=== PATIENT | female | born 1970 | race Caucasian/White ===

== ENCOUNTER 2018-04-11 07:35 | Outpatient (CLI) | payer OTHER, SELFPAY ==
[2018-04-11 08:09] LABS: Hemoglobin A1C 8.4 % (4.5-6.2)
[2018-04-11 08:32] LABS: ALT 43 U/L (12-78); AST 28 U/L (15-37); Albumin 3.4 g/dL (3.4-5.0); Alkaline Phosphatase 109 U/L (46-116); BUN 14 mg/dL (7-18); Bilirubin, Total 0.3 mg/dL (0.2-1.0); CREATININE 0.88 mg/dL (0.55-1.02); Calcium 8.9 mg/dL (8.5-10.1); Chloride 98 mmol/L (98-107); Glucose 243 mg/dL (70-100); Total Protein 7.5 g/dL (6.4-8.2)
[2018-04-11 08:52] LABS: Potassium 4.1 mmol/L (3.5-5.1); Sodium 135 mmol/L (136-145)
[2018-04-14 10:18] LABS: C-Peptide 6.6 ng/mL (1.1 - 4.4)
== END 2018-04-11 07:55 ==
PROVIDERS: PCP Family Medicine; Visit Provider Internal Medicine Endocrinology, Diabetes & Metabolism
DX: R73.9 Hyperglycemia, unspecified (principal)
CPT/HCPCS: 36415; 80053; 83036; 84681

== ENCOUNTER 2018-08-15 10:57 | Outpatient (CLI) | payer OTHER, SELFPAY ==
[2018-08-15 11:52] LABS: ALT 79 U/L (12-78); AST 50 U/L (15-37); Albumin 3.7 g/dL (3.4-5.0); Alkaline Phosphatase 113 U/L (46-116); Bilirubin, Direct 0.06 mg/dL (0.00-0.20); Bilirubin, Total 0.2 mg/dL (0.2-1.0); FREE T4 1.02 ng/dL (0.76-1.46); Glucose 228 mg/dL (70-100); TSH 3.98 uIU/mL (0.358-3.74); Total Protein 8.4 g/dL (6.4-8.2)
[2018-08-15 20:46] LABS: T3,Free 2.6 pg/ml (2.8-5.3)
== END 2018-08-15 11:17 ==
PROVIDERS: PCP Family Medicine; Visit Provider Internal Medicine Endocrinology, Diabetes & Metabolism
DX: E11.65 Type 2 diabetes mellitus with hyperglycemia (principal); E06.3 Autoimmune thyroiditis
CPT/HCPCS: 36415; 80076; 82947; 84439; 84443; 84481

== ENCOUNTER 2019-03-03 00:51 | Outpatient (CLI) | payer OTHER, SELFPAY ==
--- NOTE | 2019-03-03 16:00 | DI.MAMMO_ITS ---
EXAM: MAMMO SCREENING CLINICAL HISTORY: Screening, Z12.31. TECHNIQUE: Mammograms were interpreted according to the usual protocol including computer analysis w [employer] CAD system, tomosynthesis and C-view imaging. FINDINGS: The breasts are of moderate radiodensity. There are no suspicious calcifications. When compared with the previous examination, there is a question of interval development of a small area of nodularity in the lateral left breast. IMPRESSION: There is a question regarding interval development of a small left breast nodule. Further assessment with left breast craniocaudad compression spot film and ultrasound is recommended. This is a catego ry 0 examination and this case gets a BI-RADS category B.
== END 2019-03-03 01:11 ==
PROVIDERS: PCP Family Medicine; Visit Provider Nurse Practitioner Family
DX: Z12.31 Encounter for screening mammogram for malignant neoplasm of breast (principal); R92.8 Other abnormal and inconclusive findings on diagnostic imaging of breast
CPT/HCPCS: 77063; 77067

== ENCOUNTER 2019-03-10 01:15 | Outpatient (CLI) | payer OTHER, SELFPAY ==
--- NOTE | 2019-03-10 10:17 | DI.US_ITS ---
EXAM: US BREAST LT LIMITED CLINICAL HISTORY: ? INTERVAL DEVELOPMENT SMALL AREA OF NODULARITY IN LT BREAST. TECHNIQUE: Ultrasound was performed using standard protocol. COMPARISON: FINDINGS: Left breast mass or cyst is demonstrated.
--- NOTE | 2019-03-10 12:48 | DI.MAMMO_ITS ---
EXAM: MG MAMMO SCREEN CALL BACK UNI CLINICAL HISTORY: ? INTERVAL DEVELOPMENT SMALL AREA OF NODULARITY IN LT BREAST. TECHNIQUE: Additional images are interpreted according to the usual protocol including tomosynthesis and 2D imaging. COMPARISON: No exams were available for comparison FINDINGS: Compression spot films of the left breast demonstrate no definite mass. The patient was further eval uated with an ultrasound examination. Please see the separate report. IMPRESSION: BI-RADS Cat 1 - Negative Breast Density - Category B - Scattered areas of fibroglandular density
== END 2019-03-10 01:35 ==
PROVIDERS: PCP Family Medicine; Visit Provider Nurse Practitioner Family
DX: Z12.31 Encounter for screening mammogram for malignant neoplasm of breast (principal); R92.8 Other abnormal and inconclusive findings on diagnostic imaging of breast; N64.59 Other signs and symptoms in breast
CPT/HCPCS: 76642; 77063; 77067

== ENCOUNTER 2019-12-15 12:20 | Emergency (ER) | payer OTHER, SELFPAY ==
[2019-12-15] VITALS (25 sets, daily range): BP systolic 115–149; BP diastolic 74–93; PULSE 81–106; RESP 16; TEMP 36.4–36.7; O2SAT 94–98
--- NOTE | 2019-12-15 12:45 | DI.US_ITS ---
EXAM: US ABDOMEN CLINICAL HISTORY: ruq abd pain with guarding TECHNIQUE: Ultrasound abdomen performed using standard protocol. COMPARISON: No exams were available for comparison FINDINGS: ABDOMINAL AORTA AND IVC: Visualized portions normal caliber. PANCREAS: Normal where visualized. LIVER: Diffuse increased echogenicity consistent with fatty infiltration. The liver is enlarged juan diego uring 23 cm. Hepatopedal flow in the Portal Vein. GALLBLADDER: No evidence of cholelithiasis. No evidence of wall thickening. No pericholecystic fluid identified. BILIARY SYSTEM: Common bile duct measures 5 mm. No intrahepatic biliary ductal dilation. FLORES'S SIGN: Negative. KIDNEYS: Kidneys are symmetric in size. No evidence of renal calculi. No evidence of hydronephrosis. No renal mass or cyst identified. SPLEEN: Not enlarged. ASCITES: None seen. IMPRESSION: Hepatomegaly and hepatic steatosis. Findings were discussed with the emergency department on the date of the examination. DATA REPOSITORY:
--- NOTE | 2019-12-15 12:58 | ED.GENADUL_ITS ---
Discharge Plan Disposition Patient Disposition: HOME Condition: Stable Discharge Details Chief Complaint: Abd Prob Clinical Impression: Abdominal pain, Ovarian cyst, Fatty liver, Hyperglycemia Primary Care Provider: Leonor Hendricks ED Provider: Tomás Plata Home Meds and New Rx's Prescriptions: Continued metformin 1,000 mg tablet 1,000 mg PO BID RF: 0 Jardiance 25 mg tablet 25 mg PO DAILY RF: 0 Victoza 3-Bull 0.6 mg/0.1 mL (18 mg/3 mL) pen injector 0.6 mg SC DAILY RF: 0 Tremfya 100 mg/mL auto-injector 100 mg SC Q8W RF: 0 norethindrone acetate 5 mg tablet 5 mg PO DAILY Qty: 90 RF: 3 escitalopram oxalate [Lexapro] 10 MG tablet 10 mg PO DAILY RF: 0 Discharge Instructions Instructions: Ovarian Cyst (ED), Abdominal Pain (ED), Diabetic Hyperglycemia (ED) Additional Instructions: Your blood sugar was elevated today. Be sure to discuss this with your doctor. Please take ibuprofen over the counter. Take 600mg by mouth every 6 hours as needed for pain. Please take acetaminophen (tylenol) - 650mg every 6 hours by mouth as needed for pain. Please contact your primary care physician to arrange follow-up. Return to the ER for any worsening or new concerning symptoms. Referrals: Leonor Hendricks [Primary Care Provider] - Discharge Data Discharge Date/Time-TO BE ENTERED AT DEPARTURE: 12/15/19 18:18 Medical Decision Making 1300?? 48-year-old female here with worsening abdominal pain since last night. Tender right upper quadrant with guarding. No urinary symptoms. Concern for acute cholecystitis. Consider pancreatitis. Bedside lrrdi-gh-azid ultrasound performed by me and shows dilated gallbladder with no signs of stone. Plan to obtain official diagnostic abdominal ultrasound. We will check labs including LFTs and lipase. We will administer IV fluid bolus and Dilaudid 1 mg IV. --Labs reviewed and nondiagnostic. Ultrasound of the abdomen interpreted by radiology: Fatty liver, no acute cholecystitis. CT the abdomen pelvis interpreted by radiology:IMPRESSION: 1. Hepatomegaly and hepatic steatosis. 2. Bilateral ovarian cysts. 3. The findings were discussed with the emergency department on the date of the examination. Patient reassessed and pain improved. All results were discussed with the patient. Patient was encouraged to follow-up with her primary care physician. Disposition decision was made weighing the risks and benefits of hospitalization versus outpatient treatment, the risk for further decompensation, and the patient's wishes. The patient was stable and requested discharge. Prior to discharge, my usual and customary return precautions were reviewed with the patient - this included follow-up instructions and reason to return to the emergency department if condition worsens, does not improve as expected, or other new concerns arise. HPI General Mode of arrival: ambulatory . Date/Time Provider Initiated Documentation: 12/15/19 12:29 . Limitations to Documentation: no limitations . Information obtained by: patient . HPI Narrative: 48-year-old female with prior history of Misha's thyroiditis, psoriasis, presents with chief complaint of abdominal pain. Pain is localized to right upper quadrant and radiates to flank. Pain is severe. Worse with deep breath. Pain started last night and has worsened. Initially was described as an ache and now sharp. Patient denies similar pain in the past. No trauma. Related Data Home Medications Medication Instructions Recorded Confirmed escitalopram oxalate [Lexapro] 10 mg PO DAILY tab-cap 12/25/16 12/15/19 empagliflozin 25 mg tablet 25 mg PO DAILY 01/19/19 12/15/19 guselkumab 100 mg/mL subcutaneous 100 mg SC Q8W 01/19/19 12/15/19 auto-injector liraglutide 0.6 mg/0.1 mL (18 mg/3 0.6 mg SC DAILY 01/19/19 12/15/19 mL) subcutaneous pen injector metformin 1,000 mg tablet 1,000 mg PO BID 01/19/19 12/15/19 norethindrone acetate 5 mg tablet 5 mg PO DAILY #90 tab 01/19/19 12/15/19 Previous Rx's Medication Instructions Recorded norethindrone acetate 5 mg tablet 5 mg PO DAILY #90 tab 01/19/19 Allergies Allergy/AdvReac Type Severity Reaction Status Date / Time ustekinumab [From Stelara] AdvReac Intermediate tremor Verified 12/15/19 12:31 tachycardia General Stated Complaint: Abd Prob JEAN-PAUL: 3 Review of Systems All systems reviewed & are unremarkable except as noted in HPI and below Constitutional Constitutional: Denies fever(s) Gastrointestinal Gastrointestinal: Reports as per HPI, Reports diarrhea, Denies nausea and Denies vomiting [facility] Medical History Misha's thyroiditis Psoriasis Vaginal pain (Acute) 5 o'clock position left distal vaginal side wall. Rx with Premarin cream Family History Mother Hyperlipidemia Father Myocardial infarction Grandmother Myocardial infarction Social History Smoking/Tobacco Use Status: Former Tobacco Use Alcohol Intake: never Drug use: Never Substance use type: does not use Do you feel safe at home: Yes Do you feel safe in your relationship?: Yes History History 1 Para 1 Hx # Term Pregnancies Multiple births Hx # Pregnancies Ectopic pregnancies AB induced Hx Number of Living Children AB spontaneous Exam Const General: cooperative and uncomfortable Orientation: alert HENMT Mouth: moist mucous membranes Eyes Conjunctivae: normal conjunctivae Sclera: normal sclerae Neck Neck: trachea midline Resp Auscultation: clear to auscultation bilaterally, no rales, no rhonchi and no wheezes Cardio Jugular venous pressure: no JVD Rate: regular rate and not tachycardic Rhythm: regular rhythm GI Inspection: non-distended Palpation: soft, not firm, guarding in the RUQ, no masses, not rigid and tender in the RUQ Skin General skin exam: no rashes or lesions noted Neuro General: patient alert, patient awake and tone normal Extrem General: no edema Psych Appearance: grossly normal Mental Status: mental status grossly normal Course Vital Signs Vital signs: Vital Signs Temperature 36.6 C 12/15/19 12:27 Pulse 106 H 12/15/19 12:27 Respiratory Rate 16 12/15/19 12:27 Pulse Oximetry 98 12/15/19 12:27 Temperature 36.6 C 12/15/19 12:27 Temperature Source Tympanic 12/15/19 12:27 Pulse 106 H 12/15/19 12:27 Respiratory Rate 16 12/15/19 12:27 Blood Pressure Position Sitting 12/15/19 12:27 Pulse Oximetry 98 12/15/19 12:27 Oxygen Delivery Method Room Air 12/15/19 12:27 Oxygen Flow Rate 0 12/15/19 12:27 Pain Level 9 12/15/19 12:27
[2019-12-15 13:00] LABS: Abs Immature Grans 0.06 k/cumm (0.0-0.09); Absolute Basophil Count 0.04 k/cumm (0.0-0.2); Absolute Eosinophil Count 0.09 k/cumm (0.0-0.7); Absolute Lymphocyte Count 3.22 k/cumm (1.2-3.4); Absolute Monocyte Count 0.66 k/cumm (0.11-0.7); Absolute Neutrophil Count 6.71 k/cumm (1.2-6.7); Basophils % 0.4; Eosinophils % 0.8; HCT 45.5 % (36.0-46.0); HGB 15.3 g/dL (12.0-15.5); Immature Grans % 0.6 %; Lymphocytes % 29.9; Mean Corp. HGB Concentration 33.6 g/dL (32.0-36.0); Mean Corpuscular Hemoglobin 30.2 pg (27.0-33.0); Mean Corpuscular Volume 89.7 fL (80-95); Mean Platelet Volume 11.7 fL (8.0-11.0); Monocytes % 6.1; Neutrophils % 62.2; Platelet Count 258 x1000/uL (130-400); RBC 5.07 m/cumm (4.00-5.20); RBC Distribution Width 14.1 % (11.7-14.6); White Blood Cell Count 10.78 k/cumm (4.4-10.8)
[2019-12-15] MEDS: HYDROmorphone 2 MG/ML VIAL 1 MG IVP (13:01)
[2019-12-15 13:03] LABS: Bilirubin Negative (Negative); Blood Trace-intact (Negative); Clarity Clear (Clear); Glucose 500 mg/dL (Negative); Ketones Negative (Negative); Leukocyte Esterase Trace (Negative); Nitrite Negative (Negative); Urobilinogen 0.2 EU/dL (Up TO 0.2); pH 5.5 (5-8)
[2019-12-15] MEDS: Lactated Ringers 1,000 ML 1000 ML IV (13:04)
[2019-12-15 13:11] LABS: Alkaline Phosphatase 103 U/L (46-116); Anion Gap 11.5 mmol/L (3-11); BUN 11 mg/dL (7-18); Bilirubin, Total 0.3 mg/dL (0.2-1.0); CO2 24.5 mmol/L (21.0-32.0); CREATININE 0.79 mg/dL (0.55-1.02); Calcium 9.4 mg/dL (8.5-10.1); Chloride 96 mmol/L (98-107); Glucose 181 mg/dL (74-106); Lipase 273 U/L (73-393); Potassium 3.7 mmol/L (3.5-5.1); Sodium 132 mmol/L (136-145); Total Protein 8.8 g/dL (6.4-8.2)
[2019-12-15 13:17] LABS: C & S Indicated? No/Sq. Contamination
[2019-12-15 13:30] LABS: AST 16 U/L (15-37)
[2019-12-15 13:58] LABS: ALT 43 U/L (14-59)
[2019-12-15] MEDS: Normal Saline - Diluent 50 ML VIAL IV (15:35)
[2019-12-15] MEDS: Omnipaque 350 MG/ML 100 ML BTL IJ (15:36)
--- NOTE | 2019-12-15 15:37 | DI.CT_ITS ---
EXAM: CT ABDOMEN PELVIS W CLINICAL HISTORY: rt sided abd pain TECHNIQUE: Imaging Protocol: Axial computed tomography images with coronal and sagittal reformatted images were created and reviewed CONTRAST MATERIAL: Intravenous: Omnipaque 350 Contrast volume:100 mL Oral: No COMPARISON: CT ABD PELVIS WITH CONTRAST from 08/06/2016 FINDINGS: ABDOMEN: Lung Bases: Normal where visualized. Liver: Fatty infiltration. Enlarged liver measuring 25 cm in length. No measurable mass. Portal, Superior Mesenteric, and Splenic Veins: Unremarkable. Gallbladder and Biliary Tract: No radiodense calculus or dilation. Pancreas: Normal density, no abnormal calcifications or inflammatory process. Spleen: Normal. Adrenals: No masses seen. Kidneys: Normal size, contour and axis. No radiodense stones or obstructive uropathy. No masses seen. Abdominal Aorta: Abdominal portion non-dilated. Mild atherosclerosis. Bowel: No obstruction or bowel wall thickening. No evidence of acute appendicitis. Peritoneal Cavity: No ascites, collection or mesenteric inflammatory response. Lymph Nodes: Within normal limits. Bones: Mild degenerative changes. Soft Tissues: Unremarkable. PELVIS: Bladder: Symmetric distention, no gross wall thickening. Reproductive Organs: There is a 3 x 4.1 cm left ovarian cyst. There are right ovarian cysts. The la rgest measures 2.1 cm. Lymph Nodes: Within normal limits. Bones: Mild degenerative changes are present. IMPRESSION: 1. Hepatomegaly and hepatic steatosis. 2. Bilateral ovarian cysts. 3. The findings were discussed with the emergency department on the date of the examination. RADIATION DOSE DELIVERED: Total DLP DATA REPOSITORY: All CT scans at this facility are submitted to the National Radiology Data Registry (NRDR) Dose Index Registry (DIR) with the [employer] (ACR). RADIATION OPTIMIZATION: All CT scans at this facility use at least one of these dose optimization te chniques: automated exposure control; mA and/or kV adjustment per patient size (includes targeted exa ms where dose is matched to clinical indication); or iterative reconstruction.
[2019-12-15] MEDS: Ketorolac 30 MG/ML VIAL IVP (17:34)
[2019-12-15] MEDS: Normal Saline 500 ML 1000 ML IV (17:35)
== END 2019-12-15 18:18 | disposition home or self-care (01) ==
PROVIDERS: Emergency Provider Student in an Organized Health Care Education/Training Program; PCP Family Medicine
DX: R10.11 Right upper quadrant pain (principal); E11.65 Type 2 diabetes mellitus with hyperglycemia; N83.202 Unspecified ovarian cyst, left side; K76.0 Fatty (change of) liver, not elsewhere classified; Z79.84 Long term (current) use of oral hypoglycemic drugs
CPT/HCPCS: 36415; 80053; 83690; 96361; 96374; 96375; 99285; 74177; 76700; 81003; 81015; 85025; J1885; J3490

== ENCOUNTER 2020-03-28 00:46 | Outpatient (CLI) | payer OTHER, SELFPAY ==
--- NOTE | 2020-03-28 07:58 | DI.US_ITS ---
EXAM: US PELVIS TRANSVAGINAL CLINICAL HISTORY: increased vaginal bleeding,MENSTRUAL CHANGES,N92.6. TECHNIQUE: Transabdominal and transvaginal pelvic ultrasound was performed using standard protocol. COMPARISON: US PELVIS TRANSVAG from 10/23/[address] ABDOMEN PELVIS W from 12/15/2019 FINDINGS: KIDNEYS: Kidneys are symmetric in size. 6 mm echogenic focus in the right kidney which may represent a nonobstructing stone or vascular calcification. No evidence of hydronephrosis. No renal mass or cy st identified. Note is made of fatty infiltration of the liver. UTERUS: Position: Anteverted. Size: 8.0 long by 3.9 AP by 5.1 transverse cm Endometrium: 0.3 cm. Normal for patient's menstrual status. There is a 5 mm echogenic nodule within t he cervical endometrial canal. This may represent a mass or polyp. Myometrium: Unremarkable. Cervix: Multiple cervical nabothian cysts. The largest measures 1.6 cm in diameter. OVARIES: Right: 3 x 2.8 x 1.8 cm Cyst or mass: Small follicular cyst. Left: 2.6 x 1.6 x 1.7 cm Cyst or mass: None. DOPPLER: Color: Symmetric and uniform flow to both ovaries. No hyperemia. Duplex: Normal ovarian arterial waveforms visualized. CUL-DE-SAC: Free fluid: None. Other: None. IMPRESSION: 1. Echogenic focus in the superior aspect of the right kidney. This may represent a nonobstructing s tone or vascular calcification. 2. 5 mm echogenic nodule within the endometrial canal. This may represent a mass or polyp. 3. Unremarkable bilateral ovaries. 4. Hepatic steatosis. DATA REPOSITORY:
== END 2020-03-28 01:06 ==
PROVIDERS: PCP Family Medicine; Visit Provider Nurse Practitioner Family
DX: N93.8 Other specified abnormal uterine and vaginal bleeding (principal); K76.0 Fatty (change of) liver, not elsewhere classified
CPT/HCPCS: 76830; 76856

== ENCOUNTER 2020-04-04 01:14 | Outpatient (CLI) | payer OTHER, SELFPAY ==
--- NOTE | 2020-04-04 16:05 | DI.MAMMO_ITS ---
EXAM: MAMMO SCREENING CLINICAL HISTORY: screening,Z12.39 TECHNIQUE: Mammograms were interpreted according to the usual protocol including computer analysis w [employer] CAD system, tomosynthesis and C-view imaging. COMPARISON: 2014 through 2018 FINDINGS: The breasts are composed of scattered fibroglandular densities, Breast Density category B. No suspicious masses or suspicious microcalcifications are seen. No skin thickening or abnormal axillary lymph nodes are seen. There has been no significant change from prior exams. IMPRESSION: BI-RADS Category 1, Negative mammogram Yearly screening mammography is recommended. Breast Density - Category B, scattered fibroglandular densities. A negative radiographic report should not delay biopsy if a dominant or clinically suspicious mass is present. Up to ten percent of cancers are not identified on mammography. A negative report may reinforce clinical impression. Adenosis and dense breasts may obscure an underlying neoplasm. False positive reports average 6 to 10%. Patient will receive a letter notifying them of these results.
== END 2020-04-04 01:34 ==
PROVIDERS: PCP Family Medicine; Visit Provider Nurse Practitioner Family
DX: Z12.31 Encounter for screening mammogram for malignant neoplasm of breast (principal)
CPT/HCPCS: 77063; 77067

== ENCOUNTER 2020-04-15 02:00 | Outpatient (CLI) | payer OTHER, SELFPAY ==
[2020-04-15 09:07] LABS: Abs Immature Grans 0.12 10^3/uL (0.0-0.06); Absolute Basophil Count 0.09 10^3/uL (0.0-0.2); Absolute Eosinophil Count 0.22 10^3/uL (0.0-0.7); Absolute Lymphocyte Count 2.68 10^3/uL (1.2-3.4); Absolute Monocyte Count 0.59 10^3/uL (0.1-0.8); Absolute Neutrophil Count 6.89 10^3/uL (1.2-6.7); Basophils % 0.8; Eosinophils % 2.1; HCT 41.7 % (36.0-46.0); HGB 14.6 g/dL (11.2-15.7); Immature Grans % 1.1; Lymphocytes % 25.3; MCH 31.5 pg (27.0-33.0); MCV 89.9 fL (80-95); Monocytes % 5.6; Neutrophils % 65.1; Nucleated RBC 0 %; Platelet Count 164 10^3/uL (130-400); RBC 4.64 10^6/uL (3.93-5.22); RDW 13.2 % (11.7-14.6); RDW-SD 43.8 fL; WBC 10.59 10^3/uL (4.4-10.8)
[2020-04-15 09:57] LABS: Glucose 362 mg/dL (74-106)
== END 2020-04-15 02:20 ==
PROVIDERS: PCP Family Medicine; Visit Provider Obstetrics & Gynecology
DX: N93.8 Other specified abnormal uterine and vaginal bleeding (principal); Z01.818 Encounter for other preprocedural examination
CPT/HCPCS: 36415; 82947; 86850; 86900; 86901; 85025

== ENCOUNTER 2020-04-15 02:24 | Outpatient (CLI) | payer OTHER, SELFPAY ==
[2020-04-18 10:00] LABS: SARS-CoV-2 RNA Not Detected (NotDetected); SARS-CoV-2 RNA Source Nasal/Nares
== END 2020-04-15 02:44 ==
PROVIDERS: PCP Family Medicine; Visit Provider Obstetrics & Gynecology
DX: Z11.59 Encounter for screening for other viral diseases (principal); Z01.818 Encounter for other preprocedural examination
CPT/HCPCS: U0003

== ENCOUNTER 2020-04-20 06:13 | Day surgery (SDC) | payer OTHER, SELFPAY ==
[2020-04-20 06:38] VITALS: BP 121/75; PULSE 101; RESP 20; TEMP 36.3; O2SAT 98
[2020-04-20] MEDS: Lactated Ringers 1,000 ML 125 ML IV (07:00)
--- NOTE | 2020-04-20 10:05 | NUR.NOTE ---
Pt. procedure cancelled today by anesthesia and Dr. Miramontes. Pt. reported she had a cardiac work up at [facility] last week. Pt. reported to nursing that work up was normal. Pt. later told Anastacia Mac CRNA, that work up was normal but she had a stress test scheduled for later this month. instructed pt. to complete her stress test and then contact her to reschedule procedure. Pt. agreeable.Nursing Note:
== END 2020-04-20 06:33 ==
PROVIDERS: PCP Family Medicine; Visit Provider Obstetrics & Gynecology
DX: N93.8 Other specified abnormal uterine and vaginal bleeding (principal); Z53.09 Procedure and treatment not carried out because of other contraindication
CPT/HCPCS: 81025

== ENCOUNTER 2020-04-22 11:51 | Outpatient (REF) | payer OTHER, SELFPAY ==
[2020-04-28 13:51] LABS: Hemoglobin A1C 9.5 % (<5.7)
== END 2020-04-22 12:11 ==
LOC: NCHCN 11:51
PROVIDERS: PCP Family Medicine; Visit Provider Family Medicine
DX: E11.9 Type 2 diabetes mellitus without complications (principal)
CPT/HCPCS: 83036

== ENCOUNTER 2020-06-27 07:12 | Outpatient (CLI) | payer OTHER, SELFPAY ==
[2020-06-27 15:03] LABS: Abs Immature Grans 0.06 10^3/uL (0.0-0.06); Absolute Basophil Count 0.08 10^3/uL (0.0-0.2); Absolute Eosinophil Count 0.21 10^3/uL (0.0-0.7); Absolute Lymphocyte Count 2.63 10^3/uL (1.2-3.4); Absolute Monocyte Count 0.57 10^3/uL (0.1-0.8); Absolute Neutrophil Count 6.38 10^3/uL (1.2-6.7); Basophils % 0.8; Eosinophils % 2.1; HCT 43.6 % (36.0-46.0); Immature Grans % 0.6; Lymphocytes % 26.5; MCH 30.7 pg (27.0-33.0); MCHC 34.4 % (32.0-36.0); MCV 89.2 fL (80-95); MPV 11.3 fL (8.0-11.0); Monocytes % 5.7; Neutrophils % 64.3; Nucleated RBC 0 %; Platelet Count 221 10^3/uL (130-400); RBC 4.89 10^6/uL (3.93-5.22); RDW 12.9 % (11.7-14.6); RDW-SD 42.5 fL; WBC 9.93 10^3/uL (4.4-10.8)
[2020-06-27 15:54] LABS: Glucose 386 mg/dL (74-106)
== END 2020-06-27 07:32 ==
PROVIDERS: PCP Family Medicine; Visit Provider Obstetrics & Gynecology
DX: R93.5 Abnormal findings on diagnostic imaging of other abdominal regions, including retroperitoneum (principal); N93.8 Other specified abnormal uterine and vaginal bleeding; Z01.818 Encounter for other preprocedural examination; Z01.812 Encounter for preprocedural laboratory examination
CPT/HCPCS: 36415; 82947; 86850; 86900; 86901; 85025

== ENCOUNTER 2020-06-27 15:22 | Outpatient (CLI) | payer OTHER, SELFPAY ==
[2020-06-28 21:46] LABS: COVID-19 RT-PCR Result NEGATIVE (Negative)
== END 2020-06-27 15:42 ==
PROVIDERS: PCP Family Medicine; Visit Provider Obstetrics & Gynecology
DX: Z11.52 Encounter for screening for COVID-19 (principal); Z01.818 Encounter for other preprocedural examination
CPT/HCPCS: U0003

== ENCOUNTER 2020-06-30 11:18 | Day surgery (SDC) | payer OTHER, SELFPAY ==
[2020-06-30 11:37] VITALS: BP 123/83; PULSE 94; RESP 16; TEMP 36.7; O2SAT 95
[2020-06-30] MEDS: Lactated Ringers 1,000 ML 125 ML IV (11:55)
--- NOTE | 2020-06-30 13:30 | ENDO_PTH ---
PATIENT: Jesika Ryan LOC: [facility] U#:[id number] AGE/SX: 49/F ROOM: RE06/30/[address]: Fely Miramontes DO : 1970 BED: DIS: 06/30/2020 SPEC #: [id number] RECD: 06/30/20 15:21 STATUS: JERED REQ #: [id number] RUBEN: 06/30/20 13:[address]: Fely Miramontes DEPT: Surgical Specimen RECD BY: Josee Olguin ENTERED: 06/30/20 15:22 SP TYPE: Endo OTHR DR: Leonor Hendricks Tissues: 1 - ENDOCERVICAL BX/CURRETTE 2 - ENDOMETRIUM BX/CURRETTE Procedures: GROSS AND MICRO LEVEL 4 Comments: [id number]
--- NOTE | 2020-06-30 13:41 | W.PM.OP ---
Date of service: 06/30/20 Time of Service: 13:41 Operative Note Operative Note DATE OF PROCEDURE: 06/30/20 PRE-OP DIAGNOSIS: Abnormal thickening of the endocervix on ultrasound PROCEDURE: Hysteroscopy with dilation and curettage SURGEON: Fely Miramontes ANESTHESIA: CHEMO ESTIMATED BLOOD LOSS: 10 PATHOLOGY: other (1. Endocervical curetting 2. Endometrial curetting) COMPLICATIONS: None Patient was transported to: PACU Patient's condition: stable Indications: Abnormal finding on ultrasound consistent with endocervical polyp, 5 mm Findings: As above with atrophic endometrium Procedure Description: Patient 49-year-old female with abnormal ultrasound finding. She also has some irregular bleeding. Risk benefits and alternatives of surgical exploration with hysteroscopy dilation and curettage were explained patient informed consent was obtained. She is taken the operating suite with an IV running where she was placed in the dorsal supine position and anesthesia administered via monitored anesthesia care. She was prepped and draped in usual sterile fashion exam under anesthesia revealed the uterus is midline and mobile without evidence of mass. Speculum was placed into the posterior vaginal vault and single-tooth tenaculum used to grasp the anterior lip of cervix. Cervical os dilated the point that a 5 mm hysteroscope could be passed with ease. With normal saline installation the entire endometrium was inspected endometrial cavity was found to be smooth and regular there is a small polypoid lesion in the endocervical canal which appeared benign. At this point both endometrial and endocervical curettage was performed for scant tissue. At this point procedure was terminated and all instrumentation was removed. She was returned to dorsal supine position, awoken anesthesia, and was taken to recovery room in stable condition. Findings: Thin endometrium, minimal polypoid structure in the endocervical canal EBL: 10 mL Complications: None apparent
[2020-06-30 14:22] VITALS: BP 117/75; PULSE 87; RESP 16; TEMP 36.6; O2SAT 97
== END 2020-06-30 14:26 | disposition home or self-care (01) ==
PROVIDERS: PCP Family Medicine; Visit Provider Obstetrics & Gynecology
PROC: 0UDB8ZZ Extraction of Endometrium, Via Natural or Artificial Opening Endoscopic (ICD-10-PCS; CPT 58558; principal; 2020-06-30 13:00)
DX: R93.89 Abnormal findings on diagnostic imaging of other specified body structures (principal); N85.8 Other specified noninflammatory disorders of uterus; N93.8 Other specified abnormal uterine and vaginal bleeding; N84.0 Polyp of corpus uteri
CPT/HCPCS: 58558; 81025; 88305; J1885; J2001; J2704; J3010

== ENCOUNTER 2020-10-05 20:58 | Outpatient (REF) | payer OTHER, SELFPAY ==
[2020-10-05 21:46] LABS: HCT 40.9 % (36.0-46.0); HGB 14.5 g/dL (11.2-15.7); MCH 31.7 pg (27.0-33.0); MCHC 35.5 % (32.0-36.0); MCV 89.3 fL (80-95); MPV 14.4 fL (8.0-11.0); Nucleated RBC 0 %; RBC 4.58 10^6/uL (3.93-5.22); RDW 12.6 % (11.7-14.6); RDW-SD 41.1 fL; WBC 7.47 10^3/uL (4.4-10.8)
[2020-10-05 22:02] LABS: Hemoglobin A1C 8.9 % (<5.7)
[2020-10-05 22:03] LABS: Albumin 3.5 g/dL (3.4-5.0); Alkaline Phosphatase 111 U/L (46-116); Anion Gap 13.6 mmol/L (3-11); BUN 15 mg/dL (7-18); Bilirubin, Total 0.4 mg/dL (0.2-1.0); C-Reactive Protein 3.04 mg/dL (0.0-0.3); CO2 24.4 mmol/L (21.0-32.0); CREATININE 0.8 mg/dL (0.55-1.02); Calcium 8.5 mg/dL (8.5-10.1); Chloride 98 mmol/L (98-107); FREE T4 0.74 ng/dL (0.76-1.46); Glucose 242 mg/dL (74-106); Potassium 3.7 mmol/L (3.5-5.1); Sodium 136 mmol/L (136-145); TSH (W/Ref FT4) 3.95 uIU/mL (0.36-3.74)
[2020-10-05 22:33] LABS: Cholesterol 291 mg/dL (<200); HDL Cholesterol 18 mg/dL (40-60); Total Protein 7.7 g/dL (6.4-8.2)
[2020-10-05 22:38] LABS: Absolute Basophil Count 0.07 10^3/uL (0.0-0.2); Absolute Eosinophil Count 0.22 10^3/uL (0.0-0.7); Absolute Lymphocyte Count 2.39 10^3/uL (1.2-3.4); Absolute Monocyte Count 0.45 10^3/uL (0.1-0.8); Absolute Neutrophil Count 4.33 10^3/uL (1.2-6.7); Atypical Lymphocytes % 2
[2020-10-05 22:39] LABS: Diff Comment Manual Differential; Platelet Count 13 10^3/uL (130-400); RBC Morphology Normal
[2020-10-05 22:45] LABS: LDL CHOLESTEROL 45 mg/dL (<100)
[2020-10-05 22:53] LABS: Triglyceride 2606 mg/dL (<150)
[2020-10-05 23:01] LABS: ALT 41 U/L (14-59); AST 34 U/L (15-37)
[2020-10-06 17:05] LABS: T3,Free 3.2 pg/mL (2.8-5.3)
== END 2020-10-05 20:59 | disposition home or self-care (01) ==
LOC: NCHCN 20:58
PROVIDERS: PCP Family Medicine; Visit Provider Family Medicine
DX: E78.5 Hyperlipidemia, unspecified (principal); E11.9 Type 2 diabetes mellitus without complications; E06.3 Autoimmune thyroiditis
CPT/HCPCS: 80053; 80061; 83721; 83036; 84439; 84443; 84481; 85025; 86140

== ENCOUNTER 2020-10-06 08:20 | Emergency (ER) | payer OTHER, SELFPAY ==
[2020-10-06] VITALS (12 sets, daily range): BP systolic 121–147; BP diastolic 74–89; PULSE 91–105; RESP 12–21; TEMP 36.4–36.6; O2SAT 96–98
--- NOTE | 2020-10-06 08:15 | RT.EKG_ITS ---
APPROVED REPORT Exam: Resting ECG Patient Location: E HR:99 bpm ECG Measurements Heart Rate 99 AXIS NM 180 P 63 QRSd 87 QRS 70 QT 358 T 46 QTc 459 Conclusion Sinus rhythm...normal P axis, V-rate 60- 99 Low voltage with right axis deviation...low voltage, RAD I have reviewed and interpreted ECG and agree with software generated interpretation.
--- NOTE | 2020-10-06 09:03 | ED.GENADUL_ITS ---
Discharge Plan Disposition Patient Disposition: HOME Condition: Stable Discharge Details Clinical Impression: Thrombocytopenia Primary Care Provider: Leonor Hendricks ED Provider: Carlos Silva Home Meds and New Rx's Prescriptions: Continued metformin 1,000 mg tablet 1,000 mg PO BID RF: 0 Jardiance 25 mg tablet 25 mg PO HS RF: 0 Victoza 3-Bull 0.6 mg/0.1 mL (18 mg/3 mL) pen injector 1.8 mg SC DAILY RF: 0 Tremfya 100 mg/mL auto-injector 100 mg SC Q8W RF: 0 escitalopram oxalate [Lexapro] 10 MG tablet 10 mg PO HS RF: 0 norethindrone acetate 5 mg tablet RF: 0 Discharge Instructions Instructions: Thrombocytopenia (ED) Additional Instructions: Laboratory values today reveal that your platelet count has gone from 15, now up to 29. I personally spoke with hematology at [facility], Dr. Mcduffie, regarding the presentation and case. Recommendations now are to not initiate any platelet infusion or steroid therapy. Recommend close follow-up. I then personally sp viktor with your primary care provider, Dr. Hendricks. She is aware of your presentation today, laboratory values, negative head CT, and my consultation with hematology. She will set you up for repeat blood draw here at our facility on Saturday to recheck your platelet count and outpatient reevaluation. As we discussed please watch for new or worsening symptoms and return to the ER for any concerns. Medical Decision Making 49-year-old female with past medical history of diabetes, thyroid disease, obesity, psoriasis. She is presenting for a platelet count of 15 that was found yesterday during routine laboratory blood draw. Clinically she appears well, nontoxic, hemodynamically stable. Will obtain IV access, obtain CBC, CMP, type and screen, coags, and obtain hematology consultation from [facility]. We will also obtain CT imaging of her head given her thrombocytopenia and headache although she appears well, neurologically intact. Laboratory values reveal her platelet count has come up to 29, laboratory values otherwise fairly unremarkable. Head CT negative. I was able to discuss the case with Dr. Mcduffie, hematology at [facility]. He recommended adding on an LDH and haptoglobin. He feels as though this is likely secondary to her recent antibiotic therapy. Given her presentation he does not believe that initiating platelet infusion or oral steroids is indicated. Typically infusion is not initiated until the patient is below 10 on the platelet count or actively symptomatic. Believes that discharge is reasonable with close outpatient follow-up. Recommend having platelet count checked in the next 48 hours. If improving then likely no need for hematology consultation additionally. If platelet count is staying the same then can certainly add on oral dexamethasone 40 mg for the next 4 days. If patient is becoming symptomatic or platelet count is decreasing then likely hematology involvement will be necessary. I then discussed the patient's presentation and my consultation with hematology with Dr. Hendricks. She is comfortable with this plan, her office will reach out to the patient with her today except an outpatient blood draw on Saturday and outpatient reevaluation. Patient was made aware of this plan, she is comfortable and has no additional questions or concerns. She was encouraged to return to the ER for new or worsening symptoms. We also discussed that with such a low platelet count mild trauma could and in hemorrhaging and recommended evaluation for further falls, low speed MVA's, etc. Medical Records Medical records reviewed: Yes I reviewed the patient's medical records. Imaging Data Radiologic Study: Attestation: I personally reviewed and interpreted this imaging study as follows: Imaging: CT Scan Radiologist's impression: CT imaging of the head read by radiology as no acute intracranial findings. Lab Data Lab results reviewed: Yes I reviewed the patient's lab results. Labs: Laboratory Tests Range/Units 10/06/20 10/06/20 10/06/20 09:07 09:07 09:07 WBC (4.4-10.8) 10^3/uL 6.93 RBC (3.93-5.22) 10^6/uL 4.91 Hgb (11.2-15.7) g/dL 15.3 Hct (36.0-46.0) % 44.1 MCV (80-95) fL 89.8 MCH (27.0-33.0) pg 31.2 MCHC (32.0-36.0) % 34.7 RDW (11.7-14.6) % 12.8 Plt Count (130-400) 10^3/uL 29 L* D MPV (8.0-11.0) fL 13.1 H Immature Gran % 1.9 Neutrophils % 50.6 Lymphocytes % 37.4 Monocytes % 5.6 Eosinophils % 3.3 Basophils % 1.2 Nucleated RBC % % 0 Absolute Neutrophils (1.2-6.7) 10^3/uL 3.51 Absolute Lymphocytes (1.2-3.4) 10^3/uL 2.59 Absolute Monocytes (0.1-0.8) 10^3/uL 0.39 Absolute Eosinophils (0.0-0.7) 10^3/uL 0.23 Absolute Basophils (0.0-0.2) 10^3/uL 0.08 PT (9.3-11.0) sec 9.3 INR (0.9-1.1) 0.9 APTT (21.0-27.5) sec 21.4 Sodium (136-145) mmol/L 134 L Potassium (3.5-5.1) mmol/L 3.6 Chloride (98-107) mmol/L 97 L Carbon Dioxide (21.0-32.0) mmol/L 21.0 Anion Gap (3-11) mmol/L 16.0 H BUN (7-18) mg/dL 14 Creatinine (0.55-1.02) mg/dL 0.8 Estimated GFR/1.73 m2 (mL/min/1.73m2) >= 60.00 Glucose (74-106) mg/dL 345 H D Calcium (8.5-10.1) mg/dL 9.1 Total Bilirubin (0.2-1.0) mg/dL 0.3 AST (15-37) U/L 25 ALT (14-59) U/L 52 Alkaline Phosphatase (46-116) U/L 117 H Lactate Dehydrogenase (81-234) U/L Total Protein (6.4-8.2) g/dL 8.2 Albumin (3.4-5.0) g/dL 3.6 Patient ABO/Rh Antibody Screen Range/Units 10/06/20 10/06/20 09:07 09:07 WBC (4.4-10.8) 10^3/uL RBC (3.93-5.22) 10^6/uL Hgb (11.2-15.7) g/dL Hct (36.0-46.0) % MCV (80-95) fL MCH (27.0-33.0) pg MCHC (32.0-36.0) % RDW (11.7-14.6) % Plt Count (130-400) 10^3/uL MPV (8.0-11.0) fL Immature Gran % Neutrophils % Lymphocytes % Monocytes % Eosinophils % Basophils % Nucleated RBC % % Absolute Neutrophils (1.2-6.7) 10^3/uL Absolute Lymphocytes (1.2-3.4) 10^3/uL Absolute Monocytes (0.1-0.8) 10^3/uL Absolute Eosinophils (0.0-0.7) 10^3/uL Absolute Basophils (0.0-0.2) 10^3/uL PT (9.3-11.0) sec INR (0.9-1.1) APTT (21.0-27.5) sec Sodium (136-145) mmol/L Potassium (3.5-5.1) mmol/L Chloride (98-107) mmol/L Carbon Dioxide (21.0-32.0) mmol/L Anion Gap (3-11) mmol/L BUN (7-18) mg/dL Creatinine (0.55-1.02) mg/dL Estimated GFR/1.73 m2 (mL/min/1.73m2) Glucose (74-106) mg/dL Calcium (8.5-10.1) mg/dL Total Bilirubin (0.2-1.0) mg/dL AST (15-37) U/L ALT (14-59) U/L Alkaline Phosphatase (46-116) U/L Lactate Dehydrogenase (81-234) U/L 160 Total Protein (6.4-8.2) g/dL Albumin (3.4-5.0) g/dL Patient ABO/Rh B Positive Antibody Screen Negative ECG Data Attestation: I personally reviewed and interpreted this ECG (s) as follows: Interpretation: Please see official report by Dr. Grace. Sinus rhythm, ventricular rate of 99. No STEMI. HPI General Mode of arrival: ambulatory . Date/Time Provider Initiated Documentation: 10/06/20 08:30 . Limitations to Documentation: no limitations . Information obtained by: patient . HPI Narrative: This is a 49-year-old female with a past medical history of psoriasis, diabetes, obesity, thyroid disease, presenting to the ER today at the request of her primary care provider as routine laboratory values yesterday revealed a platelet count of 15. Patient has been treated with Cipro on 09-13, clindamycin on 09-12, and Bactrim on 09-23 for a foot infection after stepping on a screw as well as a right lower quadrant abdominal cellulitis. She reports that she just finished up her antibiotics and her infections have resolved completely. She states that she developed a rash on her bilateral breasts, abdomen, lower legs over the past several days, this rash is without itching or pain. She subsequently had a dull, global, 5 out of 10 headache yesterday. Today she reports her headache is nearly resolved, now a 2 out of 10. Denies recent trauma. She denies visual changes, neck pain, chest pain, shortness of breath, back pain, abdominal pain, nausea, vomiting, black tarry stools, bright red blood in her stools, diarrhea, numbness, tingling, weakness. She does report that she developed sores or blisters in her mouth but those are also improving. She has no acute medical concerns or complaints. Reports that overall she feels pretty well. Has been taking her medications as directed. She states that she has not received any Covid vaccination. Related Data Home Medications Medication Instructions Recorded Confirmed escitalopram oxalate [Lexapro] 10 mg PO HS tab-cap 12/25/16 10/06/20 empagliflozin 25 mg tablet 25 mg PO HS 01/19/19 10/06/20 guselkumab 100 mg/mL subcutaneous 100 mg SC Q8W 01/19/19 10/06/20 auto-injector liraglutide 0.6 mg/0.1 mL (18 mg/3 1.8 mg SC DAILY 01/19/19 06/30/20 mL) subcutaneous pen injector metformin 1,000 mg tablet 1,000 mg PO BID 01/19/19 10/06/20 norethindrone acetate mg 10/06/20 10/06/20 Allergies Allergy/AdvReac Type Severity Reaction Status Date / Time ustekinumab [From Stelara] AdvReac Intermediate tremor Verified 10/06/20 09:14 tachycardia General Stated Complaint: GenMedical JEAN-PAUL: 3 Review of Systems Constitutional Constitutional: Denies fatigue, Denies fever(s), Reports headache(s) and Denies weakness Eyes Eyes: Denies change in vision ENT Ears, Nose, Mouth, and Throat: Reports headache(s) and Denies neck pain Cardiovascular Cardiovascular: Denies chest pain and Denies dyspnea Respiratory Respiratory: Denies cough and Denies dyspnea Gastrointestinal Gastrointestinal: Denies abdominal pain, Denies nausea and Denies vomiting Genitourinary Genitourinary: Denies hematuria Musculoskeletal Musculoskeletal: Denies back pain, Denies neck pain, Denies numbness and Denies tingling Integumentary/Breasts Skin/Breast: Reports rash Neurologic Neurologic: Reports headache(s), Denies numbness, Denies tingling and Denies weakness Endocrine Endocrine: Denies fatigue Hematologic/Lymphatic Hematologic/Lymphatic: Denies easy bleeding and Denies easy bruising PFSH Medical History Abnormal ultrasound of endometrium Diabetes mellitus Dysfunctional uterine bleeding Endocervical polyp Misha's thyroiditis Hx of sleep apnea Obesity Psoriasis Vaginal pain 5 o'clock position left distal vaginal side wall. Rx with Premarin cream Surgical History History of cardiac radiofrequency ablation pt. reports ablation 20 years ago for irregular heart beat. Hx of excision of dermoid cyst pt unsure what type but on L side of neck Family History Mother Hyperlipidemia Father Myocardial infarction Grandmother Myocardial infarction Social History Smoking/Tobacco Use Status: Former Tobacco Use Quit Date: 06/17/16 Smoking risk assessment performed?: Yes Alcohol Intake: never Drug use: Never Substance use type: does not use Do you feel safe at home: Yes Do you feel safe in your relationship?: Yes History History 1 Para 1 Hx # Term Pregnancies Multiple births Hx # Pregnancies Ectopic pregnancies AB induced Hx Number of Living Children AB spontaneous Exam Const General: cooperative, healthy appearing, comfortable and no acute distress Orientation: alert, awake and oriented x3 HENMT Head: normal to inspection, normocephalic and atraumatic Face and sinus: normal facial exam Mouth: moist mucous membranes Throat: posterior oropharynx normal Eyes General: appearance normal, both eyes and all related structures Conjunctivae: conjunctivae normal Neck Neck: normal visual inspection, full ROM, trachea midline and supple Resp Effort & Inspection: normal respiratory effort and able to speak in complete sentences Auscultation: clear to auscultation bilaterally Cardio Rate: regular rate (Heart rate in the 90s) Rhythm: regular rhythm GI Palpation: soft and nontender Back/Spine/Pelvis Back: no CVA tenderness and No back tenderness Skin Other: Patchy, scant petechiae rash that is nonblanchable. Highest distribution is that of her bilateral breast, abdomen, bilateral lower extremities. Without tenderness, warmth, signs of infection. Skin is intact Neuro General: patient alert, patient awake, patient oriented x3, moves all extremities and no focal motor deficits Cognition: normal cognition Speech: speech normal Gait: normal gait Motor: muscle tone normal throughout Sensory Exam: no sensory deficits noted Extrem General: full ROM, capillary refill normal, no pedal edema and no calf tenderness Psych Appearance: grossly normal Mental Status: mental status grossly normal Course Vital Signs Vital signs: Vital Signs Temperature 36.6 C 10/06/20 08:34 Pulse 102 H 10/06/20 08:34 Respiratory Rate 17 10/06/20 08:34 Blood Pressure 144/75 H 10/06/20 08:34 Pulse Oximetry 97 10/06/20 08:34 Temperature 36.6 C 10/06/20 08:34 Temperature Source Skin 10/06/20 08:34 Pulse 102 H 10/06/20 08:34 Respiratory Rate 17 10/06/20 08:34 Blood Pressure 144/75 H 10/06/20 08:34 Blood Pressure Position Sitting 10/06/20 08:34 Pulse Oximetry 97 10/06/20 08:34 Oxygen Delivery Method Room Air 10/06/20 08:34 Oxygen Flow Rate 0 10/06/20 08:34 Pain Level 5 10/06/20 08:34
[2020-10-06 09:17] LABS: Abs Immature Grans 0.13 10^3/uL (0.0-0.06); Absolute Basophil Count 0.08 10^3/uL (0.0-0.2); Absolute Eosinophil Count 0.23 10^3/uL (0.0-0.7); Absolute Lymphocyte Count 2.59 10^3/uL (1.2-3.4); Absolute Monocyte Count 0.39 10^3/uL (0.1-0.8); Absolute Neutrophil Count 3.51 10^3/uL (1.2-6.7); Basophils % 1.2; Eosinophils % 3.3; HCT 44.1 % (36.0-46.0); HGB 15.3 g/dL (11.2-15.7); Immature Grans % 1.9; Lymphocytes % 37.4; MCH 31.2 pg (27.0-33.0); MCHC 34.7 % (32.0-36.0); MCV 89.8 fL (80-95); MPV 13.1 fL (8.0-11.0); Monocytes % 5.6; Neutrophils % 50.6; Nucleated RBC 0 %; RBC 4.91 10^6/uL (3.93-5.22); RDW 12.8 % (11.7-14.6); RDW-SD 42.4 fL; WBC 6.93 10^3/uL (4.4-10.8)
--- NOTE | 2020-10-06 09:30 | DI.CT_ITS ---
EXAM: CT HEAD WO CLINICAL HISTORY: Thrombocytopenia, headache. TECHNIQUE: Imaging Protocol: Axial computed tomography images with coronal and sagittal reformatted images were created and reviewed COMPARISON: No exams were available for comparison FINDINGS: There are no skull fractures nor fluid in the visualized paranasal sinuses. The frontal sinuses are not developed. There is no evidence of intracranial hemorrhage, mass effect, or shift of midline structures. There are no extra-axial fluid collections. The ventricles are not enlarged or shifted and there is no blo od within the ventricular system nor within the basal cisterns. IMPRESSION: No acute intracranial findings on this noninfused CT scan of the brain. RADIATION DOSE DELIVERED: 829.65mGy.cm Total DLP DATA REPOSITORY: All CT scans at this facility are submitted to the National Radiology Data Registry (NRDR) Dose Index Registry (DIR) with the [employer] ([employer]). RADIATION OPTIMIZATION: All CT scans at this facility use at least one of these dose optimization te chniques: automated exposure control; mA and/or kV adjustment per patient size (includes targeted exa ms where dose is matched to clinical indication); or iterative reconstruction.
--- NOTE | 2020-10-06 09:39 | NUR.NOTE ---
[address]39 to [place] via [facility].
[2020-10-06 09:43] LABS: Platelet Count 29 10^3/uL (130-400)
[2020-10-06 10:02] LABS: INR 0.9 (0.9-1.1); PTT Activated 21.4 sec (21.0-27.5); Prothrombin Time 9.3 sec (9.3-11.0)
[2020-10-06 10:20] LABS: Albumin 3.6 g/dL (3.4-5.0); Alkaline Phosphatase 117 U/L (46-116); BUN 14 mg/dL (7-18); Bilirubin, Total 0.3 mg/dL (0.2-1.0); CREATININE 0.8 mg/dL (0.55-1.02); Calcium 9.1 mg/dL (8.5-10.1); Chloride 97 mmol/L (98-107); Glucose 345 mg/dL (74-106); Potassium 3.6 mmol/L (3.5-5.1); Total Protein 8.2 g/dL (6.4-8.2)
[2020-10-06 10:38] LABS: Sodium 134 mmol/L (136-145)
[2020-10-06 10:45] LABS: LDH 160 U/L (81-234)
[2020-10-06 11:08] LABS: ALT 52 U/L (14-59)
[2020-10-06 11:10] LABS: AST 25 U/L (15-37)
--- NOTE | 2020-10-07 14:08 | NUR.NOTE ---
Nursing Note: Per lab this morning, [facility] canceled the haptoglobin because it was lipemic and the specimen cannot be that. CORNEL Cage is aware. Temitope Whelan
== END 2020-10-06 11:23 | disposition home or self-care (01) ==
PROVIDERS: Emergency Provider Physician Assistant; PCP Family Medicine
DX: D69.6 Thrombocytopenia, unspecified (principal); R51.9 Headache, unspecified
CPT/HCPCS: 80053; 86850; 86900; 86901; 93005; 99284; 70450; 83010; 83615; 85025; 85610; 85730; 93010

== ENCOUNTER 2020-10-10 11:26 | Outpatient (REF) | payer OTHER, SELFPAY ==
[2020-10-10 13:32] LABS: Abs Immature Grans 0.14 10^3/uL (0.0-0.06); Absolute Eosinophil Count 0.32 10^3/uL (0.0-0.7); Absolute Lymphocyte Count 3.05 10^3/uL (1.2-3.4); Absolute Monocyte Count 0.63 10^3/uL (0.1-0.8); Absolute Neutrophil Count 6.31 10^3/uL (1.2-6.7); Basophils % 0.9; HCT 42.7 % (36.0-46.0); HGB 14.6 g/dL (11.2-15.7); Immature Grans % 1.3; Lymphocytes % 28.9; MCH 30.7 pg (27.0-33.0); MCHC 34.2 % (32.0-36.0); MCV 89.7 fL (80-95); MPV 12.6 fL (8.0-11.0); Neutrophils % 59.9; Nucleated RBC 0 %; Platelet Count 312 10^3/uL (130-400); RBC 4.76 10^6/uL (3.93-5.22); RDW 13.1 % (11.7-14.6); RDW-SD 43.1 fL; WBC 10.55 10^3/uL (4.4-10.8)
== END 2020-10-10 11:27 | disposition home or self-care (01) ==
LOC: NCHCN 11:26
PROVIDERS: PCP Family Medicine; Visit Provider Family Medicine
DX: D69.6 Thrombocytopenia, unspecified (principal)
CPT/HCPCS: 85025

== ENCOUNTER 2020-10-14 02:15 | Outpatient (CLI) | payer OTHER, SELFPAY ==
[2020-10-14 11:37] LABS: Hemoglobin A1C 8.9 % (<5.7)
[2020-10-14 11:47] LABS: ALT 45 U/L (14-59); Albumin 3.7 g/dL (3.4-5.0); Alkaline Phosphatase 86 U/L (46-116); BUN 13 mg/dL (7-18); Bilirubin, Total 0.3 mg/dL (0.2-1.0); CREATININE 0.7 mg/dL (0.55-1.02); Calcium 9.4 mg/dL (8.5-10.1); Chloride 100 mmol/L (98-107); Cholesterol 292 mg/dL (<200); Glucose 185 mg/dL (74-106); HDL Cholesterol 30 mg/dL (40-60); Potassium 4.2 mmol/L (3.5-5.1); Sodium 138 mmol/L (136-145); TSH 3.48 uIU/mL (0.36-3.74); Total Protein 7.6 g/dL (6.4-8.2)
[2020-10-14 11:58] LABS: Triglyceride 1535 mg/dL (<150)
[2020-10-14 12:52] LABS: AST 18 U/L (15-37)
[2020-10-14 13:56] LABS: LDL CHOLESTEROL 85 mg/dL (<100)
== END 2020-10-14 02:16 | disposition home or self-care (01) ==
LOC: LBO 02:16
PROVIDERS: PCP Family Medicine; Visit Provider Internal Medicine Endocrinology, Diabetes & Metabolism
DX: E11.9 Type 2 diabetes mellitus without complications (principal); E78.1 Pure hyperglyceridemia; E06.3 Autoimmune thyroiditis
CPT/HCPCS: 36415; 80053; 80061; 83721; 83036; 84443

== ENCOUNTER 2020-10-25 03:39 | Outpatient (CLI) | payer OTHER, SELFPAY ==
[2020-10-25 12:17] LABS: BUN 14 mg/dL (7-18); CREATININE 0.8 mg/dL (0.55-1.02); Calcium 9.1 mg/dL (8.5-10.1); Chloride 100 mmol/L (98-107); Cholesterol 325 mg/dL (<200); Glucose 184 mg/dL (74-106); HDL Cholesterol 26 mg/dL (40-60); Potassium 4.7 mmol/L (3.5-5.1); Sodium 138 mmol/L (136-145); Triglyceride 1037 mg/dL (<150)
[2020-10-25 12:33] LABS: LDL CHOLESTEROL 127 mg/dL (<100)
== END 2020-10-25 03:40 | disposition home or self-care (01) ==
LOC: LBO 03:39
PROVIDERS: Internal Medicine Endocrinology, Diabetes & Metabolism; PCP Family Medicine; Visit Provider Family Medicine
DX: E78.1 Pure hyperglyceridemia (principal); E11.9 Type 2 diabetes mellitus without complications
CPT/HCPCS: 36415; 80048; 80061; 83721

== ENCOUNTER 2020-11-22 03:51 | Outpatient (CLI) | payer OTHER, SELFPAY ==
[2020-11-22 09:03] LABS: Anion Gap 10.8 mmol/L (3-11); BUN 14 mg/dL (7-18); CO2 28.2 mmol/L (21.0-32.0); CREATININE 0.8 mg/dL (0.55-1.02); Calcium 9.3 mg/dL (8.5-10.1); Calculated LDL 76 mg/dL (<100); Chloride 101 mmol/L (98-107); Cholesterol 177 mg/dL (<200); Glucose 210 mg/dL (74-106); HDL Cholesterol 27 mg/dL (40-60); Potassium 4.1 mmol/L (3.5-5.1); Sodium 140 mmol/L (136-145); Triglyceride 374 mg/dL (<150)
== END 2020-11-22 03:52 | disposition home or self-care (01) ==
LOC: LBO 03:51
PROVIDERS: PCP Family Medicine; Visit Provider Internal Medicine Endocrinology, Diabetes & Metabolism
DX: E78.1 Pure hyperglyceridemia (principal); E11.9 Type 2 diabetes mellitus without complications
CPT/HCPCS: 36415; 80048; 80061

== ENCOUNTER 2021-01-03 08:53 | Outpatient (CLI) | payer OTHER, SELFPAY ==
[2021-01-03 13:10] LABS: Calculated LDL 76 mg/dL (<100); Cholesterol 180 mg/dL (<200); HDL Cholesterol 28 mg/dL (40-60); Triglyceride 380 mg/dL (<150)
== END 2021-01-03 08:54 | disposition home or self-care (01) ==
LOC: LOS 08:54
PROVIDERS: PCP Family Medicine; Visit Provider Family Medicine
DX: E87.1 Hypo-osmolality and hyponatremia (principal); E11.65 Type 2 diabetes mellitus with hyperglycemia
CPT/HCPCS: 36415; 80061; 83036

== ENCOUNTER 2021-02-16 16:20 | Outpatient (REF) | payer OTHER, SELFPAY ==
[2021-02-17 22:38] LABS: COVID-19 RT-PCR UVMMC Result Positive (Negative)
== END 2021-02-16 16:21 | disposition home or self-care (01) ==
LOC: NCHCN 16:20
PROVIDERS: PCP Family Medicine; Visit Provider Family Medicine
DX: Z20.822 Contact with and (suspected) exposure to COVID-19 (principal)
CPT/HCPCS: U0003

== ENCOUNTER 2021-02-22 10:04 | Inpatient (IN) | payer OTHER, SELFPAY ==
[2021-02-22] VITALS (26 sets, daily range): BP systolic 137–159; BP diastolic 61–91; PULSE 106–128; RESP 16–27; TEMP 36.5–36.8; O2SAT 91–95
--- NOTE | 2021-02-22 10:15 | RT.EKG_ITS ---
APPROVED REPORT Exam: Resting ECG Reason for Exam: SOB Patient Location: E HR:109 bpm ECG Measurements Heart Rate 109 AXIS DC 181 P 59 QRSd 85 QRS 82 QT 341 T 33 QTc 459 Conclusion Sinus tachycardia...rate> 99 Low voltage, extremity leads...all extremity leads <0.5mV sinus tachycardia at 109, normal axis, no acute ischemic changes, no major change from prior 1, nondiagnostic EKG
[2021-02-22 10:53] LABS: Lactate 1.4 mmol/L (0.6-1.4)
[2021-02-22 10:59] LABS: Abs Immature Grans 0.12 10^3/uL (0.0-0.06); Absolute Basophil Count 0.03 10^3/uL (0.0-0.2); Absolute Eosinophil Count 0.01 10^3/uL (0.0-0.7); Absolute Lymphocyte Count 1.06 10^3/uL (1.2-3.4); Absolute Monocyte Count 0.22 10^3/uL (0.1-0.8); Absolute Neutrophil Count 4.51 10^3/uL (1.2-6.7); Basophils % 0.5; Eosinophils % 0.2; HCT 43.3 % (36.0-46.0); Lymphocytes % 17.8; MCH 29.2 pg (27.0-33.0); MCHC 32.3 % (32.0-36.0); MCV 90.4 fL (80-95); MPV 12.1 fL (8.0-11.0); Monocytes % 3.7; Neutrophils % 75.8; Nucleated RBC 0 %; RBC 4.79 10^6/uL (3.93-5.22); RDW 13.2 % (11.7-14.6); RDW-SD 44.5 fL; WBC 5.95 10^3/uL (4.4-10.8)
[2021-02-22] MEDS: Acetaminophen 500 MG TAB 1000 MG PO (10:59)
[2021-02-22] MEDS: Normal Saline 1,000 ML 1000 ML IV (10:59)
--- NOTE | 2021-02-22 11:10 | ED.GENADUL_ITS ---
Discharge Plan Discharge Details Chief Complaint: SOB Admit Date/Time: 02/22/21 12:41 Admit Provider: Carlos Davis Attending Provider: Carlos Davis Primary Care Provider: Leonor Hendricks ED Provider: Jasmina Plata Discharge Data Discharge Date/Time-TO BE ENTERED AT DEPARTURE: 02/22/21 14:16 Medical Decision Making Jesika Ryan is a 50 y/o woman with history of insulin-dependent diabetes, Misha's thyroiditis, thrombocytopenia 10/05 presenting to emergency department with cough, shortness of breath, generalized body aches. Diagnosed with Covid 02/17/2021. On exam patient appears ill but not in extremis. She is alert and oriented. Coarse breath sounds bilaterally on auscultation, tachycardic. Sats 89% on room air, 94% on 2L. Benign abdominal exam. Concern for worsening Covid pneumonia, possible superimposed bacterial pneumonia, pulmonary embolism, metabolic/lyte derangement, other. Doubt acute coronary syndrome. Exam/history at this time is not consistent with acute aortic pathology, acute emergent intra-abdominal pathology. Plan for IV placement, telemetry, screening labs, EKG, IV fluid hydration, CT chest. Will monitor and reassess. Labs reviewed, troponin negative, platelets 38. Patient reports that she had thrombocytopenia in September 2020 after being on antibiotics for foot infection. CT shows numerous bilateral infiltrates. Plan for admission for Covid pneumonia, thrombocytopenia. Will give 10 mg IV Decadron. Medical Records Medical records reviewed: Yes I reviewed the patient's medical records. Imaging Data Radiologic Study: Attestation: I personally reviewed and interpreted this imaging study as follows: Radiologist's impression: CT CHEST PE CTA EXAM: CT CHEST PE CTA CLINICAL HISTORY: SOB, covid +. TECHNIQUE: Imaging Protocol: CT angiography of the chest was performed using pulmonary embolus protocol. Multi planar reconstructions were performed. CONTRAST MATERIAL: Intravenous: Omnipaque 350 Contrast volume: 100 cc COMPARISON: CT CT ABDOMEN PELVIS W from 12/15/2019 FINDINGS: CHEST: PULMONARY ARTERIES: Less than optimal bolus timing but no obvious intraluminal filling defects to suggest acute pulmonary emboli. LUNGS: There are multiple confluent and nodular infiltrates throughout both lung carreon, not associated with pleural effusions.. Largest of these are pleural based, not associated with overlying rib destruction. There are no pleural effusions. No findings in the trachea and mainstem bronchi. MEDIASTINUM: Small lymph nodes in both hilar regions noted. There is also subcarinal adenopathy. There is no adenopathy in the anterior mediastinal fat. Thyroid gland size is normal. There is a tiny 4 millimeter nodule in the posterior aspect of the right thyroid lobe. CARDIAC: Heart size is upper normal. There is no pericardial effusion.Caliber of the thoracic aorta is within normal limits. There is no significant shift of the interventricular septum. PARTIALLY VISUALIZED UPPERMOST ABDOMEN: Hepatic steatosis noted. No adrenal mass is seen. OSSEOUS: No significant osseous lesions.. IMPRESSION: 1. No evidence of acute pulmonary emboli. No pleural effusions. 2. However, there are numerous bilateral non cavitated nodular and confluent infiltrates, this involving all lobes of both lungs and associated with subcarinal adenopathy and slightly enlarged hilar lymph nodes. 3. Hepatic steatosis incidentally noted. Lab Data Lab results reviewed: Yes I reviewed the patient's lab results. ECG Data Attestation: I personally reviewed and interpreted this ECG (s) as follows: Interpretation: EKG shows sinus tachycardia at 109, normal axis, no acute ischemic changes, no major change from prior 10/06/2020, nondiagnostic EKG HPI General Mode of arrival: ambulatory . Date/Time Provider Initiated Documentation: 02/22/21 10:04 . Limitations to Documentation: no limitations . Information obtained by: RN notes reviewed and old records reviewed . HPI Narrative: Jesika Ryan is a 50-year-old woman with a history of insulin- dependent diabetes, Misha's thyroiditis, thrombocytopenia in the past presenting to emergency department with shortness of breath, cough. Patient reports that she has had 8 days of symptoms including cough, generalized body aches. Patient reports that she was diagnosed with Covid this past 02/17/2021. Patient states that she has had gradually worsening shortness of breath since diagnosis. She reports generalized joint pain, headache. Denies any other pain. She denies vomiting, diarrhea, numbness, weakness, rash. Has had somewhat decreased appetite but has continued to eat and drink. Patient reports that she is unvaccinated for Covid. Related Data Home Medications Medication Instructions Recorded Confirmed escitalopram oxalate [Lexapro] 20 mg PO HS tab-cap 12/25/16 02/23/21 empagliflozin 25 mg tablet 25 mg PO HS 01/19/19 02/22/21 guselkumab 100 mg/mL subcutaneous 100 mg SC Q8W 01/19/19 02/22/21 auto-injector metformin 1,000 mg tablet 1,000 mg PO BID 01/19/19 02/22/21 norethindrone acetate 5 mg PO DAILY 10/06/20 02/23/21 fenofibrate nanocrystallized 145 mg PO DAILY 02/23/21 02/23/21 insulin glargine [Basaglar KwikPen 25 unit SUBCUT DAILY 02/23/21 02/23/21 U-100 Insulin] insulin lispro [Humalog KwikPen See Rx Instructions .ROUTE .COMPLEX 02/23/21 02/23/21 Insulin] rosuvastatin 20 mg PO QPM 02/23/21 02/23/21 semaglutide [Ozempic] 1 mg SUBCUT QWEEK 02/23/21 02/23/21 Allergies Allergy/AdvReac Type Severity Reaction Status Date / Time ustekinumab [From Stelara] AdvReac Intermediate tremor Verified 02/22/21 10:15 tachycardia General Stated Complaint: SOB JEAN-PAUL: 2 Review of Systems Narrative: Constitutional: denies fevers Eyes: denies eye pain ENT: denies ear pain, dental pain, sore throat Cardiovascular: denies chest pain, edema Respiratory: reports SOB, cough GI: denies abdominal pain, vomiting, diarrhea : denies flank pain MSK: denies back pain, neck pain, reports generalized arthralgias, myalgias Skin: denies rash Neuro: denies numbness, weakness, reports headache PFSH Medical History Abnormal ultrasound of endometrium Diabetes mellitus Dysfunctional uterine bleeding Endocervical polyp Misha's thyroiditis Hx of sleep apnea Obesity Psoriasis Vaginal pain 5 o'clock position left distal vaginal side wall. Rx with Premarin cream Surgical History History of cardiac radiofrequency ablation pt. reports ablation 20 years ago for irregular heart beat. Hx of excision of dermoid cyst pt unsure what type but on L side of neck Family History Mother Hyperlipidemia Father Myocardial infarction Grandmother Myocardial infarction Social History Smoking/Tobacco Use Status: Former Tobacco Use Quit Date: 06/17/16 Smoking risk assessment performed?: Yes Alcohol Intake: never Drug use: Never Substance use type: does not use Do you feel safe at home: Yes Do you feel safe in your relationship?: Yes History History 1 Para 1 Hx # Term Pregnancies Multiple births Hx # Pregnancies Ectopic pregnancies AB induced Hx Number of Living Children AB spontaneous Exam Narrative Exam Narrative: Constitutional: appears ill, no extremis, pleasant, conversing normally HENT: head atraumatic/normocephalic/normal inspection, mucous membranes moist Eyes: conjunctiva normal, sclera normal, pupils 3mm b/l Neck: no stridor, normal ROM, trachea midline Chest: normal inspection Resp: normal work of breathing, coarse breath sounds b/l, no wheeze Cardio: tachycardic rate, normal rhythm, no murmur GI: abdomen soft, non-tender, non-distended Back: normal inspection, no rash Skin: warm, dry, normal color, no rash Neuro: alert, not altered, grossly non-focal, normal tone Ext: no edema, no posterior calf TTP Psych: normal mood, normal affect, normal behavior Course Vital Signs Vital signs: Vital Signs Temperature 36.7 C 02/22/21 10:11 Pulse 111 H 02/22/21 10:11 Respiratory Rate 21 02/22/21 10:11 Blood Pressure 146/72 H 02/22/21 10:11 Pulse Oximetry 93 02/22/21 10:11 Temperature 36.7 C 02/22/21 10:11 Temperature Source Temporal Artery Scan 02/22/21 10:11 Pulse 111 H 02/22/21 10:11 Respiratory Rate 24 02/22/21 11:02 Respiratory Effort 02/22/21 11:02 Respiratory Depth Normal 02/22/21 11:02 Respiratory Pattern Normal 02/22/21 11:02 Blood Pressure 146/72 H 02/22/21 10:11 Blood Pressure Position Supine 02/22/21 10:11 Pulse Oximetry 93 02/22/21 10:11 Oxygen Delivery Method Room Air 02/22/21 10:11 Oxygen Flow Rate 0 02/22/21 10:11 Pain Level 6 02/22/21 10:59 Comment 02/22/21 10:11 Lab/Test Results Lab/Test Results: Laboratory Tests Range/Units 02/22/21 10:25 VBG Lactate (0.6-1.4) mmol/L 1.4
[2021-02-22 11:20] LABS: Troponin I < 0.05 ng/mL (<0.06)
[2021-02-22 11:24] LABS: ALT 42 U/L (14-59); AST 38 U/L (15-37); Albumin 3.3 g/dL (3.4-5.0); Alkaline Phosphatase 109 U/L (46-116); BUN 10 mg/dL (7-18); Bilirubin, Total 0.5 mg/dL (0.2-1.0); CREATININE 0.7 mg/dL (0.55-1.02); Calcium 8.5 mg/dL (8.5-10.1); Chloride 99 mmol/L (98-107); Glucose 130 mg/dL (74-106); Sodium 137 mmol/L (136-145); TSH (W/Ref FT4) 2.51 uIU/mL (0.36-3.74)
[2021-02-22 11:33] LABS: Platelet Count 38 10^3/uL (130-400)
[2021-02-22] MEDS: Omnipaque 350 MG/ML 100 ML BTL IJ (11:49)
[2021-02-22] MEDS: Normal Saline Flush 10 ML SYR IVP (11:50)
--- NOTE | 2021-02-22 11:51 | DI.CT_ITS ---
Exam(s) CT CHEST PE CTA EXAM: CT CHEST PE CTA CLINICAL HISTORY: SOB, covid +. TECHNIQUE: Imaging Protocol: CT angiography of the chest was performed using pulmonary embolus stephane col. Multi planar reconstructions were performed. CONTRAST MATERIAL: Intravenous: Omnipaque 350 Contrast volume: 100 cc COMPARISON: CT CT ABDOMEN PELVIS W from 12/15/2019 FINDINGS: CHEST: PULMONARY ARTERIES: Less than optimal bolus timing but no obvious intraluminal filling defects to sug gest acute pulmonary emboli. LUNGS: There are multiple confluent and nodular infiltrates throughout both lung carreon, not associat ed with pleural effusions.. Largest of these are pleural based, not associated with overlying rib de struction. There are no pleural effusions. No findings in the trachea and mainstem bronchi. MEDIASTINUM: Small lymph nodes in both hilar regions noted. There is also subcarinal adenopathy. Th ere is no adenopathy in the anterior mediastinal fat. Thyroid gland size is normal. There is a tiny 4 millimeter nodule in the posterior aspect of the right thyroid lobe. CARDIAC: Heart size is upper normal. There is no pericardial effusion.Caliber of the thoracic aorta is within normal limits. There is no significant shift of the interventricular septum. PARTIALLY VISUALIZED UPPERMOST ABDOMEN: Hepatic steatosis noted. No adrenal mass is seen. OSSEOUS: No significant osseous lesions.. IMPRESSION: 1. No evidence of acute pulmonary emboli. No pleural effusions. 2. However, there are numerous bilateral non cavitated nodular and confluent infiltrates, this involv ing all lobes of both lungs and associated with subcarinal adenopathy and slightly enlarged hilar lym ph nodes. 3. Hepatic steatosis incidentally noted. Report called by myself to the ER physician. RADIATION DOSE DELIVERED: 656mGy.cm Total DLP DATA REPOSITORY: All CT scans at this facility are submitted to the National Radiology Data Registry (NRDR) Dose Index Registry (DIR) with the [employer] (ACR). RADIATION OPTIMIZATION: All CT scans at this facility use at least one of these dose optimization te chniques: automated exposure control; mA and/or kV adjustment per patient size (includes targeted exa ms where dose is matched to clinical indication); or iterative reconstruction.
[2021-02-22] MEDS: REMDESIVIR 200 MG in Normal Saline 250 ML 250 MG IVPB (13:19)
[2021-02-22] MEDS: Dexamethasone 10 MG/ML VIAL IVP (13:19)
[2021-02-22 13:43] LABS: Bilirubin Small (Negative); Blood Trace-lysed (Negative); Clarity Clear (Clear); Glucose 500 mg/dL (Negative); Ketones >=160 mg/dL (Negative); Leukocyte Esterase Negative (Negative); Nitrite Negative (Negative); Urobilinogen 0.2 EU/dL (Up TO 0.2)
[2021-02-22 13:47] LABS: PTT Activated 29.7 sec (21.0-27.5); Prothrombin Time 10.1 sec (9.3-11.0)
[2021-02-22 13:52] LABS: C-Reactive Protein 15.17 mg/dL (0.0-0.3)
[2021-02-22 14:02] LABS: D-Dimer 717 ng/mlFEU (<500); NT-proBNP 30 pg/mL (<300)
[2021-02-22 14:03] LABS: Troponin I < 0.05 ng/mL (<0.06)
[2021-02-22 14:08] LABS: RBC 0-2 HPF (0-2)
[2021-02-22 14:09] LABS: Epithelial Cells Many HPF (Negative)
[2021-02-22 14:10] LABS: Bacteria Moderate HPF (Negative); C & S Indicated? No; Casts Negative LPF (Negative); Crystals Negative HPF (Negative); Mucus Negative (Negative); Other Cells Few Yeast (Negative)
[2021-02-22 14:22] LABS: Procalcitonin < 0.1 ng/mL
[2021-02-22] MEDS: Acetaminophen 325 MG TAB PO (16:41)
--- NOTE | 2021-02-22 16:42 | NUR.NOTE ---
Nursing Note: Patient was instructed on proning, she attempted but could not tolerate it
--- NOTE | 2021-02-22 17:39 | HPE_ITS ---
Date of service: 02/22/21 Time of Service: 17:40 Assessment and Plan Assessment and plan (1) Pneumonia due to COVID-19 virus: Status: Acute Assessment and plan: cont. Remdesivir, decadron, begin anticoagulants for PE/dvt prevention (use full anticoagulation initially and trend her d-dimer, at discharge would put her on dvt prophylaxis levels of DOAC but will use full dose treatment for now apixaban 5 mg bid. will use atorvastatin. Hold on tociluzumab or barictinib unless her hypoxemia worsens. She is too far out to be considered for monoclonal antibodies. (i.e. over 5 days since symptom onset and even over 5 days since her positive test and she is now requiring oxygen supplementation. (2) Diabetes: Status: Chronic Assessment and plan: hold metformin since she just had CTA chest. Will cover w/ basal insulin and add NPH w/ her steroids. i.e. 0.5 units per prednisone equivalent of her dexamethasone (i.e. 6mg dexamethasone= 40 mg prednisone = 20 units NPH daily) also will cover meals w/ 1:10 ratio novolog to CHO and use insulin sensitive sliding scale (3) Hyperlipidemia: Status: Acute Assessment and plan: not currently on treatment but in light of Covid-19 should be on moderate to high dose statin (4) DVT prophylaxis: Status: Acute Assessment and plan: Apixaban 5 mg bid History of Present Illness History of Present Illness Chief Complaint: dyspnea, fever, cough Narrative: 50 yr female former smoker w/ PMH DM type 2 (on metformin and jardiance; wears a dexcom meter), Misha's thyroiditis, whose 's boss officiated at a wedding in [place] then exposed her who subsequently exposed the patient to COVID-19. Patient has had symptoms for past 8 days (beginning 02/15). She got tested last and got her results last Saturday 02/17. Symptoms have included headaches, myalgias, decreased appetite and nausea along w/ cough. No loss of sense of taste or smell. Cough is nonproductive and has been getting worse along w/ progressive dyspnea over past couple days. Cough has been keeping her awake. She was not vaccinated for COVID-19 although she has had her pneumovax and usually gets her flu vaccines. She no longer smokes having quit 5 yrs ago. She denies any asthma or COPD. She has hx of PSVT which was diagnosed before her Misha's and led to ablation therapy. In the ER she had workup that included EKG, CTA chest, routine labs including CBC, CMP, and UA. Subsequently she had d-dimer, protime, aPtt, bnp, and serial troponin levels. CBC is remarkable for thrombocytopenia (platelet count 38,000) She has hx of ITP associated w/ prolonged antibiotic course for treatment of foot puncuture wound last spring (platelet count at that time dropped to 13,000 w/ subsequent recovery to normal by September this year. Rest of labs were remarkable for d-dimer of 717, normal troponins, normal TSH, normal procalcitonin, elevated CRP 15, anion gap 15, UA >160 ketones, 30 mg/dL protein, moderate bacteria but many epi thelial cells and yeast. CTA chest demonstrated: IMPRESSION: 1. No evidence of acute pulmonary emboli. No pleural effusions. 2. However, there are numerous bilateral non cavitated nodular and confluent infiltrates, this involving all lobes of both lungs and associated with subcarinal adenopathy and slightly enlarged hilar lymph nodes. 3. Hepatic steatosis incidentally noted. Patient was given a bolus of iv fluids and started on decadron 10 mg and Remdesevir 200 mg iv. She is admitted for mild COVID -19 pneumonia. Review of Systems All systems reviewed & are unremarkable except as noted in HPI and below PFSH Medical History Abnormal ultrasound of endometrium Diabetes mellitus Dysfunctional uterine bleeding Endocervical polyp Misha's thyroiditis Hx of sleep apnea Obesity Psoriasis Vaginal pain 5 o'clock position left distal vaginal side wall. Rx with Premarin cream Surgical History History of cardiac radiofrequency ablation pt. reports ablation 20 years ago for irregular heart beat. Hx of excision of dermoid cyst pt unsure what type but on L side of neck Family History Mother Hyperlipidemia Father Myocardial infarction Grandmother Myocardial infarction Social History Smoking/Tobacco Use Status: Former Tobacco Use Quit Date: 06/17/16 Smoking risk assessment performed?: Yes Alcohol Intake: never Drug use: Never Substance use type: does not use Do you feel safe at home: Yes Do you feel safe in your relationship?: Yes History History 1 Para 1 Hx # Term Pregnancies Multiple births Hx # Pregnancies Ectopic pregnancies AB induced Hx Number of Living Children AB spontaneous Meds Allergies and Home Medications Allergies Allergy/AdvReac Type Severity Reaction Status Date / Time ustekinumab [From Stelara] AdvReac Intermediate tremor Verified 02/22/21 10:15 tachycardia Home Medications Medication Instructions Recorded Confirmed Type escitalopram oxalate [Lexapro] 10 mg PO HS tab-cap 12/25/16 02/22/21 History empagliflozin 25 mg tablet 25 mg PO HS 01/19/19 02/22/21 History guselkumab 100 mg/mL subcutaneous 100 mg SC Q8W 01/19/19 02/22/21 History auto-injector liraglutide 0.6 mg/0.1 mL (18 mg/3 1.8 mg SC DAILY 01/19/19 06/30/20 History mL) subcutaneous pen injector metformin 1,000 mg tablet 1,000 mg PO BID 01/19/19 02/22/21 History norethindrone acetate mg 10/06/20 10/06/20 History Exam Const General: cooperative, no acute distress and ill appearing acutely Nutritional Appearance: obese Orientation: alert, awake and oriented x3 HENMT Head: normal to inspection Ears: hearing grossly normal bilaterally General nose exam: external nose normal Face and sinus: normal facial exam Mouth: oral mucosae normal Eyes General: appearance normal, both eyes and all related structures Alignment and Position: alignment normal Periorbital: periorbital findings normal Eyelids: eyelids normal Conjunctivae: conjunctivae normal Sclera: sclerae normal Cornea: corneas normal EOM: EOM intact bilaterally Neck Neck: normal visual inspection, full ROM, no lymphadenopathy, no meningeal signs, trachea midline, supple and no JVD Thyroid: diffusely enlarged Lymphatic: no lymphadenopathy noted Chest Chest: normal inspection of the chest Resp Effort & Inspection: able to speak in complete sentences, cough Quality of cough: actively coughing and tachypneic Auscultation: bronchovesicular breath sounds bilaterally and crackles bilaterally throughout Cardio Jugular venous pressure: no JVD Palpation: normal PMI Rate: tachycardic Rhythm: regular rhythm Heart Sounds: S1 normal, S2 normal, no gallops, no murmurs and no rubs GI Inspection: obesity Palpation: soft and no hepatosplenomegaly Auscultation: normal bowel sounds Back/Spine/Pelvis Back: no CVA tenderness Cervical Spine: normal cervical lordosis Thoracic/Lumbar Spine: thoracic and lumbar spine normal to inspection Skin General skin exam: no rashes or lesions noted Rashes: other (tatoo over left lower leg) Hair: normal Extrem General: normal to inspection, full ROM, capillary refill normal, no pedal edema and no calf tenderness Psych Appearance: grossly normal Mental Status: mental status grossly normal Speech and Movement: speech and movement normal Mood: congruent mood Affect: normal affect Attitude: cooperative Thought Process: normal Thought Content: normal Insight: insight good Judgment: judgment good Results Labs Result diagrams: 02/22/21 10:25 02/22/21 10:25 Labs: Laboratory Results - last 24 hr 02/22/21 02/22/21 02/22/21 10:25 10:25 10:25 WBC 5.95 RBC 4.79 Hgb 14.0 Hct 43.3 MCV 90.4 MCH 29.2 MCHC 32.3 RDW 13.2 Plt Count 38 L MPV 12.1 H Immature Gran % 2.0 Neutrophils % 75.8 Lymphocytes % 17.8 Monocytes % 3.7 Eosinophils % 0.2 Basophils % 0.5 Nucleated RBC % 0 Absolute Neutrophils 4.51 Absolute Lymphocytes 1.06 L Absolute Monocytes 0.22 Absolute Eosinophils 0.01 Absolute Basophils 0.03 PT INR APTT D-Dimer VBG Lactate 1.4 Sodium 137 Potassium 4.0 Chloride 99 Carbon Dioxide 23.0 Anion Gap 15.0 H BUN 10 Creatinine 0.7 Estimated GFR/1.73 m2 >= 60.00 Glucose 130 H Calcium 8.5 Total Bilirubin 0.5 AST 38 H ALT 42 Alkaline Phosphatase 109 Troponin I C-Reactive Protein NT-Pro-B Natriuret Pep Total Protein 8.0 Albumin 3.3 L Procalcitonin TSH 2.51 Urine Color Urine Clarity Urine pH Ur Specific [place] Urine Protein Urine Ketones Urine Blood Urine Nitrite Urine Bilirubin Urine Urobilinogen Ur Leukocyte Esterase Urine RBC Urine WBC Ur Epithelial Cells Urine Crystals Urine Bacteria Urine Casts Urine Mucus Urine Other Ur Culture Indicated? Urine Glucose Patient ABO/Rh Antibody Screen 02/22/21 02/22/21 02/22/21 10:25 13:10 13:10 WBC RBC Hgb Hct MCV MCH MCHC RDW Plt Count MPV Immature Gran % Neutrophils % Lymphocytes % Monocytes % Eosinophils % Basophils % Nucleated RBC % Absolute Neutrophils Absolute Lymphocytes Absolute Monocytes Absolute Eosinophils Absolute Basophils PT 10.1 INR 1.0 APTT 29.7 H D-Dimer 717 H VBG Lactate Sodium Potassium Chloride Carbon Dioxide Anion Gap BUN Creatinine Estimated GFR/1.73 m2 Glucose Calcium Total Bilirubin AST ALT Alkaline Phosphatase Troponin I < 0.05 C-Reactive Protein NT-Pro-B Natriuret Pep Total Protein Albumin Procalcitonin TSH Urine Color Urine Clarity Urine pH Ur Specific [place] Urine Protein Urine Ketones Urine Blood Urine Nitrite Urine Bilirubin Urine Urobilinogen Ur Leukocyte Esterase Urine RBC Urine WBC Ur Epithelial Cells Urine Crystals Urine Bacteria Urine Casts Urine Mucus Urine Other Ur Culture Indicated? Urine Glucose Patient ABO/Rh B Positive Antibody Screen NEGATIVE 02/22/21 02/22/21 02/22/21 13:10 13:10 13:10 WBC RBC Hgb Hct MCV MCH MCHC RDW Plt Count MPV Immature Gran % Neutrophils % Lymphocytes % Monocytes % Eosinophils % Basophils % Nucleated RBC % Absolute Neutrophils Absolute Lymphocytes Absolute Monocytes Absolute Eosinophils Absolute Basophils PT INR APTT D-Dimer VBG Lactate Sodium Potassium Chloride Carbon Dioxide Anion Gap BUN Creatinine Estimated GFR/1.73 m2 Glucose Calcium Total Bilirubin AST ALT Alkaline Phosphatase Troponin I < 0.05 C-Reactive Protein 15.17 H NT-Pro-B Natriuret Pep 30 Total Protein Albumin Procalcitonin < 0.1 TSH Urine Color Urine Clarity Urine pH Ur Specific [place] Urine Protein Urine Ketones Urine Blood Urine Nitrite Urine Bilirubin Urine Urobilinogen Ur Leukocyte Esterase Urine RBC Urine WBC Ur Epithelial Cells Urine Crystals Urine Bacteria Urine Casts Urine Mucus Urine Other Ur Culture Indicated? Urine Glucose Patient ABO/Rh Antibody Screen 02/22/21 13:15 WBC RBC Hgb Hct MCV MCH MCHC RDW Plt Count MPV Immature Gran % Neutrophils % Lymphocytes % Monocytes % Eosinophils % Basophils % Nucleated RBC % Absolute Neutrophils Absolute Lymphocytes Absolute Monocytes Absolute Eosinophils Absolute Basophils PT INR APTT D-Dimer VBG Lactate Sodium Potassium Chloride Carbon Dioxide Anion Gap BUN Creatinine Estimated GFR/1.73 m2 Glucose Calcium Total Bilirubin AST ALT Alkaline Phosphatase Troponin I C-Reactive Protein NT-Pro-B Natriuret Pep Total Protein Albumin Procalcitonin TSH Urine Color Yellow Urine Clarity Clear Urine pH 6.0 Ur Specific [place] 1.020 Urine Protein 30 H Urine Ketones >=160 H Urine Blood Trace-lysed H Urine Nitrite Negative Urine Bilirubin Small H Urine Urobilinogen 0.2 Ur Leukocyte Esterase Negative Urine RBC 0-2 Urine WBC 3-5 Ur Epithelial Cells Many Urine Crystals Negative Urine Bacteria Moderate Urine Casts Negative Urine Mucus Negative Urine Other Few Yeast Ur Culture Indicated? No Urine Glucose 500 H Patient ABO/Rh Antibody Screen Last Vital Signs Temp 36.8 C 02/22/21 14:34 Pulse 121 H 02/22/21 15:05 Resp 18 02/22/21 14:34 BP 145/61 H 02/22/21 14:34 Pulse Ox 93 02/22/21 14:34
[2021-02-22] MEDS: cefTRIAXone 1 GM/50 ML BAG IVPB (19:15)
[2021-02-22] MEDS: Insulin Aspart 300 UNITS/3 ML PEN SC (21:21)
[2021-02-22] MEDS: Benzonatate 100 MG CAP 200 MG PO (21:22)
[2021-02-22] MEDS: Doxycycline Hyclate 100 MG CAP PO (21:22)
[2021-02-22] MEDS: Atorvastatin 40 MG TAB PO (21:23)
[2021-02-22] MEDS: Escitalopram 10 MG TAB PO (21:23)
[2021-02-23] VITALS (60 sets, daily range): BP systolic 107–149; BP diastolic 61–84; PULSE 86–121; RESP 17–25; TEMP 36–37.2; O2SAT 88–94
[2021-02-23 07:53] LABS: Abs Immature Grans 0.28 10^3/uL (0.0-0.06); Absolute Basophil Count 0.05 10^3/uL (0.0-0.2); Absolute Lymphocyte Count 1.33 10^3/uL (1.2-3.4); Absolute Monocyte Count 0.36 10^3/uL (0.1-0.8); Absolute Neutrophil Count 5.24 10^3/uL (1.2-6.7); Basophils % 0.7; HCT 44.8 % (36.0-46.0); HGB 14.6 g/dL (11.2-15.7); Immature Grans % 3.9; Lymphocytes % 18.3; MCH 29.4 pg (27.0-33.0); MCHC 32.6 % (32.0-36.0); MCV 90.1 fL (80-95); MPV 11.5 fL (8.0-11.0); Neutrophils % 72.1; Nucleated RBC 0 %; RBC 4.97 10^6/uL (3.93-5.22); RDW 13.4 % (11.7-14.6); RDW-SD 44.9 fL; WBC 7.26 10^3/uL (4.4-10.8)
[2021-02-23 08:14] LABS: ALT 40 U/L (14-59); AST 31 U/L (15-37); Albumin 3.3 g/dL (3.4-5.0); Alkaline Phosphatase 110 U/L (46-116); Anion Gap 22.6 mmol/L (3-11); BUN 16 mg/dL (7-18); Bilirubin, Total 0.4 mg/dL (0.2-1.0); C-Reactive Protein 15.87 mg/dL (0.0-0.3); CO2 13.4 mmol/L (21.0-32.0); CREATININE 0.9 mg/dL (0.55-1.02); Calcium 8.6 mg/dL (8.5-10.1); Chloride 99 mmol/L (98-107); Glucose 142 mg/dL (74-106); Potassium 4.1 mmol/L (3.5-5.1); Sodium 135 mmol/L (136-145); Total Protein 8.3 g/dL (6.4-8.2)
[2021-02-23 08:16] LABS: Magnesium 2.1 mg/dL (1.8-2.4)
[2021-02-23] MEDS: Benzonatate 200 MG CAP PO ×3 (08:30→20:10)
[2021-02-23] MEDS: Doxycycline Hyclate 100 MG CAP PO ×2 (08:30→20:10)
[2021-02-23] MEDS: Insulin Aspart 300 UNITS/3 ML PEN SC ×6 (08:30→14:51)
[2021-02-23] MEDS: Dexamethasone 4 MG/ML VIAL 6 MG IVP (08:30)
[2021-02-23] MEDS: Apixaban 5 MG TAB PO ×2 (08:30→20:10)
[2021-02-23 08:41] LABS: D-Dimer 774 ng/mlFEU (<500)
--- NOTE | 2021-02-23 08:45 | W.PM.PROGNOT ---
Date of Service Date of service: 02/23/21 Time of Service: 08:45 Assessment and Plan Assessment and plan (1) Pneumonia due to COVID-19 virus: Status: Acute Assessment and plan: cont. Remdesivir, decadron, anticoagulation, Rocephin; if her repeat procalcitonin is normal then I would discontinue antibiotics particularly if no fever and no sputum production. (2) Diabetes: Status: Chronic Assessment and plan: patient is showing signs of DKA w/ rising AG and low CO2 levels. Her glucose was not particularly high this morning at 169. However w/ the decadron I expect this to rise through the day. Becasuse of lack of ICU beds, she was intially managed on the floor w/ hourly glucose monitoring and hourly dosing of Novolog. (3) Hyperlipidemia: Status: Acute Assessment and plan: not currently on treatment but in light of Covid-19 should be on moderate to high dose statin (4) DVT prophylaxis: Status: Acute Assessment and plan: Apixaban 5 mg bid Subjective Subjective Interval history since last seen: Patient is clinically unchanged. Still has dry cough. Dyspnea no worse. No CP. No nausea or vomiting and no change in sense of taste or smell. Patient states that she practiced proning last night. She has been wearing her nasal cannula and her SPO2 is 91 to 93% on 2 LPM NC. Cough is nonproductive. CBC is pending however her CMP shows metabolic acidosis (CO2 13.4, AG 22). I will check lactate level and ABG. She does not seem particularly tachypneic. her CRP and dimer are about the same as on admission. CRP 15.8 and d-dimer 774. I will have nursing check her urine for ketones to be sure that she is not developing DKA. Glucose is only 142 on her labs. Exam Narrative Exam Narrative: Middle age white female lying on her side in bed. She does not appear to be in any respiratory distress and she is able to speak in full sentences Lungs w/ coarse dry rales diffusely; no rhonchi or wheezes Heart: RRR, no murmur Abdomen: soft, nontender, nondistended Extremities: no edema or calf tenderness Objective Last Vital Signs Temp 37.2 C 02/23/21 04:00 Pulse 100 H 02/23/21 08:02 Resp 20 02/23/21 04:00 BP 132/77 09/09/21 04:00 Pulse Ox 91 L 02/23/21 04:00 Laboratory Results - last 24 hr 02/22/21 02/22/21 02/22/21 10:25 10:25 10:25 WBC 5.95 RBC 4.79 Hgb 14.0 Hct 43.3 MCV 90.4 MCH 29.2 MCHC 32.3 RDW 13.2 Plt Count 38 L MPV 12.1 H Immature Gran % 2.0 Neutrophils % 75.8 Lymphocytes % 17.8 Monocytes % 3.7 Eosinophils % 0.2 Basophils % 0.5 Nucleated RBC % 0 Absolute Neutrophils 4.51 Absolute Lymphocytes 1.06 L Absolute Monocytes 0.22 Absolute Eosinophils 0.01 Absolute Basophils 0.03 PT INR APTT D-Dimer VBG Lactate 1.4 Sodium 137 Potassium 4.0 Chloride 99 Carbon Dioxide 23.0 Anion Gap 15.0 H BUN 10 Creatinine 0.7 Estimated GFR/1.73 m2 >= 60.00 Glucose 130 H Calcium 8.5 Magnesium Total Bilirubin 0.5 AST 38 H ALT 42 Alkaline Phosphatase 109 Troponin I C-Reactive Protein NT-Pro-B Natriuret Pep Total Protein 8.0 Albumin 3.3 L Procalcitonin TSH 2.51 Urine Color Urine Clarity Urine pH Ur Specific [place] Urine Protein Urine Ketones Urine Blood Urine Nitrite Urine Bilirubin Urine Urobilinogen Ur Leukocyte Esterase Urine RBC Urine WBC Ur Epithelial Cells Urine Crystals Urine Bacteria Urine Casts Urine Mucus Urine Other Ur Culture Indicated? Urine Glucose Patient ABO/Rh Antibody Screen 02/22/21 02/22/21 02/22/21 10:25 13:10 13:10 WBC RBC Hgb Hct MCV MCH MCHC RDW Plt Count MPV Immature Gran % Neutrophils % Lymphocytes % Monocytes % Eosinophils % Basophils % Nucleated RBC % Absolute Neutrophils Absolute Lymphocytes Absolute Monocytes Absolute Eosinophils Absolute Basophils PT 10.1 INR 1.0 APTT 29.7 H D-Dimer 717 H VBG Lactate Sodium Potassium Chloride Carbon Dioxide Anion Gap BUN Creatinine Estimated GFR/1.73 m2 Glucose Calcium Magnesium Total Bilirubin AST ALT Alkaline Phosphatase Troponin I < 0.05 C-Reactive Protein NT-Pro-B Natriuret Pep Total Protein Albumin Procalcitonin TSH Urine Color Urine Clarity Urine pH Ur Specific [place] Urine Protein Urine Ketones Urine Blood Urine Nitrite Urine Bilirubin Urine Urobilinogen Ur Leukocyte Esterase Urine RBC Urine WBC Ur Epithelial Cells Urine Crystals Urine Bacteria Urine Casts Urine Mucus Urine Other Ur Culture Indicated? Urine Glucose Patient ABO/Rh B Positive Antibody Screen NEGATIVE 02/22/21 02/22/21 02/22/21 13:10 13:10 13:10 WBC RBC Hgb Hct MCV MCH MCHC RDW Plt Count MPV Immature Gran % Neutrophils % Lymphocytes % Monocytes % Eosinophils % Basophils % Nucleated RBC % Absolute Neutrophils Absolute Lymphocytes Absolute Monocytes Absolute Eosinophils Absolute Basophils PT INR APTT D-Dimer VBG Lactate Sodium Potassium Chloride Carbon Dioxide Anion Gap BUN Creatinine Estimated GFR/1.73 m2 Glucose Calcium Magnesium Total Bilirubin AST ALT Alkaline Phosphatase Troponin I < 0.05 C-Reactive Protein 15.17 H NT-Pro-B Natriuret Pep 30 Total Protein Albumin Procalcitonin < 0.1 TSH Urine Color Urine Clarity Urine pH Ur Specific [place] Urine Protein Urine Ketones Urine Blood Urine Nitrite Urine Bilirubin Urine Urobilinogen Ur Leukocyte Esterase Urine RBC Urine WBC Ur Epithelial Cells Urine Crystals Urine Bacteria Urine Casts Urine Mucus Urine Other Ur Culture Indicated? Urine Glucose Patient ABO/Rh Antibody Screen 02/22/21 02/23/21 02/23/21 13:15 07:40 07:40 WBC RBC Hgb Hct MCV MCH MCHC RDW Plt Count MPV Immature Gran % Neutrophils % Lymphocytes % Monocytes % Eosinophils % Basophils % Nucleated RBC % Absolute Neutrophils Absolute Lymphocytes Absolute Monocytes Absolute Eosinophils Absolute Basophils PT INR APTT D-Dimer VBG Lactate Sodium 135 L Potassium 4.1 Chloride 99 Carbon Dioxide 13.4 L Anion Gap 22.6 H BUN 16 D Creatinine 0.9 Estimated GFR/1.73 m2 >= 60.00 Glucose 142 H Calcium 8.6 Magnesium 2.1 Total Bilirubin 0.4 AST 31 ALT 40 Alkaline Phosphatase 110 Troponin I C-Reactive Protein 15.87 H NT-Pro-B Natriuret Pep Total Protein 8.3 H Albumin 3.3 L Procalcitonin TSH Urine Color Yellow Urine Clarity Clear Urine pH 6.0 Ur Specific [place] 1.020 Urine Protein 30 H Urine Ketones >=160 H Urine Blood Trace-lysed H Urine Nitrite Negative Urine Bilirubin Small H Urine Urobilinogen 0.2 Ur Leukocyte Esterase Negative Urine RBC 0-2 Urine WBC 3-5 Ur Epithelial Cells Many Urine Crystals Negative Urine Bacteria Moderate Urine Casts Negative Urine Mucus Negative Urine Other Few Yeast Ur Culture Indicated? No Urine Glucose 500 H Patient ABO/Rh Antibody Screen 02/23/21 07:40 WBC RBC Hgb Hct MCV MCH MCHC RDW Plt Count MPV Immature Gran % Neutrophils % Lymphocytes % Monocytes % Eosinophils % Basophils % Nucleated RBC % Absolute Neutrophils Absolute Lymphocytes Absolute Monocytes Absolute Eosinophils Absolute Basophils PT INR APTT D-Dimer 774 H VBG Lactate Sodium Potassium Chloride Carbon Dioxide Anion Gap BUN Creatinine Estimated GFR/1.73 m2 Glucose Calcium Magnesium Total Bilirubin AST ALT Alkaline Phosphatase Troponin I C-Reactive Protein NT-Pro-B Natriuret Pep Total Protein Albumin Procalcitonin TSH Urine Color Urine Clarity Urine pH Ur Specific [place] Urine Protein Urine Ketones Urine Blood Urine Nitrite Urine Bilirubin Urine Urobilinogen Ur Leukocyte Esterase Urine RBC Urine WBC Ur Epithelial Cells Urine Crystals Urine Bacteria Urine Casts Urine Mucus Urine Other Ur Culture Indicated? Urine Glucose Patient ABO/Rh Antibody Screen
[2021-02-23] MEDS: Ipratropium/Albuterol 4 GM 120 PUFF INH IH ×4 (09:17→22:58)
[2021-02-23 09:31] LABS: BE -16 mmol/L (-2-3); HCO3 11 mmol/L (22-26); pCO2 21 mmHg (35-45); pH 7.31 (7.35-7.45); pO2 84 mmHg (80-105)
[2021-02-23 09:32] LABS: FIO2L 2 L; Site Left Radial; TCO2 11 mmol/L (23-27); sO2 96 % (95-98)
[2021-02-23 09:37] LABS: Platelet Count 96 10^3/uL (130-400)
--- NOTE | 2021-02-23 09:59 | PDOC.CMIN ---
- If Service Date Differs Date of service: 02/23/21 Time of Service: 09:59 Care Management Initial Assess REASON FOR HOSPITALIZATION:: Covid Pneumonia PAST MEDICAL HISTORY/PAST SURGICAL HISTORY:: Abnormal ultrasound of endometrium. Diabetes mellitus. Dysfunctional uterine bleeding. Endocervical polyp. Misha's thyroiditis. Hx of sleep apnea. Obesity. Psoriasis. Vaginal pain. 5 o'clock position left distal vaginal side wall. Rx with Premarin cream. Surgical History . History of cardiac radiofrequency ablation. pt. reports ablation 20 years ago for irregular heart beat. Hx of excision of dermoid cyst. pt unsure what type but on L side of neck PREVIOUS FUNCTIONAL STATUS/SOCIAL/FAMILY SUPPORTS:: Resides in [place] with , Clayton. Independent at baseline in the community. CURRENT FUNCTIONAL STATUS:: Jesika remains in COVID isolation. She is on oxygen via nasal cannula running at 2L at this time. She was transferred to the ICU today due to concerns around managing her diabetes in the setting of medication changes including diabetic medications and steroids, per MD-refer to his note for further information. ADVANCE DIRECTIVES:: None on file at [facility]. Has patient been provided with info about the portal/API?: Yes Did the patient sign up for the portal?: Yes (Previously) CODE STATUS:: Full Code INSURANCE COVERAGE / FINANCIAL ISSUES:: [employer] CURRENT HOME/COMMUNITY SERVICES/EQUIPMENT:: None, currently. PRIMARY CARE PHYSICIAN:: Leonor Hendricks POTENTIAL DISCHARGE NEEDS:: Follow up appointment with PCP. PATIENT/FAMILY EDUCATION NEEDS:: Review of discharge instructions, COVID guidelines. ANTICIPATED BARRIERS TO DISCHARGE:: None identified. TRANSPORTATION:: Via private vehicle with family. PLAN:: Jesika transferred to the ICU today for close monitoring due to difficulities managing her DM in the setting of steroid therapy, per MD. CM continues to follow. Her , Clayton called to inquire as to her status during transfer, CM directed call to M/S RN, and continues to follow.
[2021-02-23] MEDS: Insulin NPH-Human 300 UNITS/3 ML PEN 20 UNIT SC ×2 (10:17→18:34)
[2021-02-23 11:13] LABS: Anion Gap 18.3 mmol/L (3-11); BUN 17 mg/dL (7-18); CO2 17.7 mmol/L (21.0-32.0); CREATININE 0.9 mg/dL (0.55-1.02); Calcium 8.9 mg/dL (8.5-10.1); Chloride 97 mmol/L (98-107); Glucose 225 mg/dL (74-106); Potassium 4.8 mmol/L (3.5-5.1); Sodium 133 mmol/L (136-145)
[2021-02-23] MEDS: Normal Saline 500 ML IV (12:14)
[2021-02-23 14:01] LABS: Anion Gap 18.8 mmol/L (3-11); BUN 17 mg/dL (7-18); CO2 17.2 mmol/L (21.0-32.0); CREATININE 1.3 mg/dL (0.55-1.02); Calcium 9.1 mg/dL (8.5-10.1); Chloride 97 mmol/L (98-107); Estimated GFR 43.72 (mL/min/1.73m2); Glucose 300 mg/dL (74-106); Sodium 133 mmol/L (136-145)
[2021-02-23 14:19] LABS: Bilirubin Small (Negative); Blood Trace-intact (Negative); Clarity Clear (Clear); Glucose 500 mg/dL (Negative); Ketones 80 mg/dL (Negative); Leukocyte Esterase Negative (Negative); Nitrite Negative (Negative); Urobilinogen 0.2 EU/dL (Up TO 0.2); pH 5.5 (5-8)
[2021-02-23 14:45] LABS: Bacteria Few HPF (Negative); Casts Negative LPF (Negative); Crystals Negative HPF (Negative); Epithelial Cells Few HPF (Negative); Mucus Negative (Negative); Other Cells Negative (Negative); RBC 0-2 HPF (0-2); WBC 0-2 HPF (0-5)
[2021-02-23 14:46] LABS: C & S Indicated? No
[2021-02-23] MEDS: INSULIN REGULAR IN 0.9 % NACL 100 UNIT/100 ML BAG IV (16:13)
[2021-02-23] MEDS: Acetaminophen 325 MG TAB PO (16:14)
[2021-02-23] MEDS: cefTRIAXone 1 GM/50 ML BAG IVPB (18:32)
[2021-02-23 18:37] LABS: Anion Gap 12.8 mmol/L (3-11); BUN 22 mg/dL (7-18); CO2 19.2 mmol/L (21.0-32.0); Calcium 9.2 mg/dL (8.5-10.1); Chloride 101 mmol/L (98-107); Estimated GFR 59.18 (mL/min/1.73m2); Glucose 277 mg/dL (74-106); Sodium 133 mmol/L (136-145)
[2021-02-23 18:40] LABS: Potassium 3.9 mmol/L (3.5-5.1)
[2021-02-23] MEDS: Atorvastatin 40 MG TAB PO (20:10)
[2021-02-23] MEDS: Escitalopram 10 MG TAB PO (22:09)
[2021-02-23 22:27] LABS: Anion Gap 11.4 mmol/L (3-11); BUN 22 mg/dL (7-18); CO2 22.6 mmol/L (21.0-32.0); CREATININE 0.8 mg/dL (0.55-1.02); Calcium 9.2 mg/dL (8.5-10.1); Chloride 101 mmol/L (98-107); Glucose 169 mg/dL (74-106); Sodium 135 mmol/L (136-145)
[2021-02-24] VITALS (62 sets, daily range): BP systolic 108–156; BP diastolic 53–108; PULSE 35–136; RESP 12–30; TEMP 31–36.9; O2SAT 83–929
--- NOTE | 2021-02-24 | DI.CT_ITS ---
Exam(s) CT HEAD WO EXAM: CT HEAD WO CLINICAL HISTORY: fall, headache, slight anisocoria, anticoagulated. TECHNIQUE: Imaging Protocol: Axial computed tomography images with coronal and sagittal reformatted images were created and reviewed COMPARISON: CT CT HEAD WO from 10/06/2020 FINDINGS: Ventricles and Extra axial spaces: Normal in size and morphology for the patient's age. Hemorrhage: None. Cerebral parenchyma: Normal. Midline shift: None. Brainstem/Cerebellum: Normal. Calvarium: Normal. Visualized Paranasal sinuses/Mastoids: Mucosal thickening ethmoid and maxillary sinuses. Mucous rete ntion sphenoid. Mastoids clear. Soft Tissues: Unremarkable. IMPRESSION: No acute intracranial process.Sinus disease. RADIATION DOSE DELIVERED: 899.5mGy.cm Total DLP DATA REPOSITORY: All CT scans at this facility are submitted to the National Radiology Data Registry (NRDR) Dose Index Registry (DIR) with the [employer] (A[employer]). RADIATION OPTIMIZATION: All CT scans at this facility use at least one of these dose optimization te chniques: automated exposure control; mA and/or kV adjustment per patient size (includes targeted exa ms where dose is matched to clinical indication); or iterative reconstruction.
[2021-02-24 02:35] LABS: Anion Gap 10.1 mmol/L (3-11); BUN 21 mg/dL (7-18); CO2 20.9 mmol/L (21.0-32.0); CREATININE 0.8 mg/dL (0.55-1.02); Chloride 101 mmol/L (98-107); Glucose 130 mg/dL (74-106); Potassium 3.7 mmol/L (3.5-5.1); Sodium 132 mmol/L (136-145)
[2021-02-24] MEDS: Acetaminophen 325 MG TAB PO ×2 (02:49→15:36)
[2021-02-24 06:52] LABS: Abs Immature Grans 0.12 10^3/uL (0.0-0.06); Absolute Basophil Count 0.02 10^3/uL (0.0-0.2); Absolute Lymphocyte Count 1.43 10^3/uL (1.2-3.4); Absolute Monocyte Count 0.47 10^3/uL (0.1-0.8); Absolute Neutrophil Count 5.72 10^3/uL (1.2-6.7); Basophils % 0.3; HCT 41.6 % (36.0-46.0); Immature Grans % 1.5; Lymphocytes % 18.4; MCH 29.4 pg (27.0-33.0); MCHC 33.7 % (32.0-36.0); MCV 87.2 fL (80-95); MPV 10.3 fL (8.0-11.0); Monocytes % 6.1; Neutrophils % 73.7; Nucleated RBC 0 %; Platelet Count 131 10^3/uL (130-400); RBC 4.77 10^6/uL (3.93-5.22); RDW 13.2 % (11.7-14.6); RDW-SD 42.2 fL; WBC 7.76 10^3/uL (4.4-10.8)
--- NOTE | 2021-02-24 07:00 | NUR.NOTE ---
Nursing Note: rapid response at 0552. pt fell, hit head. see rapid response intervention in the worklist. Transported to head CT, returned at 0700.
[2021-02-24 07:10] LABS: ALT 44 U/L (14-59); AST 50 U/L (15-37); Albumin 3.1 g/dL (3.4-5.0); Alkaline Phosphatase 104 U/L (46-116); BUN 21 mg/dL (7-18); Bilirubin, Total 0.3 mg/dL (0.2-1.0); C-Reactive Protein 6.27 mg/dL (0.0-0.3); CREATININE 0.7 mg/dL (0.55-1.02); Calcium 8.9 mg/dL (8.5-10.1); Chloride 102 mmol/L (98-107); Glucose 141 mg/dL (74-106); Potassium 3.3 mmol/L (3.5-5.1); Sodium 137 mmol/L (136-145); Total Protein 7.6 g/dL (6.4-8.2)
--- NOTE | 2021-02-24 07:50 | DI.VRAD_ITS ---
PROCEDURE INFORMATION: Exam: CT Head Without Contrast Exam date and time: 02/24/2021 6:27 AM Age: 50 years old Clinical indication: Injury or trauma; Blunt trauma (contusions or hematomas); Patient HX: Fall, headache, slight anisocoria, anticoagulated TECHNIQUE: Imaging protocol: Computed tomography of the head without contrast. COMPARISON: CT HEAD WO 10/06/2020 9:39 AM FINDINGS: Brain: No acute cerebrovascular accident. No acute intracranial hemorrhage. No mass, positive mass effect or midline shift. Cerebral ventricles: No ventriculomegaly. No hemorrhage. Paranasal sinuses: Pansinusitis, likely acute on chronic with air-fluid level within the sphenoid sinus and mucosal thickening throughout the ethmoid and maxillary sinuses. Aplastic frontal sinuses. Mastoid air cells: Mastoid air cells are unremarkable as demonstrated. Bones/joints: No linear or depressed skull fracture. No lytic or blastic lesion. Soft tissues: No significant soft tissue abnormalities demonstrated. IMPRESSION: 1. No acute intracranial abnormalities. 2. Pansinusitis, likely acute on chronic with air-fluid level within the sphenoid sinus and mucosal thickening throughout the ethmoid and maxillary sinuses. Dictated and Authenticated by: Facundo Sky MD. Ordering:CAMI Ross MD
--- NOTE | 2021-02-24 08:00 | RT.EKG_ITS ---
APPROVED REPORT Exam: Resting ECG Reason for Exam: pause Patient Location: I HR:109 bpm ECG Measurements Heart Rate 109 AXIS WI 184 P 64 QRSd 89 QRS 80 QT 336 T 28 QTc 452 Conclusion Sinus tachycardia...rate> 99 Low voltage, extremity leads...all extremity leads <0.5mV
[2021-02-24 08:11] LABS: D-Dimer 563 ng/mlFEU (<500)
[2021-02-24 08:20] LABS: Procalcitonin < 0.1 ng/mL
[2021-02-24] MEDS: Ipratropium/Albuterol 4 GM 120 PUFF INH IH ×4 (08:36→20:30)
[2021-02-24] MEDS: Benzonatate 200 MG CAP PO ×3 (08:42→19:43)
--- NOTE | 2021-02-24 08:49 | NUR.NOTE ---
RN calls pharmacy to check on Remdevisir. Same is not ready yet but will be delivered shortly.Nursing Note:
--- NOTE | 2021-02-24 09:02 | PGE_ITS ---
Date of Service Date of service: 02/24/21 Time of Service: 09:02 Assessment and Plan Assessment and plan (1) Pneumonia due to COVID-19 virus: Status: Acute Assessment and plan: Continue Remdesivir and Decadron with the addition of baricitinib. Continue oxygen mask as she did not tolerate her CPAP mask. Continue ICU monitoring (2) Diabetes: Status: Chronic Assessment and plan: Continue NPH 20 units twice a day, will overlap her insulin drip with mealtime coverage and additional long-acting insulin. (3) Hyperlipidemia: Status: Acute Assessment and plan: not currently on treatment but in light of Covid-19 should be on moderate to high dose statin (4) Heart block atrioventricular: Status: Acute Assessment and plan: Checking an echocardiogram to rule out structural heart disease from Covid. Dr. Kessler is concerned that the CT findings may in fact reflect septic pulmonary emboli. Blood cultures have been ordered. Echocardiogram has been ordered and being performed presently (5) DVT prophylaxis: Status: Acute Assessment and plan: In light of her heart block and syncopal spell I have discontinued full-strength anticoagulation and We will resume subcutaneous Lovenox 40 mg daily Subjective Subjective Interval history since last seen: Jesika had an eventful night last night. She was up to the bedside commode and just getting herself back to bed when she had a syncopal spell. This was associated with an episode of complete heart block last over 30 seconds. This occurred around 5:52 this morning. She was seen by Dr. Henry. She did hit her face on the bed. CT head was performed and no intracranial bleed or abnormalities other than pansinusitis. Apixaban has been stopped. Patient states that she feels more dyspneic this morning. her oxygen needs have increased to using CPAP or oxymask at 7 LPM. I have added Baricitinib 4 mg daily in addition to her Remdesivir and decadron. She has been practicing her proninig. She says that she now is coughing up bloody secretions. Sputum culture has been ordered. I had stopped her Rocephin because she had no evidence of bacterial pneumonia, her repeat procalcitonin was normal. However, her CT showed pansinusitis so I put her on Augmentin and added Flonase and sudafed. She did not sleep well so she is asking for something for sleep. She is still on the insulin drip but her glucose levels have been coming down to 166 to 215, her dexcom is running a little higher than this and I told nursing they could go by her dexcom rather than having to go in every hour to perform MBS. I am hopeful that we can get her off the insulin drip this afternoon and get her back on basal/bolus insulin. I have her on NPH because of the timing when NPH peaks, it correlated w/ the peaking effects of her decadron. Exam Narrative Exam Narrative: Patient is alert and oriented able to speak in complete sentences without breathlessness. HEENT reveals no ecchymosis and no abrasions Lungs with diffuse fine rales Heart is regular but tachycardic with no appreciable murmur Abdomen soft and nontender and nondistended Extremities without peripheral edema or calf tenderness Objective Last Vital Signs Temp 36 C L 02/24/21 04:07 Pulse 109 H 02/24/21 07:01 Resp 22 02/24/21 07:01 BP 121/66 02/24/21 07:01 Pulse Ox 92 02/24/21 07:01 Laboratory Results - last 24 hr 02/23/21 02/23/21 02/23/21 07:40 09:20 10:50 WBC 7.26 RBC 4.97 Hgb 14.6 Hct 44.8 MCV 90.1 MCH 29.4 MCHC 32.6 RDW 13.4 Plt Count 96 L D MPV 11.5 H Immature Gran % 3.9 Neutrophils % 72.1 Lymphocytes % 18.3 Monocytes % 5.0 Eosinophils % 0.0 Basophils % 0.7 Nucleated RBC % 0 Absolute Neutrophils 5.24 Absolute Lymphocytes 1.33 Absolute Monocytes 0.36 Absolute Eosinophils 0.00 Absolute Basophils 0.05 D-Dimer Sample Site Left Radial ABG pH 7.31 L ABG pCO2 21 L ABG pO2 84 ABG HCO3 11 L ABG Total CO2 11 L ABG O2 Saturation 96 ABG Base Excess -16 L FiO2 (liters per min) 2 Sodium 133 L Potassium 4.8 Chloride 97 L Carbon Dioxide 17.7 L Anion Gap 18.3 H BUN 17 Creatinine 0.9 Estimated GFR/1.73 m2 >= 60.00 Glucose 225 H D Calcium 8.9 Total Bilirubin AST ALT Alkaline Phosphatase C-Reactive Protein Total Protein Albumin Procalcitonin Urine Color Urine Clarity Urine pH Ur Specific [place] Urine Protein Urine Ketones Urine Blood Urine Nitrite Urine Bilirubin Urine Urobilinogen Ur Leukocyte Esterase Urine RBC Urine WBC Ur Epithelial Cells Urine Crystals Urine Bacteria Urine Casts Urine Mucus Urine Other Ur Culture Indicated? Urine Glucose 02/23/21 02/23/21 02/23/21 12:45 14:00 18:20 WBC RBC Hgb Hct MCV MCH MCHC RDW Plt Count MPV Immature Gran % Neutrophils % Lymphocytes % Monocytes % Eosinophils % Basophils % Nucleated RBC % Absolute Neutrophils Absolute Lymphocytes Absolute Monocytes Absolute Eosinophils Absolute Basophils D-Dimer Sample Site ABG pH ABG pCO2 ABG pO2 ABG HCO3 ABG Total CO2 ABG O2 Saturation ABG Base Excess FiO2 (liters per min) Sodium 133 L 133 L Potassium 5.0 3.9 D Chloride 97 L 101 Carbon Dioxide 17.2 L 19.2 L Anion Gap 18.8 H 12.8 H BUN 17 22 H Creatinine 1.3 H 1.0 Estimated GFR/1.73 m2 43.72 59.18 Glucose 300 H 277 H Calcium 9.1 9.2 Total Bilirubin AST ALT Alkaline Phosphatase C-Reactive Protein Total Protein Albumin Procalcitonin Urine Color Yellow Urine Clarity Clear Urine pH 5.5 Ur Specific [place] 1.020 Urine Protein 100 H Urine Ketones 80 H Urine Blood Trace-intact H Urine Nitrite Negative Urine Bilirubin Small H Urine Urobilinogen 0.2 Ur Leukocyte Esterase Negative Urine RBC 0-2 Urine WBC 0-2 Ur Epithelial Cells Few Urine Crystals Negative Urine Bacteria Few Urine Casts Negative Urine Mucus Negative Urine Other Negative Ur Culture Indicated? No Urine Glucose 500 H 02/23/21 02/24/21 02/24/21 22:10 02:20 06:07 WBC RBC Hgb Hct MCV MCH MCHC RDW Plt Count MPV Immature Gran % Neutrophils % Lymphocytes % Monocytes % Eosinophils % Basophils % Nucleated RBC % Absolute Neutrophils Absolute Lymphocytes Absolute Monocytes Absolute Eosinophils Absolute Basophils D-Dimer Sample Site ABG pH ABG pCO2 ABG pO2 ABG HCO3 ABG Total CO2 ABG O2 Saturation ABG Base Excess FiO2 (liters per min) Sodium 135 L 132 L 137 Potassium 4.0 3.7 3.3 L Chloride 101 101 102 Carbon Dioxide 22.6 20.9 L 23.0 Anion Gap 11.4 H 10.1 12.0 H BUN 22 H 21 H 21 H Creatinine 0.8 0.8 0.7 Estimated GFR/1.73 m2 >= 60.00 >= 60.00 >= 60.00 Glucose 169 H D 130 H 141 H Calcium 9.2 9.0 8.9 Total Bilirubin 0.3 AST 50 H ALT 44 Alkaline Phosphatase 104 C-Reactive Protein 6.27 H Total Protein 7.6 Albumin 3.1 L Procalcitonin Urine Color Urine Clarity Urine pH Ur Specific [place] Urine Protein Urine Ketones Urine Blood Urine Nitrite Urine Bilirubin Urine Urobilinogen Ur Leukocyte Esterase Urine RBC Urine WBC Ur Epithelial Cells Urine Crystals Urine Bacteria Urine Casts Urine Mucus Urine Other Ur Culture Indicated? Urine Glucose 02/24/21 02/24/21 02/24/21 06:07 06:07 06:07 WBC 7.76 RBC 4.77 Hgb 14.0 Hct 41.6 MCV 87.2 MCH 29.4 MCHC 33.7 RDW 13.2 Plt Count 131 MPV 10.3 Immature Gran % 1.5 Neutrophils % 73.7 Lymphocytes % 18.4 Monocytes % 6.1 Eosinophils % 0.0 Basophils % 0.3 Nucleated RBC % 0 Absolute Neutrophils 5.72 Absolute Lymphocytes 1.43 Absolute Monocytes 0.47 Absolute Eosinophils 0.00 Absolute Basophils 0.02 D-Dimer 563 H Sample Site ABG pH ABG pCO2 ABG pO2 ABG HCO3 ABG Total CO2 ABG O2 Saturation ABG Base Excess FiO2 (liters per min) Sodium Potassium Chloride Carbon Dioxide Anion Gap BUN Creatinine Estimated GFR/1.73 m2 Glucose Calcium Total Bilirubin AST ALT Alkaline Phosphatase C-Reactive Protein Total Protein Albumin Procalcitonin < 0.1 Urine Color Urine Clarity Urine pH Ur Specific [place] Urine Protein Urine Ketones Urine Blood Urine Nitrite Urine Bilirubin Urine Urobilinogen Ur Leukocyte Esterase Urine RBC Urine WBC Ur Epithelial Cells Urine Crystals Urine Bacteria Urine Casts Urine Mucus Urine Other Ur Culture Indicated? Urine Glucose
[2021-02-24] MEDS: Amoxicillin 875/Clav. 125 TAB PO ×2 (09:18→19:43)
[2021-02-24] MEDS: Loratidine 10 MG TAB PO (09:18)
[2021-02-24] MEDS: Potassium Chloride 20 MEQ TABCR PO ×3 (09:30→19:43)
[2021-02-24] MEDS: Normal Saline Flush 10 ML SYR IVP ×2 (09:41→19:44)
--- NOTE | 2021-02-24 09:57 | PUCC_ITS ---
General Date of Service Date of service: 02/24/21 Time of Service: 07:15 Reason for Admission to ICU: COVID-19 PNA and DKA Assessment and Plan Assessment and plan (1) Pneumonia due to COVID-19 virus: Status: Acute (2) Thrombocytopenia: Status: Chronic (3) Pansinusitis: Status: Acute Qualifiers: Chronicity: acute Recurrence: not specified as recurrent Qualified Code(s): J01.40 - Acute pansinusitis, unspecified (4) DKA (diabetic ketoacidosis): Status: Acute Qualifiers: Diabetes mellitus complication detail: without coma Diabetes mellitus type: type 2 Qualified Code(s): E11.10 - Type 2 diabetes mellitus with ketoacidosis without coma (5) Respiratory failure with hypoxia: Status: Acute Assessment and plan: This is a 50-year-old female with diabetes on Jardiance who is admitted to the ICU for COVID-19 pneumonia as well as glycemic DKA. A her labs show that her gap is closed and her bicarb is appropriate so she is likely to safe come off the drip, I would not take her off the drip if her bicarb is below 18 or her gap is open. Her chest CT is quite interesting as her imaging is consistent with an embolic process however her pro Thiago is negative and she is not toxic appearing. It could be that this is all a result of Covid pneumonia however I will obtain blood cultures to ensure she is not bacteremic. Qualifiers: Chronicity: acute Qualified Code(s): J96.01 - Acute respiratory failure with hypoxia Recommendations Pulmonary: Hypoxic Respiratory Failure - supplemental O2 to a sat >90% - recommend CPAP at night - proning when able - recommend incentive spirometry and VibraPEP - recommend Duonebs q4hr as needed Cardiac: Sinus Pause Clinically seems as though this was a vasovagal episode, however the pause was quite impressive - stat EKG - recommend TTE Renal: Positive volume status She is 1400cc positive during the admission, if anything she should be made on the negative side dry lungs are happy lungs - recommend 5mg indapamide daily to help achieve this - strict I/O's I&O: Intake & Output 02/21/21 02/22/21 02/23/21 02/24/21 23:59 23:59 23:59 23:59 Intake Total 1050 / 1050 1509.30 / 1509.30 34.341 / 34.341 Output Total 1100 / 1100 350 / 350 Balance 1050 / 1050 409.30 / 409.30 -315.659 / -315.659 Weight 100.344 kg Daily Fluid Goal:: negative 500cc GI Nutrition: Ok for diabetic diet Date of Last Bowel Movement: 02/21/21 Infectious Disease: COVID-19 PNA - recommend trending CRP, ESR, ferritin and d-dimer every other day or daily - recommend continue Decadron and remdesivir - recommend starting barcitinib given respiratory worsening Pansinusitis - agree with a course of Augmentin - agree with Flonase Hematologic: Thrombocytopenia, improving She was placed on empiric therapeutic anticoagulation for Covid, however there is no good data to support empiric full anticoagulation just in the setting of Covid. I would recommend typical DVT prophylaxis with Lovenox and less there is a clear suspicion for clot. Her POCUS on bedside today showed a normal RV size and function so it is unlikely she has a hemodynamically significant PE. If there is concern for DVT she cannot always undergo duplex exam. Additionally in the setting of her thrombocytopenia, full anticoagulation likely carries more risk than it would provide benefit, particularly now in the setting of a sinus pause and a fall. - recommend stopping therapeutic anti-coagulation of any kind - recommend Lovenox for DVT ppx - if concern for DVT recommend 4 extremity Duplex Neurologic: No acute concerns - head CT clear from today Endocrine: Euglycemic DKA - continue insulin gtt until GAP closed and bicarb >18 - recommend discontinuing NPH bid insulin - recommend starting her home Lantus 25 units daily - this can be increased (or made bid dosing) as needed in the setting of Decadron while admitted. Lines: PIV Prophylaxis: Lovenox for DVT ppx Can consider adding GI ppx in the setting of steroid use Code Status: Resuscitation Status Full Code Subjective Critical and life-threatening events over the past 24 hours: This is an unvaccinated 50-year-old female who was admitted with COVID-19 pneumonia and unfortunately went into DKA while on the floor in the setting of being on an SGLT2 inhibitor as well as being on Decadron for her Covid. Her oxygen requirements increased overnight and is now on 6 L nasal cannula. She also had an episode of a cardiac pause that resulted in a fall. Her head CT was negative for this but did show pansinusitis. Exam Narrative Exam Narrative: POCUS 02/24/21: All views visualized, subxyphoid view limited due to gas. Normal LV function, normal EF. No pericardial effusion. RV appears normal in size and function. RA wall had a hyperechoic appearance, but not within the atrial cavity. I only saw this on a 4 chamber view and so am unsure what to make of this. The IVC was plethoric. Const General: in distress mild Nutritional Appearance: well nourished [facility] Head: normocephalic Ears: external ears normal and no periauricular adenopathy General nose exam: nasal mucous membranes and turbinates normal Face and sinus: sinus tenderness Mouth: oropharynx normal and moist mucous membranes Teeth and gingiva: dentition normal Eyes General: appearance normal, both eyes and all related structures Pupils: PERRL Neck Neck: normal visual inspection and no lymphadenopathy Chest Chest: normal inspection of the chest Resp Effort & Inspection: normal respiratory effort Auscultation: diminished lung sounds, no rales, no rhonchi and no wheezes Cardio Rate: regular rate Rhythm: regular rhythm Heart Sounds: S1 normal, S2 normal and no murmurs Pulses: radial pulses present bilaterally GI Inspection: normal to inspection Palpation: soft Skin General skin exam: no rashes or lesions noted Neuro General: patient alert, patient awake and patient oriented x3 Extrem General: no clubbing, cyanosis or edema Psych Mental Status: mental status grossly normal Affect: normal affect Attitude: cooperative Most Recent VS/Results Last Vital Signs Temp 36 C L 02/24/21 04:07 Pulse 109 H 02/24/21 07:01 Resp 22 02/24/21 07:01 BP 121/66 02/24/21 07:01 Pulse Ox 92 02/24/21 07:01 Laboratory Results - last 24 hr 02/23/21 02/23/21 02/23/21 10:50 12:45 14:00 WBC RBC Hgb Hct MCV MCH MCHC RDW Plt Count MPV Immature Gran % Neutrophils % Lymphocytes % Monocytes % Eosinophils % Basophils % Nucleated RBC % Absolute Neutrophils Absolute Lymphocytes Absolute Monocytes Absolute Eosinophils Absolute Basophils D-Dimer Sodium 133 L 133 L Potassium 4.8 5.0 Chloride 97 L 97 L Carbon Dioxide 17.7 L 17.2 L Anion Gap 18.3 H 18.8 H BUN 17 17 Creatinine 0.9 1.3 H Estimated GFR/1.73 m2 >= 60.00 43.72 Glucose 225 H D 300 H Calcium 8.9 9.1 Total Bilirubin AST ALT Alkaline Phosphatase C-Reactive Protein Total Protein Albumin Procalcitonin Urine Color Yellow Urine Clarity Clear Urine pH 5.5 Ur Specific [place] 1.020 Urine Protein 100 H Urine Ketones 80 H Urine Blood Trace-intact H Urine Nitrite Negative Urine Bilirubin Small H Urine Urobilinogen 0.2 Ur Leukocyte Esterase Negative Urine RBC 0-2 Urine WBC 0-2 Ur Epithelial Cells Few Urine Crystals Negative Urine Bacteria Few Urine Casts Negative Urine Mucus Negative Urine Other Negative Ur Culture Indicated? No Urine Glucose 500 H 02/23/21 02/23/21 02/24/21 18:20 22:10 02:20 WBC RBC Hgb Hct MCV MCH MCHC RDW Plt Count MPV Immature Gran % Neutrophils % Lymphocytes % Monocytes % Eosinophils % Basophils % Nucleated RBC % Absolute Neutrophils Absolute Lymphocytes Absolute Monocytes Absolute Eosinophils Absolute Basophils D-Dimer Sodium 133 L 135 L 132 L Potassium 3.9 D 4.0 3.7 Chloride 101 101 101 Carbon Dioxide 19.2 L 22.6 20.9 L Anion Gap 12.8 H 11.4 H 10.1 BUN 22 H 22 H 21 H Creatinine 1.0 0.8 0.8 Estimated GFR/1.73 m2 59.18 >= 60.00 >= 60.00 Glucose 277 H 169 H D 130 H Calcium 9.2 9.2 9.0 Total Bilirubin AST ALT Alkaline Phosphatase C-Reactive Protein Total Protein Albumin Procalcitonin Urine Color Urine Clarity Urine pH Ur Specific [place] Urine Protein Urine Ketones Urine Blood Urine Nitrite Urine Bilirubin Urine Urobilinogen Ur Leukocyte Esterase Urine RBC Urine WBC Ur Epithelial Cells Urine Crystals Urine Bacteria Urine Casts Urine Mucus Urine Other Ur Culture Indicated? Urine Glucose 02/24/21 02/24/21 02/24/21 06:07 06:07 06:07 WBC 7.76 RBC 4.77 Hgb 14.0 Hct 41.6 MCV 87.2 MCH 29.4 MCHC 33.7 RDW 13.2 Plt Count 131 MPV 10.3 Immature Gran % 1.5 Neutrophils % 73.7 Lymphocytes % 18.4 Monocytes % 6.1 Eosinophils % 0.0 Basophils % 0.3 Nucleated RBC % 0 Absolute Neutrophils 5.72 Absolute Lymphocytes 1.43 Absolute Monocytes 0.47 Absolute Eosinophils 0.00 Absolute Basophils 0.02 D-Dimer 563 H Sodium 137 Potassium 3.3 L Chloride 102 Carbon Dioxide 23.0 Anion Gap 12.0 H BUN 21 H Creatinine 0.7 Estimated GFR/1.73 m2 >= 60.00 Glucose 141 H Calcium 8.9 Total Bilirubin 0.3 AST 50 H ALT 44 Alkaline Phosphatase 104 C-Reactive Protein 6.27 H Total Protein 7.6 Albumin 3.1 L Procalcitonin Urine Color Urine Clarity Urine pH Ur Specific [place] Urine Protein Urine Ketones Urine Blood Urine Nitrite Urine Bilirubin Urine Urobilinogen Ur Leukocyte Esterase Urine RBC Urine WBC Ur Epithelial Cells Urine Crystals Urine Bacteria Urine Casts Urine Mucus Urine Other Ur Culture Indicated? Urine Glucose 02/24/21 06:07 WBC RBC Hgb Hct MCV MCH MCHC RDW Plt Count MPV Immature Gran % Neutrophils % Lymphocytes % Monocytes % Eosinophils % Basophils % Nucleated RBC % Absolute Neutrophils Absolute Lymphocytes Absolute Monocytes Absolute Eosinophils Absolute Basophils D-Dimer Sodium Potassium Chloride Carbon Dioxide Anion Gap BUN Creatinine Estimated GFR/1.73 m2 Glucose Calcium Total Bilirubin AST ALT Alkaline Phosphatase C-Reactive Protein Total Protein Albumin Procalcitonin < 0.1 Urine Color Urine Clarity Urine pH Ur Specific [place] Urine Protein Urine Ketones Urine Blood Urine Nitrite Urine Bilirubin Urine Urobilinogen Ur Leukocyte Esterase Urine RBC Urine WBC Ur Epithelial Cells Urine Crystals Urine Bacteria Urine Casts Urine Mucus Urine Other Ur Culture Indicated? Urine Glucose Review of Systems All systems reviewed & are unremarkable except as noted in HPI and below Constitutional Constitutional: Reports fatigue and Reports headache(s) ENT Ears, Nose, Mouth, and Throat: Reports dizziness, Reports facial pain and Reports headache(s) Cardiovascular Cardiovascular: Reports syncope, Reports dyspnea, Reports dyspnea on exertion and Reports orthopnea Respiratory Respiratory: Reports cough, Reports dyspnea and Reports dyspnea on exertion Neurologic Neurologic: Reports dizziness, Reports syncope and Reports headache(s) Endocrine Endocrine: Reports fatigue Time spent with patient Time spent in Critical Care: 45 Time spent in Critical care included: Coordination of care, Chart review, Doc umenting critically ill care, Time at immediate bedside and Discussing critically ill care with other medical staff
[2021-02-24] MEDS: Insulin NPH-Human 300 UNITS/3 ML PEN 20 UNIT SC ×2 (10:28→17:27)
[2021-02-24] MEDS: Dexamethasone 4 MG/ML VIAL 6 MG IVP (10:29)
[2021-02-24] MEDS: Fluticasone NASAL SPRAY 16 GM BTL NS (10:56)
[2021-02-24] MEDS: INSULIN REGULAR IN 0.9 % NACL 100 UNIT/100 ML BAG IV (11:02)
--- NOTE | 2021-02-24 11:45 | W.INDIABCONS ---
Date of service: 02/24/21 Time of Service: 11:45 Diabetes Inpatient Consult DESCRIPTION/ASSESSMENT: 50 yo female admitted with covid+ Respiratory failure with DKA with Hx of obesity, HLD. Home DM meds: jardiance, metformin. Most recent A1c: 9% indicating poorly controlled DM. In covid isolation at this time. Following diabetic low salt with with adequate intake to meeting needs. Unable to meet pt due to covid status. Med chart indicates uses a Dexcom continuous glucose monitor. PLAN: will monitor po intake, labs and be available prn for education when appropriate. At time of discharge, recommend adding basal insulin for improved glycemic control Time Spent in Nutritional Counseling and Treatment: 0
[2021-02-24 11:52] LABS: Anion Gap 15.1 mmol/L (3-11); BUN 19 mg/dL (7-18); CO2 19.9 mmol/L (21.0-32.0); CREATININE 0.6 mg/dL (0.55-1.02); Calcium 8.3 mg/dL (8.5-10.1); Chloride 101 mmol/L (98-107); Glucose 182 mg/dL (74-106); Potassium 3.7 mmol/L (3.5-5.1); Sodium 136 mmol/L (136-145)
--- NOTE | 2021-02-24 12:36 | DI.US_ITS ---
APPROVED REPORT EXAM: Comprehensive 2D, Doppler, and color-flow Echocardiogram Patient Location: In-Patient Room/Bed: XOF884 Pit Clerk: Abida Cortez RDCS (AE) Indications: Syncope Other Information Study Quality: Fair. Technically limited study due to body habitus, inability to position patient. Conclusion Normal left ventricular wall thickness. The LV is small and hypercontractile. Estimated ejection fr action is 65 to 70%. Wall motion is normal Normal right ventricular size and systolic function Both atria are normal in size There is no structural or hemodynamically significant valvular disease Wall motion Left Ventricle The left ventricle is normal size. The left ventricle is small and hyperdynamic There is normal left ventricular wall thickness. There is normal LV segmental wall motion. There is no ventricular septal defect visualized. LVEF is 65-70%. Right Ventricle Right ventricle is grossly normal in size. Right ventricular systolic function is grossly normal. Atria The left atrium size is normal. The right atrium size is normal. The interatrial septum is intact wit h no evidence for an atrial septal defect. Aortic Valve The aortic valve is normal in structure. There is no aortic valvular stenosis. No aortic regurgitatio n is present. Mitral Valve The mitral valve is normal in structure. No evidence of mitral valve stenosis. Trace mitral regurgita tion. Tricuspid Valve The tricuspid valve is normal in structure. There is no tricuspid valve stenosis. Trace tricuspid reg urgitation. Unable to assess PA pressure. Pulmonic Valve The pulmonary valve is normal in structure. There is no pulmonic valvular stenosis. There is no pulmo maureen valvular regurgitation. Great Vessels The aortic root is normal in size. The ascending aorta is normal in size. Aortic arch is not well vis ualized. IVC is normal in size and collapses >50% with normal respiration. Pericardium There is no pericardial effusion. 2D Dimensions IVSD d PLAX 1.05 cm F: 0.6-1.0 LV Vol A2C d MOD 52.2 mL LVPW d PLAX 1.05 cm F: 0.6 - 1.0 LV Vol A4C d MOD 105.7 mL LVID d PLAX 4.12 cm F: 3.8 - 5.2 LA vol/ BSA A2C s A-L 13.6 mL/m2 LVDs 2.80 cm F: 2.2 - 3.5 LA vol/ BSA A4C s A-L 11.3 mL/m2 Ao Root d 2.70 cm F: 2.7 - 3.3 LA Vol/ BSA Biplane s A-L 12.6 mL/m2 Ao Asc Diam d 3.15 cm F: 2.3 - 3.1 LA Area A4C s MOD 11.61 cm2 LV EF Teichholz 60.7 % LA Area A2C s MOD 12.50 cm2 LVEF (Jones's) 60.12 % F: 54 - 74 LV EF A4C MOD 60.6 % LV Volume 56.81 mL F: 46 - 106 LV EF A2C MOD 58.4 % LV Volume Index 26.17 mL/m2 F: 29 - 61 LV EF Biplane MOD 60.1 % LV Vol Biplane MOD 77.9 mL SV 46.81 mL FS 32.05 % SV Index 21.49 mL/m2 M-Mode TAPSE 2.76 cm (M/F) >1.7 LV Diastology MV E' medial 0.073 (>0.07 m/s) MV E Vmax 0.76 (0.4-1.3 m/s) LV E/e MED 10.40 (<14) MV E' lateral 0.154 (>0.1 m/s) LV E/e LAT 4.95 (<14) MV E/E' medial 10.40 MV E/E' lateral 4.95 Aortic Valve LVOT Area 2.60 cm2 AoV Area Vmax 1.91 cm2 LVOT Vmax 1.25 m/s AoV Area/ BSA (Vmax) 0.88 cm2/m2 LVOT Mean Marquise. 0.81 m/s AMANDA Mean Marquise. 1.70 cm2 LVOT Peak Grad 6.3 mmHg AMANDA Mean Marquise. Index 0.78 cm2/m2 LVOT Mean Grad 3.1 mmHg LVOT VTI 0.190 m LVOT Diam s 1.80 cm AoV Vmax 1.71 m/s Velocity Ratio 0.73 AoV Mean Marquise. 1.25 m/s AoV Peak Grad 11.6 mmHg LVOT SV 49.41 mL AoV Mean Grad 7.0 mmHg AoV VTI 0.249 m AoV Area VTI 1.98 cm2 AoV Area/ BSA (VTI) 0.91 cm/m2 Mitral Valve MV DT 273 (160-240 msec) MV PHT 79 msec MV Area PHT 2.78 cm2 MV VTI 0.163 m MV Area VTI 3.03 (4.0-6.0 cm2) Pulmonary Valve PV Vmax 1.43 (0.5-1.5 m/s) RVOT Peak Gr. 3.88 mmHg PV Peak Grad 8.1 mmHg RVOT Mean Gr. 2.15 mmHg PV Mean Grad 4.5 mmHg RVOT VTI 0.131 m PV VTI 0.195 m RVOT Vmax 0.99 m/s
--- NOTE | 2021-02-24 14:11 | NUR.NOTE ---
Echocardiogram completed at 11:30 a.m. today.Nursing Note:
--- NOTE | 2021-02-24 14:11 | NUR.NOTE ---
BMP is drawn by lab. Will check anion gap shortly. Earlier RN reported latest anion gap of 15.1 to MD. Patient presently receiving 8units/hr of insulin.Nursing Note:
[2021-02-24 14:15] LABS: Anion Gap 13.9 mmol/L (3-11); BUN 16 mg/dL (7-18); CO2 22.1 mmol/L (21.0-32.0); CREATININE 0.9 mg/dL (0.55-1.02); Calcium 8.7 mg/dL (8.5-10.1); Chloride 100 mmol/L (98-107); Glucose 223 mg/dL (74-106); Potassium 3.8 mmol/L (3.5-5.1); Sodium 136 mmol/L (136-145)
--- NOTE | 2021-02-24 14:16 | PHA.REVIEW ---
Pharmacy Admission Review - Admission Clinical Review (Last Reviewed 02/22/21 @ 19:52 by Carlos Davis) Heart block atrioventricular (Acute) Respiratory failure with hypoxia (Acute) DKA (diabetic ketoacidosis) (Acute) Pansinusitis (Acute) DVT prophylaxis (Acute) Pneumonia due to COVID-19 virus (Acute) Hyperlipidemia (Acute) ustekinumab [From Stelara] Adverse Reaction (Intermediate, Verified 02/22/21 10:15) tremor tachycardia Resuscitation Status Full Code Height 5 ft 10 in Weight 100.344 kg - Renal Dosing Renal Dosing: BUN 16 mg/dL (7-18) 02/24/21 14:00 Creatinine 0.9 mg/dL (0.55-1.02) 02/24/21 14:00 Medications needing adjustments: Reviewed - Anticoagulation Anticoagulation: Hgb 14.0 g/dL (11.2-15.7) 02/24/21 06:07 Hct 41.6 % (36.0-46.0) 02/24/21 06:07 Plt Count 131 10^3/uL (130-400) 02/24/21 06:07 INR 1.0 (0.9-1.1) 02/22/21 13:10 Creatinine 0.9 mg/dL (0.55-1.02) 02/24/21 14:00 DVT Prophylaxis: Reviewed Medications: Enoxaparin - Opiate Usage Evaluate Pain Scale/Pains Meds: N/A - Relevant Labs Sodium 136 mmol/L (136-145) 02/24/21 14:00 Potassium 3.8 mmol/L (3.5-5.1) 02/24/21 14:00 Chloride 100 mmol/L (98-107) 02/24/21 14:00 Magnesium 2.1 mg/dL (1.8-2.4) 02/23/21 07:40 C-Reactive Protein 6.27 mg/dL (0.0-0.3) H 02/24/21 06:07 Electrolytes, C-Reactive P, ESR: Reviewed - DM Control DM Control: Glucose 223 mg/dL (74-106) H 02/24/21 14:00 Finger Stick Blood Glucose 215 Finger Stick Blood Glucose 166 Finger Stick Blood Glucose 166 Finger Stick Blood Glucose 166 Insulin Dosing: Reviewed (insulin gtt currently; uses 25 u of glargine at home plus SS with lispro) - Heart Failure/NY Heart Failure/NY: Troponin I < 0.05 ng/mL (<0.06) 02/22/21 13:10 NT-Pro-B Natriuret Pep 30 pg/mL (<300) 02/22/21 13:10 EF%, KATLIN's, B-Blockers, Diuretics: Reviewed - BP Control BP Control: Blood Pressure [Left Arm] 149/84 Blood Pressure 126/67 Blood Pressure 130/53 Blood Pressure 121/66 Blood Pressure 125/74 Blood Pressure 125/74 Blood Pressure 125/74 Blood Pressure 140/72 Blood Pressure 113/58 Blood Pressure 123/91 Blood Pressure 137/108 If elevated: Reviewed - Qtc Review List meds needing interventions: QTc 452 - IV to PO Switch IV Medications: Reviewed - Home Meds Home Med List reviewed: Intervened Relevent Home Meds Not ordered & why?: several medications were not included when med rec was done on admission -- insulin glargine (basaglar), insulin lispro (humalog), rosuvastatin, Ozempic, norethindrone and fenofibrate; has a biologic DMARD on med list (guselkumab) but rx hx reveals it hasn't been filled since 04/2020 so not concerned about addition of baricitinib - Current meds Current Medication Order Review: Reviewed (atorvastatin ordered despite patient being on rosuvastatin at home due to med rec being incomplete on admission -- both doses are considered high intensity so will leave as is; baricitinib was started today for worsening covid sx, remdesivir continues, dexamethasone continues) - Comments Comments/Follow Ups: anticipate insulin gtt to be stopped and home basal insulin started (25 u at hs) today; baricitinib started today at 4mg daily -- continue for 14 days or until discharge whichever is sooner; PO augmentin started today and anticoagulation was changed to regular dvt px dosing; blood cultures are pending to r/o bacteremia
[2021-02-24] MEDS: Pantoprazole 40 MG TABCR PO (14:17)
[2021-02-24] MEDS: Enoxaparin 40 MG/0.4 ML SYR SC (14:17)
--- NOTE | 2021-02-24 17:31 | NUR.NOTE ---
Insulin drip is restarted after 30 minute reprieve per protocol. Drip is restarted at 9 units/hr.
--- NOTE | 2021-02-24 18:10 | NUR.NOTE ---
BMP is drawn by laboratory courier.Nursing Note:
[2021-02-24 18:16] LABS: Anion Gap 12.1 mmol/L (3-11); BUN 18 mg/dL (7-18); CO2 22.9 mmol/L (21.0-32.0); CREATININE 0.7 mg/dL (0.55-1.02); Calcium 8.9 mg/dL (8.5-10.1); Chloride 102 mmol/L (98-107); Glucose 236 mg/dL (74-106); Sodium 137 mmol/L (136-145)
--- NOTE | 2021-02-24 18:48 | PDOC.CMPRO ---
- If Service Date Differs Date of service: 02/24/21 Time of Service: 18:48 Care Management Progress Note S/O: Per report, Jesika had a syncopal episode early this morning and hit her face on her bed. She had a CT scan, which was negative for intracranial bleed. An echo was ordered today to rule out structural heart disease from Covid. CM was unable to visit due to Covid precautions, but will continue to follow and support pt with discharge planning considerations. A: Jesika is a 50 year old female admitted to [facility] on 02/22/21 with Covid pneumonia. P: Anticipate Jesika will return home when medically cleared. She will be transported via private vehicle by family. She will follow up with her PCP and discharge plan of care. CM will continue to follow.
[2021-02-24] MEDS: Insulin NPH-Human 300 UNITS/3 ML PEN 10 UNIT SC (18:53)
[2021-02-24] MEDS: Insulin Aspart 300 UNITS/3 ML PEN 20 UNITS SC (18:53)
[2021-02-24] MEDS: Atorvastatin 40 MG TAB PO (19:43)
--- NOTE | 2021-02-24 19:45 | NUR.NOTE ---
Per Dr. Davis's telephonic verbal order, dc insulin drip at 19:30 today, 02-24-2021.Nursing Note:
[2021-02-24] MEDS: Insulin Glargine 300 UNITS/3 ML PEN 25 UNITS SC (21:55)
[2021-02-24] MEDS: Zolpidem 6.25 MG TABCR PO (22:21)
[2021-02-24] MEDS: Escitalopram 10 MG TAB PO (22:21)
[2021-02-25] VITALS (45 sets, daily range): BP systolic 103–149; BP diastolic 54–89; PULSE 85–133; RESP 14–29; TEMP 31–36.7; O2SAT 84–97
[2021-02-25 07:11] LABS: HCT 43.1 % (36.0-46.0); HGB 14.4 g/dL (11.2-15.7); MCH 29.3 pg (27.0-33.0); MCHC 33.4 % (32.0-36.0); MCV 87.8 fL (80-95); MPV 11.1 fL (8.0-11.0); Nucleated RBC 0 %; RBC 4.91 10^6/uL (3.93-5.22); RDW 13.4 % (11.7-14.6); RDW-SD 43.1 fL; WBC 7.99 10^3/uL (4.4-10.8)
[2021-02-25 07:29] LABS: ESR 60 mm/hr (0-20)
[2021-02-25 07:32] LABS: ALT 38 U/L (14-59); AST 37 U/L (15-37); Alkaline Phosphatase 105 U/L (46-116); Anion Gap 14.2 mmol/L (3-11); BUN 17 mg/dL (7-18); Bilirubin, Total 0.4 mg/dL (0.2-1.0); C-Reactive Protein 10.78 mg/dL (0.0-0.3); CO2 21.8 mmol/L (21.0-32.0); CREATININE 0.5 mg/dL (0.55-1.02); Calcium 8.5 mg/dL (8.5-10.1); Chloride 100 mmol/L (98-107); Glucose 182 mg/dL (74-106); Potassium 3.5 mmol/L (3.5-5.1); Sodium 136 mmol/L (136-145); Total Protein 7.7 g/dL (6.4-8.2)
[2021-02-25 07:39] LABS: Absolute Neutrophil Count 6.15 10^3/uL (1.2-6.7); Bands % 3
[2021-02-25 07:40] LABS: Absolute Lymphocyte Count 1.76 10^3/uL (1.2-3.4); Absolute Monocyte Count 0.08 10^3/uL (0.1-0.8); Atypical Lymphocytes % 5; Diff Comment Manual Differential; RBC Morphology Normal
[2021-02-25 07:41] LABS: Platelet Count 185 10^3/uL (130-400)
[2021-02-25] MEDS: Amoxicillin 875/Clav. 125 TAB PO ×2 (07:45→19:42)
[2021-02-25] MEDS: Benzonatate 200 MG CAP PO ×3 (07:46→19:42)
[2021-02-25] MEDS: Loratidine 10 MG TAB PO (07:46)
[2021-02-25] MEDS: Pantoprazole 40 MG TABCR PO (07:46)
[2021-02-25] MEDS: Potassium Chloride 20 MEQ TABCR PO ×3 (07:47→19:42)
[2021-02-25] MEDS: Enoxaparin 40 MG/0.4 ML SYR SC (07:47)
[2021-02-25] MEDS: Dexamethasone 4 MG/ML VIAL 6 MG IVP (07:47)
[2021-02-25 07:51] LABS: D-Dimer 669 ng/mlFEU (<500)
[2021-02-25 07:56] LABS: Ferritin 660 ng/mL (8-252)
[2021-02-25] MEDS: Insulin NPH-Human 300 UNITS/3 ML PEN 30 UNIT SC ×3 (09:24→20:39)
[2021-02-25] MEDS: Fluticasone NASAL SPRAY 16 GM BTL NS (11:37)
--- NOTE | 2021-02-25 14:14 | NUR.NOTE ---
Combivent is given to patient.Nursing Note:
--- NOTE | 2021-02-25 16:19 | PGE_ITS ---
Date of Service Date of service: 02/25/21 Time of Service: 16:20 Assessment and Plan Assessment and plan (1) Pneumonia due to COVID-19 virus: Status: Acute Assessment and plan: Continue Remdesivir and Decadron with the addition of baricitinib. Now tolerating CPAP mask. Continue ICU monitoring (2) Diabetes: Status: Chronic Assessment and plan: Continue NPH 20 units twice a day, will overlap her insulin drip with mealtime coverage and additional long-acting insulin. INflammatory markers essentially unchanged. Cont to follow. (3) Hyperlipidemia: Status: Acute Assessment and plan: not currently on treatment but in light of Covid-19 should be on moderate to high dose statin; atorvastatin 40mg po HS was initiated. (4) Heart block atrioventricular: Status: Acute Assessment and plan: Checking an echocardiogram to rule out structural heart disease from Covid. Dr. Kessler is concerned that the CT findings may in fact reflect septic pulmonary emboli. Blood cultures have been ordered. Echocardiogram showed EF of 65-70%. Normal wall motion. No structural abnormalities. No pericardial effusion. (5) DVT prophylaxis: Status: Acute Assessment and plan: Cont subcutaneous Lovenox 40 mg daily Subjective Subjective Patient reports: feels better and afebrile; denies nausea and vomiting Interval history since last seen: She states that she is tolerating CPAP better and was able to sleep most of the day with CPAP in place. + adrianna colored sputum being expectorated. Exam Narrative Exam Narrative: Sitting on edge of bed. Oxymask in place. Const General: cooperative, no acute distress and ill appearing acutely Nutritional Appearance: obese Orientation: alert, awake and oriented x3 HENMT Head: normal to inspection Ears: hearing grossly normal bilaterally Face and sinus: normal facial exam Eyes General: appearance normal, both eyes and all related structures Alignment and Position: alignment normal Periorbital: periorbital findings normal Eyelids: eyelids normal Conjunctivae: conjunctivae normal Sclera: sclerae normal Cornea: corneas normal EOM: EOM intact bilaterally Neck Neck: normal visual inspection, full ROM, no meningeal signs, trachea midline and no JVD Chest Chest: normal inspection of the chest Resp Effort & Inspection: able to speak in complete sentences and cough Quality of co ugh: actively coughing Auscultation: crackles bilaterally throughout Cardio Jugular venous pressure: no JVD Palpation: normal PMI Rate: tachycardic Rhythm: regular rhythm Heart Sounds: S1 normal, S2 normal, no gallops, no murmurs and no rubs GI Inspection: obesity Palpation: soft and no hepatosplenomegaly Auscultation: normal bowel sounds Skin General skin exam: no rashes or lesions noted Rashes: other (tatoo over left lower leg) Hair: normal Extrem General: normal to inspection, no pedal edema and no calf tenderness Psych Appearance: grossly normal Mental Status: mental status grossly normal Speech and Movement: speech and movement normal Mood: congruent mood Affect: normal affect Attitude: cooperative Thought Process: normal Thought Content: normal Insight: insight good Judgment: judgment good Objective Last Vital Signs Temp 35.6 C L 02/25/21 15:49 Pulse 107 H 02/25/21 15:49 Resp 23 02/25/21 15:49 BP 103/63 02/25/21 15:49 Pulse Ox 93 02/25/21 15:49 Laboratory Results - last 24 hr 02/24/21 02/25/21 02/25/21 18:00 06:30 06:30 WBC 7.99 RBC 4.91 Hgb 14.4 Hct 43.1 MCV 87.8 MCH 29.3 MCHC 33.4 RDW 13.4 Plt Count 185 MPV 11.1 H Immature Gran % 0.0 Neutrophils % 74.0 Band Neutrophils % 3 Lymphocytes % 17.0 Atypical Lymphs % 5 Monocytes % 1.0 Eosinophils % 0.0 Basophils % 0.0 Nucleated RBC % 0 Absolute Neutrophils 6.15 Absolute Lymphocytes 1.76 Absolute Monocytes 0.08 L Absolute Eosinophils 0.00 Absolute Basophils 0.00 RBC Morphology Normal ESR D-Dimer Sodium 137 136 Potassium 4.0 3.5 Chloride 102 100 Carbon Dioxide 22.9 21.8 Anion Gap 12.1 H 14.2 H BUN 18 17 Creatinine 0.7 0.5 L Estimated GFR/1.73 m2 >= 60.00 >= 60.00 Glucose 236 H 182 H Calcium 8.9 8.5 Ferritin 660 H Total Bilirubin 0.4 AST 37 ALT 38 Alkaline Phosphatase 105 C-Reactive Protein 10.78 H Total Protein 7.7 Albumin 3.0 L 02/25/21 02/25/21 06:30 06:30 WBC RBC Hgb Hct MCV MCH MCHC RDW Plt Count MPV Immature Gran % Neutrophils % Band Neutrophils % Lymphocytes % Atypical Lymphs % Monocytes % Eosinophils % Basophils % Nucleated RBC % Absolute Neutrophils Absolute Lymphocytes Absolute Monocytes Absolute Eosinophils Absolute Basophils RBC Morphology ESR 60 H D-Dimer 669 H Sodium Potassium Chloride Carbon Dioxide Anion Gap BUN Creatinine Estimated GFR/1.73 m2 Glucose Calcium Ferritin Total Bilirubin AST ALT Alkaline Phosphatase C-Reactive Protein Total Protein Albumin
--- NOTE | 2021-02-25 16:47 | NUR.NOTE ---
RN calls dietary to order a turkey sandwich and fruit as per patient's request.Nursing Note:
[2021-02-25] MEDS: Ipratropium/Albuterol 4 GM 120 PUFF INH IH ×2 (17:50→19:45)
[2021-02-25] MEDS: Insulin Glargine 300 UNITS/3 ML PEN 35 UNITS SC (19:41)
[2021-02-25] MEDS: Atorvastatin 40 MG TAB PO (19:42)
[2021-02-25] MEDS: Escitalopram 10 MG TAB PO (22:22)
[2021-02-25] MEDS: Zolpidem 6.25 MG TABCR PO (22:22)
[2021-02-26] VITALS (39 sets, daily range): BP systolic 106–128; BP diastolic 58–81; PULSE 75–124; RESP 16–34; TEMP 35–36.8; O2SAT 84–100
[2021-02-26 06:33] LABS: HCT 43.6 % (36.0-46.0); HGB 14.7 g/dL (11.2-15.7); MCH 29.2 pg (27.0-33.0); MCHC 33.7 % (32.0-36.0); MCV 86.7 fL (80-95); MPV 11.3 fL (8.0-11.0); Nucleated RBC 0 %; Platelet Count 228 10^3/uL (130-400); RBC 5.03 10^6/uL (3.93-5.22); RDW 13.4 % (11.7-14.6); WBC 6.09 10^3/uL (4.4-10.8)
[2021-02-26 06:51] LABS: ALT 37 U/L (14-59); AST 35 U/L (15-37); Alkaline Phosphatase 111 U/L (46-116); Anion Gap 9.8 mmol/L (3-11); BUN 18 mg/dL (7-18); Bilirubin, Total 0.4 mg/dL (0.2-1.0); C-Reactive Protein 11.81 mg/dL (0.0-0.3); CO2 28.2 mmol/L (21.0-32.0); CREATININE 0.6 mg/dL (0.55-1.02); Calcium 9.2 mg/dL (8.5-10.1); Chloride 100 mmol/L (98-107); Glucose 188 mg/dL (74-106); Potassium 3.7 mmol/L (3.5-5.1); Sodium 138 mmol/L (136-145); Total Protein 7.8 g/dL (6.4-8.2)
[2021-02-26 06:56] LABS: Absolute Lymphocyte Count 1.95 10^3/uL (1.2-3.4); Absolute Monocyte Count 0.37 10^3/uL (0.1-0.8); Absolute Neutrophil Count 3.78 10^3/uL (1.2-6.7); Bands % 1; Diff Comment Manual Differential; RBC Morphology Normal
[2021-02-26 07:08] LABS: D-Dimer 670 ng/mlFEU (<500)
[2021-02-26] MEDS: Dexamethasone 4 MG/ML VIAL 6 MG IVP (07:56)
[2021-02-26] MEDS: Amoxicillin 875/Clav. 125 TAB PO ×2 (07:56→19:20)
[2021-02-26] MEDS: Benzonatate 200 MG CAP PO ×3 (07:56→19:20)
[2021-02-26] MEDS: Docusate Sodium 100 MG CAP PO (07:57)
[2021-02-26] MEDS: Fluticasone NASAL SPRAY 16 GM BTL NS (07:57)
[2021-02-26] MEDS: Enoxaparin 40 MG/0.4 ML SYR SC (07:57)
[2021-02-26] MEDS: Ipratropium/Albuterol 4 GM 120 PUFF INH IH ×4 (07:59→19:21)
[2021-02-26] MEDS: Potassium Chloride 20 MEQ TABCR PO ×3 (08:00→19:20)
[2021-02-26] MEDS: Pantoprazole 40 MG TABCR PO (08:00)
[2021-02-26] MEDS: Loratidine 10 MG TAB PO (08:00)
[2021-02-26] MEDS: Insulin Aspart 300 UNITS/3 ML PEN SC ×4 (09:10→22:28)
[2021-02-26] MEDS: Insulin NPH-Human 300 UNITS/3 ML PEN 35 UNIT SC (09:11)
--- NOTE | 2021-02-26 11:04 | NUR.NOTE ---
Vital signs stable. Patient stronger today and work of breathing is improved. Patient continues on CPAP. Patient in good spirits and optimistic. Will continue to monitor respiratory status.Nursing Note:
--- NOTE | 2021-02-26 12:52 | NUR.NOTE ---
Vital signs stable. Patient oxygenating well, eating well and getting plenty of restful sleep while on CPAP.Nursing Note:
--- NOTE | 2021-02-26 14:15 | NUR.NOTE ---
RN sends Dr. Curran a [employer] message indicating patient's dexacom is reading high. RN requests stat NPH order or Novolog order or both.Nursing Note:
[2021-02-26] MEDS: Insulin Aspart 300 UNITS/3 ML PEN 10 UNITS SC (14:43)
--- NOTE | 2021-02-26 15:10 | W.PM.PROGNOT ---
Date of Service Date of service: 02/26/21 Time of Service: 15:11 Assessment and Plan Assessment and plan (1) Pneumonia due to COVID-19 virus: Status: Acute Assessment and plan: Continue Remdesivir and Decadron with the addition of baricitinib. Now tolerating CPAP mask. Continue ICU monitoring D-dimer essentially unchaged. CRP slightly more elevated compared to yesterday. Cont to monitor inflammatory markers. (2) Diabetes: Status: Chronic Assessment and plan: Glucose not controlled. Stop NPH insulin. Schedule AC insulin at 15 units Novolog. Sliding scale insulin correction doseing; resistant scale. Lantus QHS; increased dosage. (3) Hyperlipidemia: Status: Acute Assessment and plan: Atorvastatin 40mg po HS was initiated this admission. (4) Heart block atrioventricular: Status: Acute Assessment and plan: Dr. Kessler is concerned that the CT findings may in fact reflect septic pulmonary emboli. Blood cultures neg x 48 hours. Echocardiogram showed EF of 65-70%. Normal wall motion. No structural abnormalities. No pericardial effusion. (5) DVT prophylaxis: Status: Acute Assessment and plan: Cont subcutaneous Lovenox 40 mg daily Subjective Subjective Patient reports: no new complaints, feels better and afebrile; denies nausea and vomiting Exam Narrative Exam Narrative: Lying in bed with CPAP in place Const General: cooperative, no acute distress and ill appearing acutely Nutritional Appearance: obese Orientation: alert, awake and oriented x3 HENMT Head: normal to inspection Ears: hearing grossly normal bilaterally Face and sinus: normal facial exam Eyes General: appearance normal, both eyes and all related structures Alignment and Position: alignment normal Periorbital: periorbital findings normal Eyelids: eyelids normal Conjunctivae: conjunctivae normal Sclera: sclerae normal Cornea: corneas normal EOM: EOM intact bilaterally Neck Neck: normal visual inspection, full ROM, no meningeal signs, trachea midline and no JVD Chest Chest: normal inspection of the chest Resp Effort & Inspection: able to speak in complete sentences and cough Quality of cough: actively coughing Auscultation: crackles bilaterally throughout Cardio Jugular venous pressure: no JVD Palpation: normal PMI Rate: tachycardic Rhythm: regular rhythm Heart Sounds: S1 normal, S2 normal, no gallops, no murmurs and no rubs GI Inspection: obesity Palpation: soft and no hepatosplenomegaly Auscultation: normal bowel sounds Skin General skin exam: no rashes or lesions noted Rashes: other (tatoo over left lower leg) Hair: normal Extrem General: normal to inspection, no pedal edema and no calf tenderness Psych Appearance: grossly normal Mental Status: mental status grossly normal Speech and Movement: speech and movement normal Mood: congruent mood Affect: normal affect Attitude: cooperative Thought Process: normal Thought Content: normal Insight: insight good Judgment: judgment good Objective Last Vital Signs Temp 35.0 C L 02/26/21 14:50 Pulse 105 H 02/26/21 14:50 Resp 18 02/26/21 14:50 BP 111/67 02/26/21 14:50 Pulse Ox 95 02/26/21 14:50 Laboratory Results - last 24 hr 02/26/21 02/26/21 02/26/21 06:30 06:30 06:30 WBC 6.09 RBC 5.03 Hgb 14.7 Hct 43.6 MCV 86.7 MCH 29.2 MCHC 33.7 RDW 13.4 Plt Count 228 MPV 11.3 H Immature Gran % 0.0 Neutrophils % 61.0 Band Neutrophils % 1 Lymphocytes % 32.0 Monocytes % 6.0 Eosinophils % 0.0 Basophils % 0.0 Nucleated RBC % 0 Absolute Neutrophils 3.78 Absolute Lymphocytes 1.95 Absolute Monocytes 0.37 Absolute Eosinophils 0.00 Absolute Basophils 0.00 RBC Morphology Normal D-Dimer 670 H Sodium 138 Potassium 3.7 Chloride 100 Carbon Dioxide 28.2 Anion Gap 9.8 BUN 18 Creatinine 0.6 Estimated GFR/1.73 m2 >= 60.00 Glucose 188 H Calcium 9.2 Total Bilirubin 0.4 AST 35 ALT 37 Alkaline Phosphatase 111 C-Reactive Protein 11.81 H Total Protein 7.8 Albumin 3.0 L
[2021-02-26] MEDS: Insulin Aspart 300 UNITS/3 ML PEN 15 UNITS SC (17:34)
[2021-02-26] MEDS: Atorvastatin 40 MG TAB PO (19:20)
[2021-02-26] MEDS: Escitalopram 10 MG TAB PO (22:03)
[2021-02-26] MEDS: Zolpidem 6.25 MG TABCR PO (22:03)
[2021-02-26] MEDS: Normal Saline Flush 10 ML SYR IVP ×2 (22:03→22:04)
[2021-02-26] MEDS: Insulin Glargine 300 UNITS/3 ML PEN 40 UNITS SC (22:29)
[2021-02-27] VITALS (34 sets, daily range): BP systolic 83–140; BP diastolic 48–88; PULSE 78–110; RESP 9–28; TEMP 35.9–36.2; O2SAT 36–98
[2021-02-27 07:03] LABS: HCT 45.7 % (36.0-46.0); HGB 14.9 g/dL (11.2-15.7); MCH 28.7 pg (27.0-33.0); MCHC 32.6 % (32.0-36.0); MCV 87.9 fL (80-95); MPV 11.1 fL (8.0-11.0); Nucleated RBC 0 %; RDW-SD 41.9 fL; WBC 7.99 10^3/uL (4.4-10.8)
[2021-02-27 07:27] LABS: ALT 47 U/L (14-59); AST 35 U/L (15-37); Albumin 2.9 g/dL (3.4-5.0); Alkaline Phosphatase 111 U/L (46-116); Anion Gap 9.9 mmol/L (3-11); BUN 19 mg/dL (7-18); Bilirubin, Total 0.4 mg/dL (0.2-1.0); C-Reactive Protein 5.09 mg/dL (0.0-0.3); CO2 29.1 mmol/L (21.0-32.0); CREATININE 0.6 mg/dL (0.55-1.02); Calcium 9.5 mg/dL (8.5-10.1); Chloride 98 mmol/L (98-107); Glucose 180 mg/dL (74-106); Potassium 3.6 mmol/L (3.5-5.1); Sodium 137 mmol/L (136-145); Total Protein 7.9 g/dL (6.4-8.2)
[2021-02-27 07:35] LABS: Metamyelocytes % 2
[2021-02-27 07:36] LABS: Absolute Basophil Count 0.08 10^3/uL (0.0-0.2); Absolute Lymphocyte Count 2.16 10^3/uL (1.2-3.4); Absolute Monocyte Count 0.64 10^3/uL (0.1-0.8); Absolute Neutrophil Count 4.95 10^3/uL (1.2-6.7); Bands % 3; Platelet Count 331 10^3/uL (130-400)
[2021-02-27 07:37] LABS: D-Dimer 658 ng/mlFEU (<500); Diff Comment Manual Differential; RBC Morphology Normal
[2021-02-27] MEDS: Potassium Chloride 20 MEQ TABCR PO ×3 (08:06→19:55)
[2021-02-27] MEDS: Benzonatate 200 MG CAP PO ×3 (08:07→19:56)
[2021-02-27] MEDS: Amoxicillin 875/Clav. 125 TAB PO ×2 (08:07→19:56)
[2021-02-27] MEDS: Pantoprazole 40 MG TABCR PO (08:07)
[2021-02-27] MEDS: Loratidine 10 MG TAB PO (08:08)
[2021-02-27] MEDS: Enoxaparin 40 MG/0.4 ML SYR SC (08:08)
[2021-02-27] MEDS: Dexamethasone 4 MG/ML VIAL 6 MG IVP (08:08)
[2021-02-27] MEDS: Insulin Aspart 300 UNITS/3 ML PEN SC ×4 (08:09→22:40)
[2021-02-27] MEDS: Insulin Aspart 300 UNITS/3 ML PEN 15 UNITS SC ×3 (08:10→16:32)
[2021-02-27] MEDS: Fluticasone NASAL SPRAY 16 GM BTL NS (08:10)
--- NOTE | 2021-02-27 09:10 | W.PULMCC ---
General Date of Service Date of service: 02/27/21 Time of Service: 07:45 Reason for Admission to ICU: COVID-19 Pneumonia Assessment and Plan Assessment and plan (1) Pneumonia due to COVID-19 virus: Status: Acute (2) Thrombocytopenia: Status: Chronic (3) Pansinusitis: Status: Acute Qualifiers: Chronicity: acute Recurrence: not specified as recurrent Qualified Code(s): J01.40 - Acute pansinusitis, unspecified (4) DKA (diabetic ketoacidosis): Status: Acute Qualifiers: Diabetes mellitus type: type 2 Diabetes mellitus complication detail: without coma Qualified Code(s): E11.10 - Type 2 diabetes mellitus with ketoacidosis without coma (5) Respiratory failure with hypoxia: Status: Acute Assessment and plan: This is a 50-year-old female with diabetes on Jardiance who is admitted to the ICU for COVID-19 pneumonia as well as glycemic DKA. Her DKA is resolved and her glucose is much better managed on her current regimen of Lantus as compared to when she was on an NPH regimen. She is also improving significantly from an oxygenation standpoint. Her inflammatory markers are still slightly elevated however clinically she is making good strides. I counseled the patient about receiving the COVID vaccine 3 months after she is discharged and she is very enthusiastic about doing so as she does not want to end up here again. Qualifiers: Chronicity: acute Qualified Code(s): J96.01 - Acute respiratory failure with hypoxia Recommendations Pulmonary: Hypoxic Respiratory Failure - supplemental O2 to a sat >90% - recommend CPAP at night, until she no longer is needing O2 - proning when able - recommend incentive spirometry and VibraPEP - recommend Duonebs q4hr as needed Cardiac: Sinus Pause Clinically seems as though this was a vasovagal episode, however the pause was quite impressive. Her EKG and echocardiogram were both normal which is extremely reassuring. Renal: Positive volume status She is 2000cc positive during the admission, if anything she should be made on the negative side dry lungs are happy lungs - recommend diuresis to a negative fluid balance - can do this with daily Indapamide 5mg or Lasix as needed - strict I/O's I&O: Intake & Output 02/24/21 02/25/21 02/26/21 02/27/21 23:59 23:59 23:59 23:59 Intake Total 2154.991 / 2154.991 2240 / 2240 1280 / 1280 500 / 500 Output Total 1700 / 1700 2375 / 2375 1225 / 1225 400 / 400 Balance 454.991 / 454.991 -135 / -135 55 / 55 100 / 100 Weight 100.5 kg Daily Fluid Goal:: Negative 500cc to 1L GI Nutrition: Diabetic Diet Date of Last Bowel Movement: 02/25/21 Infectious Disease: COVID-19 PNA - can get inflammatory markers every other day given clinical improvement - recommend continue Decadron, Barcitinib and remdesivir Pansinusitis - agree with a course of Augmentin (10 days total) - agree with Flonase Hematologic: Thrombocytopenia, resolved She was placed on empiric therapeutic anticoagulation for Covid, however there is no good data to support empiric full anticoagulation just in the setting of Covid. - recommend Lovenox for DVT ppx - if concern for DVT recommend 4 extremity Duplex Neurologic: Vasovagal Syncope - no acute concerns Endocrine: Euglycemic DKA, resolved - agree with current insulin regimen - closely monitor in the setting of Decadron use Lines: PIV Prophylaxis: Lovenox for DVT ppx Protonix - Steroid use Code Status: Resuscitation Status Full Code Subjective Critical and life-threatening events over the past 24 hours: Jesika is doing quite well this morning and looks far better than when I saw her on Saturday. She has been extremely compliant with CPAP particularly at night. She is feeling as though her shortness of breath is improving. She still has a cough. She has been using her incentive spirometer and VibraPEP. She has a good appetite and has been going to the bathroom appropriately. Her echocardiogram returned normal with no signs of vegetation and her blood cultures have also been negative. Exam Narrative Exam Narrative: POCUS 02/24/21: All views visualized, subxyphoid view limited due to gas. Normal LV function, normal EF. No pericardial effusion. RV appears normal in size and function. RA wall had a hyperechoic appearance, but not within the atrial cavity. I only saw this on a 4 chamber view and so am unsure what to make of this. The IVC was plethoric. Const General: in distress mild Nutritional Appearance: well nourished [facility] Head: normocephalic Ears: external ears normal and no periauricular adenopathy General nose exam: nasal mucous membranes and turbinates normal Face and sinus: sinus tenderness Mouth: oropharynx normal and moist mucous membranes Teeth and gingiva: dentition normal Eyes General: appearance normal, both eyes and all related structures Pupils: PERRL Neck Neck: normal visual inspection and no lymphadenopathy Chest Chest: normal inspection of the chest Resp Effort & Inspection: normal respiratory effort Auscultation: diminished lung sounds, rales (bilateral bases), no rhonchi and no wheezes Cardio Rate: regular rate Rhythm: regular rhythm Heart Sounds: S1 normal, S2 normal and no murmurs Pulses: radial pulses present bilaterally GI Inspection: normal to inspection Palpation: soft Skin General skin exam: no rashes or lesions noted Neuro General: patient alert, patient awake and patient oriented x3 Extrem General: no clubbing, cyanosis or edema Psych Mental Status: mental status grossly normal Affect: normal affect Attitude: cooperative Most Recent VS/Results Last Vital Signs Temp 36.2 C L 02/27/21 04:01 Pulse 80 02/27/21 06:00 Resp 16 02/27/21 06:00 BP 83/48 L 02/27/21 06:00 Pulse Ox 96 02/27/21 06:00 Laboratory Results - last 24 hr 02/27/21 02/27/21 02/27/21 06:15 06:15 06:15 WBC 7.99 D RBC 5.20 Hgb 14.9 Hct 45.7 MCV 87.9 MCH 28.7 MCHC 32.6 RDW 13.0 Plt Count 331 D MPV 11.1 H Immature Gran % 0.0 Neutrophils % 59.0 Band Neutrophils % 3 Lymphocytes % 27.0 Monocytes % 8.0 Eosinophils % 0.0 Basophils % 1.0 Metamyelocytes % 2 Nucleated RBC % 0 Absolute Neutrophils 4.95 Absolute Lymphocytes 2.16 Absolute Monocytes 0.64 Absolute Eosinophils 0.00 Absolute Basophils 0.08 RBC Morphology Normal D-Dimer 658 H Sodium 137 Potassium 3.6 Chloride 98 Carbon Dioxide 29.1 Anion Gap 9.9 BUN 19 H Creatinine 0.6 Estimated GFR/1.73 m2 >= 60.00 Glucose 180 H Calcium 9.5 Total Bilirubin 0.4 AST 35 ALT 47 Alkaline Phosphatase 111 C-Reactive Protein 5.09 H Total Protein 7.9 Albumin 2.9 L Review of Systems All systems reviewed & are unremarkable except as noted in HPI and below Constitutional Constitutional: Reports fatigue and Reports headache(s) ENT Ears, Nose, Mouth, and Throat: Reports dizziness, Reports facial pain and Reports headache(s) Cardiovascular Cardiovascular: Reports syncope, Reports dyspnea, Reports dyspnea on exertion and Reports orthopnea Respiratory Respiratory: Reports cough, Reports dyspnea and Reports dyspnea on exertion Neurologic Neurologic: Reports dizziness, Reports syncope and Reports headache(s) Endocrine Endocrine: Reports fatigue Time spent with patient Time spent in Critical Care: 35 Time spent in Critical care included: Coordination of care, Chart review, Documenting critically ill care, Time at immediate bedside and Discussing critically ill care with other medical staff
[2021-02-27] MEDS: Ipratropium/Albuterol 4 GM 120 PUFF INH IH ×4 (09:30→19:57)
[2021-02-27] MEDS: Furosemide 20 MG/2 ML VIAL IVP (11:01)
--- NOTE | 2021-02-27 11:19 | RESPIRATORY ---
1030 Pt sitting on edge of bed on arrival. Currently on 15L Oxymask with SpO2 of 94%. Pt states she is taking a break from CPAP. RT reviewed importance of PPV, IS, and VPEP with pt. Pt expressed understanding and stated she would try to increase time on CPAP. Pt stated she has difficulty with IS due to coughing, but will try to utilize more often.
--- NOTE | 2021-02-27 16:50 | W.PM.PROGNOT ---
Date of Service Date of service: 02/27/21 Time of Service: 16:50 Assessment and Plan Assessment and plan (1) Pneumonia due to COVID-19 virus: Status: Acute Assessment and plan: Continue Decadron with the addition of baricitinib. Completed remdesivir course. Now tolerating CPAP mask. Now on 5L NC when off CPAP. D-dimer essentially unchaged. CRP significantly improved.. (2) Diabetes: Status: Chronic Assessment and plan: Glucose not controlled. Cont AC insulin at 15 units Novolog. Sliding scale insulin correction doseing; resistant scale. Lantus QHS; increased dosage. (3) Hyperlipidemia: Status: Acute Assessment and plan: Atorvastatin 40mg po HS was initiated this admission. (4) Heart block atrioventricular: Status: Acute Assessment and plan: Dr. Kessler is concerned that the CT findings may in fact reflect septic pulmonary emboli. Blood cultures neg x 48 hours. Echocardiogram showed EF of 65-70%. Normal wall motion. No structural abnormalities. No pericardial effusion. (5) DVT prophylaxis: Status: Acute Assessment and plan: Cont subcutaneous Lovenox 40 mg daily Subjective Subjective Patient reports: no new complaints, bowel movement and afebrile; denies nausea and vomiting Interval history since last seen: cough with adrianna colored sputum. Exam Const General: cooperative, no acute distress and ill appearing acutely Nutritional Appearance: obese Orientation: alert, awake and oriented x3 HENMT Head: normal to inspection Ears: hearing grossly normal bilaterally Face and sinus: normal facial exam Eyes General: appearance normal, both eyes and all related structures Alignment and Position: alignment normal Periorbital: periorbital findings normal Eyelids: eyelids normal Conjunctivae: conjunctivae normal Sclera: sclerae normal Cornea: corneas normal EOM: EOM intact bilaterally Neck Neck: normal visual inspection, full ROM, no meningeal signs, trachea midline and no JVD Chest Chest: normal inspection of the chest Resp Effort & Inspection: able to speak in complete sentences and cough Quality of cough: actively coughing Auscultation: crackles bilaterally throughout Cardio Jugular venous pressure: no JVD Rate: tachycardic Rhythm: regular rhythm Heart Sounds: S1 normal, S2 normal and no murmurs GI Inspection: obesity Palpation: soft and no hepatosplenomegaly Auscultation: normal bowel sounds Skin General skin exam: no rashes or lesions noted Rashes: other (tatoo over left lower leg) Hair: normal Extrem General: normal to inspection, no pedal edema and no calf tenderness Psych Appearance: grossly normal Mental Status: mental status grossly normal Speech and Movement: speech and movement normal Mood: congruent mood Affect: normal affect Attitude: cooperative Thought Process: normal Thought Content: normal Insight: insight good Judgment: judgment good Objective Last Vital Signs Temp 35.9 C L 02/27/21 16:00 Pulse 110 H 02/27/21 16:00 Resp 28 H 02/27/21 16:00 BP 100/66 02/27/21 16:00 Pulse Ox 93 02/27/21 16:00 Laboratory Results - last 24 hr 02/27/21 02/27/21 02/27/21 06:15 06:15 06:15 WBC 7.99 D RBC 5.20 Hgb 14.9 Hct 45.7 MCV 87.9 MCH 28.7 MCHC 32.6 RDW 13.0 Plt Count 331 D MPV 11.1 H Immature Gran % 0.0 Neutrophils % 59.0 Band Neutrophils % 3 Lymphocytes % 27.0 Monocytes % 8.0 Eosinophils % 0.0 Basophils % 1.0 Metamyelocytes % 2 Nucleated RBC % 0 Absolute Neutrophils 4.95 Absolute Lymphocytes 2.16 Absolute Monocytes 0.64 Absolute Eosinophils 0.00 Absolute Basophils 0.08 RBC Morphology Normal D-Dimer 658 H Sodium 137 Potassium 3.6 Chloride 98 Carbon Dioxide 29.1 Anion Gap 9.9 BUN 19 H Creatinine 0.6 Estimated GFR/1.73 m2 >= 60.00 Glucose 180 H Calcium 9.5 Total Bilirubin 0.4 AST 35 ALT 47 Alkaline Phosphatase 111 C-Reactive Protein 5.09 H Total Protein 7.9 Albumin 2.9 L
--- NOTE | 2021-02-27 19:15 | PDOC.CMPRO ---
- If Service Date Differs Date of service: 02/27/21 Time of Service: 19:15 Care Management Progress Note S/O: Jesika continues to be monitored in the ICU under Covid precautions, therefore CM met with her today by phone. She reported that she is feeling good overall. She stated that she is still tired and weak, but feels that she is improving. She is currently on 5L nasal cannula. She declined activity items to keep her busy while she is in a precaution room. CM will continue to follow. A: Jesika is a 50 year old female admitted to [facility] on 02/22/21 with Covid pneumonia. P: Anticipate Jesika will return home when medically cleared. She will be transported via private vehicle by family. She will follow up with her PCP and discharge plan of care. CM will continue to follow.
[2021-02-27] MEDS: Atorvastatin 40 MG TAB PO (19:55)
[2021-02-27] MEDS: Normal Saline Flush 10 ML SYR IVP (19:56)
[2021-02-27] MEDS: Zolpidem 6.25 MG TABCR PO (22:22)
[2021-02-27] MEDS: Escitalopram 10 MG TAB PO (22:22)
[2021-02-27] MEDS: Insulin Glargine 300 UNITS/3 ML PEN 45 UNITS SC (22:45)
[2021-02-28] VITALS (33 sets, daily range): BP systolic 103–120; BP diastolic 54–73; PULSE 78–106; RESP 14–20; TEMP 36–36.1; O2SAT 92–99
[2021-02-28 07:00] LABS: HCT 47.7 % (36.0-46.0); HGB 15.8 g/dL (11.2-15.7); MCH 29.1 pg (27.0-33.0); MCHC 33.1 % (32.0-36.0); MCV 87.8 fL (80-95); MPV 11.2 fL (8.0-11.0); Nucleated RBC 0 %; RBC 5.43 10^6/uL (3.93-5.22); RDW 12.8 % (11.7-14.6); RDW-SD 41.1 fL; WBC 10.81 10^3/uL (4.4-10.8)
[2021-02-28 07:22] LABS: ALT 64 U/L (14-59); AST 48 U/L (15-37); Albumin 3.3 g/dL (3.4-5.0); Alkaline Phosphatase 122 U/L (46-116); Anion Gap 9.1 mmol/L (3-11); BUN 21 mg/dL (7-18); Bilirubin, Total 0.4 mg/dL (0.2-1.0); C-Reactive Protein 2.27 mg/dL (0.0-0.3); CO2 32.9 mmol/L (21.0-32.0); CREATININE 0.6 mg/dL (0.55-1.02); Calcium 9.9 mg/dL (8.5-10.1); Chloride 97 mmol/L (98-107); Glucose 174 mg/dL (74-106); Potassium 4.1 mmol/L (3.5-5.1); Sodium 139 mmol/L (136-145); Total Protein 7.7 g/dL (6.4-8.2)
[2021-02-28 07:40] LABS: Absolute Eosinophil Count 0.11 10^3/uL (0.0-0.7); Absolute Lymphocyte Count 3.03 10^3/uL (1.2-3.4); Absolute Monocyte Count 0.65 10^3/uL (0.1-0.8); Absolute Neutrophil Count 6.92 10^3/uL (1.2-6.7); Bands % 2; Diff Comment Manual Differential; Metamyelocytes % 1; RBC Morphology Normal
[2021-02-28 07:41] LABS: Platelet Count 371 10^3/uL (130-400)
[2021-02-28] MEDS: Dexamethasone 4 MG/ML VIAL 6 MG IVP (07:42)
[2021-02-28] MEDS: Pantoprazole 40 MG TABCR PO (07:42)
[2021-02-28] MEDS: Potassium Chloride 20 MEQ TABCR PO ×2 (07:42→12:37)
[2021-02-28] MEDS: Enoxaparin 40 MG/0.4 ML SYR SC (07:42)
[2021-02-28] MEDS: Benzonatate 200 MG CAP PO ×3 (07:43→21:11)
[2021-02-28 07:44] LABS: D-Dimer 574 ng/mlFEU (<500)
[2021-02-28] MEDS: Insulin Aspart 300 UNITS/3 ML PEN 15 UNITS SC ×3 (07:44→17:11)
[2021-02-28] MEDS: Insulin Aspart 300 UNITS/3 ML PEN SC ×4 (07:44→21:13)
[2021-02-28] MEDS: Fluticasone NASAL SPRAY 16 GM BTL NS (07:46)
[2021-02-28] MEDS: Amoxicillin 875/Clav. 125 TAB PO ×2 (07:46→21:00)
[2021-02-28] MEDS: Loratidine 10 MG TAB PO (07:47)
[2021-02-28] MEDS: Ipratropium/Albuterol 4 GM 120 PUFF INH IH ×3 (07:47→16:30)
--- NOTE | 2021-02-28 09:00 | W.PULMCC ---
General Date of Service Date of service: 02/28/21 Time of Service: 07:40 Reason for Admission to ICU: Covid pneumonia, DKA Assessment and Plan Assessment and plan (1) Pneumonia due to COVID-19 virus: Status: Acute (2) Thrombocytopenia: Status: Chronic (3) Pansinusitis: Status: Acute Qualifiers: Chronicity: acute Recurrence: not specified as recurrent Qualified Code(s): J01.40 - Acute pansinusitis, unspecified (4) DKA (diabetic ketoacidosis): Status: Acute Qualifiers: Diabetes mellitus type: type 2 Diabetes mellitus complication detail: without coma Qualified Code(s): E11.10 - Type 2 diabetes mellitus with ketoacidosis without coma (5) Respiratory failure with hypoxia: Status: Acute Assessment and plan: This is a 50-year-old female with diabetes on Jardiance who is admitted to the ICU for COVID-19 pneumonia as well as glycemic DKA. Her DKA is resolved and her glucose is much better managed on her current regimen of Lantus as compared to when she was on an NPH regimen. She is also improving significantly from an oxygenation standpoint. Her inflammatory markers are still slightly elevated however clinically she is making good strides. I counseled the patient about receiving the COVID vaccine 3 months after she is discharged and she is very enthusiastic about doing so as she does not want to end up here again. She is maintaining appropriate saturations while on nasal cannula and can be transitioned out of ICU status today. Qualifiers: Chronicity: acute Qualified Code(s): J96.01 - Acute respiratory failure with hypoxia Recommendations Pulmonary: Hypoxic Respiratory Failure - supplemental O2 to a sat >90% - recommend CPAP at night, until she no longer is needing O2 - proning when able - recommend incentive spirometry and VibraPEP - recommend Duonebs q4hr as needed Cardiac: Sinus Pause Clinically seems as though this was a vasovagal episode, however the pause was quite impressive. Her EKG and echocardiogram were both normal which is extremely reassuring. Renal: Positive volume status, improving She is -700 cc in the last 24 hours which is a great goal and seems to have further improved her breathing. - recommend diuresis to a negative fluid balance - negative 500cc to negative 1 L - strict I/O's I&O: Intake & Output 02/25/21 02/26/21 02/27/2121 23:59 23:59 23:59 23:59 Intake Total 2240 / 2240 1280 / 1280 510 / 510 Output Total 2375 / 2375 1225 / 1225 1200 / 1200 Balance -135 / -135 55 / 55 -690 / -690 Weight 100.5 kg Daily Fluid Goal:: -500cc to -1L GI Nutrition: Diabetic diet Date of Last Bowel Movement: 02/25/21 Infectious Disease: COVID-19 PNA - can get inflammatory markers every other day given clinical improvement - agree with Decadron, Barcitinib, and remdesivir course (remdesivir completed) - remain on precautions while symptomatic Pansinusitis - agree with a course of Augmentin (10 days total) - agree with Flonase Hematologic: Thrombocytopenia, resolved - recommend Lovenox for DVT ppx - if concern for DVT recommend 4 extremity Duplex Neurologic: Vasovagal Syncope - no acute concerns Endocrine: Euglycemic DKA, resolved - agree with current insulin regimen - closely monitor in the setting of Decadron use Lines: PIV Prophylaxis: Lovenox Protonix - steroid use Code Status: Resuscitation Status Full Code Subjective Critical and life-threatening events over the past 24 hours: Jesika is doing quite well today. She wear the CPAP all night. She is currently on 5 L nasal cannula. She is looking better every day. She is having a good appetite. She still does have a cough and some shortness of breath but is improving. Exam Narrative Exam Narrative: POCUS 02/24/21: All views visualized, subxyphoid view limited due to gas. Normal LV function, normal EF. No pericardial effusion. RV appears normal in size and function. RA wall had a hyperechoic appearance, but not within the atrial cavity. I only saw this on a 4 chamber view and so am unsure what to make of this. The IVC was plethoric. Const General: in distress mild Nutritional Appearance: well nourished [facility] Head: normocephalic Ears: external ears normal and no periauricular adenopathy General nose exam: nasal mucous membranes and turbinates normal Face and sinus: sinus tenderness Mouth: oropharynx normal and moist mucous membranes Teeth and gingiva: dentition normal Eyes General: appearance normal, both eyes and all related structures Pupils: PERRL Neck Neck: normal visual inspection and no lymphadenopathy Chest Chest: normal inspection of the chest Resp Effort & Inspection: normal respiratory effort Auscultation: diminished lung sounds, rales (bilateral bases), no rhonchi and no wheezes Cardio Rate: regular rate Rhythm: regular rhythm Heart Sounds: S1 normal, S2 normal and no murmurs Pulses: radial pulses present bilaterally GI Inspection: normal to inspection Palpation: soft Skin General skin exam: no rashes or lesions noted Neuro General: patient alert, patient awake and patient oriented x3 Extrem General: no clubbing, cyanosis or edema Psych Mental Status: mental status grossly normal Affect: normal affect Attitude: cooperative Most Recent VS/Results Last Vital Signs Temp 36.1 C L 02/28/21 04:00 Pulse 78 02/28/21 06:00 Resp 15 02/28/21 06:00 BP 108/72 02/28/21 06:00 Pulse Ox 97 02/28/21 06:00 Laboratory Results - last 24 hr 02/28/21 02/28/21 02/28/21 06:15 06:15 06:15 WBC 10.81 H D RBC 5.43 H Hgb 15.8 H Hct 47.7 H MCV 87.8 MCH 29.1 MCHC 33.1 RDW 12.8 Plt Count 371 MPV 11.2 H Immature Gran % 0.0 Neutrophils % 62.0 Band Neutrophils % 2 Lymphocytes % 28.0 Monocytes % 6.0 Eosinophils % 1.0 Basophils % 0.0 Metamyelocytes % 1 Nucleated RBC % 0 Absolute Neutrophils 6.92 H Absolute Lymphocytes 3.03 Absolute Monocytes 0.65 Absolute Eosinophils 0.11 Absolute Basophils 0.00 RBC Morphology Normal D-Dimer 574 H Sodium 139 Potassium 4.1 Chloride 97 L Carbon Dioxide 32.9 H Anion Gap 9.1 BUN 21 H Creatinine 0.6 Estimated GFR/1.73 m2 >= 60.00 Glucose 174 H Calcium 9.9 Total Bilirubin 0.4 AST 48 H ALT 64 H Alkaline Phosphatase 122 H C-Reactive Protein 2.27 H Total Protein 7.7 Albumin 3.3 L Review of Systems All systems reviewed & are unremarkable except as noted in HPI and below Constitutional Constitutional: Reports fatigue Cardiovascular Cardiovascular: Reports dyspnea, Reports dyspnea on exertion and Reports orthopnea Respiratory Respiratory: Reports cough, Reports dyspnea and Reports dyspnea on exertion Endocrine Endocrine: Reports fatigue Time spent with patient Time spent in Critical Care: 35 Time spent in Critical care included: Coordination of care, Chart review, Documenting critically ill care, Time at immediate bedside and Discussing critically ill care with other medical staff
--- NOTE | 2021-02-28 11:23 | PDOC.CMPRO ---
- If Service Date Differs Date of service: 02/28/21 Time of Service: 11:23 Care Management Progress Note S/O: CM called and talked to Jesika on the phone, as she continues to be monitored at ICU level of care under Covid precautions. She reported that she is feeling a bit better today, but is still on 5L O2, nasal cannula. She reported that per MD, she may be transferred to M/S level of care today, as she is improving. She is hoping that she will be moved into a bigger room. CM will continue to follow. A: Jesika is a 50 year old female admitted to [facility] on 02/22/21 with Covid pneumonia. P: Anticipate Jesika will return home when medically cleared. She will be transported via private vehicle by family. She will follow up with her PCP and discharge plan of care. CM will continue to follow.
--- NOTE | 2021-02-28 12:13 | W.DIABETESNO ---
Date of service: 02/28/21 Time of Service: 12:15 Diabetes Note NOTE: Weight is stable. Blood glucose mostly within goal range. PO intake is good to excellent. Will continue to monitor nutritional status and adjust nutrition care plan accordingly. Time Spent in Nutritional Counseling and Treatment: 0
--- NOTE | 2021-02-28 14:26 | W.PM.PROGNOT ---
Date of Service Date of service: 02/28/21 Time of Service: 14:27 Assessment and Plan Assessment and plan (1) Pneumonia due to COVID-19 virus: Status: Acute Assessment and plan: Continue Decadron (change to po) with the addition of baricitinib. Completed remdesivir course. Now tolerating CPAP mask. Now on 5L NC when off CPAP. D-dimer now declining. CRP continues to improve. (2) Diabetes: Status: Chronic Assessment and plan: Glucose not controlled. Cont AC insulin at 15 units Novolog. Sliding scale insulin correction doseing; resistant scale. Lantus QHS; increased dosage. (3) Hyperlipidemia: Status: Acute Assessment and plan: Atorvastatin 40mg po HS was initiated this admission. (4) Heart block atrioventricular: Status: Acute Assessment and plan: Dr. Kessler is concerned that the CT findings may in fact reflect septic pulmonary emboli. Blood cultures neg x 48 hours. Echocardiogram showed EF of 65-70%. Normal wall motion. No structural abnormalities. No pericardial effusion. (5) DVT prophylaxis: Status: Acute Assessment and plan: Cont subcutaneous Lovenox 40 mg daily Subjective Subjective Patient reports: no new complaints, bowel movement and afebrile; denies nausea and vomiting Interval history since last seen: cough with adrianna colored sputum intermittently. Exam Const General: cooperative, no acute distress and ill appearing acutely Nutritional Appearance: obese Orientation: alert, awake and oriented x3 HENMT Head: normal to inspection Ears: hearing grossly normal bilaterally Face and sinus: normal facial exam Eyes General: appearance normal, both eyes and all related structures Alignment and Position: alignment normal Periorbital: periorbital findings normal Eyelids: eyelids normal Conjunctivae: conjunctivae normal Sclera: sclerae normal Cornea: corneas normal EOM: EOM intact bilaterally Neck Neck: normal visual inspection, full ROM, no meningeal signs, trachea midline and no JVD Chest Chest: normal inspection of the chest Resp Effort & Inspection: able to speak in complete sentences, cough Quality of cough: actively coughing and other (Wet sounding cough.) Auscultation: crackles bilaterally throughout Cardio Jugular venous pressure: no JVD Palpation: normal PMI Rate: tachycardic Rhythm: regular rhythm Heart Sounds: S1 normal, S2 normal and no murmurs GI Inspection: obesity Palpation: soft and no hepatosplenomegaly Auscultation: normal bowel sounds Skin General skin exam: no rashes or lesions noted Rashes: other (tatoo over left lower leg) Hair: normal Extrem General: normal to inspection, no pedal edema and no calf tenderness Psych Appearance: grossly normal Mental Status: mental status grossly normal Speech and Movement: speech and movement normal Mood: congruent mood Affect: normal affect Attitude: cooperative Thought Process: normal Thought Content: normal Insight: insight good Judgment: judgment good Objective Last Vital Signs Temp 36.0 C L 02/28/21 07:45 Pulse 88 02/28/21 10:00 Resp 18 02/28/21 09:00 BP 105/57 L 02/28/21 10:00 Pulse Ox 95 02/28/21 10:01 Laboratory Results - last 24 hr 02/28/21 02/28/21 02/28/21 06:15 06:15 06:15 WBC 10.81 H D RBC 5.43 H Hgb 15.8 H Hct 47.7 H MCV 87.8 MCH 29.1 MCHC 33.1 RDW 12.8 Plt Count 371 MPV 11.2 H Immature Gran % 0.0 Neutrophils % 62.0 Band Neutrophils % 2 Lymphocytes % 28.0 Monocytes % 6.0 Eosinophils % 1.0 Basophils % 0.0 Metamyelocytes % 1 Nucleated RBC % 0 Absolute Neutrophils 6.92 H Absolute Lymphocytes 3.03 Absolute Monocytes 0.65 Absolute Eosinophils 0.11 Absolute Basophils 0.00 RBC Morphology Normal D-Dimer 574 H Sodium 139 Potassium 4.1 Chloride 97 L Carbon Dioxide 32.9 H Anion Gap 9.1 BUN 21 H Creatinine 0.6 Estimated GFR/1.73 m2 >= 60.00 Glucose 174 H Calcium 9.9 Total Bilirubin 0.4 AST 48 H ALT 64 H Alkaline Phosphatase 122 H C-Reactive Protein 2.27 H Total Protein 7.7 Albumin 3.3 L
[2021-02-28] MEDS: Zolpidem 6.25 MG TABCR PO (20:59)
[2021-02-28] MEDS: Escitalopram 10 MG TAB PO (20:59)
[2021-02-28] MEDS: Atorvastatin 40 MG TAB PO (21:00)
[2021-02-28] MEDS: Insulin Glargine 300 UNITS/3 ML PEN 45 UNITS SC (22:17)
[2021-03-01] VITALS (34 sets, daily range): BP systolic 101–117; BP diastolic 64–79; PULSE 78–103; RESP 18–20; TEMP 36–36.5; O2SAT 90–99
[2021-03-01 07:08] LABS: HCT 44.2 % (36.0-46.0); MCH 29.5 pg (27.0-33.0); MCHC 33.9 % (32.0-36.0); Nucleated RBC 0 %; RBC 5.08 10^6/uL (3.93-5.22); RDW 12.4 % (11.7-14.6); RDW-SD 39.8 fL; WBC 11.59 10^3/uL (4.4-10.8)
[2021-03-01 07:26] LABS: ALT 65 U/L (14-59); AST 31 U/L (15-37); Alkaline Phosphatase 105 U/L (46-116); Anion Gap 6.9 mmol/L (3-11); BUN 19 mg/dL (7-18); Bilirubin, Total 0.4 mg/dL (0.2-1.0); C-Reactive Protein 1.06 mg/dL (0.0-0.3); CO2 31.1 mmol/L (21.0-32.0); CREATININE 0.6 mg/dL (0.55-1.02); Calcium 9.1 mg/dL (8.5-10.1); Chloride 99 mmol/L (98-107); Glucose 206 mg/dL (74-106); Potassium 3.8 mmol/L (3.5-5.1); Sodium 137 mmol/L (136-145); Total Protein 6.9 g/dL (6.4-8.2)
[2021-03-01 07:41] LABS: Absolute Basophil Count 0.12 10^3/uL (0.0-0.2); Absolute Lymphocyte Count 2.67 10^3/uL (1.2-3.4); Absolute Monocyte Count 0.58 10^3/uL (0.1-0.8); Absolute Neutrophil Count 8.11 10^3/uL (1.2-6.7); Bands % 3; D-Dimer 403 ng/mlFEU (<500); Platelet Count 409 10^3/uL (130-400)
[2021-03-01 07:42] LABS: Diff Comment Manual Differential; RBC Morphology Normal
[2021-03-01 07:48] LABS: Metamyelocytes % 1
--- NOTE | 2021-03-01 08:13 | W.PULMPROG ---
General Date Of Service Date of service: 03/01/21 Time of Service: 07:00 Reason for Consult: Covid pneumonia Subjective Note Note: Jesika is doing well today. On my assessment she is wearing the CPAP and saturating 99%. She states that she is really beginning to feel better at all of her symptoms are improving with time. Exam Narrative Exam Narrative: POCUS 02/24/21: All views visualized, subxyphoid view limited due to gas. Normal LV function, normal EF. No pericardial effusion. RV appears normal in size and function. RA wall had a hyperechoic appearance, but not within the atrial cavity. I only saw this on a 4 chamber view and so am unsure what to make of this. The IVC was plethoric. Const General: in distress mild Nutritional Appearance: well nourished HENMT Head: normocephalic Ears: external ears normal and no periauricular adenopathy General nose exam: nasal mucous membranes and turbinates normal Face and sinus: sinus tenderness Mouth: oropharynx normal and moist mucous membranes Teeth and gingiva: dentition normal Eyes General: appearance normal, both eyes and all related structures Pupils: PERRL Neck Neck: normal visual inspection and no lymphadenopathy Chest Chest: normal inspection of the chest Resp Effort & Inspection: normal respiratory effort Auscultation: diminished lung sounds, rales (bilateral bases), no rhonchi and no wheezes Cardio Rate: regular rate Rhythm: regular rhythm Heart Sounds: S1 normal, S2 normal and no murmurs Pulses: radial pulses present bilaterally GI Inspection: normal to inspection Palpation: soft Skin General skin exam: no rashes or lesions noted Neuro General: patient alert, patient awake and patient oriented x3 Extrem General: no clubbing, cyanosis or edema Psych Mental Status: mental status grossly normal Affect: normal affect Attitude: cooperative Objective Last Vital Signs Temp 36.0 C L 02/28/21 17:30 Pulse 84 03/01/21 05:13 Resp 20 02/28/21 17:30 BP 110/79 03/01/21 05:13 Pulse Ox 98 03/01/21 05:13 Laboratory Results - last 24 hr 03/01/21 03/01/21 03/01/21 06:25 06:25 06:25 WBC 11.59 H RBC 5.08 Hgb 15.0 Hct 44.2 MCV 87.0 MCH 29.5 MCHC 33.9 RDW 12.4 Plt Count 409 H MPV 11.0 Immature Gran % 0.0 Neutrophils % 67.0 Band Neutrophils % 3 Lymphocytes % 23.0 Monocytes % 5.0 Eosinophils % 0.0 Basophils % 1.0 Metamyelocytes % 1 Nucleated RBC % 0 Absolute Neutrophils 8.11 H Absolute Lymphocytes 2.67 Absolute Monocytes 0.58 Absolute Eosinophils 0.00 Absolute Basophils 0.12 RBC Morphology Normal D-Dimer 403 Sodium 137 Potassium 3.8 Chloride 99 Carbon Dioxide 31.1 Anion Gap 6.9 BUN 19 H Creatinine 0.6 Estimated GFR/1.73 m2 >= 60.00 Glucose 206 H Calcium 9.1 Total Bilirubin 0.4 AST 31 ALT 65 H Alkaline Phosphatase 105 C-Reactive Protein 1.06 H Total Protein 6.9 Albumin 3.0 L Results Medications Medications: Active Medications Generic Name Dose Route Start Last Admin Trade Name Freq PRN Reason Stop Dose Admin Acetaminophen 0 mg 02/22/21 12:51 02/24/21 15:36 Acetaminophen 325 Mg Tab PO 650 mg Q4H PRN PRN Administration Al Hydrox/Mg Hydrox/Simethicone 30 ml 02/22/21 12:51 Mylanta Suspension 30 Ml Cup PO Q2H PRN PRN Albuterol Sulfate 2 puff 02/22/21 20:43 Albuterol Hfa 8 Gm 60 Puff Inh IH Q4H PRN PRN Albuterol/Ipratropium 1 puff 02/22/21 20:45 02/28/21 22:23 Ipratropium/Albuterol 4 Gm 120 Puff Inh IH Not Given QID ANT Amoxicillin/Clavulanate Potassium 1 tab 02/24/21 09:00 02/28/21 21:00 Amoxicillin 875/Clav. 125 Tab PO 1 tab BID ANT Administration Atorvastatin Calcium 40 mg 02/22/21 20:45 02/28/21 21:00 Atorvastatin 40 Mg Tab PO 40 mg QPM ANT Administration Baricitinib 4 mg 02/24/21 08:55 02/28/21 07:43 Baricitinib 1 Mg Tab PO 4 mg DAILY ANT Administration Benzonatate 200 mg 02/23/21 08:30 02/28/21 21:11 Benzonatate 200 Mg Cap PO 200 mg TID ANT Administration Chlorphenir/Hydrocodone Polistirex 5 ml 02/22/21 20:21 02/23/21 19:03 Tussionex Susp PO 5 ml BID PRN PRN Administration Device 1 each 02/22/21 21:00 Inhaler, Assist Device MC DIRECTED [facility] Dexamethasone 6 mg 03/01/21 08:30 Dexamethasone 4 Mg Tab PO DAILY ANT Dextrose 0 gm 02/23/21 14:15 Glucose 40% Oral Solution 15 Gm/37.5 Gm Tube PO DIRECTED PRN Dextrose 0 gm 02/26/21 15:05 Glucose 40% Oral Solution 15 Gm/37.5 Gm Tube PO DIRECTED PRN Dextrose/Water 0 gm 02/23/21 14:15 Dextrose 50%-Water 25 Gm/50 Ml Syr IVP DIRECTED PRN Dextrose/Water 0 gm 02/26/21 15:05 Dextrose 50%-Water 25 Gm/50 Ml Syr IVP DIRECTED PRN Dimethicone/Zinc Oxide 0 gm 02/22/21 12:46 Ángel Protect Cream 142 Gm Tube TP PRN PRN Docusate Sodium 100 mg 02/22/21 12:51 02/26/21 07:57 Docusate Sodium 100 Mg Cap PO 100 mg TID PRN PRN Administration Enoxaparin Sodium 40 mg 02/25/21 08:30 02/28/21 07:42 Enoxaparin 40 Mg/0.4 Ml Syr SC 40 mg DAILY ANT Administration Escitalopram Oxalate 10 mg 02/22/21 22:00 02/28/21 20:59 Escitalopram 10 Mg Tab PO 10 mg HS ANT Administration Fluticasone Propionate 0 gm 02/24/21 09:00 02/28/21 07:46 Fluticasone Nasal [place] 16 Gm Btl NS 1 sprays DAILY ANT Administration Sodium Chloride 500 mls @ 0 mls/hr 02/22/21 14:50 Saline 500ml Bag IVPB PRN PRN As Directed Sodium Chloride 50 mls @ 0 mls/hr 02/22/21 14:50 Saline 50ml Bag IVPB PRN PRN As Directed IV Miscellaneous Supplies 1 each 02/22/21 10:45 Iv Access IV DIRECTED [facility] Insulin Aspart 15 units 02/26/21 17:00 02/28/21 17:11 Insulin Aspart 300 Units/3 Ml Pen SC 15 units 0800,1200,1700 ANT Administration Insulin Aspart 0 units 02/26/21 22:00 02/28/21 21:13 Insulin Aspart 300 Units/3 Ml Pen SC 12 units AC & HS ANT Administration Protocol Insulin Glargine 45 units 02/27/21 22:00 02/28/21 22:17 Insulin Glargine 300 Units/3 Ml Pen SC 45 units HS ANT Administration Loratadine 10 mg 02/24/21 09:05 02/28/21 07:47 Loratidine 10 Mg Tab PO 10 mg DAILY ANT Administration Magnesium Hydroxide 30 ml 02/22/21 12:51 Milk Of Magnesia 30 Ml Cup PO DAILY PRN PRN Nicotine 21 mg 02/22/21 12:51 Nicotine 21 Mg/24 Hr Patch TD DAILY PRN PRN Pantoprazole Sodium 40 mg 02/25/21 07:30 02/28/21 07:42 Pantoprazole 40 Mg Tabcr PO 40 mg DAILY@0730 ANT Administration Polyethylene Glycol 17 gm 02/22/21 12:51 Polyethylene Glycol 3350 17 Gm Packet PO DAILY PRN PRN Constipation Potassium Chloride 20 meq 03/01/21 08:30 Potassium Chloride 20 Meq Tabcr PO DAILY ANT Pseudoephedrine HCl 30 mg 02/24/21 09:05 02/28/21 20:59 Pseudoephedrine 30 Mg Tab PO 30 mg BID ANT Administration Sodium Chloride 0 ml 02/22/21 10:43 02/27/21 19:56 Normal Saline Flush 10 Ml Syr IVP 10 ml PRN PRN Administration Zolpidem Tartrate 6.25 mg 02/24/21 22:00 02/28/21 20:59 Zolpidem 6.25 Mg Tabcr PO 6.25 mg HS ANT Administration Allergies ustekinumab [From [facility]] Adverse Reaction (Intermediate, Verified 02/22/21 10:15) tremor tachycardia Labs Result Diagrams: 03/01/21 06:25 03/01/21 06:25 Labs: 02/24/21 11:05 Blood Blood Culture - Preliminary NO GROWTH 96 HOURS 02/24/21 10:50 Blood Blood Culture - Preliminary NO GROWTH 96 HOURS 02/23/21 22:15 Sputum Sputum Culture - Final Normal Lynne 02/23/21 22:15 Sputum Gram Stain - Final Laboratory Tests Range/Units 02/22/21 02/22/21 02/22/21 10:25 10:25 10:25 WBC (4.4-10.8) 10^3/uL 5.95 RBC (3.93-5.22) 10^6/uL 4.79 Hgb (11.2-15.7) g/dL 14.0 Hct (36.0-46.0) % 43.3 MCV (80-95) fL 90.4 MCH (27.0-33.0) pg 29.2 MCHC (32.0-36.0) % 32.3 RDW (11.7-14.6) % 13.2 Plt Count (130-400) 10^3/uL 38 L MPV (8.0-11.0) fL 12.1 H Immature Gran % 2.0 Neutrophils % 75.8 Band Neutrophils % Lymphocytes % 17.8 Atypical Lymphs % Monocytes % 3.7 Eosinophils % 0.2 Basophils % 0.5 Metamyelocytes % Nucleated RBC % % 0 Absolute Neutrophils (1.2-6.7) 10^3/uL 4.51 Absolute Lymphocytes (1.2-3.4) 10^3/uL 1.06 L Absolute Monocytes (0.1-0.8) 10^3/uL 0.22 Absolute Eosinophils (0.0-0.7) 10^3/uL 0.01 Absolute Basophils (0.0-0.2) 10^3/uL 0.03 RBC Morphology ESR (0-20) mm/hr PT (9.3-11.0) sec INR (0.9-1.1) APTT (21.0-27.5) sec D-Dimer (<500) ng/mlFEU Sample Site ABG pH (7.35-7.45) ABG pCO2 (35-45) mmHg ABG pO2 (80-105) mmHg ABG HCO3 (22-26) mmol/L ABG Total CO2 (23-27) mmol/L ABG O2 Saturation (95-98) % ABG Base Excess (-2-3) mmol/L VBG Lactate (0.6-1.4) mmol/L 1.4 FiO2 (liters per min) L Sodium (136-145) mmol/L 137 Potassium (3.5-5.1) mmol/L 4.0 Chloride (98-107) mmol/L 99 Carbon Dioxide (21.0-32.0) mmol/L 23.0 Anion Gap (3-11) mmol/L 15.0 H BUN (7-18) mg/dL 10 Creatinine (0.55-1.02) mg/dL 0.7 Estimated GFR/1.73 m2 (mL/min/1.73m2) >= 60.00 Glucose (74-106) mg/dL 130 H Calcium (8.5-10.1) mg/dL 8.5 Magnesium (1.8-2.4) mg/dL Ferritin (8-252) ng/mL Total Bilirubin (0.2-1.0) mg/dL 0.5 AST (15-37) U/L 38 H ALT (14-59) U/L 42 Alkaline Phosphatase (46-116) U/L 109 Troponin I (<0.06) ng/mL C-Reactive Protein (0.0-0.3) mg/dL NT-Pro-B Natriuret Pep (<300) pg/mL Total Protein (6.4-8.2) g/dL 8.0 Albumin (3.4-5.0) g/dL 3.3 L Procalcitonin ng/mL TSH (0.36-3.74) uIU/mL 2.51 Urine Color (Yellow) Urine Clarity (Clear) Urine pH (5-8) Ur Specific [place] (1.005-1.025) Urine Protein (Negative) mg/dL Urine Ketones (Negative) mg/dL Urine Blood (Negative) Urine Nitrite (Negative) Urine Bilirubin (Negative) Urine Urobilinogen (Up TO 0.2) EU/dL Ur Leukocyte Esterase (Negative) Urine RBC (0-2) HPF Urine WBC (0-5) HPF Ur Epithelial Cells (Negative) HPF Urine Crystals (Negative) HPF Urine Bacteria (Negative) HPF Urine Casts (Negative) LPF Urine Mucus (Negative) Urine Other (Negative) Ur Culture Indicated? Urine Glucose (Negative) mg/dL Patient ABO/Rh Antibody Screen Range/Units 02/22/21 02/22/21 02/22/21 10:25 13:10 13:10 WBC (4.4-10.8) 10^3/uL RBC (3.93-5.22) 10^6/uL Hgb (11.2-15.7) g/dL Hct (36.0-46.0) % MCV (80-95) fL MCH (27.0-33.0) pg MCHC (32.0-36.0) % RDW (11.7-14.6) % Plt Count (130-400) 10^3/uL MPV (8.0-11.0) fL Immature Gran % Neutrophils % Band Neutrophils % Lymphocytes % Atypical Lymphs % Monocytes % Eosinophils % Basophils % Metamyelocytes % Nucleated RBC % % Absolute Neutrophils (1.2-6.7) 10^3/uL Absolute Lymphocytes (1.2-3.4) 10^3/uL Absolute Monocytes (0.1-0.8) 10^3/uL Absolute Eosinophils (0.0-0.7) 10^3/uL Absolute Basophils (0.0-0.2) 10^3/uL RBC Morphology ESR (0-20) mm/hr PT (9.3-11.0) sec 10.1 INR (0.9-1.1) 1.0 APTT (21.0-27.5) sec 29.7 H D-Dimer (<500) ng/mlFEU 717 H Sample Site ABG pH (7.35-7.45) ABG pCO2 (35-45) mmHg ABG pO2 (80-105) mmHg ABG HCO3 (22-26) mmol/L ABG Total CO2 (23-27) mmol/L ABG O2 Saturation (95-98) % ABG Base Excess (-2-3) mmol/L VBG Lactate (0.6-1.4) mmol/L FiO2 (liters per min) L Sodium (136-145) mmol/L Potassium (3.5-5.1) mmol/L Chloride (98-107) mmol/L Carbon Dioxide (21.0-32.0) mmol/L Anion Gap (3-11) mmol/L BUN (7-18) mg/dL Creatinine (0.55-1.02) mg/dL Estimated GFR/1.73 m2 (mL/min/1.73m2) Glucose (74-106) mg/dL Calcium (8.5-10.1) mg/dL Magnesium (1.8-2.4) mg/dL Ferritin (8-252) ng/mL Total Bilirubin (0.2-1.0) mg/dL AST (15-37) U/L ALT (14-59) U/L Alkaline Phosphatase (46-116) U/L Troponin I (<0.06) ng/mL < 0.05 C-Reactive Protein (0.0-0.3) mg/dL NT-Pro-B Natriuret Pep (<300) pg/mL Total Protein (6.4-8.2) g/dL Albumin (3.4-5.0) g/dL Procalcitonin ng/mL TSH (0.36-3.74) uIU/mL Urine Color (Yellow) Urine Clarity (Clear) Urine pH (5-8) Ur Specific [place] (1.005-1.025) Urine Protein (Negative) mg/dL Urine Ketones (Negative) mg/dL Urine Blood (Negative) Urine Nitrite (Negative) Urine Bilirubin (Negative) Urine Urobilinogen (Up TO 0.2) EU/dL Ur Leukocyte Esterase (Negative) Urine RBC (0-2) HPF Urine WBC (0-5) HPF Ur Epithelial Cells (Negative) HPF Urine Crystals (Negative) HPF Urine Bacteria (Negative) HPF Urine Casts (Negative) LPF Urine Mucus (Negative) Urine Other (Negative) Ur Culture Indicated? Urine Glucose (Negative) mg/dL Patient ABO/Rh B Positive Antibody Screen NEGATIVE Range/Units 02/22/21 02/22/21 02/22/21 13:10 13:10 13:10 WBC (4.4-10.8) 10^3/uL RBC (3.93-5.22) 10^6/uL Hgb (11.2-15.7) g/dL Hct (36.0-46.0) % MCV (80-95) fL MCH (27.0-33.0) pg MCHC (32.0-36.0) % RDW (11.7-14.6) % Plt Count (130-400) 10^3/uL MPV (8.0-11.0) fL Immature Gran % Neutrophils % Band Neutrophils % Lymphocytes % Atypical Lymphs % Monocytes % Eosinophils % Basophils % Metamyelocytes % Nucleated RBC % % Absolute Neutrophils (1.2-6.7) 10^3/uL Absolute Lymphocytes (1.2-3.4) 10^3/uL Absolute Monocytes (0.1-0.8) 10^3/uL Absolute Eosinophils (0.0-0.7) 10^3/uL Absolute Basophils (0.0-0.2) 10^3/uL RBC Morphology ESR (0-20) mm/hr PT (9.3-11.0) sec INR (0.9-1.1) APTT (21.0-27.5) sec D-Dimer (<500) ng/mlFEU Sample Site ABG pH (7.35-7.45) ABG pCO2 (35-45) mmHg ABG pO2 (80-105) mmHg ABG HCO3 (22-26) mmol/L ABG Total CO2 (23-27) mmol/L ABG O2 Saturation (95-98) % ABG Base Excess (-2-3) mmol/L VBG Lactate (0.6-1.4) mmol/L FiO2 (liters per min) L Sodium (136-145) mmol/L Potassium (3.5-5.1) mmol/L Chloride (98-107) mmol/L Carbon Dioxide (21.0-32.0) mmol/L Anion Gap (3-11) mmol/L BUN (7-18) mg/dL Creatinine (0.55-1.02) mg/dL Estimated GFR/1.73 m2 (mL/min/1.73m2) Glucose (74-106) mg/dL Calcium (8.5-10.1) mg/dL Magnesium (1.8-2.4) mg/dL Ferritin (8-252) ng/mL Total Bilirubin (0.2-1.0) mg/dL AST (15-37) U/L ALT (14-59) U/L Alkaline Phosphatase (46-116) U/L Troponin I (<0.06) ng/mL < 0.05 C-Reactive Protein (0.0-0.3) mg/dL 15.17 H NT-Pro-B Natriuret Pep (<300) pg/mL 30 Total Protein (6.4-8.2) g/dL Albumin (3.4-5.0) g/dL Procalcitonin ng/mL < 0.1 TSH (0.36-3.74) uIU/mL Urine Color (Yellow) Urine Clarity (Clear) Urine pH (5-8) Ur Specific [place] (1.005-1.025) Urine Protein (Negative) mg/dL Urine Ketones (Negative) mg/dL Urine Blood (Negative) Urine Nitrite (Negative) Urine Bilirubin (Negative) Urine Urobilinogen (Up TO 0.2) EU/dL Ur Leukocyte Esterase (Negative) Urine RBC (0-2) HPF Urine WBC (0-5) HPF Ur Epithelial Cells (Negative) HPF Urine Crystals (Negative) HPF Urine Bacteria (Negative) HPF Urine Casts (Negative) LPF Urine Mucus (Negative) Urine Other (Negative) Ur Culture Indicated? Urine Glucose (Negative) mg/dL Patient ABO/Rh Antibody Screen Range/Units 02/22/21 02/23/21 02/23/21 13:15 07:40 07:40 WBC (4.4-10.8) 10^3/uL RBC (3.93-5.22) 10^6/uL Hgb (11.2-15.7) g/dL Hct (36.0-46.0) % MCV (80-95) fL MCH (27.0-33.0) pg MCHC (32.0-36.0) % RDW (11.7-14.6) % Plt Count (130-400) 10^3/uL MPV (8.0-11.0) fL Immature Gran % Neutrophils % Band Neutrophils % Lymphocytes % Atypical Lymphs % Monocytes % Eosinophils % Basophils % Metamyelocytes % Nucleated RBC % % Absolute Neutrophils (1.2-6.7) 10^3/uL Absolute Lymphocytes (1.2-3.4) 10^3/uL Absolute Monocytes (0.1-0.8) 10^3/uL Absolute Eosinophils (0.0-0.7) 10^3/uL Absolute Basophils (0.0-0.2) 10^3/uL RBC Morphology ESR (0-20) mm/hr PT (9.3-11.0) sec INR (0.9-1.1) APTT (21.0-27.5) sec D-Dimer (<500) ng/mlFEU Sample Site ABG pH (7.35-7.45) ABG pCO2 (35-45) mmHg ABG pO2 (80-105) mmHg ABG HCO3 (22-26) mmol/L ABG Total CO2 (23-27) mmol/L ABG O2 Saturation (95-98) % ABG Base Excess (-2-3) mmol/L VBG Lactate (0.6-1.4) mmol/L FiO2 (liters per min) L Sodium (136-145) mmol/L 135 L Potassium (3.5-5.1) mmol/L 4.1 Chloride (98-107) mmol/L 99 Carbon Dioxide (21.0-32.0) mmol/L 13.4 L Anion Gap (3-11) mmol/L 22.6 H BUN (7-18) mg/dL 16 D Creatinine (0.55-1.02) mg/dL 0.9 Estimated GFR/1.73 m2 (mL/min/1.73m2) >= 60.00 Glucose (74-106) mg/dL 142 H Calcium (8.5-10.1) mg/dL 8.6 Magnesium (1.8-2.4) mg/dL 2.1 Ferritin (8-252) ng/mL Total Bilirubin (0.2-1.0) mg/dL 0.4 AST (15-37) U/L 31 ALT (14-59) U/L 40 Alkaline Phosphatase (46-116) U/L 110 Troponin I (<0.06) ng/mL C-Reactive Protein (0.0-0.3) mg/dL 15.87 H NT-Pro-B Natriuret Pep (<300) pg/mL Total Protein (6.4-8.2) g/dL 8.3 H Albumin (3.4-5.0) g/dL 3.3 L Procalcitonin ng/mL TSH (0.36-3.74) uIU/mL Urine Color (Yellow) Yellow Urine Clarity (Clear) Clear Urine pH (5-8) 6.0 Ur Specific [place] (1.005-1.025) 1.020 Urine Protein (Negative) mg/dL 30 H Urine Ketones (Negative) mg/dL >=160 H Urine Blood (Negative) Trace-lysed H Urine Nitrite (Negative) Negative Urine Bilirubin (Negative) Small H Urine Urobilinogen (Up TO 0.2) EU/dL 0.2 Ur Leukocyte Esterase (Negative) Negative Urine RBC (0-2) HPF 0-2 Urine WBC (0-5) HPF 3-5 Ur Epithelial Cells (Negative) HPF Many Urine Crystals (Negative) HPF Negative Urine Bacteria (Negative) HPF Moderate Urine Casts (Negative) LPF Negative Urine Mucus (Negative) Negative Urine Other (Negative) Few Yeast Ur Culture Indicated? No Urine Glucose (Negative) mg/dL 500 H Patient ABO/Rh Antibody Screen Range/Units 02/23/21 02/23/21 02/23/21 07:40 07:40 09:20 WBC (4.4-10.8) 10^3/uL 7.26 RBC (3.93-5.22) 10^6/uL 4.97 Hgb (11.2-15.7) g/dL 14.6 Hct (36.0-46.0) % 44.8 MCV (80-95) fL 90.1 MCH (27.0-33.0) pg 29.4 MCHC (32.0-36.0) % 32.6 RDW (11.7-14.6) % 13.4 Plt Count (130-400) 10^3/uL 96 L D MPV (8.0-11.0) fL 11.5 H Immature Gran % 3.9 Neutrophils % 72.1 Band Neutrophils % Lymphocytes % 18.3 Atypical Lymphs % Monocytes % 5.0 Eosinophils % 0.0 Basophils % 0.7 Metamyelocytes % Nucleated RBC % % 0 Absolute Neutrophils (1.2-6.7) 10^3/uL 5.24 Absolute Lymphocytes (1.2-3.4) 10^3/uL 1.33 Absolute Monocytes (0.1-0.8) 10^3/uL 0.36 Absolute Eosinophils (0.0-0.7) 10^3/uL 0.00 Absolute Basophils (0.0-0.2) 10^3/uL 0.05 RBC Morphology ESR (0-20) mm/hr PT (9.3-11.0) sec INR (0.9-1.1) APTT (21.0-27.5) sec D-Dimer (<500) ng/mlFEU 774 H Sample Site Left Radial ABG pH (7.35-7.45) 7.31 L ABG pCO2 (35-45) mmHg 21 L ABG pO2 (80-105) mmHg 84 ABG HCO3 (22-26) mmol/L 11 L ABG Total CO2 (23-27) mmol/L 11 L ABG O2 Saturation (95-98) % 96 ABG Base Excess (-2-3) mmol/L -16 L VBG Lactate (0.6-1.4) mmol/L FiO2 (liters per min) L 2 Sodium (136-145) mmol/L Potassium (3.5-5.1) mmol/L Chloride (98-107) mmol/L Carbon Dioxide (21.0-32.0) mmol/L Anion Gap (3-11) mmol/L BUN (7-18) mg/dL Creatinine (0.55-1.02) mg/dL Estimated GFR/1.73 m2 (mL/min/1.73m2) Glucose (74-106) mg/dL Calcium (8.5-10.1) mg/dL Magnesium (1.8-2.4) mg/dL Ferritin (8-252) ng/mL Total Bilirubin (0.2-1.0) mg/dL AST (15-37) U/L ALT (14-59) U/L Alkaline Phosphatase (46-116) U/L Troponin I (<0.06) ng/mL C-Reactive Protein (0.0-0.3) mg/dL NT-Pro-B Natriuret Pep (<300) pg/mL Total Protein (6.4-8.2) g/dL Albumin (3.4-5.0) g/dL Procalcitonin ng/mL TSH (0.36-3.74) uIU/mL Urine Color (Yellow) Urine Clarity (Clear) Urine pH (5-8) Ur Specific [place] (1.005-1.025) Urine Protein (Negative) mg/dL Urine Ketones (Negative) mg/dL Urine Blood (Negative) Urine Nitrite (Negative) Urine Bilirubin (Negative) Urine Urobilinogen (Up TO 0.2) EU/dL Ur Leukocyte Esterase (Negative) Urine RBC (0-2) HPF Urine WBC (0-5) HPF Ur Epithelial Cells (Negative) HPF Urine Crystals (Negative) HPF Urine Bacteria (Negative) HPF Urine Casts (Negative) LPF Urine Mucus (Negative) Urine Other (Negative) Ur Culture Indicated? Urine Glucose (Negative) mg/dL Patient ABO/Rh Antibody Screen Range/Units 02/23/21 02/23/21 02/23/21 10:50 12:45 14:00 WBC (4.4-10.8) 10^3/uL RBC (3.93-5.22) 10^6/uL Hgb (11.2-15.7) g/dL Hct (36.0-46.0) % MCV (80-95) fL MCH (27.0-33.0) pg MCHC (32.0-36.0) % RDW (11.7-14.6) % Plt Count (130-400) 10^3/uL MPV (8.0-11.0) fL Immature Gran % Neutrophils % Band Neutrophils % Lymphocytes % Atypical Lymphs % Monocytes % Eosinophils % Basophils % Metamyelocytes % Nucleated RBC % % Absolute Neutrophils (1.2-6.7) 10^3/uL Absolute Lymphocytes (1.2-3.4) 10^3/uL Absolute Monocytes (0.1-0.8) 10^3/uL Absolute Eosinophils (0.0-0.7) 10^3/uL Absolute Basophils (0.0-0.2) 10^3/uL RBC Morphology ESR (0-20) mm/hr PT (9.3-11.0) sec INR (0.9-1.1) APTT (21.0-27.5) sec D-Dimer (<500) ng/mlFEU Sample Site ABG pH (7.35-7.45) ABG pCO2 (35-45) mmHg ABG pO2 (80-105) mmHg ABG HCO3 (22-26) mmol/L ABG Total CO2 (23-27) mmol/L ABG O2 Saturation (95-98) % ABG Base Excess (-2-3) mmol/L VBG Lactate (0.6-1.4) mmol/L FiO2 (liters per min) L Sodium (136-145) mmol/L 133 L 133 L Potassium (3.5-5.1) mmol/L 4.8 5.0 Chloride (98-107) mmol/L 97 L 97 L Carbon Dioxide (21.0-32.0) mmol/L 17.7 L 17.2 L Anion Gap (3-11) mmol/L 18.3 H 18.8 H BUN (7-18) mg/dL 17 17 Creatinine (0.55-1.02) mg/dL 0.9 1.3 H Estimated GFR/1.73 m2 (mL/min/1.73m2) >= 60.00 43.72 Glucose (74-106) mg/dL 225 H D 300 H Calcium (8.5-10.1) mg/dL 8.9 9.1 Magnesium (1.8-2.4) mg/dL Ferritin (8-252) ng/mL Total Bilirubin (0.2-1.0) mg/dL AST (15-37) U/L ALT (14-59) U/L Alkaline Phosphatase (46-116) U/L Troponin I (<0.06) ng/mL C-Reactive Protein (0.0-0.3) mg/dL NT-Pro-B Natriuret Pep (<300) pg/mL Total Protein (6.4-8.2) g/dL Albumin (3.4-5.0) g/dL Procalcitonin ng/mL TSH (0.36-3.74) uIU/mL Urine Color (Yellow) Yellow Urine Clarity (Clear) Clear Urine pH (5-8) 5.5 Ur Specific [place] (1.005-1.025) 1.020 Urine Protein (Negative) mg/dL 100 H Urine Ketones (Negative) mg/dL 80 H Urine Blood (Negative) Trace-intact H Urine Nitrite (Negative) Negative Urine Bilirubin (Negative) Small H Urine Urobilinogen (Up TO 0.2) EU/dL 0.2 Ur Leukocyte Esterase (Negative) Negative Urine RBC (0-2) HPF 0-2 Urine WBC (0-5) HPF 0-2 Ur Epithelial Cells (Negative) HPF Few Urine Crystals (Negative) HPF Negative Urine Bacteria (Negative) HPF Few Urine Casts (Negative) LPF Negative Urine Mucus (Negative) Negative Urine Other (Negative) Negative Ur Culture Indicated? No Urine Glucose (Negative) mg/dL 500 H Patient ABO/Rh Antibody Screen Range/Units 02/23/21 02/23/21 02/23/21 18:20 22:10 Unknown WBC (4.4-10.8) 10^3/uL RBC (3.93-5.22) 10^6/uL Hgb (11.2-15.7) g/dL Hct (36.0-46.0) % MCV (80-95) fL MCH (27.0-33.0) pg MCHC (32.0-36.0) % RDW (11.7-14.6) % Plt Count (130-400) 10^3/uL MPV (8.0-11.0) fL Immature Gran % Neutrophils % Band Neutrophils % Lymphocytes % Atypical Lymphs % Monocytes % Eosinophils % Basophils % Metamyelocytes % Nucleated RBC % % Absolute Neutrophils (1.2-6.7) 10^3/uL Absolute Lymphocytes (1.2-3.4) 10^3/uL Absolute Monocytes (0.1-0.8) 10^3/uL Absolute Eosinophils (0.0-0.7) 10^3/uL Absolute Basophils (0.0-0.2) 10^3/uL RBC Morphology ESR (0-20) mm/hr PT (9.3-11.0) sec INR (0.9-1.1) APTT (21.0-27.5) sec D-Dimer (<500) ng/mlFEU Sample Site ABG pH (7.35-7.45) ABG pCO2 (35-45) mmHg ABG pO2 (80-105) mmHg ABG HCO3 (22-26) mmol/L ABG Total CO2 (23-27) mmol/L ABG O2 Saturation (95-98) % ABG Base Excess (-2-3) mmol/L VBG Lactate (0.6-1.4) mmol/L Cancelled FiO2 (liters per min) L Sodium (136-145) mmol/L 133 L 135 L Potassium (3.5-5.1) mmol/L 3.9 D 4.0 Chloride (98-107) mmol/L 101 101 Carbon Dioxide (21.0-32.0) mmol/L 19.2 L 22.6 Anion Gap (3-11) mmol/L 12.8 H 11.4 H BUN (7-18) mg/dL 22 H 22 H Creatinine (0.55-1.02) mg/dL 1.0 0.8 Estimated GFR/1.73 m2 (mL/min/1.73m2) 59.18 >= 60.00 Glucose (74-106) mg/dL 277 H 169 H D Calcium (8.5-10.1) mg/dL 9.2 9.2 Magnesium (1.8-2.4) mg/dL Ferritin (8-252) ng/mL Total Bilirubin (0.2-1.0) mg/dL AST (15-37) U/L ALT (14-59) U/L Alkaline Phosphatase (46-116) U/L Troponin I (<0.06) ng/mL C-Reactive Protein (0.0-0.3) mg/dL NT-Pro-B Natriuret Pep (<300) pg/mL Total Protein (6.4-8.2) g/dL Albumin (3.4-5.0) g/dL Procalcitonin ng/mL TSH (0.36-3.74) uIU/mL Urine Color (Yellow) Urine Clarity (Clear) Urine pH (5-8) Ur Specific [place] (1.005-1.025) Urine Protein (Negative) mg/dL Urine Ketones (Negative) mg/dL Urine Blood (Negative) Urine Nitrite (Negative) Urine Bilirubin (Negative) Urine Urobilinogen (Up TO 0.2) EU/dL Ur Leukocyte Esterase (Negative) Urine RBC (0-2) HPF Urine WBC (0-5) HPF Ur Epithelial Cells (Negative) HPF Urine Crystals (Negative) HPF Urine Bacteria (Negative) HPF Urine Casts (Negative) LPF Urine Mucus (Negative) Urine Other (Negative) Ur Culture Indicated? Urine Glucose (Negative) mg/dL Patient ABO/Rh Antibody Screen Range/Units 02/24/21 02/24/21 02/24/21 02:20 06:07 06:07 WBC (4.4-10.8) 10^3/uL 7.76 RBC (3.93-5.22) 10^6/uL 4.77 Hgb (11.2-15.7) g/dL 14.0 Hct (36.0-46.0) % 41.6 MCV (80-95) fL 87.2 MCH (27.0-33.0) pg 29.4 MCHC (32.0-36.0) % 33.7 RDW (11.7-14.6) % 13.2 Plt Count (130-400) 10^3/uL 131 MPV (8.0-11.0) fL 10.3 Immature Gran % 1.5 Neutrophils % 73.7 Band Neutrophils % Lymphocytes % 18.4 Atypical Lymphs % Monocytes % 6.1 Eosinophils % 0.0 Basophils % 0.3 Metamyelocytes % Nucleated RBC % % 0 Absolute Neutrophils (1.2-6.7) 10^3/uL 5.72 Absolute Lymphocytes (1.2-3.4) 10^3/uL 1.43 Absolute Monocytes (0.1-0.8) 10^3/uL 0.47 Absolute Eosinophils (0.0-0.7) 10^3/uL 0.00 Absolute Basophils (0.0-0.2) 10^3/uL 0.02 RBC Morphology ESR (0-20) mm/hr PT (9.3-11.0) sec INR (0.9-1.1) APTT (21.0-27.5) sec D-Dimer (<500) ng/mlFEU Sample Site ABG pH (7.35-7.45) ABG pCO2 (35-45) mmHg ABG pO2 (80-105) mmHg ABG HCO3 (22-26) mmol/L ABG Total CO2 (23-27) mmol/L ABG O2 Saturation (95-98) % ABG Base Excess (-2-3) mmol/L VBG Lactate (0.6-1.4) mmol/L FiO2 (liters per min) L Sodium (136-145) mmol/L 132 L 137 Potassium (3.5-5.1) mmol/L 3.7 3.3 L Chloride (98-107) mmol/L 101 102 Carbon Dioxide (21.0-32.0) mmol/L 20.9 L 23.0 Anion Gap (3-11) mmol/L 10.1 12.0 H BUN (7-18) mg/dL 21 H 21 H Creatinine (0.55-1.02) mg/dL 0.8 0.7 Estimated GFR/1.73 m2 (mL/min/1.73m2) >= 60.00 >= 60.00 Glucose (74-106) mg/dL 130 H 141 H Calcium (8.5-10.1) mg/dL 9.0 8.9 Magnesium (1.8-2.4) mg/dL Ferritin (8-252) ng/mL Total Bilirubin (0.2-1.0) mg/dL 0.3 AST (15-37) U/L 50 H ALT (14-59) U/L 44 Alkaline Phosphatase (46-116) U/L 104 Troponin I (<0.06) ng/mL C-Reactive Protein (0.0-0.3) mg/dL 6.27 H NT-Pro-B Natriuret Pep (<300) pg/mL Total Protein (6.4-8.2) g/dL 7.6 Albumin (3.4-5.0) g/dL 3.1 L Procalcitonin ng/mL TSH (0.36-3.74) uIU/mL Urine Color (Yellow) Urine Clarity (Clear) Urine pH (5-8) Ur Specific [place] (1.005-1.025) Urine Protein (Negative) mg/dL Urine Ketones (Negative) mg/dL Urine Blood (Negative) Urine Nitrite (Negative) Urine Bilirubin (Negative) Urine Urobilinogen (Up TO 0.2) EU/dL Ur Leukocyte Esterase (Negative) Urine RBC (0-2) HPF Urine WBC (0-5) HPF Ur Epithelial Cells (Negative) HPF Urine Crystals (Negative) HPF Urine Bacteria (Negative) HPF Urine Casts (Negative) LPF Urine Mucus (Negative) Urine Other (Negative) Ur Culture Indicated? Urine Glucose (Negative) mg/dL Patient ABO/Rh Antibody Screen Range/Units 02/24/21 02/24/21 02/24/21 06:07 06:07 10:50 WBC (4.4-10.8) 10^3/uL RBC (3.93-5.22) 10^6/uL Hgb (11.2-15.7) g/dL Hct (36.0-46.0) % MCV (80-95) fL MCH (27.0-33.0) pg MCHC (32.0-36.0) % RDW (11.7-14.6) % Plt Count (130-400) 10^3/uL MPV (8.0-11.0) fL Immature Gran % Neutrophils % Band Neutrophils % Lymphocytes % Atypical Lymphs % Monocytes % Eosinophils % Basophils % Metamyelocytes % Nucleated RBC % % Absolute Neutrophils (1.2-6.7) 10^3/uL Absolute Lymphocytes (1.2-3.4) 10^3/uL Absolute Monocytes (0.1-0.8) 10^3/uL Absolute Eosinophils (0.0-0.7) 10^3/uL Absolute Basophils (0.0-0.2) 10^3/uL RBC Morphology ESR (0-20) mm/hr PT (9.3-11.0) sec INR (0.9-1.1) APTT (21.0-27.5) sec D-Dimer (<500) ng/mlFEU 563 H Sample Site ABG pH (7.35-7.45) ABG pCO2 (35-45) mmHg ABG pO2 (80-105) mmHg ABG HCO3 (22-26) mmol/L ABG Total CO2 (23-27) mmol/L ABG O2 Saturation (95-98) % ABG Base Excess (-2-3) mmol/L VBG Lactate (0.6-1.4) mmol/L FiO2 (liters per min) L Sodium (136-145) mmol/L 136 Potassium (3.5-5.1) mmol/L 3.7 Chloride (98-107) mmol/L 101 Carbon Dioxide (21.0-32.0) mmol/L 19.9 L Anion Gap (3-11) mmol/L 15.1 H BUN (7-18) mg/dL 19 H Creatinine (0.55-1.02) mg/dL 0.6 Estimated GFR/1.73 m2 (mL/min/1.73m2) >= 60.00 Glucose (74-106) mg/dL 182 H Calcium (8.5-10.1) mg/dL 8.3 L Magnesium (1.8-2.4) mg/dL Ferritin (8-252) ng/mL Total Bilirubin (0.2-1.0) mg/dL AST (15-37) U/L ALT (14-59) U/L Alkaline Phosphatase (46-116) U/L Troponin I (<0.06) ng/mL C-Reactive Protein (0.0-0.3) mg/dL NT-Pro-B Natriuret Pep (<300) pg/mL Total Protein (6.4-8.2) g/dL Albumin (3.4-5.0) g/dL Procalcitonin ng/mL < 0.1 TSH (0.36-3.74) uIU/mL Urine Color (Yellow) Urine Clarity (Clear) Urine pH (5-8) Ur Specific [place] (1.005-1.025) Urine Protein (Negative) mg/dL Urine Ketones (Negative) mg/dL Urine Blood (Negative) Urine Nitrite (Negative) Urine Bilirubin (Negative) Urine Urobilinogen (Up TO 0.2) EU/dL Ur Leukocyte Esterase (Negative) Urine RBC (0-2) HPF Urine WBC (0-5) HPF Ur Epithelial Cells (Negative) HPF Urine Crystals (Negative) HPF Urine Bacteria (Negative) HPF Urine Casts (Negative) LPF Urine Mucus (Negative) Urine Other (Negative) Ur Culture Indicated? Urine Glucose (Negative) mg/dL Patient ABO/Rh Antibody Screen Range/Units 02/24/21 02/24/21 02/25/21 14:00 18:00 06:30 WBC (4.4-10.8) 10^3/uL RBC (3.93-5.22) 10^6/uL Hgb (11.2-15.7) g/dL Hct (36.0-46.0) % MCV (80-95) fL MCH (27.0-33.0) pg MCHC (32.0-36.0) % RDW (11.7-14.6) % Plt Count (130-400) 10^3/uL MPV (8.0-11.0) fL Immature Gran % Neutrophils % Band Neutrophils % Lymphocytes % Atypical Lymphs % Monocytes % Eosinophils % Basophils % Metamyelocytes % Nucleated RBC % % Absolute Neutrophils (1.2-6.7) 10^3/uL Absolute Lymphocytes (1.2-3.4) 10^3/uL Absolute Monocytes (0.1-0.8) 10^3/uL Absolute Eosinophils (0.0-0.7) 10^3/uL Absolute Basophils (0.0-0.2) 10^3/uL RBC Morphology ESR (0-20) mm/hr PT (9.3-11.0) sec INR (0.9-1.1) APTT (21.0-27.5) sec D-Dimer (<500) ng/mlFEU Sample Site ABG pH (7.35-7.45) ABG pCO2 (35-45) mmHg ABG pO2 (80-105) mmHg ABG HCO3 (22-26) mmol/L ABG Total CO2 (23-27) mmol/L ABG O2 Saturation (95-98) % ABG Base Excess (-2-3) mmol/L VBG Lactate (0.6-1.4) mmol/L FiO2 (liters per min) L Sodium (136-145) mmol/L 136 137 136 Potassium (3.5-5.1) mmol/L 3.8 4.0 3.5 Chloride (98-107) mmol/L 100 102 100 Carbon Dioxide (21.0-32.0) mmol/L 22.1 22.9 21.8 Anion Gap (3-11) mmol/L 13.9 H 12.1 H 14.2 H BUN (7-18) mg/dL 16 18 17 Creatinine (0.55-1.02) mg/dL 0.9 0.7 0.5 L Estimated GFR/1.73 m2 (mL/min/1.73m2) >= 60.00 >= 60.00 >= 60.00 Glucose (74-106) mg/dL 223 H 236 H 182 H Calcium (8.5-10.1) mg/dL 8.7 8.9 8.5 Magnesium (1.8-2.4) mg/dL Ferritin (8-252) ng/mL 660 H Total Bilirubin (0.2-1.0) mg/dL 0.4 AST (15-37) U/L 37 ALT (14-59) U/L 38 Alkaline Phosphatase (46-116) U/L 105 Troponin I (<0.06) ng/mL C-Reactive Protein (0.0-0.3) mg/dL 10.78 H NT-Pro-B Natriuret Pep (<300) pg/mL Total Protein (6.4-8.2) g/dL 7.7 Albumin (3.4-5.0) g/dL 3.0 L Procalcitonin ng/mL TSH (0.36-3.74) uIU/mL Urine Color (Yellow) Urine Clarity (Clear) Urine pH (5-8) Ur Specific [place] (1.005-1.025) Urine Protein (Negative) mg/dL Urine Ketones (Negative) mg/dL Urine Blood (Negative) Urine Nitrite (Negative) Urine Bilirubin (Negative) Urine Urobilinogen (Up TO 0.2) EU/dL Ur Leukocyte Esterase (Negative) Urine RBC (0-2) HPF Urine WBC (0-5) HPF Ur Epithelial Cells (Negative) HPF Urine Crystals (Negative) HPF Urine Bacteria (Negative) HPF Urine Casts (Negative) LPF Urine Mucus (Negative) Urine Other (Negative) Ur Culture Indicated? Urine Glucose (Negative) mg/dL Patient ABO/Rh Antibody Screen Range/Units 02/25/21 02/25/21 02/25/21 06:30 06:30 06:30 WBC (4.4-10.8) 10^3/uL 7.99 RBC (3.93-5.22) 10^6/uL 4.91 Hgb (11.2-15.7) g/dL 14.4 Hct (36.0-46.0) % 43.1 MCV (80-95) fL 87.8 MCH (27.0-33.0) pg 29.3 MCHC (32.0-36.0) % 33.4 RDW (11.7-14.6) % 13.4 Plt Count (130-400) 10^3/uL 185 MPV (8.0-11.0) fL 11.1 H Immature Gran % 0.0 Neutrophils % 74.0 Band Neutrophils % 3 Lymphocytes % 17.0 Atypical Lymphs % 5 Monocytes % 1.0 Eosinophils % 0.0 Basophils % 0.0 Metamyelocytes % Nucleated RBC % % 0 Absolute Neutrophils (1.2-6.7) 10^3/uL 6.15 Absolute Lymphocytes (1.2-3.4) 10^3/uL 1.76 Absolute Monocytes (0.1-0.8) 10^3/uL 0.08 L Absolute Eosinophils (0.0-0.7) 10^3/uL 0.00 Absolute Basophils (0.0-0.2) 10^3/uL 0.00 RBC Morphology Normal ESR (0-20) mm/hr 60 H PT (9.3-11.0) sec INR (0.9-1.1) APTT (21.0-27.5) sec D-Dimer (<500) ng/mlFEU 669 H Sample Site ABG pH (7.35-7.45) ABG pCO2 (35-45) mmHg ABG pO2 (80-105) mmHg ABG HCO3 (22-26) mmol/L ABG Total CO2 (23-27) mmol/L ABG O2 Saturation (95-98) % ABG Base Excess (-2-3) mmol/L VBG Lactate (0.6-1.4) mmol/L FiO2 (liters per min) L Sodium (136-145) mmol/L Potassium (3.5-5.1) mmol/L Chloride (98-107) mmol/L Carbon Dioxide (21.0-32.0) mmol/L Anion Gap (3-11) mmol/L BUN (7-18) mg/dL Creatinine (0.55-1.02) mg/dL Estimated GFR/1.73 m2 (mL/min/1.73m2) Glucose (74-106) mg/dL Calcium (8.5-10.1) mg/dL Magnesium (1.8-2.4) mg/dL Ferritin (8-252) ng/mL Total Bilirubin (0.2-1.0) mg/dL AST (15-37) U/L ALT (14-59) U/L Alkaline Phosphatase (46-116) U/L Troponin I (<0.06) ng/mL C-Reactive Protein (0.0-0.3) mg/dL NT-Pro-B Natriuret Pep (<300) pg/mL Total Protein (6.4-8.2) g/dL Albumin (3.4-5.0) g/dL Procalcitonin ng/mL TSH (0.36-3.74) uIU/mL Urine Color (Yellow) Urine Clarity (Clear) Urine pH (5-8) Ur Specific [place] (1.005-1.025) Urine Protein (Negative) mg/dL Urine Ketones (Negative) mg/dL Urine Blood (Negative) Urine Nitrite (Negative) Urine Bilirubin (Negative) Urine Urobilinogen (Up TO 0.2) EU/dL Ur Leukocyte Esterase (Negative) Urine RBC (0-2) HPF Urine WBC (0-5) HPF Ur Epithelial Cells (Negative) HPF Urine Crystals (Negative) HPF Urine Bacteria (Negative) HPF Urine Casts (Negative) LPF Urine Mucus (Negative) Urine Other (Negative) Ur Culture Indicated? Urine Glucose (Negative) mg/dL Patient ABO/Rh Antibody Screen Range/Units 02/26/21 02/26/21 02/26/21 06:30 06:30 06:30 WBC (4.4-10.8) 10^3/uL 6.09 RBC (3.93-5.22) 10^6/uL 5.03 Hgb (11.2-15.7) g/dL 14.7 Hct (36.0-46.0) % 43.6 MCV (80-95) fL 86.7 MCH (27.0-33.0) pg 29.2 MCHC (32.0-36.0) % 33.7 RDW (11.7-14.6) % 13.4 Plt Count (130-400) 10^3/uL 228 MPV (8.0-11.0) fL 11.3 H Immature Gran % 0.0 Neutrophils % 61.0 Band Neutrophils % 1 Lymphocytes % 32.0 Atypical Lymphs % Monocytes % 6.0 Eosinophils % 0.0 Basophils % 0.0 Metamyelocytes % Nucleated RBC % % 0 Absolute Neutrophils (1.2-6.7) 10^3/uL 3.78 Absolute Lymphocytes (1.2-3.4) 10^3/uL 1.95 Absolute Monocytes (0.1-0.8) 10^3/uL 0.37 Absolute Eosinophils (0.0-0.7) 10^3/uL 0.00 Absolute Basophils (0.0-0.2) 10^3/uL 0.00 RBC Morphology Normal ESR (0-20) mm/hr PT (9.3-11.0) sec INR (0.9-1.1) APTT (21.0-27.5) sec D-Dimer (<500) ng/mlFEU 670 H Sample Site ABG pH (7.35-7.45) ABG pCO2 (35-45) mmHg ABG pO2 (80-105) mmHg ABG HCO3 (22-26) mmol/L ABG Total CO2 (23-27) mmol/L ABG O2 Saturation (95-98) % ABG Base Excess (-2-3) mmol/L VBG Lactate (0.6-1.4) mmol/L FiO2 (liters per min) L Sodium (136-145) mmol/L 138 Potassium (3.5-5.1) mmol/L 3.7 Chloride (98-107) mmol/L 100 Carbon Dioxide (21.0-32.0) mmol/L 28.2 Anion Gap (3-11) mmol/L 9.8 BUN (7-18) mg/dL 18 Creatinine (0.55-1.02) mg/dL 0.6 Estimated GFR/1.73 m2 (mL/min/1.73m2) >= 60.00 Glucose (74-106) mg/dL 188 H Calcium (8.5-10.1) mg/dL 9.2 Magnesium (1.8-2.4) mg/dL Ferritin (8-252) ng/mL Total Bilirubin (0.2-1.0) mg/dL 0.4 AST (15-37) U/L 35 ALT (14-59) U/L 37 Alkaline Phosphatase (46-116) U/L 111 Troponin I (<0.06) ng/mL C-Reactive Protein (0.0-0.3) mg/dL 11.81 H NT-Pro-B Natriuret Pep (<300) pg/mL Total Protein (6.4-8.2) g/dL 7.8 Albumin (3.4-5.0) g/dL 3.0 L Procalcitonin ng/mL TSH (0.36-3.74) uIU/mL Urine Color (Yellow) Urine Clarity (Clear) Urine pH (5-8) Ur Specific [place] (1.005-1.025) Urine Protein (Negative) mg/dL Urine Ketones (Negative) mg/dL Urine Blood (Negative) Urine Nitrite (Negative) Urine Bilirubin (Negative) Urine Urobilinogen (Up TO 0.2) EU/dL Ur Leukocyte Esterase (Negative) Urine RBC (0-2) HPF Urine WBC (0-5) HPF Ur Epithelial Cells (Negative) HPF Urine Crystals (Negative) HPF Urine Bacteria (Negative) HPF Urine Casts (Negative) LPF Urine Mucus (Negative) Urine Other (Negative) Ur Culture Indicated? Urine Glucose (Negative) mg/dL Patient ABO/Rh Antibody Screen Range/Units 02/27/21 02/27/21 02/27/21 06:15 06:15 06:15 WBC (4.4-10.8) 10^3/uL 7.99 D RBC (3.93-5.22) 10^6/uL 5.20 Hgb (11.2-15.7) g/dL 14.9 Hct (36.0-46.0) % 45.7 MCV (80-95) fL 87.9 MCH (27.0-33.0) pg 28.7 MCHC (32.0-36.0) % 32.6 RDW (11.7-14.6) % 13.0 Plt Count (130-400) 10^3/uL 331 D MPV (8.0-11.0) fL 11.1 H Immature Gran % 0.0 Neutrophils % 59.0 Band Neutrophils % 3 Lymphocytes % 27.0 Atypical Lymphs % Monocytes % 8.0 Eosinophils % 0.0 Basophils % 1.0 Metamyelocytes % 2 Nucleated RBC % % 0 Absolute Neutrophils (1.2-6.7) 10^3/uL 4.95 Absolute Lymphocytes (1.2-3.4) 10^3/uL 2.16 Absolute Monocytes (0.1-0.8) 10^3/uL 0.64 Absolute Eosinophils (0.0-0.7) 10^3/uL 0.00 Absolute Basophils (0.0-0.2) 10^3/uL 0.08 RBC Morphology Normal ESR (0-20) mm/hr PT (9.3-11.0) sec INR (0.9-1.1) APTT (21.0-27.5) sec D-Dimer (<500) ng/mlFEU 658 H Sample Site ABG pH (7.35-7.45) ABG pCO2 (35-45) mmHg ABG pO2 (80-105) mmHg ABG HCO3 (22-26) mmol/L ABG Total CO2 (23-27) mmol/L ABG O2 Saturation (95-98) % ABG Base Excess (-2-3) mmol/L VBG Lactate (0.6-1.4) mmol/L FiO2 (liters per min) L Sodium (136-145) mmol/L 137 Potassium (3.5-5.1) mmol/L 3.6 Chloride (98-107) mmol/L 98 Carbon Dioxide (21.0-32.0) mmol/L 29.1 Anion Gap (3-11) mmol/L 9.9 BUN (7-18) mg/dL 19 H Creatinine (0.55-1.02) mg/dL 0.6 Estimated GFR/1.73 m2 (mL/min/1.73m2) >= 60.00 Glucose (74-106) mg/dL 180 H Calcium (8.5-10.1) mg/dL 9.5 Magnesium (1.8-2.4) mg/dL Ferritin (8-252) ng/mL Total Bilirubin (0.2-1.0) mg/dL 0.4 AST (15-37) U/L 35 ALT (14-59) U/L 47 Alkaline Phosphatase (46-116) U/L 111 Troponin I (<0.06) ng/mL C-Reactive Protein (0.0-0.3) mg/dL 5.09 H NT-Pro-B Natriuret Pep (<300) pg/mL Total Protein (6.4-8.2) g/dL 7.9 Albumin (3.4-5.0) g/dL 2.9 L Procalcitonin ng/mL TSH (0.36-3.74) uIU/mL Urine Color (Yellow) Urine Clarity (Clear) Urine pH (5-8) Ur Specific [place] (1.005-1.025) Urine Protein (Negative) mg/dL Urine Ketones (Negative) mg/dL Urine Blood (Negative) Urine Nitrite (Negative) Urine Bilirubin (Negative) Urine Urobilinogen (Up TO 0.2) EU/dL Ur Leukocyte Esterase (Negative) Urine RBC (0-2) HPF Urine WBC (0-5) HPF Ur Epithelial Cells (Negative) HPF Urine Crystals (Negative) HPF Urine Bacteria (Negative) HPF Urine Casts (Negative) LPF Urine Mucus (Negative) Urine Other (Negative) Ur Culture Indicated? Urine Glucose (Negative) mg/dL Patient ABO/Rh Antibody Screen Range/Units 02/28/21 02/28/21 02/28/21 06:15 06:15 06:15 WBC (4.4-10.8) 10^3/uL 10.81 H D RBC (3.93-5.22) 10^6/uL 5.43 H Hgb (11.2-15.7) g/dL 15.8 H Hct (36.0-46.0) % 47.7 H MCV (80-95) fL 87.8 MCH (27.0-33.0) pg 29.1 MCHC (32.0-36.0) % 33.1 RDW (11.7-14.6) % 12.8 Plt Count (130-400) 10^3/uL 371 MPV (8.0-11.0) fL 11.2 H Immature Gran % 0.0 Neutrophils % 62.0 Band Neutrophils % 2 Lymphocytes % 28.0 Atypical Lymphs % Monocytes % 6.0 Eosinophils % 1.0 Basophils % 0.0 Metamyelocytes % 1 Nucleated RBC % % 0 Absolute Neutrophils (1.2-6.7) 10^3/uL 6.92 H Absolute Lymphocytes (1.2-3.4) 10^3/uL 3.03 Absolute Monocytes (0.1-0.8) 10^3/uL 0.65 Absolute Eosinophils (0.0-0.7) 10^3/uL 0.11 Absolute Basophils (0.0-0.2) 10^3/uL 0.00 RBC Morphology Normal ESR (0-20) mm/hr PT (9.3-11.0) sec INR (0.9-1.1) APTT (21.0-27.5) sec D-Dimer (<500) ng/mlFEU 574 H Sample Site ABG pH (7.35-7.45) ABG pCO2 (35-45) mmHg ABG pO2 (80-105) mmHg ABG HCO3 (22-26) mmol/L ABG Total CO2 (23-27) mmol/L ABG O2 Saturation (95-98) % ABG Base Excess (-2-3) mmol/L VBG Lactate (0.6-1.4) mmol/L FiO2 (liters per min) L Sodium (136-145) mmol/L 139 Potassium (3.5-5.1) mmol/L 4.1 Chloride (98-107) mmol/L 97 L Carbon Dioxide (21.0-32.0) mmol/L 32.9 H Anion Gap (3-11) mmol/L 9.1 BUN (7-18) mg/dL 21 H Creatinine (0.55-1.02) mg/dL 0.6 Estimated GFR/1.73 m2 (mL/min/1.73m2) >= 60.00 Glucose (74-106) mg/dL 174 H Calcium (8.5-10.1) mg/dL 9.9 Magnesium (1.8-2.4) mg/dL Ferritin (8-252) ng/mL Total Bilirubin (0.2-1.0) mg/dL 0.4 AST (15-37) U/L 48 H ALT (14-59) U/L 64 H Alkaline Phosphatase (46-116) U/L 122 H Troponin I (<0.06) ng/mL C-Reactive Protein (0.0-0.3) mg/dL 2.27 H NT-Pro-B Natriuret Pep (<300) pg/mL Total Protein (6.4-8.2) g/dL 7.7 Albumin (3.4-5.0) g/dL 3.3 L Procalcitonin ng/mL TSH (0.36-3.74) uIU/mL Urine Color (Yellow) Urine Clarity (Clear) Urine pH (5-8) Ur Specific [place] (1.005-1.025) Urine Protein (Negative) mg/dL Urine Ketones (Negative) mg/dL Urine Blood (Negative) Urine Nitrite (Negative) Urine Bilirubin (Negative) Urine Urobilinogen (Up TO 0.2) EU/dL Ur Leukocyte Esterase (Negative) Urine RBC (0-2) HPF Urine WBC (0-5) HPF Ur Epithelial Cells (Negative) HPF Urine Crystals (Negative) HPF Urine Bacteria (Negative) HPF Urine Casts (Negative) LPF Urine Mucus (Negative) Urine Other (Negative) Ur Culture Indicated? Urine Glucose (Negative) mg/dL Patient ABO/Rh Antibody Screen Range/Units 03/01/21 03/01/21 03/01/21 06:25 06:25 06:25 WBC (4.4-10.8) 10^3/uL 11.59 H RBC (3.93-5.22) 10^6/uL 5.08 Hgb (11.2-15.7) g/dL 15.0 Hct (36.0-46.0) % 44.2 MCV (80-95) fL 87.0 MCH (27.0-33.0) pg 29.5 MCHC (32.0-36.0) % 33.9 RDW (11.7-14.6) % 12.4 Plt Count (130-400) 10^3/uL 409 H MPV (8.0-11.0) fL 11.0 Immature Gran % 0.0 Neutrophils % 67.0 Band Neutrophils % 3 Lymphocytes % 23.0 Atypical Lymphs % Monocytes % 5.0 Eosinophils % 0.0 Basophils % 1.0 Metamyelocytes % 1 Nucleated RBC % % 0 Absolute Neutrophils (1.2-6.7) 10^3/uL 8.11 H Absolute Lymphocytes (1.2-3.4) 10^3/uL 2.67 Absolute Monocytes (0.1-0.8) 10^3/uL 0.58 Absolute Eosinophils (0.0-0.7) 10^3/uL 0.00 Absolute Basophils (0.0-0.2) 10^3/uL 0.12 RBC Morphology Normal ESR (0-20) mm/hr PT (9.3-11.0) sec INR (0.9-1.1) APTT (21.0-27.5) sec D-Dimer (<500) ng/mlFEU 403 Sample Site ABG pH (7.35-7.45) ABG pCO2 (35-45) mmHg ABG pO2 (80-105) mmHg ABG HCO3 (22-26) mmol/L ABG Total CO2 (23-27) mmol/L ABG O2 Saturation (95-98) % ABG Base Excess (-2-3) mmol/L VBG Lactate (0.6-1.4) mmol/L FiO2 (liters per min) L Sodium (136-145) mmol/L 137 Potassium (3.5-5.1) mmol/L 3.8 Chloride (98-107) mmol/L 99 Carbon Dioxide (21.0-32.0) mmol/L 31.1 Anion Gap (3-11) mmol/L 6.9 BUN (7-18) mg/dL 19 H Creatinine (0.55-1.02) mg/dL 0.6 Estimated GFR/1.73 m2 (mL/min/1.73m2) >= 60.00 Glucose (74-106) mg/dL 206 H Calcium (8.5-10.1) mg/dL 9.1 Magnesium (1.8-2.4) mg/dL Ferritin (8-252) ng/mL Total Bilirubin (0.2-1.0) mg/dL 0.4 AST (15-37) U/L 31 ALT (14-59) U/L 65 H Alkaline Phosphatase (46-116) U/L 105 Troponin I (<0.06) ng/mL C-Reactive Protein (0.0-0.3) mg/dL 1.06 H NT-Pro-B Natriuret Pep (<300) pg/mL Total Protein (6.4-8.2) g/dL 6.9 Albumin (3.4-5.0) g/dL 3.0 L Procalcitonin ng/mL TSH (0.36-3.74) uIU/mL Urine Color (Yellow) Urine Clarity (Clear) Urine pH (5-8) Ur Specific [place] (1.005-1.025) Urine Protein (Negative) mg/dL Urine Ketones (Negative) mg/dL Urine Blood (Negative) Urine Nitrite (Negative) Urine Bilirubin (Negative) Urine Urobilinogen (Up TO 0.2) EU/dL Ur Leukocyte Esterase (Negative) Urine RBC (0-2) HPF Urine WBC (0-5) HPF Ur Epithelial Cells (Negative) HPF Urine Crystals (Negative) HPF Urine Bacteria (Negative) HPF Urine Casts (Negative) LPF Urine Mucus (Negative) Urine Other (Negative) Ur Culture Indicated? Urine Glucose (Negative) mg/dL Patient ABO/Rh Antibody Screen Assessment and Plan Assessment and plan (1) Pneumonia due to COVID-19 virus: Status: Acute (2) Thrombocytopenia: Status: Chronic (3) Pansinusitis: Status: Acute Qualifiers: Chronicity: acute Recurrence: not specified as recurrent Qualified Code(s): J01.40 - Acute pansinusitis, unspecified (4) DKA (diabetic ketoacidosis): Status: Acute Qualifiers: Diabetes mellitus type: type 2 Diabetes mellitus complication detail: without coma Qualified Code(s): E11.10 - Type 2 diabetes mellitus with ketoacidosis without coma (5) Respiratory failure with hypoxia: Status: Acute Assessment and plan: This is a 50-year-old female with diabetes on Jardiance who is admitted to the ICU for COVID-19 pneumonia as well as glycemic DKA. Her DKA is resolved and her glucose is much better managed on her current regimen of Lantus as compared to when she was on an NPH regimen. She is also improving significantly from an oxygenation standpoint. Her inflammatory markers are significantly improved. We will work on continuing to wean her oxygen. She will likely be able to go home this week. COVID Pneumonia - supplemental O2 to a sat >90% - continue nighttime CPAP at night - proning when able - Duonebs q4h prn - can discontinue Combivent - continue VibraPEP and incentive spirometry - no need to continue trending inflammatory markers as they have improved - continue Decadron and barcitinib until discharge - recommend PFT's 1-2 months after discharge to assess pulmonary function Pansinusitis -continue Augmentin for a total of 10 days Qualifiers: Chronicity: acute Qualified Code(s): J96.01 - Acute respiratory failure with hypoxia
[2021-03-01] MEDS: Enoxaparin 40 MG/0.4 ML SYR SC (09:54)
[2021-03-01] MEDS: Insulin Aspart 300 UNITS/3 ML PEN 15 UNITS SC (09:54)
[2021-03-01] MEDS: Insulin Aspart 300 UNITS/3 ML PEN SC ×4 (09:55→20:57)
[2021-03-01] MEDS: Amoxicillin 875/Clav. 125 TAB PO ×2 (09:56→20:31)
[2021-03-01] MEDS: Benzonatate 200 MG CAP PO ×3 (09:56→20:31)
[2021-03-01] MEDS: Loratidine 10 MG TAB PO (09:56)
[2021-03-01] MEDS: Potassium Chloride 20 MEQ TABCR PO (09:57)
[2021-03-01] MEDS: Dexamethasone 4 MG TAB 6 MG PO (09:57)
[2021-03-01] MEDS: Pantoprazole 40 MG TABCR PO (09:59)
[2021-03-01] MEDS: Ipratropium/Albuterol 4 GM 120 PUFF INH IH ×4 (10:02→20:57)
[2021-03-01] MEDS: Fluticasone NASAL SPRAY 16 GM BTL NS (10:02)
[2021-03-01] MEDS: Insulin Aspart 300 UNITS/3 ML PEN 18 UNITS SC ×2 (12:21→17:00)
--- NOTE | 2021-03-01 12:45 | RESPIRATORY ---
Pt trialled on RA. Pt was taken off oxygen for 15 minutes and walked for 6 minutes. Unable to obtain SpO2 while pt was in motion, but after 6 minutes pt stopped and SpO2 was rechecked to be 98% on RA.
--- NOTE | 2021-03-01 13:30 | W.PM.PROGNOT ---
Date of Service Date of service: 03/01/21 Time of Service: 13:31 Assessment and Plan Assessment and plan (1) Pneumonia due to COVID-19 virus: Status: Acute Assessment and plan: Continue Decadron (change to po) with the addition of baricitinib. Completed remdesivir course. Now with O2 sats in the 95-97% range on RA CPAP tonight w/o bleed in supplemental O2. D-dimer now declining. CRP continues to improve. Planning d/c tomorrow (2) Diabetes: Status: Chronic Assessment and plan: Glucose not controlled. Cont AC insulin at 15 units Novolog. Sliding scale insulin correction doseing; resistant scale. Lantus QHS Monitor and adjust as necessary (3) Hyperlipidemia: Status: Acute Assessment and plan: Atorvastatin 40mg po HS was initiated this admission. (4) Heart block atrioventricular: Status: Acute Assessment and plan: Dr. Kessler is concerned that the CT findings may in fact reflect septic pulmonary emboli. Blood cultures neg x 48 hours. Echocardiogram showed EF of 65-70%. Normal wall motion. No structural abnormalities. No pericardial effusion. (5) DVT prophylaxis: Status: Acute Assessment and plan: Cont subcutaneous Lovenox 40 mg daily Subjective Subjective Patient reports: no new complaints, feels better, tolerating a regular diet and afebrile; denies nausea and vomiting Exam Const General: cooperative, no acute distress and ill appearing acutely Nutritional Appearance: obese Orientation: alert, awake and oriented x3 HENMT Head: normal to inspection Ears: hearing grossly normal bilaterally Face and sinus: normal facial exam Eyes General: appearance normal, both eyes and all related structures Alignment and Position: alignment normal Periorbital: periorbital findings normal Eyelids: eyelids normal Conjunctivae: conjunctivae normal Sclera: sclerae normal Cornea: corneas normal EOM: EOM intact bilaterally Neck Neck: normal visual inspection, full ROM, no meningeal signs, trachea midline and no JVD Chest Chest: normal inspection of the chest Resp Effort & Inspection: able to speak in complete sentences and other (Currently w/o supplemental O2) Auscultation: crackles bilaterally throughout Cardio Jugular venous pressure: no JVD Palpation: normal PMI Rate: tachycardic Rhythm: regular rhythm Heart Sounds: S1 normal, S2 normal and no murmurs GI Inspection: obesity Palpation: soft and no hepatosplenomegaly Auscultation: normal bowel sounds Skin General skin exam: no rashes or lesions noted Rashes: other (tatoo over left lower leg) Hair: normal Extrem General: normal to inspection, no pedal edema and no calf tenderness Psych Appearance: grossly normal Mental Status: mental status grossly normal Speech and Movement: speech and movement normal Mood: congruent mood Affect: normal affect Attitude: cooperative Thought Process: normal Thought Content: normal Insight: insight good Judgment: judgment good Objective Last Vital Signs Temp 36 C L 03/01/21 09:50 Pulse 88 03/01/21 09:50 Resp 20 03/01/21 09:50 BP 101/69 03/01/21 09:50 Pulse Ox 94 03/01/21 10:51 Laboratory Results - last 24 hr 03/01/21 03/01/21 03/01/21 06:25 06:25 06:25 WBC 11.59 H RBC 5.08 Hgb 15.0 Hct 44.2 MCV 87.0 MCH 29.5 MCHC 33.9 RDW 12.4 Plt Count 409 H MPV 11.0 Immature Gran % 0.0 Neutrophils % 67.0 Band Neutrophils % 3 Lymphocytes % 23.0 Monocytes % 5.0 Eosinophils % 0.0 Basophils % 1.0 Metamyelocytes % 1 Nucleated RBC % 0 Absolute Neutrophils 8.11 H Absolute Lymphocytes 2.67 Absolute Monocytes 0.58 Absolute Eosinophils 0.00 Absolute Basophils 0.12 RBC Morphology Normal D-Dimer 403 Sodium 137 Potassium 3.8 Chloride 99 Carbon Dioxide 31.1 Anion Gap 6.9 BUN 19 H Creatinine 0.6 Estimated GFR/1.73 m2 >= 60.00 Glucose 206 H Calcium 9.1 Total Bilirubin 0.4 AST 31 ALT 65 H Alkaline Phosphatase 105 C-Reactive Protein 1.06 H Total Protein 6.9 Albumin 3.0 L
--- NOTE | 2021-03-01 18:15 | CMPROGNOTE_ITS ---
Care Management Progress Note S/O: Jesikadrake MD is now on room air and making great gains towards discharge. CM will continue to follow. A: Jesika is a 50 year old female admitted to [facility] on 02/22/21 with Covid pneumonia. P: Anticipate Jesika will return home when medically cleared. She will be transported via private vehicle by family. She will follow up with her PCP and discharge plan of care. CM will continue to follow.
[2021-03-01] MEDS: Zolpidem 6.25 MG TABCR PO (20:31)
[2021-03-01] MEDS: Escitalopram 10 MG TAB PO (20:31)
[2021-03-01] MEDS: Atorvastatin 40 MG TAB PO (20:31)
[2021-03-01] MEDS: Insulin Glargine 300 UNITS/3 ML PEN 45 UNITS SC (20:58)
[2021-03-02] VITALS (11 sets, daily range): BP systolic 106–127; BP diastolic 66–81; PULSE 69–93; O2SAT 94–96
[2021-03-02] MEDS: Enoxaparin 40 MG/0.4 ML SYR SC (08:02)
[2021-03-02] MEDS: Amoxicillin 875/Clav. 125 TAB PO (08:03)
[2021-03-02] MEDS: Benzonatate 200 MG CAP PO (08:03)
[2021-03-02] MEDS: Dexamethasone 4 MG TAB 6 MG PO (08:04)
[2021-03-02] MEDS: Pantoprazole 40 MG TABCR PO (08:04)
[2021-03-02] MEDS: Loratidine 10 MG TAB PO (08:04)
[2021-03-02] MEDS: Potassium Chloride 20 MEQ TABCR PO (08:04)
[2021-03-02] MEDS: Insulin Aspart 300 UNITS/3 ML PEN SC (08:22)
[2021-03-02] MEDS: Insulin Aspart 300 UNITS/3 ML PEN 18 UNITS SC (08:24)
[2021-03-02] MEDS: Fluticasone NASAL SPRAY 16 GM BTL NS (08:41)
[2021-03-02] MEDS: Ipratropium/Albuterol 4 GM 120 PUFF INH IH (08:41)
--- NOTE | 2021-03-02 10:29 | W.PM.DS.N ---
Date of service: 03/02/21 Time of Service: 10:29 DS: Diagnosis Discharge Diagnosis (1) Pneumonia due to COVID-19 virus: Status: Acute (2) Diabetes: Status: Chronic (3) Hyperlipidemia: Status: Acute (4) Heart block atrioventricular: Status: Acute (5) DVT prophylaxis: Status: Acute Discharge Plan Disposition Patient Disposition: HOME Condition: Good Discharge Details Reason For Visit: Covid Pneumonia Admit Date/Time: 02/22/21 12:41 Admit Provider: Carlos Davis Attending Provider: Carlos Davis Primary Care Provider: Leonor Hendricks [facility] Hospital Course: 50 yr female former smoker w/ PMH DM type 2 (on metformin and jardiance; wears a dexcom meter), Misha's thyroiditis, whose 's boss officiated at a wedding in [place] then exposed her who subsequently exposed the patient to COVID-19. Patient has had symptoms for past 8 days (beginning 02/15). She got tested last and got her results last Saturday 02/17. Symptoms have included headaches, myalgias, decreased appetite and nausea along w/ cough. No loss of sense of taste or smell. Cough is nonproductive and has been getting worse along w/ progressive dyspnea over past couple days. Cough has been keeping her awake. She was not vaccinated for COVID-19 although she has had her pneumovax and usually gets her flu vaccines. She no longer smokes having quit 5 yrs ago. She denies any asthma or COPD. She has hx of PSVT which was diagnosed before her Misha's and led to ablation therapy. In the ER she had workup that included EKG, CTA chest, routine labs including CBC, CMP, and UA. Subsequently she had d-dimer, protime, aPtt, bnp, and serial troponin levels. CBC is remarkable for thrombocytopenia (platelet count 38,000) She has hx of ITP associated w/ prolonged antibiotic course for treatment of foot puncuture wound last spring (platelet count at that time dropped to 13,000 w/ subsequent recovery to normal by September this year. Rest of labs were remarkable for d-dimer of 717, normal troponins, normal TSH, normal procalcitonin, elevated CRP 15, anion gap 15, UA >160 ketones, 30 mg/dL protein, moderate bacteria but many epithelial cells and yeast. CTA chest demonstrated:1. No evidence of acute pulmonary emboli. No pleural effusions. 2. However, there are numerous bilateral non cavitated nodular and confluent infiltrates, this involving all lobes of both lungs and associated with subcarinal adenopathy and slightly enlarged hilar lymph nodes. 3. Hepatic steatosis incidentally noted. Pulmonary medicine consulted. Remdesivir and decadron initiated. CPAP with supplemental oxygen intiated with breaks using high-flow NC. Patient unable to prone. Her inflammatory markers were monitored daily. Given pulmonary medicines concerns about the appearance of possible septic emboli on CT chest, an echocardiogram was obtained. Her estimated EF was 65-70%. Normal heart structure noted. Regarding her DM, NPH insulin initiated but then later transitioned to basal/bolus insulin with much improved control. Her supplemental oxygen demands gradually improved until she mainted her O2 saturations on RA in the mid 90's while sitting/ambulating and asleep with her CPAP in place. She will d/c on a rapid steroid taper. She did have evidence of sinusitis on a head CT and was placed on Augmentin and fluticasone nasal spray; to finish a course after d/c. She plans on obtaining a COVID vaccine; in 3 months. Patient plans on obtaining a flu-vaccine. PCP follow up in 1-2 weeks. Home Meds and New Rx's Prescriptions: New amoxicillin-pot clavulanate 875-125 mg Tablet 1 tab PO BID Qty: 7 RF: 0 nicotine 21 mg/24 hr Patch 24 Hour 21 mg transdermal DAILY PRN PRNQty: 0 RF: 0 fluticasone propionate 50 mcg/actuation [place],Suspension 2 spray NS DAILY Qty: 16 RF: 0 Combivent Respimat 20-100 mcg/actuation Mist 1 puff inhalation QID Qty: 4 RF: 0 dexamethasone 1 mg tablet See Rx Instructions .ROUTE .COMPLEX Qty: 12 RF: 0 Continued metformin 1,000 mg tablet 1,000 mg PO BID RF: 0 Jardiance 25 mg tablet 25 mg PO HS RF: 0 Tremfya 100 mg/mL auto-injector 100 mg SC Q8W RF: 0 escitalopram oxalate [Lexapro] 10 MG tablet 20 mg PO HS RF: 0 norethindrone acetate 5 mg tablet 5 mg PO DAILY RF: 0 insulin lispro [Humalog KwikPen Insulin] 100 unit/mL insulin pen See Rx Instructions .ROUTE .COMPLEX RF: 0 rosuvastatin 20 mg tablet 20 mg PO QPM RF: 0 fenofibrate nanocrystallized 145 mg tablet 145 mg PO DAILY RF: 0 Basaglar KwikPen U-100 Insulin 100 unit/mL (3 mL) insulin pen 25 unit SUBCUT DAILY RF: 0 Ozempic 0.25 mg or 0.5 mg(2 mg/1.5 mL) pen injector 1 mg SUBCUT QWEEK RF: 0 Discharge Instructions Instructions: COVID-19 (Coronavirus Disease 2019)(GEN) Referrals: Leonor Hendricks [Primary Care Provider] - 03/20/21 9:00 am (please arrive at 0845 prior to appointment) Activity:: Activity as Tolerated Equipment/Supplies:: No Equipment Needed Diet:: diabetic diet Discharge Orders Discharge Orders: Discharge Order (Routine); Ordered 03/02/21 Ordered By: Kali Curran Discharge Data Discharge Date/Time-TO BE ENTERED AT DEPARTURE: 03/02/21 11:20 DS: Summary Time Spent with Patient providing and/or coordinating discharge services: Greater than 30 minutes Status at Discharge Functional status at discharge: independent ambulation Overall status at discharge: patient is progressing back to baseline Mental Status: mental status grossly normal Speech and Movement: speech and movement normal Mood: congruent mood Affect: normal affect Exam Const General: cooperative and no acute distress Nutritional Appearance: obese Orientation: alert, awake and oriented x3 HENMT Head: normal to inspection Ears: hearing grossly normal bilaterally Face and sinus: normal facial exam Eyes General: appearance normal, both eyes and all related structures Alignment and Position: alignment normal Periorbital: periorbital findings normal Eyelids: eyelids normal Conjunctivae: conjunctivae normal Sclera: sclerae normal Cornea: corneas normal EOM: EOM intact bilaterally Neck Neck: normal visual inspection, full ROM, no meningeal signs, trachea midline and no JVD Chest Chest: normal inspection of the chest Resp Effort & Inspection: able to speak in complete sentences Auscultation: clear to auscultation bilaterally Cardio Jugular venous pressure: no JVD Palpation: normal PMI Rate: tachycardic Rhythm: regular rhythm Heart Sounds: S1 normal, S2 normal and no murmurs GI Inspection: obesity Palpation: soft and no hepatosplenomegaly Auscultation: normal bowel sounds Skin General skin exam: no rashes or lesions noted Rashes: other (tatoo over left lower leg) Hair: normal Extrem General: normal to inspection, no pedal edema and no calf tenderness Psych Appearance: grossly normal Mental Status: mental status grossly normal Speech and Movement: speech and movement normal Mood: congruent mood Affect: normal affect Attitude: cooperative Thought Process: normal Thought Content: normal Insight: insight good Judgment: judgment good DS: Data Vitals/I&O Vitals and I&O: Vital Signs Temperature 36.3 C L 03/01/21 23:21 Temperature Source Temporal Artery Scan 03/01/21 23:21 Pulse 75 03/02/21 08:01 Pulse Rhythm Regular 03/02/21 08:10 Pulse 101 H 02/28/21 16:00 Respiratory Rate 18 03/01/21 23:30 Respiratory Effort 03/02/21 08:10 Respiratory Depth Normal 03/02/21 08:10 Respiratory Pattern Normal 03/02/21 08:10 Blood Pressure 121/81 03/02/21 08:01 Blood Pressure Mean 91 03/02/21 08:01 Blood Pressure Position Sitting 02/28/21 07:45 Pulse Oximetry 96 03/02/21 09:31 Oxygen Delivery Method Room Air 03/02/21 09:31 Oxygen Flow Rate 0 03/02/21 09:31 Fraction of Inspired Oxygen (FIO2) 21 03/01/21 23:30 Pain Level 0 03/01/21 23:21 Comment 03/01/21 23:21 Intake & Output 03/01/21 03/01/21 03/02/21 11:59 23:59 11:59 Intake Total 1260 / 1260 Output Total 1200 / 1200 Balance 60 / 60 Intake: IV Oral 1260 / 1260 Output: Urine 1200 / 1200 Other: Urine Color Yellow Urine Appearance Clear Urine Odor None Comment approximately 1000 mL emptied from commode, mixed with toilet paper Emptied commode for approximately 800 ml Voiding Methods Bedside Commode [facility] Medical History Abnormal ultrasound of endometrium Diabetes mellitus Dysfunctional uterine bleeding Endocervical polyp Misha's thyroiditis Hx of sleep apnea Obesity Psoriasis Vaginal pain 5 o'clock position left distal vaginal side wall. Rx with Premarin cream Surgical History History of cardiac radiofrequency ablation pt. reports ablation 20 years ago for irregular heart beat. Hx of excision of dermoid cyst pt unsure what type but on L side of neck Family History Mother Hyperlipidemia Father Myocardial infarction Grandmother Myocardial infarction Social History Smoking/Tobacco Use Status: Former Tobacco Use Quit Date: 06/17/16 Smoking risk assessment performed?: Yes Alcohol Intake: never Drug use: Never Substance use type: does not use Do you feel safe at home: Yes Do you feel safe in your relationship?: Yes History History 1 Para 1 Hx # Term Pregnancies Multiple births Hx # Pregnancies Ectopic pregnancies AB induced Hx Number of Living Children AB spontaneous
--- NOTE | 2021-03-02 17:43 | PDOC.CMDIS ---
- If Service Date Differs Date of service: 03/02/21 Time of Service: 17:43 LACE Index Scoring Tool - Questions: Length of Stay (in days): 7 - 13 Acuity (Admit via E.D.?): Yes Comorbidities: Diabetes w/o Complication E.D. Visits: 2 - Answers: Total Score: 11 Risk of Readmission: High Risk Care Management Discharge Reason for Hospitalization: Covid Pneumonia Discharge Plan: Jesika returned home today with no services. Her drove her home via private vehicle. She will follow up with her PCP and discharge plan of care. Patient/Family Education Needs: Review discharge instructions regarding activity levels and medications, discussion of self care needs including ask me three.
== END 2021-03-02 11:20 | disposition home or self-care (01) | DRG 177 ==
LOC: ER 10:45 → MS 14:22 → ICU 02-23 15:53
PROVIDERS: Student in an Organized Health Care Education/Training Program; Admitting Provider Internal Medicine; Emergency Provider Student in an Organized Health Care Education/Training Program; PCP Family Medicine; Visit Provider Internal Medicine
DX: U07.1 COVID-19 (principal); J12.82 Pneumonia due to coronavirus disease 2019; J96.01 Acute respiratory failure with hypoxia; E78.5 Hyperlipidemia, unspecified; E11.65 Type 2 diabetes mellitus with hyperglycemia; D69.6 Thrombocytopenia, unspecified; Z79.4 Long term (current) use of insulin; E06.3 Autoimmune thyroiditis; E66.9 Obesity, unspecified; L40.9 Psoriasis, unspecified; Z87.891 Personal history of nicotine dependence; Z79.84 Long term (current) use of oral hypoglycemic drugs; G47.30 Sleep apnea, unspecified; I44.1 Atrioventricular block, second degree; I49.5 Sick sinus syndrome; R55 Syncope and collapse; J01.40 Acute pansinusitis, unspecified; W22.03XA Walked into furniture, initial encounter; Y92.231 Patient bathroom in hospital as the place of occurrence of the external cause
CPT/HCPCS: 36415; 71275; 80048; 80053; 81025; 82803; 82805; 84145; 85652; 86850; 86900; 86901; 87040; 93005; 94640; 96361; 96365; 96374; 99285; J1650; 36600; 70450; 81003; 81015; 82728; 83605; 83735; 83880; 84443; 84484; 85025; 85379; 85610; 85730; 86140; 87070; 87205; 93010; 93306; 94660; 94667; 99223; 99232; 99233; 99239; J0696; J1100; J1941; J3490; J8540

== ENCOUNTER 2021-05-22 12:53 | Outpatient (REF) | payer OTHER, SELFPAY ==
--- NOTE | 2021-05-22 10:15 | PAPFT_PTH ---
PATIENT: Jesika Ryan LOC: [facility] U#:[id number] AGE/SX: 50/F ROOM: RE05/22/[address]: DEEP Gibbs : 1970 BED: DIS: 05/22/2021 SPEC #: [id number] RECD: 05/22/21 13:00 STATUS: JERED REQ #: [id number] RUBEN: 05/22/21 10:[address]: Elva Suárez DEPT: [facility] Cytology RECD BY: Josee Olguin ENTERED: 05/22/21 13:00 SP TYPE: PAPFT OTHR DR: Leonor Hendricks Tissues: 1 - CX/ENDOCX FOR PAP SMEARS Procedures: PAP THIN PREP/UVM Screening HPV DNA PROBE Comments: [id number]
== END 2021-05-22 12:54 | disposition home or self-care (01) ==
LOC: LBN 12:53
PROVIDERS: PCP Family Medicine; Visit Provider Nurse Practitioner Family
DX: Z12.4 Encounter for screening for malignant neoplasm of cervix (principal); Z11.51 Encounter for screening for human papillomavirus (HPV)
CPT/HCPCS: 88142; 87624

== ENCOUNTER 2021-05-25 02:36 | Outpatient (CLI) | payer OTHER, SELFPAY ==
[2021-05-25 17:27] LABS: Hemoglobin A1C 8.1 % (<5.7)
[2021-05-25 17:53] LABS: Vitamin D 25 Total 13.2 ng/mL (30-100)
[2021-05-25 17:58] LABS: ALT 38 U/L (14-59); AST 16 U/L (15-37); Albumin 3.9 g/dL (3.4-5.0); Alkaline Phosphatase 92 U/L (46-116); Anion Gap 11.7 mmol/L (3-11); BUN 16 mg/dL (7-18); Bilirubin, Total 0.2 mg/dL (0.2-1.0); CO2 27.3 mmol/L (21.0-32.0); CREATININE 0.7 mg/dL (0.55-1.02); Calcium 9.4 mg/dL (8.5-10.1); Chloride 100 mmol/L (98-107); Cholesterol 162 mg/dL (<200); Glucose 184 mg/dL (74-106); HDL Cholesterol 27 mg/dL (40-60); Sodium 139 mmol/L (136-145); TSH 2.79 uIU/mL (0.36-3.74); Total Protein 7.4 g/dL (6.4-8.2); Triglyceride 518 mg/dL (<150); Vitamin B12 321 pg/mL (193-986)
[2021-05-25 18:11] LABS: LDL CHOLESTEROL 65 mg/dL (<100)
== END 2021-05-25 02:37 | disposition home or self-care (01) ==
LOC: LBO 02:36
PROVIDERS: PCP Family Medicine; Visit Provider Internal Medicine Endocrinology, Diabetes & Metabolism
DX: E06.3 Autoimmune thyroiditis (principal); E78.5 Hyperlipidemia, unspecified; E11.65 Type 2 diabetes mellitus with hyperglycemia; Z79.4 Long term (current) use of insulin; E55.9 Vitamin D deficiency, unspecified
CPT/HCPCS: 36415; 80053; 80061; 82306; 83721; 82607; 83036; 84443

== ENCOUNTER 2021-06-02 07:28 | Emergency (ER) | payer OTHER, SELFPAY ==
[2021-06-02 07:33] VITALS: BP 128/84; PULSE 90; RESP 16; TEMP 36.5; O2SAT 98
--- NOTE | 2021-06-02 07:45 | DI.RAD_ITS ---
Exam(s) XR PORTABLE CHEST AP EXAM: XR PORTABLE CHEST AP CLINICAL HISTORY: cough TECHNIQUE: 2D digital imaging was performed of the chest. One image was obtained. An AP view was ob tained. COMPARISON: CR CHEST 2 VIEWS PA,LAT from 07/13/2016 FINDINGS: MEDIASTINUM: Normal. HEART: Normal. PULMONARY VASCULATURE: Normal. LUNGS: Clear. PLEURAL SPACE: No pleural effusion or pneumothorax. BONE:Within normal limits for the patient's age. OTHER FINDINGS:Normal. IMPRESSION: No acute pulmonary findings. DATA REPOSITORY: RADIATION DOSE DELIVERED:
--- NOTE | 2021-06-02 08:02 | ED.GENADUL_ITS ---
Discharge Plan Disposition Patient Disposition: HOME Condition: Stable Discharge Details Clinical Impression: Pneumonia Primary Care Provider: Leonor Hendricks ED Provider: Tomás Plata Home Meds and New Rx's Prescriptions: New amoxicillin-pot clavulanate [Augmentin] 875-125 mg tablet 1 tab PO BID Qty: 9 RF: 0 Continued metformin 1,000 mg tablet 1,000 mg PO BID RF: 0 Jardiance 25 mg tablet 25 mg PO HS RF: 0 norethindrone acetate 5 mg tablet 5 mg PO DAILY Qty: 30 RF: 12 escitalopram oxalate [Lexapro] 10 MG tablet 20 mg PO HS RF: 0 insulin lispro [Humalog KwikPen Insulin] 100 unit/mL insulin pen See Rx Instructions .ROUTE .COMPLEX RF: 0 rosuvastatin 20 mg tablet 20 mg PO QPM RF: 0 fenofibrate nanocrystallized 145 mg tablet 145 mg PO DAILY RF: 0 Basaglar KwikPen U-100 Insulin 100 unit/mL (3 mL) insulin pen 25 unit SUBCUT DAILY RF: 0 Ozempic 0.25 mg or 0.5 mg(2 mg/1.5 mL) pen injector 1 mg SUBCUT QWEEK RF: 0 Combivent Respimat 20-100 mcg/actuation Mist 1 puff inhalation QID Qty: 4 RF: 0 Discharge Instructions Instructions: Community Acquired Pneumonia (ED) Additional Instructions: Please drink plenty of fluids to stay hydrated. Allow for plenty of rest. Maintain home isolation until Covid test is negative -as result should be available within a few days. Please contact your primary care physician to arrange follow-up. Call today. Return to the ER immediately for any worsening or new concerning symptoms. Referrals: Leonor Hendricks [Primary Care Provider] - Medical Decision Making 50-year-old female here 3 months status post Covid pneumonia with progressive cough over the past 6 days. Patient saturating well no respiratory distress. She does have mild rhonchi on exam. Given risk factors and progression of cough I am concerned for potential early community-acquired pneumonia. I will initiate treatment with Augmentin given regional antibiotic sensitivity. Usual customary discharge instructions were reviewed with the patient. Medical Records Medical records reviewed: Yes I reviewed the patient's medical records. Medical records narrative: CT scan 02/25/2020 one of the chest: 1. No evidence of acute pulmonary emboli. No pleural effusions. 2. However, there are numerous bilateral non cavitated nodular and confluent infiltrates, this involving all lobes of both lungs and associated with subcarinal adenopathy and slightly enlarged hilar lymph nodes. 3. Hepatic steatosis incidentally noted. Imaging Data Radiologic Study: Imaging: X-Ray Radiologist's impression: no acute pulmonary findings HPI General Mode of arrival: ambulatory . Date/Time Provider Initiated Documentation: 06/02/21 07:34 . Limitations to Documentation: no limitations . Information obtained by: patient . HPI Narrative: 50-year-old female presents with chief complaint of cough. Patient notes that she has had a cough for the past 6 days. Initially started as dry and then progressed and is now productive of chunky yellow sputum. Cough is moderate with no modifiers. She has no associated shortness of breath. No chest pain. No fever. Patient did have COVID-19 pneumonia in February and was admitted to the ICU. She was discharged on that visit and healing well until call started 6 days ago. Related Data Home Medications Medication Instructions Recorded Confirmed escitalopram oxalate [Lexapro] 20 mg PO HS tab-cap 12/25/16 06/02/21 empagliflozin 25 mg tablet 25 mg PO HS 01/19/19 06/02/21 metformin 1,000 mg tablet 1,000 mg PO BID 01/19/19 06/02/21 Basaglar KwikPen U-100 Insulin 25 unit SUBCUT DAILY 02/23/21 06/02/21 Ozempic 1 mg SUBCUT QWEEK 02/23/21 06/02/21 fenofibrate nanocrystallized 145 mg PO DAILY 02/23/21 06/02/21 insulin lispro [Humalog KwikPen See Rx Instructions .ROUTE .COMPLEX 02/23/21 06/02/21 Insulin] rosuvastatin 20 mg PO QPM 02/23/21 06/02/21 Combivent Respimat 1 puff INHALATION QID #4 g 03/02/21 06/02/21 norethindrone acetate 5 mg tablet 5 mg PO DAILY #30 tab 05/22/21 06/02/21 amoxicillin-pot clavulanate 1 tab PO BID #9 tab 06/02/21 [Augmentin] Previous Rx's Medication Instructions Recorded Combivent Respimat 1 puff INHALATION QID #4 g 03/02/21 norethindrone acetate 5 mg tablet 5 mg PO DAILY #30 tab 05/22/21 amoxicillin-pot clavulanate 1 tab PO BID #9 tab 06/02/21 [Augmentin] Allergies Allergy/AdvReac Type Severity Reaction Status Date / Time ustekinumab [From Stelara] AdvReac Intermediate tremor Verified 06/02/21 07:37 tachycardia General Stated Complaint: RespSymp JEAN-PAUL: 3 Review of Systems All systems reviewed & are unremarkable except as noted in HPI and below Constitutional Constitutional: Denies fever(s) Respiratory Respiratory: Reports as per HPI PFSH All Active Problems (Updated 06/02/21 @ 08:41 by Tomás Plata MD) Pneumonia (Acute) Heart block atrioventricular (Acute) Respiratory failure with hypoxia (Acute) DKA (diabetic ketoacidosis) (Acute) Pansinusitis (Acute) DVT prophylaxis (Acute) Pneumonia due to COVID-19 virus (Acute) Psoriasis (Acute) Hyperlipidemia (Acute) Diabetes (Chronic) Thrombocytopenia (Chronic) Abnormal ultrasound of endometrium (Acute) Endocervical polyp (Acute) Obesity (Chronic) Dysfunctional uterine bleeding (Acute) Vaginal pain (Acute) 5 o'clock position left distal vaginal side wall. Rx with Premarin cream Medical History Diabetes mellitus Misha's thyroiditis Hx of sleep apnea Psoriasis Surgical History History of cardiac radiofrequency ablation pt. reports ablation 20 years ago for irregular heart beat. Hx of excision of dermoid cyst pt unsure what type but on L side of neck Family History Mother Hyperlipidemia Father Myocardial infarction Grandmother Myocardial infarction Social History Smoking/Tobacco Use Status: Former Tobacco Use Quit Date: 06/17/16 Smoking risk assessment performed?: Yes Alcohol Intake: never Drug use: Never Substance use type: does not use Do you feel safe at home: Yes Do you feel safe in your relationship?: Yes History History 1 Para 1 Hx # Term Pregnancies Multiple births Hx # Pregnancies Ectopic pregnancies AB induced Hx Number of Living Children AB spontaneous Exam Const General: cooperative and no acute distress HENMT Head: normocephalic Mouth: moist mucous membranes Eyes Conjunctivae: normal conjunctivae Sclera: normal sclerae Neck Neck: trachea midline Resp Effort & Inspection: normal respiratory effort, able to speak in complete sentences, cough, no respiratory distress and not tachypneic Auscultation: no rales and rhonchi Cardio Rate: regular rate and not tachycardic Rhythm: regular rhythm Neuro General: patient alert, patient awake and tone normal Extrem General: no edema Psych Appearance: grossly normal Mental Status: mental status grossly normal Speech and Movement: speech and movement normal Course Vital Signs Vital signs: Vital Signs Temperature 36.5 C 06/02/21 07:33 Pulse 90 06/02/21 07:33 Respiratory Rate 16 06/02/21 07:33 Blood Pressure 128/84 06/02/21 07:33 Pulse Oximetry 98 06/02/21 07:33 Temperature 36.5 C 06/02/21 07:33 Temperature Source Skin 06/02/21 07:33 Pulse 90 06/02/21 07:33 Respiratory Rate 16 06/02/21 07:33 Respiratory Effort 06/02/21 07:40 Respiratory Depth Normal 06/02/21 07:40 Blood Pressure 128/84 06/02/21 07:33 Blood Pressure Position Supine 06/02/21 07:33 Pulse Oximetry 98 06/02/21 07:33 Oxygen Delivery Method Room Air 06/02/21 07:33 Oxygen Flow Rate 0 06/02/21 07:33 Pain Level 0 06/02/21 07:33
[2021-06-02] MEDS: Amoxicillin 875/Clav. 125 TAB PO (08:08)
[2021-06-03 11:38] LABS: COVID-19 RT-PCR UVMMC Result Negative (Negative)
--- NOTE | 2021-06-03 17:12 | NUR.NOTE ---
notified patient of negative covid results
== END 2021-06-02 09:00 | disposition home or self-care (01) ==
PROVIDERS: Emergency Provider Student in an Organized Health Care Education/Training Program; PCP Family Medicine
DX: J18.9 Pneumonia, unspecified organism (principal); Z86.16 Personal history of COVID-19; Z20.822 Contact with and (suspected) exposure to COVID-19
CPT/HCPCS: 99284; U0003; 71045

== ENCOUNTER 2021-06-26 01:42 | Outpatient (CLI) | payer OTHER, SELFPAY ==
--- NOTE | 2021-06-26 06:30 | DI.US_ITS ---
Exam(s) US PELVIS TRANSVAGINAL EXAM: US PELVIS TRANSVAGINAL CLINICAL HISTORY: Hx abnormal bleeding and uterine polyp,Z87.42 TECHNIQUE: Transabdominal and transvaginal imaging was performed using standard protocol. COMPARISON: US US PELVIS TRANSVAGINAL from 03/28/2020 FINDINGS: KIDNEYS: Kidneys are symmetric in size. No evidence of renal calculi. No evidence of hydronephrosis. No renal mass or cyst identified. Fatty infiltration of the liver is incidentally noted. UTERUS: Anteverted. 9.9 x 4.3 x 5 2 cm. Endometrium: Not ideally imaged. 11 millimeters. No focal abnormality. Myometrium: Mildly heterogeneous. No measurable focal fibroid.. Cervix: Multiple nabothian cysts..No polyp visible. OVARIES: Right: Cyst or mass: 1.5 centimeter follicle. Left: Cyst or mass: Suboptimally visualized. 3.5 centimeter cyst. DOPPLER: Color: Symmetric and uniform flow to both ovaries. No hyperemia. Duplex: Normal ovarian arterial waveforms visualized. CUL-DE-SAC: Free fluid: None. IMPRESSION: 1. Endometrium not ideally visualized. No gross focal abnormality is seen.. 2. 3.5 centimeter left ovarian cyst. DATA REPOSITORY:
--- NOTE | 2021-06-26 06:30 | DI.MAMMO_ITS ---
Exam(s) MAMMO SCREENING EXAM: MAMMO SCREENING CLINICAL HISTORY: screening,Z12.39 TECHNIQUE: Mammograms were interpreted according to the usual protocol including computer analysis w [employer] CAD system, tomosynthesis and C-view imaging. COMPARISON: 2014 through 2019 FINDINGS: The breasts are composed of scattered fibroglandular densities, Breast Density category B. No suspicious masses or suspicious microcalcifications are seen. No skin thickening or abnormal axillary lymph nodes are seen. There has been no significant change from prior exams. IMPRESSION: BI-RADS Category 1, Negative mammogram Yearly screening mammography is recommended. Breast Density - Category B, scattered fibroglandular densities. A negative radiographic report should not delay biopsy if a dominant or clinically suspicious mass is present. Up to ten percent of cancers are not identified on mammography. A negative report may reinforce clinical impression. Adenosis and dense breasts may obscure an underlying neoplasm. False positive reports average 6 to 10%. Patient will receive a letter notifying them of these results.
== END 2021-06-26 02:02 ==
PROVIDERS: PCP Family Medicine; Visit Provider Nurse Practitioner Family
DX: Z12.31 Encounter for screening mammogram for malignant neoplasm of breast (principal); Z87.42 Personal history of other diseases of the female genital tract; N83.202 Unspecified ovarian cyst, left side
CPT/HCPCS: 77063; 77067; 76830; 76856

== ENCOUNTER 2021-09-18 04:15 | Outpatient (CLI) | payer OTHER, SELFPAY ==
[2021-09-18 11:26] LABS: Hemoglobin A1C 8.5 % (<5.7)
[2021-09-18 11:50] LABS: Cholesterol 178 mg/dL (<200); HDL Cholesterol 25 mg/dL (40-60); TSH 1.88 uIU/mL (0.36-3.74); Triglyceride 746 mg/dL (<150)
[2021-09-18 12:01] LABS: LDL CHOLESTEROL 54 mg/dL (<100)
[2021-09-18 12:03] LABS: Vitamin D 25 Total 19.7 ng/mL (30-100)
== END 2021-09-18 04:16 | disposition home or self-care (01) ==
LOC: LBO 04:15
PROVIDERS: PCP Family Medicine; Visit Provider Internal Medicine Endocrinology, Diabetes & Metabolism
DX: E06.3 Autoimmune thyroiditis (principal); E11.65 Type 2 diabetes mellitus with hyperglycemia; E78.5 Hyperlipidemia, unspecified; E78.1 Pure hyperglyceridemia; E55.9 Vitamin D deficiency, unspecified
CPT/HCPCS: 36415; 80061; 82306; 83721; 83036; 84443

== ENCOUNTER 2021-11-29 02:24 | Outpatient (CLI) | payer OTHER, SELFPAY ==
[2021-11-29 12:27] LABS: Hemoglobin A1C 8.2 % (<5.7)
[2021-11-29 12:58] LABS: Cholesterol 186 mg/dL (<200); HDL Cholesterol 27 mg/dL (40-60); TSH 3.16 uIU/mL (0.36-3.74); Triglyceride 723 mg/dL (<150)
[2021-11-29 13:20] LABS: LDL CHOLESTEROL 71 mg/dL (<100)
== END 2021-11-29 02:25 | disposition home or self-care (01) ==
LOC: LBO 02:24
PROVIDERS: PCP Family Medicine; Visit Provider Internal Medicine Endocrinology, Diabetes & Metabolism
DX: E11.65 Type 2 diabetes mellitus with hyperglycemia (principal); Z79.4 Long term (current) use of insulin; E06.3 Autoimmune thyroiditis; E78.5 Hyperlipidemia, unspecified; E55.9 Vitamin D deficiency, unspecified; E78.1 Pure hyperglyceridemia
CPT/HCPCS: 36415; 80061; 82306; 83721; 83036; 84443

== ENCOUNTER 2022-07-13 01:32 | Outpatient (CLI) | payer OTHER, SELFPAY ==
[2022-07-13 09:39] LABS: Hemoglobin A1C 8.4 % (<5.7)
[2022-07-13 10:04] LABS: Cholesterol 153 mg/dL (<200); HDL Cholesterol 31 mg/dL (40-60); TSH 2.65 uIU/mL (0.36-3.74); Triglyceride 426 mg/dL (<150)
[2022-07-13 10:19] LABS: LDL CHOLESTEROL 60 mg/dL (<100)
[2022-07-13 10:34] LABS: Vitamin D 25 Total 27.7 ng/mL (30-100)
== END 2022-07-13 01:33 | disposition home or self-care (01) ==
PROVIDERS: PCP Family Medicine; Visit Provider Internal Medicine Endocrinology, Diabetes & Metabolism
DX: E11.65 Type 2 diabetes mellitus with hyperglycemia (principal); E06.3 Autoimmune thyroiditis; E78.5 Hyperlipidemia, unspecified; E55.9 Vitamin D deficiency, unspecified; E78.1 Pure hyperglyceridemia
CPT/HCPCS: 36415; 80061; 82306; 83721; 83036; 84443

== ENCOUNTER 2022-08-15 01:28 | Outpatient (CLI) | payer OTHER, SELFPAY ==
--- NOTE | 2022-08-15 15:45 | DI.MAMMO_ITS ---
Exam(s) MAMMO SCREENING EXAM: MAMMO SCREENING CLINICAL HISTORY: screening TECHNIQUE: Bilateral full field digital CC and MLO mammographic images were obtained with 3D tomosyn thesis and utilizing computer aided detection (CAD). COMPARISON: Available for comparison. FINDINGS: Masses/Architectural Distortion: None seen. Microcalcifications: No suspicious pleomorphic-type are seen. Skin Thickening/Nipple Retraction: None. IMPRESSION: 1. No significant interval change with no specific features of malignancy noted. 2. Unless there is more urgent need, screening mammography is recommended, as per [place] guidelines. BI-RADS Category 1 - Negative Breast Density - Category B - Scattered areas of fibroglandular density Breast density category C or D implies that the patient has dense breast tissue. Dense breast tissue is very common and is not abnormal but dense breast tissue can make it harder to find cancer on a ma mmogram. Also, dense breast tissue may increase their breast cancer risk. This information about the result of the mammogram report was provided to the patient to raise their awareness. Use this report when you speak with the patient about their risks for breast cancer, which includes their family hist ory. At that time, you may recommend for more screening tests (Ultrasound or MRI) as they might be us eful based on their risk. A negative radiographic report should not delay biopsy if a dominant or clinically suspicious mass is present. Up to ten percent of cancers are not identified on mammography. A negative report may reinforce clinical impression. Adenosis and dense breasts may obscure an underlying neoplasm. False positive reports average 6 to 10%. Patient will receive a letter notifying them of these results.
== END 2022-08-15 01:48 ==
PROVIDERS: PCP Family Medicine; Visit Provider Obstetrics & Gynecology
DX: Z12.31 Encounter for screening mammogram for malignant neoplasm of breast (principal)
CPT/HCPCS: 77063; 77067

== ENCOUNTER 2023-01-18 01:55 | Outpatient (CLI) | payer OTHER, SELFPAY ==
[2023-01-18 12:51] LABS: Cholesterol 152 mg/dL (<200); HDL Cholesterol 29 mg/dL (40-60); Triglyceride 446 mg/dL (<150)
[2023-01-18 12:53] LABS: Hemoglobin A1C 7.5 % (<5.7)
[2023-01-18 13:09] LABS: Vitamin D 25 Total 31.5 ng/mL (30-100)
[2023-01-18 13:11] LABS: LDL CHOLESTEROL 62 mg/dL (<100)
== END 2023-01-18 01:56 | disposition home or self-care (01) ==
LOC: LOS 01:55
PROVIDERS: PCP Family Medicine; Visit Provider Internal Medicine Endocrinology, Diabetes & Metabolism
DX: E06.3 Autoimmune thyroiditis (principal); E55.9 Vitamin D deficiency, unspecified; E11.65 Type 2 diabetes mellitus with hyperglycemia
CPT/HCPCS: 80061; 82306; 83721; 83036

== ENCOUNTER 2023-05-24 01:42 | Outpatient (CLI) | payer OTHER, SELFPAY ==
[2023-05-24 12:28] LABS: Hemoglobin A1C 7.4 % (<5.7)
[2023-05-24 12:38] LABS: Cholesterol 207 mg/dL (<200); HDL Cholesterol 32 mg/dL (40-60); TSH 2.92 uIU/mL (0.36-3.74); Triglyceride 614 mg/dL (<150)
[2023-05-24 12:54] LABS: Vitamin D 25 Total 24.1 ng/mL (30-100)
[2023-05-24 13:02] LABS: LDL CHOLESTEROL 77 mg/dL (<100)
== END 2023-05-24 01:43 | disposition home or self-care (01) ==
LOC: LOS 01:42
PROVIDERS: PCP Family Medicine; Visit Provider Internal Medicine Endocrinology, Diabetes & Metabolism
DX: E06.3 Autoimmune thyroiditis (principal); E55.9 Vitamin D deficiency, unspecified
CPT/HCPCS: 36415; 80061; 82306; 83721; 83036; 84443

== ENCOUNTER 2023-07-05 07:53 | Day surgery (SDC) | payer OTHER, SELFPAY ==
--- NOTE | 2023-07-01 15:53 | W.PM.DSUDISC ---
Discharge Plan Disposition Patient Disposition: Home Discharge Details Attending Provider: Ana Bergeron Primary Care Provider: Leonor Hendricks Home Meds and New Rx's Prescriptions: No Action metformin 1,000 mg tablet 1,000 mg PO BID Jardiance 25 mg tablet 25 mg PO HS norethindrone acetate 5 mg tablet 5 mg PO DAILY Qty: 30 12RF bisacodyl [Dulcolax (bisacodyl)] 5 mg tablet,delayed release (DR/EC) 5 mg PO ONCE Qty: 4 0RF Rx Instructions: Take per colonoscopy instructions provided by ordering providers office polyethylene glycol 3350 17 gram/dose powder 17 g PO ONCE Qty: 238 0RF Rx Instructions: Take per colonoscopy instructions provided by ordering providers office insulin degludec [Tresiba FlexTouch U-100] 100 unit/mL (3 mL) insulin pen 0.2 - 25 unit subcut DAILY escitalopram oxalate [Lexapro] 10 MG tablet 20 mg PO HS Tremfya 100 mg/mL syringe 100 mg subcut Q8W insulin lispro [Humalog KwikPen Insulin] 100 unit/mL insulin pen See Rx Instructions .ROUTE .COMPLEX Patient Comments: INJECT 7 15 UNITS SUBCUTANEOUSLY BEFORE MEALS 5 UNITS PRANDIAL PLUS 2 10 UNITS CORRECTION PER SLIDING SCALE Rx Instructions: INJECT 7 15 UNITS SUBCUTANEOUSLY BEFORE MEALS 5 UNITS PRANDIAL PLUS 2 10 UNITS CORRECTION PER SLIDING SCALE rosuvastatin 20 mg tablet 20 mg PO QPM Patient Comments: TAKE ONE TABLET BY MOUTH EVERY DAY IN THE EVENING fenofibrate nanocrystallized 145 mg tablet 145 mg PO DAILY Patient Comments: TAKE ONE TABLET BY MOUTH EVERY DAY insulin glargine [Basaglar KwikPen U-100 Insulin] 100 unit/mL (3 mL) insulin pen 25 unit SUBCUT DAILY Patient Comments: INJECT 25 UNITS SUBCUTANEOUSLY DAILY Discharge Orders Discharge Orders: Discharge Order (Routine); Ordered 07/05/23 Ordered By: Ana Bergeron DS: Diagnosis Discharge Diagnosis (1) Premenstrual dysphoric syndrome: Status: Acute (2) Obstructive sleep apnea: Status: Chronic (3) Heart block atrioventricular: Status: Acute (4) Psoriasis: Status: Acute
--- NOTE | 2023-07-04 10:24 | W.COLOREPORT ---
Date of service: 07/05/23 Time of Service: 09:31 Colonoscopy Report Date of procedure: 07/05/23 Pre-op diagnosis general: crc screening Post-op diagnosis procedure note: other (normal) Surgeon: Ana Bergeron Anesthesia Type: General:No Airway Estimated blood loss (mL): 0 Pathology: none sent Complications: None Disposition: same day Prep: Miralax/Dulcolax Retraction Time: 10 Procedure Description: After informed consent was obtained the patient was taken to the procedure room and placed in a left decubitous position. Monitors were applied and a time out was done. The patients name, date of , procedure, allergies to medications and metal in their body was reviewed. The patient was then sedated. Once sedated and comfortable a rectal exam was done. External exam was normal. Internal exam revealed a normal sphincter tone and no palpable masses. The scope was then introduced and retrofelexed. No internal hemorrhoids were identified. The scope was then advanced to the cecum without difficulty. The TI and appendiceal orifice were identified. The prep was BBPS 3 in all segments for a total of 9. The scope was then slowly retracted over 10 minutes back into the rectum. There are no polyps/AVM/diverticula visualized today. The mucosa is pink and healthy with a normal vascular pattern. The scope was removed and the patient was woken up and taken back to Same day surgery in stable condition. The patient tolerated the procedure well and there were no immediate complications. Follow up: The patient should follow up in 10 years unless they develop changes in bowel habits or other new gastrointestinal complaints.
--- NOTE | 2023-07-04 10:25 | PDOC.DSDIS_ITS ---
Date of service: 07/05/23 Time of Service: 09:32 Discharge Plan Disposition Patient Disposition: Home Condition: Good Discharge Details Reason For Visit: Colon cancer screening Attending Provider: Ana Bergeron Primary Care Provider: Leonor Hendricks Home Meds and New Rx's Prescriptions: Continued metformin 1,000 mg tablet 1,000 mg PO BID Jardiance 25 mg tablet 25 mg PO HS norethindrone acetate 5 mg tablet 5 mg PO DAILY Qty: 30 12RF insulin degludec [Tresiba FlexTouch U-100] 100 unit/mL (3 mL) insulin pen 0.2 - 25 unit subcut DAILY escitalopram oxalate [Lexapro] 10 MG tablet 20 mg PO HS Tremfya 100 mg/mL syringe 100 mg subcut Q8W Patient Comments: 10 weeks ago insulin lispro [Humalog KwikPen Insulin] 100 unit/mL insulin pen See Rx Instructions .ROUTE .COMPLEX Patient Comments: INJECT 7 15 UNITS SUBCUTANEOUSLY BEFORE MEALS 5 UNITS PRANDIAL PLUS 2 10 UNITS CORRECTION PER SLIDING SCALE Rx Instructions: INJECT 7 15 UNITS SUBCUTANEOUSLY BEFORE MEALS 5 UNITS PRANDIAL PLUS 2 10 UNITS CORRECTION PER SLIDING SCALE rosuvastatin 20 mg tablet 20 mg PO QPM Patient Comments: TAKE ONE TABLET BY MOUTH EVERY DAY IN THE EVENING fenofibrate nanocrystallized 145 mg tablet 145 mg PO DAILY Patient Comments: TAKE ONE TABLET BY MOUTH EVERY DAY insulin glargine [Basaglar KwikPen U-100 Insulin] 100 unit/mL (3 mL) insulin pen 25 unit SUBCUT DAILY Patient Comments: INJECT 25 UNITS SUBCUTANEOUSLY DAILY Discontinued bisacodyl [Dulcolax (bisacodyl)] 5 mg tablet,delayed release (DR/EC) 5 mg PO ONCE Qty: 4 0RF Rx Instructions: Take per colonoscopy instructions provided by ordering providers office polyethylene glycol 3350 17 gram/dose powder 17 g PO ONCE Qty: 238 0RF Rx Instructions: Take per colonoscopy instructions provided by ordering providers office Discharge Instructions Additional Instructions: DSU Colonoscopy Post- Op Instructions Instructions for Everyone who is given Anesthesia: For your safety, please do the following for the next twenty-four (24) hours: *Do Not operate a motor vehicle (car, truck, motorcycle, etc.) *Do Not drink alcoholic beverages or use any recreational drugs for the first 24 hours or while taking pain medications. The medications in your body may have a reaction that can be dangerous. *Do Not make any important decisions or sign any important papers. Findings: Normal Follow up: Repeat in 10 years time. Of course, you should continue to have a yearly physical exam including a rectal exam. If you should ever notice any pain or difficulty having a bowel movement, blood in the stool, unexplained weight loss, or change in your bowel habits, please contact your health provider. 1. No lifting over 20 pounds or strenuous activity for the first 24 hours after your procedure. After 24 hours there are no restrictions on your activity but you may feel fatigued for a few days. 2. After you arrive home you may have a light meal and return to your normal diet as you can tolerate it without feeling sick to your stomach. 3. You may have a bloated, gaseous feeling in your belly (abdomen) after a colonoscopy. Passing gas and belching will help. Walking or lying down on your left side with your knees flexed may relieve the discomfort. Call the office at [phone] (Office) or [phone] (Hospital) right away if you notice any of the following: a.Vomiting of blood or ?coffee ground stools?. b.Rectal bleeding 1Tbsp, blood clots or continuous bleeding. c.Severe belly (abdominal) pain. d.A hard distended belly (abdomen) and an inability to pass gas. 4. Please don?t expect to have a normal BM (bowel movement) for 2-3 days after your procedure. 5. If there are questions regarding the findings of your procedure, please contact your doctor 6. If you are unable to contact your doctor with a problem, contact the hospital at [phone]. 7. Continue all your regular medications unless directed otherwise. I understand the above instructions and have no questions. Signature of Patient or Adult Escort Name of Responsible Adult Escort Signature of Nurse Date/Time Activity:: See above Diet:: Carb Counting Discharge Orders Discharge Orders: Discharge Order (Routine); Ordered 07/05/23 Ordered By: Ana Bergeron DS: Diagnosis Discharge Diagnosis (1) Premenstrual dysphoric syndrome: Status: Acute (2) Obstructive sleep apnea: Status: Chronic (3) Heart block atrioventricular: Status: Acute (4) Psoriasis: Status: Acute (5) Screening for malignant neoplasm of colon performed: Status: Acute Asessment and Plan: The patient is seen and examined after their colonoscopy.? The patient has been able to pass gas.? They are not having abdominal pain.? They have been able to tolerate liquids and a snack.? They do not have any nausea or vomiting.? They are not having any chest pain or shortness of breath.??? They are not having any rectal bleeding. Their vital signs have been stable-see nursing notes. We discussed findings during their colonoscopy, and any biopsies that were do ne/polyps that were removed. The patient will be sent a letter with any biopsy results, and when to repeat the colonoscopy.-see discharge instructions. Patient was given explicit instructions to follow-up regarding colonoscopy-refer to discharge instructions.? We reviewed resumption of medications. Patient verbalized understanding and discharged in stable and satisfactory condition- See nursing notes. (6) Diabetes: Status: Chronic (7) Thrombocytopenia: Status: Chronic (8) Obesity: Status: Chronic
[2023-07-05 08:13] VITALS: BP 120/80; PULSE 93; RESP 16; TEMP 36.5; O2SAT 97
[2023-07-05] MEDS: Lactated Ringers 1,000 ML 80 ML IV (08:18)
--- NOTE | 2023-07-05 08:31 | ANES.PREOP_ITS ---
General Info Date of Service Date Performed: 07/05/23 Height: 5 ft 3 in Weight: 100.698 kg Body Mass Index (BMI): 39.3 Surgical Procedure: Operation Date: 07/05/23 09:05 Proposed Procedure Side Surgeon bry Bergeron, Meds Allergies and Home Medications Allergies Allergy/AdvReac Type Severity Reaction Status Date / Time [facility] AdvReac Intermediate tremor Verified 07/05/23 08:11 tachycardia Taltz AdvReac Unknown Uncoded 07/05/23 08:11 Home Medication Medication Instructions Recorded escitalopram oxalate 10 mg tablet 20 mg PO HS 12/25/16 (Lexapro) empagliflozin 25 mg tablet 25 mg PO HS 01/19/19 (Jardiance) metformin 1,000 mg tablet 1,000 mg PO BID 01/19/19 fenofibrate nanocrystallized 145 145 mg PO DAILY 02/23/21 mg tablet insulin glargine 100 unit/mL (3 25 unit subcut DAILY 02/23/21 mL) subcutaneous pen (Basaglar KwikPen U-100 Insulin) insulin lispro 100 unit/mL See Rx Instructions .Route .COMPLEX 02/23/21 subcutaneous pen (Humalog KwikPen (U-100) Insulin) rosuvastatin 20 mg tablet 20 mg PO QPM 02/23/21 norethindrone acetate 5 mg tablet 5 mg PO DAILY #30 tabs 07/30/22 guselkumab 100 mg/mL subcutaneous 100 mg subcut Q8W 12/27/22 syringe (Tremfya) insulin degludec 100 unit/mL (3 0.2 - 25 unit subcut DAILY 06/20/23 mL) subcutaneous pen (Tresiba FlexTouch U-100 insulin) Current Visit Medications: Current Medications Generic Name Dose Route Start Last Admin Trade Name Freq PRN Reason Stop Dose Admin Hyoscyamine Sulfate 0.125 mg 07/05/23 03:39 Hyoscyamine 0.125 Mg Sl/Oral/Chew SL 08/04/23 03:38 DIRECTED PRN Ringer's Solution 1,000 mls @ 80 mls/hr 07/05/23 06:00 07/05/23 08:18 IV 07/05/23 23:59 80 mls/hr INFUSION ANT Administration IV Miscellaneous Supplies 1 each 07/05/23 06:00 Iv Access IV 07/05/23 23:59 DIRECTED ANT Ondansetron HCl 4 mg 07/05/23 03:39 Ondansetron 4 Mg/2 Ml Vial IVP 08/04/23 03:38 Q4H PRN PRN Nausea / Vomiting Sodium Chloride 0 ml 07/05/23 06:00 Normal Saline Flush 10 Ml Syr IV 07/05/23 23:59 PRN PRN Sodium Chloride 0 ml 07/05/23 06:00 Normal Saline 10 Ml Vial IJ 07/05/23 23:59 DIRECTED PRN Sterile Water 0 ml 07/05/23 06:00 Water,Injection,Sterile 10 Ml Vial IJ 07/05/23 23:59 DIRECTED PRN PFSH Active Problems Active Problems: Problem Status Onset Code Screening for malignant neoplasm of colon performed Z12.11 Anxiety F41.9 Premenstrual dysphoric syndrome F32.81 Obstructive sleep apnea G47.33 Ganglion cyst M67.40 Dyslipidemia E78.5 Right ovarian cyst N83.201 Heart block atrioventricular I44.30 Pansinusitis J32.4 Pneumonia due to COVID-19 virus U07.1, J12.82 Psoriasis L40.9 Hyperlipidemia E78.5 Diabetes E11.9 Thrombocytopenia D69.6 Obesity E66.9 Dysfunctional uterine bleeding N93.8 Medical History Medical History Diabetes mellitus DKA (diabetic ketoacidosis) Misha's thyroiditis Hx of sleep apnea Pneumonia Psoriasis Respiratory failure with hypoxia Surgical History Surgical History History of cardiac radiofrequency ablation pt. reports ablation 20 years ago for irregular heart beat. Hx of excision of dermoid cyst pt unsure what type but on L side of neck Tobacco Smoking/Tobacco Use Status: Former Tobacco Use Alcohol Alcohol Intake: never Substance Use Substance use: Never Substance use type: does not use Prental History History 1 Para 1 Hx # Term Pregnancies Multiple births Hx # Pregnancies Ectopic pregnancies AB induced Hx Number of Living Children AB spontaneous Vital Signs and Lab Results Vital Signs Most Recent Vital Signs in EMR: Most Recent Vital Signs Temp Pulse Resp BP Pulse Ox 36.5 C 93 H 16 120/80 97 07/05/23 08:13 07/05/23 08:13 07/05/23 08:13 07/05/23 08:13 07/05/23 08:13 Point of Care Results Point of Care Results: POC- Test(urine) Negative 07/05/23 08:20 Lab Results Blood Type / Crossmatch: No Data to Display Complete Blood Count: No Data to Display Complete Metabolic Panel: No Data to Display Liver Function Panel: No Data to Display Coagulation Panel: No Data to Display Cardiac Panel: No Data to Display Arterial Blood Gas: No Data to Display Venous Blood Gas: No Data to Display Pancreas Panel: No Data to Display Thyroid Panel: No Data to Display Infectious Disease: No Data to Display Blood Cultures: No Data to Display Toxicology Panel: No Data to Display Panel: No Data to Display Imaging and Studies Imaging and Studies Study information below may be from another EMR and interpreted by another provider. Please see original notes in EMR for more complete details. EKG Summary: DATE/TIME OF SERVICE: 02/24/21820 : 1970 PERFORMING LOCATION: ICU APPROVED REPORT Exam: Resting ECG Reason for Exam: pause Patient Location: I HR:109 bpm ECG Measurements Heart Rate 109 AXIS ME 184 P 64 QRSd 89 QRS 80 QT 336 T28 QTc 452 Conclusion Sinus tachycardia...rate> 99 Low voltage, extremity leads...all extremity leads <0.5mV Echocardiogram Summary: Date of Exam: 02/24/21 Sex: F Admission Date: 02/22/21 : 1970 Age: 50 APPROVED REPORT EXAM: Comprehensive 2D, Doppler, and color-flow Echocardiogram Patient Location: In-Patient Room/Bed: [id number] X Ray Equipment Tester: Abida Cortez RDCS (AE) Indications: Syncope Other Information Study Quality: Fair. Technically limited study due to body habitus, inability to position patient. Conclusion Normal left ventricular wall thickness. The LV is small and hypercontractile. Estimated ejection fraction is 65 to 70%. Wall motion is normal Normal right ventricular size and systolic function Both atria are normal in size There is no structural or hemodynamically significant valvular disease Anesthesia Assessment and Plan Anesthesia History Personal History: No History of Anesthesia Complications Family History: No Family History of Anesthesia Complications Exercise Tolerance Exercise Tolerance: Metabolic Equivalents>4 Pertinent Negatives Pertinent Negatives: No Symptoms of GERD Cardiac & Pulmonary Exam Cardiac Exam: Normal S1/S2 Heart Sounds Pulmonary Exam: Clear Bilateral Breath Sounds Implantable Cardiac Device Does patient have a Pacemaker or an ICD?: No Airway Exam Known Difficult Airway: No Mallampati Class: 1 Mouth Opening: Normal (> 3cm) Thyromental Distance: Greater than 3 cm Neck Range of Motion: Full ROM Neck Circumference: Normal Teeth Condition: Normal Dentition ASA Classification ASA Score: ASA 2 Emergency Case?: No NPO Status NPO Status: NPO Clears >2 hours, Solids >8 hours Status Status: Negative HCG Anesthesia Plan Resuscitation Status: Full Code Anesthesia Technique: General Anesthesia Airway Planned: Natural Airway Monitors Used: Standard Monitors
[2023-07-05 08:33] VITALS: BMI 39.3
[2023-07-05 09:30] VITALS: BP 104/72; PULSE 86; RESP 16; TEMP 36.4; O2SAT 93
--- NOTE | 2023-07-05 09:42 | W.ANESPOSTOP ---
Postoperative Evaluation Date, Time and Location Date Performed: 07/05/23 Time Performed: 09:42 Patient Location: Day Surgery Unit Vital Signs Most Recent Imported Vital Signs: Most Recent Vital Signs Temp Pulse Resp BP Pulse Ox 36.4 C L 86 16 104/72 93 07/05/23 09:30 07/05/23 09:30 07/05/23 09:30 07/05/23 09:30 07/05/23 09:30 Pain Score Most Recent Pain Score: Most Recent Pain Score Pain Level 0 07/05/23 09:30 Assessment Mental Status: Awake (Alert & Oriented to Patient Baseline) Airway and Respiratory Function: Patent airway with normal (patient baseline) respiratory exam Cardiovascular Function: Hemodynamically Stable Hydration Status: Adequately Hydrated Nausea & Vomiting: No Nausea or Vomiting Pain: Pt. Denies Any Pain Peripheral Nerve Block: Patient did not receive a nerve block
[2023-07-05 10:00] VITALS: BP 110/72; PULSE 85; RESP 18; TEMP 36.9; O2SAT 96
--- NOTE | 2023-07-05 10:30 | W.ANESPOSTOP ---
Postoperative Evaluation Date, Time and Location Date Performed: 07/05/23 Time Performed: 10:30 Patient Location: Day Surgery Unit Vital Signs Most Recent Imported Vital Signs: Most Recent Vital Signs Temp Pulse Resp BP Pulse Ox 36.9 C 85 18 110/72 96 07/05/23 10:00 07/05/23 10:00 07/05/23 10:00 07/05/23 10:00 07/05/23 10:00 Most Recent Vital Signs Temp Pulse Resp BP Pulse Ox 36.4 C L 86 16 104/72 93 07/05/23 09:30 07/05/23 09:30 07/05/23 09:30 07/05/23 09:30 07/05/23 09:30 Pain Score Most Recent Pain Score: Most Recent Pain Score Pain Level 0 07/05/23 10:00 Assessment Mental Status: Awake (Alert & Oriented to Patient Baseline) Airway and Respiratory Function: Patent airway with normal (patient baseline) respiratory exam Cardiovascular Function: Hemodynamically Stable Hydration Status: Adequately Hydrated Nausea & Vomiting: No Nausea or Vomiting Pain: Pt. Denies Any Pain Peripheral Nerve Block: Patient did not receive a nerve block
== END 2023-07-05 10:20 | disposition home or self-care (01) ==
LOC: SUR 07:53
PROVIDERS: PCP Family Medicine; Visit Provider Surgery
PROC: 0DJD8ZZ Inspection of Lower Intestinal Tract, Via Natural or Artificial Opening Endoscopic (ICD-10-PCS; CPT 45378; principal; 2023-07-05 09:00)
DX: Z12.11 Encounter for screening for malignant neoplasm of colon; G47.33 Obstructive sleep apnea (adult) (pediatric); E11.9 Type 2 diabetes mellitus without complications; E66.9 Obesity, unspecified; I44.30 Unspecified atrioventricular block
CPT/HCPCS: 45378; 81025; J2704

== ENCOUNTER 2023-09-09 05:07 | Outpatient (CLI) | payer OTHER, SELFPAY ==
[2023-09-09 11:23] LABS: Calculated LDL 54 mg/dL (<100); Cholesterol 162 mg/dL (<200); HDL Cholesterol 34 mg/dL (40-60); Triglyceride 370 mg/dL (<150)
[2023-09-09 11:26] LABS: Hemoglobin A1C 7.8 % (<5.7)
[2023-09-09 11:36] LABS: Vitamin D 25 Total 39.5 ng/mL (30-100)
== END 2023-09-09 05:08 | disposition home or self-care (01) ==
LOC: LOS 05:07
PROVIDERS: PCP Family Medicine; Visit Provider Internal Medicine Endocrinology, Diabetes & Metabolism
DX: E11.65 Type 2 diabetes mellitus with hyperglycemia (principal); E55.9 Vitamin D deficiency, unspecified; E78.1 Pure hyperglyceridemia
CPT/HCPCS: 36415; 80061; 82306; 83036; 84443

== ENCOUNTER 2023-12-10 03:22 | Outpatient (CLI) | payer OTHER, SELFPAY ==
[2023-12-10 13:28] LABS: Cholesterol 149 mg/dL (<200); HDL Cholesterol 31 mg/dL (40-60); Triglyceride 440 mg/dL (<150); Vitamin D 25 Total 33.3 ng/mL (30-100)
[2023-12-10 13:44] LABS: LDL CHOLESTEROL 52 mg/dL (<100)
== END 2023-12-10 03:23 | disposition home or self-care (01) ==
LOC: LOS 03:22
PROVIDERS: PCP Family Medicine; Visit Provider Internal Medicine Endocrinology, Diabetes & Metabolism
DX: E11.65 Type 2 diabetes mellitus with hyperglycemia (principal); E06.3 Autoimmune thyroiditis; E55.9 Vitamin D deficiency, unspecified; E78.1 Pure hyperglyceridemia
CPT/HCPCS: 36415; 80061; 82306; 83721; 83036; 84443

== ENCOUNTER 2024-02-04 01:21 | Outpatient (CLI) | payer OTHER, SELFPAY ==
--- OUTSIDE RECORDS SUMMARY | 2024-02-04 01:23 | XMS_ITS | Encounter Summary ---
[place] [address] Care Team Providers Care Lighting Engineering Technician Name Role Phone Leonor Hendricks MD Primary Care Provider [phone] Encounter Details Date Type Department Care Team (Late st Contact Info) Description 2022 Refill Dermatology at [address] [place] [address] Roxana Hays, RN Social History Tobacco Use Types Packs/Day Years Used Date Smoking Tobacco: Former Cigarettes Q uit: 03/21/2015 Smokeless Tobacco: Never Alcohol Use Standard Drinks/Week Comments No 0 (1 standard drink = 0.6 oz pur e alcohol) Sex and Gender Information Value Date Recorded Sex Assigned at Not on file Gender Identity Not on file Sexual Orientation Not on file documented as of this encounter Plan of Treatment Not on file documented as of this encounter Visit Diagnoses Not on filedocumented in this encounter Care Teams Lighting Engineering Technician Relationship Specialty Start Date End Date Leonor Hendricks MD [address] [place] [address] PCP - General Family Medicine 11/27/16 documented as of this encounter
--- OUTSIDE RECORDS SUMMARY | 2024-02-04 01:23 | XMS_ITS | Encounter Summary ---
Author Organization [facility] [place] [address] Care Team Providers Care Prevention Specialist Name Role Phone Leonor Hendricks MD Primary Care Provider [phone] Reason for Visit * Reason Comments Medication Refill Encounter Details Date Type Department Care Team (Late st Contact Info) Description 11/25/2023 [place] [address] Darnell Mosquera MD [facility] [place] [address] Social History Tobacco Use Types Packs/Day Years [...] on filedocumented in this encounter Care Teams Prevention Specialist Relationship Specialty Start Date End Date Leonor Hendricks MD [address] [place], [place] [address] PCP - General Family Medicine 11/27/16 documented as of this encounter
--- OUTSIDE RECORDS SUMMARY | 2024-02-04 01:23 | XMS_ITS | Encounter Summary ---
Author Organization [facility] Address [address] [place] [address] Care Team Providers Care Recordist Chief Name Role Phone Leonor Hendricks MD Primary Care Provider [phone] Toni Aguero MD Unavailable Encounter Details Date Type Department Care Team (Late st Contact Info) Description 05/24/2021 Lab Requisition [facility] Pathology & Laboratory Medicine - [address] [address] [address] [place] [address] Encounter for other general examination Social History Tobacco Use Types Packs/Day Years Used Date Smoking Tobacco: Never Assessed Sex and Gender Information Value Date Recorded Sex Assigned at Not on file Gender Identity Not on file Sexual Orientation Not on file documented as of this encounter Plan of Treatment Not on file documented as of this encounter Procedures Procedure Name Priority Date/Time Associated Diagnosis Comments PAP TEST Today 05/22/2021 10:15 EST Encounter for other general examination HPV DNA DETECTION WITH GENOTYPING, PCR Today 05/22/2021 10:15 EST Encounter for other general examination documented in this encounter Results * HUMAN PAPILLOMAVIRUS (HPV) DETECTION-HIGH RISK TYPES (05/22/2021 10:15 EST) HPV other High Risk types, PCR Negative Negative 05/31/2021 8:42 [facility] Comment:No E6 or E7 mRNA is detected from HPV types 16,18,31,33,35,39,45,51,52,56,58,59,66, and 68 by ui programmer mediated amplification. Papanicolaou smear specimen (specimen) CERVIX UTERI STRUCTURE / Unknown 05/22/2021 10:15 EST 05/29/2021 15:17 EST Elva Suárez [employer] MERCHANDISING MICROBIOLOGY - GENER AL ORDERABLES [facility] [address] [place] [address] * PAP TEST (05/22/2021 10:15 EST) Specimens A. Cervix and/or Endocervix , ThinPrep Imaging System with Manual Evaluation 05/31/2021 8:42 [facility] Specimen Adequacy Satisfactory for Evaluation - transformation zone component present 05/31/2021 8:42 [facility] General Categorization Negative for intraepithelial lesion or malignancy 05/31/2021 8:42 [facility] Attestation . 05/31/2021 8:42 [facility] at 0842 Clinical History See below 05/31/20 8:42 [facility] HPV The result for the Human Papillomavirus (HPV) Detection-High Risk Types is Negative. No E6 or E7 mRNA is detected from HPV types 16,18,31,33,35,39 ,45,51,52,56,58,5 9,66, and 68 by ui programmer mediated amplification.Chastity ting was performed on specimen [id number] and was resulted on 05/31/2021 0838 EST by CECILLE, LAB INSTRUMENT RESULTS IN 05/31/2021 8:42 [facility] Performing Lab [facility] 05/31/2021 8:42 [facility] Scanned Images 05/31/2021 8:42 [facility] Papanicolaou smear specimen (specimen) CERVIX UTERI STRUCTURE / Unknown 05/22/2021 10:15 EST 05/24/2021 9:28 EST Elva Suárez [employer] MERCHANDISING PATHOLOGY ORDERABLES [facility] [address] [place] [address] documented in this encounter Visit Diagnoses Diagnosis Encounter for other general examination documented in this encounter Care Teams Recordist Chief Relationship Specialty Start Date End Date Leonor Hendricks MD [address] [place] [id number] PCP - General 06/30/20 Toni Aguero MD [address] [place] [address] 09/27/17 documented as of this encounter
--- OUTSIDE RECORDS SUMMARY | 2024-02-04 01:23 | XMS_ITS | Encounter Summary ---
Author Organization [facility] Address [address] [place] [address] Care Team Providers Care Farm Assistant Name Role Phone Leonor Hendricks MD Primary Care Provider [phone] Toni Aguero MD Unavailable Encounter Details Date Type Department Care Team (Late st Contact Info) Description 02/16/2021 Lab Requisition [facility] Pathology & Laboratory Medicine - [facility] [address] [place] [address] Outr Resulting Lab, Provider Social History Tobacco Use Types Packs/Day Years Used Date Smoking Tobacco: Never Assessed Sex and Gender Information Value Date Recorded Sex Assigned at Not on file Gender Identity Not on file Sexual Orientation Not on file documented as of this encounter Plan of Treatment Not on file documented as of this encounter Procedures Procedure Name Priority Date/Time Associated Diagnosis Comments ZZCOVID-19 TEST [facility] PCR Today 02/16/2021 11:30 EDT COVID-19 TESTING Routine 02/16/2021 11:3 0 EDT documented in this encounter Results * COVID-19 TEST [facility] PCR (02/16/2021 11:30 EDT) Swab ENTIRE NASOPHARYNX / Unknown 02/16/2021 11:30 EDT 02/16/2021 21:36 EDT Provider Outr Resulting Lab MICROBIOLOGY - GENERAL ORDERABLES [facility] [address] [place] [address] * (ABNORMAL) COVID-19 TESTING (02/16/2021 11:30 EDT) COVID-19 rt-PCR Result Positive( AA) Negative 02/17/2021 17:10 EDT [facility] Comment: This test has not been FDA cleared or approved. This test has been authorized by FDA under an EUA for use by authorized laboratories. This test has been authorized only for detection of nucleic acid from 2019-nCoV, not for any other viruses or pathogens. This test is only authorized for the duration of the declaration that circumstances exist justifying the authorization of emergency use of in vitro diagnostic tests for detection and/or diagnosis of 2019-nCoV under section 564(b)(1) of Act, 21 U.S.C ?? 360bbb-3(b) (1), unless the authorization is terminated or revoked sooner. Testing was performed using the khari SARS-CoV-2 assay ([employer] on the Khari 6800 System Performing Lab Khari [address] [facility] 02/17/2021 17:10 EDT [facility] Swab 02/16/2021 11:3 0 EDT 02/16/2021 21:36 EDT Provider Outr Resulting Lab MICROBIOLOGY - GENERAL ORDERABLES [facility] [address] [place] [address] documented in this encounter Visit Diagnoses Not on filedocumented in this encounter Additional Health Concerns Infection Onset Date Last Indicated Resolved Time COVID-19 02/16/2021 02/16/2021 03/18/2021 22:1 5 EDT documented as of this encounter Care Teams Farm Assistant Relationship Specialty Start Date End Date Leonor Hendricks MD [address] [place] [address] PCP - General 06/30/20 Toni Aguero MD [address] [place] [address] 09/27/17 documented as of this encounter
--- OUTSIDE RECORDS SUMMARY | 2024-02-04 01:23 | XMS_ITS | Encounter Summary ---
Author Organization [facility] Address [address] [place] [address] Care Team Providers Care Floor Runner Name Role Phone Unavailable Primary Care Provider Unavailabl e Encounter Details Date Type Department Care Team (Late st Contact Info) Description 10/21/2002 Results Only [facility] - Maple conversion [address] [place] [address] Antonieta Cedeno, NATALIE Social History Tobacco Use Types Packs/Day Years Used Date Smoking Tobacco: Never Assessed Sex and Gender Information Value Date Recorded Sex Assigned at Not on file Gender Identity Not on file Sexual Orientation Not on file documented as of this encounter Plan of Treatment Not on file documented as of this encounter Procedures Procedure Name Priority Date/Time Associated Diagnosis Comments CYTOPATHOLOGY Routine 10/21/2002 0:00 EDT documented in this encounter Results * CYTOPATHOLOGY (10/21/2002 0:00 EDT) Pathology Report: CYTOPATHOLOGY REPORT Reports generated via electronic interface contain original data; however they are lacking the format of the original report. Caution should be taken when reading/interpreti ng unformatted reports. Name: ? RUSLAN CHAIREZ ? Accession #: ? [id number] : ? 1970 (Age: 31) ??F ?Collect Date: ? 10/21/2002 Location: ? [facility] ? Receive Date: ? 10/22/2002 Provider: ?ANTONIETA CEDENO NP Copy to: ? Specimen/Source: ?ThinPrep Pap Test, Cervix/Endocervix Last Menstrual Period: ? 10/07/02 ? SPECIMEN ADEQUACY ? Satisfactory for Evaluation - transformation zone component present GENERAL CATEGORIZATION ? Negative for Intraepithelial Lesion or Malignancy ? Document reviewed and electronically signed by: ? Chriss Lion, CT(ASCP) ? Report Date: ??10/28/2002 10:24 End of Report [facility] 10/21/2002 10/22/2002 Antonieta Cedeno NP PATHOLOGY ORDERABLES [facility] [address] [place] [address] documented in this encounter Visit Diagnoses Not on filedocumented in this encounter
--- OUTSIDE RECORDS SUMMARY | 2024-02-04 01:23 | XMS_ITS | Encounter Summary ---
Author [place] [address] Care Team Providers Care Charter Boat Operator Name Role Phone Leonor Hendricks MD Primary Care Provider [phone] Reason for Visit * Reason Onset Date Comments Medication Refill 05/27/2023 Encounter Details Date Type Department Care Team (Late st Contact Info) Description 05/27/2023 [place] [address] Keyla Katz, RN Social History Tobacco Use Types Packs/Day [...] on filedocumented in this encounter Care Teams Charter Boat Operator Relationship Specialty Start Date End Date Leonor Hendricks MD [address] [place] [address] PCP - General Family Medicine 11/27/16 documented as of this encounter
--- OUTSIDE RECORDS SUMMARY | 2024-02-04 01:23 | XMS_ITS | Encounter Summary ---
[place] [address] Care Team Providers Care Buffer Chrome Name Role Phone Leonor Hendricks MD Primary Care Provider [phone] Reason for Visit * Reason Comments Prior Authorization Tremfya 100mg/mL SOP N Encounter Details Date Type Department Care Team (Late st Contact Info) Description 12/25/2022 Specialty [place] [address] Jean Paul Francis, MACHINE TECH Social History Tobacco Use Types Packs/Day Years Used Date Smoking Tobacco: Former Cigarettes Q uit: 03/21/2015 Smokeless Tobacco: Never Alcohol Use Standard Drinks/Week Comments No 0 (1 standard drink = 0.6 oz pur e alcohol) Sex and Gender Information Value Date Recorded Sex Assigned at Not on file Gender Identity Not on file Sexual Orientation Not on file documented as of this encounter Progress Notes * Jean Paul Francis - 12/25/2022 10:26 AM EDT [facility], Medication Prior Authorization Submission Patient: Jesika Ryan Patient : 1970 Patient Address: [address] [facility] [address] (home) Medication Name: GUSELKUMAB 100 MG/ML SUBCUTANEOUS AUTO-INJECTOR Medication ID: Subscriber Insurance: [employer] ([facility]) Subscriber Insurance Comment: Fax: Physician: ADDY WANG Physician Comment: Sent Via: [facility] Graham: [id number] Ref/Case/PA#: [id number] Medication Strength Frequency Requested: Tremfya 100mg/mL SOPN. Inject the contents of one pen (100mg) SQ once every 8 weeks Qty/Day Supply: New Start: Renewal Diagnosis & ICD-10 Code: Psoriasis L40.9 Patient Notified: No Submission Notes: None Jean Paul Francis 12/25/22 10:29 AM * Jean Paul Francis - 12/25/2022 10:26 AM EDT [facility], Prior Authorization Approval Medication Name: GUSELKUMAB 100 MG/ML SUBCUTANEOUS AUTO-INJECTOR Medication ID: Approval Dates: 12/25/2022 to 12/25/2023 Insurance requirements/notes: - For reauth only, patient is currently filling with [facility]. Provider sent new RX on 2022 Other Notes: None Case/Reference #: [id number] Approval notification Received via: Fax Copay: Copay assistance: Copay Card Copay Notes: Insurance mandated Pharmacy: [facility] Fillable at [facility]: No Patient Notified: No Pharmacy staff will be reaching out to the patient to inform them of their medication[facility]. If applicable, a pharmacist will speak with the patient to offer our specialty pharmacy services and to arrange delivery of their medication. Jean Paul Francis 12/25/22 11:49 AM documented in this encounter Plan of Treatment Not on file documented as of this encounter Visit Diagnoses Not on filedocumented in this encounter Care Teams Buffer Chrome Relationship Specialty Start Date End Date Leonor Hendricks MD [address] [place] [address] PCP - General Family Medicine 11/27/16 documented as of this encounter
--- OUTSIDE RECORDS SUMMARY | 2024-02-04 01:23 | XMS_ITS | Encounter Summary ---
Author Organization [facility] [place] [address] Care Team Providers Care Visual Merchandiser Name Role Phone Leonor Hendricks MD Primary Care Provider [phone] Reason for Visit * Reason Comments Medication Refill Encounter Details Date Type Department Care Team (Late st Contact Info) Description 12/03/2022 Ref[place] [address] Blade Martinez MD [facility] [place] [place] [address] Social History Tobacco Use Types Packs/Day Years [...] on filedocumented in this encounter Care Teams Visual Merchandiser Relationship Specialty Start Date End Date Leonor Hendricks MD [address] [place], [place] [address] PCP - General Family Medicine 11/27/16 documented as of this encounter
--- OUTSIDE RECORDS SUMMARY | 2024-02-04 01:23 | XMS_ITS | Encounter Summary ---
[place] [address] Care Team Providers Care Hob Mill Operator Name Role Phone Leonor Hendricks MD Primary Care Provider [phone] Encounter Details Date Type Department Care Team (Late st Contact Info) Description 04/08/2023 Refill Dermatology at [address] [place] [address] Baylee Mart, WILDLAND FIREFIGHTER Social History Tobacco Use Types Packs/Day Years [...] on filedocumented in this encounter Care Teams Hob Mill Operator Relationship Specialty Start Date End Date Leonor Hendricks MD [address] [place] [address] PCP - General Family Medicine 11/27/16 documented as of this encounter
--- OUTSIDE RECORDS SUMMARY | 2024-02-04 01:23 | XMS_ITS | Encounter Summary ---
Author Organization [facility] Address [address] [place] [address] Care Team Providers Care Network Admin Name Role Phone Leonor Hendricks MD Primary Care Provider [phone] Toni Aguero MD Unavailable Encounter Details Date Type Department Care Team (Late st Contact Info) Description 10/06/2020 Lab Requisition [facility] Pathology & Laboratory Medicine - [address] [address] Outr Resulting Lab, Provider Social History Tobacco [...] documented as of this encounter Care Teams Network Admin Relationship Specialty Start Date End Date Leonor Hendricks MD [address] [place] [address] PCP - General 06/30/20 Toni Aguero MD [address] [place] [address] 09/27/17 documented as of this encounter
--- OUTSIDE RECORDS SUMMARY | 2024-02-04 01:23 | XMS_ITS | Encounter Summary ---
Author Organization [facility] Address [address] [place] [address] Care Team Providers Care Field Recruiter Name Role Phone Unavailable Primary Care Provider Unavailabl e Encounter Details Date Type Department Care Team (Late st Contact Info) Description 09/15/2001 Results Only [facility] - Maple conversion [address] [place] [address] Antonieta Cedeno, NATALIE Social History Tobacco Use [...] Priority Date/Time Associated Diagnosis Comments CYTOPATHOLOGY Routine 09/15/2001 0:00 EST documented in this encounter Results * CYTOPATHOLOGY (09/15/2001 0:00 EST) Pathology Report: CYTOPATHOLOGY REPORT Reports generated via electronic interface contain original data; however they are lacking the format of the original report. Caution should be taken when reading/interpreti ng unformatted reports. Name: ? RUSLAN CHAIREZ ? Accession #: ? [id number] : ? 1970 (Age: 30) ??F ?Collect Date: ? 09/15/2001 Location: ? [facility] ? Receive Date: ? 09/16/2001 Provider: ?ANTONIETA CEDENO NP Copy to: ? Specimen/Source: ?ThinPrep Pap Test, Cervix/Endocervix Last Menstrual Period: ? 09/10/01 ? SPECIMEN ADEQUACY ? Satisfactory for Evaluation - transformation zone component present GENERAL CATEGORIZATION ? Negative for Intraepithelial Lesion or Malignancy ? Document reviewed and electronically signed by: ? Bernadette Mir, CT(ASCP) ? Report Date: ??09/19/2001 12:39 End of Report [facility] 09/15/2001 09/16/2001 Antonieta Cedeno NP PATHOLOGY ORDERABLES [facility] [address] [place] [address] documented in this encounter Visit Diagnoses Not on filedocumented in this encounter
--- OUTSIDE RECORDS SUMMARY | 2024-02-04 01:23 | XMS_ITS | Encounter Summary ---
Author Organization [facility] [place] [address] Care Team Providers Care Gate Watchman Name Role Phone Leonor Hendricks MD Primary Care Provider [phone] Reason for Visit * Reason Onset Date Comments Medication Refill 02/27/2023 Encounter Details Date Type Department Care Team (Late st Contact Info) Description 02/27/2023 [place] [address] Blade Martinez MD [facility] [place] [address] Social History Tobacco Use Types Packs/Day Years Used Date Smoking Tobacco: Former Cigarettes Q uit: 03/21/2015 Smokeless Tobacco: Never Alcohol Use Standard Drinks/Week Comments No 0 (1 standard drink = 0.6 oz pur e alcohol) Sex and Gender Information Value Date Recorded Sex Assigned at Not on file Gender Identity Not on file Sexual Orientation Not on file documented as of this encounter Miscellaneous Notes * Telephone Encounter - Olga Almonte LPN - 02/28/2023 8:14 AM EDT Requested Prescriptions Pending Prescriptions Disp Refills Insulin Tresiba FlexTouch U-100 100 unit/mL (3 mL) Insulin Pen 30 mL 3 Sig: Inject 20-25 Units subcutaneously daily. Indications: type 2 diabetes mellitus Last office visit: 01/22/2023 no future appt's scheduled Type 2 DM --To continue Tresiba pen 34 units (not lantus per insurance). She is allowed to titrate the dose down by 2-4 units based on fasting BG target of 90-140 mg/dl as instructed. Last refill: 01/10/2022 Last refill: 01/10/2022 documented in this encounter Plan of Treatment Not on file documented as of this encounter Visit Diagnoses Not on filedocumented in this encounter Care Teams Gate Watchman Relationship Specialty Start Date End Date Leonor Hendricks MD [address] [place] [address] PCP - General Family Medicine 11/27/16 documented as of this encounter
--- OUTSIDE RECORDS SUMMARY | 2024-02-04 01:23 | XMS_ITS | Encounter Summary ---
Author Organization [facility] Address [address] [place] [address] Care Team Providers Care Panel Beater Name Role Phone Unavailable Primary Care Provider Unavailabl e Encounter Details Date Type Department Care Team (Late st Contact Info) Description 09/25/2000 Results Only [facility] - Maple conversion [address] [place] [address] Antonieta Cedeno, NATALIE Social History Tobacco Use [...] Priority Date/Time Associated Diagnosis Comments CYTOPATHOLOGY Routine 09/25/2000 0:00 EDT documented in this encounter Results * CYTOPATHOLOGY (09/25/2000 0:00 EDT) Pathology Report: CYTOPATHOLOGY REPORT Reports generated via electronic interface contain original data; however they are lacking the format of the original report. Caution should be taken when reading/interpreti ng unformatted reports. Name: ? RUSLAN CHAIREZ ? Accession #: ? [id number] : ? 1970 (Age: 29) ??F ?Collect Date: ? 09/25/2000 Location: ? [facility] ? Receive Date: ? 09/26/2000 Provider: ?ANTONIETA CEDENO NP Copy to: ? Specimen/Source: ?ThinPrep Pap Test, Cervix/Endocervix Last Menstrual Period: ? 08/18/00 ? SPECIMEN ADEQUACY ? Satisfactory for evaluation. GENERAL CATEGORIZATION ? Within Normal Limits ? Document reviewed and electronically signed by: ? Yareli Reynolds, SCT(ASCP) ? Report Date: ??09/27/2000 13:30 End of Report [facility] 09/25/2000 09/26/2000 Antonieta Cedeno NP PATHOLOGY ORDERABLES [facility] [address] [place] [address] documented in this encounter Visit Diagnoses Not on filedocumented in this encounter
--- OUTSIDE RECORDS SUMMARY | 2024-02-04 01:23 | XMS_ITS | Encounter Summary ---
Author [place] [address] Care Team Providers Care Handicrafts Teacher Name Role Phone Leonor Hendricks MD Primary Care Provider [phone] Encounter Details Date Type Department Care Team (Late st Contact Info) Description 12/09/2023 Telephone [place] [address] Crystal Woodard RN Social History Tobacco Use Types Packs/Day [...] encounter Miscellaneous Notes * Telephone Encounter - Crystal Woodard RN - 12/09/2023 1:25 PM EDT Labs efaxed * Telephone Encounter - Crystal Woodard RN - 12/09/2023 1:23 PM EDT Copied from [facility] #[id number]. Topic: Specialty Dept CRMs - Generic Call >> Dec 09, 2023 11:57 AM Josee Mac wrote: Specialist: Endocrinology Relationship (if other than patient-full name): César - ELENI Reason for Call: Patient has appointment to have labs drawn but they do not have lab orders. Pleasefax lab orders to [phone] documented in this encounter Plan of Treatment Not on file documented as of this encounter Visit Diagnoses Not on filedocumented in this encounter Care Teams Handicrafts Teacher Relationship Specialty Start Date End Date Leonor Hendricks MD [address] [place] [address] PCP - General Family Medicine 11/27/16 documented as of this encounter
--- OUTSIDE RECORDS SUMMARY | 2024-02-04 01:23 | XMS_ITS | Encounter Summary ---
Author Organization [facility] [place] [address] Care Team Providers Care Axle And Frame Mechanic Name Role Phone Leonor Hendricks MD Primary Care Provider [phone] Encounter Details Date Type Department Care Team (Latest Contact Info) Description 12/13/2023 9:00 AM EDT TH Visit (TeleHealth) [place] [address] Blade Martinez MD [facility] [place] [address] Uncontrolled type 2 diabetes mellitus with hyperglycemia, without long-term current use of insulin; Misha's thyroiditis; Vitamin D deficiency; Hypertriglyceridemia Social History Tobacco Use Types Packs/Day Years Used Date Smoking Tobacco: Former Cigarettes Q uit: 03/21/2015 Smokeless Tobacco: Never Alcohol Use Standard Drinks/Week Comments No 0 (1 standard drink = 0.6 oz pur e alcohol) Sex and Gender Information Value Date Recorded Sex Assigned at Not on file Gender Identity Not on file Sexual Orientation Not on file documented as of this encounter Last Filed Vital Signs Vital Sign Reading Time Taken Comments Blood Pressure 120/80 12/13/2023 9:06 AM EDT Pulse 70 12/13/2023 9:06 AM EDT Temperature - - Respiratory Rate 12 12/13/2023 9:06 AM EDT Oxygen Saturation - - Inhaled Oxygen Concentration - - Weight 96.6 kg (213 lb) 12/13/2023 9:06 AM EDT Height 160 cm (5' 3) 12/13/2023 9:06 AM EDT Body Mass Index 37.73 12/13/2023 9:06 AM EDT documented in this encounter Patient Instructions * Patient Instructions* Blade Martinez MD - 12/13/2023 9:00 AM EDT PLAN: 1. Type 2 DM --To continue Tresiba pen 30-34 units (not lantus per insurance). She is allowed to titrate the dose down by 2-4 units based on fasting BG target of 90-140 mg/dl as instructed. -- To Mounjaro 10 mg weekly stable dose further --To cont Humalog pen tid as needed (not daily) for correction of high BG qid as needed and ok (to use only half dose correction at bedtime). --continue Metformin 1000mg BID --continue Jardiance 25mg daily - will upgrade Dexcom G7 CGM I am recommending this patient continue using a Dexcom G6 CGM for personal use. Pt has a private insurance: Patient is on Multiple Daily Injections: Diagnosis: Diabetes Mellitus Patient performs SMBG at least 4x per day Patient administers 3 or more insulin injections per day Patient frequently adjusts meal time insulin doses Patient needs a therapeutic CGM I plan to see this pt every 3-6 months following this initial prescription of the CGM to assess adherence to their CGM regimen and diabetes treatment plan. 2. Hypertriglyceridemia - --continue fenofibrate (Tricor) 145 mg daily --continue rosuvastatin 20mg daily --continue fish oil or lovaza 2g twice daily. --repeat fasting lipid panel with A1c in 3 months, she will do at [facility] 3. History of Misha's thyroiditis with obesity (BMI ~37.7) - TSH 3.99 in Jul 2018 at the borderline low thyroid => good TSH 1.88 on repeat (09/18/21) and 2.65 (07/13/22) - will monitor TSH in 6 mo since hypothyroid can aggravate hyperlipidemia and cause weight gain 4. Vitamin D deficiency - lab on 05/25/21 showed very low 25vitamin D at 13.2 => still low at 19 after loading dose for 7days and then weekly => finally up to 62 but then dropped to 27.7 (normal 30-100), - To continue vitamin D 50,000 iu 2 capsules weekly for severe vitD deficiency - recheck lab in 3-6 mo 5. Follow-up 6 months after next lab test (standing lab orders q 3 mo for A1c, lipids, and 25vitamin D) and TSH in 3 mo at next lab draw at [facility] lab as well. 6. We discussed with pt about the Revitalize-1 study using endoscopic duodenal mucosal resurfacing thermal procedure for T2DM on insulin plus pills & GLP1 to see if we can reduce insulin need, A1c, and weight down for her. She is interested so our research coordinator, Kyara CORDOBA, will contact her soon. Blade Martinez MD, PhD, FACE, FACP documented in this encounter Progress Notes * Blade Martinez MD - 12/13/2023 9:00 AM EDT Endocrinology Clinic Follow-up Visit Name: Jesika Ryan : 1970 PCP: Leonor Hendricks MD Date: 12/13/23 Reason for Visit: Follow-up visit for Type 2 diabetes on insulin plus pills/GLP1 and also hypertriglyceridemia. She used to see Dr. Morales until 10/26/20 and was transferred under my care from since 11/25/20. BMI has trended down from 40 to 37 with GLP1 weekly with wt down from 235 to 213 lbs now. Patient verbally consents to this telehealth visit and understands that this visit may be billed, similar to a clinic office visit. I provided care to the patient today via VDO call. The total time associated with this visit, chartreview, documentation, and coordination of care was 30 minutes. HISTORY OF PRESENT ILLNESS: Ms. Jesika Ryan is a 52 y.o. lady with history significant for DM type 2, diagnosed in December 2017 after being prediabetic for some time (signs of prediabetes seen on mixed meal test in Jun 2017). She was started her on metformin 1000mg BID in December 2017. In Winter 2018, her A1c had suddenly worsened from 8.4% to 11.2% even despite addition of trulicity 0.75mg once weekly, so it was switched to Victoza. Her A1c had improved to 7.5% now (01/18/23) -- She started the insulin regimen since 10/12/20 - Lantus 20 units daily=> Tresiba pen 30-34 u qAM and humalog TID p.r.n. for correction per sliding scale as needed. -- The Vazquez CGM was too expensive for her in the past so we switched to Dexcom CGM since 11/25/20 ($55/mo) to help closely monitor BG. -- She has been using since Sep 2020 and no need for meal-coverage insulin any more after using GLP1 and only sliding scale p.r.n (not daily) --Since 01/13/21 visit, we switched victoza to ozempic 0.25-0.5-1 mg sc weekly and she lost 13 lbs from 235 to 222 lbs over 8 months=> then switched to Mounjaro 10 mg weekly since Jul 2022 --She tried to taper off basaglar but noted higher fasting BG >150 with A1c back up to 8.5% (09/18/21) plus higher TG 746, so she has been taking Tresiba pen 30u qAM lately DM regimen: Date of Diagnosis: December 2017, using Dexcom CGM Tresiba pen 30-34u qAM to keep fasting BG 90-150 (changed from basaglar to Tresiba pen per insurance since 01/10/22) Humalog kwik pen extra from sliding scale if high before meals and at bedtime as needed for correction of high BG>150 as follows: Blood sugar 150 - 175, take 2 extra units TID => based on 1u:25BG (since 11/25/20) Blood sugar 176 - 200, take 4 extra units Blood sugar 201 - 225, take 6 extra units Blood sugar 226 - 250, take 8 extra units Blood sugar above 250, take 10 extra units Metformin 1000 mg bid Jardiance 25 mg qd Monujaro 10 mg sc weekly She has been asymptomatic without abdominal pain. N/V and tried to eat low fat low carb plus medications as above. She is upset that her A1c has rising from 7.4 () to 8.0% now (12/10/23) She used to lose wt down with ozempic but then plateau before we switched to Mounjaro weekly pen since last year. BMI has trended down from 40 to 37 with wt down from 235 to 219-222 lbs last visit and 213 lbs now. She has no FH of hyperTG that she is aware of. No etoh and already quit smoking 4 yrs ago. Lipid Rx regimen: Fenofibrate 145 mg qd -since 10/11/20 Crestor 20 mg qd Fish oil 2,000 mg 2x daily Very low fat and controlled carb diet Labs at [facility] Date 10/25/20 11/22/20 01/03/21 Glucose 184 210 GFR 60 Cr 0.8 Triglyceride 1,037 374 380 Outside lab at [facility] Date 05/25/21 09/18/21 11/29/21 07/13/22 01/18/23 A1c 8.1, better (was 9.0% in December) 8.5% 8.2% 8.4% 7.5% TSH 2.79, ok for thyroid 1.88 3.16 2.65 Comprehensive chemistry - ok TC/LDL 162/- 178/54 186/70 153/60 152/62 TG/HDL 518H/28L 746H/25L 723H/27L 426/21 446/29 B12 321, low normal (normal 250-1200) Vitamin D 13.2, very low 19.7 62 27.7L 31.5 (normal 30-100) on vitamin D 50,000 iu q 2 weeks in summer and back to weekly in fall & winter Ref. Range 08/06/2016 17:00 07/24/2018 11:27 10/09/2018 10:56 01/08/2019 11:25 Hemoglobin A1C Range: 4.3 - 5.6 % 5.4 11.2 (H) 8.8 (H) 7.5 (H) => 8.9% (H) on 10/14/20=> 9.0% (01/03/21) > 8.1 (05/25/21)>-8.5% (09/18/21) -> 7.5% (01/18/23) FSBG: Fasting BG 100s, avg BG 145 mg/dl; check FSBG 3-4x/day before meal & bedtime Last HgbA1c: 7.5% (01/18/23), 8.1-8.5% (09/18/21) 9.0% (01/03/21), 8.9% (10/14/20), 7.5% (01/08/19), 8.8% (September 2018), 11.2% (Jul 2018), 8.4% (04/11/18), 9.2% (December 2017 - with PCP), 5.4% (2016) Hypoglycemia: none Diet: a lot of vegetables, chicken or pork or fish, EVOO Physical Activity: walking Smoking: quit December 2015. History of complications 1) Nephropathy - Um:cr 6.9 (01/08/19) , GFR >60 (10/06/20) 2) Neuropathy - no n/t. 3) Retinopathy - Last ophtho evaluation - sees Dr. Martin at [facility], no DR (August 2018). 4) CV disease - LDL 115 (Jul 2018)=> 127 (11/22/20) -> 54 (09/18/21), used to be on Lipitor then pravastatin up to a few years ago when her anxiety flared - then she eliminated any nonessential medications. Now her anxiety is better; she has resumed a statin since September 2020 (crestor 20 mg qd). PAST MEDICAL HISTORY: Patient Active Problem List Diagnosis Date Noted Psoriatic arthritis 08/25/2018 High risk medication use 08/25/2018 Misha's thyroiditis 2016 Anxiety 2016 Psoriasis 03/12/2011 SOCIAL HISTORY: Social History Tobacco Use Smoking Status Former Smoker Types: Cigarettes Last attempt to quit: 03/21/2015 Years since quittin.5 Smokeless Tobacco Never Used FAMILY HISTORY: Family History Relation Problem Age of Onset Maternal Aunt Eczema Maternal Grandfather Eczema REVIEW OF SYSTEMS: All 12 systems reviewed and negative except as noted per HPI. PHYSICAL EXAM: BP 120/80 Pulse 70 Resp 12 Ht 160 cm (5' 3) Wt 96.6 kg (213 lb) BMI 37.73 kg/m?? Appearance: obese, very pleasant, NAD HEENT: PERRLA, EOMI, no lid lag or exophthalmos Neck: supple, no goiter visible Ext: normal skin appearance no edema Neuro: no weakness, non-focal, no facial asymmetry. Outside lab at [facility] Date 05/25/21 09/18/21 11/29/21 07/13/22 01/18/23 05/24/23 12/10/23 A1c 8.1, better (was 9.0% in December) 8.5% 8.2% 8.4% 7.5% 7.4% 8.0% TSH 2.79, ok for thyroid 1.88 3.16 2.65 - 2.92 2.7 Comprehensive chemistry - ok (Cr 0.7, Ca 9.4, K 4.0), except for glucose 184H TC/LDL 162/- 178/54 186/71 153/60 152/62 207/77 149/52 TG/HDL 518H/28L 746H/25L 723H/27L 426/21 426/29L 614H/32 440/31=> to eat very low fat/low carb diet & keep A1c down to lower TG B12 321, low normal (normal 250-1200) Vitamin D 13.2, very low 19.7 62 27.2 31.5 24.1L 33.3(normal 30-100), better on vitamin D 50,000 iu2 capsules weekly. ASSESSMENT: 52 y.o. lady who has had type 2 diabetic since December 2017 (a1c 7.4- 11.2% range), better control with the addition of GLP1 (initially using victoza) and switched to basal-bolus insulin which helped control her BG and TG down quickly with recent triglyceride leveld continued to improve andstable in 300s- 400s since December 2020. She is on fenofibrate 145 mg daily, crestor 20 mg qd. and fishoil (lovaza) in addition to very low fat/low carb diet and high-intensity statin. We switched victoza to ozempic in December 2020 and then Mounjaro 10 mg weekly since spring 2022. She cont only basal insulin using Tresiba 30-34u daily with goal to keep A1c <7% andl triglycerides under 500 consistently. She has reduced insulin need after using Ozempic and then Mounjaro pen and knows to use Humalog sliding scale as needed (no need for meal coverage for carb). Target BG 80-150 range pre-meal and <180-200 after eating to keep A1c & TG down further. BMI has trended down from 40 to 37 with wtdown from 235 to 213 lbs now. Since her triglyceride has been better trending down to <500 consistently and stable, it's ok to continue using GLP-1 pen weekly further. Will closely monitor lab again every 3 months until stable. PLAN: 1. Type 2 DM --To continue Tresiba pen 30-34 units (not lantus per insurance). She is allowed to titrate the dose down by 2-4 units based on fasting BG target of 90-140 mg/dl as instructed. -- To Mounjaro 10 mg weekly stable dose further --To cont Humalog pen tid as needed (not daily) for correction of high BG qid as needed and ok (to use only half dose correction at bedtime). --continue Metformin 1000mg BID --continue Jardiance 25mg daily - will upgrade Dexcom G7 CGM I am recommending this patient continue using a Dexcom G6 CGM for personal use. Pt has a private insurance: Patient is on Multiple Daily Injections: Diagnosis: Diabetes Mellitus Patient performs SMBG at least 4x per day Patient administers 3 or more insulin injections per day Patient frequently adjusts meal time insulin doses Patient needs a therapeutic CGM I plan to see this pt every 3-6 months following this initial prescription of the CGM to assess adherence to their CGM regimen and diabetes treatment plan. 2. Hypertriglyceridemia - --continue fenofibrate (Tricor) 145 mg daily --continue rosuvastatin 20mg daily --continue fish oil or lovaza 2g twice daily. --repeat fasting lipid panel with A1c in 3 months, she will do at [facility] 3. History of Misha's thyroiditis with obesity (BMI ~37.7) - TSH 3.99 in Jul 2018 at the borderline low thyroid => good TSH 1.88 on repeat (09/18/21) and 2.65 (07/13/22) - will monitor TSH in 6 mo since hypothyroid can aggravate hyperlipidemia and cause weight gain 4. Vitamin D deficiency - lab on 05/25/21 showed very low 25vitamin D at 13.2 => still low at 19 after loading dose for 7days and then weekly => finally up to 62 but then dropped to 27.7 (normal 30-100), - To continue vitamin D 50,000 iu 2 capsules weekly for severe vitD deficiency - recheck lab in 3-6 mo 5. Follow-up 6 months after next lab test (standing lab orders q 3 mo for A1c, lipids, and 25vitamin D) and TSH in 3 mo at next lab draw at [facility] lab as well. 6. Discussed with pt about the Revitalize-1 study using endoscopic duodenal resurfacing procedure for T2DM on insulin plus pills & GLP1 to see if we can reduce insulin need, A1c, and weight down for her.. Our research coordinator, Kyara CORDOBA, will contact her soon. Blade Martinez MD, PhD, FACE, FACP documented in this encounter Plan of Treatment Not on file documented as of this encounter Visit Diagnoses Diagnosis Uncontrolled type 2 diabetes mellitus with hyperglycemia, without long-term current use of insulin Misha's thyroiditis Chronic lymphocytic thyroiditis Vitamin D deficiency Unspecified vitamin D deficiency Hypertriglyceridemia Pure hyperglyceridemia documented in this encounter Care Teams Axle And Frame Mechanic Relationship Specialty Start Date End Date Leonor Hendricks MD [address] [place] [address] PCP - General Family Medicine 11/27/16 documented as of this encounter
--- OUTSIDE RECORDS SUMMARY | 2024-02-04 01:23 | XMS_ITS | Encounter Summary ---
Author Organization [facility] Address [address] [place] [address] Care Team Providers Care Maritime Officer Name Role Phone Toni Aguero MD Primary Care Provider [phone] Unknown, Provider Primary Care Provider [phone] Toni Aguero MD Unavailable Encounter Details Date Type Department Care Team (Late st Contact Info) Description 09/26/2017 Results Only [facility] [phone] Elva Suárez, [address] [phone] Social History Tobacco Use Types Packs/Day Years Used Date Smoking Tobacco: Never Assessed Sex and Gender Information Value Date Recorded Sex Assigned at Not on file Gender Identity Not on file Sexual Orientation Not on file documented as of this encounter Plan of Treatment Not on file documented as of this encounter Procedures Procedure Name Priority Date/Time Associated Diagnosis Comments PAP TEST- RESULT ONLY Routine 09/26/2017 0:00 EDT documented in this encounter Results * PAP TEST- RESULT ONLY (09/26/2017 0:00 EDT) Pathology Report: CYTOPATHOLOGY REPORT Reports generated via electronic interface contain original data; however they are lacking the format of the original report. Caution should be taken when reading/interpreti ng unformatted reports. Name: ? RUSLAN RYAN ? Accession #: ? [id number] ? : ? 1970 (Age: 46) ??F ?Collect Date: ? 09/26/2017 ? Location: ? [facility] ? Receive Date: ? 09/27/2017 ? Provider: ELVA SUÁREZ LINE WELDER Copy to: ROOSEVELT ALEX MD ? Final Report SPECIMEN ADEQUACY ? Satisfactory for Evaluation - transformation zone component present GENERAL CATEGORIZATION ? Negative for Intraepithelial Lesion or Malignancy ?? Hormonal/Contracep tive status: Oral contraceptives: Continuous Specimen/Source: ??Pap Test, Cervix, ThinPrep Imaging System with manual evaluation Document reviewed and electronically signed by: ? SEPIDEH Simmons(ASCP) ? Report ??Date: 10/03/2017 11:29 HPV with Pap Test ? Date Ordered: ? 10/03/2017 ? Status: ?? Signed Out ?Date Complete: ? 10/04/2017 ? By: ??System Interface ? Date Reported: ? 10/04/2017 ? Interpretation RESULT: Negative for HPV. No E6 or E7 mRNA is detected from HPV types 16,18,31,33,35, 39,45,51,52,56,58, 59,66, and 68 by sr risk management consultant mediated amplification. Comments Document reviewed and electronically signed by: ? System Interface ? Report date: 10/04/2017 By the signature above, the attending physician certifies that he/she has personally conducted a gross and/or microscopic examination of the described specimens and rendered or confirmed the above diagnosis. End of Report [facility] 09/26/2017 09/27/2017 Elva Santana Suárez LINE WELDER PATHOLOGY ORDERABLES Performing Organization Address City/State/[facility] Co de Phone Number [facility] [address] [place] [address] documented in this encounter Visit Diagnoses Not on filedocumented in this encounter Care Teams Maritime Officer Relationship Specialty Start Date End Date Toni Aguero MD PCP - General 10/01/16 09/26/17 Unknown, ProviderMD PCP - General 09/27/17 06/29/20 Toni Aguero MD 09/27/17 documented as of this encounter
--- OUTSIDE RECORDS SUMMARY | 2024-02-04 01:23 | XMS_ITS | Encounter Summary ---
[place] [address] Care Team Providers Care Software Applications Developer Name Role Phone Leonor Hendricks MD Primary Care Provider [phone] Reason for Visit * Reason Comments Medication Refill Encounter Details Date Type Department Care Team (Late st Contact Info) Description 12/15/2022 Refill Dermatology at [place] [address] [place] [phone] Andreas Richardson MD [address] [facility], [place] [address] Social History Tobacco Use Types Packs/Day Years [...] on filedocumented in this encounter Care Teams Software Applications Developer Relationship Specialty Start Date End Date Leonor Hendricks MD [address] [place], [place] [id number] PCP - General Family Medicine 11/27/16 documented as of this encounter
--- OUTSIDE RECORDS SUMMARY | 2024-02-04 01:23 | XMS_ITS | Encounter Summary ---
[place] [address] Care Team Providers Care Can Solderer Name Role Phone Leonor Hendricks MD Primary Care Provider [phone] Encounter Details Date Type Department Care Team (Late st Contact Info) Description 12/31/2022 Telephone [place] [phone] Keyla Katz RN Social History Tobacco Use Types Packs/Day [...] encounter Miscellaneous Notes * Telephone Encounter - Keyla Katz RN - 12/31/2022 1:16 PM EDT Called pharmacy to confirm monjourno dosage. documented in this encounter Plan of Treatment Not on file documented as of this encounter Visit Diagnoses Not on filedocumented in this encounter Care Teams Can Solderer Relationship Specialty Start Date End Date Leonor Hendricks MD [address] [place] [address] PCP - General Family Medicine 11/27/16 documented as of this encounter
--- OUTSIDE RECORDS SUMMARY | 2024-02-04 01:23 | XMS_ITS | Encounter Summary ---
[place] [address] Care Team Providers Care Neon Tube Bender Name Role Phone Leonor Hendricks MD Primary Care Provider [phone] Reason for Visit * Reason Onset Date Comments Medication Refill 02/05/2023 Encounter Details Date Type Department Care Team (Late st Contact Info) Description 02/05/2023 [place] [phone] Keyla Katz, RN Social History Tobacco Use [...] on filedocumented in this encounter Care Teams Neon Tube Bender Relationship Specialty Start Date End Date Leonor Hendricks MD [address] [place] [address] PCP - General Family Medicine 11/27/16 documented as of this encounter
--- OUTSIDE RECORDS SUMMARY | 2024-02-04 01:23 | XMS_ITS | Encounter Summary ---
Author Organization [facility] Address [address] [place] [address] Care Team Providers Care Animal Trapper Name Role Phone Leonor Hendricks MD Primary Care Provider [phone] Toni Aguero MD Unavailable Encounter Details Date Type Department Care Team (Late st Contact Info) Description 06/02/2021 Lab Requisition [facility] Pathology & Laboratory Medicine - [facility] [address] [place], [place] [address] Outr Resulting Lab, Provider Social History Tobacco [...] Comments ZZCOVID-19 TEST [facility] PCR Today 06/02/2021 8:05 EST COVID-19 TESTING Routine 06/02/2021 8:05 EST documented in this encounter Results * COVID-19 TEST [facility] PCR (06/02/2021 8:05 EST) Swab 06/02/2021 8:05 EST 06/02/2021 17:18 EST Provider Outr Resulting Lab MICROBIOLOGY - GENERAL ORDERABLES [facility] [address] [place] [address] * COVID-19 TESTING (06/02/2021 8:05 EST) COVID-19 rt-PCR Result Negative Negative 06/03/2021 11:[address] [facility] Comment: This test has [...] the authorization is terminated or revoked sooner. Negative results do not preclude 2019-nCoV infection and should not be used as the sole basis for treatment or other patient management decisions. Negative results must be combined with clinical observations, patient history, and epidemiological information. Testing was performed using the khari SARS-CoV-2 assay ([employer] on the Khari 6800 System Performing Lab Khari 68[address] [facility] 06/03/2021 11:[address] [facility] Swab 06/02/2021 8:05 EST 06/02/2021 17:18 EST Provider Outr Resulting Lab MICROBIOLOGY - GENERAL ORDERABLES Performing Organization Address City/State/[facility] Co de Phone Number [facility] [address] [place] [address] documented in this encounter Visit Diagnoses Not on filedocumented in this encounter Care Teams Animal Trapper Relationship Specialty Start Date End Date Leonor Hendricks MD [address] [place] [phone] PCP - General 06/30/20 Toni Aguero MD [address] [place] [phone] 09/27/17 documented as of this encounter
--- OUTSIDE RECORDS SUMMARY | 2024-02-04 01:23 | XMS_ITS | Encounter Summary ---
[place] [address] Care Team Providers Care Tool Carrier Name Role Phone Leonor Hendricks MD Primary Care Provider [phone] Reason for Visit * Reason Onset Date Comments Prior Authorization 01/25/2023 Encounter Details Date Type Department Care Team (Late st Contact Info) Description 01/25/2023 Telephone [place] [phone] Reva Sun Prior Authorization Social History Tobacco Use Types Packs/Day Years [...] encounter Miscellaneous Notes * Telephone Encounter - Reva Sun - 01/25/2023 12:59 PM EDT Images from the original note were not included. Medication Prior Authorization Chaidarun Medication name/dose/directions: Mounjaro 12.5mg/0.5mL - inject 0.5mL once weekly Rationale for request: Type II DM (E11.65) Health plan: JEAN-PAUL ([facility]) Graham: [id number] Authorizing promotions representative name: Naima Sent to health plan on: 01/25/23 PA Outcome: documented in this encounter Plan of Treatment Not on file documented as of this encounter Visit Diagnoses Not on filedocumented in this encounter Care Teams Tool Carrier Relationship Specialty Start Date End Date Leonor Hendricks MD [address] [place] [address] PCP - General Family Medicine 11/27/16 documented as of this encounter
--- OUTSIDE RECORDS SUMMARY | 2024-02-04 01:23 | XMS_ITS | Encounter Summary ---
Author Organization [facility] Address [address] [place] [address] Care Team Providers Care Embossing Press Operator Apprentice Name Role Phone Leonor Hendricks MD Primary Care Provider [phone] Toni Aguero MD Unavailable Encounter Details Date Type Department Care Team (Late st Contact Info) Description 10/06/2020 Lab Requisition [facility] Pathology & Laboratory Medicine - [facility] [address] [place] [address] Outr Resulting Lab, Provider Social History Tobacco [...] Procedure Name Priority Date/Time Associated Diagnosis Comments T3 FREE Routine 10/05/2020 14:20 EDT documented in this encounter Results * T3 FREE (10/05/2020 14:20 EDT) T3, Free 3.2 2.8 - 5.3 pg/mL 10/06/2020 16:59 EDT [facility] Comment:Turbid sample identi fied, interpret with caution as turbidity may affect result. Blood VENOUS BLOOD / Unknown 10/05/2020 14:20 EDT 10/06/2020 16:26 EDT Provider Outr Resulting Lab CHEMISTRY & BLOOD GAS ORDERABLES [facility] [address] [place] [address] documented in this encounter Visit Diagnoses Not on filedocumented in this encounter Additional Health Concerns Infection Onset Date Last Indicated Resolved Time COVID-19 02/16/2021 02/16/2021 03/18/2021 22:1 5 EDT documented as of this encounter Care Teams Embossing Press Operator Apprentice Relationship Specialty Start Date End Date Leonor Hendricks MD [address] [place] [phone] PCP - General 06/30/20 Toni Aguero MD [address] [place] [phone] 09/27/17 documented as of this encounter
--- OUTSIDE RECORDS SUMMARY | 2024-02-04 01:23 | XMS_ITS | Encounter Summary ---
Author Organization [facility] Address [address] [place] [address] Care Team Providers Care Agricultural Equipment Sales Manager Name Role Phone Unavailable Primary Care Provider Unavailabl e Encounter Details Date Type Department Care Team (Late st Contact Info) Description 04/01/[address] [facility] - [facility] conversion [address] [place] [address] Antonieta Cedeno, NATALIE Social History Tobacco Use [...] Priority Date/Time Associated Diagnosis Comments CYTOPATHOLOGY Routine 04/01/2006 0:00 EDT documented in this encounter Results * CYTOPATHOLOGY (04/01/2006 0:00 EDT) Pathology Report: CYTOPATHOLOGY REPORT Reports generated via electronic interface contain original data; however they are lacking the format of the original report. Caution should be taken when reading/interpreti ng unformatted reports. Name: ? RUSLAN CHAIREZ ? Accession #: ? [id number] : ? 1970 (Age: 35) ??F ?Collect Date: ? 04/01/2006 Location: ? [facility] ? Receive Date: ? 04/02/2006 Provider: ?ANTONIETA CEDENO GROUND CREW SUPERVISOR Copy to: ? Specimen/Source: ?ThinPrep Pap Test, Cervix/Endocervix, processed on SmartDocs (Teknowmics) ThinPrep Imaging System, with manual evaluation Last Menstrual Period: ? 03/24/06 Other: ? HPVA - HPV testing requested if ASC-US on the current ThinPrep Pap test. ? SPECIMEN ADEQUACY ? Satisfactory for Evaluation - transformation zone component present GENERAL CATEGORIZATION ? Negative for Intraepithelial Lesion or Malignancy ? Document reviewed and electronically signed by: ? SEPIDEH Whitney(ASCP) ? Report Date: ??04/04/2006 14:52 End of Report [facility] 04/01/2006 04/02/2006 Antonieta Cedeno NP PATHOLOGY ORDERABLES Performing Organization Address City/State/[facility] Co de Phone Number [facility] [address] [place] [address] documented in this encounter Visit Diagnoses Not on filedocumented in this encounter
--- OUTSIDE RECORDS SUMMARY | 2024-02-04 01:23 | XMS_ITS | Encounter Summary ---
Author Organization [facility] [place] [address] Care Team Providers Care Civil Preparedness Coordinator Name Role Phone Leonor Hendricks MD Primary Care Provider [phone] Reason for Visit * Reason Comments Medication Refill Encounter Details Date Type Department Care Team (Late st Contact Info) Description 12/12/2023 [place] [address] Blade Martinez MD [facility] [place] [address] Uncontrolled type 2 diabetes mellitus with hyperglycemia, without long-term current use of insulin Social History Tobacco Use Types Packs/Day Years [...] hyperglycemia, without long-term current use of insulin documented in this encounter Care Teams Civil Preparedness Coordinator Relationship Specialty Start Date End Date Leonor Hendricks MD [address] [place] [address] PCP - General Family Medicine 11/27/16 documented as of this encounter
--- OUTSIDE RECORDS SUMMARY | 2024-02-04 01:23 | XMS_ITS | Clinical Summary ---
Author Organization [facility] Address [address] [place] [address] Care Team Providers Care Attending Psychiatrist Name Role Phone Leonor Hendricks MD Primary Care Provider [phone] Toni Aguero MD Unavailable Social History Tobacco Use Types Packs/Day Years Used Date Smoking Tobacco: Never Assessed Sex and Gender Information Value Date Recorded Sex Assigned at Not on file Gender Identity Not on file Sexual Orientation Not on file Plan of Treatment Health Maintenance Due Date Last Done Comments Hepatitis C Screen 1970 Hepatitis B Vaccine (1 of 3 - 19+ 3-dose series) 12/24 COVID-19 Vaccine (2022- season) 2023 Care Teams Attending Psychiatrist Relationship Specialty Start Date End Date Leonor Hendricks MD [address] [place] [phone] PCP - General 06/30/20 Toni Aguero MD [address] [place] [phone] 09/27/17
--- OUTSIDE RECORDS SUMMARY | 2024-02-04 01:23 | XMS_ITS | Encounter Summary ---
Author Organization [facility] [place] [address] Care Team Providers Care Architectural Administrative Assistant Name Role Phone Leonor Hendricks MD Primary Care Provider [phone] Reason for Visit * Reason Comments Medication Refill Encounter Details Date Type Department Care Team (Late st Contact Info) Description 2022 [place] [address] Blade Martinez MD [facility] [place] [address] Uncontrolled type 2 diabetes mellitus with hyperglycemia, [...] insulin documented in this encounter Care Teams Architectural Administrative Assistant Relationship Specialty Start Date End Date Leonor Hendricks MD [address] [place] [address] PCP - General Family Medicine 11/27/16 documented as of this encounter
--- OUTSIDE RECORDS SUMMARY | 2024-02-04 01:23 | XMS_ITS | Clinical Summary ---
Author Organization [facility] Address [facility] [place] [address] Care Team Providers Care Nuclear Reactor Technician Name Role Phone Leonor Hendricks MD Primary Care Provider [phone] Allergies Active Allergy Reactions Criticality Noted Date Comments Ustekinumab Other (See Comments) 05/21/2016 Awaobwzwd-wkxdkxr-kglwxoct s Medications Medication Sig Dispensed Refills Start Date End Date Status escitalopram (LEXAPRO) 20 mg Tablet Take 20 mg by mouth daily. 3 01/16/2017 Active norethindrone (AYGESTIN) 5 mg Tablet Take 5 mg by mouth daily. 6 09/26/2017 Active guselkumab (TREMFYA) 100 mg/mL Syringe Inject 100 mg subcutaneously Every 8 Weeks. Inject SC one prefilled syringe every eight weeks 1 Syringe 3 08/08/2018 Active rosuvastatin (Crestor) 20 mg Tablet Take 20 mg by mouth every evening. 03/22/2022 Active fenofibrate (TRICOR) 145 mg Tablet Take 145 mg by mouth daily. 02/22/2022 Active Ozempic 1 mg/dose (4 mg/3 mL) Pen Injector INJECT 1 MG SUBCUTANEOUSLY EVERY 7 DAYS 9 mL 3 10/08/2022 Active Additional Information Patient not taking.Reported on 01/22/2023 One Touch Delica 33 gauge Misc 1 each by Misc.(Non-Drug; Combo Route) route 4 times daily. 400 each 3 10/25/2022 Active OneTouch Verio test strips Strip 1 strip by Other route 4 times daily. Use as instructed 400 strip 3 10/25/2022 Active OneTouch Verio Flex meter Misc Use to test blood sugar 4 times daily. DX: E11.65 1 each 12/04/2022 Active humaLOG KwikPen 100 unit/mL Insulin Pen INJECT 5 TO 15 UNITS SUBCUTANEOUSLY FOUR TIMES A DAY NEEDED (5 UNITS PLUS 2-10 UNITS FOR CORRECTION ON SLIDING SCALE) 60 mL 3 12/04/2022 Active insulin needles, disposable, (Winnie Pen Needle) 32 gauge x 5/32 Needle Inject 1 each subcutaneously 5 times daily. 500 each 3 12/04/2022 Active tirzepatide (Mounjaro) 12.5 mg/0.5 mL Pen Injector Inject 12.5 mg subcutaneously once a week. For 4 weeks and then 15 mg sc weekly 2 mL 11 01/22/2023 Active tirzepatide (Mounjaro) 15 mg/0.5 mL Pen Injector Inject 15 mg subcutaneously once a week. 6 mL 4 02/27/2023 Active metFORMIN (Glucophage) 1,000 mg tablet TAKE ONE TABLET BY MOUTH TWICE A DAY WITH MEALS 180 tablet 3 01/23/2023 Active tirzepatide 10 mg/0.5 mL Pen Injector Inject 10 mg subcutaneously once a week. 6 mL 3 02/05/2023 Active ergocalciferoL, vitamin D2, (vitamin D2) 50,000 unit capsule Take 2 capsules by mouth once a week. 25 capsule 3 05/27/2023 Active omega-3 acid ethyl esters (Lovaza) 1 gram capsule Take 2 capsules by mouth 2 times daily. 120 capsule 11 05/27/2023 Active Jardiance 25 mg tablet TAKE 1 TABLET DAILY 90 tablet 11/28/2023 Active Dexcom G6 Transmitter DeviceIndications :Uncontrolled type 2 diabetes mellitus with hyperglycemia, without long-term current use of insulin CHANGE EVERY 90 DAYS 1 each 3 12/13/2023 Active Blood-Glucose Sensor (Dexcom G7 Sensor) Device Q 10 days as instructed 9 each 12/13/2023 Active Insulin Tresiba FlexTouch U-100 100 unit/mL (3 mL) Insulin PenIndications:ty pe 2 diabetes mellitus Inject 30-40 Units subcutaneously daily. Indications: type 2 diabetes mellitus 45 mL 3 12/13/2023 Active Active Problems Problem Noted Date Diagnosed Date Vitamin D deficiency 05/26/2021 MAGDALENE on CPAP 02/13/2021 Type 2 diabetes mellitus wit h complication, without long-term current use of insulin 11/14/2018 Psoriatic arthritis 08/25/2018 High risk medication use 08/25/2018 Misha's thyroiditis 2016 Anxiety 2016 Psoriasis 03/12/2011 Encounters Date Type Department Care Team Description 12/13/2023 9:00 AM EDT TH Visit (TeleHealth) [place] [address] lBade Martinez MD Uncontrolled type 2 diabetes mellitus with hyperglycemia, without long-term current use of insulin; Misha's thyroiditis; Vitamin D deficiency; Hypertriglyceridemia 12/13/2023 [place] [phone] Reva Sun Prior Authorization 12/12/2023 [place] [address] Blade Martinez MD Uncontrolled type 2 diabetes mellitus with hyperglycemia, without long-term current use of insulin 12/09/2023 [place] [address] Crystal Woodard RN 11/27/2023 [place] [address] Marianela Xiao MD 11/25/2023 [place] [address] Darnell Mosquera MD from Last 3 Months Immunizations Name Administration Dates Next Due Influenza PF, Split 03/18/2017,04/22/2011 Influenza Vaccine, Whole 05/16/2005 Pneumococcal Conjugate (Prevnar 13) 03/18/2017 Pneumococcal Polysaccharide (Pneumovax 23) 08/26 Family History Medical History Relation Comments Eczema Maternal Aunt Eczema Maternal Grandfather Relation Status Comments Maternal Aunt Maternal Grandfather Social History Tobacco Use Types Packs/Day Years Used Date Smoking Tobacco: Former Cigarettes Q uit: 03/21/2015 Smokeless Tobacco: Never Alcohol Use Standard Drinks/Week Comments No 0 (1 standard drink = 0.6 oz pur e alcohol) Sex and Gender Information Value Date Recorded Sex Assigned at Not on file Gender Identity Not on file Sexual Orientation Not on file Last Filed Vital Signs Vital Sign Reading Time Taken Comments Blood Pressure 120/80 12/13/2023 9:06 AM EDT Pulse 70 12/13/2023 9:06 AM EDT Temperature 36.7 ??C (98.1 ??F) 01/13/2021 1:14 PM ED T Respiratory Rate 12 12/13/2023 9:06 AM EDT Oxygen Saturation 98% 01/13/2021 1:14 PM EDT Inhaled Oxygen Concentration - - Weight 96.6 kg (213 lb) 12/13/2023 9:06 AM EDT Height 160 cm (5' 3) 12/13/2023 9:06 AM EDT Body Mass Index 37.73 12/13/2023 9:06 AM EDT Plan of Treatment Health Maintenance Due Date Last Done Comments CT Colonography 1972 Colonoscopy 1972 Colorectal Cancer Screening 1970 FIT DNA 1972 FIT 1972 Sigmoidoscopy (10 year) with FIT yearly 1972 Sigmoidoscopy 1972 DM Opthalmology Exam 1982 HIV screen 1990 Hepatitis C Screening 1990 Hepatitis B vaccine (0-59 yr s) (1) 12/25/1991 Tdap adult 12/25/1991 Tetanus vaccine 12/25/1991 HPV test 2002 PAP Smear 2002 Breast Cancer Share Decision Needed 2012 Breast Cancer screening 2012 DM Hemoglobin A1c 04/10/2019 01/08/2019, , 07/24/2018, Additional history exists DM Creatinine yearly 01/09/2020 01/08/2019, 07/24/2018, 03/18/2017, Additional history exists DM Urine Microalbumin yearly 01/09/2020 01/08/2019 Zoster vaccine (1 of 2) 2022 Covid-19 Vaccine (1 - 2022-2 4 season) 2023 Influenza (Flu) vaccine (1 o f 1 - Influenza standard series) 02/16/2024 03/18/2017, 04/22/2011, 05/16/2005 Pneumococcal Vaccine: At-Ris k 5-64yrs (3 of 3 - PPSV23 or PCV20) 2037 08/26/2018, 03/18/2017 Lipid Screening Discontinued 08/13/2016 Procedures Procedure Name Priority Date/Time Associated Diagnosis Comments LAB SCAN 12/10/2023 12:00 AM EDT U ALBUMIN/CRE RATIO Routine 01/08/2019 1 1:29 AM EDT Type 2 diabetes mellitus without complication, without long-term current use of insulin HEMOGLOBIN A1C STAT 01/08/2019 11:25 AM EDT Type 2 diabetes mellitus without complication, without long-term current use of insulin CREATININE STAT 01/08/2019 11:25 AM EDT Type 2 diabetes mellitus without complication, without long-term current use of insulin LIPID PANEL (REFLEX DIRECT LDL) Routine 08/13/2016 Transaminitis from Last 3 Months or Most Recently Relevant to Health Maintenance Results * Scan Doc: Lab (12/10/2023 12:00 AM EDT) Narrative 12/10/2023 12:00 AM EDT Ordered by an unspecified provider. Scanning Provider MEDIA MGR SCAN EXT O RDR/RSLT * U Albumin/Cre Ratio (01/08/2019 11:29 AM EDT) Albumin / Creatinin Ratio, Urine 7 0 - 29 mcg/mg Cr [facility] Comment: Reference Ranges: <30 mcg/mg: Normal 30-300 mcg/mg: Moderately increased albuminuria.* >300 mcg/mg: Severely increased albuminuria. * ACEI or ARB recommended if diabetic; suggested if BP>130/80 without diabetes ACEI or ARB strongly recommended if diabetic; recommended if BP>130/80 without diabetes Two of three specimens collected within a 3 to 6 month period should be abnormal before considering a patient to have albuminuria. Transient causes: exercise, fever, infection, CHF, marked hyperglycemia or hypertension. Persistent albuminuria indicates CKD and is an independent risk factor for ASCVD. ADA Standards of Medical Care in Diabetes-2016; KDIGO: Kidney International Supplements (2012) 2, 357? 362 Albumin, Urine 6.9 mg/L [facility] Creatinine, Urine 95 mg/dL [facility] Urine specimen (specimen) 01/08/2019 11:29 AM EDT 01/08/2019 11:37 AM EDT Narrative Resulting Agency Comment Spec In Lab Yareli Morales MD URINE ORDERABLES [facility] [place] [place] [address] * (ABNORMAL) Creatinine (01/08/2019 11:25 AM EDT) Creatinine 0.68(L) 0.70 - 1.20 mg/dL [facility] Est Glomerular Filtration Rate 105 >=60 mL/min/1.7 3 m?? [facility] Comment: The eGFR was calculated using the CKD-EPI equation. As with all creatinine based estimates of kidney function, eGFR values calculated with the CKD-EPI equation are not accurate in patients with acute kidney failure, extremes of body mass or the acutely ill. [email or web address] eGFR 122 >=60 mL/min/1.7 3 m?? [facility] Comment: The eGFR was calculated using the CKD-EPI equation. As with all creatinine based estimates of kidney function, eGFR values calculated with the CKD-EPI equation are not accurate in patients with acute kidney failure, extremes of body mass or the acutely ill. [email or web address] Blood specimen (specimen) 01/08/2019 11:25 AM EDT 01/08/2019 11:29 AM EDT Narrative Resulting Agency Comment Spec In Lab Yareli Morales MD CHEMISTRY ORDERABLES [facility] [place] [address] * (ABNORMAL) Hemoglobin A1c (01/08/2019 11:25 AM EDT) Hemoglobin A1c 7.5(H) 4.3 - 5.6 % [facility] Comment: Reference Range: 4.3 - 5.6% 5.7 - 6.4% - Increased Risk of Developing Diabetes Mellitus >= 6.5% - Consistent with diagnosis of Diabetes Mellitus In the absence of hyperglycemia (i.e. plasma glucose > 200 mg/dL) or classic symptoms of hyperglycemia a repeat measurement of HbA1c should be performed on a separate sample to confirm the diagnosis. Diagnosis and Classification of Diabetes Mellitus, Diabetes Care 2013; 36: Suppl. 1, S67-93 Estimated Average Glucose 169 mg/dL [facility] Comment: eAG equivalents for HbA1c percentages: HbA1c(%) ?eAG(mg/dL) 6.0 ?126 6.5 ?140 7.0 ?154 7.5 ?169 8.0 ?183 8.5 ?197 9.0 ?212 9.5 ?226 10.0 ? 240 Limitations: The eAG calculation has not been validated on women, individuals below 18 years old and above 70 years old, and individuals with hemoglobinopathies. Additional resources are available on the ADA website. Grayson TAYLOR, Suresh J, Brianna R, et al. ??Translating the A1C assay into estimated average glucose values. ??Diabetes Care 2008:31(8):6821-3879. Blood specimen (specimen) 01/08/2019 11:25 AM EDT 01/08/2019 11:29 AM EDT Narrative Resulting Agency Comment Spec In Lab Yareli Morales MD CHEMISTRY ORDERABLES [facility] [place] [address] * (ABNORMAL) Lipid Panel (08/13/2016) Cholesterol, Total 193(Exter nal Lab) mg/dL Triglyceride 180(EXTER NAL/ABN) mg/dL HDL Cholesterol 34(IDENTITY MANAGEMENT DEVELOPER AL/ABN) mg/dL Glucose 108(EXTER NAL/ABN) Blood specimen (specimen) 08/13/2016 Yareli Morales MD CHEMISTRY ORDERABLES from Last 3 Months or Most Recently Relevant to Health Maintenance Advance Directives * Full Code (Latest Code Status on File) Date Activated Date Inactivated Comments 05/21/2016 5:24 PM 05/27/2016 3:43 PM Question Answer Comments Does patient have capacity to make decision: Yes Care Teams Nuclear Reactor Technician Relationship Specialty Start Date End Date Leonor Hendricks MD [address] [place] [address] PCP - General Family Medicine 11/27/16
--- OUTSIDE RECORDS SUMMARY | 2024-02-04 01:23 | XMS_ITS | Encounter Summary ---
[place] [address] Care Team Providers Care Vac Press Operator Name Role Phone Leonor Hendricks MD Primary Care Provider [phone] Encounter Details Date Type Department Care Team (Latest Contact Info) Description 2022 Travel Social History Tobacco Use Types Packs/Day Years [...] on filedocumented in this encounter Care Teams Vac Press Operator Relationship Specialty Start Date End Date Leonor Hendricks MD [address] [place] [address] PCP - General Family Medicine 11/27/16 documented as of this encounter
--- OUTSIDE RECORDS SUMMARY | 2024-02-04 01:23 | XMS_ITS | Encounter Summary ---
Author Organization [facility] Address [address] [place] [address] Care Team Providers Care Dental Financial Coordinator Name Role Phone Unknown, Provider Primary Care Provider [phone] Encounter Details Date Type Department Care Team ([facility] st Contact Info) Description 09/27/2016 Results Only [facility] [phone] Toni Aguero MD [address] [facility] [address] [place] [phone] Social History Tobacco Use Types Packs/Day Years Used Date Smoking Tobacco: Never Assessed Sex and Gender Information Value Date Recorded Sex Assigned at Not on file Gender Identity Not on file Sexual Orientation Not on file documented as of this encounter Plan of Treatment Not on file documented as of this encounter Procedures Procedure Name Priority Date/Time Associated Diagnosis Comments SURGICAL PATHOLOGY Routine 09/27/2016 8:59 EDT documented in this encounter Results * SURGICAL PATHOLOGY (09/27/2016 8:59 EDT) Pathology Report: SURGICAL PATHOLOGY REPORT Reports generated via electronic interface contain original data; however they are lacking the format of the original report. Caution should be taken when reading/interpret ing unformatted reports. Name: ? RUSLAN CHAIREZ ? Accession #: ? [id number] ? : ? 1970 (Age: 45) ??F ? Collect Date: ? 09/27/2016 ? Location: ? [facility] ? Receive Date: ? 09/28/2016 ? Provider: MARLENY AGUERO MD Copy to: NICK MACKDERICK DO ? Final Pathologic Diagnosis: A. DUODENUM, SECOND PORTION, BIOPSY: - Duodenal mucosa with no specific pathologic features. B. STOMACH, ANTRUM AND BODY, BIOPSY: - Gastric antral mucosa with mild reactive (chemical) gastropathy. - Gastric body mucosa with no specific pathologic features. C. ESOPHAGUS, DISTAL, BIOPSY: - Squamocolumnar junction mucosa with reflux esophagitis. - Negative for intestinal metaplasia; negative for dysplasia. ?? Document reviewed and electronically signed by: JHONATAN ANSARI MD Report ??Date: 09/28/2016 17:33 By the signature above, the attending physician certifies that he/she has personally conducted a gross and/or microscopic examination of the described specimens and rendered or confirmed the above diagnosis. Specimen(s) Received: A. ??2nd portion of duodenum B. ??Antrum and body C. ??Distal esophagus Clinical History: Gastritis; esophagitis; clinical diagnosis code: ??R78.79, R10.13 Gross Description: A. ?Received in formalin labelled with proper patient identification (initials B, W) and A. 2nd portion of duodenum are three sylvester-yellow tissues (0.1 x 0.1 x 0.1 cm, 0.2 x 0.1 x 0.1 cm and 0.3 x 0.1 x 0.1 cm). Entirely submitted in A1. B. ?Received in formalin labelled with proper patient identification (initials B, W) and B. antrum + body are four light sylvester-yellow tissues (0.1 x 0.1 x 0.1 cm to 0.5 x 0.1 x 0.1 cm). Entirely submitted in B1 and B2 C. ?Received in formalin labelled with proper patient identification (initials B, W) and C. distal esophagus are two light sylvester-yellow tissues (0.2 x 0.1 x 0.1 cm and 0.7 x 0.1 x 0.1 cm). Entirely submitted in C1. Patricia Rivas 09/28/2016 10:06 AM End of Report [facility] 09/27/2016 8:59 EDT 09/28/2016 8:59 EDT Toni Aguero MD PATHOLOGY ORDERABLES [facility] [address] [place] [address] documented in this encounter Visit Diagnoses Not on filedocumented in this encounter Care Teams Dental Financial Coordinator Relationship Specialty Start Date End Date Unknown, Provider, PCP - General 04/21/15 09/30/16 documented as of this encounter
--- OUTSIDE RECORDS SUMMARY | 2024-02-04 01:23 | XMS_ITS | Encounter Summary ---
Author Organization [facility] [place] [address] Care Team Providers Care Weather Strip Mechanic Name Role Phone Leonor Hendricks MD Primary Care Provider [phone] Encounter Details Date Type Department Care Team (Latest Contact Info) Description 01/22/2023 11:00 AM EDT TH Visit (TeleHealth) [place] [address] Blade Martinez MD [facility] [place] [address] Uncontrolled type 2 diabetes mellitus with hyperglycemia, without long-term current use of insulin; Misha's thyroiditis; Vitamin D deficiency; Type 2 diabetes mellitus with hyperglycemia, with long-term current use of insulin; Hypertriglyceridemia Social History Tobacco Use Types Packs/Day [...] Sign Reading Time Taken Comments Blood Pressure - - Pulse 100 01/22/2023 11:00 AM EDT Temperature - - Respiratory Rate 14 01/22/2023 11:00 AM EDT Oxygen Saturation - - Inhaled Oxygen Concentration - - Weight 99.3 kg (219 lb) 01/22/2023 11:00 AM EDT Height 162.6 cm (5' 4) 01/22/2023 11:00 AM EDT Body Mass Index 37.59 01/22/2023 11:00 AM EDT documented in this encounter Patient Instructions * Patient Instructions* Blade Martinez MD - 01/22/2023 11:00 AM EDT PLAN: 1. Type 2 DM --To continue Tresiba pen 34 units (not lantus per insurance). She is allowed to titrate the dose down by 2-4 units based on fasting BG target of 90-140 mg/dl as instructed. -- To increase Mounjaro from 10 mg weekly to 12.5 mg sc weekly for 4 weeks and then 15 mg sc weeklyas tolerated --To cont Humalog pen for correction of high BG qid as needed and ok (to use only half dose correction at bedtime). --continue Metformin 1000mg BID --continue Jardiance 25mg daily - Continue using Dexcom G6 CGM I am recommending this patient continue [...] in 3 months, she will do at [facility] 3. History of Misha's thyroiditis with obesity (BMI ~40) - TSH 3.99 in Jul 2018 at [...] - To continue vitamin D 50,000 iu daily weekly for severe vitD deficiency - recheck lab in 3-6 mo 5. Follow-up 6 months after next lab test (standing lab orders q 3 mo for A1c, lipids, and 25vitamin D) and TSH in 3 mo at next lab draw at [facility] lab as well. Blade Martinez MD, PhD, FACE, FACP documented in this encounter Progress Notes * Blade Martinez MD - 01/22/2023 11:00 AM EDT Endocrinology Clinic Follow-up Visit Name: Jesika Ryan : 1970 PCP: Leonor Hendricks MD Date: 01/22/23 Reason for Visit: Follow-up visit for Type 2 diabetes on insulin plus pills/GLP1 and also hypertriglyceridemia (TG > 2000s => better 374 on 11/22/20) and then 400s. She used to see Dr. Ornelas 10/26/20 and was transferred under my care from since 11/25/20. BMI has trended down from 40 to37 with GLP1 weekly with wt down from 235 to 219 lbs now. Patient verbally consents to this [...] - Lantus 20 units daily=> Tresiba pen 34 u qAM and humalog TID for meals plus correction per sliding scale as needed. -- The Vazquez CGM was too expensive for her in the past so we switched to Dexcom CGM since 11/25/20 ($55/mo) to help closely monitor BG. -- She has been using basal-bolus insulin 4x/day since Sep 2020 --Since 01/13/21 visit, we switched victoza to ozempic 0.25-0.5 mg sc weekly and then increased to 1mg sc weekly without problem. She last lost 4+9lbs from 235 to 222 lbs over 8 months --She had Covid19 admitted in ICU for 8 days in Feb 2021 at [facility], on BIPCP but no need for intubation with full recovery except for the loss of smell per pt. --She tried to taper off basaglar but noted higher fasting BG >150 with A1c back up to 8.5% now (09/18/21) plus higher TG 746, so shehas been taking Tresiba en 34u qAM lately DM regimen: Date of Diagnosis: December 2017, using Dexcom CGM Tresiba pen 34u qAM to keep fasting BG 90-150 (changed [...] 1000 mg bid Jardiance 25 mg qd Ozempic pen 1 mg sc weekly => switched to Monujaro 10 mg sc weekly recently to keep her A1c & weight down further. She has been asymptomatic without abdominal pain. N/V and tried to eat low fat low carb plus medication to help lower TG from >2,000 to 300s after a few months which is excellent. As her TG <500, we resumed victoza pen => switched to ozempic pen weekly=> then Mounjaro weekly as above. She used to lose wt down with ozempic but then plateau even after lots of walking daily and tried to limit portion size and calory. So we tried to switch to Mounjaro weekly pen since last visit but she just got the pen to use recently. BMI has trended down from 40 to 37 with wt down from 235 to 222 lbs last visit and 219 lbs now. She has no FH of hyperTG that she is aware of. No etoh and already quit smoking 4 yrs ago. Lipid Rx regimen: Fenofibrate 145 mg qd -since 10/11/20 Crestor 20 mg qd Fish oil 2,000 mg 2x daily Very low fat and controlled carb diet Labs at [facility] Date 10/25/20 11/22/20 01/03/21 Glucose 184 210 GFR 60 Cr 0.8 Triglyceride 1,037 374 380 Outside lab at [facility] Date 05/25/21 09/18/21 11/29/21 07/13/22 01/18/23 A1c [...] ophtho evaluation - sees Dr. Martin at [facility] [place] [facility], no DR (August 2018). 4) CV disease [...] except as noted per HPI. PHYSICAL EXAM: Pulse 100 Resp 14 Ht 162.6 cm (5' 4) Wt 99.3 kg (219 lb) BMI 37.59 kg/m?? Appearance: obese, very pleasant, NAD HEENT: PERRLA, EOMI, no lid lag or exophthalmos Neck: supple, no goiter visible Ext: normal skin appearance no edema Neuro: no weakness, non-focal, no facial asymmetry. Outside lab at [facility] Date 05/25/21 09/18/21 11/29/21 07/13/22 01/18/23 05/24/23 A1c 8.1, better (was 9.0% in December) 8.5% 8.2% 8.4% 7.5% 7.4% TSH 2.79, ok for thyroid 1.88 3.16 2.65 - 2.92 Comprehensive chemistry - ok (Cr 0.7, Ca 9.4, K 4.0), except for glucose 184H TC/LDL 162/- 178/54 186/71 153/60 152/62 207/77 TG/HDL 518H/28L 746H/25L 723H/27L 426/21 426/29L 614H/32 => to eat very low fat/low carb diet & keep A1c down to lower TG B12 321, low normal (normal 250-1200) Vitamin D 13.2, very low 19.7 62 27.2 31.5 (normal 30-100) on tapering vitamin D 50,000 iu q 2 weeks in summer => weekly dose in fall & winter Outside lab on 11/29/21 showed slightly better A1c 8.2% (was 8.5% in early September), normal TSH at 3.16 for thyroid, stable lipids with cholesterol 186, excellent LDL 71 but low of the good HDL ar 27 and still high triglyceride at 723 (was 746 in September). Your vitamin D is normalized at 62 after the loading dose, up from 13.2-19.7 prior (normal 30-100).So, you should taper vitamin-D to 1 capsule every 2 weeks in summer and then back to 1 capsule weekly in fall and winter months. Outside lab on 05/24/23 showed slightly better A1c 7.4% (was 7.5-8.5 over the past year), normal TSHat 2.92 for thyroid, and slightly high cholesterol 207 (normal <200) not too far off with excellent LDL 77 but still high triglyceride 614 and low of the good HDL 32 (was 29). 25vitamin D was low at 24.1 (normal 30- 100) => to increase vitamin-D 50,000 iu 2 capsules weekly in winter months and taper to weekly in summer. Blade Brantley ASSESSMENT: 52 y.o. lady who has had type 2 diabetic since December 2017 (a1c 7.5- 11.2% range), better control with the addition of GLP1 (initially using victoza) but had to hold the medication temporarily due to risk of pancreatitis with severe hypertriglyceridemia in 2,000s in Sep 2020. She switched GLP1 to basal- bolus insulin which helped control her BG and TG down quickly with recent triglycerideleveld continued to improve, from >2000 to 374 after 2 months and then stable in 300s-400s sinceJu2020. She is on fenofibrate 145 mg daily, crestor 20 mg qd. and fish oil (lovaza) in addition to very low fat/low carb diet and high-intensity statin. We switched her victoza to ozempic in December 2020 and then Mounjaro 10 mg weekly since spring 2022. She cont basal-bolus insulin regimen with goal to keep A1c <7% andl triglycerides under 500 consistently. She has reduced insulin need after using Ozempic pen and knows to adjust Humalog based on carb intake and extra for high BG before mealsand at bedtime as needed. Target BG 80-150 range pre-meal and <180-200 after eating to keep A1c & TG down further. BMI has trended down from 40 to 37 with wt down from 235 to 219 lbs now. Since her triglyceride has been better trending down to <500 consistently, it's ok to continue using GLP-1 pen weekly further. Will closely monitor lab again every 3 months until stable. PLAN: 1. Type 2 DM --To continue Tresiba pen 34 units (not lantus per insurance). She is allowed to titrate the dose down by 2-4 units based on fasting BG target of 90-140 mg/dl as instructed. -- To increase Mounjaro from 10 mg weekly to 12.5 mg sc weekly for 4 weeks and then 15 mg sc weeklyas tolerated --To cont Humalog pen for correction of high BG qid as needed and ok (to use only half dose correction at bedtime). --continue Metformin 1000mg BID --continue Jardiance 25mg daily - Continue using Dexcom G6 CGM I am recommending this patient continue [...] in 3 months, she will do at [facility] 3. History of Misha's thyroiditis with obesity (BMI ~40) - TSH 3.99 in Jul 2018 at [...] dropped to 27.7 (normal 30-100), - To increase vitamin D 50,000 iu 2 capsules weekly in winter and taper to 1 capsule weekly in summer months for severe vitD deficiency - recheck lab in 3-6 mo 5. Follow-up 6 months after next lab test (standing lab orders q 3 mo for A1c, lipids, and 25vitamin D) and TSH in 3 mo at next lab draw at [facility] lab as well. Blade Martinez MD, PhD, FACE, FACP documented in this encounter Miscellaneous Notes * Addendum Note - Blade Martinez MD - 01/22/2023 11:00 AM EDTAddended by: BLADE MARTINEZ on: 05/27/2023 02:05 PM Modules accepted: Orders documented in this encounter Plan of Treatment Scheduled Orders Name Type Priority Associated Diagnoses Orde r Schedule TSH Lab STAT Uncontrolled type 2 diabetes mellitus with hyperglycemia, without long-term current use of insulin Misha's thyroiditis Vitamin D deficiency Type 2 diabetes mellitus with hyperglycemia, with long-term current use of insulin Hypertriglyceridemia Expected: 03/23/2023 (Approximate), Expires: 01/23/2024 documented as of this encounter Visit Diagnoses Diagnosis Uncontrolled type 2 diabetes mellitus with hyperglycemia, without long-term current use of insulin Misha's thyroiditis Chronic lymphocytic thyroiditis Vitamin D deficiency Unspecified vitamin D deficiency Type 2 diabetes mellitus with hyperglycemia, with long-term current use of insulin Hypertriglyceridemia Pure hyperglyceridemia documented in this encounter Care Teams Weather Strip Mechanic Relationship Specialty Start Date End Date Leonor Hendricks MD [address] [place] [id number] PCP - General Family Medicine 11/27/16 documented as of this encounter
--- OUTSIDE RECORDS SUMMARY | 2024-02-04 01:23 | XMS_ITS | Encounter Summary ---
Author Organization [facility] [place] [address] Care Team Providers Care Digital Content Marketing Manager Name Role Phone Leonor Hendricks MD Primary Care Provider [phone] Reason for Visit * Reason Comments Medication Refill Encounter Details Date Type Department Care Team (Late st Contact Info) Description 01/23/2023 [place] [address] Blade Martinez MD [facility] [place] [address] Uncontrolled type 2 diabetes mellitus with hyperglycemia, [...] insulin documented in this encounter Care Teams Digital Content Marketing Manager Relationship Specialty Start Date End Date Leonor Hendricks MD [address] [place] [address] PCP - General Family Medicine 11/27/16 documented as of this encounter
--- OUTSIDE RECORDS SUMMARY | 2024-02-04 01:23 | XMS_ITS | Encounter Summary ---
Author Organization [facility] Address [address] [place] [address] Care Team Providers Care Sample Book Maker Name Role Phone Unavailable Primary Care Provider Unavailabl e Encounter Details Date Type Department Care Team (Late st Contact Info) Description 04/14/2007 Results Only [facility] - Maple conversion [address] [place] [address] Antonieta Cedeno, NATALIE Social History Tobacco Use [...] Priority Date/Time Associated Diagnosis Comments CYTOPATHOLOGY Routine 04/14/2007 0:00 EDT documented in this encounter Results * CYTOPATHOLOGY (04/14/2007 0:00 EDT) Pathology Report: CYTOPATHOLOGY REPORT Reports generated via electronic interface contain original data; however they are lacking the format of the original report. Caution should be taken when reading/interpreti ng unformatted reports. Name: ? RUSLAN CHAIREZ ? Accession #: ? [id number] : ? 1970 (Age: 36) ??F ?Collect Date: ? 04/14/2007 Location: ? [facility] ? Receive Date: ? 04/15/2007 Provider: ?ANTONIETA CEDENO REHANGER Copy to: ? Specimen/Source: ?ThinPrep Pap Test, Cervix/Endocervix, processed on [employer] ThinPrep Imaging System, with manual evaluation Last Menstrual Period: ? 04/07/07 Hormonal/Contracep tive Status: ? Tubal ligation Other: ? HPVA - HPV testing requested if ASC-US on the current ThinPrep Pap test. ? SPECIMEN ADEQUACY ? Satisfactory for Evaluation - transformation zone component present GENERAL CATEGORIZATION ? Negative for Intraepithelial Lesion or Malignancy INTERPRETATION ? Reactive cellular changes associated with inflammation present (includes repair). ? Document reviewed and electronically signed by: ? Cammy Santiago MD ? Report Date: ??04/23/2007 09:54 End of Report OUMAR FRANKS 04/14/2007 04/15/2007 Antonieta Cedeno NP PATHOLOGY ORDERABLES Performing Organization Address City/State/[facility] Co de Phone Number OUMAR FRANKS [address] [place] [address] documented in this encounter Visit Diagnoses Not on filedocumented in this encounter
--- OUTSIDE RECORDS SUMMARY | 2024-02-04 01:23 | XMS_ITS | Referral Summary ---
Author Organization [facility] Address [address] [place] [address] Care Team Providers Care Institutional Aide Name Role Phone Leonor Hendricks MD Primary Care Provider [phone] Toni Aguero MD Unavailable Social History Tobacco Use Types Packs/Day Years Used Date Smoking Tobacco: Never Assessed Sex and Gender Information Value Date Recorded Sex Assigned at Not on file Gender Identity Not on file Sexual Orientation Not on file Plan of Treatment Not on file Care Teams Institutional Aide Relationship Specialty Start Date End Date Leonor Hendricks MD [address] [place] [phone] PCP - General 06/30/20 Toni Aguero MD [address] [place] [address] [phone] 09/27/17
--- OUTSIDE RECORDS SUMMARY | 2024-02-04 01:23 | XMS_ITS | Encounter Summary ---
[place] [address] Care Team Providers Care Hair Salon Manager Name Role Phone Leonor Hendricks MD Primary Care Provider [phone] Reason for Visit * Reason Onset Date Comments Prior Authorization 12/13/2023 Encounter Details Date Type Department Care Team (Late st Contact Info) Description 12/13/2023 Telephone [place] [phone] Reva Sun Prior Authorization Social History Tobacco [...] * Telephone Encounter - Reva Sun - 12/18/2023 11:35 AM EDT PA Outcome: PA Approval Medication Prior Authorization Approval Approved: Dexcom G7 Sensors Start Date: 12/13/23 End Date: 12/17/24 Case/Reference #: [id number] Approval Letter will be scanned into media once received. * Telephone Encounter - Reva Sun - 12/13/2023 2:15 PM EDT Previous Medications Tried Medication: Humalog 4x daily Medication: Tresiba 1x daily Medication: Testing 4x daily Medication: Dexcom G6 * Telephone Encounter - Reva Sun - 12/13/2023 2:12 PM EDT Medication Prior Authorization Chaidarun Medication name/dose/directions: Dexcom G7 Sensor Rationale for request: Type II DM (E11.65) Health plan: [employer] ([employer]) [place]: [id number] Authorizing accounting representative name: Naima Sent to health plan on: 12/13/23 documented in this encounter Plan of Treatment Not on file documented as of this encounter Visit Diagnoses Not on filedocumented in this encounter Care Teams Hair Salon Manager Relationship Specialty Start Date End Date Leonor Hendricks MD [address] [place] [address] PCP - General Family Medicine 11/27/16 documented as of this encounter
--- OUTSIDE RECORDS SUMMARY | 2024-02-04 01:23 | XMS_ITS | Encounter Summary ---
Author Organization [facility] Address [address] [place] [address] Care Team Providers Care Pattern Changer And Repairer Name Role Phone Leonor Hendricks MD Primary Care Provider [phone] Toni Aguero MD Unavailable Encounter Details Date Type Department Care Team (Late st Contact Info) Description 06/30/2020 Lab Requisition [facility] Pathology & Laboratory Medicine - [address] [address] Fely Miramontes [address] [place] [address] [place] [address] Encounter for other general examination [...] Priority Date/Time Associated Diagnosis Comments SURGICAL PATHOLOGY Today 06/30/2020 13 :30 EST Encounter for other general examination documented in this encounter Results * SURGICAL PATHOLOGY (06/30/2020 13:30 EST) Final Diagnosis A. ENDOCERVIX, CURETTAGE: - Scant benign endocervical and squamous mucosa. B. ENDOMETRIUM, CURETTAGE: - Scant inactive endometrium with tubal metaplasia and breakdown. See comment. - Scant benign endocervical tissue. 07/05/2020 15:26 [facility] Diagnosis Comment The paucity of intact endometrial fragments precludes accurate vwhxl-wy-[id number] ratio assessment. No cytologic atypia is seen. 07/05/2020 15:26 [facility] Attestation There was significant resident/fellow involvement in the diagnostic evaluation of this case. By the signature below, the attending physician certifies that they have personally conducted a gross and/or microscopic examination of the described specimens and rendered or confirmed the above diagnosis. 07/05/2020 15:26 [facility] at 1525 Clinical History Uterine bleeding 07/05/2020 15:26 [facility] Gross Description A. Received in formalin labelled with proper patient identification (initials G, W) and endocervical curettings is an aggregate of blood-tinged mucus, 2.5 x 2.0 x 1.9 cm. Entirely submitted in A1-A5. B. Received in formalin labelled with proper patient identification (initials G, W) and endometrial curettings is an aggregate of blood-tinged mucus with scant admixed sylvester-brown soft tissue aggregating 2.0 x 1.9 x 1.8 cm. Entirely submitted in B1-B4. CORNEL MARTINEZ(ASCP) 07/01/2020 11:46 07/05/2020 15:26 [facility] Resident/[place] w: Harry Rivero DO 07/05/2020 15:26 [facility] Performing Lab [facility] 07/05/2020 15:26 [facility] Scanned Images 07/05/2020 15:26 [facility] Tissue ENTIRE ENDOMETRIUM / Unknown 06/30/2020 13:30 EST 06/30/2020 22:33 EST Tissue specimen (specimen) ENDOMETRIAL STRUCTURE / Unknown 06/30/2020 13:30 EST 06/30/2020 22:33 EST Fely Miramontes PATHOLOGY ORDERABLES [facility] [address] [place] [address] documented in this encounter Visit Diagnoses Diagnosis Encounter for other general examination documented in this encounter Additional Health Concerns Infection Onset Date Last Indicated Resolved Time COVID-19 02/16/2021 02/16/2021 03/18/2021 22:1 5 EDT documented as of this encounter Care Teams Pattern Changer And Repairer Relationship Specialty Start Date End Date Leonor Hendricks MD [address] [place] [phone] PCP - General 06/30/20 Toni Aguero MD [address] [place] [phone] 09/27/17 documented as of this encounter
--- OUTSIDE RECORDS SUMMARY | 2024-02-04 01:23 | XMS_ITS | Encounter Summary ---
[place] [address] Care Team Providers Care Hand Deicer Element Winder Name Role Phone Leonor Hendricks MD Primary Care Provider [phone] Reason for Visit * Reason Onset Date Comments Medication Refill 12/04/2022 Encounter Details Date Type Department Care Team (Late st Contact Info) Description 12/04/2022 [place] [address] Keyla Katz, RN Social History Tobacco Use [...] on filedocumented in this encounter Care Teams Hand Deicer Element Winder Relationship Specialty Start Date End Date Loenor Hendricks MD [address] [place] [address] PCP - General Family Medicine 11/27/16 documented as of this encounter
--- OUTSIDE RECORDS SUMMARY | 2024-02-04 01:23 | XMS_ITS | Encounter Summary ---
Author Organization [facility] [place] [facility] Address [address] [place] [address] Care Team Providers Care Peanut Salter Name Role Phone Unavailable Primary Care Provider Unavailabl e Encounter Details Date Type Department Care Team (Late st Contact Info) Description 12/15/2003 Results Only [facility] - Maple conversion [address] [place] [address] Antonieta Cedeno, NATALIE Social History Tobacco Use [...] Priority Date/Time Associated Diagnosis Comments CYTOPATHOLOGY Routine 12/15/2003 0:00 EDT documented in this encounter Results * CYTOPATHOLOGY (12/15/2003 0:00 EDT) Pathology Report: CYTOPATHOLOGY REPORT Reports generated via electronic interface contain original data; however they are lacking the format of the original report. Caution should be taken when reading/interpreti ng unformatted reports. Name: ? RUSLAN CHAIREZ ? Accession #: ? [id number] : ? 1970 (Age: 32) ??F ?Collect Date: ? 12/15/2003 Location: ? [facility] ? Receive Date: ? 12/16/2003 Provider: ?ANTONIETA CEDENO EQUITY STRUCTURER Copy to: ? Specimen/Source: ?ThinPrep Pap Test, Cervix/Endocervix Last Menstrual Period: ? 11/29/03 ? SPECIMEN ADEQUACY ? Satisfactory for Evaluation - transformation zone component present GENERAL CATEGORIZATION ? Negative for Intraepithelial Lesion or Malignancy ? Document reviewed and electronically signed by: ? YAJAIRA Sierra(ASCP) ? Report Date: ??12/23/2003 09:10 End of Report OUMAR FRANKS 12/15/2003 12/16/2003 Antonieta Cedeno NP PATHOLOGY ORDERABLES OUMAR FRANKS [address] [place] [address] documented in this encounter Visit Diagnoses Not on filedocumented in this encounter
--- OUTSIDE RECORDS SUMMARY | 2024-02-04 01:23 | XMS_ITS | Encounter Summary ---
Author Organization [facility] Address [address] [place] [address] Care Team Providers Care Station Cook Name Role Phone Unavailable Primary Care Provider Unavailabl e Encounter Details Date Type Department Care Team (Late st Contact Info) Description 04/12/2015 Results Only [facility]- [facility] [phone] Debra Joe MD [address] [place] [address] [place] [address] Social History Tobacco Use Types Packs/Day Years [...] Diagnosis Comments PAP TEST- RESULT ONLY Routine 04/12/2015 0:00 EDT documented in this encounter Results * PAP TEST- RESULT ONLY (04/12/2015 0:00 EDT) Pathology Report: CYTOPATHOLOGY REPORT Reports generated via electronic interface contain original data; however they are lacking the format of the original report. Caution should be taken when reading/interpreti ng unformatted reports. Name: ? RUSLAN CHAIREZ ? Accession #: ? [id number] ? : ? 1970 (Age: 44) ??F ?Collect Date: ? 04/12/2015 ? Location: ? [facility] ? Receive Date: ? 04/13/2015 ? Provider: DEBRA JOE MD Copy to: NICK CANNON DO ? Final Report SPECIMEN ADEQUACY ? Satisfactory for Evaluation - transformation zone component present GENERAL CATEGORIZATION ? Negative for Intraepithelial Lesion or Malignancy ?? Last Menstrual Period: 04/06/15 Specimen/Source: ??Pap Test, Cervix/Endocervix, ThinPrep Imaging System with manual evaluation Document reviewed and electronically signed by: ? YAJAIRA Sierra(ASCP) ? Report ??Date: 04/15/2015 09:29 HPV with Pap Test ? Date Ordered: ? 04/15/2015 ? Status: ?? Signed Out ?Date Complete: ? 04/19/2015 ? By: ??System Interface ? Date Reported: ? 04/19/2015 ? Interpretation RESULT: Negative for HPV. No E6 or E7 mRNA is detected from HPV types 16,18,31,33,35, 39,45,51,52,56,58, 59,66, and 68 by marble ceiling installer mediated amplification. Comments Document reviewed and electronically signed by: ? System Interface ? Report date: 04/19/2015 By the signature above, the attending physician certifies that he/she has personally conducted a gross and/or microscopic examination of the described specimens and rendered or confirmed the above diagnosis. End of Report [facility] 04/12/2015 04/13/2015 Debra Joe MD PATHOLOGY ORDERABLES [facility] [address] [place] [address] documented in this encounter Visit Diagnoses Not on filedocumented in this encounter
--- OUTSIDE RECORDS SUMMARY | 2024-02-04 01:23 | XMS_ITS | Encounter Summary ---
Author Organization [facility] [place] [address] Care Team Providers Care Silk Blocker Name Role Phone Leonor Hendricks MD Primary Care Provider [phone] Reason for Visit * Reason Onset Date Comments Medication Refill 11/27/2023 Encounter Details Date Type Department Care Team (Late st Contact Info) Description 11/27/2023 Refill [place] [address] Marianela Xiao MD [facility] [place] [address] Social History Tobacco Use Types Packs/Day Years [...] on filedocumented in this encounter Care Teams Silk Blocker Relationship Specialty Start Date End Date Leonor Hendricks MD [address] [place] [address] PCP - General Family Medicine 11/27/16 documented as of this encounter
--- OUTSIDE RECORDS SUMMARY | 2024-02-04 01:23 | XMS_ITS | Encounter Summary ---
[place] [address] Care Team Providers Care Vessel Traffic Officer Name Role Phone Leonor Hendricks MD Primary Care Provider [phone] Reason for Visit * Reason Onset Date Comments Prior Authorization 01/24/2023 Encounter Details Date Type Department Care Team (Late st Contact Info) Description 01/24/2023 Telephone [place] [id number] Reva Sun Prior Authorization Social History Tobacco [...] * Telephone Encounter - Reva Sun - 01/24/2023 8:03 AM EDT Previous Medications Tried Medication: Mounjaro 2.5mg & 10mg Medication: Metformin Medication: Ozempic Medication: Victoza * Telephone Encounter - Reva Sun - 01/24/2023 8:02 AM EDT Medication Prior Authorization Chaidarun Medication name/dose/directions: Mounjaro 15mg/0.5mL - inject 0.5mL once weekly Rationale for request: Type II DM (E11.65) Health plan: [facility]) [place]: [id number] Authorizing customer sales representative name: Naima Sent to health plan on: 01/24/23 PA Outcome: PA Approval Quantity approved: Authorization number: [id number] Start date: 01/24/23 End date: 01/24/24 documented in this encounter Plan of Treatment Not on file documented as of this encounter Visit Diagnoses Not on filedocumented in this encounter Care Teams Vessel Traffic Officer Relationship Specialty Start Date End Date Leonor Hendricks MD [address] [place] [address] PCP - General Family Medicine 11/27/16 documented as of this encounter
--- OUTSIDE RECORDS SUMMARY | 2024-02-04 01:23 | XMS_ITS | Encounter Summary ---
Author Organization [facility] [place] [address] Care Team Providers Care Nurses' Association Executive Director Name Role Phone Leonor Hendricks MD Primary Care Provider [phone] Encounter Details Date Type Department Care Team (Late st Contact Info) Description 06/05/2023 Telephone [place] [address] Blade Martinez MD [facility] [place] [address] Social History Tobacco Use Types Packs/Day Years [...] encounter Miscellaneous Notes * Telephone Encounter - Leonel Escobedo RN - 06/05/2023 11:10 AM EST Returned call to the pharmacy. As this was a transfer, they needed to verify all of the information. This was done. They didn't need any additional information and this should be all set. * Telephone Encounter - Leonel Escobedo RN - 06/05/2023 11:08 AM EST Copied from CRM #[id number]. Topic: Specialty Dept CRMs - Medication Issues >> Jun 05, 2023 10:59 AM Chuy Lara wrote: Medication Issues Specialist Blade Martinez MD Relationship (if other than patient-full name): [employer] Reason for call: Medication Issue (if symptom based used Triage Subtopic) Message/information for the nurse: Pharmacy calling states they need clarification since medicationwas transferred to them from local pharmacy. Please advise Ref# [id number] Name of Medication: omega-3 acid ethyl esters (Lovaza) 1 gram capsule Issue with the medication: Clarification documented in this encounter Plan of Treatment Not on file documented as of this encounter Visit Diagnoses Not on filedocumented in this encounter Care Teams Nurses' Association Executive Director Relationship Specialty Start Date End Date Leonor Hendricks MD [address] [place] [address] PCP - General Family Medicine 11/27/16 documented as of this encounter
--- OUTSIDE RECORDS SUMMARY | 2024-02-04 01:23 | XMS_ITS | Encounter Summary ---
Author Organization [facility] Address [address] [place] [address] Care Team Providers Care Core Finisher Name Role Phone Unavailable Primary Care Provider Unavailabl e Encounter Details Date Type Department Care Team (Late st Contact Info) Description 03/19/2012 Results Only [facility] [address] [place], [place] [id number] Tristan Soliman F, DO [address] [place] [address] Social History Tobacco Use Types Packs/Day Years [...] Diagnosis Comments PAP TEST- RESULT ONLY Routine 03/19/2012 0:00 EDT documented in this encounter Results * PAP TEST- RESULT ONLY (03/19/2012 0:00 EDT) Pathology Report: CYTOPATHOLOGY REPORT Reports generated via electronic interface contain original data; however they are lacking the format of the original report. Caution should be taken when reading/interpreti ng unformatted reports. Name: ? RUSLAN CHAIREZ ? Accession #: ? [id number] ? : ? 1970 (Age: 41) ??F ?Collect Date: ? 03/19/2012 ? Location: ? [facility] ? Receive Date: ? 03/20/2012 ? Provider: TRISTAN SOLIMAN DO Copy to: ? Final Report SPECIMEN ADEQUACY ? Satisfactory for Evaluation - transformation zone component present GENERAL CATEGORIZATION ? Negative for Intraepithelial Lesion or Malignancy ?? Last Menstural Period: 03/10/12 Specimen/Source: ??Pap Test, Cervix/Endocervix, ThinPrep Imaging System with manual evaluation Document reviewed and electronically signed by: ? YAJAIRA Harrison(ASCP) ? Report ??Date: 03/26/2012 16:04 HPV with Pap Test ? Date Ordered: ? 03/26/2012 ? Status: ?? Signed Out ?Date Complete: ? 03/28/2012 ? By: ??System Interface ? Date Reported: ? 03/28/2012 ? Interpretation RESULT: Negative for HPV. No E6 or E7 mRNA is detected from HPV types 16,18,31,33,35, 39,45,51,52,56,58, 59,66, and 68 by fitness services manager mediated amplification. Comments Document reviewed and electronically signed by: ? System Interface ? Report date: 03/28/2012 By the signature above, the attending physician certifies that he/she has personally conducted a gross and/or microscopic examination of the described specimens and rendered or confirmed the above diagnosis. End of Report [facility] 03/19/2012 03/20/2012 Tristan Soliman DO PATHOLOGY ORDERABL ES Performing Organization Address City/State/[facility] Co de Phone Number [facility] [address] [place] [address] documented in this encounter Visit Diagnoses Not on filedocumented in this encounter
--- OUTSIDE RECORDS SUMMARY | 2024-02-04 01:23 | XMS_ITS | Encounter Summary ---
Author Organization [facility] Address [address] [place] [address] Care Team Providers Care Pool Attendant Name Role Phone Unknown, Provider Primary Care Provider [phone] Leonor Hendricks MD Primary Care Provider [phone] Toni Aguero MD Unavailable Encounter Details Date Type Department Care Team (Late st Contact Info) Description 06/27/2020 Lab Requisition [facility] [address] [place] [address] Outr Resulting Lab, Provider Social History Tobacco [...] Procedure Name Priority Date/Time Associated Diagnosis Comments DO NOT ORDER STANDALONE - BROAD COVID TEST Today 06/27/2020 15:12 EST COVID-19 TESTING Routine 06/27/2020 15:1 2 EST documented in this encounter Results * DO NOT ORDER STANDALONE - BROAD COVID TEST (06/27/2020 15:12 EST) COVID-19 rt-PCR Result NEGATIVE Negative 06/28/2020 20:45 EST [facility] Comment: 2019-novel Coronavirus (2019-nCoV) not detected by the qRT-PCR assay. Consider testing for other respiratory viruses or re-collecting for 2019-nCoV testing. Note: Optimum timing for peak viral levels during infections caused by 2019-nCoV have not been determined. Collection of multiple specimens from the same patient may be necessary to detect the virus. Limitations Positive results are indicative of active infection with SARS-CoV-2 but do not rule out bacterial infection or co-infection with other viruses. The agent detected may not be the definite cause of disease. In addition, detection of viral RNA may not indicate the presence of infectious virus or that SARS-CoV-2 is the causative agent for clinical symptoms. Negative results do not preclude SARS-CoV-2 infection and should not be used as the sole basis for patient management decisions. Negative results must be combined with clinical observations, patient history, and epidemiological information. False negative results may also occur if amplification inhibitors are present in the specimen or if inadequate numbers of organisms are present in the specimen. Optimum specimen types and timing for peak viral levels during infections caused by SARS-CoV-2 have not been fully determined. Collection of multiple specimens (types and time points) from the same patient may be necessary to detect the virus. The test was validated for use with upper respiratory specimens obtained via nasopharyngeal or oropharyngeal swabs in VTM, UTM, M4, M5, M6, saline, and MTM media. The performance of this test has not been established for other specimens. Specimens collected using other FDA recommended Specimen Collection Materials listed in the FDA COVID-19 Diagnostic Technologies communication (September 10, 2019) are processed with the caveat that they were not all validated for use with this test and the result must be interpreted in this context. Furthermore, a false negative results may occur if a specimen is improperly collected, transported or handled. If the virus mutates in the RT-PCR target region, SARS-CoV-2 may not be detected or may be detected less predictably. Inhibitors or other types of interference may produce a false negative result. An interference study evaluating the effect of common cold medications was not performed. This test is not FDA-cleared but its performance characteristics were established by our CLIA-certified, CAP-accredited, high complexity laboratory in accordance with CLIA regulations, [employer] (CAP) guidelines (Sep 03, 2019), and FDA guidance (Aug 15, 2019). This test is only for use under the Food and Drug Administration's Emergency Use Authorization. Swab ENTIRE NASOPHARYNX / Unknown 06/27/2020 15:12 EST 06/27/2020 21:06 EST Provider Outr Resulting Lab MICROBIOLOGY - GENERAL ORDERABLES [facility] [place], [place] * COVID-19 TESTING (06/27/2020 15:12 EST) COVID-19 rt-PCR Result NEGATIVE Negative 06/28/2020 21:40 EST [facility] Comment: 2019-novel Coronavirus (2019-nCoV) not detected by the qRT-PCR assay. Consider testing for other respiratory viruses or re-collecting for 2019-nCoV testing. Note: Optimum timing for peak viral levels during infections caused by 2019-nCoV have not been determined. Collection of multiple specimens from the same patient may be necessary to detect the virus. Limitations Positive results are indicative of active infection with SARS-CoV-2 but do not rule out bacterial infection or co-infection with other viruses. The agent detected may not be the definite cause of disease. In addition, detection of viral RNA may not indicate the presence of infectious virus or that SARS-CoV-2 is the causative agent for clinical symptoms. Negative results do not preclude SARS-CoV-2 infection and should not be used as the sole basis for patient management decisions. Negative results must be combined with clinical observations, patient history, and epidemiological information. False negative results may also occur if amplification inhibitors are present in the specimen or if inadequate numbers of organisms are present in the specimen. Optimum specimen types and timing for peak viral levels during infections caused by SARS-CoV-2 have not been fully determined. Collection of multiple specimens (types and time points) from the same patient may be necessary to detect the virus. The test was validated for use with upper respiratory specimens obtained via nasopharyngeal or oropharyngeal swabs in VTM, UTM, M4, M5, M6, saline, and MTM media. The performance of this test has not been established for other specimens. Specimens collected using other FDA recommended Specimen Collection Materials listed in the FDA COVID-19 [employer] communication (September 10, 2019) are processed with the caveat that they were not all validated for use with this test and the result must be interpreted in this context. Furthermore, a false negative results may occur if a specimen is improperly collected, transported or handled. If the virus mutates in the RT-PCR target region, SARS-CoV-2 may not be detected or may be detected less predictably. Inhibitors or other types of interference may produce a false negative result. An interference study evaluating the effect of common cold medications was not performed. This test is not FDA-cleared but its performance characteristics were established by our CLIA-certified, CAP-accredited, high complexity laboratory in accordance with CLIA regulations, [employer] (CAP) guidelines (Sep 03, 2019), and FDA guidance (Aug 15, 2019). This test is only for use under the Food and Drug Administration's Emergency Use Authorization. Performing Lab [facility] [place] 06/28/2020 21:40 EST [facility] Swab 06/27/2020 15:1 2 EST 06/27/2020 21:06 EST Provider Outr Resulting Lab MICROBIOLOGY - GENERAL ORDERABLES [facility] [address] [place], [place] [id number] [place] [address] LABORATORY [place], [place] documented in this encounter Visit Diagnoses Not on filedocumented in this encounter Additional Health Concerns Infection Onset Date Last Indicated Resolved Time COVID-19 02/16/2021 02/16/2021 03/18/2021 22:1 5 EDT documented as of this encounter Care Teams Pool Attendant Relationship Specialty Start Date End Date Unknown, MD Jef PCP - General 09/27/17 06/29/20 Leonor Hendricks MD [address] [place] [phone] PCP - General 06/30/20 Toni Aguero MD [address] [place] [phone] 09/27/17 documented as of this encounter
--- OUTSIDE RECORDS SUMMARY | 2024-02-04 01:23 | XMS_ITS | Encounter Summary ---
[place] [address] Care Team Providers Care Urologist Physician Name Role Phone Leonor Hendricks MD Primary Care Provider [phone] Reason for Visit * Reason Comments Follow-up Encounter Details Date Type Department Care Team (Late st Contact Info) Description 2022 4:15 PM EDT Office Visit Dermatology at [address] [address] Andreas Richardson MD [address] [facility], [place] [address] Psoriasis Social History Tobacco Use Types Packs/Day Years [...] as of this encounter Progress Notes * Andreas Richardson MD - 2022 4:15 PM EDT Problem: 1. Follow-up psoriasis on Tremfya, initiated November 2017 through February 2021, back on since December 2021 2. On Cosentyx September 2016 through September 2017 with initial improvement but then allergic reaction 3. Previously on Stelara, Humira, Enbrel, cyclosporine, methotrexate, hydroxyurea, sulfasalazine, and Otezla 4. Psoriasis usually worse for this patient in the summer months, then better in the winter months Jesika follows up and is doing wonderfully. Today is her 52th birthday! Her psoriasis is clear! Usually in the summer months she has some involvement on her hands but not so with Tremfya which she is also tolerating well without injection site reactions fevers chills or any untoward effects. She hasa new tattoo on her right arm and did not have any flaring of her she has not had any psoriasis within her tattoo when she had that done. She has a tattoo of longer standing on right anterior thigh also without any marked of psoriasis. Physical examination reveals a pleasant 52-year-old woman who has a benign examination without any active psoriasis on the hands arms legs knees and scalp is clear as well. Assessment and plan: Psoriasis, clear on Tremfya 1. Continue Tremfya prefilled syringe injections, 100 mg subcutaneously once every 8 weeks. Dispense 1 prefilled syringe for a 2-month supply with 5 refills. 2. We will renew this prescription utilizing the prefilled syringes 3. Return to clinic in another year for repeat check. cc: Leonor Hendricks MD documented in this encounter Plan of Treatment Not on file documented as of this encounter Visit Diagnoses Diagnosis Psoriasis Other psoriasis documented in this encounter Care Teams Urologist Physician Relationship Specialty Start Date End Date Leonor Hendricks MD [address] [place] [address] PCP - General Family Medicine 11/27/16 documented as of this encounter
--- OUTSIDE RECORDS SUMMARY | 2024-02-04 01:23 | XMS_ITS | Encounter Summary ---
Author Organization [facility] Address [address] [place] [address] Care Team Providers Care Financial Foundations Representative Name Role Phone Leonor Hendricks MD Primary Care Provider [phone] Toni Aguero MD Unavailable Encounter Details Date Type Department Care Team (Late st Contact Info) Description 05/23/2021 Lab Requisition [facility] Pathology & Laboratory Medicine - [address] [address] [address] [place] [address] Encounter for other general examination Social History Tobacco Use Types Packs/Day Years Used Date Smoking Tobacco: Never Assessed Sex and Gender Information Value Date Recorded Sex Assigned at Not on file Gender Identity Not on file Sexual Orientation Not on file documented as of this encounter Plan of Treatment Scheduled Orders Name Type Priority Associated Diagnoses Orde r Schedule PAP TEST Pathology Today Encounter for other general examination Ordered: 05/23/2021 documented as of this encounter Visit Diagnoses Diagnosis Encounter for other general examination documented in this encounter Care Teams Financial Foundations Representative Relationship Specialty Start Date [place] [address] PCP - General 06/30/20 Toni Aguero MD [address] [place] [address] 09/27/17 documented as of this encounter
--- OUTSIDE RECORDS SUMMARY | 2024-02-04 01:23 | XMS_ITS | Encounter Summary ---
Author Organization [facility] Address [address] [place] [address] Care Team Providers Care Magnetic Observer Name Role Phone Unknown, Provider Primary Care Provider Encounter Details Date Type Department Care Team (Latest Contact Info) Description 09/27/2016 14:58 EDT - 09/27/2016 23:59 EDT Hospital Encounter [address] [address] Unknown, Provider, Discharge Disposition: Home or Self Care Social History Tobacco Use Types Packs/Day Years Used Date Smoking Tobacco: Never Assessed Sex and Gender Information Value Date Recorded Sex Assigned at Not on file Gender Identity Not on file Sexual Orientation Not on file documented as of this encounter Discharge Disposition Disposition Code Departure Means Destination Home or Self Residential documented in this encounter Plan of Treatment Not on file documented as of this encounter Visit Diagnoses Not on filedocumented in this encounter Care Teams Magnetic Observer Relationship Specialty Start Date End Date Unknown, Provider, PCP - General 04/21/15 09/30/16 documented as of this encounter
--- OUTSIDE RECORDS SUMMARY | 2024-02-04 01:23 | XMS_ITS | Encounter Summary ---
Author Organization [facility] Address [address] [place] [address] Care Team Providers Care Director Global Name Role Phone Unavailable Primary Care Provider Unavailabl e Encounter Details Date Type Department Care Team (Late st Contact Info) Description 02/28/2005 Results Only [facility] - [facility] conversion [address] [place] [address] Elva Suárez, [address] [place] [id number] Social History Tobacco Use Types Packs/Day Years Used Date Smoking Tobacco: Never Assessed Sex and Gender Information Value Date Recorded Sex Assigned at Not on file Gender Identity Not on file Sexual Orientation Not on file documented as of this encounter Plan of Treatment Not on file documented as of this encounter Procedures Procedure Name Priority Date/Time Associated Diagnosis Comments CYTOPATHOLOGY Routine 02/28/2005 0:00 EDT documented in this encounter Results * CYTOPATHOLOGY (02/28/2005 0:00 EDT) Pathology Report: CYTOPATHOLOGY REPORT Reports generated via electronic interface contain original data; however they are lacking the format of the original report. Caution should be taken when reading/interpreti ng unformatted reports. Name: ? RUSLAN CHAIREZ ? Accession #: ? [id number] : ? 1970 (Age: 34) ??F ?Collect Date: ? 02/28/2005 Location: ? [facility] ? Receive Date: ? 03/01/2005 Provider: ?ELVA SUÁREZ LINTER SAW SHARPENER Copy to: ? Specimen/Source: ?ThinPrep Pap Test, Cervix/Endocervix, processed on Taplister ThinPrep Imaging System, with manual evaluation Last Menstrual Period: ? 02/21/05 Other: ? HPVA - HPV testing requested if ASC-US on the current ThinPrep Pap test. ? SPECIMEN ADEQUACY ? Satisfactory for Evaluation - transformation zone component present GENERAL CATEGORIZATION ? Negative for Intraepithelial Lesion or Malignancy ? Document reviewed and electronically signed by: ? Dru Flanagan, YAJAIRA(ASCP) ? Report Date: ??03/08/2005 12:06 End of Report [facility] 02/28/2005 03/01/2005 Elva Suárez LINTER SAW SHARPENER PATHOLOGY ORDERABLES Performing Organization Address City/State/[facility] Co de Phone Number [facility] [address] [place] [address] documented in this encounter Visit Diagnoses Not on filedocumented in this encounter
--- OUTSIDE RECORDS SUMMARY | 2024-02-04 01:23 | XMS_ITS | Encounter Summary ---
Author Organization [facility] Address [address] [place] [address] Care Team Providers Care Turbine Mechanic Name Role Phone Unavailable Primary Care Provider Unavailabl e Encounter Details Date Type Department Care Team (Late st Contact Info) Description 05/17/2009 Orders Only [facility] ([address] [address] Antonieta Francisco, NATALIE Social History Tobacco Use Types Packs/Day Years Used Date Smoking Tobacco: Never Assessed Sex and Gender Information Value Date Recorded Sex Assigned at Not on file Gender Identity Not on file Sexual Orientation Not on file documented as of this encounter Plan of Treatment Not on file documented as of this encounter Procedures Procedure Name Priority Date/Time Associated Diagnosis Comments HPV DETECTION, HIGH RISK TYPES Routine 05/17/2009 10:03 EST CYTOPATHOLOGY Routine 05/17/2009 0:00 EST documented in this encounter Results * HUMAN PAPILLOMA VIRUS DNA TEST (05/17/2009 10:03 EST) Specimen Description Cervix, ThinPrep vial [facility] Result Negative for HPV types 16, 18, 31, 33, 35, 39, 45, 51, 52, 56, 58, 59, and 68. [facility] Report Status Final 05/24/2009 [facility] 05/17/2009 10:0 3 EST 05/20/2009 10:03 EST Antonieta M Nolan INSIDE TESTER MICROBIOLOGY - GENER AL ORDERABLES [facility] [address] [address] * CYTOPATHOLOGY (05/17/2009 0:00 EST) Pathology Report: CYTOPATHOLOGY REPORT ? Reports generated via electronic interface contain original data; ? however they are lacking the format of the original report. ? Caution should be taken when reading/interpreti ng unformatted reports. ? Name: ? RUSLAN CHAIREZ ? Accession #: ? [id number] ? : ? 1970 (Age: 38) ??F ?Collect Date: ? 05/17/2009 ? Location: ? [facility] ? Receive Date: ? 05/18/2009 ? Provider: ?ANTONIETA M NOLAN INSIDE TESTER ? Copy to: ? Specimen/Source: ?Pap Test, Cervix/Endocervix, ThinPrep Imaging System ? with manual evaluation ? Last Menstrual Period: ? 11/13/09 ? Other: ? HPVDX - HPV testing requested regardless of diagnosis on current ThinPrep Pap ?? test. ? SPECIMEN ADEQUACY ? Satisfactory for Evaluation ? - transformation zone component present ? GENERAL CATEGORIZATION ? Negative for Intraepithelial Lesion or Malignancy ? Document reviewed and electronically signed by: ? Juliette Blake, CT(ASCP) ? Report Date: ??05/19/2009 12:48 ? End of Report ? [facility] 05/17/2009 05/18/2009 Antonieta Francisco INSIDE TESTER PATHOLOGY ORDERABLES [facility] [address] [place] [address] documented in this encounter Visit Diagnoses Not on filedocumented in this encounter
--- OUTSIDE RECORDS SUMMARY | 2024-02-04 01:24 | XMS_ITS | Encounter Summary ---
[place] [address] Care Team Providers Care Job Interviewer Name Role Phone Leonor Hendricks MD Primary Care Provider [phone] Encounter Details Date Type Department Care Team (Latest Contact Info) Description 05/02/2022 Travel Social History Tobacco Use Types Packs/Day [...] on filedocumented in this encounter Care Teams Job Interviewer Relationship Specialty Start Date End Date Leonor Hendricks MD [address] [place] [address] PCP - General Family Medicine 11/27/16 documented as of this encounter
--- OUTSIDE RECORDS SUMMARY | 2024-02-04 01:24 | XMS_ITS | Encounter Summary ---
Author Organization [facility] [place] [address] Care Team Providers Care Investment Sales Assistant Name Role Phone Leonor Hendricks MD Primary Care Provider [phone] Reason for Visit * Reason Comments Medication Refill Encounter Details Date Type Department Care Team (Late st Contact Info) Description 07/26/2020 [place] [address] Yareli Morales MD [facility] [place] [address] Social History Tobacco Use Types Packs/Day Years [...] on filedocumented in this encounter Care Teams Investment Sales Assistant Relationship Specialty Start Date End Date Leonor Hendricks MD [address] [place], [place] [address] PCP - General Family Medicine 11/27/16 documented as of this encounter
--- OUTSIDE RECORDS SUMMARY | 2024-02-04 01:24 | XMS_ITS | Encounter Summary ---
Author [facility] [place] [address] Care Team Providers Care Motor Vehicles Inspector Name Role Phone Leonor Hendricks MD Primary Care Provider [phone] Reason for Visit * Reason Comments Medication Refill Encounter Details Date Type Department Care Team (Late st Contact Info) Description 10/29/2020 [place] [address] Yareli Morales MD [facility] [place] [address] Social History Tobacco Use Types Packs/Day Years [...] on filedocumented in this encounter Care Teams Motor Vehicles Inspector Relationship Specialty Start Date End Date Leonor Hendricks MD [address] [place], [place] [address] PCP - General Family Medicine 11/27/16 documented as of this encounter
--- OUTSIDE RECORDS SUMMARY | 2024-02-04 01:24 | XMS_ITS | Encounter Summary ---
[place] [address] Care Team Providers Care Trust Officer Name Role Phone Leonor Hendricks MD Primary Care Provider [phone] Reason for Visit * Reason Onset Date Comments Prior Authorization 11/03/2021 Encounter Details Date Type Department Care Team (Late st Contact Info) Description 11/03/2021 [place] [address] Reva Sun Prior Authorization Social History Tobacco [...] * Telephone Encounter - Reva Sun - 11/17/2021 12:52 PM EDT Office notes routed to [facility] [phone] * Telephone Encounter - Antoinette Mayfield CMA - 11/17/2021 9:25 AM EDT Images from the original note were not included. * Telephone Encounter - Reva Sun - 11/15/2021 2:54 PM EDT Additional information routed [phone] * Telephone Encounter - Reva Sun - 11/03/2021 10:06 AM EDT Images from the original note were not included. Medication Prior Authorization Chaidarun Medication name/dose/directions: Dexcom Sensor Rationale for request: Tpye II DM Health plan: [facility] Authorizing merchandiser retail representative name: Naima Sent to health plan on: 11/03/21 Health plan decision: Denied Quantity approved: Authorization number: [id number] Start date: End date: * Telephone Encounter - Reva Sun - 11/03/2021 7:20 AM EDT Images from the original note were not included. Received PA for dexcom sensor Will complete as soon as possible documented in this encounter Plan of Treatment Not on file documented as of this encounter Visit Diagnoses Not on filedocumented in this encounter Care Teams Trust Officer Relationship Specialty Start Date End Date Leonor Hendricks MD [address] [place] [address] PCP - General Family Medicine 11/27/16 documented as of this encounter
--- OUTSIDE RECORDS SUMMARY | 2024-02-04 01:24 | XMS_ITS | Encounter Summary ---
Author Organization [facility] [place] [address] Care Team Providers Care Hose Turner Name Role Phone Leonor Hendricks MD Primary Care Provider [phone] Encounter Details Date Type Department Care Team (Late st Contact Info) Description 07/20/2020 Tele[place] [id number] Yareli Morales MD [facility] [place] [address] Social History Tobacco Use Types Packs/Day Years [...] encounter Miscellaneous Notes * Telephone Encounter - Radha Campos - 07/20/2020 4:11 PM EST Spoke with Jesika and was able to schedule her follow up documented in this encounter Plan of Treatment Not on file documented as of this encounter Visit Diagnoses Not on filedocumented in this encounter Care Teams Hose Turner Relationship Specialty Start Date End Date Leonor Hendricks MD [address] [place] [address] PCP - General Family Medicine 11/27/16 documented as of this encounter
--- OUTSIDE RECORDS SUMMARY | 2024-02-04 01:24 | XMS_ITS | Encounter Summary ---
Author Organization [facility] [place] [address] Care Team Providers Care Pv Installer Tech Name Role Phone Leonor Hendricks MD Primary Care Provider [phone] Reason for Visit * Reason Comments Medication Refill Encounter Details Date Type Department Care Team (Late st Contact Info) Description 10/31/2022 Refill [place] [address] Marianela Xiao MD [facility] [place] [address] Social History Tobacco Use Types Packs/Day Years [...] on filedocumented in this encounter Care Teams Pv Installer Tech Relationship Specialty Start Date End Date Leonor Hendricks MD [address] [place], [place] [address] PCP - General Family Medicine 11/27/16 documented as of this encounter
--- OUTSIDE RECORDS SUMMARY | 2024-02-04 01:24 | XMS_ITS | Encounter Summary ---
Author Organization [facility] [place] [address] Care Team Providers Care Cleaning Supervisor Name Role Phone Leonor Hendricks MD Primary Care Provider [phone] Encounter Details Date Type Department Care Team (Late st Contact Info) Description 12/16/2019 3:00 PM EDT TH Visit (TeleHealth) Sleep Center at [facility] [address] [place] [address] Lucrecia Vang APRN [facility] DR SLEEP [facility] [address] MAGDALENE on CPAP Social History Tobacco Use Types Packs/Day Years [...] Taken Comments Blood Pressure - - Pulse - - Temperature - - Respiratory Rate - - Oxygen Saturation - - Inhaled Oxygen Concentration - - Weight 100.7 kg (222 lb) 12/15/2019 11:45 AM EDT Height 160 cm (5' 3) 12/15/2019 11:45 AM EDT Body Mass Index 39.33 12/15/2019 11:45 AM EDT documented in this encounter Patient Instructions * Patient Instructions* Lucrecia Vang APRN - 12/16/2019 3:00 PM EDT Recommendations: --Continue on 8-14cw --Adjust mask straps nightly while laying down with machine on, just to snug, for best fit; do not overtighten as it can cause discomfort and greater mask leak --Replace mask cushion regularly, reduce condensation in tubing, adjust humidity if dry air, or report any snoring as these may be the cause of elevated VSI (vibratory snore index) on your recent data download; call and leave a message at the sleep clinic if she finds she is snoring on CPAP --Consider a tubing cover to reduce condensation in tube --Call [employer] company for questions on machine, supply replacements, billing --If dry mouth: 1) adjust humidity and/or heated tube temperature, 2) consider over the counter Biotene mouth rinse, 3) consider room humidifier --If nasal congestion: 1) Try adjusting PAP humidity level, 2) Consider OTC saline nasal spray: 2 sprays per nostril twice daily, before affixing mask in evening and after removing mask in morning, and/or 3) consider nasal saline wash at night before affixing mask, and/or 4) consider over the counter nasal steroid spray --Driving safety reviewed --Follow-up in 2 years with [place]; knows to call sooner if needed documented in this encounter Progress Notes * Lucrecia Vang APRN - 12/16/2019 3:00 PM EDT Sleep Medicine Telehealth Follow-Up Note HPI: Ms. Jesika Ryan is a 48 y.o. female seen for annual follow-up of obstructive sleep apnea. Using CPAP therapy, doing well HPI continues below. Medical/surgical changes since last seen: None Patient is reached today at home in [place], [place] Visit is by phone Patient provided verbal consent prior to initiation of this telehealth encounter and expressed understanding that the telehealth visit may be billed similar to a clinic visit Sleep Study History: 12/28/16 HST, from Dr. Cintron's note: PRITESH: 5 4% PRITESH:2 Apnea index: 1 Central apnea index: 1 Hypopnea with desaturation > or equal to 3% index: 5 Hypopnea with desaturation > or equal to 4% index: 1 Average SpO2: 94% Minimum SpO2: 83% Weight: 195lbs Home sleep testing was non-diagnostic for obstructive sleep apnea. 07/25/17 split PSG, from Dr. Lea's note: Obstructive sleep apnea of a severe degree (AHI of 93.9) noted. [facility] AHI of 40.2 which includes onlyapneas and hypopneas with 4% desaturations noted. Minimum saturation asleep of 85%. Mean saturationasleep pretreatment was 95%. Wt: 240lbs Recommendations: 1. Auto-CPAP with a pressure range of 8-14cm, using a Bravida (XS/S) mask, potentially with a need for mask re-fitment if leak is significant at home. Treatment: APAP Device: DreamStation Auto CPAP, setup 08/12/17 Pressure: 8-14cw, ramp linear at 4cw for 20 mins Pressure Intolerance: fine Interface/Mask: Started with n/ps, Brevida, didn't work for her, didn't like nasal pillows; she is now using AirFit N20 Difficulty tolerating mask interface: she likes it Chin Strap: no HCC: [facility] Insurance: [employer] Snoring: Not anymore Nocturnal gasping: Not anymore Upon Waking: refreshed now Daytime Sleepiness Patient-reported last 4 scores: [facility] 2016 09/26/2017 11/13/2018 12/16/2019 [facility] 7 6 5 3 Insomnia Severity Index 10 (Subthreshold insomnia) 4 (No clinically significant insomnia) 2 (No clinically significant insomnia) Incomplete VR12 - Physical Component Summary 57.68 - - - VR12 - Mental Component Summary 31.93 - - - Daytime symptoms improved (Daytime sleepiness/fatigue): thinks energy has improved Naps: less now; before: was twice during the week; with trazodone, can sleep during day AND still go to bed at night Involuntary Dozing: rare Driving: drives, no drowsiness; before: drowsy as she would if she sits at home; she would pan puller or not even drive if very tired Close calls related to sleepiness: no Accidents related to sleepiness: no Sleep Pattern: Bed/Recliner/Wedge: bed # Pillows: 1 under head Bedtime: in bed 8-8:30p, Lights out: a half hour-hour later, might read paper for half hour Position: stomach or back, not on sides Latency: 30-40mins, is asleep around 10-10:30p Awakenings: twice per night to void Duration: depends what time it is, if midnight or 1am, can fall asleep quicker than if up to void later in night--might be about 30 mins latency Wake time: 6:30a, wakes without alarm, wide awake and not waking anxious anymore Rise time: now gets up and goes; before: will lay there to fall back asleep but can't, though sheis exhausted Sleep duration: guesses at 6 hours, doesn't feel like enough ROS: Constitutional: Weight change: Loss of 18lbs since last sleep study ENT: Nasal Obstruction: No CV: chest pain: none Palpitations: had heart catheterization about 20 years ago : Nocturia: no Endo: right now, blood sugars are a little elevated with eating and COVID Social History: Living situation: lives with Employment: by 7:30a to [employer], done by 1-2p, working same amount in Winter/Summer Past Medical History: Diagnosis Date ??? Misha's thyroiditis ??? Psoriasis Patient Active Problem List Diagnosis Code ??? Psoriasis L40.9 ??? 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 Anxiety F41.9 ??? Psoriatic arthritis L40.50 ??? High risk medication use Z79.899 ??? Type 2 diabetes mellitus with complication, without long-term current use of insulin E11.8 Outpatient Medications Marked as Taking for the 12/16/19 encounter (TH Visit (TeleHealth)) with Lucrecia Vang APRN Medication Sig Dispense Refill ??? metFORMIN (GLUCOPHAGE) 1,000 mg Tablet Take 1 tablet by mouth 2 times daily (with meals). 180 tablet 3 ??? empagliflozin 25 mg Tablet Take 25 mg by mouth daily. (Patient taking differently: Take 25 mg by mouth daily. Jardiance) 90 tablet 3 ??? liraglutide (VICTOZA) 0.6 mg/0.1 mL (18 mg/3 mL) Pen Injector Inject 1.8 mg subcutaneously daily. ICD 10 Code: E11.9 9 Syringe 5 ??? insulin needles, disposable, 32 gauge x 5/32 Needle 1 each by [facility]Non- Drug; Combo Route) route daily. For Victoza injection. ICD 10 Code: E11.9 100 each 3 ??? diclofenac (VOLTAREN) 1 % Gel Apply 2 g topically 4 times daily as needed. 1 Tube 1 ??? guselkumab (TREMFYA) 100 mg/mL Syringe Inject 100 mg subcutaneously Every 8 Weeks. Inject SC one prefilled syringe every eight weeks 1 Syringe 3 ??? blood sugar diagnostic strips Strip Check blood sugar prior to each meal and at bedtime - 4 times daily. 400 each 3 ??? norethindrone (AYGESTIN) 5 mg Tablet TAKE ONE TABLET IN THE MORNING AND ONE IN THE EVENING UNTIL THE BLEEDING STOPS. THEN TAKE ONE TABLET DAILY. 6 ??? escitalopram (LEXAPRO) 20 mg Tablet Take 20 mg by mouth daily. 3 Notable Medications: Aygestin--due to severe menstrual sxs but stopped for now Lexapro: 20mg QD (Prozac, Zoloft didn't help) DMII meds Physical Exam: Ht 160 cm (5' 3) Wt 100.7 kg (222 lb) BMI 39.33 kg/m?? General: 48 y.o. female, no distress; Respirations: Even and not labored at rest, as heard Data Download: Date Range: 08/30/19-12/08/19 Pressure: 8-14cw 90% 12.6 Avg 10.5 Topping out at 14cw Residual AHI: 1.4 Avg Vibratory Snore Index: 31.5 And declining (having difficulty with humidity adjustment) Avg % Night in Large Leak: 0.2% Average Usage (Days Used/Hours): 10 hrs 57 mins # Days of usage: 99/101 98% % Days used > 4 hours: 98% Previous Data Download: Date Range: 08/15/18-11/12/18 Pressure: 8-14cw 90% 12.6 Avg 11.1 Residual AHI: 1.4 Avg Vibratory Snore Index: 41.3 Avg % Night in Large Leak: 0.2% Average Usage (Days Used/Hours): 9 hrs 25 mins # Days of usage: 88/90 98% % Days used > 4 hours: 97% Date Range: 08/12/17-09/23/17 Pressure: 8-14cw Residual AHI: 1.2 Avg Vibratory Snore Index: 17.2 Avg % Night in Large Leak: 0.3% Average Usage (Days Used/Hours): 5 hrs 14 mins # Days of usage: / 93% % Days used > 4 hours: 77% Assessment Ms. Jesika Ryan is a 48 y.o. female seen for annual f/u of obstructive sleep apneaon APAP therapy. The data download reveals the AHI and leak are well controlled, VSI is elevated but appears to be on the decline---reviewed possibilities and remedies. She continues doing very well w ith APAP 8-14cw and reports ongoing benefit with symptoms. Usage is excellent. Some night of topping out at 14cw but no residual symptoms reported and download shows residual AHI well within range ofnormal. No change to pressures. Plan/all recommendations below. Time spent via telehealth with patient in discussion of recommendations below and with time spent during call: 15 minutes Recommendations: --Continue on 8-14cw --Adjust mask straps nightly while laying down with machine on, just to snug, for best fit; do not overtighten as it can cause discomfort and greater mask leak --Replace mask cushion regularly, reduce condensation in tubing, adjust humidity if dry air, or report any snoring as these may be the cause of elevated VSI (vibratory snore index) on your recent data download; call and leave a message at the sleep clinic if she finds she is snoring on CPAP --Consider a tubing cover to reduce condensation in tube --Call [employer] for questions on machine, supply replacements, billing --If dry mouth: 1) adjust humidity and/or heated tube temperature, 2) consider over the counter Biotene mouth rinse, 3) consider room humidifier --If nasal congestion: 1) Try adjusting PAP humidity level, 2) Consider OTC saline nasal spray: 2 sprays per nostril twice daily, before affixing mask in evening and after removing mask in morning, and/or 3) consider nasal saline wash at night before affixing mask, and/or 4) consider over the counter nasal steroid spray --Driving safety reviewed --Follow-up in 2 years with [place]; knows to call sooner if needed The patient indicates understanding of these issues and agrees with the plan. Lucrecai Vnag APRN documented in this encounter Plan of Treatment Not on file documented as of this encounter Visit Diagnoses Diagnosis MAGDALENE on CPAP Obstructive sleep apnea (adult) (pediatric) documented in this encounter Care Teams Cleaning Supervisor Relationship Specialty Start Date End Date Leonor Hendricks MD [address] [place] [address] PCP - General Family Medicine 11/27/16 documented as of this encounter
--- OUTSIDE RECORDS SUMMARY | 2024-02-04 01:24 | XMS_ITS | Encounter Summary ---
[place] [address] Care Team Providers Care Interface Control Officer Name Role Phone Leonor Hendricks MD Primary Care Provider [phone] Reason for Visit * Reason Onset Date Comments Medication Refill 10/30/2021 Encounter Details Date Type Department Care Team (Late st Contact Info) Description 10/30/2021 Ref[place] [address] Keyla Katz, RN Social History Tobacco Use [...] on filedocumented in this encounter Care Teams Interface Control Officer Relationship Specialty Start Date End Date Leonor Hendricks MD [address] [place] [address] PCP - General Family Medicine 11/27/16 documented as of this encounter
--- OUTSIDE RECORDS SUMMARY | 2024-02-04 01:24 | XMS_ITS | Encounter Summary ---
[place] [address] Care Team Providers Care Senior Rd Engineer Name Role Phone Leonor Hendricks MD Primary Care Provider [phone] Reason for Visit * Reason Onset Date Comments Prior Authorization 07/13/2021 Encounter Details Date Type Department Care Team (Late st Contact Info) Description 07/13/2021 Telephone [place] [id number] Reva Sun Prior Authorization Social History Tobacco [...] Miscellaneous Notes * Telephone Encounter - Reva Snu - 07/18/2021 2:04 PM EST Medication Prior Authorization Chaidarun Medication name/dose/directions: Ozempic 4mg/3mL - inj 1mg once weekly Rationale for request: Type II DM Health plan: JEAN-PAUL ([facility]) Authorizing client service representative name: Naima Sent to health plan on: 07/18/21 Health plan decision: Approved Quantity approved: Authorization number: [id number] Start date: 07/18/21 End date: 07/18/22 * Telephone Encounter - Reva Sun - 07/13/2021 7:26 AM EST Received PA for Ozempic Will complete as soon as possible documented in this encounter Plan of Treatment Not on file documented as of this encounter Visit Diagnoses Not on filedocumented in this encounter Care Teams Senior Rd Engineer Relationship Specialty Start Date End Date Leonor Hendricks MD [address] [place] [id number] PCP - General Family Medicine 11/27/16 documented as of this encounter
--- OUTSIDE RECORDS SUMMARY | 2024-02-04 01:24 | XMS_ITS | Encounter Summary ---
Author Organization [facility] [place] [address] Care Team Providers Care Zinc Miner Blasting Name Role Phone Leonor Hendricks MD Primary Care Provider [phone] Reason for Visit * Reason Comments Medication Refill Encounter Details Date Type Department Care Team (Late st Contact Info) Description 01/20/2022 [place] [address] Blade Martinez MD [facility] [place] [address] Social History Tobacco Use Types Packs/Day Years [...] on filedocumented in this encounter Care Teams Zinc Miner Blasting Relationship Specialty Start Date End Date Leonor Hendricks MD [address] [place], [place] [address] PCP - General Family Medicine 11/27/16 documented as of this encounter
--- OUTSIDE RECORDS SUMMARY | 2024-02-04 01:24 | XMS_ITS | Encounter Summary ---
Author Organization [facility] [place] [address] Care Team Providers Care Call Center Professional Name Role Phone Leonor Hendricks MD Primary Care Provider [phone] Encounter Details Date Type Department Care Team (Latest Contact Info) Description 05/22/2022 9:30 AM EST TH Visit (TeleHealth) [place] [address] Blade Martinez MD [facility] [place] [address] PATIENT NOT SEEN Social History Tobacco Use Types Packs/Day Years [...] as of this encounter Progress Notes * Blade Martinez MD - 05/22/2022 9:30 AM EST This patient was not seen in this encounter. documented in this encounter Plan of Treatment Not on file documented as of this encounter Visit Diagnoses Diagnosis DH PATIENT NOT SEEN documented in this encounter Care Teams Call Center Professional Relationship Specialty Start Date End Date Leonor Hendricks MD [address] [place] [address] PCP - General Family Medicine 11/27/16 documented as of this encounter
--- OUTSIDE RECORDS SUMMARY | 2024-02-04 01:24 | XMS_ITS | Encounter Summary ---
Author Organization [facility] [place] [address] Care Team Providers Care Professor Of Philosophy Name Role Phone Leonor Hendricks MD Primary Care Provider [phone] Encounter Details Date Type Department Care Team (Late st Contact Info) Description 01/13/2021 1:30 PM EDT Office [place] [phone] Blade Martinez MD [facility] [place] [address] Misha's thyroiditis; Dyslipidemia; Type 2 diabetes mellitus with hyperglycemia, with long-term current use of insulin Social History [...] Sign Reading Time Taken Comments Blood Pressure 128/65 01/13/2021 1:14 PM EDT Pulse 101 01/13/2021 1:14 PM EDT Temperature 36.7 ??C (98.1 ??F) 01/13/2021 1:14 PM ED T Respiratory Rate - - Oxygen Saturation 98% 01/13/2021 1:14 PM EDT Inhaled Oxygen Concentration - - Weight 106.6 kg (235 lb) 01/13/2021 1:14 PM EDT Height 160 cm (5' 3) 01/13/2021 1:14 PM EDT Body Mass Index 41.63 01/13/2021 1:14 PM EDT documented in this encounter Patient Instructions * Patient Instructions* Blade Martinez MD - 01/13/2021 1:30 PM EDT PLAN: 1. Type 2 DM --To decrease Lantus from 29 to 25 units daily when she starts ozempic pen weekly. She is allowed to titrate the dose further by 2-5 units based on fasting BG (see details on insulin instruction below) --To decrease humalog based on 1u:12-15g cab at each meal (about 3-4u for 50g carb meal instead of 5u), she knows how to read food label for carb amount and can download Calorie Morris ashvin to her phone to help estimate carb in various food. --Ok to continue same correction and use half dose at bedtime. It might be easier to use same sliding scale before meal and at bedtime based on 1u:30 Bg ratio --Ok to resume GLP-1 by taking ozempic pen 0.25 mg sc weekly for 2 weeks then 0.5 mg sc weekly for 2 weeks and then 1 mg sc weekly as her triglyceride level has improved <400 x2 in a row and A1c is stable. --continue Metformin 1000mg BID --continue Jardiance 25mg daily - Continue using Dexcom CGM I am recommending this patient continue [...] treatment plan. 2. Hypertriglyceridemia - --continue fenofibrate 145 mg daily --continue rosuvastatin 20mg daily --continue fish oil or lovaza 2g twice daily. --repeat fasting lipid panel with TSH and next A1c in 2 months, she will do at [facility] 3. History of Misha's thyroiditis with obesity (BMI ~40) - last TSH 3.99 in Jul 2018 at the borderline low thyroid - will monitor TSH at next lab draw (not done as ordered last time) since hypothyroid can aggravatehyperlipidemia and cause weight gain Orders Placed This Encounter Procedures ??? Hemoglobin A1c ??? TSH ??? Lipid Panel (Reflex Direct LDL) 4. Follow-up -2 months after next lab test for further management.. Blade Martinez MD, PhD, FACE, [facility] Insulin Instructions To start using Dexcom G6 CGM as ordered. You have an appointment with Dr. Martinez at [facility] ([facility]). Please take your blood glucose (BG) and insulin record with you. Instructions for Lantus Insulin This is the long-acting insulin. Inject Lantus at the same time each day. Your current dose is 25 units daily afte rusing ozempic. If the BG before breakfast is higher than 150 for two days in a row, add TWO units to the Lantus dose. This becomes your new dose. If the BG before breakfast is lower than 90, subtract TWO units from the LANTUS dose and that will be your new dose. Continue to adjust the dose by 2 units until your morning BG is in the target range of 90-150. If you should forget to take your Lantus, take your usual dose as soon as you realize it was missed. Gradually work back to taking it at your usual time, moving it by 2 - 3 hours each day. Instructions for Mealtime Novolog (or Humalog) Insulin This is the rapid-acting insulin, used at mealtime to prevent a high BG after you eat. Check your BG before each meal. ??? If your BG is 100 or higher, inject Novolog right before eating. ??? If your BG is 80 - 100, inject Novolog right after eating. ??? If your BG is lower than 80, or you have symptoms of a low BG, treat the low BG first, then eatyour meal and take the Novolog after eating. The dose of Novolog is based on the amount of carbohydrate in your meal. Take 1 unit for every 10-15 grams of carbohydrate If you should forget to take your Novolog with a meal, take the usual dose if less than an hour haspassed since you ate your meal. If more than an hour has passed since you ate, check your BG and use the correction scale below. Instructions for Correction Novolog Insulin This is the rapid-acting insulin, used to correct a high BG, and bring it back down to the target. Inject correction Novolog if your BG is higher than 150 before meals or at bedtime. This dose can beadded to the mealtime dose and given all as one injection. At bedtime, take this dose by itself. Your correction dose is 1 unit for every 30 points that your BG is above 150. ADD the following extra insulin if your before-meal BG is higher than 150: BG 150-180 take 1 extra unit BG 181-210 take 2 extra units BG 211-240 take 3 extra units BG 241-270 take 4 extra units BG 271-300 take 5 extra units BG 301-330 take 6 extra units BG 331-360 take 7 extra units BG 361-390 take 8 extra units BG 391-420 take 9 extra units and call your doctor If you check your BG three - four hours after a meal - it should be in the target of 80 - 150. If the BG is higher than 150, take another dose of Novolog according to the scale above. You may repeat this every 3 - 4 hours until your BG is less than 150. Do not take Novolog doses closer than 3 - 4 hours apart. Call your doctor if your BG does not come down after three extra doses. Treatment of Low Blood Sugar (Hypoglycemia) If your BG is lower than 80, you are likely to feel shaky, sweaty and lightheaded. This is a signalthat your body needs more sugar. Quickly eat or drink a small serving of something sweet, such as: 4 ounces fruit juice or regular (not diet) soda 6 Xtraices small box of raisins 4 glucose tablets (~15 gm of glucose) NB: If your BG is very low <50, you can double the amount above or take 30 gm of glucose gel/tablets. Sit and rest and you should feel better within a few minutes. Once you are feeling better, try to determine why your BG was so low. Common causes of hypoglycemia include skipping a meal, lots of exercise, too much insulin or any combination of these things. Understanding the cause my help you to avoid another low BG in the future. Call your doctor for blood sugars less than 60 or greater than 400 to have your insulin doses adjusted. [facility] Endocrine clinic office documented in this encounter Progress Notes * Blade Martinez MD - 01/13/2021 1:30 PM EDT Endocrinology Clinic Follow-up Visit Name: Jesika Ryan : 1970 PCP: Leonor Hendricks MD Date: 01/13/21 Reason for Visit: Follow-up visit for Type 2 diabetes recently started on insulin and hypertriglyceridemia. She used to see Dr. Morales with last visit 10/26/20 and was transferred under my care from since 11/25/20. She recently had very high TG over 2,000 and then down to 1,037 on 10/25/20 and 374 on 11/22/20 - heldvictoza pen since 10/12/[address] Morales due to risk of pancreatitis and switched to insulin since then HISTORY OF PRESENT ILLNESS: Ms. Jesika Ryan is a 50 y.o. lady with history significant for DM [...] to Victoza. Her A1c had improved to 7.5%. -- She started the insulin regimen since 10/12/20 - Lantus 20 units daily and humalog TID for meals plus correction per sliding scale as needed. -- The Vazquez CGM was too expensive for her in the past so we switched to DexHealthMedia CGM since 11/25/20 ($55/mo) to help closely monitor BG. -- Since she has been using basal-bolus insulin 4x/day since Sep DM regimen: Basaglar pen 29u qAM and allow her to titrate by 2-5 units as needed to keep fasting BG 90-150. Humalog kwik pen 1u:10g carb plus extra from sliding scale if high before meals and at bedtime as needed for correction of high BG>150 as follows: Blood sugar 150 - 175, take 2 extra units TID => based on 1u:25BG (from 11/25/20) & will givehalf-dose sliding scale at bedtime for high BG as well Blood sugar 176 - 200, take 4 extra units Blood sugar 201 - 225, take 6 extra units Blood sugar 226 - 250, take 8 extra units Blood sugar above 250, take 10 extra units Metformin 1000 mg bid Jardiance 25 mg qd She has been asymptomatic without abdominal pain. N/V and tried to eat low fat low carb plus medication to help lower TG from >2,000 to 300s after a few months which is excellent, We will wait until TG <400 consistently at least 2x before we consider resuming victoza pen She has no FH of hyperTG that she is aware of. No etoh and already quit smoking 4 yrs ago. Lipid Rx regiem: Fenofibrate 145 mg qd -since 10/11/20 Fish oil 2,000 mg daily Very low fat and controlled carb diet Fasting labs at [facility] Date 10/25/20 11/22/20 Glucose 184 210 GFR 60 Cr 0.8 Triglyceride 1,037 374 Ref. Range 08/06/2016 17:00 07/24/2018 11:27 10/09/2018 10:56 01/08/2019 11:25 Hemoglobin A1C Range: 4.3 - 5.6 % 5.4 11.2 (H) 8.8 (H) 7.5 (H) => 8.9% (H) on 10/14/20 FSBG: Fasting BG 180s this AM & better during daytime avg 145 mg/dl; check FSBG 3-4x/day beforemeal & bedtime => will give Humalog half-dose sliding scale at bedtime for high BG Last HgbA1c: 9.0% (01/03/21), 8.9% (10/14/20), 7.5% (01/08/19), 8.8% (September 2018), 11.2% (Jul 2018), 8.4% (04/11/18), 9.2% (December 2017 - with PCP), 5.4% (2016) Date of Diagnosis: December 2017 Hypoglycemia: none Diet: a lot of vegetables, chicken or pork or fish, EVOO Physical Activity: walking Smoking: quit December 2015. History of complications 1) Nephropathy - Um:cr 6.9 (01/08/19) , GFR >60 (10/06/20) 2) Neuropathy - no n/t. 3) Retinopathy - Last ophtho evaluation - sees Dr. Martin at [facility], no DR (August 2018). 4) CV disease - LDL 115 (Jul 2018)=> 127 (11/22/20), used to be on Lipitor then pravastatin up to a few years ago when her anxiety flared - then she eliminated any nonessential medications. Now her anxiety is better; she has resumed a statin since September 2020 (crestor 20 mg qd). PAST MEDICAL HISTORY: Patient Active Problem List Diagnosis Date Noted ??? Psoriatic arthritis 08/25/2018 ??? High risk medication use 08/25/2018 ??? Misha's thyroiditis 2016 ??? Anxiety 2016 ??? Psoriasis 03/12/2011 SOCIAL HISTORY: Social History Tobacco Use Smoking Status Former Smoker ??? Types: Cigarettes ??? Last attempt to quit: 03/21/2015 ??? Years since quittin.5 Smokeless Tobacco Never Used FAMILY HISTORY: Family History Relation Problem Age of Onset ??? Maternal Aunt Eczema ??? Maternal Grandfather Eczema REVIEW OF SYSTEMS: All 12 systems reviewed and negative except as noted per HPI. PHYSICAL EXAM: BP 128/65 Pulse (!) 101 Temp 36.7 ??C (98.1 ??F) (Temporal) Ht 160 cm (5' 3) Wt 106.6 kg (235 lb) SpO2 98% BMI 41.63 kg/m?? Appearance: obese, very pleasant, NAD HEENT: PERRLA, EOMI, no lid lag or exophthalmos Neck: supple, no goiter visible Ext: normal skin appearance no edema Neuro: no weakness, non-focal, no facial asymmetry. ASSESSMENT: 50 y.o. lady who has had type 2 diabetic since December 2017 (a1c 7.5- 11.2% range) better control with the addition of victoza but had to hold the medication due to risk of pancreatitis with severe hypertriglyceridemia in 2,000s in Sep 2020. She switched GLP1 to basal-bolus insulin which helped control her BG and TG down quickly with recent triglyceride leveld continued to improve, from >2000 to 1037 after two weeks and 374 after 2 months. She is also on fenofibrate 145 mg daily and fish oil (lovaza) in addition to very low fat/low carb diet and high-intensity statin. We switched her temporarily from victoza to a basal bolus insulin regimen until her triglycerides are under 500 consistently with A1c down in 7% range, then she can go back on the victoza and reduce insulin need in the future. On her insulin regimen, her fasting glucose levels are still a little bit elevated so will increase Lantus from 25 to 30 units daily. Her 1-2-hour post dinner glucose levels have been fluctuatiing and it's hard to eat fixed amount of carb for every meal to be able to use fixed amount of insulin for food so we will adjust Humalog based on carb intake 1u:10g carb and extra for correction of high BG >150 before meal and also at bedtime to keep BG more stable over night with better BG in the morning. Target BG 80-150 range pre-meal and <180-200 after eating to keep A1c & TGdown further. Since her triglyceride has been better trending down to <400 twice in a row, it's ok to resume using GLP-1 and will switch victoza daily to Ozempic pen weekly as it's more effective and convenience for her. Will closely monitor lab again in 2 months. PLAN: 1. Type 2 DM --To decrease Lantus from 29 to 25 units daily when she starts ozempic pen weekly. She is allowed to titrate the dose further by 2-5 units based on fasting BG (see details on insulin instruction below) --To decrease humalog based on 1u:12-15g cab at each meal (about 3-4u for 50g carb meal instead of 5u), she knows how to read food label for carb amount and can download Calorie Morris ashvin to her phone to help estimate carb in various food. --Ok to continue same correction and use half dose at bedtime. It might be easier to use same sliding scale before meal and at bedtime based on 1u:30 Bg ratio --Ok to resume GLP-1 by taking ozempic pen 0.25 mg sc weekly for 2 weeks then 0.5 mg sc weekly for 2 weeks and then 1 mg sc weekly as her triglyceride level has improved <400 x2 in a row and A1c is stable. --continue Metformin 1000mg BID --continue Jardiance 25mg daily - Continue using Dexcom CGM I am recommending this patient continue [...] treatment plan. 2. Hypertriglyceridemia - --continue fenofibrate 145 mg daily --continue rosuvastatin 20mg daily --continue fish oil or lovaza 2g twice daily. --repeat fasting lipid panel with TSH and next A1c in 2 months, she will do at [facility] 3. History of Misha's thyroiditis with obesity (BMI ~40) - last TSH 3.99 in Jul 2018 at the borderline low thyroid - will monitor TSH at next lab draw (not done as ordered last time) since hypothyroid can aggravatehyperlipidemia and cause weight gain Orders Placed This Encounter Procedures ??? Hemoglobin A1c ??? TSH ??? Lipid Panel (Reflex Direct LDL) 4. Follow-up -2 months after next lab test for further management.. Blade Martinez MD, PhD, FACE, FACP Insulin Instructions To start using Dexcom G6 CGM as ordered. You have an appointment with Dr. Martinez at [facility] ([facility]). Please take your blood glucose (BG) and insulin record with you. Instructions for Lantus Insulin This is the long-acting insulin. Inject Lantus at the same time each day. Your current dose is 25 units daily afte rusing ozempic. If the BG before breakfast is higher than 150 for two days in a row, add TWO units to the Lantus dose. This becomes your new dose. If the BG before breakfast is lower than 90, subtract TWO units from the LANTUS dose and that will be your new dose. Continue to adjust the dose by 2 units until your morning BG is in the target range of 90-150. If you should forget to take your Lantus, take your usual dose as soon as you realize it was missed. Gradually work back to taking it at your usual time, moving it by 2 - 3 hours each day. Instructions for Mealtime Novolog (or Humalog) Insulin This is the rapid-acting insulin, used at mealtime to prevent a high BG after you eat. Check your BG before each meal. ??? If your BG is 100 or higher, inject Novolog right before eating. ??? If your BG is 80 - 100, inject Novolog right after eating. ??? If your BG is lower than 80, or you have symptoms of a low BG, treat the low BG first, then eatyour meal and take the Novolog after eating. The dose of Novolog is based on the amount of carbohydrate in your meal. Take 1 unit for every 10-15 grams of carbohydrate If you should forget to take your Novolog with a meal, take the usual dose if less than an hour haspassed since you ate your meal. If more than an hour has passed since you ate, check your BG and use the correction scale below. Instructions for Correction Novolog Insulin This is the rapid-acting insulin, used to correct a high BG, and bring it back down to the target. Inject correction Novolog if your BG is higher than 150 before meals or at bedtime. This dose can beadded to the mealtime dose and given all as one injection. At bedtime, take this dose by itself. Your correction dose is 1 unit for every 30 points that your BG is above 150. ADD the following extra insulin if your before-meal BG is higher than 150: BG 150-180 take 1 extra unit BG 181-210 take 2 extra units BG 211-240 take 3 extra units BG 241-270 take 4 extra units BG 271-300 take 5 extra units BG 301-330 take 6 extra units BG 331-360 take 7 extra units BG 361-390 take 8 extra units BG 391-420 take 9 extra units and call your doctor If you check your BG three - four hours after a meal - it should be in the target of 80 - 150. If the BG is higher than 150, take another dose of Novolog according to the scale above. You may repeat this every 3 - 4 hours until your BG is less than 150. Do not take Novolog doses closer than 3 - 4 hours apart. Call your doctor if your BG does not come down after three extra doses. Treatment of Low Blood Sugar (Hypoglycemia) If your BG is lower than 80, you are likely to feel shaky, sweaty and lightheaded. This is a signalthat your body needs more sugar. Quickly eat or drink a small serving of something sweet, such as: 4 ounces fruit juice or regular (not diet) soda 6 lifesavers small box of raisins 4 glucose tablets (~15 gm of glucose) NB: If your BG is very low <50, you can double the amount above or take 30 gm of glucose gel/tablets. Sit and rest and you should feel better within a few minutes. Once you are feeling better, try to determine why your BG was so low. Common causes of hypoglycemia include skipping a meal, lots of exercise, too much insulin or any combination of these things. Understanding the cause my help you to avoid another low BG in the future. Call your doctor for blood sugars less than 60 or greater than 400 to have your insulin doses adjusted. [facility] Endocrine clinic office documented in this encounter Plan of Treatment Not on file documented as of this encounter Visit Diagnoses Diagnosis Misha's thyroiditis Chronic lymphocytic thyroiditis Dyslipidemia Other and unspecified hyperlipidemia Type 2 diabetes mellitus with hyperglycemia, with long-term current use of insulin documented in this encounter Care Teams Professor Of Philosophy Relationship Specialty Start Date End Date Leonor Hendricks MD [address] [place] [address] PCP - General Family Medicine 11/27/16 documented as of this encounter
--- OUTSIDE RECORDS SUMMARY | 2024-02-04 01:24 | XMS_ITS | Encounter Summary ---
[place] [address] Care Team Providers Care Top Collar Baster Name Role Phone Leonor Hendricks MD Primary Care Provider [phone] Reason for Visit * Reason Onset Date Comments Medication Refill 11/30/2021 Encounter Details Date Type Department Care Team (Late st Contact Info) Description 11/30/2021 Refill [place] [address] Keyla Katz, RN Social History Tobacco Use [...] on filedocumented in this encounter Care Teams Top Collar Baster Relationship Specialty Start Date End Date Leonor Hendricks MD [address] [place] [address] PCP - General Family Medicine 11/27/16 documented as of this encounter
--- OUTSIDE RECORDS SUMMARY | 2024-02-04 01:24 | XMS_ITS | Encounter Summary ---
[facility] [place] [address] Care Team Providers Care Pressure Supervisor Name Role Phone Leonor Hendricks MD Primary Care Provider [phone] Encounter Details Date Type Department Care Team (Late st Contact Info) Description 01/13/2021 Telephone [place] [phone] Kierra Mckeon Social History Tobacco Use Types Packs/Day Years [...] encounter Miscellaneous Notes * Telephone Encounter - Kierra Mckeon - 01/13/2021 3:22 PM EDT Covering Exit Desk - vm left with pt to call back and book follow up with Dr. Martinez Please note provider has given permission to break a new patient THF slot to get pt booked - when booked please let agile scrum master know Return in about 2 months (around 03/16/2021) for Telehealth next visit. documented in this encounter Plan of Treatment Not on file documented as of this encounter Visit Diagnoses Not on filedocumented in this encounter Care Teams Pressure Supervisor Relationship Specialty Start Date End Date Leonor Hendricks MD [address] [place] [address] PCP - General Family Medicine 11/27/16 documented as of this encounter
--- OUTSIDE RECORDS SUMMARY | 2024-02-04 01:24 | XMS_ITS | Encounter Summary ---
Author Organization [facility] [address] Care Team Providers Care Ward Nurse Name Role Phone Leonor Hendricks MD Primary Care Provider [phone] Encounter Details Date Type Department Care Team (Latest Contact Info) Description 01/06/2021 1:30 PM EDT TH Visit (TeleHealth) [place] [address] Blade Martinez MD [facility] [place] [address] PATIENT NOT SEEN Social History Tobacco Use [...] Progress Notes * Blade Martinez MD - 01/06/2021 1:30 PM EDT This patient was not seen in this encounter. documented in this encounter Plan of Treatment Not on file documented as of this encounter Visit Diagnoses Diagnosis DH PATIENT NOT SEEN documented in this encounter Care Teams Ward Nurse Relationship Specialty Start Date End Date Leonor Hendricks MD [address] [place] [address] PCP - General Family Medicine 11/27/16 documented as of this encounter
--- OUTSIDE RECORDS SUMMARY | 2024-02-04 01:24 | XMS_ITS | Encounter Summary ---
[place] [address] Care Team Providers Care Patient Manager Name Role Phone Leonor Hendricks MD Primary Care Provider [phone] Encounter Details Date Type Department Care Team (Late st Contact Info) Description 12/19/2021 Telephone [place] [phone] Keyla Katz RN Social History Tobacco Use [...] Telephone Encounter - Keyla Katz RN - 12/19/2021 12:50 PM EDT Pt called saying that her PA hasnt been done for her Dexcom. She though it was done in October. documented in this encounter Plan of Treatment Not on file documented as of this encounter Visit Diagnoses Not on filedocumented in this encounter Care Teams Patient Manager Relationship Specialty Start Date End Date Leonor Hendricks MD [address] [place] [address] PCP - General Family Medicine 11/27/16 documented as of this encounter
--- OUTSIDE RECORDS SUMMARY | 2024-02-04 01:24 | XMS_ITS | Encounter Summary ---
Author [facility] [place] [address] Care Team Providers Care Trimming Machine Operator Name Role Phone Leonor Hendricks MD Primary Care Provider [phone] Reason for Visit * Reason Comments Psoriasis Encounter Details Date Type Department Care Team (Late st Contact Info) Description 03/04/2020 3:45 PM EDT Office Visit Dermatology at [address] [phone] Andreas Richardson MD [address] [facility] [place] [address] Psoriasis Social History Tobacco Use Types Packs/Day [...] Progress Notes * Andreas Richardson MD - 03/04/2020 3:45 PM EDT Problem: 1. ??Follow-up psoriasis on Tremfya, initiated November 2017. ?? 2. ??On Cosentyx September 2016 through September 2017 with initial improvement but then allergic reaction 3. ??Previously on Stelara, Humira, Enbrel, cyclosporine, methotrexate, hydroxyurea, sulfasalazine,and Otezla 4. ??Psoriasis usually worse for this patient in the summer months, then better in the winter months. ?? Jesika follows but is doing beautifully. The Tremfya continues to work well for her. She is not having any injection site reactions, no fevers no chills. She gives herself one injection every 2 months. There only shipping one syringe at a time to her. She gets her medication in a timely fashion. Herco-pay is only $5. Physical examination reveals a pleasant 49-year-old woman whose psoriasis is very well controlled. She has minimal to no involvement in her scalp, she has no involvement on her elbows. She does not have any involvement on her knees. She has one small patch on the left lateral ankle and some minimalpatches over the MCPs of her hands. ?? Assessment and plan: Psoriasis responding well to Tremfya 1. Continue Tremfya 100 mg injections inject contents of 1 prefilled syringe subcutaneously every 2months. 2. Refills were given to her dispense 3 syringes for a 6-month supply with 0 refills March 05, 2019. 3. Return to clinic in in 1 year for a repeat check 4. Patient not bothered by the minimal psoriasis present on the knees and dorsum of the feet today.She does not desire Kenalog injection or creams 5. Patient congratulated on her wonderful response ?? CC: Leonor Hendricks MD documented in this encounter Plan of Treatment Not on file documented as of this encounter Visit Diagnoses Diagnosis Psoriasis Other psoriasis documented in this encounter Care Teams Trimming Machine Operator Relationship Specialty Start Date End Date Leonor Hendricks MD [address] [place] [address] PCP - General Family Medicine 11/27/16 documented as of this encounter
--- OUTSIDE RECORDS SUMMARY | 2024-02-04 01:24 | XMS_ITS | Encounter Summary ---
Author [facility] [place] [address] Care Team Providers Care Dairy Processing Equipment Operator Name Role Phone Leonor Hendricks MD Primary Care Provider [phone] Reason for Visit * Reason Onset Date Comments Appointment 12/14/2020 Encounter Details Date Type Department Care Team (Late st Contact Info) Description 12/14/2020 Telephone [place] [phone] Juanita Ferguson I Appointment Social History Tobacco Use Types Packs/Day Years [...] encounter Miscellaneous Notes * Telephone Encounter - Juanita Bain I - 12/14/2020 11:37 AM EDT Tried to reach patient to reschedule appointment with Marta in November. No answer. Called 2x. Referralclosed and letter sent documented in this encounter Plan of Treatment Not on file documented as of this encounter Visit Diagnoses Not on filedocumented in this encounter Care Teams Dairy Processing Equipment Operator Relationship Specialty Start Date End Date Leonor Hendricks MD [address] [place], [place] [address] PCP - General Family Medicine 11/27/16 documented as of this encounter
--- OUTSIDE RECORDS SUMMARY | 2024-02-04 01:24 | XMS_ITS | Encounter Summary ---
Author Organization [facility] [place] [address] Care Team Providers Care Director Of Music Therapy Name Role Phone Leonor Hendricks MD Primary Care Provider [phone] Reason for Visit * Reason Onset Date Comments Medication Refill 11/04/2021 Encounter Details Date Type Department Care Team (Late st Contact Info) Description 11/04/2021 Refill [place] [address] Blade Martinez MD [facility] [place] [place] [address] Uncontrolled type 2 diabetes mellitus with hyperglycemia, [...] insulin documented in this encounter Care Teams Director Of Music Therapy Relationship Specialty Start Date End Date Leonor Hendricks MD [address] [place] [address] PCP - General Family Medicine 11/27/16 documented as of this encounter
--- OUTSIDE RECORDS SUMMARY | 2024-02-04 01:24 | XMS_ITS | Encounter Summary ---
Author Organization [facility] [place] [address] Care Team Providers Care Digital Technician Name Role Phone Leonor Hendricks MD Primary Care Provider [phone] Encounter Details Date Type Department Care Team (Latest Contact Info) Description 10/18/2020 12:30 PM EDT TH Visit (TeleHealth) [place] [address] Yareli Morales MD [facility] [place] [address] Hypertriglyceridemia ; Type 2 diabetes mellitus without complication, without long-term current use of insulin Social [...] as of this encounter Progress Notes * Yareli Morales MD - 10/18/2020 12:30 PM EDT Endocrinology Clinic Follow-up Visit - Telehealth Reason for Visit: urgent visit for Hyperglycemia and hypertriglyceridemia HISTORY OF PRESENT ILLNESS: Ms. Jesika Ryan is a 49 y.o. lady with history significant for DM type 2, diagnosed in December 2017 after being prediabetic for some time (signs of prediabetes seen on mixed meal test in Jun 2017). I started her on metformin 1000mg BID in December 2017. In Winter 2018, her A1c had suddenly worsened from 8.4% to 11.2% even despite addition of trulicity 0.75mg once weekly, so I switched her GLP-1 agonist to Victoza. By the time of her last visit with me in December 2018, her A1c had improved to 7.5%. The Vazquez was too expensive for her, so she got a glucometer. Two months ago, she was doing quite well on her regimen of metformin, victoza, and jardiance. We did not make any changes at that time. Since that time she's had several health emergencies - two different infections which were treated with antibiotics, and soon followed by a sudden bout of thrombocytopenia. By the time she presented to the ER on the urging of her PCP for the low platelets, her platelet count had started improving, so she was not treated with steroids or plasmapheresis. Plateletcount in bloodwork done last week had improved to normal. Last week she contacted me at the urging of her PCP because her triglycerides were in the 2000s. I started her on fenofibrate - she started taking it on Wednesday 10/11. I had a wfollow-up telehealthvisit with me on 10/12 -- at that time she hadn't yet start taking the insulin but had stopped the victoza as of that morning. She started the insulin regimen on Saturday evening, and says she's been taking: Lantus 20 units daily Humalog - was only taking correction, not the 10 units of prandial Blood sugar 150 - 175, take 2 extra units Blood sugar 176 - 200, take 4 extra units Blood sugar 201 - 225, take 6 extra units Blood sugar 226 - 250, take 8 extra units Blood sugar above 250, take 10 extra units Metformin 1000mg twice daily Jardiance 25 mg daily FSBG on this regimen: Yesterday (10/17/20) Fasting 206 Pre-lunch 158 Pre-dinner 165 Bedtime 221 Today (10/18/20) Fasting 204 Pre-lunch 236 She continues to feel well and denies any epigastric discomfort. Date of Diagnosis: December 2017 Last HgbA1c: 8.9% (10/14/20), 7.5% (01/08/19), 8.8% (September 2018), 11.2% (Jul 2018), 8.4% (04/11/18), 9.2% (December 2017 - with PCP), 5.4% (2016) Current Diabetes Medication regimen: As above FSBG regimen: as above Hypoglycemia: none Diet: Physical Activity: Smoking: quit December 2015. History of complications 1) Nephropathy - Um:cr 6.9 (01/08/19) , GFR >60 (10/06/20) 2) Neuropathy - no n/t. 3) Retinopathy - Last ophtho evaluation - sees Dr. Martin at [facility], no DR (August 2018). Currently office is closed 4) CV disease - LDL 115 (Jul 2018), used to be on Lipitor then pravastatin up to a few years ago when her anxiety flared - then she eliminated any nonessential medications. Now her anxiety is better;she has not resumed a statin since then. PAST MEDICAL HISTORY: Patient Active Problem List [...] except as noted per HPI. PHYSICAL EXAM: Gen: NAD, AAOx3, speaking full sentences, calm very pleasant demeanor Eyes: EOMI, anicteric sclerae ENT: no hoarseness Neck: no visible thyromegaly Pulm: good air movement, easy respirations Neuro: , no focal findings ASSESSMENT: 49 yo F who is type 2 diabetic as of December 2017, currently experiencing severe hypertriglyceridemia, started fenofibrate about 1 week ago and insulin regimen about 5 days ago, to replace victoza and tighten up glucose control. Current FSBG ranging from 150s-240s on the new insulin regimen (plus metformin and jardiance), however she was doing a slightly different dosage from what I had recommended last week. She has been taking: Lantus 20 units daily (instead of 30 units daily) Humalog - was not taking the 10 units prandial dose, only the correctional scale. I suggested increasing the Lantus slightly today from 20 units to 25 units daily, and also instituting a prandial humalog dose of 5 units (instead of the originally recommended 10 units) based on herglucose measurements from the past couple days. Her triglyceride level improved slightly from >2000 to the 1500 range after just 3-4 days on fenofibrate 145 mg daily. I will give it some more time to exert full effect. PLAN: Increase Lantus to 25 units daily. Humalog 5 units prandial (meal-associated) plus correction as follows: Blood sugar 150 - 175, take 2 extra units Blood sugar 176 - 200, take 4 extra units Blood sugar 201 - 225, take 6 extra units Blood sugar 226 - 250, take 8 extra units Blood sugar above 250, take 10 extra units --continue to stay off of Victoza until triglyceride level improves. --continue Metformin 1000mg BID --continue Jardiance 25mg daily --repeat fasting lipid profile and BMP at [facility] in 1 week (next Tuesday 10/24). --telehealth follow-up appointment next week on SaturdayOctober 26 at 8:30am. Total time spent on visit including face to face time with patient, placing orders and documentation was 45 minutes. YARELI MORALES MD Home Health Speech Therapistworkers compensation claims examiner Section of Endocrinology [facility] [place] documented in this encounter Plan of Treatment Not on file documented as of this encounter Visit Diagnoses Diagnosis Hypertriglyceridemia Pure hyperglyceridemia Type 2 diabetes mellitus without complication, without long-term current use of insulin documented in this encounter Care Teams Digital Technician Relationship Specialty Start Date End Date Leonor Hendricks MD [address] [place] [address] PCP - General Family Medicine 11/27/16 documented as of this encounter
--- OUTSIDE RECORDS SUMMARY | 2024-02-04 01:24 | XMS_ITS | Encounter Summary ---
[place] [address] Care Team Providers Care Distiller Name Role Phone Leonor Hendricks MD Primary Care Provider [phone] Reason for Visit * Reason Onset Date Comments Prior Authorization 12/20/2021 Encounter Details Date Type Department Care Team (Late st Contact Info) Description 12/20/2021 Telephone [place] [phone] Reva Sun Prior Authorization Social History Tobacco [...] * Telephone Encounter - Reva Sun - 12/20/2021 8:49 AM EDT Medication Prior Authorization Chaidarun ? Medication name/dose/directions: Dexcom Sensor ?? Rationale for request: Tpye II DM ?? Health plan: [employer] (Fax) ?? Authorizing outside industrial sales representative name: Naima ?? Sent to health plan on: 12/20/21 ?? Health plan decision: Approved ?? Quantity approved: ?? Authorization number: ?? Start date: End date: documented in this encounter Plan of Treatment Not on file documented as of this encounter Visit Diagnoses Not on filedocumented in this encounter Care Teams Distiller Relationship Specialty Start Date End Date Leonor Hendricks MD [address] [place] [address] PCP - General Family Medicine 11/27/16 documented as of this encounter
--- OUTSIDE RECORDS SUMMARY | 2024-02-04 01:24 | XMS_ITS | Encounter Summary ---
Author Organization [facility] [address] Care Team Providers Care Fire Production Operator Name Role Phone Leonor Hendricks MD Primary Care Provider [phone] Encounter Details Date Type Department Care Team (Late st Contact Info) Description 05/08/2022 Telephone [facility] at [facility] [address] [place] [phone] Kylee Piña Social History Tobacco Use Types Packs/Day Years [...] encounter Miscellaneous Notes * Telephone Encounter - Kylee Piña - 05/08/2022 9:42 AM EST Unable to reach pt to schedule yearly f/u created recall. Please schedule from recall documented in this encounter Plan of Treatment Not on file documented as of this encounter Visit Diagnoses Not on filedocumented in this encounter Care Teams Fire Production Operator Relationship Specialty Start Date End Date Leonor Hendricks MD [address] [place] [address] PCP - General Family Medicine 11/27/16 documented as of this encounter
--- OUTSIDE RECORDS SUMMARY | 2024-02-04 01:24 | XMS_ITS | Encounter Summary ---
Author Organization [facility] [place] [address] Care Team Providers Care Eap Specialist Name Role Phone Leonor Hendricks MD Primary Care Provider [phone] Encounter Details Date Type Department Care Team (Late st Contact Info) Description 02/13/2021 2:00 PM EDT TH Visit (TeleHealth) Sleep Center at [facility] [address] [place] [address] Lucrecia Vang APRN [facility] [place] [address] MAGDALENE treated with BiPAP Social History Tobacco Use Types Packs/Day Years Used Date Smoking Tobacco: Former Cigarettes Q uit: 03/21/2015 Smokeless Tobacco: Never Alcohol Use Standard Drinks/Week Comments No 0 (1 standard drink = 0.6 oz pur e alcohol) Sex and Gender Information Value Date Recorded Sex Assigned at Not on file Gender Identity Not on file Sexual Orientation Not on file documented as of this encounter Patient Instructions * Patient Instructions* Lucrecia Vang APRN - 02/13/2021 2:00 PM EDT Recommendations: --Please register your device on the [employer] web site, or by phoning them. --Do not buy or use a ozone generating PAP cleaning device with the [employer] 1 machine --Contact us if patient develops airway irritation symptoms, headaches or other symptoms that they feel may be related to CPAP/BPAP use. --Continue on 8-14cw Ongoing CPAP tips: --Adjust mask straps nightly while laying down [...] cover to reduce condensation in tube --Call DME company for questions on machine, supply replacements, [...] steroid spray --Driving safety reviewed --Follow-up in 1 year; call sooner as needed documented in this encounter Progress Notes * Lucrecia Vang APRN - 02/13/2021 2:00 PM EDT Sleep Medicine Telehealth Follow-Up Note CC/HPI: Ms. Jesika Ryan is a 50 y.o. female seen for follow-up of obstructive sleep apnea on CPAP therapy. Follow up was to be in two years. Using CPAP therapy, doing well. Today is for a check in on the CPAP machine recall. She denies symptoms r/t recall. HPI continues below. Patient in [place], [place] Visit is by video Sleep Study History: 12/28/16 HST, from Dr. [...] a severe degree (AHI of 93.9) noted. [facility] AHI of 40.2 which includes onlyapneas and [...] she likes it Chin Strap: no HCC: [facility] Insurance: [employer] Snoring on CPAP: Not anymore Nocturnal gasping on CPAP: Not anymore Sleep Pattern: Bed/Recliner/Wedge: bed # Pillows: 1 under head Bedtime: 8-8:30p, Lights out: a half hour-hour later, reads for awhile with mask on before falling asleep Position: stomach or back, not on sides Latency: < 30 mins Awakenings: twice per night to void Duration: [...] to fall back asleep but can't, though she is exhausted TST: 7+ hours Daytime Sleepiness Patient-reported last 4 scores: [facility] 2016 09/26/2017 11/13/2018 12/16/2019 [facility] 7 (Low Risk) 6 (Low Risk) 5 (Low Risk) 3 (Low Risk) Insomnia Severity Index 10 (Subthreshold insomnia) 4 (No clinically significant insomnia) 2 (No clinically significant insomnia) Incomplete VR12 - Physical Component Summary 57.68 - - - VR12 - Mental Component Summary 31.93 - - - Driving: drives, no drowsiness; before: drowsy as she would if she sits at home; she would loin puller or not even drive if very tired Close calls related to sleepiness: no Accidents related to sleepiness: no ROS: ENT: Nasal Obstruction: No CV: chest pain: none Palpitations: had heart catheterization about 20 years ago : Nocturia: no Social History: Living situation: lives with 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 ABLATION OF DYSRHYTHMIC FOCUS ??? CYST REMOVAL Past Medical History: Diagnosis Date ??? Misha's thyroiditis ??? Psoriasis Patient Active Problem List Diagnosis Code ??? Psoriasis L40.9 ??? 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 Anxiety F41.9 ??? Psoriatic arthritis L40.50 ??? High risk medication use Z79.899 ??? Type 2 diabetes mellitus with complication, without long-term current use of insulin E11.8 Current Outpatient Medications on File Prior to Visit Medication Sig Dispense Refill ??? semaglutide (Ozempic) 0.25 mg or 0.5 mg(2 mg/1.5 mL) Pen Injector Inject 0.25 mg subcutaneouslyevery 7 days for 28 days, THEN 0.5 mg every 7 days for 28 days. And then increase to 1mg sc weekly (will send new script) 2 Syringe 0 ??? Ozempic 1 mg/dose (2 mg/1.5 mL) Pen Injector Inject 1 mg subcutaneously every 7 days. 3 Syringe3 ??? Dexcom G6 Transmitter Device 1 each by Misc.(Non-Drug; Combo Route) route continuous. Change every 90 days. 1 Device 3 ??? Dexcom G6 Sensor Device 1 each by Misc.(Non-Drug; Combo Route) route continuous. To be changed every 10 days. 9 Device 3 ??? Dexcom G6 Custodian Misc 1 each by Misc.(Non-Drug; Combo Route) route continuous. Use to continuously monitor blood glucose 1 each 0 ??? metFORMIN (GLUCOPHAGE) 1,000 mg Tablet TAKE ONE TABLET BY MOUTH TWICE A DAY WITH MEALS 180 tablet 3 ??? rosuvastatin (Crestor) 20 mg Tablet Take 1 tablet by mouth nightly. 30 tablet 11 ??? omega-3 acid ethyl esters (Lovaza) 1 gram Capsule Take 2 capsules by mouth 2 times daily. 60 capsule 11 ??? humaLOG KwikPen 100 unit/mL Insulin Pen Inject 7-15 Units subcutaneously 3 times daily (before meals). 5 units prandial plus 2-10 units correction per sliding scale. 54 mL 3 ??? Insulin Basaglar KwikPen U-100 100 unit/mL (3 mL) pen Inject 25 Units subcutaneously daily. 30 mL 3 ??? fenofibrate (TRICOR) 145 mg Tablet Take 1 tablet by mouth daily. 90 tablet 3 ??? insulin needles, disposable, (Winnie Pen Needle) 32 gauge x 5/32 Needle Inject 1 each subcutaneously 5 times daily. 500 each 3 ??? empagliflozin 25 mg Tablet Take 25 mg by mouth daily. 90 tablet 3 ??? OneTouch Verio test strips Strip 1 each by Other route 4 times daily. Use as instructed 400 each 3 ??? One Touch Delica 33 gauge Misc 1 each by Misc.(Non-Drug; Combo Route) route 4 times daily. 400 each 3 ??? guselkumab (TREMFYA) 100 mg/mL Syringe Inject 100 mg subcutaneously Every 8 Weeks. Inject SC one prefilled syringe every eight weeks (Patient not taking: Reported on 01/13/2021) 1 Syringe 3 ??? norethindrone (AYGESTIN) 5 mg Tablet Take 5 mg by mouth daily. 6 ??? escitalopram (LEXAPRO) 20 mg Tablet Take 20 mg by mouth daily. 3 No current facility-administered medications on file prior to visit. Physical Exam: General: 50 y.o. female, no distress; Respirations: Even and not labored at rest, as heard Data Download: Date Range: 11/12-02/09/21 Pressure: 8-14cw 90% 14 Avg 11 not topping out at 14 since leak fixed Residual AHI: 1.1 Avg Vibratory Snore Index: Elevated until 12/20 when something changed out Avg % Night in Large Leak: 0% Average Usage (Days Used/Hours): 11 hrs 18 mins # Days of usage: 90/90 100% % Days used > 4 hours: 100% Previous Data Download: Date Range: 08/30/19-12/08/19 Pressure: 8-14cw 90% 12.6 Avg 10.5 Topping out at 14cw Residual AHI: 1.4 Avg Vibratory Snore Index: 31.5 And declining (having difficulty with humidity adjustment) Avg % Night in Large Leak: 0.2% Average Usage (Days Used/Hours): 10 hrs 57 mins # Days of usage: 99/101 98% % Days used > 4 hours: 98% Date Range: 08/15/18-11/12/18 Pressure: 8-14cw 90% 12.6 [...] hrs 14 mins # Days of usage: 40/43 93% % Days used > 4 hours: 77% Assessment Ms. Jesika Ryan is a 50 y.o. female seen for f/u of obstructive sleep apnea on APAP therapy with check in today on CPAP machine recall. The data download reveals the AHI and leak are well controlled, VSI is elevated until 7/6 then low again. Pressures were topping out at 14cw with VSI but with supply change out, VSI is low again and pressures not topping out. Usage is excellent and she continues with benefit on CPAP. Usage appears long because she reads at night with CPAP on. No changes today. Discussed that the PAP machine was recently recalled due to risk of potential breakdown of the soundproofing foam in the machine. We reviewed the potential risks that have been associated with this, including inhalation of foam particles and possible off-gassing of toxic fumes. Denies symptoms. Patient confirms that they are not using unapproved cleaning methods (such as ozone generating auto specialty services manager). Advised to immediately register their machine on community [employer] website for repair or replacement. She has. Discussed that at this time, we believe that the benefit of CPAP likely outweighs the risk and thatthe community leader will replace or repair the machine. Patient indicates understanding of the situation. Advised to contact us if patient develops airway irritation symptoms, headaches or other symptoms that they feel may be related to CPAP use. Plan/recommendations below. Total time spent via telehealth with patient including charting, notes review, data download analysis, counseling and recommendations: 20 minutes Recommendations: --Please register your device on the [employer] web site, or by phoning them. --Do not buy or use a ozone generating PAP cleaning device with the [employer] 1 machine --Contact us if patient develops airway irritation symptoms, headaches or other symptoms that they feel may be related to CPAP/BPAP use. --Continue on 8-14cw Ongoing CPAP tips: --Adjust mask straps nightly while laying down [...] cover to reduce condensation in tube --Call [employer] company for questions on machine, supply replacements, [...] steroid spray --Driving safety reviewed --Follow-up in 1 year; call sooner as needed The patient indicates understanding of these issues and agrees with the plan. Lucrecia Vang APRN documented in this encounter Plan of Treatment Not on file documented as of this encounter Visit Diagnoses Diagnosis MAGDALENE treated with BiPAP documented in this encounter Care Teams Eap Specialist Relationship Specialty Start Date End Date Leonor Hendricks MD [address] [place] [address] PCP - General Family Medicine 11/27/16 documented as of this encounter
--- OUTSIDE RECORDS SUMMARY | 2024-02-04 01:24 | XMS_ITS | Encounter Summary ---
[place] [address] Care Team Providers Care Chocolate Finisher Operator Name Role Phone Leonor Hendricks MD Primary Care Provider [phone] Reason for Visit * Reason Onset Date Comments Medication Refill 10/25/2022 Encounter Details Date Type Department Care Team (Late st Contact Info) Description 10/25/2022 [place] [address] Keyla Katz, RN Social History Tobacco Use [...] on filedocumented in this encounter Care Teams Chocolate Finisher Operator Relationship Specialty Start Date End Date Leonor Hendricks MD [address] [place] [address] PCP - General Family Medicine 11/27/16 documented as of this encounter
--- OUTSIDE RECORDS SUMMARY | 2024-02-04 01:24 | XMS_ITS | Encounter Summary ---
Author Organization [facility] [place] [address] Care Team Providers Care Metal Cut Off Saw Operator Name Role Phone Leonor Hendricks MD Primary Care Provider [phone] Encounter Details Date Type Department Care Team (Latest Contact Info) Description 05/24/2021 11:30 AM EST TH Visit (TeleHealth) [place] [id number] Blade Martinez MD [facility] [place] [address] Misha's thyroiditis; Type 2 diabetes mellitus with hyperglycemia, with long-term current use of insulin; Dyslipidemia; Hypertriglyceridemia ; Vitamin D deficiency Social History Tobacco Use Types Packs/Day Years [...] Sign Reading Time Taken Comments Blood Pressure 127/70 05/24/2021 11:34 AM EST Pulse - - Temperature - - Respiratory Rate 10 05/24/2021 11:34 AM EST Oxygen Saturation - - Inhaled Oxygen Concentration - - Weight 104.8 kg (231 lb) 05/24/2021 11:34 AM EST Height 162.6 cm (5' 4) 05/24/2021 11:34 AM EST Body Mass Index 39.65 05/24/2021 11:34 AM EST documented in this encounter Patient Instructions * Patient Instructions* Blade Martinez MD - 05/24/2021 11:30 AM EST PLAN: 1. Type 2 DM --To contijue Lantus 25 units daily. She is allowed to titrate the dose further by 2-5 units based on fasting BG as instructed. -- To cont ozempic pen 1 mg sc weekly. --To cont humalog 5-15u TID/QID p.r.n for carb and for correction (to use only half dose correctionat bedtime). --continue Metformin 1000mg BID --continue Jardiance [...] --repeat fasting lipid panel with TSH and A1c tomorrow and again in 3 months, she will do at [facility] 3. History of Misha's thyroiditis with obesity (BMI ~40) - last TSH 3.99 in Jul 2018 at the borderline low thyroid - will monitor TSH at next lab draw (not done as ordered last time) since hypothyroid can aggravatehyperlipidemia and cause weight gain 4. Vitamin D deficiency - lab on 05/25/21 showed very low 25vitamin D at 13.2 (normal 30-100), - To start vitamin D 50,000 iu daily loading dose for 7 days and then 1 capsule weekly for severe vitD deficiency 5. Follow-up 3-4 months after next lab test (A1c, lipids, TSH and 25vitamin D) for further management. Blade Martinez MD, PhD, FACE, FACP documented in this encounter Progress Notes * Blade Martinez MD - 05/24/2021 11:30 AM EST Endocrinology Clinic Follow-up Visit Name: Jesika Ryan : 1970 PCP: Leonor Hendricks MD Date: 05/24/21 Reason for Visit: Follow-up visit for Type 2 diabetes on insulin plus pills/GLP1 and also hypertriglyceridemia (TG > 2000s => better 374 on 11/22/20). She used to see Dr. Morales with last visit 10/26/20 and was transferred under my care from since 11/25/20. She recently had Covid19 PNA admitted in ICU for 8 days in Feb 2021 ([facility]), on BIPCP but no need for intubation with nearly full recovery. Patient verbally consents to this telehealth visit [...] sc weekly without problem. She last lost 4 lbs and will recheck lab as planned tomorrow --She recently had Covid19 admitted in ICU for 8 days in Feb 2021 at [facility], on BIPCP but no need forintubation with full recovery except for the loss of smell per pt. DM regimen: Date of Diagnosis: December 2017 Basaglar pen 25u qAM with fasting BG 90-150. Humalog kwik pen 1u:10g [...] qd Ozempic pen 1 mg sc weekly She has been asymptomatic without abdominal pain. N/V and tried to eat low fat low carb plus medication to help lower TG from >2,000 to 300s after a few months which is excellent. As her TG <400, we resumed victoza pen => switched to ozempic pen weekly as above She has no FH of hyperTG that she is aware of. No etoh and already quit smoking 4 yrs ago. Lipid Rx regiem: Fenofibrate 145 mg qd -since 10/11/20 Crestor 20 mg qd Fish oil 2,000 mg 2x daily Very low fat and controlled carb diet Fasting labs at [facility] Date 10/25/20 11/22/20 01/03/21 Glucose 184 210 GFR 60 Cr 0.8 Triglyceride 1,037 374 380 Ref. Range 08/06/2016 17:00 07/24/2018 11:27 10/09/2018 10:56 01/08/2019 11:25 Hemoglobin A1C Range: 4.3 - 5.6 % 5.4 11.2 (H) 8.8 (H) 7.5 (H) => 8.9% (H) on 10/14/20=> 9.0% (01/03/21) > pending (05/25/21) FSBG: Fasting BG 100s, avg BG 145 mg/dl; check FSBG 3-4x/day before meal & bedtime Last HgbA1c: 9.0% (01/03/21), 8.9% (10/14/20), 7.5% [...] ophtho evaluation - sees Dr. Martin at [facility], no DR (August 2018). 4) [...] as noted per HPI. PHYSICAL EXAM: BP 127/70 Resp 10 Ht 162.6 cm (5' 4) Wt 104.8 kg (231 lb) BMI 39.65 kg/m?? Appearance: obese, very pleasant, NAD HEENT: PERRLA, EOMI, no lid lag or exophthalmos Neck: supple, no goiter visible Ext: normal skin appearance no edema Neuro: no weakness, non-focal, no facial asymmetry. Addendum 05/26/21: Outside lab at [facility] after the visit Date 05/25/21 A1c 8.1, better (was 9.0% in December) TSH 2.79, ok for thyroid Comprehensive chemistry - ok (Cr 0.7, Ca 9.4, K 4.0), except for glucose 184H TC/LDL 162/- TG 518H, => to eat very low fat/low carb diet HDL 27L, exercise can increase this good HDL-cholesterol B12 321, low normal but still ok (normal 250-1200) Vitamin D 13.2, very low (normal 30-100) -=> To start vitamin D 50,000 iu daily loading dose for7 days and then 1 capsule weekly as prescribed for severe vitD deficiency ASSESSMENT: 50 y.o. lady who has had [...] triglycerideleveld continued to improve, from >2000 to 1037 after two weeks and 374 after 2 months and then stable in 300s in December 2020. She is also on fenofibrate 145 mg daily, crestor 20 mg qd. and fish oil(lovaza) in addition to very low fat/low carb diet and high-intensity statin. We switched her victoza to ozempic since late December 2020 and cont basal-bolus insulin regimen with goal to keep A1c <7%andl triglycerides under 500 consistently. She has reduced insulin need after using Ozempic pen andknows to adjust Humalog based on carb intake and extra for high BG before meals and at bedtime as needed. Target BG 80-150 range pre-meal and <180-200 after eating to keep A1c & TG down further. Since her triglyceride has been better trending down to <400 twice in a row, it's ok to continueusing GLP-1 (Ozempic pen weekly) further. Will closely monitor lab again tomorrow and q 3 months. PLAN: 1. Type 2 DM --To contijue Lantus 25 units daily. She is allowed to titrate the dose further by 2-5 units based on fasting BG as instructed. -- To cont ozempic pen 1 mg sc weekly. --To cont humalog 5-15u TID/QID p.r.n for carb and for correction (to use only half dose correctionat bedtime). --continue Metformin 1000mg BID --continue Jardiance 25mg daily - Continue using Dexcom CGM I am recommending this patient continue using a [employer] G6 CGM for personal use. Pt has [...] --repeat fasting lipid panel with TSH and A1c tomorrow and again in 3 months, she will do at [facility] 3. History of Misha's thyroiditis with obesity (BMI ~40) - last TSH 3.99 in Jul 2018 at the borderline low thyroid - will monitor TSH at next lab draw (not done as ordered last time) since hypothyroid can aggravatehyperlipidemia and cause weight gain 4. Vitamin D deficiency - lab on 05/25/21 showed very low 25vitamin D at 13.2 (normal 30-100), - To start vitamin D 50,000 iu daily loading dose for 7 days and then 1 capsule weekly for severe vitD deficiency 5. Follow-up 3-4 months after next lab test (A1c, lipids, TSH and 25vitamin D) for further management. Blade Martinez MD, PhD, FACE, FACP documented in this encounter Miscellaneous Notes * Addendum Note - Blade Martinez MD - 05/24/2021 11:30 AM ESTAddended by: BLADE MARTINEZ on: 05/26/2021 12:15 PM Modules accepted: Orders documented in this encounter Plan of Treatment Not on file documented as of this encounter Visit Diagnoses Diagnosis Misha's thyroiditis Chronic lymphocytic thyroiditis Type 2 diabetes mellitus with hyperglycemia, with long-term current use of insulin Dyslipidemia Other and unspecified hyperlipidemia Hypertriglyceridemia Pure hyperglyceridemia Vitamin D deficiency Unspecified vitamin D deficiency documented in this encounter Care Teams Metal Cut Off Saw Operator Relationship Specialty Start Date End Date Leonor Hendricks MD [address] [place] [address] PCP - General Family Medicine 11/27/16 documented as of this encounter
--- OUTSIDE RECORDS SUMMARY | 2024-02-04 01:24 | XMS_ITS | Encounter Summary ---
Author Organization [facility] [place] [address] Care Team Providers Care Shoe Cleaner Name Role Phone Leonor Hendricks MD Primary Care Provider [phone] Encounter Details Date Type Department Care Team (Latest Contact Info) Description 09/19/2021 3:00 PM EDT TH Visit (TeleHealth) [place] [address] Blade Martinez MD [facility] [place] [address] Type 2 diabetes mellitus with hyperglycemia, with long-term current use of insulin; Misha's thyroiditis; Dyslipidemia; Vitamin D deficiency; Hypertriglyceridemia Social History Tobacco [...] - Temperature - - Respiratory Rate 10 09/19/2021 3:04 PM EDT Oxygen Saturation - - Inhaled Oxygen Concentration - - Weight 100.7 kg (222 lb) 09/19/2021 3:04 PM EDT Height 160 cm (5' 3) 09/19/2021 3:04 PM EDT Body Mass Index 39.33 09/19/2021 3:04 PM EDT documented in this encounter Patient Instructions * Patient Instructions* Blade Martinez MD - 09/19/2021 3:24 PM EDT PLAN: 1. Type 2 DM --To resume Lantus 25 units daily. She is allowed to titrate the dose further by 2-5 units based onfasting BG down to target of 90-130 mg/dl as instructed. -- To cont ozempic pen 1 mg sc weekly. --To cont humalog 5-15u TID/QID 1u:5g carb and extra for correction (to use only half dose correction at [...] twice daily. --repeat fasting lipid panel with A1 in 3 months, she will do at [facility] 3. History of Misha's thyroiditis with obesity (BMI ~40) - TSH 3.99 in Jul 2018 at the borderline low thyroid => good TSH 1.88 on repeat (09/18/21) - will monitor TSH at 6 mo since hypothyroid can aggravate hyperlipidemia and cause weight gain 4. Vitamin D deficiency - lab on 05/25/21 showed very low 25vitamin D at 13.2 => still low at 19 after loading dose for 7days and then weekly (normal 30-100), - To increase itamin D 50,000 iu daily loading dose for 14 days and then 1 capsule weekly for severe vitD deficiency 5. Follow-up 3-4 months after next lab test (A1c, lipids, and 25vitamin D) for further management. Blade Martinez MD, PhD, FACE, FACP documented in this encounter Progress Notes * Blade Martinez MD - 09/19/2021 3:00 PM EDT Endocrinology Clinic Follow-up Visit Name: Jesika Ryan : 1970 PCP: Leonor Hendricks MD Date: 09/19/21 Reason for Visit: Follow-up visit for Type 2 diabetes on insulin plus pills/GLP1 and also hypertriglyceridemia (TG > 2000s => better 374 on 11/22/20). She used to see Dr. Morales until 10/26/20and was transferred under my care from since 11/25/20. She recently had Covid19 PNA admitted in ICU for 8 days in Feb 2021 ([facility]), on BIPCP but no need for intubation with nearly full recovery. Patient verbally consents to this telehealth visit and understands that this visit may be billed, similar to a clinic office visit. I provided care to the patient today via VDO call. The total time associated with this visit, chartreview, documentation, and coordination of care was 42 minutes. HISTORY OF PRESENT ILLNESS: Ms. Jesika [...] 4+9lbs from 235 to 222 lbs over the past 8 months --She had Covid19 admitted in ICU for 8 days in Feb 2021 at [facility], on BIPCP but no need for intubation with full recovery except for the loss of smell per pt. --She tried to taper off basaglar but noted higher fasting BG >150 with A1c back up to 8.5% now (09/18/21) plus higher TG 746, so she will need to resume basaglar 25u daily now. DM regimen: Date of Diagnosis: December 2017, using Dexcom CGM Basaglar pen 25u qAM to keep fasting BG 90-150 => change to Tresiba pen same dose per insurance (01/10/22) Humalog kwik pen 1u:5g carb plus extra from sliding scale if [...] fat and controlled carb diet Labs at [facility] Date 10/25/20 11/22/20 01/03/21 Glucose 184 210 GFR 60 Cr 0.8 Triglyceride 1,037 374 380 Outside lab at [facility] Date 05/25/21 09/18/21 11/29/21 07/13/22 A1c 8.1, better (was 9.0% in December) 8.5% 8.2% 8.4% TSH 2.79, ok for thyroid 1.88 3.16 2.65 Comprehensive chemistry - ok TC/LDL 162/- 178/54 186/70 153/60 TG/HDL 518H/28L 746H/25L 723H/27L 426/21 B12 321, low normal (normal 250-1200) Vitamin D 13.2, very low 19.7 62 27.7L (normal 30-100) after tapering vitamin D 50,000 iu q 2 weeksin summer and back to weekly in fall & winter Ref. Range 08/06/2016 17:00 07/24/2018 11:27 10/09/2018 10:56 01/08/2019 11:25 Hemoglobin A1C Range: 4.3 - 5.6 % 5.4 11.2 (H) 8.8 (H) 7.5 (H) => 8.9% (H) on 10/14/20=> 9.0% (01/03/21) > 8.1 (05/25/21)>-8.5% (09/18/21) FSBG: Fasting BG 100s, avg BG 145 mg/dl; check FSBG 3-4x/day before meal & bedtime Last HgbA1c: 8.1-8.5% (09/18/21) 9.0% (01/03/21), 8.9% (10/14/20), 7.5% [...] ophtho evaluation - sees Dr. Martin at [facility], no DR (August 2018). [...] except as noted per HPI. PHYSICAL EXAM: Resp 10 Ht 160 cm (5' 3) Wt 100.7 kg (222 lb) BMI 39.33 kg/m?? Appearance: obese, very pleasant, NAD HEENT: PERRLA, EOMI, no lid lag or exophthalmos Neck: supple, no goiter visible Ext: normal skin appearance no edema Neuro: no weakness, non-focal, no facial asymmetry. Outside lab at [facility] Date 05/25/21 09/18/21 11/29/21 07/13/22 A1c 8.1, better (was 9.0% in December) 8.5% 8.2% 8.4% TSH 2.79, ok for thyroid 1.88 3.16 2.65 Comprehensive chemistry - ok (Cr 0.7, Ca 9.4, K 4.0), except for glucose 184H TC/LDL 162/- 178/54 186/70 153/60 TG/HDL 518H/28L 746H/25L 723H/27L 426/21=> to eat very low fat/low carb diet & keep A1c downto lower TG B12 321, low normal (normal 250-1200) Vitamin D 13.2, very low 19.7 62 27.2L (normal 30-100) on tapering vitamin D 50,000 iu q 2 weeks insummer => back to weekly dose in fall & winter Outside [...] capsule weekly in fall and winter months. Please call to schedule next VDO visit soon and my next available maybe about 3- 4 months from now if you have not made an appointment yet. Take care. BLADE MARTINEZ MD ASSESSMENT: 50 y.o. lady who has had [...] months. PLAN: 1. Type 2 DM --To resume Lantus 25 units daily => change to Tresiba pen same dose per insurance (01/10/22). She is allowed to titrate the dose further by 2-5 units based on fasting BG down to target of 90-130 mg/dl as instructed. -- To cont ozempic pen 1 mg sc weekly. --To cont humalog 5-15u TID/QID 1u:5g carb and extra for correction (to use only half dose correction at bedtime). --continue Metformin 1000mg BID --continue Jardiance 25mg daily - Continue using Dexcom CGM I am recommending this patient continue using a [place] G6 CGM for personal use. Pt has [...] twice daily. --repeat fasting lipid panel with A1 in 3 months, she will do at [facility] 3. History of Misha's thyroiditis with obesity (BMI ~40) - TSH 3.99 in Jul 2018 at the borderline low thyroid => good TSH 1.88 on repeat (09/18/21) - will monitor TSH at 6 mo since hypothyroid can aggravate hyperlipidemia and cause weight gain 4. Vitamin D deficiency - lab on 05/25/21 showed very low 25vitamin D at 13.2 => still low at 19 after loading dose for 7days and then weekly (normal 30-100), - To increase itamin D 50,000 iu daily loading dose for 14 days and then 1 capsule weekly for severe vitD deficiency 5. Follow-up 3-4 months after next lab test (A1c, lipids, and 25vitamin D) for further management. Blade Martinez MD, PhD, FACE, FACP documented in this encounter Miscellaneous Notes * Addendum Note - Blade Martinez MD - 09/19/2021 3:00 PM EDTAddended by: BLADE MARTINEZ on: 01/10/2022 06:54 PM Modules accepted: Orders documented in this encounter Plan of Treatment Not on file documented as of this encounter Visit Diagnoses Diagnosis Type 2 diabetes mellitus with hyperglycemia, with long-term current use of insulin Misha's thyroiditis Chronic lymphocytic thyroiditis Dyslipidemia Other and unspecified hyperlipidemia Vitamin D deficiency Unspecified vitamin D deficiency Hypertriglyceridemia Pure hyperglyceridemia documented in this encounter Care Teams Shoe Cleaner Relationship Specialty Start Date End Date Leonor Hendricks MD [address] [place] [address] PCP - General Family Medicine 11/27/16 documented as of this encounter
--- OUTSIDE RECORDS SUMMARY | 2024-02-04 01:24 | XMS_ITS | Encounter Summary ---
Author Organization [facility] [place] [address] Care Team Providers Care Police Inspector Name Role Phone Leonor Hendricks MD Primary Care Provider [phone] Reason for Visit * Reason Comments Medication Refill Encounter Details Date Type Department Care Team (Late st Contact Info) Description 08/01/2020 [place] [address] Yareli Morales MD [facility] [place] [address] Social History Tobacco Use Types Packs/Day Years [...] Telephone Encounter - Olga Almonte LPN - 08/04/2020 10:19 AM EST Requested Prescriptions Pending Prescriptions Disp Refills ??? Winnie Pen Needle 32 gauge x 5/32 Needle [Pharmacy Med Name: BD UF WINNIE PEN NEEDLE [id number]] 100 each 3 Sig: USE 1 PEN NEEDLE DIRECTED ONCE DAILY TO INJECT VICTOZA Last office visit: 07/19/2020 Follow up: 01/17/2021 Last refill: 07/08/2019 Olga almonte LPN documented in this encounter Plan of Treatment Not on file documented as of this encounter Visit Diagnoses Not on filedocumented in this encounter Care Teams Police Inspector Relationship Specialty Start Date End Date Leonor Hendricks MD [address] [place] [address] PCP - General Family Medicine 11/27/16 documented as of this encounter
--- OUTSIDE RECORDS SUMMARY | 2024-02-04 01:24 | XMS_ITS | Encounter Summary ---
[place] [address] Care Team Providers Care Damage Prevention Coordinator Name Role Phone Leonor Hendricks MD Primary Care Provider [phone] Reason for Visit * Reason Onset Date Comments Medication Refill 12/21/2021 Encounter Details Date Type Department Care Team (Late st Contact Info) Description 12/21/2021 Ref[place] [address] Keyla Katz, RN Uncontrolled type 2 diabetes mellitus with hyperglycemia, [...] insulin documented in this encounter Care Teams Damage Prevention Coordinator Relationship Specialty Start Date End Date Leonor Hendricks MD [address] [place] [address] PCP - General Family Medicine 11/27/16 documented as of this encounter
--- OUTSIDE RECORDS SUMMARY | 2024-02-04 01:24 | XMS_ITS | Encounter Summary ---
[place] [address] Care Team Providers Care X Ray Technologist Name Role Phone Leonor Hendricks MD Primary Care Provider [phone] Reason for Visit * Reason Onset Date Comments Medication Refill 01/01/2022 Encounter Details Date Type Department Care Team (Late st Contact Info) Description 01/01/2022 Refill [place] [address] Keyla Katz, RN Social History Tobacco Use [...] on filedocumented in this encounter Care Teams X Ray Technologist Relationship Specialty Start Date End Date Leonor Hendricks MD [address] [place] [address] PCP - General Family Medicine 11/27/16 documented as of this encounter
--- OUTSIDE RECORDS SUMMARY | 2024-02-04 01:24 | XMS_ITS | Encounter Summary ---
Author Organization [facility] [place] [address] Care Team Providers Care Data Support Analyst Name Role Phone Leonor Hendricks MD Primary Care Provider [phone] Encounter Details Date Type Department Care Team (Latest Contact Info) Description 07/19/2020 3:30 PM EST TH Visit (TeleHealth) [place] [address] Yarlei Morales MD [facility] [place] [address] Misha's thyroiditis; Type 2 diabetes mellitus without complication, without [...] as of this encounter Progress Notes * Yaerli Morales MD - 07/19/2020 3:30 PM EST Endocrinology Clinic Follow-up Visit - Telehealth Video Visit. Reason for Visit: Follow-up of DM type 2 HISTORY OF PRESENT ILLNESS: Ms. Jesika Ryan is a 47 y.o. year old lady with history significant for DM type 2, newly diagnosed in December 2017 after being prediabetic [...] for her, so she got a glucometer. At last visit about 9 months ago, she was doing quite well on her regimen of metformin, victoza, and jardiance. She had lost 11 lbs with [employer]. We did not make any changes at that time. Three weeks ago, she had a hysteroscopy and D&C for uterine polyps; glucose level just prior tothe procedure (fasting) was 155 mg/dL. Checking FSBG about 1.5 hours after breakfast 130s-150s. PCP is going to be checking A1c next week. She's Her weight has remained stable since last visit. Avoiding pepsi past 2 months. Date of Diagnosis: December 2017 Last HgbA1c: 7.5% (01/08/19), 8.8% (September 2018), 11.2% (Jul 2018), 8.4% (04/11/18), 9.2% (December 2017 - with PCP), 5.4% (2016) Current Diabetes Medication regimen: Metformin 1000mg BID victoza 1.8mg Jardiance 25mg daily FSBG regimen: as above Hypoglycemia: none Diet: cut out pasta, hard to cut out bread, but eats whole wheat. Produce, chicken, hard boiled eggs, fish, Avoiding sweets. Mostly drinks water or unsweetened tea, when she craves sweetened beverage she goes for diet snapple iced tea. Physical Activity: walking every day with a group of friends. Smoking: quit December 2015. History of complications 1) Nephropathy - Um:cr 6.9 (01/08/19) , sCr 0.88 GFR 60 (04/11/18) 2) Neuropathy - no n/t. 3) Retinopathy - Last ophtho evaluation - sees Dr. Martin at [facility], no DR (August 2018). Currently [...] respirations Neuro: , no focal findings ASSESSMENT: 48 yo F who is type 2 diabetic as of December 2017, doing well on current diabetes regimen of metformin, jardiance, and Victoza. She's had some success with losing weight, which has helped aswell. Her FSBG readings fasting and pre-dinner are at goal. PLAN: --continue current diabetes regimen: Metformin 1000mg BID victoza 1.8mg Jardiance 25mg daily --labs at [facility] in near future: Orders Placed This Encounter Procedures ??? TSH ??? LDL Cholesterol, Direct ??? Comprehensive metabolic panel (non-fasting) ??? U Albumin/Cre Ratio Call duration 10 min YARELI MORALES MD Cage Supervisorvinegar maker Section of Endocrinology [facility] in this encounter Plan of Treatment Not on file documented as of this encounter Visit Diagnoses Diagnosis Misha's thyroiditis Chronic lymphocytic thyroiditis Type 2 diabetes mellitus without complication, without long-term current use of insulin documented in this encounter Care Teams Data Support Analyst Relationship Specialty Start Date End Date Leonor Hendricks MD [address] [place] [address] PCP - General Family Medicine 11/27/16 documented as of this encounter
--- OUTSIDE RECORDS SUMMARY | 2024-02-04 01:24 | XMS_ITS | Encounter Summary ---
[place] [address] Care Team Providers Care Furniture Mechanic Name Role Phone Leonor Hendricks MD Primary Care Provider [phone] Encounter Details Date Type Department Care Team (Late st Contact Info) Description 10/20/2021 Refill Dermatology at [place] [address] [facility] [place] [id number] Andreas Richardson MD [address], [place] [address] Social History Tobacco Use Types Packs/Day Years [...] on filedocumented in this encounter Care Teams Furniture Mechanic Relationship Specialty Start Date End Date Leonor Hendricks MD [address] [place] [address] PCP - General Family Medicine 11/27/16 documented as of this encounter
--- OUTSIDE RECORDS SUMMARY | 2024-02-04 01:24 | XMS_ITS | Encounter Summary ---
Author Organization [facility] [place] [address] Care Team Providers Care Dry Molder Name Role Phone Leonor Hendricks MD Primary Care Provider [phone] Reason for Visit * Reason Comments Medication Refill Encounter Details Date Type Department Care Team (Late st Contact Info) Description 11/15/2022 [place] [address] Blade Martinez MD [facility] [place] [address] Social History Tobacco Use Types Packs/Day Years [...] on filedocumented in this encounter Care Teams Dry Molder Relationship Specialty Start Date End Date Leonor Hendricks MD [address] [place], [place] [address] PCP - General Family Medicine 11/27/16 documented as of this encounter
--- OUTSIDE RECORDS SUMMARY | 2024-02-04 01:24 | XMS_ITS | Encounter Summary ---
Author Organization Formerly [facility] [place] [address] Care Team Providers Care Tire Finisher Name Role Phone Leonor Hendricks MD Primary Care Provider [phone] Reason for Referral * Consultation (Urgent) - Closed Specialty Diagnoses / Procedures Referred By Contac t Referred To Contact Endocrinology Diagnoses Uncontrolled type 2 diabetes mellitus with hyperglycemia, without long-term current use of insulin Blade Martinez MD [facility] [place] [address] [facility] [place] [address] Referral ID Status Reason Start Date Expiration Date V isits Requested Visits Authorized [id number] Closed Continuity of Care 11/25/2020 11/25/2021 1 1 Encounter Details Date Type Department Care Team (Latest Contact Info) Description 11/25/2020 1:00 PM EDT TH Visit (TeleHealth) Endocrinology at [facility], [place] [address] Blade Martinez MD [facility] [place] [address] Uncontrolled type 2 diabetes mellitus with hyperglycemia, without long-term current use of insulin; Hypertriglyceridemia; Misha's thyroiditis Social History Tobacco Use Types Packs/Day Years [...] Taken Comments Blood Pressure - - Pulse 80 11/25/2020 1:11 PM EDT Temperature - - Respiratory Rate 12 11/25/2020 1:11 PM EDT Oxygen Saturation - - Inhaled Oxygen Concentration - - Weight 101.6 kg (224 lb) 11/25/2020 1:11 PM EDT Height 160 cm (5' 3) 11/25/2020 1:11 PM EDT Body Mass Index 39.68 11/25/2020 1:11 PM EDT documented in this encounter Patient Instructions * Patient Instructions* Blade Martinez MD - 11/25/2020 1:00 PM EDT Metformin 1000 mg bid Jardiance 25 mg qd Adjust insulin per protocol below Start Dexcom CGM soon To see Marta Iglesias RD our fermenter champagne for carb counting & CGM training/ download & link CGM data to our practice. Insulin Instructions To start using Dexcom G6 CGM as ordered. You have an appointment with Dr. Martinez at [facility] ([facility]). Please take your blood glucose (BG) and insulin record with you. Instructions for Lantus Insulin This is the long-acting insulin. Inject Lantus at the same time each day. Your current dose is 25-30 units daily. If the BG before breakfast is higher [...] your meal. Take 1 unit for every 10 grams of carbohydrate: Total carb in meal 10 grams = Novolog 1 unit 20 grams = Novolog 2 units 30 grams = Novolog 3 units 40 grams = Novolog 4 units 50 grams = Novolog 5 units 60 grams = Novolog 6 units 70 grams = Novolog 7 units 80 grams = Novolog 8 units If you should forget to take your [...] to have your insulin doses adjusted. [facility] Endocrine clinic office PLAN: 1. Type 2 DM --Increase Lantus from 25 to 30 units daily. She is allowed to titrate the dose further by 2 units based on fasting BG (see details on insulin instruction below) --Adjust humalog based on 1u:10g cab at each meal - she knows how to read food label for carb amount and can download Calorie Morris ashvin to her phone to help estimate carb in various food. --Ok to continue same correction and use half dose at bedtime. It might be easier to use same sliding scale before meal and at bedtime based on 1u:25-30 Bg ratio --continue to stay off of Victoza until triglyceride level improves <400 x2 in a row and A1c is down to reasonable control . --continue Metformin 1000mg BID --continue Jardiance 25mg daily - Start Dexcom CGM soon - To see Marta Iglesias RD our fermenter champagne for carb counting & CGM training/ download & link CGM data to our practice. I am recommending this patient get a Dexcom G6 CGM for personal use. [...] panel with TSH and next A1c in 6 weeks, she will do at [facility] 3. History of Misha's thyroiditis with obesity (BMI ~40) - last TSH 3.99 in Jul 2018 at the borderline low thyroid - will monitor TSH at next lab draw since hypothyroid can aggravate hyperlipidemia and cause weightgain Orders Placed This Encounter Procedures ??? Hemoglobin A1c ??? Lipid Panel (Reflex Direct LDL) ??? TSH ??? Referral to Nutrition Services 4. Follow-up -6 weeks after next lab test for further management.. Total time spent on visit including face to face time with patient, placing orders and documentation was 45 minutes. Blade Martinez MD, PhD, FACE, FACP documented in this encounter Progress Notes * Blade Martinez MD - 11/25/2020 1:00 PM EDT Endocrinology Clinic Follow-up Visit - Telehealth Name: Jesika Ryan : 1970 PCP: Leonor Hendricks MD Date: 11/25/20 Reason for Visit: Follow-up visit for Type 2 diabetes recently started on insulin and hypertriglyceridemia. She used to see Dr. Morales with last visit 10/26/20 and is now transferred under my carefrom today (11/25/20). She recently had very high TG over 2,000 and then 1,037 on 10/25/20 and now 374 on 11/22/20 and already held victoza pen since 10/12/20 due to risk of pancreatitis and switched to insulin since then Patient verbally consents to this telehealth visit and understands that this visit may be billed, similar to a clinic office visit. I provided care to the patient today via VDO call. The total time associated with this visit was 65minutes. HISTORY OF PRESENT ILLNESS: Ms. Jesika Ryan [...] 7.5%. -- She started the insulin regimen on Sat10/12/20 evening - Lantus dose of 20 units daily and humalog TID for meals plus correction per sliding scale as needed. The Vazquez CGM was too expensive for her in the past (when she was not on insulin), so she used a glucometer and checked FSBG more frequently while using insulin -- Since she has been using basal-bolus insulin 4x/day since Sep, we will try to get her a Dexcom CGM to help closely monitor BG. DM regimen: Basaglar pen 25u qAM Humalog kwik pen 5u for meals TID (if eating 45-50 g carb) => to adjust to 1u:10g carb plus extra from sliding scale [...] 1000 mg bid Jardiance 25 mg qd (*victoza was on hold since 10/12/20 when TG >2,000, likely related to worsening DM control with staph cellulitis requiring antibiotics). She has been asymptomatic without abdominal pain. [...] 2,000 mg daily Very low fat and low carb diet Fasting labs at [facility] Date 10/25/20 11/22/20 Glucose 184 210 [...] at bedtime for high BG Last HgbA1c: 8.9% (10/14/20), 7.5% (01/08/19), 8.8% [...] as noted per HPI. PHYSICAL EXAM: Pulse 80 Resp 12 Ht 160 cm (5' 3) Wt 101.6 kg (224 lb) BMI 39.68 kg/m?? Appearance: obese, very pleasant, NAD HEENT: PERRLA, EOMI, no lid lag or exophthalmos Neck: supple, no goiter visible Ext: normal skin appearance no edema Neuro: no weakness, non-focal, no facial asymmetry. ASSESSMENT: 49 y.o. lady who has had type 2 [...] eating to keep A1c & TGdown further. PLAN: 1. Type 2 DM --Increase Lantus from 25 to 30 units daily. She is allowed to titrate the dose further by 2 units based on fasting BG (see details on insulin instruction below) --Adjust humalog based on 1u:10g cab at each meal - she knows how to read food label for carb amount and can download Calorie Morris ashvin to her phone to help estimate carb in various food. --Ok to continue same correction and use half dose at bedtime. It might be easier to use same sliding scale before meal and at bedtime based on 1u:25-30 Bg ratio --continue to stay off of Victoza until triglyceride level improves <400 x2 in a row and A1c is down to reasonable control . --continue Metformin 1000mg BID --continue Jardiance 25mg daily - Start Dexcom CGM soon - To see Marta Iglesias RD our fermenter champagne for carb counting & CGM training/ download & link CGM data to our practice. I am recommending this patient get a Dexcom G6 CGM for personal use. [...] panel with TSH and next A1c in 6 weeks, she will do at [facility] 3. History of Misha's thyroiditis with obesity (BMI ~40) - last TSH 3.99 in Jul 2018 at the borderline low thyroid - will monitor TSH at next lab draw since hypothyroid can aggravate hyperlipidemia and cause weightgain Orders Placed This Encounter Procedures ??? Hemoglobin A1c ??? Lipid Panel (Reflex Direct LDL) ??? TSH ??? Referral to Nutrition Services 4. Follow-up -6 weeks after next lab test for further management.. Total time spent on visit including face to face time with patient, placing orders and documentation was 65 minutes. Blade Martinez MD, PhD, [facility], [facility] Insulin Instructions To start using Dexcom G6 CGM as ordered. You have an appointment with Dr. Martinez at Endocrine Clinic (5-C). Please take your blood glucose (BG) and insulin record with you. Instructions for Lantus Insulin This is the long-acting insulin. Inject Lantus at the same time each day. Your current dose is 25-30 units daily. If the BG before breakfast is higher [...] your meal. Take 1 unit for every 10 grams of carbohydrate: Total carb in meal 10 grams = Novolog 1 unit 20 grams = Novolog 2 units 30 grams = Novolog 3 units 40 grams = Novolog 4 units 50 grams = Novolog 5 units 60 grams = Novolog 6 units 70 grams = Novolog 7 units 80 grams = Novolog 8 units If you should forget to take your [...] to have your insulin doses adjusted. [facility] Endocrine clinic office documented in this encounter Plan of Treatment Scheduled Referrals Name Type Priority Associated Diagnoses Orde r Schedule Referral to Nutrition Services Outpatient Referral Routine Uncontrolled type 2 diabetes mellitus with hyperglycemia, without long-term current use of insulin Ordered: 11/25/2020 documented as of this encounter Visit Diagnoses Diagnosis Uncontrolled type 2 diabetes mellitus with hyperglycemia, without long-term current use of insulin Hypertriglyceridemia Pure hyperglyceridemia Misha's thyroiditis Chronic lymphocytic thyroiditis documented in this encounter Care Teams Tire Finisher Relationship Specialty Start Date End Date Leonor Hendricks MD [address] [place] [id number] PCP - General Family Medicine 11/27/16 documented as of this encounter
--- OUTSIDE RECORDS SUMMARY | 2024-02-04 01:24 | XMS_ITS | Encounter Summary ---
[place] [address] Care Team Providers Care Training And Development Coordinator Name Role Phone Leonor Hendricks MD Primary Care Provider [phone] Encounter Details Date Type Department Care Team (Late st Contact Info) Description 04/14/2021 Telephone [facility] [address] [place] [address] Subha Kulkarni, RN Social History Tobacco Use Types Packs/Day [...] (pediatric) documented in this encounter Care Teams Training And Development Coordinator Relationship Specialty Start Date End Date Leonor Hendricks MD [address] [place] [address] PCP - General Family Medicine 11/27/16 documented as of this encounter
--- OUTSIDE RECORDS SUMMARY | 2024-02-04 01:24 | XMS_ITS | Encounter Summary ---
Author Organization Formerly [facility] [place] [address] Care Team Providers Care In Processing Instructor Name Role Phone Leonor Hendricks MD Primary Care Provider [phone] Reason for Visit * Reason Onset Date Comments Medication Refill 09/13/2021 Encounter Details Date Type Department Care Team (Late st Contact Info) Description 09/13/2021 [place] [address] Blade Martinez MD [facility] [address] Social History Tobacco Use Types Packs/Day Years [...] encounter Miscellaneous Notes * Telephone Encounter - Mónica Pena - 09/13/2021 3:37 PM EDT Pt is out and asked to have sent to the pharmacy [facility] please documented in this encounter Plan of Treatment Not on file documented as of this encounter Visit Diagnoses Not on filedocumented in this encounter Care Teams In Processing Instructor Relationship Specialty Start Date End Date Leonor Hendricks MD [address] [place] [address] PCP - General Family Medicine 11/27/16 documented as of this encounter
--- OUTSIDE RECORDS SUMMARY | 2024-02-04 01:24 | XMS_ITS | Encounter Summary ---
Author Organization [facility] [place] [address] Care Team Providers Care Laboratory Immunologist Name Role Phone Leonor Hendricks MD Primary Care Provider [phone] Encounter Details Date Type Department Care Team (Late st Contact Info) Description 06/13/2021 4:00 PM EST Office Visit Dermatology at [address] [address] Andreas Richardson MD [address] [facility] [place] [address] Psoriasis Social History Tobacco Use Types Packs/Day [...] Progress Notes * Andreas Richardson MD - 06/13/2021 4:00 PM EST Problem: 1. ??Follow-up psoriasis on Tremfya, initiated November 2017. ?? 2. ??On Cosentyx September 2016 through September 2017 with initial improvement but then allergic reaction 3. ??Previously on Stelara, Humira, Enbrel, cyclosporine, methotrexate, hydroxyurea, sulfasalazine,and Otezla 4. ??Psoriasis usually worse for this patient in the summer months, then better in the winter months Jesika follows up and states that she is now off of the Tremfya. Her psoriasis has not recurred. Shestates that in September she developed an abscess on her right abdomen and also an open sore in her right foot after stepping on a sheet rock screw that penetrated her foot at least an inch in depth.. She was on a number of courses of antibiotics and was advised to stop the Tremfya until the 2 areas healed. The patient is diabetic currently on on insulin. Because it took 2 months to heal her wounds, and her psoriasis had not recurred, she opted not to restart the Tremfya. Physical examination reveals a pleasant 50-year-old woman whose psoriasis is essentially quiescent.She has a couple of small papules on her elbows but no plaques and no involvement of the dorsal hands where she previously over the MCPs had fairly significant involvement. Assessment plan: Psoriasis, currently in remission after having been on Tremfya November 2017 through September 2020 1. Continue to hold Tremfya 2. We will monitor her closely however, and I like to see the patient back in 6 months for repeat check. 3. Patient congratulated on her current remission from her psoriasis CC: Leonor Hendricks MD documented in this encounter Plan of Treatment Not on file documented as of this encounter Visit Diagnoses Diagnosis Psoriasis Other psoriasis documented in this encounter Care Teams Laboratory Immunologist Relationship Specialty Start Date End Date Leonor Hendricks MD [address] [place] [address] PCP - General Family Medicine 11/27/16 documented as of this encounter
--- OUTSIDE RECORDS SUMMARY | 2024-02-04 01:24 | XMS_ITS | Encounter Summary ---
Author Organization Formerly [facility] [place] [address] Care Team Providers Care Horticultural Worker Name Role Phone Leonor Hendricks MD Primary Care Provider [phone] Reason for Visit * Reason Comments Chest Pain Encounter Details Date Type Department Care Team (Latest Contact Info) Description 05/09/2020 3:00 PM EST Ext Surgery or Single Event [address] [place] [address] Keith Gómez MD [facility] [place] [address] Chest pain, unspecified type Social History Tobacco Use Types Packs/Day Years [...] Procedure Name Priority Date/Time Associated Diagnosis Comments ECG SCAN 05/09/2020 12:00 AM EST STRESS TEST, EXERCISE (TREADMILL) Routine 05/09/2020 documented in this encounter Results * Stress Test, Exercise (Treadmill) (05/09/2020) Anatomical Region Laterality Modality Other Narrative 05/09/2020 Exercise Stress Test- Final Report ?? Jesika Ryan : 1970 [facility] Referring: Cem Indication: chest pain Date: 05/09/2020 Details: Medication: none pertinent Risk Factors: ??Fhx, obesity Resting EKG: nsr ? Resting HR ??96; Resting BP ??138/87 Summary: Max Exercise: Time: ??7 mins ??Stage: ??III ??Rudy ??METs: ??8.56 Max HR: ??167 (representing 96% of MPHR) Max BP: ??185/75 RPP: ??27.3k HR Deceleration: ??tardy Ischemia?: ??none Arrhythmias?: ??none Reason for Termination: dyspnea; non-limiting cp reported retrospectively Impression: Low probability, intermediate risk (DTS + 3) for coronary ischemia. ??~ 100% expected age/gender matched exertional capacity. Electronically Signed: Keith Gómez MD, 05/09/2020 3:18 PM Historical Provider CARDIAC SERVICES ORDERABLES * SCAN DOC: ECG (05/09/2020 12:00 AM EST) Narrative 05/09/2020 12:00 AM EST Ordered by an unspecified provider. Scanning Provider MEDIA MGR SCAN EXT O RDR/RSLT documented in this encounter Visit Diagnoses Diagnosis Chest pain, unspecified type documented in this encounter Care Teams Horticultural Worker Relationship Specialty Start Date End Date Leonor Hendricks MD [address] [place] [address] PCP - General Family Medicine 11/27/16 documented as of this encounter
--- OUTSIDE RECORDS SUMMARY | 2024-02-04 01:24 | XMS_ITS | Encounter Summary ---
Author Organization [facility] [place] [address] Care Team Providers Care Assistant Curator Name Role Phone Leonor Hendricks MD Primary Care Provider [phone] Encounter Details Date Type Department Care Team (Late st Contact Info) Description 10/06/2020 Telephone [place]ology [place] [id number] Alma Mcduffie MD [facility] DR HEMATOLOGY/[place] [address] Social History Tobacco Use Types Packs/Day Years [...] encounter Miscellaneous Notes * Telephone Encounter - Alma Mcduffie - 10/06/2020 9:52 AM EDT Reason for call: Call from Carlos UNGER from [facility] regarding thrombocytopenia Jesika Ryan is a 49 y.o. female with history of DM, psoriatic arthritis on tremfya, hypothyroidism, who recently finished the course of antibiotics for left foot infection and LLQ abdominal wall cellulitis. She was on Clindamycin - >Bactrim --> Cipro. She finished her abx 2 days ago. Following that she developed petechiae. CBC was done that showed plt of 15 K yesterday. Her rest of thelabs were normal normal LFT and RFT. She was sent to the ED for evaluation and treatment. In the ED labs were repeated: Hb 15, WBC 6.93, Plt 29, MPV 13.4 Smear showed large mag akaryocytes Her TSH 3.94 CMP is pending No vaccine No concern for VTE Recommendations: Most likely etiology is drug induced thrombocytopenia. Bactrim and Cipro both can cause thrombocytopenia. She had elevated MPV and large megakaryocytes showing that bone marrow is working. Since her counts are already improving, there is no need for transfusion or steroids at this time. I recommended to repeat labs in 48 - 72 hours to see the trend. If they are improving, no intervention is needed. However if they are dropping again, she may be given 40 mg dex daily for 4 days. I also encouraged to call us back for any questions and the issues. Alma Mcduffie MD, MS Hematology/Medical Oncology Fellow [facility] Page # [phone] 10/06/20, 12:00 PM documented in this encounter Plan of Treatment Not on file documented as of this encounter Visit Diagnoses Not on filedocumented in this encounter Care Teams Assistant Curator Relationship Specialty Start Date End Date Leonor Hendricks MD [address] [place] [address] PCP - General Family Medicine 11/27/16 documented as of this encounter
--- OUTSIDE RECORDS SUMMARY | 2024-02-04 01:24 | XMS_ITS | Encounter Summary ---
Author Organization [facility] [place] [address] Care Team Providers Care Bevel Polisher Name Role Phone Leonor Hendricks MD Primary Care Provider [phone] Encounter Details Date Type Department Care Team (Late st Contact Info) Description 05/03/2022 8:00 AM EST TH Visit (TeleHealth) Sleep Center at [facility] [address] [place] [address] Lucrecia Vang APRN [facility] [place] [address] MAGDALENE on CPAP Social History Tobacco Use [...] encounter Patient Instructions * Patient Instructions* Lucrecia Vang, ANTOINETTE - 05/03/2022 8:00 AM EST Plan/Recommendations: --Continue on 8-14cw --She needs a data card in her machine. Suggest she reach out to [facility] to ask them for a data card, have it sent to her, insert the data card into her machine, use CPAP overnight for a few nights, thenreturn data card to [facility] and have them fax us a copy of her data to: Sleep Medicine [phone] I will review the CPAP download when I have the data. Ongoing CPAP tips: --Adjust mask straps nightly while laying down with machine on, just to snug, for best fit; do not overtighten as it can cause discomfort and greater mask leak --Consider the PadACheek or other cloth mask liner for comfort or mask leak: for information, call [phone] or go to [email or web address] --To help reduce condensation in tubing, adjust humidity down or heated tubing temperature up. May try adjusting one at a time. --Call [facility] for questions on machine, supply replacements, billing --If dry mouth: 1) adjust humidity and/or heated tube temperature, 2) consider over the counter Biotene mouth rinse, 3) consider room humidifier and if chamber runs dry by morning --If nasal congestion: 1) Try adjusting PAP humidity level, 2) Consider OTC saline nasal spray: 2 sprays per nostril twice daily, before affixing mask in evening and after removing mask in morning, and/or 3) consider nasal saline wash at night before affixing mask, and/or 4) consider over the counter nasal steroid spray --Driving safety for everyone: do not drive if drowsy; if drowsy while driving, pick pulling machine tender to nap orrest --Follow-up in 1 year; contact me or make an appointment sooner as needed documented in this encounter Progress Notes * Lucrecia Vang APRN - 05/03/2022 8:00 AM EST Sleep Medicine Telehealth Follow-Up Note ?? CC/HPI: Ms. Jesika Ryan is a 51 y.o. female seen for annual follow-up of at least mild obstructive sleep apnea on CPAP therapy. Last seen Jan 2021. Download available today is from 2020. Her machine was recalled. She now has a replacement D2 machine. No updates to data online ?? Using CPAP therapy, doing well. She can't sleep without it. ?? Still has rainout situation. Bought cover for tubing, doesn't appear to help. Keeps room cold during sleep. ?? HPI continues below. ?? Patient in [place], [place] Visit by video ?? Sleep Study History: 12/24/16 consult with [place]: history of nightly and loud snoring, nocturnal gasping, unrefreshed sleep,mild-severe daytime sleepiness that varies, daytime cognitive difficulty.?She recently started on levothyroxine,??about a week now, for recently diagnosed Misha's thyroid.??Has been on SSRIs, Prozac and Zoloft, that didn't help but??just started Lexapro a few weeks ago. ??She has had anxietyall her life but is having worse anxiety for unknown reasons the past 6-7 months where she will wake at 5:30a daily, is wide awake, anxious, and exhausted. ??She sees a therapist and patient reports her therapist??thinks??it is something medical, otherwise has normal anxieties.?Patient takes lorazepam PRN--one tablet in morning and a half tablet in afternoon, has tapered her trazodone to 25mg QHS, and d/c'd propanolol. ??Patient has lost 43lbs since May 2016 due to anxiety, worry. She reports palpitations but had EKG and Holter monitor??tests??in 2015 which show normal sinus rhythm.?? Her??physical exam is signficant for BMI of 35, shallow pharynx, high hard palate, submental fat, aneck girth of 16 inches, bilateral hand tremor. ?? Significant comorbidities include Misha's thyroid, anxiety, psoriasis.? 12/28/16 HST, from Dr. Cintron's note: PRITESH: 5 4% PRITESH:2 Apnea index: 1 Central apnea index: 1 Hypopnea with desaturation >??or equal to 3% index: 5 Hypopnea with desaturation >??or equal to 4% index: 1 Average SpO2: 94% Minimum SpO2: 83% Weight: 195lbs Home sleep testing was non-diagnostic for obstructive sleep apnea. ?? 07/25/17 split PSG, from Dr. Lea's note: Obstructive sleep apnea of a severe degree??(AHI of 93.9) noted. ??CMS AHI of 40.2??which includes only apneas and hypopneas with 4% desaturations noted. ??Minimum saturation asleep of 85%. ??Mean saturation asleep pretreatment was 95%. Wt: 240lbs Recommendations:? 1. Auto-CPAP??with??a pressure??range??of 8-14cm, using a Bravida (XS/S)??mask, potentially with a need for mask re-fitment if leak is significant at home. ?? Treatment: APAP Device: replacement DS2, received 2020 Recalled DreamStation Auto CPAP, setup 08/12/17 Pressure: 8-14cw, ramp linear at 4cw for 20 mins Pressure Intolerance: fine Interface/Mask: Started with n/ps, Brevida, didn't work for her, didn't like nasal pillows; she is now using AirFit N20 Difficulty tolerating mask interface: she likes it Chin Strap: no HCC: [facility] Insurance: [facility] Snoring on CPAP: Not anymore Nocturnal gasping on CPAP: Not anymore ?? Sleep Pattern: Bed/Recliner/Wedge: bed # Pillows: 1 under head Bedtime: 8-8:30p, Lights out: a half hour-hour later, reads for awhile with mask on before falling asleep Position: stomach or back, not on sides Latency: < 30 mins Awakenings: twice per night to void ?Duration: depends what time it is, if midnight or 1am, can fall asleep quicker than if up to void later in night--might be about 30 mins latency Wake time: 6:30a, wakes without alarm, wide awake and not waking anxious anymore Rise time: now gets up and goes; before: will lay there to fall back asleep but can't, though she is exhausted TST: 7+ hours ?? Daytime Sleepiness Patient-reported last 4 scores: [facility] 11/13/2018 12/16/2019 02/13/2021 05/02/2022 [facility] 5 (Low Risk) 3 (Low Risk) 5 (Low Risk) 3 (Low Risk) Insomnia Severity Index 2 (No clinically significant insomnia) Incomplete 3 (No clinically significant insomnia) 0 (No clinically significant insomnia) VR12 - Physical Component Summary - - - - VR12 - Mental Component Summary - - - - ?? Driving: drives, no drowsiness; before: drowsy as she would if she sits at home; she would pick pulling machine tender or not even drive if very tired ?Close calls related to sleepiness:??no ?Accidents related to sleepiness: no ?? ROS: ENT: Nasal Obstruction: No CV: chest pain: none Palpitations: had heart catheterization about 20 years ago : Nocturia: no ?? 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 Past Medical History: Diagnosis Date ??? Misha's thyroiditis ??? Psoriasis Patient Active Problem List Diagnosis Code ??? Psoriasis L40.9 ??? 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 Anxiety F41.9 ??? Psoriatic arthritis L40.50 ??? High risk medication use Z79.899 ??? Type 2 diabetes mellitus with complication, without long-term current use of insulin E11.8 ??? MAGDALENE on CPAP G47.33, Z99.89 ??? Vitamin D deficiency E55.9 Physical Exam: Ht 160 cm (5' 3) Wt 101.2 kg (223 lb) BMI 39.50 kg/m?? General: 51 y.o. female, no distress; ?? Data Download: no download available for DS2 ?? Previous Data Download: Date Range: 11/12-02/09/21 Pressure: 8-14cw 90% 14 Avg 11 not topping out at 14 since leak fixed Residual AHI: 1.1 Avg Vibratory Snore Index: Elevated until 12/20 when something changed out Avg % Night in Large Leak: 0% Average Usage (Days Used/Hours): 11 hrs 18 mins # Days of usage: 90/90 100% % Days used > 4 hours: 100% ?? Date Range: 08/30/19-12/08/19 Pressure: 8-14cw 90% 12.6 [...] % Days used > 4 hours: 97% ?? Date Range: 08/12/17-09/23/17 Pressure: 8-14cw Residual AHI: 1.2 Avg Vibratory Snore Index: 17.2 Avg % Night in Large Leak: 0.3% Average Usage (Days Used/Hours): 5 hrs 14 mins # Days of usage: 40/43 93% % Days used > 4 hours: 77% ?? Assessment Ms. Jesika Ryan is a 51 y.o. female seen for f/u of at least mild obstructive sleep apnea on APAP therapy. Last seen Jan 2021. The latest data download is not available. Online 2021 scanned data is old, from 2020. She is using CPAP nightly, can't sleep without it. She now has a replacement D2 machine. No updates to data online. ASked her to reach out to [facility] for a data card, which she does not have in her machine, to obtain it, keepit in machine a few nights, then send back to [facility] and have them fax us the updated data download. Using CPAP therapy, doing well. She can't sleep without it. APAP 8-14cw remains well tolerated. Mask remains well tolerated. She is receiving and replacing supplies regularly. Still has rainout situation. Bought cover for tubing, doesn't appear to help. Keeps room cold during sleep. Reviewed adjusting both the humidity and heated tubing settings to help reduce and to keep tubing cover on tube. ??Plan/recommendations below. ?? Total time spent via telehealth with patient including charting, notes review, data download search, counseling and recommendations: 20 minutes For Medicare patients, telehealth visit required due to ongoing COVID-19 public health emergency ?? Plan/Recommendations:?? --Continue on 8-14cw --She needs a data card in her machine. Suggest she reach out to [facility] to ask them for a data card, have it sent to her, insert the data card into her machine, use CPAP overnight for a few nights, thenreturn data card to [facility] and have them fax us a copy of her data to: Sleep Medicine [phone] I will review the CPAP download when I have the data. Ongoing CPAP tips: --Adjust mask straps nightly while laying down with machine on, just to snug, for best fit; do not overtighten as it can cause discomfort and greater mask leak --Consider the PadACheek or other cloth mask liner for comfort or mask leak: for information, call [phone] or go to [email or web address] --To help reduce condensation in tubing, adjust humidity down or heated tubing temperature up. May try adjusting one at a time. --Call [facility] for questions on machine, supply replacements, billing --If dry mouth: 1) adjust humidity and/or heated tube temperature, 2) consider over the counter Biotene mouth rinse, 3) consider room humidifier and if chamber runs dry by morning --If nasal congestion: 1) Try adjusting PAP humidity level, 2) Consider OTC saline nasal spray: 2 sprays per nostril twice daily, before affixing mask in evening and after removing mask in morning, and/or 3) consider nasal saline wash at night before affixing mask, and/or 4) consider over the counter nasal steroid spray --Driving safety for everyone: do not drive if drowsy; if drowsy while driving, pick pulling machine tender to nap orrest --Follow-up in 1 year; contact me or make an appointment sooner as needed ?? The patient indicates understanding of these issues and agrees with the plan. ?? Lucrecia Vang APRN documented in this encounter Plan of Treatment Not on file documented as of this encounter Visit Diagnoses Diagnosis MAGDALENE on CPAP Obstructive sleep apnea (adult) (pediatric) documented in this encounter Care Teams Bevel Polisher Relationship Specialty Start Date End Date Leonor Hendricks MD [address] [place] [address] PCP - General Family Medicine 11/27/16 documented as of this encounter
--- OUTSIDE RECORDS SUMMARY | 2024-02-04 01:24 | XMS_ITS | Encounter Summary ---
Author Organization [facility] [place] [address] Care Team Providers Care Youth Program Director Name Role Phone Leonor Hendricks MD Primary Care Provider [phone] Encounter Details Date Type Department Care Team (Latest Contact Info) Description 04/15/2020 5:56 PM EDT - 04/15/2020 11:59 PM EDT Hospital [place] [address] Discharge Disposition: Home Social History Tobacco Use Types Packs/Day Years Used Date Smoking Tobacco: Former Cigarettes Q uit: 03/21/2015 Smokeless Tobacco: Never Alcohol Use Standard Drinks/Week Comments No 0 (1 standard drink = 0.6 oz pur e alcohol) Sex and Gender Information Value Date Recorded Sex Assigned at Not on file Gender Identity Not on file Sexual Orientation Not on file documented as of this encounter Medications at Time of Discharge Medication Sig Dispensed Refills Start Date End Date guselkumab (TREMFYA) 100 mg/mL Syringe Inject 100 mg subcutaneously Every 8 Weeks. Inject SC one prefilled syringe every eight weeks 1 Syringe 3 08/08/2018 norethindrone (AYGESTIN) 5 mg Tablet Take 5 mg by mouth daily. 6 09/26/2017 escitalopram (LEXAPRO) 20 mg Tablet Take 20 mg by mouth daily. 3 01/16/2017 metFORMIN (GLUCOPHAGE) 1,000 mg Tablet Take 1 tablet by mouth 2 times daily (with meals). 180 tablet 3 10/15/2019 11/01/2020 empagliflozin 25 mg Tablet Take 25 mg by mouth daily. 90 tablet 3 08/26/2019 08/31/2020 liraglutide (VICTOZA) 0.6 mg/0.1 mL (18 mg/3 mL) Pen Injector Inject 1.8 mg subcutaneously daily. ICD 10 Code: E11.9 9 Syringe 5 07/09/2019 07/27/2020 insulin needles, disposable, 32 gauge x 5/32 Needle 1 each by [facility].(Non-Drug; Combo Route) route daily. For Victoza injection. ICD 10 Code: E11.9 100 each 3 07/08/2019 08/04/2020 diclofenac (VOLTAREN) 1 % GelIndications:Psoria sis,Psoriatic arthritis,High risk medication use,Osteoarthritis, unspecified osteoarthritis type, unspecified site Apply 2 g topically 4 times daily as needed. 1 Tube 1 08/26/2018 11/25/2020 halobetasol (ULTRAVATE) 0.05 % Cream Apply to psoriasis twice daily 45 g 3 08/08/2018 11/25/2020 blood sugar diagnostic strips Strip Check blood sugar prior to each meal and at bedtime - 4 times daily. 400 each 3 07/31/2018 05/03/2020 documented as of this encounter Plan of Treatment Not on file documented as of this encounter Procedures Procedure Name Priority Date/Time Associated Diagnosis Comments COVID-19 PCR Routine 04/15/2020 9:13 AM EDT documented in this encounter Results * COVID-19 PCR (04/15/2020 9:13 AM EDT) SARS-CoV-2 RNA Not Detected Not Detected [facility] Comment: This result should be interpreted in combination with the clinical observations, patient history and epidemiological information in making a final diagnosis. For testing of asymptomatic individuals, assay performance characteristics and clinical utility have not been evaluated. Testing for SARS-CoV-2 (Severe acute respiratory syndrome coronavirus 2, formerly known as 2019 novel coronavirus or 2019-nCoV) to aid in the diagnosis of COVID-19 is performed using the [employer] RealTime SARS-CoV-2 Assay as authorized by the FDA Emergency Use Authorization (EUA). This EUA assay is intended for In-vitro Diagnostic (IVD) use with respiratory specimens such as nasopharyngeal swabs collected from individuals during the acute phase of infection. This assay is performed based on the instructions for use provided by [employer] and additional guidance provided by CDC and FDA. Testing is performed in the [facility] within the Department of Pathology and Laboratory Medicine at [facility], certified under the Clinical Laboratory Improvement Amendments of 1988 (CLIA), 42 U.S.C. 263a, to perform high complexity tests. Assay performance has been verified according to clinical laboratory regulatory requirements for use with specimens collected from individuals suspected of COVID-19. Test results are provided above. A result of ? Not Detected? indicates that the viral RNA target is not present above the limit of detection, but does not preclude SARS-CoV-2 infection. False negative results may occur if a specimen is improperly collected, transported or handled; if amplification inhibitors are present; or if inadequate numbers of viral particles are present in the specimen. When a diagnostic test is negative, the possibility of a false negative result should be considered in the context of a patient? s recent exposures and the presence of clinical signs and symptoms consistent with COVID-19. A result of ? Detected? indicates that RNA from SARS-CoV-2 was detected and the patient is infected. As required or requested by public health authorities, positive specimens may be sent for additional testing. Positive and negative predictive values for this test are highly dependent on disease prevalence. A result of ? Invalid? indicates that neither the viral RNA targets nor the internal control target was detected. An invalid result suggests the presence of inhibitors. Recollection and re-testing is recommended in the case of an invalid result. CDC COVID-19 criteria for testing on human specimens and clinical management guidance information are available at the CDC Coronavirus Disease 2019 (COVID-19) webpage under ? Information for Healthcare Professionals? (https://www.cdc.gov/coronavirus/2019-ncov/hcp/index.html) Additional information about this and other EUA tests can be found in provider and patient fact sheets at the following FDA website: https://www.fda.gov/medical-devices/kvxlszooxix-toznmgk-0074-iuusa-18-onlqclemn- use-a bhsuxbwmtrqyf-jkshbsv-lzoctpm/rbcjn-zmxkqaxemei-mmce SARS-CoV-2 RNA Source Nasal [facility] Specimen from nose (specimen) Other / Unknown 04/15/2020 9:13 AM EDT 04/15/2020 11:21 PM EDT Narrative Resulting Agency Comment Spec In Lab Fely Miramontes DO MOLECULAR ORDERABLES [facility] [place] [address] documented in this encounter Visit Diagnoses Not on filedocumented in this encounter Care Teams Youth Program Director Relationship Specialty Start Date End Date Leonor Hendricks MD [address] [place] [address] PCP - General Family Medicine 11/27/16 documented as of this encounter
--- OUTSIDE RECORDS SUMMARY | 2024-02-04 01:24 | XMS_ITS | Encounter Summary ---
Author Organization [facility] [place] [address] Care Team Providers Care Railroad Track Repair Supervisor Name Role Phone Leonor Hendricks MD Primary Care Provider [phone] Reason for Visit * Reason Onset Date Comments Medication Refill 11/04/2021 Encounter Details Date Type Department Care Team (Late st Contact Info) Description 11/04/2021 Refill [place] [address] Marianela Xiao MD [facility] [place] [address] Social History Tobacco Use Types Packs/Day Years [...] on filedocumented in this encounter Care Teams Railroad Track Repair Supervisor Relationship Specialty Start Date End Date Leonor Hendricks MD [address] [place] [address] PCP - General Family Medicine 11/27/16 documented as of this encounter
--- OUTSIDE RECORDS SUMMARY | 2024-02-04 01:24 | XMS_ITS | Encounter Summary ---
[place] [address] Care Team Providers Care Wire Machine Operator Name Role Phone Leonor Hendricks MD Primary Care Provider [phone] Encounter Details Date Type Department Care Team (Late st Contact Info) Description 05/26/2021 Telephone [place] [id number] Sheryl Bardales Social History Tobacco Use Types Packs/Day Years [...] on filedocumented in this encounter Care Teams Wire Machine Operator Relationship Specialty Start Date End Date Leonor Hendricks MD [address] [place] [address] PCP - General Family Medicine 11/27/16 documented as of this encounter
--- OUTSIDE RECORDS SUMMARY | 2024-02-04 01:24 | XMS_ITS | Encounter Summary ---
[place] [address] Care Team Providers Care Lacquer Coater Name Role Phone Leonor Hendricks MD Primary Care Provider [phone] Reason for Visit * Reason Comments Prior Authorization Tremfya 100mg/mL SOS Y Encounter Details Date Type Department Care Team (Late st Contact Info) Description 10/20/2021 Specialty Pharmacy [place] [address] Jean Paul Francis, FACILITY SUPERVISOR Social History Tobacco Use Types Packs/Day Years [...] Progress Notes * Jean Paul Francis - 10/20/2021 4:03 PM EDT [facility], Prior Authorization Approval Medication Name: TREMFYA 100 MG/ML SUBCUTANEOUS SYRINGE Medication ID: Approval Dates: 10/20/2021 to 10/20/2022 Insurance requirements/notes: RX#[id number] For reauth Other Notes: None Case/Reference #: [id number] Approval notification Received via: PENDING SALE TO [facility] Copay: Copay assistance: Copay Card Copay Notes: Insurance mandated Pharmacy: [facility] Fillable at [facility]: No Pharmacy staff will be reaching out to the patient to inform them of their medication's [facility]. If applicable, a pharmacist will speak with the patient to offer our specialty pharmacy services and to arrange delivery of their medication. Jean Paul Francis 10/20/21 4:09 PM [facility], Medication Prior Authorization Submission Patient: Jesika Ryan Patient : 1970 Patient Address: [address] [address] (home) Medication Name: TREMFYA 100 MG/ML SUBCUTANEOUS SYRINGE Medication ID: Subscriber Insurance: Endra ([facility]) Subscriber Insurance Comment: Fax: Physician: ADDY WANG Physician Comment: Sent Via: PENDING SALE TO [facility] Graham: [id number] Ref/Case/PA#: Medication Strength Frequency Requested: Tremfya 100mg/mL SOSY. Inject the contents of one syringe (100mg) SQ at weeks 0 and 4, then every 8 weeks thereafter. Qty/Day Supply: 07/14 New Start: Renewal Diagnosis & ICD-10 Code: Psoriasis L40.9 Patient Notified: No Submission Notes: None Jean Paul Francis 10/20/21 4:09 PM documented in this encounter Plan of Treatment Not on file documented as of this encounter Visit Diagnoses Not on filedocumented in this encounter Care Teams Lacquer Coater Relationship Specialty Start Date End Date Leonor Hendricks MD [address] [place] [address] PCP - General Family Medicine 11/27/16 documented as of this encounter
--- OUTSIDE RECORDS SUMMARY | 2024-02-04 01:24 | XMS_ITS | Encounter Summary ---
[place] [address] Care Team Providers Care Ballroom Dancer Name Role Phone Leonor Hendricks MD Primary Care Provider [phone] Reason for Visit * Reason Onset Date Comments Medication Refill 08/31/2020 Encounter Details Date Type Department Care Team (Late st Contact Info) Description 08/31/2020 Refill [place] [address] Leonel Escobedo, RN Social History Tobacco Use Types Packs/Day [...] on filedocumented in this encounter Care Teams Ballroom Dancer Relationship Specialty Start Date End Date Leonor Hendricks MD [address] [place] [address] PCP - General Family Medicine 11/27/16 documented as of this encounter
--- OUTSIDE RECORDS SUMMARY | 2024-02-04 01:24 | XMS_ITS | Encounter Summary ---
Author Organization [facility] [place] [address] Care Team Providers Care Plastic Mould Maker Name Role Phone Leonor Hendricks MD Primary Care Provider [phone] Encounter Details Date Type Department Care Team (Latest Contact Info) Description 10/12/2020 9:00 AM EDT TH Visit (TeleHealth) [place] [address] Yareli Morales MD [facility] [place] [address] Type 2 diabetes mellitus without complication, without long-term current use of insulin; Hypertriglyceridemia ; Misha's thyroiditis Social History Tobacco Use Types [...] Progress Notes * Yareli Morales MD - 10/12/2020 9:00 AM EDT Endocrinology Clinic Follow-up Visit - Telehealth [...] she got a glucometer. At last visit 2 months ago, she was doing quite well on her regimen of metformin, victoza, and jardiance. We did not make any changes at that time. Since that time she's had several health emergencies - two different infections which were treated with antibiotics, and soon followed by a sudden boutof thrombocytopenia. By the time she presented to the ER on the urging of her PCP for the low platelets, her platelet count had started improving, so she was not treated with steroids or plasmapheresis. Platelet count in bloodwork done last week had improved to normal. A few days ago, she contacted me to let me know that in that bloodwork last week (10/06/20), her PCPbecame alarmed at her triglyceride level of 2000, and advised her to notify me. Bloodwork also shows a concurrent plasma glucose level of 343 mg/dL. At that time, I advised her to stop victoza, startan insulin regimen instead, and start fenofibrate for triglyceride lowering. Insulin regimen I recommended starting to replace the victoza: glargine 30 units daily Humalog 10 units just prior to each meal, plus correction: Blood sugar 150 - 175, take 2 extra units Blood sugar 176 - 200, take 4 extra units Blood sugar 201 - 225, take 6 extra units Blood sugar 226 - 250, take 8 extra units Blood sugar above 250, take 10 extra units She updates today that she has not yet started the insulin, because when she went to the pharmacy yesterday, she was told they don't have Lantus in stock and that the Humalog needs a prior authorization. She took a dose of victoza yesterday, but did not take it yet as of this morning. She is headedto the pharmacy right after this appointment to cotton picker the insulin and she will start taking it right away. She did cotton picker the fenofibrate and took first dose last night. She admits that she has not been checking her glucose levels that often. Yesterday 2 hr post-breakfast 180 Bedtime 280 Today Fasting 190 So far she has felt fine and denies any epigastric discomfort. She says she had an A1c checked recently - was 8.7%. Date of Diagnosis: December 2017 Last HgbA1c: 7.5% (01/08/19), 8.8% (September 2018), 11.2% (Jul 2018), 8.4% (04/11/18), 9.2% (December 2017 - with PCP), 5.4% (2016) Current Diabetes Medication regimen: Metformin 1000mg BID Jardiance 25mg daily Lantus 30 units daily Humalog 10 units TIDAC plus correction Blood sugar 150 - 175, take 2 extra units Blood sugar 176 - 200, take 4 extra units Blood sugar 201 - 225, take 6 extra units Blood sugar 226 - 250, take 8 extra units Blood sugar above 250, take 10 extra units FSBG regimen: as above Hypoglycemia: none Diet: [...] ophtho evaluation - sees Dr. Martin at [facility], no DR (August 2018). Currently office is [...] as of December 2017, currently experiencing severe hypertriglyceridemia. Her glucose control has been suboptimal lately but at least in the past couple days seems to have improved some since the plasma glucose of 343 last week. Current FSBG ranging from 180s-240s. I reinforced today that the switch from victoza to insulin is intended to just be temporary until her triglycerides come down to a safer range (under 500) for acute pancreatitis risk. PLAN: --start insulin regimen today: glargline 30 units daily + humalog 10 units TIDAC plus correction Blood sugar 150 - 175, take 2 extra units Blood sugar 176 - 200, take 4 extra units Blood sugar 201 - 225, take 6 extra units Blood sugar 226 - 250, take 8 extra units Blood sugar above 250, take 10 extra units --stay off of Victoza until triglyceride level improves. --continue Metformin 1000mg BID --continue Jardiance 25mg daily --fasting labs to be done at [facility] later this week. She plans to have this done 2 days from now (on Saturday). Orders Placed This Encounter Procedures ??? Lipid Panel (Reflex Direct LDL) ??? CMP w/fasting Glucose ??? Hemoglobin A1c ??? TSH --urgent telehealth follow-up appointment next week on Saturday10/18/20 at 12:30pm Total time spent on visit including discussion with patient, placing orders and documentation was 45 minutes. YARELI MORALES MD Silk Finisherdirector of corporate sales Section of Endocrinology [facility] documented in this encounter Plan of Treatment Not on file documented as of this encounter Visit Diagnoses Diagnosis Type 2 diabetes mellitus without complication, without long-term current use of insulin Hypertriglyceridemia Pure hyperglyceridemia Misha's thyroiditis Chronic lymphocytic thyroiditis documented in this encounter Care Teams Plastic Mould Maker Relationship Specialty Start Date End Date Leonor Hendricks MD [address] [place] [address] PCP - General Family Medicine 11/27/16 documented as of this encounter
--- OUTSIDE RECORDS SUMMARY | 2024-02-04 01:24 | XMS_ITS | Encounter Summary ---
Author Organization [facility] [place] [address] Care Team Providers Care Mold Mover Name Role Phone Leonor Hendricks MD Primary Care Provider [phone] Reason for Visit * Reason Comments Medication Refill Encounter Details Date Type Department Care Team (Late st Contact Info) Description 10/08/2022 Refill [place] [address] Blade Martinez MD [facility] [place] [address] Social History Tobacco Use Types Packs/Day Years [...] on filedocumented in this encounter Care Teams Mold Mover Relationship Specialty Start Date End Date Leonor Hendricks MD [address] [place], [place] [address] PCP - General Family Medicine 11/27/16 documented as of this encounter
--- OUTSIDE RECORDS SUMMARY | 2024-02-04 01:24 | XMS_ITS | Encounter Summary ---
Author Organization [facility] [place] [address] Care Team Providers Care Clinical Sales Consultant Name Role Phone Leonor Hendricks MD Primary Care Provider [phone] Encounter Details Date Type Department Care Team (Latest Contact Info) Description 07/24/2022 2:30 PM EST TH Visit (TeleHealth) [place] [phone] Blade Martinez MD [facility] [place] [address] Uncontrolled type 2 diabetes mellitus with hyperglycemia, without long-term current use of insulin; Misha's thyroiditis; Vitamin D deficiency Social History Tobacco Use [...] - - Temperature - - Respiratory Rate 12 07/24/2022 2:38 PM EST Oxygen Saturation - - Inhaled Oxygen Concentration - - Weight 100.7 kg (222 lb) 07/24/2022 2:38 PM EST Height 160 cm (5' 3) 07/24/2022 2:38 PM EST Body Mass Index 39.33 07/24/2022 2:38 PM EST documented in this encounter Patient Instructions * Patient Instructions* Blade Martinez MD - 07/24/2022 2:30 PM EST PLAN: 1. Type 2 DM --To continue Tresiba pen 26-30 units per insurance. She is allowed to titrate the dose further by 2-5 units based on fasting BG down to target of 90-140 mg/dl as instructed. -- To switch ozempic pen 1 mg to Mounjaro 10 mg sc weekly. --To cont Humalog 5-15u TID/QID 1u:5g carb and extra for [...] 3 months, she will do at [facility] 3. History of Misha's thyroiditis [...] and then weekly (normal 30-100), - To continue vitamin D 50,000 iu daily weekly for severe vitD deficiency - recheck lab in 3 mo 5. Follow-up 3-6 months after next lab test (standing order q 3mo for A1c, lipids, and 25vitamin D)for further management. Orders Placed This Encounter Procedures Hemoglobin A1c Lipid Panel (Reflex Direct LDL) Vitamin D, 25-Hydroxy Blade Martinez MD, PhD, FACE, FACP documented in this encounter Progress Notes * Blade Martinez MD - 07/24/2022 2:30 PM EST Endocrinology Clinic Follow-up Visit Name: Jesika Ryan : 1970 PCP: Leonor Hendricks MD Date: 07/24/22 Reason for Visit: Follow-up visit for Type 2 diabetes on insulin plus pills/GLP1 and also hypertriglyceridemia (TG > 2000s => better 374 on 11/22/20). She used to see Dr. Morales until 10/26/20and was transferred under my care from since 11/25/20. She had Covid19 PNA admitted in ICU for 8 days in Feb 2021 ([facility]), on BIPCP but no need for intubation with full recovery. Patient verbally consents to this telehealth visit and understands that this visit may be billed, similar to a clinic office visit. I provided care to the patient today via VDO call. The total time associated with this visit, chartreview, documentation, and coordination of care was 30 minutes. HISTORY OF PRESENT ILLNESS: Ms. Jesika Ryan is a 51 y.o. lady with history significant for DM [...] 8 days in Feb 2021 at [facility], on BIPCP but no need [...] December 2017, using Dexcom CGM Tresiba pen 26u qAM to keep fasting BG 90-150 (changed from basaglar to Tresiba pen same dose per insurance since 01/10/22) Humalog kwik pen 1u:5g carb pBID/TID scott extra from sliding scale if high before [...] Ozempic pen 1 mg sc weekly => will try to switch to Monujaro 10 mg sc weekly to keep her A1c & weight down further. She has been asymptomatic without abdominal pain. N/V and tried to eat low fat low carb plus medication to help lower TG from >2,000 to 300s after a few months which is excellent. As her TG <400, we resumed victoza pen => switched to ozempic pen weekly as above. She used to lose wt down with ozempic but now plateau even after lots of walking daily and tried tolimit portion size and calory. At least she kept her weight stable at 222 lbs with BMO down to 39 now. We can try to switch to Mounjaro weekly pen today (07/24/22)/ She has no FH of hyperTG that she is aware of. No etoh and already quit smoking 4 yrs ago. Lipid Rx regiem: Fenofibrate 145 mg qd -since 10/11/20 Crestor 20 mg qd Fish oil 2,000 mg 2x daily Very low fat and controlled carb diet Labs at [facility] Date 10/25/20 11/22/20 01/03/21 Glucose 184 210 GFR 60 Cr 0.8 Triglyceride 1,037 374 380 Outside lab at [facility] Date 05/25/21 09/18/21 11/29/21 07/13/22 [...] ophtho evaluation - sees Dr. Martin at [facility], no DR (August 2018). 4) CV [...] as noted per HPI. PHYSICAL EXAM: Resp 12 Ht 160 cm (5' 3) Wt 100.7 kg (222 lb) BMI 39.33 kg/m?? Appearance: obese, very pleasant, NAD HEENT: PERRLA, EOMI, no lid lag or exophthalmos Neck: supple, no goiter visible Ext: normal skin appearance no edema Neuro: no weakness, non-focal, no facial asymmetry. Outside lab at [facility] Date 05/25/21 09/18/21 11/29/21 07/13/22 [...] yet. Take care. BLADE MARTINEZ MD ASSESSMENT: 51 y.o. lady who has had type 2 [...] and then stable in 300s in December 2020, always <1,000 since then. She is also on fenofibrate 145 mg daily, crestor 20 mg qd. and fishoil (lovaza) in addition to very low fat/low carb diet and high-intensity statin. We switched her victoza to ozempic since late December 2020 and cont basal-bolus insulin regimen with goal to keep A1c <7% andl triglycerides under 500 consistently. She has reduced insulin need after using Ozempic penand knows to adjust Humalog based on carb [...] months. PLAN: 1. Type 2 DM --To use Tresiba pen 26-30 units (not lantus per insurance). She is allowed to titrate the dose further by 2-5 units based on fasting BG down to target of 90- 140 mg/dl as instructed. -- To switch ozempic pen 1 mg to Mounjaro 10 mg sc weekly. --To cont Humalog 5-15u BID/TID 1u:5g carb and extra for correction (to [...] 3 months, she will do at [facility] 3. History of Misha's thyroiditis with obesity (BMI ~40) - TSH 3.99 in Jul 2018 at the borderline low thyroid => good TSH 1.88 on repeat (4/4/22) - will monitor TSH in 6 mo [...] severe vitD deficiency - recheck lab in 3 mo 5. Follow-up 3-6 months after next lab test (standing lab orders q 3 mo for A1c, lipids, and 25vitamin D) and TSH in 6 mo at [facility] lab) for further management. Blade Martinez MD, PhD, FACE, FACP documented in this encounter Plan of Treatment Not on file documented as of this encounter Visit Diagnoses Diagnosis Uncontrolled type 2 diabetes mellitus with hyperglycemia, without long-term current use of insulin Misha's thyroiditis Chronic lymphocytic thyroiditis Vitamin D deficiency Unspecified vitamin D deficiency documented in this encounter Care Teams Clinical Sales Consultant Relationship Specialty Start Date End Date Leonor Hendricks MD [address] [place] [address] PCP - General Family Medicine 11/27/16 documented as of this encounter
--- OUTSIDE RECORDS SUMMARY | 2024-02-04 01:24 | XMS_ITS | Encounter Summary ---
Author [facility] [place] [address] Care Team Providers Care Insurance Appraiser Name Role Phone Leonor Hendricks MD Primary Care Provider [phone] Encounter Details Date Type Department Care Team (Late st Contact Info) Description 10/06/2020 Telephone [place] [phone] Leonel Escobedo RN Social History Tobacco Use Types Packs/Day [...] encounter Miscellaneous Notes * Telephone Encounter - Clay Kenny RN - 10/06/2020 9:49 AM EDT Jacinta Browne, DO sent to Clay Kenny RN Caller: Unspecified (Today, ??8:10 AM) Ria would need a new pt appointment, has not been seen in a long time and we are not prescribing anything to her RTC to Jesika and she reports that she is in the ED at [facility] right now, but does not feel that we nelli anything for her at this time, she has our phone#, if she needs to reach out to Rheumatology after her ED visit. * Telephone Encounter - Leonel Escobedo RN - 10/06/2020 8:10 AM EDT Patient called the back line today to report on her health per her PCP's request. She says she wentto her doctor because she has a blood blistery rash. They did some lab testing. Today they advised her to go to the emergency room as her platelets came back dangerously low. At this point, that is all she knows and her PCP wanted her to update her rectification printer and hand hide stretcher. She is at the emergency room at [facility] which is also where the labs were done yesterday. I have sent a fax requesting the results. documented in this encounter Plan of Treatment Not on file documented as of this encounter Visit Diagnoses Not on filedocumented in this encounter Care Teams Insurance Appraiser Relationship Specialty Start Date End Date Leonor Hendricks MD [address] [place] [address] PCP - General Family Medicine 11/27/16 documented as of this encounter
--- OUTSIDE RECORDS SUMMARY | 2024-02-04 01:24 | XMS_ITS | Encounter Summary ---
Author Organization [facility] [place] [address] Care Team Providers Care Painter Supervisor Name Role Phone Leonor Hendricks MD Primary Care Provider [phone] Reason for Visit * Reason Comments Follow-up Encounter Details Date Type Department Care Team (Late st Contact Info) Description 12/21/2021 4:30 PM EDT Office Visit Dermatology at [address] [phone] Anderas Richardson MD [address] [facility] [place] [address] Psoriasis Social History Tobacco Use Types Packs/Day [...] Progress Notes * Andreas Richardson MD - 12/21/2021 4:30 PM EDT Problem: 1. ??Follow-up psoriasis on Tremfya, initiated November 2017 through February 2021 2. ??On Cosentyx September 2016 through September 2017 with initial improvement but then allergic reaction 3. ??Previously on Stelara, Humira, Enbrel, cyclosporine, methotrexate, hydroxyurea, sulfasalazine,and Otezla 4. ??Psoriasis usually worse for this patient in the summer months, then better in the winter months Jesika follows up and has restarted her Tremfya. She had 1 dose so far. Physical examination reveals psoriasis present in small papules and patches over the dorsal MCPs and PIPs of her hands as well as little bit on her elbows and knees patient also has some patches within the parietal scalp anteriorly mid and posteriorly. Assessment plan: Psoriasis back on Tremfya 1. Continue Tremfya injections will be given 100 mg subcutaneously at week 0- week 4 and then q. 8 weeks thereafter 2. Patient will continue this dosing we will plan another follow-up in a year 3. Today prescription given for 1 year supply of Tremfya. CC: Leonor Hendricks MD documented in this encounter Plan of Treatment Not on file documented as of this encounter Visit Diagnoses Diagnosis Psoriasis Other psoriasis documented in this encounter Care Teams Painter Supervisor Relationship Specialty Start Date End Date Leonor Hendricks MD [address] [place] [address] PCP - General Family Medicine 11/27/16 documented as of this encounter
--- OUTSIDE RECORDS SUMMARY | 2024-02-04 01:24 | XMS_ITS | Encounter Summary ---
Author Organization [facility] [place] [address] Care Team Providers Care Junior Business Analyst Name Role Phone Leonor Hendricks MD Primary Care Provider [phone] Encounter Details Date Type Department Care Team (Latest Contact Info) Description 10/26/2020 8:30 AM EDT TH Visit (TeleHealth) [place] [address] Yareli Morales MD [facility] [place] [address] Hypertriglyceridemia ; Type 2 diabetes mellitus without [...] Progress Notes * Yareli Morales MD - 10/26/2020 8:30 AM EDT Endocrinology Clinic Follow-up Visit - [...] her A1c had improved to 7.5%. The Vazquze was too expensive for her, so she [...] done last week had improved to normal. Two weeks ago, she contacted me at the urging of her PCP because her triglycerides were in the 2000s. I started her on fenofibrate - she started taking it on Wednesday 10/11. She had a follow-up telehealth visit with me on 10/12 -- at that time she hadn't yet start taking the insulin but had stopped the victoza as of that morning, per my instructions. She started the insulin regimen on Thursday 10/12 evening - Lantus dose of 20 units daily, but she was only taking humalog correction not the prandial dosage. She then had another telehealth visit with me 1 week ago on 10/18/20. Plan at that telehealth visit was as follows: Increase Lantus to 25 units daily. Humalog [...] --repeat fasting lipid profile and BMP at [facility] in 1 week (next Tuesday 10/24). --telehealth follow-up appointment next week on SaturdayOctober 26 at 8:30am. Fasting labs 10/25/20 at [facility] Glucose 184 GFR 60 Triglycerides 1037 FSBG Fasting - low 200s, this AM 193 Pre-lunch 120s-160s Pre-Dinner - 2-hrs after dinner - 260s, 270s Date of Diagnosis: December 2017 Last HgbA1c: 8.9% (10/14/20), 7.5% (01/08/19), 8.8% (September 2018), 11.2% (Jul 2018), 8.4% (04/11/18), 9.2% (December 2017 - with PCP), 5.4% (2016) Current Diabetes Medication regimen: Lantus 25 units daily Humalog - 5 units of prandial, plus correction: Blood sugar 150 - 175, take 2 extra units Blood sugar 176 - 200, take 4 extra units Blood sugar 201 - 225, take 6 extra units Blood sugar 226 - 250, take 8 extra units Blood sugar above 250, take 10 extra units Metformin 1000mg twice daily Jardiance 25 mg daily FSBG regimen: as above Hypoglycemia: none Diet: a lot of vegetables, chicken or pork or fish, EVOO Physical Activity: Smoking: quit December 2015. History of complications 1) Nephropathy - Um:cr 6.9 (01/08/19) , GFR >60 (10/06/20) 2) Neuropathy - no n/t. 3) Retinopathy - Last ophtho evaluation - sees Dr. Martin at [facility], no DR (August 2018). Currently office [...] December 2017, currently experiencing severe hypertriglyceridemia. Her triglyceride level continues to improve, from >2000 to 1037 range after two weeks on fenofibrate 145 mg daily. Will add high-intensity statin and lovaza/omega 3 today. I switched her temporarily from victoza to a basal bolus insulin regimen until her triglycerides are under 500, then she can go back on the victoza. On her insulin regimen, her fasting glucose levels are still a little bit elevated so will increase Lantus from 25 to 30 units daily. Her pre-dinner and 2-hour post dinner glucose levels have been high in the mid-200s, so will increase her prandial humalog doses at lunch and at dinner. PLAN: --Increase Lantus to 30 units daily. --Continue humalog 5 units with breakfast --Increase humalog to 8 units with lunch and dinner --Continue same correction --continue to stay off of Victoza until triglyceride level improves. --continue Metformin 1000mg BID --continue Jardiance 25mg daily 2. Hypertriglyceridemia - --continue fenofibrate 145 mg daily --start rosuvastatin 20mg daily --start lovaza 2g twice daily. --repeat fasting lipid panel in 2 weeks, she will do at [facility] 3. Follow-up - since I am leaving [facility] in a few weeks, we discussed transition of care to my colleague Dr. Martinez with telehealth appt in 1 month. I'll touch base with Jesika about her bloodwork in2 weeks -- I asked her to send me a Kiip message with her results, to expedite the process. Total time spent on visit including face to face time with patient, placing orders and documentation was 45 minutes. YARELI MORALES MD Email Production Consultantcriminal justice instructor Section of Endocrinology [facility] documented in this encounter Plan of Treatment Not on file documented as of this encounter Visit Diagnoses Diagnosis Hypertriglyceridemia Pure hyperglyceridemia Type 2 diabetes mellitus without complication, without long-term current use of insulin documented in this encounter Care Teams Junior Business Analyst Relationship Specialty Start Date End Date Leonor Hendricks MD [address] [place] [address] PCP - General Family Medicine 11/27/16 documented as of this encounter
--- OUTSIDE RECORDS SUMMARY | 2024-02-04 01:24 | XMS_ITS | Encounter Summary ---
[place] [address] Care Team Providers Care Chief Cook Name Role Phone Leonor Hendricks MD Primary Care Provider [phone] Encounter Details Date Type Department Care Team (Late st Contact Info) Description 10/12/2020 Ref[place] [phone] Leonel Escobedo RN Social History Tobacco Use [...] Telephone Encounter - Leonel Escobedo RN - 10/12/2020 12:52 PM EDT Patient left voicemail that Lantus needs a PA. Placed call to pharmacy asking if they know what is covered. Insurance prefers Basaglar. documented in this encounter Plan of Treatment Not on file documented as of this encounter Visit Diagnoses Not on filedocumented in this encounter Care Teams Chief Cook Relationship Specialty Start Date End Date Leonor Hendricks MD [address] [place] [address] PCP - General Family Medicine 11/27/16 documented as of this encounter
--- OUTSIDE RECORDS SUMMARY | 2024-02-04 01:25 | XMS_ITS | Encounter Summary ---
Author Organization [place] [address] Care Team Providers Care Demurrage Man Name Role Phone Leonor Hendricks MD Primary Care Provider [phone] Reason for Visit * Reason Comments Follow-up Psoriasis Encounter Details Date Type Department Care Team (Late st Contact Info) Description 07/22/2017 3:00 PM EST Office Visit Dermatology at [place] [address] [place] [address] Andreas Richardson MD [address] [facility], [place] [address] Psoriasis Social History Tobacco Use Types Packs/Day [...] Progress Notes * Andreas Richardson MD - 07/22/2017 3:00 PM EST Problem: 1 follow-up psoriasis, on Cosentyx since September 2016 2. Previous therapies include Stelara, Humira, Enbrel, cyclosporine, methotrexate, hydroxyurea, sulfasalazine, and Otezla. 3. Psoriasis usually worse for this patient in the summer months than in the winter months. When he follows up and been doing reasonably well. However she is getting a little bit more psoriasis on her dorsal hands. She has few areas over the knuckles. She reminds me that she works doing [email or web address]. Her hands are in out of water a lot but she does try to wear gloves. Physical examination reveals a thin patch psoriasis, not changed on the elbows and knees from her last visit in December. She does have a few small patches and macules present over the dorsal MCPs and phalangeal joints. Assessment plan: Psoriasis controlled with Cosentyx. 1. Continue crescentic 150 mg abductor pends. Inject 2 of these once monthly. She is injecting to her abdomen. She denies any fevers chills injection site reactions. 2. Prior authorization is in place for her. Prescription will be renewed for 6 month supply. 4. Recommend she begin clobetasol cream apply twice daily to affected areas of the dorsal hands twice daily. 45 g dispensed with 3 refills . Return to clinic here in another 6 months for repeat check Cc: Leonor Hendricks MD documented in this encounter Plan of Treatment Not on file documented as of this encounter Visit Diagnoses Diagnosis Psoriasis Other psoriasis documented in this encounter Care Teams Demurrage Man Relationship Specialty Start Date End Date Leonor Hendricks MD [address] [place] [address] PCP - General Family Medicine 11/27/16 documented as of this encounter
--- OUTSIDE RECORDS SUMMARY | 2024-02-04 01:25 | XMS_ITS | Encounter Summary ---
Author Organization [facility]ly [facility] [place] [address] Care Team Providers Care Machine Chain Maker Name Role Phone Leonor Hendricks MD Primary Care Provider [phone] Reason for Visit * Reason Comments Medication Refill Encounter Details Date Type Department Care Team (Late st Contact Info) Description 08/08/2019 Refill [place] [address] Yareli Morales MD [facility] [place] [address] Social History Tobacco Use Types Packs/Day Years [...] on filedocumented in this encounter Care Teams Machine Chain Maker Relationship Specialty Start Date End Date Leonor Hendricks MD [address] [place], [place] [address] PCP - General Family Medicine 11/27/16 documented as of this encounter
--- OUTSIDE RECORDS SUMMARY | 2024-02-04 01:25 | XMS_ITS | Encounter Summary ---
Author Organization [facility] [place] [address] Care Team Providers Care Material Lister Name Role Phone Leonor Hendricks MD Primary Care Provider [phone] Reason for Visit * Reason Comments Follow-up Psoriasis Encounter Details Date Type Department Care Team (Late st Contact Info) Description 08/08/2018 4:00 PM EST Office Visit Dermatology at [place] [address] [place] [address] Andreas Richardson MD 580 [facility], [place] [address] Psoriasis Social History Tobacco Use Types Packs/Day [...] Progress Notes * Andreas Richardson MD - 08/08/2018 4:00 PM EST Problem: 1. Follow-up psoriasis on Tremfya, status post 2 months of therapy, initiated November 2017. 2. On Cosentyx September 2016 through September 2017 with initial improvement but then allergic reaction 3. Previously on Stelara, Humira, Enbrel, cyclosporine, methotrexate, hydroxyurea, sulfasalazine, and Otezla 4. Psoriasis usually worse for this patient in the summer months, then better in the winter months. Jesika follows up and is doing well. That the Tremfya is working well for her. Her psoriasis is controlled except for some small patches on the dorsal MCPs and an area on her right knee. However she states that the abdomen is clear. The scalp is clear. Her elbows and left knee are clear. She is not itching. She is very satisfied. She has tolerated Tremfya without any side effects injection site reactions or problems. Physical examination confirms the above findings. Assessment plan: Psoriasis responding well to current Tremfya 1. Continue Tremfya 100 mg injecting one prefilled syringe subcutaneously every 2 months per patient in her home.. 2. We will new the prescription in a 6-month supply to her [facility] plan. 3 syringes will be a 6-month supply. 3. For psoriasis currently active the minimal remaining on the dorsal hands and right knee began halobetasol cream applying on a twice daily basis to affected sites. 45 g will be dispensed with 3 refills. 4. Return to clinic in 6 months for repeat check C: Leonor Hendricks MD documented in this encounter Plan of Treatment Not on file documented as of this encounter Visit Diagnoses Diagnosis Psoriasis Other psoriasis documented in this encounter Care Teams Material Lister Relationship Specialty Start Date End Date Leonor Hendricks MD [address] [place] [address] PCP - General Family Medicine 11/27/16 documented as of this encounter
--- OUTSIDE RECORDS SUMMARY | 2024-02-04 01:25 | XMS_ITS | Encounter Summary ---
[place] [address] Care Team Providers Care Town Manager Name Role Phone Leonor Hendricks MD Primary Care Provider [phone] Encounter Details Date Type Department Care Team (Latest Contact Info) Description 07/24/2018 12:30 PM EST Laboratory Appointment Lab [address] [id number] Hyperglycemia; Misha's thyroiditis; Type 2 diabetes mellitus without [...] Procedure Name Priority Date/Time Associated Diagnosis Comments CMP W/FASTING GLUCOSE Routine 07/24/2018 11:27 AM EST Hyperglycemia C-PEPTIDE Routine 07/24/2018 11:27 AM EST Hyperglycemia T3, FREE STAT 07/24/2018 11:27 AM EST Misha's thyroiditis TSH Routine 07/24/2018 11:27 AM EST Misha's thyroiditis T4, FREE Routine 07/24/2018 11:27 AM EST Misha's thyroiditis LDL CHOLESTEROL, DIRECT STAT 07/24/2018 11:27 AM EST Type 2 diabetes mellitus without complication, without long-term current use of insulin HEMOGLOBIN A1C STAT 07/24/2018 11:27 AM EST Type 2 diabetes mellitus without complication, without long-term current use of insulin documented in this encounter Results * (ABNORMAL) TSH (07/24/2018 11:27 AM EST) Thyroid Stimulating Hormone 4.30(H) 0.27 - 4.20 mlU/ML [facility] Blood specimen (specimen) 07/24/2018 11:27 AM EST 07/24/2018 11:40 AM EST Narrative Resulting Agency Comment Spec In Lab Yareli Morales MD CHEMISTRY ORDERABLES Performing Organization Address City/[facility]/ZIP Co de Phone Number [facility] [place] [address] * T4, free (07/24/2018 11:27 AM EST) Free T4 0.98 0.93 - 1.70 ng/dL [facility] Blood specimen (specimen) 07/24/2018 11:27 AM EST 07/24/2018 11:40 AM EST Narrative Resulting Agency Comment Spec In Lab Yareli Morales MD CHEMISTRY ORDERABLES [facility] [place] [address] * (ABNORMAL) Hemoglobin A1c (07/24/2018 11:27 AM EST) Hemoglobin A1c 11.2(H) 4.3 - 5.6 % [facility] Comment: Reference Range: 4.3 - 5.6% [...] Mellitus, Diabetes Care 2013; 36: Suppl. 1, W87-02 Estimated Average Glucose 275 mg/dL [facility] Comment: eAG equivalents for HbA1c percentages: [...] into estimated average glucose values. ??Diabetes Care 2008:31(8):8923-0341. Blood specimen (specimen) 07/24/2018 11:27 AM EST 07/24/2018 11:40 AM EST Narrative Resulting Agency Comment Spec In Lab Yareli Morales MD CHEMISTRY ORDERABLES [facility] [place] [address] * LDL Cholesterol, Direct (07/24/2018 11:27 AM EST) LDL Cholesterol, Direct 115 mg/dL [facility] Comment: Lowest Risk: <100 mg/dL Lower Risk: 100-129 mg/dL Borderline High Risk: 130-159 mg/dL High Risk: 160-189 mg/dL Very High Risk: >oi=647 mg/dL Blood specimen (specimen) 07/24/2018 11:27 AM EST 07/24/2018 11:40 AM EST Narrative Resulting Agency Comment Spec In Lab Yareli Morales MD CHEMISTRY ORDERABLES Performing Organization Address [facility] de Phone Number [facility] [place] [address] * (ABNORMAL) T3, free (07/24/2018 11:27 AM EST) Free T3 1.9(L) 2.0 - 4.4 pg/mL [facility] Blood specimen (specimen) 07/24/2018 11:27 AM EST 07/24/2018 11:40 AM EST Narrative Resulting Agency Comment Spec In Lab Yareli Morales MD CHEMISTRY ORDERABLES Performing Organization Address [facility] de Phone Number [facility] [place] [address] * (ABNORMAL) CMP w/fasting Glucose (07/24/2018 11:27 AM EST) Glucose Fasting 315(H) 65 - 99 mg/dL [facility] Comment: ?Fasting* Glucose Interpretive Criteria Normal ?65-99 mg/dL Impaired Fasting glucose ?100-125 mg/dL Consistent with Diabetes Mellitus ? >or= 126 mg/dL *Fasting is defined as no caloric intake for at least 8 hours In the absence of unequivocal hyperglycemia a plasma glucose value of >or= 126 mg/dL should be repeated on a subsequent day. Diagnosis and Classification of Diabetes Mellitus, Position Statement from the [place] [employer]. ??Diabetes Care, Volume 33, Supplement 1, Jun 2009 Blood Urea Nitrogen 15 8 - 18 mg/dL [facility] Creatinine 0.76 0.70 - 1.20 mg/dL [facility] Sodium 132(L) 135 - 145 mmol/L [facility] Potassium 4.5 3.5 - 5.0 mmol/L [facility] Comment: Please note: ??Patients with WBC >100,000 may have falsely elevated Potassium levels. ??For accurate Potassium quantification in these patients send serum separator tube (gold top) for subsequent determinations. ??Contact the Clinical Chemistry Laboratory if there are any questions. Chloride 92(L) 98 - 107 mmol/L [facility] Carbon Dioxide 24 22 - 31 mmol/L [facility] Anion Gap 16(H) 5 - 15 mmol/L [facility] Calcium 9.4 8.5 - 10.5 mg/dL [facility] Protein, Total 7.8 6.1 - 8.0 gm/dL [facility] Albumin 4.3 3.2 - 5.2 gm/dL [facility] Aspartate Aminotransferase 42(H) 0 - 30 unit/L [facility] Alanine Aminotransferase 44(H) 0 - 30 unit/L [facility] Alkaline Phosphatase 115(H) 40 - 104 unit/L [facility] Bilirubin, Total <0.2(L) 0.2 - 1.3 mg/dL [facility] Est Glomerular Filtration Rate 95 >=60 mL/min/1. 73 m?? [facility] Comment: The eGFR was calculated using the CKD-EPI equation. As with all creatinine based estimates of kidney function, eGFR values calculated with the CKD-EPI equation are not accurate in patients with acute kidney failure, extremes of body mass or the acutely ill. http://[employer]/DHMCnkf eGFR 110 >=60 mL/min/1. 73 m?? [facility] Comment: The eGFR was calculated using the CKD-EPI equation. As with all creatinine based estimates of kidney function, eGFR values calculated with the CKD-EPI equation are not accurate in patients with acute kidney failure, extremes of body mass or the acutely ill. http://[employer]/DHMCnkf Blood specimen (specimen) 07/24/2018 11:27 AM EST 07/24/2018 11:40 AM EST Narrative Resulting Agency Comment Spec In Lab Yareli Morales MD CHEMISTRY ORDERABLES Performing Organization Address [facility] Co de Phone Number [facility] [place] [address] * (ABNORMAL) C-peptide (07/24/2018 11:27 AM EST) C-Peptide 5.6(H) 0.8 - 5.2 ng/mL [facility] Blood specimen (specimen) 07/24/2018 11:27 AM EST 07/24/2018 11:40 AM EST Narrative Resulting Agency Comment Spec In Lab Yareli Morales MD CHEMISTRY ORDERABLES Performing Organization Address [facility] Co de Phone Number [facility] [place] [address] documented in this encounter Visit Diagnoses Diagnosis Hyperglycemia Other abnormal glucose Misha's thyroiditis Chronic lymphocytic thyroiditis Type 2 diabetes mellitus without complication, without long-term current use of insulin documented in this encounter Care Teams Town Manager Relationship Specialty Start Date End Date Leonor Hendricks MD [address] [place] [address] PCP - General Family Medicine 11/27/16 documented as of this encounter
--- OUTSIDE RECORDS SUMMARY | 2024-02-04 01:25 | XMS_ITS | Encounter Summary ---
Author Organization [facility] [place] [address] Care Team Providers Care Marketing Lead Name Role Phone Leonor Hendricks MD Primary Care Provider Encounter Details Date Type Department Care Team (Late st Contact Info) Description 01/08/2019 1:00 PM EDT Office [place] [phone] Yareli Morales MD [facility] [place] [address] Type 2 diabetes mellitus without complication, without long-term current use of insulin; Misha's thyroiditis Social History Tobacco Use Types [...] Sign Reading Time Taken Comments Blood Pressure 123/67 01/08/2019 12:44 PM EDT Pulse 102 01/08/2019 12:44 PM EDT Temperature - - Respiratory Rate - - Oxygen Saturation - - Inhaled Oxygen Concentration - - Weight 104.8 kg (231 lb) 01/08/2019 12:44 PM EDT Height 162.6 cm (5' 4) 01/08/2019 12:44 PM EDT Body Mass Index 39.65 01/08/2019 12:44 PM EDT documented in this encounter Progress Notes * Yareli Morales MD - 01/08/2019 1:00 PM EDT Images from the original note were not included. Endocrinology Clinic Follow-up Visit Reason for Visit: Follow-up of recently dx DM type 2 and hypothyroidism HISTORY OF PRESENT ILLNESS: Ms. Jesika Ryan is a 47 y.o. year old lady with history significant for DM type 2, newly diagnosed in December 2017 after being prediabetic for some time (signs of prediabetes seen on mixed meal test in Jun 2017). I started her on metformin 1000mg BID in December 2017. Two visits ago (6 months ago), her A1c had suddenly worsened from 8.4% to 11.2% even despite addition of trulicity 0.75mg once weekly, so I switched her GLP-1 agonist to Victoza. This improved her A1c to 8.8%, so at last visit 3 months ago, we planned the followin. DM type 2 - --make sure to take both doses of metformin (2 tabs in AM and 2 tabs in PM) --continue Victoza at 1.8mg daily. --continue Jardiance 25mg daily --intensify your workouts - walk more and as you get stronger try to add some jogs into your workout. Consider adding in some weight training. --keep up the good work with diet. 2. Misha's thyroiditis - TSH now euthyroid. Straddling ULN. Discussed starting LT4 25 mcg daily, but we will hold off on that for now. Will continue to monitor TFTs every visit. 3. Follow-up - January 08 at 1pm - urgent follow-up. Labs 1 hour prior At last visit, she noted that the Vazquez was too expensive for her, so she got a glucometer. She wasable to ramp up the victoza to full dose 1.8mg daily and she was doing more walking. She reports that she has not had any side effects from the victoza. She has occasional stool urgency soon after taking her metformin dose, but this has not been bothersome. Pre-appt labs today: Component Latest Ref Rng & Units 01/08/2019 U Albumin Conc, Random mg/L 6.9 U Creatinine mg/dL 95 Creatinine 0.70 - 1.20 mg/dL 0.68 (L) eGFR >=60 mL/min/1.73 m?? 105 Hemoglobin A1C 4.3 - 5.6 % 7.5 (H) Est Avg Gluc mg/dL 169 T3, Free 2.0 - 4.4 pg/mL 2.2 Free T4 0.93 - 1.70 ng/dL 0.80 (L) TSH 0.27 - 4.20 mcIU/mL 3.93 Date of Diagnosis: December 2017 Last HgbA1c: 7.5% (01/08/19), 8.8% (September 2018), 11.2% (Jul 2018), 8.4% (04/11/18), 9.2% (December 2017 - with PCP), 5.4% (2016) Current Diabetes Medication regimen: Metformin 1000mg BID victoza 1.8mg Jardiance 25mg daily FSBG regimen: Hypoglycemia: none Diet: cut out pasta, hard [...] ophtho evaluation - sees Dr. Martin at [facility], no DR (August 2018) 4) CV disease - LDL 115 (Jul [...] 2016 ??? Anxiety 2016 ??? Psoriasis 03/12/2011 MEDICATIONS: Medications 01/08/19 1310 Medication Sig Taking? metFORMIN (GLUCOPHAGE) 1,000 mg Tablet Take 1 tablet by mouth 2 times daily (with meals). Yes liraglutide (VICTOZA) 0.6 mg/0.1 mL (18 mg/3 mL) Pen Injector Inject 1.8 mg subcutaneously daily. Yes diclofenac (VOLTAREN) 1 % Gel Apply 2 g topically 4 times daily as needed. Yes guselkumab (TREMFYA) 100 mg/mL Syringe Inject 100 mg subcutaneously Every 8 Weeks. Inject SC one prefilled syringe every eight weeks Yes halobetasol (ULTRAVATE) 0.05 % Cream Apply to psoriasis twice daily Yes empagliflozin 25 mg Tablet Take 25 mg by mouth daily. Yes blood sugar diagnostic strips Strip Check blood sugar prior to each meal and at bedtime - 4 times daily. Yes insulin needles, disposable, 32 gauge x 5/32 Needle 1 each by [facility].(Non-Drug; Combo Route) route daily. Yes norethindrone (AYGESTIN) 5 mg Tablet TAKE ONE TABLET IN THE MORNING AND ONE IN THE EVENING UNTIL THE BLEEDING STOPS. THEN TAKE ONE TABLET DAILY. Yes escitalopram (LEXAPRO) 20 mg Tablet Take 20 mg by mouth daily. Yes ALLERGIES: Allergies Allergen Reactions ??? Stelara [Ustekinumab] Other (See Comments) Iywhkeaat-rrdmsow-xvhhohmav SOCIAL HISTORY: Social History Tobacco Use Smoking Status Former Smoker ??? Types: Cigarettes ??? Last attempt to quit: 03/21/2015 ??? Years since quittin.5 Smokeless Tobacco Never Used FAMILY HISTORY: Family History Relation Problem Age of Onset ??? Maternal Aunt Eczema ??? Maternal Grandfather Eczema REVIEW OF SYSTEMS: All 12 systems reviewed and negative except as noted per HPI. PHYSICAL EXAM: Vitals Office Visit from 01/08/2019 in Endocrinology at [place] Weight 104.8 kg (231 lb) Height 162.6 cm (5' 4) BSA (Calculated - sq m) 2.18 sq meters BMI (Calculated) 39.65 Heart Rate 102 (Abnormal) BP 123/67 Foot exam: no wounds or sores, normal sensation to monofilament bilaterally. 2+ DP. ASSESSMENT: 48 yo F who is type 2 diabetic as of December 2017, A1c is now at goal in the 7% range on her current diabetes regimen of victoza, metformin, and jardiance, with minimal side effects. She is also continuing to intensify her physical activity and optimizing her diet. Her LDL in Jul was only slighly above goal, at 115 (goal is </= 100), and since she has been engaging in these beneficiallifestyle changes, I will plan to monitor her LDL level for now and recheck next visit to assess whether she needs to resume a statin medication. PLAN: --continue current diabetes regimen - victoza 1.8mg daily, metformin 1000mg bid, jardiance 25mg daily --will check LDL level next visit to see if she may need to resume a statin. --follow-up in 6 months with Kyara Youssef APRN and in 1 year with myself. Labs 1 hour prior to each appt. 15 min of this 25 min face to face visit was spent in counseling the patient on DM mgmt. YARELI MORALES MD [employer] Makerophthalmic technologist Section of Endocrinology [facility] documented in this encounter Plan of Treatment Not on file documented as of this encounter Visit Diagnoses Diagnosis Type 2 diabetes mellitus without complication, without long-term current use of insulin Misha's thyroiditis Chronic lymphocytic thyroiditis documented in this encounter Care Teams Marketing Lead Relationship Specialty Start Date End Date Leonor Hendricks MD [address] [place] [address] PCP - General Family Medicine 11/27/16 documented as of this encounter
--- OUTSIDE RECORDS SUMMARY | 2024-02-04 01:25 | XMS_ITS | Encounter Summary ---
[place] [address] Care Team Providers Care Hedge Fund Manager Name Role Phone Leonor Hendricks MD Primary Care Provider [phone] Encounter Details Date Type Department Care Team (Late st Contact Info) Description 07/22/2017 Refill Dermatology at [address] [place] [address] Baylee Mart, ADJUNCT ENGLISH INSTRUCTOR Social History Tobacco Use Types Packs/Day Years [...] on filedocumented in this encounter Care Teams Hedge Fund Manager Relationship Specialty Start Date End Date Leonor Hendricks MD [address] [place] [address] PCP - General Family Medicine 11/27/16 documented as of this encounter
--- OUTSIDE RECORDS SUMMARY | 2024-02-04 01:25 | XMS_ITS | Encounter Summary ---
[place] [address] Care Team Providers Care Bank Worker Name Role Phone Leonor Hendricks MD Primary Care Provider [phone] Encounter Details Date Type Department Care Team (Late st Contact Info) Description 08/08/2018 Refill Dermatology at [address] [place] [phone] Baylee Mart, PROCESSING ANALYST Social History Tobacco Use Types Packs/Day Years [...] on filedocumented in this encounter Care Teams Bank Worker Relationship Specialty Start Date End Date Leonor Hendricks MD [address] [place] [address] PCP - General Family Medicine 11/27/16 documented as of this encounter
--- OUTSIDE RECORDS SUMMARY | 2024-02-04 01:25 | XMS_ITS | Encounter Summary ---
Author Organization [facility] [place] [address] Care Team Providers Care Leasing Coordinator Name Role Phone Leonor Hendricks MD Primary Care Provider [phone] Reason for Visit * Reason Onset Date Comments Medication Refill 07/09/2019 Encounter Details Date Type Department Care Team (Late st Contact Info) Description 07/09/2019 [place] [address] Autumn Kilpatrick MD [facility] [place] [address] Social History Tobacco Use Types Packs/Day Years [...] on filedocumented in this encounter Care Teams Leasing Coordinator Relationship Specialty Start Date End Date Leonor Hendricks MD [address] [place] [address] PCP - General Family Medicine 11/27/16 documented as of this encounter
--- OUTSIDE RECORDS SUMMARY | 2024-02-04 01:25 | XMS_ITS | Encounter Summary ---
Author Organization [facility] [place] [address] Care Team Providers Care Adult Live In Caregiver Name Role Phone Leonor Hendricks MD Primary Care Provider [phone] Encounter Details Date Type Department Care Team (Late st Contact Info) Description 08/01/2017 Telephone Sleep Center at [facility] [address] [place] [address] Darnell Lea MD [facility] [place] [address] Social History Tobacco Use Types Packs/Day Years [...] encounter Miscellaneous Notes * Telephone Encounter - Darnell Lea MD - 08/01/2017 11:05 AM EST Returned her call ([phone]) to discuss the questions she had. Her sleep study was reviewed with her again, as was the concept of using AutoCPAP. She has made an appointment with [facility] and will see them soon. She asked about whether or not improving her weight would have any impact on MAGDALENE and it was noted that safe weight loss over time to a healthier BMI would likely be beneficial toher MAGDALENE; she then noted that she is motivated to make a whole lifestyle change for this, not just a diet and will discuss this further with her PCP. All of her other questions were answered and shehas no other concerns at this time. documented in this encounter Plan of Treatment Not on file documented as of this encounter Visit Diagnoses Not on filedocumented in this encounter Care Teams Adult Live In Caregiver Relationship Specialty Start Date End Date Leonor Hendricks MD [address] [place] [address] PCP - General Family Medicine 11/27/16 documented as of this encounter
--- OUTSIDE RECORDS SUMMARY | 2024-02-04 01:25 | XMS_ITS | Encounter Summary ---
Author Organization [facility] [place] [address] Care Team Providers Care Briquetter Operator Name Role Phone Leonor Hendricks MD Primary Care Provider [phone] Encounter Details Date Type Department Care Team (Late st Contact Info) Description 07/24/2018 1:30 PM EST Office [place] [phone] Yareli Morales MD [facility] [place] [address] Misha's thyroiditis; Type 2 diabetes mellitus with hyperglycemia, without long-term [...] Sign Reading Time Taken Comments Blood Pressure 124/74 07/24/2018 1:42 PM EST Pulse 101 07/24/2018 1:42 PM EST Temperature - - Respiratory Rate - - Oxygen Saturation - - Inhaled Oxygen Concentration - - Weight 108.2 kg (238 lb 9.6 oz) 07/24/2018 1:42 PM EST Height 160 cm (5' 3) 07/24/2018 1:42 PM EST Body Mass Index 42.27 07/24/2018 1:42 PM EST documented in this encounter Patient Instructions * Patient Instructions* Yareli Morales MD - 07/24/2018 1:30 PM EST --stop Trulicity --start Victoza at 1.2mg subcutaneously daily for 1 week. If no nausea, increase to 1.8mg daily thereafter. --get the ieCrowdstyle Vazquez glucometer. If unaffordable, please call the office or send SleepOut message to let Dr. Morales know. In that case I will prescribe a different glucometer that is covered by your insurance. --check blood sugars every morning fasting before breakfast, and 2 hours after a meal later in the day. --next appointment SaturdayAugust 18 at 11am, come an hour before for blood draw. documented in this encounter Progress Notes * Yareli Morales MD - 07/24/2018 1:30 PM EST Images from the original note were not [...] on metformin 1000mg BID in December 2017. At last visit in Apr 2018 (abotu 3 months ago), her A1c had improved from 9.2% to 8.4%, even though she was forgetting the morning metformin dose most days so she was only taking it once a day. I added trulicity 0.75mg once weekly to further optimze her glucose control to try to achieve an A1c in the 7% range. Component Latest Ref Rng & Units 07/24/2018 Hemoglobin A1C 4.3 - 5.6 % 11.2 (H) Est Avg Gluc mg/dL 275 C-Peptide 0.8 - 5.2 ng/mL 5.6 (H) T3, Free 2.0 - 4.4 pg/mL 1.9 (L) LDL Chol Direct mg/dL 115 Free T4 0.93 - 1.70 ng/dL 0.98 TSH 0.27 - 4.20 mlU/ML 4.30 (H) She has only had mild symptoms of indigestion for a day or two after her trulicity dose, no nausea,no diarrhea. Still forgetting morning dose of metformin, but taking it every night. She has noticed herself urinating more, she wondered if it was from the Trulicity, because it seemed to start soon after. Weight has been stable since last visit Date of Diagnosis: December 2017 Last HgbA1c: 8.4% (04/11/18), 9.2% (December 2017 - with PCP), 5.4% (2016) Current Diabetes Medication regimen: Metformin 1000mg BID, but most days she forgets the morning dose. Trulicity 0.75 mg once weekly FSBG regimen: doesn't have a glucometer currently Hypoglycemia: none Diet: B - bhutanese muffin + butter, sometimes PB, banana L - sandwich - tuna or bologna on bread +/- a half of an cucumber D - vegetable + protein - shakenbake chicken, meghan broiled + olive oil Snacks - sugar free jello, sugar free pudding. Physical Activity: Smoking: History of complications 1) Nephropathy - Um:cr , sCr 0.88 GFR 60 (04/11/18) 2) Neuropathy - no n/t. 3) Retinopathy - Last ophtho evaluation - sees Dr. Martin at [facility]. 4) CV disease - LDL PAST MEDICAL HISTORY: Patient Active Problem List Diagnosis Date Noted ??? Misha's thyroiditis 2016 ??? Anxiety 2016 ??? Psoriasis 03/12/2011 MEDICATIONS: Medications 07/24/18 1406 Medication Sig Taking? dulaglutide (TRULICITY) 0.75 mg/0.5 mL Pen Injector Inject 0.75 mg subcutaneously once a week. Yes guselkumab (TREMFYA) 100 mg/mL Syringe Inject 100 mg subcutaneously Every 8 Weeks. Inject SC one prefilled syringe every eight weeks Yes metFORMIN (GLUCOPHAGE) 500 mg Tablet Take 2 tablets by mouth 2 times daily (with meals). 1 tab in AM x 1wk, then 1 tab 2x/day x 1wk, then 2tab AM + 1tab PM x 1wk, then full dose Patient taking differently: Take 1,000 mg by mouth 2 times daily (with meals). Yes norethindrone (AYGESTIN) 5 mg Tablet TAKE ONE TABLET IN THE MORNING AND ONE IN THE EVENING UNTIL THE BLEEDING STOPS. THEN TAKE ONE TABLET DAILY. Yes clobetasol-emollient (TEMOVATE E) 0.05 % Cream Apply twice daily to psoriasis on hands Yes escitalopram (LEXAPRO) 20 mg Tablet Take 20 mg by mouth daily. Yes ALLERGIES: Allergies Allergen Reactions ??? Stelara [Ustekinumab] Other (See Comments) Kmrjazyxn-tahrtwh-wuhrqcckz SOCIAL HISTORY: Social History Tobacco Use Smoking Status Former Smoker ??? Types: Cigarettes ??? Last attempt to quit: 03/21/2015 ??? Years since quittin.3 Smokeless Tobacco Never Used FAMILY HISTORY: Family History Relation Problem Age of Onset ??? Maternal Aunt Eczema ??? Maternal Grandfather Eczema REVIEW OF SYSTEMS: All 12 systems reviewed and negative except as noted per HPI. PHYSICAL EXAM: Vitals Office Visit from 07/24/2018 in Endocrinology at [place] Weight 108.2 kg (238 lb 9.6 oz) Height 160 cm (5' 3) BSA (Calculated - sq m) 2.19 sq meters BMI (Calculated) 42.26 Heart Rate 101 (Abnormal) BP 124/74 Foot exam: no wounds or sores, normal sensation to monofilament bilaterally. 2+ DP. ASSESSMENT: 47 yo F who is type 2 diabetic as of December 2017, A1c had improved as of last visit, but now has worsened significantly despite addition of Trulicity 0.75mg once weekly and dietary optimization, working with robot operator. She has not had a way to check her FSBG at home, but has been experiencing polyuria, which is most likely related to her hyperglycemia. TSH mildly elevated. Had a bad cold about a month ago, will recheck TFTs in 1 month to see if she may currently be in the recovery phase of a temporary bout of silent thyroiditis. Her preference is to not start thyroid hormone supplementation just yet as well. PLAN: 1. DM type 2 - --stop Trulicity --start Victoza at 1.2mg subcutaneously daily for 1 week. If no nausea, increase to 1.8mg daily thereafter. --get the Freestyle Vazquez glucometer. If unaffordable, please call the office or send SleepOut message to let me know. In that case I will prescribe a different glucometer that is covered by your insurance. --check blood sugars every morning fasting before breakfast, and 2 hours after a meal later in the day. --next appointment SaturdayAugust 18 at 11am, come an hour before for blood draw. 2. Misha's thyroiditis, possible bout of silent thyroiditis currently - Will recheck TFTs next visit in 1 month. 4. Follow-up - 1 month, labs 1 hour prior. 25 min of this 40 min face to face visit was spent in counseling the patient on DM mgmt. YARELI MORALES MD Heel Seat Lasterclient resolution specialist Section of Endocrinology [facility] documented in this encounter Plan of Treatment Not on file documented as of this encounter Results * (ABNORMAL) Hepatic Function Panel (10/09/2018 10:56 AM EDT) Protein, Total 8.3(H) 6.1 - 8.0 gm/dL [facility] Albumin 4.5 3.2 - 5.2 gm/dL [facility] Aspartate Aminotransferase 24 0 - 30 unit/L [facility] Alanine Aminotransferase 41(H) 0 - 30 unit/L [facility] Alkaline Phosphatase 102 40 - 104 unit/L [facility] Bilirubin, Total 0.2 0.2 - 1.3 mg/dL [facility] Bilirubin, Direct 0.1 0.0 - 0.3 mg/dL [facility] Blood specimen (specimen) 10/09/2018 10:56 AM EDT 10/09/2018 10:59 AM EDT Narrative Resulting Agency Comment Spec In Lab Yareli Morales MD CHEMISTRY ORDERABLES [facility] [place] [address] * Glucose, random (10/09/2018 10:56 AM EDT) Glucose 116 65 - 199 mg/dL [facility] Comment:Diabetes: >=200 mg/d L plus symptoms Blood specimen (specimen) 10/09/2018 10:56 AM EDT 10/09/2018 10:59 AM EDT Narrative Resulting Agency Comment Spec In Lab Yareli Morales MD CHEMISTRY ORDERABLES [facility] [place] [address] * T3, free (10/09/2018 10:56 AM EDT) Free T3 2.1 2.0 - 4.4 pg/mL [facility] Blood specimen (specimen) 10/09/2018 10:56 AM EDT 10/09/2018 10:59 AM EDT Narrative Resulting Agency Comment Spec In Lab Yareli Morales MD CHEMISTRY ORDERABLES Performing Organization Address City/[facility]/ZIP Co de Phone Number [facility] [place] [address] * (ABNORMAL) T4, free (10/09/2018 10:56 AM EDT) Free T4 0.90(L) 0.93 - 1.70 ng/dL [facility] Blood specimen (specimen) 10/09/2018 10:56 AM EDT 10/09/2018 10:59 AM EDT Narrative Resulting Agency Comment Spec In Lab Yareli Morales MD CHEMISTRY ORDERABLES Performing Organization Address City/[facility]/ZIP Co de Phone Number [facility] [place] [address] * TSH (10/09/2018 10:56 AM EDT) Thyroid Stimulating Hormone 3.87 0.27 - 4.20 mcIU/mL [facility] Blood specimen (specimen) 10/09/2018 10:56 AM EDT 10/09/2018 10:59 AM EDT Narrative Resulting Agency Comment Spec In Lab Yareli Morales MD CHEMISTRY ORDERABLES [facility] [place] [address] documented in this encounter Visit Diagnoses Diagnosis Misha's thyroiditis Chronic lymphocytic thyroiditis Type 2 diabetes mellitus with hyperglycemia, without long-term current use of insulin documented in this encounter Care Teams Briquetter Operator Relationship Specialty Start Date End Date Leonor Hendricks MD [address] [place] [id number] PCP - General Family Medicine 11/27/16 documented as of this encounter
--- OUTSIDE RECORDS SUMMARY | 2024-02-04 01:25 | XMS_ITS | Encounter Summary ---
Author Organization [facility] [place] [address] Care Team Providers Care Java Architect Name Role Phone Leonor Hendricks MD Primary Care Provider [phone] Reason for Visit * Reason Comments Hypoglycemia * Consultation (Routine) - Closed Specialty Diagnoses / Procedures Referred By Contac t Referred To Contact Endocrinology Diagnoses Hypoglycemia HYPOGLYCEMIA new dx of elevated WBC Procedures CONSULT AND TREAT Leonor Hendricks MD [address] [place] [address] [facility] Endocrinology [address] [place] [address] Referral ID Status Reason Start Date Expiration Date Visits Re quested Visits Authorized [id number] Closed 02/01/2017 02/01/2018 1 1 Encounter Details Date Type Department Care Team (Late st Contact Info) Description 03/25/2017 2:00 PM EDT Office [place] [phone] Yareli Morales MD [facility] [place] [address] Hypoglycemia Social History Tobacco Use Types Packs/Day Years [...] Sign Reading Time Taken Comments Blood Pressure 147/96 03/25/2017 1:51 PM EDT Pulse 91 03/25/2017 1:51 PM EDT Temperature - - Respiratory Rate - - Oxygen Saturation - - Inhaled Oxygen Concentration - - Weight 99.3 kg (219 lb) 03/25/2017 1:51 PM EDT Height 160 cm (5' 2.99) 03/25/2017 1:51 PM EDT Body Mass Index 38.8 03/25/2017 1:51 PM EDT documented in this encounter Patient Instructions * Patient Instructions* Yareli Morales MD - 03/25/2017 2:00 PM EDT Schedule yourself for a prolonged fast test. Prior to the test, do not eat or drink anything but plain water starting after dinner the night before. Come to the 5C clinic - the test will occur in the procedure room in the Endocrinology Clinic. Dr. Buckner supervises the procedure room tests. documented in this encounter Progress Notes * Yareli Morales MD - 03/25/2017 2:00 PM EDT Endocrinology New Patient Consultation RFC: Referred to Endocrinology by Leonor Hendricks for further evaluation of hypoglycemia. HISTORY OF PRESENT ILLNESS: Ms. Jesika Sprague is a 46 y.o. year old lady with history significant for autoimmunity (Misha's thyroiditis on low dose LT4, psoriasis), whom I have previously evaluated for fatigue and eventuallystarted low dose LT4 at the patient's insistence to see if her symptoms improve, who presents todayfor evaluation of a new endocrine issue - hypoglycemia. She stopped the LT4 after 1 week because she was being started on Lexapro and OCPs, has felt betteron these meds, but still not 100%. I'm not bawling my eyes out anymore sleeping is better. is a type 2 diabetic - has been having episodes usually at work, feeling completely fine, then suddenly feels shaky and legs feel rubbery. Used 's glucometer to check BG in those situations - BG was in the 60s-70s. Eating something, resolves the symptoms. Usually happens about 4 hours after eating a high carb meal or snack, but has happened when she skipped breakfast too. PAST MEDICAL HISTORY: Patient Active Problem List Diagnosis Date Noted ??? Misha's thyroiditis 2016 ??? Anxiety 2016 ??? Psoriasis 03/12/2011 MEDICATIONS: Medications 03/25/17 1423 Medication Sig Taking? escitalopram (LEXAPRO) 20 mg Tablet Take 20 mg by mouth daily. Yes traZODone (DESYREL) 50 mg Tablet Take 25 mg by mouth nightly. Yes SECUKINUMAB (COSENTYX, 2 SYRINGES, SUBQ) Inject subcutaneously every 30 days. Yes cholecalciferol, Vitamin D3, (VITAMIN D-3) 2,000 unit Tablet Take by mouth daily. Yes clobetasol (TEMOVATE) 0.05 % Cream Apply topically 2 times daily. Patient not taking: Reported on 03/25/2017 LORazepam (ATIVAN) 0.5 mg Tablet TAKE ONE TABLET BY MOUTH TWICE A DAY NEEDED levothyroxine (SYNTHROID) 25 mcg Tablet Take 1 tablet by mouth daily. Patient not taking: Reported on 03/25/2017 levonorgestrel-ethinyl estradiol (AVIANE;ALESSE;LESSINA) 0.1-20 mg-mcg Tablet Take 1 tablet by mouth daily. Reported on 2016 ALLERGIES: Allergies Allergen Reactions ??? Stelara [Ustekinumab] Other (See Comments) Fdeckkaux-oxeqwmm-rqqifrdwr SOCIAL HISTORY: History Smoking Status ??? Former Smoker ??? Types: Cigarettes ??? Quit date: 03/21/2015 Smokeless Tobacco ??? Never Used FAMILY HISTORY: Family History Relation Problem Age of Onset ??? Maternal Grandfather Eczema ??? Maternal Aunt Eczema REVIEW OF SYSTEMS: All 12 systems reviewed and negative except as noted per HPI. PHYSICAL EXAM: Vitals Office Visit from 03/25/2017 in Endocrinology at [place] Weight - Scale 99.3 kg (219 lb) Height 160 cm (5' 2.99) BSA (Calculated - sq m) 2.1 sq meters BMI (Calculated) 38.8 Heart Rate 91 BP (!) 147/96 Gen: NAD, AAOx3, speaking full sentences, calm very pleasant demeanor, truncal adiposity. ASSESSMENT: I suspect most likely she is having reactive hypoglycemia, but she did experience hypoglycemia whenshe was fasting so I would like to rule out insulinoma. Weight gain may be related to initiation of Lexapro, which is notorious for causing weight gain, but insulinomas can also lead to weight gain. Reactive hypoglycemia can be an early sign of prediabetes. 75g OGTT showed normal glucose toleranceat 2hours (plasma glucose 122) but an impaired fasting glucose of 106. PLAN: --to return on a Saturday morning for a prolonged fast test sometime in the near future to excludethe possibility of insulinoma. --printed guide to reactive hypoglycemia management given to the patient, also discussed using glycemic index to help guide meal and snack choices. --for her Misha's thyroiditis, I recommended having her PCP follow annual TFTs, since she is currently euthyroid. 35 min of this 60 min face to face visit was spent in counseling the patient on reactive hypoglycemia diet, and also on insulinoma and testing for it. YARELI MORALES MD Crossword Puzzle Makerinfantry operations specialist Section of Endocrinology [facility] documented in this encounter Plan of Treatment Not on file documented as of this encounter Visit Diagnoses Diagnosis Hypoglycemia Hypoglycemia, unspecified documented in this encounter Care Teams Java Architect Relationship Specialty Start Date End Date Leonor Hendricks MD [address] [place] [address] PCP - General Family Medicine 11/27/16 documented as of this encounter
--- OUTSIDE RECORDS SUMMARY | 2024-02-04 01:25 | XMS_ITS | Encounter Summary ---
Author Organization [facility] Malia espinoza [place] [id number] Care Team Providers Care Whirley Operator Name Role Phone Leonor Hendricks MD Primary Care Provider [phone] Encounter Details Date Type Department Care Team (Late st Contact Info) Description 04/17/2018 2:00 PM EDT Office Visit Endocrinology at [facility] [place] [phone] Kinsey Marina LD [facility] [address] Type 2 diabetes mellitus with hyperglycemia, without long-term current use of insulin; Obesity, unspecified classification, unspecified obesity type, unspecified whether serious comorbidity present Social History Tobacco Use Types Packs/Day Years [...] this encounter Patient Instructions * Patient Instructions* Kinsey Marina LD - 04/17/2018 2:00 PM EDT Be mindful of portion sizes and how much I cook, how much is on the plate, and slowly put smaller amounts on the plate or eat smaller portions over time to get to the recommended serving size on the package or on the hand out. Be mindful of when I eat. Focus on timing of eating I'd like to drink more water. My goal is eliminate 1 tea. Try new sparkling sanchez or seltzer sanchez. Read ingredients Or try water with a squeeze of citrus. documented in this encounter Progress Notes * Kinsey Marina LD - 04/17/2018 2:00 PM EDT Diabetes and Nutrition Note Goals Be mindful of portion sizes and how much I cook, how much is on the plate, and slowly put smaller amounts on the plate or eat smaller portions over time to get to the recommended serving size on the package or on the hand out. Be mindful of when I eat. Focus on timing of eating I'd like to drink more water. My goal is eliminate 1 tea. Try new sparkling sanchez or seltzer sanchez. Read ingredients Or try water with a squeeze of citrus. Assessment Jesika Ryan is a 47 y.o. female with Type 2 diabetes, obesity (BMI 41.81). Pt is here today to discuss diet. Pt was given carb counting hand out. Diagnosed with T2DM 2.5 months ago. Discussed how to manage diabetes, discussed lab results for lipids. Pt was given hand out on improving lipid profile and how to count carbs. Pt is willing to make changes. 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 Discussed how to have a balanced meal and heart smart meals. Breakfast: Lunch: Dinner: rice, corn, chicken, shake and bake. Pasta, garlic bread, meat. Snack: Exercise: pt considering joining friend at the gym 1 hour spent on MNT documented in this encounter Plan of Treatment Not on file documented as of this encounter Visit Diagnoses Diagnosis Type 2 diabetes mellitus with hyperglycemia, without long-term current use of insulin Obesity, unspecified classification, unspecified obesity type, unspecified whether serious comorbidity present documented in this encounter Care Teams Whirley Operator Relationship Specialty Start Date End Date Leonor Hendricks MD [address] [place] [address] PCP - General Family Medicine 11/27/16 documented as of this encounter
--- OUTSIDE RECORDS SUMMARY | 2024-02-04 01:25 | XMS_ITS | Encounter Summary ---
Author Organization [facility] [place] [address] Care Team Providers Care Audio Visual Manager Name Role Phone Leonor Hendricks MD Primary Care Provider [phone] Reason for Visit * Reason Comments Hypoglycemia Prolonged Fast - End o Test Encounter Details Date Type Department Care Team (Latest Contact Info) Description 07/10/2017 7:55 AM EST Procedure visit [place] [address] Roberto Buckner MD [facility] [address] Misha's thyroiditis; Generalized weakness Social History Tobacco Use Types Packs/Day Years [...] Sign Reading Time Taken Comments Blood Pressure 127/83 07/10/2017 7:48 AM EST Pulse 90 07/10/2017 7:48 AM EST Temperature - - Respiratory Rate - - Oxygen Saturation - - Inhaled Oxygen Concentration - - Weight 106.2 kg (234 lb 3.2 oz) 07/10/2017 7:48 AM EST Height 160 cm (5' 3) 07/10/2017 7:48 AM EST Body Mass Index 41.49 07/10/2017 7:48 AM EST documented in this encounter Progress Notes * Bella Price RN - 07/10/2017 7:55 AM EST ENDOCRINOLOGY TESTING PROLONGED OBSERVED FAST with Observed Mixed Meal Test. Requested by Dr Morales DIAGNOSIS: Generalized Weakness - ICD-10: R53.1 Hypoglycemia - ICD-10: E16.2 8:00 AM Pt arrived for testing with an observed fast. Pt fasting since 6:[address] Buckner in to see patient. Testing discussed. BP 127/83, Pulse 90. Typical symptoms during episodes: She feels lightheaded and jittery. She becomes very shaky & her legs feel rubbery . Fatigue is always a main symptom, & usually she feels as if her heart is racing. Headache usually occurs AFTER her episode. 8:30 AM Baseline fasting blood glucose level obtained via glucometer. FBS 107. Patient stated that she has had nothing to eat or drink since 6:30 PM yesterday evening. 8:45 AM Saline lock inserted into Right hand by Bella Price RN, using a #22 gauge InSyte catheter. 9:00 AM (0 minutes - Baseline) Saline lock flushed with normal saline. One (5 cc) syringe filled with 2-3 cc of blood discarded. Using a Vacutainer, blood obtained from saline lock for Glucose (mint green top 4 ml tube), Total Insulin (gold SST top 5 ml tube, for each). Also, a Pro Insulin (chilledlavender top 4 ml tube on ice) and Beta Hydroxybutyrate (mint green top 4 ml tube). TSH, T4 & T 3 also obtained (mint green top 4 ml tube). Saline lock was flushed with normal saline. Tubes were labeled 0 minutes, and were sent to the lab for testing. Lab Results: Fasting Glucose 106, Total Insulin Level 41.6, Beta Hydroxybutyrate 0.41 Pro Insulin Pending (Mail Out) 9:30 AM Fasting Blood Glucose level tested via glucometer BS 99 No complaints at this time. Patientsitting in recliner using her Smart phone. 10:30 AM Fasting Blood glucose level tested by clinic glucometer. BS 95. Ambulated to the bathroom.Resting in recliner with no complaints. 11:30 AM Fasting Blood glucose level tested by clinic glucometer. BS 88. Offered no symptoms & no complaints. Dr Buckner in to see patient. Order given for a Mixed Meal Endocrine Test to start at 12:00 PM. Lab draw prior to start of Mixed Meal Test. 12:00 PM Saline lock flushed with normal saline. One (5 cc) syringe filled with 2-3 cc of blood discarded. Using a Vacutainer, blood obtained from saline lock for Glucose (mint green top 4 ml tube), Total Insulin (gold SST top 5 ml tube, for each) and Beta Hydroxybutyrate (mint green top 4 ml tube). Saline lock was flushed with normal saline. Tubes were labeled 180 minutes, and were sent to the lab for testing. Lab Results: Fasting Glucose 88, Total Insulin Level - 23.6, Beta Hydroxybutyrate 0.51 Start of Mixed Meal Endocrine Test - (720 dilip Total) 12:05 PM - Patient drank 16 oz of Boost Plus (2 packs - 8 oz each) Creamy Garfield Flavor. (Each 8 oz contains 360 dilip - 15 % from Protein. 45 grams Carbs, 14 grams Protein) 12:30 PM - Resting in recliner. Reading on Smart Phone 1:00 PM BS 187 via clinic glucometer - 60 minutes after meal. No symptoms of hypoglycemia noted. 1:15 PM - Ambulated to the bathroom. No complaints. No symptoms noted. 2:00 PM Blood glucose level obtained via glucometer. BS 181. 2:15 PM Saline lock discontinued and a dry dressing was placed over the insertion site. No redness,bruising or other problem noted at IV access site. Pt will be contacted by Dr Morales after all of the lab results are available and have been reviewed. Patient is aware of and agrees with the plan of care. She left the clinic alert and oriented with no signs or symptoms of hypoglycemia. Observed Prolonged Fast / Meal Challenge with blood glucose testing completed by Bella Price RN * Roberto Buckner MD - 07/10/2017 7:55 AM EST Ms Sprague presented for an observed fast and testing for postprandial hypoglycemia Upon arrival she had fasted for 13 hours. The fast was continued till 12 N for a total of 17 h Results for RUSLAN SPRAGUE ( ) as of 07/11/2017 08:02 Ref. Range 07/10/2017 09:15 07/10/2017 09:30 07/10/2017 10:30 07/10/2017 11:30 07/10/2017 12:00 Glucose Lvl Latest Ref Range: 65 - 199 mg/dL 106 88 POC Glucose Latest Ref Range: 60 - 199 mg/dl 99 95 88 BOHB Latest Ref Range: 0.00 - 0.30 mmol/L 0.41 (H) 0.51 (H) Free T4 Latest Ref Range: 0.93 - 1.70 ng/dL 0.83 (L) TSH Latest Ref Range: 0.27 - 4.20 mlU/ML 3.80 T3, Free Latest Ref Range: 2.0 - 4.4 pg/mL 2.7 Insulin Lvl Latest Ref Range: 2.6 - 24.9 mcunit/mL 41.6 (H) 23.6 These results show normal results of fasting (low BOHB and decreasing insulin with stable glucose) although thye are consistent with insulin resistance (elevated fasting insulin and failure to fully suppress BOHB). She then consumed 2 cans of boost + as a mixed meal test. Her glucose became elevated in the ensuring two hours but did not fall below normal nor were there symptoms: Ref. Range 07/10/2017 12:00 07/10/2017 13:00 07/10/2017 14:00 Glucose Lvl Latest Ref Range: 65 - 199 mg/dL 88 POC Glucose Latest Ref Range: 60 - 199 mg/dl 187 181 These tests are negative for hypoglycemia. I was present for the entire test period. documented in this encounter Plan of Treatment Not on file documented as of this encounter Procedures Procedure Name Priority Date/Time Associated Diagnosis Comments POCT FINGERSTICK GLUCOSE Routine 07/10/2017 2:00 PM EST Generalized weakness POCT FINGERSTICK GLUCOSE Routine 07/10/2017 1:00 PM EST Generalized weakness BETA HYDROXYBUTYRATE Routine 07/10/2017 12:00 PM EST Generalized weakness INSULIN, TOTAL Routine 07/10/2017 12:00 PM EST Generalized weakness GLUCOSE Routine 07/10/2017 12:00 PM EST Generalized weakness POCT FINGERSTICK GLUCOSE Routine 07/10/2017 11:30 AM EST Generalized weakness POCT FINGERSTICK GLUCOSE Routine 07/10/2017 10:30 AM EST Generalized weakness POCT FINGERSTICK GLUCOSE Routine 07/10/2017 9:30 AM EST Generalized weakness GREEN TUBE HOLD Routine 07/10/2017 9:15 AM EST GREEN TUBE HOLD Routine 07/10/2017 9:15 AM EST BETA HYDROXYBUTYRATE Routine 07/10/2017 9:15 AM EST Generalized weakness PROINSULIN Routine 07/10/2017 9:15 AM EST Generalized weakness INSULIN, TOTAL Routine 07/10/2017 9:15 AM EST Generalized weakness T3, FREE Routine 07/10/2017 9:15 AM EST TSH Routine 07/10/2017 9:15 AM EST T4, FREE Routine 07/10/2017 9:15 AM EST GLUCOSE Routine 07/10/2017 9:15 AM EST Generalized weakness POCT FINGERSTICK GLUCOSE Routine 07/10/2017 8:30 AM EST Generalized weakness documented in this encounter Results * POCT Fingerstick Glucose (07/10/2017 2:00 PM EST) Glucose, POC 181 60 - 199 mg/dl Comment:2 hours after meal Blood specimen (specimen) 07/10/2017 2:00 PM EST Roberto Buckner MD POINT OF CARE TEST O RDERABLES * POCT Fingerstick Glucose (07/10/2017 1:00 PM EST) Glucose, POC 187 60 - 199 mg/dl Comment:1 hour after mixed m eal - Endo Test Blood specimen (specimen) 07/10/2017 1:00 PM EST Roberto Buckner MD POINT OF CARE TEST O RDERABLES * (ABNORMAL) Beta Hydroxybutyrate (07/10/2017 12:00 PM EST) Beta-hydroxybu turate 0.51(H) 0.00 - 0.30 mmol/L [facility] Comment: Reference range: ??0.00-0.30 mmo1/L, based on an overnight fast. ??Children may be higher. Blood specimen (specimen) 07/10/2017 12:00 PM EST 07/10/2017 12:18 PM EST Narrative Resulting Agency Comment Spec In Lab Roberto Buckner MD CHEMISTRY ORDERABLES [facility] [place] [address] * Insulin, total (07/10/2017 12:00 PM EST) Insulin 23.6 2.6 - 24.9 mcunit/mL [facility] Blood specimen (specimen) 07/10/2017 12:00 PM EST 07/10/2017 12:18 PM EST Narrative Resulting Agency Comment Spec In Lab Roberto Buckner MD CHEMISTRY ORDERABLES [facility] [place] [address] * Glucose, random (07/10/2017 12:00 PM EST) Glucose 88 65 - 199 mg/dL [facility] Comment:Diabetes: >=200 mg/d L plus symptoms Blood specimen (specimen) 07/10/2017 12:00 PM EST 07/10/2017 12:18 PM EST Narrative Resulting Agency Comment Spec In Lab Roberto Buckner MD CHEMISTRY ORDERABLES [facility] [place] [address] * POCT Fingerstick Glucose (07/10/2017 11:30 AM EST) Glucose, POC 88 60 - 199 mg/dl Comment:Prolonged Fast Endo Test Blood specimen (specimen) 07/10/2017 11:30 AM EST Roberto Buckner MD POINT OF CARE TEST O RDERABLES * POCT Fingerstick Glucose (07/10/2017 10:30 AM EST) Glucose, POC 95 60 - 199 mg/dl Comment:Prolonged Fast Endo Test Blood specimen (specimen) 07/10/2017 10:30 AM EST Roberto Buckner MD POINT OF CARE TEST O RDERABLES * POCT Fingerstick Glucose (07/10/2017 9:30 AM EST) Glucose, POC 99 60 - 199 mg/dl Comment:Prolonged Fast Endo Test Blood specimen (specimen) 07/10/2017 9:30 AM EST Roberto Buckner MD POINT OF CARE TEST O RDERABLES * Green Tube HOLD (07/10/2017 9:15 AM EST) Green Hold Sample in lab. [facility] Blood specimen (specimen) Venous Draw / Unknown 07/10/2017 9:15 AM EST 07/10/2017 9:55 AM EST Roberto Buckner MD CHEMISTRY ORDERABLES Performing Organization Address [facility] Co de Phone Number [facility] [place] [address] * Green Tube HOLD (07/10/2017 9:15 AM EST) Green Hold Sample in lab. [facility] Blood specimen (specimen) Venous Draw / Unknown 07/10/2017 9:15 AM EST 07/10/2017 9:55 AM EST Roberto Buckner MD CHEMISTRY ORDERABLES Performing Organization Address [facility] Phone Number [facility] [place] [address] * T3, free (07/10/2017 9:15 AM EST) Free T3 2.7 2.0 - 4.4 pg/mL [facility] Blood specimen (specimen) Venous Draw / Unknown 07/10/2017 9:15 AM EST 07/10/2017 9:53 AM EST Narrative Resulting Agency Comment Spec In Lab Roberto Buckner MD CHEMISTRY ORDERABLES Performing Organization Address [facility] Co de Phone Number [facility] [place] [address] * (ABNORMAL) T4, free (07/10/2017 9:15 AM EST) Free T4 0.83(L) 0.93 - 1.70 ng/dL [facility] Blood specimen (specimen) Venous Draw / Unknown 07/10/2017 9:15 AM EST 07/10/2017 9:53 AM EST Narrative Resulting Agency Comment Spec In Lab Roberto Buckner MD CHEMISTRY ORDERABLES Performing Organization Address City/[facility] Co de Phone Number [facility] [place] [address] * TSH (07/10/2017 9:15 AM EST) Thyroid Stimulating Hormone 3.80 0.27 - 4.20 mlU/ML [facility] Blood specimen (specimen) Venous Draw / Unknown 07/10/2017 9:15 AM EST 07/10/2017 9:53 AM EST Narrative Resulting Agency Comment Spec In Lab Roberto Buckner MD CHEMISTRY ORDERABLES Performing Organization Address [facility] Co de Phone Number [facility] [place] [address] * (ABNORMAL) Beta Hydroxybutyrate (07/10/2017 9:15 AM EST) Pathologist [facility] Beta-hydroxybu turate 0.41(H) 0.00 - 0.30 mmol/L [facility] Comment: Reference range: ??0.00-0.30 mmo1/L, based on an overnight fast. ??Children may be higher. Blood specimen (specimen) 07/10/2017 9:15 AM EST 07/10/2017 9:53 AM EST Narrative Resulting Agency Comment Spec In Lab Roberto Buckner MD CHEMISTRY ORDERABLES Performing Organization Address [facility] Co de Phone Number [facility] [place] [address] * (ABNORMAL) Proinsulin (07/10/2017 9:15 AM EST) Proinsulin (OCTOBER) 171(H) 3.6 - 22 pmol/L [facility] Comment: ADDITIONAL INFORMATION This test was developed and its performance characteristics determined by [facility] in a manner consistent with CLIA requirements. This test has not been cleared or approved by the U.S. Food and Drug Administration. Test Performed by: [facility] [address] [place] [address] Blood specimen (specimen) 07/10/2017 9:15 AM EST 07/10/2017 1:33 PM EST Narrative Resulting Agency Comment Spec In Lab Roberto Buckner MD LAB SEND OUT ORDERAB LES Performing Organization Address [facility]/ZIP Co de Phone Number [facility] [place] [address] * Glucose, random (07/10/2017 9:15 AM EST) Glucose 106 65 - 199 mg/dL [facility] Comment:Diabetes: >=200 mg/d L plus symptoms Blood specimen (specimen) 07/10/2017 9:15 AM EST 07/10/2017 9:53 AM EST Narrative Resulting Agency Comment Spec In Lab Roberto Bukcner MD CHEMISTRY ORDERABLES Performing Organization Address [facility] Co de Phone Number [facility] [place] [address] * (ABNORMAL) Insulin, total (07/10/2017 9:15 AM EST) Insulin 41.6(H) 2.6 - 24.9 mcunit/mL [facility] Blood specimen (specimen) 07/10/2017 9:15 AM EST 07/10/2017 9:53 AM EST Narrative Resulting Agency Comment Spec In Lab Roberto Buckner MD CHEMISTRY ORDERABLES Performing Organization Address [facility] Co de Phone Number [facility] [place] [address] * POCT Fingerstick Glucose (07/10/2017 8:30 AM EST) Glucose, POC 107 60 - 199 mg/dl Comment:Prolonged Fast Endo Test Blood specimen (specimen) 07/10/2017 8:30 AM EST Roberto Buckner MD POINT OF CARE TEST O RDERABLES documented in this encounter Visit Diagnoses Diagnosis Misha's thyroiditis Chronic lymphocytic thyroiditis Generalized weakness Other malaise and fatigue documented in this encounter Care Teams Audio Visual Manager Relationship Specialty Start Date End Date Leonor Hendricks MD [address] [place] [address] PCP - General Family Medicine 11/27/16 documented as of this encounter
--- OUTSIDE RECORDS SUMMARY | 2024-02-04 01:25 | XMS_ITS | Encounter Summary ---
Author Organization [place] [address] Care Team Providers Care Information Consultant Name Role Phone Leonor Hendricks MD Primary Care Provider [phone] Reason for Visit * Reason Comments Medication Refill Encounter Details Date Type Department Care Team (Late st Contact Info) Description 07/09/2019 Refill [place] [address] Yareli Morales MD [facility] [place] [address] Social History Tobacco Use Types Packs/Day Years [...] on filedocumented in this encounter Care Teams Information Consultant Relationship Specialty Start Date End Date Leonor Hendricks MD [address] [place], [place] [id number] PCP - General Family Medicine 11/27/16 documented as of this encounter
--- OUTSIDE RECORDS SUMMARY | 2024-02-04 01:25 | XMS_ITS | Encounter Summary ---
[place] [address] Care Team Providers Care Industrial Design Engineer Name Role Phone Leonor Hendricks MD Primary Care Provider [phone] Encounter Details Date Type Department Care Team (Late st Contact Info) Description 07/22/2018 Telephone [place] [id number] Elba Emery Social History Tobacco Use Types Packs/Day Years [...] on filedocumented in this encounter Care Teams Industrial Design Engineer Relationship Specialty Start Date End Date Leonor Hendricks MD [address] [place] [address] PCP - General Family Medicine 11/27/16 documented as of this encounter
--- OUTSIDE RECORDS SUMMARY | 2024-02-04 01:25 | XMS_ITS | Encounter Summary ---
[facility] [place] [address] Care Team Providers Care Wine Steward Name Role Phone Leonor Hendricks MD Primary Care Provider Reason for Visit * Reason Comments Follow-up Skin Check Encounter Details Date Type Department Care Team (Late st Contact Info) Description 11/15/2017 10:45 AM EDT Office Visit Dermatology at [address] [place] [address] Andreas Richardson MD [address] [facility] [place] [address] Psoriasis Social History Tobacco Use Types Packs/Day [...] Progress Notes * Andreas Richardson MD - 11/15/2017 10:45 AM EDT Problem: 1. Follow-up psoriasis on TALTZ ??3 injections, with apparent allergic reaction 2. On Cosentyx 10/04/2016 to 10/04/2017 with initial improvement and lack of response 3. Previously on Stelara, Humira, Enbrel, cyclosporine, methotrexate, hydroxyurea, sulfasalazine, and Otesla. 4. Psoriasis usually worse for this patient in the summer months, then in the winter months Jesika follows up and unfortunately she is having allergic reaction to the TALTZ injections. Physical examination reveals a warm 10 x 13 cm plaque on her left abdomen which she most recently gave herself an injection. The 2 prior sites she has smaller tennis ball sized erythematous patches that remain. She is otherwise well. She is not having any fevers chills. Assessment and plan: Apparent allergic reaction to TALTZ 1. Discontinue medication 2. We will look into prior authorization of Fortino. Dosing will be 100 mg prefilled syringe subcu nasally and week 1, symptoms 1 week 4, and then every 8 weeks thereafter. Return to clinic in 3 months after starting new medication Cc: Leonor Hendricks MD documented in this encounter Plan of Treatment Not on file documented as of this encounter Visit Diagnoses Diagnosis Psoriasis Other psoriasis documented in this encounter Care Teams Wine Steward Relationship Specialty Start Date End Date Leonor Hendricks MD [address] [place] [address] PCP - General Family Medicine 11/27/16 documented as of this encounter
--- OUTSIDE RECORDS SUMMARY | 2024-02-04 01:25 | XMS_ITS | Encounter Summary ---
Author Organization [facility] [place] [address] Care Team Providers Care Inter Com Installer Name Role Phone Leonor Hendricks MD Primary Care Provider [phone] Encounter Details Date Type Department Care Team (Late st Contact Info) Description 08/26/2018 3:00 PM EDT Office Visit [place] [id number] [facility] [place] [address] Psoriasis; Psoriatic arthritis; High risk medication use; Osteoarthritis, unspecified osteoarthritis type, unspecified site Social History Tobacco Use Types Packs/Day Years [...] Sign Reading Time Taken Comments Blood Pressure 141/76 08/26/2018 2:44 PM EDT Pulse 101 08/26/2018 2:44 PM EDT Temperature 37.1 ??C (98.7 ??F) 08/26/2018 2:44 PM ED T Respiratory Rate - - Oxygen Saturation 99% 08/26/2018 2:44 PM EDT Inhaled Oxygen Concentration - - Weight 105.7 kg (233 lb) 08/26/2018 2:44 PM EDT Height 160 cm (5' 3) 08/26/2018 2:44 PM EDT Body Mass Index 41.27 08/26/2018 2:44 PM EDT documented in this encounter Progress Notes * Jacinta Browne Malia, - 08/26/2018 3:00 PM EDT PSA and psoriasis Previously on Stelara, Humira, Enbrel, cyclosporine, methotrexate, hydroxyurea, sulfasalazine, and Otezla, Cosentyx-stopped working taltz- 2 injections -allergic reaction, History of Present Illness: Jesika Ryan is a 47 y.o. presents for follow op of psa. She was last seen in February 2018 on guselkinumab/trefyma. She was kirk hillman by derm and have her clobetasol topical which she just started. Notes her right 2nd finger pip is sore and worse in the am, and stiff. No pain with touching it. Noother joint pain. She takes ibuprofen prn, not taking often. 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 She is on two new meds and notes herbg is coming down to 134. She also had blurry vision and polyuria Denies any cp/dyspnea/f/c/night sweats/n/v/d/constipation or diarrhea. No recent infections. Background history: Jesika Ryan is a 47 y.o. female who presents today for evaluation of psoriasis and possible psoriatic arthritis but her main complaint is not joint pain. Her symptoms are summarized below: Pt reports initial symptoms began 21 October (which was attributed to stelara) with shaking and not feellike herself. This lasted 7 weeks and resolved. Then in May she had a UTI and saw her pcm for tx, she also asked for tx for her social anxiety. She was initially tx w prozac and queitiapine, which she did not tolerate. She was started on zoloft 50 mg daily. She started trembling thereafter. She would wake up with shaking. She notes her heart was racing, she had a decr in her appetite and lost 43 lbs. She also notes that she was started onativan and propanol. And was dx with anxiety. She thinks the zolft is starting to help and the s/e are leveling off. -not crying anymore -appeite is back She was recently seen by endocrine and found to have ming's and celiac ab pos. She was seen byGI last week and there are plans for a colonoscopy next . She is also seeing a postal service mail processor who reports that her cortisol testing is off. The postal service mail processor felt aln on her neck during the exam and an US confirmed the ln and a CT neck was completed today. Since she has been off of therapy for her psoriasis it has been quite active on her hands, dorsum of her feet, knees and elbows. Her manager community relations wants to start cosentyx but she wanted to hold off until her other symptoms improved. She notes some pip joint pain lasting about 45 mintes, in the am, and the knees, ankles. No real swelling. 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 Comments are only made for responses that are changed from previous, not discussed in HPI, or otherwise require clarification. Systemic Comments 1. Generalized pain 2. Fatigue/tiredness 3. Fevers 4. Chills 5. Night sweats 6. Recent weight loss X intentional 7. Recent Weight gain Head and neck 8. Headaches 9. Neck pain/stiffness 10. Lymphadenopathy 11. Ocular erythema 12. Xerophthalmia 13. Gritty eyes 14. Eye pain 15. Photophobia 16. Oral sores 17. Xerostomia 18. Jaw claudication Cardiopulmonary 19. Chest discomfort 20. Dyspnea 21. Cough 22. Hemoptysis Gastrointestinal 23. Dysphagia 24. Heartburn 25. Nausea 26. Emesis 27. Abdominal pain 28. Hematochezia 29. Diarrhea 30. Constipation Genitourinary 31. Hematuria 32. Dysuria Musculoskeletal 33. Muscle weakness 34. Myalgia 35. Shoulder pain 36. Raynaud's Neuropsychiatric 37. Paresthesia 38. Dysesthesia 39. Dizziness/vertigo 40. Anxiety 41. Depression 42. Cognitive problems 43. Initial insomnia 44. Night awakenings 45. Nonrestorative sleep Dermatologic 46. Xerosis cutis 47. Photosensitivity x 48. Rash x PMHX Psoriasis and PsA hashimotos Celiac? DM SurgHX Ablation, heart tissue aroudn the valve Cyst removed from her neck Family Hx: M: healthy F: mi at 56 Pgf: psoriatic arthritis Siblings: thyroid disease, etoh abuse Child healthy (-)RA, (-)lupus, (-)scleroderma, (-)sjogren's, (-)gout Social Hx: Social History Socioeconomic History ??? Marital status: Spouse name: Not on file ??? Number of children: Not on file ??? Years of education: Not on file ??? Highest education level: Not on file Social Needs ??? Financial resource strain: Not on file ??? Food insecurity - worry: Not on file ??? Food insecurity - inability: Not on file ??? Transportation needs - medical: Not on file ??? Transportation needs - non-medical: Not on file Occupational History ??? Not on file Tobacco Use ??? Smoking status: Former Smoker Types: Cigarettes Last attempt to quit: 03/21/2015 Years since quittin.4 ??? Smokeless tobacco: Never Used Substance and Sexual Activity ??? Alcohol use: No ??? Drug use: No ??? Sexual activity: Yes Partners: Male control/protection: Surgical Other Topics Concern ??? Not on file Social History Narrative ??? Not on file quit the e cig in may No drugs Physical Examination: BP 141/76 Pulse (!) 101 Temp 37.1 ??C (98.7 ??F) (Oral) Ht 160 cm (5' 3) Wt 105.7 kg (233 lb) SpO2 99% BMI 41.27 kg/m?? General: Alert and oriented. Well developed and nourished. The patient did not appear distressed oruncomfortable. Eyes: PERRL. Extraocular muscles were intact. External Eye: No hyperemia of the conjunctiva noted Sclera: Not red. Lungs: Respiration rhythm and depth was normal. Work of breathing was not increased. cta bl no wrr Cardiovascular system: rrr no mrg Lower Extremity Edema: Not present. Musculoskeletal system: (???NML?? means normal; No swelling, warmth, tenderness, loss of range of motion, or deformity as applicable) Hands: MCP???s: NML PIP???s: Right 3rd ttp w very trace synovitis DIP???s: NML, full fist and claw Wrists: NML Elbows: NML Ankles: NML Feet: NML, neg mtp compression Nails: No nail pitting, onycholysis or periungual erythema noted. Neurologic: gait nl from all ext Skin: Psoriasis on the bl hands over the dorsal surface several small spots, Laboratory Data: Labs done outside by Dr Rea reviewed Studies: Impression/Recommendations : Jesika Ryan is a 47 y.o. female with a history of psoriasis and likely very mild psoriatic arthritis who has been on a number of therapies with good control of her joint disease, but ongoing skin disease. She is currently on guselkinumab which she is tolerating well, and is following with dermatology for this. She his also on clobetasol. r hand 3r pip joint pain, trial of diclofenac gel up ot 4x daily to help with pain control and swelling. May also trial advil tid x 1-2 weeks. No injection at this time given she has not tried nsaids, she is nearly due for her injection and her poorly controled DM She is due for the pneumovax 23 today. Labs utd as just completed with endocrinology. Fu in 6 months sooner if she is not controlled Follow-up in 6 months sooner with any changes CC: Leonor Hendricks MD documented in this encounter Plan of Treatment Not on file documented as of this encounter Visit Diagnoses Diagnosis Psoriasis Other psoriasis Psoriatic arthritis Psoriatic arthropathy High risk medication use Encounter for long-term (current) use of other medications Osteoarthritis, unspecified osteoarthritis type, unspecified site documented in this encounter Care Teams Inter Com Installer Relationship Specialty Start Date End Date Leonor Hendricks MD [address] [place] [address] PCP - General Family Medicine 11/27/16 documented as of this encounter
--- OUTSIDE RECORDS SUMMARY | 2024-02-04 01:25 | XMS_ITS | Encounter Summary ---
Author Organization [facility] [place] [address] Care Team Providers Care Power System Operator Name Role Phone Leonor Hendricks MD Primary Care Provider [phone] Encounter Details Date Type Department Care Team (Late st Contact Info) Description 11/14/2018 2:30 PM EDT Office Visit Sleep Center at [facility] [address] [place] [address] Lucrecia Vang APRN [facility] [place] [address] MAGDALENE on CPAP Social History Tobacco Use [...] Sign Reading Time Taken Comments Blood Pressure 117/74 11/14/2018 2:27 PM EDT Pulse 95 11/14/2018 2:27 PM EDT Temperature - - Respiratory Rate - - Oxygen Saturation 97% 11/14/2018 2:27 PM EDT Inhaled Oxygen Concentration - - Weight 104.7 kg (230 lb 12.8 oz) 11/14/2018 2:27 PM EDT Height 160 cm (5' 3) 11/14/2018 2:27 PM EDT Body Mass Index 40.88 11/14/2018 2:27 PM EDT documented in this encounter Patient Instructions * Patient Instructions* Lucrecia Vang APRN - 11/14/2018 2:30 PM EDT Recommendations: --Continue on 8-14cw --Replace mask cushion regularly, reduce condensation in tubing, adjust humidity if dry air, or report any snoring as these may be the cause of elevated VSI or leak; call me and leave a message with us if she finds she is snoring and how often --Call [employer] company for questions on machine, supply replacements, billing, and for confirming compliance met --For dry mouth: 1) adjust humidity and/or heated tube temperature, 2) consider over the counter Biotene mouth rinse, 3) consider room humidifier --Printed handouts given to patient on Helpful PAP tips, supply replacement intervals --Driving safety discussed, recommend patient not drive if drowsy, if drowsy while driving, stick puller and nap. --Follow-up: RTC 1 year with [place] documented in this encounter Progress Notes * Lucrecia Vang APRN - 11/14/2018 2:30 PM EDT Sleep Medicine Follow-Up Note HPI: Ms. Jesika Ryan is a 47 y.o. female seen for annual follow-up of obstructive sleep apnea. HPI continues below. Medical/surgical changes since last seen: None Sleep Study History: 12/28/16 HST, from Dr. [...] a severe degree (AHI of 93.9) noted. CMS AHI of 40.2 which includes onlyapneas and hypopneas with 4% desaturations noted. Minimum saturation asleep of 85%. Mean saturationasleep pretreatment was 95%. Wt: 240lbs Recommendations: 1. Auto-CPAP with a pressure range of 8-14cm, using a Bravida (XS/S) mask, potentially with a need for mask re-fitment if leak is significant at home. Treatment: APAP Device: DreamStation Auto CPAP, setup 08/12/17 Pressure: 8-14cw Pressure Intolerance: fine Interface/Mask: Started with n/ps, Brevida, didn't work for her, didn't like nasal pillows; she is now using AirFit N20 Difficulty tolerating mask interface: she likes it Chin Strap: no HCC: [facility] [place]; getting supplies from Insurance: [employer] Dry Mouth/Throat: no Difficulty Breathing Through Nose/Mouth Breathing: no Symptoms Improved?: Patient-reported last 4 scores: [facility] 2016 09/26/2017 11/13/2018 [facility] 7 6 5 Insomnia Severity Index 10 (Subthreshold insomnia) 4 (No clinically significant insomnia) 2 (No clinically significant insomnia) VR12 - Physical Component Summary 57.68 - - VR12 - Mental Component Summary 31.93 - - Snoring: Not anymore Nocturnal gasping: Not anymore Upon Waking: refreshed now Daytime symptoms improved (Daytime sleepiness/fatigue): thinks energy has improved Naps: less now; before: was twice during the week; with trazodone, can sleep during day AND still go to bed at night Involuntary Dozing: rare Driving: drives, no drowsiness; before: drowsy as she would if she sits at home; she would stick puller or not even drive if very [...] enough ROS: Constitutional: Weight change: Loss of 10lbs since last sleep study ENT: Nasal Obstruction: No CV: chest pain: none Palpitations: had heart catheterization about 20 years ago : Nocturia: no Social History: Living situation: lives with Employment: by 7:30a to [employer], done by 1-2p, working same amount in [...] Outpatient Medications Marked as Taking for the 11/14/18 encounter (Office Visit) with Lucrecia Vang APRN Medication Sig Dispense Refill ??? diclofenac (VOLTAREN) 1 % Gel Apply 2 g topically 4 times daily as needed. 1 Tube 1 ??? guselkumab (TREMFYA) 100 mg/mL Syringe Inject 100 mg subcutaneously Every 8 Weeks. Inject SC one prefilled syringe every eight weeks 1 Syringe 3 ??? halobetasol (ULTRAVATE) 0.05 % Cream Apply to psoriasis twice daily 45 g 3 ??? empagliflozin 25 mg Tablet Take 25 mg by mouth daily. 90 tablet 3 ??? blood sugar diagnostic strips Strip Check blood sugar prior to each meal and at bedtime - 4 times daily. 400 each 3 ??? liraglutide (VICTOZA) 0.6 mg/0.1 mL (18 mg/3 mL) Pen Injector Inject 1.8 mg subcutaneously daily. 3 Syringe 11 ??? insulin needles, disposable, 32 gauge x Needle 1 each by [facility]Non- Drug; Combo Route) route daily. 100 each 3 ??? metFORMIN (GLUCOPHAGE) 500 mg Tablet Take 2 tablets by mouth 2 times daily (with meals). 1 tab in AM x 1wk, then 1 tab 2x/day x 1wk, then 2tab AM + 1tab PM x 1wk, then full dose (Patient taking differently: Take 1,000 mg by mouth 2 times daily (with meals).) 120 tablet 11 ??? norethindrone (AYGESTIN) 5 mg Tablet TAKE ONE TABLET IN THE MORNING AND ONE IN THE EVENING UNTIL THE BLEEDING STOPS. THEN TAKE ONE TABLET DAILY. 6 ??? escitalopram (LEXAPRO) 20 mg Tablet Take 20 mg by mouth daily. 3 Notable Medications: Not on trazodone anymore Aygestin--due to severe menstrual sxs but stopped for now Lexapro: 20mg QD (Prozac, Zoloft didn't help) Jardiance, Metformin, Victoza for new DMII Card Data Download: Date Range: 08/15/18-11/12/18 Pressure: 8-14cw 90% 12.6 Avg 11.1 Residual AHI: 1.4 Avg Vibratory Snore Index: 41.3 Avg % Night in Large Leak: 0.2% Average Usage (Days Used/Hours): 9 hrs 25 mins # Days of usage: 88/90 98% % Days used > 4 hours: 97% Previous Card Data Download: Date Range: 08/12/17-09/23/17 Pressure: 8-14cw Residual AHI: 1.2 Avg Vibratory Snore Index: 17.2 Avg % Night in Large Leak: 0.3% Average Usage (Days Used/Hours): 5 hrs 14 mins # Days of usage: 40/43 93% % Days used > 4 hours: 77% Physical Exam: BP 117/74 (BP Location (NBP): Right arm) Pulse 95 Ht 160 cm (5' 3) Wt 104.7 kg (230 lb 12.8 oz) SpO2 97% BMI 40.88 kg/m?? General: 47 y.o. female, no distress; Respirations: Even and not labored at rest DERM: Skin Irritation: no Assessment Ms. Jesika Ryan is a 47 y.o. female seen for annual f/u of obstructive sleep apneaon APAP therapy. The data download reveals the AHI and leak are well controlled, VSI is elevated, and we discussed possibilities and remedies. Patient continues doing very well with APAP 8-14cw and reports ongoing benefit with symptoms. Usage is excellent. She is no longer on trazodone per recommendation from last visit and sleep onset and maintenance are adequate. Plan/all recommendations below. Recommendations: --Continue on 8-14cw --Replace mask cushion regularly, reduce condensation in tubing, adjust humidity if dry air, or report any snoring as these may be the cause of elevated VSI or leak; call me and leave a message with us if she finds she is snoring and how often --Call DME company for questions on machine, supply replacements, billing, and for confirming compliance met --For dry mouth: 1) adjust humidity and/or heated tube temperature, 2) consider over the counter Biotene mouth rinse, 3) consider room humidifier --Printed handouts given to patient on Helpful PAP tips, supply replacement intervals --Driving safety discussed, recommend patient not drive if drowsy, if drowsy while driving, stick puller and nap. --Follow-up: RTC 1 year with [place] The patient indicates understanding of these issues and agrees with the plan. Lucrecia Vang APRN Cc: Leonor Hendricks MD documented in this encounter Plan of Treatment Not on file documented as of this encounter Visit Diagnoses Diagnosis MAGDALENE on CPAP Obstructive sleep apnea (adult) (pediatric) documented in this encounter Care Teams Power System Operator Relationship Specialty Start Date End Date Leonor Hendricks MD [address] [place] [address] PCP - General Family Medicine 11/27/16 documented as of this encounter
--- OUTSIDE RECORDS SUMMARY | 2024-02-04 01:25 | XMS_ITS | Encounter Summary ---
Author Organization [facility] [place] [address] Care Team Providers Care Human Resources Advisor Name Role Phone Leonor Hendricks MD Primary Care Provider [phone] Reason for Visit * Reason Comments Medication Refill Encounter Details Date Type Department Care Team (Late st Contact Info) Description 07/01/2019 [place] [address] Yareli Morales MD [facility] [place] [address] Social History Tobacco Use Types Packs/Day Years [...] on filedocumented in this encounter Care Teams Human Resources Advisor Relationship Specialty Start Date End Date Leonor Hendricks MD [address] [place], [place] [id number] PCP - General Family Medicine 11/27/16 documented as of this encounter
--- OUTSIDE RECORDS SUMMARY | 2024-02-04 01:25 | XMS_ITS | Encounter Summary ---
Author Organization [facility] [place] [address] Care Team Providers Care Hay Chopper Name Role Phone Leonor Hendricks MD Primary Care Provider Encounter Details Date Type Department Care Team (Late st Contact Info) Description 10/09/2018 1:00 PM EDT Office [place] [id number] Yareli Morales MD [facility] [place] [address] Type 2 diabetes mellitus without complication, without [...] Sign Reading Time Taken Comments Blood Pressure 124/71 10/09/2018 12:52 PM EDT Pulse 113 10/09/2018 12:52 PM EDT Temperature - - Respiratory Rate - - Oxygen Saturation - - Inhaled Oxygen Concentration - - Weight 105.2 kg (232 lb) 10/09/2018 12:52 PM EDT Height 160 cm (5' 3) 10/09/2018 12:52 PM EDT Body Mass Index 41.1 10/09/2018 12:52 PM EDT documented in this encounter Patient Instructions * Patient Instructions* Yareli Morales MD - 10/09/2018 1:00 PM EDT --make sure to take both doses of metformin (2 tabs in AM and 2 tabs in PM) --continue Victoza at 1.8mg daily. --continue Jardiance 25mg daily --intensify your workouts - walk more and as you get stronger try to add some jogs into your workout. Consider adding in some weight training. --keep up the good work with diet. documented in this encounter Progress Notes * Yareli Morales MD - 10/09/2018 1:00 PM EDT Images from the original [...] BID in December 2017. At last visit almost 3 months ago her A1c had suddenly worsened from 8.4% to 11.2% even despite addition of trulicity 0.75mg once weekly, so at last visit we planned the followin. DM type 2 - --stop Trulicity --start Victoza at 1.2mg subcutaneously daily for 1 week. If no nausea, increase to 1.8mg daily thereafter. --get the Freestyle Vazquez glucometer. If unaffordable, please call the office or send [employer] message to let me know. In that case I will prescribe a different glucometer that is covered by your insurance. --check blood sugars every morning fasting before breakfast, and 2 hours after a meal later in the day. --next appointment SaturdayAugust 18 at 11am, come an hour before for blood draw. 2. Imsha's thyroiditis, possible bout of silent thyroiditis currently - Will recheck TFTs next visit in 1 month. 3. Follow-up - 1 month, labs 1 hour prior. She notice improvement in her BG with victoza ramp-up so she didn't end up needing the 1 month planned follow-up. She returns today for her 3-month visit. The Vazquez was very expensive so she got a glucometer. She was able to ramp up the victoza to full dose 1.8mg daily. She has been doing more walking lately. Fasting - 160s-170s (7:30am) If she waits 1.5 hours and only drinks water - BG will come down to the 130s. 2 hours post-lunch - 220s. Component Latest Ref Rng & Units 10/09/2018 07/24/2018 Hemoglobin A1C 4.3 - 5.6 % 8.8 (H) 11.2 (H) Est Avg Gluc mg/dL 205 275 Glucose Lvl 65 - 199 mg/dL 116 Component Latest Ref Rng & Units 10/09/2018 07/24/2018 AST 0 - 30 unit/L 24 42 (H) ALT 0 - 30 unit/L 41 (H) 44 (H) Alk Phos 40 - 104 unit/L 102 115 (H) Total Bilirubin 0.2 - 1.3 mg/dL 0.2 <0.2 (L) Component Latest Ref Rng & Units 10/09/2018 07/24/2018 T3, Free 2.0 - 4.4 pg/mL 2.1 1.9 (L) Free T4 0.93 - 1.70 ng/dL 0.90 (L) 0.98 TSH 0.27 - 4.20 mcIU/mL 3.87 4.30 (H) Date of Diagnosis: December 2017 Last HgbA1c: 8.4% (04/11/18), 9.2% (December 2017 - with PCP), 5.4% (2016) Current Diabetes Medication regimen: Metformin 1000mg BID, but most days she forgets the morning dose. victoza 1.8mg Jardiance 25mg daily FSBG regimen: doesn't have a glucometer currently Hypoglycemia: none Diet: cut out pasta, hard to cut out bread, but eats whole wheat. Produce, chicken, hard boiled eggs, fish, Avoiding sweets. Mostly drinks water or unsweetened tea, when she craves sweetened beverage she goes for diet snapple iced tea. Physical Activity: Smoking: quit December 2015. History of complications 1) Nephropathy - Um:cr , sCr 0.88 GFR 60 (04/11/18) 2) Neuropathy - no n/t. 3) Retinopathy - Last ophtho evaluation - sees Dr. Martin at [facility]. 4) CV disease - LDL PAST MEDICAL HISTORY: Patient Active Problem List Diagnosis Date Noted ??? Psoriatic arthritis 08/25/2018 ??? High risk medication use 08/25/2018 ??? Misha's thyroiditis 2016 ??? Anxiety 2016 ??? Psoriasis 03/12/2011 MEDICATIONS: Medications 10/09/18 1301 Medication Sig Taking? diclofenac (VOLTAREN) 1 % Gel Apply 2 [...] at bedtime - 4 times daily. Yes liraglutide (VICTOZA) 0.6 mg/0.1 mL (18 mg/3 mL) Pen Injector Inject 1.8 mg subcutaneously daily. Yes insulin needles, disposable, 32 gauge x 5/32 Needle 1 each [place] [facility]Non-Drug; Combo Route) route daily. Yes metFORMIN (GLUCOPHAGE) 500 mg Tablet Take [...] Reactions ??? Stelara [Ustekinumab] Other (See Comments) Uygozbzxz-lekgrpw-ghjtwijej SOCIAL HISTORY: Social History Tobacco Use Smoking [...] HPI. PHYSICAL EXAM: Vitals Office Visit from 10/09/2018 in Endocrinology at [place] Weight 105.2 kg (232 lb) Height 160 cm (5' 3) BSA (Calculated - sq m) 2.16 sq meters BMI (Calculated) 41.09 Heart Rate 113 (Abnormal) (has chronic tachycardia, followed by PCP) BP 124/71 Foot exam: no wounds or sores, normal sensation to monofilament bilaterally. 2+ DP. ASSESSMENT: 47 yo F who is type 2 diabetic as of December 2017, A1c much improved from 3 months ago, down from 11.2% to 8.8%. However goal is 7.0%. Her reported FSBG are running a bit higher than goal with fastings in the 160s-170s and post- meal BG in the low 200s, which are concordant with what her A1c suggests. She has not been reliably taking her morning dose of metformin so she plans to get more strict about this, and she is planning to exercise more now that the weather is better. We'll give these changes a chance and see how much more her A1c can improve after she implements them. If A1c isstill not at goal next visit, we discussed possibly adding a sulfonylurea or a once daily long-acting insulin to tighten up her glucose control more. PLAN: 1. DM type 2 - --make sure to [...] 2. Misha's thyroiditis - TSH now euthyroid. Haley GEORGES. Discussed starting LT4 25 mcg daily, but we will hold off on that for now. Will continue to monitor TFTs every visit. 3. Follow-up - January 08 at 1pm - urgent follow-up. Labs 1 hour prior 25 min of this 40 min face to face visit was spent in counseling the patient on DM mgmt. YARELI MORALES MD Marketing Assistant Retail Divisionfairmont gold attendant Section of Endocrinology [facility] documented in this encounter Plan of Treatment Not on file documented as of this encounter Results * U Albumin/Cre Ratio (01/08/2019 11:29 AM EDT) Albumin / Creatinin Ratio, Urine 7 0 - 29 mcg/mg Cr [facility] Comment: Reference Ranges: <30 mcg/mg: [...] 2, 357? 362 Albumin, Urine 6.9 mg/L [facility] Creatinine, Urine 95 mg/dL [facility] Urine specimen (specimen) 01/08/2019 11:29 AM EDT 01/08/2019 11:37 AM EDT Narrative Resulting Agency Comment Spec In Lab Yareli Morales MD URINE ORDERABLES [facility] [place] [address] * T3, free (01/08/2019 11:25 AM EDT) Free T3 2.2 2.0 - 4.4 pg/mL [facility] Blood specimen (specimen) 01/08/2019 11:25 AM EDT 01/08/2019 11:29 AM EDT Narrative Resulting Agency Comment Spec In Lab Yareli Morales MD CHEMISTRY ORDERABLES Performing Organization Address [facility]/ZIP Co de Phone Number [facility] [place] [address] * (ABNORMAL) T4, free (01/08/2019 11:25 AM EDT) [facility] Free T4 0.80(L) 0.93 - 1.70 ng/dL [facility] Blood specimen (specimen) 01/08/2019 11:25 AM EDT 01/08/2019 11:29 AM EDT Narrative Resulting Agency Comment Spec In Lab Yareli Morales MD CHEMISTRY ORDERABLES Performing Organization Address [facility] Co de Phone Number [facility] [place] [address] * TSH (01/08/2019 11:25 AM EDT) [facility] Thyroid Stimulating Hormone 3.93 0.27 - 4.20 mcIU/mL [facility] Blood specimen (specimen) 01/08/2019 11:25 AM EDT 01/08/2019 11:29 AM EDT Narrative Resulting Agency Comment Spec In Lab Yareli Morales MD CHEMISTRY ORDERABLES Performing Organization Address [facility] Co de Phone Number [facility] [place] [address] * (ABNORMAL) Hepatic Function Panel (01/08/2019 11:25 AM EDT) [facility] Protein, Total 8.0 6.1 - 8.0 gm/dL [facility] Albumin 4.3 3.2 - 5.2 gm/dL [facility] Aspartate Aminotransferase 29 0 - 30 unit/L [facility] Alanine Aminotransferase 31(H) 0 - 30 unit/L [facility] Alkaline Phosphatase 93 40 - 104 unit/L [facility] Bilirubin, Total <0.2(L) 0.2 - 1.3 mg/dL [facility] Bilirubin, Direct 0.1 0.0 - 0.3 mg/dL [facility] Blood specimen (specimen) 01/08/2019 11:25 AM EDT 01/08/2019 11:29 AM EDT Narrative Resulting Agency Comment Spec In Lab aYreli Morales MD CHEMISTRY ORDERABLES Performing Organization Address [facility] Co de Phone Number [facility] [place] [address] * (ABNORMAL) Creatinine (01/08/2019 11:25 AM EDT) Creatinine 0.68(L) 0.70 - 1.20 mg/dL [facility] Est Glomerular Filtration Rate 105 >=60 mL/min/1.7 3 m?? [facility] Comment: The eGFR was calculated using the CKD-EPI equation. As with all creatinine based estimates of kidney function, eGFR values calculated with the CKD-EPI equation are not accurate in patients with acute kidney failure, extremes of body mass or the acutely ill. [email or web address] eGFR 122 >=60 mL/min/1.7 3 m?? [facility] Comment: The eGFR was calculated using the CKD-EPI equation. As with all creatinine based estimates of kidney function, eGFR values calculated with the CKD-EPI equation are not accurate in patients with acute kidney failure, extremes of body mass or the acutely ill. [email or web address] Blood specimen (specimen) 01/08/2019 11:25 AM EDT 01/08/2019 11:29 AM EDT Narrative Resulting Agency Comment Spec In Lab Yareli Morales MD CHEMISTRY ORDERABLES Performing Organization Address City/[facility]/ZIP Co de Phone Number [facility] [place] [address] * (ABNORMAL) Hemoglobin A1c (01/08/2019 11:25 AM EDT) Hemoglobin A1c 7.5(H) 4.3 - 5.6 % [facility] Comment: Reference Range: 4.3 - [...] Mellitus, Diabetes Care 2013; 36: Suppl. 1, S67-83 Estimated Average Glucose 169 mg/dL [facility] Comment: eAG equivalents for HbA1c [...] into estimated average glucose values. ??Diabetes Care 2008:31(8):7441-5439. Blood specimen (specimen) 01/08/2019 11:25 AM EDT 01/08/2019 11:29 AM EDT Narrative Resulting Agency Comment Spec In Lab Yareli Morales MD CHEMISTRY ORDERABLES [facility] [place] [address] documented in this encounter Visit Diagnoses Diagnosis Type 2 diabetes mellitus without complication, without long-term current use of insulin Misha's thyroiditis Chronic lymphocytic thyroiditis documented in this encounter Care Teams Hay Chopper Relationship Specialty Start Date End Date Leonor Hendricks MD [address] [place] [address] PCP - General Family Medicine 11/27/16 documented as of this encounter
--- OUTSIDE RECORDS SUMMARY | 2024-02-04 01:25 | XMS_ITS | Encounter Summary ---
Author Organization [facility] [place] [address] Care Team Providers Care Shrub Planter Name Role Phone Leonor Hendricks MD Primary Care Provider [phone] Encounter Details Date Type Department Care Team (Latest Contact Info) Description 10/15/2019 9:30 AM EDT TH Visit (TeleHealth) [place] [address] Yareli Morales MD [facility] [place] [address] Type 2 diabetes mellitus without complication, without [...] Progress Notes * Yareli Morales MD - 10/15/2019 9:30 AM EDT Endocrinology Clinic Follow-up Visit Reason for Visit: Follow-up of DM type 2 The patient consented to todays follow-up visit being conducted by telephone due to the covid-19 pandemic. She was made aware that her insurance will be billed for today's encounter. HISTORY OF PRESENT ILLNESS: Ms. Jesika Ryan [...] 2018, her A1c had improved to 7.5%. At last visit, she noted that the [...] dose, but this has not been bothersome. fsbg 120s fasting and pre-dinner. Lost 11lbs with WW. She thinks she Pre-appt labs today: Component Latest Ref Rng [...] ophtho evaluation - sees Dr. Martin at [facility], no DR (August 2018). Currently [...] Anxiety 2016 ??? Psoriasis 03/12/2011 MEDICATIONS: Medications 03/16/19 1642 Medication Sig Taking? empagliflozin 25 mg Tablet Take 25 mg by mouth daily. liraglutide (VICTOZA) 0.6 mg/0.1 mL (18 mg/3 mL) Pen Injector Inject 1.8 mg subcutaneously daily. ICD 10 Code: E11.9 insulin needles, disposable, 32 gauge x 5/32 Needle 1 each by [facility]Non-Drug; Combo Route) route daily. For Victoza injection. ICD 10 Code: E11.9 metFORMIN (GLUCOPHAGE) 1,000 mg Tablet Take 1 tablet by mouth 2 times daily (with meals). diclofenac (VOLTAREN) 1 % Gel Apply 2 g topically 4 times daily as needed. guselkumab (TREMFYA) 100 mg/mL Syringe Inject 100 mg subcutaneously Every 8 Weeks. Inject SC one prefilled syringe every eight weeks halobetasol (ULTRAVATE) 0.05 % Cream Apply to psoriasis twice daily Patient not taking: Reported on 10/14/2019 blood sugar diagnostic strips Strip Check blood sugar prior to each meal and at bedtime - 4 times daily. norethindrone (AYGESTIN) 5 mg Tablet TAKE ONE TABLET IN THE MORNING AND ONE IN THE EVENING UNTIL THE BLEEDING STOPS. THEN TAKE ONE TABLET DAILY. escitalopram (LEXAPRO) 20 mg Tablet Take 20 mg by mouth daily. ALLERGIES: Allergies Allergen Reactions ??? Stelara [Ustekinumab] Other (See Comments) Jxdjnfznw-wykytov-apsnazyxn SOCIAL HISTORY: Social History Tobacco Use Smoking Status Former Smoker ??? Types: Cigarettes ??? Last attempt to quit: 03/21/2015 ??? Years since quittin.5 Smokeless Tobacco Never Used FAMILY HISTORY: Family History Relation Problem Age of Onset ??? Maternal Aunt Eczema ??? Maternal Grandfather Eczema REVIEW OF SYSTEMS: All 12 systems reviewed and negative except as noted per HPI. PHYSICAL EXAM: Weight: 232lbs Height 53 Gen: NAD, AAOX3, speaking full sentences, calm very pleasant demeanor. ASSESSMENT: 48 yo F who is type 2 diabetic as of December 2017, doing well on current diabetes regimen of metformin, jardiance, and Victoza. She's had some success with losing weight, which has helped aswell. Her FSBG readings fasting and pre-dinner are at goal. PLAN: --continue current diabetes regimen: Metformin 1000mg BID victoza 1.8mg Jardiance 25mg daily --follow-up in 6 months, labs 1 hour prior. Call duration 10 min YARELI MORALES MD Grain Shipperanthropology and archeology instructor Section of Endocrinology [facility] documented in this encounter Plan of Treatment Not on file documented as of this encounter Visit Diagnoses Diagnosis Type 2 diabetes mellitus without complication, without long-term current use of insulin Misha's thyroiditis Chronic lymphocytic thyroiditis documented in this encounter Care Teams Shrub Planter Relationship Specialty Start Date End Date Leonor Hendricks MD [address] [place] [address] PCP - General Family Medicine 11/27/16 documented as of this encounter
--- OUTSIDE RECORDS SUMMARY | 2024-02-04 01:25 | XMS_ITS | Encounter Summary ---
Author Organization [facility] [place] [address] Care Team Providers Care Station Jailer Name Role Phone Leonor Hendricks MD Primary Care Provider [phone] Encounter Details Date Type Department Care Team (Late st Contact Info) Description 09/26/2017 4:00 PM EDT Office Visit Sleep Center at [facility] [address] [place] [address] Lucrecia Vang APRN [facility] DR [place] [address] MAGDALENE on CPAP Social History Tobacco Use [...] Sign Reading Time Taken Comments Blood Pressure 132/70 09/26/2017 3:48 PM EDT Pulse 92 09/26/2017 3:48 PM EDT Temperature - - Respiratory Rate - - Oxygen Saturation 99% 09/26/2017 3:48 PM EDT Inhaled Oxygen Concentration - - Weight 111 kg (244 lb 12.8 oz) 09/26/2017 3:48 P M EDT Height 160 cm (5' 3) 09/26/2017 3:48 PM EDT Body Mass Index 43.36 09/26/2017 3:48 PM EDT documented in this encounter Patient Instructions * Patient Instructions* Lucrecia Vang APRN - 09/26/2017 4:00 PM EDT Recommendations: --Continue on 8-14cw --For dry mouth: 1) adjust humidity and/or heated tube temperature, 2) consider over the counter Biotene mouth rinse, 3) consider room humidifier --Printed handouts given to patient on Sleep Apnea Facts & Figures, parts cleaning/maintenance,supply replacement intervals --Driving safety discussed, recommend patient not drive if drowsy, if drowsy while driving, black puller and nap. --Follow-up: RTC 1 year with [facility] or [facility] or call sooner if needed for mask refit orders, pressure intolerance with weight loss documented in this encounter Progress Notes * Lucrecia Vang APRN - 09/26/2017 4:00 PM EDT Sleep Medicine Follow-Up Note HPI: Ms. Jesika Ryan is a 46 y.o. female seen for follow-up of obstructive sleep apnea. Patient presents today for follow-up in PAP clinic for compliance check: Sleep Study: 12/28/16 HST Total recording time: 598 min ??PRITESH: 5 4% PRITESH:2 Apnea index: 1 Central apnea index: 1 Hypopnea with desaturation > or equal to 3% index: 5 Hypopnea with desaturation > or equal to 4% index: 1 Average SpO2: 94% Minimum SpO2: 83% Weight: 195lbs Home sleep testing was non-diagnostic for obstructive sleep apnea. 07/25/17 split PSG - Respiratory: Obstructive sleep apnea of a severe degree (AHI of 93.9) noted. [facility] AHI of 40.2 which includes only apneas and hypopneas with 4% desaturations noted. Minimum saturation asleep of 85%. Mean saturation asleep pretreatment was 95%. Wt: 240lbs Recommendations: 1. Auto-CPAP with a pressure range of 8-14cm, using a Bravida (XS/S) mask, potentially with a need for mask re-fitment if leak is significant at home. Treatment: APAP Device: DreamStation Auto CPAP, setup 08/12/17 Pressure: 8-14cw Pressure Intolerance: fine Interface/Mask: Started with n/ps, Toni, didn't work for her, didn't like nasal pillows; she is now using AirFit N20 Difficulty tolerating mask interface: she likes it Chin Strap: no HCC: [facility] [place] Insurance: [facility]?: hasn't adjusted Dry Mouth/Throat: Not anymore Difficulty Breathing Through Nose/Mouth Breathing: no Symptoms Improved?: Patient-reported scores: [facility] 09/26/2017 [facility] 6 Insomnia Severity Index 4 (No clinically significant insomnia) VR12 - Physical Component Summary - VR12 - Mental Component Summary - Snoring: Not anymore Nocturnal gasping: Not anymore Nocturnal sleep quality improved: no change Upon Waking: refreshed now Daytime symptoms improved (Daytime sleepiness/fatigue): thinks energy has improved Naps: maybe less now; before: was twice during the week; with trazodone, can sleep during day AND still go to bed at night Involuntary Dozing: rare Cognitive Symptoms: no Driving: drives, no drowsiness; before: drowsy as she would if she sits at home; she would black puller or not even drive if very [...] be about 30 mins latency Wake time: 5:30a, wakes without alarm, wide awake and not as anxious due to less anxiety Rise time: now gets up and goes; before: will lay there to fall back asleep but can't, though sheis exhausted Sleep duration: guesses at 6 hours, doesn't feel like enough ROS: Constitutional: Weight change: Up 4lbs since split PSG ENT: Nasal Obstruction: no : Nocturia: down to once nightly now Social History: Living situation: lives with fiance of 30years 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 Psoriasis L40.9 ??? 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 Anxiety F41.9 Outpatient Prescriptions Marked as Taking for the 09/26/17 encounter (Office Visit) with Lucrecia Vang APRN Medication Sig Dispense Refill ??? secukinumab (COSENTYX PEN, 2 PENS,) 150 mg/mL Pen Injector Inject 300 mg subcutaneously every 28 days. 2 mL 5 ??? escitalopram (LEXAPRO) 20 mg Tablet Take 20 mg by mouth daily. 3 ??? traZODone (DESYREL) 50 mg Tablet Take 25 mg by mouth nightly. ??? clobetasol (TEMOVATE) 0.05 % Cream Apply topically 2 times daily. 30 g 1 ??? levonorgestrel-ethinyl estradiol (AVIANE;ALESSE;LESSINA) 0.1-20 mg-mcg Tablet Take 1 tablet by mouth daily. Reported on 2016 ??? cholecalciferol, Vitamin D3, (VITAMIN D-3) 2,000 unit Tablet Take by mouth daily. Notable Medications: Lorazepam 1mg TID PRN for anxiety; takes one when she wakes in the morning, may take a half in the afternoon Trazodone 50mg tab, now takes 25mg nightly Lexapro: 20mg QD (Prozac, Zoloft didn't help) Card Data Download: Date Range: 08/12/17-09/23/17 Pressure: 8-14cw Residual AHI: 1.2 Avg Vibratory Snore Index: 17.2 Avg % Night in Large Leak: 0.3% Average Usage (Days Used/Hours): 5 hrs 14 mins # Days of usage: 40/43 93% % Days used > 4 hours: 77% Physical Exam: BP 132/70 (BP Location (NBP): Right arm, Patient Position: Sitting, BP Cuff Sizes: Adult (25-34 cm)) Pulse 92 Ht 160 cm (5' 3) Wt 111 kg (244 lb 12.8 oz) SpO2 99% BMI 43.36 kg/m2 General: 46 y.o. female, no distress; Respirations: Even and not labored at rest DERM: Skin Irritation: no Assessment Ms. Jesika Ryan is a 46 y.o. female seen for obstructive sleep apnea. The data download reveals the AHI and leak are well controlled, VSI is creeping upward (was from previous Brevida mask, just received AirFit N20 a few days ago and likes it better). Patient is doing very well with the current pressures of 8-14cw and reports improvement with her sleep quality, daytime energy andalertness--she is no longer snoring or nocturnal gasping, as well. Humidifier/Heater function/rational and settings were reviewed with the patient along with supply replacement. Printed handouts given to patient on Sleep Apnea Facts & Figures, parts cleaning/maintenance, supply replacement intervals. Recommendations: --Continue on 8-14cw --Consider taper off trazodone as ongoing PAP therapy can help mood and sleep onset --For dry mouth: 1) adjust humidity and/or heated tube temperature, 2) consider over the counter Biotene mouth rinse, 3) consider room humidifier --Printed handouts given to patient on Sleep Apnea Facts & Figures, parts cleaning/maintenance,supply replacement intervals --Driving safety discussed, recommend patient not drive if drowsy, if drowsy while driving, black puller and nap. --Follow-up: RTC 1 year with [place] or [facility] or call sooner if needed for mask refit orders, pressure intolerance with weight loss The patient indicates understanding of these issues and agrees with the plan. Lucrecia Vang APRN Cc: Leonor Hendricks MD documented in this encounter Plan of Treatment Not on file documented as of this encounter Visit Diagnoses Diagnosis MAGDALENE on CPAP Obstructive sleep apnea (adult) (pediatric) documented in this encounter Care Teams Station Jailer Relationship Specialty Start Date End Date Leonor Hendricks MD [address] [place] [id number] PCP - General Family Medicine 11/27/16 documented as of this encounter
--- OUTSIDE RECORDS SUMMARY | 2024-02-04 01:25 | XMS_ITS | Encounter Summary ---
Author Organization [facility] [place] [address] Care Team Providers Care Foundry Operator Name Role Phone Leonor Hendricks MD Primary Care Provider [phone] Reason for Visit * Reason Comments Follow-up Psoriasis Encounter Details Date Type Department Care Team (Late st Contact Info) Description 02/07/2018 3:30 PM EDT Office Visit Dermatology at [address] [place] [address] Andreas Richardson MD [address] [facility] A DERMATOLOGY [place], [place] [phone] Psoriasis Social History Tobacco Use Types Packs/Day [...] Progress Notes * Andreas Richardson MD - 02/07/2018 3:30 PM EDT Problem: 1. Follow-up psoriasis on Tremfya, status [...] months. Jesika follows up and is doing wonderfully. Her psoriasis is clearing on her elbows and dorsal handson her knees. She is not having any reaction to the new medication. She is tolerating it well. She does not have any fever or chills. With the Cosentyx she was getting warm plaques 10 x 13 cm at the injection sites with very slow healing. Physical examination reveals a pleasant 47-year-old woman whose psoriasis is significantly improvedwith minimal erythema minimal scaling remaining on the elbows and knees and dorsal hands. Assessment plan: Psoriasis, responding well to Tremfya 1. Continue current medication dispense 100 mg prefilled syringe inject 1 every 8 weeks. Dispense one with 3 refills 2. Return to clinic in 6 months repeat check. 3. Patient congratulated on her wonderful response Cc: Leonor Hendricks MD documented in this encounter Plan of Treatment Not on file documented as of this encounter Visit Diagnoses Diagnosis Psoriasis Other psoriasis documented in this encounter Care Teams Foundry Operator Relationship Specialty Start Date End Date Leonor Hendricks MD [address] [place] [address] PCP - General Family Medicine 11/27/16 documented as of this encounter
--- OUTSIDE RECORDS SUMMARY | 2024-02-04 01:25 | XMS_ITS | Encounter Summary ---
Author Organization [facility] [place] [address] Care Team Providers Care Tack Puller Name Role Phone Leonor Hendricks MD Primary Care Provider [phone] Encounter Details Date Type Department Care Team (Late st Contact Info) Description 10/23/2017 3:45 PM EDT [place] [phone] [facility] [facility] [place] [address] Photosensitivity dermatitis Social History Tobacco Use Types Packs/Day Years [...] Sign Reading Time Taken Comments Blood Pressure 122/69 10/23/2017 3:20 PM EDT Pulse 104 10/23/2017 3:20 PM EDT Temperature 37.1 ??C (98.7 ??F) 10/23/2017 3:20 PM ED T Respiratory Rate - - Oxygen Saturation 99% 10/23/2017 3:20 PM EDT Inhaled Oxygen Concentration - - Weight 110.7 kg (244 lb) 10/23/2017 3:20 PM EDT Height 160 cm (5' 3) 10/23/2017 3:20 PM EDT Body Mass Index 43.22 10/23/2017 3:20 PM EDT documented in this encounter Progress Notes * Jacinta Browne, DO - 10/23/2017 3:45 PM EDT Previously on Stelara, Humira, Enbrel, cyclosporine, methotrexate, hydroxyurea, sulfasalazine, and Otezla, Cosentyx History of Present Illness: Jesika presents for follow up. She is currently off of the cosentyx. Her skin is flaring. Reports increasing rash on her hands, feet, knees, elbows and scalp. She reports flaring from August through the fall and then improves. She reports the skin sig worsens w UV exposure and she gets associated blistering. She currently has some mild pain in her mcps but feels this is related to her skin, she does have stiffness in her pips but it is not significant. She notes in august she flares. She has been off of cosentyx. She notes worsening in the summer. The Taltz has been approved but she has not yet received it. Background history: Jesika Ryan is a 46 y.o. female who presents today for evaluation of psoriasis and possible psoriatic arthritis but her main complaint is not joint pain. Her symptoms are summarized below: Pt reports initial symptoms began 7 October (which was attributed to stelara) with [...] next . She is also seeing a rn admit who reports that her cortisol testing is off. The rn admit felt aln on her neck during the exam and an US confirmed the ln and a CT neck was completed today. Since she has been off of therapy for her psoriasis it has been quite active on her hands, dorsum of her feet, knees and elbows. Her seam steamer wants to start cosentyx but she wanted [...] Care Maintenance Date Next Due Influenza vaccine Pneumonia vaccine TB Screen (PPD/QGA) DXA HCQ Eye Exam Viral Hepatitis Screen Review of Systems: X = positive response. Comments are only made for responses that are changed from previous, not discussed in HPI, or otherwise require clarification. Systemic Comments 1. Generalized pain 2. Fatigue/tiredness x 3. Fevers 4. Chills 5. Night sweats 6. Recent weight loss 7. Recent Weight gain x Head and neck 8. Headaches 9. Neck [...] Photosensitivity x 48. Rash x PMHX Psoriasis hashimotos Celiac? SurgHX Ablation, heart tissue aroudn the valve Cyst removed from her neck Family Hx: M: healthy F: mi at 56 Pgf: psoriatic arthritis Siblings: thyroid disease, etoh abuse Child healthy (-)RA, (-)lupus, (-)scleroderma, (-)sjogren's, (-)gout Social Hx: Social History Social History ??? Marital status: Spouse name: N/A ??? Number of children: N/A ??? Years of education: N/A Social History Main Topics ??? Smoking status: Former Smoker Types: Cigarettes Quit date: 03/21/2015 ??? Smokeless tobacco: Never Used ??? Alcohol use No ??? Drug use: No ??? Sexual activity: Yes Partners: Male control/ protection: Surgical Other Topics Concern ??? None Social History Narrative quit the e cig in may No drugs Physical Examination: BP 122/69 Pulse (!) 104 Temp 37.1 ??C (98.7 ??F) (Oral) Ht 160 cm (5' 3) Wt 110.7 kg (244 lb) SpO2 99% BMI 43.22 kg/m2 See vitals from appointment in hematology oncology General: Alert and oriented. Well developed and nourished. The patient did not appear distressed oruncomfortable. The patient ambulated without difficulty or assistance. Head: Scalp: psoriasis Eyes: PERRL. Extraocular muscles were intact. External Eye: No hyperemia of the conjunctiva noted Sclera: Not red. . Pharynx: Pharynx did not have an ulcer. Lungs: Respiration rhythm and depth was normal. Work of breathing was not increased. Cardiovascular system: Lower Extremity Edema: Not present. Musculoskeletal system: (???NML?? means normal; No swelling, warmth, tenderness, loss of range of motion, or deformity as applicable) Hands: MCP???s: NML but ttp over the skin lesions PIP???s: NML DIP???s: NML, full fist and claw Wrists: NML Elbows: NML Ankles: NML Feet: NML, neg mtp compression Nails: No nail pitting, onycholysis or periungual erythema noted. Neurologic: gait nl from all ext Skin: Psoriasis on the right hand over the dorsal surface several small spots, and over the feet, over bl elbow bilateral knee worsend Laboratory Data: reviewed Studies: Impression/Recommendations : Jesika M Connor is a 46 y.o. female with a history of psoriasis and likely very mild psoriatic arthritis who has been on a number of therapies with good control of her joint disease, but ongoign skin disease. She will be starting taltz soon, and dicussed with her adding a dmard to the regimen to help with her skin disease, she would like to hold off for now but is opening to retrying injectablemtx. Arthralgias: Joint disease may be due to psoriatic arthritis however no swelling on exam today and seems to controlled any therapy she has taken. x-rays were within normal limits. Fu in 6 months sooner if she is not controlled Follow-up in 6 months sooner with any changes CC: Leonor Hendricks MD documented in this encounter Plan of Treatment Not on file documented as of this encounter Procedures Procedure Name Priority Date/Time Associated Diagnosis Comments EXTRACTABLE NUCLEAR ANTIGEN (ALEK) AB Routine 10/23/2017 4:26 PM EDT Photosensitivity dermatitis LOVE ANTIBODY SCREEN Routine 10/23/2017 4 :26 PM EDT Photosensitivity dermatitis documented in this encounter Results * Extractable Nuclear Antigen (ALEK) Ab (10/23/2017 4:26 PM EDT) ALEK Ab Test ?Result ?Flag ??Unit ??RefValue Ab to Extractable Nuclear Ag Eval,S ??SS-A/Ro Ab, IgG, S ?<0.2 ?U ? <1.0 (Negative) ??SS-B/La Ab, IgG, S ?<0.2 ?U ? <1.0 (Negative) ??Sm Ab, IgG, S ? <0.2 ?U ? <1.0 (Negative) ??ROUGHER OPERATOR Ab, IgG, S ?0.4 ? U ? <1.0 (Negative) ??Scl 70 Ab, IgG, S ? <0.2 ?U ? <1.0 (Negative) ??Akila 1 Ab, IgG, S ? <0.2 ?U ? <1.0 (Negative) ?Test Performed by: ?[facility] ?[address] [place], [place] [id number] [place] [address] LABORATORY Blood specimen (specimen) 10/23/2017 4:26 PM EDT 10/24/2017 8:46 AM EDT Narrative Resulting Agency Comment Spec In Lab Jacinta Browne DO LAB SEND OUT ORDER AKBAR [facility] [place] [address] * LOVE (10/23/2017 4:26 PM EDT) LOVE Neg Neg [facility] Blood specimen (specimen) 10/23/2017 4:26 PM EDT 10/24/2017 8:26 AM EDT Narrative Resulting Agency Comment Spec In Lab Jacinta Browne DO LAB SEND OUT ORDER AKBAR Performing Organization Address City/State/[facility] Co de Phone Number [facility] [place] [address] documented in this encounter Visit Diagnoses Diagnosis Photosensitivity dermatitis Acute dermatitis due to solar radiation documented in this encounter Care Teams Tack Puller Relationship Specialty Start Date End Date Leonor Hendricks MD [address] [place] [address] PCP - General Family Medicine 11/27/16 documented as of this encounter
--- OUTSIDE RECORDS SUMMARY | 2024-02-04 01:25 | XMS_ITS | Encounter Summary ---
[place] [address] Care Team Providers Care Dean Name Role Phone Leonor Hendricks MD Primary Care Provider [phone] Encounter Details Date Type Department Care Team (Latest Contact Info) Description 01/08/2019 12:00 PM EDT Laboratory Appointment Lab [address] [place] [phone] Type 2 diabetes mellitus without complication, without [...] Procedure Name Priority Date/Time Associated Diagnosis Comments U ALBUMIN/CRE RATIO Routine 01/08/2019 1 1:29 AM EDT Type 2 diabetes mellitus without complication, without long-term current use of insulin CREATININE STAT 01/08/2019 11:25 AM EDT Type 2 diabetes mellitus without complication, without long-term current use of insulin T3, FREE STAT 01/08/2019 11:25 AM EDT Misha's thyroiditis TSH Routine 01/08/2019 11:25 AM EDT Misha's thyroiditis T4, FREE STAT 01/08/2019 11:25 AM EDT Misha's thyroiditis HEMOGLOBIN A1C STAT 01/08/2019 11:25 AM EDT Type 2 diabetes mellitus without complication, without long-term current use of insulin HEPATIC FUNCTION PANEL STAT 01/08/2019 11:25 AM EDT Type 2 diabetes mellitus without complication, without long-term current use of insulin documented in this encounter Results * U Albumin/Cre Ratio (01/08/2019 11:29 AM EDT) Albumin / Creatinin Ratio, Urine 7 0 - 29 mcg/mg Cr [facility] Comment: Reference Ranges: <30 mcg/mg: Normal [...] 2, 357? 362 Albumin, Urine 6.9 mg/L [facility] Creatinine, Urine 95 mg/dL [facility] Urine specimen (specimen) 01/08/2019 11:29 AM EDT 01/08/2019 11:37 AM EDT Narrative Resulting Agency Comment Spec In Lab Yareli Morales MD URINE ORDERABLES [facility] [place] [address] * (ABNORMAL) Hemoglobin A1c (01/08/2019 11:25 AM EDT) Hemoglobin A1c 7.5(H) 4.3 - 5.6 % [facility] Comment: Reference Range: 4.3 [...] Mellitus, Diabetes Care 2013; 36: Suppl. 1, S67-13 Estimated Average Glucose 169 mg/dL [facility] Comment: eAG equivalents for [...] into estimated average glucose values. ??Diabetes Care 2008:31(8):4536-5671. Blood specimen (specimen) 01/08/2019 11:25 AM EDT 01/08/2019 11:29 AM EDT Narrative Resulting Agency Comment Spec In Lab Yareli Morales MD CHEMISTRY ORDERABLES Performing Organization Address [facility] Co de Phone Number [facility] [place] [address] * (ABNORMAL) Creatinine (01/08/2019 11:25 AM EDT) Creatinine 0.68(L) 0.70 - 1.20 mg/dL [facility] Est Glomerular Filtration Rate 105 >=60 mL/min/1.7 3 m?? [facility] Comment: The eGFR was calculated using the CKD-EPI equation. As with all creatinine based estimates of kidney function, eGFR values calculated with the CKD-EPI equation are not accurate in patients with acute kidney failure, extremes of body mass or the acutely ill. [email or web address] eGFR 122 >=60 mL/min/1.7 3 m?? [facility] Comment: The eGFR was calculated using the CKD-EPI equation. As with all creatinine based estimates of kidney function, eGFR values calculated with the CKD-EPI equation are not accurate in patients with acute kidney failure, extremes of body mass or the acutely ill. [email or web address] Blood specimen (specimen) 01/08/2019 11:25 AM EDT 01/08/2019 11:29 AM EDT Narrative Resulting Agency Comment Spec In Lab Yareli Morales MD CHEMISTRY ORDERABLES Performing Organization Address [facility] Co de Phone Number [facility] [place] [address] * (ABNORMAL) Hepatic Function Panel (01/08/2019 11:25 AM EDT) Protein, Total 8.0 6.1 - 8.0 gm/dL [facility] Albumin 4.3 3.2 - 5.2 gm/dL [facility] Aspartate Aminotransferase 29 0 - 30 unit/L [facility] Alanine Aminotransferase 31(H) 0 - 30 unit/L [facility] Alkaline Phosphatase 93 40 - 104 unit/L [facility] Bilirubin, Total <0.2(L) 0.2 - 1.3 mg/dL [facility] Bilirubin, Direct 0.1 0.0 - 0.3 mg/dL [facility] Blood specimen (specimen) 01/08/2019 11:25 AM EDT 01/08/2019 11:29 AM EDT Narrative Resulting Agency Comment Spec In Lab Yareli Morales MD CHEMISTRY ORDERABLES [facility] [place] [address] * TSH (01/08/2019 11:25 AM EDT) Thyroid Stimulating Hormone 3.93 0.27 - 4.20 mcIU/mL [facility] Blood specimen (specimen) 01/08/2019 11:25 AM EDT 01/08/2019 11:29 AM EDT Narrative Resulting Agency Comment Spec In Lab Yareli Morales MD CHEMISTRY ORDERABLES Performing Organization Address City/[facility] Co de Phone Number [facility] [place] [address] * (ABNORMAL) T4, free (01/08/2019 11:25 AM EDT) Free T4 0.80(L) 0.93 - 1.70 ng/dL [facility] Blood specimen (specimen) 01/08/2019 11:25 AM EDT 01/08/2019 11:29 AM EDT Narrative Resulting Agency Comment Spec In Lab Yareli Morales MD CHEMISTRY ORDERABLES Performing Organization Address City/[facility] Co de Phone Number [facility] [place] [address] * T3, free (01/08/2019 11:25 AM EDT) Free T3 2.2 2.0 - 4.4 pg/mL [facility] Blood specimen (specimen) 01/08/2019 11:25 AM EDT 01/08/2019 11:29 AM EDT Narrative Resulting Agency Comment Spec In Lab Yareli Morales MD CHEMISTRY ORDERABLES Performing Organization Address City/State/[facility] Co de Phone Number [facility] [place] [address] documented in this encounter Visit Diagnoses Diagnosis Type 2 diabetes mellitus without complication, without long-term current use of insulin Misha's thyroiditis Chronic lymphocytic thyroiditis documented in this encounter Care Teams Dean Relationship Specialty Start Date End Date Leonor Hendricks MD [address] [place] [address] PCP - General Family Medicine 11/27/16 documented as of this encounter
--- OUTSIDE RECORDS SUMMARY | 2024-02-04 01:25 | XMS_ITS | Encounter Summary ---
Author Organization [facility] [place] [address] Care Team Providers Care Pug Mill Operator Name Role Phone Leonor Hendricks MD Primary Care Provider [phone] Encounter Details Date Type Department Care Team (Late st Contact Info) Description 10/19/2019 Telephone [facility] [address] [place] [phone] Moni Ramírez Social History Tobacco Use Types Packs/Day Years [...] encounter Miscellaneous Notes * Telephone Encounter - Lucrecia Vang APRN - 10/20/2019 10:39 AM EDT Called patient: recommended adjusting heat and humidity settings due to condensation, using lotion or antibacterial ointment (if not allergic on face), getting cloth mask liner (gave [employer] info).She wants to stay with AirFit N20 mask but hard to use right now. We will review what she tried when I see her at end of the month. Knows to call DME for additional questions re settings. LUCRECIA VANG APRN documented in this encounter Plan of Treatment Not on file documented as of this encounter Visit Diagnoses Not on filedocumented in this encounter Care Teams Pug Mill Operator Relationship Specialty Start Date End Date Leonor Hendricks MD [address] [place] [address] PCP - General Family Medicine 11/27/16 documented as of this encounter
--- OUTSIDE RECORDS SUMMARY | 2024-02-04 01:25 | XMS_ITS | Encounter Summary ---
Author [facility] [place] [address] Care Team Providers Care Nut Roaster Name Role Phone Leonor Hendricks MD Primary Care Provider Reason for Visit * Reason Comments Follow-up Psoriasis Encounter Details Date Type Department Care Team (Late st Contact Info) Description 03/16/2019 4:15 PM EDT Office Visit Dermatology at [address] [address] Andreas Richardson MD [address] [facility] [place] [address] Psoriasis Social History Tobacco Use Types Packs/Day [...] Progress Notes * Andreas Richardson MD - 03/16/2019 4:15 PM EDT Problem: 1. ??Follow-up psoriasis on Tremfya, initiated November 2017. ?? 2. ??On Cosentyx September 2016 through September 2017 with initial improvement but then allergic reaction 3. ??Previously on Stelara, Humira, Enbrel, cyclosporine, methotrexate, hydroxyurea, sulfasalazine,and Otezla 4. ??Psoriasis usually worse for this patient in the summer months, then better in the winter months. Jesika follows but is doing beautifully. The Tremfya continues to work well for her. She is not having any injection site reactions, no fevers no chills. She gave herself one injection every 2 months.There only shipping one syringe at a time to her. She gets medication however in a timely fashion. Her prior authorization is good through October 2019. Physical examination reveals a pleasant 48-year-old woman who is psoriasis is very well controlled.She has minimal to no involvement in her scalp, she has no involvement on her elbows. She does not have any involvement on her knees. She has one small patch on the left lateral ankle and some minimal patches over the MCPs of her hands. Assessment and plan: Psoriasis responding well to Tremfya 1. Continue Tremfya 100 mg injections inject contents of 1 prefilled syringe subcutaneously every 2months. 2. Refills were given to her dispense 3 syringes for a 6-month supply with 0 refills March 05, 2019. 3. Return to clinic in 6 months for repeat check. 4. Could consider Kenalog injection to involvement on the dorsal hands of her MCPs. 5. Patient congratulated on her wonderful response CC: Leonor Hendricks MD documented in this encounter Plan of Treatment Not on file documented as of this encounter Visit Diagnoses Diagnosis Psoriasis Other psoriasis documented in this encounter Care Teams Nut Roaster Relationship Specialty Start Date End Date Leonor Hendricks MD [address] [place] [address] PCP - General Family Medicine 11/27/16 documented as of this encounter
--- OUTSIDE RECORDS SUMMARY | 2024-02-04 01:25 | XMS_ITS | Encounter Summary ---
Author Organization [facility] [place] [address] Care Team Providers Care Gas Line Installer Name Role Phone Leonor Hendricks MD Primary Care Provider [phone] Reason for Visit * Reason Onset Date Comments Medication Refill 08/26/2019 Encounter Details Date Type Department Care Team (Late st Contact Info) Description 08/26/2019 [place] [address] Yareli Morales MD [facility] [place] [address] Social History Tobacco Use Types Packs/Day Years [...] on filedocumented in this encounter Care Teams Gas Line Installer Relationship Specialty Start Date End Date Leonor Hendricks MD [address] [place] [address] PCP - General Family Medicine 11/27/16 documented as of this encounter
--- OUTSIDE RECORDS SUMMARY | 2024-02-04 01:25 | XMS_ITS | Encounter Summary ---
Author Organization [facility] [place] [address] Care Team Providers Care Percussion Instructor Name Role Phone Leonor Hendricks MD Primary Care Provider [phone] Reason for Visit * Reason Onset Date Comments Medication Refill 07/08/2019 Encounter Details Date Type Department Care Team (Late st Contact Info) Description 07/08/2019 Refill [place] [address] Autumn Kilpatrick MD [facility] [address] [place] [address] Social History Tobacco Use Types Packs/Day Years [...] on filedocumented in this encounter Care Teams Percussion Instructor Relationship Specialty Start Date End Date Leonor Hendricks MD [address] [place] [address] PCP - General Family Medicine 11/27/16 documented as of this encounter
--- OUTSIDE RECORDS SUMMARY | 2024-02-04 01:25 | XMS_ITS | Encounter Summary ---
[place] [address] Care Team Providers Care Chief Engineer Drilling And Recovery Name Role Phone Leonor Hendricks MD Primary Care Provider [phone] Encounter Details Date Type Department Care Team (Late st Contact Info) Description 10/15/2017 [place] [address] Jason Brady Social History Tobacco Use Types Packs/Day Years [...] as of this encounter Progress Notes * Jason Brady - 10/15/2017 2:30 PM EDT [facility] Prior Authorization Medication: Taltz RX Insurance: [employer] Insurance Phone #: [phone] Insurance Fax #: Submitted verbally ID #: [id number] Spoke With: sandy UNGER Reference #: [id number] Date PA Sent: 10/15/2017 Approval Date: 10/15/2017 - 10/15/2018 Pharmacy: [facility] Notes: The Arben UNGER has been submitted and approved through the [employer] insurance, but patient must fill through [facility]. We will notify the patient of the approval and insurance requirements. documented in this encounter Plan of Treatment Not on file documented as of this encounter Visit Diagnoses Not on filedocumented in this encounter Care Teams Chief Engineer Drilling And Recovery Relationship Specialty Start Date End Date Leonor Hendricks MD [address] [place] [address] PCP - General Family Medicine 11/27/16 documented as of this encounter
--- OUTSIDE RECORDS SUMMARY | 2024-02-04 01:25 | XMS_ITS | Encounter Summary ---
[facility] [place] [address] Care Team Providers Care Engineering Aide Name Role Phone Leonor Hendricks MD Primary Care Provider [phone] Reason for Visit * Reason Comments Follow-up Psoriasis Encounter Details Date Type Department Care Team (Late st Contact Info) Description 10/14/2017 4:30 PM EDT Office Visit Dermatology at [address] [address] Andreas Richardson MD [address] [facility] [place] [facility] [place], [place] [id number] Psoriasis Social History Tobacco Use Types Packs/Day [...] Progress Notes * Andreas Richardson MD - 10/14/2017 4:30 PM EDT Problem: 1. Follow-up psoriasis on Cosentyx since September 2016, now worsening 2. Previously on Stelara, Humira, Enbrel, cyclosporine, methotrexate, hydroxyurea, sulfasalazine, and Otezla 3. Patient usually works for this patient in the summer months than in the winter months particularly starting in August Jesika follows up and her psoriasis is beginning to flare. Since I last saw her in July, she hasnoted that the papules on the knuckles are enlarging and becoming confluent. She has worsening involvement on her elbows. She has worsening involvement on her legs and knees. She is getting more in her scalp. 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 She is not traveled out of the area. She did try to get a couple of tanning cook sessions but this was not helpful in fact if anything it made things worse. Physical examination confirms the above findings. Assessment plan: Psoriasis worsening despite Cosentyx injections two monthly 1. She is paying a $100 co-pay currently for a one-month supply of Cosentyx. Hold this for now 2. Will attempt to get prior authorization for talus utilizing 80 mg autoinjector pen. Inject contents of 2 pens week 0, and one pen 80 mg at weeks 246 810 and 12 and then every 4 weeks thereafter dispense a 3 month supply with 1 refill return to clinic in 3 months for repeat check 3. Recommend that the patient utilize for now emollient cream and clobetasol Cc: Leonor Hendricks MD documented in this encounter Plan of Treatment Not on file documented as of this encounter Visit Diagnoses Diagnosis Psoriasis Other psoriasis documented in this encounter Care Teams Engineering Aide Relationship Specialty Start Date End Date Leonor Hendricks MD [address] [place] [address] PCP - General Family Medicine 11/27/16 documented as of this encounter
--- OUTSIDE RECORDS SUMMARY | 2024-02-04 01:25 | XMS_ITS | Encounter Summary ---
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 Pre-Telemedicine Phone Note [] Patient not reached [x] Patient reached and the following information was reviewed/obtained per protocol: [x] Confirmed patient name and date of [] Confirmed telemedicine ashvin (Vidyo and Virtual Visit) is downloaded and functioning [x] Confirmed location of patient - TeleVisit is taking place in [x] [place] [] [place] [] If not on [facility], working on signing up for [facility] [] Confirmed has completed any pre-visit questionnaires [] If has not received required pre-visit questionnaires, send via [facility] [x] Reviewed patient medications [x] Documented self-reported vitals: [] Weight: 232lbs [] Height 53 [] pulse recorded: [] Other information or concerns documented in this encounter Plan of Treatment Not on file documented as of this encounter Visit Diagnoses Not on filedocumented in this encounter Care Teams Casing Running Machine Tender Relationship Specialty Start Date End Date Leonor Hendricks MD [address] [place] [address] PCP - General Family Medicine 11/27/16 documented as of this encounter
--- OUTSIDE RECORDS SUMMARY | 2024-02-04 01:25 | XMS_ITS | Encounter Summary ---
Author Organization [facility] [place] [address] Care Team Providers Care Duplicating Machine Servicer Name Role Phone Leonor Hendricks MD Primary Care Provider [phone] Encounter Details Date Type Department Care Team (Late st Contact Info) Description 04/17/2018 1:00 PM EDT Office Visit [place] [phone] Yareli Morales MD [facility] [place] [address] Type 2 diabetes mellitus without complication, without [...] Sign Reading Time Taken Comments Blood Pressure 127/75 04/17/2018 1:02 PM EDT Pulse 102 04/17/2018 1:02 PM EDT Temperature - - Respiratory Rate - - Oxygen Saturation - - Inhaled Oxygen Concentration - - Weight 107 kg (236 lb) 04/17/2018 1:02 PM EDT Height 160 cm (5' 3) 04/17/2018 1:02 PM EDT Body Mass Index 41.81 04/17/2018 1:02 PM EDT documented in this encounter Progress Notes * Yareli Morales MD - 04/17/2018 1:00 PM EDT Images from the original note were not included. Endocrinology Clinic Follow-up Visit Reason for Visit: Follow-up of recently dx DM type 2 and hypothyroidism HISTORY OF PRESENT ILLNESS: Ms. Jesika Rayn is a 47 y.o. year old lady with history significant for DM type 2, newly diagnosed in December 2017 after being prediabetic for some time (signs of prediabetes seen on mixed meal test in Jun 2017). I started her on metformin 1000mg BID in December 2017. She admits she forgets the morning metformin dose most days so she is really only taking it once a day. Got flu shot with PCP 1 month ago. She did some bloodwork on 04/11/18, ordered by PCP, which she brought with her today, which included the following results: Fasting glucose 243 Creatinine 0.88 GFR >60 Fasting c-peptide 6.6 (ULN 4.4) A1c 8.4% Date of Diagnosis: December 2017 Last HgbA1c: 8.4% (04/11/18), 9.2% (December 2017 - with PCP), 5.4% (2016) Current Diabetes Medication regimen: Metformin 1000mg BID, but most days she forgets the morning dose. FSBG regimen: doesn't have a glucometer currently Hypoglycemia: none Diet: B - austrian muffin + butter, sometimes PB, banana L [...] ophtho evaluation - sees Dr. Martin at [facility]. 4) CV disease - LDL PAST MEDICAL HISTORY: Patient Active Problem List Diagnosis Date Noted ??? Misha's thyroiditis 2016 ??? Anxiety 2016 ??? Psoriasis 03/12/2011 MEDICATIONS: Medications 04/17/18 1305 Medication Sig Taking? guselkumab (TREMFYA) 100 mg/mL Syringe Inject 100 [...] Reactions ??? Stelara [Ustekinumab] Other (See Comments) Sdzckgcjo-ocpytgl-aiblefhjv SOCIAL HISTORY: Social History Tobacco Use Smoking Status Former Smoker ??? Types: Cigarettes ??? Last attempt to quit: 03/21/2015 ??? Years since quittin.0 Smokeless Tobacco Never Used FAMILY HISTORY: Family History Relation Problem Age of Onset ??? Maternal Aunt Eczema ??? Maternal Grandfather Eczema REVIEW OF SYSTEMS: All 12 systems reviewed and negative except as noted per HPI. PHYSICAL EXAM: Vitals Office Visit from 04/17/2018 in Endocrinology at [place] Weight 107 kg (236 lb) Height 160 cm (5' 3) BSA (Calculated - sq m) 2.18 sq meters BMI (Calculated) 41.8 Heart Rate 102 (Abnormal) BP 127/75 Foot exam: no wounds or sores, normal sensation to monofilament bilaterally. 2+ DP. ASSESSMENT: 47 yo F who is type 2 diabetic as of December 2017, A1c improved from 9.2% to 8.5% on metformin 1000mg once daily since then, but it is still not at her goal of 7.0%. Considering her challenges with compliance, I suggested adding a once weekly GLP-1 agonist. She is quite interested in trying this. She has no history of acute pancreatitis and no history or family history of medullary thyroid cancer, nor any s/s of gastroparesis, so she has no contraindications to GLP-1 use. PLAN: --add trulicity 0.75 mg once weekly --continue metformin - try to remember morning dose. --follow-up in 3 months 25 min of this 40 min face to face visit was spent in counseling the patient on DM mgmt. YARELI MORALES MD Entry Level Buyeruser interface engineer Section of Endocrinology [facility] documented in this encounter Plan of Treatment Not on file documented as of this encounter Results * LDL Cholesterol, Direct (07/24/2018 11:27 AM EST) LDL Cholesterol, Direct 115 mg/dL [facility] Comment: Lowest Risk: <100 mg/dL Lower Risk: 100-129 mg/dL Borderline High Risk: 130-159 mg/dL High Risk: 160-189 mg/dL Very High Risk: >on=248 mg/dL Blood specimen (specimen) 07/24/2018 11:27 AM EST 07/24/2018 11:40 AM EST Narrative Resulting Agency Comment Spec In Lab Yareli Morales MD CHEMISTRY ORDERABLES [facility] [place] [address] * (ABNORMAL) Hemoglobin A1c (07/24/2018 11:27 AM EST) Hemoglobin A1c 11.2(H) 4.3 - 5.6 % [facility] [...] Mellitus, Diabetes Care 2013; 36: Suppl. 1, U65-64 Estimated Average Glucose 275 mg/dL [facility] Comment: eAG equivalents [...] into estimated average glucose values. ??Diabetes Care 2008:31(8):6136-3842. Blood specimen (specimen) 07/24/2018 11:27 AM EST 07/24/2018 11:40 AM EST Narrative Resulting Agency Comment Spec In Lab Yareli Morales MD CHEMISTRY ORDERABLES Performing Organization Address [facility] Co de Phone Number [facility] [place] [address] * (ABNORMAL) T3, free (07/24/2018 11:27 AM EST) Free T3 1.9(L) 2.0 - 4.4 pg/mL [facility] Blood specimen (specimen) 07/24/2018 11:27 AM EST 07/24/2018 11:40 AM EST Narrative Resulting Agency Comment Spec In Lab Yareli Morales MD CHEMISTRY ORDERABLES Performing Organization Address [facility]/ZIP Co de Phone Number [facility] [place] [address] * T4, free (07/24/2018 11:27 AM EST) Free T4 0.98 0.93 - 1.70 ng/dL [facility] Blood specimen (specimen) 07/24/2018 11:27 AM EST 07/24/2018 11:40 AM EST Narrative Resulting Agency Comment Spec In Lab Yareli Morales MD CHEMISTRY ORDERABLES Performing Organization Address City/[facility]/ZIP Co de Phone Number [facility] [place] [address] * (ABNORMAL) TSH (07/24/2018 11:27 AM EST) Thyroid Stimulating Hormone 4.30(H) 0.27 - 4.20 mlU/ML [facility] Blood specimen (specimen) 07/24/2018 11:27 AM EST 07/24/2018 11:40 AM EST Narrative Resulting Agency Comment Spec In Lab Yareli Morales MD CHEMISTRY ORDERABLES Performing Organization Address City/[facility]/ZIP Co de Phone Number [facility] [place] [address] documented in this encounter Visit Diagnoses Diagnosis Type 2 diabetes mellitus without complication, without long-term current use of insulin Misha's thyroiditis Chronic lymphocytic thyroiditis documented in this encounter Care Teams Duplicating Machine Servicer Relationship Specialty Start Date End Date Leonor Hendricks MD [address] [place] [address] PCP - General Family Medicine 11/27/16 documented as of this encounter
--- OUTSIDE RECORDS SUMMARY | 2024-02-04 01:25 | XMS_ITS | Encounter Summary ---
[place] [address] Care Team Providers Care Operater Name Role Phone Leonor Hendricks MD Primary Care Provider [phone] Encounter Details Date Type Department Care Team (Latest Contact Info) Description 10/09/2018 12:00 PM EDT Laboratory Appointment Lab [address] [place] [phone] Type 2 diabetes mellitus with hyperglycemia, without [...] Procedure Name Priority Date/Time Associated Diagnosis Comments T3, FREE STAT 10/09/2018 10:56 AM EDT Misha's thyroiditis TSH STAT 10/09/2018 10:56 AM EDT Misha's thyroiditis T4, FREE STAT 10/09/2018 10:56 AM EDT Misha's thyroiditis HEMOGLOBIN A1C STAT 10/09/2018 10:56 AM EDT Type 2 diabetes mellitus with hyperglycemia, without long-term current use of insulin GLUCOSE STAT 10/09/2018 10:56 AM EDT Type 2 diabetes mellitus with hyperglycemia, without long-term current use of insulin HEPATIC FUNCTION PANEL STAT 10/09/2018 10:56 AM EDT Type 2 diabetes mellitus with hyperglycemia, without long-term current use of insulin documented in this encounter Results * TSH (10/09/2018 10:56 AM EDT) Thyroid Stimulating Hormone 3.87 0.27 - 4.20 mcIU/mL [facility] Blood specimen (specimen) 10/09/2018 10:56 AM EDT 10/09/2018 10:59 AM EDT Narrative Resulting Agency Comment Spec In Lab Yareli Morales MD CHEMISTRY ORDERABLES [facility] [place] [address] * (ABNORMAL) Hemoglobin A1c (10/09/2018 10:56 AM EDT) Hemoglobin A1c 8.8(H) 4.3 - 5.6 % [facility] Comment: Reference Range: 4.3 - [...] Mellitus, Diabetes Care 2013; 36: Suppl. 1, W47-53 Estimated Average Glucose 205 mg/dL [facility] Comment: eAG equivalents for HbA1c [...] into estimated average glucose values. ??Diabetes Care 2008:31(8):3881-8157. Blood specimen (specimen) 10/09/2018 10:56 AM EDT 10/09/2018 10:59 AM EDT Narrative Resulting Agency Comment Spec In Lab Yareli Morales MD CHEMISTRY ORDERABLES Performing Organization Address [facility] [[email or web address]] de Phone Number [facility] [place] [address] * (ABNORMAL) T4, free (10/09/2018 10:56 AM EDT) Free T4 0.90(L) 0.93 - 1.70 ng/dL [facility] Blood specimen (specimen) 10/09/2018 10:56 AM EDT 10/09/2018 10:59 AM EDT Narrative Resulting Agency Comment Spec In Lab Yareli Morales MD CHEMISTRY ORDERABLES Performing Organization Address [facility] Co de Phone Number [facility] [place] [address] * T3, free (10/09/2018 10:56 AM EDT) Free T3 2.1 2.0 - 4.4 pg/mL [facility] Blood specimen (specimen) 10/09/2018 10:56 AM EDT 10/09/2018 10:59 AM EDT Narrative Resulting Agency Comment Spec In Lab Yareli Morales MD CHEMISTRY ORDERABLES Performing Organization Address [facility] Co de Phone Number [facility] [place] [address] * Glucose, random (10/09/2018 10:56 AM EDT) Glucose 116 65 - 199 mg/dL [facility] Comment:Diabetes: >=200 mg/d L plus symptoms Blood specimen (specimen) 10/09/2018 10:56 AM EDT 10/09/2018 10:59 AM EDT Narrative Resulting Agency Comment Spec In Lab Yareli Morales MD CHEMISTRY ORDERABLES Performing Organization Address [facility] Co de Phone Number [facility] [place] [address] * (ABNORMAL) Hepatic Function Panel (10/09/2018 10:56 AM EDT) Protein, Total 8.3(H) 6.1 - 8.0 gm/dL [facility] Albumin 4.5 3.2 - 5.2 gm/dL [facility] Aspartate Aminotransferase 24 0 - 30 unit/L [facility] Alanine Aminotransferase 41(H) 0 - 30 unit/L [facility] Alkaline Phosphatase 102 40 - 104 unit/L [facility] Bilirubin, Total 0.2 0.2 - 1.3 mg/dL [facility] Bilirubin, Direct 0.1 0.0 - 0.3 mg/dL [facility] Blood specimen (specimen) 10/09/2018 10:56 AM EDT 10/09/2018 10:59 AM EDT Narrative Resulting Agency Comment Spec In Lab Yareli Morales MD CHEMISTRY ORDERABLES [facility] [place] [place] [address] documented in this encounter Visit Diagnoses Diagnosis Type 2 diabetes mellitus with hyperglycemia, without long-term current use of insulin Misha's thyroiditis Chronic lymphocytic thyroiditis documented in this encounter Care Teams Operater Relationship Specialty Start Date End Date Leonor Hendricks MD [address] [place] [address] PCP - General Family Medicine 11/27/16 documented as of this encounter
--- OUTSIDE RECORDS SUMMARY | 2024-02-04 01:25 | XMS_ITS | Encounter Summary ---
[place] [address] Care Team Providers Care Disk Grinder Name Role Phone Leonor Hendricks MD Primary Care Provider [phone] Encounter Details Date Type Department Care Team (Late st Contact Info) Description 07/15/2018 Telephone [place] [phone] Katarzyna Webb Social History Tobacco Use Types Packs/Day Years [...] on filedocumented in this encounter Care Teams Disk Grinder Relationship Specialty Start Date End Date Leonor Hendricks MD [address] [place] [address] PCP - General Family Medicine 11/27/16 documented as of this encounter
--- OUTSIDE RECORDS SUMMARY | 2024-02-04 01:25 | XMS_ITS | Encounter Summary ---
Author Organization [facility] Address [facility] [place] [address] Care Team Providers Care Tax Processor Name Role Phone Leonor Hendricks MD Primary Care Provider [phone] Reason for Visit * Consultation (Routine) - Closed Specialty Diagnoses / Procedures Referred By Contac t Referred To Contact Sleep Center Diagnoses Snoring Procedures PRG POLYSOM 6+ YRS SLEEP W 4+ ADDL CAMMY Marci Tripp MD [facility] [place] [address] [facility] Sleep Medicine [address] [place] [address] Referral ID Status Reason Start Date Expiration Date V isits Requested Visits Authorized [id number] Closed Test Only 04/23/2017 07/26/2017 1 1 Encounter Details Date Type Department Care Team (Latest Contact Info) Description 07/25/2017 8:30 PM EST Procedure visit Sleep Center at [facility] [address] [place] [id number] Darnell Lea MD [facility] [place] [address] MAGDALENE (obstructive sleep apnea) Social History Tobacco Use Types Packs/Day Years [...] as of this encounter Progress Notes * Bessy Fowler MD - 07/25/2017 8:30 PM EST Severe MAGDALENE pretreatment. 5 cm adequate side NREM with CPAP. Occasional hypopneas supine REM at 6 and 7 cm. 8 cm adequate REM supine but some recurrent hypopneas later at 8 cm in NREM. Plan on auto 8-14 cm. Consider mask refit. KE in 6 weeks. I reviewed the polysomnography in its entirety. I have reviewed Venu's note and agree with thefindings and recommendations. BESSY FOWLER MD documented in this encounter Procedure Notes * Darnell Lea MD - 07/25/2017 8:30 PM EST Images from the original note were not included. REPORT OF SPLIT-NIGHT POLYSOMNOGRAM IDENTIFYING INFORMATION Jesika Sprague : 1970 REFERRING PHYSICIAN: Yareli Morales MD PRIMARY CARE PHYSICIAN: Leonor Hendricks MD History Of Present Illness: Jesika Sprague is a 46 y.o. female who presents for a polysomnogram. Prior HST at 195lbs was non-diagnostic; her current weight is 240lbs. Polysomnography: The patient's sleep was evaluated for one night at the [facility]. Sleep was monitored in accordance with recommended AASM guidelines. The recording also included oral/nasal airflow, chest and abdominal respiratory effort, nasal pressure, single channel EKG, intercostalEMG, bilateral tibialis EMG, and oxygen saturation (by pulse oximeter). Type of Positive Pressure Utilized: CPAP Comment: Per tech report, CPAP was tolerated well. Pretreatment: - Sleep/EEG: The patient had a 10.5 Hz posterior dominant rhythm when awake with eyes closed. Sleeponset latency was 42 minutes, with a total sleep time of 89.5 minutes. Sleep efficiency was 52.6%. Only NREM sleep was noted pretreatment. - Respiratory: Obstructive sleep apnea of a severe degree (AHI of 93.9) noted. [facility] AHI of 40.2 which includes only apneas and hypopneas with 4% desaturations noted. Minimum saturation asleep of 85%. Mean saturation asleep pretreatment was 95%. - EKG: Normal sinus rhythm with no ectopy. - EMG: PLM index of 0. However, prior to obtaining less fragmented sleep she frequently moved her legs and changed her body position four times. While sleeping, she frequently moved her legs following obstructive hypopnea events, but had no periodic leg movements otherwise. Treatment: - Sleep/EEG: NREM and REM sleep were noted. Sleep onset latency was 21.5 minutes, with a total sleep time of 265 minutes. Sleep efficiency was 84.9% with treatment. REM latency was 82 minutes, with atotal sleep time of 117 minutes in REM sleep; 68.5 minutes of REM was spent while supine, and 48.5 minutes of REM was spent while non-supine. - Respiratory: CPAP was titrated from a pressure of 5cm to 8cm. A pressure of 8 cm was demonstratedefficacious in REM sleep supine. Interfaces: Bravida XS/S (She trialed the Air Fit F20 S prior to her study, but this was not used during the sleep study.) - EKG: Normal sinus rhythm with no ectopy. - EMG: PLM index of 0. However, prior to obtaining less fragmented sleep she frequently moved her legs. While sleeping she had rare brief twitches of independent leg and hand flexion lasting less than 1 second not associated with any respiratory or cardiac events or any abnormal EEG correlates; since these movements were isolated and not part of clusters of events they were not scored as PLMs. While sleeping, she also frequently moved her legs following obstructive hypopnea events. - Study Conditions: Head of the bed: 0, with two pillows Supplemental oxygen: None Notable daily medications: Lexapro 20mg Qday and Lorazepam 1mg TID PRN for anxiety (unknown if she took the day of the study) Medications taken prior to study initiation: Trazodone 25mg - Subjective: The post sleep study questionnaire indicated the following: ...how did you sleep last night: Slightly worse ..how well rested and alert do you feel right now: Average Assessment: Ms. Jesika Sprague is a 46 y.o. female whose polysomnogram reveals obstructive sleep apnea. Nasal CPAP was introduced during the second portion of the night. She tolerated CPAP well and wasable to achieve supine REM sleep for 68.5 minutes while supine wearing the mask. While in NREM sleep a pressure of 5cm seemed to be effective, but once she achieved REM she required higher pressures to minimize respiratory events. Overall 8cm of water appears to be an effective CPAP pressure, but after a period of sustained REM she entered fragmented sleep and an increase in respiratory events, which suggests a higher pressure may be more beneficial overall. Notably, during her period of fragmen isatu sleep following her sustained REM, she had a significant increase in her mask leak for approximately 1 hour, which then returned to an appropriate leak level for the rest of the duration of the study. Based on the above, she will likely most benefit from Auto-CPAP with a pressure range of 8-14cm. The significance of her brief period of mask leak is not entirely clear, and in the future she may require a mask re-fittment, though overall she tolerated this mask quite well and for the majorityof the study she had an appropriate level of air leak. Recommendations: 1. Auto-CPAP with a pressure range of 8-14cm, using a Bravida (XS/S) mask, potentially with a need for mask re-fitment if leak is significant at home. 2. Return to the Sleep Clinic for a follow up appointment with NORAH in 6 weeks. Disposition: She was contacted by phone ([phone]) to discuss the study results, but was unavailable to talk; a message was left on her voicemailbox. The voice message described her study resultsand diagnosis of MAGDALENE, the concept of using AutoCPAP ranging from 8-14cm, the concept of minimum usefor insurance purposes (and to gain maximum benefits), her multiple options for selection of a homecare company (including [facility] in [facility] which is nearby her home, and [facility]), as well as a request for her to return to the clinic for a follow-up visit in 6 weeks with Fely. A CPAP has been prescribed, and follow up has been ordered. Darnell Lea MD PGY4, Neurology Resident Personal Pager #[phone] General Neurology #[phone] [facility] [place] [facility] REPORT of Split-Night Polysomnography Patient Name: Jesika Sprague Study Date: 07/25/2017 Age & Sex: 46 y.o. Female Height: 5'3 Date of : 1970 Weight: 240 lbs BMI: 42.5 Referring Provider: Recording Technologist: HERB LARRY Scoring Technologist: HERB CURRY Sleep Fellow: Sleep Specialist: BESSY FOWLER M.D. Scoring Technologist Comments: ECG: NSR Ectopy: NONE NOTED Description of Study: Diagnostic polysomnography was performed utilizing frontal, central & occipital EEG, EOG, submentalis EMG, oronasal thermocouple, nasal pressure, ECG, thoracic and abdominalinductance plethysmography, right and left anterior tibialis EMG, snore sensor, and pulse oximetry according to AASM established guidelines. Study Details & Sleep Architecture Diagnostic Start Time (Lights Off): 22:10:42 Total Recording Time: 170.0 min Diagnostic End Time (Lights On): 01:00:43 Total Sleep Time (minutes): 89.5 Total Num. of Stage Shifts: 55 Total Sleep Time (hrs:min): 1:29.5 Total Num. of Awakenings: 11 Sleep Onset Latency: 42.0 min Total Num. of Trans. to N1: 22 Sleep Efficiency: 52.6% Total Num. of REM Periods: 0 Stage Results: Time (minutes) %TST Latency (minutes) WASO: 38.5 - - N1: 29.0 32.4 0.0 N2: 45.0 50.3 30.5 N3: 15.5 17.3 112.5 REM: 0.0 0.0 - - (minus wake) Arousal Counts: NREM REM Total Spontaneous: 37 (24.8/hr) 0 (-/hr) 37 (24.8/hr) Sum of All Arousals: 146 (97.9/hr) 0 (-/hr) 146 (97.9/hr) Spontaneous arousals include only EEG arousals not associated with a respiratory event or PLM. Body Position: Supine Non-Supine Non-REM: 78.5 min 11.0 min REM: 0.0 min 0.0 min Total Sleep: 78.5 min (87.7%) 11.0 min (12.3%) Respiratory Events Apneas Obstructive Mixed Central Total Apneas Total Count: 0 0 0 0 Mean Duration (sec): 0 0 0 0 Longest Duration (sec): 0 0 0 - Index (REM/NREM): 0.0 / 0.0 0.0 / 0.0 0.0 / 0.0 0.0/ 0.0 Index (Sup./Non-Sup.): 0.0 / 0.0 0.0 / 0.0 0.0 / 0.0 0.0/ 0.0 Index (Total): 0.0 0.0 0.0 0.0 Hypopneas & RERAs Hypopnea Definitions: Hypopnea* CMS Hypopnea 3% desat hannah. Hypopneas All RERA Total Count: 60 80 198 0 Mean Duration (sec): 17.6 16.4 16 0 Longest Duration (sec): 30.2 49.3 49 0 Index (REM/NREM): - / 40.2 - / 92.5 0 / 132.7 - / 0.0 Index (Sup./Non-Sup.): 42.8 / 21.8 94.8 / 76.4 137.6 / 98.2 0.0 / 0.0 Index (Total): 40.2 53.6 132.7 0.0 *[facility]-defined hypopneas include only hypopneas with a >=4% oxygen desaturation. Includes hypopneas with an arousal or with a 3%-4% desaturation. [facility] Hypopneas not included. Periodic Breathing Total Sleep Time Time (minutes) 0.0 Time (%Sleep Time) 0.0 AHI: Includes all apneas & all hypopneas associated with an arousal or a ? 3% desaturation. Supine Non-Sup. REM NREM Total Count: 125 15 0 140 140 Index (events/hr): 95.5 81.8 0.0 93.9 AHI = 93.9 CMS AHI: Includes all apneas & only hypopneas associated with a ? 4% desaturation. Supine Non-Sup. REM NREM Total Count: 56 4 0 60 60 Index (events/hr): 42.8 21.8 0 40.2 CMS = 40.2 Obstructive AHI: Includes obstructive & mixed apneas as well as all hypopneas. Excludes centralapneas and RERAs. Supine Non-Sup. REM NREM Total Count: 125 15 0 140 140 Index (events/hr): 95.5 81.8 0.0 93.9 OAHI = 93.9 RDI: Includes all apneas, all hypopneas, all RERAs, and all ???Unsure??? events. Supine Non-Sup. REM NREM Total Count: 125 15 0.0 140.1 140 Index (events/hr): 95.5 81.8 0.0 93.9 RDI = 93.9 Oxygen Saturation Details SpO2 Awake NREM REM All Sleep SABAS Report Sleep Mean: 95% 95% -% 95% 3% SABAS 30.9 58.3 Minimum: - 85% -% 85% 4% SABAS 18.2 34.9 SpO2 Awake (minutes) NREM (minutes) REM (minutes) All Sleep (minutes) ?90% 0.1 1.0 0.0 1.0 ?89% 0.0 0.7 0.0 0.7 ?88% 0.0 0.3 0.0 0.3 90-99% 80.5 88.5 0.0 88.5 80-89.9% 0.0 0.7 0.0 0.7 79-79.9% 0.0 0.0 0.0 0.0 60-69.9% 0.0 0.0 0.0 0.0 50-59.9% 0.0 0.0 0.0 0.0 ?50% 0.0 0.0 0.0 0.0 Cardiac Details Heart Rate (bpm) Total Study NREM REM All Sleep Minimum - 72 - 72 Maximum 92 92 - 92 Mean - 81 0 81 Limb Movement Details Periodic Limb Movements Total PLMs (and Index) PLMs w/ Arousals (and Index) Wake (after ???Lights Off???): 0 (0.0/hr) 0 (0.0/hr) NREM: 0 (0.0/hr) 0 (0.0/hr) REM: 0 (0.0/hr) 0 (-/hr) Total Sleep: 0 (0.0/hr) 0 (0.0/hr) Therapeutic Analysis Study Details & Sleep Architecture (Therapeutic Portion) Diagnostic Start Time (Lights Off): 01:05:42 Total Recording Time: 312.0 min Diagnostic End Time (Lights On): 06:17:43 Total Sleep Time (minutes): 265.0 Total Num. of Stage Shifts: 54 Total Sleep Time (hrs:min): 4:25.0 Total Num. of Awakenings: 12 Sleep Onset Latency: 21.5 min Total Num. of Trans. to N1: 17 Sleep Efficiency: 84.9% Total Num. of REM Periods: 3 Stage Results: Time (minutes) %TST Latency (minutes) WASO: 25.5 - - N1: 22.5 8.5 0.0 N2: 91.5 34.5 19.0 N3: 34.0 12.8 48.5 REM: 117.0 44.2 82.0 67.0 (minus wake) Arousal Counts: NREM REM Total Spontaneous: 110 (44.6/hr) 34 (17.4/hr) 144 (32.6/hr) Sum of All Arousals: 135 (54.7/hr) 53 (27.2/hr) 188 (42.6/hr) Spontaneous arousals include only EEG arousals not associated with a respiratory event or PLM. Body Position: Supine Non-Supine Non-REM: 97.0 min 51.0 min REM: 68.5 min 48.5 min Total Sleep: 165.5 min (62.5%) 99.5 min (37.5%) Respiratory Events (Therapeutic Portion) Apneas Obstructive Mixed Central Total Apneas Total Count: 1 0 5 6 Mean Duration (sec): 10 0 12 11 Longest Duration (sec): 10.0 0 14.8 15 Index (REM/NREM): 0.5 / 0.0 0.0 / 0.0 0.0 / 2.0 0.5/ 2.0 Index (Sup./Non-Sup.): 0.0 / 0.6 0.0 / 0.0 0.4 / 2.4 0.4/ 3.0 Index (Total): 0.2 0.0 1.1 1.4 Hypopneas & RERAs Hypopnea Definitions: Hypopnea* CMS Hypopnea 3% desat hannah. Hypopneas All RERA Total Count: 7 51 63 0 Mean Duration (sec): 19.7 16.7 16 0 Longest Duration (sec): 26.4 34.8 35 0 Index (REM/NREM): 2.1 / 1.2 14.4 / 11.4 16.5 / 12.6 0.0 / 0.0 Index (Sup./Non-Sup.): 2.5 / 0.0 17.4 / 4.8 19.9 / 4.8 0.0 / 0.0 Index (Total): 1.6 11.5 14.2 0.0 *[facility]-defined hypopneas include only hypopneas with a >=4% oxygen desaturation. Includes hypopneas with an arousal or with a 3%-4% desaturation. [facility] Hypopneas not included. Periodic Breathing Total Sleep Time Time (minutes) 0.0 Time (%Sleep Time) 0.0 AHI: Includes all apneas & all hypopneas associated with an arousal or a ? 3% desaturation. Supine Non-Sup. REM NREM Total Count: 49 15 31 33 64 Index (events/hr): 17.8 9.0 15.9 13.4 AHI = 14.5 CMS AHI: Includes all apneas & only hypopneas associated with a ? 4% desaturation. Supine Non-Sup. REM NREM Total Count: 8 5 5 8 13 Index (events/hr): 2.9 3.0 2.6 3.2 CMS = 2.9 Obstructive AHI: Includes obstructive & mixed apneas as well as all hypopneas. Excludes centralapneas and RERAs. Supine Non-Sup. REM NREM Total Count: 48 11 31 28 59 Index (events/hr): 17.4 6.6 15.9 11.4 OAHI = 13.4 RDI: Includes all apneas, all hypopneas, all RERAs, and all ???Unsure??? events. Supine Non-Sup. REM NREM Total Count: 49 15 31.0 33.1 64 Index (events/hr): 17.8 9.0 15.9 13.4 RDI = 14.5 Oxygen Saturation Details (Therapeutic Portion) SpO2 Awake NREM REM All Sleep SABAS Report Sleep Mean: 96% 96% 96% 96% 3% SABAS 5.2 5.9 Minimum: - 89% 91% 89% 4% SABAS 2.3 2.5 SpO2 Awake (minutes) NREM (minutes) REM (minutes) All Sleep (minutes) ?90% 0.3 0.1 0.0 0.1 ?89% 0.1 0.0 0.0 0.0 ?88% 0.1 0.0 0.0 0.0 90-99% 46.7 147.9 117.0 264.9 80-89.9% 0.1 0.0 0.0 0.0 79-79.9% 0.0 0.0 0.0 0.0 60-69.9% 0.0 0.0 0.0 0.0 50-59.9% 0.0 0.0 0.0 0.0 ?50% 0.0 0.0 0.0 0.0 Cardiac Details (Therapeutic Portion) Heart Rate (bpm) Total Study NREM REM All Sleep Minimum - 72 72 72 Maximum 92 92 92 92 Mean - 79 84 81 Limb Movement Details (Therapeutic Portion) Periodic Limb Movements Total PLMs (and Index) PLMs w/ Arousals (and Index) Wake (after ???Lights Off???): 0 (0.0/hr) 0 (0.0/hr) NREM: 0 (0.0/hr) 0 (0.0/hr) REM: 0 (0.0/hr) 0 (0.0/hr) Total Sleep: 0 (0.0/hr) 0 (0.0/hr) Pressure Analysis Time (hh:mm:ss) IP/EP/O2 TST Supine Non-Sup. REM Non-REM REM Sup. 5/5/0 6/6/0 7/7/0 8/8/0 1:03:37.0 0:20:20.0 0:29:57.0 2:31:6.0 1:03:37.0 0:20:20.0 0:29:57.0 0:51:36.0 0:00:0.0 0:00:0.0 0:00:0.0 1:39:30.0 0:00:0.0 0:16:57.0 0:29:57.0 1:10:6.0 1:03:37.0 0:03:23.0 0:00:0.0 1:21:0.0 0:00:0.0 0:16:57.0 0:29:57.0 0:21:36.0 Respiratory Event Counts IP/EP/O2 Obstr. Ap. Mixed Ap. Central Ap. Hypopneas* RERAs 5/5/0 6/6/0 7/7/0 8/8/0 0 0 0 1 0 0 0 0 0 0 0 5 4 9 13 32 0 0 0 0 *Includes all types of hypopneas: those associated with arousals or ?3% desaturations. Respiratory Indices (events per hour) IP/EP/O2 OAI MICHAEL CONSTANCE HI* RDI 5/5/0 6/6/0 7/7/0 8/8/0 0.0 0.0 0.0 0.4 0.0 0.0 0.0 0.0 0.0 0.0 0.0 2.0 3.8 26.6 26.0 12.7 3.8 26.6 26.0 15.1 *Includes all types of hypopneas: those associated with arousals or ?3% desaturations. Respiratory Indices (events per hour) IP/EP/O2 AHI Supine Non-Sup. REM Non-REM 5/5/0 6/6/0 7/7/0 8/8/0 3.8 26.6 26.0 15.1 3.8 26.6 26.0 26.7 0 0 0 9.0 0.0 28.3 26.0 8.6 3.8 17.7 0.0 20.7 *Includes all types of hypopneas: those associated with arousals or ?3% desaturations. Oxygen Saturations IP/EP/O2 Minimum Mean 5/5/0 6/6/0 7/7/0 8/8/0 93 92 91 89 96 95 96 96 Graphs CPAP/Bi-Level PLMs Body Position documented in this encounter Plan of Treatment Not on file documented as of this encounter Visit Diagnoses Diagnosis MAGDALENE (obstructive sleep apnea) Obstructive sleep apnea (adult) (pediatric) documented in this encounter Care Teams Tax Processor Relationship Specialty Start Date End Date Leonor Hendricks MD [address] [place] [address] PCP - General Family Medicine 11/27/16 documented as of this encounter
--- OUTSIDE RECORDS SUMMARY | 2024-02-04 01:25 | XMS_ITS | Encounter Summary ---
Author Organization [facility] [place] [address] Care Team Providers Care Renal Nurse Name Role Phone Leonor Hendricks MD Primary Care Provider [phone] Encounter Details Date Type Department Care Team (Late st Contact Info) Description 02/25/2018 3:30 PM EDT Office [place] [id number] [facility] [address] Psoriasis; Psoriatic arthritis; High risk medication use Social History Tobacco Use Types Packs/Day Years [...] Sign Reading Time Taken Comments Blood Pressure 120/76 02/25/2018 3:10 PM EDT Pulse 103 02/25/2018 3:10 PM EDT Temperature 36.9 ??C (98.4 ??F) 02/25/2018 3:10 PM ED T Respiratory Rate - - Oxygen Saturation 99% 02/25/2018 3:10 PM EDT Inhaled Oxygen Concentration - - Weight 108.4 kg (239 lb) 02/25/2018 3:10 PM EDT Height 160 cm (5' 3) 02/25/2018 3:10 PM EDT Body Mass Index 42.34 02/25/2018 3:10 PM EDT documented in this encounter Progress Notes * Jacinta Browne, - 02/25/2018 3:30 PM EDT Previously on Stelara, Humira, Enbrel, cyclosporine, methotrexate, hydroxyurea, sulfasalazine, and Otezla, Cosentyx-stopped working taltz- 2 injections -allergic reaction, History of Present Illness: She notes cosetnyx worked really well for her for the skin and the joints, for a period of time, btut then she started having flares of her skin. She then transitioned to taltz and did 2 injections which caused a large local reaction But her skin cleared quickly. Then in December she transitioned ot trefyma, so far this is working well for her skin, has some mild diseasea on her ankles, r knee, and left hand. Joints feel well w/o swelling or am stiffness. Denies any cp/dyspnea/f/c/night sweats/n/v/d/constipation or diarrhea. No [...] next . She is also seeing a station usher who reports that her cortisol testing is off. The station usher felt aln on her neck during the exam and an US confirmed the ln and a CT neck was completed today. Since she has been off of therapy for her psoriasis it has been quite active on her hands, dorsum of her feet, knees and elbows. Her stripper soft plastic wants to start cosentyx but she wanted [...] in may No drugs Physical Examination: BP 120/76 Pulse (!) 103 Temp 36.9 ??C (98.4 ??F) (Oral) Ht 160 cm (5' 3) Wt 108.4 kg (239 lb) SpO2 99% BMI 42.34 kg/m2 See vitals from appointment in hematology oncology General: Alert and oriented. Well developed and nourished. The patient did not appear distressed oruncomfortable. The patient ambulated without difficulty or assistance. Eyes: PERRL. Extraocular muscles were intact. External [...] deformity as applicable) Hands: MCP???s: NML PIP???s: NML DIP???s: NML, full fist and claw Wrists: NML Elbows: NML Ankles: NML Feet: NML, neg mtp compression Nails: No nail pitting, onycholysis or periungual erythema noted. Neurologic: gait nl from all ext Skin: Psoriasis on the right hand over the dorsal surface several small spots, and over the achilles bl, mild, left elbow trace skin disease, trace r knee plaque Laboratory Data: Labs done outside by Dr Rea reviewed Studies: Impression/Recommendations : Jesika Ryan is a 47 y.o. female with a history of psoriasis and likely very mild psoriatic arthritis who has been on a number of therapies with good control of her joint disease, but ongoing skin disease. She is currently on guselkinumab which she is tolerating well, her skin is under improved control and her joints are dong great. Reviewed with her completing the pneumonia series and she will check with her pcp, also reviewed influenza vaccination and shingrix vaccination. We did discuss potentially adding inj mtx to her regimen if needed in the future and would discuss w Dr Richardson. Labs just completed with endo. Fu in 6 months sooner if she is not controlled Follow-up in 6 months sooner with any changes CC: Leonor Hendricks MD documented in this encounter Plan of Treatment Not on file documented as of this encounter Visit Diagnoses Diagnosis Psoriasis Other psoriasis Psoriatic arthritis Psoriatic arthropathy High risk medication use Encounter for long-term (current) use of other medications documented in this encounter Care Teams Renal Nurse Relationship Specialty Start Date End Date Leonor Hendricks MD [address] [place] [id number] PCP - General Family Medicine 11/27/16 documented as of this encounter
--- OUTSIDE RECORDS SUMMARY | 2024-02-04 01:25 | XMS_ITS | Encounter Summary ---
[place] [address] Care Team Providers Care Grapple Yarder Operator Name Role Phone Leonor Hendricks MD Primary Care Provider [phone] Encounter Details Date Type Department Care Team (Late st Contact Info) Description 07/31/2017 Telephone [facility] at [address] [place] [address] Subha Kulkarni, RN Social History Tobacco Use [...] on filedocumented in this encounter Care Teams Grapple Yarder Operator Relationship Specialty Start Date End Date Leonor Hendricks MD [address] [place] [address] PCP - General Family Medicine 11/27/16 documented as of this encounter
--- OUTSIDE RECORDS SUMMARY | 2024-02-04 01:26 | XMS_ITS | Encounter Summary ---
Author Organization [facility] [place] [address] Care Team Providers Care Chief Counsel Name Role Phone Leonor Hendricks MD Primary Care Provider [phone] Encounter Details Date Type Department Care Team (Late st Contact Info) Description 01/11/2017 Orders Only Sleep Center at [address] [place] [address] Marci Cintron MD [facility] [place] [address] Social History Tobacco Use Types Packs/Day Years [...] as of this encounter Progress Notes * Marci Cintron MD - 01/11/2017 12:37 PM EDT Polysomnogram Order Form Room # Technologist Assignment: To be read by on PSG Patient Information Date of study: : 1970 Name: Jesika Sprague Height: 63in Weight: 184# 46 y.o. female Normal sleep hours: 10-5:30 Arrival Time: Physical/Mobility Limitations: No Cognitive Limitations: No Requires Male Tech: No Requires Female Tech: No Requires 1:1 Care: No Requires Parent/Caregiver: Kamaili of Parent/Caregiver staying: Using Home Oxygen: No At home sleeps in: Bed PSG Indications: snoring, insomnia -- r/o MAGDALENE (recent non-diagnostic HSAT) Other Medical Conditions: anxiety PSG Orders Type of study: diagnostic PSG -- split for AHI>30 ( at least CMS AHI 10) Additional data required: no Special instructions: no *Initiate CPAP/BPAP/oxygen per previously determined protocols unless otherwise specified. documented in this encounter Plan of Treatment Not on file documented as of this encounter Visit Diagnoses Not on filedocumented in this encounter Care Teams Chief Counsel Relationship Specialty Start Date End Date Leonor Hendricks MD [address] [place] [address] PCP - General Family Medicine 11/27/16 documented as of this encounter
--- OUTSIDE RECORDS SUMMARY | 2024-02-04 01:26 | XMS_ITS | Encounter Summary ---
Author Organization [facility] [place] [address] Care Team Providers Care Tile Grinder Name Role Phone JourdanTristan DO Primary Care Provider Reason for Referral * Consultation (Routine) - Closed Specialty Diagnoses / Procedures Referred By Contac t Referred To Contact Rheumatology Diagnoses Polyarthralgia Yareli Morales MD [facility] [place] [address] [facility] Rheumatology [address] [place] [id number] Referral ID Status Reason Start Date Expiration Date V isits Requested Visits Authorized [id number] Closed Consult, Test & Treat 08/06/2016 08/06/2017 1 1 * Consultation (Routine) - Closed Specialty Diagnoses / Procedures Referred By Contac t Referred To Contact Gastroenterology Diagnoses Loose stools Yareli Morales MD [facility] [place] [address] [facility] Gastro [address] [place] [address] Referral ID Status Reason Start Date Expiration Date V isits Requested Visits Authorized [id number] Closed Consult, Test & Treat 08/06/2016 08/06/2017 1 1 Reason for Visit * Reason Comments Fatigue * Consultation (Routine) - Closed Specialty Diagnoses / Procedures Referred By Conthai t Referred To Contact Endocrinology Diagnoses Fatigue, unspecified type Tristan Soliman, [address] [place] [address] [facility] Endocrinology [address] [place] [address] Referral ID Status Reason Start Date Expiration Date V isits Requested Visits Authorized [id number] Closed Consult, Test & Treat [facility] 07/12/2016 07/12/2017 1 1 Encounter Details Date Type Department Care Team (Late st Contact Info) Description 08/06/2016 3:00 PM EST Office Visit [place] [address] Yareli Morales MD [facility] [place] [address] Hirsutism; Chronic fatigue; Galactorrhea; Tremulousness; Vitamin D deficiency; Transaminitis; Elevated ferritin level; Loose stools; Polyarthralgia Social History Tobacco Use Types Packs/Day Years [...] Sign Reading Time Taken Comments Blood Pressure 119/82 08/06/2016 2:49 PM EST Pulse 65 08/06/2016 2:49 PM EST Temperature - - Respiratory Rate - - Oxygen Saturation - - Inhaled Oxygen Concentration - - Weight 88.9 kg (196 lb) 08/06/2016 2:49 PM EST Height 160 cm (5' 3) 08/06/2016 2:49 PM EST Body Mass Index 34.72 08/06/2016 2:49 PM EST documented in this encounter Progress Notes * Yareli Morales MD - 08/06/2016 3:00 PM EST Endocrinology New Patient Consultation [facility]: Referred to Endocrinology by Tristan Soliman for further evaluation of possible endocrine contributors to fatigue and anxiety. HISTORY OF PRESENT ILLNESS: Ms. Jesika Sprague is a 45 y.o. year old lady with history significant for psoriasis, anxiety, and depression, who was referred to us for further evaluation of fatigue and anxiety which the patient is concerned might be organic in nature. She recently had fairly extensive biochemical evaluations in May 2016 which included some relevant endocrine & other fatigue workup, shown below. Her PCP also had her discontinue her SSRI Prozac about 1 month ago, on 07/11/16, in favor of quetiapine, in case her anxious symptoms might be serotonin-induced. She was lined up to see a psychiatrist just a couple days ago as well. Quetiapine kn ocked her out, so she only took 2 doses and went on sertraline instead, about 2 weeks ago. I'm a mess, i just dont feel like myself. She describes 2 episodes, waking up all out of sorts, shaky nausous. Episode in October lasted 7 weeks. Then recurred May 17, the night before had severe insomnia, then the next morning, has been tremulous, cant eat, lost 32 lbs since May 2016. Feels like some switch goes on. Feels wired but tired. Continues to feel this way, if i dont take the medicine they gave me - referring to lorazepam and propranolol. Even with having taken those, she has some shaking and no appetite, brain fog, feels disconnected. Blurry vision. She feels these symptoms are different from her chronic anxiety symptoms, and the anxiety meds aren't completely helping. Of note she mentions onset of significant bouts of loose stools since October 2015. Would get bouts of nausea, followed by abdominal cramps, and followed by profuse diarrhea. Menses irregular - have been 1 week late or 1 week early, a lot heavier, lot of clots, lasting shorter. Hirsutism worsenng over the past 2 years. on face, underside of chin, down neck, to clavicles, upper lip, breasts around areola, back, forearms (shaves), upper back. LMP currently having it. Stopped her estrace about 28 days ago for purposes of endocrine testing today. +galactorrhea from R breast - noticed it once, was malodorous, slightly bloody. Hasn't recurred to her knowledge. No peripheral vision issues. No hair loss. Had been getting treated with Stelara for psoriasis, last dose was in October 2015 - is held due to hersymptoms until we figure out what's going on. Psoriasis on hands has been getting worse off of treatment. Even on treatment, the psoriasis breaks through and starts flaring after 2 months of the [id number] dosing. Having frequent UTI's especially wyatt-menstrually. She had an ACTH stim test as well, per PCP's note 1 month ago - baseline cortisol 14, 60 min cortisol 41. +joint pain - elbows, knees, ankles. Was having waves of heat a few months ago, but now tends to feel cold all the time. Would turn flushed but only if she got too hot. Feels tremulous as soon as she gets up, an Internal shakiness, like shivering. Dissipates after taking her propranolol & lorazepam - the only 2 meds she takes in AM. Quit smoking and caffeine in early May 2016 - was smoking e-cigarrettes x 1.5 yrs, and regularcigs x 20 years before that. Also would drink Pepsi all day before she quit. Component Latest Ref Rng & Units 05/23/2016 05/21/2016 Estimated GFR >=60 >60 Total Protein 6.1 - 8.0 gm/dL 8.1 (H) Albumin 3.2 - 5.2 gm/dL 4.8 AST 0 - 30 unit/L 43 (H) ALT 0 - 30 unit/L 52 (H) Alk Phos 40 - 104 unit/L 103 Total Bilirubin 0.2 - 1.3 mg/dL 0.4 Bili, Direct 0.0 - 0.3 mg/dL 0.1 Iron 30 - 150 mcg/dL 75 TIBC 250 - 450 mcg/dL 290 Iron Saturation 20 - 50 % 26 Hours Collected hour(s) 24 Urine TV (ml) mL 1500 TSH 0.27 - 4.20 mcIU/mL 2.23 2.79 25-OH Vit D Total 30 - 100 ng/mL 22 (L) DHEAS 60.9 - 337.0 mcg/dL 165.9 Free T4 0.93 - 1.70 ng/dL 1.29 T3, Free 2.0 - 4.4 pg/mL 2.6 Sed Rate 0 - 20 mm/hr 10 Folate Lvl 4.8 - 24.2 ng/mL 12.0 Vitamin B-12 207 - 974 pg/mL 550 Ferritin 15 - 150 ng/mL 430 (H) FSH mlU/ML 5.1 LH mlU/ML 8.0 Magnesium 0.69 - 1.07 mmol/L 0.85 Phosphorus 2.5 - 4.5 mg/dL 3.8 PAST MEDICAL HISTORY: Patient Active Problem List Diagnosis Date Noted ??? Psoriasis 03/12/2011 MEDICATIONS: Medications 08/06/16 1506 Medication Sig Taking? clonazePAM (KLONOPIN) 0.5 mg Tablet Take 0.5 mg by mouth 3 times daily. Yes estradiol (ESTRACE) 1 mg Tablet TAKE 1 TABLET BY MOUTH DAILY FOR 10 DAYS STARTING 2 TO 3 DAYS BEFORE PERIOD Yes LORazepam (ATIVAN) 1 mg Tablet Take 1 mg by mouth 3 times daily as needed. Yes propranolol (INDERAL) 80 mg Tablet Take 80 mg by mouth daily. Yes sertraline (ZOLOFT) 50 mg Tablet Take 50 mg by mouth daily. Yes cholecalciferol, Vitamin D3, 1,000 unit Tablet Take 2 tablets by mouth daily. Yes traZODone (DESYREL) 50 mg Tablet Take 2 tablets by mouth nightly as needed for Sleep. Patient not taking: Reported on 08/06/2016 pravastatin (PRAVACHOL) 40 mg Tablet Reported on 08/06/2016 fluocinolone (DERMA-SMOOTHE) 0.01 % external oil 1 Appl(s), Top, as directed Patient not taking: No sig reported ALLERGIES: Allergies Allergen Reactions ??? Stelara [Ustekinumab] Anxiety SOCIAL HISTORY: History Smoking Status ??? Former Smoker ??? Types: Cigarettes ??? Quit date: 03/21/2015 Smokeless Tobacco ??? Never Used FAMILY HISTORY: brother and sister both take thyroid medicine. REVIEW OF SYSTEMS: All 12 systems reviewed and negative except as noted per HPI. PHYSICAL EXAM: Vitals Office Visit from 08/06/2016 in Endocrinology Weight - Scale 88.9 kg (196 lb) Height 160 cm (5' 3) BSA (Calculated - sq m) 1.99 sq meters BMI (Calculated) 34.8 Heart Rate 65 BP 119/82 Gen: NAD, AAOx3, speaking full sentences, very pleasant demeanor, mildly obese habitus Skin: no acanthosis nigricans, no rashes, no bruising, no purple striae, no hyperpigmentation, scaling erythematous areas over both hands Eyes: PERRL, EOMI, anicteric sclerae without injection, no proptosis or lid lag ENT: moist oral mucosa Neck: no thyromegaly, no palpable thyroid nodules, no lymphadenopathy Pulm: CTAB, no stridor Cardiac: reg s1s2, no m/r/g MSK: 5/5 strength in all muscle groups of the upper and lower extremities Neuro: 1+ biceps and patellar DTRs, no clonus, no delay of the relaxation phase, no tremor. ASSESSMENT: 45 yo F with hx anxiety active moderate-severe psoriasis, and FH of probable autoimmunethyroid disease in her siblings, who has been having multiple nonspecific symptoms since about 8-9 months ago. While some of her symptoms may be attributable to her chronic anxiety to some degree, I feel additional evaluation of possible underlying coexisting autoimmune phenomena is warranted (manyof which can present insidiously and be difficult to diagnose), particularly considering her already known autoimmune disease (psoriasis). In particular, considering her bouts of abdominal cramps followed by profuse diarrhea, I would like to screen for celiac disease with an antibody screen and also refer to GI for more definitive evaluation. I would also like her to undergo a comprehensive rheumatologic evaluation, so I will make that referral as well. Other gastrointestinal autoimmune conditions also exist which may need to be considered, among other connective tissue diseases. Also, her hirsutism and episode of possible galactorrhea would suggest need for further endocrine workup - I will check androgen levels and her HPG axis regarding the former, and prolactin level regarding the latter. Because a pheochromocytoma can manifest with anxiety, I will also check plasma meta nephrines. Will screen for diabetes with an A1c. She reports she has been fasting for about 8 hourstoday (she had coffee + cream around 7-8AM, and it is now ~2pm), so I will include a fasting glucose & lipid panel, but it may not be a purely fasting level. Will check a direct LDL just in case as well. Regarding her episodic flushing & loose stools, carcinoid could be a consideration. Pily valentin, since she is currently on sertraline, we cannot screen a 24hr urine 5-HIAA level at the present time. She seems to be deriving some benefit from the sertraline symptomatically and it has not worsened her symptoms, so I do not feel strongly about having her discontinue it at this time, but if today's outline evaluation is unrevealing we may need to pursue this avenue. In recent labs checked by PCP, I incidentally noted a high ferritin level - while ferritin can be an acute phase reactant and simply representing chronic inflammation, the level is significantly elevated, so I will recommend in her GI referral additionally to further evaluate regarding the possibility of hemochromatosis, which can affect multiple organ systems. PLAN: --testosterone, androstenedione levels --FSH, LH, estradiol. --Prolactin re: galactorrhea. --plasma metanephrines & catecholamines --recheck 25-OH-D level - had increased vit D to 2000 unit sdaily about 1 month ago. --celiac antibodies --A1c --fasting lipids and plasma glucose --referral to GI re: ?hemochromatosis --TSH, free T4, total T3, TPO and Tg ab - due to family history and underlying autoimmunity --will decide on whether to test for 5HIAA once above testing results - if unrevealing, would need to come off of sertraline. Orders Placed This Encounter Procedures ??? Testosterone, total and free ??? Androstenedione ??? TSH ??? T4, free ??? T3 Total ??? Thyroid peroxidase antibody ??? Thyroglobulin Antibody ??? Follicle Stimulating Hormone ??? Luteinizing Hormone ??? Estradiol ??? Prolactin ??? Metanephrines, Fractionated Free, plasma ??? Vitamin D, 25-Hydroxy ??? LDL Cholesterol, Direct ??? Lipid Panel ??? Hemoglobin A1c ??? Glucose, fasting ??? Tissue transglutaminase, IgA ??? Gliadin (Deamidated) Antibodies ??? Referral to Gastroenterology ??? Referral to Rheumatology YARELI MORALES MD Security Associateshopping investigator Section of Endocrinology [facility] documented in this encounter Plan of Treatment Scheduled Referrals Name Type Priority Associated Diagnoses Order Schedule Referral to Gastroenterology Outpatient Referral Routine Loose stools Ordered: 08/06/2016 Referral to Rheumatology Outpatient Referral Routine Polyarthralgia Ordered: 08/06/2016 documented as of this encounter Procedures Procedure Name Priority Date/Time Associated Diagnosis Comments LIPID PANEL (REFLEX DIRECT LDL) Routine 08/13/2016 Transaminitis THYROGLOBULIN ANTIBODY Routine 7 5:00 PM EST Chronic fatigue METANEPHRINES, FRACTIONATED FREE, PLASMA Routine 08/06/2016 5:00 PM EST Tremulousness TESTOSTERONE, TOTAL AND FREE Routine 08/06/2016 5:00 PM EST Hirsutism THYROID PEROXIDASE ANTIBODY Routine 08/06/2016 5:00 PM EST Chronic fatigue GLIADIN ANTIBODIES Routine 08/06/2016 5: 00 PM EST Loose stools TISSUE TRANSGLUTAMINASE, IGA Routine 08/06/2016 5:00 PM EST Loose stools VITAMIN D, 25-HYDROXY Routine 08/06/2016 5:00 PM EST Vitamin D deficiency PROLACTIN Routine 08/06/2016 5:00 PM EST Galactorrhea ESTRADIOL Routine 08/06/2016 5:00 PM EST Hirsutism ANDROSTENEDIONE Routine 08/06/2016 5:00 PM EST Hirsutism T3 TOTAL Routine 08/06/2016 5:00 PM EST Chronic fatigue TSH Routine 08/06/2016 5:00 PM EST Chronic fatigue T4, FREE Routine 08/06/2016 5:00 PM EST Chronic fatigue LDL CHOLESTEROL, DIRECT Routine 08/06/19 17 5:00 PM EST Transaminitis HEMOGLOBIN A1C Routine 08/06/2016 5:00 PM EST Transaminitis Elevated ferritin level LUTEINIZING HORMONE Routine 08/06/2016 5 :00 PM EST Hirsutism FOLLICLE STIMULATING HORMONE Routine 08/06/2016 5:00 PM EST Hirsutism documented in this encounter Results * (ABNORMAL) Lipid Panel (08/13/2016) Cholesterol, Total 193(Exter nal Lab) mg/dL Triglyceride 180(EXTER NAL/ABN) mg/dL HDL Cholesterol 34(TEXTILES PRINTER AL/ABN) mg/dL Glucose 108(EXTER NAL/ABN) Blood specimen (specimen) 08/13/2016 Yareli Morales MD CHEMISTRY ORDERABLES * (ABNORMAL) Gliadin (Deamidated) Antibodies (08/06/2016 5:00 PM EST) Pathologist [facility] Gliadin IgG Deamidated (MAY) <10.0 <20.0 (Negative ) [facility] Comment: Test Performed by: [facility] [place] [address] Terrazzo Polisher: Jamir Chino II, M.D., Ph.D. Gliadin IgA Deamidated (OCTOBER) 33.9(H) <20.0 (Negative ) [facility] Comment: Interpretation: Positive (>30.0) Test Performed by: [place] [address] [employer]razzo Polisher: Jamir Chino II, M.D., Ph.D. Blood specimen (specimen) 08/06/2016 5:00 PM EST 08/06/2016 5:53 PM EST Narrative Resulting Agency Comment Spec In Lab Yareli Morales MD LAB SEND OUT ORDERAB LES [facility] [place] [address] * Tissue transglutaminase, IgA (08/06/2016 5:00 PM EST) Pathologist [facility] TTG IgA Ab 1.2 0.1 - 10.0 u/ml [facility] Comment: Negative = <7 U/mL Equivocal = 7-10 U/mL Positive = >10 U/mL Blood specimen (specimen) 08/06/2016 5:00 PM EST 08/07/2016 8:09 AM EST Narrative Resulting Agency Comment Spec In Lab Yareli Morales MD IMMUNOLOGY ORDERABLE S [facility] [place] [address] * Hemoglobin A1c (08/06/2016 5:00 PM EST) [facility] Hemoglobin A1c 5.4 4.3 - 5.6 % [facility] Comment: Reference Range: 4.3 - 5.6% 5.7 - 6.4% - Increased Risk of Developing Diabetes Mellitus >=6.5% - Consistent with diagnosis of Diabetes Mellitus In the absence of hyperglycemia (i.e. plasma glucose > 200 mg/dL) or classic symptoms of hyperglycemia a repeat measurement of HbA1c should be performed on a separate sample to confirm the diagnosis. Diagnosis and Classification of Diabetes Mellitus, Diabetes Care 2013; 36: Suppl. 1, S67-18 Estimated Average Glucose 108 mg/dL [facility] Comment: eAG equivalents for HbA1c percentages: HbA1c(%) ?eAG(mg/dL) 6.0 ?126 6.5 ?140 7.0 ?154 7.5 ?169 8.0 ?183 8.5 ?197 9.0 ?212 9.5 ?226 10.0 ? 240 Limitations: The eAG calculation has not been validated on women, individuals below 18 years old and above 70 years old, and individuals with hemoglobinopathies. Additional resources are available on the ADA website: http://[employer]/DHMCadacalc Grayson TAYLOR, Suresh J, Brianna R, et al. ??Translating the A1C assay into estimated average glucose values. ??Diabetes Care 2008:31(8):1641-5794. Blood specimen (specimen) 08/06/2016 5:00 PM EST 08/06/2016 5:03 PM EST Narrative Resulting Agency Comment Spec In Lab Yareli Morales MD CHEMISTRY ORDERABLES Performing Organization Address [facility] Co de Phone Number [facility] [place] [address] * LDL Cholesterol, Direct (08/06/2016 5:00 PM EST) LDL Cholesterol, Direct 132 <=190 mg/dL [facility] Blood specimen (specimen) 08/06/2016 5:00 PM EST 08/06/2016 5:03 PM EST Narrative Resulting Agency Comment Spec In Lab Yareli Morales MD CHEMISTRY ORDERABLES Performing Organization Address [facility] de Phone Number [facility] [place] [place] [address] * Vitamin D, 25-Hydroxy (08/06/2016 5:00 PM EST) Vitamin D Total 25 OH 34 30 - 100 ng/mL [facility] Comment: Deficient <10 ng/mL Insufficient 10 to 29 ng/mL Sufficient 30 to 100 ng/mL Potential Intoxication >100 ng/mL According to the US National Osteoporosis Foundation, Vitamin D concentrations >30 ng/mL are sufficient to protect bone health. ??The National Kidney Foundation has similarly stated that patients with Vitamin D concentrations <30ng/mL should be considered to be insufficient or deficient. http://[employer]/DHMCnatlkidneyfoundation http://[employer]/DHVitD The [employer] i[employer] Vitamin D Immunoassay detects both 25-OH Vitamin D2 and 25-OH Vitamin D3, but only a total Vitamin D concentration is reported. Blood specimen (specimen) 08/06/2016 5:00 PM EST 08/07/2016 8:24 AM EST Narrative Resulting Agency Comment Spec In Lab Yareli Morales MD CHEMISTRY ORDERABLES [facility] [place] [place] [address] * Metanephrines, Fractionated Free, plasma (08/06/2016 5:00 PM EST) Normetanephrine, Free (OCTOBER) 0.24 <0.90 nmol/L [facility] Comment: Test Performed by: [facility] [place] [address] Terrazzo Polisher: Jamir Chino II, M.D., Ph.D. Metanephrine, Free (OCTOBER) <0.20 <0.50 nmol/L [facility] Comment: ADDITIONAL INFORMATION This test was developed and its performance characteristics determined by [facility] in a manner consistent with CLIA requirements. This test has not been cleared or approved by the U.S. Food and Drug Administration. Test Performed by: [facility] [place] [address] Terrazzo Polisher: Jamir Chino II, M.D., Ph.D. Blood specimen (specimen) 08/06/2016 5:00 PM EST 08/07/2016 8:57 AM EST Narrative Resulting Agency Comment Spec In Lab Yareli Morales MD LAB SEND OUT ORDERAB LES Performing Organization Address City/[facility]/ZIP Co de Phone Number [facility] [place] [address] * Prolactin (08/06/2016 5:00 PM EST) Prolactin 17.0 4.8 - 23.3 ng/mL [facility] Blood specimen (specimen) 08/06/2016 5:00 PM EST 08/06/2016 5:03 PM EST Narrative Resulting Agency Comment Spec In Lab Yareli Morales MD CHEMISTRY ORDERABLES Performing Organization Address [facility] Co de Phone Number [facility] [place] [address] * Estradiol (08/06/2016 5:00 PM EST) Estradiol 61 pg/mL [facility] Comment: Reference ranges: Males: ??Adult: ? 26 to 61 pg/mL Females: Non- females: ?Follicular: ??12-233 pg/mL ?Ovulation: ?? 41-398 pg/mL ?Luteal: ?22-341 pg/mL ?Postmenopausal: ?? <5 -138 pg/mL females: ?1st trimester: ??154-3243 pg/mL ?2nd trimester: ??1561-41475 pg/mL ?3rd trimester: ??8525- >13716 pg/mL Blood specimen (specimen) 08/06/2016 5:00 PM EST 08/06/2016 5:03 PM EST Narrative Resulting Agency Comment Spec In Lab Yareli Morales MD CHEMISTRY ORDERABLES Performing Organization Address City/[facility]/ZIP Co de Phone Number [facility] [place] [address] * Luteinizing Hormone (08/06/2016 5:00 PM EST) Luteinizing Hormone 5.9 mlU/ML [facility] Comment: Reference ranges: ?? Females ?? Follicular: ? 2.4-12.6 mIU/mL ?? Ovulation: ?14.0-95.6 mIU/mL ?? Luteal: ? 1.0-11.4 mIU/mL ?? Postmenopausal: ? 7.7-58.5 mIU/mL Blood specimen (specimen) 08/06/2016 5:00 PM EST 08/06/2016 5:03 PM EST Narrative Resulting Agency Comment Spec In Lab Yareli Morales MD CHEMISTRY ORDERABLES Performing Organization Address [facility]/ZIP Co de Phone Number [facility] [place] [address] * Follicle Stimulating Hormone (08/06/2016 5:00 PM EST) Follicle Stimulating Hormone 5.8 mlU/ML [facility] Comment: Reference Ranges: Females: Follicular: ? 3.5-12.5 mIU/mL Ovulation: ?4.7-21.5 mIU/mL Luteal: ? 1.7-7.7 mIU/mL Postmenopausal: 25.8-134.8 mIU/mL Blood specimen (specimen) 08/06/2016 5:00 PM EST 08/06/2016 5:03 PM EST Narrative Resulting Agency Comment Spec In Lab Yareli Morales MD CHEMISTRY ORDERABLES Performing Organization Address [facility] Co de Phone Number [facility] [place] [address] * (ABNORMAL) Thyroglobulin Antibody (08/06/2016 5:00 PM EST) Thyroglob Ab 43.7(H) 0.0 - 40.0 IU/mL [facility] Comment: Assay performed is the DPC Immulite Tg-Ab immunometric assay. (Cutoff for TgAb negativity is <20 IU/ml) Blood specimen (specimen) 08/06/2016 5:00 PM EST 08/07/2016 8:09 AM EST Narrative Resulting Agency Comment Spec In Lab Yareli Morales MD LAB SEND OUT ORDERAB LES Performing Organization Address [facility] Co de Phone Number [facility] [place] [address] * Thyroid peroxidase antibody (08/06/2016 5:00 PM EST) Thyroperoxidase Ab <10 <=34 IU/mL [facility] Blood specimen (specimen) 08/06/2016 5:00 PM EST 08/07/2016 8:09 AM EST Narrative Resulting Agency Comment Spec In Lab Yareli Morales MD IMMUNOLOGY ORDERABLE S Performing Organization Address [facility] de Phone Number [facility] [place] [address] * (ABNORMAL) T3 Total (08/06/2016 5:00 PM EST) T3 Total 67(L) 75 - 170 ng/dL [facility] Blood specimen (specimen) 08/06/2016 5:00 PM EST 08/06/2016 5:03 PM EST Narrative Resulting Agency Comment Spec In Lab Yareli Morales MD CHEMISTRY ORDERABLES Performing Organization Address [facility] Phone Number [facility] [place] [address] * T4, free (08/06/2016 5:00 PM EST) Free T4 1.11 0.93 - 1.70 ng/dL [facility] Blood specimen (specimen) 08/06/2016 5:00 PM EST 08/06/2016 5:03 PM EST Narrative Resulting Agency Comment Spec In Lab Yareli Morales MD CHEMISTRY ORDERABLES Performing Organization Address [facility] Center/[facility] Co de Phone Number [facility] [place] [address] * TSH (08/06/2016 5:00 PM EST) Thyroid Stimulating Hormone 2.44 0.27 - 4.20 mcIU/mL [facility] Blood specimen (specimen) 08/06/2016 5:00 PM EST 08/06/2016 5:03 PM EST Narrative Resulting Agency Comment Spec In Lab Yareli Morales MD CHEMISTRY ORDERABLES Performing Organization Address [facility] de Phone Number [facility] [place] [address] * Androstenedione (08/06/2016 5:00 PM EST) Androstenedione (OCTOBER) 114 30 - 200 ng/dL [facility] Comment: ADDITIONAL INFORMATION This test was developed and its performance characteristics determined by [facility] in a manner consistent with CLIA requirements. This test has not been cleared or approved by the U.S. Food and Drug Administration. Test Performed by: [facility] - [address] [address] Terrazzo Polisher: Jamir Chino II, M.D., Ph.D. Blood specimen (specimen) 08/06/2016 5:00 PM EST 08/06/2016 5:53 PM EST Narrative Resulting Agency Comment Spec In Lab Yareli Morales MD LAB SEND OUT ORDERAB LES Performing Organization Address [facility] Co de Phone Number [facility] [place] [address] * Testosterone, total and free (08/06/2016 5:00 PM EST) Testo Total 32 2 - 45 ng/dL [facility] Comment: For more information on this test, go to http://education.[employer]/faq/ TotalTestosteroneLCMSMS Testo Free (OCTOBER) 2.9 0.1 - 6.4 pg/mL [facility] Comment: Test Performed by [facility] [employer], [facility], [address] [place] [address] Kevan Selby M.D., Ph.D., Director of Laboratories , [facility] [id number] Blood specimen (specimen) 08/06/2016 5:00 PM EST 08/07/2016 8:55 AM EST Narrative Resulting Agency Comment Spec In Lab Yareli Morales MD LAB SEND OUT ORDERAB LES [facility] [place] [id number] documented in this encounter Visit Diagnoses Diagnosis Hirsutism Chronic fatigue Other malaise and fatigue Galactorrhea Galactorrhea not associated with childbirth Tremulousness Abnormal involuntary movements Vitamin D deficiency Unspecified vitamin D deficiency Transaminitis Nonspecific elevation of levels of transaminase or lactic acid dehydrogenase (LDH) Elevated ferritin level Other abnormal blood chemistry Loose stools Abnormal feces Polyarthralgia Pain in joint, multiple sites documented in this encounter Care Teams Tile Grinder Relationship Specialty Start Date End Date Tristan Soliman DO [address] [place] [address] PCP - General 05/09/10 11/26/16 documented as of this encounter
--- OUTSIDE RECORDS SUMMARY | 2024-02-04 01:26 | XMS_ITS | Encounter Summary ---
Author Organization [facility] [place] [address] Care Team Providers Care Tubular Products Fabricator Name Role Phone Tristan Soliman DO Primary Care Provider Encounter Details Date Type Department Care Team (Late st Contact Info) Description 11/05/2016 Notes Only Sleep Center at [facility] [address] [place] [address] Ashleigh Jamil Social History Tobacco Use Types Packs/Day Years [...] as of this encounter Progress Notes * Teena Jamil LNA - 11/05/2016 2:10 PM EDT Pt called to schedule consult. Referral was closed so I scheduled it intending to go back and open it again. After looking at it, I realized it was intended for Sleep Center [facility]. I called the referring provider and left a message for her nurse to ask if this was intentional or if the referral should have been sent here and if so, if it could be changed. I am leaving the appt I scheduledfor this pt until I hear otherwise. documented in this encounter Plan of Treatment Not on file documented as of this encounter Visit Diagnoses Not on filedocumented in this encounter Care Teams Tubular Products Fabricator Relationship Specialty Start Date End Date Tristan Soliman DO [address] [place] [address] PCP - General 05/09/10 11/26/16 documented as of this encounter
--- OUTSIDE RECORDS SUMMARY | 2024-02-04 01:26 | XMS_ITS | Encounter Summary ---
Author Organization [facility] [place] [address] Care Team Providers Care Personal Care Aid Name Role Phone Tristan Soliman DO Primary Care Provider Reason for Referral * Consultation (Routine) - Specialty Diagnoses / Procedures Referred By Conthai t Referred To Contact Sleep Center Diagnoses Sleep concern Yareli Morales MD [facility] [place] [address] [facility] Sleep Medicine [address] [place] [address] Referral ID Status Reason Start Date Expiration Date V isits Requested Visits Authorized [id number] Consult, Test & Treat 10/19/2016 10/19/2017 1 1 Encounter Details Date Type Department Care Team (Late st Contact Info) Description 10/19/2016 2:30 PM EDT Office [place] [address] Yareli Morales MD [facility] [place] [address] Sleep concern Social History Tobacco Use Types Packs/Day Years [...] Reading Time Taken Comments Blood Pressure 120/80 10/19/2016 2:47 PM EDT Pulse 78 10/19/2016 2:47 PM EDT Temperature - - Respiratory Rate - - Oxygen Saturation - - Inhaled Oxygen Concentration - - Weight 84.8 kg (187 lb) 10/19/2016 2:47 PM EDT Height 160 cm (5' 3) 10/19/2016 2:47 PM EDT Body Mass Index 33.13 10/19/2016 2:47 PM EDT documented in this encounter Progress Notes * Yareli Morales MD - 10/19/2016 2:30 PM EDT Endocrinology Clinic Follow-up Visit Reason for Visit: fatigue, weight gain HISTORY OF PRESENT ILLNESS: Ms. Jesika Sprague is a 45 y.o. year old lady with history significant for psoriasis whom i evaluatedfor initial visit in Jul 2016 for multiple nonspecific symptoms including fatigue, weight gain, palpitations, hair shedding, hot flashes, whom I saw for consultation of possible endocrine contributors to her symptoms on 08/06/16. An extensive endocrinologic evaluation from that visit was unrevealing. She presents today to discuss some recent testing performed by her fighter pilot, because the reports seem to suggest an endocrine issue. 24 hour urine collection (09/14/16) - patient describes this as felt-based, and done over a ~12 hourperiod, not a typical 24h urine collection Within this urine collection the following was measured - urine free cortisol - 175 mcg (ref ULN 185). The report also noted an elevated cortisone level, which she is concerned about. Urine estrogens + various estrogen metabolites - a few of these were elevated. She wonders about this as well. She is frustrated because she wakes up at 4am every morning wired and is unable to go back to sleep. That wired feeling persists for a good part of the morning. She then feels wiped out in the afternoon and evening. PAST MEDICAL HISTORY: Patient Active Problem List Diagnosis Date Noted ??? Psoriasis 03/12/2011 MEDICATIONS: Medications 10/19/16 1502 Medication Sig Taking? levonorgestrel-ethinyl estradiol (AVIANE;ALESSE;LESSINA) 0.1-20 mg-mcg Tablet Take 1 tablet by mouth daily. Yes sertraline (ZOLOFT) 100 mg Tablet Take 100 mg by mouth daily. Yes propranolol (INDERAL) 20 mg Tablet 2 times daily. Yes cholecalciferol, Vitamin D3, (VITAMIN D-3) 2,000 unit Tablet Take by mouth daily. Yes LACTOBACILLUS ACIDOPHILUS (PROBIOTIC ORAL) Take by mouth daily. Yes LORazepam (ATIVAN) 1 mg Tablet Take 1 mg by mouth 3 times daily as needed. Yes sertraline (ZOLOFT) 50 mg Tablet Take 50 mg by mouth daily. Yes traZODone (DESYREL) 50 mg Tablet Take 2 tablets by mouth nightly as needed for Sleep. Yes ALLERGIES: Allergies Allergen Reactions ??? Stelara [Ustekinumab] Other (See Comments) Tlksvgnxh-ljkxepy-ggdmnskvz SOCIAL HISTORY: History Smoking Status ??? Former Smoker ??? Types: Cigarettes ??? Quit date: 03/21/2015 Smokeless Tobacco ??? Never Used FAMILY HISTORY: No family history on file. REVIEW OF SYSTEMS: All 12 systems reviewed and negative except as noted per HPI. PHYSICAL EXAM: Vitals Office Visit from 10/19/2016 in Endocrinology Weight - Scale 84.8 kg (187 lb) Height 160 cm (5' 3) BSA (Calculated - sq m) 1.94 sq meters BMI (Calculated) 33.2 Heart Rate 78 BP 120/80 Gen: NAD, AAOx3, speaking full sentences, calm pleasant demeanor, mildly overweight habitus ASSESSMENT: 45 yo F with several nonspecific symptoms including fatigue, weight gain, early awakening feeling wired for several hours followed by daytime sleepiness. We had a long discussion today about the testing she had done through her fighter pilot's clinic. The validated method for screening forCushing's syndrome according to the Endocrine Society Guidelines are either midnight salivary cortisol, 24 hr urine free cortisol, or a 1mg overnight dexamethasone suppression test. She had a 24h urine free cortisol test apparently done by the fighter pilot, however the method of collection is not a standard one and involved sampling her urine with a piece of felt over a 12 hour period as opposed to collection of all urine into a container over a 24 hour period, which is the validated method for 24hr UFC measurement. Nonetheless, the 24h UFC measurement in this nonstandard way did result in a cortisol level within the normal range. Aside from the questionable validity of these unusual tests, an elevated cortisone level would be of no clinical consequence considering that cortisone is fairly inert in regards to glucocorticoid & mineralocorticoid activity. The enzyme 05-dqvc-bihmpjdujprxfc dehydrogenase is charged with inactivating cortisol to cortisone. If anything, an elevated cortisone might suggest overactivity of her HPA axis due to physical or emotional stressors, with the excess cortisol being shuttled away to cortisone. The treatment of this would of course be to address the stress in her life with better coping strategies and/or trying to minimize exposure to the stressors (if possible). In regards to her estrogen testing, again, I question the validity of this unusual nonstandard way of measuring estrogen levels. Estrogen is not usually measured via the urine. In her biochemical testing that I obtained in July, I checked her estradiol level in her blood (she was off of her HRTfor 28 days prior) and it was quite normal at 60, as was the rest of her HPG axis. Additionally, the implication of elevated estrogen metabolites is unclear and is of no clinical utility. Ms. Sprague appreciated the clarification of this testing and expressed that these results had made her very concerned, such that she ended up purchasing some supplements from her fighter pilot to address these abnormalities, but seems to be more reassured about these. Clinically she does not have any clinical stigmata of Rafiq's syndrome, other than perhaps some weight gain, which is very nonspecific, and has difficulty with early awakening rather than falling asleep. Since she continues to harborsome concern about hypercortisolemia, though, I offered for her to undergo midnight salivary cortisol x 2 for screening. Since she is on HRT, serum-based Rafiq's screening would not be recommended due to unreliable results anticipated due to the associated elevation of cortisol binding globulin. 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 For instance, sleep apnea would result in waking following a period of apnea dueto hypoxia, which also results in a stress response by the body, including cortisol and adrenaline.I would like her to be evaluated for a sleep disorder and I will refer her to the Sleep Disorders Clinic. She would like to wait on a psychiatry referral as had been suggested by her PCP, as she does not feel anxiety is the root cause of her symptoms, and she does not feel anxious. PLAN: --MN salivary cortisol x 2. --referral to sleep disorders clinic. --if salivary cortisol is negative, she can return to the care of her PCP for further evaluation. 25 min of this 40 min face to face visit was spent in discussing her recent testing and explaining the meaning behind the different levels, the usual method of testing, etc. YARELI MORALES MD Sheet Metal Worker Helperrn licensed practical Section of Endocrinology [facility] documented in this encounter Plan of Treatment Scheduled Referrals Name Type Priority Associated Diagnoses Orde r Schedule Referral to Sleep Disorders Center Outpatient Referral Routine Sleep concern Ordered: 10/19/2016 documented as of this encounter Results * Cortisol, saliva (10/20/2016 11:00 AM EDT) Jamari Saliva Midnight (OCTOBER) 75 <100 ng/dL [facility] Comment: ADDITIONAL INFORMATION This test was developed and its performance characteristics determined by [facility] in a manner consistent with CLIA requirements. This test has not been cleared or approved by the U.S. Food and Drug Administration. Test Performed by: [facility] - [address] [address] Specimen of unknown material (specimen) 10/20/2016 11:00 AM EDT 10/23/2016 12:05 PM EDT Yareli Morales MD LAB SEND OUT ORDERAB LES [facility] [place] [address] * Cortisol, saliva (10/19/2016 11:00 AM EDT) Jamari Saliva Midnight (OCTOBER) <50 <100 ng/dL [facility] Comment: ADDITIONAL INFORMATION This test was developed and its performance characteristics determined by [facility] in a manner consistent with CLIA requirements. This test has not been cleared or approved by the U.S. Food and Drug Administration. Test Performed by: [facility] - [address] [address] Specimen of unknown material (specimen) 10/19/2016 11:00 AM EDT 10/23/2016 12:05 PM EDT Yareli Morales MD LAB SEND OUT ORDERAB LES [facility] [place] [address] documented in this encounter Visit Diagnoses Diagnosis Sleep concern Problems related to lack of adequate sleep documented in this encounter Care Teams Personal Care Aid Relationship Specialty Start Date End Date Tristan Soliman DO [address] [place] [address] PCP - General 05/09/10 11/26/16 documented as of this encounter
--- OUTSIDE RECORDS SUMMARY | 2024-02-04 01:26 | XMS_ITS | Encounter Summary ---
Author Organization [facility] [place] [address] Care Team Providers Care Pie Bakery Laborer Name Role Phone Leonor Hendricks MD Primary Care Provider [phone] Encounter Details Date Type Department Care Team (Late st Contact Info) Description 01/18/2017 [place] [address] Jason Brady Social History Tobacco Use Types [...] encounter Progress Notes * Jason Brady - 01/18/2017 12:07 PM EDT [facility] Prior Authorization Medication: Cosentyx RX Insurance: [place] Medicaid Insurance Phone #: [phone] Insurance Fax #: Sent via Cover My Meds ID #: [id number] Spoke With: CORNEL Reference #: Date CORNEL Sent: 01/18/17 Approval Date: Pharmacy: [facility] Notes: Sent [place] for reauthorization, await response. *PA now approved with $3 copay. The [facility] will notify the patient and arrange to have the medication mailed to them. documented in this encounter Plan of Treatment Not on file documented as of this encounter Visit Diagnoses Not on filedocumented in this encounter Care Teams Pie Bakery Laborer Relationship Specialty Start Date End Date Leonor Hendricks MD [address] [place] [address] PCP - General Family Medicine 11/27/16 documented as of this encounter
--- OUTSIDE RECORDS SUMMARY | 2024-02-04 01:26 | XMS_ITS | Encounter Summary ---
[place] [address] Care Team Providers Care Director Recreation Name Role Phone Tristan Soliman DO Primary Care Provider [phone] Encounter Details Date Type Department Care Team (Late st Contact Info) Description 09/13/[address] [place] [address] Keith Nunez Social History Tobacco Use Types Packs/Day Years [...] on filedocumented in this encounter Care Teams Director Recreation Relationship Specialty Start Date End Date Tristan Soliman DO [address] [place] [address] PCP - General 05/09/10 11/26/16 documented as of this encounter
--- OUTSIDE RECORDS SUMMARY | 2024-02-04 01:26 | XMS_ITS | Encounter Summary ---
Author Organization [facility] [place] [address] Care Team Providers Care Registered Occupational Therapist Name Role Phone Leonor Hendricks MD Primary Care Provider [phone] Encounter Details Date Type Department Care Team (Late st Contact Info) Description 02/05/2017 External [place] [address] Yareli Morales MD [facility] [place] [address] Misha's thyroiditis Social History Tobacco Use Types [...] Priority Date/Time Associated Diagnosis Comments T3, FREE Routine 01/25/2017 Misha's thyroiditis TSH Routine 01/25/2017 Misha's thyroiditis T4, FREE Routine 01/25/2017 Misha's thyroiditis documented in this encounter Results * (ABNORMAL) T3, free (01/25/2017) Free T3 3.3(Externa l Lab) Blood specimen (specimen) 01/25/2017 Yareli Morales MD CHEMISTRY ORDERABLES * (ABNORMAL) T4, free (01/25/2017) Free T4 0.80(Nursing Consultant al Lab) Blood specimen (specimen) 01/25/2017 Yareli Morales MD CHEMISTRY ORDERABLES * (ABNORMAL) TSH (01/25/2017) Thyroid Stimulating Hormone 1.86(Exter nal Lab) Blood specimen (specimen) 01/25/2017 Yareli Morales MD CHEMISTRY ORDERABLES documented in this encounter Visit Diagnoses Diagnosis Misha's thyroiditis Chronic lymphocytic thyroiditis documented in this encounter Care Teams Registered Occupational Therapist Relationship Specialty Start Date End Date Leonor Hendricks MD [address] [place] [address] PCP - General Family Medicine 11/27/16 documented as of this encounter
--- OUTSIDE RECORDS SUMMARY | 2024-02-04 01:26 | XMS_ITS | Encounter Summary ---
[place] [address] Care Team Providers Care Threading Machine Tender Name Role Phone Tristan Soliman DO Primary Care Provider Encounter Details Date Type Department Care Team (Latest Contact Info) Description 09/12/2016 2:04 PM EDT - 09/12/2016 11:59 PM EDT Hospital En[place] [address] Errol Crowley, [place] [address] [place], [place] [address] Localized enlarged lymph nodes Discharge Disposition: Home Social History Tobacco Use [...] Sig Dispensed Refills Start Date End Date propranolol (INDERAL) 20 mg TabletIndications:Arthr algia of both hands 2 times daily. Reported on 01/08/2017 3 09/11/2016 01/16/2017 clonazePAM (KLONOPIN) 0.5 mg Tablet Take 0.5 mg by mouth 3 times daily. 1 06/01/2016 09/19/2016 estradiol (ESTRACE) 1 mg Tablet TAKE 1 TABLET BY MOUTH DAILY FOR 10 DAYS STARTING 2 TO 3 DAYS BEFORE PERIOD 3 06/21/2016 09/19/2016 LORazepam (ATIVAN) 1 mg Tablet Take 1 mg by mouth 3 times daily as needed. Reported on 01/08/2017 2 07/31/2016 01/08/2017 propranolol (INDERAL) 80 mg Tablet Take 80 mg by mouth daily. 1 07/31/2016 09/19/2016 sertraline (ZOLOFT) 50 mg Tablet Take 50 mg by mouth daily. Reported on 01/08/2017 3 07/20/2016 01/16/2017 cholecalciferol, Vitamin D3, 1,000 unit Tablet Take 2 tablets by mouth daily. 60 tablet 05/27/2016 09/19/2016 traZODone (DESYREL) 50 mg Tablet Take 2 tablets by mouth nightly as needed for Sleep. 10 tablet 2 05/27/2016 03/25/2017 pravastatin (PRAVACHOL) 40 mg Tablet Reported on 09/19/2016 1 12/16/2015 017 fluocinolone (DERMA-SMOOTHE) 0.01 % external oil 1 Appl(s), Top, as directed 11/17/2007 09/19/2016 documented as of this encounter Plan of Treatment Not on file documented as of this encounter Procedures Procedure Name Priority Date/Time Associated Diagnosis Comments US SOFT TISSUE HEAD OR NECK Routine 09/12/2016 2:41 PM EDT Localized enlarged lymph nodes documented in this encounter Results * (ABNORMAL) US Soft Tissue Head Or Neck (09/12/2016 2:41 PM EDT) Anatomical Region Laterality Modality Ultrasound 09/12/2016 2:35 PM EDT Impressions 09/12/2016 6:31 PM EDT ??Ultrasound Dictation: 1. ??Targeted ultrasound evaluation of the left neck was performed. At least two lymph nodes are seen in the left neck, without specific suspicious sonographic features. 2. ??Indeterminate 0.8 cm hypoechoic lesion seen within the left parotid gland, which cannot be further characterized by ultrasound. CT should be considered for further evaluation. Unexpected finding. I have personally reviewed the image(s) and the residents interpretation and agree with the findings, Jacinta Harmon at 09/12/2016 6:22 PM ?Jacinta Harmon MD Electronically Signed Final Report ?? 09/12/2016 06:30 pm Narrative 09/12/2016 6:31 PM EDT Thyroid ?(Signed Final 09/12/2016 06:30 pm) PATIENT INFO: ID #: ? [id number] ?: ??[birth year] (45 yrs) Name: ? RUSLAN CHAIREZ ? Visit Date: 09/12/2016 02:35 pm PERFORMED BY: Performed By: ? Esme DONG, ??Lauren Attending: ?Eden JHAVERI, Jacinta Mac. Associate: ?Dana JHAVERI, Kyler Garrett Referred By: ?ERROL CROWLEY [place] Location: ? [place] SERVICE(S) PROVIDED: ??[facility] - Soft Tissue Neck or Head - [id number] ? [id number] INDICATIONS: ??enlarged ymph nodes, neck COMPARISON: Noncontrast head CT 05/21/16. LYMPH NODES: 1) Benign appearing lymph node measuring 1.5 x 1.1 x 0.4 cm ??mid left anterior neck. ?? 2) Probable lymph node measuring 2.0 x 0.6 x 2.1 cm inferior left anterior neck. ??3) Left parotid hypoechoic lesion measuring 0.6 x 0.8 x 0.6 cm. Resulting Agency Comment Unexpected Finding Errol Crowley ND IMG US GEN ORDERAB LES documented in this encounter Visit Diagnoses Diagnosis Localized enlarged lymph nodes Enlargement of lymph nodes documented in this encounter Care Teams Threading Machine Tender Relationship Specialty Start Date End Date Tristan Soliman DO [address] [place] [address] PCP - General 05/09/10 11/26/16 documented as of this encounter
--- OUTSIDE RECORDS SUMMARY | 2024-02-04 01:26 | XMS_ITS | Encounter Summary ---
Author [facility] [place] [address] Care Team Providers Care Economic Historian Name Role Phone Jourdan, Tristan OLIVAREZ Primary Care Provider [phone] Encounter Details Date Type Department Care Team (Latest Contact Info) Description 10/20/2016 11:19 AM EDT - 10/20/2016 11:59 PM EDT Hospital [place] [address] Discharge Disposition: Home Social History Tobacco Use [...] Sig Dispensed Refills Start Date End Date levonorgestrel-ethinyl estradiol (AVIANE;ALESSE;LESSINA) 0.1-20 mg-mcg Tablet Take 1 tablet by mouth daily. Reported on 2016 10/14/2017 sertraline (ZOLOFT) 100 mg TabletIndications:Arthr algia of both hands Take 100 mg by mouth daily. Reported on 01/08/2017 01/16/2017 propranolol (INDERAL) 20 mg TabletIndications:Arthr algia of both hands 2 times daily. Reported on 01/08/2017 3 09/11/2016 01/16/2017 cholecalciferol, Vitamin D3, (VITAMIN D-3) 2,000 unit TabletIndications:Arthr algia of both hands Take by mouth daily. 02/25/2018 LACTOBACILLUS ACIDOPHILUS (PROBIOTIC ORAL)Indications:Arthra lgia of both hands Take by mouth daily. Reported on 01/08/2017 01/16/2017 LORazepam (ATIVAN) 1 mg Tablet Take 1 mg by mouth 3 times daily as needed. Reported on 01/08/2017 2 07/31/2016 01/08/2017 sertraline (ZOLOFT) 50 mg Tablet Take 50 mg by mouth daily. Reported on 01/08/2017 3 07/20/2016 01/16/2017 traZODone (DESYREL) 50 mg Tablet Take 2 tablets by mouth nightly as needed for Sleep. 10 tablet 2 05/27/2016 03/25/2017 documented as of this encounter Plan of Treatment Not on file documented as of this encounter Visit Diagnoses Not on filedocumented in this encounter Care Teams Economic Historian Relationship Specialty Start Date End Date Tristan Soliman DO [address] [place] [address] PCP - General 05/09/10 11/26/16 documented as of this encounter
--- OUTSIDE RECORDS SUMMARY | 2024-02-04 01:26 | XMS_ITS | Encounter Summary ---
[place] [address] Care Team Providers Care Semi Driver Name Role Phone Tristan Soliman DO Primary Care Provider Encounter Details Date Type Department Care Team (Late st Contact Info) Description 10/29/2016 Telephone [place] [phone] Beverly Morrow RN Social History Tobacco Use Types Packs/Day [...] encounter Miscellaneous Notes * Telephone Encounter - Beverly Morrow RN - 11/01/2016 10:20 AM EDT Images from the original note were not included. Jesika Sprague?? Female, 45 y.o., 1970 Weight: 84.8 kg (187 lb) Home: PCP: Tristan Soliman DO myD-H: Active Next Appt: 12/05/2016 ?? Message Received: Today ? Sierra Tillman Shannon L, RN ? Caller: Unspecified (3 days ago, 11:00 AM) ? Just sent it. They should be contacting her! * Telephone Encounter - Beverly Morrow RN - 10/29/2016 11:34 AM EDT Jesika calls in and left message that she is wondering if she can have her sleep study done locally. Message forwarded to secretaries to get sleep study sent to [facility]. documented in this encounter Plan of Treatment Not on file documented as of this encounter Visit Diagnoses Not on filedocumented in this encounter Care Teams Semi Driver Relationship Specialty Start Date End Date Tristan Soliman DO [address] [place] [address] PCP - General 05/09/10 11/26/16 documented as of this encounter
--- OUTSIDE RECORDS SUMMARY | 2024-02-04 01:26 | XMS_ITS | Encounter Summary ---
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 3 01/16/2017 clobetasol (TEMOVATE) 0.05 % CreamIndications:Pso riasis,Immunosuppres sed status,High risk medication use,Psoriatic arthritis Apply topically 2 times daily. 30 g 1 03/18/2017 10/23/2017 SECUKINUMAB (COSENTYX, 2 SYRINGES, SUBQ) Inject subcutaneously every 30 days. 07/22/2017 LORazepam (ATIVAN) 0.5 mg Tablet TAKE ONE TABLET BY MOUTH TWICE A DAY NEEDED 1 12/26/2016 07/10/2017 escitalopram (LEXAPRO) 10 mg Tablet Take 10 mg by mouth daily. 03/25/2017 levothyroxine (SYNTHROID) 25 mcg Tablet Take 1 tablet by mouth daily. 90 tablet 3 10/31/2016 07/10/2017 levonorgestrel-ethin yl estradiol (AVIANE;ALESSE;LESSI NA) 0.1-20 mg-mcg Tablet Take 1 tablet by mouth daily. Reported on 2016 10/14/2017 cholecalciferol, Vitamin D3, (VITAMIN D-3) 2,000 unit TabletIndications:Ar thralgia of both hands Take by mouth daily. 018 traZODone (DESYREL) 50 mg Tablet Take 2 tablets by mouth nightly as needed for Sleep. 10 tablet 2 05/27/2016 03/25/2017 documented as of this encounter Plan of Treatment Not on file documented as of this encounter Procedures Procedure Name Priority Date/Time Associated Diagnosis Comments JAK2 Routine 03/18/2017 10:36 AM EDT Neutrophilic leukocytosis BCR-ABL1 (P210) BY RT-PCR, QUANTITATIVE Routine 03/18/2017 10:36 AM EDT Neutrophilic leukocytosis HEMOGRAM Routine 03/18/2017 10:36 AM EDT Neutrophilic leukocytosis DIFFERENTIAL, AUTOMATED Routine 03/18/2017 10:36 AM EDT Neutrophilic leukocytosis CBC (WITH DIFF) Routine 03/18/2017 10:36 AM EDT Neutrophilic leukocytosis documented in this encounter Results * (ABNORMAL) Differential, Automated (03/18/2017 10:36 AM EDT) Neutrophil % 64.1 % [facility] Neutrophil Absolute 6.19(H) 1.70 - 6.10 x10(3)/mc L [facility] Lymph % 27.8 % [facility] Lymphocytes Abs 2.7 0.9 - 3.2 x10(3)/mc L [facility] Monocyte % 5.2 % [facility] Monocyte Abs 0.5 0.3 - 0.9 x10(3)/[facility] Eos % 1.0 % [facility] Eosinophils Abs 0.1 0.0 - 0.4 x10(3)/[facility] Basophil % 0.7 % [facility] Baso Absolute 0.1 0.0 - 0.1 x10(3)/[facility] Immature Gran % 1.20 % [facility] Comment: Immature granulocytes(IG's)percentage and absolute count will include metamyelocytes, myelocytes, and promyelocytes. Blood smears from CBCs yielding IG's will be scanned manually for concordance. If this scan disagrees with the automated IG or if promyelocytes are noted, a manual differential will be performed. Immature Gran Absolute 0.12(H) 0.00 - 0.04 x10(3)/[facility] Blood specimen (specimen) 03/18/2017 10:36 AM EDT 03/18/2017 10:45 AM EDT Narrative Resulting Agency Comment Spec In Lab Abeba Barakat MD HEMATOLOGY ORDERABLE S [facility] [place] [address] * (ABNORMAL) Hemogram (03/18/2017 10:36 AM EDT) White Blood Cell 9.7(H) 4.0 - 9.5 x10(3)/[facility] Red Blood Cell 4.53 4.00 - 5.21 x10(6)/[facility] Hemoglobin 13.7 11.7 - 15.5 gm/dL [facility] Hematocrit 40.1 35.7 - 45.8 % [facility] Mean Cell Volume 88.5 82.6 - 94.4 fL [facility] Mean Cell Hemoglobin 30.2 27.1 - 32.0 pg [facility] Mean Cell Hemoglobin Concentration 34.2 31.7 - 35.0 gm/dL [facility] Platelet 234 145 - 357 x10(3)/mc L [facility] RDW Standard Deviation 42.8 37.0 - 46.0 fL [facility] RDW coefficient of variation 13.1 11.5 - 14.1 % [facility] Mean Platelet Volume 11.2 7.6 - 12.9 fL [facility] NRBC% auto 0.0 % [facility] NRBC Absolute 0.000 0.000 - 0.000 x10(3)/mc L [facility] Blood specimen (specimen) 03/18/2017 10:36 AM EDT 03/18/2017 10:45 AM EDT Narrative Resulting Agency Comment Spec In Lab Abeba Barakat MD HEMATOLOGY ORDERABLE S [facility] [place] [address] * BCR-ABL1 (p210) by RT-PCR, Quantitative (03/18/2017 10:36 AM EDT) Pathologist [facility] BCR/ABL Report BCR-ABL1 Analysis by Quantitative RT-PCR INDICATION FOR STUDY: ??Elevated WBC, Evaluate BCR-ABL1 status ANALYSIS: ??Quantitative assessment for the BCR-ABL1, p210 transcript SPECIMEN TYPE: ??Blood RESULTS: ??BCR-ABL1 p210 fusion transcript is NOT DETECTED. INTERPRETATION: The BCR-ABL1 fusion transcript is not present in this specimen or is below the limit of detection (0.002% BCR-ABL1 (IS)) for this assay. This result should be interpreted relative to any previous result(s) and in accordance with clinical findings. Continued serial monitoring with this method is appropriate if p210 BCR-ABL1 transcript was previously detected. This result does not exclude the p190 or other less common fusion transcripts; clinical correlation is recommended. METHODS: ??RNA from leukocytes is used in quantitative reverse transcriptase PCR (QuantiQriously qPCR BCR-ABL IS Kit, Spinelab) for the detection of the e13/a2 or e14/a2 major breakpoint BCR-ABL transcripts corresponding to the p210 fusion protein. This assay is validated to detect these fusion transcripts at concentrations as low as 0.002% BCR-ABL1 (IS) or a log reduction of 4.7 (MR4.7). LIMITATIONS AND DISCLAIMERS: ??This assay is designed to detect the d961-uwgiggldwt BCR-ABL1 transcripts (e13/a2 and e14/a2) only. This assay is not designed to detect p190 (e19/a2) or other less common BCR-ABL1 fusion transcripts. This test was developed and its performance characteristics determined by the [facility] at [facility]. It has not been cleared or approved by the FDA. The laboratory is regulated under CLIA as qualified to perform high-complexity testing. This test is used for clinical purposes. It should not be regarded as investigational or for research. [facility] Comment: [VERIFIED DATE]03.22.17 Verified By:Earlene PhD, Koffi De La Rosa Director, Molecular Pathology (Electronic Signature) Blood specimen (specimen) 03/18/2017 10:36 AM EDT 03/18/2017 11:46 AM EDT Narrative Resulting Agency Comment Spec In Lab Abeba Barakat MD MOLECULAR ORDERABLES [facility] [place] [address] * JAK2 (03/18/2017 10:36 AM EDT) JAK2 (Interp) JAK2 V617F Somatic Variant Genotyping RESULTS: The JAK2 V617F somatic variant is NOT DETECTED. Specimen type: blood Indication: elevated WBC INTERPRETATION: ??The absence of the JAK2 V617F variant does not exclude the diagnosis of a myeloproliferative neoplasm (MPN). While approximately 95% of polycythemia vera (PV) cases are associated with the V617F variant, 2-5% of PV cases have variants in exon 12 of JAK2. Additionally, V617F is present in 50-60% of essential thrombocythemia (ET) and primary myelofibrosis (PMF) cases. Further interpretation of this finding must be made in the context of any additional testing and the complete hematopathologic and clinical presentation. METHOD: A region of the Janus kinase 2 (JAK2) gene including the V617 codon is amplified by PCR in the presence of 5? hydrolysis probes capable of detecting and distinguishing between the normal reference sequence ([id number]) and the V617F variant sequence encoding the V617F variant ([id number]:c.184 9G>T; [id number]:p.Val6 17Phe). The analytic sensitivity of this test permits detection of low-level V617F variants present in little as 5% of the total JAK2 DNA. Genomic DNA used in this testing was isolated from either peripheral blood or bone marrow as indicated above. LIMITATIONS AND DISCLAIMERS: Although unlikely, additional rare variants (germline or somatic; benign or pathogenic; known or unknown), have the potential to interfere with the performance of this test, producing false negative or false positive results. When genotyping results are not consistent with other clinical observations or test results, additional testing should be considered. This test was developed and its performance characteristics determined by the [facility] at [facility]. It has not been cleared or approved by the FDA. The laboratory is regulated under CLIA as qualified to perform high-complexity testing. This test is used for clinical purposes. It should not be regarded as investigational or for research. [facility] Comment: [VERIFIED DATE]03.22.17 Verified By:Earlene PhD, Koffi De La Rosa Director, Molecular Pathology (Electronic Signature) Blood specimen (specimen) 03/18/2017 10:36 AM EDT 03/18/2017 11:46 AM EDT Narrative Resulting Agency Comment Spec In Lab Abeba Barakat MD HEMATOLOGY ORDERABLE S [facility] [place] [address] documented in this encounter Visit Diagnoses Diagnosis Neutrophilic leukocytosis Other specified disease of white blood cells documented in this encounter Care Teams Bonbon Cream Warmer Relationship Specialty Start Date End Date Leonor Hendricks MD [address] [place] [address] PCP - General Family Medicine 11/27/16 documented as of this encounter
--- OUTSIDE RECORDS SUMMARY | 2024-02-04 01:26 | XMS_ITS | Encounter Summary ---
Author Organization [facility] [place] [address] Care Team Providers Care Planner Intern Name Role Phone JourdanTristan batres Primary Care Provider Reason for Referral * Psychiatric (Routine) - Closed Specialty Diagnoses / Procedures Referred By Rufus carrillo Referred To Contact Psychiatry Diagnoses Anxiety Maria Luz Crisostomo MD [facility] [address] [address] [facility] [address] Referral ID Status Reason Start Date Expiration Date V isits Requested Visits Authorized [id number] Closed Consult, Test & Treat 05/27/2016 05/27/2017 1 1 Reason for Visit * Auth/Cert Specialty Diagnoses / Procedures Referred By Rufus carrillo Referred To Contact Diagnoses Unspecified mood (affective) disorder UNSPECIFIED MOOD DISORDER Procedures EMERGENCY PSYCH IPI Referral ID Status Reason Start Date Expiration Date Visits Re quested Visits Authorized [id number] 1 1 Encounter Details Date Type Department Care Team (Latest Contact Info) Description 05/21/2016 4:34 PM EST - 05/27/2016 1:41 PM EST Hospital Encounter [address] [place] [id number] Maria Luz Crisostomo MD [facility] [address] Anxiety Discharge Disposition: Home Social History Tobacco Use [...] Sign Reading Time Taken Comments Blood Pressure 121/58 05/27/2016 8:56 AM EST Pulse 80 05/27/2016 8:56 AM EST Temperature 36.3 ??C (97.3 ??F) 05/27/2016 8:56 AM ES T Respiratory Rate 15 05/27/2016 8:56 AM EST Oxygen Saturation 99% 05/27/2016 8:56 AM EST Inhaled Oxygen Concentration - - Weight 98.8 kg (217 lb 13 oz) 05/27/2016 9:12 AM EST Height 160 cm (5' 3) 05/21/2016 5:09 PM EST Body Mass Index 38.58 05/21/2016 5:09 PM EST documented in this encounter Discharge Summaries * Hilaria Dixon MD - 05/27/2016 1:41 PM EST Discharge Summary Patient Name: Ruslan Sprague Patient Age: 45 y.o. Language: [place] Race: White Ethnicity: Not nor Admit date: 05/21/2016 Discharge date and time: 05/27/2016 8:07 AM Attending Physician: Maria Luz Crisostomo MD Discharge Physician: Hilaria Dixon MD Discharge Diagnosis: unspecified anxiety disorder Follow-up Recommendations for Providers: The following medications were started and/or titrated during this hospitalization: 1. Please monitor the patient's condition, and adjust medications accordingly. Follow-up Providers/Appointments: General [place] [address] SaturdayMay 28 at 11:00am Future Appointments and Orders Future Orders Complete By Expires Referral to Psychiatry [[email or web address] Custom] As directed Process Instructions: If no progress note charted, please enter Clinical details in comments. Scheduling Instructions: Questions: My question or request is: follow up post hospital discharge for severe anxiety Reason for Hospitalization: safety, stabilization and medication management Discharge Diagnoses (Hospital Problems) and Secondary Diagnoses (Chronic Problems): There are no hospital problems to display for this patient. Active Non-Hospital Problems Diagnosis ??? Psoriasis Discharge DSM Diagnosis: unspecified anxiety disorder Operations/Major Procedures: None History of Presentation: As per the 05/21/2016 admission H&P: Per Olena Narvaez's ED note on 05/21/2016 Chief Complaint: ?? 45 y.o. Female presents to [facility] Emergency Department with increased anxiety since 05/16/16 and suicidal ideation with plan to overdose on medications. ?? History of Presenting Illness (location, quality, severity, duration, timing, context, modifying factors, and associated signs & symptoms): ?? Patient reports on 05/16/16 she went to see her PCP because she thought she might have a UTI. At that appointment she talked with her PCP about a couple of recent incidents of increased anxiety. She was started on Sertraline 50mg which she took the first does that day. She reports that night she was nauseous and did not feel well. She slept 4-5 hours and woke up feeling like I was zinging on caffeine and feeling extremely anxious. She took another dose of Sertraline on 05/17/16 but felt worse and vomited. Additional symptoms included decreased appetite, palpitations, dizziness, headache, generalized weakness, difficulty concentrating, racing thoughts, pacing and being afraid to drive or leave her home. She called her PCP on 05/17/16 and she was told to stop taking the Sertraline. She was prescribed Propranolol 40mg PRN. She reports she has not felt any relief from the anxiety and has begun feeling if she has to live with how she is feeling right now, she would rather be . She began thinking about overdosing rather than live this way. Due to her symptoms she has not worked in the last 3 days. ?? She reports 6 months ago she had a very similar episode that lasted 7 weeks. It started when she went to her PCP feeling she had a UTI which she did have and was treated for. At that time she had been taking Sertraline 50mg for the last 20 years and she had begun taking a medication by injection for her psoriasis. Her PCP felt her symptoms could be related to the injections so her injections and the Sertraline were both stopped and she was put on propranolol and lorazepam. Since then she has felt fine until 05/16/16. ?? She has no prior suicidal ideation, suicide attempt, psychiatric hospitalization or mental health therapy. Hospital Course: Ruslan Sprague was voluntarily admitted to inpatient psychiatry for safety, stabilization, and medication optimization. Standard admission labs were ordered and pertinent results are located below. Sertraline was discontinued. Fluoxetine was started and titrated to 10mg. Clonazepam was started at0.25mg daily as needed for anxiety due to severity of anxiety. She tolerated these medications well. Ruslan endorsed expectations that her anxiety would resolve as soon as she was started on these medications and recognized that her anxiety over this was feeding into already existent anxiety. She was an active participant in her own treatment plan, attended groups to build coping skills, and interacted in the milieu. She was continued on bactrim for UTI (started as outpatient). Repeat UA came back positive again for UTI and nitrofurantoin was started. Team discussed patient's alcohol use with her: (x) patient denied any problems with alcohol. Team discussed patient's tobacco use with her: (x) patient denied any problems with tobacco. On the day of discharge, the patient denied thoughts of suicide, homicide, or violence. Follow up was scheduled as described below, and this information was provided to the patient in her After VisitSummary. Patient was also provided with emergency contact information. Vital Signs at Discharge: BP: 121/58, Heart Rate: 80, Temp: 36.3 ??C (97.3 ??F), Resp: 15, BMI (Calculated): 38.2 Height: 160 cm (5' 3) (05/21/16 1709) Weight - Scale: 98.8 kg (217 lb 13 oz) (05/27/16 0912) Functional and Cognitive Status: Grossly intact Important Lab Data: Psychiatry Labs: Preg: No results found for: HCGQUAL, HCGQUANT Heme: No results found for: WBC, HGB, HCT, PLATELET, MCV, NEUTROABS No results found for: HA1C, SEDRATE Chem: No results found for: NA, K, CL, CO2, BUN, GLUCOSE, GLUCFASTING No results found for: CALCIUM, MAGNESIUM, PHOS LFTs: Lab Results Component Value Date ALT 52 (H) 05/21/2016 AST 43 (H) 05/21/2016 ALKPHOS 103 05/21/2016 BILITOT 0.4 05/21/2016 Coags: No results found for: PTT, PT, INR Thyroid: Lab Results Component Value Date TSH 2.23 05/23/2016 Lipids and HgbA1C: No results found for: CHLPL, HDL, CHOLHDL, LDLCHOL, LDLDIRECT, TRIG No results found for: HA1C Vit Lvls: Lab Results Component Value Date [id number] 550 05/23/2016 SFOLATE 12.0 05/23/2016 UA: No results found for: GLUCOSEU, KETONESUA, PROTEINUADIP, BLOODUADIP, LEUKOESTERUA, NITRATEUA, WBCUA (May not represent most recent UA results. See eD-H labs for more details.) Tox: No results found for: ETHANOL, ACTMNPHEN, SALICYLATE, LEAD No results found for: UDAUSCREEN Rx Lvls: No results found for: LITHIUM, CARBAMAZEPIN, VALPROATE, LAMOTRIGINE, CLOZAPINE Important Studies: None Pending Labs and Studies: None ECT, Operations, or Other Major Procedures: None Discharge Medications: (Reviewed at time of discharge, indication for use included): Your Medications New Medications Dose Details cholecalciferol (Vitamin D3) 1,000 unit Tab Take 2 tablets by mouth daily for Vit D deficiency 2000 Units Quantity: 60 tablet Refills: 0 clonazePAM 0.5 mg Tab Commonly known as: KlonoPIN Take 0.5 tablets by mouth 3 times daily as needed for Anxiety. 0.25 mg Quantity: 21 tablet Refills: 1 FLUoxetine 10 mg Cap Commonly known as: PROzac Take 1 capsule by mouth daily for anxiety 10 mg Quantity: 15 capsule Refills: 1 nicotine 14 mg/24 hr Pt24 Commonly known as: NICODERM CQ Place 1 patch onto the skin daily for smoking cessation 1 patch Quantity: 28 patch Refills: 0 nitrofurantoin (macrocrystal-monohydrate) 100 mg Cap Commonly known as: MACROBID Take 1 capsule by mouth 2 times daily for UTI 100 mg Quantity: 12 tablet Refills: 0 traZODone 50 mg Tab Commonly known as: DESYREL Take 2 tablets by mouth nightly as needed for Sleep. 100 mg Quantity: 10 tablet Refills: 2 Continued medications, unchanged Dose Details clobetasol 0.05 % Oint Commonly known as: TEMOVATE Apply to affected areas twice daily Saturday and Saturday for psoriasis Quantity: 30 g Refills: 3 DOVONEX 0.005 % Crea Apply to affected areas twice daily Saturday-Saturday for psoriasis Generic drug: calcipotriene Quantity: 60 g Refills: 3 ENBREL SURECLICK Pnij Inject 50 mg subcutaneously twice a week for psoriasis Generic drug: etanercept 50 mg Refills: 0 fluocinolone 0.01 % Oil Commonly known as: DERMA-SMOOTHE 1 Appl(s), Top, as directed for psoriasis Refills: 0 LIPITOR 80 mg Tab 80MG = 1 Tablet(s), PO, Once daily for high cholesterol Generic drug: atorvastatin Refills: 0 methoxsalen 10 mg Cap Commonly known as: OXSORALEN Take 10 mg by mouth three times a week. 1/2 hour prior to light treatment for psoriasis 10 mg Refills: 0 pravastatin 40 mg Tab Commonly known as: PRAVACHOL TAKE 1 TABLET ONCE A DAY for high cholesterol Refills: 1 triamcinolone 0.1 % Crea Commonly known as: KENALOG 1 Appl(s), Top, Twice daily for psoriasis Refills: 0 STOPPED Medications sulfamethoxazole-trimethoprim 800-160 mg Tab Commonly known as: BACTRIM DS for UTI Antipsychotic Quality Measure (select one of three reasons): No Updated Allergies/ADRs: Allergies Allergen Reactions ??? Stelara [Ustekinumab] Anxiety Immunizations Given this Hospitalization: Immunization History Administered Date(s) Administered ??? Influenza PF, Split 04/22/2011 ??? Influenza Vaccine, Whole 05/16/2005 Smoking Status at Discharge: History Smoking Status ??? Former Smoker ??? Quit date: 03/21/2015 Smokeless Tobacco ??? Never Used Instructions Given to Patient at Discharge: There are no outpatient Patient Instructions on file for this admission. Discharge References/Attachments None Discharge to: Home Discharge Condition/Prognosis: Satisfactory condition. Prognosis is dependent on patient's participation in ongoing treatment and adherence with prescribed medications. Signed: Hilaria Dixon MD 05/28/2016 Inpatient Provider Contact Information: Emergency Services (Crisis Line): [phone] [facility]: [phone] Hospital Main Line: [phone] Associated attestation - Maria Luz Crisostomo MD - 06/04/2016 2:08 PM EST On the day of discharge, patient appeared future oriented. She denied passive/active suicidal and homicidal ideation. She requested discharge and expressed motivation for outpatient psychiatric follow up. She appeared to have good family support. She was not seen responding to internal stimuli. She exhibited good reality testing. She identified positive coping skills. She exhibited marked improvement in her anxiety, mood symptoms and insight which was confirmed by her . She appeared to be tolerating her medication regimen well. I agree with the discharge summary as written. documented in this encounter Discharge Instructions * Discharge Instructions* Domenica Mary RN - 05/25/2016 12:46 PM EST Sara Simmons [address] [place] [id number] SaturdayMay 28 at 11:00am documented in this encounter Medications at Time of Discharge Medication Sig Dispensed Refills Start Date End Date cholecalciferol, Vitamin D3, 1,000 unit Tablet Take 2 tablets by mouth daily. 60 tablet 05/27/2016 09/19/2016 clonazePAM (KLONOPIN) 0.5 mg Tablet Take 0.5 tablets by mouth 3 times daily as needed for Anxiety. 21 tablet 1 05/27/2016 08/06/2016 traZODone (DESYREL) 50 mg Tablet Take 2 tablets by mouth nightly as needed for Sleep. 10 tablet 2 05/27/2016 03/25/2017 nitrofurantoin, macrocrystal-monohy drate, (MACROBID) 100 mg Capsule Take 1 capsule by mouth 2 times daily. 12 tablet 05/27/2016 08/06/2016 nicotine (NICODERM CQ) 14 mg/[address] 1 patch onto the skin daily. 28 patch 05/27/2016 08/06/2016 FLUoxetine (PROZAC) 10 mg Capsule Take 1 capsule by mouth daily. 15 capsule 1 05/27/2016 08/06/2016 pravastatin (PRAVACHOL) 40 mg Tablet Reported on 09/19/2016 1 12/16/2015 017 DOVONEX 0.005 % CreaIndications:Pso riasis Apply to affected areas twice daily Saturday-Saturday 60 g 3 03/04/2013 08/06/2016 clobetasol (TEMOVATE) 0.05 % ointmentIndications :Psoriasis Apply to affected areas twice daily Saturday and Saturday 30 g 3 02/26/2013 08/06/2016 Etanercept (ENBREL SURECLICK) 50 mg/mL (0.98 mL) PnIj Inject 50 mg subcutaneously twice a week. Reported on 08/06/2016 08/06/2016 methoxsalen (OXSORALEN) 10 mg Cap Take 10 mg by mouth three times a week. Reported on 08/06/2016 08/06/2016 fluocinolone (DERMA-SMOOTHE) 0.01 % external oil 1 Appl(s), Top, as directed 11/17/2007 09/19/2016 triamcinolone (KENALOG) 0.1 % cream 1 Appl(s), Top, Twice daily 03/03/2007 08/06/2016 atorvastatin (LIPITOR) 80 mg tablet 80MG = 1 Tablet(s), PO, Once daily 05/07/2006 08/06/2016 documented as of this encounter Progress Notes * Harry Singh RN - 05/27/2016 1:41 PM EST Psychiatric Nursing Discharge Note Patient Completed Relapse Prevention Plan: Yes Patient aware of follow-up appointments: yes Patient evidences understanding of medication use and regime: yes Patient belongings returned: yes Patient left unit with: At what time? 1335 * Maria Luz Crisostomo MD - 05/27/2016 1:41 PM EST Psychiatry Inpatient - Progress Note 05/27/2016 ID: Ruslan Sprague is a 45 y.o. female admitted on 05/21/2016 for worsening anxiety and SI. Hospital day 6. Pertinent medical issues being addressed: UTI Interval History: Patient seen this am. She requested discharge today, stating she feels much better and ready for discharge. she denied low mod/anhedonia/depressive symptoms. she denied passive or active suicidal thoughts/intent/plan emphatically. Patient denied hopelessness or significant anxiety. Patient denied panic symptoms/panic symptoms/worthlessness. Denied access to firearms. She denied any concerns except as noted above. She noted she will call 911/go to ED if experiencing suicidal thoughts/crisis/symptom worsening. She plans to reach out to friends, family more. She noted her mother plans to stay with her and her in the next few weeks for extra support for her , which patient feels good about. Team consulted with patient???s who denied any acute safety concerns regarding patient at this time and feel comfortable with plan for discharge today. he noted marked improvement in patient???s mood, anxiety, affect and functioning. He noted she 'looks well, acts well' and appears 'much better'. We reviewed with the need to remove any potentially dangerous objects from this patient's access, including guns, knives, prescription and over the counter medications, or ropes, to reduce the availability of potential lethal means as a cautionary measure. Review of Systems Denies nausea, vomiting, diarrhea, constipation, CP, SOB, headache Psych: See above Physical Exam Vitals (24hr Range): Temp: [36.3 ??C (97.3 ??F)] Resp: [15] Heart Rate: [80] BP: (121)/(58) SpO2: [99 %] Patient Vitals for the past 168 hrs: Weight 05/27/16 0912 98.8 kg (217 lb 13 oz) 05/21/16 1709 97.5 kg (214 lb 15.2 oz) Musculoskeletal System: normal gait and balance, ambulates independently, no atrophy and no abnormal movements Mental Status Exam: Appearance: Age appropriate female; dressed in casual clothing, fairly groomed Behavior: no psychomotor retardation or agitation; pleasant, calm and cooperative; fair eye contact Speech: non-pressured; spontaneous; conversational rate and volume Language: fluent [place]; non-profane Mood: much better, good Affect: Improved, bright, smiles readily and appropriately Thought Process: linear, goal-directed, no FOI Associations: intact; no MARIA DOLORES Thought Content: denied passive/active suicidal ideation, denies HI Perception: Not seen responding to internal stimuli, denies AVH Orientation: AAOx4 (person, place, time, and situation) Attention/Concentration: attends well to conversation Cognition: fair Memory: grossly intact Fund of Knowledge: age appropriate Insight: fair Judgment: fair Current medications: Scheduled: PRN: Labs: Last 24 Hours: No results found for this or any previous visit (from the past 24 hour(s)). Psychiatry Labs: Preg: No results found for: HCGQUAL, HCGQUANT Heme: No results found for: WBC, HGB, HCT, PLATELET, MCV, NEUTROABS No results found for: HA1C, SEDRATE Chem: No results found for: NA, K, CL, CO2, BUN, GLUCOSE, GLUCFASTING No results found for: CALCIUM, MAGNESIUM, PHOS LFTs: Lab Results Component Value Date ALT 52 (H) 05/21/2016 AST 43 (H) 05/21/2016 ALKPHOS 103 05/21/2016 BILITOT 0.4 05/21/2016 Coags: No results found for: PTT, PT, INR Thyroid: Lab Results Component Value Date TSH 2.23 05/23/2016 Lipids and HgbA1C: No results found for: CHLPL, HDL, CHOLHDL, LDLCHOL, LDLDIRECT, TRIG No results found for: HA1C Vit Lvls: Lab Results Component Value Date [id number] 550 05/23/2016 SFOLATE 12.0 05/23/2016 UA: Lab Results Component Value Date GLUCOSEU Negative 05/24/2016 KETONESUA Negative 05/24/2016 PROTEINUADIP Negative 05/24/2016 BLOODUADIP Small (A) 05/24/2016 LEUKOESTERUA Large (A) 05/24/2016 NITRATEUA Negative 05/24/2016 WBCUA 8 (H) 05/24/2016 (May not represent most recent UA results. See eD-H labs for more details.) Tox: No results found for: ETHANOL, ACTMNPHEN, SALICYLATE, LEAD No results found for: UDAUSCREEN Rx Lvls: No results found for: LITHIUM, CARBAMAZEPIN, VALPROATE, LAMOTRIGINE, CLOZAPINE Assessment: Ruslan Sprague is a 45 y.o. female admitted on 05/21/2016 for anxiety and SI. Patient was future oriented. She expressed motivation for outpatient psychiatric follow up. She identified positive coping skills. She exhibited marked improvement in her anxiety, mood symptoms and insight. Patient appears safe and appropriate for discharge to home today. Appears motivated for t/t. Tolerating medications well. Current Working Primary Diagnosis: unspecified anxiety disorder, r/o EMILY R/o premenstrual dysmorphic disorder R/o pheochromocytoma R/o vitamin deficiency Plan: # Anxiety ?? Continue fluoxetine 10mg daily ?? Continue clonazepam 0.25mg daily PRN anxiety ?? Continue prn trazodone 50-100 mg qhs for insomnia ?? Continue nicotine patch 14mg daily macrobid 100mg BID for 7 days total for UTI. Psychoeducation provided to patient, regarding her clinical condition, treatment options, treatment and follow up recommendations. Recommended 1-2 times a week CBT psychotherapy in addition to outpatient psychiatric follow up. Patient has an individual psychotherapy appointment tomorrow am at 11 am. Referral to [facility] outpatient psychiatry made. Recommended patient follow up with PCP for UTI. Patient will contact PCP tomorrow to f/u with him this week. Discharge instructions were reviewed with patient , who expressed understanding and agreement. Discussed CBT Based cognitive restructuring techniques. # Disposition: - discharge to home with today. Patient Instruction/Education Provided: Patient provided verbal instructions during rounds regarding the treatment plan. I have reviewed and agree with the multidisciplinary treatment plan. Signed By: MARIA LUZ CRISOSTOMO MD 05/27/2016 * Grover Tobin MS - 05/27/2016 10:34 AM EST Inpatient Daily Group Note Group: Goals; Reviewed BA, GEM, daily schedule, patients' progress and goals and read daily text. Notes: At AA. GROVER TOBIN MS 05/27/2016 * Brenna Correia RN - 05/27/2016 6:59 AM EST Ruslan was awake at 0100 complaining of insomnia. She denied anxiety. The doctor was paged for an additional trazodone order that had been effective the night before. Trazodone order received and administered at 0120. Patient interested in having additional trazodone available for future awakenings on future nights. She slept 7.5 total hours. * Maria Luz Crisostomo MD - 05/26/2016 8:01 PM EST Psychiatry Inpatient - Progress Note 05/26/2016 ID: Ruslan Sprague is a 45 y.o. female admitted on 05/21/2016 for worsening anxiety and SI. Hospital day 5. Pertinent medical issues being addressed: UTI Interval History: Per nursing report: she has been attending group sessions. She took scheduled trazodone , then, hadto repeat dose as the 1st dose didn't work. She slept 7.5 hrs last night. Patient seen this am. She noted 'today, (she) feels better'. She noted 'yesterday was super tough' due to jitteriness. She noted she took clonazepam this am. She noted her told her to 'stop trying to be a superhero and take clonazepam when really anxious'. She noted fears for the future. She denied hopelessness/suicidal thoughts today. Review of Systems Denies nausea, vomiting, diarrhea, constipation, CP, SOB, headache Psych: See above Physical Exam Vitals (24hr Range): Temp: [36.5 ??C (97.7 ??F)] Resp: [12] Heart Rate: [90] BP: (111)/(62) SpO2: [97 %] Patient Vitals for the past 168 hrs: Weight 05/21/16 1709 97.5 kg (214 lb 15.2 oz) Musculoskeletal System: normal gait and balance, ambulates independently, no atrophy and no abnormal movements Mental Status Exam: Appearance: Age appropriate female; dressed in casual clothing, fairly groomed Behavior: no psychomotor retardation or agitation; pleasant and cooperative; fair eye contact Speech: non-pressured; spontaneous; conversational rate and volume Language: fluent [place]; non-profane Mood: better Affect: Improving, brighter Thought Process: linear, goal-directed, no FOI Associations: intact; no MARIA DOLORES Thought Content: denied passive/active suicidal ideation, denies HI Perception: Not seen responding to internal stimuli, denies AVH Orientation: AAOx4 (person, place, time, and situation) Attention/Concentration: attends well to conversation Cognition: fair Memory: grossly intact Fund of Knowledge: age appropriate Insight: limited, improving Judgment: limited Current medications: Scheduled: ??? nitrofurantoin (macrocrystal-monohydrate) 100 mg Oral BID ??? cholecalciferol (Vitamin D3) 2,000 Units Oral Daily ??? nicotine 14 mg Transdermal Daily And ??? Patch Verification 1 patch Transdermal BID And ??? nicotine 1 patch Transdermal Daily ??? FLUoxetine 10 mg Oral Daily ??? atorvastatin 10 mg Oral QPM PRN: clonazePAM, traZODone, ibuprofen, ondansetron Labs: Last 24 Hours: No results found for this or any previous visit (from the past 24 hour(s)). Psychiatry Labs: Preg: No results found for: HCGQUAL, HCGQUANT Heme: No results found for: WBC, HGB, HCT, PLATELET, MCV, NEUTROABS Lab Results Component Value Date SEDRATE 10 05/23/2016 Chem: No results found for: NA, K, CL, CO2, BUN, GLUCOSE, GLUCFASTING Lab Results Component Value Date CALCIUM 9.4 05/23/2016 MAGNESIUM 0.85 05/23/2016 PHOS 3.8 05/23/2016 LFTs: Lab Results Component Value Date ALT 52 (H) 05/21/2016 AST 43 (H) 05/21/2016 ALKPHOS 103 05/21/2016 BILITOT 0.4 05/21/2016 Coags: No results found for: PTT, PT, INR Thyroid: Lab Results Component Value Date TSH 2.23 05/23/2016 Lipids and HgbA1C: No results found for: CHLPL, HDL, CHOLHDL, LDLCHOL, LDLDIRECT, TRIG No results found for: HA1C Vit Lvls: Lab Results Component Value Date [id number] 550 05/23/2016 SFOLATE 12.0 05/23/2016 UA: Lab Results Component Value Date GLUCOSEU Negative 05/24/2016 KETONESUA Negative 05/24/2016 PROTEINUADIP Negative 05/24/2016 BLOODUADIP Small (A) 05/24/2016 LEUKOESTERUA Large (A) 05/24/2016 NITRATEUA Negative 05/24/2016 WBCUA 8 (H) 05/24/2016 (May not represent most recent UA results. See eD-H labs for more details.) Tox: No results found for: ETHANOL, ACTMNPHEN, SALICYLATE, LEAD No results found for: UDAUSCREEN Rx Lvls: No results found for: LITHIUM, CARBAMAZEPIN, VALPROATE, LAMOTRIGINE, CLOZAPINE Assessment: Ruslan Sprague is a 45 y.o. female admitted on 05/21/2016 for anxiety and SI. Improving, but, ongoing anxiety symptoms. Appears motivated for t/t. Tolerating medications well. Current Working Primary Diagnosis: unspecified anxiety disorder, r/o EMILY R/o premenstrual dysmorphic disorder R/o pheochromocytoma R/o vitamin deficiency Plan: # Anxiety ?? Continue fluoxetine 10mg daily ?? Continue clonazepam 0.25mg daily PRN anxiety ?? Continue nicotine patch 14mg daily macrobid 100mg BID for 7 days. Repeat UA is positive for leukocytes. # Disposition: - after stabilization, expected to return home. Reasons for continued hospitalization: Warrants ongoing inpatient admission for safety, stabilization, and any other therapeutic intervention that could conceivably improve the patient's condition (including medication management, group psychotherapy, establishing adequate outpatient care). Patient Instruction/Education Provided: Patient provided verbal instructions during rounds regarding the treatment plan. I have reviewed and agree with the multidisciplinary treatment plan. I certify that the patient requires [x] inpatient care for psychiatric treatment that could reasonably be expected to improve the patient's condition and/or diagnostic study. Signed By: MARIA LUZ CRISOSTOMO MD 05/26/2016 * Kyara Vo - 05/26/2016 10:34 AM EST Inpatient Daily Group Note Group: Goals Attendance: Present Behavior: Conversational Therapeutic Work Observed: Moderate Mood: Calm Notes: Pt. 's goal for today is: Work on relapse prevention/safety plan. KYARA VO 05/26/2016 Inpatient Daily Group Note Group: Problem Solving Focus of group was review of boundaries, taking self assessment of how one is doing setting boundaries and discussion on importance of saying No as setting a good boundary. Attendance: Present Behavior: Conversational Therapeutic Work Observed: Moderate Mood: Calm Notes: Pt. attentive and spoke of self imposed guilt when saying no. Shares then feeling overwhelmed with having taken on more than capable of at that time. KYARA VO 05/26/2016 Inpatient Daily Group Note Group: Relapse prevention/safety planning Focus of group was review of the plan and discussion about generating useful one for self, sharing with supports and benefits of doing this. Attendance: Present Behavior: conversational Therapeutic Work Observed: Moderate Mood: Calm Notes: Pt. attentive and responded to questions asked by mortgage underwriter or peers. KYARA VO 05/26/2016 * Yareli Yee RN - 05/26/2016 6:45 AM EST Pt still awake at midnight, requesting medication for sleep. She had received Trazodone 50 mg at HS, had fallen asleep, very briefly. On awakening, she was unable to return to sleep. DOC contacted and a one-time order was placed for Trazodone 100 mg. Pt received this at 0015. She had returned to sleep by 0030 and remained sleeping for the remainder of the night. * Hilaria Dixon MD - 05/25/2016 1:06 PM EST Psychiatry Inpatient - Progress Note 05/25/2016 ID: Ruslan Sprague is a 45 y.o. female admitted on 05/21/2016 for worsening anxiety and SI. Hospital day 4. Pertinent medical issues being addressed: UTI Interval History Patient seen this am. She endorsed poor sleep last night and attributes it to not taking trazodone last night. She states because of poor sleep, she woke up this morning with worse anxiety. She states she slept with her nicotine patch on last night and took it off in the middle of the night. She feels foggy this morning, and attributes this to taking a clonazepam at 3am because it was too late to take a dose of trazodone. She endorses sad mood, becomes tearful that she fears this anxiety willnever resolve and it's a foreign and uncomfortable feeling for her. She endorses decreased appetite, decreasing interest, poor sleep, low energy due to anxiety. Denies active SI (she would never do that to her family), denies HI, AVH. Review of Systems Denies nausea, vomiting, diarrhea, constipation, CP, SOB, headache Psych: See above Physical Exam Vitals (24hr Range): Temp: [36.5 ??C (97.7 ??F)] Resp: [16] Heart Rate: [80] BP: (110)/(75) SpO2: -- Patient Vitals for the past 168 hrs: Weight 05/21/16 1709 97.5 kg (214 lb 15.2 oz) Musculoskeletal System: normal gait and balance, ambulates independently, no atrophy and no abnormal movements Mental Status Exam: Appearance: Age appropriate female; casually dressed; appropriately groomed Behavior: no psychomotor retardation or agitation; calm and cooperative; appropriate eye contact Speech: non-pressured; spontaneous; conversational rate and volume Language: fluent [place]; non-profane Mood: anxious Affect: restricted, improving Thought Process: organized, coherent, linear, goal-directed Associations: clear; intact; no MARIA DOLORES Thought Content: passive SI without plan or intent, denies HI Perception: Not seen responding to internal stimuli, denies AVH Orientation: AAOx4 (person, place, time, and situation) Attention/Concentration: attends well to conversation Cognition: appropriate Memory: grossly intact Fund of Knowledge: age appropriate Insight: limited, improving Judgment: limited Current medications: Scheduled: ??? nitrofurantoin (macrocrystal-monohydrate) 100 mg Oral BID ??? cholecalciferol (Vitamin D3) 2,000 Units Oral Daily ??? nicotine 14 mg Transdermal Daily And ??? Patch Verification 1 patch Transdermal BID And ??? nicotine 1 patch Transdermal Daily ??? FLUoxetine 10 mg Oral Daily ??? atorvastatin 10 mg Oral QPM PRN: clonazePAM, traZODone, ibuprofen, ondansetron Labs: Last 24 Hours: Recent Results (from the past 24 hour(s)) U24 Hrs and Volume Result Value Ref Range Hours Collected 24 hour(s) Urine TV (ml) 1500 mL Urinalysis with reflex Culture Result Value Ref Range Glucose UA Negative Negative mg/dL Protein UA Negative Negative mg/dL Bilirubin UA Negative Negative mg/dL Urobilinogen UA Normal Normal mg/dL pH UA 6.0 5.0 - 8.0 Blood UA Small (A) Negative mg/dL Ketones UA Negative Negative mg/dL Nitrite UA Negative Negative Leukocytes UA Large (A) Negative mcL Appearance UA Clear Clear Spec [place] UA 1.006 1.002 - 1.030 Color UA Straw Yellow RBC UA 6 (H) 0 - 4 /HPF WBC UA 8 (H) 0 - 5 /HPF Bacteria UA Rare (A) None /HPF Squam Epith UA 1 <=4 /HPF Culture Reflexed Yes Urine Hold Result Value Ref Range Urine Hold Sample in lab. Psychiatry Labs: Preg: No results found for: HCGQUAL, HCGQUANT Heme: No results found for: WBC, HGB, HCT, PLATELET, MCV, NEUTROABS Lab Results Component Value Date SEDRATE 10 05/23/2016 Chem: No results found for: NA, K, CL, CO2, BUN, GLUCOSE, GLUCFASTING Lab Results Component Value Date CALCIUM 9.4 05/23/2016 MAGNESIUM 0.85 05/23/2016 PHOS 3.8 05/23/2016 LFTs: Lab Results Component Value Date ALT 52 (H) 05/21/2016 AST 43 (H) 05/21/2016 ALKPHOS 103 05/21/2016 BILITOT 0.4 05/21/2016 Coags: No results found for: PTT, PT, INR Thyroid: Lab Results Component Value Date TSH 2.23 05/23/2016 Lipids and HgbA1C: No results found for: CHLPL, HDL, CHOLHDL, LDLCHOL, LDLDIRECT, TRIG No results found for: HA1C Vit Lvls: Lab Results Component Value Date [id number] 550 05/23/2016 SFOLATE 12.0 05/23/2016 UA: Lab Results Component Value Date GLUCOSEU Negative 05/24/2016 KETONESUA Negative 05/24/2016 PROTEINUADIP Negative 05/24/2016 BLOODUADIP Small (A) 05/24/2016 LEUKOESTERUA Large (A) 05/24/2016 NITRATEUA Negative 05/24/2016 WBCUA 8 (H) 05/24/2016 (May not represent most recent UA results. See eD-H labs for more details.) Tox: No results found for: ETHANOL, ACTMNPHEN, SALICYLATE, LEAD No results found for: UDAUSCREEN Rx Lvls: No results found for: LITHIUM, CARBAMAZEPIN, VALPROATE, LAMOTRIGINE, CLOZAPINE Assessment: Ruslan Sprague is a 45 y.o. female admitted on 05/21/2016 for anxiety and SI. Ongoing anxiety sx that are playing into sleep, appetite, and mood. Poor sleep may have been due tonicotine patch that she left on. Tolerating medications well. No acute safety concerns on the unit. Current Working Primary Diagnosis: unspecified anxiety disorder R/o premenstrual dysmorphic disorder R/o pheochromocytoma R/o vitamin deficiency Plan: # Anxiety ?? Continue prozac 10mg daily ?? Continue clonazepam 0.25mg daily PRN anxiety ?? Continue nicotine patch 14mg daily ?? Start macrobid 100mg BID for 7 days. Repeat UA is positive for leukocytes. Completed course of bactrim last week. # Disposition: - Home Reasons for continued hospitalization: Warrants ongoing inpatient admission for safety, stabilization, and any other therapeutic intervention that could conceivably improve the patient's condition (including medication management, group psychotherapy, establishing adequate outpatient care). Patient Instruction/Education Provided: Patient provided verbal instructions during rounds regarding the treatment plan. I have reviewed and agree with the multidisciplinary treatment plan. I certify that the patient requires [x] inpatient care for psychiatric treatment that could reasonably be expected to improve the patient's condition and/or diagnostic study. Signed By: Hilaria Dixon MD 05/25/2016 Associated attestation - Maria Luz Crisostomo MD - 05/25/2016 10:26 PM EST I saw and evaluated the patient this morning (05/25) with the resident. See the resident's note fordetails. I have independently performed the hernandez portions of the history and mental status exam. ? I reviewed the patient's history during the visit and I agree with the details as written with any exceptions mentioned in note below. ? My exam confirms the resident's findings with any exceptions mentioned in note below. ? The assessment and plan were formulated in discussion with me, and I agree with them as documented with any exceptions mentioned in note below. ? Major issues addressed/discussed: ??depressive, anxiety symptoms, medication options, psychotherapy, follow up recommendations for post discharge care. ? Per group therapist, she has been attending groups actively. ?? Patient seen this am. She noted yesterday was 'a good day', but, she is feeling 'fearful, in despair; today and has low mood, at times- hopelessness related to that. She was receptive and amenable toCBT psychotherapy techniques utilized. She was well engaged. Team attempted to contact her twice yesterday but he was unreachable at the numbers provided. Left a discrete message with contact information to call back. ? therapeutic milieu. Optimize medication regimen as appropriate. Consider increase in fluoxetine tomorrow to 15mg qday. Utilized supportive, CBT psychotherapy techniques. Psychoeducation provided to patient regarding clinical condition, treatment options, treatment recommendations and plan. Recommend CBT based individual psychotherapy 1-2 times a week post discharge. ? I certify that the patient requires: ? [x] inpatient care for psychiatric treatment that could reasonably be expected to improve the patient's condition and or diagnostic study. ?? * Kyara Oscar MHT - 05/25/2016 10:34 AM EST Inpatient Daily Group Note Group: Goals Group Reviewed principles of behavioral activation, discussed the importance of recognizing avoidance andhow to work towards having behavior be goal focused not mood focused. Attendance: Present Behavior: Quiet and Attentive Mood: Calm Notes: Pt states she will be attending groups today and preparing for discharge home on Saturday. TOSHA MCRAE 05/25/2016 Inpatient Daily Group Note Group: CBT Facilitated discussion about the connection between thinking/feeling/behaving and how these create the lens or mind set that all experiences are filtered through. Discussed how addictive behaviors are fueled when the ???lens?? is closed. Provided examples of how this works and discussed the importance of awareness of where one's lens is and how this impacts a persons interpretations. Attendance: Present Behavior: Quiet and Attentive Therapeutic Work Observed: Moderate Mood: Calm Notes: See above. TOSHA MCRAE 05/25/2016 Inpatient Daily Group Note Group: Stress Management Facilitated discussion about how and when pts recognize they are stressed. Discussion focused on awareness of levels stress and how high stress interferes with clear/rational thinking. Provided ideasof how pts could increase their awareness of early signs of stress. Attendance: Present Behavior: Quiet and Attentive Therapeutic Work Observed: Moderate Mood: Calm Notes: Pt was quiet though attentive. TOSHA MCRAE 05/25/2016 Patient attended the following activities: ____Walk __X__Workshop ____Pet visit Additional pertinent information: * Brenna Correia RN - 05/25/2016 6:14 AM EST Patient stated at 0330 I should have taken that trazodone because I have have been up and down tonight. She requested clonazepam and received it at 0338. She returned to sleep and slept a total of 5.5 hours. * Hilaria Dixon MD - 05/24/2016 12:25 PM EST Psychiatry Inpatient - Progress Note 05/24/2016 ID: Ruslan Sprague is a 45 y.o. female admitted on 05/21/2016 for worsening anxiety and SI. Hospital day 3. Pertinent medical issues being addressed: None active Interval History Patient seen this am. She reports anxiety is still present but she is starting to see the improvement in herself. Her appetite is increasing, she was able to sleep with trazodone, and she states my anxiety isn't through the roof today. She's noticed her anxiety is about her anxiety and she's learning to refocus that energy. Denies side effects with medications. Plans to motivate herself to interact with others, such as walk around the mall, when she's not working. She states she's starting torecognize that her fear leads to isolation which leads to more anxiety. Denies SI, is more future oriented today, denies HI and AVH. Review of Systems +tremors in hands from anxiety Denies nausea, vomiting, diarrhea, constipation, CP, SOB, headache Psych: See above Physical Exam Vitals (24hr Range): Temp: [36.5 ??C (97.7 ??F)] Resp: [17] Heart Rate: [104] BP: (126)/(72) SpO2: [98 %] Patient Vitals for the past 168 hrs: Weight 05/21/16 1709 97.5 kg (214 lb 15.2 oz) Musculoskeletal System: normal gait and balance, ambulates independently, no atrophy and no abnormal movements Mental Status Exam: Appearance: Age appropriate female; casually dressed; appropriately groomed Behavior: no psychomotor retardation or agitation; calm and cooperative; appropriate eye contact Speech: non-pressured; spontaneous; conversational rate and volume Language: fluent [place]; non-profane Mood: I'm making progress Affect: almost full, improving Thought Process: organized, coherent, linear, goal-directed Associations: clear; intact; no MARIA DOLORES Thought Content: passive SI without plan or intent, denies HI Perception: Not seen responding to internal stimuli, denies AVH Orientation: AAOx4 (person, place, time, and situation) Attention/Concentration: attends well to conversation Cognition: appropriate Memory: grossly intact Fund of Knowledge: age appropriate Insight: limited, improving Judgment: limited Current medications: Scheduled: ??? cholecalciferol (Vitamin D3) 2,000 Units Oral Daily ??? nicotine 14 mg Transdermal Daily And ??? Patch Verification 1 patch Transdermal BID And ??? nicotine 1 patch Transdermal Daily ??? FLUoxetine 10 mg Oral Daily ??? atorvastatin 10 mg Oral QPM PRN: clonazePAM, traZODone, ibuprofen, ondansetron Labs: Last 24 Hours: Recent Results (from the past 24 hour(s)) Vitamin D, 25-Hydroxy Result Value Ref Range 25-OH Vit D Total 22 (L) 30 - 100 ng/mL DHEA-sulfate Result Value Ref Range DHEAS 165.9 60.9 - 337.0 mcg/dL TSH Result Value Ref Range TSH 2.23 0.27 - 4.20 mcIU/mL T4, free Result Value Ref Range Free T4 1.29 0.93 - 1.70 ng/dL T3, free Result Value Ref Range T3, Free 2.6 2.0 - 4.4 pg/mL Sedimentation rate Result Value Ref Range Sed Rate 10 0 - 20 mm/hr CRP, acute inflammation Result Value Ref Range CRP 2.1 <=4.9 mg/L Folate, serum Result Value Ref Range Folate Lvl 12.0 4.8 - 24.2 ng/mL Vitamin B12 Result Value Ref Range Vitamin B-12 550 207 - 974 pg/mL Iron and TIBC Result Value Ref Range Iron 75 30 - 150 mcg/dL TIBC 290 250 - 450 mcg/dL Iron Saturation 26 20 - 50 % Ferritin Result Value Ref Range Ferritin 430 (H) 15 - 150 ng/mL Follicle Stimulating Hormone Result Value Ref Range FSH 5.1 mlU/ML Luteinizing Hormone Result Value Ref Range LH 8.0 mlU/ML Magnesium Result Value Ref Range Magnesium 0.85 0.69 - 1.07 mmol/L Calcium Result Value Ref Range Calcium 9.4 8.5 - 10.5 mg/dL Phosphorus Result Value Ref Range Phosphorus 3.8 2.5 - 4.5 mg/dL Psychiatry Labs: Preg: No results found for: HCGQUAL, HCGQUANT Heme: Lab Results Component Value Date WBC 12.4 (H) 05/21/2016 HGB 15.3 05/21/2016 HCT 44.6 05/21/2016 PLATELET 390 (H) 05/21/2016 MCV 86.3 05/21/2016 NEUTROABS 9.43 (H) 05/21/2016 Lab Results Component Value Date SEDRATE 10 05/23/2016 Chem: Lab Results Component Value Date NA 139 05/21/2016 K 4.3 05/21/2016 CL 100 05/21/2016 CO2 22 05/21/2016 BUN 9 05/21/2016 GLUCOSE 116 05/21/2016 Lab Results Component Value Date CALCIUM 9.4 05/23/2016 MAGNESIUM 0.85 05/23/2016 PHOS 3.8 05/23/2016 LFTs: Lab Results Component Value Date ALT 52 (H) 05/21/2016 AST 43 (H) 05/21/2016 ALKPHOS 103 05/21/2016 BILITOT 0.4 05/21/2016 Coags: No results found for: PTT, PT, INR Thyroid: Lab Results Component Value Date TSH 2.23 05/23/2016 Lipids and HgbA1C: No results found for: CHLPL, HDL, CHOLHDL, LDLCHOL, LDLDIRECT, TRIG No results found for: HA1C Vit Lvls: Lab Results Component Value Date [id number] 550 05/23/2016 SFOLATE 12.0 05/23/2016 UA: Lab Results Component Value Date GLUCOSEU Negative 05/21/2016 KETONESUA Negative 05/21/2016 PROTEINUADIP Negative 05/21/2016 BLOODUADIP Large (A) 05/21/2016 LEUKOESTERUA Large (A) 05/21/2016 NITRATEUA Negative 05/21/2016 WBCUA 20 (H) 05/21/2016 (May not represent most recent UA results. See eD-H labs for more details.) Tox: No results found for: ETHANOL, ACTMNPHEN, SALICYLATE, LEAD No results found for: UDAUSCREEN Rx Lvls: No results found for: LITHIUM, CARBAMAZEPIN, VALPROATE, LAMOTRIGINE, CLOZAPINE Assessment: Ruslan Sprague is a 45 y.o. female admitted on 05/21/2016 for anxiety and SI. Improvement in mood and affect, appears less anxious today. Improvement in anxiety may be the result of a combination of recognizing anxiety source, thought challenging, medications, and groups. Tolerating current medication regimen. Attending groups and actively participating, seems motivated for t reatment. No acute safety concerns. Current Working Primary Diagnosis: unspecified anxiety disorder R/o premenstrual dysmorphic disorder R/o pheochromocytoma R/o vitamin deficiency Plan: # Anxiety ?? Continue prozac 10mg daily ?? Continue clonazepam 0.25mg daily PRN anxiety ?? Continue nicotine patch 14mg daily # Disposition: - Home Reasons for continued hospitalization: Warrants ongoing inpatient admission for safety, stabilization, and any other therapeutic intervention that could conceivably improve the patient's condition (including medication management, group psychotherapy, establishing adequate outpatient care). Patient Instruction/Education Provided: Patient provided verbal instructions during rounds regarding the treatment plan. I have reviewed and agree with the multidisciplinary treatment plan. I certify that the patient requires [x] inpatient care for psychiatric treatment that could reasonably be expected to improve the patient's condition and/or diagnostic study. Signed By: Hilaria Dixon MD 05/24/2016 Associated attestation - Maria Luz Crisostomo MD - 05/25/2016 6:24 AM EST I saw and evaluated the patient this morning (05/24) with the resident. See the resident's note fordetails. I have independently performed the hernandez portions of the history and mental status exam. ? I reviewed the patient's history during the visit and I agree with the details as written with any exceptions mentioned in note below. ? My exam confirms the resident's findings with any exceptions mentioned in note below. ? The assessment and plan were formulated in discussion with me, and I agree with them as documented with any exceptions mentioned in note below. ? Major issues addressed/discussed: ??depressive, anxiety symptoms, medication options, psychotherapy, follow up recommendations for post discharge care. ? Per group therapist, she has been attending groups actively. Patient seen this am. She was receptive and amenable to psychotherapy techniques utilized. She exhibited overall improved affect, although was tearful at one point during interview.?? Various lab tests such as LH, FSH, DHEAS, TIBC, Vitamin d, b12, folate, t3, t4, ESR wnl. Serum ferritin high. Lab results were discussed with patient. ? therapeutic milieu. Optimize medication regimen as appropriate. Consider increase in fluoxetine tomorrow to 15mg qday. Utilized supportive, CBT psychotherapy techniques. Psychoeducation provided to patient regarding clinical condition, treatment options, treatment recommendations and plan. Recommend CBT based individual psychotherapy weekly post discharge. ? I certify that the patient requires: ? [x] inpatient care for psychiatric treatment that could reasonably be expected to improve the patient's condition and or diagnostic study. ?? * Crista Grover Dillon, MS - 05/24/2016 10:32 AM EST Inpatient Daily Group Note Group: Goals; Reviewed BA, Avoidance, daily schedule, patients' progress and goals and read daily text. Attendance: Left Early to meet with team Behavior: Expressive Therapeutic Work Observed: Moderate Mood: Anxious Notes: Patient left before sharing goal for the day. GROVER TOBIN MS 05/24/2016 Inpatient Daily Group Note Group: Communication: Reviewed factors that interfere with effective communication, styles of communication and had participants identify what styles they use and evaluate changes to make going forward. Attendance: Present Behavior: Expressive Therapeutic Work Observed: Substantial Mood: Anxious Notes: Patient engaged actively discussing how her goal is to please everybody else which increasesher anxiety and panic because of it being impossible. GROVER TOBIN MS 05/24/2016 Inpatient Daily Group Note Group: TAC Focus of group was generating list of five personal strengths and one goal for hospitalization, passsng list to peer in order to receive feedback on how strengths could be used to achieve goal. Attendance: Present Behavior: Gave Feedback, Helpful to Others and Conversational Therapeutic Work Observed: Substantial Mood: Calm Notes: Active in above challenge giving and receiving feedback to peers. KYARA VO 05/24/2016 Patient attended the following activities: _x___Walk ____Workshop ____Pet visit Additional pertinent information: * Brenna Correia RN - 05/24/2016 6:03 AM EST Ruslan complained of insomnia after receiving the klonopin and trying to listen to a relaxation cd. She requested the trazodone and received trazodone 50 mg at 2341. She appeared to be asleep by 0030 and appeared to sleep 6 hours as of 0600. * Hilaria Dixon MD - 05/23/2016 2:23 PM EST Psychiatry Inpatient - Progress Note 05/23/2016 ID: Ruslan Sprague is a 45 y.o. female admitted on 05/21/2016 for worsening anxiety and SI. Hospital day 2. Pertinent medical issues being addressed: None active Interval History Patient seen this am. She reports continued anxiety, feeling like an adrenaline biggs that won't goaway with expectation that it should have resolved overnight. She seems like she's worrying about worrying and agrees with this assessment. Patient is concerned that there may be a medical componentto her shaking hands. She wakes up with this anxiety as soon as she opens her eyes in the morning. She states she used the relaxation CDs for only a few minutes yesterday. Reports hopelessness thatthis will never get better and has passive SI as a result. Denies HI, AVH. She reports not smoking tobacco but does use electronic vapor cigarettes. Review of Systems +tremors in hands Denies nausea, vomiting, diarrhea, constipation, CP, SOB, headache Psych: See above Physical Exam Vitals (24hr Range): Temp: [36.4 ??C (97.5 ??F)] Resp: [16] Heart Rate: [89] BP: (119)/(78) SpO2: -- Patient Vitals for the past 168 hrs: Weight 05/21/16 1709 97.5 kg (214 lb 15.2 oz) Musculoskeletal System: normal gait and balance, ambulates independently, no atrophy and no abnormal movements Mental Status Exam: Appearance: Age appropriate female; casually dressed; appropriately groomed Behavior: no psychomotor retardation or agitation; calm and cooperative; appropriate eye contact Speech: non-pressured; spontaneous; conversational rate and volume Language: fluent [place]; non-profane Mood: wired Affect: restricted, anxious Thought Process: organized, coherent, linear, goal-directed Associations: clear; intact; no MARIA DOLORES Thought Content: passive SI without plan or intent, denies HI Perception: Not seen responding to internal stimuli, denies AVH Orientation: AAOx4 (person, place, time, and situation) Attention/Concentration: attends well to conversation Cognition: appropriate Memory: grossly intact Fund of Knowledge: age appropriate Insight: limited Judgment: limited Current medications: Scheduled: ??? nicotine 14 mg Transdermal Daily And ??? Patch Verification 1 patch Transdermal BID And ??? [START ON 05/24/2016] nicotine 1 patch Transdermal Daily ??? FLUoxetine 10 mg Oral Daily ??? atorvastatin 10 mg Oral QPM PRN: clonazePAM, traZODone, ibuprofen, ondansetron Labs: Last 24 Hours: Recent Results (from the past 24 hour(s)) DHEA-sulfate Result Value Ref Range DHEAS 165.9 60.9 - 337.0 mcg/dL Sedimentation rate Result Value Ref Range Sed Rate 10 0 - 20 mm/hr Folate, serum Result Value Ref Range Folate Lvl 12.0 4.8 - 24.2 ng/mL Vitamin B12 Result Value Ref Range Vitamin B-12 550 207 - 974 pg/mL Iron and TIBC Result Value Ref Range Iron 75 30 - 150 mcg/dL TIBC 290 250 - 450 mcg/dL Iron Saturation 26 20 - 50 % Ferritin Result Value Ref Range Ferritin 430 (H) 15 - 150 ng/mL Psychiatry Labs: Preg: No results found for: HCGQUAL, HCGQUANT Heme: Lab Results Component Value Date WBC 12.4 (H) 05/21/2016 HGB 15.3 05/21/2016 HCT 44.6 05/21/2016 PLATELET 390 (H) 05/21/2016 MCV 86.3 05/21/2016 NEUTROABS 9.43 (H) 05/21/2016 Lab Results Component Value Date SEDRATE 10 05/23/2016 Chem: Lab Results Component Value Date NA 139 05/21/2016 K 4.3 05/21/2016 CL 100 05/21/2016 CO2 22 05/21/2016 BUN 9 05/21/2016 GLUCOSE 116 05/21/2016 Lab Results Component Value Date CALCIUM 9.5 05/21/2016 LFTs: Lab Results Component Value Date ALT 52 (H) 05/21/2016 AST 43 (H) 05/21/2016 ALKPHOS 103 05/21/2016 BILITOT 0.4 05/21/2016 Coags: No results found for: PTT, PT, INR Thyroid: Lab Results Component Value Date TSH 2.79 05/21/2016 Lipids and HgbA1C: No results found for: CHLPL, HDL, CHOLHDL, LDLCHOL, LDLDIRECT, TRIG No results found for: HA1C Vit Lvls: Lab Results Component Value Date [id number] 550 05/23/2016 SFOLATE 12.0 05/23/2016 UA: Lab Results Component Value Date GLUCOSEU Negative 05/21/2016 KETONESUA Negative 05/21/2016 PROTEINUADIP Negative 05/21/2016 BLOODUADIP Large (A) 05/21/2016 LEUKOESTERUA Large (A) 05/21/2016 NITRATEUA Negative 05/21/2016 WBCUA 20 (H) 05/21/2016 (May not represent most recent UA results. See eD-H labs for more details.) Tox: No results found for: ETHANOL, ACTMNPHEN, SALICYLATE, LEAD No results found for: UDAUSCREEN Rx Lvls: No results found for: LITHIUM, CARBAMAZEPIN, VALPROATE, LAMOTRIGINE, CLOZAPINE Assessment: Ruslan Sprague is a 45 y.o. female admitted on 05/21/2016 for anxiety and SI. Minimal change in intensity of anxiety. Medication risks, benefits, and side effects for gabapentinwere reviewed with the patient, but patient is concerned about feeling woozy and lightheaded likewhen she took hydroxyzine 25mg. Short term clonazepam use was discussed and patient agreed to startthis medication. Considering this is the second episode of anxiety like this in the patient's history, it would be reasonable to do a medical workup. Her anxiety may also be a result of nicotine withdrawal. Current Working Primary Diagnosis: unspecified anxiety disorder R/o premenstrual dysmorphic disorder R/o pheochromocytoma R/o vitamin deficiency Plan: # Anxiety ?? Continue prozac 10mg daily ?? Start clonazepam 0.25mg BID PRN anxiety ?? Start nicotine patch 14mg daily # Disposition: - Home Reasons for continued hospitalization: Warrants ongoing inpatient admission for safety, stabilization, and any other therapeutic intervention that could conceivably improve the patient's condition (including medication management, group psychotherapy, establishing adequate outpatient care). Patient Instruction/Education Provided: Patient provided verbal instructions during rounds regarding the treatment plan. I have reviewed and agree with the multidisciplinary treatment plan. I certify that the patient requires [x] inpatient care for psychiatric treatment that could reasonably be expected to improve the patient's condition and/or diagnostic study. Signed By: Hilaria Dixon MD 05/23/2016 Associated attestation - Maria Luz Crisostomo MD - 05/25/2016 6:26 AM EST I saw and evaluated the patient this morning (05/23) with the resident. See the resident's note fordetails. I have independently performed the hernandez portions of the history and mental status exam. ? I reviewed the patient's history during the visit and I agree with the details as written with any exceptions mentioned in note below. ?? My exam confirms the resident's findings with any exceptions mentioned in note below. ?? The assessment and plan were formulated in discussion with me, and I agree with them as documented with any exceptions mentioned in note below. ?? Major issues addressed/discussed: ??depressive, anxiety symptoms, medication options, psychotherapy, follow up recommendations for post discharge care. ?? Patient seen this am. She was receptive and amenable to psychotherapy techniques utilized. She exhibited an anxious affect.? therapeutic milieu. Optimize medication regimen as appropriate. Utilized supportive, CBT psychotherapy techniques. Psychoeducation provided to patient regarding clinical condition, treatment options, treatment recommendations and plan. Recommend CBT based individual psychotherapy weekly post discharge. ? I certify that the patient requires: ?? [x] inpatient care for psychiatric treatment that could reasonably be expected to improve the patient's condition and or diagnostic study. ?? * Grover Tobin, MS - 05/23/2016 10:28 AM EST Inpatient Daily Group Note Group: Goals; Reviewed BA, Mood Math, daily schedule, patient's progress and goals and read daily text. Attendance: Present Behavior: Expressive Therapeutic Work Observed: Substantial Mood: Anxious Notes: Patient has goal to do the meetings and listen to meditation stuff. Patient described having anxiety in her life and always being able to push through it and forcing herself to do the thingsshe felt anxious about. She said that now she does not know what to do because her old strategy does not work anymore and she described looking for a quick fix by focusing on it being caused by medical issue and at the same time realizing it might not be so simple. GROVER TOBIN, MS 05/23/2016 Patient attended the following activities: _x___Walk _x___Workshop ____Pet visit Additional pertinent information:Group facilitated by artist in residence. Patient engaged actively. Inpatient Daily Group Note Group: Change Group Focus of discussion was on the process of change. Reviewed: how change is a process not an event, that you can???t measure progress by how you feel and that you first have to change your behaviors before your emotions catch up. Discussed how patterns of behavior develop and how challenging they areto overcome. Encouraged pts to be active in practicing coping strategies to challenge their currentpatterns of behavior. Discussed the concept of relapse being part of the recovery process and ways to use information from relapse to change behaviors moving forward. Attendance: Present Behavior: Quiet and Attentive Therapeutic Work Observed: Moderate Mood: Calm Notes: See above. KYARA OSCAR, [facility] [place] 05/23/2016 Patient attended the following activities: ____Walk __x__Workshop ____Pet visit Additional pertinent information: * Yareli Yee RN - 05/23/2016 2:25 AM EST PRN medication given: Pt came to nursing station at 0130, stating that she had been laying there awake for 4 hours. She requested medication for sleep. Trazodone 50 mg was given, per AUG. Pt was advised to alert staff during room checks when she is awake on rounds. * Anna Ahumada MSW - 05/22/2016 1:16 PM EST OFFICE OF CARE MANAGEMENT PSYCHOSOCIAL ASSESSMENT Present at Interview: Patient Date: May 22, 2016 1. 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 Please refer to admit note for details. 2. Family Constellation, Pertinent History: Patient is one of 3 children born and raised in family of origin. Father is at age 56. Mother age 64 lives in [place]. Siblings are Miladys age 44 and Marshall age 40 also in [place]. Patient has daily contact with her Mother and frequent contact with her siblings. Patient was born and raised in [place] and described childhood as fun. Extended family available and involved. Patient left home at age 20 to move in with life partner Clayton age 47. Patient and partner have been together for 29 years, one son age 24 in [place] ( with one daughter). Patient is very close to her son and has frequent contact with him and his family. Patient reports very good relationship with partner. 3. Patient's understanding/adjustment to illness, coping skills & weaknesses: Patient identified coping skills as woodworking and wood crafts, watch TV in evening, used to read a lot, garden in the summer. Strengths identified as make people happy, hard worker, reliable and dependable, dedicated. Weaknesses identified as low self esteem (around health issues), take on too much, stretch myself too thin at times, trying to worry about me before I worry about other people. 4. Assessment Pt's medical needs: () Understands Pt's medical needs () Understands Pt's emotional needs (x) Can provide support of pt. (x) Family coping: Comments: Partner is identified as very supportive. 5. Current social supports including spiritual support: Mother, Otf, friends, not active in sikhism or community. 6. Current living situation concerns: () Yes (x) No Comments: 7.Chemical abuse or other abuse in patient & family: () Yes (x) No Comments: 8. Pt/Family mental health concerns: (x) Yes () No Comments: Patient is very concerned about events leading up to hospitalization. 9. Financial concerns: (x) Yes () No Comments: Patient and partner struggle with limited income (bills get paid but it is pay check to pay check). 10. Legal concerns: () Yes (x) No Comments: 11. Specialized agency involvement: (x) Mental Health Services () Protective Services () Home Health Other: Needs referral in her community. 12. Advance Directives: () Yes (x) No 13. 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 Stressors: () Limited Support () Obtaining Medication () Financial Concerns () Marital Conflict () Family Conflict () Illness of Family Member () Insurance () Substance Abuse () School Issues () Extensive Home Care Need () Employment Issues () Transportation (x) Inadequate Coping Skills () Loss/ () Frequent Hospitalizations () Sexuality () Change in Home Environment () Socialization Issues (x) Concerns about Diagnosis (x) Mental health Issues 16. Assessment: Pleasant, engageable female, easily brought to tears as she relates events leading up to hospitalization. Patient identifies increasing anxiety as primary trigger and is hopeful that treatment team will make medication adjustments that will address her symptoms. Patient denies any cu rrent self harm urges and states that she can keep herself safe both in hospital and community. Patient is motivated to effect change and states that she would like a referral to outpatient counselorin her community. 17. Plan/Goals: Specify: Psychosocial Assessment (x) Crisis Intervention/Counseling: Assist with discharge planning () Conflict Resolution: (x) Education/Support of Treatment Plan: () Legal Ethical Issues: (x) Community/Financial Resource Referral: () Advance Directive: () Other: Plan discussed with patient/family (x) Yes () No Plan agreed upon by patient/family (x) Yes () No * Kyara Oscar MHT - 05/22/2016 10:21 AM EST Inpatient Daily Group Note Group: Goals Group Reviewed principles of behavioral activation, discussed the importance of recognizing avoidance andhow to work towards having behavior be goal focused not mood focused. Attendance: Present Behavior: Quiet and Attentive Mood: Calm Notes: Pt states she will plan to attend groups today. TOSHA MCRAE 05/22/2016 Inpatient Daily Group Note Group: Relaxation Group Provided pts with rationale for practicing mindful breathing and led them through two different exercises. Attendance: Present Behavior: Quiet Therapeutic Work Observed: Moderate Mood: Calm Notes: Pt participated in mindful breathing exercise. TOSHA MCRAE 05/22/2016 Inpatient Daily Group Note Group: Interpersonal Issues Reviewed the difference between internal and external communication, provided examples of each. Discussed how the interaction between these two impacts a persons ability to effectively navigate interpersonal relationships. Reviewed ways that substance use/abuse impacts this as well. Discussed non verbal communication and it???s impact on how we ???package?? information. Provided examples. Attendance: Present Behavior: Quiet and Attentive Therapeutic Work Observed: Moderate Mood: Calm Notes: See above. TOSHA MCRAE 05/22/2016 documented in this encounter H&P Notes * Hilaria Dixon MD - 05/21/2016 4:24 PM EST Psychiatry - Admission History & Physical Note Name: Ruslan Sprague Age: 45 y.o. 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 Female presents to [facility] Emergency Department with increased anxiety since 05/16/16 and suicidal ideation with plan to overdose on medications. History of Presenting Illness (location, quality, severity, duration, timing, context, modifying factors, and associated signs & symptoms): Patient reports on 05/16/16 she went to see her PCP because she thought she might have a UTI. At that appointment she talked with her PCP about a couple of recent incidents of increased anxiety. She was started on Sertraline 50mg which she took the first does that day. She reports that night she was nauseous and did not feel well. She slept 4-5 hours and woke up feeling like I was zinging on caffeine and feeling extremely anxious. She took another dose of Sertraline on 05/17/16 but felt worse and vomited. Additional symptoms included decreased appetite, palpitations, dizziness, headache, generalized weakness, difficulty concentrating, racing thoughts, pacing and being afraid to drive or leave her home. She called her PCP on 05/17/16 and she was told to stop taking the Sertraline. She was prescribed Propranolol 40mg PRN. She reports she has not felt any relief from the anxiety and has begun feeling if she has to live with how she is feeling right now, she would rather be . She began thinking about overdosing rather than live this way. Due to her symptoms she has not worked in the last 3 days. She reports 6 months ago she had a very similar episode that lasted 7 weeks. It started when she went to her PCP feeling she had a UTI which she did have and was treated for. At that time she had been taking Sertraline 50mg for the last 20 years and she had begun taking a medication by injection for her psoriasis. Her PCP felt her symptoms could be related to the injections so her injections and the Sertraline were both stopped and she was put on propranolol and lorazepam. Since then she has felt fine until 05/16/16. She has no prior suicidal ideation, suicide attempt, psychiatric hospitalization or mental health therapy. Psychiatric Review of Systems: Sustained Depressed Mood: Endorses Sustained Elevated Mood: Denies Sustained Irritable Mood: Denies Flashbacks: Denies Nightmares: Denies Panic Attacks: Denies Chronic Worry: Denies Psychotic Symptoms: Denies Obsessions/compulsions: Denies Violence: Denies Self Harm: Denies Past Psychiatric History: Prior diagnoses: Depression, anxiety Past hospitalization and location: none Suicide attempts: none Past psychiatric medications (include dose, length of use, response, reason for stopping): Sertraline 50mg stopped 6 months ago, restarted on 05/16/16 but discontinued again on 05/18/16. Substance Use History/Treatment: Currently occasionally uses an electronic cigarette. History of marijuana use in high school but none in 20 years. Denies all other substances. Social History: Patient is and lives in [place], [place] with her . Her mother and adult son live in the [place], [place] area. History of Abuse/Neglect: Denies Legal History: Denies Substance Use History/Treatment: Tobacco: Tobacco Use Status (Tob-1) Have you used tobacco products in the past 30 days? Denies Tobacco Use Treatment (Tob-2: Medication) Would you like a medication to help with tobacco cessation? No/Not applicable Tobacco Use Treatment (Tob-2: Counseling) Would you like counseling for help with quitting tobacco?No/Not applicable AUDIT-C Screening: How often do you have a drink containing alcohol? Never - (0 pt) How many standard drinks containing alcohol do you have a typical day? 1 or 2 - (0pt) How often do you have six or more drinks on one occasion? Never - (0pt) Total Score: 0 Prior to Admission Medications: No current facility-administered medications on file prior to encounter. Current Outpatient Prescriptions on File Prior to Encounter Medication Sig Dispense Refill ??? sulfamethoxazole-trimethoprim (BACTRIM DS) 800-160 mg Tablet TAKE ONE TABLET BY MOUTH TWICE A DAY 0 ??? pravastatin (PRAVACHOL) 40 mg Tablet TAKE 1 TABLET ONCE A DAY 1 ??? DOVONEX 0.005 % Crea Apply to affected areas twice daily Saturday-Saturday 60 g 3 ??? clobetasol (TEMOVATE) 0.05 % ointment Apply to affected areas twice daily Saturday and Saturday 30 g 3 ??? Etanercept (ENBREL SURECLICK) 50 mg/mL (0.98 mL) PnIj Inject 50 mg subcutaneously twice a week. ??? methoxsalen (OXSORALEN) 10 mg Cap Take 10 mg by mouth three times a week. 1/2 hour prior to light treatment ??? fluocinolone (DERMA-SMOOTHE) 0.01 % external oil 1 Appl(s), Top, as directed ??? triamcinolone (KENALOG) 0.1 % cream 1 Appl(s), Top, Twice daily ??? atorvastatin (LIPITOR) 80 mg tablet 80MG = 1 Tablet(s), PO, Once daily Allergies: No Known Allergies Problem List: Patient Active Problem List Diagnosis Code ??? Psoriasis L40.9 Past Medical/Surgical History: No past medical history on file. Past Surgical History Procedure Laterality Date ??? 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 Vital signs No data found. Musculoskeletal System: Gait and station: normal gait and balance, ambulates independently, no atrophy and no abnormal movements (See also: MSE: Motor/behavior) GEN No acute distress HEAD Normocephalic and atraumatic EYES PERRL, EOMI ENT Moist mucous membranes NECK No LAD CV RRR and no M/G/R PULM Clear to auscultation bilaterally ABD Soft, NT, ND and +BS EXTR Good peripheral pulses NEURO Grossly nonfocal and CN II-XII grossly intact SKIN Psoriatic rashes on b/l knees, elbows, hands, feet Mental Status Evaluation: Appearance: Age appropriate female; appropriately groomed; dressed in hospital gown Behavior: No psychomotor retardation or agitation; calm and cooperative; appropriate eye contact Speech: Normal volume, rate, tone, prosody Language: [place], fluent, non-profane Mood: anxious Affect: restricted Thought Process: Organized, coherent, logical, goal-oriented Associations: Intact, no MARIA DOLOERS Thought Content: SI with plan to OD, denies homicidal ideation Perception: Denies AVH, does not appear to be responding to internal stimuli Orientation: Oriented to person, place, time, and situation Attention/Concentration: Attends well to conversation Cognition: Grossly intact Memory: Grossly intact Fund of Knowledge: Appropriate for age Insight: Limited Judgement: Limited Pertinent Labs/Studies: Recent Results (from the past 24 hour(s)) POCT urine Result Value Ref Range POC Urine HCG Negative Negative - Negative POC Control Internal Controls Acceptable Hepatic Function Panel Result Value Ref Range Total Protein 8.1 (H) 6.1 - 8.0 gm/dL Albumin 4.8 3.2 - 5.2 gm/dL AST 43 (H) 0 - 30 unit/L ALT 52 (H) 0 - 30 unit/L Alk Phos 103 40 - 104 unit/L Total Bilirubin 0.4 0.2 - 1.3 mg/dL Bili, Direct 0.1 0.0 - 0.3 mg/dL Basic Metabolic Panel (non-fasting) Result Value Ref Range Glucose Lvl 116 65 - 199 mg/dL BUN 9 8 - 18 mg/dL Creatinine 0.86 0.70 - 1.20 mg/dL Sodium 139 135 - 145 mmol/L Potassium 4.3 3.5 - 5.0 mmol/L Chloride 100 98 - 107 mmol/L CO2 22 22 - 31 mmol/L Anion Gap 17 (H) 5 - 15 mmol/L Calcium 9.5 8.5 - 10.5 mg/dL Estimated GFR >60 >=60 TSH Result Value Ref Range TSH 2.79 0.27 - 4.20 mcIU/mL Hemogram Result Value Ref Range WBC 12.4 (H) 4.0 - 9.5 x10(3)/mcL RBC 5.17 4.00 - 5.21 x10(6)/mcL Hemoglobin 15.3 11.7 - 15.5 gm/dL Hematocrit 44.6 35.7 - 45.8 % MCV 86.3 82.6 - 94.4 fL MCH 29.6 27.1 - 32.0 pg MCHC 34.3 31.7 - 35.0 gm/dL Platelets 390 (H) 145 - 357 x10(3)/mcL RDWSD 39.6 37.0 - 46.0 fL RDWCV 12.4 11.5 - 14.1 % MPV 11.0 7.6 - 12.9 fL nRBC % Auto 0.0 % nRBC Abs Auto 0.000 0.000 - 0.000 x10(3)/mcL Differential, Automated Result Value Ref Range Neutrophils % 75.8 % Neutr Abs (ANC) 9.43 (H) 1.70 - 6.10 x10(3)/mcL Lymphocytes % 17.8 % Lymphocytes Abs 2.2 0.9 - 3.2 x10(3)/mcL Monocytes % 4.9 % Monocyte Abs 0.6 0.3 - 0.9 x10(3)/mcL Eosinophils % 0.5 % Eosinophils Abs 0.1 0.0 - 0.4 x10(3)/mcL Basophils % 0.5 % Basophils Abs 0.1 0.0 - 0.1 x10(3)/mcL Immature Gran % 0.50 % Belinda Gran Abs 0.06 (H) 0.00 - 0.04 x10(3)/mcL Urinalysis with reflex Culture Result Value Ref Range Glucose UA Negative Negative mg/dL Protein UA Negative Negative mg/dL Bilirubin UA Negative Negative mg/dL Urobilinogen UA Normal Normal mg/dL pH UA 6.0 5.0 - 8.0 Blood UA Large (A) Negative mg/dL Ketones UA Negative Negative mg/dL Nitrite UA Negative Negative Leukocytes UA Large (A) Negative mcL Appearance UA Clear Clear Spec [place] UA 1.008 1.002 - 1.030 Color UA Yellow Yellow RBC UA 5 (H) 0 - 4 /HPF WBC UA 20 (H) 0 - 5 /HPF Bacteria UA Rare (A) None /HPF Squam Epith UA 3 <=4 /HPF Amorph Anai UA Rare (A) None /HPF Culture Reflexed Yes Rapid Drug Screen, Urine Result Value Ref Range JOJO Marijuana Metabolites Scr None Detected None Detected JOJO Phencyclidine Scr None Detected None Detected JOJO Cocaine Metabolites Scr None Detected None Detected JOJO Methamphetamines Scr None Detected None Detected JOJO Opiates Scr None Detected None Detected JOJO Amphetamines Scr None Detected None Detected JOJO Benzodiazepines Scr None Detected None Detected JOJO Tricyclics Scr None Detected None Detected JOJO Methadone Scr None Detected None Detected JOJO Barbiturates Scr None Detected None Detected JOJO Oxycodone Scr None Detected None Detected JOJO Propoxyphene Scr None Detected None Detected JOJO Buprenorphine Scr None Detected None Detected JOJO Adulterants Screen None Detected None Detected Most Recent Metabolic Labs: Lab Results Component Value Date TSH 2.79 05/21/2016 No results found for: HA1C No results found for: CHLPL, HDL, CHOLHDL, LDLCHOL, LDLDIRECT, TRIG Assessment: Ruslan Sprague is a 45 y.o. female with PPHx of depression and anxiety who presents to [facility] for worsening anxiety. Patient was well maintained for 20 years on 50mg sertraline but was discontinued earlier this year and then restarted for 3 days and then re-discontinued. She was then started on propanolol and lorazepam for anxiety. This is not a practical medication approach to her anxiety and ativanand propanolol should be discontinued. Patient reports not taking ativan recently. Since she has associated sertraline with negative emotions and is exhibiting increasing anxiety on it, it would be more beneficial to utilize another SSRI since patient is SSRI naive beside sertraline and has had good results with it in the past. Safety Risk Assessment: Patient warrants inpatient admission for safety, stabilization, and any other therapeutic intervention that could conceivably improve the patient's condition (including medication management, group psychotherapy, establishing adequate outpatient care). DSM V Diagnosis: unspecified depressive disorder, unspecified anxiety disorder Clinical Global Impression: Severity of illness: Considering your total clinical experience with this particular population, how mentally ill is the patient at this time? 5 = Markedly ill Immediate Treatment Plan: ?? Admit patient to psychiatry unit for safety, stabilization, and medication management. ?? Restrict to Unit (RTU) activity level on admission. ?? Discussed Advanced Directives and Code Status. The patient wishes to be Full Code. ?? Diet: Regular ?? Check standard admission labs: CBC, BMP, TSH, UA, Urine Drug Screen, Test ?? Primary team will contact outpatient prescriber and therapist for collateral information and continuity of care. ?? Medications: Prozac 20mg Medication risks, benefits, and side effects were reviewed with the patient. Patient stated verbal understanding and agreed to start medication. ?? Continue bactrim per home regimen (3 doses remaining) ?? Start zofran PRN nausea Preventative/Prophylaxis: ?? Pneumovax and Influenza immunizations to be given as needed. ?? DVT prophylaxis not indicated: patient is at low risk for VTE and is fully ambulatory. ?? If currently a smoker: advised about smoking cessation, will provide cessation material and support. Disposition: ?? I certify that the patient requires inpatient care for psychiatric treatment that could reasonably be expected to improve the patient's condition and/or diagnostic study. ?? Estimated length of time needed for hospital staff is 5-8 days. ?? Proposed post-discharge care will likely include establishing follow up community care prior to discharge. Hilaria Dixon MD 05/21/2016 Associated attestation - Maria Luz Crisostomo MD - 05/22/2016 6:52 PM EST H&P-PSYCHIATRY TEACHING PHYSICIAN INVOLVEMENT Location: Inpatient Unit Attending Physician: Maria Luz Crisostomo MD I saw and evaluated the patient this morning without the resident within 24 hrs of admission. See the resident's note for details. I have independently performed the hernandez portions of the history and mental status exam. I reviewed the patient's history during the visit and I agree with the details as written with any exceptions mentioned in note below. My exam confirms the resident's findings with any exceptions mentioned in note below. The assessment and plan were not formulated in discussion with me, and I agree with them as documented with any exceptions mentioned in note below. Major issues addressed/discussed: depressive, anxiety symptoms, medication options, psychotherapy, follow up recommendations for post discharge care. Per nursing report: she slept 9 hrs last night. Received hydroxyzine last night and another dose this am. Patient seen this am. She noted she was doing well until a week ago when one dose of sertraline caused unusual anxiety. She reports feeling 'very anxious'. She noted she 'keep(s) having fear- am I going to get better here'. She noted she is coming to terms with being on a psychiatric unit. She reported energy level as 'none', 'a little bit of sad' mood. She noted passive suicidal thoughts. She noted she has 'never felt suicidal before'. She noted she know(S) wshe) woudlnt hurt self ' because 'have an amazing support system with and family'. She noted being shocked by her passive suicidal thoughts. She noted she is 'a pretty anxious' person at baseline but feels that current episode of anxiety isdifferent than her baseline. She reports she typically feels 'extremely anxious before periods'. She noted another stressor as father's 8 year anniversary recently. She exhibits anxious affect; stated anxiety is partly because of being in the hospital. Check vitamin d, b12 levels per patient request. Therapeutic milieu. Optimize medication regimen as appropriate. Decreasing fluoxetine to 10 mg qday as patient reporting 'head feeling whoozy' with the 20 mg dose. Consider adding buspirone for anxiety symptoms. Utilized supportive psychotherapy techniques. Psychoeducation provided to patient regarding clinical condition, treatment options, treatment recommendations and plan. I certify that the patient requires: [x] inpatient care for psychiatric treatment that could reasonably be expected to improve the patient's condition and or diagnostic study. documented in this encounter Miscellaneous Notes * Plan of Care - Bisi Mann RN - 05/26/2016 7:48 PM EST Problem: Patient Care Overview Goal: Interdisciplinary Rounds/Family Conf Outcome: Ongoing (Interventions Implemented as Appropriate) 05/25/16 1136 Interdisciplinary Rounds/Family Conf Participants manager case;patient;nursing;physician OUTCOME EVALUATION NOTE: OUTCOME SUMMARY: Patients family was here most of the afternoon and into the evening. She went off the unit with them and appeared bright when they were here. She denies depression and rates her anxiety as 3-4/10. She denies thoughts of wanting to harm herself or others. Her appetite has improved. She played cards with a group of her peers this evening. Patient is working on her relapse prevention plan and hopingfor d/c tomorrow. PLAN MOVING FORWARD: Groups to increase coping skills. Monitor mood and behavior on the unit. Assist patient with relapse plan as needed. INDIVIDUALIZED FALL PREVENTION INTERVENTIONS: low fall risk, steady gait Patient-specific fall risk factors per assessment: [current deficits]: Medical issue Assistance [level of assistance required for transfers and ambulation]: independent Supervision [direct monitoring required during toileting and ADLs]: independent Surveillance [continuous indirect monitoring]: 30 minute safety checks, escort Patient-specific fall prevention interventions for sensory deficits provided, if applicable: [X] N/A CPG GOAL OUTCOME EVALUATION: * Plan of Care - Harry Singh RN - 05/26/2016 1:48 PM EST Problem: Patient Care Overview Goal: Plan of Care Review Outcome: Ongoing (Interventions Implemented as Appropriate) 05/25/162057 Coping/Psychosocial Plan Of Care Reviewed With patient Plan of Care Review Progress improving OUTCOME EVALUATION NOTE: OUTCOME SUMMARY: Patient was pleasant and cooperative today. She denied suicidal ideation. She reported her anxiety was a little better. Her affect was full range. She was social with her peers. She attended groups. PLAN MOVING FORWARD: Continue present medications. Encourage groups. INDIVIDUALIZED FALL PREVENTION INTERVENTIONS: Patient-specific fall risk factors per assessment: [current deficits]: Secondary diagnosis Assistance [level of assistance required for transfers and ambulation]: independent Supervision [direct monitoring required during toileting and ADLs]: Independent Surveillance [continuous indirect monitoring]: 30 minute checks Patient-specific fall prevention interventions for sensory deficits provided, if applicable: [X] N/A CPG GOAL OUTCOME EVALUATION: * Plan of Care - Bisi Mann RN - 05/25/2016 8:58 PM EST Problem: Patient Care Overview Goal: Interdisciplinary Rounds/Family Conf Outcome: Ongoing (Interventions Implemented as Appropriate) 05/25/16 1136 Interdisciplinary Rounds/Family Conf Participants manager case;patient;nursing;physician OUTCOME EVALUATION NOTE: OUTCOME SUMMARY: Patient has been out of her room and social with other patients. She had a visit from family and went off the unit with them. She denies depression but again has many of the symptoms, tearful, appetite and sleep issues. She rates her anxiety as 7.5/10 and requested PRN clonazepam before her son andhis family arrived. She denies thoughts of wanting to harm herself or others. PLAN MOVING FORWARD: Groups to increase coping skills. Monitor mood and behavior on the unit. INDIVIDUALIZED FALL PREVENTION INTERVENTIONS: Low fall risk, steady gait Patient-specific fall risk factors per assessment: [current deficits]: Medical issue Assistance [level of assistance required for transfers and ambulation]: independent Supervision [direct monitoring required during toileting and ADLs]: independent Surveillance [continuous indirect monitoring]: 30 minute safety checks, escort Patient-specific fall prevention interventions for sensory deficits provided, if applicable: [X] N/A CPG GOAL OUTCOME EVALUATION: * Plan of Care - César Grant RN - 05/25/2016 12:12 PM EST Problem: Patient Care Overview Goal: Plan of Care Review Outcome: Ongoing (Interventions Implemented as Appropriate) 05/25/16 1139 Coping/Psychosocial Plan Of Care Reviewed With patient Plan of Care Review Progress improving OUTCOME EVALUATION NOTE: OUTCOME SUMMARY: Pt reported she did not sleep very well. Denies depression but has a flat affect and on the verge of tears when discussing her anxiety. Reported her anxiety 12/24. Denies SI and has been. Pt does report that as the day has progressed she feels her anxiety is improving. Appetite is fair. Good fluid intake. Urinating small amount frequently and reports she feels she always needs to go urinate. Started on Macrobid. Attending groups. Social with peers in the common area. PLAN MOVING FORWARD: Groups. Goal setting. Medication management/education. BHUMI program. Discharge planning. INDIVIDUALIZED FALL PREVENTION INTERVENTIONS: Patient-specific fall risk factors per assessment: [current deficits]: Low fall risk Assistance [level of assistance required for transfers and ambulation]: independent Supervision [direct monitoring required during toileting and ADLs]: independnet Surveillance [continuous indirect monitoring]: 30 minute checks. Purposeful rounding Patient-specific fall prevention interventions for sensory deficits provided, if applicable: [X] N/A CPG GOAL OUTCOME EVALUATION: * Plan of Care - Janae Cintron RN - 05/24/2016 9:34 PM EST Problem: Patient Care Overview Goal: Plan of Care Review Outcome: Ongoing (Interventions Implemented as Appropriate) 05/24/16 2129 Coping/Psychosocial Plan Of Care Reviewed With patient Plan of Care Review Progress improving OUTCOME EVALUATION NOTE: OUTCOME SUMMARY: Pt up and visible on the milieu, off unit with family, attended wrap-up. Urine sent for Testing. Appetite intact, depression 0 ,anxiety 6, denies pain, s/i or h/i Social with peers in the eveningplaying board games and offering support to peers . PLAN MOVING FORWARD: Discharge planning, medication management/ education, goal setting, groups , INDIVIDUALIZED FALL PREVENTION INTERVENTIONS: Patient-specific fall risk factors per assessment: [current deficits]: Low fall risk Assistance [level of assistance required for transfers and ambulation]: independent Supervision [direct monitoring required during toileting and ADLs]: independent Surveillance [continuous indirect monitoring]: 30 minute safety checks, purposeful rounding Patient-specific fall prevention interventions for sensory deficits provided, if applicable: [X] N/A CPG GOAL OUTCOME EVALUATION: * Plan of Care - César Grant RN - 05/24/2016 12:06 PM EST Problem: Patient Care Overview Goal: Plan of Care Review Outcome: Ongoing (Interventions Implemented as Appropriate) 05/24/16 1158 Coping/Psychosocial Plan Of Care Reviewed With patient Plan of Care Review Progress improving OUTCOME EVALUATION NOTE: OUTCOME SUMMARY: Pt has been pleasant and cooperative. Denies depression. Anxiety was a 8/10 initially but went to a6/10 after am meds and taking a prn of Clonazepam. Attending groups. 24 hr unit in progress. Appetite is improving. Pt has attended to her ADLs. Feeling more positive and hopeful. Denies any SI/HI or safety concerns. Pt agrees to seek out staff for support with any change in level of concern for their safety. PLAN MOVING FORWARD: Groups. Goal setting. Medication management/education. BHUMI program. Discharge planning. INDIVIDUALIZED FALL PREVENTION INTERVENTIONS: Patient-specific fall risk factors per assessment: [current deficits]: Low fall risk Assistance [level of assistance required for transfers and ambulation]: independent Supervision [direct monitoring required during toileting and ADLs]: independent Surveillance [continuous indirect monitoring]: 30 minute checks. Purposeful rounding Patient-specific fall prevention interventions for sensory deficits provided, if applicable: [X] N/A CPG GOAL OUTCOME EVALUATION: * Plan of Care - Bisi Mann, RN - 05/23/2016 7:18 PM EST Problem: Patient Care Overview Goal: Interdisciplinary Rounds/Family Conf Outcome: Ongoing (Interventions Implemented as Appropriate) 05/23/161919 Interdisciplinary Rounds/Family Conf Participants nursing;patient;physician OUTCOME EVALUATION NOTE: OUTCOME SUMMARY: Patient is pleasant on contact. She has a 24 hour urine in progress and she is cooperative with collection. She denies depression and rates her anxiety as 8/10. She does endorse several symptoms of depression such as sleep/ appetite change, hopelessness. She denies thoughts of wanting to harm herself or others. Appetite has improved. She states she was able to follow what was going on in groups today. Family into visit and she went of the unit with them. PLAN MOVING FORWARD: Maintain 24 hour urine until 1400 tomorrow. Groups to increase coping skills. Monitor mood and behavior on the unit. INDIVIDUALIZED FALL PREVENTION INTERVENTIONS: Low fall risk, steady gait Patient-specific fall risk factors per assessment: [current deficits]: Medical issue Assistance [level of assistance required for transfers and ambulation]: independent Supervision [direct monitoring required during toileting and ADLs]: independent Surveillance [continuous indirect monitoring]: 30 minute safety checks, escort Patient-specific fall prevention interventions for sensory deficits provided, if applicable: [X] N/A CPG GOAL OUTCOME EVALUATION: * Plan of Care - Harry Singh RN - 05/23/2016 2:32 PM EST Problem: Patient Care Overview Goal: Plan of Care Review Outcome: Ongoing (Interventions Implemented as Appropriate) 05/22/162041 Coping/Psychosocial Plan Of Care Reviewed With patient Plan of Care Review Progress improving OUTCOME EVALUATION NOTE: OUTCOME SUMMARY: Patient has been pleasant and cooperative today. She denied suicidal ideation. Her affect was flat.Patient continued to complain of severe anxiety. She declined hydroxyzine stating it made her too sleepy. 24 hour urine collection started at 1400. PLAN MOVING FORWARD: Medical work up for anxiety. Continue present medications. Encourage groups. INDIVIDUALIZED FALL PREVENTION INTERVENTIONS: Patient-specific fall risk factors per assessment: [current deficits]: Secondary diagnosis Assistance [level of assistance required for transfers and ambulation]: independent Supervision [direct monitoring required during toileting and ADLs]: independent Surveillance [continuous indirect monitoring]: 30 minute checks Patient-specific fall prevention interventions for sensory deficits provided, if applicable: [X] N/A CPG GOAL OUTCOME EVALUATION: * Plan of Care - Bisi Mann RN - 05/22/2016 8:42 PM EST Problem: Patient Care Overview Goal: Interdisciplinary Rounds/Family Conf Outcome: Ongoing (Interventions Implemented as Appropriate) OUTCOME EVALUATION NOTE: OUTCOME SUMMARY: Patient states that she woke up with a great deal of anxiety this am. She says that she attended groups but does not feel she was able to follow what was being said. She rates depression and anxiety as 9.5/10 this afternoon. She declined offer for Atarax because it made her feel tired today. She denied thoughts of wanting to harm herself or others. She was visited by her family this evening and was able to go for a walk with them. She has been sitting in the common area visiting and laughing with the other patients. Appetite is poor, fluid intake is good. She did say she was having some urinary hesitancy this afternoon. Patient states she has not had any problems voiding this evening. PLAN MOVING FORWARD: Groups to increase coping skills. Monitor mood and behavior on the unit. INDIVIDUALIZED FALL PREVENTION INTERVENTIONS: low fall risk, steady gait Patient-specific fall risk factors per assessment: [current deficits]: medical issue Assistance [level of assistance required for transfers and ambulation]: independent Supervision [direct monitoring required during toileting and ADLs]: independent Surveillance [continuous indirect monitoring]: 30 minute safety checks, escort Patient-specific fall prevention interventions for sensory deficits provided, if applicable: [X] N/A CPG GOAL OUTCOME EVALUATION: * Plan of Care - Harry Singh RN - 05/22/2016 2:05 PM EST Problem: Patient Care Overview Goal: Plan of Care Review Outcome: Ongoing (Interventions Implemented as Appropriate) 05/21/16 8223 Coping/Psychosocial Plan Of Care Reviewed With patient Plan of Care Review Progress no change OUTCOME EVALUATION NOTE: OUTCOME SUMMARY: Patient was pleasant and cooperative today. She denied suicidal ideation. Her affect was flat. She complained of significant anxiety in the morning. She received hydroxyzine with only partial relief.She was quietly social with her peers. She attended groups. PLAN MOVING FORWARD: Lower prozac to 10mg. Encourage groups. INDIVIDUALIZED FALL PREVENTION INTERVENTIONS: Patient-specific fall risk factors per assessment: [current deficits]: Secondary diagnosis Assistance [level of assistance required for transfers and ambulation]: independent Supervision [direct monitoring required during toileting and ADLs]: independent Surveillance [continuous indirect monitoring]: 30 minute checks Patient-specific fall prevention interventions for sensory deficits provided, if applicable: [X] N/A CPG GOAL OUTCOME EVALUATION: * Initial Assessments - Domenica aMry RN - 05/22/2016 8:37 AM EST Initial Patient Assessment Domenica Mary RN reviewed record and discussed patient with Care Team on 05/22/2016. Introduced/reviewed role; services accepted. Ruslan Sprague is a 45 y.o. year old female (1970) presenting to [address] [place] [address] for treatmentof Unspecified mood (affective) disorder [F39] Anticipated Length Of Stay (If known): unknown Patient/Caregiver Goals of Treatment: decrease anxiety Source of Information: Pt supplied/corraborated REASON for HOSPITALIZATION: Overwhelming anxiety interfering with functioning Medical/Behavioral Health History: has Psoriasis on her problem list. Current treaters: None Hospitalizations Within the Past 30 Days: No PERTINENT INFO FROM H & P: Patient reports on 05/16/16 she went to see her PCP because she thought she might have a UTI. At that appointment she talked with her PCP about a couple of recent incidents of increased anxiety. She was started on Sertraline 50mg which she took the first does that day. She reports that night she was nauseous and did not feel well. She slept 4-5 hours and woke up feeling like I was zinging on caffeine and feeling extremely anxious. She took another dose of Sertraline on 05/17/16 but felt worse and vomited. Additional symptoms included decreased appetite, palpitations, dizziness, headache, generalized weakness, difficulty concentrating, racing thoughts, pacing and being afraid to drive or leave her home. She called her PCP on 05/17/16 and she was told to stop taking the Sertraline. She was prescribed Propranolol 40mg PRN. She reports she has not felt any relief from the anxiety and has begun feeling if she has to live with how she is feeling right now, shewould rather be . She began thinking about overdosing rather than live this way. Due to her sy mptoms she has not worked in the last 3 days. ADVANCE DIRECTIVES: None on file Information provided as needed HEALTH /PRESCRIPTION COVERAGE: Current Effective Coverage: Payor/Plan Subscr Sex Relation Sub. Ins. ID Effective Group Num 1. MEDICAID [place] -* RUSLAN SPRAGUE 1970 Female Self [id number] 05/15/16 [address] Prescription Coverage: Confirmed Preferred Pharmacy: [id number] - [place], [place] - [address] [address] [facility] - [place], [place] - [address] [place] [id number] Other: None HOME ENVIRONMENT / SOCIAL & FAMILY SUPPORTS/COMMUNITY RESOURCES:(living situation, family constellation, Caregivers, current use & knowledge of community resources, etc.) Extended Emergency Contact Information Primary Emergency Contact: Clayton Ryan [facility] Relation: Giuliano Patient is and lives in [place], [place] with her . Her mother and adult son live in the [place], [place] area. 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 PRIMARY CARE PHYSICIAN: Tristan Soliman DO [address] / [facility] [phone] MENTAL HEALTH PRESCRIBER: None currently Current Decision-Making Capacity: (Level of Alertness/Orientation, dementia/ cognitive deficit, if patient is a minor - assess parent/guardian, etc.) Able to consent to or refuse care. CURRENT PATIENT & FAMILY EDUCATION, COPING NEEDS: (Address patient/family satisfaction with care to date, understanding of current status and plan of care, need for family meeting, need for sign language interpreter, etc.) Groups for skills training to enhance coping. Will assess need for family meeting. Functional Status Prior to Admission: Able to perform ADLs/IADLs independently Current Functional Ability: (use of assistive devices, working with PT/OT, etc.) Able to perform ADLs/IADLs independently Anticipated Barriers to Discharge/Special Considerations: (Financial/underinsured, behavioral, lackof needed support/access to community resources, current substance abuse, homelessness, etc.) None aniticipated. Referral will be made for psychotherapy Potential Needs for Transition of Care: Home Health: n/a Any special transportation needed at D/C to [address] [id number]? None Rehab/SNF: n/a New community resources referrals needed? Referral for ongoing outpatient psychotherapy Other: none (DME, OPAT, TPN/Tube Feeding, Wound Vac, Social Needs) PLAN: PCM will continue to monitor progress, follow for continuity of care and assist with transition of care planning while hospitalized. Domenica Mary RN- PAGER: [phone] * Plan of Care - Domenica Mary RN - 05/22/2016 8:22 AM EST MULTIDISCIPLINARY TREATMENT PLAN Patient: Ruslan Sprague Guardian: Ph: DPOA: Ph: Todays Date: 05/22/2016 Next Kin: Ph: Admit Date: 05/21/2016 4:34 PM CODE STATUS: Full Initial date of care plan. 05/22/2016 PATIENT'S REASON FOR HOSPITALIZATION 1. suicidal ideation in the context of overwhelming anxiety STRESSORS/PROBLEMS TARGET SYMPTOMS: 1. worsening anxiety interfering with functioning 1. worsening anxiety 2. 2. suicidal ideation 3. 3. GOALS 1. Stabilize target symptoms and improve understanding of illness 2. Work with Patient Pipe Chipper to create and implement aftercare plan 3. Assessment of need following hospitalization, referrals as indicated 4. Groups for education, skill building and support, as tolerated 5. Complete Relapse Plan prior to discharge PHYSICIAN INTERVENTIONS ACTIVITY INTERVENTIONS 1. Continued psychiatric evaluation 1. Behavioral Activation Communication Program 2. Med management/Brief therapy 2. Therapeutic groups & activities 3. Diagnostic/Medical testing/Labs 3. Pt and family education NURSING INTERVENTIONS PCM & SW INTERVENTIONS 1. Purposeful rounding 1. Facilitate communication with family/supports as indicated 2. See Nursing care plan 2. Collaboration of care with outpatient providers 3. Medication administration and teaching 3. Assist with discharge planning The multidisciplinary team reviewed falls prevention plan with me. I have worked with my treatment team and agree with the plan above. PATIENT SIGNATURE DATE: 05/22/2016 Ruslan Sprague PRINT NAME: SIGNATURE: DATE: RESIDENT PHYSICIAN Hilaria Dixon MD 05/22/2016 ATTENDING PHYSICIAN Maria Luz Crisostomo MD 05/22/2016 NURSING Harry Singh RN 05/22/2016 PT MANAGER OF BROADCAST CONTENT Rozina Mary RN- 05/22/2016 THERAPIST Kyara Oscar [facility] 05/22/2016 BATTERY REPAIRER Anna Ahumada, [facility] 05/22/2016 * Plan of Care - Bisi Mann RN - 05/21/2016 5:35 PM EST Problem: Patient Care Overview Goal: Interdisciplinary Rounds/Family Conf Outcome: Ongoing (Interventions Implemented as Appropriate) 05/21/16 [id number] Interdisciplinary Rounds/Family Conf Participants nursing;physician;patient OUTCOME EVALUATION NOTE: OUTCOME SUMMARY: Patient admitted from the ED. She is alert and oriented. She is pleasant and cooperative with the admission. She has a full range of affect, appropriate eye contact. She reports severe anxiety since last . Yesterday she felt so bad she considered overdosing on medications because she felt so bad. She denies thoughts of wanting to harm herself or others. She has skin rash all over her bodyfrom psoriasis. She had the flu vaccine earlier this flu season from her PCP. PLAN MOVING FORWARD: Monitor mood and behavior on the unit. Groups to increase coping skills. INDIVIDUALIZED FALL PREVENTION INTERVENTIONS: Patient is a low fall risk, she has a steady gait. Teaching done related to fall risk. Patient-specific fall risk factors per assessment: [current deficits]: medical issue Assistance [level of assistance required for transfers and ambulation]: independent Supervision [direct monitoring required during toileting and ADLs]: independent Surveillance [continuous indirect monitoring]: 30 minute safety checks, escort to groups Patient-specific fall prevention interventions for sensory deficits provided, if applicable: [X] N/A CPG GOAL OUTCOME EVALUATION: documented in this encounter Plan of Treatment Scheduled Referrals Name Type Priority Associated Diagnoses Order Schedule Referral to Psychiatry Outpatient Referral Routine Anxiety Ordered: 05/27/2016 documented as of this encounter Procedures Procedure Name Priority Date/Time Associated Diagnosis Comments URINE HOLD Routine 05/24/2016 5:20 PM EST URINALYSIS WITH REFLEX CULTURE Routine 05/24/2016 5:20 PM EST URINE CULTURE Routine 05/24/2016 5:20 PM EST U24 HRS AND VOLUME Routine 05/24/2016 1: 18 PM EST METANEPHRINES, FRACTIONATED, URINE, 24 HOUR Routine 05/24/2016 1:18 PM EST CATECHOLAMINES FRAC FREE URINE, 24 HR Routine 05/24/2016 1:18 PM EST PHOSPHORUS Routine 05/23/2016 4:57 PM EST MAGNESIUM Routine 05/23/2016 4:57 PM EST LUTEINIZING HORMONE Routine 05/23/2016 4 :57 PM EST FOLLICLE STIMULATING HORMONE Routine 05/23/2016 4:57 PM EST CALCIUM Routine 05/23/2016 4:57 PM EST CRP, ACUTE INFLAMMATION Routine 05/23/20 16 12:49 PM EST IRON AND TIBC Routine 05/23/2016 12:49 PM EST VITAMIN D, 25-HYDROXY Routine 05/23/2016 12:49 PM EST DHEA-SULFATE Routine 05/23/2016 12:49 PM EST DHEA Routine 05/23/2016 12:49 PM EST SEDIMENTATION RATE Routine 05/23/2016 12 :49 PM EST T3, FREE Routine 05/23/2016 12:49 PM EST TSH Routine 05/23/2016 12:49 PM EST T4, FREE Routine 05/23/2016 12:49 PM EST FOLATE, SERUM Routine 05/23/2016 12:49 PM EST FERRITIN Routine 05/23/2016 12:49 PM EST VITAMIN B12 Routine 05/23/2016 12:49 PM EST documented in this encounter Results * (ABNORMAL) Urine culture (05/24/2016 5:20 PM EST) Urine Culture 1,000-9,000 cfu/ml Gram Positive organisms , probable contaminant(A ) [facility] First stream urine specimen (specimen) 05/24/2016 5:20 PM EST 05/24/2016 7:04 PM EST Narrative Resulting Agency Comment Spec In Lab Maria Luz Crisostomo MD MICROBIOLOGY - GENER AL ORDERABLES [facility] [place] [address] * Urine Hold (05/24/2016 5:20 PM EST) Hold, Urine Sample in lab. [facility] Urine specimen (specimen) Urine / Unknown 05/24/2016 5:20 PM EST 05/24/2016 6:07 PM EST Maria Luz Crisostomo MD URINE ORDERABLES [facility] [place] [address] * (ABNORMAL) Urinalysis with reflex Culture (05/24/2016 5:20 PM EST) Glucose, Urine Dipstick Negative Negative mg/dL [facility] Protein, Urine Dipstick Negative Negative mg/dL [facility] Bilirubin, Urine Dipstick Negative Negative mg/dL [facility] Comment: Clinical correlation required for positive Urine Bilirubin results as false positive may occur with some drugs and drug related products. If a false positive is suspected a serum total bilirubin should be considered if clinically indicated. Urobilinogen, Urine Dipstick Normal Normal mg/dL [facility] pH, Urn (dipstick) 6.0 5.0 - 8.0 [facility] Blood, Urine Dipstick Small(A) Negative mg/dL [facility] Ketone, Urine Dipstick Negative Negative mg/dL [facility] Nitrite, Urine Dipstick Negative Negative [facility] Leukocytes, Urine Dipstick Large(A) Negative [facility] Appearance, Urine Dipstick Clear Clear [facility] Specific [place] Urine Automated 1.006 1.002 - 1.030 [facility] Color, Urine Dipstick Straw Yellow [facility] RBC, Urine 6(H) 0 - 4 /HPF [facility] WBC, Urine 8(H) 0 - 5 /HPF [facility] Bacteria, Urine Rare(A) None /HPF [facility] Squamous Epithelial Cells, Urine 1 <=4 /HPF [facility] Reflex to Culture Yes [facility] First stream urine specimen (specimen) 05/24/2016 5:20 PM EST 05/24/2016 6:06 PM EST Narrative Resulting Agency Comment Spec In Lab Maria Luz Crisostomo MD URINE ORDERABLES Performing Organization Address [facility] de Phone Number [facility] [place] [address] * U24 Hrs and Volume (05/24/2016 1:18 PM EST) Hours Collected 24 hour(s) [facility] Total Volume 1,500 mL [facility] Urine specimen (specimen) 05/24/2016 1:18 PM EST 05/24/2016 2:05 PM EST Narrative Resulting Agency Comment Spec In Lab Maria Luz Crisostomo MD CHEMISTRY ORDERABLES Performing Organization Address [facility] de Phone Number [facility] [place] [address] * Catecholamines Frac Free urine, 24 hr (05/24/2016 1:18 PM EST) U24 Catechol, Frac Test ? Result ?Flag ??Unit ?RefValue ------- Catecholamine Fract, Free, U ??Collection Duration ?24 ?h ??Urine Volume ? 1500 ?mL ??Norepinephrine ? 53 ?mcg/24 h ??15-80 ??Epinephrine ?6.2 ? mcg/24 h ??<21 ??Dopamine ? 182 ? mcg/24 h ??65-400 ? ---ADDITIONAL INFORMATION------- ?This test was developed and its performance characteristics ?determined by [facility] in a manner consistent with CLIA ?requirements. This test has not been cleared or approved by ?the U.S. Food and Drug Administration. ?Test Performed by: ?[facility] [place] [facility] [place] [address] ?Aviation Consultant: Jamir Chino II, M.D., Ph.D. [facility] Urine specimen (specimen) 05/24/2016 1:18 PM EST 05/24/2016 3:10 PM EST Narrative Resulting Agency Comment Spec In Lab Maria Luz Crisostomo MD LAB SEND OUT ORDERAB LES [facility] [place] [address] * Metanephrines, Fractionated, urine, 24 hour (05/24/2016 1:18 PM EST) U24 Metanephrine s,Frac (MAY) Test ? Result ?Flag ??Unit ?RefValue ------- Metanephrines, Fractionated, 24h, U ??Metanephrine, U ?128 ? mcg/24 h ? ---REFERENCE VALUE ?30-180 (Normotensive) ?<400 (Hypertensive) ??Normetanephrine, U ? 383 ? mcg/24 h ? ---REFERENCE VALUE ?119-451 (Normotensive) ?<900 (Hypertensive) ??Total Metanephrines, U ? 511 ? mcg/24 h ? ---REFERENCE VALUE ?156-561 (Normotensive) ?<1300 (Hypertensive) ??Collection Duration ?24 ?h ??Urine Volume ? 1500 ?mL ? ---ADDITIONAL INFORMATION------- ?This test was developed and its performance characteristics ?determined by [facility] in a manner consistent with CLIA ?requirements. This test has not been cleared or approved by ?the U.S. Food and Drug Administration. ?Test Performed by: ?[facility] ?[address] [place] [address] ?Aviation Consultant: Jamir Chino II, M.D., Ph.D. [facility] Urine specimen (specimen) 05/24/2016 1:18 PM EST 05/24/2016 3:10 PM EST Narrative Resulting Agency Comment Spec In Lab Maria Luz Crisostomo MD LAB SEND OUT ORDERAB LES Performing Organization Address [facility] de Phone Number [facility] [place] [address] * Phosphorus (05/23/2016 4:57 PM EST) Phosphorus 3.8 2.5 - 4.5 mg/dL [facility] Blood specimen (specimen) 05/23/2016 4:57 PM EST 05/23/2016 5:17 PM EST Narrative Resulting Agency Comment Spec In Lab Maria Luz Crisostomo MD CHEMISTRY ORDERABLES Performing Organization Address [facility] de Phone Number [facility] [place] [address] * Calcium (05/23/2016 4:57 PM EST) Calcium 9.4 8.5 - 10.5 mg/dL [facility] Blood specimen (specimen) 05/23/2016 4:57 PM EST 05/23/2016 5:17 PM EST Narrative Resulting Agency Comment Spec In Lab Maria Luz Crisostomo MD CHEMISTRY ORDERABLES Performing Organization Address [facility] de Phone Number [facility] [place] [address] * Magnesium (05/23/2016 4:57 PM EST) Magnesium 0.85 0.69 - 1.07 mmol/L [facility] Blood specimen (specimen) 05/23/2016 4:57 PM EST 05/23/2016 5:17 PM EST Narrative Resulting Agency Comment Spec In Lab Maria Luz Crisostomo MD CHEMISTRY ORDERABLES Performing Organization Address [facility] de Phone Number [facility] [place] [address] * Luteinizing Hormone (05/23/2016 4:57 PM EST) Luteinizing Hormone 8.0 mlU/ML [facility] Comment: Reference ranges: ?? Females ?? Follicular: ? 2.4-12.6 mIU/mL ?? Ovulation: ?14.0-95.6 mIU/mL ?? Luteal: ? 1.0-11.4 mIU/mL ?? Postmenopausal: ? 7.7-58.5 mIU/mL Blood specimen (specimen) 05/23/2016 4:57 PM EST 05/23/2016 5:17 PM EST Narrative Resulting Agency Comment Spec In Lab Maria Luz Crisostomo MD CHEMISTRY ORDERABLES Performing Organization Address [facility] Co de Phone Number [facility] [place] [address] * Follicle Stimulating Hormone (05/23/2016 4:57 PM EST) Follicle Stimulating Hormone 5.1 mlU/ML [facility] Comment: Reference Ranges: Females: Follicular: ? 3.5-12.5 mIU/mL Ovulation: ?4.7-21.5 mIU/mL Luteal: ? 1.7-7.7 mIU/mL Postmenopausal: 25.8-134.8 mIU/mL Blood specimen (specimen) 05/23/2016 4:57 PM EST 05/23/2016 5:17 PM EST Narrative Resulting Agency Comment Spec In Lab Maria Luz Crisostomo MD CHEMISTRY ORDERABLES Performing Organization Address [facility] Co de Phone Number [facility] [place] [address] * (ABNORMAL) Ferritin (05/23/2016 12:49 PM EST) Ferritin 430(H) 15 - 150 ng/mL [facility] Comment: Pediatric reference ranges not verified at [facility], interpret with caution. Reference ranges for females greater than 50 years of age approach values for men, i.e., 30-400 ng/mL. Blood specimen (specimen) 05/23/2016 12:49 PM EST 05/23/2016 1:04 PM EST Narrative Resulting Agency Comment Spec In Lab Maria Luz Crisostomo MD CHEMISTRY ORDERABLES Performing Organization Address [facility] Co de Phone Number [facility] [place] [address] * Iron and TIBC (05/23/2016 12:49 PM EST) Iron 75 30 - 150 mcg/dL [facility] TIBC 290 250 - 450 mcg/dL [facility] Iron Saturation 26 20 - 50 % [facility] Blood specimen (specimen) 05/23/2016 12:49 PM EST 05/23/2016 1:04 PM EST Narrative Resulting Agency Comment Spec In Lab Maria Luz Crisostomo MD CHEMISTRY ORDERABLES Performing Organization Address City/[facility] Co de Phone Number [facility] [place] [address] * Vitamin B12 (05/23/2016 12:49 PM EST) Vitamin B12 550 207 - 974 pg/mL [facility] Blood specimen (specimen) 05/23/2016 12:49 PM EST 05/23/2016 1:04 PM EST Narrative Resulting Agency Comment Spec In Lab Maria Luz Crisostomo MD CHEMISTRY ORDERABLES Performing Organization Address [facility] [place] [address] * Folate, serum (05/23/2016 12:49 PM EST) Folate 12.0 4.8 - 24.2 ng/mL [facility] Blood specimen (specimen) 05/23/2016 12:49 PM EST 05/23/2016 1:04 PM EST Narrative Resulting Agency Comment Spec In Lab Maria Luz Crisostomo MD CHEMISTRY ORDERABLES Performing Organization Address [facility] Co de Phone Number [facility] [place] [address] * CRP, acute inflammation (05/23/2016 12:49 PM EST) C-Reactive Protein 2.1 <=4.9 mg/L [facility] Blood specimen (specimen) 05/23/2016 12:49 PM EST 05/23/2016 1:04 PM EST Narrative Resulting Agency Comment Spec In Lab Maria Luz Crisostomo MD CHEMISTRY ORDERABLES Performing Organization Address City/[facility] Co de Phone Number [facility] [place] [address] * Sedimentation rate (05/23/2016 12:49 PM EST) Sedimentation Rate Automated 10 0 - 20 mm/hr [facility] Blood specimen (specimen) 05/23/2016 12:49 PM EST 05/23/2016 1:04 PM EST Narrative Resulting Agency Comment Spec In Lab Maria Luz Crisostomo MD HEMATOLOGY ORDERABLE S [facility] [place] [address] * T3, free (05/23/2016 12:49 PM EST) Free T3 2.6 2.0 - 4.4 pg/mL [facility] Blood specimen (specimen) 05/23/2016 12:49 PM EST 05/23/2016 1:04 PM EST Narrative Resulting Agency Comment Spec In Lab Maria Luz Crisostomo MD CHEMISTRY ORDERABLES [facility] [place] [address] * T4, free (05/23/2016 12:49 PM EST) Free T4 1.29 0.93 - 1.70 ng/dL [facility] Blood specimen (specimen) 05/23/2016 12:49 PM EST 05/23/2016 1:04 PM EST Narrative Resulting Agency Comment Spec In Lab Maria Luz Crisostomo MD CHEMISTRY ORDERABLES [facility] [place] [address] * TSH (05/23/2016 12:49 PM EST) Thyroid Stimulating Hormone 2.23 0.27 - 4.20 mcIU/mL [facility] Blood specimen (specimen) 05/23/2016 12:49 PM EST 05/23/2016 1:04 PM EST Narrative Resulting Agency Comment Spec In Lab Maria Luz Crisostomo MD CHEMISTRY ORDERABLES Performing Organization Address City/[facility]/ZIP Co de Phone Number [facility] [place] [address] * DHEA (05/23/2016 12:49 PM EST) DHEA (OCTOBER) 5.6 <8.0 ng/mL [facility] Comment: ADDITIONAL INFORMATION This test was developed and its performance characteristics determined by [facility] in a manner consistent with CLIA requirements. This test has not been cleared or approved by the U.S. Food and Drug Administration. Test Performed by: [place] [address] Aviation Consultant: Jamir Chino II, M.D., Ph.D. Blood specimen (specimen) 05/23/2016 12:49 PM EST 05/23/2016 1:45 PM EST Narrative Resulting Agency Comment Spec In Lab Maria Luz Crisostomo MD LAB SEND OUT ORDERAB LES Performing Organization Address City/[facility] Co de Phone Number [facility] [place] [address] * DHEA-sulfate (05/23/2016 12:49 PM EST) Dehydroepiandrosterone Sulfate 165.9 60.9 - 337.0 mcg/dL [facility] Blood specimen (specimen) 05/23/2016 12:49 PM EST 05/23/2016 1:04 PM EST Narrative Resulting Agency Comment Spec In Lab Maria Luz Crisostomo MD CHEMISTRY ORDERABLES Performing Organization Address City/[facility]/ZIP Co de Phone Number [facility] [place] [address] * (ABNORMAL) Vitamin D, 25-Hydroxy (05/23/2016 12:49 PM EST) Vitamin D Total 25 OH 22(L) 30 - 100 ng/mL [facility] Comment: Deficient <10 ng/mL Insufficient 10 to 29 ng/mL Sufficient 30 to 100 ng/mL Potential Intoxication >100 ng/mL According to the [place] National Osteoporosis Foundation, Vitamin D concentrations >30 ng/mL are sufficient to protect bone health. ??The National Kidney Foundation has similarly stated that patients with Vitamin D concentrations <30ng/mL should be considered to be insufficient or deficient. http://[employer]/DHSplurgynatlkidneyfoundation http://[employer]/codesyVitD The [employer] Vitamin D Immunoassay detects both 25-OH Vitamin D2 and 25-OH Vitamin D3, but only a total Vitamin D concentration is reported. Blood specimen (specimen) 05/23/2016 12:49 PM EST 05/23/2016 1:04 PM EST Narrative Resulting Agency Comment Spec In Lab Maria Luz Crisostomo MD CHEMISTRY ORDERABLES [facility] [address] [place] [phone] documented in this encounter Visit Diagnoses Diagnosis Anxiety Anxiety state, unspecified documented in this encounter Administered Medications Inactive Administered Medications - up to 3 most recent administrations Medication Order MAR Action Action Date Dose Rate Site atorvastatin (LIPITOR) tablet 10 mg 10 mg, Oral, EVERY EVENING, First dose on 05/21/16 at 2100, Until Discontinued, Interchanged for pravastatin (Pravachol) tablet 40 mg per Pharmacy and [employer] ([employer]) Committee therapeutic interchange policy., Routine Given 05/26/2016 6:34 PM EST 10 mg Given 05/25/2016 4:41 PM EST 10 mg Given 05/24/2016 5:03 PM EST 10 mg cholecalciferol (Vitamin D3) tablet 2,000 Units 2,000 Units, Oral, DAILY, First dose on Heather 05/24/16 at 1100, Until Discontinued, Routine Given 05/27/2016 8:24 AM EST 2,000 Units Given 05/26/2016 8:22 AM EST 2,000 Units Given 05/25/2016 8:08 AM EST 2,000 Units clonazePAM (KlonoPIN) tablet 0.25 mg 0.25 mg, Oral, 2 TIMES DAILY PRN, Starting on Sat05/23/16 at 1124, Until Sat05/27/16 at 1542, Anxiety, Routine Given 05/27/2016 1:40 PM EST 0.25 mg Given 05/27/2016 7:33 AM EST 0.25 mg Given 05/26/2016 9:25 AM EST 0.25 mg FLUoxetine (PROzac) capsule 10 mg 10 mg, Oral, DAILY, First dose (after last modification) on Sat05/23/16 at 0900, Until Discontinued, Routine Given 05/27/2016 8:25 AM EST 10 mg Given 05/26/2016 8:22 AM EST 10 mg Given 05/25/2016 8:09 AM EST 10 mg FLUoxetine (PROzac) capsule 20 mg 20 mg, Oral, DAILY, First dose on Sat05/22/16 at 0900, Until Discontinued, Routine Given 05/22/2016 8:06 AM EST 20 mg hydrOXYzine (ATARAX) tablet 25 mg 25 mg, Oral, 3 TIMES DAILY PRN, Starting on Sat05/21/16 at 1747, Until Sat05/22/16 at 1554, Anxiety, Routine Given 05/22/2016 8:06 AM EST 25 mg Given 05/21/2016 8:36 PM EST 25 mg nicotine (NICODERM CQ) 14 mg/24 hr patch 14 mg 14 mg, Transdermal, Administer over 24 Hours, DAILY, First dose on Sat05/23/16 at 1230, Until Discontinued, Routine Given 05/27/2016 8:25 AM EST 14 mg 10- Arm Upper (Right ) Given 05/26/2016 8:24 AM EST 14 mg 09 - Arm Upper (Left) Given 05/25/2016 8:08 AM EST 14 mg 03 - Shoulder (Left) nicotine (NICODERM CQ) 14 mg/24 hr patch Patch Removal Transdermal, DAILY, First dose on Sat05/24/16 at 0900, Until Discontinued, Remove nicotine 14 mg/24 hr patch nicotine (NICODERM CQ) 14 mg/24 hr patch Patch Verification Transdermal, 2 TIMES DAILY, First dose on Sat05/23/16 at 2330, Until Discontinued, Verify nicotine 14 mg/24 hr patch. nitrofurantoin (macrocrystal-monohydrate) (MACROBID) capsule 100 mg 100 mg, Oral, 2 TIMES DAILY, 14 doses, First dose on Sat05/25/16 at 1100, Last dose on Heather 05/31/16 at 2100, Routine, Indication for (Active or Suspected): Urinary Tract/Pyelonephritis Given 05/27/2016 8:25 AM EST 100 mg Given 05/26/2016 9:35 PM EST 100 mg Given 05/26/2016 8:22 AM EST 100 mg sulfamethoxazole-trimethoprim (BACTRIM DS) 800-160 mg per tablet 1 tablet 1 tablet, Oral, EVERY 12 HOURS SCHEDULED (2 times per day), 3 doses, First dose on Sat05/21/16 at 2100, Last dose on Sat05/22/16 at 2100, Routine, Indication for (Active or Suspected): Urinary Tract/Pyelonephritis Given 05/22/2016 9:45 PM EST 1 t ablet Given 05/22/2016 8:06 AM EST 1 tablet Given 05/21/2016 8:35 PM EST 1 tablet traZODone (DESYREL) tablet 100 mg 100 mg, Oral, ONCE, 1 dose, On 05/26/16 at 0015, STAT Given 05/26/2016 12:08 AM EST 100 mg traZODone (DESYREL) tablet 100 mg 100 mg, Oral, ONCE, 1 dose, On 05/27/16 at 0130, STAT Given 05/27/2016 1:19 AM EST 100 mg traZODone (DESYREL) tablet 50 mg 50 mg, Oral, NIGHTLY PRN, Starting on 05/21/16 at 1747, Until 05/27/16 at 1542, Sleep, Routine Given 05/26/2016 9:34 PM EST 50 mg Given 05/25/2016 9:45 PM EST 50 mg Given 05/23/2016 11:41 PM EST 50 mg documented in this encounter Active and Recently Administered Medications Times are shown in EST. Scheduled Medication Order 05/25/2016 05/26/2016 05/27/2016 atorvastatin (LIPITOR) tablet 10 mg 10 mg, Oral, EVERY EVENING, First dose on 05/21/16 at 2100, Until Discontinued, Interchanged for pravastatin (Pravachol) tablet 40 mg per Pharmacy and Therapeutics (P&T) Committee therapeutic interchange policy., Routine 1641 (Given - Provider: Bisi Mann, RN) 1834 (Given - Provider: Bisi Mann RN) cholecalciferol (Vitamin D3) tablet 2,000 Units 2,000 Units, Oral, DAILY, First dose on Sat05/24/16 at 1100, Until Discontinued, Routine 0808 (Given - Provider: César Grant RN) 0822 (Given - Provider: Harry Singh RN) 0824 (Given - Provider: Harry Singh RN) FLUoxetine (PROzac) capsule 10 mg 10 mg, Oral, DAILY, First dose (after last modification) on Sat05/23/16 at 0900, Until Discontinued, Routine 0809 (Given - Provider: César Grant RN) 0822 (Given - Provider: Harry Singh RN) 0825 (Given - Provider: Harry Singh RN) nicotine (NICODERM CQ) 14 mg/24 hr patch 14 mg(Linked Group 1) 14 mg, Transdermal, Administer over 24 Hours, DAILY, First dose on Sat05/23/16 at 1230, Until Discontinued, Routine 0808 (Given - Provider: César Grant RN) 0824 (Given - Provider: Harry Singh RN) 0825 (Given - Provider: Harry Singh RN) nicotine (NICODERM CQ) 14 mg/24 hr patch Patch Removal(Linked Group 1) Transdermal, DAILY, First dose on Sat05/24/16 at 0900, Until Discontinued, Remove nicotine 14 mg/24 hr patch 0900 (Patch Removed - Provider: César Grant RN) 09 (Patch Removed - Provider: Harry Singh RN) 09 (Patch Removed - Provider: Harry Singh RN) nicotine (NICODERM CQ) 14 mg/24 hr patch Patch Verification(Linked Group 1) Transdermal, 2 TIMES DAILY, First dose on Sat05/23/16 at 2330, Until Discontinued, Verify nicotine 14 mg/24 hr patch. 0900 (Patch (dose and location) verified - Provider: César Grant RN)2100 (Patch (dose and location) verified - Provider: Bisi Mann RN) 0900 (Patch (dose and location) verified - Provider: Harry Singh RN)2100 (Patch (dose and location) verified - Provider: Bisi Mann, JAE) 0900 (Patch (dose and location) verified - Provider: Harry Singh RN) nitrofurantoin (macrocrystal-monohydra te) (MACROBID) capsule 100 mg 100 mg, Oral, 2 TIMES DAILY, 14 doses, First dose on Sat05/25/16 at 1100, Last dose on Sat05/31/16 at 2100, Routine, Indication for (Active or Suspected): Urinary Tract/Pyelonephritis 1202 (Given - Provider: César Grant RN)2145 (Given - Provider: Bisi Mann RN) 0822 (Given - Provider: Harry Singh RN)2135 (Given - Provider: Bisi Mann, JAE) 0825 (Given - Provider: Harry Singh, JAE) traZODone (DESYREL) tablet 100 mg (COMPLETED) 100 mg, Oral, ONCE, 1 dose, On 05/26/16 at 0015, STAT 0008 (Given - Provider: Yareli Yee RN) traZODone (DESYREL) tablet 100 mg (COMPLETED) 100 mg, Oral, ONCE, 1 dose, On 05/27/16 at 0130, STAT 0119 (Given - Provider: Brenna Correia, JAE) PRN Medication Order 05/25/2016 05/26/2016 05/27/2016 clonazePAM (KlonoPIN) tablet 0.25 mg 0.25 mg, Oral, 2 TIMES DAILY PRN, Starting on Sat05/23/16 at 1124, Until 05/27/16 at 1542, Anxiety, Routine 0338 (Given - Provider: Brenna Correia, RN)1640 (Given - Provider: Bisi Mann, JAE) 0925 (Given - Provider: Harry Singh, JAE) 0733 (Given - Provider: Harry Singh, JAE)1340 (Given - Provider: Harry Singh, RN) ibuprofen (ADVIL;MOTRIN) tablet 600 mg 600 mg, Oral, EVERY 6 HOURS PRN, Starting on Sat05/21/16 at 1747, Until 05/27/16 at 1542, Pain, Administer for pain, Routine ondansetron (ZOFRAN) tablet 4 mg 4 mg, Oral, EVERY 8 HOURS PRN, Starting on Sat05/21/16 at 1900, Until 05/27/16 at 1542, Nausea, Routine traZODone (DESYREL) tablet 50 mg 50 mg, Oral, NIGHTLY PRN, Starting on Sat05/21/16 at 1747, Until 05/27/16 at 1542, Sleep, Routine 2144 (Given - Provider: Bisi Mann, RN) 2133 (Given - Provider: Bisi Mann, JAE) Linked Groups Order Group 1: nicotine (NICODERM CQ) 14 mg/24 hr patch 14 mgJump to med 14 mg, Transdermal, Administer over 24 Hours, DAILY, First dose on Sat05/23/16 at 1230, Until Discontinued, Routine And nicotine (NICODERM CQ) 14 mg/24 hr patch Patch VerificationJump to med Transdermal, 2 TIMES DAILY, First dose on Sat05/23/16 at 2330, Until Discontinued, Verify nicotine 14 mg/24 hr patch. And nicotine (NICODERM CQ) 14 mg/24 hr patch Patch RemovalJump to med Transdermal, DAILY, First dose on Sat05/24/16 at 0900, Until Discontinued, Remove nicotine 14 mg/24 hr patch documented in this encounter Care Teams Planner Intern Relationship Specialty Start Date End Date Tristan Soliman DO [address] [place] [address] PCP - General 05/09/10 11/26/16 documented as of this encounter
--- OUTSIDE RECORDS SUMMARY | 2024-02-04 01:26 | XMS_ITS | Encounter Summary ---
Author Organization [facility] [place] [address] Care Team Providers Care Fertilizing Machine Operator Name Role Phone Tristan Soliman DO Primary Care Provider Reason for Visit * Reason Comments Referral * Consultation (Routine) - Closed Specialty Diagnoses / Procedures Referred By Conthai t Referred To Contact Rheumatology Diagnoses Polyarthralgia Yareli Morales MD [facility] [place] [address] [facility] Rheumatology [address] [place] [id number] Referral ID Status Reason Start Date Expiration Date V isits Requested Visits Authorized [id number] Closed Consult, Test & Treat 08/06/2016 08/06/2017 1 1 Encounter Details Date Type Department Care Team (Late st Contact Info) Description 09/19/2016 10:00 AM EDT Office [place] [address] Jacinta Browne [facility] [place] [address] Arthralgia of both hands; Psoriasis; Somatic complaints, multiple Social History Tobacco Use Types Packs/Day Years [...] Sign Reading Time Taken Comments Blood Pressure 110/77 09/19/2016 9:42 AM EDT Pulse 62 09/19/2016 9:42 AM EDT Temperature 36.9 ??C (98.4 ??F) 09/19/2016 9:42 AM ED T Respiratory Rate - - Oxygen Saturation 100% 09/19/2016 9:42 AM EDT Inhaled Oxygen Concentration - - Weight 85.7 kg (189 lb) 09/19/2016 9:42 AM EDT Height 160 cm (5' 3) 09/19/2016 9:42 AM EDT Body Mass Index 33.48 09/19/2016 9:42 AM EDT documented in this encounter Progress Notes * Jacinta Browne DO - 09/19/2016 10:00 AM EDT Rheumatology Outpatient Consultation Note Reason for Consult: The patient is seen at the request of Dr. Tristan Soliman DO for evaluation and treatment of psoriasis History of Present Illness: Jesika Sprague is a 45 y.o. female who presents today for evaluation [...] next . She is also seeing a social sciences department chair who reports that her cortisol testing is off. The social sciences department chair felt aln on her neck during the exam and an US confirmed the ln and a CT neck was completed today. Since she has been off of therapy for her psoriasis it has been quite active on her hands, dorsum of her feet, knees and elbows. Her gyro mechanic wants to start cosentyx but she wanted to hold off until her other symptoms improved. Psoriasis treatment Stelara it worked well for her psoriasis. She was on it 1 year. mtx made her ill humira did not work She notes some pip joint pain lasting [...] 5. Night sweats 6. Recent weight loss x 7. Recent Weight gain Head and neck 8. Headaches 9. Neck pain/stiffness 10. Lymphadenopathy X ct done today 11. Ocular erythema 12. Xerophthalmia 13. Gritty eyes 14. Eye pain 15. Photophobia 16. Oral sores 17. Xerostomia 18. Jaw claudication Cardiopulmonary 19. Chest discomfort 20. Dyspnea 21. Cough 22. Hemoptysis Gastrointestinal 23. Dysphagia 24. Heartburn 25. Nausea X w food recently 26. Emesis 27. Abdominal pain 28. Hematochezia 29. Diarrhea X resolve dnow 30. Constipation Genitourinary 31. Hematuria 32. Dysuria [...] in may No drugs Physical Examination: BP 110/77 Pulse 62 Temp 36.9 ??C (98.4 ??F) (Oral) Ht 160 cm (5' 3) Wt 85.7 kg (189 lb) SpO2 100% BMI 33.48 kg/m2 General: Alert and oriented. Well developed and nourished. The patient did not appear distressed oruncomfortable. The patient ambulated without difficulty or assistance. Head: Scalp: Appeared normal. Eyes: PERRL. Extraocular muscles were intact. External [...] fist and claw Wrists: NML Elbows: NML Shoulders: NML Cervical Spine: NML Hips: Mild ttp over bl greater troch Knees: NML Ankles: NML Feet: NML, neg mtp compression Nails: No nail pitting, onycholysis or periungual erythema noted. But has nail belizean on Neurologic: gait nl from all ext Skin: Psoriasis on bl hands, and over the feet, over bl elbows, knees Laboratory Data: reviewed Studies: Impression/Recommendations : Jesika Sprague is a 45 y.o. female who presents today with hx of psoriasis, celiac disease and arthralgias, along with a constellation of symptoms which is being treated as anxiety. Don't believe her symptoms of tremor etc are related to a rheumatologic disease, she should continue follow up with her pcm for this. Arthralgias: she has min joint pain overall and no sig sweling on exam today, her arthralgias couldbe d/t psa or celiac disease. Her recent CRP was normal at [facility]. Will assess plain radiographs of the hands, if there are changes c/w psa would manage as such, otherwise she is having a colonoscopy to assess further for the presence of celiac disease next week and if pos, she will pursue a gluten free diet and fu in 3 mos, if her symptoms are not improved would reconsider Psa. Psoriasis: agree with her gyro mechanic that additional medication is needed to manage her psoriasis, the plan for cosentyx is certainly reasonable, she will fu with him to further discuss. Also reviewed arablair with her or elida. CC: Tristan Soliman DO documented in this encounter Plan of Treatment Not on file documented as of this encounter Results * XR Hands Min 3 views Bilat (09/19/2016 12:16 PM EDT) Anatomical Region Laterality Modality Hand Bilateral Digital Radiogra phy Impressions 09/19/2016 2:08 PM EDT No evidence of erosive disease. Bilateral positive ulnar variance with findings suggestive of ulnocarpal abutment. Narrative 09/19/2016 2:08 PM EDT EXAMINATION: XR HANDS MIN 3 VIEWS BILAT CLINICAL HISTORY: Bilateral hand pain in this patient history of psoriasis and celiac disease; assess for evidence of psoriatic arthritis. TECHNIQUE: Frontal, lateral, oblique, and ball-catcher's view radiographs of the bilateral hands were obtained. COMPARISON: None FINDINGS: No bony erosion is identified. The visualized joint spaces are maintained. There is no dislocation or subluxation. Bony mineralization is within normal limits, and there is no fracture. There is no radiographically appreciable soft tissue swelling or soft tissue calcification. There is positive ulnar variance bilaterally, with medial cysts in the proximal medial aspect of the lunates bilaterally, which could reflect ulnocarpal abutment.. Procedure Note Elli Izquierdo MD - 09/19/2016 EXAMINATION: XR HANDS MIN 3 VIEWS BILAT CLINICAL HISTORY: Bilateral hand pain in this patient history of psoriasisand celiac disease; assess for evidence of psoriatic arthritis. TECHNIQUE: Frontal, lateral, oblique, and ball-catcher's view radiographsof the bilateral hands were obtained. COMPARISON: None FINDINGS: No bony erosion is identified. The visualized joint spaces are maintained.There is no dislocation or subluxation. Bony mineralization is within normallimits, and there is no fracture. There is no radiographically appreciable softtissue swelling or soft tissue calcification. There is positive ulnar variance bilaterally, with medial cysts in theproximal medial aspect of the lunates bilaterally, which could reflect ulnocarpal abutment.. IMPRESSION No evidence of erosive disease. Bilateral positive ulnar variance withfindings suggestive of ulnocarpal abutment. Jacinta Browne DO IMG DX ORDERABLES documented in this encounter Visit Diagnoses Diagnosis Arthralgia of both hands Psoriasis Other psoriasis Somatic complaints, multiple Other general symptoms Arthralgia of both hands documented in this encounter Care Teams Fertilizing Machine Operator Relationship Specialty Start Date End Date Tristan Soliman DO [address] [address] PCP - General 05/09/10 11/26/16 documented as of this encounter
--- OUTSIDE RECORDS SUMMARY | 2024-02-04 01:26 | XMS_ITS | Encounter Summary ---
Author Organization [facility] [place] [address] Care Team Providers Care Metrologist Name Role Phone Tristan Soliman DO Primary Care Provider [phone] Encounter Details Date Type Department Care Team (Late st Contact Info) Description 08/17/2016 External Results [place] [address] Yareli Morales MD [facility] [place] [address] Social History Tobacco Use Types Packs/Day Years [...] on filedocumented in this encounter Care Teams Metrologist Relationship Specialty Start Date End Date Tristan Soliman DO [address] [place] [address] PCP - General 05/09/10 11/26/16 documented as of this encounter
--- OUTSIDE RECORDS SUMMARY | 2024-02-04 01:26 | XMS_ITS | Encounter Summary ---
Author Organization [facility] [place] [address] Care Team Providers Care Communications Marketing Intern Name Role Phone Tristan Soliman Primary Care Provider Reason for Visit * Reason Onset Date Comments Prior Authorization 05/24/2016 [facility] admit [facility] Encounter Details Date Type Department Care Team (Late st Contact Info) Description 05/24/2016 [place] [phone] [place] [address] Prior Authorization ([facility] admit auth) Social History Tobacco Use Types Packs/Day Years [...] encounter Miscellaneous Notes * Telephone Encounter - Nano Murdock - 05/24/2016 1:27 PM EST Per fax from [employer] A# [id number] 05/21/16 - 05/21/16 emergency IPI with Maria Luz Hernandez MD??for F39 (ICD-10-CM) - Unspecified mood (affective) disorder. documented in this encounter Plan of Treatment Not on file documented as of this encounter Visit Diagnoses Not on filedocumented in this encounter Care Teams Communications Marketing Intern Relationship Specialty Start Date End Date Tristan Soliman DO [address] [facility] [address] [place] [address] PCP - General 05/09/10 11/26/16 documented as of this encounter
--- OUTSIDE RECORDS SUMMARY | 2024-02-04 01:26 | XMS_ITS | Encounter Summary ---
Author [facility] [place] [address] Care Team Providers Care Hand Assembler Name Role Phone Tristan Soliman Primary Care Provider Reason for Visit * Reason Onset Date Comments Prior Authorization 05/22/2016 [place] 05/21 IP PSY Encounter Details Date Type Department Care Team (Late st Contact Info) Description 05/22/2016 [place] [address] [place] [address] Prior Authorization ([place] 05/21/16 IP PSY) Social History Tobacco Use Types Packs/Day Years [...] * Telephone Encounter - Nano Murdock - 05/22/2016 9:37 AM EST Per response history [place] prime. Faxed [place] auth form, res form and H&P note to [phone] for 05/21/16 emergency IPI with Maria Luz Hernandez MD??for F39 (ICD-10-CM) - Unspecified mood (affective) disorder. documented in this encounter Plan of Treatment Not on file documented as of this encounter Visit Diagnoses Not on filedocumented in this encounter Care Teams Hand Assembler Relationship Specialty Start Date End Date Tristan Soliman DO [address] [place] [address] PCP - General 05/09/10 11/26/16 documented as of this encounter
--- OUTSIDE RECORDS SUMMARY | 2024-02-04 01:26 | XMS_ITS | Encounter Summary ---
Author Organization [facility] [place] [address] Care Team Providers Care Neonatal Doctor Name Role Phone Leonor Hendricks MD Primary Care Provider [phone] Reason for Visit * Consultation (Routine) - Closed Specialty Diagnoses / Procedures Referred By Contac t Referred To Contact Hematology and Oncology Diagnoses elevated WBCS Leonor Hendricks MD [address] [place] [address] [facility] [address] [place] [address] Referral ID Status Reason Start Date Expiration Date V isits Requested Visits Authorized [id number] Closed Consult, Test & Treat Connection Center 01/29/2017 01/29/2018 1 1 Encounter Details Date Type Department Care Team (Late st Contact Info) Description 03/18/2017 10:00 AM EDT Office Visit Hematology [place] [id number] Jose Ramon Barakat MD [facility] [address] [place] [address] Neutrophilic leukocytosis Social History Tobacco Use Types Packs/Day Years [...] Sign Reading Time Taken Comments Blood Pressure 138/80 03/18/2017 9:52 AM EDT Pulse 86 03/18/2017 9:52 AM EDT Temperature 36.3 ??C (97.3 ??F) 03/18/2017 9:52 AM ED T Respiratory Rate 18 03/18/2017 9:52 AM EDT Oxygen Saturation 100% 03/18/2017 9:52 AM EDT Inhaled Oxygen Concentration - - Weight 98 kg (216 lb) 03/18/2017 9:52 AM EDT Height 160 cm (5' 2.99) 03/18/2017 9:52 AM EDT Body Mass Index 38.27 03/18/2017 9:52 AM EDT documented in this encounter Progress Notes * Jose Ramon Barakat MD - 03/18/2017 10:00 AM EDT Heme/Onc Outpatient Consultation Date of Consultation: 03/18/17 Reason for Consult: We are seeing this patient at the request of Leonor Saldana MD [address] [place] [address] for the evaluation of leukocytosis/neutrophilia. I have reviewed the available records, interviewed and examined the patient. HIRO Sprague is a 46 y.o. female who was referred for evaluation of leukocytosis/neutrophilia. She has a hx of Misha's and psoriasis which have been under control. She reports feeling fatigued but her energy level has been stable over time. No fevers, chills, or weight loss. No recurrent infections. In general feeling pretty well. Her WBC count has been elevated for some time dating back to at least 2012. Patient Active Problem List Diagnosis Date Noted ??? Misha's thyroiditis 2016 ??? Anxiety 2016 ??? Psoriasis 03/12/2011 Past Medical History: Diagnosis Date ??? Mihsa's thyroiditis ??? Psoriasis Past Surgical History: Procedure Laterality Date ??? ABLATION OF DYSRHYTHMIC FOCUS ??? 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 Marital status: Spouse name: N/A ??? Number of children: N/A ??? Years of education: N/A Occupational History ??? Not on file. Social History Main Topics ??? Smoking status: Former Smoker Types: Cigarettes Quit date: 03/21/2015 ??? Smokeless tobacco: Never Used ??? Alcohol use No ??? Drug use: No ??? Sexual activity: Yes Partners: Male control/ protection: Surgical Other Topics Concern ??? Not on file Social History Narrative Allergies: Allergies Allergen Reactions ??? Stelara [Ustekinumab] Other (See Comments) Bxjnxikwz-pyfrzdg-cvtscyprj Medications: Current Outpatient Prescriptions Medication Sig Dispense Refill ??? SECUKINUMAB (COSENTYX, 2 SYRINGES, SUBQ) Inject subcutaneously. ??? LORazepam (ATIVAN) 0.5 mg Tablet TAKE ONE TABLET BY MOUTH TWICE A DAY NEEDED 1 ??? escitalopram (LEXAPRO) 10 mg Tablet Take 10 mg by mouth daily. ??? levothyroxine (SYNTHROID) 25 mcg Tablet Take 1 tablet by mouth daily. 90 tablet 3 ??? levonorgestrel-ethinyl estradiol (AVIANE;ALESSE;LESSINA) 0.1-20 mg-mcg Tablet Take 1 tablet by mouth daily. Reported on 2016 ??? cholecalciferol, Vitamin D3, (VITAMIN D-3) 2,000 unit Tablet Take by mouth daily. ??? traZODone (DESYREL) 50 mg Tablet Take 2 tablets by mouth nightly as needed for Sleep. (Patient taking differently: Take 25 mg by mouth nightly as needed for Sleep (Taking at most 50mg per night but in past week, has cut down to 25mg per night).) 10 tablet 2 No current facility-administered medications for this visit. Review of Systems Review of Systems - History obtained from the patient General ROS: positive for - fatigue Psychological ROS: anxiety Ophthalmic ROS: negative ENT ROS: negative Allergy and Immunology ROS: negative Hematological and Lymphatic ROS: negative for - night sweats or weight loss Endocrine ROS: negative Respiratory ROS: no cough, shortness of breath, or wheezing Cardiovascular ROS: no chest pain or dyspnea on exertion Gastrointestinal ROS: no abdominal pain, change in bowel habits, or black or bloody stools Genito-Urinary ROS: no dysuria, trouble voiding, or hematuria Musculoskeletal ROS: negative Neurological ROS: no TIA or stroke symptoms Dermatological ROS: positive for - psoriasis Physical Exam BP 138/80 (Patient Position: Sitting) Pulse 86 Temp 36.3 ??C (97.3 ??F) (Temporal) Resp 18 Ht 160 cm (5' 2.99) Wt 98 kg (216 lb) SpO2 100% BMI 38.27 kg/m2 General Appearance: Alert, cooperative, no distress, appears stated age Head: Normocephalic, without obvious abnormality, atraumatic Eyes: PERRL, conjunctiva/corneas clear, EOM's intact Nose: Nares normal, septum midline,mucosa normal, no drainage or sinus tenderness Throat: Lips, mucosa, and tongue normal; teeth and gums normal Neck: Supple, symmetrical, trachea midline, no adenopathy Back: Symmetric, no curvature, ROM normal, no CVA tenderness Lungs: Clear to auscultation bilaterally, respirations unlabored Heart: Regular rate and rhythm, S1 and S2 normal, no murmur, rub, or gallop Abdomen: Soft, non-tender, bowel sounds active all four quadrants, no masses, no organomegaly Extremities: Extremities normal, atraumatic, no cyanosis or edema Skin: Skin color, texture, turgor normal, no rashes or lesions Lymph nodes: Cervical, supraclavicular, and axillary nodes normal Neurologic: Normal No results found for this or any previous visit (from the past 24 hour(s)). Results for RUSLAN SPRAGUE ( ) as of 03/18/2017 10:52 Ref. Range 02/21/2012 10:14 06/30/2012 14:58 09/30/2012 10:56 02/26/2013 08:54 05/21/2016 12:04 05/23/201612:49 01/08/2017 14:53 WBC Latest Ref Range: 4.0 - 9.5 x10(3)/mcL 11.4 (H) 14.4 (H) 11.3 (H) 14.6 (H) 12.4 (H) 10.5 (H) Assessment and Plan Ruslan Sprague is a 46 y.o. female with a chronically elevated mild neutrophilia dating back to 2011. Given the chronicity and the fat that she is asymptomatic I have a low suspicion of a worrisome hematologic process. It is likely a marker for inflammation I will check CBC today JAK2 and BCR ABL to look for MPD or clonal process. If negative no further hematology f/u is needed. JOSE RAMON BARAKAT MD 03/18/2017 documented in this encounter Plan of Treatment Not on file documented as of this encounter Results * BCR-ABL1 (p210) by RT-PCR, Quantitative (03/18/2017 10:36 AM EDT) Pathologist [facility] BCR/ABL Report BCR-ABL1 Analysis by Quantitative RT-PCR [...] is used in quantitative reverse transcriptase PCR (QuantiJotky qPCR BCR-ABL IS Kit, RotoHog) for the detection of the e13/a2 or e14/a2 major breakpoint BCR-ABL transcripts corresponding to the p210 fusion protein. This assay is validated to detect these fusion transcripts at concentrations as low as 0.002% BCR-ABL1 (IS) or a log reduction of 4.7 (MR4.7). LIMITATIONS AND DISCLAIMERS: ??This assay is designed to detect the z096-ldxarehhed BCR-ABL1 transcripts (e13/a2 and e14/a2) only. This assay is not designed to detect p190 (e19/a2) or other less common BCR-ABL1 fusion transcripts. This test was developed and its performance characteristics determined by the [facility] at [facility] [place]. It has not been cleared or approved by the FDA. The laboratory is regulated under CLIA as qualified to perform high-complexity testing. This test is used for clinical purposes. It should not be regarded as investigational or for research. [facility] Comment: [VERIFIED DATE]03.22.17 Verified By:Earlene Zarate, Koffi De La Rosa Director, Molecular Pathology (Electronic Signature) Blood specimen (specimen) 03/18/2017 10:36 AM EDT 03/18/2017 11:46 AM EDT Narrative Resulting Agency Comment Spec In Lab Jose Ramon Barakat MD MOLECULAR ORDERABLES [facility] [place] [id number] * JAK2 (03/18/2017 10:36 AM EDT) JAK2 [...] [facility] at [facility] [place]. It has not been cleared or approved by the FDA. The laboratory is regulated under CLIA as qualified to perform high-complexity testing. This test is used for clinical purposes. It should not be regarded as investigational or for research. [facility] Comment: [VERIFIED DATE]03.22.17 Verified By:Earlene Zarate, Koffi De La Rosa Director, Molecular Pathology (Electronic Signature) Blood specimen (specimen) 03/18/2017 10:36 AM EDT 03/18/2017 11:46 AM EDT Narrative Resulting Agency Comment Spec In Lab Jose Ramon Barakat MD HEMATOLOGY ORDERABLE S [facility] [place] [address] documented in this encounter Visit Diagnoses Diagnosis Neutrophilic leukocytosis Other specified disease of white blood cells documented in this encounter Care Teams Neonatal Doctor Relationship Specialty Start Date End Date Leonor Hendricks MD [address] [place] [address] PCP - General Family Medicine 11/27/16 documented as of this encounter
--- OUTSIDE RECORDS SUMMARY | 2024-02-04 01:26 | XMS_ITS | Encounter Summary ---
Author Organization [facility] [place] [address] Care Team Providers Care Manager Electronic Name Role Phone Leonor Hendricks MD Primary Care Provider [phone] Encounter Details Date Type Department Care Team (Late st Contact Info) Description 11/29/2016 External Results [place] [address] [facility] [place] [address] Misha's thyroiditis Social History Tobacco Use Types [...] Date/Time Associated Diagnosis Comments T3, FREE Routine 11/19/2016 Misha's thyroiditis documented in this encounter Results * (ABNORMAL) T3, free (11/19/2016) Free T3 2.2(EXTERNA L/ABN) Blood specimen (specimen) 11/19/2016 Yareli Morales MD CHEMISTRY ORDERABLES documented in this encounter Visit Diagnoses Diagnosis Misha's thyroiditis Chronic lymphocytic thyroiditis documented in this encounter Care Teams Manager Electronic Relationship Specialty Start Date End Date Leonor Hendricks MD [address] [place] [address] PCP - General Family Medicine 11/27/16 documented as of this encounter
--- OUTSIDE RECORDS SUMMARY | 2024-02-04 01:26 | XMS_ITS | Encounter Summary ---
[facility] [place] [address] Care Team Providers Care Manager Of Supply Chain Name Role Phone Leonor Hendricks MD Primary Care Provider [phone] Reason for Visit * Reason Comments Follow-up Psoriasis Encounter Details Date Type Department Care Team (Late st Contact Info) Description 01/11/2017 10:00 AM EDT Office Visit Dermatology at [address] [place] [address] Andreas Richardson MD [address] [facility] [place] [address] Psoriasis Social History Tobacco Use Types Packs/Day [...] Progress Notes * Andreas Richardson MD - 01/11/2017 10:00 AM EDT PROBLEM: 1. Followup, psoriasis, on Cosentyx since 09/2016. 2. Previous therapies included Stelara, Humira, Enbrel, cyclosporin, methotrexate, hydroxyurea, sulfasalazine, and Otezla. Jesika follows up and is doing beautifully. Cosentyx is working great for her. Her psoriasis has essentially cleared. She has minimal involvement on her knees, a little bit on her elbows, but she is entirely happy with the results and has had no side effects. She has, however, had some issues with the diagnosis of Misha's thyroiditis and is having stress symptoms, shakiness, unease far above her normal lifelong history of mild situational stress. She has been placed on control medication to try to suppress her menstrual cycle to see if there may be a hormonal etiology for this. Her Misha's thyroiditis appears to be adequately controlled at the moment, by her report. PHYSICAL EXAMINATION: Today reveals a pleasant, 46-year-old woman who has minimal psoriasis present, thin patches on the elbows and knees, but her arms, her legs, her hands, where she previously had large, thick plaques, all these areas have healed. The abdomen was well. A/P: Psoriasis control with Cosentyx. a. Continue Cosentyx 150 mg autoinjector pens. Inject 2 of these once monthly. b. Prior authorization is in place for her. c. A 6-month prescription was faxed in to get her through April. d. Recommend I see her again in another 6 months for repeat check to check on her progress. cc: Leonor Hendricks MD documented in this encounter Plan of Treatment Not on file documented as of this encounter Visit Diagnoses Diagnosis Psoriasis Other psoriasis documented in this encounter Care Teams Manager Of Supply Chain Relationship Specialty Start Date End Date Leonor Hendricks MD [address] [place] [address] PCP - General Family Medicine 11/27/16 documented as of this encounter
--- OUTSIDE RECORDS SUMMARY | 2024-02-04 01:26 | XMS_ITS | Encounter Summary ---
Author Organization [facility] [place] [address] Care Team Providers Care Case Loader Operator Name Role Phone Leonor Hendricks MD Primary Care Provider [phone] Reason for Referral * Consultation (Routine) - Closed Specialty Diagnoses / Procedures Referred By Contac t Referred To Contact Sleep Center Diagnoses Snoring Daytime sleepiness Anxiety Lucrecia Vang APRN [facility] [place] [address] [facility] Sleep Medicine [address] [place] [address] Referral ID Status Reason Start Date Expiration Date V isits Requested Visits Authorized [id number] Closed Test Only 2016 2017 1 1 Reason for Visit * Consultation (Routine) - Specialty Diagnoses / Procedures Referred By Contac t Referred To Contact Sleep Center Diagnoses Sleep concern Yareli Morales MD [facility] DR [place] [address] [facility] Sleep Medicine [address] [place] [address] Referral ID Status Reason Start Date Expiration Date V isits Requested Visits Authorized [id number] Consult, Test & Treat 10/19/2016 10/19/2017 1 1 Encounter Details Date Type Department Care Team (Late st Contact Info) Description 2016 1:00 PM EDT Office Visit Sleep Center at [address] [place] [address] Lucrecia Vang, ANTOINETTE [facility] [place] [address] Snoring; Daytime sleepiness; Anxiety Social History Tobacco Use Types Packs/Day Years [...] Sign Reading Time Taken Comments Blood Pressure 117/68 2016 12:35 PM EDT Pulse 87 2016 12:35 PM EDT Temperature - - Respiratory Rate 16 2016 12:3 5 PM EDT Oxygen Saturation 99% 2016 12: 35 PM EDT Inhaled Oxygen Concentration - - Weight 88.9 kg (195 lb 14.1 oz) 017 12:35 PM EDT Height 160 cm (5' 2.99) 2016 12: 35 PM EDT Body Mass Index 34.71 2016 12:35 PM EDT documented in this encounter Progress Notes * Lucrecia Vang, ANTOINETTE - 2016 1:00 PM EDT Sleep Medicine Consultation Note HPI: Jesika Sprague is a 46 y.o. female seen at the request of Dr. Yareli Morales MD, for advice regarding a sleep concern. She has been dealing with a lot of anxiety for 6-7 months and snores like a freight train. She recently started on levothyroxine, about a week now. Has been on SSRIs that didn't help but just started Lexapro a few weeks ago. She has had anxiety all her life but is having worse anxiety for unknown reasons the past 6-7 months. She sees a therapist and patient reports her therapist thinks it is something medical going on and that she has rather normal anxieties. HPI continues below. Sleep Pattern: Bed/Recliner/Wedge: bed # Pillows: 1 under head Bedtime: in bed 8-8:30p, Lights out: a half hour later, might read paper for half hour Position: stomach or back, not on sides Latency: 30-40mins, is asleep around 10-10:30p Awakenings: twice per night to void Duration: depends what time it is, if midnight or 1am, can fall asleep quicker than if up to void later in night--might be about 30 mins latency Wake time: 5:30a, wakes without alarm, wide awake and anxious Rise time: will lay there to fall back asleep but can't, though she is exhausted Sleep duration: guesses at 6 hours, doesn't feel like enough Respiratory: Snoring: yes, nightly and loud for several years Observed Apneas: hasn't noticed Mouth Breathing: at night, more of nasal breather during day Dry Mouth: sometimes, with sore throat Nocturnal Gasping: yes Nasal Obstruction: no Daytime Symptoms: [place]: 7, reports anything from mild-severe daytime sleepiness Upon Awakening: always unrefreshed and exhausted Naps: twice during the week; with trazodone, can sleep during day AND still go to bed at night Involuntary Dozing: rare Cognitive Symptoms: yes Driving: drives, drowsy as she would if she sits at home; she would gizzard puller or not even drive if very tired Close calls related to sleepiness: no Accidents related to sleepiness: no Other Associated Sleep Symptoms: Parasomnias: Sleep Walking: no Dream Enactment: no Bruxism: no Motor: RLS: no PLMS: she's everywhere at night, has blankets on floor Narcolepsy: Hallucinations: no Paralysis: no Cataplexy: no Family History: Family history of sleep disorders: father had deviated septum, mother snores, ROS: CON: weight change: from May 2016-November 2016 lost 43lbs, wasn't eating a lot--dealing with anxiety, thyroid issue, etc. ENT: Environmental allergies: no PUL: FREIRE: no CV: chest pain: not Palpitations: yes, gets all the time; had cardiac ablation--tissue blocking a valve; EKG and Holter monitor show NSR LE edema: no GI: GERD: no : Nocturia: once or twice at most MSK: Pain: no NEURO: sleep related headaches: no PSY: Depressed Mood: yes, just started Lexapro about two weeks ago (Prozac, Zoloft didn't help) Anxiety: yes, lorazepam helps Past Surgical History: Past Surgical History: Procedure Laterality Date ??? ABLATION OF DYSRHYTHMIC FOCUS Past Medical History: No past medical history on file. Problem List: Patient Active Problem List Diagnosis Code ??? Psoriasis L40.9 Medications: Outpatient Prescriptions Marked as Taking for the 12/24/16 encounter (Office Visit) with Lucrecia Vang APRN Medication Sig Dispense Refill ??? levothyroxine (SYNTHROID) 25 mcg Tablet Take 1 tablet by mouth daily. 90 tablet 3 ??? levonorgestrel-ethinyl estradiol (AVIANE;ALESSE;LESSINA) 0.1-20 mg-mcg Tablet Take 1 tablet by mouth daily. Reported on 2016 ??? LORazepam (ATIVAN) 1 mg Tablet Take 1 mg by mouth 3 times daily as needed. 2 ??? traZODone (DESYREL) 50 mg Tablet Take 2 tablets by mouth nightly as needed for Sleep. 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 Other drugs: none PE: BP 117/68 Pulse 87 Resp 16 Ht 160 cm (5' 2.99) Wt 88.9 kg (195 lb 14.1 oz) SpO2 99% BMI 34.71 kg/m2 General: 46yo F, NAD Eyes: PERRL, conjunctiva clear ENT: oropharynx MP: 1 Crowded: narrow airway, with MP1, high hard palate Dentition: adequate Mandibular structure and position: normal occlusion NECK: Submental fat present: yes, supple, no LAD, no thyroid enlargement Circumference: 16 inches LUNGS: respirations even and unlabored; CTA, no adventitious lung sounds CV: RRR, no m/g/r no LE edema ABD: BS+, soft, non-tender NEURO: gait and station normal, slight bilateral hand tremor SKIN: warm and dry PSYCH: Alert and appropriate: yes Oriented to person, place and time: AOx3 Affect: normal Judgement and insight: intact Assessment: Jesika Sprague is a 46 y.o. female with a history of nightly and loud snoring, nocturnal gasping, unrefreshed sleep, mild-severe daytime sleepiness that varies, daytime cognitive difficulty. She recently started on levothyroxine, about a week now, for recently diagnosed Misha's thyroid. Has been on SSRIs, Prozac and Zoloft, that didn't help but just started Lexapro a few weeks ago. She has had anxiety all her life but is having worse anxiety for unknown reasons the past 6-7 months where she will wake at 5:30a daily, is wide awake, anxious, and exhausted. She sees a therapist and patient reports her therapist thinks it is something medical, otherwise has normal anxieties. Patient takes lorazepam PRN--one tablet in morning and a half tablet in afternoon, has tapered her trazodone to 25mg QHS, and d/c'd propanolol. Patient has lost 43lbs since May 2016 due to anxiety, worry. She reports palpitations but had EKG and Holter monitor tests in 2015 which show normal sinus rhythm. Her physical exam is signficant for BMI of 35, shallow pharynx, high hard palate, submental fat, a neck girth of 16 inches, bilateral hand tremor. Significant comorbidities include Misha's thyroid, anxiety, psoriasis. The history and symptoms are suggestive of obstructive sleep apnea. The diagnosis of obstructive sleep apnea was reviewed in detail with the patient at this time. Potential consequences of untreated obstructive sleep apnea reviewed. Treatment options reviewed in detail. Questions regarding diagnosis and management answered at this time. The patient confirms that study results can be called to [phone] (M) and a detailed message left if they are not available for call. Recommendations: --Home sleep apnea test --Printed handout given to patient on Sleep Apnea Facts & Figures --Role of weight loss reviewed --Safe driving precautions reviewed with the patient. The patient indicates understanding of these issues and agrees with the plan. Lucrecia Vang APRN Cc: Leonor Hendricks MD, Yareli Morales MD documented in this encounter Plan of Treatment Scheduled Referrals Name Type Priority Associated Diagnoses Orde r Schedule Referral to Sleep Disorders Center Outpatient Referral Routine Snoring Daytime sleepiness Anxiety Ordered: 2016 documented as of this encounter Visit Diagnoses Diagnosis Snoring Other dyspnea and respiratory abnormality Daytime sleepiness Anxiety Anxiety state, unspecified documented in this encounter Care Teams Case Loader Operator Relationship Specialty Start Date End Date Leonor Hendricks MD [address] [place] [address] PCP - General Family Medicine 11/27/16 documented as of this encounter
--- OUTSIDE RECORDS SUMMARY | 2024-02-04 01:26 | XMS_ITS | Encounter Summary ---
Author Organization [facility] [place] [place] [address] Care Team Providers Care Emergency Care Tech Name Role Phone Tristan Soliman DO Primary Care Provider Encounter Details Date Type Department Care Team (Late st Contact Info) Description 05/24/2016 4:45 PM EST Interpretation Only Cardiology at [address] [phone] Teo Crystal Jr., MD [address] [place] [address] Palpitations Social History Tobacco Use Types Packs/Day Years [...] Procedure Name Priority Date/Time Associated Diagnosis Comments ROPE SILICA MACHINE OPERATOR SCAN 05/24/2016 12:00 AM EST HOLTER MONITOR 24 HOUR Routine 05/24/2016 documented in this encounter Results * SCAN DOC: ROPE SILICA MACHINE OPERATOR (05/24/2016 12:00 AM EST) Anatomical Region Laterality Modality Other Scanning Provider MEDIA MGR SCAN EXT O RDR/RSLT * Holter Monitor 24hr (05/24/2016) Anatomical Region Laterality Modality Other Narrative 05/24/2016 Jesikavasile Sprague ?: 1970 PCP: Tristan Soliman DO Ordering: Roberto Fonseca MD Holter Report- [facility], [address] [facility] [address] Date of application: 05/20/2016 ?Date of Scan: 05/24/2016 ? Date of Interpretation: 05/24/2016 Indication: palpitations Baseline Rhythm: NSR Symptoms: log kept- no log Report: Minimum HR: 46 (at night) Average HR: 72 Maximum HR: 112 Ventricular- VPC: 2 Couplets: 0 VT: 0 Atrial- APC: 6 Couplets: 1 SVT: 0 Summary: ?NSR throughout, rare APC and VPC, no higher grade ectopy Electronically signed: Teo Crystal Jr, MD FACC ??Date: 05/24/2016 Historical Provider CARDIAC SERVICES ORDERABLES documented in this encounter Visit Diagnoses Diagnosis Palpitations documented in this encounter Care Teams Emergency Care Tech Relationship Specialty Start Date End Date Tristan Soliman DO [address] [place] [address] PCP - General 05/09/10 11/26/16 documented as of this encounter
--- OUTSIDE RECORDS SUMMARY | 2024-02-04 01:26 | XMS_ITS | Encounter Summary ---
Author Organization [facility] [place] [address] Care Team Providers Care Implementation Project Manager Name Role Phone Leonor Hendricks MD Primary Care Provider [phone] Encounter Details Date Type Department Care Team (Late st Contact Info) Description 03/18/2017 2:00 PM EDT Office [place] [phone] Jacinta Browne, [facility] [place] [address] Psoriasis; Immunosuppressed status; High risk medication use; Psoriatic arthritis Social History Tobacco Use Types Packs/Day Years [...] as of this encounter Progress Notes * Jacinta Browne, - 03/18/2017 2:00 PM EDT History of Present Illness: 3. Ms. Poole presents for follow-up of her psoriatic arthritis. She has been on Actos Entex for sometime and notes it is working well for her. She has improved skin disease though she still has some active psoriatic lesions on her left elbow and bilateral knees and left lateral ankle as well as a few spots on her hands. She denies any joint swelling, a.m. stiffness. She reports she is able do most and she wants to do. She has noted some increased fatigue and not feeling well around the time of her menses. She is following with REHABILITATION SERVICES AIDE for this and was initiated on OCPs with skipping the placebo week in order to suppress her symptoms. She is not felt that this is been particularly successful andshe is continued spotting and having the symptoms despite these interventions. She is tolerating the Cosentyx without any issues. Denies any fevers chills sweats, GI symptoms. She notes some occasional tremulousness and has upcoming appointments with endocrinology for her thyroid as well as her reports of hypoglycemia to blood sugars less than 70 which are symptomatic. Background history: Jesika Sprague is a 46 y.o. female [...] next . She is also seeing a outpatient program coordinator who reports that her cortisol testing is off. The outpatient program coordinator felt aln on her neck during the exam and an US confirmed the ln and a CT neck was completed today. Since she has been off of therapy for her psoriasis it has been quite active on her hands, dorsum of her feet, knees and elbows. Her high voltage electrician wants to start cosentyx but she wanted to hold off until her other symptoms improved. Psoriasis treatment Stelara it worked well for her psoriasis. She was on it 1 year. mtx made her ill shannan did not work She notes some pip [...] ??? Not on file Social History Narrative quit the e cig in may No drugs Physical Examination: There were no vitals taken for this visit. See vitals from appointment in hematology oncology [...] or periungual erythema noted. But has nail english on Neurologic: gait nl from all ext Skin: Psoriasis on the right hand over the dorsal surface several small spots, and over the feet, over left elbow bilateral knees. Laboratory Data: reviewed Studies: Impression/Recommendations : Jesika Sprague is a 46 y.o. female with a history of psoriatic arthritis currently on Cosentyx. Arthralgias: Joint disease may be due to psoriatic arthritis however no swelling on exam today and seems to be well controlled on the medication. Labs and x-rays were within normal limits. High risk medication labs up to date were completed today. Patient is due for her pneumonia and fluvaccinations. These were provided Psoriasis skin disease is well controlled. She has some active disease on the elbow, ankles, will add clobetasol for her rash which she can use 2 weeks out of the month. Follow-up in 6 months sooner with any changes CC: Leonor eHndricks MD documented in this encounter Plan of Treatment Not on file documented as of this encounter Visit Diagnoses Diagnosis Psoriasis Other psoriasis Immunosuppressed status Unspecified disorder of immune mechanism High risk medication use Encounter for long-term (current) use of other medications Psoriatic arthritis Psoriatic arthropathy documented in this encounter Care Teams Implementation Project Manager Relationship Specialty Start Date End Date Leonor Hendricks MD [address] [place] [address] PCP - General Family Medicine 11/27/16 documented as of this encounter
--- OUTSIDE RECORDS SUMMARY | 2024-02-04 01:26 | XMS_ITS | Encounter Summary ---
Author [place] [address] Care Team Providers Care Professor Of German Name Role Phone Tristan Soliman DO Primary Care Provider Encounter Details Date Type Department Care Team (Latest Contact Info) Description 09/12/2016 1:27 PM EDT - 09/12/2016 2:03 PM EDT Hospital [place] [address] Errol Crowley, [place] [address] [place] [address] Other intra-abdominal and pelvic swelling, mass and lump Discharge Disposition: Home Social History Tobacco Use [...] Name Priority Date/Time Associated Diagnosis Comments US TRANSVAGINAL NON OB Routine 09/12/2016 2:40 PM EDT Other intra-abdominal and pelvic swelling, mass and lump documented in this encounter Results * US Transvaginal Non OB (09/12/2016 2:40 PM EDT) Anatomical Region Laterality Modality Ultrasound 09/12/2016 2:31 PM EDT Impressions 09/12/2016 3:25 PM EDT ??Ultrasound Dictation: Addendum: The workflow coordinator spoke with Errol Crowley [place] to confirm receipt of radiology report at 9:03am on 10/17/2016. 1. ??Complex indeterminate right ovarian lesion measuring approximately 2.5 cm in diameter with both cystic and a more solid component seen, with associated peripheral vascularity and also suspected small amount of vascularity seen within the more solid component. The demonstrated vascularity would argue against this representing a hemorrhagic corpus luteal cyst. A dermoid is a consideration. Suggest ultrasound follow-up in 8 weeks for further characterization to confirm stability or resolution. Gynecologic consultation is advised. 2. ??Normal left ovary. 3. ??No free fluid in the cul-de-sac. I have personally reviewed the image(s) and the residents interpretation and agree with the findings, Jacinta Harmon at 09/12/2016 3:18 PM ?Jacinta Harmon MD Electronically Signed Corrected Final Report ??10/17/2016 10:04 am Narrative 09/12/2016 3:25 PM EDT Gynecological Report ? (Corrected Final 10/17/2016 10:04 ? am) PATIENT INFO: ID #: ? [id number] ?: ??[birth year] (45 yrs) Name: ? RUSLAN CHAIREZ ? Visit Date: 09/12/2016 02:31 pm PERFORMED BY: Performed By: ? Esme DONG, ??Lauren Attending: ?Eden JHAVERI, Jacinta Fine Associate: ?Kyler Cortez MD Referred By: ?ERROL CROWLEY ND Location: ? [facility] SERVICE(S) PROVIDED: ??UTV - Transvaginal - [id number] ?[id number] INDICATIONS: ??ovarian lesion noted on u/s done at [facility] 2 ??weeks ago, please f/u and evaluate COMPARISON: None available. -------- HISTORY: -------- Age: ?? 45 LMP: ?? 08/17/16 ?Day Of Cycle: ?? 27 ------- UTERUS: ------- Uterus: ? Visualized Position: ?? Anteverted Size (cm) ?L: ??9.4 ? W: ?? 5.6 ?H: ??3.8 ENDOMETRIUM: Endometrium: ?Normal appearance Thickness(mm): ?11.0 ------- CERVIX: ------- Multiple Nabothian cysts seen CUL-DE-SAC: No fluid seen. RIGHT OVARY: Status: ?? Visualized Size (cm) ?L: ??4.5 ? W: ?? 3.3 ?H: ??3.09 Vol (ml): ?24.0 Type: ?? Complex lesion Size (cm) ?L: ??2.6 ? W: ?? 2.5 ?H: ??2.5 Vol (ml): ?8.5 LEFT OVARY: Status: ?? Visualized Size (cm) ?L: ??2.9 ? W: ?? 2.0 ?H: ??2.1 Vol (ml): ?6.4 Morphology: ?Normal appearance Procedure Note Jacinta Harmon MD - 10/17/2016 Gynecological Report (Corrected Final 10/17/2016 10:04 am) PATIENT INFO: ID #: [id number] : [birth year] (45 yrs) Name: RUSLAN CHAIREZ Visit Date: 09/12/2016 02:31 pm PERFORMED BY: Performed By: Lauren Victoria RDMS Attending: Jacinta Harmon MD Associate: Kyler Cortez MD Referred By: ERROL CROWLEY ND Location: [facility] SERVICE(S) PROVIDED: UTV - Transvaginal - [id number] INDICATIONS: ovarian lesion noted on u/s done at [facility] 2 weeks ago, please f/u and evaluate COMPARISON: None available. -------- HISTORY: -------- Age: 45 LMP: 08/17/16 Day Of Cycle: 27 ------- UTERUS: ------- Uterus: Visualized Position: Anteverted Size (cm) L: 9.4 W: 5.6 H: 3.8 ENDOMETRIUM: Endometrium: Normal appearance Thickness(mm): 11.0 ------- CERVIX: ------- Multiple Nabothian cysts seen CUL-DE-SAC: No fluid seen. RIGHT OVARY: Status: Visualized Size (cm) L: 4.5 W: 3.3 H: 3.09 Vol (ml): 24.0 Type: Complex lesion Size (cm) L: 2.6 W: 2.5 H: 2.5 Vol (ml): 8.5 LEFT OVARY: Status: Visualized Size (cm) L: 2.9 W: 2.0 H: 2.1 Vol (ml): 6.4 Morphology: Normal appearance IMPRESSION Ultrasound Dictation: Addendum: The workflow coordinator spoke with Errol Crowley [place] to confirm receipt of radiology report at 9:03am on 10/17/2016. 1. Complex indeterminate right ovarian lesion measuring approximately 2.5 cm in diameter with both cystic and a more solid component seen, with associated peripheral vascularity and also suspected small amount of vascularity seen within the more solid component. The demonstrated vascularity would argue against this representing a hemorrhagic corpus luteal cyst. A dermoid is a consideration. Suggest ultrasound follow-up in 8 weeks for further characterization to confirm stability or resolution. Gynecologic consultation is advised. 2. Normal left ovary. 3. No free fluid in the cul-de-sac. I have personally reviewed the image(s) and the residents interpretation and agree with the findings, Jacinta Harmon at 09/12/2016 3:18 PM Jacinta Harmon MD Electronically Signed Corrected Final Report 10/17/2016 10:04 am Errol Crowley ND IMG US PELVIC ORDE JULIO documented in this encounter Visit Diagnoses Diagnosis Other intra-abdominal and pelvic swelling, mass and lump documented in this encounter Care Teams Professor Of German Relationship Specialty Start Date End Date Tristan Soliman DO [address] [place] [address] PCP - General 05/09/10 11/26/16 documented as of this encounter
--- OUTSIDE RECORDS SUMMARY | 2024-02-04 01:26 | XMS_ITS | Encounter Summary ---
[place] [address] Care Team Providers Care Sheet Rock Hanger Name Role Phone Tristan Soliman DO Primary Care Provider Reason for Referral * Diagnostic Test (Routine) - Closed Specialty Diagnoses / Procedures Referred By Contac t Referred To Contact Radiology Diagnoses Cervical lymphadenopathy Procedures CT Neck Soft Tissue w Contrast (Generic) Kylee Austin [place] [address] [place] [address] [facility] [place] [address] Referral ID Status Reason Start Date Expiration Date V isits Requested Visits Authorized [id number] Closed Specialty Service Requested 09/13/2016 09/13/2017 1 1 Reason for Visit * Diagnostic Test (Routine) - Closed Specialty Diagnoses / Procedures Referred By Contac t Referred To Contact Radiology Diagnoses Cervical lymphadenopathy Procedures CT Neck Soft Tissue w Contrast (Generic) Kylee Austin ND [address] [place] [address] [facility] [place] [address] Referral ID Status Reason Start Date Expiration Date V isits Requested Visits Authorized [id number] Closed Specialty Service Requested 09/13/2016 09/13/2017 1 1 Encounter Details Date Type Department Care Team (Latest Contact Info) Description 09/19/2016 7:44 AM EDT - 09/19/2016 10:59 AM EDT Hospital [place] [address] Kylee Austin, [place] [address] [place] [address] Cervical lymphadenopathy Discharge Disposition: Home Social History Tobacco Use [...] Sig Dispensed Refills Start Date End Date sertraline (ZOLOFT) 100 mg TabletIndications:Arthr algia of [...] Tablet Reported on 09/19/2016 1 12/16/2015 017 documented as of this encounter Plan of Treatment Not on file documented as of this encounter Procedures Procedure Name Priority Date/Time Associated Diagnosis Comments CT NECK SOFT TISSUE W CONTRAST Routine 09/19/2016 8:16 AM EDT Cervical lymphadenopathy documented in this encounter Results * CT Neck Soft Tissue w Contrast (Generic) (09/19/2016 8:16 AM EDT) Anatomical Region Laterality Modality Neck, Head Computed Tomogra phy Impressions 09/19/2016 9:45 AM EDT 1. ??Small intraparotid lymph node within the left parotid gland without evidence for additional mass. 2. ??Prominent, though morphologically normal-appearing lymph node in the left neck corresponding to the target identified in the comparison ultrasound examination. I have personally reviewed the image(s) and the residents interpretation and agree with the findings, Anastacia Kimball at 09/19/2016 9:45 AM Narrative 09/19/2016 9:45 AM EDT EXAMINATION: CT NECK SOFT TISSUE W CONTRAST (GENERIC) CLINICAL HISTORY: localized enlarged lymph nodes TECHNIQUE: CT of the neck performed after the IV administration of 110 cc Omnipaque 350. COMPARISON: Neck ultrasound from September 12, 2016. FINDINGS: A prominent in size, and a morphologically normal-appearing lymph node is identified in the left neck, corresponding to the target identified on the comparison ultrasound examination. This node measures 2.2 cm craniocaudal by 1 cm transverse by 1.2 cm AP. The remaining lymph nodes in the left and right neck are all normal in size and morphology. The parotid glands, submandibular glands, and thyroid gland are all normal appearing. There is a small intraparotid lymph node posterior to the vein in the posterior superficial left parotid gland. No additional intraparotid mass is identified. No mass identified in the aerodigestive tract. Frothy secretions are present in the left sphenoid sinus. Visualized intracranial contents are normal. No lytic or blastic osseous lesion. The lung apices are clear. Procedure Note Anastacia Kimball MD - 09/19/2016 EXAMINATION: CT NECK SOFT TISSUE W CONTRAST (GENERIC) CLINICAL HISTORY: localized enlarged lymph nodes TECHNIQUE: CT of the neck performed after the IV administration of 110cc Omnipaque 350. COMPARISON: Neck ultrasound from September 12, 2016. FINDINGS: A prominent in size, and a morphologically normal-appearing lymph nodeis identified in the left neck, corresponding to the target identified onthe comparison ultrasound examination. This node measures 2.2 cm craniocaudalby 1 cm transverse by 1.2 cm AP. The remaining lymph nodes in the left andright neck are all normal in size and morphology. The parotid glands, submandibularglands, and thyroid gland are all normal appearing. There is a small intraparotidlymph node posterior to the vein in the posterior superficial left parotidgland. No additional intraparotid mass is identified. No mass identified in the aerodigestive tract. Frothy secretions arepresent in the left sphenoid sinus. Visualized intracranial contents are normal. No lytic or blastic osseouslesion. The lung apices are clear. IMPRESSION 1. Small intraparotid lymph node within the left parotid gland withoutevidence for additional mass. 2. Prominent, though morphologically normal-appearing lymph node in theleft neck corresponding to the target identified in the comparison ultrasound examination. I have personally reviewed the image(s) and the residents interpretationand agree with the findings, Anastacia Kimball at 09/19/2016 9:45 AM Kylee Austin [place] [facility]LES documented in this encounter Visit Diagnoses Diagnosis Cervical lymphadenopathy Enlargement of lymph nodes documented in this encounter Administered Medications Inactive Administered Medications - up to 3 most recent administrations Medication Order MAR Action Action Date Dose Rate Site iohexol (OMNIPAQUE) 350 mg/mL solution 38,500 mg 38,500 mg (110 mL), Intravenous, ONCE PRN, 1 dose, Starting on Sat09/19/16 at 0817, Until Sat09/19/16 at 0818, Per Protocol, Warning Vesicant/Irritant Medication , Routine Given 09/19/2016 8:18 AM EDT 38,500 mg documented in this encounter Care Teams Sheet Rock Hanger Relationship Specialty Start Date End Date Tristan Soliman DO [address] [place] [address] PCP - General 05/09/10 11/26/16 documented as of this encounter
--- OUTSIDE RECORDS SUMMARY | 2024-02-04 01:26 | XMS_ITS | Encounter Summary ---
Author Organization [facility] Address [facility] [place] [address] Care Team Providers Care Driller Operator Name Role Phone Leonor Hendricks MD Primary Care Provider [phone] Reason for Visit * Reason Comments Immunodeficiency * Consultation (Routine) - Closed Specialty Diagnoses / Procedures Referred By Contac t Referred To Contact Allergy Diagnoses Ming's thyroiditis. Pt is being followed by endocrinology and her thyroid studies are ok except for T3 is a little low. This is not the cause of her anxiety symptoms. Pt is concerned about her immune system and she has some allergy that is triggering these symptoms Leonor Hendricks MD [address] [place] [address] [facility] [address] [place] [address] Referral ID Status Reason Start Date Expiration Date V isits Requested Visits Authorized [id number] Closed [facility] 11/27/2016 11/27/2017 1 1 Encounter Details Date Type Department Care Team (Late st Contact Info) Description 01/08/2017 2:00 PM EDT [place] [address] Crystal Sood MD [facility] [address] [place] [address] Recurrent pneumonia; Autoimmune disease Social History Tobacco Use Types Packs/Day Years [...] Sign Reading Time Taken Comments Blood Pressure 127/72 01/08/2017 1:53 PM EDT Pulse 86 01/08/2017 1:53 PM EDT Temperature - - Respiratory Rate 20 01/08/2017 1:53 PM EDT Oxygen Saturation - - Inhaled Oxygen Concentration - - Weight 83.5 kg (184 lb) 01/08/2017 1:53 PM EDT Height 160 cm (5' 3) 01/08/2017 1:53 PM EDT Body Mass Index 32.59 01/08/2017 1:53 PM EDT documented in this encounter Patient Instructions * Patient Instructions* Crystal Sood MD - 01/08/2017 2:00 PM EDT Get lab testing. Return: depending on results documented in this encounter Progress Notes * Crystal Sood MD - 01/08/2017 2:00 PM EDT CC: immune problems HPI: Jesika Sprague is a 46 y.o. female with a PMH of ming's, psoriasis, and possible celiac presenting for evaluation of immune disorders at the request of Leonor Hendricks. The patient reports that she's been sick for the past 7 months and wants to know why her immune system is so bad and if there is anything she can do for it. Her main concern is autoimmune disease. She has a history of Ming's and psoriasis which were diagnosed about 20 years ago. She is not sure if she has underlying allergies. She states that she was told that blood testing was consistent with possible celiac but this was not seen on biopsy even though she was eating gluten at the time of the biopsy. She's been avoiding gluten for 4 weeks now and is not sure if she has this diagnosis or not. She denies a known history of seasonal allergies, food allergies, asthma or wheezing, eczema, or chronic hives. Infectious history: The patient admits to a history of UTIs. She admits to 2 episodes of pneumonia,one in 2013, and one in 2016. She was a smoker at the time. She states it was diagnosed on chest x-ray and did not require hospitalization. She denies a history of sinus infections, otitis media, bloo dstream infections, meningitis, recurrent GI infections, cellulitis, severe warts, thrush, abscesses. She has been on several immunosuppressants due to her history of psoriasis over the years includingStellara, Humira, methotrexate, cyclosporine, steroid creams, and is now on cosentyx. She also has a history of persistent leukocytosis of uncertain etiology. ROS is per HPI plus she admits to weight loss, fatigue, blurry eyes, fullness in her ears, loss of smell, bad breath, irregular heartbeat eczema, joint pains, depression, anxiety, heat intolerance, thyroid problems. Review of systems is otherwise negative. Patient Active Problem List Diagnosis Code ??? Psoriasis L40.9 ??? Ming's thyroiditis E06.3 ??? Anxiety F41.9 Past Medical History: Diagnosis Date ??? Celiac disease uncertain ??? Ming's thyroiditis ??? Psoriasis Past Surgical History: Procedure Laterality Date ??? ABLATION OF DYSRHYTHMIC FOCUS ??? CYST REMOVAL ??? escitalopram (LEXAPRO) 10 mg Tablet ??? levothyroxine (SYNTHROID) 25 mcg Tablet ??? levonorgestrel-ethinyl estradiol (AVIANE;ALESSE;LESSINA) 0.1-20 mg-mcg Tablet ??? cholecalciferol, Vitamin D3, (VITAMIN D-3) 2,000 unit Tablet ??? traZODone (DESYREL) 50 mg Tablet ??? SECUKINUMAB (COSENTYX, 2 SYRINGES, SUBQ) ??? LORazepam (ATIVAN) 0.5 mg Tablet Allergies Allergen Reactions ??? Stelara [Ustekinumab] Other (See Comments) Byjkjwksq-pogxajx-xcuicfnem Family History Problem Relation Age of Onset ??? Eczema Maternal Aunt ??? Eczema Maternal Grandfather Social History Social History ??? Marital status: [...] ??? 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 There is no central a/c. There is a pellet woodstove. The patient has seen mice around the home. There is no known mold or mildew. The patient does not live on a farm. The patient is not exposed to farm animals. Pets: none PHYSICAL EXAM: BP 127/72 (BP Location (NBP): Right arm, Patient Position: Sitting, BP Cuff Sizes: Large Adult (32-43 cm)) Pulse 86 Resp 20 Ht 160 cm (5' 3) Wt 83.5 kg (184 lb) BMI 32.59 kg/m2 Gen: AAOx3, no acute distress HEENT: Tympanic membranes clear, no lesions, erythema, or drainage. Conjunctiva not injected. Nasalpassages show pink turbinates bilaterally. OP clear without erythema or cobblestoning. NECK: supple, no lymphadenopathy CVS: RRR, no m/r/g LUNGS: CTAB, no wheezing or rales ABD: soft, non-tender, non-distended SKIN: erythematous, scaly plaques on knees, hyperpigmented scars on hands EXTREMITIES: warm and well-perfused, no edema ASSESSMENT AND PLAN: 46 y.o. female with multiple autoimmune diseases including Ming's and psoriasis who has been on immunosuppressants. She has concern for celiac but her biopsy did not show this. She has a historyof pneumonia x 2 and leukocytosis of uncertain etiology. Will screen for immune deficiency based onautoimmunity and multiple PNA, but overall my suspicion for a primary immune deficiency is low. Given her history of immunosuppressants such as humira, she could have secondary immune deficiency. If work up unrevealing, she may need heme referral for persistent leukocytosis. - orders below - return as needed (pending results) Orders Placed This Encounter Procedures ??? Immunoglobulins, Quantitative ??? CBC (with Diff) ??? Comprehensive metabolic panel (non-fasting) ??? Peripheral Smear Review ??? _Urinalysis with microscopic ??? S pneumoniae Antibody IgG, 23 serotypes ??? Tetanus Toxoid Antibody, IgG ??? Diphtheria Toxoid IgG Antibody ??? Complement, Total ??? Hemogram ??? Differential, Automated ??? Scan, Peripheral Blood ADDENDUM: smear shows mild absolute neutrophilia which is nonspecific, and likely represents a reactive response. No concerning findings. CBC/diff shows leukocytosis with PMN predominance and some immature grans (WBC 10.5, ANC 6770). No other findings. CBC in May 2016 for comparison showedsimilar pattern but levels were higher. Immunoglobulins and specific antibody titers WNL. CH50 WNL.Urinalysis was not a clean catch with multiple squams so results unreliable. No evidence of immune deficiency - will recommend PCP follow up for persistent leukocytosis and repeat urinalysis. Sent message via [employer] as patient had already contacted me through that outlet. Crystal Sood MD documented in this encounter Plan of Treatment Not on file documented as of this encounter Procedures Procedure Name Priority Date/Time Associated Diagnosis Comments _URINALYSIS WITH MICRSOCOPIC Routine 01/08/2017 2:56 PM EDT Recurrent pneumonia PATHOLOGY SLIDE REVIEW Routine 2:53 PM EDT Recurrent pneumonia IMMUNOGLOBULINS, QUANTITATIVE Routine 01/08/2017 2:53 PM EDT Recurrent pneumonia SCAN, PERIPHERAL BLOOD Routine 7 2:53 PM EDT HEMOGRAM Routine 01/08/2017 2:53 PM EDT Recurrent pneumonia DIFFERENTIAL, AUTOMATED Routine 01/08/2017 2:53 PM EDT Recurrent pneumonia DIPHTHERIA TOXOID IGG ANTIBODY Routine 01/08/2017 2:53 PM EDT Recurrent pneumonia S PNEUMONIAE ANTIBODY IGG, 23 SEROTYPES Routine 01/08/2017 2:53 PM EDT Recurrent pneumonia TETANUS TOXOID ANTIBODY, IGG Routine 01/08/2017 2:53 PM EDT Recurrent pneumonia CBC (WITH DIFF) Routine 01/08/2017 2:53 PM EDT Recurrent pneumonia COMPLEMENT, TOTAL Routine 01/08/2017 2:5 3 PM EDT Recurrent pneumonia COMPREHENSIVE METABOLIC PANEL Routine 01/08/2017 2:53 PM EDT Recurrent pneumonia PATHOLOGY SLIDE REVIEW Routine 7 2:45 PM EDT documented in this encounter Results * (ABNORMAL) _Urinalysis with microscopic (01/08/2017 2:56 PM EDT) Glucose, Urine Dipstick Negative Negative mg/dL [facility] Protein, Urine Dipstick 30(A) Negative mg/dL [facility] Bilirubin, Urine Dipstick Negative Negative mg/dL [facility] Comment: Clinical correlation required for positive Urine Bilirubin results as false positive may occur with some drugs and drug related products. If a false positive is suspected a serum total bilirubin should be considered if clinically indicated. Urobilinogen, Urine Dipstick Normal Normal mg/dL [facility] pH, Urn (dipstick) 5.0 5.0 - 8.0 [facility] Blood, Urine Dipstick Negative Negative mg/dL [facility] Ketone, Urine Dipstick Negative Negative mg/dL [facility] Nitrite, Urine Dipstick Negative Negative [facility] Leukocytes, Urine Dipstick Large(A) Negative [facility] Appearance, Urine Dipstick Cloudy(A) Clear [facility] Specific [place] Urine Automated 1.027 1.002 - 1.030 [facility] Color, Urine Dipstick Yellow Yellow [facility] RBC, Urine 9(H) 0 - 4 /HPF [facility] WBC, Urine 11(H) 0 - 5 /HPF [facility] Bacteria, Urine Rare(A) None /HPF [facility] Squamous Epithelial Cells Raw Data, Urine 15(H) <=4 /HPF [facility] Transitional Epithelial Cells, Urine <1 <=1 /HPF [facility] Renal Epithelial Cells, Urine <1(H) <=0 /HPF [facility] Urine specimen (specimen) 01/08/2017 2:56 PM EDT 01/08/2017 3:00 PM EDT Narrative Resulting Agency Comment Spec In Lab Crystal Sood MD URINE ORDERABLES Performing Organization Address [facility]/ZIP Co de Phone Number [facility] [place] [address] * Scan, Peripheral Blood (01/08/2017 2:53 PM EDT) Pathologist [facility] Plat estimate Normal [facility] RBC Morphology Abnormal [facility] Ovalocytes 1-5 /HPF [facility] Blood specimen (specimen) 01/08/2017 2:53 PM EDT 01/08/2017 2:56 PM EDT Narrative Resulting Agency Comment Spec In Lab Crystal Sood MD HEMATOLOGY ORDERABLE S Performing Organization Address City/[facility]/ZIP Co de Phone Number [facility] [place] [address] * (ABNORMAL) Differential, Automated (01/08/2017 2:53 PM EDT) Neutrophil % 64.4 % [facility] Neutrophil Absolute 6.77(H) 1.70 - 6.10 x10(3)/mc L [facility] Lymph % 26.9 % [facility] Lymphocytes Abs 2.8 0.9 - 3.2 x10(3)/mc L [facility] Monocyte % 6.5 % [facility] Monocyte Abs 0.7 0.3 - 0.9 x10(3)/[facility] Eos % 1.0 % [facility] Eosinophils Abs 0.1 0.0 - 0.4 x10(3)/[facility] Basophil % 0.6 % [facility] Baso Absolute 0.1 0.0 - 0.1 x10(3)/[facility] Immature Gran % 0.60 % [facility] Comment: Immature granulocytes(IG's)percentage and absolute count will include metamyelocytes, myelocytes, and promyelocytes. Blood smears from CBCs yielding IG's will be scanned manually for concordance. If this scan disagrees with the automated IG or if promyelocytes are noted, a manual differential will be performed. Immature Gran Absolute 0.06(H) 0.00 - 0.04 x10(3)/[facility] Blood specimen (specimen) 01/08/2017 2:53 PM EDT 01/08/2017 2:56 PM EDT Narrative Resulting Agency Comment Spec In Lab Crystal Sood MD HEMATOLOGY ORDERABLE S [facility] [place] [address] * (ABNORMAL) Hemogram (01/08/2017 2:53 PM EDT) White Blood Cell 10.5(H) 4.0 - 9.5 x10(3)/[facility] Red Blood Cell 4.47 4.00 - 5.21 x10(6)/[facility] Hemoglobin 13.4 11.7 - 15.5 gm/dL [facility] Hematocrit 39.9 35.7 - 45.8 % [facility] Mean Cell Volume 89.3 82.6 - 94.4 fL [facility] Mean Cell Hemoglobin 30.0 27.1 - 32.0 pg [facility] Mean Cell Hemoglobin Concentration 33.6 31.7 - 35.0 gm/dL [facility] Platelet 236 145 - 357 x10(3)/mc L [facility] RDW Standard Deviation 43.2 37.0 - 46.0 [facility] RDW coefficient of variation 13.2 11.5 - 14.1 % [facility] Mean Platelet Volume 11.1 7.6 - 12.9 [facility] NRBC% auto 0.0 % [facility] NRBC Absolute 0.000 0.000 - 0.000 x10(3)/mc L [facility] Blood specimen (specimen) 01/08/2017 2:53 PM EDT 01/08/2017 2:56 PM EDT Narrative Resulting Agency Comment Spec In Lab Crystal Sood MD HEMATOLOGY ORDERABLE S Performing Organization Address [facility] Co de Phone Number [facility] [place] [address] * Complement, Total (01/08/2017 2:53 PM EDT) [facility] Complement, Total 59 30 - 75 unit/mL [facility] Comment: Test Performed by: [address] [address] Blood specimen (specimen) 01/08/2017 2:53 PM EDT 01/09/2017 8:46 AM EDT Narrative Resulting Agency Comment Spec In Lab Crystal Sood MD CHEMISTRY ORDERABLES Performing Organization Address [facility] Co de Phone Number [facility] [place] [address] * Diphtheria Toxoid IgG Antibody (01/08/2017 2:53 PM EDT) [facility] Diphtheria Ab (OCTOBER) Positive [facility] Comment: REFERENCE VALUE Vaccinated: Positive (>= 0.01 IU/mL) Unvaccinated: Negative (< 0.01 IU/mL) Test Performed by: [facility] - [address] [address] Diphtheria IgG Value (OCTOBER) 0.49 IU/mL [facility] Comment: Test Performed by: [facility] - [address] [address] Blood specimen (specimen) 01/08/2017 2:53 PM EDT 01/09/2017 8:39 AM EDT Narrative Resulting Agency Comment Spec In Lab Crystal Sood MD LAB SEND OUT ORDERAB LES [facility] [place] [address] * Tetanus Toxoid Antibody, IgG (01/08/2017 2:53 PM EDT) Tetanus Ab,IgG (OCTOBER) Positive [facility] Comment: REFERENCE VALUE Vaccinated: Positive (>= 0.01 IU/mL) Unvaccinated: Negative (< 0.01 IU/mL) Test Performed by: [facility] - [address] [address] Tetanus IgG Value (OCTOBER) 1.86 IU/mL [facility] Comment: ADDITIONAL INFORMATION This test was developed and its performance characteristics determined by [facility] in a manner consistent with CLIA requirements. This test has not been cleared or approved by the U.S. Food and Drug Administration. Test Performed by: [facility] - [address] [address] Blood specimen (specimen) 01/08/2017 2:53 PM EDT 01/09/2017 8:39 AM EDT Narrative Resulting Agency Comment Spec In Lab Crystal Sood MD LAB SEND OUT ORDERAB LES [facility] [place] [address] * S pneumoniae Antibody IgG, 23 serotypes (01/08/2017 2:53 PM EDT) S Pneumo IgG 23 (MAY) Test ?Result ? Flag ??Unit ?RefValue ------- S. pneumoniae IgG Ab,23 serotypes,S ??Serotype 1 (1) ?17.6 ? mcg/mL ??>=2.3 ??Serotype 2(2) ? 12.7 ? mcg/mL ??>=1.0 ??Serotype 3 (3) ?8.1 ?mcg/mL ??>=1.8 ??Serotype 4 (4) ?3.7 ?mcg/mL ??>=0.6 ??Serotype 5 (5) ?17.0 ? mcg/mL ??>=10.7 ??Serotype 8 (8) ?16.0 ? mcg/mL ??>=2.9 ??Serotype 9N (9) ? 16.2 ? mcg/mL ??>=9.2 ??Serotype 12F (12) ? 2.9 ?mcg/mL ??>=0.6 ??Serotype 14 (14) ?12.0 ? mcg/mL ??>=7.0 ??Serotype 17F (17) ? 29.2 ? mcg/mL ??>=7.8 ??Serotype 19F (19) ? 31.1 ? mcg/mL ??>=15.0 ??Serotype 20 (20) ?9.9 ?mcg/mL ??>=1.3 ??Serotype 22F (22) ? 96.7 ? mcg/mL ??>=7.2 ??Serotype 23F (23) ? 134.3 ?mcg/mL ??>=8.0 ??Serotype 6B (26) ?17.0 ? mcg/mL ??>=4.7 ??Serotype 10A (34) ? 42.2 ? mcg/mL ??>=2.9 ??Serotype 11A (43) ? 3.4 ?mcg/mL ??>=2.4 ??Serotype 7F (51) ?39.7 ? mcg/mL ??>=3.2 ??Serotype 15B (54) ? 26.7 ? mcg/mL ??>=3.3 ??Serotype 18C (56) ? 3.7 ?mcg/mL ??>=3.3 ??Serotype 19A (57) ? 21.7 ? mcg/mL ??>=17.1 ??Serotype 9V (68) ?34.7 ? mcg/mL ??>=2.6 ??Serotype 33F (70) ? 5.7 ?mcg/mL ??>=1.7 ?Either of the two following conditions would be consistent ?with a normal response to Streptococcus pneumoniae ?vaccination: Antibody concentrations greater than or equal ?to the reference value for at least 50% of serotypes in ?either a pre- or post-vaccination sample. Antibody ?concentrations increased by 2-fold or greater for at least ?50% of serotypes when comparing the pre- to the ?post-vaccination results. Optimal cut-offs (reference ?values) were derived by measuring serotype-specific IgG ?antibody levels in an adult cohort of 100 healthy ?individuals (previously unvaccinated) before and after ?pneumococcal vaccination and identifying the antibody level ?for each serotype that included the largest number of ?individuals with a negative response (below cut-off) ?pre-vaccination and a positive response (above cut-off) ?post-vaccination . ? ---ADDITIONAL INFORMATION------- ?All 23 serotypes assessed by this assay are included in the ?Pneumovax 23 vaccine. IgG antibody concentrations following ?Pneumovax 23 administration are a reflection of an ?individual's humoral immune response to polysaccharide ?antigens. Serotypes 1, 3, 4, 5, 6A (6), 14, 19F (19), 23F ?(23), 6B (26), 7F (51), 18C (56), 19A (57) and 9V (68) are ?included in the Prevnar-13 conjugate vaccine. Antibody ?concentrations following Prevnar-13 administration are a ?reflection of an individual's response to ?protein-conjugat ed antigens. Serotypes 2, 8, 9N (9), 12F ?(12), 17F (17), 20, 22F (22), 10A (34), 11A (43), 15B (54) ?and 33F (70) are present only in the Pneumovax 23 vaccine ?and not in Prevnar-13. Responses to these 11 serotypes are ?a reflection of an individual's response to polysaccharide ?antigens. Serotype 6A is only present in Prevnar-13. ?This test was developed and its performance characteristics ?determined by [facility] in a manner consistent with CLIA ?requirements. This test has not been cleared or approved by ?the U.S. Food and Drug Administration. ?Test Performed by: ?[facility] ?[address] [facility] Blood specimen (specimen) 01/08/2017 2:53 PM EDT 01/09/2017 8:39 AM EDT Narrative Resulting Agency Comment Spec In Lab Crystal Sood MD LAB SEND OUT ORDERAB LES [facility] [place] [address] * Peripheral Smear Review (01/08/2017 2:53 PM EDT) Peripheral Smear Review See Comment [facility] Comment: When completed by the Pathologist, report [id number] will display under Hematopathology Reports. Blood specimen (specimen) 01/08/2017 2:53 PM EDT 01/08/2017 2:56 PM EDT Narrative Resulting Agency Comment Spec In Lab Crystal Sood MD HEMATOLOGY ORDERABLE S [facility] [place] [address] * (ABNORMAL) Comprehensive metabolic panel (non-fasting) (01/08/2017 2:53 PM EDT) Glucose 146 65 - 199 mg/dL [facility] Comment:Diabetes: >=200 mg/d L plus symptoms Blood Urea Nitrogen 15 8 - 18 mg/dL [facility] Creatinine 0.67(L) 0.70 - 1.20 mg/dL [facility] Comment: Please note that the pediatric reference intervals supplied above were not validated at [facility]. Results from pediatric patients should be interpreted in conjunction to the patient's age, height and muscle mass. Sodium 135 135 - 145 mmol/L [facility] Potassium 3.8 3.5 - 5.0 mmol/L [facility] Comment: Please note: ??Patients with WBC >100,000 may have falsely elevated Potassium levels. ??For accurate Potassium quantification in these patients send serum separator tube (gold top) for subsequent determinations. ??Contact the Clinical Chemistry Laboratory if there are any questions. Chloride 98 98 - 107 mmol/L [facility] Carbon Dioxide 22 22 - 31 mmol/L [facility] Anion Gap 15 5 - 15 mmol/L [facility] Calcium 8.7 8.5 - 10.5 mg/dL [facility] Protein, Total 7.5 6.1 - 8.0 gm/dL [facility] Albumin 4.2 3.2 - 5.2 gm/dL [facility] Aspartate Aminotransferase 12 0 - 30 unit/L [facility] Alanine Aminotransferase 11 0 - 30 unit/L [facility] Alkaline Phosphatase 61 40 - 104 unit/L [facility] Bilirubin, Total <0.2(L) 0.2 - 1.3 mg/dL [facility] Est Glomerular Filtration Rate >60 >=60 [facility] Comment: This estimated GFR (eGFR) value was calculated using the MDRD equation which has been validated on patients between the ages of 18 and 70. The MDRD should not be used to assess kidney function in patients < 18 years of age or in patients with extremes of body mass, or in patients with acute kidney failure. This value should be multiplied by 1.2 for patients. For further information please copy and paste the following links into your internet browser. [email or web address]/DHnkdep [email or web address] Blood specimen (specimen) 01/08/2017 2:53 PM EDT 01/08/2017 2:56 PM EDT Narrative Resulting Agency Comment Spec In Lab Crystal Sood MD CHEMISTRY ORDERABLES Performing Organization Address [facility] Co de Phone Number [facility] [place] [address] * Immunoglobulins, Quantitative (01/08/2017 2:53 PM EDT) Immunoglobulin G 1,078 700 - 1,600 mg/dL [facility] IgA 247 70 - 400 mg/dL [facility] IgM 114 40 - 230 mg/dL [facility] [facility] Blood specimen (specimen) 01/08/2017 2:53 PM EDT 01/08/2017 2:56 PM EDT Narrative Resulting Agency Comment Spec In Lab Crystal Sood MD CHEMISTRY ORDERABLES Performing Organization Address [facility] Co de Phone Number [facility] [place] [address] * Smear Review Report (01/08/2017 2:45 PM EDT) Smear Review Report [id number] ?Location: 6M The signing pathologist has (i) examined the relevant preparation(s) for the specimen(s) and (ii) rendered or confirmed the diagnosis(es). . ? Smear Review DIAGNOSIS PERIPHERAL BLOOD, SMEAR: Slight absolute neutrophilia in an otherwise unremarkable peripheral smear (see discusion) Electronically signed by: ??Parish Weaver MD Verified: ??01/09/2017 ?Hematopathologi st DISCUSSION The mild absolute neutrophilia is nonspecific, and likely represents a reactive response. Clinical correlation is recommended. ADDITIONAL STUDIES WBC 10.49x10 3/uL, RBC 4.47x10 6/uL, HGB 13.4g/dL, HCT 39.9%, MCV 89.3fL, MCHC 33.6g/dL, RDW-CV 13.2%, PLT 236x10 ?? 3/uL The peripheral smear shows normochromic, normocytic erythrocytes without anemia. Anisopoikilocytos is and polychromasia are not increased. The platelet count and morphology are normal. The white cell count is minimally elevated with a very slight absolute neutrophilia (6.77x10 ??3/uL), and all remaining relative and absolute leukocyte counts are within reference limits. Leukocyte morphology is generally unremarkable, and no significant granulocytic left-shift is appreciated. CLINICAL INFORMATION Per EMR, the patient is a 46 year old lady for whom smear review is requested for evaluation of cytosis. The patient also has a history of presumptive obstructive sleep apnea, Ming thyroiditis, and psoriasis. [facility] 01/08/2017 2:45 PM EDT Crystal Sood MD HEMATOLOGY ORDERABLE S [facility] [place] [address] documented in this encounter Visit Diagnoses Diagnosis Recurrent pneumonia Pneumonia, organism unspecified Autoimmune disease Autoimmune disease, not elsewhere classified documented in this encounter Care Teams Driller Operator Relationship Specialty Start Date End Date Leonor Hendricks MD [address] [place] [address] PCP - General Family Medicine 11/27/16 documented as of this encounter
--- OUTSIDE RECORDS SUMMARY | 2024-02-04 01:26 | XMS_ITS | Encounter Summary ---
Author Organization [facility] Malia espinoza [place] [id number] Care Team Providers Care Cook House Laborer Name Role Phone Roosevelt Hendricks MD Primary Care Provider [phone] Reason for Referral * Consultation (Routine) - Closed Specialty Diagnoses / Procedures Referred By Contac t Referred To Contact Sleep Center Diagnoses Snoring Procedures PRG POLYSOM 6+ YRS SLEEP W 4+ ADDL CAMMY Marci Tripp MD [facility] [place] [address] [facility] [address] [place] [address] Referral ID Status Reason Start Date Expiration Date V isits Requested Visits Authorized [id number] Closed Test Only 04/23/2017 07/26/2017 1 1 Reason for Visit * Consultation (Routine) - Closed Specialty Diagnoses / Procedures Referred By Contac t Referred To Contact Sleep Center Diagnoses Snoring Daytime sleepiness Anxiety Lucrecia Vang APRN [facility] [address] [facility] [address] [place] [address] Referral ID Status Reason Start Date Expiration Date V isits Requested Visits Authorized [id number] Closed Test Only 2016 2017 1 1 Encounter Details Date Type Department Care Team (Late st Contact Info) Description 12/28/2016 3:00 PM EDT Procedure visit [facility] [address] [place] [address] Marci Cintron MD [facility] SLEEP [place] [address] Snoring Social History Tobacco Use Types Packs/Day Years [...] Progress Notes * Marci Cintron MD - 12/28/2016 3:00 PM EDT Images from the original note were not included. HOME SLEEP APNEA TEST RESULTS Home sleep testing performed with a 4 channel Apnea Link Plus Monitor, recording respiratory effort, airflow, oxygen saturation and heart rate. DOS: 12/30/16 Total recording time: 598 min PRITESH: 5 4% PRITESH:2 Apnea index: 1 Central apnea index: 1 Hypopnea with desaturation > or equal to 3% index: 5 Hypopnea with desaturation > or equal to 4% index: 1 Average SpO2: 94% Minimum SpO2: 83% Minimum heart rate: 58 bpm Maximum heart rate: 78 bpm Average heart rate: 67 bpm Assessment: Home sleep testing was non-diagnostic for obstructive sleep apnea. There were scattered hypopneas although difficult to score definitive events. Study results reviewed with Ms. Sprague by phone. She reports that she slept very poorly theat night. Discussed that she has high suspicion for MAGDALENE and will request an in-lab PSG for further diagnosis. Recommendations: In lab PSG [facility] Sleep Disorders Center HOME SLEEP APNEA TEST REPORT Patient Name: Jesika Sprague Study Date: 12/30/2016 Age & Sex: 46 y.o. Female Height: 5'3 Date of : 1970 Weight: 195 BMI: 34.5 Referring Prov.: ROOSEVELT HENDRICKS M.D. Scoring Tech: RUDY SULLIVAN RPSGT Sleep Fellow: Sleep Specialist: General Test Details Type III home sleep apnea testing was performed utilizing nasal pressure, single thoracoabdominal movement, heart rate, and oxygen saturation according to established AASM guidelines. Recording Start Time: Monitoring Start Time: Recording End Time: Monitoring End Time: : Total Recording Time (TRT): 598.0 minutes Monitoring Time (MT): 598.0 minutes Respiratory Details Respiratory Event Total Count Index (events/hr) Obstructive apnea 0 0.0 Mixed apnea 0 0.0 Central apnea 6 0.6 Sum of all apnea types 6 0.6 Hypopneas without associated desaturation 0 0.0 Hypopneas with desaturation ?3% (AASM) 48 4.8 Hypopneas with desaturation ?4% (CMS) 14 1.4 Respiratory Event Index (PRITESH): 5.4 *Includes the sum of all apneas and hypopneas (assoc. with desaturation of ?3%) per hour of monitoring. 4% Respiratory Event Index (4%AHI, previously referred to as ???AHI???): 2.0 *Includes the sum of all apneas and hypopneas (assoc. with desaturation of ?4%) per hour of monitoring. 4% AHI: 2.0 *Includes the sum of all apneas and hypopneas (assoc. with desaturation of ?4%) per hour of monitoring. Walter-Suresh Breathin.0% of total monitoring time Minimum SpO2: 83% Average SpO2 (during TRT): 94% SpO2 ? X%: Total Time ?90% 12.5 min ?89% 12.2 min ?88% 11.6 min SpO2 Ranges: Total Time 90%-99% 583.6 min 80%-90% 12.2 min 70%-80% 0.0 min 60%-70% 0.0 min 0%-60% 0.0 min Cardiac Details Minimum Heart Rate 58 bpm Maximum Heart Rate 78 bpm Average Heart Rate 67 bpm Graphs Time Scale Respiratory Event Graph SpO2 Trend documented in this encounter Plan of Treatment Scheduled Referrals Name Type Priority Associated Diagnoses Orde r Schedule Referral to Sleep Disorders Center Outpatient Referral Routine Snoring Ordered: 01/11/2017 documented as of this encounter Visit Diagnoses Diagnosis Snoring Other dyspnea and respiratory abnormality documented in this encounter Care Teams Cook House Laborer Relationship Specialty Start Date End Date Roosevelt Hendricks MD [address] [place] [address] PCP - General Family Medicine 11/27/16 documented as of this encounter
--- OUTSIDE RECORDS SUMMARY | 2024-02-04 01:26 | XMS_ITS | Encounter Summary ---
[place] [address] Care Team Providers Care Cafeteria Monitor Name Role Phone Tristan Soliman DO Primary Care Provider Encounter Details Date Type Department Care Team (Late st Contact Info) Description 10/15/2016 Telephone Dermatology at [place] [address] [facility] [place] [address] Andreas Richardson MD [address], [address] [place] [address] Social History Tobacco Use Types Packs/Day Years [...] encounter Miscellaneous Notes * Telephone Encounter - Ariana Combs LPN - 10/15/2016 10:37 AM EDT Voice mail from Jesika starkey [facility] requesting prescription for maintenance dose ofCosentyx. Call pharmacy at [phone] of fax [phone] documented in this encounter Plan of Treatment Not on file documented as of this encounter Visit Diagnoses Not on filedocumented in this encounter Care Teams Cafeteria Monitor Relationship Specialty Start Date End Date Tristan Soliman DO [address] [place] [address] PCP - General 05/09/10 11/26/16 documented as of this encounter
--- OUTSIDE RECORDS SUMMARY | 2024-02-04 01:26 | XMS_ITS | Encounter Summary ---
Author Organization [facility] [place] [address] Care Team Providers Care Chief Payroll Clerk Name Role Phone Jourdan, Tristan OLIVAREZ Primary Care Provider [phone] Encounter Details Date Type Department Care Team (Latest Contact Info) Description 10/19/2016 11:18 AM EDT - 10/19/2016 11:59 PM EDT Hospital [place] [address] Sleep concern Discharge Disposition: Home Social History Tobacco Use [...] Procedure Name Priority Date/Time Associated Diagnosis Comments CORTISOL, SALIVA Routine 10/20/2016 11:0 0 AM EDT Sleep concern CORTISOL, SALIVA Routine 10/19/2016 11:0 0 AM EDT Sleep concern documented in this encounter Results * Cortisol, saliva (10/20/2016 11:00 AM EDT) Jamari Saliva Midnight (OCTOBER) 75 <100 ng/dL [facility] Comment: ADDITIONAL INFORMATION This test was developed and its performance characteristics determined by [facility] in a manner consistent with CLIA requirements. This test has not been cleared or approved by the U.S. Food and Drug Administration. Test Performed by: [facility] - [address] [address] Specimen of unknown material (specimen) 10/20/2016 11:00 AM EDT 10/23/2016 12:05 PM EDT Yareli Morales MD LAB SEND OUT ORDERAB LES [facility] [place] [address] * Cortisol, saliva (10/19/2016 11:00 AM EDT) Jamari Saliva Midnight (OCTOBER) <50 <100 ng/dL [facility] Comment: ADDITIONAL INFORMATION This test was developed and its performance characteristics determined by [facility] in a manner consistent with CLIA requirements. This test has not been cleared or approved by the U.S. Food and Drug Administration. Test Performed by: [facility] - [address] [address] Specimen of unknown material (specimen) 10/19/2016 11:00 AM EDT 10/23/2016 12:05 PM EDT Yareli Morales MD LAB SEND OUT ORDERAB LES [facility] [place] [address] documented in this encounter Visit Diagnoses Diagnosis Sleep concern Problems related to lack of adequate sleep documented in this encounter Care Teams Chief Payroll Clerk Relationship Specialty Start Date End Date Tristan Soliman DO [address] [place] [address] PCP - General 05/09/10 11/26/16 documented as of this encounter
--- OUTSIDE RECORDS SUMMARY | 2024-02-04 01:26 | XMS_ITS | Encounter Summary ---
Author Organization [facility] [place] [address] Care Team Providers Care Ambulance Mechanic Name Role Phone Jourdan, Tristan OLIVAREZ Primary Care Provider Encounter Details Date Type Department Care Team (Late st Contact Info) Description 11/21/2016 External Results [place] [address] Yareli Morales MD [facility] [place] [address] Misha's thyroiditis Social History Tobacco Use Types [...] Procedure Name Priority Date/Time Associated Diagnosis Comments TSH Routine 11/19/2016 Misha's thyroiditis T4, FREE Routine 11/19/2016 Misha's thyroiditis documented in this encounter Results * (ABNORMAL) T4, free (11/19/2016) Free T4 0.79(Utility Bill Collector al Lab) Blood specimen (specimen) 11/19/2016 Yareli Morales MD CHEMISTRY ORDERABLES * (ABNORMAL) TSH (11/19/2016) Thyroid Stimulating Hormone 3.56(Exter nal Lab) Blood specimen (specimen) 11/19/2016 Yareli Morales MD CHEMISTRY ORDERABLES documented in this encounter Visit Diagnoses Diagnosis Misha's thyroiditis Chronic lymphocytic thyroiditis documented in this encounter Care Teams Ambulance Mechanic Relationship Specialty Start Date End Date Tristan Soliman DO [address] [place] [address] PCP - General 05/09/10 11/26/16 documented as of this encounter
--- OUTSIDE RECORDS SUMMARY | 2024-02-04 01:26 | XMS_ITS | Encounter Summary ---
Author Organization [facility] [place] [address] Care Team Providers Care Stock Lifter Name Role Phone Leonor Hendricks MD Primary Care Provider [phone] Encounter Details Date Type Department Care Team (Late st Contact Info) Description 02/07/2017 Telephone [place] [address] Beverly Morrow RN Social History Tobacco Use [...] Telephone Encounter - Beverly Morrow RN - 02/07/2017 11:56 AM EDT Jesika Sprague - 02/05/17 << Less Detail ?? Yareli Morales MD ?? Sent: SatFebruary 06, 2017 ??6:59 PM ?? To: Beverly Morrow RN ?? Message ?? Keon Paul may you let Jesika know that her thyroid levels from 01/25/17 were all within the normal range. ?? Thanks so much! ?? Yareli ?? [facility] message sent. documented in this encounter Plan of Treatment Not on file documented as of this encounter Visit Diagnoses Not on filedocumented in this encounter Care Teams Stock Lifter Relationship Specialty Start Date End Date Leonor Hendricks MD [address] [place] [address] PCP - General Family Medicine 11/27/16 documented as of this encounter
--- OUTSIDE RECORDS SUMMARY | 2024-02-04 01:26 | XMS_ITS | Encounter Summary ---
Author Organization [facility] [place] [address] Care Team Providers Care Prescription Eyeglass Maker Name Role Phone Tristan Soliman DO Primary Care Provider [phone] Encounter Details Date Type Department Care Team (Late st Contact Info) Description 09/19/2016 11:47 AM EDT - 09/19/2016 11:59 PM EDT Hospital Encounter XRay at [address] [place] [address] Jacinta Browne, [facility] [place] [address] Arthralgia of both hands Discharge Disposition: Home Social History Tobacco Use [...] Procedure Name Priority Date/Time Associated Diagnosis Comments XR HANDS MIN 3 VIEWS BILAT Routine 09/19/2016 12:16 PM EDT Arthralgia of both hands documented in this encounter Results * XR Hands Min [...] suggestive of ulnocarpal abutment. Jacinta Browne DO IM DX ORDERABLES documented in this encounter Visit Diagnoses Diagnosis Arthralgia of both hands documented in this encounter Care Teams Prescription Eyeglass Maker Relationship Specialty Start Date End Date Tristan Soliman DO [address] [place] [address] PCP - General 05/09/10 11/26/16 documented as of this encounter
--- OUTSIDE RECORDS SUMMARY | 2024-02-04 01:26 | XMS_ITS | Encounter Summary ---
[place] [address] Care Team Providers Care Internal Control Manager Name Role Phone Tristan Soliman DO Primary Care Provider Encounter Details Date Type Department Care Team (Latest Contact Info) Description 09/19/2016 11:00 AM EDT - 09/19/2016 11:46 AM EDT Hospital En[place] [address] Errol Crowley, [place] [address] [place], [place] [address] Abdominal pain, lower Discharge Disposition: Home Social History Tobacco Use [...] Name Priority Date/Time Associated Diagnosis Comments US ABDOMEN COMPLETE Routine 09/19/2016 1 1:35 AM EDT Abdominal pain, lower documented in this encounter Results * US Abdomen Complete (09/19/2016 11:35 AM EDT) Anatomical Region Laterality Modality Abdomen, Vascular Ultrasound 09/19/2016 11:3 6 AM EDT Impressions 09/19/2016 12:03 PM EDT ??Ultrasound Dictation: Small 0.6 cm hyperechoic lesion in the right hepatic lobe likely representing a small hemangioma. Otherwise normal abdominal ultrasound. I have personally reviewed the image(s) and the residents interpretation and agree with the findings, Noris Lauren at 09/19/2016 11:55 AM ?Noris Lauren MD Electronically Signed Final Report ?? 09/19/2016 12:02 pm Narrative 09/19/2016 12:03 PM EDT Abdominal ?(Signed Final 09/19/2016 12:02 pm) PATIENT INFO: ID #: ? [id number] ?: ??[birth year] (45 yrs) Name: ? RUSLAN CHAIREZ ? Visit Date: 09/19/2016 11:36 am PERFORMED BY: Performed By: ? Robbin Adrian RDMS Attending: ?Leonidas JHAVERI, Noris Hickman Associate: ?Dana JHAVERI, Kyler Garrett Referred By: ?ERROL CROWLEY ND Location: ? [place] SERVICE(S) PROVIDED: ??BD - Abdominal Complete Survey - [id number] ?[id number] INDICATIONS: ??ABDOMINAL PAIN, PLEASE EXAMINE ??LIVER, BLADDER AND KIDNEYS COMPARISON: No prior studies for comparison. ------ LIVER: ------ Right Lobe Length: ?? 16.6 ?? cm Echogenicity/Echotexture: ?? Normal Portal Veins: ?Hepatopetal Comment: ?Hyperechoic focus seen in the right lobe ? measuring 0.6 x 0.7 x 0.6 cm. GALLBLADDER: Cholelithiasis: ?No stones visualized Wall Thickness: ?Normal wall thickness Focal Tenderness: ?Negative sonographic Emery's sign BILIARY TRACT: Intrahepatic Ducts: ?? Normal Extrahepatic Ducts: ?? Normal Common Duct Size: ? 4.0 ? mm --------- PANCREAS: --------- Head: ? Normal Tail: ? Not visualized, obscured by overlying ? bowel Body: ? Normal ------- SPLEEN: ------- Size (cm) ?L: ??10.6 ?AP: ??3.7 ? TV: ??3.5 Vol (ml): ?71.9 Comment: ?Normal size and appearance RIGHT KIDNEY: Size (cm) ?L: ??12.4 Cortical Thickness: ?Normal Cortical Echogenicity: ?? Normal Hydronephrosis: ?No sonographic evidence LEFT KIDNEY: Size (cm) ?L: ??12.3 Cortical Thickness: ?Normal Cortical Echogenicity: ?? Normal Hydronephrosis: ?No sonographic evidence URINARY BLADDER: Pre-void (cm) ? L: ??1.6 ? AP: ??1.6 ? TV: ??3.9 Vol (ml): ?5.2 Comment: ?Not distended, limited views. ------ AORTA: ------ Measurements (cm): Proximal ? AP: ?? 2.1 Mid ?AP: ?? 1.8 Distal ? AP: ?? 1.9 Comment: ?Normal in caliber where visualized ---- IVC: ---- Normal in caliber where visualized FLUID COLLECTIONS: No ascites seen. Procedure Note Noris Lauren MD - 09/19/2016 Abdominal (Signed Final 09/19/2016 12:02 pm) PATIENT INFO: ID #: [id number] : [birth year] (45 yrs) Name: RUSLAN CHAIREZ Visit Date: 09/19/2016 11:36 am PERFORMED BY: Performed By: Robbin Adrian RDMS Attending: Noris Lauren MD Associate: Kyler Cortez MD Referred By: ERROL CROWLEY ND Location: [place] SERVICE(S) PROVIDED: [facility] - Abdominal Complete Survey - [id number] INDICATIONS: ABDOMINAL PAIN, PLEASE EXAMINE LIVER, BLADDER AND KIDNEYS COMPARISON: No prior studies for comparison. ------ LIVER: ------ Right Lobe Length: 16.6 cm Echogenicity/Echotexture: Normal Portal Veins: Hepatopetal Comment: Hyperechoic focus seen in the right lobe measuring 0.6 x 0.7 x 0.6 cm. GALLBLADDER: Cholelithiasis: No stones visualized Wall Thickness: Normal wall thickness Focal Tenderness: Negative sonographic Emery's sign BILIARY TRACT: Intrahepatic Ducts: Normal Extrahepatic Ducts: Normal Common Duct Size: 4.0 mm --------- PANCREAS: --------- Head: Normal Tail: Not visualized, obscured by overlying bowel Body: Normal ------- SPLEEN: ------- Size (cm) L: 10.6 AP: 3.7 TV: 3.5 Vol (ml): 71.9 Comment: Normal size and appearance RIGHT KIDNEY: Size (cm) L: 12.4 Cortical Thickness: Normal Cortical Echogenicity: Normal Hydronephrosis: No sonographic evidence LEFT KIDNEY: Size (cm) L: 12.3 Cortical Thickness: Normal Cortical Echogenicity: Normal Hydronephrosis: No sonographic evidence URINARY BLADDER: Pre-void (cm) L: 1.6 AP: 1.6 TV: 3.9 Vol (ml): 5.2 Comment: Not distended, limited views. ------ AORTA: ------ Measurements (cm): Proximal AP: 2.1 Mid AP: 1.8 Distal AP: 1.9 Comment: Normal in caliber where visualized ---- IVC: ---- Normal in caliber where visualized FLUID COLLECTIONS: No ascites seen. IMPRESSION Ultrasound Dictation: Small 0.6 cm hyperechoic lesion in the right hepatic lobe likely representing a small hemangioma. Otherwise normal abdominal ultrasound. I have personally reviewed the image(s) and the residents interpretation and agree with the findings, Noris Lauren at 09/19/2016 11:55 AM Noris Lauren MD Electronically Signed Final Report 09/19/2016 12:02 pm Errol Crowley ND IMG US GEN ORDERAB LES documented in this encounter Visit Diagnoses Diagnosis Abdominal pain, lower Abdominal pain, other specified site documented in this encounter Care Teams Internal Control Manager Relationship Specialty Start Date End Date Tristan Soliman DO [address] [place] [address] PCP - General 05/09/10 11/26/16 documented as of this encounter
--- OUTSIDE RECORDS SUMMARY | 2024-02-04 01:27 | XMS_ITS | Encounter Summary ---
[place] [address] Care Team Providers Care Pricing/Signage Team Member Name Role Phone JourdanTristan DO Primary Care Provider Reason for Visit * Reason Comments Psoriasis Encounter Details Date Type Department Care Team (Late st Contact Info) Description 03/13/2011 11:00 AM EDT Office Visit Dermatology [address] [place] [address] [address] [place], [place] [address] Andreas Richardson MD [address], [place] [address] Psoriasis (Primary Dx) Social History Tobacco Use Types Packs/Day Years Used Date Smoking Tobacco: Former Sex and Gender Information Value Date Recorded Sex Assigned at Not on file Gender Identity Not on file Sexual Orientation Not on file documented as of this encounter Progress Notes * Andreas Richardson MD - 03/13/2011 11:44 AM EDT Problem: Followup psoriasis on Enbrel. Jesika follows up and has been using the Enbrel now for three months. She has been doing dermatologic dosing. Unfortunately she has seen no improvement. Physical examination reveals a pleasant 30-year-old woman who indeed has small plaques of psoriasis still present at all of the same sites widely over the elbows, knees, arms, MCPs of her hands and scattered over her calves as well. She is quite frustrated. Assessment & Plan: Psoriasis not responding to Enbrel. a. Discontinue Enbrel. b. Instead begin a trial with Humira injecting 40mg x2 on day one, 40mg injected SC on day eight, and 40mg q. o. two weeks thereafter, #9 dispensed for a three-month supply. c. Patient given information on Humira and on Humira Co-Pay Assistance Program. She will contact them. She had a $30 co-pay for the Enbrel. d. RTC with Enbrel to initiate therapy once she receives it. Cc: Tristan Soliman DO documented in this encounter Plan of Treatment Not on file documented as of this encounter Visit Diagnoses Diagnosis Psoriasis- Primary Other psoriasis documented in this encounter Care Teams Pricing/Signage Team Member Relationship Specialty Start Date End Date Tristan Soliman DO [address] [place] [address] PCP - General 05/09/10 11/26/16 documented as of this encounter
--- OUTSIDE RECORDS SUMMARY | 2024-02-04 01:27 | XMS_ITS | Encounter Summary ---
[facility] Organization [facility] [place] [address] Care Team Providers Care Source Inspector Name Role Phone Tristan Soliman DO Primary Care Provider Encounter Details Date Type Department Care Team (Late st Contact Info) Description 12/22/2012 Telephone Dermatology at [facility] [address] [place] [address] Danielle Ortega MD [address] [facility] [place] [address] Social History Tobacco Use Types Packs/Day Years Used Date Smoking Tobacco: Former Sex and Gender Information Value Date Recorded Sex Assigned at Not on file Gender Identity Not on file Sexual Orientation Not on file documented as of this encounter Miscellaneous Notes * Telephone Encounter - Logan Powers - 12/22/2012 10:21 AM EDT Spoke with Ivon at [facility], they need to speak with patient for adherence purposes. I have left a message for Jesika to call them and advise me once she has done so. Per Ivon, if they hear from patient today we can order drug for delivery tomorrow. Logan Brantley documented in this encounter Plan of Treatment Not on file documented as of this encounter Visit Diagnoses Not on filedocumented in this encounter Care Teams Source Inspector Relationship Specialty Start Date End Date Tritsan Soliman DO [address] [place] [address] [address] [place] [address] PCP - General 05/09/10 11/26/16 documented as of this encounter
--- OUTSIDE RECORDS SUMMARY | 2024-02-04 01:27 | XMS_ITS | Encounter Summary ---
Author Organization [facility] [place] [place] [address] Care Team Providers Care Back Hanger Name Role Phone Jourdan, Tristan OLIVAREZ Primary Care Provider [phone] Reason for Visit * Reason Comments Psoriasis Encounter Details Date Type Department Care Team (Late st Contact Info) Description 02/22/2015 4:45 PM EDT Office Visit Dermatology at [place] [address] [place] [id number] Andreas Ricahrdson MD [address] [place] [address] Psoriasis Discharge Disposition: Home Social History Tobacco Use Types Packs/Day Years Used Date Smoking Tobacco: Former Sex and Gender Information Value Date Recorded Sex Assigned at Not on file Gender Identity Not on file Sexual Orientation Not on file documented as of this encounter Patient Instructions * Patient Instructions* Ivett Mcghee LPN - 02/22/2015 5:07 PM EDT Images from the original note were not included. [facility] Psoriasis: After Your Visit Your Care Instructions Psoriasis (say [id number]-[id number]-[id number]) is a long-term skin problem that causes thick, white, silvery, or red patches on the skin. The patches may be small or large, and they occur most often on the knees, elbows, scalp, hands, feet, or lower back. The skin may be scaly. If the condition is severe, your skin can become itchy and tender. Psoriasisalso can be embarrassing if the patches are on visible areas. You can treat psoriasis with good care at home and with medicine from your doctor. You may put medicine on your skin and take pills or have shots to stop the redness and swelling. Your doctor also may suggest ultraviolet light treatments. Follow-up care is a hernandez part of your treatment and safety. Be sure to make and go to all appointments, and call your doctor if you are having problems. It???s also a good idea to know your test results and keep a list of the medicines you take. How can you care for yourself at home? ?? If your doctor prescribes medicine, use it exactly as prescribed. Call your doctor if you think you are having a problem with your medicine. ?? Keep your skin moist. After bathing, put an ointment, cream, or lotion on your skin while it is still damp. This seals in moisture. Use zuov-try-xrwrpjp products that your doctor suggests. These may include Cetaphil, Lubriderm, or Eucerin. Petroleum jelly (such as Vaseline) and vegetable shortening (such as Crisco) also work. ?? If you have psoriasis on your scalp, use a mild tar shampoo, such as Neutrogena T/Gel, Polytar, or Zetar. Other scalp lotions, such as Dritho-Scalp, can be applied for several hours and then washed out. Shampoos that contain zinc pyrithione (such as Danex or Head & Shoulders), or selenium sulfide (such as Exsel or Selsun) may also help. ?? Gently soften and remove skin crusts. Put cream on the crusts and then peel off loose crusts. Removing crusts may help creams and lotions get into the skin. However, peel off crusts carefully so that you do not irritate your skin. ?? Follow your doctor's advice for sunlight or ultraviolet light treatment. ?? Avoid harsh skin products, such as those that contain alcohol. ?? Cover your skin in cold weather. ?? Try to prevent sunburn. Although short periods of sun exposure reduce psoriasis in most people, too much sun can damage the skin and cause skin cancer. In addition, sunburns can trigger psoriasis.Use sunscreen on areas of your skin that do not have psoriasis. Make sure the sunscreen blocks ultraviolet rays (both UVA and UVB) and has a sun protection factor (SPF) of at least 15. Use it every day, even when it is cloudy. Some doctors may recommend a higher SPF, such as 30. ?? Take care to avoid accidents such as cutting or scraping your skin. An injury to the skin can cause psoriasis patches to form anywhere on the body, including the area of the injury. ?? Avoid tight shoes, clothing, watchbands, and hats. These may irritate your skin. ?? Try to control stress and anxiety. They may cause psoriasis to appear suddenly or can make symptoms worse. ?? Use a vaporizer or humidifier to add moisture to your bedroom. Follow the directions for cleaning the machine. ?? Seek support from family and friends. Talk to a counselor or other professional if you feel sad about your condition and need more help. When should you call for help? Call your doctor now or seek immediate medical care if: ?? You have signs of infection, such as: ?? Increased pain, swelling, warmth, or redness. ?? Red streaks leading from the area. ?? Pus draining from the area. ?? A fever. Watch closely for changes in your health, and be sure to contact your doctor if: ?? Your skin is more red and irritated than usual, especially if you also have another illness. ?? You need to talk to someone about how you are coping with the illness. Where can you learn more? Visit our health information library at [email or web address] You can also view health information on [employer], your personal patient account. Log in or sign up today. Enter U759 in the search box to learn more about Psoriasis: After Your Visit. ?? [phone] [employer]. Care instructions adapted under license by [facility]. This care instruction is for use with your licensed healthcare professional. If you have questions about a medical condition or this instruction, always ask your healthcare professional. [employer] disclaims any warranty or liability for your use of this information. Content Version: 10.4.059811; Current as of: August 26, 2013 documented in this encounter Progress Notes * Andreas Richardson MD - 02/22/2015 5:31 PM EDT Problems: 1. Followup psoriasis. 2. Status post course of Stelara, May 2012 through February 2013. Discontinued because of patient concerns regarding immunosuppression; the patient had good clinical results but several colds in a row. 3. Status post course of Humira, March 2011 through May 2012. 4. Status post trial of Enbrel, November through February 2001. 5. Previously on topicals with Kenalog injections. 6. Patient unable to tolerate cyclosporin and methotrexate; no benefit from a trial of hydroxyurea. 7. Failed trial of sulfasalazine, September through November 2014. Jesika follows up and unfortunately Otezla has not proved beneficial for her. In fact, her psoriasis has gotten much worse. She has it now in areas where she never had it before, on the dorsum of her feet. Every area except for her torso is affected. She is not so much worried about the appearance of it, but it is starting to hurt on her hands. Physical examination reveals plaque psoriasis on the elbows, knees, dorsal hands. Small papules over the arms and forearms and on the dorsum of her feet. She has involvement on her scalp. Assessment and Plan: Psoriasis, worsening despite trial of Otezla begun November 2014. a. I recommended that we go back to Stelara. We discussed the benefits of this and the relatively low risks. b. The patient wonders whether she can stop it once things improve, and we discussed the wisdom of starting and stopping biologics. I prefer that she not. c. Continue taking Otezla until Stelara is available. The patient weighs 225 pounds; thus, she would be starting on a 90-mg dose of Stelara injected at home using the prefilled syringe on day zero, day 30, and then once every three months. d. The patient wonders about the option of Cosentyx, but I do not believe this is yet on the formulary for [facility]. e. The patient has been online with a Facebook chat page with other psoriasis patients and is thankful that her psoriasis, at least, is not as pruritic and symptomatic as others are experiencing. f. Initiate Stelara, and then follow up at the clinic in three months. COPY: Trsitan Soliman D.O. documented in this encounter Plan of Treatment Not on file documented as of this encounter Visit Diagnoses Diagnosis Psoriasis Other psoriasis documented in this encounter Care Teams Back Hanger Relationship Specialty Start Date End Date Tristan Soliman DO [address] [place] [address] PCP - General 05/09/10 11/26/16 documented as of this encounter
--- OUTSIDE RECORDS SUMMARY | 2024-02-04 01:27 | XMS_ITS | Encounter Summary ---
[place] [address] Care Team Providers Care Superintendent Production Name Role Phone JourdanTristan DO Primary Care Provider Reason for Visit * Reason Comments Psoriasis Encounter Details Date Type Department Care Team (Late st Contact Info) Description 04/03/2011 4:45 PM EDT Office Visit Dermatology [address] [place] [address] [address] [place], [place] [id number] Andraes Richardson MD [address] [place] [address] Psoriasis (Primary Dx) Social History Tobacco Use Types Packs/Day Years Used Date Smoking Tobacco: Former Sex and Gender Information Value Date Recorded Sex Assigned at Not on file Gender Identity Not on file Sexual Orientation Not on file documented as of this encounter Progress Notes * Andreas Richardson MD - 04/03/2011 5:35 PM EDT Problems: 1. Followup psoriasis ready to begin Humira. 2. Status post Enbrel trial 11/2000-02/2001 without benefit. 3. Previously on topicals and Kenalog injection. 4. Patient unable to tolerate Cyclosporine and Methotrexate in the past. Jesika follows up for initiation of Humira. Physical examination continues to show small plaques of psoriasis widely over the elbows, knees, arms, hands and calves. Assessment & Plan: Psoriasis. a. Begin trial of Humira. Today two 40mg autoinjector pens were injected one to the left and one to the right anterior thigh, and the patient will inject one in one week and one q. o. two weeks thereafter. b. Discussed the appropriate technique for Humira injection. Informational handout given which is a pictorial description on how to inject the Humira. c. RTC in three months for repeat check. Cc: Tristan Soliman DO documented in this encounter Plan of Treatment Not on file documented as of this encounter Visit Diagnoses Diagnosis Psoriasis- Primary Other psoriasis documented in this encounter Care Teams Superintendent Production Relationship Specialty Start Date End Date Tristan Soliman DO [address] [place] [address] PCP - General 05/09/10 11/26/16 documented as of this encounter
--- OUTSIDE RECORDS SUMMARY | 2024-02-04 01:27 | XMS_ITS | Encounter Summary ---
Author Organization [facility] [place] [address] Care Team Providers Care Correctional Officer Name Role Phone JourdanTristan batres Primary Care Provider Reason for Visit * Reason Comments Psoriasis Encounter Details Date Type Department Care Team (Late st Contact Info) Description 02/21/2012 9:40 AM EDT Follow-Up Dermatology [place] [id number] Tammi Carey MD [facility] [address] CLAUDINE [place] [address] High risk medication use (Primary Dx); Psoriasis Discharge Disposition: Home Social History Tobacco Use Types Packs/Day Years Used Date Smoking Tobacco: Former Sex and Gender Information Value Date Recorded Sex Assigned at Not on file Gender Identity Not on file Sexual Orientation Not on file documented as of this encounter Progress Notes * Domenica Webb - 03/12/2012 9:14 AM EDT AUTHORIZATION APPROVED * Tonja Kim LPN - 03/06/2012 9:23 AM EDTQuoscar Note: Order for CBP, CMP mail to patient today . fax number for results to be sent to Dr. Carey added * Domenica Webb - 02/29/2012 1:00 PM EDT Faxed prior authorization 02/28/12 * Domenica Webb - 02/28/2012 9:58 AM EDT Faxed prior authorization * Tonja Kim LPN - 02/26/2012 9:32 AM EDT Lab slip mailed to patient in today's mail with results to be faxed to us and a copy sent to her PCP. * Amy Connor MD - 02/21/2012 10:10 PM EDT Provider AMY CONNOR MD I saw and evaluated the patient. I have reviewed the patient's history during the visit and I agreewith details as written. My physical examination confirms Dr. Carey's findings. The assessment and plan were formulated in discussion with me at the time of visit and I agree with them as documented. AMY CONNOR MD, M.D. Section of Dermatology * Tammi Carey MD - 02/21/2012 9:51 AM EDT DERMATOLOGY - ESTABLISHED PATIENT FOLLOW-UP Date of service: 02/21/2012 Jesika Sprague : 1970 Dermatology Resident Note: Tammi Carey MD Chief Problem: Psoriasis Chief Complaint Patient presents with ??? Psoriasis Ms. Jesika Sprague is a 41 y.o. female. This is an established patient to practice, new to me. Last seen by Dr. Richardson on July 2011. HPI: Ms. Sprague presents for follow-up of psoriasis. Pt states she is worse than last visit. Pt was previously on a 3 month trial period of Enbrel without benefits, then was switched to Humira. Pt states she was on Humira for approximately 8 months without any results. Patient states she spoke with Dr. Richardson's nurse and was instructed to discontinue use and to re-initiate Betamethasone topically. She has been worse this summer, mentions the sun makes her worse. She does have some arthritis in her hands. Questioned regarding possible other photosensitive dx such as lupus or dermato, no pertinent positives. Skin History: Psoriasis Previously on Enbrel and Humira, Betamethasone topically Medical History: Patient Active Problem List Diagnoses Code ??? Psoriasis 696.1U Medications: Current outpatient prescriptions ordered prior to encounter Medication Sig Dispense Refill ??? SIMVASTATIN ORAL Take by mouth. ??? Etanercept (ENBREL SURECLICK) 50 mg/mL (0.98 mL) PnIj Inject 50 mg subcutaneously twice a week. ??? methoxsalen (OXSORALEN) 10 mg Cap Take 10 mg by mouth three times a week. 1/2 hour prior to light treatment ??? Calcipotriene (DOVONEX) 0.005 % Crea 1 Appl(s), Top, PRN ??? betamethasone dipropionate (DIPROLENE) 0.05 % cream 1 Appl(s), Top, as directed ??? fluocinolone (DERMA-SMOOTHE) 0.01 % external oil 1 Appl(s), Top, as directed ??? triamcinolone (KENALOG) 0.1 % cream 1 Appl(s), Top, Twice daily ??? sertraline (ZOLOFT) 50 mg tablet .5 tab x 7 days then whole tab daily, PO, Once daily ??? atorvastatin (LIPITOR) 80 mg tablet 80MG = 1 Tablet(s), PO, Once daily ??? clobetasol (TEMOVATE) 0.05 % ointment 1 Appl(s), Top, Twice daily Allergies: No Known Allergies Review of Systems: - General: Feels well. - Skin: As per HPI; no other skin concerns. Examination: - Constitutional: Patient was alert, well-appearing and in no noticeable distress. - Skin: An abbreviated skin exam was performed; this includes: hands, arms, and legs Specific skin findings: 1. Well demarcated scaly erythematous plaques on hands, elbows, legs, ankles and feet. Diagnosis/Assessment/Treatment Plan: 1. Plaque Psoriasis -currently not responding to therapy, failed enbrel, humira, also was unable to tolerate cyA and MTX. Discussed other treatment options: Stelara therapy, benefits and side effects. -Pt agreed to proceed with Stelara therapy. -Labs today: CBC CMP AND QUANTIFERION GOLD -Dovonex topically twice daily on the weekend -will initiate Prior authorization for Stelara Therapy. She will call w/ concerns. Follow-up: RTC when stelara available for first injection. Instructed to call for questions or concerns. Tammi Carey MD Resident in Dermatology [facility] Patient seen and evaluated with staff jewel inserter: Amy Connor MD Section of Dermatology [facility] documented in this encounter Plan of Treatment Not on file documented as of this encounter Procedures Procedure Name Priority Date/Time Associated Diagnosis Comments QUANTIFERON-TB GOLD Routine 02/21/2012 1 0:15 AM EDT High risk medication use DIFFERENTIAL, AUTOMATED Routine 02/21/2012 10:14 AM EDT CBC (WITH DIFF) Routine 02/21/2012 10:14 AM EDT High risk medication use COMPREHENSIVE METABOLIC PANEL Routine 02/21/2012 10:14 AM EDT High risk medication use documented in this encounter Results * QuantiFERON-TB Gold (02/21/2012 10:15 AM EDT) [facility] Quantiferon-TB Gold Negative Negative [facility] Comment: Nil (IU/mL)= 0.14 TB Ag minus Nil (IU/mL)= 0.02 Mitogen minus Nil (IU/mL)= >10 M. tuberculosis (TB) infection NOT likely ?A negative specimen should have a TB Ag minus Nil value less than 0.35 IU/mL OR a TB Ag minus Nil greater than or equal to 0.35 IU/mL and in addition the TB Ag minus Nil value must be less than 25% of the Nil value. A negative specimen should have a Mitogen minus Nil value greater than or equal to 0.5 IU/mL. ?A negative QuantiFERON-TB Gold IT result does not preclude the possibility of M. tuberculosis infection or tuberculosis disease: false negative results can be due to stage of infection (e.g., specimen obtained prior to the development of cellular immune response), co-morbid conditions which affect immune function, or other individual immunological factors. ?The performance of the QuantiFERON-TB Gold IT test has not been extensively evaluated with specimens from the following groups of individuals: ?1. Individuals who have impaired or altered immune function such as those who have HIV infection or AIDS, those who have transplantation managed with immunosuppressive treatment or others who receive immunosuppressive drugs (e.g., corticosteroids, methotrexate, azathioprine, cancer chemotherapy), and those who have other clinical conditions: diabetes, silicosis, chronic renal failure, hematological disorders (e.g., leukemia and lymphomas), and other specific malignancies (e.g., carcinoma of the head or neck and lung). ?2. Individuals younger than age 17 years. ?3. women. Note: Diagnosing or excluding tuberculosis disease, and assessing the probability of LTBI, require a combination of epidemiological, historical, medical, and diagnostic findings that should be taken into account when interpreting QuantiFERON-TB Gold results. Reference (http://www.cdc.gov/nchstp/tb/) Blood specimen (specimen) 02/21/2012 10:15 AM EDT 02/22/2012 9:34 AM EDT Narrative Resulting Agency Comment Spec In Lab Amy Connor MD CHEMISTRY ORDER AKBAR [facility] * (ABNORMAL) DIFFERENTIAL, AUTOMATED (02/21/2012 10:14 AM EDT) Neutrophil % 64.6 34.0 - 71.0 % [facility] MILLENNI[facility] Neutrophil Absolute 7.36(H) 1.50 - 6.30 x10(3)/mc L [facility] Lymph % 28.2 19.0 - 53.0 % [facility] MILLENNI[facility] Lymphocytes Abs 3.2 1.0 - 3.6 x10(3)/mc L [facility] MILLENNIUM Monocyte % 5.4 4.0 - 13.0 % CERNER MILLENNIUM Monocyte Abs 0.6 0.2 - 1.0 x10(3)/mc L [facility]ERN[facility] MILLENNIUM Eos % 1.0 0.0 - 7.0 % CERNER MILLENNIUM Eosinophils Abs 0.1 0.0 - 0.5 x10(3)/mc L [facility]ILLENNI[facility] Basophil % 0.4 0.0 - 2.0 % CERNER MILLENNIUM Baso Absolute 0.0 0.0 - 0.2 x10(3)/mc L [facility]ILLEN[facility] Immature Gran % 0.40 0.00 - 0.66 % [facility] Comment: Immature granulocytes(IG's)percentage and absolute count will include metamyelocytes, myelocytes, and promyelocytes. Blood smears from CBCs yielding IG's will be scanned manually for concordance. If this scan disagrees with the automated IG or if promyelocytes are noted, a manual differential will be performed. Immature Gran Absolute 0.05 0.00 - 0.05 x10(3)/mc L [facility] MILLENNI[facility] Blood specimen (specimen) 02/21/2012 10:14 AM EDT 02/21/2012 10:37 AM EDT Amy Connor MD HEMATOLOGY ORDE RABBONNIE [facility] NETOEN[facility] * (ABNORMAL) Comprehensive metabolic panel (non-fasting) (02/21/2012 10:14 AM EDT) [facility] Glucose 90 60 - 199 mg/dL [facility] Comment:Diabetes: >=200 mg/d L plus symptoms Blood Urea Nitrogen 14 8 - 18 mg/dL [facility] MILLENNI[facility] Creatinine 0.73 0.70 - 1.20 mg/dL [facility]ILL[facility] Comment: Please note that the pediatric reference intervals supplied above were not validated at [facility]. Results from pediatric patients should be interpreted in conjunction to the patient's age, height and muscle mass. Sodium 138 135 - 145 mmol/L [facility]ERN[facility] MILLENNI[facility] Potassium 4.4 3.5 - 5.0 mmol/L [facility]ILLEN[facility] Comment: Please note: ??Patients with WBC >100,000 may have falsely elevated Potassium levels. ??For accurate Potassium quantification in these patients send serum separator tube (gold top) for subsequent determinations. ??Contact the Clinical Chemistry Laboratory if there are any questions. Chloride 101 98 - 107 mmol/L CERNER MILLENNIUM Carbon Dioxide 24 22 - 31 mmol/L CERNER MILLENNIUM Anion Gap 13 5 - 15 mmol/L [facility]ERN[facility] MILLENNIUM Calcium 9.5 8.5 - 10.5 mg/dL [facility] MILLENNIUM Protein, Total 8.1 6.4 - 8.3 gm/dL [facility] MILLENNIUM Albumin 4.5 3.2 - 5.2 gm/dL [facility]ERNER MILLENNIUM Aspartate Aminotransferase 21 0 - 30 unit/L CERNER MILLENNIUM Alanine Aminotransferase 29 0 - 30 unit/L CERNER MILLENNIUM Alkaline Phosphatase 118(H) 40 - 104 unit/L CERNER MILLENNIUM Bilirubin, Total 0.2 0.2 - 1.3 mg/dL CERNER MILLENNIUM Bilirubin, Direct 0.1 0.0 - 0.3 mg/dL CERNER MILLENNIUM Est Glomerular Filtration Rate >60 >=60 [facility]ERNER MILLENNI[facility] Comment: The National Kidney Disease Education Program (NKDEP) has recommended all laboratories report estimated GFR (eGFR) along with plasma creatinine measurements to assist you with recognition of early kidney disease. Caveats: ??Plasma creatinine should be at steady-state (unchanged within the past week). For patients multiply eGFR by 1.2. The MDRD equation was developed using patients between the ages of 18 and 70 years. ?? The MDRD equation has not been validated for patients < 18 years of age and should not be used to assess renal function in the pediatric population. ??The MDRD eGFR equation will also overestimate the true GFR of patients above the age of 70. ??This overestimation is variable but increases with age. At present, NKDEP does NOT recommend using the MDRD equation for drug dosing purposes and pharmacists should continue to use their current dosing methods. In addition, numerical eGFR values greater than 60 ml/min/1.73 square meters should be treated as > 60, and not an exact number due to greater inaccuracies at these higher values. Per NKDEP, they classify normal renal function as any GFR >60ml/min/1.73 square meters; chronic kidney disease when GFR <60, and renal failure when GFR <15. ??This calculation may not be valid for patients with atypical muscle mass (very lean or obese), acute renal failure, and in patients with diabetic kidney disease. References: http://nkdep.nih.gov/resources/NKDEP_Suggestn4Labs_0606_508.pdf http://www.kidney.org/professionals/kls/pdf/faq_gfr.pdf Joycelyn K, Adamaris NA, Bianca AK, Slava TS, Jonny AD, Kelly HALEY. Relative performance of the MDRD and CKD-EPI equations for estimating glomerular filtration rate among patients with varied clinical presentations. Clin J Am Soc Nephrol;6:1963-72. Blood specimen (specimen) 02/21/2012 10:14 AM EDT 02/21/2012 10:37 AM EDT Narrative Resulting Agency Comment Spec In Lab Amy Connor MD CHEMISTRY ORDER [facility] [employer] * (ABNORMAL) CBC (with Diff) (02/21/2012 10:14 AM EDT) White Blood Cell 11.4(H) 4.0 - 10.0 x10(3)/mc L CERNER MILLENNIUM Red Blood Cell 5.05 3.93 - 5.22 x10(6)/mc L CERNER MILLENNIUM Hemoglobin 15.6 11.2 - 15.7 gm/dL CERNER MILLENNIUM Hematocrit 45.4(H) 34.0 - 45.0 % CERNER MILLENNIUM Mean Cell Volume 89.9 79.0 - 94.0 fL CERNER MILLENNIUM Mean Cell Hemoglobin 30.9 26.6 - 32.2 pg CERNER MILLENNIUM Mean Cell Hemoglobin Concentration 34.4 32.0 - 36.5 gm/dL CERNER MILLENNIUM Platelet 210 145 - 370 x10(3)/mc L CERNER MILLENNIUM RDW Standard Deviation 43.9 35.0 - 46.0 fL CERNER MILLENNIUM RDW coefficient of variation 13.3 10.9 - 14.4 % CERNER MILLENNIUM Mean Platelet Volume 11.9 9.0 - 12.0 fL CERNER MILLENNIUM Blood specimen (specimen) 02/21/2012 10:14 AM EDT 02/21/2012 10:37 AM EDT Narrative Resulting Agency Comment Spec In Lab Amy Connor MD HEMATOLOGY ISAAC KIM TELLY SHERMAN documented in this encounter Visit Diagnoses Diagnosis High risk medication use- Primary Encounter for long-term (current) use of other medications Psoriasis Other psoriasis documented in this encounter Care Teams Correctional Officer Relationship Specialty Start Date End Date Tristan Soliman DO [address] [place] [address] PCP - General 05/09/10 11/26/16 documented as of this encounter
--- OUTSIDE RECORDS SUMMARY | 2024-02-04 01:27 | XMS_ITS | Encounter Summary ---
[facility] [place] [address] Care Team Providers Care Tax Commissioner Name Role Phone Tristan Soliman DO Primary Care Provider [phone] Encounter Details Date Type Department Care Team (Late st Contact Info) Description 01/08/2013 Telephone Dermatology at [facility] [address] [place] [address] Heide Mchugh Social History Tobacco Use Types Packs/Day Years Used Date Smoking Tobacco: Former Sex and Gender Information Value Date Recorded Sex Assigned at Not on file Gender Identity Not on file Sexual Orientation Not on file documented as of this encounter Miscellaneous Notes * Telephone Encounter - Heide Mchugh - 01/26/2013 1:40 PM EDT The patient called today regarding her appointment scheduled tomorrow. I informed her since the insurance company was unable to reach her to confirm information, they did not send the medication to us. She did contact the insurance company at this time and they are processing the delivery. I will call the patient to schedule an appointment once we have received the medication; the patient agreed with this plan. Heide Agree with plan as outlined by Heide Mchugh. * Telephone Encounter - Heide Mchugh - 01/22/2013 3:43 PM EDT I spoke with femi again today; they have not heard from the patient. They have until 4 pm today to get the medication to [employer] to have it delivered prior to her appointment on Jan 27. If they are unable to reach the patient today, I will cancel the patient's 01/27 appointment and let her know. Heide * Telephone Encounter - Heide Mchugh - 01/21/2013 12:18 PM EDT We received fax correspondence from [facility] advising they have been attempting to contact the patient regarding her stelara. They need to speak with her prior to sending us the RX. I left a message for the pt to call me back so she can contact [facility]. She can reach them at [phone]. Patient has an appointment for her injection on 01/[address] Mcmanus. Heide * Telephone Encounter - Heide Mchugh - 01/13/2013 10:[address] Mcmanus, I have contacted the patient; she has been scheduled for 01/27/13 at 1:00 pm (double booked) for herstelara injection. Thanks Heide * Telephone Encounter - Heide Mchugh - 01/09/2013 2:20 PM EDT Prior authorization stelara has been approved. The approval form has been faxed to medical records for scanning. Heide * Telephone Encounter - Heide Mchugh - 01/08/2013 4:03 PM EDT I have faxed the prior authorization request form to Ana at [facility] (fax nbr [phone]). Dr. Mcmanus has approved the RX. Heide * Telephone Encounter - Heide Mchugh - 01/08/2013 2:27 PM EDT This is a previous Dr. Carey pt - [facility] Heide documented in this encounter Plan of Treatment Not on file documented as of this encounter Visit Diagnoses Not on filedocumented in this encounter Care Teams Tax Commissioner Relationship Specialty Start Date End Date Tristan Soliman DO [address] [place] [address] PCP - General 05/09/10 11/26/16 documented as of this encounter
--- OUTSIDE RECORDS SUMMARY | 2024-02-04 01:27 | XMS_ITS | Encounter Summary ---
[facility] [place] [address] Care Team Providers Care Mental Health Associate Name Role Phone Jourdan, Tristan OLIVAREZ Primary Care Provider Reason for Visit * Reason Comments Psoriasis Encounter Details Date Type Department Care Team (Late st Contact Info) Description 10/01/2014 11:30 AM EDT Office Visit Dermatology at [place] [address] [place] [address] Andreas Richardson MD [address] [place] [address] Psoriasis Discharge Disposition: Home Social History Tobacco Use Types Packs/Day Years Used Date Smoking Tobacco: Former Sex and Gender Information Value Date Recorded Sex Assigned at Not on file Gender Identity Not on file Sexual Orientation Not on file documented as of this encounter Patient Instructions * Patient Instructions* Ivett Mcghee LPN - 10/01/2014 11:42 AM EDT Images from the original note were not included. [facility] Psoriasis: After Your Visit Your Care Instructions Psoriasis (say bxo-UC-uw-jefferson) is a long-term skin problem that causes [...] still damp. This seals in moisture. Use ooax-bmc-nyeqxgy products that your doctor suggests. These may [...] more? Visit our health information library at [email or web address] You can also view health information on [employer], your personal patient account. Log in or sign up today. Enter [id number] in the search box to learn more about Psoriasis: After Your Visit. ?? [id number] [employer]. Care instructions adapted under license by [facility]. This care instruction is for use with your licensed healthcare professional. If you have questions about a medical condition or this instruction, always ask your healthcare professional. [employer] disclaims any warranty or liability for your use of this information. Content Version: 10.3.898892; Current as of: August 26, 2013 documented in this encounter Progress Notes * Andreas Richardson MD - 10/01/2014 11:54 AM EDT Problems: 1. Followup psoriasis. 2. Status post a course of Stelara, May 2012 through February 2013; discontinued because of immunosuppressive concerns. 3. Status post course of Humira, March 2011 through May 2012. 4. Status post trial of Enbrel, November through February 2001. 5. Previously on topical and Kenalog injections. 6. Patient unable to tolerate cyclosporin and methotrexate, and no benefit from a trial of hydroxyurea. Jesika follows up and her psoriasis has been slowly worsening over the last two years that she has been off Stelara. She has tried numerous topicals. She is on Facebook and chats with other psoriasis patients and has tried naturopathic and homeopathic products without much benefit. She would like to try to avoid biologics. She is concerned about their possible side effects, particularly immune suppressant side effects. She states that she had a seven-week long cold in 2012 and was advised by Dr. Soliman to discontinue the Stelara. Most recently the patient was using Dovonex cream without benefit. Physical examination reveals a pleasant, 43-year-old woman who has plaques of psoriasis over the dorsal MCPs of both hands, extending onto the dorsal fingers. She has enlarging plaques on both elbows and both knees. She has small papules and patches beginning also on her shins and thighs. She has really minimal involvement on the abdomen and back, but a little bit of scaling developing in her scalp. Assessment and Plan: Psoriasis, slowly worsening despite current topical therapies. a. We discussed the option of sulfasalazine, which the patient has not yet tried. Another option would be Otezla (apremilast), versus resuming Stelara for a short time and watching for side effects; we could use this to clear her and then discontinue. Her prior dosing of Stelara was a 45-mg dose. b. Begin sulfasalazine 500 mg one p.o. b.i.d. for a week; dispensed #14 with zero refills. Second prescription given for #180 of the 500-mg sulfasalazine tablets, and then begin taking one p.o. t.i.d. for a week, and then two p.o. t.i.d. for a week, and return to clinic in four to six weeks for repeat check. We did discuss the potential for GI side effects. Discontinue if these occur, and give my office a call. c. The patient again reminds me that she tends to blister and burn easily with any sun exposure. Phototherapy would not be a good option for Jesika. COPY: Tristan Soliman D.O. documented in this encounter Plan of Treatment Not on file documented as of this encounter Visit Diagnoses Diagnosis Psoriasis Other psoriasis documented in this encounter Care Teams Mental Health Associate Relationship Specialty Start Date End Date Tristan Soliman DO [address] [place] [address] PCP - General 05/09/10 11/26/16 documented as of this encounter
--- OUTSIDE RECORDS SUMMARY | 2024-02-04 01:27 | XMS_ITS | Encounter Summary ---
Author Organization [facility] [place] [address] Care Team Providers Care Commercial Credit Portfolio Manager Name Role Phone Tristan Soliman DO Primary Care Provider [phone] Encounter Details Date Type Department Care Team (Late st Contact Info) Description 03/05/2012 Orders [place] [address] Tammi Carey MD [facility] [address] [place] [address] Social History Tobacco Use Types Packs/Day Years Used Date Smoking Tobacco: Former Sex and Gender Information Value Date Recorded Sex Assigned at Not on file Gender Identity Not on file Sexual Orientation Not on file documented as of this encounter Plan of Treatment Not on file documented as of this encounter Visit Diagnoses Not on filedocumented in this encounter Care Teams Commercial Credit Portfolio Manager Relationship Specialty Start Date End Date Tristan Soliman DO [address] [place] [address] PCP - General 05/09/10 11/26/16 documented as of this encounter
--- OUTSIDE RECORDS SUMMARY | 2024-02-04 01:27 | XMS_ITS | Encounter Summary ---
[place] [address] Care Team Providers Care Green Building Energy Engineer Name Role Phone Tristan Soliman DO Primary Care Provider Encounter Details Date Type Department Care Team (Late st Contact Info) Description 08/17/2010 5:15 PM EST Office Visit Dermatology [address] [facility] [address] [place], [place] [id number] Andreas Richardson MD [address] [place] [address] Social History Tobacco Use Types Packs/Day Years Used Date Smoking Tobacco: Never Assessed Sex and Gender Information Value Date Recorded Sex Assigned at Not on file Gender Identity Not on file Sexual Orientation Not on file documented as of this encounter Plan of Treatment Not on file documented as of this encounter Visit Diagnoses Not on filedocumented in this encounter Care Teams Green Building Energy Engineer Relationship Specialty Start Date End Date Tristan Soliman DO [address] [place] [address] PCP - General 05/09/10 11/26/16 documented as of this encounter
--- OUTSIDE RECORDS SUMMARY | 2024-02-04 01:27 | XMS_ITS | Encounter Summary ---
Author Organization [facility] [place] [address] Care Team Providers Care Interactive Media Marketing Strategist Name Role Phone JourdanTristan batres Primary Care Provider Reason for Visit * Reason Comments Psoriasis Encounter Details Date Type Department Care Team (Late st Contact Info) Description 02/26/2013 8:15 AM EDT Follow-Up Dermatology at [facility] [address] [place] [address] Kell Young MD [facility] [place] [address] High risk medication use (Primary Dx); Psoriasis Discharge Disposition: Home Social History Tobacco Use Types Packs/Day Years Used Date Smoking Tobacco: Former Sex and Gender Information Value Date Recorded Sex Assigned at Not on file Gender Identity Not on file Sexual Orientation Not on file documented as of this encounter Progress Notes * Kell Young MD - 02/26/2013 8:33 AM EDT DERMATOLOGY ESTABLISHED PATIENT CLINIC NOTE Date of service: 02/26/2013 Jesika Sprague : 1970 Provider: Kell Young MD Chief Complaint Patient presents with ??? Psoriasis SKIN HISTORY: Psoriasis Quantiferon Gold- Negative- 02/26 HPI Jesika Sprague is a 42 y.o. year old female; established patient to dermatology; new to myself. Here today for psoriasis and her 4th Stelara injection. She has not had any injections since September because of insurance issues and states that she is unsure whether the medication is working. Patient is currently experiencing flares on her knuckles, knees, elbows, and lower legs. She states that during the winter months her psoriasis completely goes away but once summer hits, she flares. She is currently using Clobetasol 1-2x/day everyday and an OTC Vaseline-type consistency ointment. Patient denies any fever, joint pains, or cough/cold/ illness. In addition to the Stelara she has also been on multiple topicals, Humira, and Enbrel without success in the past. No prior personal or FH of heart failure or demyelinating disease. MEDS: Current Outpatient Prescriptions Medication Status Sig Dispense Refill ??? clobetasol (TEMOVATE) 0.05 % ointment Active Apply to affected areas PRN 30 g 2 ??? Calcipotriene (DOVONEX) 0.005 % Crea Active Apply topically 2 times daily. Apply twice daily onthe to affected areas as directed. 60 g 2 ??? SIMVASTATIN ORAL Active Take by mouth. ??? Etanercept (ENBREL SURECLICK) 50 mg/mL (0.98 mL) PnIj Active Inject 50 mg subcutaneously twice a week. ??? methoxsalen (OXSORALEN) 10 mg Cap Active Take 10 mg by mouth three times a week. 1/2 hour priorto light treatment ??? Calcipotriene (DOVONEX) 0.005 % Crea Active 1 Appl(s), Top, PRN ??? betamethasone dipropionate (DIPROLENE) 0.05 % cream Active 1 Appl(s), Top, as directed ??? fluocinolone (DERMA-SMOOTHE) 0.01 % external oil Active 1 Appl(s), Top, as directed ??? triamcinolone (KENALOG) 0.1 % cream Active 1 Appl(s), Top, Twice daily ??? sertraline (ZOLOFT) 50 mg tablet Active .5 tab x 7 days then whole tab daily, PO, Once daily ??? atorvastatin (LIPITOR) 80 mg tablet Active 80MG = 1 Tablet(s), PO, Once daily ADR: No Known Allergies ROS General: feeling well Skin: denies other skin complaints EXAM General: NAD, pleasant, cooperative Skin: A total body skin exam except for the genitalia was performed. This includes examination of the skin of the face, ears, neck, chest, axillae, left and right upper and lower extremities, hands, feet, abdomen, back, and buttocks. The genitalia, perineum, and perianal areas were not examined. Significant skin findings: A. Scattered well-demarcated, thick erythematous plaques with silvery scale distributed on dorsal hands, knees, and elbows, and scattered smaller papules on the legs. Approximately 5 % body surface area involved. The worst area(s) of psoriasis for this patient is/are: patient's knuckles and knees ASSESSMENT/PLAN: A. Psoriasis -Will continue with Stelara injection today. Stelara 45mg/0.5mL injection given today subcutaneously: left upper arm (Patient supplied: Lot #: [id number] Exp: 10/2013) -Recommended patient alternate between Dovonex and Clobetasol. -Rx: Dovonex 0.005% cream -apply to affected areas BID Saturday-Saturday (60g, 3 refills) -Rx: Clobetasol 0.05% ointment -apply to affected areas BID Saturday-Saturday (30g, 3 refills) -Labs today: CBC and CMP Reviewed risks, including but not limited to immunosuppression and risk of infection and possible malignancy, potential neurologic d/o, need for regular follow up and lab monitoring. RTC: 3 months for 5th Stelara injection I am documenting this encounter acting as the scribe for and in the presence of Dr. Young.: YANETH TABARES LPN I performed the above scribed service and agree with the accuracy of the documentation in this encounter. Kell Young MD Student Success Counselor of Dermatology, Department of Photograph DeveloperStudent Success Counselorregional climate change analyst (Dermatopathology) [facility] documented in this encounter Plan of Treatment Not on file documented as of this encounter Procedures Procedure Name Priority Date/Time Associated Diagnosis Comments DIFFERENTIAL, AUTOMATED Routine 02/26/2013 8:54 AM EDT CBC (WITH DIFF) Routine 02/26/2013 8:54 AM EDT High risk medication use COMPREHENSIVE METABOLIC PANEL Routine 02/26/2013 8:54 AM EDT High risk medication use documented in this encounter Results * (ABNORMAL) Differential, Automated (02/26/2013 8:54 AM EDT) Neutrophil % 68.7 34.0 - 71.0 % CERNER MILLENNIUM Neutrophil Absolute 10.02(H) 1.50 - 6.30 x10(3)/mc L CERNER MILLENNIUM Lymph % 23.1 19.0 - 53.0 % CERNER MILLENNIUM Lymphocytes Abs 3.4 1.0 - 3.6 x10(3)/mc L CERNER MILLENNIUM Monocyte % 6.2 4.0 - 13.0 % CERNER MILLENNIUM Monocyte Abs 0.9 0.2 - 1.0 x10(3)/mc L CERNER MILLENNIUM Eos % 1.0 0.0 - 7.0 % CERNER MILLENNIUM Eosinophils Abs 0.1 0.0 - 0.5 x10(3)/mc L CERNER MILLENNIUM Basophil % 0.3 0.0 - 2.0 % CERNER MILLENNIUM Baso Absolute 0.0 0.0 - 0.2 x10(3)/mc L CERNER MILLENNIUM Immature Gran % 0.70(H) 0.00 - 0.66 % CERNER MILLENNIUM Comment: Immature granulocytes(IG's)percentage and absolute count will include metamyelocytes, myelocytes, and promyelocytes. Blood smears from CBCs yielding IG's will be scanned manually for concordance. If this scan disagrees with the automated IG or if promyelocytes are noted, a manual differential will be performed. Immature Gran Absolute 0.10(H) 0.00 - 0.05 x10(3)/mc L CERNER MILLENNIUM Blood specimen (specimen) 02/26/2013 8:54 AM EDT 02/26/2013 1:09 PM EDT Kell Young MD HEMATOLOGY ORDERABL ES CERNER NETOENNIUM * Comprehensive metabolic panel (non-fasting) (02/26/2013 8:54 AM EDT) [facility] Glucose 106 60 - 199 mg/dL CERNER MILLENNIUM Comment:Diabetes: >=200 mg/d L plus symptoms Blood Urea Nitrogen 11 8 - 18 mg/dL CERNER MILLENNIUM Creatinine 0.77 0.70 - 1.20 mg/dL CERNER MILLENNIUM Comment: Please note that the pediatric reference intervals supplied above were not validated at [facility]. Results from pediatric patients should be interpreted in conjunction to the patient's age, height and muscle mass. Sodium 136 135 - 145 mmol/L CERNER MILLENNIUM Potassium 3.9 3.5 - 5.0 mmol/L CERNER MILLENNIUM Comment: Please note: ??Patients with WBC >100,000 may have falsely elevated Potassium levels. ??For accurate Potassium quantification in these patients send serum separator tube (gold top) for subsequent determinations. ??Contact the Clinical Chemistry Laboratory if there are any questions. Chloride 101 98 - 107 mmol/L CERNER MILLENNIUM Carbon Dioxide 23 22 - 31 mmol/L CERNER MILLENNIUM Anion Gap 12 5 - 15 mmol/L CERNER MILLENNIUM Calcium 9.1 8.5 - 10.5 mg/dL CERNER MILLENNIUM Protein, Total 7.4 6.4 - 8.3 gm/dL CERNER MILLENNIUM Albumin 4.3 3.2 - 5.2 gm/dL CERNER MILLENNIUM Aspartate Aminotransferase 18 0 - 30 unit/L CERNER MILLENNIUM Alanine Aminotransferase 19 0 - 30 unit/L CERNER MILLENNIUM Alkaline Phosphatase 98 40 - 104 unit/L CERNER MILLENNIUM Bilirubin, Total 0.4 0.2 - 1.3 mg/dL CERNER MILLENNIUM Bilirubin, Direct 0.1 0.0 - 0.3 mg/dL CERNER MILLENNIUM Est Glomerular Filtration Rate >60 >=60 CERNER MILLENNIUM Comment: This estimated GFR (eGFR) value was [...] the following links into your internet browser. http://www.nkdep.nih.gov/lab-evaluation.shtml http://www.kidney.org/professionals/ Blood specimen (specimen) 02/26/2013 8:54 AM EDT 02/26/2013 1:08 PM EDT Narrative Resulting Agency Comment Spec In Lab Kell Young MD CHEMISTRY ORDERABLE S CERNER MILLENNIUM * (ABNORMAL) CBC (with Diff) (02/26/2013 8:54 AM EDT) White Blood Cell 14.6(H) 4.0 - 10.0 x10(3)/mc L CERNER MILLENNIUM Red Blood Cell 5.03 3.93 - 5.22 x10(6)/mc L CERNER MILLENNIUM Hemoglobin 15.1 11.2 - 15.7 gm/dL CERNER MILLENNIUM Hematocrit 44.9 34.0 - 45.0 % CERNER MILLENNIUM Mean Cell Volume 89.3 79.0 - 94.0 fL CERNER MILLENNIUM Mean Cell Hemoglobin 30.0 26.6 - 32.2 pg CERNER MILLENNIUM Mean Cell Hemoglobin Concentration 33.6 32.0 - 36.5 gm/dL CERNER MILLENNIUM Platelet 222 145 - 370 x10(3)/mc L CERNER MILLENNIUM RDW Standard Deviation 44.2 35.0 - 46.0 fL CERNER MILLENNIUM RDW coefficient of variation 13.5 10.9 - 14.4 % CERNER MILLENNIUM Mean Platelet Volume 11.6 9.0 - 12.0 fL CERNER MILLENNIUM Blood specimen (specimen) 02/26/2013 8:54 AM EDT 02/26/2013 1:09 PM EDT Narrative Resulting Agency Comment Spec In Lab Kell Young MD HEMATOLOGY ORDERABL ES CERNER MILLENNIUM documented in this encounter Visit Diagnoses Diagnosis High risk medication use- Primary Encounter for long-term (current) use of other medications Psoriasis Other psoriasis documented in this encounter Care Teams Interactive Media Marketing Strategist Relationship Specialty Start Date End Date Tristan Soliman DO [address] [place] [address] [address] [facility] [address] [place] [address] PCP - General 05/09/10 11/26/16 documented as of this encounter
--- OUTSIDE RECORDS SUMMARY | 2024-02-04 01:27 | XMS_ITS | Encounter Summary ---
Author Organization [facility] [place] [address] Care Team Providers Care Laboratory Development Technician Name Role Phone Tristan Soliman DO Primary Care Provider Reason for Visit * Reason Comments Depression Encounter Details Date Type Department Care Team (Late st Contact Info) Description 05/21/2016 11:20 AM EST - 05/21/2016 4:29 PM EST [place] [address] Kyler Mackenzie MD [facility] [address] [place] [address] Anxiety; Suicide ideation Discharge Disposition: Psych Hospital/Distinct Part of Hospital Social History Tobacco Use Types Packs/Day Years [...] Sign Reading Time Taken Comments Blood Pressure 121/70 05/21/2016 2:31 PM EST Pulse 68 05/21/2016 2:31 PM EST Temperature 37.1 ??C (98.8 ??F) 05/21/2016 11:[address] Respiratory Rate 18 05/21/2016 2:31 PM EST Oxygen Saturation 98% 05/21/2016 2:31 PM EST Inhaled Oxygen Concentration - - Weight 96.2 kg (212 lb) 05/21/2016 11:30 AM EST Height 160 cm (5' 3) 05/21/2016 11:30 AM EST Body Mass Index 37.55 05/21/2016 11:30 AM EST documented in this encounter Medications at Time [...] mouth daily. 15 capsule 1 05/27/2016 08/06/2016 sulfamethoxazole-tr imethoprim (BACTRIM DS) 800-160 mg Tablet TAKE ONE TABLET BY MOUTH TWICE A DAY 0 05/16/2016 05/27/2016 pravastatin (PRAVACHOL) 40 mg Tablet Reported on [...] 05/07/2006 08/06/2016 documented as of this encounter ED Notes * Marilin Cardona RN - 05/21/2016 3:07 PM EST Plan for inpatient admission * Kyler Mackenzie MD - 05/21/2016 1:26 PM EST Brief Attending Note I cared for the patient with the resident physician. Please see Dr. Agrawal note, associated withthe encounter, for more details. HPI: Jesika Sprague is a 45 y.o. who presents to the ED with severe anxiety which started last (5days ago) after starting sertraline. She has had thoughts racing, palpitations, dizziness, headache, generalized weakness. She has considered overdosing on pills to kill herself, just to stop the sensation of anxiety that she is having. She had a similar symptom 6 months ago when being treated for a urinary tract infection, which lasted approximately 7 weeks a month and was treated with propranolol and lorazepam. She was seen at [facility] for similar symptoms yesterday and had a reportedly negative blood work and a conveyor monitor placed, which she is wearing today. She has been unable to leave the house, and has not been able to work for 3 days, only sleeping 3-4 hours at night. When she awakens, she states she is immediately wide awake. ROS: Pertinent positives and negatives are included in the history of present illness, otherwise 10 systems are reviewed and negative Gen: well appearing, extremely anxious HENT: , atraumatic, OP clear, mmm, Destiney-Hallpike equivocal bilateral (reproduces symptoms of dizziness though no nystagmus appreciated) Pulm: CTA yon, no respiratory distress Card: RRR Abd: soft, nt Skin: warm and dry Neuro: speech fluent, no obvious deficit MS: No obvious deformity Psych: Anxious appearing Assessment: The patient presents with severe anxiety and multiple associated somatic symptoms. Her neurologic exam is reassuring. CT head and basic blood work are reassuring. We will consult psychiatry given the profound effect this is having on her ability to function. Kyler Mackenzie MD 05/21/16 1329 * Marilin Cardona RN - 05/21/2016 11:52 AM EST Pt came c/o anxiety, palpitations, dizziness, headache, general weakness of the legs, suicidal thoughts of taking pills to stop symptoms of anxiety. Pt dx with uti Saturday started bactrim, and asked doctor about taking something for anxiety pcm started her on sertaline at time. Pt symptoms worsened and she went to [facility] er had a work up and gave her a heart monitor. Pt states 6months ago she had a similar situation where she was already taking sertaline, was dx with uti started bactrim and then had a 7week peroid of increased anxiety. Pt states she hasn't been sleeping, has not ate in 4days, has trouble leaving the house. Pt is tearful, shaking, anxious. Pt has contracted for safety.Denies HI. is in the room with pt. Pt in a gown with belongings in a bag with . Pt a/ox4. +cmsx4. +2lvulcfu8. =aromx4. Warm/pink/dry. Afebrile. LS clear. abd soft n-tender. Denies chest pain/sob. Neuro intact/symmetrical. * Edith Gan LNA - 05/21/2016 11:50 AM EST Ordered EKG due to pt being in CT. * Lizy Agrawal - 05/21/2016 11:43 AM EST Jesika Sprague is an 45 y.o. female who presents to the ED with: Chief Complaint Patient presents with ??? Depression I saw this patient 05/21/2016 at 1:21 PM HPI Jesika Sprague is a 45 y.o. female who presents to the Emergency Department with complaint of anxiety. According the patient and she has worsening anxiety for the past week, she was seen by her primarycare doctor on Saturday at which time she was started on sertraline, there is noted worsening or symptoms since that time. She was seen yesterday at [facility] where she she was placed on a conveyor monitor, she states she presented there for palpitations. 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 She denies othermedical problems with the exception of psoriasis, no history of suicidal ideation. States that today her anxiety so that she did not hurt herself, states that she would take pills. She is denies hallucinations, no homicidal ideation. the home. she does endorse nausea which is worse in the morning with vomiting, headaches, diffuse weakness. no unilateral weakness or numbness, no difficulty walking. no fevers or chills, no neck stiffness or unusual back pain or abdominal pain. Review of Systems: Review of Systems Constitutional: Negative for fever. HENT: Negative for congestion. Eyes: Negative for visual disturbance. Respiratory: Negative for shortness of breath. Cardiovascular: Negative for chest pain. Gastrointestinal: Positive for nausea and vomiting. Negative for abdominal pain. Genitourinary: Negative for dysuria. Musculoskeletal: Negative for back pain and gait problem. Skin: Negative for rash. Neurological: Positive for headaches. Negative for syncope and weakness. Hematological: Does not bruise/bleed easily. Psychiatric/Behavioral: Positive for self-injury. Negative for confusion. The patient is nervous/anxious. Last value Range last 24 hrs Temperature Temp: 37.1 ??C (98.8 ??F) Temp: [37.1 ??C (98.8 ??F)] Heart Rate Heart Rate: 70 Heart Rate: [70-71] Blood Pressure BP: 117/74 BP: (117-133)/(74-93) Respiratory Rate Resp: 18 Resp: [18-20] SpO2 SpO2: 96 % SpO2: [96 %-97 %] Art BP BP (Arterial Line): -- Physical Exam: Physical Exam Constitutional: She is oriented to person, place, and time. She appears well- developed and well-nourished. No distress. HENT: Head: Normocephalic and atraumatic. Mouth/Throat: Oropharynx is clear and moist. Eyes: EOM are normal. Pupils are equal, round, and reactive to light. Neck: Normal range of motion. Neck supple. Cardiovascular: Normal rate, regular rhythm and intact distal pulses. Pulmonary/Chest: Effort normal and breath sounds normal. She has no wheezes. She has no rales. Abdominal: Soft. There is no tenderness. There is no rebound and no guarding. Musculoskeletal: She exhibits no edema or tenderness. Neurological: She is alert and oriented to person, place, and time. She exhibits normal muscle tone. Coordination normal. Skin: Skin is warm and dry. No rash noted. She is not diaphoretic. Psychiatric: Her mood appears anxious. Her affect is labile. Nursing note and vitals reviewed. ED Course: - Patient was evaluated and discussed with Dr. Dyson - Medications, allergies and past medical history reviewed - Medications and fluids administered: I reviewed the CT images: No acute intracranial hemorrhage, no mass effect I reviewed the EKG: Sinus rhythm with rate approximately 75, normal axis, there is no ST elevation or depression, NE intervals 170 ms, QRS is narrow, QTC C is 440 ms I reviewed the patient's labwork: Recent Results (from the past 24 hour(s)) Hepatic Function Panel Result Value Ref Range [...] Abs 0.06 (H) 0.00 - 0.04 x10(3)/mcL Assessment and Plan: Assessment: 45 y.o. female with anxiety, suicidal ideas. Given her multiple new headaches with nausea and vomiting and diffuse weakness, extensive medical clearance including CT of her head as well as labs and EKG were performed which did not reveal any intracranial hemorrhage or mass effect. She did not have lab abnormalities or EKG abnormalities to increased my concern. Patient was discussed with psychiatry who felt she was appropriate for admission and the patient was amenable to admission. At this point the patient has been considered medically cleared. Plan: - Admit to inpatient psychiatry Lizy Agrawal DO Resident 05/21/16 1436 Associated attestation - Kyler Mackenzie MD - 05/22/2016 10:45 PM EST ED ATTENDING ATTESTATION The patient was seen in conjunction with the resident physician. I have independently performed thekey portions of the history and physical exam. I have personally reviewed nursing notes, vital signs, and diagnostic studies including labs, imaging studies and EKGs. I have discussed the details of the case with the resident and agree with the assessment and plan as described in the resident's note, unless stated otherwise in my separate note. documented in this encounter Miscellaneous Notes * Consult Note - Jacquie Narvaez MSW - 05/21/2016 2:43 PM EST EMERGENCY DEPARTMENT PSYCHIATRIC EVALUATION CPT CODE 74086; COLLEEN CODE 5000 The patient was seen at 1:55pm (time). Time Spent: 45 minutes Referral Source: Dr. Lizy Agrawal Additional Attendee(s) (identify by relationship to pt.): [place] Erinm, Information source: Patient and her [place]. Chief Complaint: 45 y.o. Female presents to [facility] with increased anxiety since 05/16/16 [...] attempt, psychiatric hospitalization or mental health therapy. Past Psychiatric History: Prior diagnoses: Depression, anxiety [...] in 20 years. Denies all other substances. Problem List: Patient Active Problem List Diagnosis Code ??? Psoriasis L40.9 Past Medical/Surgical History: History reviewed. No pertinent past medical history. Past Surgical History Procedure Laterality Date ??? Ablation of dysrhythmic focus Current Medications: No current facility-administered medications on file prior to encounter. Current Outpatient Prescriptions on File Prior to Encounter Medication Sig Dispense Refill ??? atorvastatin (LIPITOR) 80 mg tablet 80MG = 1 Tablet(s), PO, Once daily ??? pravastatin (PRAVACHOL) 40 mg Tablet TAKE [...] % cream 1 Appl(s), Top, Twice daily Allergies: No Known Allergies Family Psychiatric/Medical History: (mental illness, substance use, suicide) Not obtained Social History: Patient is and lives in [place], [place] with her . Her mother and adult son live in the [place], [place] area. PSYCHIATRIC / MENTAL STATUS EXAMINATION (See also: MSE: Behavior) ??? Appearance: Appears stated age, wearing a hospital gown and ball cap. Behavior: Cooperative and engaging ??? Speech: soft ??? Language: normal ??? Mood: depressed and anxious Affect: flat ??? Thought Process: racing ??? Associations: intact ??? Thought Content: suicidal ideation with plan to overdose on pills, denies homicidal ideation Perception: No hallucinations or delusions ??? Orientation: fully alert and oriented ??? Attention/Concentration: difficulty concentrating Cognition: intact ??? Memory: recent and remote memory are intact ??? Fund of Knowledge: age appropriate ??? Insight: good Judgment: good Assessment: Mrs. 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 20 years ago she saw a psychiatrist one time and he prescribed Sertraline 50mg which her PCP had continued until 6 months ago when she had the first episode of increased anxiety. At that time her PCP discontinued the Sertraline and an injection for psoriasis and started her on propranolol and lorazepam. On 05/16/16 she saw her PCP because she thought she has a UTI and she mentioned increased anxiety. Her PCP restarted her on Sertraline 50mg. She took 2 doses of Sertraline but began having intense symptoms of anxiety and herPCP discontinued it and started her on Propranolol. Symptoms of anxiety have worsened and symptoms of depression increased as well. She began feeling she would rather be than live with the constant anxiety and developed a plan to overdose on her medications. She has never been in therapy, psychiatrically hospitalized or had suicidal ideation or suicide attempt. Diagnosis: [place] I: Depression, Panic Disorder [place] II: [place] III: Psoriasis [place] IV: [place] V: current GAF 25 Plan/Recommendations: Patient meets criteria for psychiatric hospitalization for safety, mood stabilization and medication optimization. Hospitalization is recommended and patient agrees to voluntary hospitalization at this facility. She will be admitted today. * ED Triage - Marilin Cardona RN - 05/21/2016 11:25 AM EST Pt here for anxiety/suicidal ideation, of taking pills. Pt dx with uti(on bactrim) Saturday asked provider to have something for anxiety, md started sertaline and since pt has had increased anxiety/suicidal thoughts/palpitations/lower ext weakness. Same thing happened 6months ago when pt was on sertaline and dx with uti(pt had stopped sertaline 6months ago at that point). Pt on heart monitor forpalpitations. A/ox4. Denies HI. Contract for safety. documented in this encounter Plan of Treatment Not on file documented as of this encounter Procedures Procedure Name Priority Date/Time Associated Diagnosis Comments RAPID DRUG SCREEN W/O CONFIRMATION, URINE STAT 05/21/2016 1:42 PM EST URINALYSIS WITH REFLEX CULTURE STAT 05/21/2016 1:42 PM EST URINE CULTURE STAT 05/21/2016 1:42 PM EST EKG 12-LEAD STAT 05/21/2016 12:29 PM EST HEMOGRAM STAT 05/21/2016 12:04 PM EST DIFFERENTIAL, AUTOMATED STAT 05/21/2016 12:04 PM EST CBC (WITH DIFF) STAT 05/21/2016 12:04 PM EST TSH STAT 05/21/2016 12:04 PM EST HEPATIC FUNCTION PANEL STAT 05/21/2016 12:04 PM EST BASIC METABOLIC PANEL STAT 05/21/2016 12:[address] HEAD WO CONTRAST (GENERIC) STAT 05/21/2016 11:52 AM EST POCT URINE STAT 05/21/2016 documented in this encounter Results * (ABNORMAL) Urine culture (05/21/2016 1:42 PM EST) Pathologist [facility] Urine Culture 1,000-9,000 cfu/ml Gram Positive organisms , probable contaminant(A ) [facility] Urine specimen obtained by clean catch procedure (specimen) 05/21/2016 1:42 PM EST 05/21/2016 2:35 PM EST Narrative Resulting Agency Comment Spec In Lab Teena Bernabe MD MICROBIOLOGY - GENER AL ORDERABLES [facility] [place] [address] * Rapid Drug Screen, Urine (05/21/2016 1:42 PM EST) [facility] Marijuana Metabolites Screen None Detected None Detected [facility] Comment: The marijuana metabolites screen detects the THC Metabolite (24-hnx-9-carboxy-delta 9-THC) at concentrations >50 ng/mL. Qualitative Drug screens are reported as ? None Detected? or ? Presumptive Positive? as the results are not routinely confirmed by highly-specific methods. As with any screen occasional false positive results from cross-reacting substances can occur. Not for Medico-Legal Purposes. Phencyclidine Screen, Urine None Detected None Detected [facility] Comment: The phencyclidine screen detects phencyclidine at concentrations >25 ng/mL. Qualitative Drug screens are reported as ? None Detected? or ? Presumptive Positive? as the results are not routinely confirmed by highly-specific methods. As with any screen occasional false positive results from cross-reacting substances can occur. Not for Medico-Legal Purposes. [facility]JO Cocaine Metabolites Screen None Detected None Detected [facility] Comment: The cocaine metabolites screen detects benzoylecgonine (Cocaine Metabolite) at concentrations >150 ng/mL. Qualitative Drug screens are reported as ? None Detected? or ? Presumptive Positive? as the results are not routinely confirmed by highly-specific methods. As with any screen occasional false positive results from cross-reacting substances can occur. Not for Medico-Legal Purposes. Methamphetamines Screen, Urine None Detected None Detected [facility] Comment: The methamphetamine screen detects d-methamphetamine at concentrations >500 ng/mL. Qualitative Drug screens are reported as ? None Detected? or ? Presumptive Positive? as the results are not routinely confirmed by highly-specific methods. As with any screen occasional false positive results from cross-reacting substances can occur. Not for Medico-Legal Purposes. [facility] Opiates Screen None Detected None Detected [facility] Comment: The opiates screen detects opiates at a concentration >100 ng/mL and oxymorphone >250 ng/mL. Qualitative Drug screens are reported as ? None Detected? or ? Presumptive Positive? as the results are not routinely confirmed by highly-specific methods. As with any screen occasional false positive results from cross-reacting substances can occur. Not for Medico-Legal Purposes. [facility] Amphetamines Screen None Detected None Detected [facility] Comment: The amphetamine screen detects d-amphetamine at concentrations >500 ng/mL. Qualitative Drug screens are reported as ? None Detected? or ? Presumptive Positive? as the results are not routinely confirmed by highly-specific methods. As with any screen occasional false positive results from cross-reacting substances can occur. Not for Medico-Legal Purposes. [facility] Benzodiazepines Screen None Detected None Detected [facility] Comment: The benzodiazepines screen detects benzodiazepines at concentrations >150 ng/mL. Not all benzodiazepines cross-react equally with antibody used in this screen. Due to the low dosage of clonazepam, false negatives may be obtained due to low concentration of clonazepam metabolites. Qualitative Drug screens are reported as ? None Detected? or ? Presumptive Positive? as the results are not routinely confirmed by highly-specific methods. As with any screen occasional false positive results from cross-reacting substances can occur. Not for Medico-Legal Purposes. [facility] Tricyclics Screen None Detected None Detected [facility] Comment: The tricyclics screen detects tricyclic antidepressants at concentrations >300 ng/mL. Not all tricyclics cross-react equally with the antibody used in this screen. Qualitative Drug screens are reported as ? None Detected? or ? Presumptive Positive? as the results are not routinely confirmed by highly-specific methods. As with any screen occasional false positive results from cross-reacting substances can occur. Not for Medico-Legal Purposes. [facility] Methadone Screen None Detected None Detected [facility] Comment: The methadone screen detects methadone at concentrations >200 ng/mL. Qualitative Drug screens are reported as ? None Detected? or ? Presumptive Positive? as the results are not routinely confirmed by highly-specific methods. As with any screen occasional false positive results from cross-reacting substances can occur. Not for Medico-Legal Purposes. [facility]JO Barbiturates Screen None Detected None Detected [facility] Comment: The barbiturates screen detects barbiturate at concentrations >200 ng/mL. Note: Not all barbiturates cross-react equally with antibody used in this screen. Qualitative Drug screens are reported as ? None Detected? or ? Presumptive Positive? as the results are not routinely confirmed by highly-specific methods. As with any screen occasional false positive results from cross-reacting substances can occur. Not for Medico-Legal Purposes. [facility]JO Oxycodone Srceen None Detected None Detected [facility] Comment: The oxycodone screen detects oxycodone at concentrations >100 ng/mL and oxymorphone >250 ng/ml. Qualitative Drug screens are reported as ? None Detected? or ? Presumptive Positive? as the results are not routinely confirmed by highly-specific methods. As with any screen occasional false positive results from cross-reacting substances can occur. Not for Medico-Legal Purposes. Propoxyphene Screen, Urine None Detected None Detected [facility] Comment: The propoxyphene screen detects propoxyphene at concentrations >300 ng/mL. Qualitative Drug screens are reported as ? None Detected? or ? Presumptive Positive? as the results are not routinely confirmed by highly-specific methods. As with any screen occasional false positive results from cross-reacting substances can occur. Not for Medico-Legal Purposes. [facility]JO Buprenorphine Screen None Detected None Detected [facility] Comment: The buprenorphine screen detects buprenorphine at concentrations >10 ng/mL. Qualitative Drug screens are reported as ? None Detected? or ? Presumptive Positive? as the results are not routinely confirmed by highly-specific methods. As with any screen occasional false positive results from cross-reacting substances can occur. Not for Medico-Legal Purposes. [facility] Adulterants Screen None Detected None Detected [facility] Comment: No adulteration or dilution of this urine sample was detected. All urine samples submitted for urine drugs of abuse analysis are tested for Creatinine and pH and for the presence of oxidants, nitrites, chromate and aldehydes (glutaraldehyde). Urine specimen (specimen) 05/21/2016 1:42 PM EST 05/21/2016 2:09 PM EST Narrative Resulting Agency Comment Spec In Lab Teena Bernabe MD URINE ORDERABLES Performing Organization Address City/State/[facility] Co de Phone Number [facility] [place] [address] * (ABNORMAL) Urinalysis with reflex Culture (05/21/2016 1:42 PM EST) Glucose, Urine Dipstick Negative Negative mg/dL [facility] Protein, Urine Dipstick Negative Negative mg/dL [facility] Bilirubin, Urine Dipstick Negative Negative mg/dL [facility] Comment: Clinical correlation required for positive Urine Bilirubin results as false positive may occur with some drugs and drug related products. If a false positive is suspected a serum total bilirubin should be considered if clinically indicated. Urobilinogen, Urine Dipstick Normal Normal mg/dL [facility] pH, Urn (dipstick) 6.0 5.0 - 8.0 [facility] Blood, Urine Dipstick Large(A) Negative mg/dL [facility] Ketone, Urine Dipstick Negative Negative mg/dL [facility] Nitrite, Urine Dipstick Negative Negative [facility] Leukocytes, Urine Dipstick Large(A) Negative [facility] Appearance, Urine Dipstick Clear Clear [facility] Specific [place] Urine Automated 1.008 1.002 - 1.030 [facility] Color, Urine Dipstick Yellow Yellow [facility] RBC, Urine 5(H) 0 - 4 /HPF [facility] WBC, Urine 20(H) 0 - 5 /HPF [facility] Bacteria, Urine Rare(A) None /HPF [facility] Squamous Epithelial Cells, Urine 3 <=4 /HPF [facility] Amorphous Crystals, Urine Rare(A) None /HPF [facility] Reflex to Culture Yes [facility] Urine specimen obtained by clean catch procedure (specimen) 05/21/2016 1:42 PM EST 05/21/2016 2:09 PM EST Narrative Resulting Agency Comment Spec In Lab Teena Bernabe MD URINE ORDERABLES [facility] [place] [id number] * EKG 12 Lead (05/21/2016 12:29 PM EST) Ventricular rate 73 BPM MUSE SYSTEM Atrial Rate 73 BPM MUSE SYSTEM P-R Interval 170 ms MUSE SYSTEM QRS Duration 84 ms MUSE SYSTEM Q-T Interval 400 ms MUSE SYSTEM QTC Calculated (Bezet) 440 ms MUSE SYSTEM Calculated P [place] 24 degrees MUSE SYSTEM Calculated R [place] 62 degrees MUSE SYSTEM Calculated T [place] 29 degrees MUSE SYSTEM INTERPRETATION Normal sinus rhythm Normal ECG When compared with ECG of 21-MAY-1995 12:27, QT has lengthened Confirmed by MD MARGARITO, SIENA ([id number]) on 05/21/2016 3:04:55 PM MUSE SYSTEM 05/21/2016 12:2 9 PM EST 05/21/2016 3:04 PM EST Kyler Mackenzie MD ECG ORDERABLES MUSE SYSTEM * (ABNORMAL) Differential, Automated (05/21/2016 12:04 PM EST) Neutrophil % 75.8 % [facility] Neutrophil Absolute 9.43(H) 1.70 - 6.10 x10(3)/ L [facility] Lymph % 17.8 % [facility] Lymphocytes Abs 2.2 0.9 - 3.2 x10(3)/[facility] Monocyte % 4.9 % [facility] Monocyte Abs 0.6 0.3 - 0.9 x10(3)/[facility] Eos % 0.5 % [facility] Eosinophils Abs 0.1 0.0 - 0.4 x10(3)/[facility] Basophil % 0.5 % [facility] Baso Absolute 0.1 0.0 - 0.1 x10(3)/[facility] Immature Gran % 0.50 % [facility] Comment: Immature granulocytes(IG's)percentage and absolute count will include metamyelocytes, myelocytes, and promyelocytes. Blood smears from CBCs yielding IG's will be scanned manually for concordance. If this scan disagrees with the automated IG or if promyelocytes are noted, a manual differential will be performed. Immature Gran Absolute 0.06(H) 0.00 - 0.04 x10(3)/ L [facility] Blood specimen (specimen) 05/21/2016 12:04 PM EST 05/21/2016 12:09 PM EST Narrative Resulting Agency Comment Spec In Lab Kyler Mackenzie MD HEMATOLOGY ORDERAB LES Performing Organization Address City/[facility]/ZIP Co de Phone Number [facility] [place] [address] * (ABNORMAL) Hemogram (05/21/2016 12:04 PM EST) White Blood Cell 12.4(H) 4.0 - 9.5 x10(3)/[facility] Red Blood Cell 5.17 4.00 - 5.21 x10(6)/[facility] Hemoglobin 15.3 11.7 - 15.5 gm/dL [facility] Hematocrit 44.6 35.7 - 45.8 % [facility] Mean Cell Volume 86.3 82.6 - 94.4 fL [facility] Mean Cell Hemoglobin 29.6 27.1 - 32.0 pg [facility] Mean Cell Hemoglobin Concentration 34.3 31.7 - 35.0 gm/dL [facility] Platelet 390(H) 145 - 357 x10(3)/[facility] RDW Standard Deviation 39.6 37.0 - 46.0 [facility] RDW coefficient of variation 12.4 11.5 - 14.1 % [facility] Mean Platelet Volume 11.0 7.6 - 12.9 fL [facility] NRBC% auto 0.0 % [facility] NRBC Absolute 0.000 0.000 - 0.000 x10(3)/[facility] Blood specimen (specimen) 05/21/2016 12:04 PM EST 05/21/2016 12:09 PM EST Narrative Resulting Agency Comment Spec In Lab Kyler Mackenzie MD HEMATOLOGY ORDERAB LES [facility] [place] [address] * TSH (05/21/2016 12:04 PM EST) Thyroid Stimulating Hormone 2.79 0.27 - 4.20 mcIU/mL [facility] Blood specimen (specimen) 05/21/2016 12:04 PM EST 05/21/2016 12:09 PM EST Narrative Resulting Agency Comment Spec In Lab Kyler Mackenzie MD CHEMISTRY ORDERABL ES [facility] [place] [address] * (ABNORMAL) Basic Metabolic Panel (non-fasting) (05/21/2016 12:04 PM EST) Glucose 116 65 - 199 mg/dL [facility] Comment:Diabetes: >=200 mg/d L plus symptoms Blood Urea Nitrogen 9 8 - 18 mg/dL [facility] Creatinine 0.86 0.70 - 1.20 mg/dL [facility] Comment: Please note that the pediatric reference intervals supplied above were not validated at [facility]. Results from pediatric patients should be interpreted in conjunction to the patient's age, height and muscle mass. Sodium 139 135 - 145 mmol/L [facility] Potassium 4.3 3.5 - 5.0 mmol/L [facility] Comment: Please note: ??Patients with WBC >100,000 may have falsely elevated Potassium levels. ??For accurate Potassium quantification in these patients send serum separator tube (gold top) for subsequent determinations. ??Contact the Clinical Chemistry Laboratory if there are any questions. Chloride 100 98 - 107 mmol/L [facility] Carbon Dioxide 22 22 - 31 mmol/L [facility] Anion Gap 17(H) 5 - 15 mmol/L [facility] Calcium 9.5 8.5 - 10.5 mg/dL [facility] Est Glomerular Filtration Rate >60 >=60 [facility] Comment: This estimated GFR (eGFR) value [...] the following links into your internet browser. [email or web address] Blood specimen (specimen) 05/21/2016 12:04 PM EST 05/21/2016 12:09 PM EST Narrative Resulting Agency Comment Spec In Lab Kyler Mackenzie MD CHEMISTRY ORDERABL ES Performing Organization Address [facility] Co de Phone Number [facility] [place] [address] * (ABNORMAL) Hepatic Function Panel (05/21/2016 12:04 PM EST) Protein, Total 8.1(H) 6.1 - 8.0 gm/dL [facility] Albumin 4.8 3.2 - 5.2 gm/dL [facility] Aspartate Aminotransferase 43(H) 0 - 30 unit/L [facility] Alanine Aminotransferase 52(H) 0 - 30 unit/L [facility] Alkaline Phosphatase 103 40 - 104 unit/L [facility] Bilirubin, Total 0.4 0.2 - 1.3 mg/dL [facility] Bilirubin, Direct 0.1 0.0 - 0.3 mg/dL [facility] Blood specimen (specimen) 05/21/2016 12:04 PM EST 05/21/2016 12:09 PM EST Narrative Resulting Agency Comment Spec In Lab Kyler Mackenzie MD CHEMISTRY ORDERABL ES Performing Organization Address [facility] Co de Phone Number [facility] [place] [address] * CT Head wo Contrast (Generic) (05/21/2016 11:52 AM EST) Anatomical Region Laterality Modality Head Computed Tomogra phy Impressions 05/21/2016 11:58 AM EST Normal head CT. Narrative 05/21/2016 11:58 AM EST EXAMINATION: CT HEAD WO CONTRAST (GENERIC) CLINICAL HISTORY: MILLER, nausea/emesis TECHNIQUE: CT of the head performed without the use of intravenous contrast. COMPARISON: None FINDINGS: The ventricles are normal in size and contour. There is no intracranial hemorrhage, or extra-axial collection. No intracranial mass, mass effect, or shift. Cerebral parenchyma is normal in attenuation. There is no osseous abnormality. Procedure Note Kali Brito MD - 05/21/2016 EXAMINATION: CT HEAD WO CONTRAST (GENERIC) CLINICAL HISTORY: MILLER, nausea/emesis TECHNIQUE: CT of the head performed without the use of intravenouscontrast. COMPARISON: None FINDINGS: The ventricles are normal in size and contour. There is no intracranial hemorrhage, or extra-axial collection. No intracranial mass,mass effect, or shift. Cerebral parenchyma is normal in attenuation. There isno osseous abnormality. IMPRESSION Normal head CT. Kyler Mackenzie MD IMG CT ORDERABLES * POCT urine (05/21/2016) POC Urine HCG Negative Negative - Negative POC Control Internal Controls Acceptable 05/21/2016 Teena Bernabe MD POINT OF CARE TEST O RDERABLES documented in this encounter Visit Diagnoses Diagnosis Anxiety Anxiety state, unspecified Suicide ideation Suicidal ideation documented in this encounter Care Teams Laboratory Development Technician Relationship Specialty Start Date End Date Tristan Soliman DO [address] [place] [address] PCP - General 05/09/10 11/26/16 documented as of this encounter
--- OUTSIDE RECORDS SUMMARY | 2024-02-04 01:27 | XMS_ITS | Encounter Summary ---
Author Organization [facility], Located Within [facility] Malia espinoza [place] [id number] Care Team Providers Care Candy Catcher Name Role Phone Tristan Soliman DO Primary Care Provider Reason for Visit * Reason Onset Date Comments Other 03/03/2012 PA approval Encounter Details Date Type Department Care Team (Late st Contact Info) Description 03/03/2012 [place] [address] Tammi Carey MD [facility] [address]UDINE [place] [address] Other (PA approval) Social History Tobacco Use Types Packs/Day Years Used Date Smoking Tobacco: Former Sex and Gender Information Value Date Recorded Sex Assigned at Not on file Gender Identity Not on file Sexual Orientation Not on file documented as of this encounter Miscellaneous Notes * Telephone Encounter - Domenica Webb - 03/03/2012 3:[address] Carey patient From [email or web address] approved; PA code 75 Effective Date; 03/03/12 Expiration date;09/02/14 Fill; unlimited catracho documented in this encounter Plan of Treatment Not on file documented as of this encounter Visit Diagnoses Not on filedocumented in this encounter Care Teams Candy Catcher Relationship Specialty Start Date End Date Tristan Soliman DO [address] [place] [address] PCP - General 05/09/10 11/26/16 documented as of this encounter
--- OUTSIDE RECORDS SUMMARY | 2024-02-04 01:27 | XMS_ITS | Encounter Summary ---
Author Organization [facility] [place] [address] Care Team Providers Care Chief Librarian Work With Blind Name Role Phone Tristan Soliman DO Primary Care Provider [phone] Encounter Details Date Type Department Care Team (Late st Contact Info) Description 2012 Telephone Dermatology at [facility] [address] [place] [phone] Danielle Ortega MD [address] [facility] [place] [place] [address] Social History Tobacco Use Types Packs/Day Years Used Date Smoking Tobacco: Former Sex and Gender Information Value Date Recorded Sex Assigned at Not on file Gender Identity Not on file Sexual Orientation Not on file documented as of this encounter Miscellaneous Notes * Telephone Encounter - Logan Powers - 2012 11:27 AM EDT Spoke with [facility] pharmacy rep who advised they have not heard from the patient. I have left a message asking the patient to follow up. They cannot ship the Stelara until they have confirmed insurance information with the patient. documented in this encounter Plan of Treatment Not on file documented as of this encounter Visit Diagnoses Not on filedocumented in this encounter Care Teams Chief Librarian Work With Blind Relationship Specialty Start Date End Date Tristan Soliman DO [address] [place] [address] PCP - General 05/09/10 11/26/16 documented as of this encounter
--- OUTSIDE RECORDS SUMMARY | 2024-02-04 01:27 | XMS_ITS | Encounter Summary ---
Author Organization [facility] [address] Care Team Providers Care Ore Dryer Name Role Phone JourdanTristan batres Primary Care Provider [phone] Encounter Details Date Type Department Care Team (Late st Contact Info) Description 12/04/2012 Telephone Dermatology at [facility] [address] [place] [address] Danielle Ortega MD [address] [facility] [place] [address] Social History Tobacco Use Types Packs/Day Years Used Date Smoking Tobacco: Former Sex and Gender Information Value Date Recorded Sex Assigned at Not on file Gender Identity Not on file Sexual Orientation Not on file documented as of this encounter Miscellaneous Notes * Telephone Encounter - Logan Powers - 12/05/2012 11:57 AM EDT [email or web address] # requesting pt call regarding her December Stelara. She is due December 23, I called to order the shipment and [facility] was not able to proceed as they are waiting to confirm with patient. * Telephone Encounter - César Lundy LPN - 12/04/2012 11:01 AM EDT Patient is in need of a Stelara refill. Message forwarded to Daneille White MD for review. documented in this encounter Plan of Treatment Not on file documented as of this encounter Visit Diagnoses Not on filedocumented in this encounter Care Teams Ore Dryer Relationship Specialty Start Date End Date Tristan Soliman DO [address] [place] [address] PCP - General 05/09/10 11/26/16 documented as of this encounter
--- OUTSIDE RECORDS SUMMARY | 2024-02-04 01:27 | XMS_ITS | Encounter Summary ---
Author Organization [facility] [place] [address] Care Team Providers Care Senior J2Ee Developer Name Role Phone Tristan Soliman DO Primary Care Provider Reason for Visit * Reason Comments Other Encounter Details Date Type Department Care Team (Late st Contact Info) Description 08/28/2012 Telephone Dermatology at [facility] [address] [place] [phone] Tammi Carey MD [facility] [address] [place] [address] Social History Tobacco Use Types Packs/Day Years Used Date Smoking Tobacco: Former Sex and Gender Information Value Date Recorded Sex Assigned at Not on file Gender Identity Not on file Sexual Orientation Not on file documented as of this encounter Miscellaneous Notes * Telephone Encounter - Tammi Carey MD - 08/28/2012 6:05 PM EDT Left msg w/ PCP's office to make sure most recent labwork was received and reviewed from June. Dr. Knapp office called and spoke with crayon sawyer, they have them and are aware of results. documented in this encounter Plan of Treatment Not on file documented as of this encounter Visit Diagnoses Not on filedocumented in this encounter Care Teams Senior J2Ee Developer Relationship Specialty Start Date End Date Tristan Soliman DO [address] [place] [address] PCP - General 05/09/10 11/26/16 documented as of this encounter
--- OUTSIDE RECORDS SUMMARY | 2024-02-04 01:27 | XMS_ITS | Encounter Summary ---
[place] [address] Care Team Providers Care Ropewalk Rope Maker Name Role Phone Jourdan, Tristan OLIVAREZ Primary Care Provider [phone] Reason for Visit * Reason Comments Psoriasis Encounter Details Date Type Department Care Team (Late st Contact Info) Description 12/12/2010 8:15 AM EDT Office Visit Dermatology [address] [place] [address] [address] [place], [place] [address] Andreas Richardson MD [address] [place] [address] Psoriasis (Primary Dx) Social History Tobacco Use Types Packs/Day Years Used Date Smoking Tobacco: Never Assessed Sex and Gender Information Value Date Recorded Sex Assigned at Not on file Gender Identity Not on file Sexual Orientation Not on file documented as of this encounter Progress Notes * Andreas Richardson MD - 12/12/2010 8:51 AM EDT Problem: Followup psoriasis here for Enbrel initiation. Jesika follows up and is ready to start Enbrel. She comes in today with a SureClick autoinjector. Physical examination again reveals a pleasant 39-year-old woman who has small plaques of psoriasis widely over the elbows, knees, arms, MCPs of her hands, scattered over her calves as well. Assessment & Plan: Psoriasis, ready to begin Enbrel. a. Discussed appropriate injection technique for Enbrel using the autoinjector. b. Recommended that she begin dermatologic dosing 50mg subcutaneously twice weekly for three months then return to clinic. Will then likely go to once weekly, and could consider tapering beyond that as needed. c. Patient will be leaving for [place] within the next week. d. RTC in three months. documented in this encounter Plan of Treatment Not on file documented as of this encounter Visit Diagnoses Diagnosis Psoriasis- Primary Other psoriasis documented in this encounter Care Teams Ropewalk Rope Maker Relationship Specialty Start Date End Date Tristan Soliman DO [address] [place] [address] PCP - General 05/09/10 11/26/16 documented as of this encounter
--- OUTSIDE RECORDS SUMMARY | 2024-02-04 01:27 | XMS_ITS | Encounter Summary ---
Author Organization Formerly [facility] [place] [address] Care Team Providers Care Centrifugal Separator Name Role Phone Tristan Soliman DO Primary Care Provider Reason for Visit * Reason Comments Psoriasis Encounter Details Date Type Department Care Team (Late st Contact Info) Description 06/30/2012 2:00 PM EST Follow-Up Dermatology at [facility] [address] [place] [address] Tammi Carey MD [facility] [address] [place] [address] Psoriasis (Primary Dx); Inflamed epidermoid cyst of skin Discharge Disposition: Home Social History Tobacco Use Types Packs/Day Years Used Date Smoking Tobacco: Former Sex and Gender Information Value Date Recorded Sex Assigned at Not on file Gender Identity Not on file Sexual Orientation Not on file documented as of this encounter Progress Notes * Bridgett Reyes MD - 06/30/2012 4:15 PM EST I directly supervised Dr. Carey during this office visit. Dr. Carey presented the history and physical exam to me. I then saw and examined this patient with Dr. Carey. We reviewed the history and pertinent details and I confirmed the physical findings. I agree with the details of the history and physical exam as documented in Dr. Tammi Carey's note. * Tammi Carey MD - 06/30/2012 2:05 PM EST DERMATOLOGY - ESTABLISHED PATIENT FOLLOW-UP Date of service: 06/30/2012 Jesika Sprague : 1970 Dermatology Resident Note: Tammi Carey MD Chief Problem: Chief Complaint Patient presents with ??? Psoriasis Ms. Jesika Sprague is a 41 y.o. female. This is an established patient, last seen by myself on 05/27/2012. HPI: Ms. Sprague presents for Stelara injection (#2). Patient states that she has seen drastic improvement with the Stelara. -Patient also has a boil on the back of her neck for the past 4 days that is very sore and would like to have looked at. Also with palpable bump above the boil. No illnesses, doing well. Skin History: Psoriasis 02/2012 Quantiferon gold negative, Started Stelare 05/2012 Medical History: Patient Active Problem List Diagnoses Code ??? Psoriasis 696.1 Medications: Current Outpatient Prescriptions on File Prior to Visit Medication Sig Dispense Refill ??? Calcipotriene (DOVONEX) 0.005 % Crea Apply topically 2 times daily. Apply twice daily on the weekends to affected areas as directed. 60 g 2 ??? SIMVASTATIN ORAL Take by mouth. ??? betamethasone dipropionate (DIPROLENE) 0.05 % cream [...] % ointment 1 Appl(s), Top, Twice daily ??? Etanercept (ENBREL SURECLICK) 50 mg/mL (0.98 mL) PnIj Inject 50 mg subcutaneously twice a week. ??? methoxsalen (OXSORALEN) 10 mg Cap Take 10 mg by mouth three times a week. 1/2 hour prior to light treatment ??? Calcipotriene (DOVONEX) 0.005 % Crea 1 Appl(s), Top, PRN Allergies: No Known Allergies Review of Systems: - General: Feels well. - Skin: As per HPI; no other skin concerns. Examination: - Constitutional: Patient was alert, well-appearing and in no noticeable distress. - Skin: An abbreviated skin exam was performed; this includes: a focused examination of the patient's knees, hands, and elbows. Specific skin findings: 1. Post inflammatory hyperpigmentation- back of hands; lower legs-resolved; minimal papules- elbows, knees 2. 2 cm inflamed nodule with punctum- nape of neck (A) 3. 1 cm- subcutaneous sub mass superior to A Diagnosis/Assessment/Treatment Plan: 1. Plaque Psoriasis-Second dose of Stelara -Much improved, minimal lesions on exam today. Patient encouraged. Continue with 1mo f/u dose of stelara today, then will go to q3mo dosing. -Stelara injection given today (45 mg/0.5 mL) (Patient supplied) (Lot #: [id number] Exp: 02/2013) -Labs ordered today: CBC, CMP -Patient encouraged to continue to moisturize daily. 2-3. Inflamed EIC with ? reactive lymph node -Kenalog 5 mg/mL injected intralesionally, total 0.4 mL. Discussed indication for this procedure and potential side effects including ulceration and skin atrophy. -patient will call if lesion suspected to be reactive node does not resolve over the next month or so or if the cyst becomes more bothersome. -may continue warm compresses RTC in 3 months for next injection. Patient will cancel this appointment if she gets ahold of Dr. Richardson's office before then. Instructed to call for questions/concerns. Note Initiated by: Laura Moses LPN Note Signed and Reviewed by: Tammi Carey MD Resident in Dermatology [facility] Patient seen and evaluated by supervising staff photolith operator: Bridgett Reyes MD Section of Dermatology [facility] documented in this encounter Plan of Treatment Not on file documented as of this encounter Procedures Procedure Name Priority Date/Time Associated Diagnosis Comments DIFFERENTIAL, AUTOMATED Routine 06/30/2012 2:58 PM EST CBC (WITH DIFF) Routine 06/30/2012 2:58 PM EST Psoriasis COMPREHENSIVE METABOLIC PANEL Routine 06/30/2012 2:58 PM EST Psoriasis documented in this encounter Results * (ABNORMAL) Differential, Automated (06/30/2012 2:58 PM EST) Neutrophil % 65.9 34.0 - 71.0 % CERNER MILLENNIUM Neutrophil Absolute 9.49(H) 1.50 - 6.30 x10(3)/mc L CERNER MILLENNIUM Lymph % 25.8 19.0 - 53.0 % CERNER MILLENNIUM Lymphocytes Abs 3.7(H) 1.0 - 3.6 x10(3)/mc L CERNER MILLENNIUM Monocyte % 6.4 4.0 - 13.0 % CERNER MILLENNIUM Monocyte Abs 0.9 0.2 - 1.0 x10(3)/mc L CERNER MILLENNIUM Eos % 1.3 0.0 - 7.0 % CERNER MILLENNIUM Eosinophils Abs 0.2 0.0 - 0.5 x10(3)/mc L CERNER MILLENNIUM Basophil % 0.3 0.0 - 2.0 % CERNER MILLENNIUM Baso Absolute 0.0 0.0 - 0.2 x10(3)/mc L CERNER MILLENNIUM Immature Gran % 0.30 0.00 - 0.66 % CERNER MILLENNIUM Comment: Immature granulocytes(IG's)percentage and absolute count will include metamyelocytes, myelocytes, and promyelocytes. Blood smears from CBCs yielding IG's will be scanned manually for concordance. If this scan disagrees with the automated IG or if promyelocytes are noted, a manual differential will be performed. Immature Gran Absolute 0.05 0.00 - 0.05 x10(3)/mc L CERNER MILLENNIUM Blood specimen (specimen) 06/30/2012 2:58 PM EST 06/30/2012 6:29 PM EST Bridgett Reyes MD HEMATOLOGY ORDERABLE S CERNER NETOENNIUM * Comprehensive metabolic panel (non-fasting) (06/30/2012 2:58 PM EST) Glucose 98 60 - 199 mg/dL CERNER MILLENNIUM Comment:Diabetes: >=200 mg/d L plus symptoms Blood Urea Nitrogen 12 8 - 18 mg/dL CERNER MILLENNIUM Creatinine 0.74 0.70 - 1.20 mg/dL CERNER MILLENNIUM Comment: Please note that the pediatric reference intervals supplied above were not validated at [facility]. Results from pediatric patients should be interpreted in conjunction to the patient's age, height and muscle mass. Sodium 141 135 - 145 mmol/L CERNER MILLENNIUM Potassium 3.8 3.5 - 5.0 mmol/L CERNER MILLENNIUM Comment: Please note: ??Patients with WBC >100,000 may have falsely elevated Potassium levels. ??For accurate Potassium quantification in these patients send serum separator tube (gold top) for subsequent determinations. ??Contact the Clinical Chemistry Laboratory if there are any questions. Chloride 106 98 - 107 mmol/L CERNER MILLENNIUM Carbon Dioxide 27 22 - 31 mmol/L CERNER MILLENNIUM Anion Gap 8 5 - 15 mmol/L CERNER MILLENNIUM Calcium 9.5 8.5 - 10.5 mg/dL CERNER MILLENNIUM Protein, Total 7.9 6.4 - 8.3 gm/dL CERNER MILLENNIUM Albumin 4.4 3.2 - 5.2 gm/dL CERNER MILLENNIUM Aspartate Aminotransferase 14 0 - 30 unit/L CERNER MILLENNIUM Alanine Aminotransferase 18 0 - 30 unit/L CERNER MILLENNIUM Alkaline Phosphatase 97 40 - 104 unit/L CERNER MILLENNIUM Bilirubin, Total 0.2 0.2 - 1.3 mg/dL CERNER MILLENNIUM Bilirubin, Direct 0.1 0.0 - 0.3 mg/dL CERNER MILLENNIUM Est Glomerular Filtration Rate >60 >=60 [facility] Comment: The National Kidney Disease Education [...] J Am Soc Nephrol;6:1963-72. Blood specimen (specimen) 06/30/2012 2:58 PM EST 06/30/2012 6:28 PM EST Narrative Resulting Agency Comment Spec In Lab Bridgett Reyes MD CHEMISTRY ORDERABLES Performing Organization Address City/[facility]/ZIP Co de Phone Number TELLY SHERMAN * (ABNORMAL) CBC (with Diff) (06/30/2012 2:58 PM EST) White Blood Cell 14.4(H) 4.0 - 10.0 x10(3)/mc L CERNER MILLENNIUM Red Blood Cell 4.84 3.93 - 5.22 x10(6)/mc L CERNER MILLENNIUM Hemoglobin 14.7 11.2 - 15.7 gm/dL CERNER MILLENNIUM Hematocrit 44.0 34.0 - 45.0 % CERNER MILLENNIUM Mean Cell Volume 90.9 79.0 - 94.0 fL CERNER MILLENNIUM Mean Cell Hemoglobin 30.4 26.6 - 32.2 pg CERNER MILLENNIUM Mean Cell Hemoglobin Concentration 33.4 32.0 - 36.5 gm/dL CERNER MILLENNIUM Platelet 224 145 - 370 x10(3)/mc L CERNER MILLENNIUM RDW Standard Deviation 45.2 35.0 - 46.0 fL CERNER MILLENNIUM RDW coefficient of variation 13.6 10.9 - 14.4 % CERNER MILLENNIUM Mean Platelet Volume 12.2(H) 9.0 - 12.0 fL CERNER MILLENNIUM Blood specimen (specimen) 06/30/2012 2:58 PM EST 06/30/2012 6:29 PM EST Narrative Resulting Agency Comment Spec In Lab Bridgett Reyes MD HEMATOLOGY ORDERABLE S Performing Organization Address City/[facility] Co de Phone Number TELLY SHERMAN documented in this encounter Visit Diagnoses Diagnosis Psoriasis- Primary Other psoriasis Inflamed epidermoid cyst of skin Sebaceous cyst documented in this encounter Care Teams Centrifugal Separator Relationship Specialty Start Date End Date Tristan Soliman DO [address] [place] [address] PCP - General 05/09/10 11/26/16 documented as of this encounter
--- OUTSIDE RECORDS SUMMARY | 2024-02-04 01:27 | XMS_ITS | Encounter Summary ---
[place] [address] Care Team Providers Care Manager Of Applications Development Name Role Phone Tristan Soliman DO Primary Care Provider [phone] Reason for Visit * Reason Comments Psoriasis Encounter Details Date Type Department Care Team (Late st Contact Info) Description 09/26/2010 5:00 PM EDT Office Visit Dermatology [address] [place] [address] [address] [place], [place] [address] Andreas Richardson MD [address] [place] [address] Psoriasis (Primary Dx) Social History Tobacco Use Types Packs/Day Years Used Date Smoking Tobacco: Never Assessed Sex and Gender Information Value Date Recorded Sex Assigned at Not on file Gender Identity Not on file Sexual Orientation Not on file documented as of this encounter Progress Notes * Andreas Richardson MD - 09/26/2010 5:25 PM EDT Problem: Followup psoriasis. Jesika follows up after last being seen on August 17, 2010. She states that after two weeks on the Cyclosporine she was unable to tolerate it. She felt a tremble all over and her feet hurt. She did not feel right and she stopped it. She did not get any labs. She did not note any improvement of her psoriasis during that two-week course. She is going to be heading down to [place] soon and would like to try to have her skin better before she leaves the area. She had asked me last visit about Stelara. Today I bring up the option of Enbrel. Physical examination reveals a pleasant 39-year-old woman who has small patches and plaques of psoriasis widely over the elbows, knees, arms, over the MCPs of her hands, scattered over her calves almost guttate size lesions there. Assessment & Plan: Psoriasis with slow worsening despite topicals and intralesional Kenalog injections. a. The patient had been previously well controlled with topicals and Kenalog injections, but I think we are going to have to move on to additional systemic options. b. Patient was unable to tolerate Cyclosporine, and was previously unable to tolerate Methotrexate. c. Discussed the option of Enbrel. She was given Enbrel information and the number to call to initiate the Prior Authorization process. d. Today she was given Kenalog injections to the visible sites on the legs from the knees down and on the dorsal hands. e. Prescription given for Clobetasol Ointment to apply twice daily to itchy sites of psoriasis on elbows and torso. f. Return to clinic for Enbrel injection instruction when she returns from [place] and once Prior Authorization has been completed. documented in this encounter Plan of Treatment Not on file documented as of this encounter Visit Diagnoses Diagnosis Psoriasis- Primary Other psoriasis documented in this encounter Care Teams Manager Of Applications Development Relationship Specialty Start Date End Date Tristan Soliman DO [address] [place] [address] PCP - General 05/09/10 11/26/16 documented as of this encounter
--- OUTSIDE RECORDS SUMMARY | 2024-02-04 01:27 | XMS_ITS | Encounter Summary ---
Author Organization [facility] [place] [address] Care Team Providers Care General Service Officer Name Role Phone Tristan Soliman DO Primary Care Provider Reason for Visit * Reason Comments Other Encounter Details Date Type Department Care Team (Late st Contact Info) Description 01/30/2013 Telephone Dermatology at [facility] [address] [place] [id number] Tristan Mcmanus MD [facility] [address] [place] [address] Social History Tobacco Use Types Packs/Day Years Used Date Smoking Tobacco: Former Sex and Gender Information Value Date Recorded Sex Assigned at Not on file Gender Identity Not on file Sexual Orientation Not on file documented as of this encounter Miscellaneous Notes * Telephone Encounter - Olivia Mchugh - 02/09/2013 4:38 PM EDT I called the patient today and left a message for her to call to schedule an appointment for her stelara. Olivia * Telephone Encounter - Olivia Mchugh - 01/30/2013 4:25 PM EDT Left a message for the pt to call to schedule an appointment-her stelara has arrived and is in the office. Olivia * Telephone Encounter - Olivia Mchugh - 01/30/2013 4:25 PM EDT Message copied by OLIVIA MCHUGH on SatJan 30, 2013 4:25 PM ------ Message from: NAIMA MERCADO Created: SatJan 29, 2013 12:36 PM Olivia -- I found this on [facility] in basket -- can you please f/u with this pt and Stelara? Looks like TK appt for injection was cancelled. Thanks so much! Naima ----- Message ----- From: Danielle White MD Sent: 09/30/2012 2:08 PM To: Logan Powers RTC 3mo for stelera injection. documented in this encounter Plan of Treatment Not on file documented as of this encounter Visit Diagnoses Not on filedocumented in this encounter Care Teams General Service Officer Relationship Specialty Start Date End Date Tristan Soliman DO [address] [place] [address] PCP - General 05/09/10 11/26/16 documented as of this encounter
--- OUTSIDE RECORDS SUMMARY | 2024-02-04 01:27 | XMS_ITS | Encounter Summary ---
[place] [address] Care Team Providers Care Assistant To The Ceo Name Role Phone JourdanTristan DO Primary Care Provider [phone] Reason for Visit * Reason Comments Follow-up Psoriasis Encounter Details Date Type Department Care Team (Late st Contact Info) Description 05/15/2016 4:30 PM EST Office Visit Dermatology at [place] [address] [place] [address] Andreas Richardson MD [address] [facility], [address] DER[address]OLOGY [place], [place] [id number] Psoriasis Social History Tobacco Use Types Packs/Day Years Used Date Smoking Tobacco: Former Sex and Gender Information Value Date Recorded Sex Assigned at Not on file Gender Identity Not on file Sexual Orientation Not on file documented as of this encounter Progress Notes * Andreas Richardson MD - 05/15/2016 4:30 PM EST PROBLEM: 1. Followup psoriasis. On Stelara February 2015 through October of 2015. DC'd due to untoward reaction. 2. Previously on Stelara May 2012 through February of 2103. Discontinued because of patient concern regarding immunosuppression/several colds in a row. 3. Status post course of Humira March 2011 through May of 2012. 4. Status post trial of Enbrel November through February of 2001. 5. Previously on topicals and with Kenalog injections. 6. Patient unable to tolerate cyclosporin and methotrexate. No benefit from a trial hydroxyurea. 7. Failed trial sulfasalazine September through November 2014. 8. Failed trial of Otezla December through February of 2015. Jesika follows up and after initially doing beautifully on the Stelara with total clearing experienced a reaction in October following a Stelara injection. She took a Stelara injection and a week or two later had shaking, weakness, feeling terrible. She was seen by Dr. Soliman and by a neurologist and clear etiology was not found, although the possibility of a viral meningitis was suggested. She decided at that point to stop the Stelara and has been on nothing ever since. Her psoriasis has recurred. Physical examination reveals plaque psoriasis over the dorsal hands, of her knees, her elbows, throughout the scalp, small patches on the abdomen and widely on her legs. They are not painful. They are not pruritic. She has also noticed some discomfort in her feet and is concerned about psoriatic arthritis. ASSESSMENT AND PLAN: 1. Continued psoriasis flaring, now with also some dorsal foot pain in the mornings. a. I am somewhat dubious that this was from the Stelara. b. Recommend that we try treatment with Cosentyx using the autoinjector pen 150 mg 2 injected weekly on weeks 0, 1, 2, and 3, then 2 once a month. c. We will obtain prior authorization. d. Recommended followup after she has been on the medication for 2 months. cc: Tristan Soliman DO documented in this encounter Plan of Treatment Not on file documented as of this encounter Visit Diagnoses Diagnosis Psoriasis Other psoriasis documented in this encounter Care Teams Assistant To The Ceo Relationship Specialty Start Date End Date Tristan Soliman DO [address] [place] [address] PCP - General 05/09/10 11/26/16 documented as of this encounter
--- OUTSIDE RECORDS SUMMARY | 2024-02-04 01:27 | XMS_ITS | Encounter Summary ---
[facility] Organization [facility] [place] [address] Care Team Providers Care Inserter Operator Name Role Phone Jourdan, Tristan OLIVAREZ Primary Care Provider [phone] Reason for Visit * Reason Comments Follow-up Encounter Details Date Type Department Care Team (Late st Contact Info) Description 09/30/2012 10:30 AM EDT Follow-[address] [place] [address] Danielle Ortega MD [address] [facility] [place] [address] Psoriasis (Primary Dx); High risk medication use Discharge Disposition: Home Social History Tobacco Use Types Packs/Day Years Used Date Smoking Tobacco: Former Sex and Gender Information Value Date Recorded Sex Assigned at Not on file Gender Identity Not on file Sexual Orientation Not on file documented as of this encounter Progress Notes * Danielle White MD - 09/30/2012 10:25 AM EDT DERMATOLOGY - ESTABLISHED PATIENT FOLLOW-UP Date of service: 09/30/2012 Jesika Sprague : 1970 Chief Problem: Chief Complaint Patient presents with ??? Follow-up Ms. Jesika Sprague is a 41 y.o. female. This is an established patient, last seen by Dr. Carey 06/30/12; new to myself. Present alone today. HPI: Ms. Sprague presents for her 3rd Stelara injection. Patient states that she was clear after her first 2 injections but she recently went to [place] 08/22-08/29 and has recently flared on her hands, elbows,and knees since then. She denies any adverse effects from the medication. Pt is doing well, no other concerns. Occupation: not employed Sun exposure history: wears sunscreen Skin History: Psoriasis Quantiferon Gold- Negative- 02/26 MedHx: Pacemaker/Defib/artificial Joints: No Anticoagulants: No Diabetes: No Smoker: No Medical History: Patient Active Problem List Diagnoses Code ??? Psoriasis 696.1 Medications: Current Outpatient Prescriptions Medication Sig Dispense Refill ??? Calcipotriene (DOVONEX) [...] Twice daily Allergies: No Known Allergies Family History: No family history of melanoma or non-melanoma skin cancer No family history of atopy, psoriasis or other skin disease Social/Occupational History: Per hpi Review of Systems: - General: Feels well. - Skin: As per HPI; no other skin concerns. Examination: - Constitutional: Patient was alert, well-appearing and in no noticeable distress. - Skin: An abbreviated skin exam was performed; this includes: bilateral hands and elbows and knees Specific skin findings: 1. Scattered well-demarcated, thick erythematous plaques with silvery scale distributed: Approximately 2% body surface area involved. Diagnosis/Assessment/Treatment Plan: 1. Chronic Plaque Psoriasis -responding very well to stelara and pt would like to continue with current tx. -It appears that she tends to have psoriasis breakouts when it gets near her injection time. So I recommended that she use topicals PRN when she noticed new plaques: clobetasol PRN -Pt would like to proceed with sterara injection today: -Stelara 45mg/0.5mL injection given today subcutaneously: left upper arm, administered by MD today (Patient supplied: Lot #: [id number] Exp: 04/2013) -Labs today: CBC, CMP -Rx refill: Clobetasol 0.05% ointment to be applied to affected areas PRN (30g, 2 refills) Patient verbally expressed understanding. As my standard of care, I asked the patient at the end ofthe visit if she had any further concerns or questions and the patient verbally stated that she hadno other concerns or questions. All questions were answered and all concerns were addressed. Follow-up: RTC in 3 months for injection #4. Instructed to call for questions or concerns. Note Initiated by: Laura Moses LPN Noted reviewed, changed, edited and signed by staff dielectric tester: Danielle White MD Section of Dermatology [facility] documented in this encounter Plan of Treatment Not on file documented as of this encounter Procedures Procedure Name Priority Date/Time Associated Diagnosis Comments DIFFERENTIAL, AUTOMATED Routine 09/30/2012 10:56 AM EDT CBC (WITH DIFF) Routine 09/30/2012 10:56 AM EDT Psoriasis COMPREHENSIVE METABOLIC PANEL Routine 09/30/2012 10:56 AM EDT Psoriasis documented in this encounter Results * (ABNORMAL) Differential, Automated (09/30/2012 10:56 AM EDT) Neutrophil % 64.9 34.0 - 71.0 % CERNER MILLENNIUM Neutrophil Absolute 7.33(H) 1.50 - 6.30 x10(3)/mc L CERNER MILLENNIUM Lymph % 28.0 19.0 - 53.0 % CERNER MILLENNIUM Lymphocytes Abs 3.2 1.0 - 3.6 x10(3)/mc L CERNER MILLENNIUM Monocyte % 5.1 4.0 - 13.0 % CERNER MILLENNIUM Monocyte Abs 0.6 0.2 - 1.0 x10(3)/mc L CERNER MILLENNIUM Eos % 1.2 0.0 - 7.0 % CERNER MILLENNIUM Eosinophils Abs 0.1 0.0 - 0.5 x10(3)/mc L CERNER MILLENNIUM Basophil % 0.5 0.0 - 2.0 % CERNER MILLENNIUM Baso Absolute 0.1 0.0 - 0.2 x10(3)/mc L CERNER MILLENNIUM Immature Gran % 0.30 0.00 - 0.66 % CERNER MILLENNIUM Comment: Immature granulocytes(IG's)percentage and absolute count will include metamyelocytes, myelocytes, and promyelocytes. Blood smears from CBCs yielding IG's will be scanned manually for concordance. If this scan disagrees with the automated IG or if promyelocytes are noted, a manual differential will be performed. Immature Gran Absolute 0.03 0.00 - 0.05 x10(3)/mc L CERNER MILLENNIUM Blood specimen (specimen) 09/30/2012 10:56 AM EDT 09/30/2012 12:44 PM EDT Danielle Ortega MD [facility]OLOG[facility] * (ABNORMAL) Comprehensive metabolic panel (non-fasting) (09/30/2012 10:56 AM EDT) Glucose 109 60 - 199 mg/dL [facility] Comment:Diabetes: >=200 mg/d L plus symptoms Blood Urea Nitrogen 10 8 - 18 mg/dL CERNER MILLENNIUM Creatinine 0.61(L) 0.70 - 1.20 mg/dL CERNER MILLENNIUM Comment: Please note that the pediatric reference intervals supplied above were not validated at [facility]. Results from pediatric patients should be interpreted in conjunction to the patient's age, height and muscle mass. Sodium 138 135 - 145 mmol/L CERNER MILLENNIUM Potassium 3.5 3.5 - 5.0 mmol/L CERNER MILLENNIUM Comment: [...] - 31 mmol/L CERNER MILLENNIUM Anion Gap 10 5 - 15 mmol/L CERNER MILLENNIUM Calcium 9.6 8.5 - 10.5 mg/dL CERNER MILLENNIUM Protein, Total 7.5 6.4 - 8.3 gm/dL CERNER MILLENNIUM Albumin 4.4 3.2 - 5.2 gm/dL CERNER MILLENNIUM Aspartate Aminotransferase 15 0 - 30 unit/L CERNER MILLENNIUM Alanine Aminotransferase 26 0 - 30 unit/L CERNER MILLENNIUM Alkaline Phosphatase 101 40 - 104 unit/L CERNER MILLENNIUM Bilirubin, Total 0.3 0.2 - 1.3 mg/dL CERNER MILLENNIUM Bilirubin, [...] J Am Soc Nephrol;6:1963-72. Blood specimen (specimen) 09/30/2012 10:56 AM EDT 09/30/2012 12:44 PM EDT Narrative Resulting Agency Comment Spec In Lab Danielle Ortega MD CHEMISTRY [facility]ABLES [facility] * (ABNORMAL) CBC (with Diff) (09/30/2012 10:56 AM EDT) White Blood Cell 11.3(H) 4.0 - 10.0 x10(3)/mc L CERNER MILLENNIUM Red Blood Cell 5.00 3.93 - 5.22 x10(6)/mc L CERNER MILLENNIUM Hemoglobin 15.4 11.2 - 15.7 gm/dL CERNER MILLENNIUM Hematocrit 45.5(H) 34.0 - 45.0 % CERNER MILLENNIUM Mean Cell Volume 91.0 79.0 - 94.0 fL CERNER MILLENNIUM Mean Cell Hemoglobin 30.8 26.6 - 32.2 pg CERNER MILLENNIUM Mean Cell Hemoglobin Concentration 33.8 32.0 - 36.5 gm/dL CERNER MILLENNIUM Platelet 253 145 - 370 x10(3)/mc L CERNER MILLENNIUM RDW Standard Deviation 44.9 35.0 - 46.0 fL CERNER MILLENNIUM RDW coefficient of variation 13.5 10.9 - 14.4 % CERNER MILLENNIUM Mean Platelet Volume 11.6 9.0 - 12.0 fL CEREMANUEL DUQUEENNIUM Blood specimen (specimen) 09/30/2012 10:56 AM EDT 09/30/2012 12:44 PM EDT Narrative Resulting Agency Comment Spec In Lab Danielle Ortega MD HEMATOLOGY ORDERABLE S [facility] documented in this encounter Visit Diagnoses Diagnosis Psoriasis- Primary Other psoriasis High risk medication use Encounter for long-term (current) use of other medications documented in this encounter Care Teams Inserter Operator Relationship Specialty Start Date End Date Tristan Soliman DO [address] [place] [address] PCP - General 05/09/10 11/26/16 documented as of this encounter
--- OUTSIDE RECORDS SUMMARY | 2024-02-04 01:27 | XMS_ITS | Encounter Summary ---
Author Organization [facility] [place] [address] Care Team Providers Care Shaper Hand Name Role Phone Tristan Soliman DO Primary Care Provider [phone] Encounter Details Date Type Department Care Team (Late st Contact Info) Description 12/22/2012 Telephone Dermatology at [facility] [address] [place] [id number] Danielle Ortega MD [address] [facility] [place] [address] Social History Tobacco Use Types Packs/Day Years Used Date Smoking Tobacco: Former Sex and Gender Information Value Date Recorded Sex Assigned at Not on file Gender Identity Not on file Sexual Orientation Not on file documented as of this encounter Miscellaneous Notes * Telephone Encounter - Logan Powers - 12/22/2012 8:31 AM EDT Pt returned my call from 12/05 regarding her Stelara, she was unaware of need to confirm with [facility]. I have a call into [facility] to determine what it is they need from pt. documented in this encounter Plan of Treatment Not on file documented as of this encounter Visit Diagnoses Not on filedocumented in this encounter Care Teams Shaper Hand Relationship Specialty Start Date End Date Tristan Soliman DO [address] [place] [address] PCP - General 05/09/10 11/26/16 documented as of this encounter
--- OUTSIDE RECORDS SUMMARY | 2024-02-04 01:27 | XMS_ITS | Encounter Summary ---
Author Organization [facility] [place] [address] Care Team Providers Care Spare Parts Clerk Name Role Phone Tristan Soliman DO Primary Care Provider Reason for Visit * Reason Comments Psoriasis Encounter Details Date Type Department Care Team (Late st Contact Info) Description 12/07/2014 4:45 PM EDT Office Visit Dermatology at [address] [id number] Andreas Richardson MD [address] [facility] [address] DERMATOLOGY [place], [place] [address] Psoriasis Discharge Disposition: Home Social History Tobacco Use Types Packs/Day Years Used Date Smoking Tobacco: Former Sex and Gender Information Value Date Recorded Sex Assigned at Not on file Gender Identity Not on file Sexual Orientation Not on file documented as of this encounter Progress Notes * Andreas Richardson MD - 12/07/2014 5:32 PM EDT Problems: 1. Followup psoriasis. 2. Status post a course of Stelara, May 2012 through February 2013, discontinued because of concerns regarding immunosuppression; the patient had good results. 3. Status post a course of Humira, March 2011 through May 2012. 4. Status post a trial of Enbrel, November through February 2001. 5. Previously on topicals and Kenalog injections. 6. The patient is unable to tolerate cyclosporin and methotrexate; no benefit from a trial of hydroxyurea. 7. Failed recent trial of Stelara, September through November 2014. Jesika follows up, and unfortunately her psoriasis continues to worsen despite a recent trial of sulfasalazine. She was able to get to two pills p.o. t.i.d. without GI side effects, but unfortunately also without improvement. Physical examination reveals plaque psoriasis on her knees, over the dorsal hands and elbows, and smaller papules over the forearms and arms. She has no real involvement, fortunately, on the torso. Assessment and Plan: Psoriasis, worsening despite trial of Stelara. a. The patient is willing to consider again taking Stelara, but given her concerns would prefer to try a slightly less aggressive approach. I would recommend a trial of Otezla (apremilast); we will attempt to get prior authorization. b. In the meantime, begin halobetasol cream, which she has not used previously. Apply b.i.d. to affected areas; 45 grams dispensed with three refills. c. I explained the apremilast dosing to the patient. We discussed starter dose plus maintenance dosing. d. Return to clinic two and a half months from now for a check on her progress. Note: The patient was diagnosed with pneumonia by Dr. Soliman on November 16, 2014. She completed a 10-day course of oral antibiotics on November 26, 2014. She was advised by him not to take any immunosuppressive medications until at least December 26, 2014; thus, we will wait before starting apremilast (Otezla) until December 26, 2014. COPY: Tristan Soliman D.O. documented in this encounter Plan of Treatment Not on file documented as of this encounter Visit Diagnoses Diagnosis Psoriasis Other psoriasis documented in this encounter Care Teams Spare Parts Clerk Relationship Specialty Start Date End Date Tristan Soliman DO [address] [place] [address] PCP - General 05/09/10 11/26/16 documented as of this encounter
--- OUTSIDE RECORDS SUMMARY | 2024-02-04 01:27 | XMS_ITS | Encounter Summary ---
Author Organization [facility] [place] [address] Care Team Providers Care Disintegrator Name Role Phone Tristan Soliman DO Primary Care Provider Encounter Details Date Type Department Care Team (Late st Contact Info) Description 03/12/2011 Abstract Dermatology [address] [place], [place] [address] Yareli Rocha RN Social History Tobacco Use Types Packs/Day Years Used Date Smoking Tobacco: Never Assessed Sex and Gender Information Value Date Recorded Sex Assigned at Not on file Gender Identity Not on file Sexual Orientation Not on file documented as of this encounter Plan of Treatment Not on file documented as of this encounter Visit Diagnoses Not on filedocumented in this encounter Care Teams Disintegrator Relationship Specialty Start Date End Date Tristan Soliman DO [address] [place] [address] PCP - General 05/09/10 11/26/16 documented as of this encounter
--- OUTSIDE RECORDS SUMMARY | 2024-02-04 01:27 | XMS_ITS | Encounter Summary ---
Author Organization [facility] [place] [address] Care Team Providers Care Training Consultant Name Role Phone JourdanTritsan batres Primary Care Provider [phone] Reason for Visit * Reason Comments Injections Encounter Details Date Type Department Care Team (Late st Contact Info) Description 05/27/2012 3:00 PM EST Follow-Up Dermatology at [facility] [address] [place] [address] Tammi Carey MD [facility] [address] [place] [address] Psoriasis (Primary Dx) Discharge Disposition: Home Social History Tobacco Use Types Packs/Day Years Used Date Smoking Tobacco: Former Sex and Gender Information Value Date Recorded Sex Assigned at Not on file Gender Identity Not on file Sexual Orientation Not on file documented as of this encounter Progress Notes * Lorena Guthrie MD - 06/03/2012 2:52 PM EST I was the supervising physician working with dermatology resident Dr. Tammi Carey in the dermatology clinic during this patient visit. The level of Resident supervision for this patient visit was indirect supervision with direct supervision immediately available. (definition: [facility] Policy Statement on Graduate Medical Education, Supervision of Graduate Medical Trainees) I was immediately available to Dr. Carey for questions and discussion regarding this visit. I have reviewed his encounternote details and level of service. * Tammi Carey MD - 05/27/2012 3:03 PM EST DERMATOLOGY - ESTABLISHED PATIENT FOLLOW-UP Date of service: 05/27/2012 Jesika Sprague : 1970 Dermatology Resident Note: Tammi Carey MD Chief Problem: Chief Complaint Patient presents with ??? Injections Ms. Jesika Sprague is a 41 y.o. female. This is an established patient, last seen by myself on 02/21/2012. HPI: Ms. Sprague presents for Stelara injection (#1). Patient reports her psoriasis is the same, no improvement. Does not need refills today. Labs done 02/21/2012, neg TB test. WBC was 11.4, pt states she had them redrawn with her PCP to ensure they were WNL. No new concerns, doing well, ready to start. Skin History: Psoriasis 02/2012 Quantiferon gold negative Medical History: Patient Active Problem List Diagnoses [...] abbreviated skin exam was performed; this includes: hands and arms. Specific skin findings: 1. Scattered well-demarcated, thick erythematous plaques with silvery scale distributed: on hands, elbows and knees. Diagnosis/Assessment/Treatment Plan: 1. Plaque Psoriasis-Starting Stelara -Patient ready to start medication, potential ADEs have been discussed. Continue Clobetasol during the week and Dovonex on weekends for 2-3 weeks THEN Dovonex during the week and Clobetasol on weekends as needed. Stelara injection given today 45 mg/0.5mL. Repeat in 4 weeks then [id number] after that. -Labs at next visit CBC, CMP. (pt w/ slight lab abnormalities previously, PCP aware and ok with them) Patient will keep her next Stelara appointment here on 06/30/12, then will transfer her care back toDr. [facility] in [facility]. RTC in 1 month for next injection. Instructed to call for questions/concerns. Tammi Carey MD Resident in Dermatology [facility] staff solar fabrication technician: Lorena Guthrie MD Section of Dermatology [facility] documented in this encounter Plan of Treatment Not on file documented as of this encounter Visit Diagnoses Diagnosis Psoriasis- Primary Other psoriasis documented in this encounter Administered Medications Inactive Administered Medications - up to 3 most recent administrations Medication Order MAR Action Action Date Dose Rate Site ustekinumab (STELARA) subcutaneous injection Syrg 45 mg 45 mg, Subcutaneous, ONCE, 1 dose, On Sat05/27/12 at 1600, Routine Given 05/27/2012 3:30 PM EST 45 mg Left Arm documented in this encounter Care Teams Training Consultant Relationship Specialty Start Date End Date Tristan Soliman DO [address] [place] [address] PCP - General 05/09/10 11/26/16 documented as of this encounter
--- OUTSIDE RECORDS SUMMARY | 2024-02-04 01:27 | XMS_ITS | Encounter Summary ---
Author Organization [facility] [place] [address] Care Team Providers Care Supervisor Core Drilling Name Role Phone Tristan Soliman DO Primary Care Provider Encounter Details Date Type Department Care Team (Late st Contact Info) Description 12/29/2012 Telephone Dermatology at [facility] [address] [place] [address] Danielle Ortega MD [address] [facility] [place] [address] Social History Tobacco Use Types Packs/Day Years Used Date Smoking Tobacco: Former Sex and Gender Information Value Date Recorded Sex Assigned at Not on file Gender Identity Not on file Sexual Orientation Not on file documented as of this encounter Miscellaneous Notes * Telephone Encounter - Logan Powers - 12/29/2012 12:40 PM EDT Hi there, Jesika called to provide her weight, approximately 205 lbs. Should you have any questions she can bereached at [phone]. Thanks, Case documented in this encounter Plan of Treatment Not on file documented as of this encounter Visit Diagnoses Not on filedocumented in this encounter Care Teams Supervisor Core Drilling Relationship Specialty Start Date End Date Tristan Soliman DO [address] [place] [address] PCP - General 05/09/10 11/26/16 documented as of this encounter
--- OUTSIDE RECORDS SUMMARY | 2024-02-04 01:27 | XMS_ITS | Encounter Summary ---
Author Organization [facility] [place] [address] Care Team Providers Care Director Of Career Services Name Role Phone JourdanTristan batres Primary Care Provider Reason for Visit * Reason Comments Psoriasis Encounter Details Date Type Department Care Team (Late st Contact Info) Description 01/26/2014 3:30 PM EDT Office Visit Dermatology at [place] [address] [facility] [place] [phone] Andreas Richardson MD [address] DERMATOLOGY [place], [place] [id number] Psoriasis (Primary Dx) Social History Tobacco Use Types Packs/Day Years Used Date Smoking Tobacco: Former Sex and Gender Information Value Date Recorded Sex Assigned at Not on file Gender Identity Not on file Sexual Orientation Not on file documented as of this encounter Patient Instructions * Patient Instructions* Bisi Salinas LPN - 01/26/2014 3:42 PM EDT Images from the original note were not included. [facility] Psoriasis: After Your Visit Your Care Instructions Psoriasis (say egd-VO-sf-jefferson) is a long-term skin problem that causes [...] still damp. This seals in moisture. Use sxlb-tvi-jswgdia products that your doctor suggests. These may [...] more? Visit our health information library at [email or web address] You can also view health information on [employer], your personal patient account. Log in or sign up today. Enter [id number] in the search box to learn more about Psoriasis: After Your Visit. ?? [id number] [employer]. Care instructions adapted under license by [facility]. This care instruction is for use with your licensed healthcare professional. If you have questions about a medical condition or this instruction, always ask your healthcare professional. [employer] disclaims any warranty or liability for your use of this information. Content Version: 9.9.853078; Last Revised: January 20, 2013 documented in this encounter Progress Notes * Andreas Richardson MD - 01/26/2014 4:04 PM EDT Problem: Follow up psoriasis. Jesika follows up after last seeing me in July of 2011. She continued on the Stelara until the winter and continued Stelara for a time, but then it was discontinued because of a series of colds that were difficult for her to fight off, and Dr. Soliman was concerned that the Stelara-induced immunosuppression was triggering this. However, her psoriasis has been flaring again since August and she wonders what can be done about this. The patient received her first Stelara injection on 05/27/2012. She continued this through the winter with her last dose having been somewhere around February 2013 she states. Physical examination reveals a pleasant 43-year-old woman who has no psoriasis on the chest or back but plaques on the elbows, knees, over the arms, forearms, and shins. Fortunately her face is also clear. The worst area is over the dorsal hands, over the MCPs, elbows, and knees. Assessment and Plan: Psoriasis. a. Patient has been through numerous topicals and has been using clobetasol and Dovonex creams without benefit since DC'ing the Stelara and since her flare in August. b. Patient has been through cyclosporine and methotrexate but could not tolerate these. c. Patient has been through Enbrel and Humira but saw no benefit with these. d. It would be an option to go back to Stelara, but the patient wonders if there are any other options. We discussed the option of sulfasalazine versus hydroxyurea. Would recommend that we begin hydroxyurea 500 mg one p.o. q.h.s., then one p.o. b.i.d. with a return visit in about a month. Also begin instead of the clobetasol cream, halobetasol cream for symptomatic and very visible areas on the dorsal hands, knees, and elbows b.i.d. Hold further use of clobetasol and Dovonex for now. Once improvement is noted, then would use halobetasol once a day in the morning, clobetasol once a day in the evenings. Return to clinic in another month for repeat check. COPY: Tristan Soliman D.O. documented in this encounter Plan of Treatment Not on file documented as of this encounter Visit Diagnoses Diagnosis Psoriasis- Primary Other psoriasis documented in this encounter Care Teams Director Of Career Services Relationship Specialty Start Date End Date Tristan Soliman DO [address] [place] [address] PCP - General 05/09/10 11/26/16 documented as of this encounter
--- OUTSIDE RECORDS SUMMARY | 2024-02-04 01:27 | XMS_ITS | Encounter Summary ---
Author Organization [facility] [place] [address] Care Team Providers Care Property Staff Accountant Name Role Phone Tristan Soliman DO Primary Care Provider [phone] Encounter Details Date Type Department Care Team (Late st Contact Info) Description 03/04/2013 Orders Only Dermatology at [address] [place] [address] Kell Young MD [facility] [address] Psoriasis (Primary Dx) Social History Tobacco Use [...] psoriasis documented in this encounter Care Teams Property Staff Accountant Relationship Specialty Start Date End Date Tristan Soliman DO [address] [place] [address] PCP - General 05/09/10 11/26/16 documented as of this encounter
--- OUTSIDE RECORDS SUMMARY | 2024-02-04 01:27 | XMS_ITS | Encounter Summary ---
Author Organization [facility] [place] [address] Care Team Providers Care Masonry Supervisor Name Role Phone Tristan Soliman DO Primary Care Provider [phone] Encounter Details Date Type Department Care Team (Late st Contact Info) Description 03/04/2013 Telephone Dermatology at [facility] [address] [place] [address] Kell Young MD [facility] [place] [address] Social History Tobacco Use Types Packs/Day Years Used Date Smoking Tobacco: Former Sex and Gender Information Value Date Recorded Sex Assigned at Not on file Gender Identity Not on file Sexual Orientation Not on file documented as of this encounter Miscellaneous Notes * Telephone Encounter - Heide Mchugh - 03/04/2013 3:17 PM EDT HARITHA PT Pt's insurance does not cover the generic form of Dovonex. Please resend the RX through as the nameof Dovonex. Thanks Heide documented in this encounter Plan of Treatment Not on file documented as of this encounter Visit Diagnoses Not on filedocumented in this encounter Care Teams Masonry Supervisor Relationship Specialty Start Date End Date Tristan Soliman DO [address] [place] [address] PCP - General 05/09/10 11/26/16 documented as of this encounter
--- OUTSIDE RECORDS SUMMARY | 2024-02-04 01:27 | XMS_ITS | Encounter Summary ---
Author Organization [facility] [place] [address] Care Team Providers Care Activities Officer Name Role Phone Tristan Soliman DO Primary Care Provider Encounter Details Date Type Department Care Team (Late st Contact Info) Description 03/06/2012 [place] [address] Tammi Carey MD [facility] [address] [place] [address] High risk medication use (Primary Dx) Social History Tobacco Use Types Packs/Day Years Used Date Smoking Tobacco: Former Sex and Gender Information Value Date Recorded Sex Assigned at Not on file Gender Identity Not on file Sexual Orientation Not on file documented as of this encounter Plan of Treatment Not on file documented as of this encounter Visit Diagnoses Diagnosis High risk medication use- Primary Encounter for long-term (current) use of other medications documented in this encounter Care Teams Activities Officer Relationship Specialty Start Date End Date Tristan Soliman DO [address] [place], [place] [address] PCP - General 05/09/10 11/26/16 documented as of this encounter
--- OUTSIDE RECORDS SUMMARY | 2024-02-04 01:27 | XMS_ITS | Encounter Summary ---
Author Organization [facility] [place] [address] Care Team Providers Care Automotive Airconditioning Mechanic Name Role Phone Tristan Soliman DO Primary Care Provider Encounter Details Date Type Department Care Team (Late st Contact Info) Description 06/22/2013 Telephone Dermatology at [facility] [address] [place] [address] Kell Young MD [facility] [place] [address] Social History Tobacco Use Types Packs/Day Years Used Date Smoking Tobacco: Former Sex and Gender Information Value Date Recorded Sex Assigned at Not on file Gender Identity Not on file Sexual Orientation Not on file documented as of this encounter Miscellaneous Notes * Telephone Encounter - Heide Mchugh - 06/22/2013 3:46 PM EST Left a message for the pt to call back - her stelara medication is here. Heide documented in this encounter Plan of Treatment Not on file documented as of this encounter Visit Diagnoses Not on filedocumented in this encounter Care Teams Automotive Airconditioning Mechanic Relationship Specialty Start Date End Date Tristan Soliman DO [address] [place], [place] [address] PCP - General 05/09/10 11/26/16 documented as of this encounter
--- OUTSIDE RECORDS SUMMARY | 2024-02-04 01:27 | XMS_ITS | Encounter Summary ---
Author Organization [facility] [place] [address] Care Team Providers Care Technology Sales Representative Name Role Phone Tristan Soliman DO Primary Care Provider Encounter Details Date Type Department Care Team (Late st Contact Info) Description 12/22/2012 Telephone Dermatology at [facility] [address] [place] [address] Danielle Ortega MD [address] [facility] [place] [address] Social History Tobacco Use Types Packs/Day Years Used Date Smoking Tobacco: Former Sex and Gender Information Value Date Recorded Sex Assigned at Not on file Gender Identity Not on file Sexual Orientation Not on file documented as of this encounter Miscellaneous Notes * Telephone Encounter - Logan Powers - 12/22/2012 11:04 AM EDT Patient called, [facility], her insurance has changed and therefore, they areworking on verifying coverage to determine if they can continue to supply drug. She will follow up once she hears from [facility]. documented in this encounter Plan of Treatment Not on file documented as of this encounter Visit Diagnoses Not on filedocumented in this encounter Care Teams Technology Sales Representative Relationship Specialty Start Date End Date Tristan Soliman DO [address] [place] [address] PCP - General 05/09/10 11/26/16 documented as of this encounter
--- OUTSIDE RECORDS SUMMARY | 2024-02-04 01:27 | XMS_ITS | Encounter Summary ---
Author [facility] [place] [address] Care Team Providers Care Automobile Salesman Name Role Phone JourdanTristan batres Primary Care Provider [phone] Reason for Visit * Reason Comments Psoriasis Follow-up Encounter Details Date Type Department Care Team (Late st Contact Info) Description 06/16/2015 3:30 PM EST Office Visit Dermatology at [place] [address] [facility] [place] [phone] Andreas Richardson MD [address] DERMATOLOGY [place], [place] [id number] Psoriasis Social History Tobacco Use Types Packs/Day Years Used Date Smoking Tobacco: Former Sex and Gender Information Value Date Recorded Sex Assigned at Not on file Gender Identity Not on file Sexual Orientation Not on file documented as of this encounter Patient Instructions * Patient Instructions* Ivett Mcghee LPN - 06/16/2015 3:45 PM EST Images from the original note were not included. [facility] Psoriasis: After Your Visit Your Care Instructions Psoriasis (say hdy-VL-yx-jefferson) is a long-term skin problem that causes [...] still damp. This seals in moisture. Use ygxq-unp-vijqajt products that your doctor suggests. These may [...] more? Visit our health information library at [email or web address] You can also view health information on [employer], your personal patient account. Log in or sign up today. Enter U759 in the search box to learn more about Psoriasis: After Your Visit. ?? [id number] [employer]. Care instructions adapted under license by [facility]. This care instruction is for use with your licensed healthcare professional. If you have questions about a medical condition or this instruction, always ask your healthcare professional. [employer] disclaims any warranty or liability for your use of this information. Content Version: 10.4.452826; Current as of: August 26, 2013 documented in this encounter Progress Notes * Andreas Richardson MD - 06/16/2015 3:51 PM EST Problem: 1. Followup psoriasis, back on Stelara since February 2015. 2. Status post course of Stelara May 2012 through February 2013, discontinued because of patient concern regarding immunosuppression/several colds in a row. 3. Status post course of Humira, March 2011 through May 2012. 4. Status post trial of Enbrel, November through February 2001. 5. Previously on topicals and with Kenalog injections. 6. Patient unable to tolerate cyclosporine and methotrexate, no benefit from a trial of hydroxyurea. 7. Failed trial of sulfasalazine, September through November 2014. 8. Failed trial of Otezla, December through February 2015. Jesika follows up and is doing beautifully. The Stelara has really cleared things for her. She has been well, and had no colds/infections. Physical examination reveals some minimal papules on her right knee, but her hands, her arms, forearms, scalp are all clear. She is very pleased and is having no side effects and has had no colds, no infections. Assessment and Plan: Psoriasis, controlled with Stelara. a. Continue Stelara 90 mg, giving one dose every three months. Today a prescription for Stelara will be faxed to her [employer] plan so that she can continue q.three month injections. b. Return to clinic in another six months for repeat check. COPY: Tristan Soliman D.O. documented in this encounter Plan of Treatment Not on file documented as of this encounter Visit Diagnoses Diagnosis Psoriasis Other psoriasis documented in this encounter Care Teams Automobile Salesman Relationship Specialty Start Date End Date Tristan Soliman DO [address] [place] [address] PCP - General 05/09/10 11/26/16 documented as of this encounter
--- OUTSIDE RECORDS SUMMARY | 2024-02-04 01:27 | XMS_ITS | Encounter Summary ---
[place] [address] Care Team Providers Care Proof Operator Name Role Phone JourdanTristan DO Primary Care Provider [phone] Reason for Visit * Reason Comments Psoriasis Encounter Details Date Type Department Care Team (Late st Contact Info) Description 08/01/2011 4:15 PM EST Office Visit Dermatology [address] [place] [address] [address] [place], [place] [id number] Andreas Richardson MD [address] [place] [address] Psoriasis (Primary Dx) Social History Tobacco Use Types Packs/Day Years Used Date Smoking Tobacco: Former Sex and Gender Information Value Date Recorded Sex Assigned at Not on file Gender Identity Not on file Sexual Orientation Not on file documented as of this encounter Progress Notes * Andreas Richardson MD - 08/01/2011 5:07 PM EST Problem: 1. Followup psoriasis, status post three months of Humira initiated 03/2011. 2. Status post Enbrel trial 11/2000-02/2001 without benefit. 3. Previously on topicals and Kenalog injections. 4. Patient unable to tolerate Cyclosporine and Methotrexate in the past. Jesika follows up and has been doing well. She has not been having any issues with Humira injection site reactions, cough, fever, chills or any new side effects. Her psoriasis has responded very nicely. Physical examination reveals that the psoriasis has cleared on her legs, mostly on the elbows and knees, but she does have some minimal involvement that is new over the last month or two over several of the MCPs of her hands. Assessment & Plan: Psoriasis responding nicely to Humira. a. Continue Humira 40mg autoinjector pen inject one subcutaneously q. o. week. b. Refills to [facility] were sent in on 06/03 for a six-month supply. c. Continue for another six months then return to clinic here for repeat check. d. Patient congratulated on her wonderful response. e. For mild involvement on hands prescription given for Betamethasone Dipropionate Cream apply on a BID basis to affected areas, 45gm dispensed with two refills. Copy: Tristan Soliman DO documented in this encounter Plan of Treatment Not on file documented as of this encounter Visit Diagnoses Diagnosis Psoriasis- Primary Other psoriasis documented in this encounter Care Teams Proof Operator Relationship Specialty Start Date End Date Tristan Soliman DO [address] [place] [address] [address] [place] [address] PCP - General 05/09/10 11/26/16 documented as of this encounter
--- OUTSIDE RECORDS SUMMARY | 2024-02-04 01:27 | XMS_ITS | Encounter Summary ---
Author Organization [facility] [place] [address] Care Team Providers Care Bus Steward Name Role Phone JourdanTristan batres Primary Care Provider Reason for Visit * Reason Onset Date Comments Other 04/09/2012 fyi Encounter Details Date Type Department Care Team (Late st Contact Info) Description 04/09/2012 Telephone [place] [address] Tammi Carey MD [facility] DR CLAUDINE H[place] [address] Other (fyi) Social History Tobacco Use Types Packs/Day Years Used Date Smoking Tobacco: Former Sex and Gender Information Value Date Recorded Sex Assigned at Not on file Gender Identity Not on file Sexual Orientation Not on file documented as of this encounter Miscellaneous Notes * Telephone Encounter - Tammi Carey MD - 04/11/2012 8:21 AM EDT That should be fine, thanks. * Telephone Encounter - Domenica Webb - 04/09/2012 1:[address] Carey patient johan is to be delivered Apr 15. i have told patient we don't schedule until it is delivered. Maria Doloresperlita has appointment with you on Apr 21. She was wondering if she could see you that day if it was delivered on apr 21. Please advise. You are booked with 8 patients and only one nurse. Please advise if that would be ok or not? catracho documented in this encounter Plan of Treatment Not on file documented as of this encounter Visit Diagnoses Not on filedocumented in this encounter Care Teams Bus Steward Relationship Specialty Start Date End Date Tristan Soliman DO [address] [place] [address] PCP - General 05/09/10 11/26/16 documented as of this encounter
--- OUTSIDE RECORDS SUMMARY | 2024-02-04 01:27 | XMS_ITS | Encounter Summary ---
Author Organization [facility] [place] [address] Care Team Providers Care Row Boss Hoeing Name Role Phone Jourdan, Tristan OLIVAREZ Primary Care Provider Reason for Visit * Reason Onset Date Comments Other 09/22/2012 injection Encounter Details Date Type Department Care Team (Late st Contact Info) Description 09/22/2012 Telephone Dermatology at [facility] [address] [place] [address] Tammi Carey MD [facility] DR CLAUD[place] [address] Other (injection) Social History Tobacco Use Types Packs/Day Years Used Date Smoking Tobacco: Former Sex and Gender Information Value Date Recorded Sex Assigned at Not on file Gender Identity Not on file Sexual Orientation Not on file documented as of this encounter Miscellaneous Notes * Telephone Encounter - Domenica Webb - 09/22/2012 11:[address] Carey patient We have her medication here for her shot. i had called her last week for a cancellation but she didn't call back. She called back today. Do you need to do the injection or can i see if consult resident or whoever has time give her the shot? Please advise. catracho documented in this encounter Plan of Treatment Not on file documented as of this encounter Visit Diagnoses Not on filedocumented in this encounter Care Teams Row Boss Hoeing Relationship Specialty Start Date End Date Tristan Soliman DO [address] [place] [address] PCP - General 05/09/10 11/26/16 documented as of this encounter
--- OUTSIDE RECORDS SUMMARY | 2024-02-04 01:27 | XMS_ITS | Encounter Summary ---
Author Organization [facility] [place] [address] Care Team Providers Care Network Communications Engineer Name Role Phone Tristan Soliman DO Primary Care Provider Encounter Details Date Type Department Care Team (Late st Contact Info) Description 08/12/2013 Telephone Dermatology at [facility] [address] [place] [address] Tristan Mcmanus MD [facility] [address] [place]UD[place] [address] Social History Tobacco Use Types Packs/Day Years Used Date Smoking Tobacco: Former Sex and Gender Information Value Date Recorded Sex Assigned at Not on file Gender Identity Not on file Sexual Orientation Not on file documented as of this encounter Miscellaneous Notes * Telephone Encounter - Heide Mchugh - 08/13/2013 1:38 PM EST Laura, Since you and I have both been unable to reach the patient, I will mail her a letter to call us. Heide * Telephone Encounter - Laura Moses LPN - 08/13/2013 11:53 AM EST Heide, I tried to call the patient but I got a message saying her voicemail had not been set up yet. Due to the positive results we had seen with the medication I would assume she would want to continue hermedication... I guess the only thing we can do is keep trying to get ahold of her. Sorry I cannot be of more help. -Laura * Telephone Encounter - Heide Mchugh - 08/12/2013 10:11 AM EST ESE PT Left a message for the pt to call back. She did not schedule an appointment to have her injection around May 2013; she does have medication here in the office that expires November 2013. [facility] has sent correspondence that they have made several attempts to contact her and have been unable to speak with her. Not sure if she wants to continue her treatment? Heide documented in this encounter Plan of Treatment Not on file documented as of this encounter Visit Diagnoses Not on filedocumented in this encounter Care Teams Network Communications Engineer Relationship Specialty Start Date End Date Tristan Soliman DO [address] [place] [address] PCP - General 05/09/10 11/26/16 documented as of this encounter
--- NOTE | 2024-02-04 16:30 | DI.MAMMO_ITS ---
Exam(s) MAMMO SCREENING EXAM: MAMMO SCREENING CLINICAL HISTORY: screening TECHNIQUE: Mammograms were interpreted according to the usual protocol including computer analysis w [employer] CAD system, tomosynthesis and C-view imaging. COMPARISON: 2014 through 2022 FINDINGS: The breasts are composed of scattered fibroglandular densities, Breast Density category B. No suspicious masses or suspicious microcalcifications are seen. No skin thickening or abnormal axillary lymph nodes are seen. There has been no significant change from prior exams. IMPRESSION: BI-RADS Category 1, Negative mammogram Yearly screening mammography is recommended. Breast Density - Category B, scattered fibroglandular densities. A negative radiographic report should not delay biopsy if a dominant or clinically suspicious mass is present. Up to ten percent of cancers are not identified on mammography. A negative report may reinforce clinical impression. Adenosis and dense breasts may obscure an underlying neoplasm. False positive reports average 6 to 10%. Patient will receive a letter notifying them of these results.
== END 2024-02-04 01:41 ==
LOC: DI 01:21
PROVIDERS: PCP Family Medicine; Visit Provider Obstetrics & Gynecology
DX: Z12.31 Encounter for screening mammogram for malignant neoplasm of breast (principal)
CPT/HCPCS: 77063; 77067

== ENCOUNTER 2024-06-19 14:43 | Outpatient (CLI) | payer OTHER, SELFPAY ==
[2024-06-19 12:34] LABS: Hemoglobin A1C 7.8 % (<5.7)
[2024-06-19 12:43] LABS: ALT 37 U/L (14-59); AST 23 U/L (15-37); Albumin 4.1 g/dL (3.4-5.0); Alkaline Phosphatase 79 U/L (46-116); Anion Gap 10.4 mmol/L (3-11); BUN 16 mg/dL (7-18); Bilirubin, Total 0.35 mg/dL (0.2-1.0); CO2 24.6 mmol/L (21.0-32.0); CREATININE 0.7 mg/dL (0.55-1.02); Calcium 9.1 mg/dL (8.5-10.1); Calculated LDL 46 mg/dL (<100); Chloride 104 mmol/L (98-107); Cholesterol 149 mg/dL (<200); Estimated GFR 104.65 (mL/min/1.73m2); Glucose 140 mg/dL (74-106); HDL Cholesterol 34 mg/dL (40-60); Potassium 3.8 mmol/L (3.5-5.1); Sodium 139 mmol/L (136-145); Total Protein 7.9 g/dL (6.4-8.2); Triglyceride 348 mg/dL (<150)
--- OUTSIDE RECORDS SUMMARY | 2024-06-19 14:47 | XMS_ITS | Encounter Summary ---
Author Organization [facility] [place] [address] Care Team Providers Care Seed Potato Arranger Name Role Phone Leonor Hendricks MD Primary Care Provider [phone] Reason for Visit * Reason Comments Medication Refill Encounter Details Date Type Department Care Team (Late st Contact Info) Description 03/10/2024 Refill [place] [address] Blade Martinez MD [facility] [place] [address] Type 2 diabetes mellitus with hyperglycemia, with [...] encounter Miscellaneous Notes * Telephone Encounter - Elva Singleton RN - 03/12/2024 8:33 AM EDT Last visit 12/13/2023 Next visit TBD Per last OV 1. Type 2 DM --To continue Tresiba [...] their CGM regimen and diabetes treatment plan. documented in this encounter Plan of Treatment Upcoming Encounters Date Type Department Care Team (Late st Contact Info) Description 06/23/2024 11:30 AM EST TH Visit (TeleHealth) [place] [address] Blade Martinez MD [facility] [place] [address] 05/10/2025 4:30 PM EST Office Visit Dermatology at [address] [place] [address] Andreas Richardson MD [address] [place] [address] RD, [place] [address] documented as of this encounter Visit Diagnoses Diagnosis Type 2 diabetes mellitus with hyperglycemia, with long-term current use of insulin Type 2 diabetes mellitus with hyperglycemia, with long-term current use of insulin Misha's thyroiditis Chronic lymphocytic thyroiditis Vitamin D deficiency Unspecified vitamin D deficiency Hypertriglyceridemia Pure hyperglyceridemia documented in this encounter Care Teams Seed Potato Arranger Relationship Specialty Start Date End Date Leonor Hendricks MD [address] [place] [address] PCP - General Family Medicine 11/27/16 documented as of this encounter
--- OUTSIDE RECORDS SUMMARY | 2024-06-19 14:47 | XMS_ITS | Encounter Summary ---
Author Organization [facility] Address [address] [place] [address] Care Team Providers Care Buckle Sorter Name Role Phone Leonor Hendricks MD Primary Care Provider [phone] Toni Aguero MD Unavailable Encounter Details Date Type Department Care Team (Late st Contact Info) Description 05/23/2021 Lab Requisition [facility] Pathology & Laboratory Medicine - [address] [address] Elva Suárez, [address] [place] [phone] Encounter for other general examination Social History Tobacco Use Types Packs/Day Years Used Date Smoking Tobacco: Never Assessed Comments Unknown Sex and Gender Information Value Date Recorded Sex Assigned at Not on file Legal Sex Female 18:21 EST Gender Identity Not on file Sexual Orientation Not on file documented as of this encounter Plan of Treatment Scheduled Orders Name Type Priority Associated Diagnoses Orde r Schedule PAP TEST Pathology Today Encounter for other general examination Ordered: 05/23/2021 documented as of this encounter Visit Diagnoses Diagnosis Encounter for other general examination documented in this encounter Care Teams Buckle Sorter Relationship Specialty Start Date End Date Leonor Hendricks MD [address] [place] [address] PCP - General 06/30/20 Toni Aguero MD [address] [place] [address] 09/27/17 documented as of this encounter
--- OUTSIDE RECORDS SUMMARY | 2024-06-19 14:47 | XMS_ITS | Clinical Summary ---
Author Organization [facility] Address [address] [place] [address] Care Team Providers Care Set Up Mechanic Automatic Line Name Role Phone Leonor Hendricks MD Primary Care Provider [phone] Toni Aguero MD Unavailable Social History Tobacco [...] - 19+ 3-dose series) 12/24 COVID-19 Vaccine ( season) 2024 Insurance [employer] Care Teams Set Up Mechanic Automatic Line Relationship Specialty Start Date End Date Leonor Hendricks MD [address] [place] [address] PCP - General 06/30/20 Toni Aguero MD [address] [place] [address] 09/27/17
--- OUTSIDE RECORDS SUMMARY | 2024-06-19 14:47 | XMS_ITS | Encounter Summary ---
Author Organization [facility] Address [address] [place] [address] Care Team Providers Care Manager Harbor Name Role Phone Leonor Hendricks MD Primary Care Provider [phone] Toni Aguero MD Unavailable Encounter Details Date Type Department Care Team (Late st Contact Info) Description 10/06/2020 Lab Requisition [facility] Pathology & Laboratory Medicine - [facility] [address] [place] [address] Outr Resulting Lab, Provider Social History Tobacco [...] documented as of this encounter Care Teams Manager Harbor Relationship Specialty Start Date End Date Leonor Hendricks MD [address] [place] [phone] PCP - General 06/30/20 Toni Aguero MD [address] [place] [address] 09/27/17 documented as of this encounter
--- OUTSIDE RECORDS SUMMARY | 2024-06-19 14:47 | XMS_ITS | Referral Summary ---
Author Organization [facility] Address [address] [place] [address] Care Team Providers Care Analysis Internship Name Role Phone Leonor Hendricks MD Primary Care Provider [phone] Toni Aguero MD Unavailable Social History Tobacco Use Types Packs/Day Years Used Date Smoking Tobacco: Never Assessed Comments Unknown Sex and Gender Information Value Date Recorded Sex Assigned at Not on file Legal Sex Female 18:21 EST Gender Identity Not on file Sexual Orientation Not on file Plan of Treatment Not on file Insurance [employer] Care Teams Analysis Internship Relationship Specialty Start Date End Date Leonor Hendricks MD [address] [place] [address] PCP - General 06/30/20 Toni Aguero MD [address] [place] [address] 09/27/17
--- OUTSIDE RECORDS SUMMARY | 2024-06-19 14:47 | XMS_ITS | Encounter Summary ---
Author Organization [facility] Address [address] [place] [address] Care Team Providers Care Configuration Management Architect Name Role Phone Unavailable Primary Care Provider Unavailabl e Encounter Details Date Type Department Care Team (Late st Contact Info) Description 02/28/2005 Results Only [facility] - Maple conversion [address] [place] [address] Elva Suárez, [address] [phone] Social History Tobacco Use Types Packs/Day Years [...] ? RUSLAN CHAIREZ ? Accession #: ? [id number] : ? 1970 (Age: 34) ??F ?Collect Date: ? 02/28/2005 Location: ? [facility] ? Receive Date: ? 03/01/2005 Provider: ?ELVA SUÁREZ GAS METER INSTALLER HELPER Copy to: ? Specimen/Source: ?ThinPrep Pap Test, Cervix/Endocervix, processed on WiFi Rail ThinPrep Imaging System, with manual evaluation Last Menstrual Period: ? 02/21/05 Other: ? HPVA - HPV testing requested if ASC-US on the current ThinPrep Pap test. ? SPECIMEN ADEQUACY ? Satisfactory for Evaluation - transformation zone component present GENERAL CATEGORIZATION ? Negative for Intraepithelial Lesion or Malignancy ? Document reviewed and electronically signed by: ? YAJAIRA Arita(ASCP) ? Report Date: ??03/08/2005 12:06 End of Report [facility] 02/28/2005 03/01/2005 us Elva Suárez GAS METER INSTALLER HELPER PATHOLOGY ORDERABLES Final R esult [facility] [address] [place] [address] documented in this encounter Visit Diagnoses Not on filedocumented in this encounter
--- OUTSIDE RECORDS SUMMARY | 2024-06-19 14:47 | XMS_ITS | Encounter Summary ---
Author Organization [facility] Address [address] [place] [address] Care Team Providers Care Elevator Tender Name Role Phone Leonor Hendricks MD Primary Care Provider [phone] Toni Aguero MD Unavailable Encounter Details Date Type Department Care Team (Late st Contact Info) Description 10/06/2020 Lab Requisition [facility] Pathology & Laboratory Medicine - [facility] [address] [place], [place] [id number] Outr Resulting Lab, Provider Social History Tobacco [...] 2.8 - 5.3 pg/mL 10/06/2020 16:59 EDT [facility] Comment:Turbid sample identi fied, interpret with caution as turbidity may affect result. Blood VENOUS BLOOD / Unknown 10/05/2020 14:20 EDT 10/06/2020 16:26 EDT us Provider Outr Resulting Lab CHEMISTRY & BLOOD GA S ORDERABLES Final Result [facility] [address] [place] [address] documented in this encounter Visit Diagnoses Not on filedocumented in this encounter Additional Health Concerns Infection Onset Date Last Indicated Resolved Time COVID-19 02/16/2021 02/16/2021 03/18/2021 22:1 5 EDT documented as of this encounter Care Teams Elevator Tender Relationship Specialty Start Date End Date Leonor Hendricks MD [address] [place] [address] PCP - General 06/30/20 Toni Aguero MD [address] [place] [address] 09/27/17 documented as of this encounter
--- OUTSIDE RECORDS SUMMARY | 2024-06-19 14:47 | XMS_ITS | Encounter Summary ---
Author Organization [facility] Address [address] [place] [address] Care Team Providers Care Client Success Director Name Role Phone Leonor Hendricks MD Primary Care Provider [phone] Toni Aguero MD Unavailable Encounter Details Date Type Department Care Team (Late st Contact Info) Description 06/30/2020 Lab Requisition [facility] Pathology & Laboratory Medicine - [address] [address] Fely Miram[address]es [address] [place] [address] [place] [address] Encounter for other general examination [...] - Scant benign endocervical tissue. 07/05/2020 15:26 [facility] Diagnosis Comment The paucity of intact endometrial fragments precludes accurate xmrhd-wg-iljsue ratio assessment. No cytologic atypia is seen. 07/05/2020 15:26 [facility] Attestation There was significant resident/fellow involvement in the diagnostic evaluation of this case. By the signature below, the attending physician certifies that they have personally conducted a gross and/or microscopic examination of the described specimens and rendered or confirmed the above diagnosis. 07/05/2020 15:26 [facility] at 1525 Clinical History Uterine bleeding 07/05/2020 15:26 [facility] Gross Description A. Received in [...] B1-B4. CORNEL MARTINEZ(ASCP) 07/01/2020 11:46 07/05/2020 15:26 [facility] Resident/[place] w: Harry Rivero DO 07/05/2020 15:26 [facility] Performing Lab [facility] 07/05/2020 15:26 [facility] Scanned Images 07/05/2020 15:26 [facility] Tissue ENTIRE ENDOMETRIUM / Unknown 06/30/2020 13:30 EST 06/30/2020 22:33 EST Tissue specimen (specimen) ENDOMETRIAL STRUCTURE / Unknown 06/30/2020 13:30 EST 06/30/2020 22:33 EST Fely Miramontes PATHOLOGY ORDERABLES Final Resul t [facility] [address] [place] [address] documented in this encounter Visit Diagnoses Diagnosis Encounter for other general examination documented in this encounter Additional Health Concerns Infection Onset Date Last Indicated Resolved Time COVID-19 02/16/2021 02/16/2021 03/18/2021 22:1 5 EDT documented as of this encounter Care Teams Client Success Director Relationship Specialty Start Date End Date Leonor Hendricks MD [address] [place] [phone] PCP - General 06/30/20 Toni Aguero MD [address] [place] [address] 09/27/17 documented as of this encounter
--- OUTSIDE RECORDS SUMMARY | 2024-06-19 14:47 | XMS_ITS | Encounter Summary ---
Author Organization [facility] [address] [address] Care Team Providers Care Machine Woodworking Sander Name Role Phone Leonor Hendricks MD Primary Care Provider [phone] Reason for Visit * Reason Comments Medication Refill Encounter Details Date Type Department Care Team (Late st Contact Info) Description 03/30/2024 Refill Dermatology at [address] [address] Andreas Richardson MD [address] [place] [address], [place] [address] Social History Tobacco Use Types Packs/Day Years [...] as of this encounter Plan of Treatment Upcoming Encounters Date Type Department Care Team (Late st Contact Info) Description 06/23/2024 11:30 AM EST TH Visit (TeleHealth) [place] [address] Blade Martinez MD [facility] [place] [address] 05/10/2025 4:30 PM EST Office Visit Dermatology at [address] [address] Andreas Richardson MD [address] [facility] [address], DAREK [place] [address] documented as of this encounter Visit Diagnoses Not on filedocumented in this encounter Care Teams Machine Woodworking Sander Relationship Specialty Start Date End Date Leonor Hendricks MD [address] [place] [address] PCP - General Family Medicine 11/27/16 documented as of this encounter
--- OUTSIDE RECORDS SUMMARY | 2024-06-19 14:47 | XMS_ITS | Encounter Summary ---
Author Organization [facility] [place] [address] Care Team Providers Care Car Driver Name Role Phone Leonor Hendricks MD Primary Care Provider [phone] Encounter Details Date Type Department Care Team (Late st Contact Info) Description 04/10/2024 Orders Only [place] [phone] Ruth Mendoza RN Social History Tobacco Use Types Packs/Day [...] as of this encounter Progress Notes * Ruth Mendoza RN - 04/10/2024 10:34 AM EDT Pended Rx for provider. documented in this encounter Plan of Treatment Upcoming Encounters Date Type Department Care Team (Late st Contact Info) Description 06/23/2024 11:30 AM EST TH Visit (TeleHealth) [place] [phone] Blade Martinez MD [facility] [place] [address] 05/10/2025 4:30 PM EST Office Visit Dermatology at Start [address] [place] [address] Andreas Richardson MD [address] [facility] [facility] [address], [place] [address] documented as of this encounter Visit Diagnoses Not on filedocumented in this encounter Care Teams Car Driver Relationship Specialty Start Date End Date Leonor Hendricks MD [address] [place] [address] PCP - General Family Medicine 11/27/16 documented as of this encounter
--- OUTSIDE RECORDS SUMMARY | 2024-06-19 14:47 | XMS_ITS | Encounter Summary ---
Author Organization [facility] [place] [address] Care Team Providers Care Onion Topper Name Role Phone Leonor Hendricks MD Primary Care Provider Reason for Visit * Reason Comments Medication Refill Encounter Details Date Type Department Care Team (Late Contact Info) Description 02/06/2024 Refill [place] [address] Blade Martinez MD [facility] [place] [place] [address] Social History Tobacco Use Types Packs/Day Years [...] AM EST TH Visit (TeleHealth) [place] [address] Blade Martinez MD [facility] [place] [place] [address] 05/10/2025 4:30 PM EST Office Visit Dermatology at [address] [address] Andreas Richardson MD [address], [place] [address] documented as of this encounter Visit Diagnoses Not on filedocumented in this encounter Care Teams Onion Topper Relationship Specialty Start Date End Date Leonor Hendricks MD [address] [place] [address] PCP - General Family Medicine 11/27/16 documented as of this encounter
--- OUTSIDE RECORDS SUMMARY | 2024-06-19 14:47 | XMS_ITS | Encounter Summary ---
Author Organization [facility] [place] [address] Care Team Providers Care Mass Spectroscopist Name Role Phone Leonor Hendricks MD Primary Care Provider [phone] Reason for Visit * Reason Onset Date Comments Medication Refill 04/10/2024 Encounter Details Date Type Department Care Team (Late st Contact Info) Description 04/10/2024 Refill [place] [address] Blade Martinez MD [facility] [place] [address] Type 2 diabetes mellitus with hyperglycemia, with [...] encounter Miscellaneous Notes * Telephone Encounter - Ruth Mendoza RN - 04/10/2024 10:37 AM EDT Pended Rx for provider to sign. * Telephone Encounter - Ruth Mendoza RN - 04/10/2024 10:37 AM EDT Copied from CRM #[id number]. Topic: Specialty Dept CRMs - Prior Auth Med >> Apr 10, 2024 9:01 AM Dulce Schrader wrote: Prior Auth Needed Diesel Lube Tech: Juan Relationship (if other than patient-full name): Sudeep with [employer] Medication, Dose, and Frequency (Copy and Paste from e-DH): tirzepatide (Mounjaro) 15 mg/0.5 mL PenInjecto Name of Prescription Carrier (if different than health coverage): [facility] Benefits or Prescription Carrier ID#: [id number] Prescription Carrier Phone #: [phone] BIN#: N/A PCN#: N/A * Telephone Encounter - Dulce Joseph - 04/10/2024 8:59 AM EDT NAME OF MEDICATION AND DOSE: tirzepatide (Mounjaro) 15 mg/0.5 mL Pen Injecto - dose and frequency as stated in medication list. PHARMACY NAME:[facility] PHONE: [phone] Would patient like script sent directly to pharmacy? (Yes or no) yes Would patient like to pharmacy picking technician paper script here at our office (Please put yes or no) no Would patient like paper script mailed to home address (Please put yes or no) no [facility] is asking if this can be rushed and for a 90 day supply Caller/Patient aware of 1-2 business day process. documented in this encounter Plan of Treatment Upcoming Encounters Date Type Department Care Team (Late st Contact Info) Description 06/23/2024 11:30 AM EST TH Visit (TeleHealth) [place] [address] Blade Martinez MD [facility] [place] [address] 05/10/2025 4:30 PM EST Office Visit Dermatology at [place] [address] [place] [address] Andreas Richardson MD [address] [facility] [facility] [address], [place] [address] documented as of this encounter Visit Diagnoses Diagnosis Type 2 diabetes mellitus with hyperglycemia, with long-term current use of insulin Type 2 diabetes mellitus with hyperglycemia, with long-term current use of insulin Misha's thyroiditis Chronic lymphocytic thyroiditis Vitamin D deficiency Unspecified vitamin D deficiency Hypertriglyceridemia Pure hyperglyceridemia documented in this encounter Care Teams Mass Spectroscopist Relationship Specialty Start Date End Date Leonor Hendricks MD [address] [place] [address] PCP - General Family Medicine 11/27/16 documented as of this encounter
--- OUTSIDE RECORDS SUMMARY | 2024-06-19 14:47 | XMS_ITS | Encounter Summary ---
Author Organization [facility] [place] [address] Care Team Providers Care Machine Setter Name Role Phone Leonor Hendricks MD Primary Care Provider [phone] Encounter Details Date Type Department Care Team (Latest Contact Info) Description 05/07/2024 Travel Social History Tobacco Use Types Packs/Day [...] AM EST TH Visit (TeleHealth) [place] [address] Blade Martinez MD [facility] [place] [address] 05/10/2025 4:30 PM EST Office Visit Dermatology at [place] [address] [facility] [place] [address] Andreas Richardson MD [address] [facility], [place] [address] documented as of this encounter Visit Diagnoses Not on filedocumented in this encounter Care Teams Machine Setter Relationship Specialty Start Date End Date Leonor Hendricks MD [address] [place] [address] PCP - General Family Medicine 11/27/16 documented as of this encounter
--- OUTSIDE RECORDS SUMMARY | 2024-06-19 14:47 | XMS_ITS | Encounter Summary ---
[facility] [place] [address] Care Team Providers Care Direct Care Worker Name Role Phone Leonor Hendricks MD Primary Care Provider [phone] Reason for Visit * Reason Comments Psoriasis Encounter Details Date Type Department Care Team (Late st Contact Info) Description 05/07/2024 4:30 PM EST Office Visit Dermatology at [address] [phone] Andreas Richardson MD [address] [facility], [place] [address] Psoriasis Social History Tobacco Use Types Packs/Day [...] Progress Notes * Andreas Richardson MD - 05/07/2024 4:30 PM EST Problem: 1. Follow-up psoriasis on Tremfya, initiated [...] up and is doing wonderfully. Her psoriasis continues to be clear! Usually in the summer months she has some involvement on her hands but not so with Tremfya which she is also toleratingwell without injection site reactions fevers chills or any untoward effects. This summer she had noflaring. Physical examination reveals a pleasant 53-year-old woman who has a benign examination without any active psoriasis on the hands arms legs knees and scalp is clear as well. Her skin is clear. Assessment and plan: Psoriasis, clear on Tremfya 1. Continue Tremfya prefilled syringe injections, 100 mg subcutaneously once every 8 weeks. Dispense 1 prefilled syringe for a 2-month supply with 6 refills. 2. We will renew this prescription utilizing the prefilled syringes 3. Return to clinic in another year for repeat check. cc: Leonor Hendricks MD documented in this encounter Plan of Treatment Upcoming Encounters Date Type Department Care Team (Late st Contact Info) Description 06/23/2024 11:30 AM EST TH Visit (TeleHealth) [place] [address] Blade Martinez MD [facility] [place] [address] 05/10/2025 4:30 PM EST Office Visit Dermatology at [place] [address] [place] [address] Andreas Richardson MD [address] [address], [place] [address] documented as of this encounter Visit Diagnoses Diagnosis Psoriasis Other psoriasis Type 2 diabetes mellitus with hyperglycemia, with long-term current use of insulin Misha's thyroiditis Chronic lymphocytic thyroiditis Vitamin D deficiency Unspecified vitamin D deficiency Hypertriglyceridemia Pure hyperglyceridemia documented in this encounter Care Teams Direct Care Worker Relationship Specialty Start Date End Date Leonor Hendricks MD [address] [place] [address] PCP - General Family Medicine 11/27/16 documented as of this encounter
--- OUTSIDE RECORDS SUMMARY | 2024-06-19 14:47 | XMS_ITS | Encounter Summary ---
Author Organization [facility] Address [address] [place] [address] Care Team Providers Care Soaking Room Operator Name Role Phone Unknown, Provider Primary Care Provider Unava ilable Encounter Details Date Type Department Care Team ([facility] st Contact Info) Description 09/27/2016 Results Only [facility] [phone] Toni Aguero MD [address] [facility] [address] [place] [address] Social History Tobacco Use Types Packs/Day Years [...] ? RUSLAN CHAIREZ ? Accession #: ? [id number] ? : ? 1970 (Age: 45) ??F ? Collect Date: ? 09/27/2016 ? Location: ? [facility] ? Receive Date: ? 09/28/2016 ? Provider: MARLENY AGEURO MD Copy to: NICK CANNON DO ? Final Pathologic Diagnosis: A. DUODENUM, [...] x 0.1 cm). Entirely submitted in C1. Mihrab Ali 09/28/2016 10:06 AM End of Report [facility] 09/27/2016 8:59 EDT 09/28/2016 8:59 EDT us Toni Aguero MD PATHOLOGY ORDERABLES Final Resul t [facility] [address] [place] [address] documented in this encounter Visit Diagnoses Not on filedocumented in this encounter Care Teams Soaking Room Operator Relationship Specialty Start Date End Date Unknown, Provider, PCP - General 04/21/15 09/30/16 documented as of this encounter
--- OUTSIDE RECORDS SUMMARY | 2024-06-19 14:47 | XMS_ITS | Encounter Summary ---
Author Organization [facility] Address [address] [place] [address] Care Team Providers Care Foreclosure Clerk Name Role Phone Unknown, Provider Primary Care Provider Unava ilable Encounter Details Date Type Department Care Team (Latest Contact Info) Description 09/27/2016 14:58 EDT - 09/27/2016 23:59 EDT Hospital Encounter [address] [address] Unknown, Provider, Discharge Disposition: Home or Self [...] Code Departure Means Destination Home or Self [place] documented in this encounter Plan of Treatment Not on file documented as of this encounter Visit Diagnoses Not on filedocumented in this encounter Care Teams Foreclosure Clerk Relationship Specialty Start Date End Date Unknown, ProviderMD PCP - General 04/21/15 09/30/16 documented as of this encounter
--- OUTSIDE RECORDS SUMMARY | 2024-06-19 14:47 | XMS_ITS | Encounter Summary ---
Author Organization [facility] Address [address] [place] [address] Care Team Providers Care Maintenance And Operations Supervisor Name Role Phone Unknown, Provider Primary Care Provider Leonor Malone MD Primary Care Provider Toni Aguero MD Unavailable Encounter Details Date Type Department Care Team (Late st Contact Info) Description 06/27/2020 Lab Requisition [facility] Pathology & Laboratory Medicine - [facility] [address] [place], [place] [address] Outr Resulting Lab, Provider Social History Tobacco [...] in accordance with CLIA regulations, College [employer] (CAP) guidelines (Sep 03, 2019), and FDA guidance (Aug 15, 2019). This test is only for use under the Food and Drug Administration's Emergency Use Authorization. Swab ENTIRE NASOPHARYNX / Unknown 06/27/2020 15:12 EST 06/27/2020 21:06 EST us Provider Outr Resulting Lab MICROBIOLOGY - GENER AL ORDERABLES Final Result [facility] [place], [place] * COVID-19 TESTING (06/27/2020 15:12 EST) Pathologist [facility] COVID-19 rt-PCR Result NEGATIVE Negative 06/28/2020 21:40 EST [facility] Comment: 2019-novel Coronavirus (2019-nCoV) not [...] in accordance with CLIA regulations, College [employer] (CAP) guidelines (Sep 03, 2019), and FDA guidance (Aug 15, 2019). This test is only for use under the Food and Drug Administration's Emergency Use Authorization. Performing Lab [facility] 06/28/2020 21:40 EST [facility] Swab 06/27/2020 15:1 2 EST 06/27/2020 21:06 EST us Provider Outr Resulting Lab MICROBIOLOGY - GENER AL ORDERABLES Final Result [facility] [address] [place], [place] [address] [place] [address] LABORATORY [place], [place] documented in this encounter Visit Diagnoses Not on filedocumented in this encounter Additional Health Concerns Infection Onset Date Last Indicated Resolved Time COVID-19 02/16/2021 02/16/2021 03/18/2021 22:1 5 EDT documented as of this encounter Care Teams Maintenance And Operations Supervisor Relationship Specialty Start Date End Date Unknown, Provider, PCP - General 09/27/17 06/29/20 Leonor Hendricks MD [address] [place] [phone] PCP - General 06/30/20 Toni Aguero MD [address] [place] [address] 09/27/17 documented as of this encounter
--- OUTSIDE RECORDS SUMMARY | 2024-06-19 14:47 | XMS_ITS | Encounter Summary ---
Author Organization Formerly [facility] [place] [address] Care Team Providers Care Produce Team Lead Name Role Phone Leonor Hendricks MD Primary Care Provider [phone] Reason for Visit * Reason Comments Medication Refill Encounter Details Date Type Department Care Team (Late st Contact Info) Description 05/19/2024 Ref[place] [address] [facility] [place] [address] Social History Tobacco Use Types Packs/Day Years [...] encounter Miscellaneous Notes * Telephone Encounter - Gloria Putnam CMA - 05/19/2024 4:17 PM EST Prescription Renewal Request Name: Jesika Ryan : 1970 Prescription(s) Requested: Requested Prescriptions Pending Prescriptions Disp Refills ergocalciferoL, vitamin D2, (vitamin D2) 50,000 unit capsule [Pharmacy Med Name: VITAMIN D2 1.25MG(50,000 UNIT)] 25 capsule 3 Sig: TAKE 2 CAPSULES BY MOUTH ONCE A WEEK Date of Encounter last in This Dept (If need an appointment send to secretaries to schedule): 12/13/2023 with Blade Martinez MD Next Encounter in This Dept: Visit date not found Date of Last Refill (for each medication): ergocalciferoL, vitamin D2, (vitamin D2) 50,000 unit capsule Take 2 capsules by mouth once a week. Dispense: 25 capsule, Refills: 3 ordered 05/27/2023 Status of request: Pended Allergies Allergen Reactions Stelara [Ustekinumab] Other (See Comments) [id number]-[id number] Gloria Putnam CMA 05/19/24 4:17 PM documented in this encounter Plan of Treatment Upcoming Encounters Date Type Department Care Team (Late st Contact Info) Description 06/23/2024 11:30 AM EST TH Visit (TeleHealth) [place] [address] [facility] [place] [address] 05/10/2025 4:30 PM EST Office Visit Dermatology at [address] [phone] Andreas Richardson MD [address] [place] [address], [place] [address] documented as of this encounter Visit Diagnoses Not on filedocumented in this encounter Care Teams Produce Team Lead Relationship Specialty Start Date End Date Leonor Hendricks MD [address] [place] [address] PCP - General Family Medicine 11/27/16 documented as of this encounter
--- OUTSIDE RECORDS SUMMARY | 2024-06-19 14:47 | XMS_ITS | Encounter Summary ---
Author Organization [facility] Address [address] [place] [address] Care Team Providers Care Ply Cutter Name Role Phone Unavailable Primary Care Provider Unavailabl e Encounter Details Date Type Department Care Team (Late st Contact Info) Description 09/25/2000 Results Only [facility] - Maple conversion [address] [place] [address] Antonieta Cedeno NP Social History Tobacco Use Types Packs/Day Years [...] ? RUSLAN CHAIREZ ? Accession #: ? [id number] : ? 1970 (Age: 29) ??F ?Collect Date: ? 09/25/2000 Location: ? [facility] ? Receive Date: ? 09/26/2000 Provider: ?ANTONIETA CEDENO DANCE CHOREOGRAPHER Copy to: ? Specimen/Source: ?ThinPrep Pap Test, Cervix/Endocervix Last Menstrual Period: ? 08/18/00 ? SPECIMEN ADEQUACY ? Satisfactory for evaluation. GENERAL CATEGORIZATION ? Within Normal Limits ? Document reviewed and electronically signed by: ? Yareli Reynolds, SCT(ASCP) ? Report Date: ??09/27/2000 13:30 End of Report [facility] 09/25/2000 09/26/2000 us Antonieta Cedeno NP PATHOLOGY ORDERABLES Final Re sult [facility] [address] [place] [address] documented in this encounter Visit Diagnoses Not on filedocumented in this encounter
--- OUTSIDE RECORDS SUMMARY | 2024-06-19 14:47 | XMS_ITS | Encounter Summary ---
Author Organization [facility] Address [address] [place] [address] Care Team Providers Care Scanner Operator Name Role Phone Unavailable Primary Care Provider Unavailabl e Encounter Details Date Type Department Care Team (Late st Contact Info) Description 03/19/2012 Results Only [facility] Laboratory Services - [facility] ([facility]) [address] [place], [place] [address] Tristan Soliman F, DO [address] [place] [address] Social History Tobacco Use Types Packs/Day Years [...] ? RUSLAN CHAIREZ ? Accession #: ? [id number] ? : ? 1970 (Age: 41) ??F [...] types 16,18,31,33,35, 39,45,51,52,56,58, 59,66, and 68 by regional director of admissions mediated amplification. Comments Document reviewed and electronically signed by: ? System Interface ? Report date: 03/28/2012 By the signature above, the attending physician certifies that he/she has personally conducted a gross and/or microscopic examination of the described specimens and rendered or confirmed the above diagnosis. End of Report [facility] 03/19/2012 03/20/2012 us Tristan Soliman DO PATHOLOGY ORDERABLES Final Result [facility] [address] [place] [address] documented in this encounter Visit Diagnoses Not on filedocumented in this encounter
--- OUTSIDE RECORDS SUMMARY | 2024-06-19 14:47 | XMS_ITS | Encounter Summary ---
Author Organization [facility] Address [address] [place] [address] Care Team Providers Care Summer School Coordinator Name Role Phone Unavailable Primary Care Provider Unavailabl e Encounter Details Date Type Department Care Team (Late st Contact Info) Description 04/01/2006 Results Only [facility] - Maple conversion [address] [place] [address] Antonieta Cedeno NP Social History Tobacco Use [...] ? RUSLAN CHAIREZ ? Accession #: ? [id number] : ? 1970 (Age: 35) ??F ?Collect Date: ? 04/01/2006 Location: ? [facility] ? Receive Date: ? 04/02/2006 Provider: ?ANTONIETA CEDENO CEMENT CONVEYOR OPERATOR Copy to: ? Specimen/Source: ?ThinPrep Pap Test, Cervix/Endocervix, processed on Medium ThinPrep Imaging System, with manual evaluation Last [...] End of Report [facility] 04/01/2006 04/02/2006 us Antonieta Cedeno NP PATHOLOGY ORDERABLES Final Re sult [facility] [address] [place] [address] documented in this encounter Visit Diagnoses Not on filedocumented in this encounter
--- OUTSIDE RECORDS SUMMARY | 2024-06-19 14:47 | XMS_ITS | Encounter Summary ---
Author Organization [facility] [place] [address] Care Team Providers Care Public Policy Coordinator Name Role Phone Leonor Hendricks MD Primary Care Provider [phone] Reason for Visit * Reason Onset Date Comments Medication Refill 03/10/2024 Encounter Details Date Type Department Care Team (Late st Contact Info) Description 03/10/2024 Ref[place] [address] Darnell Mosquera MD [facility] [place] [address] Social History Tobacco Use Types Packs/Day Years [...] AM EST TH Visit (TeleHealth) [place] [address] Blade Martinez MD [facility] [place] [address] 05/10/2025 4:30 PM EST Office Visit Dermatology at [address] [place] [address] Andreas Richardson MD [address] [facility], DAREK [place] [address] documented as of this encounter Visit Diagnoses Not on filedocumented in this encounter Care Teams Public Policy Coordinator Relationship Specialty Start Date End Date Leonor Hendricks MD [address] [place] [address] PCP - General Family Medicine 11/27/16 documented as of this encounter
--- OUTSIDE RECORDS SUMMARY | 2024-06-19 14:47 | XMS_ITS | Encounter Summary ---
Author Organization [facility] Address [address] [place] [address] Care Team Providers Care Chief Bank Examiner Name Role Phone Leonor Hendricks MD Primary Care Provider [phone] Toni Aguero MD Unavailable Encounter Details Date Type Department Care Team (Late st Contact Info) Description 05/24/2021 Lab Requisition [facility] Pathology & Laboratory Medicine - [address] [address] Elva Suárez, [address] [place] [address] Encounter for other general examination [...] Risk types, PCR Negative Negative 05/31/2021 8:42 [facility] Comment:No E6 or E7 mRNA is detected from HPV types 16,18,31,33,35,39,45,51,52,56,58,59,66, and 68 by plant machinist mediated amplification. Papanicolaou smear specimen (specimen) CERVIX UTERI STRUCTURE / Unknown 05/22/2021 10:15 EST 05/29/2021 15:17 EST Elva Suárez ON SITE WASTEWATER SYSTEMS TECHNICIAN MICROBIOLOGY - GENERAL ORDER AKBAR Final Result [facility] [address] [place] [address] * PAP TEST (05/22/2021 10:15 EST) Specimens A. Cervix and/or Endocervix , ThinPrep Imaging System with Manual Evaluation 05/31/2021 8:42 [facility] Specimen Adequacy Satisfactory for Evaluation - transformation zone component present 05/31/2021 8:42 [facility] General Categorization Negative for intraepithelial lesion or malignancy 05/31/2021 8:42 [facility] Attestation . 05/31/2021 8:42 [facility] at 0842 Clinical History See below 05/31/20 8:42 [facility] HPV The result for the Human Papillomavirus (HPV) Detection-High Risk Types is Negative. No E6 or E7 mRNA is detected from HPV types 16,18,31,33,35,39 ,45,51,52,56,58,5 9,66, and 68 by plant machinist mediated amplification.Chastity ting was performed on specimen [id number] and was resulted on 05/31/2021 0838 EST by CECILLE, LAB INSTRUMENT RESULTS IN 05/31/2021 8:42 [facility] Performing Lab [facility] 05/31/2021 8:42 [facility] Scanned Images 05/31/2021 8:42 [facility] Papanicolaou smear specimen (specimen) CERVIX UTERI STRUCTURE / Unknown 05/22/2021 10:15 EST 05/24/2021 9:28 EST us Elav Suárez ON SITE WASTEWATER SYSTEMS TECHNICIAN PATHOLOGY ORDERABLES Final R esult [facility] [address] [place] [address] documented in this encounter Visit Diagnoses Diagnosis Encounter for other general examination documented in this encounter Care Teams Chief Bank Examiner Relationship Specialty Start Date End Date Leonor Hendricks MD [address] [place] [phone] PCP - General 06/30/20 Toni Aguero MD [address] [place] [address] 09/27/17 documented as of this encounter
--- OUTSIDE RECORDS SUMMARY | 2024-06-19 14:47 | XMS_ITS | Encounter Summary ---
Author Organization Formerly [facility] [place] [address] Care Team Providers Care Manager Of Marketing Name Role Phone Leonor Hendricks MD Primary Care Provider [phone] Encounter Details Date Type Department Care Team (Late st Contact Info) Description 05/07/2024 Refill Dermatology at [address] [address] Baylee Mart, POST CLOSING SPECIALIST Social History Tobacco Use Types Packs/Day Years [...] AM EST TH Visit (TeleHealth) [place] [address] Blade Martinez MD [facility] [place] [address] 05/10/2025 4:30 PM EST Office Visit Dermatology at [address] [phone] Andreas Richardson MD [address] [place] [address], DAREK A DERMATOLOGY [place], [place] [address] documented as of this encounter Visit Diagnoses Not on filedocumented in this encounter Care Teams Manager Of Marketing Relationship Specialty Start Date End Date Leonor Hendricks MD [address] [place] [address] PCP - General Family Medicine 11/27/16 documented as of this encounter
--- OUTSIDE RECORDS SUMMARY | 2024-06-19 14:47 | XMS_ITS | Encounter Summary ---
Author Organization [facility] Address [address] [place] [address] Care Team Providers Care Utility Worker Forge Name Role Phone Unavailable Primary Care Provider Unavailabl e Encounter Details Date Type Department Care Team (Late st Contact Info) Description 04/12/2015 Results Only [facility] [phone] Debra Joe MD [address] [place] [address] [place] [address] Social History Tobacco Use Types Packs/Day Years [...] ? RUSLAN CHAIREZ ? Accession #: ? [id number] ? : ? 1970 (Age: 44) ??F [...] types 16,18,31,33,35, 39,45,51,52,56,58, 59,66, and 68 by home improvement installer mediated amplification. Comments Document reviewed and electronically signed by: ? System Interface ? Report date: 04/19/2015 By the signature above, the attending physician certifies that he/she has personally conducted a gross and/or microscopic examination of the described specimens and rendered or confirmed the above diagnosis. End of Report [facility] 04/12/2015 04/13/2015 us Debra Joe MD PATHOLOGY ORDERABLES Final Resu lt [facility] [address] [place] [address] documented in this encounter Visit Diagnoses Not on filedocumented in this encounter
--- OUTSIDE RECORDS SUMMARY | 2024-06-19 14:47 | XMS_ITS | Encounter Summary ---
Author Organization [facility] Address [address] [place] [address] Care Team Providers Care Teacher Of The Visually Impaired Name Role Phone Leonor Hendricks MD Primary Care Provider [phone] Toni Aguero MD Unavailable Encounter Details Date Type Department Care Team (Late st Contact Info) Description 06/02/2021 Lab Requisition [facility] Pathology & Laboratory Medicine - [address] [address] Outr Resulting Lab, Provider Social History Tobacco [...] Swab 06/02/2021 8:05 EST 06/02/2021 17:18 EST us Provider Outr Resulting Lab MICROBIOLOGY - GENER AL ORDERABLES Final Result [facility] [address] [place] [address] * COVID-19 TESTING (06/02/2021 8:05 EST) COVID-19 rt-PCR Result Negative Negative 06/03/2021 11:34 EST [facility] Comment: This test has [...] performed using the khari SARS-CoV-2 assay ([employer] on the Khari 6800 System Performing Lab Khari [address] [facility] 06/03/2021 11:34 EST [facility] Swab 06/02/2021 8:05 EST 06/02/2021 17:18 EST us Provider Outr Resulting Lab MICROBIOLOGY - GENER AL ORDERABLES Final Result [facility] [address] [place] [address] documented in this encounter Visit Diagnoses Not on filedocumented in this encounter Care Teams Teacher Of The Visually Impaired Relationship Specialty Start Date End Date Leonor Hendricks MD [address] [place] [phone] PCP - General 06/30/20 Toni Aguero MD [address] [place] [address] 09/27/17 documented as of this encounter
--- OUTSIDE RECORDS SUMMARY | 2024-06-19 14:47 | XMS_ITS | Encounter Summary ---
Author Organization [facility] [place] [address] Care Team Providers Care Medical Insurance Verifier Name Role Phone Leonor Hendricks MD Primary Care Provider [phone] Encounter Details Date Type Department Care Team (Late st Contact Info) Description 04/14/2024 Telephone [place] [address] Bridgett Ramirez Social History Tobacco Use Types Packs/Day Years [...] AM EST TH Visit (TeleHealth) [place] [address] Blade Martinez MD [facility] [place] [address] 05/10/2025 4:30 PM EST Office Visit Dermatology at [place] [address] [facility] [place] [phone] Andreas Richardson MD [address], [place] [address] documented as of this encounter Visit Diagnoses Not on filedocumented in this encounter Care Teams Medical Insurance Verifier Relationship Specialty Start Date End Date Leonor Hendricks MD [address] [place] [address] PCP - General Family Medicine 11/27/16 documented as of this encounter
--- OUTSIDE RECORDS SUMMARY | 2024-06-19 14:47 | XMS_ITS | Encounter Summary ---
Author Organization [facility] [place] [address] Care Team Providers Care Gelatin Plant Supervisor Name Role Phone Leonor Hendricks MD Primary Care Provider [phone] Reason for Visit * Reason Comments Medication Refill Encounter Details Date Type Department Care Team (Late st Contact Info) Description 02/23/2024 Ref[place] [address] Blade Martinez MD [facility] [place] [address] Social History Tobacco Use Types Packs/Day Years [...] encounter Miscellaneous Notes * Telephone Encounter - Toya Méndez MA - 02/24/2024 9:34 AM EDT Seeking clarity re: prescription from pt. Unsure if using Dexcom G6 or G7. documented in this encounter Plan of Treatment Upcoming Encounters Date Type Department Care Team (Late st Contact Info) Description 06/23/2024 11:30 AM EST TH Visit (TeleHealth) [place] [address] Blade Martinez MD [facility] [place] [address] 05/10/2025 4:30 PM EST Office Visit Dermatology at [place] [address] [place] [phone] Andreas Richardson MD [address] [facility] [address], MESSI [place] [address] documented as of this encounter Visit Diagnoses Not on filedocumented in this encounter Care Teams Gelatin Plant Supervisor Relationship Specialty Start Date End Date Leonor Hendricks MD [address] [place] [address] PCP - General Family Medicine 11/27/16 documented as of this encounter
--- OUTSIDE RECORDS SUMMARY | 2024-06-19 14:47 | XMS_ITS | Encounter Summary ---
Author Organization [facility] Address [address] [place] [address] Care Team Providers Care Inner Tube Tuber Machine Operator Name Role Phone Leonor Hendricks MD Primary Care Provider [phone] Toni Aguero MD Unavailable Encounter Details Date Type Department Care Team (Late st Contact Info) Description 02/16/2021 Lab Requisition [facility] Pathology & Laboratory Medicine - [address] [address] Outr Resulting Lab, Provider Social History Tobacco [...] Unknown 02/16/2021 11:30 EDT 02/16/2021 21:36 EDT us Provider Outr Resulting Lab MICROBIOLOGY - GENER AL ORDERABLES Final Result Performing Organization Address [facility] de Phone Number [facility] [address] [place] [address] * (ABNORMAL) COVID-19 TESTING (02/16/2021 11:30 EDT) COVID-19 rt-PCR Result Positive( AA) Negative 02/17/2021 17:10 EDT [facility] Comment: This test has not [...] performed using the khari SARS-CoV-2 assay ([employer] System[employer] on the Khari 6800 System Performing Lab Khari [address] [facility] 02/17/2021 17:10 EDT [facility] Swab 02/16/2021 11:3 0 EDT 02/16/2021 21:36 EDT us Provider Outr Resulting Lab MICROBIOLOGY - GENER AL ORDERABLES Final Result Performing Organization Address [facility] de Phone Number [facility] [address] [place] [address] documented in this encounter Visit Diagnoses Not on filedocumented in this encounter Additional Health Concerns Infection Onset Date Last Indicated Resolved Time COVID-19 02/16/2021 02/16/2021 03/18/2021 22:1 5 EDT documented as of this encounter Care Teams Inner Tube Tuber Machine Operator Relationship Specialty Start Date End Date Leonor Hendricks MD [address] [place] [address] PCP - General 06/30/20 Toni Aguero MD [address] [place] [address] 09/27/17 documented as of this encounter
--- OUTSIDE RECORDS SUMMARY | 2024-06-19 14:47 | XMS_ITS | Encounter Summary ---
Author Organization [facility] [place] [address] Care Team Providers Care Administrative Services Officer Name Role Phone Leonor Hendricks MD Primary Care Provider [phone] Reason for Visit * Reason Comments Medication Refill Encounter Details Date Type Department Care Team (Late st Contact Info) Description 04/13/2024 Refill [place] [address] Blade Martinez MD [facility] [place] [address] Social History Tobacco Use Types Packs/Day Years [...] encounter Miscellaneous Notes * Telephone Encounter - Jaz Syed, A - 04/14/2024 8:12 AM EDT Prescription Renewal Request Name: Jesika Ryan : 1970 Prescription(s) Requested: Requested Prescriptions Refused Prescriptions Disp Refills insulin lispro (humaLOG KwikPen) 100 unit/mL Insulin Pen 60 mL 3 Sig: INJECT 5 TO 15 UNITS SUBCUTANEOUSLY FOUR TIMES A DAY NEEDED (5 UNITS PLUS 2-10 UNITS FOR CORRECTION ON SLIDING SCALE) Refused By: JAZ SYED Reason for Refusal: Request already responded to by other means Duplicate request. humaLOG KwikPen 100 unit/mL Insulin Pen Authorized By: Blade Martinez MD INJECT 5 TO 15 UNITS SUBCUTANEOUSLY FOUR TIMES A DAY NEEDED (5 UNITS PLUS 2-10 UNITS FOR CORRECTION ON SLIDING SCALE) Dispense: 60 mL, Refills: 3 ordered 12/04/2022 Allergies Allergen Reactions Stelara [Ustekinumab] Other (See Comments) Rsmmrngyg-dbvgikn-vyohhfuxf HAILY SIMENTAL 04/14/24 8:18 AM documented in this encounter Plan of Treatment Upcoming Encounters Date Type Department Care Team (Late st Contact Info) Description 06/23/2024 11:30 AM EST TH Visit (TeleHealth) [place] [address] Blade Martinez MD [facility] [place] [address] 05/10/2025 4:30 PM EST Office Visit Dermatology at [place] [address] [place] [phone] Andreas Richardson MD [address] [facility], [place] [address] documented as of this encounter Visit Diagnoses Not on filedocumented in this encounter Care Teams Administrative Services Officer Relationship Specialty Start Date End Date Leonor Hendricks MD [address] [place] [address] PCP - General Family Medicine 11/27/16 documented as of this encounter
--- OUTSIDE RECORDS SUMMARY | 2024-06-19 14:47 | XMS_ITS | Encounter Summary ---
Author Organization [facility] Address [address] [place] [address] Care Team Providers Care Community Center Director Name Role Phone Toni Aguero MD Primary Care Provider [phone] Unknown, Provider Primary Care Provider Unava Toni Aguilar MD Unavailable Encounter Details Date Type Department Care Team (Late st Contact Info) Description 09/26/2017 Results Only [facility] [phone] Elva Suárez, [address] [place] [phone] Social History Tobacco Use Types Packs/Day Years [...] when reading/interpreti ng unformatted reports. Name: ? KYUNG, RUSLAN ? Accession #: ? [id number] ? : ? 1970 (Age: 46) ??F ?Collect Date: ? 09/26/2017 ? Location: ? [facility] ? Receive Date: ? 09/27/2017 ? Provider: ELVA SUÁREZ BOTTOMING MACHINE OPERATOR Copy to: ROOSEVELT ALEX MD ? Final [...] types 16,18,31,33,35, 39,45,51,52,56,58, 59,66, and 68 by bookstore clerk mediated amplification. Comments Document reviewed and electronically signed by: ? System Interface ? Report date: 10/04/2017 By the signature above, the attending physician certifies that he/she has personally conducted a gross and/or microscopic examination of the described specimens and rendered or confirmed the above diagnosis. End of Report [facility] 09/26/2017 09/27/2017 us Elva Suárez BOTTOMING MACHINE OPERATOR PATHOLOGY ORDERABLES Final R esult [facility] [address] [place] [address] documented in this encounter Visit Diagnoses Not on filedocumented in this encounter Care Teams Community Center Director Relationship Specialty Start Date End Date Toni Aguero MD PCP - General 10/01/16 09/26/17 Unknown, Provider, PCP - General 09/27/17 06/29/20 Toni Aguero MD 09/27/17 documented as of this encounter
--- OUTSIDE RECORDS SUMMARY | 2024-06-19 14:47 | XMS_ITS | Encounter Summary ---
[place] [address] Care Team Providers Care Sr. Operations Manager Name Role Phone Leonor Hendricks MD Primary Care Provider [phone] Reason for Visit * Reason Onset Date Comments Prior Authorization 04/13/2024 Encounter Details Date Type Department Care Team (Late st Contact Info) Description 04/13/2024 Telephone [place] [address] Reva Sun Prior Authorization Social History Tobacco [...] * Telephone Encounter - Reva Sun - 05/01/2024 9:24 AM EST Images from the original note were not included. Office note sent to [facility] [phone] * Telephone Encounter - Reva Sun - 04/28/2024 7:22 AM EST More information sent to insurance [phone] * Telephone Encounter - Reva Sun - 04/27/2024 8:13 AM EST Images from the original note were not included. PA Outcome: PA Denial [place] [address] DENIED: Mounjaro 15mg Case/Reference #: [id number] Additional Information from Insurance: * Telephone Encounter - Reva Sun - 04/16/2024 9:35 AM EDT Paper form received and filled out Faxed: [phone] * Telephone Encounter - Reva Sun - 04/13/2024 7:12 AM EDT Images from the original note were not included. * Telephone Encounter - Reva Sun - 04/13/2024 7:08 AM EDT Medication Prior Authorization Juan Medication name/dose/directions: Mounjaro 15MG/0.5ML - inject 0.5mL once weekly Rationale for request: Type II DM (E11.65) Health plan: Donita ([facility]) Graham: [id number] Authorizing motor vehicle representative name: Naima Sent to health plan on: 04/13/24 documented in this encounter Plan of Treatment Upcoming Encounters Date Type Department Care Team (Late st Contact Info) Description 06/23/2024 11:30 AM EST TH Visit (TeleHealth) [place] [address] [facility] [place] [address] 05/10/2025 4:30 PM EST Office Visit Dermatology at [place] [address] [place] [phone] Andreas Richardson MD [address], MESSI [place] [address] documented as of this encounter Visit Diagnoses Not on filedocumented in this encounter Care Teams Sr. Operations Manager Relationship Specialty Start Date End Date Leonor Hendricks MD [address] [place] [address] PCP - General Family Medicine 11/27/16 documented as of this encounter
--- OUTSIDE RECORDS SUMMARY | 2024-06-19 14:47 | XMS_ITS | Clinical Summary ---
Author Organization [facility] Address [facility] [place] [address] Care Team Providers Care Oil Tank Car Cleaner Name Role Phone Leonor Hendricks MD Primary Care Provider [phone] Allergies Active Allergy Reactions Criticality Noted Date Comments Ustekinumab Other (See Comments) 05/21/2016 Ipsldxwex-roeueik-gcjqzpod s Medications Medication Sig Dispensed Refills Start Date End Date Status escitalopram (LEXAPRO) 20 mg Tablet Take 20 mg by mouth daily. 3 01/16/2017 Active rosuvastatin (Crestor) 20 mg Tablet Take 20 mg by mouth every evening. 03/22/2022 Active fenofibrate (TRICOR) 145 mg Tablet Take 145 mg by mouth daily. 02/22/2022 Active One Touch Delica 33 gauge Misc 1 each by [facility]Non-Drug; Combo Route) route 4 times daily. 400 each 3 10/25/2022 Active OneTouch Verio test strips Strip 1 strip by Other route 4 times daily. Use as instructed 400 strip 3 10/25/2022 Active OneTouch Verio Flex meter [facility] Use to test blood sugar 4 times daily. DX: E11.65 1 each 12/04/2022 Active insulin needles, disposable, (Winnie Pen Needle) 32 gauge x 5/32 Needle Inject 1 each subcutaneously 5 times daily. 500 each 3 12/04/2022 Active tirzepatide 10 mg/0.5 mL Pen Injector Inject 10 mg subcutaneously once a week. 6 mL 3 02/05/2023 Active omega-3 acid ethyl esters (Lovaza) 1 gram capsule Take 2 capsules by mouth 2 times daily. 120 capsule 11 05/27/2023 Active Dexcom G6 Transmitter DeviceIndications :Uncontrolled type 2 diabetes mellitus with hyperglycemia, without long-term current use of insulin CHANGE EVERY 90 DAYS 1 each 3 12/13/2023 Active Blood-Glucose Sensor (Dexcom G7 Sensor) Device Q 10 days as instructed 9 each 3 12/13/2023 Active metFORMIN (Glucophage) 1,000 mg tablet TAKE ONE TABLET BY MOUTH TWICE A DAY WITH MEALS 180 tablet 3 02/06/2024 Active Jardiance 25 mg tabletIndications :Type 2 diabetes mellitus with hyperglycemia, with long-term current use of insulin TAKE 1 TABLET DAILY 90 tablet 1 03/12/2024 Active insulin lispro (humaLOG KwikPen) 100 unit/mL Insulin Pen INJECT 5 TO 15 UNITS SUBCUTANEOUSLY FOUR TIMES A DAY NEEDED (5 UNITS PLUS 2-10 UNITS FOR CORRECTION ON SLIDING SCALE) 60 mL 3 04/14/2024 Active Tremfya 100 mg/mL Auto-Injector Inject 1 mL subcutaneously every 8 weeks 1 mL 6 05/07/2024 Active ergocalciferoL, vitamin D2, (vitamin D2) 50,000 unit capsule TAKE 2 CAPSULES BY MOUTH ONCE A WEEK 25 capsule 3 05/19/2024 Active Active Problems Problem Noted Date Diagnosed Date Vitamin D deficiency 05/26/2021 MAGDALENE on CPAP 02/13/2021 Type 2 diabetes mellitus wit h complication, without long-term current use of insulin 11/14/2018 Psoriatic arthritis 08/25/2018 High risk medication use 08/25/2018 Misha's thyroiditis 2016 Anxiety 2016 Psoriasis 03/12/2011 Encounters Date Type Department Care Team Description 05/19/2024 [place] [address] Blade Martinez MD 05/07/2024 4:30 PM EST Office Visit Dermatology at [address] [phone] Andreas Richardson MD Psoriasis 05/07/2024 Refill Dermatology at [address] [address] Baylee Mart LPN 05/07/2024 Travel 04/14/2024 [place] [phone] Bridgett Ramirez 04/13/2024 [place] [address] Blade Martinez MD 04/13/2024 [place] [address] Blade Martinez MD 04/13/2024 [place] [address] Reva Sun Prior Authorization 04/10/2024 Orders [place] [address] Ruth Mendoza RN 04/10/2024 [place] [address] Blade Martinez MD Type 2 diabetes mellitus with hyperglycemia, with long-term current use of insulin 03/30/2024 Refill Dermatology at [address] [address] Andreas Richardson MD from Last 3 Months Immunizations Name Administration Dates Next Due Influenza PF, Split 03/18/2017 Influenza Trivalent, Preservative Free 1 Influenza Vaccine, Whole 05/16/2005 Pneumococcal 13-Valent Conjugate (Prevnar 13) Pneumococcal 23-Valent Polysaccharide (Pneumovax 23) 08/26/2018 Family History Medical History Relation Comments Eczema [...] 12/13/2023 9:06 AM EDT Plan of Treatment Upcoming Encounters Date Type Department Care Team (Late st Contact Info) Description 06/23/2024 11:30 AM EST TH Visit (TeleHealth) [place] [address] Blade Martinez MD [facility] [address] [place]OCRIN[place] [address] 05/10/2025 4:30 PM EST Office Visit Dermatology at [place] [address] [facility] [place] [phone] Andreas Richardson MD [address] [facility] [place] [address] Health Maintenance Due Date Last Done Comments CT Colonography 1972 Colonoscopy 1972 Colorectal Cancer Screening 1972 FIT DNA 1972 FIT 1972 Sigmoidoscopy (10 year) with FIT yearly 1972 Sigmoidoscopy 1972 DM Opthalmology Exam 1982 HIV screen 1990 Hepatitis C Screening 1990 Hepatitis B vaccine (0-59 yr s) (1) 12/25/1991 Tetanus/Diphtheria/Pertussis Vaccines (1 - Tdap) 12/25/1991 HPV test 2002 PAP Smear 2002 Breast Cancer Share Decision Needed 2012 Breast Cancer screening 2012 DM Hemoglobin A1c 04/10/2019 01/08/2019, , 07/24/2018, Additional history exists DM Creatinine yearly 01/09/2020 01/08/2019, 07/24/2018, 03/18/2017, Additional history exists DM Urine Microalbumin yearly 01/09/2020 01/08/2019 Zoster vaccine (1 of 2) 2022 Pneumococcal Vaccine: At-Ris k 5-64yrs (3 of 3 - PCV20 or PCV21) 08/27/2023 08/26/2018, 03/18/2017 Covid-19 Vaccine (1 - 2023-2 5 season) 2024 Influenza (Flu) vaccine (1 o f 1 - Influenza standard series) 02/16/2024 03/18/2017, 04/22/2011, 05/16/2005 Lipid Screening Discontinued 08/13/2016 Procedures Procedure Name [...] Recently Relevant to Health Maintenance Results * U Albumin/Cre Ratio (01/08/2019 11:29 AM EDT) Albumin / Creatinin Ratio, Urine 7 0 - 29 mcg/mg Cr [facility] Comment: Reference Ranges: <30 mcg/mg: [...] 2, 357? 362 Albumin, Urine 6.9 mg/L [facility] Creatinine, Urine 95 mg/dL MA RY [facility] Urine specimen (specimen) 01/08/2019 11:29 AM EDT 01/08/2019 11:37 AM EDT Narrative Resulting Agency Comment Spec In Lab Yareli Morales MD URINE ORDERABLES Performing Organization Address City/[facility] Co de Phone Number [facility] [place] [address] * (ABNORMAL) Creatinine (01/08/2019 11:25 AM EDT) Creatinine 0.68(L) 0.70 - 1.20 mg/dL [facility] Est Glomerular Filtration Rate 105 >=60 mL/min/1.7 3 m?? [facility] Comment: The eGFR was calculated using the CKD-EPI equation. As with all creatinine based estimates of kidney function, eGFR values calculated with the CKD-EPI equation are not accurate in patients with acute kidney failure, extremes of body mass or the acutely ill. [email or web address] eGFR 122 >=60 mL/min/1.7 3 m?? [facility] Comment: The eGFR was calculated using the CKD-EPI equation. As with all creatinine based estimates of kidney function, eGFR values calculated with the CKD-EPI equation are not accurate in patients with acute kidney failure, extremes of body mass or the acutely ill. [email or web address] Blood specimen (specimen) 01/08/2019 11:25 AM EDT 01/08/2019 11:29 AM EDT Narrative Resulting Agency Comment Spec In Lab Yareli Morales MD CHEMISTRY ORDERABLES Performing Organization Address City/[facility]/ZIP Co de Phone Number [facility] [place] [address] * (ABNORMAL) Hemoglobin A1c (01/08/2019 11:25 AM EDT) Hemoglobin A1c 7.5(H) 4.3 - 5.6 % [facility] Comment: Reference Range: 4.3 [...] Mellitus, Diabetes Care 2013; 36: Suppl. 1, S67-74 Estimated Average Glucose 169 mg/dL [facility] Comment: eAG equivalents for [...] into estimated average glucose values. ??Diabetes Care 2008:31(8):9952-4588. Blood specimen (specimen) 01/08/2019 11:25 AM EDT 01/08/2019 11:29 AM EDT Narrative Resulting Agency Comment Spec In Lab Yareli Morales MD CHEMISTRY ORDERABLES JET [facility] [address] [place] [address] * (ABNORMAL) Lipid Panel (08/13/2016) Cholesterol, Total 193(Exter nal Lab) mg/dL Triglyceride 180(EXTER NAL/ABN) mg/dL HDL Cholesterol 34(EXHIBIT CLEANER AL/ABN) mg/dL Glucose 108(EXTER NAL/ABN) Blood specimen (specimen) 08/13/2016 Yareli Morales MD CHEMISTRY ORDERABLES from Last 3 Months or Most Recently Relevant to Health Maintenance Advance Directives * Full Code (Latest Code Status on File) Date Activated Date Inactivated Comments 05/21/2016 5:24 PM 05/27/2016 3:43 PM Question Answer Comments Does patient have capacity to make decision: Yes Care Teams Oil Tank Car Cleaner Relationship Specialty Start Date End Date Leonor Hendricks MD [address] [place] [address] PCP - General Family Medicine 11/27/16
--- OUTSIDE RECORDS SUMMARY | 2024-06-19 14:47 | XMS_ITS | Encounter Summary ---
Author Organization [facility] [place] [address] Care Team Providers Care Datastage Developer Name Role Phone Leonor Hendricks MD Primary Care Provider [phone] Reason for Visit * Reason Onset Date Comments Medication Refill 04/13/2024 Encounter Details Date Type Department Care Team (Late st Contact Info) Description 04/13/2024 Refill [place] [address] Blade Martinez MD [facility] [place] [address] Social History Tobacco Use Types Packs/Day Years [...] encounter Miscellaneous Notes * Telephone Encounter - Nisa Syed, A - 04/14/2024 8:13 AM EDT Prescription Renewal Request Name: Jesika Ryan : 1970 Prescription(s) Requested: Requested Prescriptions Pending Prescriptions Disp Refills insulin lispro (humaLOG KwikPen) 100 unit/mL Insulin Pen 60 mL 3 Sig: INJECT 5 TO 15 UNITS SUBCUTANEOUSLY FOUR TIMES A DAY NEEDED (5 UNITS PLUS 2-10 UNITS FOR CORRECTION ON SLIDING SCALE) Date of Encounter last in This Dept (If need an appointment send to secretaries to schedule): 12/13/[address] Martinez (per visit note: Follow-up 6 months after next lab test (standing lab orders q 3 mo for A1c, lipids, and 25vitamin D) and TSH in 3 mo at next lab draw at [facility] as well. ) Next Encounter in This Dept: Visit date not found. Appointment requested. Date of Last Refill (for each medication): humaLOG KwikPen 100 unit/mL Insulin Pen Authorized By: Blade Martinez MD INJECT 5 TO 15 UNITS SUBCUTANEOUSLY FOUR TIMES A DAY NEEDED (5 UNITS PLUS 2-10 UNITS FOR CORRECTION ON SLIDING SCALE) Dispense: 60 mL, Refills: 3 ordered 12/04/2022 Note from 12/13/2023 visit: PLAN: 1. Type 2 DM --To continue [...] Metformin 1000mg BID --continue Jardiance 25mg daily Status of request: Pended Allergies Allergen Reactions Stelara [Ustekinumab] Other (See Comments) Yqhgpncfu-usinuui-wqmudetjz HAILY SIMENTAL 04/14/24 8:13 AM documented in this encounter Plan of Treatment Upcoming Encounters Date Type Department Care Team (Late st Contact Info) Description 06/23/2024 11:30 AM EST TH Visit (TeleHealth) [place] [address] Blade Martinez MD [facility] [place] [address] 05/10/2025 4:30 PM EST Office Visit Dermatology at [place] [address] [place] [phone] Andreas Richardson MD [address], [place] [address] documented as of this encounter Visit Diagnoses Not on filedocumented in this encounter Care Teams Datastage Developer Relationship Specialty Start Date End Date Leonor Hendricks MD [address] [place] [address] PCP - General Family Medicine 11/27/16 documented as of this encounter
--- OUTSIDE RECORDS SUMMARY | 2024-06-19 14:47 | XMS_ITS | Encounter Summary ---
Author Organization [facility] Address [address] [place] [address] Care Team Providers Care Network Control Supervisor Name Role Phone Unavailable Primary Care Provider Unavailabl e Encounter Details Date Type Department Care Team (Late st Contact Info) Description 12/15/2003 Results Only [facility] [address] [place] [address] Antonieta Cedeno NP Social History Tobacco Use [...] ? RUSLAN CHAIREZ ? Accession #: ? [id number] : ? 1970 (Age: 32) ??F ?Collect Date: ? 12/15/2003 Location: ? [facility] ? Receive Date: ? 12/16/2003 Provider: ?ANTONIETA CEDENO LEAK OPERATOR PARAFFIN PLANT Copy to: ? Specimen/Source: ?ThinPrep Pap Test, Cervix/Endocervix Last Menstrual Period: ? 11/29/03 ? SPECIMEN ADEQUACY ? Satisfactory for Evaluation - transformation zone component present GENERAL CATEGORIZATION ? Negative for Intraepithelial Lesion or Malignancy ? Document reviewed and electronically signed by: ? YAJAIRA Sierra(ASCP) ? Report Date: ??12/23/2003 09:10 End of Report [facility] 12/15/2003 12/16/2003 us Antonieta Cedeno NP PATHOLOGY ORDERABLES Final Re sult [facility] [address] [place] [address] documented in this encounter Visit Diagnoses Not on filedocumented in this encounter
--- OUTSIDE RECORDS SUMMARY | 2024-06-19 14:47 | XMS_ITS | Encounter Summary ---
Author Organization [facility] Address [address] [place] [address] Care Team Providers Care Star Route Mail Driver Name Role Phone Unavailable Primary Care Provider Unavailabl e Encounter Details Date Type Department Care Team (Late st Contact Info) Description 05/17/2009 Orders Only [facility] Services - [address] [phone] Antonieta Francisco, NATALIE Social History Tobacco Use [...] 05/17/2009 10:0 3 EST 05/20/2009 10:03 EST us Antonieta Schrader Nolan DRYWALL STRIPPER MICROBIOLOGY - GENERAL ORDERA BLES Final Result [facility] [address] [address] * CYTOPATHOLOGY (05/17/2009 0:00 EST) Pathology Report: CYTOPATHOLOGY REPORT ? Reports generated via electronic interface contain original data; ? however they are lacking the format of the original report. ? Caution should be taken when reading/interpreti ng unformatted reports. ? Name: ? RUSLAN CHAIREZ ? Accession #: ? [id number] ? : ? 1970 (Age: 38) ??F ?Collect Date: ? 05/17/2009 ? Location: ? [facility] ? Receive Date: ? 05/18/2009 ? Provider: ?ANTONIETA M NOLAN DRYWALL STRIPPER ? Copy to: ? Specimen/Source: ?Pap Test, [...] of Report ? [facility] 05/17/2009 05/18/2009 us Antonieta Francisco DRYWALL STRIPPER PATHOLOGY ORDERABLES Final Re sult [facility] [address] [place] [address] documented in this encounter Visit Diagnoses Not on filedocumented in this encounter
--- OUTSIDE RECORDS SUMMARY | 2024-06-19 14:47 | XMS_ITS | Encounter Summary ---
Author Organization [facility] Address [address] [place] [address] Care Team Providers Care Sample Clerk Name Role Phone Unavailable Primary Care Provider Unavailabl e Encounter Details Date Type Department Care Team (Late st Contact Info) Description 04/14/2007 Results Only [facility] - [place] [facility] [address] [place] [address] Antonieta Cedeno NP Social History Tobacco Use [...] ? RUSLAN CHAIREZ ? Accession #: ? [id number] : ? 1970 (Age: 36) ??F ?Collect Date: ? 04/14/2007 Location: ? [facility] ? Receive Date: ? 04/15/2007 Provider: ?ANTONIETA CEDENO NP Copy to: ? Specimen/Source: ?ThinPrep Pap Test, Cervix/Endocervix, processed on Exposed Vocals ThinPrep Imaging System, with manual evaluation Last [...] End of Report [facility] 04/14/2007 04/15/2007 us Antonieta Cedeno NP PATHOLOGY ORDERABLES Final Re sult [facility] [address] [place] [address] documented in this encounter Visit Diagnoses Not on filedocumented in this encounter
--- OUTSIDE RECORDS SUMMARY | 2024-06-19 14:47 | XMS_ITS | Encounter Summary ---
Author Organization [facility] Address [address] [place] [address] Care Team Providers Care Poultry Debeaker Name Role Phone Unavailable Primary Care Provider Unavailabl e Encounter Details Date Type Department Care Team (Late st Contact Info) Description 09/15/2001 Results Only [facility] - [place] [facility] [address] [place] [address] Antonieta Cedeno NP Social History Tobacco Use [...] ? RUSLAN CHAIREZ ? Accession #: ? [id number] : ? 1970 (Age: 30) ??F ?Collect Date: ? 09/15/2001 Location: ? [facility] ? Receive Date: ? 09/16/2001 Provider: ?ANTONIETA CEDENO METAL ENGRAVER Copy to: ? Specimen/Source: ?ThinPrep Pap Test, Cervix/Endocervix Last Menstrual Period: ? 09/10/01 ? SPECIMEN ADEQUACY ? Satisfactory for Evaluation - transformation zone component present GENERAL CATEGORIZATION ? Negative for Intraepithelial Lesion or Malignancy ? Document reviewed and electronically signed by: ? YAJAIRA Walker(ASCP) ? Report Date: ??09/19/2001 12:39 End of Report [facility] 09/15/2001 09/16/2001 us Antonieta Cedeno NP PATHOLOGY ORDERABLES Final Re sult [facility] [address] [place] [address] documented in this encounter Visit Diagnoses Not on filedocumented in this encounter
--- OUTSIDE RECORDS SUMMARY | 2024-06-19 14:47 | XMS_ITS | Encounter Summary ---
Author Organization [facility] Address [address] [place] [address] Care Team Providers Care Construction Pit Worker Name Role Phone Unavailable Primary Care Provider Unavailabl e Encounter Details Date Type Department Care Team (Late st Contact Info) Description 10/21/2002 Results Only [facility] - [place] [facility] [address] [place] [address] Antonieta Cedeno NP Social History Tobacco Use [...] ? RUSLAN CHAIREZ ? Accession #: ? [id number] : ? 1970 (Age: 31) ??F ?Collect Date: ? 10/21/2002 Location: ? [facility] ? Receive Date: ? 10/22/2002 Provider: ?ANTONIETA CEDENO VICE INVESTIGATOR Copy to: ? Specimen/Source: ?ThinPrep Pap Test, Cervix/Endocervix Last Menstrual Period: ? 10/07/02 ? SPECIMEN ADEQUACY ? Satisfactory for Evaluation - transformation zone component present GENERAL CATEGORIZATION ? Negative for Intraepithelial Lesion or Malignancy ? Document reviewed and electronically signed by: ? Chriss Lion, CT(ASCP) ? Report Date: ??10/28/2002 10:24 End of Report [facility] 10/21/2002 10/22/2002 us Antonieta Cedeno NP PATHOLOGY ORDERABLES Final Re sult [facility] [address] [place] [address] documented in this encounter Visit Diagnoses Not on filedocumented in this encounter
--- OUTSIDE RECORDS SUMMARY | 2024-06-19 14:48 | XMS_ITS | Encounter Summary ---
Author Organization [facility] [place] [address] Care Team Providers Care Children'S Tutor Nursery Name Role Phone Leonor Hendricks MD Primary Care Provider [phone] Encounter Details Date Type Department Care Team (Late st Contact Info) Description 12/31/2022 Telephone [place] [phone] Keyla Katz RN Social History Tobacco Use [...] AM EST TH Visit (TeleHealth) [place] [phone] lBade Martinez MD [facility] [place] [address] 05/10/2025 4:30 PM EST Office Visit Dermatology at [place] [address] [place] [phone] Andreas Richardson MD [address], MESSI [place] [address] documented as of this encounter Visit Diagnoses Not on filedocumented in this encounter Care Teams Children'S Tutor Nursery Relationship Specialty Start Date End Date Leonor Hendricks MD [address] [place] [address] PCP - General Family Medicine 11/27/16 documented as of this encounter
--- OUTSIDE RECORDS SUMMARY | 2024-06-19 14:48 | XMS_ITS | Encounter Summary ---
[place] [address] Care Team Providers Care Balling Head Tender Name Role Phone Leonor Hendricks MD Primary Care Provider [phone] Reason for Visit * Reason Comments Prior Authorization Tremfya 100mg/mL SOP N Encounter Details Date Type Department Care Team (Late st Contact Info) Description 12/25/2022 Specialty [place] [address] Jean Paul Francis, METAL FURNITURE ASSEMBLY SUPERVISOR Social History Tobacco Use Types Packs/Day [...] : 1970 Patient Address: [address] [place] [address] (home) Medication Name: GUSELKUMAB 100 MG/ML SUBCUTANEOUS AUTO-INJECTOR Medication ID: Subscriber Insurance: Digital H2O ([facility]) Subscriber Insurance Comment: Fax: Physician: ADDY WANG Physician Comment: Sent Via: [facility] Graham: [id number] Ref/Case/PA#: [id number] Medication Strength Frequency Requested: Tremfya 100mg/mL SOPN. Inject the contents of one pen (100mg) SQ once every 8 weeks Qty/Day Supply: New Start: Renewal Diagnosis & ICD-10 Code: Psoriasis L40.9 Patient Notified: No Submission Notes: None Jean Paul Francis 12/25/22 10:29 AM * Jean Paul Francis - 12/25/2022 10:26 AM EDT [facility], Prior Authorization Approval Medication Name: GUSELKUMAB 100 MG/ML SUBCUTANEOUS AUTO-INJECTOR Medication ID: Approval Dates: 12/25/2022 to 12/25/2023 Insurance requirements/notes: - For reauth only, patient is currently filling with [facility]. Provider sent new RX on 2022 Other Notes: None Case/Reference #: [id number] Approval notification Received via: Fax Copay: Copay assistance: Copay Card Copay Notes: Insurance mandated Pharmacy: [facility] Fillable at [facility] Specialty Pharmacy: No Patient Notified: No Pharmacy staff will be reaching out to the patient to inform them of their medication[facility]. If applicable, a pharmacist will speak with the patient to offer our specialty pharmacy services and to arrange delivery of their medication. Jean Paul Francis 12/25/22 11:49 AM documented in this encounter Plan of Treatment Upcoming Encounters Date Type Department Care Team (Late st Contact Info) Description 06/23/2024 11:30 AM EST TH Visit (TeleHealth) [place] [address] Blade Martinez MD [facility] [place] [address] 05/10/2025 4:30 PM EST Office Visit Dermatology at [place] [address] [place] [address] Addy Wang MD [address], [place] [address] documented as of this encounter Visit Diagnoses Not on filedocumented in this encounter Care Teams Balling Head Tender Relationship Specialty Start Date End Date Leonor Hendricks MD [address] [place] [address] PCP - General Family Medicine 11/27/16 documented as of this encounter
--- OUTSIDE RECORDS SUMMARY | 2024-06-19 14:48 | XMS_ITS | Encounter Summary ---
Author Organization [facility] [place] [address] Care Team Providers Care School Guidance Counselor Name Role Phone Leonor Hendricks MD Primary Care Provider [phone] Reason for Visit * Reason Comments Medication Refill Encounter Details Date Type Department Care Team (Late Contact Info) Description 11/15/2022 [place] [address] Blade Martinez MD [facility] [place] [address] Social History Tobacco Use Types Packs/Day Years [...] AM EST TH Visit (TeleHealth) [place] [address] Blade Martinez MD [facility] [place] [address] 05/10/2025 4:30 PM EST Office Visit Dermatology at [address] [address] Andreas Richardson MD [address], [place] [address] documented as of this encounter Visit Diagnoses Not on filedocumented in this encounter Care Teams School Guidance Counselor Relationship Specialty Start Date End Date Leonor Hendricks MD [address] [place] [address] PCP - General Family Medicine 11/27/16 documented as of this encounter
--- OUTSIDE RECORDS SUMMARY | 2024-06-19 14:48 | XMS_ITS | Encounter Summary ---
Author Organization [facility] [place] [address] Care Team Providers Care Truck Unloader Name Role Phone Leonor Hendricks MD Primary Care Provider [phone] Encounter Details Date Type Department Care Team (Latest Contact Info) Description 05/22/2022 9:30 AM EST TH Visit (TeleHealth) [place] [address] Blade Martinez MD [facility] [place] [place] [address] PATIENT NOT SEEN Social History Tobacco Use [...] AM EST TH Visit (TeleHealth) [place] [address] Blade Martinez MD [facility] [place] [address] 05/10/2025 4:30 PM EST Office Visit Dermatology at [place] [address] [place] [address] Andreas Richardson MD [address], [place] [address] documented as of this encounter Visit Diagnoses Diagnosis DH PATIENT NOT SEEN Type 2 diabetes mellitus with hyperglycemia, with long-term current use of insulin Misha's thyroiditis Chronic lymphocytic thyroiditis Vitamin D deficiency Unspecified vitamin D deficiency Hypertriglyceridemia Pure hyperglyceridemia documented in this encounter Care Teams Truck Unloader Relationship Specialty Start Date End Date Leonor Hendricks MD [address] [place] [address] PCP - General Family Medicine 11/27/16 documented as of this encounter
--- OUTSIDE RECORDS SUMMARY | 2024-06-19 14:48 | XMS_ITS | Encounter Summary ---
Author Organization [facility] [place] [address] Care Team Providers Care Director Diabetes Name Role Phone Leonor Hendricks MD Primary Care Provider [phone] Encounter Details Date Type Department Care Team (Latest Contact Info) Description 07/24/2022 2:30 PM EST TH Visit (TeleHealth) [place] [address] Blade Martinez MD [facility] [place] [address] Uncontrolled type 2 diabetes mellitus with hyperglycemia, [...] in 3 months, she will do at [facility] 3. History of Misha's thyroiditis with [...] ICU for 8 days in Feb 2021 ([facility]), on BIPCP but no need for intubation [...] for 8 days in Feb 2021 at [facility], on BIPCP but no need for intubation [...] fat and controlled carb diet Labs at [facility] Date 10/25/20 11/22/20 01/03/21 Glucose 184 210 GFR 60 Cr 0.8 Triglyceride 1,037 374 380 Outside lab at [facility] Date 05/25/21 09/18/21 11/29/21 07/13/22 A1c 8.1, [...] ophtho evaluation - sees Dr. Martin at [facility], no DR (August 2018). 4) [...] non-focal, no facial asymmetry. Outside lab at [facility] Date 05/25/21 09/18/21 11/29/21 07/13/22 A1c 8.1, [...] in 3 months, she will do at [facility] 3. History of Misha's thyroiditis with [...] D) and TSH in 6 mo at [facility] lab) for further management. Blade Martinez MD, PhD, FACE, FACP documented in this encounter Plan of Treatment Upcoming Encounters Date Type Department Care Team (Late st Contact Info) Description 06/23/2024 11:30 AM EST TH Visit (TeleHealth) [place] [address] Blade Martinez MD [facility] [place] [address] 05/10/2025 4:30 PM EST Office Visit Dermatology at [address] [place] [address] Andreas Richardson MD [address], [place] [address] documented as of this encounter Visit Diagnoses [...] hyperglyceridemia documented in this encounter Care Teams Director Diabetes Relationship Specialty Start Date End Date Leonor Hendricks MD [address] [place] [address] PCP - General Family Medicine 11/27/16 documented as of this encounter
--- OUTSIDE RECORDS SUMMARY | 2024-06-19 14:48 | XMS_ITS | Encounter Summary ---
Author Organization [facility] [place] [address] Care Team Providers Care Proposal Rep Name Role Phone Leonor Hendricks MD Primary Care Provider [phone] Reason for Visit * Reason Comments Medication Refill Encounter Details Date Type Department Care Team (Late st Contact Info) Description 10/31/2022 Refill [place] [address] Marianela Xiao MD Social History Tobacco Use Types Packs/Day Years [...] AM EST TH Visit (TeleHealth) [place] [address] Blade Martinez MD [facility] [place] [address] 05/10/2025 4:30 PM EST Office Visit Dermatology at [place] [address] [place] [address] Andreas Richardson MD [address], [place] [address] documented as of this encounter Visit Diagnoses Not on filedocumented in this encounter Care Teams Proposal Rep Relationship Specialty Start Date End Date Leonor Hendricks MD [address] [place] [address] PCP - General Family Medicine 11/27/16 documented as of this encounter
--- OUTSIDE RECORDS SUMMARY | 2024-06-19 14:48 | XMS_ITS | Encounter Summary ---
Author Organization [facility] [place] [address] Care Team Providers Care Home School Coordinator Name Role Phone Leonor Hendricks MD Primary Care Provider [phone] Reason for Visit * Reason Onset Date Comments Medication Refill 10/30/2021 Encounter Details Date Type Department Care Team (Late st Contact Info) Description 10/30/2021 Refill [place] [address] Keyla Katz, RN Social History Tobacco Use [...] AM EST TH Visit (TeleHealth) [place] [address] Blade Martinez MD [facility] [place] [address] 05/10/2025 4:30 PM EST Office Visit Dermatology at [place] [address] [place] [address] Andreas Richardson MD [address], [place] [address] documented as of this encounter Visit Diagnoses Not on filedocumented in this encounter Care Teams Home School Coordinator Relationship Specialty Start Date End Date Lenoor Hendricks MD [address] [place] [address] PCP - General Family Medicine 11/27/16 documented as of this encounter
--- OUTSIDE RECORDS SUMMARY | 2024-06-19 14:48 | XMS_ITS | Encounter Summary ---
[place] [address] Care Team Providers Care Pilot Boat Captain Name Role Phone Leonor Hendricks MD Primary Care Provider [phone] Reason for Visit * Reason Onset Date Comments Prior Authorization 01/24/2023 Encounter Details Date Type Department Care Team (Late st Contact Info) Description 01/24/2023 Telephone [place] [address] Reva Sun Prior Authorization Social History Tobacco [...] Type II DM (E11.65) Health plan: JEAN-PAUL ([facility]) Graham: [id number] Authorizing sales representative gas service name: Naima Sent to health plan on: 01/24/23 PA Outcome: PA Approval Quantity approved: Authorization number: [id number] Start date: 01/24/23 End date: 01/24/24 documented in this encounter Plan of Treatment Upcoming Encounters Date Type Department Care Team (Late st Contact Info) Description 06/23/2024 11:30 AM EST TH Visit (TeleHealth) [place] [address] Blade Martinez MD [facility] [place] [address] 05/10/2025 4:30 PM EST Office Visit Dermatology at [place] [address] [place] [address] Andreas Richardson MD [address] [facility] [facility], [place] [address] documented as of this encounter Visit Diagnoses Not on filedocumented in this encounter Care Teams Pilot Boat Captain Relationship Specialty Start Date End Date Leonor Hendricks MD [address] [place] [address] PCP - General Family Medicine 11/27/16 documented as of this encounter
--- OUTSIDE RECORDS SUMMARY | 2024-06-19 14:48 | XMS_ITS | Encounter Summary ---
Author Organization [facility] [place] [address] Care Team Providers Care Supervisor Inspection Name Role Phone Leonor Hendricks MD Primary Care Provider [phone] Reason for Visit * Reason Comments Medication Refill Encounter Details Date Type Department Care Team (Late st Contact Info) Description 12/12/2023 [place] [address] Blade Martinez MD [facility] [place] [address] Uncontrolled type 2 diabetes mellitus with hyperglycemia, [...] Contact Info) Description 06/23/2024 11:30 AM EST Visit (TeleHealth) [place] [address] Blade Martinez MD [facility] [place] [address] 05/10/2025 4:30 PM EST Office Visit Dermatology at [place] [address] [place] [address] Andreas Richardson MD [address], MESSI Christianne [place] [address] documented as of this encounter Visit Diagnoses Diagnosis Uncontrolled type 2 diabetes mellitus with hyperglycemia, without long-term current use of insulin Type 2 diabetes mellitus with hyperglycemia, with long-term current use of insulin Misha's thyroiditis Chronic lymphocytic thyroiditis Vitamin D deficiency Unspecified vitamin D deficiency Hypertriglyceridemia Pure hyperglyceridemia documented in this encounter Care Teams Supervisor Inspection Relationship Specialty Start Date End Date Leonor Hendricks MD [address] [place] [address] PCP - General Family Medicine 11/27/16 documented as of this encounter
--- OUTSIDE RECORDS SUMMARY | 2024-06-19 14:48 | XMS_ITS | Encounter Summary ---
Author Organization [facility] [place] [address] Care Team Providers Care Carding Utility Tender Name Role Phone Leonor Hendricks MD Primary Care Provider [phone] Encounter Details Date Type Department Care Team [...] AM EST TH Visit (TeleHealth) [place] [address] Blade Martinez MD [facility] [place] [address] 05/10/2025 4:30 PM EST Office Visit Dermatology at [place] [address] [facility] [place] [address] Andreas Richardson MD [address] [facility], [place] [address] documented as of this encounter Visit Diagnoses Not on filedocumented in this encounter Care Teams Carding Utility Tender Relationship Specialty Start Date End Date Leonor Hendricks MD [address] [place] [address] PCP - General Family Medicine 11/27/16 documented as of this encounter
--- OUTSIDE RECORDS SUMMARY | 2024-06-19 14:48 | XMS_ITS | Encounter Summary ---
Author Organization [facility] [place] [address] Care Team Providers Care Manager Supply Name Role Phone Leonor Hendricks MD Primary Care Provider [phone] Encounter Details Date Type Department Care Team (Latest Contact Info) Description 12/13/2023 9:00 AM EDT TH Visit (TeleHealth) [place] [address] Blade Martinez MD [facility] [place] [address] Uncontrolled type 2 diabetes mellitus with hyperglycemia, [...] in 3 months, she will do at [facility] 3. History of Misha's thyroiditis with [...] 3 mo at next lab draw at [facility] lab as well. 6. We discussed with [...] also hypertriglyceridemia. She used to see Dr. Morlaes until 10/26/20 and was transferred under my [...] fat and controlled carb diet Labs at [facility] Date 10/25/20 11/22/20 01/03/21 Glucose 184 210 GFR 60 Cr 0.8 Triglyceride 1,037 374 380 Outside lab at [facility] Date 05/25/21 09/18/21 11/29/21 07/13/22 01/18/23 [...] ophtho evaluation - sees Dr. Martin at [facility], no DR (August 2018). 4) [...] non-focal, no facial asymmetry. Outside lab at [facility] Date 05/25/21 09/18/21 11/29/21 07/13/22 01/18/23 [...] in 3 months, she will do at [facility] 3. History of Misha's thyroiditis with [...] 3 mo at next lab draw at [facility] lab as well. 6. Discussed with pt [...] AM EST TH Visit (TeleHealth) [place] [address] Blade Martinez MD [facility] [place] [address] 05/10/2025 4:30 PM EST Office Visit Dermatology at [address] [place] [address] Andreas Richardson MD [address], [place] [address] documented as of this encounter Visit Diagnoses Diagnosis Uncontrolled type 2 diabetes mellitus with hyperglycemia, without long-term current use of insulin Misha's thyroiditis Chronic lymphocytic thyroiditis Vitamin D deficiency Unspecified vitamin D deficiency Hypertriglyceridemia Pure hyperglyceridemia Type 2 diabetes mellitus with hyperglycemia, with long-term current use of insulin Misha's thyroiditis Chronic lymphocytic thyroiditis Vitamin D deficiency Unspecified vitamin D deficiency Hypertriglyceridemia Pure hyperglyceridemia documented in this encounter Care Teams Manager Supply Relationship Specialty Start Date End Date Leonor Hendricks MD [address] [place] [address] PCP - General Family Medicine 11/27/16 documented as of this encounter
--- OUTSIDE RECORDS SUMMARY | 2024-06-19 14:48 | XMS_ITS | Encounter Summary ---
[place] [address] Care Team Providers Care Electric Needle Specialist Name Role Phone Leonor Hendricks MD Primary Care Provider [phone] Reason for Visit * Reason Onset Date Comments Prior Authorization 07/13/2021 Encounter Details Date Type Department Care Team (Late st Contact Info) Description 07/13/2021 Telephone [place] [address] Reva Sun Prior Authorization Social History Tobacco [...] * Telephone Encounter - Reva Sun - 07/18/2021 2:04 PM EST Medication Prior Authorization Chaidarun Medication name/dose/directions: Ozempic 4mg/3mL - inj 1mg once weekly Rationale for request: Type II DM Health plan: JEAN-PAUL ([facility]) Authorizing sales representatives name: Naima Sent to health plan on: 07/18/21 Health plan decision: Approved Quantity approved: Authorization number: [id number] Start date: 07/18/21 End date: 07/18/22 * Telephone Encounter - Reva Sun - 07/13/2021 7:26 AM EST Received PA for Ozempic Will complete as soon as possible documented in this encounter Plan of Treatment Upcoming Encounters Date Type Department Care Team (Late st Contact Info) Description 06/23/2024 11:30 AM EST TH Visit (TeleHealth) [place] [address] Blade Martinez MD [facility] [place] [address] 05/10/2025 4:30 PM EST Office Visit Dermatology at [place] [address] [facility] [place] [address] Andreas Richardson MD [address], [place] [address] documented as of this encounter Visit Diagnoses Not on filedocumented in this encounter Care Teams Electric Needle Specialist Relationship Specialty Start Date End Date Leonor Hendricks MD [address] [place] [address] PCP - General Family Medicine 11/27/16 documented as of this encounter
--- OUTSIDE RECORDS SUMMARY | 2024-06-19 14:48 | XMS_ITS | Encounter Summary ---
Author Organization [facility] [place] [address] Care Team Providers Care Associate Art Director Name Role Phone Leonor Hendricks MD Primary Care Provider [phone] Encounter Details Date Type Department Care Team (Late st Contact Info) Description 05/03/2022 8:00 AM EST TH Visit (TeleHealth) Sleep Center at [facility] [address] [place] [address] Lucrecia Vang, ANTOINETTE MAGDALENE on CPAP Social History Tobacco Use [...] * Patient Instructions* Lucrecia Vang APRN - 05/03/2022 8:00 AM EST Plan/Recommendations: --Continue on 8-14cw --She needs a data card in her machine. Suggest she reach out to [facility] to ask them for a data card, have it sent to her, insert the data card into her machine, use CPAP overnight for a few nights, thenreturn data card to [place] and have them fax us a copy of her data to: Sleep Medicine [phone] I will review the CPAP download when I have the data. Ongoing CPAP tips: --Adjust mask straps nightly while laying down with machine on, just to snug, for best fit; do not overtighten as it can cause discomfort and greater mask leak --Consider the PadACheek or other cloth mask liner for comfort or mask leak: for information, call [phone] or go to www.[employer] --To help reduce condensation in tubing, adjust humidity down or heated tubing temperature up. May try adjusting one at a time. --Call [employer] for questions on machine, supply replacements, billing [...] drive if drowsy; if drowsy while driving, meat puller to nap orrest --Follow-up in 1 year; [...] ?? HPI continues below. ?? Patient in [place], [place] Visit by video ?? Sleep Study [...] it Chin Strap: no HCC: [facility] Insurance: [employer] Snoring on CPAP: Not anymore [...] ?? Daytime Sleepiness Patient-reported last 4 scores: [facility] 11/13/2018 12/16/2019 02/13/2021 05/02/2022 [facility] 5 (Low Risk) 3 (Low Risk) [...] if she sits at home; she would meat puller or not even drive if very tired ?Close calls related to sleepiness:??no ?Accidents related to sleepiness: no ?? ROS: ENT: Nasal Obstruction: No CV: chest pain: none Palpitations: had heart catheterization about 20 years ago : Nocturia: no ?? 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 ASked her to reach out to [facility] for a data card, which she does not have in her machine, to obtain it, keepit in machine a few nights, then send back to [facility] and have them fax us the updated [...] her machine. Suggest she reach out to [facility] to ask them for a data card, have it sent to her, insert the data card into her machine, use CPAP overnight for a few nights, thenreturn data card to [place] and have them fax us a copy of her data to: Sleep Medicine [phone] I will review the CPAP download when I have the data. Ongoing CPAP tips: --Adjust mask straps nightly while laying down with machine on, just to snug, for best fit; do not overtighten as it can cause discomfort and greater mask leak --Consider the PadACheek or other cloth mask liner for comfort or mask leak: for information, call [phone] or go to www.[employer] --To help reduce condensation in tubing, adjust humidity down or heated tubing temperature up. May try adjusting one at a time. --Call [employer] for questions on machine, supply replacements, billing [...] drive if drowsy; if drowsy while driving, meat puller to nap orrest --Follow-up in 1 year; contact me or make an appointment sooner as needed ?? The patient indicates understanding of these issues and agrees with the plan. ?? Lucrecia Vang APRN documented in this encounter Plan of Treatment Upcoming Encounters Date Type Department Care Team (Late st Contact Info) Description 06/23/2024 11:30 AM EST TH Visit (TeleHealth) [place] [address] Blade Martinez MD [facility] [place] [address] 05/10/2025 4:30 PM EST Office Visit Dermatology at [place] [address] [place] [address] Andreas Richardson MD [address], [place] [address] documented as of this encounter Visit Diagnoses Diagnosis MAGDALENE on CPAP Obstructive sleep apnea (adult) (pediatric) Type 2 diabetes mellitus with hyperglycemia, with long-term current use of insulin Misha's thyroiditis Chronic lymphocytic thyroiditis Vitamin D deficiency Unspecified vitamin D deficiency Hypertriglyceridemia Pure hyperglyceridemia documented in this encounter Care Teams Associate Art Director Relationship Specialty Start Date End Date Leonor Hendricks MD [address] [place] [address] PCP - General Family Medicine 11/27/16 documented as of this encounter
--- OUTSIDE RECORDS SUMMARY | 2024-06-19 14:48 | XMS_ITS | Encounter Summary ---
Author Organization [facility] [place] [address] Care Team Providers Care Grinding And Spraying Supervisor Name Role Phone Leonor Hendricks MD Primary Care Provider [phone] Reason for Visit * Reason Comments Medication Refill Encounter Details Date Type Department Care Team (Late Contact Info) Description 12/03/2022 [place] [address] Blade Martinez MD [facility] [place] [address] Social History Tobacco Use Types Packs/Day Years [...] AM EST TH Visit (TeleHealth) [place] [address] Blade Martinez MD [facility] [place] [address] 05/10/2025 4:30 PM EST Office Visit Dermatology at [address] [address] Andreas Richardson MD [address], [place] [address] documented as of this encounter Visit Diagnoses Not on filedocumented in this encounter Care Teams Grinding And Spraying Supervisor Relationship Specialty Start Date End Date Leonor Hendricks MD [address] [place] [address] PCP - General Family Medicine 11/27/16 documented as of this encounter
--- OUTSIDE RECORDS SUMMARY | 2024-06-19 14:48 | XMS_ITS | Encounter Summary ---
Author Organization [facility] [place] [address] Care Team Providers Care Coding Director Name Role Phone Leonor Hendricks MD Primary Care Provider [phone] Encounter Details Date Type Department Care Team (Late st Contact Info) Description 10/20/2021 Refill Dermatology at [address] [address] Andreas Richardson MD [address] [place] [address], DAREK A DERMATOLOGY [place], [place] [address] Social History Tobacco Use Types Packs/Day Years [...] AM EST TH Visit (TeleHealth) [place] [address] Blade Martinez MD [facility] [place] [address] 05/10/2025 4:30 PM EST Office Visit Dermatology at [address] [address] Andreas Richardson MD [address] [place] [address] RD, [place] [address] documented as of this encounter Visit Diagnoses Not on filedocumented in this encounter Care Teams Coding Director Relationship Specialty Start Date End Date Leonor Hendricks MD [address] [place] [address] PCP - General Family Medicine 11/27/16 documented as of this encounter
--- OUTSIDE RECORDS SUMMARY | 2024-06-19 14:48 | XMS_ITS | Encounter Summary ---
Author Organization [facility] [place] [address] Care Team Providers Care Dynamometer Tuner Name Role Phone Leonor Hendricks MD Primary Care Provider [phone] Encounter Details Date Type Department Care Team (Late st Contact Info) Description 2022 Refill Dermatology at [address] [address] Roxana Hays RN Social History Tobacco Use Types Packs/Day [...] AM EST TH Visit (TeleHealth) [place] [address] Blade Martinez MD [facility] [place] [address] 05/10/2025 4:30 PM EST Office Visit Dermatology at [address] [address] Andreas Richardson MD [address] [place] [address], DAREK A DERMATOLOGY [place], [place] [address] documented as of this encounter Visit Diagnoses Not on filedocumented in this encounter Care Teams Dynamometer Tuner Relationship Specialty Start Date End Date Leonor Hendricks MD [address] [place] [address] PCP - General Family Medicine 11/27/16 documented as of this encounter
--- OUTSIDE RECORDS SUMMARY | 2024-06-19 14:48 | XMS_ITS | Encounter Summary ---
[place] [address] Care Team Providers Care Medical Oncology Physician Name Role Phone Leonor Hendricks MD Primary Care Provider [phone] Reason for Visit * Reason Comments Prior Authorization Tremfya 100mg/mL SOS Y Encounter Details Date Type Department Care Team (Late st Contact Info) Description 10/20/2021 Specialty [place] [address] Jean Paul Francis, [employer] Social History Tobacco Use Types Packs/Day Years [...] Paul Francis - 10/20/2021 4:03 PM EDT [facility], Prior Authorization Approval Medication Name: TREMFYA 100 MG/ML SUBCUTANEOUS SYRINGE Medication ID: Approval Dates: 10/20/2021 to 10/20/2022 Insurance requirements/notes: RX#[id number] For reauth Other Notes: None Case/Reference #: [id number] Approval notification Received via: [facility] Copay: Copay assistance: Copay Card Copay Notes: Insurance mandated Pharmacy: [facility] Home Delivery Fillable at [facility] Specialty Pharmacy: No Pharmacy staff will be reaching out to the patient to inform them of their medication's [facility]. If applicable, a pharmacist will speak with the patient to offer our specialty pharmacy services and to arrange delivery of their medication. Jean Paul Francis 10/20/21 4:09 PM [facility], Medication Prior Authorization Submission Patient: Jesika Ryan Patient : 1970 Patient Address: [address] [address] (home) Medication Name: TREMFYA 100 MG/ML SUBCUTANEOUS SYRINGE Medication ID: Subscriber Insurance: [employer] ([facility]) Subscriber Insurance Comment: Fax: Physician: ADDY WANG Physician Comment: Sent Via: [facility] Graham: [id number] Ref/Case/PA#: Medication Strength Frequency Requested: Tremfya 100mg/mL [...] AM EST TH Visit (TeleHealth) [place] [address] Blade Martinez MD [facility] [place] [address] 05/10/2025 4:30 PM EST Office Visit Dermatology at [place] [address] [place] [address] Addy Wang MD [address], [place]I [place] [address] documented as of this encounter Visit Diagnoses Not on filedocumented in this encounter Care Teams Medical Oncology Physician Relationship Specialty Start Date End Date Leonor Hendricks MD [address] [place] [address] PCP - General Family Medicine 11/27/16 documented as of this encounter
--- OUTSIDE RECORDS SUMMARY | 2024-06-19 14:48 | XMS_ITS | Encounter Summary ---
Author Organization [facility] [place] [address] Care Team Providers Care Wet And Dry Sugar Bin Operator Name Role Phone Leonor Hendricks MD Primary Care Provider [phone] Reason for Visit * Reason Onset Date Comments Medication Refill 11/27/2023 Encounter Details Date Type Department Care Team (Late st Contact Info) Description 11/27/2023 Refill [place] [address] Marianela Xiao MD Social History Tobacco Use [...] AM EST TH Visit (TeleHealth) [place] [address] Blade Martinez MD [facility] [place] [address] 05/10/2025 4:30 PM EST Office Visit Dermatology at [place] [address] [place] [address] Andreas Richardson MD [address], [place] [address] documented as of this encounter Visit Diagnoses Not on filedocumented in this encounter Care Teams Wet And Dry Sugar Bin Operator Relationship Specialty Start Date End Date Leonor Hendricks MD [address] [place] [address] PCP - General Family Medicine 11/27/16 documented as of this encounter
--- OUTSIDE RECORDS SUMMARY | 2024-06-19 14:48 | XMS_ITS | Encounter Summary ---
Author Organization [facility] [place] [address] Care Team Providers Care Athletic Equipment Manager Name Role Phone Leonor Hendricks MD Primary Care Provider [phone] Reason for Visit * Reason Onset Date Comments Medication Refill 11/04/2021 Encounter Details Date Type Department Care Team (Late st Contact Info) Description 11/04/2021 [place] [address] Marianela Xiao MD Social History Tobacco Use [...] AM EST TH Visit (TeleHealth) [place] [address] Blade Martinez MD [facility] [place] [place] [address] 05/10/2025 4:30 PM EST Office Visit Dermatology at [place] [address] [facility] [place] [address] Andreas Richardson MD [address], [place] [address] documented as of this encounter Visit Diagnoses Not on filedocumented in this encounter Care Teams Athletic Equipment Manager Relationship Specialty Start Date End Date Leonor Hendricks MD [address] [place] [address] PCP - General Family Medicine 11/27/16 documented as of this encounter
--- OUTSIDE RECORDS SUMMARY | 2024-06-19 14:48 | XMS_ITS | Encounter Summary ---
Author Organization [facility] [place] [address] Care Team Providers Care Healthcare Specialist Name Role Phone Leonor Hendricks MD Primary Care Provider [phone] Encounter Details Date Type Department Care Team (Late st Contact Info) Description 12/19/2021 Telephone [place] [address] Keyla Katz RN Social History Tobacco Use [...] AM EST TH Visit (TeleHealth) [place] [address] Blade Martinez MD [facility] [address] ENDOCRINOLOGY [place], [place] [address] 05/10/2025 4:30 PM EST Office Visit Dermatology at [place] [address] [facility] [place] [address] Andreas Richardson MD [address], [place] [address] documented as of this encounter Visit Diagnoses Not on filedocumented in this encounter Care Teams Healthcare Specialist Relationship Specialty Start Date End Date Leonor Hendricks MD [address] [place] [address] PCP - General Family Medicine 11/27/16 documented as of this encounter
--- OUTSIDE RECORDS SUMMARY | 2024-06-19 14:48 | XMS_ITS | Encounter Summary ---
Author Organization [facility] [place] [address] Care Team Providers Care Scientific Research Associate Name Role Phone Leonor Hendricks MD Primary Care Provider [phone] Reason for Visit * Reason Onset Date Comments Medication Refill 09/13/2021 Encounter Details Date Type Department Care Team (Late st Contact Info) Description 09/13/2021 Ref[place] [address] Blade Martinez MD [facility] [place] [place] [address] Social History Tobacco Use Types Packs/Day Years [...] AM EST TH Visit (TeleHealth) [place] [address] Blade Martinez MD [facility] [place] [address] 05/10/2025 4:30 PM EST Office Visit Dermatology at [place] [address] [place] [address] Andreas Richardson MD [address], [place] [address] documented as of this encounter Visit Diagnoses Not on filedocumented in this encounter Care Teams Scientific Research Associate Relationship Specialty Start Date End Date Leonor Hendricks MD [address] [place] [address] PCP - General Family Medicine 11/27/16 documented as of this encounter
--- OUTSIDE RECORDS SUMMARY | 2024-06-19 14:48 | XMS_ITS | Encounter Summary ---
Author Organization [facility] [place] [address] Care Team Providers Care Pneumatic Riveter Name Role Phone Leonor Hendricks MD Primary Care Provider [phone] Reason for Visit * Reason Comments Medication Refill Encounter Details Date Type Department Care Team (Late Contact Info) Description 10/08/2022 Refill [place] [address] Blade Martinez MD [facility] [place] [address] Social History Tobacco Use Types Packs/Day Years [...] EST TH Visit (TeleHealth) [place] [address] Blade Martinez MD [facility] [place] [address] 05/10/2025 4:30 PM EST Office Visit Dermatology at [address] [address] Andreas Richardson MD [address], [place] [address] documented as of this encounter Visit Diagnoses Not on filedocumented in this encounter Care Teams Pneumatic Riveter Relationship Specialty Start Date End Date Leonor Hendricks MD [address] [place] [address] PCP - General Family Medicine 11/27/16 documented as of this encounter
--- OUTSIDE RECORDS SUMMARY | 2024-06-19 14:48 | XMS_ITS | Encounter Summary ---
Author Organization [facility] [place] [address] Care Team Providers Care Road Engineer Freight Name Role Phone Leonor Hendricks MD Primary Care Provider [phone] Encounter Details Date Type Department Care Team (Late st Contact Info) Description 05/08/2022 Telephone Sleep Center at [facility] [address] [place] [address] Kylee Piña Social History Tobacco Use Types [...] AM EST TH Visit (TeleHealth) [place] [address] Blade Martinez MD [facility] [place] [address] 05/10/2025 4:30 PM EST Office Visit Dermatology at [place] [address] [facility] [place] [address] Andreas Richardson MD [address], [place] [address] documented as of this encounter Visit Diagnoses Not on filedocumented in this encounter Care Teams Road Engineer Freight Relationship Specialty Start Date End Date Leonor Hendricks MD [address] [place] [address] PCP - General Family Medicine 11/27/16 documented as of this encounter
--- OUTSIDE RECORDS SUMMARY | 2024-06-19 14:48 | XMS_ITS | Encounter Summary ---
Author Organization [facility] [place] [address] Care Team Providers Care Head Of Stock Name Role Phone Leonor Hendricks MD Primary Care Provider [phone] Encounter Details Date Type Department Care Team (Late st Contact Info) Description 06/05/2023 Telephone [place] [address] Blade Martinez MD [facility] [place] [address] Social History Tobacco Use Types Packs/Day Years [...] 06/05/2023 11:08 AM EST Copied from CRM #[id number]. Topic: Specialty Dept CRMs - Medication Issues >> Jun 05, 2023 10:59 AM Chuy Lara wrote: Medication Issues Specialist Blade Martinez MD Relationship (if other than patient-full name): [facility] Reason for call: Medication Issue (if symptom based used Triage Subtopic) Message/information for the nurse: Pharmacy calling states they need clarification since medicationwas transferred to them from local pharmacy. Please advise Ref# [id number] Name of Medication: omega-3 acid ethyl esters (Lovaza) 1 gram capsule Issue with the medication: Clarification documented in this encounter Plan of Treatment Upcoming Encounters Date Type Department Care Team (Late st Contact Info) Description 06/23/2024 11:30 AM EST TH Visit (TeleHealth) [place] [address] Blade Martinez MD [facility] [place] [address] 05/10/2025 4:30 PM EST Office Visit Dermatology at [address] [address] Andreas Richardson MD [address] [facility], [place] [address] documented as of this encounter Visit Diagnoses Not on filedocumented in this encounter Care Teams Head Of Stock Relationship Specialty Start Date End Date Leonor Hendricks MD [address] [place] [address] PCP - General Family Medicine 11/27/16 documented as of this encounter
--- OUTSIDE RECORDS SUMMARY | 2024-06-19 14:48 | XMS_ITS | Encounter Summary ---
[place] [address] Care Team Providers Care Residential Sales Consultant Name Role Phone Leonor Hendricks MD Primary Care Provider [phone] Reason for Visit * Reason Onset Date Comments Prior Authorization 12/20/2021 Encounter Details Date Type Department Care Team (Late st Contact Info) Description 12/20/2021 [place] [address] Reva Sun Prior Authorization Social History Tobacco [...] ?? Health plan: JEAN[employer]UL (Fax) ?? Authorizing herbicide service sales representative name: Naima ?? Sent to health plan on: 12/20/21 ?? Health plan decision: Approved ?? Quantity approved: ?? Authorization number: ?? Start date: End date: documented in this encounter Plan of Treatment Upcoming Encounters Date Type Department Care Team (Late st Contact Info) Description 06/23/2024 11:30 AM EST TH Visit (TeleHealth) [place] [address] Blade Martinez MD [facility] [place] [address] 05/10/2025 4:30 PM EST Office Visit Dermatology at [place] [address] [facility] [place] [address] Andreas Richardson MD [address], [place] [address] documented as of this encounter Visit Diagnoses Not on filedocumented in this encounter Care Teams Residential Sales Consultant Relationship Specialty Start Date End Date Leonor Hendricks MD [address] [place] [address] PCP - General Family Medicine 11/27/16 documented as of this encounter
--- OUTSIDE RECORDS SUMMARY | 2024-06-19 14:48 | XMS_ITS | Encounter Summary ---
[place] [address] Care Team Providers Care Tissue Coordinator Name Role Phone Leonor Hendricks MD Primary Care Provider [phone] Reason for Visit * Reason Onset Date Comments Prior Authorization 01/25/2023 Encounter Details Date Type Department Care Team (Late st Contact Info) Description 01/25/2023 Telephone [place] [address] Reva Sun Prior Authorization Social History Tobacco [...] II DM (E11.65) Health plan: JEAN-PAUL ([facility]) Graham: [id number] Authorizing service support representative name: Naima Sent to health plan on: 01/25/23 PA Outcome: documented in this encounter Plan of Treatment Upcoming Encounters Date Type Department Care Team (Late st Contact Info) Description 06/23/2024 11:30 AM EST TH Visit (TeleHealth) [place] [address] Blade Martinez MD [facility] [place] [address] 05/10/2025 4:30 PM EST Office Visit Dermatology at [place] [address] [facility] [place] [address] Andreas Richardson MD [address], [place] [address] documented as of this encounter Visit Diagnoses Not on filedocumented in this encounter Care Teams Tissue Coordinator Relationship Specialty Start Date End Date Leonor Hendricks MD [address] [place] [address] PCP - General Family Medicine 11/27/16 documented as of this encounter
--- OUTSIDE RECORDS SUMMARY | 2024-06-19 14:48 | XMS_ITS | Encounter Summary ---
Author Organization Formerly [facility] [place] [address] Care Team Providers Care Nuclear Waste Process Operator Name Role Phone Leonor Hendricks MD Primary Care Provider [phone] Reason for Visit * Reason Onset Date Comments Medication Refill 11/30/2021 Encounter Details Date Type Department Care Team (Late st Contact Info) Description 11/30/2021 [place] [address] Keyla Katz, RN Social History Tobacco Use [...] AM EST TH Visit (TeleHealth) [place] [address] Blade Martinez MD [facility] [address] [place] [address] 05/10/2025 4:30 PM EST Office Visit Dermatology at [place] [address] [place] [address] Andreas Richardson MD [address], [place] [address] documented as of this encounter Visit Diagnoses Not on filedocumented in this encounter Care Teams Nuclear Waste Process Operator Relationship Specialty Start Date End Date Leonor Hendricks MD [address] [place] [address] PCP - General Family Medicine 11/27/16 documented as of this encounter
--- OUTSIDE RECORDS SUMMARY | 2024-06-19 14:48 | XMS_ITS | Encounter Summary ---
Author Organization [facility] [place] [address] Care Team Providers Care Main Galley Scullion Name Role Phone Leonor Hendricks MD Primary Care Provider [phone] Encounter Details Date Type Department Care Team (Latest Contact Info) Description 01/22/2023 11:00 AM EDT TH Visit (TeleHealth) [place] [address] Blade Martinez MD [facility] [place] [address] Uncontrolled type 2 diabetes mellitus with hyperglycemia, [...] in 3 months, she will do at [facility] 3. History of Misha's thyroiditis with [...] 3 mo at next lab draw at [facility] lab as well. Blade Martinez MD, [...] for 8 days in Feb 2021 at [facility], on BIPCP but no need for [...] fat and controlled carb diet Labs at [facility] Date 10/25/20 11/22/20 01/03/21 Glucose 184 210 GFR 60 Cr 0.8 Triglyceride 1,037 374 380 Outside lab at [facility] Date 05/25/21 09/18/21 11/29/21 07/13/22 01/18/23 [...] sees Dr. Martin at [facility], no DR (August 2018). 4) CV [...] non-focal, no facial asymmetry. Outside lab at [facility] Date 05/25/21 09/18/21 11/29/21 07/13/22 01/18/23 [...] in 3 months, she will do at [facility] 3. History of Misha's thyroiditis with [...] 3 mo at next lab draw at [facility] lab as well. Blade Martinez MD, [...] AM EST TH Visit (TeleHealth) [place] [address] Blade Martinez MD [facility] [place] [address] 05/10/2025 4:30 PM EST Office Visit Dermatology at [place] [address] [place] [address] Andreas Richardson MD [address], [place] [address] documented as of this encounter Visit Diagnoses Diagnosis Uncontrolled type 2 diabetes mellitus with hyperglycemia, without long-term current use of insulin Misha's thyroiditis Chronic lymphocytic thyroiditis Vitamin D deficiency Unspecified vitamin D deficiency Type 2 diabetes mellitus with hyperglycemia, with long-term current use of insulin Hypertriglyceridemia Pure hyperglyceridemia Type 2 diabetes mellitus with hyperglycemia, with long-term current use of insulin Misha's thyroiditis Chronic lymphocytic thyroiditis Vitamin D deficiency Unspecified vitamin D deficiency Hypertriglyceridemia Pure hyperglyceridemia documented in this encounter Care Teams Main Galley Scullion Relationship Specialty Start Date End Date Leonor Hendricks MD [address] [place] [address] PCP - General Family Medicine 11/27/16 documented as of this encounter
--- OUTSIDE RECORDS SUMMARY | 2024-06-19 14:48 | XMS_ITS | Encounter Summary ---
[place] [address] Care Team Providers Care Traffic Manager Name Role Phone Leonor Hendricks MD Primary Care Provider [phone] Reason for Visit * Reason Onset Date Comments Prior Authorization 12/13/2023 Encounter Details Date Type Department Care Team (Late st Contact Info) Description 12/13/2023 Telephone [place] [address] Reva Sun Prior Authorization Social History Tobacco [...] Date: 12/13/23 End Date: 12/17/24 Case/Reference #: [id number] Approval Letter will be scanned into media once received. * Telephone Encounter - Reva Sun - 12/13/2023 2:15 PM EDT Previous Medications Tried Medication: Humalog 4x daily Medication: Tresiba 1x daily Medication: Testing 4x daily Medication: Dexcom G6 * Telephone Encounter - Reva Sun - 12/13/2023 2:12 PM EDT Medication Prior Authorization Juan Medication name/dose/directions: Dexcom G7 Sensor Rationale for request: Type II DM (E11.65) Health plan: [employer] ([employer]) [place]: [id number] Authorizing medical office representative name: Naima Sent to health plan on: 12/13/23 documented in this encounter Plan of Treatment Upcoming Encounters Date Type Department Care Team (Late st Contact Info) Description 06/23/2024 11:30 AM EST TH Visit (TeleHealth) [place] [address] Blade Martinez MD [facility] [address] 05/10/2025 4:30 PM EST Office Visit Dermatology at [address] [phone] Andreas Richardson MD [address] [facility], [place] [address] documented as of this encounter Visit Diagnoses Not on filedocumented in this encounter Care Teams Traffic Manager Relationship Specialty Start Date End Date Leonor Hendricks MD [address] [place] [address] PCP - General Family Medicine 11/27/16 documented as of this encounter
--- OUTSIDE RECORDS SUMMARY | 2024-06-19 14:48 | XMS_ITS | Encounter Summary ---
Author Organization Formerly [facility] [place] [address] Care Team Providers Care Chimney Builder Brick Name Role Phone Leonor Hendricks MD Primary Care Provider [phone] Reason for Visit * Reason Onset Date Comments Medication Refill 02/27/2023 Encounter Details Date Type Department Care Team (Late st Contact Info) Description 02/27/2023 Ref[place] [address] Blade Martinez MD [facility] [place] [address] Social History Tobacco Use Types Packs/Day Years [...] AM EST TH Visit (TeleHealth) [place] [address] Blade Martinez MD [facility] [place] [address] 05/10/2025 4:30 PM EST Office Visit Dermatology at [place] [address] [facility] [place] [address] Andreas Richardson MD [address], [place] [address] documented as of this encounter Visit Diagnoses Not on filedocumented in this encounter Care Teams Chimney Builder Brick Relationship Specialty Start Date End Date Leonor Hendricks MD [address] [place] [address] PCP - General Family Medicine 11/27/16 documented as of this encounter
--- OUTSIDE RECORDS SUMMARY | 2024-06-19 14:48 | XMS_ITS | Encounter Summary ---
Author Organization Formerly [facility] [place] [address] Care Team Providers Care Community Assistant Name Role Phone Leonor Hendricks MD Primary Care Provider [phone] Reason for Visit * Reason Onset Date Comments Medication Refill 12/04/2022 Encounter Details Date Type Department Care Team (Late st Contact Info) Description 12/04/2022 Ref[place] [address] Keyla Katz, RN Social History Tobacco Use [...] AM EST TH Visit (TeleHealth) [place] [address] Blade Martinez MD [facility] [place] [address] 05/10/2025 4:30 PM EST Office Visit Dermatology at [place] [address] [place] [address] Andreas Richardson MD [address], [place] [address] documented as of this encounter Visit Diagnoses Not on filedocumented in this encounter Care Teams Community Assistant Relationship Specialty Start Date End Date Leonor Hendricks MD [address] [place] [address] PCP - General Family Medicine 11/27/16 documented as of this encounter
--- OUTSIDE RECORDS SUMMARY | 2024-06-19 14:48 | XMS_ITS | Encounter Summary ---
Author Organization [facility] [place] [address] Care Team Providers Care Ski Base Trimmer Name Role Phone Leonor Hendricks MD Primary Care Provider [phone] Reason for Visit * Reason Comments Follow-up Encounter Details Date Type Department Care Team (Late st Contact Info) Description 2022 4:15 PM EDT Office Visit Dermatology at [address] [address] Andreas Richardson MD [address] [facility], DAREK A DERMATOLOGY [place], [place] [id number] Psoriasis Social History Tobacco Use Types Packs/Day [...] AM EST TH Visit (TeleHealth) [place] [address] Blade Martinez MD [facility] [place] [place] [address] 05/10/2025 4:30 PM EST Office Visit Dermatology at [place] [address] [place] [address] Andreas Richardson MD [address], [place] [address] documented as of this encounter Visit Diagnoses Diagnosis Psoriasis Other psoriasis Type 2 diabetes mellitus with hyperglycemia, with long-term current use of insulin Misha's thyroiditis Chronic lymphocytic thyroiditis Vitamin D deficiency Unspecified vitamin D deficiency Hypertriglyceridemia Pure hyperglyceridemia documented in this encounter Care Teams Ski Base Trimmer Relationship Specialty Start Date End Date Leonor Hendricks MD [address] [place] [address] PCP - General Family Medicine 11/27/16 documented as of this encounter
--- OUTSIDE RECORDS SUMMARY | 2024-06-19 14:48 | XMS_ITS | Encounter Summary ---
Author Organization [facility] [place] [address] Care Team Providers Care Clinical Business Analyst Name Role Phone Leonor Hendricks MD Primary Care Provider [phone] Reason for Visit * Reason Comments Medication Refill Encounter Details Date Type Department Care Team (Late Contact Info) Description 01/20/2022 Refill [place] [address] Blade Martinez MD [facility] [place] [address] Social History Tobacco Use Types Packs/Day Years [...] AM EST TH Visit (TeleHealth) [place] [address] Blade Martinez MD [facility] [place] [address] 05/10/2025 4:30 PM EST Office Visit Dermatology at [address] [address] Andreas Richardson MD [address], [place] [address] documented as of this encounter Visit Diagnoses Not on filedocumented in this encounter Care Teams Clinical Business Analyst Relationship Specialty Start Date End Date Leonor Hendricks MD [address] [place] [address] PCP - General Family Medicine 11/27/16 documented as of this encounter
--- OUTSIDE RECORDS SUMMARY | 2024-06-19 14:48 | XMS_ITS | Encounter Summary ---
Author Organization Formerly [facility] [place] [address] Care Team Providers Care New Order Clerk Name Role Phone Leonor Hendricks MD Primary Care Provider [phone] Reason for Visit * Reason Onset Date Comments Medication Refill 10/25/2022 Encounter Details Date Type Department Care Team (Late st Contact Info) Description 10/25/2022 [place] [address] Keyla Katz, RN Social History Tobacco Use [...] AM EST TH Visit (TeleHealth) [place] [address] Blade Martinez MD [facility] [place] [address] 05/10/2025 4:30 PM EST Office Visit Dermatology at [place] [address] [place] [address] Andreas Richardson MD [address], [place] [address] documented as of this encounter Visit Diagnoses Not on filedocumented in this encounter Care Teams New Order Clerk Relationship Specialty Start Date End Date Leonor Hendricks MD [address] [place] [address] PCP - General Family Medicine 11/27/16 documented as of this encounter
--- OUTSIDE RECORDS SUMMARY | 2024-06-19 14:48 | XMS_ITS | Encounter Summary ---
Author Organization [facility] [place] [address] Care Team Providers Care Custodian Athletic Equipment Name Role Phone Leonor Hendricks MD Primary Care Provider [phone] Reason for Visit * Reason Comments Medication Refill Encounter Details Date Type Department Care Team (Late st Contact Info) Description 11/25/2023 Ref[place] [address] Darnell Mosquera MD [facility] [place] [address] Social History Tobacco Use Types Packs/Day Years [...] AM EST TH Visit (TeleHealth) [place] [address] Blade Martinez MD [facility] [place] [address] 05/10/2025 4:30 PM EST Office Visit Dermatology at [address] [phone] Andreas Richardson MD [address], DAREK A DERMATOLOGY [place], [place] [address] documented as of this encounter Visit Diagnoses Not on filedocumented in this encounter Care Teams Custodian Athletic Equipment Relationship Specialty Start Date End Date Leonor Hendricks MD [address] [place] [address] PCP - General Family Medicine 11/27/16 documented as of this encounter
--- OUTSIDE RECORDS SUMMARY | 2024-06-19 14:48 | XMS_ITS | Encounter Summary ---
Author Organization [facility] [place] [address] Care Team Providers Care Manager Web Name Role Phone Leonor Hendricks MD Primary Care Provider [phone] Reason for Visit * Reason Comments Medication Refill Encounter Details Date Type Department Care Team (Late st Contact Info) Description 2022 Refill [place] [address] Balde Martinez MD [facility] [place] [address] Uncontrolled type 2 diabetes mellitus with hyperglycemia, [...] 11:30 AM EST Visit (TeleHealth) [place] [address] Blade Martinez MD [facility] [place] [address] 05/10/2025 4:30 PM EST Office Visit Dermatology at [place] [address] [place] [address] Andreas Richardson MD [address], [place]ESSI [place] [address] documented as of this encounter Visit Diagnoses Diagnosis Uncontrolled type 2 diabetes mellitus with hyperglycemia, without long-term current use of insulin Type 2 diabetes mellitus with hyperglycemia, with long-term current use of insulin Misha's thyroiditis Chronic lymphocytic thyroiditis Vitamin D deficiency Unspecified vitamin D deficiency Hypertriglyceridemia Pure hyperglyceridemia documented in this encounter Care Teams Manager Web Relationship Specialty Start Date End Date Leonor Hendricks MD [address] [place] [address] PCP - General Family Medicine 11/27/16 documented as of this encounter
--- OUTSIDE RECORDS SUMMARY | 2024-06-19 14:48 | XMS_ITS | Encounter Summary ---
Author Organization [facility] [place] [address] Care Team Providers Care Oxygen Equipment Preparer Name Role Phone Leonor Hendricks MD Primary Care Provider [phone] Reason for Visit * Reason Onset Date Comments Medication Refill 01/01/2022 Encounter Details Date Type Department Care Team (Late st Contact Info) Description 01/01/2022 [place] [address] Keyla Katz, RN Social History Tobacco Use [...] AM EST TH Visit (TeleHealth) [place] [address] Blade Martinez MD [facility] [place] [address] 05/10/2025 4:30 PM EST Office Visit Dermatology at [place] [address] [place] [address] Andreas Richardson MD [address], [place] [address] documented as of this encounter Visit Diagnoses Not on filedocumented in this encounter Care Teams Oxygen Equipment Preparer Relationship Specialty Start Date End Date Leonor Hendricks MD [address] [place] [address] PCP - General Family Medicine 11/27/16 documented as of this encounter
--- OUTSIDE RECORDS SUMMARY | 2024-06-19 14:48 | XMS_ITS | Encounter Summary ---
Author Organization [facility] [place] [address] Care Team Providers Care Shovel Operator Name Role Phone Leonor Hendricks MD Primary Care Provider [phone] Reason for Visit * Reason Comments Medication Refill Encounter Details Date Type Department Care Team (Late st Contact Info) Description 12/15/2022 Refill Dermatology at [address] [address] Andreas Richardson MD [address] [place] [address], [place] [address] Social History Tobacco Use Types Packs/Day Years [...] AM EST TH Visit (TeleHealth) [place] [address] Blade Martinez MD [facility] [place] [address] 05/10/2025 4:30 PM EST Office Visit Dermatology at [address] [address] Andreas Richardson MD [address] [facility] [address], DARE[place] [address] documented as of this encounter Visit Diagnoses Not on filedocumented in this encounter Care Teams Shovel Operator Relationship Specialty Start Date End Date Leonor Hendricks MD [address] [place] [address] PCP - General Family Medicine 11/27/16 documented as of this encounter
--- OUTSIDE RECORDS SUMMARY | 2024-06-19 14:48 | XMS_ITS | Encounter Summary ---
Author Organization [facility] [place] [address] Care Team Providers Care Side Stitcher Name Role Phone Leonor Hendricks MD Primary Care Provider [phone] Encounter Details Date Type Department Care Team (Latest Contact Info) Description 09/19/2021 3:00 PM EDT TH Visit (TeleHealth) [place] [address] Blade Martinez MD [facility] [place] [address] Type 2 diabetes mellitus with hyperglycemia, with [...] in 3 months, she will do at [facility] 3. History of Misha's thyroiditis with [...] ICU for 8 days in Feb 2021 ([facility]), on BIPCP but no need for [...] for 8 days in Feb 2021 at [facility], on BIPCP but no need for [...] fat and controlled carb diet Labs at [facility] Date 10/25/20 11/22/20 01/03/21 Glucose 184 210 GFR 60 Cr 0.8 Triglyceride 1,037 374 380 Outside lab at [facility] Date 05/25/21 09/18/21 11/29/21 07/13/22 A1c [...] non-focal, no facial asymmetry. Outside lab at [facility] Date 05/25/21 09/18/21 11/29/21 07/13/22 A1c [...] am recommending this patient continue using a [employer] G6 CGM for personal use. Pt has [...] in 3 months, she will do at [facility] 3. History of Misha's thyroiditis with [...] AM EST TH Visit (TeleHealth) [place] [address] Blade Martinez MD [facility] [place] [address] 05/10/2025 4:30 PM EST Office Visit Dermatology at [place] [address] [place] [address] Andreas Richardson MD [address], [place] [address] documented as of this encounter Visit Diagnoses [...] hyperglyceridemia documented in this encounter Care Teams Side Stitcher Relationship Specialty Start Date End Date Leonor Hendricks MD [address] [place] [address] PCP - General Family Medicine 11/27/16 documented as of this encounter
--- OUTSIDE RECORDS SUMMARY | 2024-06-19 14:48 | XMS_ITS | Encounter Summary ---
Author Organization Former[facility] [place] [place] [address] Care Team Providers Care Revenue Stamp Cutter Name Role Phone Leonor Hendricks MD Primary Care Provider [phone] Reason for Visit * Reason Onset Date Comments Medication Refill 11/04/2021 Encounter Details Date Type Department Care Team (Late st Contact Info) Description 11/04/2021 [place] [address] Blade Martinez MD [facility] [place] [address] Uncontrolled type 2 diabetes mellitus with hyperglycemia, [...] AM EST TH Visit (TeleHealth) [place] [address] Blade Martinez MD [facility] [address] 05/10/2025 4:30 PM EST Office Visit Dermatology at [place] [address] [place] [address] Andreas Richardson MD [address], [place] [address] documented as of this encounter Visit Diagnoses Diagnosis Uncontrolled type 2 diabetes mellitus with hyperglycemia, without long-term current use of insulin Type 2 diabetes mellitus with hyperglycemia, with long-term current use of insulin Misha's thyroiditis Chronic lymphocytic thyroiditis Vitamin D deficiency Unspecified vitamin D deficiency Hypertriglyceridemia Pure hyperglyceridemia documented in this encounter Care Teams Revenue Stamp Cutter Relationship Specialty Start Date End Date Leonor Hendricks MD [address] [place] [address] PCP - General Family Medicine 11/27/16 documented as of this encounter
--- OUTSIDE RECORDS SUMMARY | 2024-06-19 14:48 | XMS_ITS | Encounter Summary ---
Author Organization [facility] [place] [address] Care Team Providers Care Fabrication And Layout Craftsman Name Role Phone Leonor Hendricks MD Primary Care Provider [phone] Encounter Details Date Type Department Care Team (Late st Contact Info) Description 04/08/2023 Refill Dermatology at [address] [address] Baylee Mart, SPECIAL PROJECTS MANAGER Social History Tobacco Use Types Packs/Day Years [...] AM EST TH Visit (TeleHealth) [place] [address] Blade Martinez MD [facility] [place] [address] 05/10/2025 4:30 PM EST Office Visit Dermatology at [address] [address] Andreas Richardson MD [address] [place] [address], DAREK A DERMATOLOGY [place], [place] [address] documented as of this encounter Visit Diagnoses Not on filedocumented in this encounter Care Teams Fabrication And Layout Craftsman Relationship Specialty Start Date End Date Leonor Hendricks MD [address] [place] [address] PCP - General Family Medicine 11/27/16 documented as of this encounter
--- OUTSIDE RECORDS SUMMARY | 2024-06-19 14:48 | XMS_ITS | Encounter Summary ---
[place] [address] Care Team Providers Care Gullet Slitter Name Role Phone Leonor Hendricks MD Primary Care Provider [phone] Reason for Visit * Reason Onset Date Comments Prior Authorization 11/03/2021 Encounter Details Date Type Department Care Team (Late st Contact Info) Description 11/03/2021 [place] [address] Reva Sun Prior Authorization Social History Tobacco [...] 12:52 PM EDT Office notes routed to [facility] [phone] * Telephone Encounter - Antoinette Mayfield CMA - 11/17/2021 9:25 AM EDT Images from the original note were not included. * Telephone Encounter - Reva Sun - 11/15/2021 2:54 PM EDT Additional information routed [phone] * Telephone Encounter - Reva Sun - 11/03/2021 10:06 AM EDT Images from the original note were not included. Medication Prior Authorization Juan Medication name/dose/directions: Dexcom Sensor Rationale for request: Tpye II DM Health plan: JE[employer]UL (FORMERLY [facility]) Authorizing resources representative name: Naima Sent to health plan on: 11/03/21 Health plan decision: Denied Quantity approved: Authorization number: [id number] Start date: End date: * Telephone Encounter - Reva Sun - 11/03/2021 7:20 AM EDT Images from the original note were not included. Received PA for dexcom sensor Will complete as soon as possible documented in this encounter Plan of Treatment Upcoming Encounters Date Type Department Care Team (Late st Contact Info) Description 06/23/2024 11:30 AM EST TH Visit (TeleHealth) [place] [address] Blade Martinez MD [facility] [place] [address] 05/10/2025 4:30 PM EST Office Visit Dermatology at [place] [address] [facility] [place] [address] Andreas Richardson MD [address] [facility], [place] [address] documented as of this encounter Visit Diagnoses Not on filedocumented in this encounter Care Teams Gullet Slitter Relationship Specialty Start Date End Date Leonor Hendricks MD [address] [place] [address] PCP - General Family Medicine 11/27/16 documented as of this encounter
--- OUTSIDE RECORDS SUMMARY | 2024-06-19 14:48 | XMS_ITS | Encounter Summary ---
Author Organization [facility] [place] [address] Care Team Providers Care Healthcare Administrator Name Role Phone Leonor Hendricks MD Primary Care Provider [phone] Reason for Visit * Reason Onset Date Comments Medication Refill 05/27/2023 Encounter Details Date Type Department Care Team (Late st Contact Info) Description 05/27/2023 Ref[place] [address] Keyla Katz, RN Social History Tobacco Use [...] AM EST TH Visit (TeleHealth) [place] [address] Blade Martinez MD [facility] [place] [address] 05/10/2025 4:30 PM EST Office Visit Dermatology at [place] [address] [facility] [place] [address] Andreas Richardson MD [address], [place] [address] documented as of this encounter Visit Diagnoses Not on filedocumented in this encounter Care Teams Healthcare Administrator Relationship Specialty Start Date End Date Leonor Hendricks MD [address] [place] [address] PCP - General Family Medicine 11/27/16 documented as of this encounter
--- OUTSIDE RECORDS SUMMARY | 2024-06-19 14:48 | XMS_ITS | Encounter Summary ---
Author Organization [facility] [place] [address] Care Team Providers Care Jitney Driver Name Role Phone Leonor Hendricks MD Primary Care Provider [phone] Reason for Visit * Reason Comments Medication Refill Encounter Details Date Type Department Care Team (Late st Contact Info) Description 01/23/2023 [place] [address] Blade Martinez MD [facility] [place] [address] Uncontrolled type 2 diabetes mellitus with hyperglycemia, [...] 11:30 AM EST Visit (TeleHealth) [place] [address] Blade Martinez MD [facility] [place] [address] 05/10/2025 4:30 PM EST Office Visit Dermatology at [place] [address] [place] [address] Andreas Richardson MD [address] [facility] [address], MESSI Christian[place] [address] documented as of this encounter Visit Diagnoses Diagnosis Uncontrolled type 2 diabetes mellitus with hyperglycemia, without long-term current use of insulin Type 2 diabetes mellitus with hyperglycemia, with long-term current use of insulin Misha's thyroiditis Chronic lymphocytic thyroiditis Vitamin D deficiency Unspecified vitamin D deficiency Hypertriglyceridemia Pure hyperglyceridemia documented in this encounter Care Teams Jitney Driver Relationship Specialty Start Date End Date Leonor Hendricks MD [address] [place] [address] PCP - General Family Medicine 11/27/16 documented as of this encounter
--- OUTSIDE RECORDS SUMMARY | 2024-06-19 14:48 | XMS_ITS | Encounter Summary ---
Author Organization [facility] [place] [address] Care Team Providers Care Pest Control Service Sales Agent Name Role Phone Leonor Hendricks MD Primary Care Provider [phone] Encounter Details Date Type Department Care Team [...] AM EST TH Visit (TeleHealth) [place] [address] Blade Martinez MD [facility] [place] [address] 05/10/2025 4:30 PM EST Office Visit Dermatology at [place] [address] [facility] [place] [address] Andreas Richardson MD [address] [facility], [place] [address] documented as of this encounter Visit Diagnoses Not on filedocumented in this encounter Care Teams Pest Control Service Sales Agent Relationship Specialty Start Date End Date Leonor Hendricks MD [address] [place] [address] PCP - General Family Medicine 11/27/16 documented as of this encounter
--- OUTSIDE RECORDS SUMMARY | 2024-06-19 14:48 | XMS_ITS | Encounter Summary ---
Author Organization [facility] [place] [address] Care Team Providers Care Sales And Marketing Specialist Name Role Phone Leonor Hendricks MD Primary Care Provider [phone] Reason for Visit * Reason Onset Date Comments Medication Refill 12/21/2021 Encounter Details Date Type Department Care Team (Late Contact Info) Description 12/21/2021 Refill [place] [address] Keyla Katz RN Uncontrolled type 2 diabetes mellitus with [...] Encounters Date Type Department Care Team (Late Contact Info) Description 06/23/2024 11:30 AM EST TH Visit (TeleHealth) [place] [address] [facility] [place] [address] 05/10/2025 4:30 PM EST Office Visit Dermatology at [address] [address] Andreas Richardson MD [address], [place] [address] documented as of this encounter Visit Diagnoses Diagnosis Uncontrolled type 2 diabetes mellitus with hyperglycemia, without long-term current use of insulin Type 2 diabetes mellitus with hyperglycemia, with long-term current use of insulin Misha's thyroiditis Chronic lymphocytic thyroiditis Vitamin D deficiency Unspecified vitamin D deficiency Hypertriglyceridemia Pure hyperglyceridemia documented in this encounter Care Teams Sales And Marketing Specialist Relationship Specialty Start Date End Date Leonor Hendricks MD [address] [place] [address] PCP - General Family Medicine 11/27/16 documented as of this encounter
--- OUTSIDE RECORDS SUMMARY | 2024-06-19 14:48 | XMS_ITS | Encounter Summary ---
Author Organization [facility] [place] [address] Care Team Providers Care Sloop Captain Name Role Phone Leonor Hendricks MD Primary Care Provider [phone] Reason for Visit * Reason Onset Date Comments Medication Refill 02/05/2023 Encounter Details Date Type Department Care Team (Late st Contact Info) Description 02/05/2023 [place] [address] Keyla Katz, RN Social History Tobacco Use [...] AM EST TH Visit (TeleHealth) [place] [address] Blade Martinez MD [facility] [place] [address] 05/10/2025 4:30 PM EST Office Visit Dermatology at [place] [address] [place] [address] Andreas Richardson MD [address], [place] [address] documented as of this encounter Visit Diagnoses Not on filedocumented in this encounter Care Teams Sloop Captain Relationship Specialty Start Date End Date Leonor Hendricks MD [address] [place] [address] PCP - General Family Medicine 11/27/16 documented as of this encounter
--- OUTSIDE RECORDS SUMMARY | 2024-06-19 14:48 | XMS_ITS | Encounter Summary ---
[place] [address] Care Team Providers Care Subassembler Name Role Phone Leonor Hendricks MD Primary Care Provider [phone] Encounter Details Date Type Department Care Team (Late st Contact Info) Description 12/09/2023 [place]phone [place] [address] Crystal Woodard RN Social History Tobacco Use [...] - 12/09/2023 1:23 PM EDT Copied from [facility] #[id number]. Topic: Specialty Dept CRMs - Generic Call >> Dec 09, 2023 11:57 AM Josee Mac wrote: Specialist: Endocrinology Relationship (if other than patient-full name): César - ELENI Reason for Call: Patient has appointment to have labs drawn but they do not have lab orders. Pleasefax lab orders to [phone] documented in this encounter Plan of Treatment Upcoming Encounters Date Type Department Care Team (Late st Contact Info) Description 06/23/2024 11:30 AM EST TH Visit (TeleHealth) [place] [address] Blade Martinez MD [facility] [place] [address] 05/10/2025 4:30 PM EST Office Visit Dermatology at [place] [address] [place] [address] Andreas Richardson MD [address], [place] [address] documented as of this encounter Visit Diagnoses Not on filedocumented in this encounter Care Teams Subassembler Relationship Specialty Start Date End Date Leonor Hendricks MD [address] [place] [address] PCP - General Family Medicine 11/27/16 documented as of this encounter
--- OUTSIDE RECORDS SUMMARY | 2024-06-19 14:48 | XMS_ITS | Encounter Summary ---
Author [facility] [place] [address] Care Team Providers Care Dermatology Specialist Name Role Phone Leonor Hendricks MD Primary Care Provider [phone] Reason for Visit * Reason Comments Follow-up Encounter Details Date Type Department Care Team (Late st Contact Info) Description 12/21/2021 4:30 PM EDT Office Visit Dermatology at [address] [phone] Andreas Richardson MD [address] [facility] [place] [address] Psoriasis Social History Tobacco Use Types Packs/Day [...] AM EST TH Visit (TeleHealth) [place] [address] Blade Martinez MD [facility] [place] [address] 05/10/2025 4:30 PM EST Office Visit Dermatology at [address] [address] Andreas Richardson MD [address] [facility] [place] [address] documented as of this encounter Visit Diagnoses Diagnosis Psoriasis Other psoriasis Type 2 diabetes mellitus with hyperglycemia, with long-term current use of insulin Misha's thyroiditis Chronic lymphocytic thyroiditis Vitamin D deficiency Unspecified vitamin D deficiency Hypertriglyceridemia Pure hyperglyceridemia documented in this encounter Care Teams Dermatology Specialist Relationship Specialty Start Date End Date Leonor Hendricks MD [address] [place] [address] PCP - General Family Medicine 11/27/16 documented as of this encounter
--- OUTSIDE RECORDS SUMMARY | 2024-06-19 14:49 | XMS_ITS | Encounter Summary ---
Author Organization [facility] [place] [address] Care Team Providers Care Manufacturing Engineering Director Name Role Phone Leonor Hendricks MD Primary Care Provider [phone] Encounter Details Date Type Department Care Team (Latest Contact Info) Description 01/06/2021 1:30 PM EDT TH Visit (TeleHealth) [place] [address] Blade Martinez MD [facility] [place] [place] [address] PATIENT NOT SEEN Social History Tobacco Use [...] AM EST TH Visit (TeleHealth) [place] [address] Blade Martinez MD [facility] [place] [address] 05/10/2025 4:30 PM EST Office Visit Dermatology at [place] [address] [place] [address] Andreas Richardson MD [address] [facility], [place] [address] documented as of this encounter Visit Diagnoses Diagnosis DH PATIENT NOT SEEN Type 2 diabetes mellitus with hyperglycemia, with long-term current use of insulin Misha's thyroiditis Chronic lymphocytic thyroiditis Vitamin D deficiency Unspecified vitamin D deficiency Hypertriglyceridemia Pure hyperglyceridemia documented in this encounter Care Teams Manufacturing Engineering Director Relationship Specialty Start Date End Date Leonor Hendricks MD [address] [place] [address] PCP - General Family Medicine 11/27/16 documented as of this encounter
--- OUTSIDE RECORDS SUMMARY | 2024-06-19 14:49 | XMS_ITS | Encounter Summary ---
Author [facility] [place] [address] Care Team Providers Care End Finder Twisting Department Name Role Phone Leonor Hendricks MD Primary Care Provider [phone] Encounter Details Date Type Department Care Team (Late st Contact Info) Description 06/13/2021 4:00 PM EST Office Visit Dermatology at [address] [address] Andreas Richardson MD [address] [facility], [place] [address] Psoriasis Social History Tobacco Use Types Packs/Day [...] EST TH Visit (TeleHealth) [place] [address] Blade Martinez MD [facility] [place] [address] 05/10/2025 4:30 PM EST Office Visit Dermatology at [place] [address] [place] [place] [address] Andreas Richardson MD [address], [place] [address] documented as of this encounter Visit Diagnoses Diagnosis Psoriasis Other psoriasis Type 2 diabetes mellitus with hyperglycemia, with long-term current use of insulin Misha's thyroiditis Chronic lymphocytic thyroiditis Vitamin D deficiency Unspecified vitamin D deficiency Hypertriglyceridemia Pure hyperglyceridemia documented in this encounter Care Teams End Finder Twisting Department Relationship Specialty Start Date End Date Leonor Hendricks MD [address] [place] [address] PCP - General Family Medicine 11/27/16 documented as of this encounter
--- OUTSIDE RECORDS SUMMARY | 2024-06-19 14:49 | XMS_ITS | Encounter Summary ---
Author Organization [facility] [place] [address] Care Team Providers Care Life Sciences Manager Name Role Phone Leonor Hendricks MD Primary Care Provider [phone] Reason for Visit * Reason Comments Medication Refill Encounter Details Date Type Department Care Team (Late st Contact Info) Description 08/08/2019 [place] [address] Yareli Morales MD Social History Tobacco Use Types Packs/Day [...] AM EST TH Visit (TeleHealth) [place] [address] Blade Martinez MD [facility] [place] [address] 05/10/2025 4:30 PM EST Office Visit Dermatology at [place] [address] [facility] [place] [address] Andreas Richardson MD [address] [facility] [address], [place] [address] documented as of this encounter Visit Diagnoses Not on filedocumented in this encounter Care Teams Life Sciences Manager Relationship Specialty Start Date End Date Leonor Hendricks MD [address] [place] [address] PCP - General Family Medicine 11/27/16 documented as of this encounter
--- OUTSIDE RECORDS SUMMARY | 2024-06-19 14:49 | XMS_ITS | Encounter Summary ---
Author Organization [facility] [place] [address] Care Team Providers Care Licensed Nurse Practitioner Name Role Phone Leonor Hendricks MD Primary Care Provider [phone] Encounter Details Date Type Department Care Team (Late st Contact Info) Description 10/12/2020 Ref[place] [address] Leonel Escobedo RN Social History Tobacco Use [...] AM EST TH Visit (TeleHealth) [place] [address] Blade Martinez MD [facility] [place] [address] 05/10/2025 4:30 PM EST Office Visit Dermatology at [place] [address] [place] [address] Andreas Richardson MD [address] [address], [place] [address] documented as of this encounter Visit Diagnoses Not on filedocumented in this encounter Care Teams Licensed Nurse Practitioner Relationship Specialty Start Date End Date Leonor Hendricks MD [address] [place] [address] PCP - General Family Medicine 11/27/16 documented as of this encounter
--- OUTSIDE RECORDS SUMMARY | 2024-06-19 14:49 | XMS_ITS | Encounter Summary ---
Author Organization [facility] [place] [address] Care Team Providers Care Assistant Analyst Name Role Phone Leonor Hendricks MD Primary Care Provider Encounter Details Date Type Department Care Team (Late st Contact Info) Description 04/14/2021 Telephone Sleep [facility] at [facility] [address] [place] [address] Subha Kulkarni, RN Social History Tobacco Use [...] AM EST TH Visit (TeleHealth) [place] [address] Blade Martinez MD [facility] [place] [address] 05/10/2025 4:30 PM EST Office Visit Dermatology at [place] [address] [facility] [place] [address] Andreas Richardson MD [address] [facility], [place] [address] documented as of this encounter Visit Diagnoses Diagnosis MAGDALENE on CPAP Obstructive sleep apnea (adult) (pediatric) Type 2 diabetes mellitus with hyperglycemia, with long-term current use of insulin Misha's thyroiditis Chronic lymphocytic thyroiditis Vitamin D deficiency Unspecified vitamin D deficiency Hypertriglyceridemia Pure hyperglyceridemia documented in this encounter Care Teams Assistant Analyst Relationship Specialty Start Date End Date Leonor Hendricks MD [address] [place] [address] PCP - General Family Medicine 11/27/16 documented as of this encounter
--- OUTSIDE RECORDS SUMMARY | 2024-06-19 14:49 | XMS_ITS | Encounter Summary ---
Author Organization [facility] [place] [address] Care Team Providers Care Printing Agent Name Role Phone Leonor Hendricks MD Primary Care Provider [phone] Encounter Details Date Type Department Care Team (Latest Contact Info) Description 10/26/2020 8:30 AM EDT TH Visit (TeleHealth) [place] [address] Yareli Morales MD Hypertriglyceridemia ; Type 2 diabetes mellitus without [...] PCP because her triglycerides were in the . I started her on fenofibrate - she [...] --repeat fasting lipid profile and BMP at [facility] in 1 week (next Tuesday 10/24). --telehealth follow-up appointment next week on SaturdayOctober 26 at 8:30am. Fasting labs 10/25/[address] [facility] Glucose 184 GFR 60 Triglycerides 1037 FSBG [...] ophtho evaluation - sees Dr. Martin at [facility], no DR (August 2018). Currently office [...] in 2 weeks, she will do at [facility] 3. Follow-up - since I am leaving [facility] in a few weeks, we discussed transition of care to my colleague Dr. Martinez with telehealth appt in 1 month. I'll touch base with Jesika about her bloodwork in2 weeks -- I asked her to send me a [employer] message with her results, to expedite the process. Total time spent on visit including face to face time with patient, placing orders and documentation was 45 minutes. YARELI MORALES MD Banking Attorneyfilm touch up inspector Section of Endocrinology [facility] documented in this encounter Plan of Treatment Upcoming Encounters Date Type Department Care Team (Late st Contact Info) Description 06/23/2024 11:30 AM EST TH Visit (TeleHealth) [place] [address] Blade Martinez MD [facility] [place] [address] 05/10/2025 4:30 PM EST Office Visit Dermatology at [place] [address] [facility] [place] [address] Andreas Richardson MD [address] [facility] [address], [place] [address] documented as of this encounter Visit Diagnoses Diagnosis Hypertriglyceridemia Pure hyperglyceridemia Type 2 diabetes mellitus without complication, without long-term current use of insulin Type 2 diabetes mellitus with hyperglycemia, with long-term current use of insulin Misha's thyroiditis Chronic lymphocytic thyroiditis Vitamin D deficiency Unspecified vitamin D deficiency Hypertriglyceridemia Pure hyperglyceridemia documented in this encounter Care Teams Printing Agent Relationship Specialty Start Date End Date Leonor Hendricks MD [address] [place] [address] PCP - General Family Medicine 11/27/16 documented as of this encounter
--- OUTSIDE RECORDS SUMMARY | 2024-06-19 14:49 | XMS_ITS | Encounter Summary ---
Author Organization [facility] [place] [address] Care Team Providers Care Mail Agent Name Role Phone Leonor Hendricks MD Primary Care Provider [phone] Encounter Details Date Type Department Care Team (Late st Contact Info) Description 10/14/2019 [place] [address] Karime Lamas, [facility] Social History Tobacco Use Types Packs/Day Years [...] Notes * Telephone Encounter - Karime Lamas, [facility] - 10/14/2019 9:56 AM EDT [employer] Setter Pre-Telemedicine Phone Note [] Patient not reached [x] Patient reached and the following information was reviewed/obtained per protocol: [x] Confirmed patient name and date of [] Confirmed telemedicine ashvin (Vidyo and Virtual Visit) is downloaded and functioning [x] Confirmed location of patient - TeleVisit is taking place in [x] [place] [] [place] [] If not on [facility], working on signing up for [facility] [] Confirmed has completed any pre-visit questionnaires [] If has not received required pre-visit questionnaires, send via [facility] [x] Reviewed patient medications [x] Documented self-reported vitals: [] Weight: 232lbs [] Height 53 [] pulse recorded: [] Other information or concerns documented in this encounter Plan of Treatment Upcoming Encounters Date Type Department Care Team (Late st Contact Info) Description 06/23/2024 11:30 AM EST TH Visit (TeleHealth) [place] [address] Blade Martinez MD [facility] [place] [address] 05/10/2025 4:30 PM EST Office Visit Dermatology at [place] [address] [place] [address] Andreas Richardson MD [address], [place] [address] documented as of this encounter Visit Diagnoses Not on filedocumented in this encounter Care Teams Mail Agent Relationship Specialty Start Date End Date Leonor Hendricks MD [address] [place] [address] PCP - General Family Medicine 11/27/16 documented as of this encounter
--- OUTSIDE RECORDS SUMMARY | 2024-06-19 14:49 | XMS_ITS | Encounter Summary ---
Author Organization [facility] [place] [address] Care Team Providers Care Sap Bobj Developer Name Role Phone Leonor Hendricks MD Primary Care Provider [phone] Encounter Details Date Type Department Care Team (Latest Contact Info) Description 05/24/2021 11:30 AM EST TH Visit (TeleHealth) [place] [address] Blade Martinez MD [facility] [place] [address] Misha's thyroiditis; Type 2 diabetes mellitus with [...] months, she will do at [facility] 3. History of Misha's thyroiditis with obesity [...] days in Feb 2021 at [facility], on BIPCP but no need forintubation with [...] controlled carb diet Fasting labs at [facility] Date 10/25/20 11/22/20 01/03/21 Glucose 184 210 [...] ophtho evaluation - sees Dr. Martin at [facility], no DR (August 2018). 4) CV [...] asymmetry. Addendum 05/26/21: Outside lab at [facility] after the visit Date 05/25/21 A1c 8.1, [...] am recommending this patient continue using a [employer] G6 CGM for personal use. Pt has [...] months, she will do at [facility] 3. History of Misha's thyroiditis with obesity [...] AM EST TH Visit (TeleHealth) [place] [address] Blade Martinez MD [facility] [place] [address] 05/10/2025 4:30 PM EST Office Visit Dermatology at [place] [address] [place] [address] Andreas Richardson MD [address], [place] [address] documented as of this encounter Visit Diagnoses [...] hyperglyceridemia documented in this encounter Care Teams Sap Bobj Developer Relationship Specialty Start Date End Date Leonor Hendricks MD [address] [place] [address] PCP - General Family Medicine 11/27/16 documented as of this encounter
--- OUTSIDE RECORDS SUMMARY | 2024-06-19 14:49 | XMS_ITS | Encounter Summary ---
Author Organization [facility] [place] [address] Care Team Providers Care Touch Up Edger Name Role Phone Leonor Hendricks MD Primary Care Provider [phone] Reason for Visit * Reason Onset Date Comments Medication Refill 08/26/2019 Encounter Details Date Type Department Care Team (Late st Contact Info) Description 08/26/2019 Ref[place] [address] Yareli Morales MD Social History Tobacco Use [...] AM EST TH Visit (TeleHealth) [place] [address] Blade Martinez MD [facility] [place] [address] 05/10/2025 4:30 PM EST Office Visit Dermatology at [place] [address] [place] [address] Andreas Richardson MD [address], [place] [address] documented as of this encounter Visit Diagnoses Not on filedocumented in this encounter Care Teams Touch Up Edger Relationship Specialty Start Date End Date Leonor Hendricks MD [address] [place] [address] PCP - General Family Medicine 11/27/16 documented as of this encounter
--- OUTSIDE RECORDS SUMMARY | 2024-06-19 14:49 | XMS_ITS | Encounter Summary ---
Author Organization [facility] [place] [address] Care Team Providers Care Bean Snapper Name Role Phone Leonor Hendricks MD Primary Care Provider [phone] Reason for Visit * Reason Onset Date Comments Medication Refill 07/09/2019 Encounter Details Date Type Department Care Team (Late st Contact Info) Description 07/09/2019 [place] [address] Autumn Kilpatrick MD Social History Tobacco Use Types Packs/Day [...] AM EST TH Visit (TeleHealth) [place] [address] Blade Martinez MD [facility] [place] [place] [address] 05/10/2025 4:30 PM EST Office Visit Dermatology at [place] [address] [place] [address] Andreas Richardson MD [address], [place] [address] documented as of this encounter Visit Diagnoses Not on filedocumented in this encounter Care Teams Bean Snapper Relationship Specialty Start Date End Date Leonor Hendricks MD [address] [place] [address] PCP - General Family Medicine 11/27/16 documented as of this encounter
--- OUTSIDE RECORDS SUMMARY | 2024-06-19 14:49 | XMS_ITS | Encounter Summary ---
[place] [address] Care Team Providers Care Supply Chain Assistant Name Role Phone Leonor Hendricks MD Primary Care Provider [phone] Encounter Details Date Type Department Care Team (Latest Contact Info) Description 10/12/2020 9:00 AM EDT TH Visit (TeleHealth) [place] [phone] Yareli Morales MD Type 2 diabetes mellitus without complication, without [...] the pharmacy right after this appointment to spanish moss picker the insulin and she will start taking it right away. She did spanish moss picker the fenofibrate and took first dose [...] [facility], no DR (August 2018). Currently office [...] daily --fasting labs to be done at [facility] later this week. She plans to [...] documentation was 45 minutes. YARELI MORALES MD Boom Crane Operatorrecreational therapy aide Section of Endocrinology [facility] documented in this encounter Plan of Treatment Upcoming Encounters Date Type Department Care Team (Late st Contact Info) Description 06/23/2024 11:30 AM EST TH Visit (TeleHealth) [place] [address] Blade Martinez MD [facility] [place] [address] 05/10/2025 4:30 PM EST Office Visit Dermatology at [place] [address] [facility] [place] [address] Andreas Richardson MD [address], [place] [address] documented as of this encounter Visit Diagnoses Diagnosis Type 2 diabetes mellitus without complication, without long-term current use of insulin Hypertriglyceridemia Pure hyperglyceridemia Misha's thyroiditis Chronic lymphocytic thyroiditis Type 2 diabetes mellitus with hyperglycemia, with long-term current use of insulin Misha's thyroiditis Chronic lymphocytic thyroiditis Vitamin D deficiency Unspecified vitamin D deficiency Hypertriglyceridemia Pure hyperglyceridemia documented in this encounter Care Teams Supply Chain Assistant Relationship Specialty Start Date End Date Leonor Hendricks MD [address] [place] [address] PCP - General Family Medicine 11/27/16 documented as of this encounter
--- OUTSIDE RECORDS SUMMARY | 2024-06-19 14:49 | XMS_ITS | Encounter Summary ---
Author [facility] [place] [address] Care Team Providers Care Lead Web Application Developer Name Role Phone Leonor Hendricks MD Primary Care Provider [phone] Encounter Details Date Type Department Care Team (Late st Contact Info) Description 01/13/2021 Telephone [place] [address] Kierra Mckeon Social History Tobacco Use Types [...] pt booked - when booked please let master technician know Return in about 2 months (around 03/16/2021) for Telehealth next visit. documented in this encounter Plan of Treatment Upcoming Encounters Date Type Department Care Team (Late st Contact Info) Description 06/23/2024 11:30 AM EST TH Visit (TeleHealth) [place] [address] Blade Martinez MD [facility] [place] [address] 05/10/2025 4:30 PM EST Office Visit Dermatology at [place] [address] [facility] [place] [address] Andreas Richardson MD [address], [place] [address] documented as of this encounter Visit Diagnoses Not on filedocumented in this encounter Care Teams Lead Web Application Developer Relationship Specialty Start Date End Date Leonor Hendricks MD [address] [place] [address] PCP - General Family Medicine 11/27/16 documented as of this encounter
--- OUTSIDE RECORDS SUMMARY | 2024-06-19 14:49 | XMS_ITS | Encounter Summary ---
Author Organization [facility] [place] [address] Care Team Providers Care Core Inserter Name Role Phone Leonor Hendricks MD Primary Care Provider [phone] Reason for Visit * Reason Comments Chest Pain Encounter Details Date Type Department Care Team (Latest Contact Info) Description 05/09/2020 3:00 PM EST Ext Surgery or Single Event [address] [place] [phone] Keith Gómez MD [facility] [address] Chest pain, unspecified type Social History Tobacco [...] AM EST TH Visit (TeleHealth) [place] [address] Blade Martinez MD [facility] [place] [address] 05/10/2025 4:30 PM EST Office Visit Dermatology at [place] [address] [place] [address] Andreas Richardson MD [address], [place] [address] documented as of this encounter Procedures Procedure Name Priority Date/Time Associated Diagnosis Comments ECG SCAN 05/09/2020 12:00 AM EST STRESS TEST, EXERCISE (TREADMILL) Routine 05/09/2020 documented in this encounter Results * Stress Test, Exercise (Treadmill) (05/09/2020) Anatomical Region Laterality Modality Other Narrative 05/09/2020 Exercise Stress Test- Final Report ?? Jesika Ryan : 1970 [facility] Referring: [email or web address] Indication: chest pain Date: 05/09/2020 Details: Medication: [...] Visit Diagnoses Diagnosis Chest pain, unspecified type Type 2 diabetes mellitus with hyperglycemia, with long-term current use of insulin Misha's thyroiditis Chronic lymphocytic thyroiditis Vitamin D deficiency Unspecified vitamin D deficiency Hypertriglyceridemia Pure hyperglyceridemia documented in this encounter Care Teams Core Inserter Relationship Specialty Start Date End Date Leonor Hendricks MD [address] [place] [address] PCP - General Family Medicine 11/27/16 documented as of this encounter
--- OUTSIDE RECORDS SUMMARY | 2024-06-19 14:49 | XMS_ITS | Encounter Summary ---
[place] [address] Care Team Providers Care Unpaid Intern Name Role Phone Leonor Hendricks MD Primary Care Provider [phone] Encounter Details Date Type Department Care Team (Late st Contact Info) Description 01/08/2019 1:00 PM EDT Office Visit [place] [address] Yareli Morales MD Type 2 diabetes mellitus [...] hypothyroidism HISTORY OF PRESENT ILLNESS: Ms. Jesika yRan is a 47 y.o. year old lady [...] ophtho evaluation - sees Dr. Martin at [facility], no DR (August 2018) 4) CV [...] gauge x 5/32 Needle 1 each by [facility].(Non-Drug; Combo Route) route daily. Yes norethindrone (AYGESTIN) 5 mg Tablet TAKE ONE TABLET IN THE MORNING AND ONE IN THE EVENING UNTIL THE BLEEDING STOPS. THEN TAKE ONE TABLET DAILY. Yes escitalopram (LEXAPRO) 20 mg Tablet Take 20 mg by mouth daily. Yes ALLERGIES: Allergies Allergen Reactions ??? Stelara [Ustekinumab] Other (See Comments) Yqjinzihh-bewotdi-kmqxwexpo SOCIAL HISTORY: Social History Tobacco Use Smoking [...] Office Visit from 01/08/2019 in Endocrinology at [place] Weight 104.8 kg (231 lb) Height 162.6 [...] patient on DM mgmt. YARELI MORALES MD Wildlife Forensic Geneticistelectrotype molder Section of Endocrinology [facility] documented in this encounter Plan of Treatment Upcoming Encounters Date Type Department Care Team (Late st Contact Info) Description 06/23/2024 11:30 AM EST TH Visit (TeleHealth) [place] [address] Blade Martinez MD [facility] [place] [address] 05/10/2025 4:30 PM EST Office Visit Dermatology at [place] [address] [facility] [place] [address] Andreas Richardson MD [address], [place] [address] documented as of this encounter Visit Diagnoses Diagnosis Type 2 diabetes mellitus without complication, without long-term current use of insulin Misha's thyroiditis Chronic lymphocytic thyroiditis Type 2 diabetes mellitus with hyperglycemia, with long-term current use of insulin Misha's thyroiditis Chronic lymphocytic thyroiditis Vitamin D deficiency Unspecified vitamin D deficiency Hypertriglyceridemia Pure hyperglyceridemia documented in this encounter Care Teams Unpaid Intern Relationship Specialty Start Date End Date Leonor Hendricks MD [address] [place] [address] PCP - General Family Medicine 11/27/16 documented as of this encounter
--- OUTSIDE RECORDS SUMMARY | 2024-06-19 14:49 | XMS_ITS | Encounter Summary ---
Author Organization [facility] [place] [address] Care Team Providers Care Clam Shucking Machine Tender Name Role Phone Leonor Hendricks MD Primary Care Provider [phone] Reason for Visit * Reason Comments Medication Refill Encounter Details Date Type Department Care Team (Late st Contact Info) Description 07/26/2020 Refill [place] [address] Yareli Morales MD Social History Tobacco Use [...] AM EST TH Visit (TeleHealth) [place] [address] Blade Martinez MD [facility] [place] [address] 05/10/2025 4:30 PM EST Office Visit Dermatology at [place] [address] [place] [address] Andreas Richardson MD [address], [place] [address] documented as of this encounter Visit Diagnoses Not on filedocumented in this encounter Care Teams Clam Shucking Machine Tender Relationship Specialty Start Date End Date Leonor Hendricks MD [address] [place] [address] PCP - General Family Medicine 11/27/16 documented as of this encounter
--- OUTSIDE RECORDS SUMMARY | 2024-06-19 14:49 | XMS_ITS | Encounter Summary ---
Author Organization [facility] [place] [address] Care Team Providers Care Sales Analytics Manager Name Role Phone Leonor Hendricks MD Primary Care Provider [phone] Reason for Visit * Reason Comments Medication Refill Encounter Details Date Type Department Care Team (Late st Contact Info) Description 07/01/2019 [place] [address] Yareli Morales MD Social History Tobacco Use [...] AM EST TH Visit (TeleHealth) [place] [address] Blade Martinez MD [facility] [place] [address] 05/10/2025 4:30 PM EST Office Visit Dermatology at [place] [address] [facility] [place] [address] Andreas Richardson MD [address], [place] [address] documented as of this encounter Visit Diagnoses Not on filedocumented in this encounter Care Teams Sales Analytics Manager Relationship Specialty Start Date End Date Leonor Hendricks MD [address] [place] [address] PCP - General Family Medicine 11/27/16 documented as of this encounter
--- OUTSIDE RECORDS SUMMARY | 2024-06-19 14:49 | XMS_ITS | Encounter Summary ---
Author Organization [facility] [place] [address] Care Team Providers Care Marine Drafter Name Role Phone Leonor Hendricks MD Primary Care Provider [phone] Reason for Visit * Reason Comments Medication Refill Encounter Details Date Type Department Care Team (Late st Contact Info) Description 10/29/2020 [place] [address] Yareli Morales MD Social History Tobacco Use [...] AM EST TH Visit (TeleHealth) [place] [address] Blade Martinez MD [facility] [place] [address] 05/10/2025 4:30 PM EST Office Visit Dermatology at [place] [address] [facility] [address] Andreas Richardson MD [address], [place] [address] documented as of this encounter Visit Diagnoses Not on filedocumented in this encounter Care Teams Marine Drafter Relationship Specialty Start Date End Date Leonor Hendricks MD [address] [place] [address] PCP - General Family Medicine 11/27/16 documented as of this encounter
--- OUTSIDE RECORDS SUMMARY | 2024-06-19 14:49 | XMS_ITS | Encounter Summary ---
Author Organization [facility] [place] [address] Care Team Providers Care Hatchery Attendant Name Role Phone Leonor Hendricks MD Primary Care Provider [phone] Reason for Referral * Consultation (Urgent) - Closed Specialty Diagnoses / Procedures Referred By Contac t Referred To Contact Endocrinology Diagnoses Uncontrolled type 2 diabetes mellitus with hyperglycemia, without long-term current use of insulin Blade Martinez MD [facility] [place] [address] [facility] [place] [address] Referral ID Status Reason Start Date Expiration Date V isits Requested Visits Authorized [id number] Closed Continuity of Care 11/25/2020 11/25/2021 1 1 Encounter Details Date Type Department Care Team (Latest Contact Info) Description 11/25/2020 1:00 PM EDT TH Visit (TeleHealth) Endocrinology at [facility] [place] [address] Blade Martinez MD [facility] [place] [address] Uncontrolled type 2 diabetes mellitus with hyperglycemia, [...] soon To see Marta Iglesias RD our regional medical director for carb counting & CGM training/ download [...] 400 to have your insulin doses adjusted. [facility] Endocrine clinic office PLAN: 1. Type 2 [...] - To see Marta Iglesias RD our regional medical director for carb counting & CGM training/ download [...] in 6 weeks, she will do at [facility] 3. History of Misha's thyroiditis with [...] and low carb diet Fasting labs at [facility] Date 10/25/20 11/22/20 Glucose 184 210 [...] evaluation - sees Dr. Martin at [facility], no DR (August 2018). 4) CV [...] - To see Marta Iglesias RD our regional medical director for carb counting & CGM training/ download [...] in 6 weeks, she will do at [facility] 3. History of Misha's thyroiditis with [...] was 65 minutes. Blade Martinez MD, PhD, [facility] Insulin Instructions To start using Dexcom G6 [...] 400 to have your insulin doses adjusted. [facility] Endocrine clinic office documented in this encounter Plan of Treatment Upcoming Encounters Date Type Department Care Team (Late st Contact Info) Description 06/23/2024 11:30 AM EST TH Visit (TeleHealth) [place] [address] Blade Martinez MD [facility] [place] [place] [address] 05/10/2025 4:30 PM EST Office Visit Dermatology at [place] [address] [place] [address] Andreas Richardson MD [address], [place] [address] Scheduled Referrals Name Type Priority Associated Diagnoses [...] hyperglyceridemia documented in this encounter Care Teams Hatchery Attendant Relationship Specialty Start Date End Date Leonor Hendricks MD [address] [place] [address] PCP - General Family Medicine 11/27/16 documented as of this encounter
--- OUTSIDE RECORDS SUMMARY | 2024-06-19 14:49 | XMS_ITS | Encounter Summary ---
Author Organization [facility] [place] [address] Care Team Providers Care Cement Rubber Name Role Phone Leonor Hendricks MD Primary Care Provider [phone] Encounter Details Date Type Department Care Team (Latest Contact Info) Description 02/13/2021 2:00 PM EDT TH Visit (TeleHealth) Sleep Center at [facility] [address] [place] [address] Lucrecia Vang, ANTOINETTE MAGDALENE treated with BiPAP Social History Tobacco [...] ozone generating PAP cleaning device with the [employer] 1 machine --Contact us if patient develops [...] cover to reduce condensation in tube --Call [employer] company for questions on machine, supply replacements, [...] r/t recall. HPI continues below. Patient in [place], [place] Visit is by video Sleep Study [...] a severe degree (AHI of 93.9) noted. [facility] AHI of 40.2 which includes onlyapneas and [...] Strap: no HCC: 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 9 Device 3 ??? Dexcom G6 Client Strategist Misc 1 each by Misc.(Non-Drug; Combo Route) [...] unapproved cleaning methods (such as ozone generating special tax auditor). Advised to immediately register their machine on wood carving lathe operator website for repair or replacement. She has. Discussed that at this time, we believe that the benefit of CPAP likely outweighs the risk and thatthe wood carving lathe operator will replace or repair the machine. Patient indicates understanding of the situation. Advised to contact us if patient develops airway irritation symptoms, headaches or other symptoms that they feel may be related to CPAP use. Plan/recommendations below. Total time spent via telehealth with patient including charting, notes review, data download analysis, counseling and recommendations: 20 minutes Recommendations: --Please register your device on the [employer] web site, or by phoning them. --Do not buy or use a ozone generating PAP cleaning device with the [employer] 1 machine --Contact us if patient develops [...] cover to reduce condensation in tube --Call [employer] for questions on machine, supply replacements, billing [...] AM EST TH Visit (TeleHealth) [place] [address] Blade Martinez MD [facility] [place] [address] 05/10/2025 4:30 PM EST Office Visit Dermatology at [place] [address] [place] [address] Andreas Richardson MD [address], [place] [address] documented as of this encounter Visit Diagnoses Diagnosis MAGDALENE treated with BiPAP Type 2 diabetes mellitus with hyperglycemia, with long-term current use of insulin Misha's thyroiditis Chronic lymphocytic thyroiditis Vitamin D deficiency Unspecified vitamin D deficiency Hypertriglyceridemia Pure hyperglyceridemia documented in this encounter Care Teams Cement Rubber Relationship Specialty Start Date End Date Leonor Hendricks MD [address] [place] [address] PCP - General Family Medicine 11/27/16 documented as of this encounter
--- OUTSIDE RECORDS SUMMARY | 2024-06-19 14:49 | XMS_ITS | Encounter Summary ---
Author Organization [facility] [place] [address] Care Team Providers Care Business Services Officer Name Role Phone Leonor Hendricks MD Primary Care Provider [phone] Encounter Details Date Type Department Care Team (Late st Contact Info) Description 11/14/2018 2:30 PM EDT Office Visit Sleep Center at [facility] [address] [place] [address] Lucrecia Vang APRN MAGDALENE on CPAP Social History Tobacco Use [...] she is snoring and how often --Call [employer] company for questions on machine, supply replacements, billing, and for confirming compliance met --For dry mouth: 1) adjust humidity and/or heated tube temperature, 2) consider over the counter Biotene mouth rinse, 3) consider room humidifier --Printed handouts given to patient on Helpful PAP tips, supply replacement intervals --Driving safety discussed, recommend patient not drive if drowsy, if drowsy while driving, well puller and nap. --Follow-up: RTC 1 year [...] a severe degree (AHI of 93.9) noted. [facility] AHI of 40.2 which includes onlyapneas [...] no Symptoms Improved?: Patient-reported last 4 scores: [facility] 2016 09/26/2017 11/13/2018 [place] [facility] 7 6 5 Insomnia Severity Index [...] if she sits at home; she would well puller or not even drive if very [...] ??? insulin needles, disposable, 32 gauge x 532 Needle 1 each by [facility] [...] drive if drowsy, if drowsy while driving, well puller and nap. --Follow-up: RTC 1 year with [place] The patient indicates understanding of these issues and agrees with the plan. Lucrecia Vang APRN Cc: Leonor Hendricks MD documented in this encounter Plan of Treatment Upcoming Encounters Date Type Department Care Team (Late st Contact Info) Description 06/23/2024 11:30 AM EST TH Visit (TeleHealth) [place] [address] Blade Martinez MD [facility] [place] [address] 05/10/2025 4:30 PM EST Office Visit Dermatology at [place] [address] [place] [address] Andreas Richardson MD [address], [place] [address] documented as of this encounter Visit Diagnoses Diagnosis MAGDALENE on CPAP Obstructive sleep apnea (adult) (pediatric) Type 2 diabetes mellitus with hyperglycemia, with long-term current use of insulin Misha's thyroiditis Chronic lymphocytic thyroiditis Vitamin D deficiency Unspecified vitamin D deficiency Hypertriglyceridemia Pure hyperglyceridemia documented in this encounter Care Teams Business Services Officer Relationship Specialty Start Date End Date Leonor Hendricks MD [address] [place] [address] PCP - General Family Medicine 11/27/16 documented as of this encounter
--- OUTSIDE RECORDS SUMMARY | 2024-06-19 14:49 | XMS_ITS | Encounter Summary ---
Author Organization [facility] [place] [address] Care Team Providers Care Parimutuel Cashier Name Role Phone Leonor Hendricks MD Primary Care Provider [phone] Encounter Details Date Type Department Care Team (Late st Contact Info) Description 01/13/2021 1:30 PM EDT Office [place] [phone] Blade Martinez MD [facility] [place] [address] Misha's thyroiditis; Dyslipidemia; Type 2 diabetes mellitus [...] in 2 months, she will do at [facility] 3. History of Misha's thyroiditis with obesity [...] further management.. Blade Martinez MD, PhD, F[facility], [facility] Insulin [facility]ructions To start using Dexcom [...] juice or regular (not diet) soda 6 [employer] small box of raisins 4 glucose tablets [...] 400 to have your insulin doses adjusted. [facility] Endocrine clinic office documented in this encounter [...] in the past so we switched to DexWanderable CGM since 11/25/20 ($55/mo) to help closely [...] and controlled carb diet Fasting labs at [facility] Date 10/25/20 11/22/20 Glucose 184 210 GFR [...] [facility], no DR (August 2018). 4) CV [...] in 2 months, she will do at [facility] 3. History of Misha's thyroiditis with obesity [...] 400 to have your insulin doses adjusted. [facility] Endocrine clinic office documented in this encounter Plan of Treatment Upcoming Encounters Date Type Department Care Team (Late st Contact Info) Description 06/23/2024 11:30 AM EST TH Visit (TeleHealth) [place] [address] [facility] [place] [address] 05/10/2025 4:30 PM EST Office Visit Dermatology at [place] [address] [place] [address] Andreas Richardson MD [address], [place] [address] documented as of this encounter Visit Diagnoses Diagnosis Misha's thyroiditis Chronic lymphocytic thyroiditis Dyslipidemia Other and unspecified hyperlipidemia Type 2 diabetes mellitus with hyperglycemia, with long-term current use of insulin Type 2 diabetes mellitus with hyperglycemia, with long-term current use of insulin Misha's thyroiditis Chronic lymphocytic thyroiditis Vitamin D deficiency Unspecified vitamin D deficiency Hypertriglyceridemia Pure hyperglyceridemia documented in this encounter Care Teams Parimutuel Cashier Relationship Specialty Start Date End Date Leonor Hendricks MD [address] [place] [address] PCP - General Family Medicine 11/27/16 documented as of this encounter
--- OUTSIDE RECORDS SUMMARY | 2024-06-19 14:49 | XMS_ITS | Encounter Summary ---
Author Organization [facility] [place] [address] Care Team Providers Care Sql Consultant Name Role Phone Leonor Hendricks MD Primary Care Provider [phone] Encounter Details Date Type Department Care Team (Late st Contact Info) Description 12/16/2019 3:00 PM EDT TH Visit (TeleHealth) Sleep Center at [facility] [address] [place] [address] Lucrecia Vang APRN MAGDALENE on CPAP Social [...] Patient is reached today at home in [place], [place] Visit is by phone Patient provided [...] a severe degree (AHI of 93.9) noted. [facility] AHI of 40.2 which includes onlyapneas [...] likes it Chin Strap: no HCC: 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 insulin needles, disposable, 32 gauge x /32 Needle 1 each by [facility].(Non- Drug; Combo Route) route daily. For Victoza [...] cover to reduce condensation in tube --Call [employer] for questions on machine, supply replacements, billing [...] AM EST TH Visit (TeleHealth) [place] [address] Blade Martinez MD [facility] [place] [place] [address] 05/10/2025 4:30 PM EST Office Visit Dermatology at [place] [address] [place] [address] Andreas Richardson MD [address], [place] [address] documented as of this encounter Visit Diagnoses Diagnosis MAGDALENE on CPAP Obstructive sleep apnea (adult) (pediatric) Type 2 diabetes mellitus with hyperglycemia, with long-term current use of insulin Misha's thyroiditis Chronic lymphocytic thyroiditis Vitamin D deficiency Unspecified vitamin D deficiency Hypertriglyceridemia Pure hyperglyceridemia documented in this encounter Care Teams Sql Consultant Relationship Specialty Start Date End Date Leonor Hendricks MD [address] [place] [address] PCP - General Family Medicine 11/27/16 documented as of this encounter
--- OUTSIDE RECORDS SUMMARY | 2024-06-19 14:49 | XMS_ITS | Encounter Summary ---
[place] [address] Care Team Providers Care Belt Press Operator Name Role Phone Leonor Hendricks MD Primary Care Provider [phone] Encounter Details Date Type Department Care Team (Latest Contact Info) Description 07/19/2020 3:30 PM EST TH Visit (TeleHealth) [place] [phone] Yareli Morales MD Misha's thyroiditis; Type 2 diabetes mellitus without [...] Progress Notes * Yareli Morales MD - 07/19/2020 3:30 PM EST [...] Dr. Martin at [facility], no (August 2018). Currently office is closed 4) [...] victoza 1.8mg Jardiance 25mg daily --labs at [facility] in near future: Orders Placed This Encounter Procedures ??? TSH ??? LDL Cholesterol, Direct ??? Comprehensive metabolic panel (non-fasting) ??? U Albumin/Cre Ratio Call duration 10 min YARELI MORALES MD Teletype Clerkdaylight driller Section of Endocrinology [facility] documented in this encounter Plan of Treatment Upcoming Encounters Date Type Department Care Team (Late st Contact Info) Description 06/23/2024 11:30 AM EST TH Visit (TeleHealth) [place] [address] Blade Martinez MD [facility] [place] [address] 05/10/2025 4:30 PM EST Office Visit Dermatology at [place] [address] [place] [address] Andreas Richardson MD [address], MESSI Christian[place] [address] documented as of this encounter Visit Diagnoses Diagnosis Misha's thyroiditis Chronic lymphocytic thyroiditis Type 2 diabetes mellitus without complication, without long-term current use of insulin Type 2 diabetes mellitus with hyperglycemia, with long-term current use of insulin Misha's thyroiditis Chronic lymphocytic thyroiditis Vitamin D deficiency Unspecified vitamin D deficiency Hypertriglyceridemia Pure hyperglyceridemia documented in this encounter Care Teams Belt Press Operator Relationship Specialty Start Date End Date Leonor Hendricks MD [address] [place] [address] PCP - General Family Medicine 11/27/16 documented as of this encounter
--- OUTSIDE RECORDS SUMMARY | 2024-06-19 14:49 | XMS_ITS | Encounter Summary ---
Author Organization [facility] [place] [address] Care Team Providers Care Sailmaker Name Role Phone Leonor Hendricks MD Primary Care Provider [phone] Encounter Details Date Type Department Care Team (Latest Contact Info) Description 01/08/2019 12:00 PM EDT Laboratory Appointment Lab [address] [place] [address] Type 2 diabetes mellitus without complication, without [...] AM EST TH Visit (TeleHealth) [place] [address] Blade Martinez MD [facility] [place] [place] [address] 05/10/2025 4:30 PM EST Office Visit Dermatology at [address] [place] [address] Andreas Richardson MD [address] [place] [address] RD, [place] [address] documented as of this encounter Procedures Procedure [...] Urine 7 0 - 29 mcg/mg Cr [facility] Comment: Reference Ranges: <30 [...] 2, 357? 362 Albumin, Urine 6.9 mg/L [facility] Creatinine, Urine 95 mg/dL [facility] Urine specimen (specimen) 01/08/2019 11:29 AM EDT 01/08/2019 11:37 AM EDT Narrative Resulting Agency Comment Spec In Lab Yareli Morales MD URINE ORDERABLES [facility] [place] [address] * (ABNORMAL) Hemoglobin A1c (01/08/2019 11:25 AM EDT) Hemoglobin A1c 7.5(H) 4.3 - 5.6 % [facility] Comment: Reference Range: 4.3 [...] Mellitus, Diabetes Care 2013; 36: Suppl. 1, I31-11 Estimated Average Glucose 169 mg/dL [facility] Comment: eAG equivalents for [...] into estimated average glucose values. ??Diabetes Care 2008:31(8):2432-1143. Blood specimen (specimen) 01/08/2019 11:25 AM EDT 01/08/2019 11:29 AM EDT Narrative Resulting Agency Comment Spec In Lab Yareli Morales MD CHEMISTRY ORDERABLES [facility] [place] [address] * (ABNORMAL) Creatinine (01/08/2019 11:25 AM EDT) Creatinine 0.68(L) 0.70 - 1.20 mg/dL [facility] Est Glomerular Filtration Rate 105 >=60 mL/min/1.7 3 m?? [facility] Comment: The eGFR was calculated using the CKD-EPI equation. As with all creatinine based estimates of kidney function, eGFR values calculated with the CKD-EPI equation are not accurate in patients with acute kidney failure, extremes of body mass or the acutely ill. http://[employer]/[facility] eGFR 122 >=60 mL/min/1.7 3 m?? [facility] Comment: The eGFR was calculated using the CKD-EPI equation. As with all creatinine based estimates of kidney function, eGFR values calculated with the CKD-EPI equation are not accurate in patients with acute kidney failure, extremes of body mass or the acutely ill. http://[employer]/[facility] Blood specimen (specimen) 01/08/2019 11:25 AM EDT 01/08/2019 11:29 AM EDT Narrative Resulting Agency Comment Spec In Lab Yareli Morales MD CHEMISTRY ORDERABLES Performing Organization Address City/[facility] Co de Phone Number [facility] [place] [address] * (ABNORMAL) Hepatic Function Panel (01/08/2019 11:25 AM EDT) Protein, Total 8.0 6.1 - 8.0 gm/dL [facility] Albumin 4.3 3.2 - 5.2 gm/dL [facility] Aspartate Aminotransferase 29 0 - 30 unit/L [facility] Alanine Aminotransferase 31(H) 0 - 30 unit/L [facility] Alkaline Phosphatase 93 40 - 104 unit/L [facility] Bilirubin, Total <0.2(L) 0.2 - 1.3 mg/dL [facility] Bilirubin, Direct 0.1 0.0 - 0.3 mg/dL [facility] Blood specimen (specimen) 01/08/2019 11:25 AM EDT 01/08/2019 11:29 AM EDT Narrative Resulting Agency Comment Spec In Lab Yareli Morales MD CHEMISTRY ORDERABLES Performing Organization Address [facility] Co de Phone Number [facility] [place] [address] * TSH (01/08/2019 11:25 AM EDT) [facility] Thyroid Stimulating Hormone 3.93 0.27 - 4.20 mcIU/mL [facility] Blood specimen (specimen) 01/08/2019 11:25 AM EDT 01/08/2019 11:29 AM EDT Narrative Resulting Agency Comment Spec In Lab Yareli Morales MD CHEMISTRY ORDERABLES Performing Organization Address City/[facility]/ZIP Co de Phone Number [facility] [place] [address] * (ABNORMAL) T4, free (01/08/2019 11:25 AM EDT) Free T4 0.80(L) 0.93 - 1.70 ng/dL [facility] Blood specimen (specimen) 01/08/2019 11:25 AM EDT 01/08/2019 11:29 AM EDT Narrative Resulting Agency Comment Spec In Lab Yareli Morales MD CHEMISTRY ORDERABLES Performing Organization Address City/[facility]/ZIP Co de Phone Number [facility] [place] [address] * T3, free (01/08/2019 11:25 AM EDT) Free T3 2.2 2.0 - 4.4 pg/mL [facility] Blood specimen (specimen) 01/08/2019 11:25 AM EDT 01/08/2019 11:29 AM EDT Narrative Resulting Agency Comment Spec In Lab Yareli Morales MD CHEMISTRY ORDERABLES Performing Organization Address City/[facility] Co de Phone Number [facility] [place] [address] documented in this encounter Visit Diagnoses Diagnosis Type 2 diabetes mellitus without complication, without long-term current use of insulin Misha's thyroiditis Chronic lymphocytic thyroiditis Type 2 diabetes mellitus with hyperglycemia, with long-term current use of insulin Misha's thyroiditis Chronic lymphocytic thyroiditis Vitamin D deficiency Unspecified vitamin D deficiency Hypertriglyceridemia Pure hyperglyceridemia documented in this encounter Care Teams Sailmaker Relationship Specialty Start Date End Date Leonor Hendricks MD [address] [place] [address] PCP - General Family Medicine 11/27/16 documented as of this encounter
--- OUTSIDE RECORDS SUMMARY | 2024-06-19 14:49 | XMS_ITS | Encounter Summary ---
Author [facility] [place] [address] Care Team Providers Care Signal Person Name Role Phone Leonor Hendricks MD Primary Care Provider [phone] Reason for Visit * Reason Comments Psoriasis Encounter Details Date Type Department Care Team (Late st Contact Info) Description 03/04/2020 3:45 PM EDT Office Visit Dermatology at [address] [phone] Andreas Richardson MD [address] [facility], DAREK A DERMATOLOGY [place], [place] [address] Psoriasis Social History Tobacco Use Types Packs/Day [...] AM EST TH Visit (TeleHealth) [place] [address] Blade Martinez MD [facility] [place] [address] 05/10/2025 4:30 PM EST Office Visit Dermatology at [place] [address] [facility] [place] [address] Andreas Richardson MD [address] [facility], [place] [address] documented as of this encounter Visit Diagnoses Diagnosis Psoriasis Other psoriasis Type 2 diabetes mellitus with hyperglycemia, with long-term current use of insulin Misha's thyroiditis Chronic lymphocytic thyroiditis Vitamin D deficiency Unspecified vitamin D deficiency Hypertriglyceridemia Pure hyperglyceridemia documented in this encounter Care Teams Signal Person Relationship Specialty Start Date End Date Leonor Hendricks MD [address] [place] [address] PCP - General Family Medicine 11/27/16 documented as of this encounter
--- OUTSIDE RECORDS SUMMARY | 2024-06-19 14:49 | XMS_ITS | Encounter Summary ---
Author Organization [facility] [place] [address] Care Team Providers Care Gear Hobber Set Up Operator Name Role Phone Leonor Hendricks MD Primary Care Provider [phone] Reason for Visit * Reason Comments Medication Refill Encounter Details Date Type Department Care Team (Late st Contact Info) Description 07/09/2019 Refill [place] [address] Yareli Morales MD Social History Tobacco Use [...] AM EST TH Visit (TeleHealth) [place] [address] Blade Martinez MD [facility] [place] [place] [address] 05/10/2025 4:30 PM EST Office Visit Dermatology at [place] [address] [facility] [place] [address] Andreas Richardson MD [address], [place] [address] documented as of this encounter Visit Diagnoses Not on filedocumented in this encounter Care Teams Gear Hobber Set Up Operator Relationship Specialty Start Date End Date Leonor Hendricks MD [address] [place] [address] PCP - General Family Medicine 11/27/16 documented as of this encounter
--- OUTSIDE RECORDS SUMMARY | 2024-06-19 14:49 | XMS_ITS | Encounter Summary ---
[place] [address] Care Team Providers Care Track Maintainer Name Role Phone Leonor Hendricks MD Primary Care Provider [phone] Encounter Details Date Type Department Care Team (Latest Contact Info) Description 10/15/2019 9:30 AM EDT TH Visit (TeleHealth) [place] [phone] Yareli Morales MD Type 2 diabetes mellitus [...] ophtho evaluation - sees Dr. Martin at [facility], no DR (August 2018). Currently [...] gauge x 5/32 Needle 1 each by [facility]Non-Drug; Combo Route) route daily. For Victoza injection. [...] Reactions ??? Stelara [Ustekinumab] Other (See Comments) Yvooatpdi-yicvonp-xnnouzxjd SOCIAL HISTORY: Social History Tobacco Use Smoking [...] Call duration 10 min YARELI MORALES MD Account Installersupervisor payroll Section of Endocrinology [facility] documented in this encounter Plan of Treatment Upcoming Encounters Date Type Department Care Team (Late st Contact Info) Description 06/23/2024 11:30 AM EST TH Visit (TeleHealth) [place] [address] Blade Martinez MD [facility] [place] [address] 05/10/2025 4:30 PM EST Office Visit Dermatology at [place] [address] [place] [address] Andreas Richardson MD [address] [facility], [place] [address] documented as of this encounter Visit Diagnoses Diagnosis Type 2 diabetes mellitus without complication, without long-term current use of insulin Misha's thyroiditis Chronic lymphocytic thyroiditis Type 2 diabetes mellitus with hyperglycemia, with long-term current use of insulin Misha's thyroiditis Chronic lymphocytic thyroiditis Vitamin D deficiency Unspecified vitamin D deficiency Hypertriglyceridemia Pure hyperglyceridemia documented in this encounter Care Teams Track Maintainer Relationship Specialty Start Date End Date Leonor Hendricks MD [address] [place] [address] PCP - General Family Medicine 11/27/16 documented as of this encounter
--- OUTSIDE RECORDS SUMMARY | 2024-06-19 14:49 | XMS_ITS | Encounter Summary ---
Author Organization [facility] [place] [address] Care Team Providers Care Paranormal Investigator Name Role Phone Leonor Hendricks MD Primary Care Provider [phone] Encounter Details Date Type Department Care Team (Late st Contact Info) Description 10/06/2020 Telephone Hematology [place] [address] Alma Mcduffie MD [facility] [address] HEMATOLOGY/[place] [address] Social History Tobacco Use Types Packs/Day Years [...] for call: Call from Carlos UNGER from [facility] regarding thrombocytopenia Jesika Ryan is a 49 [...] Alma Mcduffie MD, MS Hematology/Medical Oncology Fellow [facility] Page # [phone] 10/06/20, 12:00 PM documented in this encounter Plan of Treatment Upcoming Encounters Date Type Department Care Team (Late st Contact Info) Description 06/23/2024 11:30 AM EST TH Visit (TeleHealth) [place] [address] Blade Martinez MD [facility] [place] [address] 05/10/2025 4:30 PM EST Office Visit Dermatology at [place] [address] [place] [address] Andreas Richardson MD [address], [place] [address] documented as of this encounter Visit Diagnoses Not on filedocumented in this encounter Care Teams Paranormal Investigator Relationship Specialty Start Date End Date Leonor Hendricks MD [address] [place] [address] PCP - General Family Medicine 11/27/16 documented as of this encounter
--- OUTSIDE RECORDS SUMMARY | 2024-06-19 14:49 | XMS_ITS | Encounter Summary ---
Author Organization [facility] [place] [address] Care Team Providers Care Basketball Assembler Name Role Phone Leonor Hendricks MD Primary Care Provider [phone] Encounter Details Date Type Department Care Team (Late st Contact Info) Description 07/20/2020 Telephone [place] [address] Yareli Morales MD Social History Tobacco Use [...] AM EST TH Visit (TeleHealth) [place] [address] Blade Martinez MD [facility] [place] [address] 05/10/2025 4:30 PM EST Office Visit Dermatology at [place] [address] [place] [address] Andreas Richardson MD [address], [place]ESS[place] [address] documented as of this encounter Visit Diagnoses Not on filedocumented in this encounter Care Teams Basketball Assembler Relationship Specialty Start Date End Date Leonor Hendricks MD [address] [place] [address] PCP - General Family Medicine 11/27/16 documented as of this encounter
--- OUTSIDE RECORDS SUMMARY | 2024-06-19 14:49 | XMS_ITS | Encounter Summary ---
Author Organization [facility] [place] [address] Care Team Providers Care Security Infrastructure Engineer Name Role Phone Leonor Hendricks MD Primary Care Provider [phone] Reason for Visit * Reason Onset Date Comments Medication Refill 07/08/2019 Encounter Details Date Type Department Care Team (Late st Contact Info) Description 07/08/2019 [place] [address] Autumn Kilpatrick MD Social History Tobacco Use [...] AM EST TH Visit (TeleHealth) [place] [address] Blade Martinez MD [facility] [place] [address] 05/10/2025 4:30 PM EST Office Visit Dermatology at [place] [address] [facility] [place] [address] Andreas Richardson MD [address], [place] [address] documented as of this encounter Visit Diagnoses Not on filedocumented in this encounter Care Teams Security Infrastructure Engineer Relationship Specialty Start Date End Date Leonor Hendricks MD [address] [place] [address] PCP - General Family Medicine 11/27/16 documented as of this encounter
--- OUTSIDE RECORDS SUMMARY | 2024-06-19 14:49 | XMS_ITS | Encounter Summary ---
Author Organization [facility] [place] [address] Care Team Providers Care National Business Director Name Role Phone Leonor Hendricks MD Primary Care Provider [phone] Encounter Details Date Type Department Care Team (Late st Contact Info) Description 10/19/2019 Telephone Sleep Center at [facility] [address] [place] [address] Moni Ramírez Social History Tobacco Use Types [...] AM EST TH Visit (TeleHealth[place] [address] Blade Martinez MD [facility] [place] [address] 05/10/2025 4:30 PM EST Office Visit Dermatology at [place] [address] [place] [address] Andreas Richardson MD [address], [place] [address] documented as of this encounter Visit Diagnoses Not on filedocumented in this encounter Care Teams National Business Director Relationship Specialty Start Date End Date Leonor Hendricks MD [address] [place] [address] PCP - General Family Medicine 11/27/16 documented as of this encounter
--- OUTSIDE RECORDS SUMMARY | 2024-06-19 14:49 | XMS_ITS | Encounter Summary ---
Author Organization [facility] [place] [address] Care Team Providers Care Cellar Packer Name Role Phone Leonor Hendricks MD Primary Care Provider [phone] Encounter Details Date Type Department Care Team (Latest Contact Info) Description 10/18/2020 12:30 PM EDT TH Visit (TeleHealth) [place] [address] Yareli Morales MD Hypertriglyceridemia ; Type 2 [...] PCP because her triglycerides were in the 1999s. I started her on fenofibrate - she [...] 9.2% (December 2017 - with PCP), 5.4% (2017) Current Diabetes Medication regimen: As above FSBG [...] --repeat fasting lipid profile and BMP at [facility] in 1 week (next Tuesday 10/24). --telehealth follow-up appointment next week on SaturdayOctober 26 at 8:30am. Total time spent on visit including face to face time with patient, placing orders and documentation was 45 minutes. YARELI MORALES MD Music Educatorgoodyear stitcher Section of Endocrinology [facility] documented in this encounter Plan of Treatment Upcoming Encounters Date Type Department Care Team (Late st Contact Info) Description 06/23/2024 11:30 AM EST TH Visit (TeleHealth) [facility] [place] [address] Blade Martinez MD [facility] [place] [address] 05/10/2025 4:30 PM EST Office Visit Dermatology at [place] [address] [facility] [place] [address] Andreas Richardson MD [address], [place] [address] documented as of this encounter Visit Diagnoses Diagnosis Hypertriglyceridemia Pure hyperglyceridemia Type 2 diabetes mellitus without complication, without long-term current use of insulin Type 2 diabetes mellitus with hyperglycemia, with long-term current use of insulin Misha's thyroiditis Chronic lymphocytic thyroiditis Vitamin D deficiency Unspecified vitamin D deficiency Hypertriglyceridemia Pure hyperglyceridemia documented in this encounter Care Teams Cellar Packer Relationship Specialty Start Date End Date Leonor Hendricks MD [address] [place] [address] PCP - General Family Medicine 11/27/16 documented as of this encounter
--- OUTSIDE RECORDS SUMMARY | 2024-06-19 14:49 | XMS_ITS | Encounter Summary ---
[place] [address] Care Team Providers Care After School Coordinator Name Role Phone Leonor Hendricks MD Primary Care Provider [phone] Encounter Details Date Type Department Care Team (Latest Contact Info) Description 04/15/2020 5:56 PM EDT - 04/15/2020 11:59 PM EDT Hospital [place] [address] Discharge Disposition: Home Social History Tobacco Use [...] 5/32 Needle 1 each by [facility]Non-Drug; Combo Route) route daily. For Victoza injection. ICD 10 Code: E11.9 100 each 3 07/08/2019 08/04/2020 diclofenac (VOLTAREN) 1 % GelIndications:Psoria sis,Psoriatic arthritis,High risk medication use,Osteoarthritis, unspecified osteoarthritis type, unspecified site Apply 2 g topically 4 times daily as needed. 1 Tube 1 08/26/2018 11/25/2020 guselkumab (TREMFYA) 100 mg/mL Syringe Inject 100 mg subcutaneously Every 8 Weeks. Inject SC one prefilled syringe every eight weeks 1 Syringe 3 08/08/2018 05/07/2024 halobetasol (ULTRAVATE) 0.05 % Cream Apply to psoriasis twice daily 45 g 3 08/08/2018 11/25/2020 blood sugar diagnostic strips Strip Check blood sugar prior to each meal and at bedtime - 4 times daily. 400 each 3 07/31/2018 05/03/2020 norethindrone (AYGESTIN) 5 mg Tablet Take 5 mg by mouth daily. 6 09/26/2017 05/07/2024 documented as of this encounter Plan of Treatment Upcoming Encounters Date Type Department Care Team (Late st Contact Info) Description 06/23/2024 11:30 AM EST TH Visit (TeleHealth) [place] [address] Blade Martinez MD [facility] [place] [address] 05/10/2025 4:30 PM EST Office Visit Dermatology at [place] [address] [place] [address] Andreas Richardson MD [address], [place] [address] documented as of this encounter Procedures Procedure Name Priority Date/Time Associated Diagnosis Comments COVID-19 PCR Routine 04/15/2020 9:13 AM EDT documented in this encounter Results * COVID-19 PCR (04/15/2020 9:13 AM EDT) SARS-CoV-2 RNA Not Detected Not Detected [facility] Comment: This result should [...] diagnosis of COVID-19 is performed using the [employer] RealTime SARS-CoV-2 Assay as authorized by the FDA Emergency Use Authorization (EUA). This EUA assay is intended for In-vitro Diagnostic (IVD) use with respiratory specimens such as nasopharyngeal swabs collected from individuals during the acute phase of infection. This assay is performed based on the instructions for use provided by [employer] and additional guidance provided by CDC and FDA. Testing is performed in the [facility] Laboratory within the Department of Pathology and Laboratory Medicine at [facility], certified under the Clinical Laboratory Improvement Amendments [...] fact sheets at the following FDA website: https://www.fda.gov/medical-devices/rtrfggflhxm-zjtguub-0188-wbial-28-ayiealqqs- use-a klzrlaxcopvee-vfslrms-eugyyrg/tecji-nodpjgfggat-susw SARS-CoV-2 RNA Source Nasal [facility] Specimen from nose (specimen) Other / Unknown 04/15/2020 9:13 AM EDT 04/15/2020 11:21 PM EDT Narrative Resulting Agency Comment Spec In Lab Fely Miramontes DO MOLECULAR ORDERABLES Performing Organization Address City/State/[facility] Co de Phone Number [facility] [place] [address] documented in this encounter Visit Diagnoses Not on filedocumented in this encounter Care Teams After School Coordinator Relationship Specialty Start Date End Date Leonor Hendricks MD [address] [place] [address] PCP - General Family Medicine 11/27/16 documented as of this encounter
--- OUTSIDE RECORDS SUMMARY | 2024-06-19 14:49 | XMS_ITS | Encounter Summary ---
Author Organization [facility] [place] [address] Care Team Providers Care Count Team Clerk Name Role Phone Leonor Hendricks MD Primary Care Provider [phone] Reason for Visit * Reason Comments Follow-up Psoriasis Encounter Details Date Type Department Care Team (Late st Contact Info) Description 03/16/2019 4:15 PM EDT Office Visit Dermatology at [address] [address] Andreas Richardson MD [address] [facility], [place] [address] Psoriasis Social History Tobacco Use Types Packs/Day [...] AM EST TH Visit (TeleHealth) [place] [address] Blade Martinez MD [facility] [place] [address] 05/10/2025 4:30 PM EST Office Visit Dermatology at [place] [address] [facility] [place] [address] Andreas Richardson MD [address] [facility], [place] [address] documented as of this encounter Visit Diagnoses Diagnosis Psoriasis Other psoriasis Type 2 diabetes mellitus with hyperglycemia, with long-term current use of insulin Misha's thyroiditis Chronic lymphocytic thyroiditis Vitamin D deficiency Unspecified vitamin D deficiency Hypertriglyceridemia Pure hyperglyceridemia documented in this encounter Care Teams Count Team Clerk Relationship Specialty Start Date End Date Leonor Hendricks MD [address] [place] [address] PCP - General Family Medicine 11/27/16 documented as of this encounter
--- OUTSIDE RECORDS SUMMARY | 2024-06-19 14:49 | XMS_ITS | Encounter Summary ---
Author Organization [facility] [place] [address] Care Team Providers Care Bleach Liquor Maker Name Role Phone Leonor Hendricks MD Primary Care Provider [phone] Reason for Visit * Reason Onset Date Comments Appointment 12/14/2020 Encounter Details Date Type Department Care Team (Late st Contact Info) Description 12/14/2020 Telephone End[place] [address] Juanita Ferguson I Appointment Social History Tobacco [...] AM EST TH Visit (TeleHealth) End[place] [address] Blade Martinez MD [facility] [place] [address] 05/10/2025 4:30 PM EST Office Visit Dermatology at [place] [address] [place] [place] [address] Andreas Richardson MD [address], [place] [address] documented as of this encounter Visit Diagnoses Not on filedocumented in this encounter Care Teams Bleach Liquor Maker Relationship Specialty Start Date End Date Leonor Hendricks MD [address] [place] [address] PCP - General Family Medicine 11/27/16 documented as of this encounter
--- OUTSIDE RECORDS SUMMARY | 2024-06-19 14:49 | XMS_ITS | Encounter Summary ---
Author Organization [facility] [place] [address] Care Team Providers Care Steam Shovel Operator Name Role Phone Leonor Hendricks MD Primary Care Provider [phone] Encounter Details Date Type Department Care Team (Late st Contact Info) Description 10/06/2020 Telephone [place] [address] Leonel Escobedo RN Social History Tobacco Use [...] that she is in the ED at [facility] right now, but does not feel that [...] her PCP wanted her to update her body man and tv host. She is at the emergency room at [facility] which is also where the labs were done yesterday. I have sent a fax requesting the results. documented in this encounter Plan of Treatment Upcoming Encounters Date Type Department Care Team (Late st Contact Info) Description 06/23/2024 11:30 AM EST TH Visit (TeleHealth) [place] [address] Blade Martinez MD [facility] [place] [address] 05/10/2025 4:30 PM EST Office Visit Dermatology at [address] [address] Andreas Richardson MD [address] [place] [address], [place] [address] documented as of this encounter Visit Diagnoses Not on filedocumented in this encounter Care Teams Steam Shovel Operator Relationship Specialty Start Date End Date Leonor Hendricks MD [address] [place] [address] PCP - General Family Medicine 11/27/16 documented as of this encounter
--- OUTSIDE RECORDS SUMMARY | 2024-06-19 14:49 | XMS_ITS | Encounter Summary ---
Author Organization [facility] [place] [address] Care Team Providers Care Newspaper Stuffer Name Role Phone Leonor Hendricks MD Primary Care Provider [phone] Reason for Visit * Reason Comments Medication Refill Encounter Details Date Type Department Care Team (Late st Contact Info) Description 08/01/2020 [place] [address] Yareli Morales MD Social History Tobacco Use [...] Med Name: BD UF WINNIE PEN NEEDLE 2GSS29F] 100 each 3 Sig: USE 1 PEN NEEDLE DIRECTED ONCE DAILY TO INJECT VICTOZA Last office visit: 07/19/2020 Follow up: 01/17/2021 Last refill: 07/08/2019 Olga almonte LPN documented in this encounter Plan of Treatment Upcoming Encounters Date Type Department Care Team (Late st Contact Info) Description 06/23/2024 11:30 AM EST TH Visit (TeleHealth) [place] [address] Blade Martinez MD [facility] [place] [address] 05/10/2025 4:30 PM EST Office Visit Dermatology at [place] [address] [facility] [place] [address] Andreas Richardson MD [address], [place] [address] documented as of this encounter Visit Diagnoses Not on filedocumented in this encounter Care Teams Newspaper Stuffer Relationship Specialty Start Date End Date Leonor Hendricks MD [address] [place] [address] PCP - General Family Medicine 11/27/16 documented as of this encounter
--- OUTSIDE RECORDS SUMMARY | 2024-06-19 14:49 | XMS_ITS | Encounter Summary ---
Author Organization [facility] [place] [address] Care Team Providers Care Hedis Coordinator Name Role Phone Leonor Hendricks MD Primary Care Provider [phone] Encounter Details Date Type Department Care Team (Late st Contact Info) Description 05/26/2021 Telephone [place] [address] Sheryl Bardales Social History Tobacco Use Types [...] AM EST TH Visit (TeleHealth) [place] [address] Blade Martinez MD [facility] [place] [place] [address] 05/10/2025 4:30 PM EST Office Visit Dermatology at [place] [address] [facility] [place] [address] Andreas Richardson MD [address] [facility], [place] [address] documented as of this encounter Visit Diagnoses Not on filedocumented in this encounter Care Teams Hedis Coordinator Relationship Specialty Start Date End Date Leonor Hendricks MD [address] [place] [address] PCP - General Family Medicine 11/27/16 documented as of this encounter
--- OUTSIDE RECORDS SUMMARY | 2024-06-19 14:49 | XMS_ITS | Encounter Summary ---
Author Organization [facility] [place] [address] Care Team Providers Care Director Energy Name Role Phone Leonor Hendricks MD Primary Care Provider [phone] Reason for Visit * Reason Onset Date Comments Medication Refill 08/31/2020 Encounter Details Date Type Department Care Team (Late st Contact Info) Description 08/31/2020 [place] [address] Leonel Escobedo, RN Social History Tobacco Use [...] AM EST TH Visit (TeleHealth) [place] [address] Blade Martinez MD [facility] [place] [address] 05/10/2025 4:30 PM EST Office Visit Dermatology at [place] [address] [place] [address] Andreas Richardson MD [address], [place] [address] documented as of this encounter Visit Diagnoses Not on filedocumented in this encounter Care Teams Director Energy Relationship Specialty Start Date End Date Leonor Hendricks MD [address] [place] [address] PCP - General Family Medicine 11/27/16 documented as of this encounter
--- OUTSIDE RECORDS SUMMARY | 2024-06-19 14:49 | XMS_ITS | Encounter Summary ---
Author Organization [facility] [place] [address] Care Team Providers Care Superintendent Operating Name Role Phone Leonor Hendricks MD Primary Care Provider [phone] Encounter Details Date Type Department Care Team (Latest Contact Info) Description 10/09/2018 12:00 PM EDT Laboratory Appointment Lab [address] [place] [address] Type 2 diabetes mellitus with hyperglycemia, without [...] AM EST TH Visit (TeleHealth) [place] [address] Blade Martinez MD [facility] [place] [address] 05/10/2025 4:30 PM EST Office Visit Dermatology at [address] [place] [address] Andreas Richardson MD [address] [place] [address] RD, [place] [address] documented as of this encounter Procedures Procedure [...] Stimulating Hormone 3.87 0.27 - 4.20 mcIU/mL [facility] Blood specimen (specimen) 10/09/2018 10:56 AM EDT 10/09/2018 10:59 AM EDT Narrative Resulting Agency Comment Spec In Lab Yareli Morales MD CHEMISTRY ORDERABLES [facility] [place] [address] * (ABNORMAL) Hemoglobin A1c (10/09/2018 10:56 AM EDT) Hemoglobin A1c 8.8(H) 4.3 - 5.6 % [facility] Comment: Reference Range: 4.3 - [...] Mellitus, Diabetes Care 2013; 36: Suppl. 1, S67-38 Estimated Average Glucose 205 mg/dL [facility] Comment: eAG equivalents for HbA1c [...] into estimated average glucose values. ??Diabetes Care 2008:31(8):1377-0895. Blood specimen (specimen) 10/09/2018 10:56 AM EDT 10/09/2018 10:59 AM EDT Narrative Resulting Agency Comment Spec In Lab Yareli Morales MD CHEMISTRY ORDERABLES [facility] [place] [address] * (ABNORMAL) T4, free (10/09/2018 10:56 AM EDT) [facility] Signature Free T4 0.90(L) 0.93 - 1.70 ng/dL [facility] Blood specimen (specimen) 10/09/2018 10:56 AM EDT 10/09/2018 10:59 AM EDT Narrative Resulting Agency Comment Spec In Lab Yareli Morales MD CHEMISTRY ORDERABLES Performing Organization Address City/[facility]/ZIP Co de Phone Number [facility] [place] [address] * T3, free (10/09/2018 10:56 AM EDT) [facility] Free T3 2.1 2.0 - 4.4 pg/mL [facility] Blood specimen (specimen) 10/09/2018 10:56 AM EDT 10/09/2018 10:59 AM EDT Narrative Resulting Agency Comment Spec In Lab Yareli Morales MD CHEMISTRY ORDERABLES Performing Organization Address [facility] Co de Phone Number [facility] [place] [address] * Glucose, random (10/09/2018 10:56 AM EDT) [facility] Glucose 116 65 - 199 mg/dL [facility] Comment:Diabetes: >=200 mg/d L plus symptoms Blood specimen (specimen) 10/09/2018 10:56 AM EDT 10/09/2018 10:59 AM EDT Narrative Resulting Agency Comment Spec In Lab Yareli Morales MD CHEMISTRY ORDERABLES Performing Organization Address [facility] Co de Phone Number [facility] [place] [address] * (ABNORMAL) Hepatic Function Panel (10/09/2018 10:56 AM EDT) [facility] Protein, Total 8.3(H) 6.1 - 8.0 gm/dL [facility] Albumin 4.5 3.2 - 5.2 gm/dL [facility] Aspartate Aminotransferase 24 0 - 30 unit/L [facility] Alanine Aminotransferase 41(H) 0 - 30 unit/L [facility] Alkaline Phosphatase 102 40 - 104 unit/L [facility] Bilirubin, Total 0.2 0.2 - 1.3 mg/dL [facility] Bilirubin, Direct 0.1 0.0 - 0.3 mg/dL [facility] Blood specimen (specimen) 10/09/2018 10:56 AM EDT 10/09/2018 10:59 AM EDT Narrative Resulting Agency Comment Spec In Lab Yareli Morales MD CHEMISTRY ORDERABLES [facility] [place] [address] documented in this encounter Visit Diagnoses Diagnosis Type 2 diabetes mellitus with hyperglycemia, without long-term current use of insulin Misha's thyroiditis Chronic lymphocytic thyroiditis Type 2 diabetes mellitus with hyperglycemia, with long-term current use of insulin Misha's thyroiditis Chronic lymphocytic thyroiditis Vitamin D deficiency Unspecified vitamin D deficiency Hypertriglyceridemia Pure hyperglyceridemia documented in this encounter Care Teams Superintendent Operating Relationship Specialty Start Date End Date Leonor Hendricks MD [address] [place] [address] PCP - General Family Medicine 11/27/16 documented as of this encounter
--- OUTSIDE RECORDS SUMMARY | 2024-06-19 14:50 | XMS_ITS | Encounter Summary ---
Author [facility] [place] [address] Care Team Providers Care Utilities Equipment Repairer Name Role Phone Leonor Hendricks MD Primary Care Provider [phone] Reason for Visit * Reason Comments Follow-up Psoriasis Encounter Details Date Type Department Care Team (Late st Contact Info) Description 08/08/2018 4:00 PM EST Office Visit Dermatology at [place] [address] [place] [address] Andreas Richardson MD [address] [facility] [place] [address] Psoriasis Social History Tobacco Use Types Packs/Day [...] prescription in a 6-month supply to her [facility] plan. 3 syringes will be a [...] AM EST TH Visit (TeleHealth) [place] [address] Blade Martinez MD [facility] [place] [address] 05/10/2025 4:30 PM EST Office Visit Dermatology at [place] [address] [place] [address] Andreas Richardson MD [address] [facility] [place] [address] documented as of this encounter Visit Diagnoses Diagnosis Psoriasis Other psoriasis Type 2 diabetes mellitus with hyperglycemia, with long-term current use of insulin Misha's thyroiditis Chronic lymphocytic thyroiditis Vitamin D deficiency Unspecified vitamin D deficiency Hypertriglyceridemia Pure hyperglyceridemia documented in this encounter Care Teams Utilities Equipment Repairer Relationship Specialty Start Date End Date Leonor Hendricks MD [address] [place] [address] PCP - General Family Medicine 11/27/16 documented as of this encounter
--- OUTSIDE RECORDS SUMMARY | 2024-06-19 14:50 | XMS_ITS | Encounter Summary ---
Author Organization [facility] [place] [address] Care Team Providers Care Supervisor Industrial Arts Education Name Role Phone Leonor Hendricks MD Primary Care Provider [phone] Encounter Details Date Type Department Care Team (Late st Contact Info) Description 08/01/2017 Telephone Sleep Center at [facility] [address] [place] [address] Darnell Lea MD Social History Tobacco Use Types Packs/Day [...] 08/01/2017 11:05 AM EST Returned her call ([phone]) to discuss the questions she had. Her sleep study was reviewed with her again, as was the concept of using AutoCPAP. She has made an appointment with [facility] and will see them soon. She asked [...] AM EST TH Visit (TeleHealth) [place] [address] [facility] [place] [address] 05/10/2025 4:30 PM EST Office Visit Dermatology at [place] [address] [place] [address] Andreas Richardson MD [address] [facility], [place] [address] documented as of this encounter Visit Diagnoses Not on filedocumented in this encounter Care Teams Supervisor Industrial Arts Education Relationship Specialty Start Date End Date Leonor Hendricks MD [address] [place] [address] PCP - General Family Medicine 11/27/16 documented as of this encounter
--- OUTSIDE RECORDS SUMMARY | 2024-06-19 14:50 | XMS_ITS | Encounter Summary ---
[place] [address] Care Team Providers Care Portal Developer Name Role Phone Leonor Hendricks MD Primary Care Provider [phone] Reason for Visit * Reason Comments Hypoglycemia * Consultation (Routine) - Closed Specialty Diagnoses / Procedures Referred By Contac t Referred To Contact Endocrinology Diagnoses Hypoglycemia HYPOGLYCEMIA new dx of elevated WBC Procedures CONSULT AND TREAT Leonor Hendricks MD [address] [place] [address] [facility] [address] [place] [address] Referral ID Status Reason Start Date Expiration Date Visits Re quested Visits Authorized [id number] Closed 02/01/2017 02/01/2018 1 1 Encounter Details Date Type Department Care Team (Late st Contact Info) Description 03/25/2017 2:00 PM EDT Office [place] [address] Yareli Morales MD Hypoglycemia Social History Tobacco Use Types Packs/Day [...] Active Problem List Diagnosis Date Noted ??? Mihsa's thyroiditis 2016 ??? Anxiety 2016 ??? Psoriasis [...] Reactions ??? Stelara [Ustekinumab] Other (See Comments) Hdiksyhft-hgaazzp-tvaqcuyae SOCIAL HISTORY: History Smoking Status ??? Former Smoker ??? Types: Cigarettes ??? Quit date: 03/21/2015 Smokeless Tobacco ??? Never Used FAMILY HISTORY: Family History Relation Problem Age of Onset ??? Maternal Grandfather Eczema ??? Maternal Aunt Eczema REVIEW OF SYSTEMS: All 12 systems reviewed and negative except as noted per HPI. PHYSICAL EXAM: Vitals Office Visit from 03/25/2017 in Endocrinology at [place] Weight - Scale 99.3 kg (219 lb) [...] and testing for it. YARELI MORALES MD Corporate Law Specialistbehavior management specialist Section of Endocrinology [facility] documented in this encounter Plan of Treatment Upcoming Encounters Date Type Department Care Team (Late st Contact Info) Description 06/23/2024 11:30 AM EST TH Visit (TeleHealth) [place] [address] Blade Martinez MD [facility] [place] [address] 05/10/2025 4:30 PM EST Office Visit Dermatology at [place] [address] [place] [address] Andreas Richardson MD [address] [facility], [place] [address] documented as of this encounter Visit Diagnoses Diagnosis Hypoglycemia Hypoglycemia, unspecified Type 2 diabetes mellitus with hyperglycemia, with long-term current use of insulin Misha's thyroiditis Chronic lymphocytic thyroiditis Vitamin D deficiency Unspecified vitamin D deficiency Hypertriglyceridemia Pure hyperglyceridemia documented in this encounter Care Teams Portal Developer Relationship Specialty Start Date End Date Leonor Hendricks MD [address] [place] [address] PCP - General Family Medicine 11/27/16 documented as of this encounter
--- OUTSIDE RECORDS SUMMARY | 2024-06-19 14:50 | XMS_ITS | Encounter Summary ---
Author Organization [facility] Malia [place] [address] Care Team Providers Care Claims Technician Name Role Phone Leonor Hendricks MD Primary Care Provider [phone] Encounter Details Date Type Department Care Team (Late st Contact Info) Description 10/23/2017 3:45 PM EDT Office [place] [address] [facility] [place] [address] Photosensitivity dermatitis Social History Tobacco Use Types [...] next . She is also seeing a diet clerk who reports that her cortisol testing is off. The diet clerk felt aln on her neck during the exam and an US confirmed the ln and a CT neck was completed today. Since she has been off of therapy for her psoriasis it has been quite active on her hands, dorsum of her feet, knees and elbows. Her plastic printer wants to start cosentyx but she wanted [...] AM EST TH Visit (TeleHealth) [place] [address] Blade Martinez MD [facility] [place] [address] 05/10/2025 4:30 PM EST Office Visit Dermatology at [place] [address] [facility] [place] [address] Andreas Richardson MD 580 [facility], [place] [address] documented as of this encounter Procedures Procedure [...] S ? <0.2 ?U ? <1.0 (Negative) ??TRAFFIC REPRESENTATIVE Ab, IgG, S ?0.4 ? U ? <1.0 (Negative) ??Scl 70 Ab, IgG, S ? <0.2 ?U ? <1.0 (Negative) ??Akila 1 Ab, IgG, S ? <0.2 ?U ? <1.0 (Negative) ?Test Performed by: ?[facility] ?[address] [place] [address] [facility] Blood specimen (specimen) 10/23/2017 4:26 PM EDT 10/24/2017 8:46 AM EDT Narrative Resulting Agency Comment Spec In Lab Jacinta Browne DO LAB SEND OUT ORDER AKBAR [facility] [place] [address] * LOVE (10/23/2017 4:26 PM EDT) LOVE Neg Neg [facility] Blood specimen (specimen) 10/23/2017 4:26 PM EDT 10/24/2017 8:26 AM EDT Narrative Resulting Agency Comment Spec In Lab Jacinta Browne DO LAB SEND OUT ORDER AKBAR Performing Organization Address City/[facility] Co de Phone Number [facility] [place] [address] documented in this encounter Visit Diagnoses Diagnosis Photosensitivity dermatitis Acute dermatitis due to solar radiation Type 2 diabetes mellitus with hyperglycemia, with long-term current use of insulin Ming's thyroiditis Chronic lymphocytic thyroiditis Vitamin D deficiency Unspecified vitamin D deficiency Hypertriglyceridemia Pure hyperglyceridemia documented in this encounter Care Teams Claims Technician Relationship Specialty Start Date End Date Leonor Hendricks MD [address] [place] [address] PCP - General Family Medicine 11/27/16 documented as of this encounter
--- OUTSIDE RECORDS SUMMARY | 2024-06-19 14:50 | XMS_ITS | Encounter Summary ---
Author Organization [facility] [place] [address] Care Team Providers Care Infant Babysitter Name Role Phone Leonor Hendricks MD Primary Care Provider [phone] Encounter Details Date Type Department Care Team (Late st Contact Info) Description 04/17/2018 2:00 PM EDT Office [place] [address] [place] [address] Type 2 diabetes mellitus with hyperglycemia, without [...] BP Location PULSE 102 TEMPERATURE RESPIRATIONS Height (Yemeni) 5' 3 Height (Metric) 160 cm Weight (Yemeni) 236 lbs Weight (Metric) 107.049 kg BODY MASS INDEX 41.81 kg/m2 Pulse Oximetry O2 Device BSA Lipid Panel Lab Results Component Value Date CHLPL 193 (External Lab) 08/13/2016 HDL 34 (EXTERNAL/ABN) 08/13/2016 TRIG 180 (EXTERNAL/ABN) 08/13/2016 LDLDIRECT 132 08/06/2016 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 Smoking: quit 2.5 years ago [...] AM EST TH Visit (TeleHealth) [place] [address] Blade Martinez MD [facility] [place] [address] 05/10/2025 4:30 PM EST Office Visit Dermatology at [place] [address] [facility] [place] [address] Andreas Richardson MD [address] [facility] [address], [place] [place] [address] documented as of this encounter Visit Diagnoses Diagnosis Type 2 diabetes mellitus with hyperglycemia, without long-term current use of insulin Obesity, unspecified classification, unspecified obesity type, unspecified whether serious comorbidity present Type 2 diabetes mellitus with hyperglycemia, with long-term current use of insulin Misha's thyroiditis Chronic lymphocytic thyroiditis Vitamin D deficiency Unspecified vitamin D deficiency Hypertriglyceridemia Pure hyperglyceridemia documented in this encounter Care Teams Infant Babysitter Relationship Specialty Start Date End Date Leonor Hendricks MD [address] [place] [address] PCP - General Family Medicine 11/27/16 documented as of this encounter
--- OUTSIDE RECORDS SUMMARY | 2024-06-19 14:50 | XMS_ITS | Encounter Summary ---
[facility] [place] [address] Care Team Providers Care Plastic Surgery Assistant Name Role Phone Leonor Hendricks MD Primary Care Provider [phone] Reason for Visit * Reason Comments Follow-up Psoriasis Encounter Details Date Type Department Care Team (Late st Contact Info) Description 02/07/2018 3:30 PM EDT Office Visit Dermatology at [address] [place] [address] Andreas Richardson MD [address] [facility], [address] A [place]MATOLOGY [place], [place] [address] Psoriasis Social History Tobacco Use Types Packs/Day [...] AM EST TH Visit (TeleHealth) [place] [address] Blade Martinez MD [facility] [place] [address] 05/10/2025 4:30 PM EST Office Visit Dermatology at [address] [place] [address] Andreas Richardson MD [address] [facility] [address], [place] [address] documented as of this encounter Visit Diagnoses Diagnosis Psoriasis Other psoriasis Type 2 diabetes mellitus with hyperglycemia, with long-term current use of insulin Misha's thyroiditis Chronic lymphocytic thyroiditis Vitamin D deficiency Unspecified vitamin D deficiency Hypertriglyceridemia Pure hyperglyceridemia documented in this encounter Care Teams Plastic Surgery Assistant Relationship Specialty Start Date End Date Leonor Hendricks MD [address] [place] [address] PCP - General Family Medicine 11/27/16 documented as of this encounter
--- OUTSIDE RECORDS SUMMARY | 2024-06-19 14:50 | XMS_ITS | Encounter Summary ---
Author Organization [facility] [place] [address] Care Team Providers Care Lapel Padder Name Role Phone Leonor Hendricks MD Primary Care Provider [phone] Encounter Details Date Type Department Care Team (Late st Contact Info) Description 03/18/2017 2:00 PM EDT Office [place] [address] Jacinta Browne, [facility] [place] [address] Psoriasis; Immunosuppressed status; High risk medication use; [...] of her menses. She is following with [employer] for this and was initiated on OCPs [...] next . She is also seeing a director of dance who reports that her cortisol testing is off. The director of dance felt aln on her neck during the exam and an US confirmed the ln and a CT neck was completed today. Since she has been off of therapy for her psoriasis it has been quite active on her hands, dorsum of her feet, knees and elbows. Her access representative wants to start cosentyx but she wanted [...] or periungual erythema noted. But has nail kyrgyz on Neurologic: gait nl from all ext [...] AM EST TH Visit (TeleHealth) [place] [address] Blade Martinez MD [facility] [place] [address] 05/10/2025 4:30 PM EST Office Visit Dermatology at [place] [address] [place] [address] Andreas Richardson MD [address] [facility] [address] [place] [address] documented as of this encounter Visit Diagnoses Diagnosis Psoriasis Other psoriasis Immunosuppressed status Unspecified disorder of immune mechanism High risk medication use Encounter for long-term (current) use of other medications Psoriatic arthritis Psoriatic arthropathy Type 2 diabetes mellitus with hyperglycemia, with long-term current use of insulin Ming's thyroiditis Chronic lymphocytic thyroiditis Vitamin D deficiency Unspecified vitamin D deficiency Hypertriglyceridemia Pure hyperglyceridemia documented in this encounter Care Teams Lapel Padder Relationship Specialty Start Date End Date Leonor Hendricks MD [address] [place] [address] PCP - General Family Medicine 11/27/16 documented as of this encounter
--- OUTSIDE RECORDS SUMMARY | 2024-06-19 14:50 | XMS_ITS | Encounter Summary ---
Author Organization [facility] [place] [address] Care Team Providers Care Stem Assembler Name Role Phone Leonor Hendricks MD Primary Care Provider [phone] Encounter Details Date Type Department Care Team (Late st Contact Info) Description 08/26/2018 3:00 PM EDT [place] [address] [facility] [place] [address] Psoriasis; Psoriatic arthritis; High risk medication use; [...] takes ibuprofen prn, not taking often. Notes psychiatric arnp other sig joint pain She was seen [...] next . She is also seeing a pulmonary function technologist who reports that her cortisol testing is off. The pulmonary function technologist felt aln on her neck during the exam and an US confirmed the ln and a CT neck was completed today. Since she has been off of therapy for her psoriasis it has been quite active on her hands, dorsum of her feet, knees and elbows. Her mud jack operator wants to start cosentyx but she wanted [...] AM EST TH Visit (TeleHealth) [place] [address] [facility] [place] [address] 05/10/2025 4:30 PM EST Office Visit Dermatology at [address] [address] Andreas Richardson MD [address] [facility] [address] [place] [address] documented as of this encounter Visit Diagnoses Diagnosis Psoriasis Other psoriasis Psoriatic arthritis Psoriatic arthropathy High risk medication use Encounter for long-term (current) use of other medications Osteoarthritis, unspecified osteoarthritis type, unspecified site Type 2 diabetes mellitus with hyperglycemia, with long-term current use of insulin Ming's thyroiditis Chronic lymphocytic thyroiditis Vitamin D deficiency Unspecified vitamin D deficiency Hypertriglyceridemia Pure hyperglyceridemia documented in this encounter Care Teams Stem Assembler Relationship Specialty Start Date End Date Leonor Hendricks MD [address] [place] [address] PCP - General Family Medicine 11/27/16 documented as of this encounter
--- OUTSIDE RECORDS SUMMARY | 2024-06-19 14:50 | XMS_ITS | Encounter Summary ---
Author Organization [facility] [place] [address] Care Team Providers Care Net Software Developer Name Role Phone Leonor Hendricks MD Primary Care Provider [phone] Encounter Details Date Type Department Care Team (Late st Contact Info) Description 07/31/2017 Telephone Sleep Center at [facility] [address] [place] [address] Subha Kulkarni, RN Social History Tobacco Use [...] AM EST TH Visit (TeleHealth) [place] [address] Blade Martinez MD [facility] [place] [address] 05/10/2025 4:30 PM EST Office Visit Dermatology at [place] [address] [facility] [place] [address] Andreas Richardson MD 580 [facility], [place] [address] documented as of this encounter Visit Diagnoses Not on filedocumented in this encounter Care Teams Net Software Developer Relationship Specialty Start Date End Date Leonor Hendricks MD [address] [place] [address] PCP - General Family Medicine 11/27/16 documented as of this encounter
--- OUTSIDE RECORDS SUMMARY | 2024-06-19 14:50 | XMS_ITS | Encounter Summary ---
Author Organization Formerly [facility] [place] [place] [address] Care Team Providers Care Machine Setter Automatic Name Role Phone Leonor Hendricks MD Primary Care Provider [phone] Encounter Details Date Type Department Care Team (Late st Contact Info) Description 01/18/2017 Notes [place] [phone] Jason Brady CPHT Social History Tobacco Use Types Packs/Day Years [...] this encounter Progress Notes * Jason Brady CPHT - 01/18/2017 12:07 PM EDT [facility] Prior Authorization Medication: Cosentyx RX Insurance: [place] Medicaid Insurance Phone #: [phone] Insurance Fax #: Sent via Cover My Meds ID #: [id number] Spoke With: CORNEL Reference #: Date CORNEL Sent: 01/18/17 Approval Date: Pharmacy: [facility] Notes: Sent PA for reauthorization, await response. *CORNEL now approved with $3 copay. The [facility] will notify the patient and arrange to have the medication mailed to them. documented in this encounter Plan of Treatment Upcoming Encounters Date Type Department Care Team (Late st Contact Info) Description 06/23/2024 11:30 AM EST TH Visit (TeleHealth) [place] [address] Blade Martinez MD [facility] [place] [address] 05/10/2025 4:30 PM EST Office Visit Dermatology at [place] [address] [place] [phone] Andreas Richardson MD [address], [place] [address] documented as of this encounter Visit Diagnoses Not on filedocumented in this encounter Care Teams Machine Setter Automatic Relationship Specialty Start Date End Date Leonor Hendricks MD [address] [place] [id number] PCP - General Family Medicine 11/27/16 documented as of this encounter
--- OUTSIDE RECORDS SUMMARY | 2024-06-19 14:50 | XMS_ITS | Encounter Summary ---
Author Organization [facility] [place] [address] Care Team Providers Care Burn Table Operator Name Role Phone Leonor Hendricks MD Primary Care Provider [phone] Reason for Visit * Reason Comments Hypoglycemia Prolonged Fast - End o Test Encounter Details Date Type Department Care Team (Latest Contact Info) Description 07/10/2017 7:55 AM EST Procedure visit [place] [address] Roberto Buckner MD [facility] [place] [address] Misha's thyroiditis; Generalized weakness Social History Tobacco [...] (2 packs - 8 oz each) Creamy [place] Flavor. (Each 8 oz contains 360 dilip [...] AM EST TH Visit (TeleHealth) Endocrinology at [place] [phone] Blade Martinez MD [facility] [place] [address] 05/10/2025 4:30 PM EST Office Visit Dermatology at [place] [address] [place] [phone] Andreas Richardson MD [address], [place] [address] documented as of this encounter Procedures Procedure [...] Buckner MD POINT OF CARE TEST O VICKERACARLOS * POCT Fingerstick Glucose (07/10/2017 1:00 PM EST) Glucose, POC 187 60 - 199 mg/dl Comment:1 hour after mixed m eal - Endo Test Blood specimen (specimen) 07/10/2017 1:00 PM EST Roberto Buckner MD POINT OF CARE TEST O VICKERACARLOS * (ABNORMAL) Beta Hydroxybutyrate (07/10/2017 12:00 PM EST) Beta-hydroxybu turate 0.51(H) 0.00 - 0.30 mmol/L [facility] Comment: Reference range: ??0.00-0.30 mmo1/L, based on an overnight fast. ??Children may be higher. Blood specimen (specimen) 07/10/2017 12:00 PM EST 07/10/2017 12:18 PM EST Narrative Resulting Agency Comment Spec In Lab Roberto Buckner MD CHEMISTRY ORDERABLES [facility] [place] [address] * Insulin, total (07/10/2017 12:00 PM EST) Insulin 23.6 2.6 - 24.9 mcunit/mL [facility] Blood specimen (specimen) 07/10/2017 12:00 PM EST 07/10/2017 12:18 PM EST Narrative Resulting Agency Comment Spec In Lab Roberto Buckner MD CHEMISTRY ORDERABLES Performing Organization Address City/[facility]/ZIP Co de Phone Number [facility] [place] [address] * Glucose, random (07/10/2017 12:00 PM EST) Glucose 88 65 - 199 mg/dL [facility] Comment:Diabetes: >=200 mg/d L plus symptoms Blood specimen (specimen) 07/10/2017 12:00 PM EST 07/10/2017 12:18 PM EST Narrative Resulting Agency Comment Spec In Lab Roberto Buckner MD CHEMISTRY ORDERABLES Performing Organization Address City/[facility]/ZIP Co de Phone Number [facility] [place] [address] * POCT Fingerstick Glucose (07/10/2017 11:30 AM [...] Green Tube HOLD (07/10/2017 9:15 AM EST) Pathologist [facility] Green Hold Sample in lab. [facility] Blood specimen (specimen) Venous Draw / Unknown 07/10/2017 9:15 AM EST 07/10/2017 9:55 AM EST Roberto Buckner MD CHEMISTRY ORDERABLES [facility] [place] [address] * Green Tube HOLD (07/10/2017 9:15 AM EST) [facility] Green Hold Sample in lab. [facility] Blood specimen (specimen) Venous Draw / Unknown 07/10/2017 9:15 AM EST 07/10/2017 9:55 AM EST Roberto Buckner MD CHEMISTRY ORDERABLES [facility] [place] [address] * T3, free (07/10/2017 9:15 AM EST) Free T3 2.7 2.0 - 4.4 pg/mL [facility] Blood specimen (specimen) Venous Draw / Unknown 07/10/2017 9:15 AM EST 07/10/2017 9:53 AM EST Narrative Resulting Agency Comment Spec In Lab Roberto Buckner MD CHEMISTRY ORDERABLES Performing Organization Address [facility] Co de Phone Number [facility] [place] [address] * (ABNORMAL) T4, free (07/10/2017 9:15 AM EST) Free T4 0.83(L) 0.93 - 1.70 ng/dL [facility] Blood specimen (specimen) Venous Draw / Unknown 07/10/2017 9:15 AM EST 07/10/2017 9:53 AM EST Narrative Resulting Agency Comment Spec In Lab Roberto Buckner MD CHEMISTRY ORDERABLES Performing Organization Address [facility] Co de Phone Number [facility] [place] [address] * TSH (07/10/2017 9:15 AM EST) Thyroid Stimulating Hormone 3.80 0.27 - 4.20 mlU/ML [facility] Blood specimen (specimen) Venous Draw / Unknown 07/10/2017 9:15 AM EST 07/10/2017 9:53 AM EST Narrative Resulting Agency Comment Spec In Lab Roberto Buckner MD CHEMISTRY ORDERABLES Performing Organization Address [facility] Co de Phone Number [facility] [place] [address] * (ABNORMAL) Beta Hydroxybutyrate (07/10/2017 9:15 AM EST) Beta-hydroxybu turate 0.41(H) 0.00 - 0.30 mmol/L [facility] Comment: Reference range: ??0.00-0.30 mmo1/L, based on an overnight fast. ??Children may be higher. Blood specimen (specimen) 07/10/2017 9:15 AM EST 07/10/2017 9:53 AM EST Narrative Resulting Agency Comment Spec In Lab Roberto Buckner MD CHEMISTRY ORDERABLES Performing Organization Address [facility] Co de Phone Number [facility] [place] [address] * (ABNORMAL) Proinsulin (07/10/2017 9:15 AM EST) Proinsulin (OCTOBER) 171(H) 3.6 - 22 pmol/L [facility] Comment: ADDITIONAL INFORMATION This test was developed and its performance characteristics determined by [facility] in a manner consistent with CLIA requirements. This test has not been cleared or approved by the U.S. Food and Drug Administration. Test Performed by: [facility] [address] [place] [address] Blood specimen (specimen) 07/10/2017 9:15 AM EST 07/10/2017 1:33 PM EST Narrative Resulting Agency Comment Spec In Lab Roberto Buckner MD LAB SEND OUT ORDERAB LES Performing Organization Address [facility] Co de Phone Number [facility] [place] [address] * Glucose, random (07/10/2017 9:15 AM EST) [facility] Glucose 106 65 - 199 mg/dL [facility] Comment:Diabetes: >=200 mg/d L plus symptoms Blood specimen (specimen) 07/10/2017 9:15 AM EST 07/10/2017 9:53 AM EST Narrative Resulting Agency Comment Spec In Lab Roberto Buckner MD CHEMISTRY ORDERABLES Performing Organization Address [facility] Co de Phone Number [facility] [place] [address] * (ABNORMAL) Insulin, total (07/10/2017 9:15 AM EST) Insulin 41.6(H) 2.6 - 24.9 mcunit/mL [facility] Blood specimen (specimen) 07/10/2017 9:15 AM EST 07/10/2017 9:53 AM EST Narrative Resulting Agency Comment Spec In Lab Roberto Buckner MD CHEMISTRY ORDERABLES [facility] [place] [address] * POCT Fingerstick Glucose (07/10/2017 8:30 AM EST) Glucose, POC 107 60 - 199 mg/dl Comment:Prolonged Fast Endo Test Blood specimen (specimen) 07/10/2017 8:30 AM EST Roberto Buckner MD POINT OF CARE TEST O RDERABLES documented in this encounter Visit Diagnoses Diagnosis Misha's thyroiditis Chronic lymphocytic thyroiditis Generalized weakness Other malaise and fatigue Type 2 diabetes mellitus with hyperglycemia, with long-term current use of insulin Misha's thyroiditis Chronic lymphocytic thyroiditis Vitamin D deficiency Unspecified vitamin D deficiency Hypertriglyceridemia Pure hyperglyceridemia documented in this encounter Care Teams Burn Table Operator Relationship Specialty Start Date End Date Leonor Hendricks MD [address] [place] [address] PCP - General Family Medicine 11/27/16 documented as of this encounter
--- OUTSIDE RECORDS SUMMARY | 2024-06-19 14:50 | XMS_ITS | Encounter Summary ---
Author Organization [facility] [place] [address] Care Team Providers Care Craft Coordinator Name Role Phone Leonor Hendricks MD Primary Care Provider [phone] Reason for Visit * Reason Comments Follow-up Skin Check Encounter Details Date Type Department Care Team (Late st Contact Info) Description 11/15/2017 10:45 AM EDT Office Visit Dermatology at [address] [place] [address] Andreas Richardson MD [address] [facility] [place] [address] Psoriasis Social History Tobacco Use Types Packs/Day [...] We will look into prior authorization of Tremfya. Dosing will be 100 mg prefilled syringe [...] AM EST TH Visit (TeleHealth) [place] [address] Blade Martinez MD [facility] [place] [address] 05/10/2025 4:30 PM EST Office Visit Dermatology at [address] [phone] Andreas Richardson MD [address] [facility] [place] [address] documented as of this encounter Visit Diagnoses Diagnosis Psoriasis Other psoriasis Type 2 diabetes mellitus with hyperglycemia, with long-term current use of insulin Misha's thyroiditis Chronic lymphocytic thyroiditis Vitamin D deficiency Unspecified vitamin D deficiency Hypertriglyceridemia Pure hyperglyceridemia documented in this encounter Care Teams Craft Coordinator Relationship Specialty Start Date End Date Leonor Hendricks MD [address] [place] [address] PCP - General Family Medicine 11/27/16 documented as of this encounter
--- OUTSIDE RECORDS SUMMARY | 2024-06-19 14:50 | XMS_ITS | Encounter Summary ---
Author Organization [facility] Address [facility] [place] [address] Care Team Providers Care Tax Associate Attorney Name Role Phone Leonor Hendricks MD Primary Care Provider [phone] Reason for Visit * Consultation (Routine) - Closed Specialty Diagnoses / Procedures Referred By Contac t Referred To Contact Sleep Center Diagnoses Snoring Procedures PRG POLYSOM 6+ YRS SLEEP W 4+ ADDL CAMMY ATTMarci Dacosta MD [facility] [place] [address] [facility] Sleep Medicine [address] [place] [address] Referral ID Status Reason Start Date Expiration Date V isits Requested Visits Authorized [id number] Closed Test Only 04/23/2017 07/26/2017 1 1 Encounter Details Date Type Department Care Team (Latest Contact Info) Description 07/25/2017 8:30 PM EST Procedure visit Sleep Center at [facility] [address] [place] [phone] Darnell Lea MD MAGDALENE (obstructive sleep apnea) Social History Tobacco [...] noted. CMS AHI of 40.2 which includes only apneas [...] weeks. Disposition: She was contacted by phone ([phone]) to discuss the study results, but was unavailable to talk; a message was left on her voicemailbox. The voice message described her study resultsand diagnosis of MAGDALENE, the concept of using AutoCPAP ranging from 8-14cm, the concept of minimum usefor insurance purposes (and to gain maximum benefits), her multiple options for selection of a homecare company (including [employer] in [facility] which is nearby her home, and [facility]), as well as a request for her to return to the clinic for a follow-up visit in 6 weeks with Fely. A CPAP has been prescribed, and follow up has been ordered. Darnell Lea MD PGY4, Neurology Resident Personal Pager #[phone] General Neurology #[id number] [facility] REPORT of Split-Night Polysomnography [...] 0.0 Index (Total): 40.2 53.6 132.7 0.0 *[facility]-defined hypopneas include only hypopneas with a >=4% oxygen desaturation. Includes hypopneas with an arousal or with a 3%-4% desaturation. [facility] Hypopneas not included. Periodic Breathing Total Sleep Time Time (minutes) 0.0 Time (%Sleep Time) 0.0 AHI: Includes all apneas & all hypopneas associated with an arousal or a >= 3% desaturation. Supine Non-Sup. REM NREM Total Count: 125 15 0 140 140 Index (events/hr): 95.5 81.8 0.0 93.9 AHI = 93.9 CMS AHI: Includes all apneas & only hypopneas associated with a >= 4% desaturation. Supine Non-Sup. REM NREM Total [...] NREM (minutes) REM (minutes) All Sleep (minutes) <=90% 0.1 1.0 0.0 1.0 <=89% 0.0 0.7 0.0 0.7 <=88% 0.0 0.3 0.0 0.3 90-99% 80.5 88.5 0.0 88.5 80-89.9% 0.0 0.7 0.0 0.7 79-79.9% 0.0 0.0 0.0 0.0 60-69.9% 0.0 0.0 0.0 0.0 50-59.9% 0.0 0.0 0.0 0.0 <=50% 0.0 0.0 0.0 0.0 Cardiac Details Heart [...] 0.0 Index (Total): 1.6 11.5 14.2 0.0 *CMS-defined hypopneas include only hypopneas with a >=4% oxygen desaturation. Includes hypopneas with an arousal or with a 3%-4% desaturation. [facility] Hypopneas not included. Periodic Breathing Total Sleep Time Time (minutes) 0.0 Time (%Sleep Time) 0.0 AHI: Includes all apneas & all hypopneas associated with an arousal or a >= 3% desaturation. Supine Non-Sup. REM NREM Total Count: 49 15 31 33 64 Index (events/hr): 17.8 9.0 15.9 13.4 AHI = 14.5 [facility] AHI: Includes all apneas & only hypopneas associated with a >= 4% desaturation. Supine Non-Sup. REM NREM Total [...] NREM (minutes) REM (minutes) All Sleep (minutes) <=90% 0.3 0.1 0.0 0.1 <=89% 0.1 0.0 0.0 0.0 <=88% 0.1 0.0 0.0 0.0 90-99% 46.7 147.9 117.0 264.9 80-89.9% 0.1 0.0 0.0 0.0 79-79.9% 0.0 0.0 0.0 0.0 60-69.9% 0.0 0.0 0.0 0.0 50-59.9% 0.0 0.0 0.0 0.0 <=50% 0.0 0.0 0.0 0.0 Cardiac Details (Therapeutic [...] of hypopneas: those associated with arousals or >=3% desaturations. Respiratory Indices (events per hour) IP/EP/O2 OAI MICHAEL CONSTANCE HI* RDI 5/5/0 6/6/0 7/7/0 8/8/0 0.0 0.0 0.0 0.4 0.0 0.0 0.0 0.0 0.0 0.0 0.0 2.0 3.8 26.6 26.0 12.7 3.8 26.6 26.0 15.1 *Includes all types of hypopneas: those associated with arousals or >=3% desaturations. Respiratory Indices (events per hour) IP/EP/O2 AHI Supine Non-Sup. REM Non-REM 5/5/0 6/6/0 7/7/0 8/8/0 3.8 26.6 26.0 15.1 3.8 26.6 26.0 26.7 0 0 0 9.0 0.0 28.3 26.0 8.6 3.8 17.7 0.0 20.7 *Includes all types of hypopneas: those associated with arousals or >=3% desaturations. Oxygen Saturations IP/EP/O2 Minimum Mean 5/5/0 6/6/0 7/7/0 8/8/0 93 92 91 89 96 95 96 96 Graphs CPAP/Bi-Level PLMs Body Position documented in this encounter Plan of Treatment Upcoming Encounters Date Type Department Care Team (Late st Contact Info) Description 06/23/2024 11:30 AM EST TH Visit (TeleHealth) [place] [address] Blade Martinez MD [facility] [place] [address] 05/10/2025 4:30 PM EST Office Visit Dermatology at [address] [address] Andreas Richardson MD [address] [place] [address] documented as of this encounter Visit Diagnoses Diagnosis MAGDALENE (obstructive sleep apnea) Obstructive sleep apnea (adult) (pediatric) Type 2 diabetes mellitus with hyperglycemia, with long-term current use of insulin Misha's thyroiditis Chronic lymphocytic thyroiditis Vitamin D deficiency Unspecified vitamin D deficiency Hypertriglyceridemia Pure hyperglyceridemia documented in this encounter Care Teams Tax Associate Attorney Relationship Specialty Start Date End Date Leonor Hendricks MD [address] [place] [address] PCP - General Family Medicine 11/27/16 documented as of this encounter
--- OUTSIDE RECORDS SUMMARY | 2024-06-19 14:50 | XMS_ITS | Encounter Summary ---
Author Organization [facility] [place] [address] Care Team Providers Care Dealer Card Room Name Role Phone Leonor Hendricks MD Primary Care Provider [phone] Reason for Visit * Reason Comments Follow-up Psoriasis Encounter Details Date Type Department Care Team (Late st Contact Info) Description 01/11/2017 10:00 AM EDT Office Visit Dermatology at [address] [place] [address] Andreas Richardson MD [address] [facility] [place] [address] Psoriasis Social History Tobacco Use Types Packs/Day [...] AM EST TH Visit (TeleHealth) [place] [address] Blade Martinez MD [facility] [address] 05/10/2025 4:30 PM EST Office Visit Dermatology at [place] [address] [place] [phone] Andreas Richardson MD [address] [facility] [place] [address] documented as of this encounter Visit Diagnoses Diagnosis Psoriasis Other psoriasis Type 2 diabetes mellitus with hyperglycemia, with long-term current use of insulin Misha's thyroiditis Chronic lymphocytic thyroiditis Vitamin D deficiency Unspecified vitamin D deficiency Hypertriglyceridemia Pure hyperglyceridemia documented in this encounter Care Teams Dealer Card Room Relationship Specialty Start Date End Date Leonor Hendricks MD [address] [place] [address] PCP - General Family Medicine 11/27/16 documented as of this encounter
--- OUTSIDE RECORDS SUMMARY | 2024-06-19 14:50 | XMS_ITS | Encounter Summary ---
[place] [address] Care Team Providers Care Health Club Manager Name Role Phone Leonor Hendricks MD Primary Care Provider [phone] Encounter Details Date Type Department Care Team (Late st Contact Info) Description 10/09/2018 1:00 PM EDT Office [place] [phone] Yareli Morales MD Type 2 diabetes mellitus [...] unaffordable, please call the office or send Pubster message to let me know. In that [...] gauge x 5/32 Needle 1 each by [facility]Non-Drug; Combo Route) route daily. Yes metFORMIN (GLUCOPHAGE) [...] Reactions ??? Stelara [Ustekinumab] Other (See Comments) [id number] SOCIAL HISTORY: Social History Tobacco Use Smoking [...] Office Visit from 10/09/2018 in Endocrinology at [place] Weight 105.2 kg (232 lb) Height 160 [...] patient on DM mgmt. YARELI MORALES MD Employment Training Specialistcall worker person Section of Endocrinology [facility] documented in this encounter Plan of Treatment Upcoming Encounters Date Type Department Care Team (Late st Contact Info) Description 06/23/2024 11:30 AM EST TH Visit (TeleHealth) Endocrinology at [facility] [place] [address] Blade Martinez MD [facility] [address] [place] [address] 05/10/2025 4:30 PM EST Office Visit Dermatology at [place] [address] [place] [address] Andreas Richardson MD [address], [place] [address] documented as of this encounter Results * U Albumin/Cre Ratio (01/08/2019 11:29 AM EDT) Albumin / Creatinin Ratio, Urine 7 0 - 29 mcg/mg Cr [facility] Comment: Reference Ranges: <30 mcg/mg: [...] 2, 357? 362 Albumin, Urine 6.9 mg/L [facility] Creatinine, Urine 95 mg/dL [facility] Urine specimen (specimen) 01/08/2019 11:29 AM EDT 01/08/2019 11:37 AM EDT Narrative Resulting Agency Comment Spec In Lab Yareli Morales MD URINE ORDERABLES Performing Organization Address [facility] Co de Phone Number [facility] [place] [address] * T3, free (01/08/2019 11:25 AM EDT) Free T3 2.2 2.0 - 4.4 pg/mL [facility] Blood specimen (specimen) 01/08/2019 11:25 AM EDT 01/08/2019 11:29 AM EDT Narrative Resulting Agency Comment Spec In Lab Yareli Morales MD CHEMISTRY ORDERABLES Performing Organization Address [facility] de Phone Number [facility] [place] [address] * (ABNORMAL) T4, free (01/08/2019 11:25 AM EDT) Free T4 0.80(L) 0.93 - 1.70 ng/dL [facility] Blood specimen (specimen) 01/08/2019 11:25 AM EDT 01/08/2019 11:29 AM EDT Narrative Resulting Agency Comment Spec In Lab Yareli Morales MD CHEMISTRY ORDERABLES Performing Organization Address [facility] Co de Phone Number [facility] [place] [address] * TSH (01/08/2019 11:25 AM EDT) Thyroid Stimulating Hormone 3.93 0.27 - 4.20 mcIU/mL [facility] Blood specimen (specimen) 01/08/2019 11:25 AM EDT 01/08/2019 11:29 AM EDT Narrative Resulting Agency Comment Spec In Lab Yareli Morales MD CHEMISTRY ORDERABLES Performing Organization Address City/[facility] Co de Phone Number [facility] [place] [address] * (ABNORMAL) Hepatic Function Panel (01/08/2019 11:25 AM EDT) Protein, Total 8.0 6.1 - 8.0 gm/dL [facility] Albumin 4.3 3.2 - 5.2 gm/dL [facility] Aspartate Aminotransferase 29 0 - 30 unit/L [facility] Alanine Aminotransferase 31(H) 0 - 30 unit/L [facility] Alkaline Phosphatase 93 40 - 104 unit/L [facility] Bilirubin, Total <0.2(L) 0.2 - 1.3 mg/dL [facility] Bilirubin, Direct 0.1 0.0 - 0.3 mg/dL [facility] Blood specimen (specimen) 01/08/2019 11:25 AM EDT 01/08/2019 11:29 AM EDT Narrative Resulting Agency Comment Spec In Lab Yareli Morales MD CHEMISTRY ORDERABLES Performing Organization Address [facility] Co de Phone Number [facility] [place] [address] * (ABNORMAL) Creatinine (01/08/2019 11:25 AM EDT) Creatinine 0.68(L) 0.70 - 1.20 mg/dL [facility] Est Glomerular Filtration Rate 105 >=60 mL/min/1.7 3 m?? [facility] Comment: The eGFR was calculated using the CKD-EPI equation. As with all creatinine based estimates of kidney function, eGFR values calculated with the CKD-EPI equation are not accurate in patients with acute kidney failure, extremes of body mass or the acutely ill. http://Sustainatopia.com/DHMCnkf eGFR 122 >=60 mL/min/1.7 3 m?? [facility] Comment: The eGFR was calculated using the CKD-EPI equation. As with all creatinine based estimates of kidney function, eGFR values calculated with the CKD-EPI equation are not accurate in patients with acute kidney failure, extremes of body mass or the acutely ill. http://[employer]at[employer].com/DHMCnkf Blood specimen (specimen) 01/08/2019 11:25 AM EDT 01/08/2019 11:29 AM EDT Narrative Resulting Agency Comment Spec In Lab Yareli Morales MD CHEMISTRY ORDERABLES [facility] [place] [address] * (ABNORMAL) Hemoglobin A1c (01/08/2019 11:25 AM EDT) Hemoglobin A1c 7.5(H) 4.3 - 5.6 % [facility] [...] Mellitus, Diabetes Care 2013; 36: Suppl. 1, G62-01 Estimated Average Glucose 169 mg/dL [facility] Comment: eAG [...] into estimated average glucose values. ??Diabetes Care 2008:31(8):7711-1940. Blood specimen (specimen) 01/08/2019 11:25 AM EDT 01/08/2019 11:29 AM EDT Narrative Resulting Agency Comment Spec In Lab Yareli Morales MD CHEMISTRY ORDERABLES [facility] [place] [address] documented in this encounter Visit Diagnoses Diagnosis Type 2 diabetes mellitus without complication, without long-term current use of insulin Misha's thyroiditis Chronic lymphocytic thyroiditis Type 2 diabetes mellitus with hyperglycemia, with long-term current use of insulin Misha's thyroiditis Chronic lymphocytic thyroiditis Vitamin D deficiency Unspecified vitamin D deficiency Hypertriglyceridemia Pure hyperglyceridemia documented in this encounter Care Teams Health Club Manager Relationship Specialty Start Date End Date Leonor Hendricks MD [address] [place] [address] PCP - General Family Medicine 11/27/16 documented as of this encounter
--- OUTSIDE RECORDS SUMMARY | 2024-06-19 14:50 | XMS_ITS | Encounter Summary ---
[place] [address] Care Team Providers Care Wood Molder Name Role Phone Leonor Hendricks MD Primary Care Provider [phone] Encounter Details Date Type Department Care Team (Late st Contact Info) Description 04/17/2018 1:00 PM EDT Office [place] [phone] Yareli Morales MD Type 2 diabetes mellitus [...] glucometer currently Hypoglycemia: none Diet: B - luxembourger muffin + butter, sometimes PB, banana L [...] ophtho evaluation - sees Dr. Martin at [facility]. 4) CV disease - LDL PAST [...] Reactions ??? Stelara [Ustekinumab] Other (See Comments) Iqqegdzxa-gnayusw-[id number] SOCIAL HISTORY: Social History Tobacco Use Smoking [...] Office Visit from 04/17/2018 in Endocrinology at [place] Weight 107 kg (236 lb) Height 160 [...] patient on DM mgmt. YARELI MORALES MD Packing Machine Tendersilk screen printing racker Section of Endocrinology [facility] documented in this encounter Plan of Treatment Upcoming Encounters Date Type Department Care Team (Late st Contact Info) Description 06/23/2024 11:30 AM EST TH Visit (TeleHealth) [place] [address] Blade Martinez MD [facility] [place] [address] 05/10/2025 4:30 PM EST Office Visit Dermatology at [place] [address] [place] [address] Andreas Richardson MD [address], [place] [address] documented as of this encounter Results * LDL Cholesterol, Direct (07/24/2018 11:27 AM EST) Pathologist [facility] LDL Cholesterol, Direct 115 mg/dL [facility] Comment: Lowest Risk: <100 mg/dL Lower Risk: 100-129 mg/dL Borderline High Risk: 130-159 mg/dL High Risk: 160-189 mg/dL Very High Risk: >ax=939 mg/dL Blood specimen (specimen) 07/24/2018 11:27 AM EST 07/24/2018 11:40 AM EST Narrative Resulting Agency Comment Spec In Lab Yareli Morales MD CHEMISTRY ORDERABLES [facility] [place] [address] * (ABNORMAL) Hemoglobin A1c (07/24/2018 11:27 AM EST) Hemoglobin A1c 11.2(H) 4.3 - 5.6 % [facility] [...] 36: Suppl. 1, S67-74 Estimated Average Glucose 275 mg/dL [facility] Comment: eAG [...] into estimated average glucose values. ??Diabetes Care 2008:31(8):9877-5153. Blood specimen (specimen) 07/24/2018 11:27 AM EST 07/24/2018 11:40 AM EST Narrative Resulting Agency Comment Spec In Lab Yareli Morales MD CHEMISTRY ORDERABLES [facility] [place] [address] * (ABNORMAL) T3, free (07/24/2018 11:27 AM EST) Free T3 1.9(L) 2.0 - 4.4 pg/mL [facility] Blood specimen (specimen) 07/24/2018 11:27 AM EST 07/24/2018 11:40 AM EST Narrative Resulting Agency Comment Spec In Lab Yareli Morales MD CHEMISTRY ORDERABLES Performing Organization Address City/[facility] [address]/ZIP Co de Phone Number [facility] [place] [address] * T4, free (07/24/2018 11:27 AM EST) Free T4 0.98 0.93 - 1.70 ng/dL [facility] Blood specimen (specimen) 07/24/2018 11:27 AM EST 07/24/2018 11:40 AM EST Narrative Resulting Agency Comment Spec In Lab Yareli Morales MD CHEMISTRY ORDERABLES Performing Organization Address City/[facility] [address]/ZIP Co de Phone Number [facility] [place] [address] * (ABNORMAL) TSH (07/24/2018 11:27 AM EST) Thyroid Stimulating Hormone 4.30(H) 0.27 - 4.20 mlU/ML [facility] Blood specimen (specimen) 07/24/2018 11:27 AM EST 07/24/2018 11:40 AM EST Narrative Resulting Agency Comment Spec In Lab Yareli Morales MD CHEMISTRY ORDERABLES Performing Organization Address City/[facility] [address]/[facility] Co de Phone Number [facility] [place] [address] documented in this encounter Visit Diagnoses Diagnosis Type 2 diabetes mellitus without complication, without long-term current use of insulin Misha's thyroiditis Chronic lymphocytic thyroiditis Type 2 diabetes mellitus with hyperglycemia, with long-term current use of insulin Misha's thyroiditis Chronic lymphocytic thyroiditis Vitamin D deficiency Unspecified vitamin D deficiency Hypertriglyceridemia Pure hyperglyceridemia documented in this encounter Care Teams Wood Molder Relationship Specialty Start Date End Date Leonor Hendricks MD [address] [place] [address] PCP - General Family Medicine 11/27/16 documented as of this encounter
--- OUTSIDE RECORDS SUMMARY | 2024-06-19 14:50 | XMS_ITS | Encounter Summary ---
Author Organization [facility] [place] [address] Care Team Providers Care Boss Dyer Name Role Phone Leonor Hendricks MD Primary Care Provider [phone] Reason for Visit * Reason Comments Follow-up Psoriasis Encounter Details Date Type Department Care Team (Late st Contact Info) Description 10/14/2017 4:30 PM EDT Office Visit Dermatology at [address] [address] Andreas Richardson MD [address] [facility], MESSI A DERMATOLOGY [place], [place] [phone] Psoriasis Social History Tobacco Use Types Packs/Day [...] AM EST TH Visit (TeleHealth) [place] [address] Blade Martinez MD [facility] [place] [place] [address] 05/10/2025 4:30 PM EST Office Visit Dermatology at [place] [address] [facility] [place] [address] Andreas Richardson MD [address], [place] [address] documented as of this encounter Visit Diagnoses Diagnosis Psoriasis Other psoriasis Type 2 diabetes mellitus with hyperglycemia, with long-term current use of insulin Misha's thyroiditis Chronic lymphocytic thyroiditis Vitamin D deficiency Unspecified vitamin D deficiency Hypertriglyceridemia Pure hyperglyceridemia documented in this encounter Care Teams Boss Dyer Relationship Specialty Start Date End Date Leonor Hendricks MD [address] [place] [address] PCP - General Family Medicine 11/27/16 documented as of this encounter
--- OUTSIDE RECORDS SUMMARY | 2024-06-19 14:50 | XMS_ITS | Encounter Summary ---
Author Organization [facility] [place] [address] Care Team Providers Care Pipe Fittings Molder Name Role Phone Leonor Hendricks MD Primary Care Provider [phone] Encounter Details Date Type Department Care Team (Late st Contact Info) Description 09/26/2017 4:00 PM EDT Office Visit Sleep Center at [facility] [address] [place] [address] Lucrecia Vang APRN MAGDALENE on CPAP Social [...] drive if drowsy, if drowsy while driving, press puller and nap. --Follow-up: RTC 1 year [...] a severe degree (AHI of 93.9) noted. [facility] AHI of 40.2 which includes only apneas [...] she likes it Chin Strap: no HCC: [facility], 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 --Follow-up: RTC 1 year [...] AM EST TH Visit (TeleHealth) [place] [address] Blade Martinez MD [facility] [place] [address] 05/10/2025 4:30 PM EST Office Visit Dermatology at [place] [address] [facility] [place] [address] Andreas Richardson MD [address], [place] [address] documented as of this encounter Visit Diagnoses Diagnosis MAGDALENE on CPAP Obstructive sleep apnea (adult) (pediatric) Type 2 diabetes mellitus with hyperglycemia, with long-term current use of insulin Misha's thyroiditis Chronic lymphocytic thyroiditis Vitamin D deficiency Unspecified vitamin D deficiency Hypertriglyceridemia Pure hyperglyceridemia documented in this encounter Care Teams Pipe Fittings Molder Relationship Specialty Start Date End Date Leonor Hendricks MD [address] [place] [address] PCP - General Family Medicine 11/27/16 documented as of this encounter
--- OUTSIDE RECORDS SUMMARY | 2024-06-19 14:50 | XMS_ITS | Encounter Summary ---
Author Organization [facility] [place] [address] Care Team Providers Care Geospatial Intelligence Analyst Name Role Phone Leonor Hendricks MD Primary Care Provider [phone] Encounter Details Date Type Department Care Team (Late st Contact Info) Description 08/08/2018 Refill Dermatology at [address] [address] Baylee Mart, MEDICAL COLLECTIONS REPRESENTATIVE Social History Tobacco Use Types Packs/Day Years [...] AM EST TH Visit (TeleHealth) [place] [address] Blade Martinez MD [facility] [place] [address] 05/10/2025 4:30 PM EST Office Visit Dermatology at [address] [phone] Andreas Richardson MD [address] [place] [address], DAREK A DERMATOLOGY [place], [place] [address] documented as of this encounter Visit Diagnoses Not on filedocumented in this encounter Care Teams Geospatial Intelligence Analyst Relationship Specialty Start Date End Date Leonor Hendricks MD [address] [place] [address] PCP - General Family Medicine 11/27/16 documented as of this encounter
--- OUTSIDE RECORDS SUMMARY | 2024-06-19 14:50 | XMS_ITS | Encounter Summary ---
Author Organization [facility] [place] [address] Care Team Providers Care Probate Paralegal Name Role Phone Leonor Hendricks MD Primary Care Provider [phone] Encounter Details Date Type Department Care Team (Late st Contact Info) Description 02/25/2018 3:30 PM EDT Office [place] [address] [address] [facility] [place] [address] Psoriasis; Psoriatic arthritis; High risk medication use [...] next . She is also seeing a celluloid trimmer who reports that her cortisol testing is off. The celluloid trimmer felt aln on her neck during the exam and an US confirmed the ln and a CT neck was completed today. Since she has been off of therapy for her psoriasis it has been quite active on her hands, dorsum of her feet, knees and elbows. Her dough panner wants to start cosentyx but she wanted [...] months sooner with any changes CC: Leonor Hendricsk MD documented in this encounter Plan of Treatment Upcoming Encounters Date Type Department Care Team (Late st Contact Info) Description 06/23/2024 11:30 AM EST TH Visit (TeleHealth) [place] [address] Blade Martinez MD [facility] [place] [address] 05/10/2025 4:30 PM EST Office Visit Dermatology at [address] [place] [address] Andreas Richardson MD [address] [facility], [place] [address] documented as of this encounter Visit Diagnoses Diagnosis Psoriasis Other psoriasis Psoriatic arthritis Psoriatic arthropathy High risk medication use Encounter for long-term (current) use of other medications Type 2 diabetes mellitus with hyperglycemia, with long-term current use of insulin Ming's thyroiditis Chronic lymphocytic thyroiditis Vitamin D deficiency Unspecified vitamin D deficiency Hypertriglyceridemia Pure hyperglyceridemia documented in this encounter Care Teams Probate Paralegal Relationship Specialty Start Date End Date Leonor Hendricks MD [address] [place] [address] PCP - General Family Medicine 11/27/16 documented as of this encounter
--- OUTSIDE RECORDS SUMMARY | 2024-06-19 14:50 | XMS_ITS | Encounter Summary ---
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 Her hands are in out of water [...] AM EST TH Visit (TeleHealth) [place] [address] Blade Martinez MD [facility] [place] [address] 05/10/2025 4:30 PM EST Office Visit Dermatology at [place] [address] [facility] [place] [address] Andreas Richardson MD [address], [place] [address] documented as of this encounter Visit Diagnoses Diagnosis Psoriasis Other psoriasis Type 2 diabetes mellitus with hyperglycemia, with long-term current use of insulin Misha's thyroiditis Chronic lymphocytic thyroiditis Vitamin D deficiency Unspecified vitamin D deficiency Hypertriglyceridemia Pure hyperglyceridemia documented in this encounter Care Teams Mainframe Analyst Relationship Specialty Start Date End Date Leonor Hendricks MD [address] [place] [address] PCP - General Family Medicine 11/27/16 documented as of this encounter
--- OUTSIDE RECORDS SUMMARY | 2024-06-19 14:50 | XMS_ITS | Encounter Summary ---
Author Organization [facility] [place] [address] Care Team Providers Care Topline Beading Machine Tender Name Role Phone Leonor Hendricks MD Primary Care Provider [phone] Encounter Details Date Type Department Care Team (Late st Contact Info) Description 07/22/2017 Refill Dermatology at [address] [address] Baylee Mart, FARM IMPLEMENT ENGINE MECHANIC Social History Tobacco Use Types Packs/Day Years [...] AM EST TH Visit (TeleHealth) [place] [address] Blade Martinez MD [facility] [place] [address] 05/10/2025 4:30 PM EST Office Visit Dermatology at [address] [phone] Andreas Richardson MD [address] [place] [address], DAREK A DERMATOLOGY [place], [place] [phone] documented as of this encounter Visit Diagnoses Not on filedocumented in this encounter Care Teams Topline Beading Machine Tender Relationship Specialty Start Date End Date Leonor Hendricks MD [address] [place] [address] PCP - General Family Medicine 11/27/16 documented as of this encounter
--- OUTSIDE RECORDS SUMMARY | 2024-06-19 14:50 | XMS_ITS | Encounter Summary ---
Author Organization [facility] [place] [address] Care Team Providers Care Kiln Repairer Name Role Phone Leonor Hendricks MD Primary Care Provider [phone] Encounter Details Date Type Department Care Team (Late st Contact Info) Description 02/07/2017 Tele[place] [phone] Beverly Morrow RN Social History Tobacco Use [...] normal range. ?? Thanks so much! ?? Yraeli ?? [facility] message sent. documented in this encounter Plan of Treatment Upcoming Encounters Date Type Department Care Team (Late st Contact Info) Description 06/23/2024 11:30 AM EST TH Visit (TeleHealth) [place] [address] Blade Martinez MD [facility] [place] [address] 05/10/2025 4:30 PM EST Office Visit Dermatology at [place] [address] [place] [address] Andreas Richardson MD [address], [place] [address] documented as of this encounter Visit Diagnoses Not on filedocumented in this encounter Care Teams Kiln Repairer Relationship Specialty Start Date End Date Leonor Hendricks MD [address] [place] [address] PCP - General Family Medicine 11/27/16 documented as of this encounter
--- OUTSIDE RECORDS SUMMARY | 2024-06-19 14:50 | XMS_ITS | Encounter Summary ---
Author Organization Formerly [facility] [place] [address] Care Team Providers Care State Federal Relations Deputy Director Name Role Phone Leonor Hendricks MD Primary Care Provider [phone] Encounter Details Date Type Department Care Team (Late st Contact Info) Description 02/05/2017 External Results [place] [address] Yareli Morales MD Misha's thyroiditis Social History Tobacco Use Types [...] AM EST TH Visit (TeleHealth) [place] [address] Blade Martinez MD [facility] [place] [place] [address] 05/10/2025 4:30 PM EST Office Visit Dermatology at [place] [address] [facility] [place] [address] Andreas Richardson MD [address], [place] [address] documented as of this encounter Procedures Procedure Name Priority Date/Time Associated Diagnosis Comments T3, FREE Routine 01/25/2017 Misha's thyroiditis TSH Routine 01/25/2017 Misha's thyroiditis T4, FREE Routine 01/25/2017 Misha's thyroiditis documented in this encounter Results * (ABNORMAL) T3, free (01/25/2017) Free T3 3.3(Externa l Lab) Blood specimen (specimen) 01/25/2017 Yareli Morales MD CHEMISTRY ORDERABLES * (ABNORMAL) T4, free (01/25/2017) Free T4 0.80(Enroute Controller al Lab) Blood specimen (specimen) 01/25/2017 Yareli [...] hyperglyceridemia documented in this encounter Care Teams State Federal Relations Deputy Director Relationship Specialty Start Date End Date Leonor Hendricks MD [address] [place] [address] PCP - General Family Medicine 11/27/16 documented as of this encounter
--- OUTSIDE RECORDS SUMMARY | 2024-06-19 14:50 | XMS_ITS | Encounter Summary ---
Author Organization [facility] [place] [address] Care Team Providers Care Accounts Receivable Associate Name Role Phone Leonor Hendricks MD Primary Care Provider [phone] Encounter Details Date Type Department Care Team (Late st Contact Info) Description 10/15/2017 Notes [place] [address] Jason Brady, TV NEWS DIRECTOR Social History Tobacco Use Types Packs/Day Years [...] Progress Notes * Jason Brady CPHT - 10/15/2017 2:30 PM EDT [facility] Prior Authorization Medication: [employer] Insurance: [employer] Insurance Phone #: [phone] Insurance Fax #: Submitted verbally ID #: [id number] Spoke With: sandy UNGER Reference #: [id number] Date CORNEL Sent: 10/15/2017 Approval Date: 10/15/2017 - 10/15/2018 Pharmacy: [facility] Notes: The Arben UNGER has been submitted and approved through the [employer] insurance, but patient must fill through [facility]. We will notify the patient of the approval and insurance requirements. documented in this encounter Plan of Treatment Upcoming Encounters Date Type Department Care Team (Late st Contact Info) Description 06/23/2024 11:30 AM EST TH Visit (TeleHealth) [place] [address] Blade Martinez MD [facility] [place] [address] 05/10/2025 4:30 PM EST Office Visit Dermatology at [place] [address] [place] [address] Andreas Richardson MD [address], [place] [address] documented as of this encounter Visit Diagnoses Not on filedocumented in this encounter Care Teams Accounts Receivable Associate Relationship Specialty Start Date End Date Leonor Hendricks MD [address] [place] [address] PCP - General Family Medicine 11/27/16 documented as of this encounter
--- OUTSIDE RECORDS SUMMARY | 2024-06-19 14:50 | XMS_ITS | Encounter Summary ---
Author Organization [facility] [place] [address] Care Team Providers Care Shot Grinder Operator Name Role Phone Leonor Hendricks MD Primary Care Provider [phone] Encounter Details Date Type Department Care Team (Late st Contact Info) Description 07/22/2018 Telephone [place] [address] Elba Emery Social History Tobacco Use Types [...] EST TH Visit (TeleHealth) [place] [address] Blade Martinez MD [facility] [place] [address] 05/10/2025 4:30 PM EST Office Visit Dermatology at [place] [address] [facility] [place] [address] Andreas Richardson MD [address] [facility], [place] [address] documented as of this encounter Visit Diagnoses Not on filedocumented in this encounter Care Teams Shot Grinder Operator Relationship Specialty Start Date End Date Leonor Hendricks MD [address] [place] [address] PCP - General Family Medicine 11/27/16 documented as of this encounter
--- OUTSIDE RECORDS SUMMARY | 2024-06-19 14:50 | XMS_ITS | Encounter Summary ---
Author Organization [facility] [place] [address] Care Team Providers Care Auto Self Service Station Attendant Name Role Phone Leonor Hendricks MD Primary Care Provider [phone] Encounter Details Date Type Department Care Team (Late st Contact Info) Description 07/15/2018 Telephone [place] [address] Katarzyna Webb Social History Tobacco Use Types [...] AM EST TH Visit (TeleHealth) [place] [address] Blade Martinez MD [facility] [place] [place] [address] 05/10/2025 4:30 PM EST Office Visit Dermatology at [place] [address] [facility] [place] [address] Andreas Richardson MD [address], [place] [address] documented as of this encounter Visit Diagnoses Not on filedocumented in this encounter Care Teams Auto Self Service Station Attendant Relationship Specialty Start Date End Date Leonor Hendricks MD [address] [place] [address] PCP - General Family Medicine 11/27/16 documented as of this encounter
--- OUTSIDE RECORDS SUMMARY | 2024-06-19 14:50 | XMS_ITS | Encounter Summary ---
Author Organization [facility] [place] [address] Care Team Providers Care Milk Hauler Name Role Phone Leonor Hendricks MD Primary Care Provider [phone] Encounter Details Date Type Department Care Team (Late st Contact Info) Description 01/11/2017 Orders Only [facility] [address] [place] [address] Marci Cintron MD [facility] [place] [address] Social History Tobacco Use Types Packs/Day Years [...] No Requires 1:1 Care: No Requires Parent/Caregiver: [place] of Parent/Caregiver staying: Using Home Oxygen: No [...] AM EST TH Visit (TeleHealth) [place] [address] Blade Martinez MD [facility] [place] [place] [address] 05/10/2025 4:30 PM EST Office Visit Dermatology at [address] [place] [address] Andreas Richardson MD [address], [place] [address] documented as of this encounter Visit Diagnoses Not on filedocumented in this encounter Care Teams Milk Hauler Relationship Specialty Start Date End Date Leonor Hendricks MD [address] [place] [address] PCP - General Family Medicine 11/27/16 documented as of this encounter"
--- OUTSIDE RECORDS SUMMARY | 2024-06-19 14:50 | XMS_ITS | Encounter Summary ---
Author Organization [facility] [place] [address] Care Team Providers Care Drapery Rod Assembler Name Role Phone Leonor Hendricks MD Primary Care Provider [phone] Encounter Details Date Type Department Care Team (Latest Contact Info) Description 07/24/2018 12:30 PM EST Laboratory Appointment Lab [address] [address] Hyperglycemia; Misha's thyroiditis; Type 2 diabetes mellitus [...] AM EST TH Visit (TeleHealth) [place] [address] Blade Martinez MD [facility] [place] [address] 05/10/2025 4:30 PM EST Office Visit Dermatology at [address] [place] [address] Andreas Richardson MD [address], [place] [address] documented as of this encounter Procedures Procedure [...] Morales MD CHEMISTRY ORDERABLES [facility] [place] [address] * T4, free (07/24/2018 11:27 AM EST) Free T4 0.98 0.93 - 1.70 ng/dL [facility] Blood specimen (specimen) 07/24/2018 11:27 AM EST 07/24/2018 11:40 AM EST Narrative Resulting Agency Comment Spec In Lab Yareli Morales MD CHEMISTRY ORDERABLES [facility] [place] [address] * (ABNORMAL) Hemoglobin A1c (07/24/2018 11:27 AM [...] Mellitus, Diabetes Care 2013; 36: Suppl. 1, S67-39 Estimated Average Glucose 275 mg/dL [facility] [...] are available on the ADA website. Grayson DM, Suresh J, Brianna R, et al. ??Translating the A1C assay into estimated average glucose values. ??Diabetes Care 2008:31(8):5935-4940. Blood specimen (specimen) 07/24/2018 11:27 AM EST 07/24/2018 11:40 AM EST Narrative Resulting Agency Comment Spec In Lab Yareli Morales MD CHEMISTRY ORDERABLES Performing Organization Address [facility] Co de Phone Number [facility] [place] [address] * LDL Cholesterol, Direct (07/24/2018 11:27 AM EST) LDL Cholesterol, Direct 115 mg/dL [facility] Comment: Lowest Risk: <100 mg/dL Lower Risk: 100-129 mg/dL Borderline High Risk: 130-159 mg/dL High Risk: 160-189 mg/dL Very High Risk: >ow=168 mg/dL Blood specimen (specimen) 07/24/2018 11:27 AM EST 07/24/2018 11:40 AM EST Narrative Resulting Agency Comment Spec In Lab Yareli Morales MD CHEMISTRY ORDERABLES Performing Organization Address [facility] Co de Phone Number [facility] [place] [address] * (ABNORMAL) T3, free (07/24/2018 11:27 AM EST) Free T3 1.9(L) 2.0 - 4.4 pg/mL [facility] Blood specimen (specimen) 07/24/2018 11:27 AM EST 07/24/2018 11:40 AM EST Narrative Resulting Agency Comment Spec In Lab Yareli Morales MD CHEMISTRY ORDERABLES Performing Organization Address [facility] Co de Phone Number [facility] [place] [address] * (ABNORMAL) CMP w/fasting Glucose (07/24/2018 11:27 AM EST) [facility] Signature Glucose Fasting 315(H) 65 - 99 mg/dL [facility] Comment: ?Fasting* Glucose Interpretive Criteria Normal [...] of Diabetes Mellitus, Position Statement from the [place] [employer]. ??Diabetes Care, Volume 33, Supplement 1, Jun 2009 Blood Urea Nitrogen 15 8 - 18 mg/dL [facility] Creatinine 0.76 0.70 - 1.20 mg/dL [facility] Sodium 132(L) 135 - 145 mmol/L [facility] Potassium 4.5 3.5 - 5.0 mmol/L [facility] Comment: Please note: ??Patients with WBC >100,000 may have falsely elevated Potassium levels. ??For accurate Potassium quantification in these patients send serum separator tube (gold top) for subsequent determinations. ??Contact the Clinical Chemistry Laboratory if there are any questions. Chloride 92(L) 98 - 107 mmol/L [facility] Carbon Dioxide 24 22 - 31 mmol/L [facility] Anion Gap 16(H) 5 - 15 mmol/L [facility] Calcium 9.4 8.5 - 10.5 mg/dL [facility] Protein, Total 7.8 6.1 - 8.0 gm/dL [facility] Albumin 4.3 3.2 - 5.2 gm/dL [facility] Aspartate Aminotransferase 42(H) 0 - 30 unit/L [facility] Alanine Aminotransferase 44(H) 0 - 30 unit/L [facility] Alkaline Phosphatase 115(H) 40 - 104 unit/L [facility] Bilirubin, Total <0.2(L) 0.2 - 1.3 mg/dL [facility] Est Glomerular Filtration Rate 95 >=60 mL/min/1. 73 m?? [facility] Comment: The eGFR was calculated using the CKD-EPI equation. As with all creatinine based estimates of kidney function, eGFR values calculated with the CKD-EPI equation are not accurate in patients with acute kidney failure, extremes of body mass or the acutely ill. [email or web address]LERnkf eGFR 110 >=60 mL/min/1. 73 m?? [facility] Comment: The eGFR was calculated using the CKD-EPI equation. As with all creatinine based estimates of kidney function, eGFR values calculated with the CKD-EPI equation are not accurate in patients with acute kidney failure, extremes of body mass or the acutely ill. [email or web address]ERnkf Blood specimen (specimen) 07/24/2018 11:27 AM EST 07/24/2018 11:40 AM EST Narrative Resulting Agency Comment Spec In Lab Yareli Morales MD CHEMISTRY ORDERABLES Performing Organization Address City/[facility]/ZIP Co de Phone Number [facility] [place] [address] * (ABNORMAL) C-peptide (07/24/2018 11:27 AM EST) C-Peptide 5.6(H) 0.8 - 5.2 ng/mL [facility] Blood specimen (specimen) 07/24/2018 11:27 AM EST 07/24/2018 11:40 AM EST Narrative Resulting Agency Comment Spec In Lab Yareli Morales MD CHEMISTRY ORDERABLES Performing Organization Address City/[facility]/ZIP Co de Phone Number [facility] [place] [address] documented in this encounter Visit Diagnoses Diagnosis Hyperglycemia Other abnormal glucose Misha's thyroiditis Chronic lymphocytic thyroiditis Type 2 diabetes mellitus without complication, without long-term current use of insulin Type 2 diabetes mellitus with hyperglycemia, with long-term current use of insulin Misha's thyroiditis Chronic lymphocytic thyroiditis Vitamin D deficiency Unspecified vitamin D deficiency Hypertriglyceridemia Pure hyperglyceridemia documented in this encounter Care Teams Drapery Rod Assembler Relationship Specialty Start Date End Date Leonor Hendricks MD [address] [place] [address] PCP - General Family Medicine 11/27/16 documented as of this encounter
--- OUTSIDE RECORDS SUMMARY | 2024-06-19 14:50 | XMS_ITS | Encounter Summary ---
[place] [address] Care Team Providers Care Stationary Engineer Name Role Phone Leonor Hendricks MD Primary Care Provider [phone] Encounter Details Date Type Department Care Team (Latest Contact Info) Description 03/18/2017 10:27 AM EDT - 03/18/2017 11:59 PM EDT Hospital Encounter Hematology [place] [address] Neutrophilic leukocytosis Discharge Disposition: Home Social History [...] EST TH Visit (TeleHealth) [place] [address] Blade Martinez MD [facility] [place] [address] 05/10/2025 4:30 PM EST Office Visit Dermatology at [place] [address] [facility] [place] [address] Andreas Richardson MD [address], [place] [address] documented as of this encounter Procedures Procedure [...] 10:36 AM EDT) Neutrophil % 64.1 % [facility] Neutrophil Absolute 6.19(H) 1.70 - 6.10 x10(3)/mc L [facility] Lymph % 27.8 % [facility] Lymphocytes Abs 2.7 0.9 - 3.2 x10(3)/mc L [facility] Monocyte % 5.2 % [facility] Monocyte Abs 0.5 0.3 - 0.9 x10(3)/mc L [facility] Eos % 1.0 % [facility] Eosinophils Abs 0.1 0.0 - 0.4 x10(3)/mc L [facility] Basophil % 0.7 % [facility] Baso Absolute 0.1 0.0 - 0.1 x10(3)/mc L [facility] Immature Gran % 1.20 % [facility] Comment: Immature granulocytes(IG's)percentage and absolute count will include metamyelocytes, myelocytes, and promyelocytes. Blood smears from CBCs yielding IG's will be scanned manually for concordance. If this scan disagrees with the automated IG or if promyelocytes are noted, a manual differential will be performed. Immature Gran Absolute 0.12(H) 0.00 - 0.04 x10(3)/mc L [facility] Blood specimen (specimen) 03/18/2017 10:36 AM EDT 03/18/2017 10:45 AM EDT Narrative Resulting Agency Comment Spec In Lab Abeba Barakat MD HEMATOLOGY ORDERABLE S [facility] [place] [address] * (ABNORMAL) Hemogram (03/18/2017 10:36 AM EDT) Pathologist [facility] White Blood Cell 9.7(H) 4.0 - 9.5 x10(3)/mc L [facility] Red Blood Cell 4.53 4.00 - 5.21 x10(6)/mc L [facility] Hemoglobin 13.7 11.7 - 15.5 gm/dL [facility] Hematocrit 40.1 35.7 - 45.8 % [facility] Mean Cell Volume 88.5 82.6 - 94.[address] [facility] Mean Cell Hemoglobin 30.2 27.1 - 32.[address] [facility] Mean Cell Hemoglobin Concentration 34.2 31.7 - 35.0 gm/dL [facility] Platelet 234 145 - 357 x10(3)/ L [facility] RDW Standard Deviation 42.8 37.0 - 46.[address] [facility] RDW coefficient of variation 13.1 11.5 - 14.1 % [facility] Mean Platelet Volume 11.2 7.6 - 12.[address] [facility] NRBC% auto 0.0 % [facility] NRBC Absolute 0.000 0.000 - 0.000 x10(3)/ L [facility] Blood specimen (specimen) 03/18/2017 10:36 AM EDT 03/18/2017 10:45 AM EDT Narrative Resulting Agency Comment Spec In Lab Abeba Barakat MD HEMATOLOGY ORDERABLE S [facility] [place] [address] * BCR-ABL1 (p210) by RT-PCR, Quantitative (03/18/2017 10:36 AM EDT) [facility] BCR/ABL Report BCR-ABL1 Analysis by Quantitative [...] is used in quantitative reverse transcriptase PCR ([employer] qPCR BCR-ABL IS Kit, [employer]) for the detection of the e13/a2 or e14/a2 major breakpoint BCR-ABL transcripts corresponding to the p210 fusion protein. This assay is validated to detect these fusion transcripts at concentrations as low as 0.002% BCR-ABL1 (IS) or a log reduction of 4.7 (MR4.7). LIMITATIONS AND DISCLAIMERS: ??This assay is designed to detect the [id number] BCR-ABL1 transcripts (e13/a2 and e14/a2) only. This assay is not designed to detect p190 (e19/a2) or other less common BCR-ABL1 fusion transcripts. This test was developed and its performance characteristics determined by the [facility] (CGAT) Laboratory at [facility]. It has not been cleared or approved by the FDA. The laboratory is regulated under CLIA as qualified to perform high-complexity testing. This test is used for clinical purposes. It should not be regarded as investigational or for research. [facility] Comment: [VERIFIED DATE]03.22.17 Verified By:Earlene PhD, Koffi De La Rosa Director, Molecular Pathology (Electronic Signature) Blood specimen (specimen) 03/18/2017 10:36 AM EDT 03/18/2017 11:46 AM EDT Narrative Resulting Agency Comment Spec In Lab Abeba Barakat MD MOLECULAR ORDERABLES [facility] [place] [address] * JAK2 (03/18/2017 10:36 AM EDT) JAK2 (Inter) JAK2 [id number] Somatic Variant Genotyping RESULTS: The [...] Genomics and Advanced Technology (CGAT) Laboratory at [facility]. It has not been cleared or approved by the FDA. The laboratory is regulated under CLIA as qualified to perform high-complexity testing. This test is used for clinical purposes. It should not be regarded as investigational or for research. [facility] Comment: [VERIFIED DATE]03.22.17 Verified By:Earlene Zarate, Koffi De La Rosa Director, Molecular Pathology (Electronic Signature) Blood specimen (specimen) 03/18/2017 10:36 AM EDT 03/18/2017 11:46 AM EDT Narrative Resulting Agency Comment Spec In Lab Abeba Barakat MD HEMATOLOGY ORDERABLE S [facility] [place] [address] documented in this encounter Visit Diagnoses Diagnosis Neutrophilic leukocytosis Other specified disease of white blood cells Type 2 diabetes mellitus with hyperglycemia, with long-term current use of insulin Misha's thyroiditis Chronic lymphocytic thyroiditis Vitamin D deficiency Unspecified vitamin D deficiency Hypertriglyceridemia Pure hyperglyceridemia documented in this encounter Care Teams Stationary Engineer Relationship Specialty Start Date End Date Leonor Hendricks MD [address] [place] [address] PCP - General Family Medicine 11/27/16 documented as of this encounter
--- OUTSIDE RECORDS SUMMARY | 2024-06-19 14:50 | XMS_ITS | Encounter Summary ---
Author Organization [facility] [place] [address] Care Team Providers Care Neon Sign Installer Name Role Phone Leonor Hendricks MD Primary Care Provider [phone] Reason for Visit * Consultation (Routine) - Closed Specialty Diagnoses / Procedures Referred By Contac t Referred To Contact Hematology and Oncology Diagnoses elevated WBCS Leonor Hendricks MD [address] [place] [address] [facility] Hem Onc [address] [place] [address] Referral ID Status Reason Start Date Expiration Date V isits Requested Visits Authorized [id number] Closed Consult, Test & Treat Connection Center 01/29/2017 01/29/2018 1 1 Encounter Details Date Type Department Care Team (Late st Contact Info) Description 03/18/2017 10:00 AM EDT Office Visit Hematology [place] [address] Jose Ramon Barakat MD [facility] DR HEMATOLOGY [place] [address] Neutrophilic leukocytosis Social History Tobacco Use Types [...] the request of Leonor Saldana MD [address] [place] [address] for the evaluation of leukocytosis/neutrophilia. I have [...] 03/12/2011 Past Medical History: Diagnosis Date ??? Misha's thyroiditis ??? Psoriasis Past Surgical History: Procedure Laterality Date ??? ABLATION OF DYSRHYTHMIC FOCUS ??? 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 Stelara [Ustekinumab] Other (See Comments) Aookxirig-nmrvvqy-xuxoyqbld Medications: Current Outpatient Prescriptions Medication Sig Dispense [...] EST TH Visit (TeleHealth) [place] [address] Blade Martinez MD [facility] [place] [address] 05/10/2025 4:30 PM EST Office Visit Dermatology at [place] [address] [place] [address] Andreas Richardson MD [address] [facility], [place] [address] documented as of this encounter Results * BCR-ABL1 (p210) by RT-PCR, Quantitative (03/18/2017 10:36 AM EDT) [facility] BCR/ABL Report BCR-ABL1 Analysis by Quantitative RT-PCR [...] is used in quantitative reverse transcriptase PCR (Digital [employer]ury qPCR BCR-ABL IS Kit, [employer]) for the detection of the e13/a2 or e14/a2 major breakpoint BCR-ABL transcripts corresponding to the p210 fusion protein. This assay is validated to detect these fusion transcripts at concentrations as low as 0.002% BCR-ABL1 (IS) or a log reduction of 4.7 (MR4.7). LIMITATIONS AND DISCLAIMERS: ??This assay is designed to detect the [id number] BCR-ABL1 transcripts (e13/a2 and e14/a2) only. This assay is not designed to detect p190 (e19/a2) or other less common BCR-ABL1 fusion transcripts. This test was developed and its performance characteristics determined by the [facility] (CGAT) Laboratory at [facility]. It has not been cleared or approved by the FDA. The laboratory is regulated under CLIA as qualified to perform high-complexity testing. This test is used for clinical purposes. It should not be regarded as investigational or for research. [facility] Comment: [VERIFIED DATE]03.22.17 Verified By:Earlene PhD, Koffi De La Rosa Director, Molecular Pathology (Electronic Signature) Blood specimen (specimen) 03/18/2017 10:36 AM EDT 03/18/2017 11:46 AM EDT Narrative Resulting Agency Comment Spec In Lab Jose Ramon Barakat MD MOLECULAR ORDERABLES [facility] [place] [address] * JAK2 (03/18/2017 10:36 AM EDT) JAK2 [...] Genomics and [facility] Technology (CGAT) Laboratory at [facility]. It has not been cleared or approved by the FDA. The laboratory is regulated under CLIA as qualified to perform high-complexity testing. This test is used for clinical purposes. It should not be regarded as investigational or for research. [facility] Comment: [VERIFIED DATE]03.22.17 Verified By:Earlene PhD, Koffi De La Rosa Director, Molecular Pathology (Electronic Signature) Blood specimen (specimen) 03/18/2017 10:36 AM EDT 03/18/2017 11:46 AM EDT Narrative Resulting Agency Comment Spec In Lab Jose Ramon Barakat MD HEMATOLOGY ORDERABLE S [facility] [place] [address] documented in this encounter Visit Diagnoses Diagnosis Neutrophilic leukocytosis Other specified disease of white blood cells Type 2 diabetes mellitus with hyperglycemia, with long-term current use of insulin Misha's thyroiditis Chronic lymphocytic thyroiditis Vitamin D deficiency Unspecified vitamin D deficiency Hypertriglyceridemia Pure hyperglyceridemia documented in this encounter Care Teams Neon Sign Installer Relationship Specialty Start Date End Date Leonor Hendricks MD [address] [place] [address] PCP - General Family Medicine 11/27/16 documented as of this encounter
--- OUTSIDE RECORDS SUMMARY | 2024-06-19 14:50 | XMS_ITS | Encounter Summary ---
Author [facility] [place] [address] Care Team Providers Care Hedis Specialist Name Role Phone Leonor Hendricks MD Primary Care Provider [phone] Encounter Details Date Type Department Care Team (Late st Contact Info) Description 07/24/2018 1:30 PM EST Office [place] [address] Yareli Morales MD Misha's thyroiditis; Type 2 diabetes mellitus with [...] unaffordable, please call the office or send GooodJob message to let Dr. Morales know. In [...] glucometer currently Hypoglycemia: none Diet: B - albanian muffin + butter, sometimes PB, banana L [...] Reactions ??? Stelara [Ustekinumab] Other (See Comments) Yfcrdfajn-qheepzr-uzkqgeyxl SOCIAL HISTORY: Social History Tobacco Use Smoking [...] Office Visit from 07/24/2018 in Endocrinology at [place] Weight 108.2 kg (238 lb 9.6 oz) [...] once weekly and dietary optimization, working with audio/visual manager. She has not had a way to [...] unaffordable, please call the office or send GooodJob message to let me know. In that [...] patient on DM mgmt. YARELI MORALES MD Coal Sample Testermanufacturing development engineer Section of Endocrinology [facility] documented in this encounter Plan of Treatment Upcoming Encounters Date Type Department Care Team (Late st Contact Info) Description 06/23/2024 11:30 AM EST TH Visit (TeleHealth) [place] [address] Blade Martinez MD [facility] [place] [address] 05/10/2025 4:30 PM EST Office Visit Dermatology at [place] [address] [place] [address] Andreas Richardson MD [address] [facility], [place] [address] documented as of this encounter Results * (ABNORMAL) Hepatic Function Panel (10/09/2018 10:56 AM EDT) Protein, Total 8.3(H) 6.1 - 8.0 gm/dL [facility] Albumin 4.5 3.2 - 5.2 gm/dL [facility] Aspartate Aminotransferase 24 0 - 30 unit/L [facility] Alanine Aminotransferase 41(H) 0 - 30 unit/L [facility] Alkaline Phosphatase 102 40 - 104 unit/L [facility] Bilirubin, Total 0.2 0.2 - 1.3 mg/dL [facility] Bilirubin, Direct 0.1 0.0 - 0.3 mg/dL [facility] Blood specimen (specimen) 10/09/2018 10:56 AM EDT 10/09/2018 10:59 AM EDT Narrative Resulting Agency Comment Spec In Lab Yareli Morales MD CHEMISTRY ORDERABLES Performing Organization Address City/[facility]/ZIP Co de Phone Number [facility] [place] [address] * Glucose, random (10/09/2018 10:56 AM EDT) Glucose 116 65 - 199 mg/dL [facility] Comment:Diabetes: >=200 mg/d L plus symptoms Blood specimen (specimen) 10/09/2018 10:56 AM EDT 10/09/2018 10:59 AM EDT Narrative Resulting Agency Comment Spec In Lab Yareli Morales MD CHEMISTRY ORDERABLES Performing Organization Address [facility] Co de Phone Number [facility] [place] [address] * T3, free (10/09/2018 10:56 AM EDT) Free T3 2.1 2.0 - 4.4 pg/mL [facility] Blood specimen (specimen) 10/09/2018 10:56 AM EDT 10/09/2018 10:59 AM EDT Narrative Resulting Agency Comment Spec In Lab Yareli Morales MD CHEMISTRY ORDERABLES Performing Organization Address City/[facility] Co de Phone Number [facility] [place] [address] * (ABNORMAL) T4, free (10/09/2018 10:56 AM EDT) Free T4 0.90(L) 0.93 - 1.70 ng/dL [facility] Blood specimen (specimen) 10/09/2018 10:56 AM EDT 10/09/2018 10:59 AM EDT Narrative Resulting Agency Comment Spec In Lab Yareli Morales MD CHEMISTRY ORDERABLES Performing Organization Address City/[facility] [place] [address] * TSH (10/09/2018 10:56 AM EDT) Thyroid Stimulating Hormone 3.87 0.27 - 4.20 mcIU/mL [facility] Blood specimen (specimen) 10/09/2018 10:56 AM EDT 10/09/2018 10:59 AM EDT Narrative Resulting Agency Comment Spec In Lab Yareli Morales MD CHEMISTRY ORDERABLES Performing Organization Address City/[facility] Co de Phone Number [facility] [place] [address] documented in this encounter Visit Diagnoses Diagnosis Misha's thyroiditis Chronic lymphocytic thyroiditis Type 2 diabetes mellitus with hyperglycemia, without long-term current use of insulin Type 2 diabetes mellitus with hyperglycemia, with long-term current use of insulin Misha's thyroiditis Chronic lymphocytic thyroiditis Vitamin D deficiency Unspecified vitamin D deficiency Hypertriglyceridemia Pure hyperglyceridemia documented in this encounter Care Teams Hedis Specialist Relationship Specialty Start Date End Date Leonor Hendricks MD [address] [place] [address] PCP - General Family Medicine 11/27/16 documented as of this encounter
--- OUTSIDE RECORDS SUMMARY | 2024-06-19 14:51 | XMS_ITS | Encounter Summary ---
Author Organization [facility] [place] [address] Care Team Providers Care Miner Placer Name Role Phone Tristan Soliman DO Primary Care Provider [phone] Encounter Details Date Type Department Care Team (Late st Contact Info) Description 09/19/2016 11:47 AM EDT - 09/19/2016 11:59 PM EDT Hospital Encounter XRay at [address] [place] [address] Jacinta Browne, [facility] [place] [address] Arthralgia of both hands Discharge Disposition: Home [...] AM EST TH Visit (TeleHealth) [place] [address] Blade Martinez MD [facility] [place] [address] 05/10/2025 4:30 PM EST Office Visit Dermatology at [address] [place] [address] Andreas Richardson MD [address] [address], [place] [address] documented as of this encounter Procedures Procedure [...] could reflect ulnocarpal abutment.. Procedure Note Elli Izquiedro MD - 09/19/2016 EXAMINATION: XR HANDS MIN [...] Visit Diagnoses Diagnosis Arthralgia of both hands Type 2 diabetes mellitus with hyperglycemia, with long-term current use of insulin Misha's thyroiditis Chronic lymphocytic thyroiditis Vitamin D deficiency Unspecified vitamin D deficiency Hypertriglyceridemia Pure hyperglyceridemia documented in this encounter Care Teams Miner Placer Relationship Specialty Start Date End Date Tristan Soliman DO [address] [place] [address] [address] [place] [address] PCP - General 05/09/10 11/26/16 documented as of this encounter
--- OUTSIDE RECORDS SUMMARY | 2024-06-19 14:51 | XMS_ITS | Encounter Summary ---
[place] [address] Care Team Providers Care Business Performance Analyst Name Role Phone Tristan Soliman Primary Care Provider [phone] Reason for Visit * Reason Onset Date Comments Prior Authorization 05/22/2016 [place] Ca[place] 05/21 IP PSY Encounter Details Date Type Department Care Team (Late st Contact Info) Description 05/22/2016 [place] [address] Maria Luz Hernandez MD Prior Authorization ([place] Ca[place] 05/21/16 IP PSY) [...] form, res form and H&P note to [phone] for 05/21/16 emergency IPI with Maria Luz Hernandez MD??for F39 (ICD-10-CM) - Unspecified mood (affective) disorder. documented in this encounter Plan of Treatment Upcoming Encounters Date Type Department Care Team (Late st Contact Info) Description 06/23/2024 11:30 AM EST TH Visit (TeleHealth) [place] [address] Blade Martinez MD [facility] [place] [address] 05/10/2025 4:30 PM EST Office Visit Dermatology at [place] [employer] [address] [facility] [address] [place] [address] Andreas Richardson MD [address] [facility] [facility] [address], [place] [address] documented as of this encounter Visit Diagnoses Not on filedocumented in this encounter Care Teams Business Performance Analyst Relationship Specialty Start Date End Date Tristan Soliman DO [address] [facility] [address] [place] [address] PCP - General 05/09/10 11/26/16 documented as of this encounter
--- OUTSIDE RECORDS SUMMARY | 2024-06-19 14:51 | XMS_ITS | Encounter Summary ---
Author Organization [facility] [place] [address] Care Team Providers Care Building Stonecutter Name Role Phone Leonor Hendricks MD Primary Care Provider [phone] Reason for Referral * Consultation (Routine) - Closed Specialty Diagnoses / Procedures Referred By Contac t Referred To Contact Sleep Center Diagnoses Snoring Daytime sleepiness Anxiety Lucrecia Vang APRN [facility] [address] [facility] Sleep Medicine [address] [place] [address] Referral ID Status Reason Start Date Expiration Date V isits Requested Visits Authorized [id number] Closed Test Only 2016 2017 1 1 Reason for Visit * Consultation (Routine) - Specialty Diagnoses / Procedures Referred By Contac t Referred To Contact Sleep Center Diagnoses Sleep concern Yareli Morales MD [facility] [place] [address] [facility] Sleep Medicine [address] [place] [address] Referral ID Status Reason Start Date Expiration Date V isits Requested Visits Authorized [id number] Consult, Test & Treat 10/19/2016 10/19/2017 1 1 Encounter Details Date Type Department Care Team (Late st Contact Info) Description 2016 1:00 PM EDT Office Visit Sleep Center at [address] [place] [address] Lucrecia Vang, ANTOINETTE Snoring; Daytime sleepiness; Anxiety Social History Tobacco [...] Progress Notes * Lucrecia Vang APRN - 2016 1:00 PM EDT Sleep Medicine [...] Gasping: yes Nasal Obstruction: no Daytime Symptoms: [place]: 7, reports anything from mild-severe daytime sleepiness Upon Awakening: always unrefreshed and exhausted Naps: twice during the week; with trazodone, can sleep during day AND still go to bed at night Involuntary Dozing: rare Cognitive Symptoms: yes Driving: drives, drowsy as she would if she sits at home; she would tube puller or not even drive if very [...] that study results can be called to [phone] (M) and a detailed message left if [...] EST TH Visit (TeleHealth) [place] [address] Blade Martinez MD [facility] [place] [address] 05/10/2025 4:30 PM EST Office Visit Dermatology at [place] [address] [place] [address] Andreas Richardson MD [address] [facility], [place] [address] Scheduled Referrals Name Type Priority Associated Diagnoses Orde r Schedule Referral to Sleep Disorders Center Outpatient Referral Routine Snoring Daytime sleepiness Anxiety Ordered: 2016 documented as of this encounter Visit Diagnoses Diagnosis Snoring Other dyspnea and respiratory abnormality Daytime sleepiness Anxiety Anxiety state, unspecified Type 2 diabetes mellitus with hyperglycemia, with long-term current use of insulin Misha's thyroiditis Chronic lymphocytic thyroiditis Vitamin D deficiency Unspecified vitamin D deficiency Hypertriglyceridemia Pure hyperglyceridemia documented in this encounter Care Teams Building Stonecutter Relationship Specialty Start Date End Date Leonor Hendricks MD [address] [place] [address] PCP - General Family Medicine 11/27/16 documented as of this encounter
--- OUTSIDE RECORDS SUMMARY | 2024-06-19 14:51 | XMS_ITS | Encounter Summary ---
[place] [address] Care Team Providers Care Anvil Seating Press Operator Name Role Phone Tristan Soliman DO Primary Care Provider [phone] Reason for Referral * Diagnostic Test (Routine) - Closed Specialty Diagnoses / Procedures Referred By Contac t Referred To Contact Radiology Diagnoses Cervical lymphadenopathy Procedures CT Neck Soft Tissue w Contrast (Generic) Kylee Austin ND [address] [place] [address] [facility] [place] [address] Referral ID Status Reason Start Date Expiration Date V isits Requested Visits Authorized [id number] Closed Specialty Service Requested 09/13/2016 09/13/2017 1 1 Reason for Visit * Diagnostic Test (Routine) - Closed Specialty Diagnoses / Procedures Referred By Contac t Referred To Contact Radiology Diagnoses Cervical lymphadenopathy Procedures CT Neck Soft Tissue w Contrast (Generic) Kylee Austin ND [address] [place] [address] [facility] [place] [address] Referral ID Status Reason Start Date Expiration Date V isits Requested Visits Authorized [id number] Closed Specialty Service Requested 09/13/2016 09/13/2017 1 1 Encounter Details Date Type Department Care Team (Latest Contact Info) Description 09/19/2016 7:44 AM EDT - 09/19/2016 10:59 AM EDT Hospital [place] [address] Kylee Austin, [place] [address] [place] [address] Cervical lymphadenopathy Discharge Disposition: Home Social History [...] AM EST TH Visit (TeleHealth) Endocrinology at [facility] [place] [place] [address] Blade Martinez MD [facility] [place] [address] 05/10/2025 4:30 PM EST Office Visit Dermatology at [place] [address] [facility] [place] [address] Andreas Richardson MD [address], [place] [address] documented as of this encounter Procedures Procedure [...] at 09/19/2016 9:45 AM Kylee Austin ND [facility] ORDERABLES documented in this encounter Visit Diagnoses Diagnosis Cervical lymphadenopathy Enlargement of lymph nodes Type 2 diabetes mellitus with hyperglycemia, with long-term current use of insulin Misha's thyroiditis Chronic lymphocytic thyroiditis Vitamin D deficiency Unspecified vitamin D deficiency Hypertriglyceridemia Pure hyperglyceridemia documented in this encounter Administered Medications Inactive [...] mg documented in this encounter Care Teams Anvil Seating Press Operator Relationship Specialty Start Date End Date Tristan Soliman DO [address] [facility] [place] [address] PCP - General 05/09/10 11/26/16 documented as of this encounter
--- OUTSIDE RECORDS SUMMARY | 2024-06-19 14:51 | XMS_ITS | Encounter Summary ---
Author Organization [facility] [place] [address] Care Team Providers Care Child Support Specialist Name Role Phone Tristan Soliman DO Primary Care Provider [phone] Encounter Details Date Type Department Care Team (Late st Contact Info) Description 05/24/2016 4:45 PM EST Interpretation Only Cardiology at [address] [address] Teo Crystal Jr., MD Palpitations Social History Tobacco Use Types Packs/Day [...] AM EST TH Visit (TeleHealth) [place] [address] Blade Martinez MD [facility] [place] [address] 05/10/2025 4:30 PM EST Office Visit Dermatology at [address] [place] [address] Andreas Richardson MD [address] [place] [address], [place] [address] documented as of this encounter Procedures Procedure Name Priority Date/Time Associated Diagnosis Comments SHEARER HELPER SCAN 05/24/2016 12:00 AM EST HOLTER MONITOR 24 HOUR Routine 05/24/2016 documented in this encounter Results * SCAN DOC: SHEARER HELPER (05/24/2016 12:00 AM EST) Anatomical Region Laterality Modality Other Scanning Provider MEDIA MGR SCAN EXT O RDR/RSLT * Holter Monitor 24hr (05/24/2016) Anatomical Region Laterality Modality Other Narrative 05/24/2016 Jesika Sprague ?: 1970 PCP: Tristan Soliman DO Ordering: Roberto Fonseca MD Holter Report- [facility], [address] [facility] [address] Date of application: 05/20/2016 ?Date of Scan: [...] in this encounter Visit Diagnoses Diagnosis Palpitations Type 2 diabetes mellitus with hyperglycemia, with long-term current use of insulin Misha's thyroiditis Chronic lymphocytic thyroiditis Vitamin D deficiency Unspecified vitamin D deficiency Hypertriglyceridemia Pure hyperglyceridemia documented in this encounter Care Teams Child Support Specialist Relationship Specialty Start Date End Date Tristan Soliman DO [address] [place] [address] PCP - General 05/09/10 11/26/16 documented as of this encounter
--- OUTSIDE RECORDS SUMMARY | 2024-06-19 14:51 | XMS_ITS | Encounter Summary ---
Author Organization [facility] [address] Care Team Providers Care Pile Driving Setter Name Role Phone Jourdan, Tristan OLIVAREZ Primary Care Provider [phone] Encounter Details Date Type Department Care Team (Latest Contact Info) Description 10/20/2016 11:19 AM EDT - 10/20/2016 11:59 PM EDT Hospital [place] [address] Discharge Disposition: Home Social History Tobacco Use [...] AM EST TH Visit (TeleHealth) [place] [address] Blade Martinez MD [facility] [place] [address] 05/10/2025 4:30 PM EST Office Visit Dermatology at [place] [address] [place] [address] Andreas Richardson MD [address], [place] [address] documented as of this encounter Visit Diagnoses Not on filedocumented in this encounter Care Teams Pile Driving Setter Relationship Specialty Start Date End Date Tristan Soliman DO [address] [place] [address] PCP - General 05/09/10 11/26/16 documented as of this encounter
--- OUTSIDE RECORDS SUMMARY | 2024-06-19 14:51 | XMS_ITS | Encounter Summary ---
[place] [address] Care Team Providers Care Unit Supervisor Name Role Phone Tristan Soliman Primary Care Provider Reason for Visit * Reason Onset Date Comments Prior Authorization 05/24/2016 [facility] admit [facility] Encounter Details Date Type Department Care Team (Late st Contact Info) Description 05/24/2016 [place] [phone] Maria Luz Hernandez MD Prior Authorization ([facility]ANGELA admit auth) Social History Tobacco Use Types [...] 05/24/2016 1:27 PM EST Per fax from [employer] A# [id number] 05/21/16 - 05/21/16 emergency IPI with Maria Luz Hernandez MD??for F39 (ICD-10-CM) - Unspecified mood (affective) disorder. documented in this encounter Plan of Treatment Upcoming Encounters Date Type Department Care Team (Late st Contact Info) Description 06/23/2024 11:30 AM EST TH Visit (TeleHealth) [place] [phone] Blade Martinez MD [facility] [place] [address] 05/10/2025 4:30 PM EST Office Visit Dermatology at [place] [address] [facility] [place] [phone] Andreas Richardson MD [address] [place] [address] documented as of this encounter Visit Diagnoses Not on filedocumented in this encounter Care Teams Unit Supervisor Relationship Specialty Start Date End Date Tristan Soliman DO [address] [place] [address] PCP - General 05/09/10 11/26/16 documented as of this encounter
--- OUTSIDE RECORDS SUMMARY | 2024-06-19 14:51 | XMS_ITS | Encounter Summary ---
Author Organization [facility] [place] [id number] Care Team Providers Care Coal Mill Operator Name Role Phone Tristan Soliman Primary Care Provider Reason for Referral * Psychiatric (Routine) - Closed Specialty Diagnoses / Procedures Referred By Rufus carrillo Referred To Contact Psychiatry Diagnoses Anxiety Maria Luz Crisostomo MD [facility] [place] [address] [facility] [place] [address] Referral ID Status Reason Start Date Expiration Date V isits Requested Visits Authorized [id number] Closed Consult, Test & Treat 05/27/2016 05/27/2017 1 1 Reason for Visit * Auth/Cert Specialty Diagnoses / Procedures Referred By Rufus carrillo Referred To Contact Diagnoses Unspecified mood (affective) disorder UNSPECIFIED MOOD DISORDER Procedures EMERGENCY PSYCH IPI Referral ID Status Reason Start Date Expiration Date Visits Re quested Visits Authorized [id number] 1 1 Encounter Details Date Type Department Care Team (Latest Contact Info) Description 05/21/2016 4:34 PM EST - 05/27/2016 1:41 PM EST Hospital Encounter 2 [place] [address] Maria Luz Crisostomo MD Anxiety Discharge Disposition: Home Social History Tobacco [...] Ruslan Sprague Patient Age: 45 y.o. Language: Malaysian Race: White Ethnicity: Not nor Admit date: 05/21/2016 Discharge date and time: 05/27/2016 8:07 AM Attending Physician: Maria Luz Crisostomo MD Discharge Physician: Hilaria Dixon MD Discharge Diagnosis: unspecified anxiety disorder Follow-up Recommendations for Providers: The following medications were started and/or titrated during this hospitalization: 1. Please monitor the patient's condition, and adjust medications accordingly. Follow-up Providers/Appointments: General Inst[place] [address] SaturdayMay 28 at 11:00am Future Appointments and [...] Complaint: ?? 45 y.o. Female presents to [facility] Emergency Department with increased anxiety since 05/16/16 [...] Vit Lvls: Lab Results Component Value Date [id number] 550 05/23/2016 SFOLATE 12.0 05/23/2016 UA: No [...] Provider Contact Information: Emergency Services (Crisis Line): [phone] [facility]: [phone] Hospital Main Line: [phone] Associated attestation - Maria Luz Crisostomo MD [...] - 05/25/2016 12:46 PM EST Sara Simmons [address] [place] [address] SaturdayMay 28 at 11:00am documented in this [...] spontaneous; conversational rate and volume Language: fluent Malaysian; non-profane Mood: much better, good Affect: Improved, [...] Vit Lvls: Lab Results Component Value Date [id number] 550 05/23/2016 SFOLATE 12.0 05/23/2016 UA: Lab [...] tomorrow am at 11 am. Referral to [facility] outpatient psychiatry made. Recommended patient follow up [...] read daily text. Notes: At AA. GROVER TOBNI MS 05/27/2016 * Brenna Correia RN - [...] spontaneous; conversational rate and volume Language: fluent Malaysian; non-profane Mood: better Affect: Improving, brighter Thought [...] Vit Lvls: Lab Results Component Value Date [id number] 550 05/23/2016 SFOLATE 12.0 05/23/2016 UA: Lab [...] attentive and responded to questions asked by junior copywriter or peers. KYARA VO 05/26/2016 Yareli Rodriguez RN - 05/26/2016 6:45 AM EST Pt [...] spontaneous; conversational rate and volume Language: fluent Malaysian; non-profane Mood: anxious Affect: restricted, improving Thought [...] Negative mcL Appearance UA Clear Clear Spec [place] UA 1.006 1.002 - 1.030 Color UA [...] Vit Lvls: Lab Results Component Value Date [id number] 550 05/23/2016 SFOLATE 12.0 05/23/2016 UA: Lab [...] or diagnostic study. ?? * Kyara Oscar Harjinder - 05/25/2016 10:34 AM EST Inpatient Daily Group Note Group: Goals Group Reviewed principles of behavioral activation, discussed the importance of recognizing avoidance andhow to work towards having behavior be goal focused not mood focused. Attendance: Present Behavior: Quiet and Attentive Mood: Calm Notes: Pt states she will be attending groups today and preparing for discharge home on Saturday. KYARA OSCAR Harjinder 05/25/2016 Inpatient Daily Group Note Group: CBT [...] Observed: Moderate Mood: Calm Notes: See above. KYARAOTSHA CLEANING 05/25/2016 Inpatient Daily Group Note Group: Stress [...] spontaneous; conversational rate and volume Language: fluent Malaysian; non-profane Mood: I'm making progress Affect: almost [...] Vit Lvls: Lab Results Component Value Date [id number] 550 05/23/2016 SFOLATE 12.0 05/23/2016 UA: Lab [...] study. ?? * Grover Tobin, MS - 05/24/2016 10:32 AM EST Inpatient [...] panic because of it being impossible. GROVER Dillon NOY, 05/24/2016 Inpatient Daily Group Note Group: TAC [...] _x___Walk ____Workshop ____Pet visit Additional pertinent information: Brenna Song RN - 05/24/2016 6:03 AM EST Ruslan complained of insomnia after receiving the klonopin and trying to listen to a relaxation cd. She requested the trazodone and received trazodone 50 mg at 2341. She appeared to be asleep by 0030 and appeared to sleep 6 hours as of 0600. Hilaria Pyle MD - 05/23/2016 2:23 PM EST Psychiatry [...] spontaneous; conversational rate and volume Language: fluent Malaysian; non-profane Mood: wired Affect: restricted, anxious Thought [...] Vit Lvls: Lab Results Component Value Date [id number] 550 05/23/2016 SFOLATE 12.0 05/23/2016 UA: Lab [...] patient's condition and/or diagnostic study. Signed By: Hialria Dixon MD 05/23/2016 Associated attestation - Maria [...] Mood: Calm Notes: See above. KYARA OSCAR, [facility] 05/23/2016 Patient attended the following activities: ____Walk __x__Workshop ____Pet visit Additional pertinent information: * Yareli Yee, RN - 05/23/2016 2:25 AM EST PRN medication given: Pt came to nursing station at 0130, stating that she had been laying there awake for 4 hours. She requested medication for sleep. Trazodone 50 mg was given, per AUG. Pt was advised to alert staff during room checks when she is awake on rounds. * Anna Ahumada SECURITY GUARD - 05/22/2016 1:16 PM EST OFFICE OF CARE MANAGEMENT PSYCHOSOCIAL ASSESSMENT Present at Interview: Patient Date: May 22, 2016 1. 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 Please refer to admit note for details. 2. Family Constellation, Pertinent History: Patient is one of 3 children born and raised in family of origin. Father is at age 56. Mother age 64 lives in [place]. Siblings are Miladys age 44 and Marshall age 40 also in [place]. Patient has daily contact with her Mother and frequent contact with her siblings. Patient was born and raised in [place] and described childhood as fun. Extended family available and involved. Patient left home at age 20 to move in with life partner Clayton age 45. Patient and partner have been together for 29 years, one son age 24 in [place] ( with one daughter). Patient is very [...] support: Mother, Otf, friends, not active in synagogue or community. 6. 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 Female presents to [facility] Emergency Department with increased anxiety since 05/16/16 [...] Social History: Patient is and lives in [place], [place] with her . Her mother and adult son live in the [place], [place] area. 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 Patient was well maintained [...] Appropriate) 05/25/16 1136 Interdisciplinary Rounds/Family Conf Participants case making machine operator;patient;nursing;physician OUTCOME EVALUATION NOTE: OUTCOME SUMMARY: Patients family [...] Appropriate) 05/25/16 1136 Interdisciplinary Rounds/Family Conf Participants case making machine operator;patient;nursing;physician OUTCOME EVALUATION NOTE: OUTCOME SUMMARY: Patient has [...] of Care - Bisi Mann RN - 05/23/2016 7:18 PM EST Problem: Patient Care Overview Goal: Interdisciplinary Rounds/Family Conf Outcome: Ongoing (Interventions Implemented as Appropriate) 05/23/16 192 Interdisciplinary Rounds/Family Conf Participants nursing;patient;physician OUTCOME EVALUATION [...] Outcome: Ongoing (Interventions Implemented as Appropriate) 05/21/16 1882 Coping/Psychosocial Plan Of Care Reviewed With patient [...] OUTCOME EVALUATION: * Initial Assessments - Domenica Mary RN - 05/22/2016 8:37 AM EST Initial Patient Assessment Domenica Mary RN reviewed record and discussed patient with Care Team on 05/22/2016. Introduced/reviewed role; services accepted. Ruslan Sprague is a 45 y.o. year old female (1970) presenting to [address] [place] [address] for treatmentof Unspecified mood (affective) disorder [F39] [...] [place] -* RUSLAN SPRAGUE 1970 Female Self [id number] 05/15/16 [address] Prescription Coverage: Confirmed Preferred Pharmacy: [id number] - [place], [place] - [address] [address] Diplomat Spec Pharm [facility] - [facility] [address] [place] [address] Other: None HOME ENVIRONMENT / SOCIAL & FAMILY SUPPORTS/COMMUNITY RESOURCES:(living situation, family constellation, Caregivers, current use & knowledge of community resources, etc.) Extended Emergency Contact Information Primary Emergency Contact: Clayton Ryan [facility] Relation: Giuliano Patient is and lives in [place], [place] with her . Her mother and adult son live in the [place], [place] area. 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 PRIMARY CARE PHYSICIAN: Tristan Soliman DO [address] / [facility] [phone] MENTAL HEALTH PRESCRIBER: None currently Current Decision-Making Capacity: (Level of Alertness/Orientation, dementia/ cognitive deficit, if patient is a minor - assess parent/guardian, etc.) Able to consent to or refuse care. CURRENT PATIENT & FAMILY EDUCATION, COPING NEEDS: (Address patient/family satisfaction with care to date, understanding of current status and plan of care, need for family meeting, need for deaf interpreter, etc.) Groups for skills training to [...] Any special transportation needed at D/C to [address] [address]? None Rehab/SNF: n/a New community resources referrals needed? Referral for ongoing outpatient psychotherapy Other: none (DME, OPAT, TPN/Tube Feeding, Wound Vac, Social Needs) PLAN: PCM will continue to monitor progress, follow for continuity of care and assist with transition of care planning while hospitalized. [facility] [phone] * Plan of Care - Domenica Mary [...] understanding of illness 2. Work with Patient Bladder Tier to create and implement aftercare plan 3. [...] Maria Luz Crisostomo MD 05/22/2016 NURSING Harry Singh, JAE 05/22/2016 PT CORPORATE QUALITY MANAGER Rozina Mary RN- 05/22/2016 THERAPIST Kyara Oscar [facility] 05/22/2016 LABORER STEEL HANDLING Anna Ahumada, [facility] 05/22/2016 * Plan of Care - Bisi Mann, RN - 05/21/2016 5:35 PM EST Problem: Patient Care Overview Goal: Interdisciplinary Rounds/Family Conf Outcome: Ongoing (Interventions Implemented as Appropriate) 05/21/16 1737 Interdisciplinary Rounds/Family Conf Participants nursing;physician;patient OUTCOME EVALUATION [...] AM EST TH Visit (TeleHealth) [place] [address] Blade Martinez MD [facility] [address] 05/10/2025 4:30 PM EST Office Visit Dermatology at [place] [address] [place] [address] Andreas Richardson MD [address], [place] [address] Scheduled Referrals Name Type Priority Associated Diagnoses [...] Gram Positive organisms , probable contaminant(A ) [facility] First stream urine specimen (specimen) 05/24/2016 5:20 PM EST 05/24/2016 7:04 PM EST Narrative Resulting Agency Comment Spec In Lab Maria Luz Crisostomo MD MICROBIOLOGY - GENER AL ORDERABLES Performing Organization Address City/[facility]/ZIP Co de Phone Number [facility] [place] [address] * Urine Hold (05/24/2016 5:20 PM EST) Hold, Urine Sample in lab. [facility] Urine specimen (specimen) Urine / Unknown 05/24/2016 5:20 PM EST 05/24/2016 6:07 PM EST Maria Luz Crisostomo MD URINE ORDERABLES Performing Organization Address [facility] Co de Phone Number [facility] [place] [address] * (ABNORMAL) Urinalysis with reflex Culture (05/24/2016 5:20 PM EST) Glucose, Urine Dipstick Negative Negative mg/dL [facility] Protein, Urine Dipstick Negative Negative mg/dL [facility] Bilirubin, Urine Dipstick Negative Negative mg/dL [facility] Comment: Clinical correlation required for positive Urine Bilirubin results as false positive may occur with some drugs and drug related products. If a false positive is suspected a serum total bilirubin should be considered if clinically indicated. Urobilinogen, Urine Dipstick Normal Normal mg/dL [facility] pH, Urn (dipstick) 6.0 5.0 - 8.0 [facility] Blood, Urine Dipstick Small(A) Negative mg/dL [facility] Ketone, Urine Dipstick Negative Negative mg/dL [facility] Nitrite, Urine Dipstick Negative Negative [facility] Leukocytes, Urine Dipstick Large(A) Negative [facility] Appearance, Urine Dipstick Clear Clear [facility] Specific [place] Urine Automated 1.006 1.002 - 1.030 [facility] Color, Urine Dipstick Straw Yellow [facility] RBC, Urine 6(H) 0 - 4 /HPF [facility] WBC, Urine 8(H) 0 - 5 /HPF [facility] Bacteria, Urine Rare(A) None /HPF [facility] Squamous Epithelial Cells, Urine 1 <=4 /HPF [facility] Reflex to Culture Yes [facility] First stream urine specimen (specimen) 05/24/2016 5:20 PM EST 05/24/2016 6:06 PM EST Narrative Resulting Agency Comment Spec In Lab Maria Luz Crisostomo MD URINE ORDERABLES Performing Organization Address [facility] de Phone Number [facility] [address] * U24 Hrs and Volume (05/24/2016 1:18 PM EST) Hours Collected 24 hour(s) [facility] Total Volume 1,500 mL [facility] Urine specimen (specimen) 05/24/2016 1:18 PM EST 05/24/2016 2:05 PM EST Narrative Resulting Agency Comment Spec In Lab Maria Luz Crisostomo MD CHEMISTRY ORDERABLES Performing Organization Address [facility] de Phone Number [facility] [place] [address] * Catecholamines Frac Free urine, 24 hr [...] developed and its performance characteristics ?determined by [facility] in a manner consistent with CLIA ?requirements. This test has not been cleared or approved by ?the U.S. Food and Drug Administration. ?Test Performed by: ?[facility] [place] [employer] ?[address] [place] [address] ?Sped Teacher: Jamir Chino II, M.D., Ph.D. [facility] Urine specimen (specimen) 05/24/2016 1:18 PM EST 05/24/2016 3:10 PM EST Narrative Resulting Agency Comment Spec In Lab Maria Luz Crisostomo MD LAB SEND OUT ORDERAB LES [facility] [place] [address] * Metanephrines, Fractionated, urine, 24 hour (05/24/2016 [...] developed and its performance characteristics ?determined by [facility] in a manner consistent with CLIA ?requirements. This test has not been cleared or approved by ?the U.S. Food and Drug Administration. ?Test Performed by: ?[facility] [place] [facility] ?[address] [place] [address] ?Sped Teacher: Jamir Chino II, M.D., Ph.D. [facility] Urine specimen (specimen) 05/24/2016 1:18 PM EST 05/24/2016 3:10 PM EST Narrative Resulting Agency Comment Spec In Lab Maria Luz Crisostomo MD LAB SEND OUT ORDERAB LES [facility] [place] [address] * Phosphorus (05/23/2016 4:57 PM EST) Phosphorus 3.8 2.5 - 4.5 mg/dL [facility] Blood specimen (specimen) 05/23/2016 4:57 PM EST 05/23/2016 5:17 PM EST Narrative Resulting Agency Comment Spec In Lab Maria Luz Crisostomo MD CHEMISTRY ORDERABLES Performing Organization Address [facility] Co de Phone Number [facility] [place] [address] * Calcium (05/23/2016 4:57 PM EST) Calcium 9.4 8.5 - 10.5 mg/dL [facility] Blood specimen (specimen) 05/23/2016 4:57 PM EST 05/23/2016 5:17 PM EST Narrative Resulting Agency Comment Spec In Lab Maria Luz Crisostomo MD CHEMISTRY ORDERABLES Performing Organization Address [facility] Co de Phone Number [facility] [place] [address] * Magnesium (05/23/2016 4:57 PM EST) Magnesium 0.85 0.69 - 1.07 mmol/L [facility] Blood specimen (specimen) 05/23/2016 4:57 PM EST 05/23/2016 5:17 PM EST Narrative Resulting Agency Comment Spec In Lab Maria Luz Crsiostomo MD CHEMISTRY ORDERABLES Performing Organization Address [facility] Co de Phone Number [facility] [place] [address] * Luteinizing Hormone (05/23/2016 4:57 PM EST) Luteinizing Hormone 8.0 mlU/ML [facility] Comment: Reference ranges: ?? Females ?? Follicular: ? 2.4-12.6 mIU/mL ?? Ovulation: ?14.0-95.6 mIU/mL ?? Luteal: ? 1.0-11.4 mIU/mL ?? Postmenopausal: ? 7.7-58.5 mIU/mL Blood specimen (specimen) 05/23/2016 4:57 PM EST 05/23/2016 5:17 PM EST Narrative Resulting Agency Comment Spec In Lab Maria Luz Crisostomo MD CHEMISTRY ORDERABLES Performing Organization Address [facility] de Phone Number [facility] [place] [address] * Follicle Stimulating Hormone (05/23/2016 4:57 PM EST) Follicle Stimulating Hormone 5.1 mlU/ML [facility] Comment: Reference Ranges: Females: Follicular: ? 3.5-12.5 mIU/mL Ovulation: ?4.7-21.5 mIU/mL Luteal: ? 1.7-7.7 mIU/mL Postmenopausal: 25.8-134.8 mIU/mL Blood specimen (specimen) 05/23/2016 4:57 PM EST 05/23/2016 5:17 PM EST Narrative Resulting Agency Comment Spec In Lab Maria Luz Crisostomo MD CHEMISTRY ORDERABLES Performing Organization Address [facility] de Phone Number [facility] [address] * (ABNORMAL) Ferritin (05/23/2016 12:49 PM EST) Ferritin 430(H) 15 - 150 ng/mL [facility] Comment: Pediatric reference ranges not verified at [facility], interpret with caution. Reference ranges for females greater than 50 years of age approach values for men, i.e., 30-400 ng/mL. Blood specimen (specimen) 05/23/2016 12:49 PM EST 05/23/2016 1:04 PM EST Narrative Resulting Agency Comment Spec In Lab Maria Luz Crisostomo MD CHEMISTRY ORDERABLES Performing Organization Address City/[facility]/ZIP Co de Phone Number [facility] [address] * Iron and TIBC (05/23/2016 12:49 PM EST) Iron 75 30 - 150 mcg/dL [facility] TIBC 290 250 - 450 mcg/dL [facility] Iron Saturation 26 20 - 50 % [facility] Blood specimen (specimen) 05/23/2016 12:49 PM EST 05/23/2016 1:04 PM EST Narrative Resulting Agency Comment Spec In Lab Maria Luz Crisostomo MD CHEMISTRY ORDERABLES Performing Organization Address [facility] Co de Phone Number [facility] [place] [address] * Vitamin B12 (05/23/2016 12:49 PM EST) Vitamin B12 550 207 - 974 pg/mL [facility] Blood specimen (specimen) 05/23/2016 12:49 PM EST 05/23/2016 1:04 PM EST Narrative Resulting Agency Comment Spec In Lab Maria Luz Crisostomo MD CHEMISTRY ORDERABLES Performing Organization Address City/[facility]/ZIP Co de Phone Number [facility] [address] * Folate, serum (05/23/2016 12:49 PM EST) Folate 12.0 4.8 - 24.2 ng/mL [facility] Blood specimen (specimen) 05/23/2016 12:49 PM EST 05/23/2016 1:04 PM EST Narrative Resulting Agency Comment Spec In Lab Maria Luz Crisostomo MD CHEMISTRY ORDERABLES Performing Organization Address City/[facility]/ZIP Co de Phone Number [facility] [address] * CRP, acute inflammation (05/23/2016 12:49 PM EST) C-Reactive Protein 2.1 <=4.9 mg/L [facility] Blood specimen (specimen) 05/23/2016 12:49 PM EST 05/23/2016 1:04 PM EST Narrative Resulting Agency Comment Spec In Lab Maria Luz Crisostomo MD CHEMISTRY ORDERABLES [facility] [place] [address] * Sedimentation rate (05/23/2016 12:49 PM EST) Sedimentation Rate Automated 10 0 - 20 mm/hr [facility] Blood specimen (specimen) 05/23/2016 12:49 PM EST 05/23/2016 1:04 PM EST Narrative Resulting Agency Comment Spec In Lab Maria Luz Crisostomo MD HEMATOLOGY ORDERABLE S Performing Organization Address City/[facility]/ZIP Co de Phone Number [facility] [address] * T3, free (05/23/2016 12:49 PM EST) Free T3 2.6 2.0 - 4.4 pg/mL [facility] Blood specimen (specimen) 05/23/2016 12:49 PM EST 05/23/2016 1:04 PM EST Narrative Resulting Agency Comment Spec In Lab Maria Luz Crisostomo MD CHEMISTRY ORDERABLES Performing Organization Address City/[facility]/ZIP Co de Phone Number [facility] [address] * T4, free (05/23/2016 12:49 PM EST) Free T4 1.29 0.93 - 1.70 ng/dL [facility] Blood specimen (specimen) 05/23/2016 12:49 PM EST 05/23/2016 1:04 PM EST Narrative Resulting Agency Comment Spec In Lab Maria Luz Crisostomo MD CHEMISTRY ORDERABLES Performing Organization Address [facility] Co de Phone Number [facility] [place] [address] * TSH (05/23/2016 12:49 PM EST) Thyroid Stimulating Hormone 2.23 0.27 - 4.20 mcIU/mL [facility] Blood specimen (specimen) 05/23/2016 12:49 PM EST 05/23/2016 1:04 PM EST Narrative Resulting Agency Comment Spec In Lab Maria Luz Crisostomo MD CHEMISTRY ORDERABLES Performing Organization Address [facility] de Phone Number [facility] [place] [address] * DHEA (05/23/2016 12:49 PM EST) DHEA (OCTOBER) 5.6 <8.0 ng/mL [facility] Comment: ADDITIONAL INFORMATION This test was developed and its performance characteristics determined by [facility] in a manner consistent with CLIA requirements. This test has not been cleared or approved by the U.S. Food and Drug Administration. Test Performed by: [facility] - [address] [address] Sped Teacher: Jamir Chino II, M.D., Ph.D. Blood specimen (specimen) 05/23/2016 12:49 PM EST 05/23/2016 1:45 PM EST Narrative Resulting Agency Comment Spec In Lab Maria Luz Crisostomo MD LAB SEND OUT ORDERAB LES Performing Organization Address [facility] Co de Phone Number [facility] [place] [address] * DHEA-sulfate (05/23/2016 12:49 PM EST) Dehydroepiandrosterone Sulfate 165.9 60.9 - 337.0 mcg/dL [facility] Blood specimen (specimen) 05/23/2016 12:49 PM EST 05/23/2016 1:04 PM EST Narrative Resulting Agency Comment Spec In Lab Maria Luz Crisostomo MD CHEMISTRY ORDERABLES Performing Organization Address City/[facility]/ZIP Co de Phone Number [facility] [place] [address] * (ABNORMAL) Vitamin D, 25-Hydroxy (05/23/2016 12:49 PM EST) Vitamin D Total 25 OH 22(L) 30 - 100 ng/mL [facility] Comment: Deficient <10 ng/mL Insufficient 10 to 29 ng/mL Sufficient 30 to 100 ng/mL Potential Intoxication >100 ng/mL According to the US National Osteoporosis Foundation, Vitamin D concentrations >30 ng/mL are sufficient to protect bone health. ??The National Kidney Foundation has similarly stated that patients with Vitamin D concentrations <30ng/mL should be considered to be insufficient or deficient. http://Cloud.com/[facility] CITYnatlkidneyfoundation http://Cloud.com/DHVitD The [employer] i[employer] Vitamin D Immunoassay detects both 25-OH Vitamin D2 and 25-OH Vitamin D3, but only a total Vitamin D concentration is reported. Blood specimen (specimen) 05/23/2016 12:49 PM EST 05/23/2016 1:04 PM EST Narrative Resulting Agency Comment Spec In Lab Maria Luz Crisostomo MD CHEMISTRY ORDERABLES Performing Organization Address City/[facility]/ZIP Co de Phone Number [facility] [place] [address] documented in this encounter Visit Diagnoses Diagnosis Anxiety Anxiety state, unspecified Type 2 diabetes [...] mg, Oral, EVERY EVENING, First dose on Sat05/21/16 at 2100, Until Discontinued, Interchanged for pravastatin (Pravachol) tablet 40 mg per Pharmacy and Therapeutics (P&T) Committee therapeutic interchange policy., Routine Given 05/26/2016 6:34 PM EST 10 mg Given 05/25/2016 4:41 PM EST 10 mg Given 05/24/2016 5:03 PM EST 10 mg cholecalciferol (Vitamin D3) tablet 2,000 Units 2,000 Units, Oral, DAILY, First dose on Sat05/24/16 at 1100, Until Discontinued, Routine Given 05/27/2016 [...] mg, Oral, EVERY EVENING, First dose on Sat05/21/16 at 2100, Until Discontinued, Interchanged for pravastatin (Pravachol) tablet 40 mg per Pharmacy and Therapeutics (P&T) Committee therapeutic interchange policy., Routine 1641 (Given - Provider: Bisi Mann RN) 1834 (Given - Provider: Bisi Mann RN) cholecalciferol (Vitamin D3) tablet 2,000 Units 2,000 Units, Oral, DAILY, First dose on Sat05/24/16 at 1100, Until Discontinued, Routine 0808 (Given - Provider: César Grant RN) 0822 (Given - Provider: Harry Singh RN) 0824 (Given - Provider: Harry Singh, JAE) FLUoxetine (PROzac) capsule 10 mg 10 mg, Oral, DAILY, First dose (after last modification) on Sat05/23/16 at 0900, Until Discontinued, Routine 0809 (Given - Provider: César Grant RN) 0822 (Given - Provider: Harry Singh RN) 0825 (Given - Provider: Harry Singh, RN) nicotine (NICODERM CQ) 14 mg/24 hr patch 14 mg(Linked Group 1) 14 mg, Transdermal, Administer over 24 Hours, DAILY, First dose on Sat05/23/16 at 1230, Until Discontinued, Routine 0808 (Given - Provider: César Grant RN) 0824 (Given - Provider: Harry Singh, JAE) 0825 (Given - Provider: Harry Singh, RN) nicotine (NICODERM CQ) 14 mg/24 hr [...] Discontinued, Verify nicotine 14 mg/24 hr patch. 09 (Patch (dose and location) verified - Provider: César Grant RN)2099 (Patch (dose and location) verified - Provider: Bisi Mann RN) 899 (Patch (dose and location) verified - Provider: Harry Singh RN)2099 (Patch (dose and location) verified - Provider: Bisi Mann RN) 899 (Patch (dose and location) verified - Provider: [...] Harry Singh RN)2135 (Given - Provider: Bisi Mann RN) 0825 (Given - Provider: Harry Singh RN) traZODone (DESYREL) tablet 100 mg (COMPLETED) 100 mg, Oral, ONCE, 1 dose, On 05/26/16 at 0015, STAT 0008 (Given - Provider: Yareli Yee RN) traZODone (DESYREL) tablet 100 mg (COMPLETED) 100 mg, Oral, ONCE, 1 dose, On 05/27/16 at 0130, STAT 0119 (Given - Provider: Brenna Correia RN) PRN Medication Order 05/25/2016 05/26/2016 05/27/2016 clonazePAM (KlonoPIN) tablet 0.25 mg 0.25 mg, Oral, 2 TIMES DAILY PRN, Starting on Sat05/23/16 at 1124, Until 05/27/16 at 1542, Anxiety, Routine 0338 (Given - Provider: Brenna Correia RN)1640 (Given - Provider: Bisi Mann, JAE) 0925 (Given - Provider: Harry Singh, JAE) 0733 (Given - Provider: Harry Singh, JAE)1340 (Given - Provider: Haryr Singh RN) ibuprofen (ADVIL;MOTRIN) tablet 600 mg 600 [...] 1747, Until 05/27/16 at 1542, Sleep, Routine 2145 (Given - Provider: Bisi Mann RN) 213 (Given - Provider: Bisi Mann RN) Linked Groups Order Group 1: nicotine (NICODERM [...] patch documented in this encounter Care Teams Coal Mill Operator Relationship Specialty Start Date End Date Tristan Soliman DO [address] [place] [address] PCP - General 05/09/10 11/26/16 documented as of this encounter
--- OUTSIDE RECORDS SUMMARY | 2024-06-19 14:51 | XMS_ITS | Encounter Summary ---
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 This is not the cause of her anxiety symptoms. Pt is concerned about her immune system and she has some allergy that is triggering these symptoms Leonor Hendricks MD [address] [place] [address] [facility] [address] [place] [address] Referral ID Status Reason Start Date Expiration Date V isits Requested Visits Authorized [id number] Closed [facility] 11/27/2016 11/27/2017 1 1 Encounter Details Date Type Department Care Team (Late st Contact Info) Description 01/08/2017 2:00 PM EDT [place] [address] Crystal Sood MD [facility] [address] [facility] [address] Recurrent pneumonia; Autoimmune disease Social [...] Reactions ??? Stelara [Ustekinumab] Other (See Comments) Yoklpbayr-lmylygs-vkhnumrft Family History Problem Relation Age of Onset [...] leukocytosis and repeat urinalysis. Sent message via [employer] as patient had already contacted me through that outlet. Crystal Sood MD documented in this encounter Plan of Treatment Upcoming Encounters Date Type Department Care Team (Late st Contact Info) Description 06/23/2024 11:30 AM EST TH Visit (TeleHealth) [place] [address] Blade Martinez MD [facility] [place] [address] 05/10/2025 4:30 PM EST Office Visit Dermatology at [place] [address] [facility] [place] [phone] Andreas Richardson MD [address] [facility], [place] [address] documented as of this encounter Procedures Procedure Name Priority Date/Time Associated Diagnosis Comments _URINALYSIS WITH MICRSOCOPIC Routine 01/08/2017 2:56 PM EDT Recurrent pneumonia PATHOLOGY SLIDE REVIEW Routine 2:53 PM EDT Recurrent pneumonia IMMUNOGLOBULINS, QUANTITATIVE Routine 01/08/2017 2:53 PM EDT Recurrent pneumonia SCAN, PERIPHERAL BLOOD Routine 2:53 PM EDT HEMOGRAM Routine 01/08/2017 2:53 [...] EDT Recurrent pneumonia PATHOLOGY SLIDE REVIEW Routine 2:45 PM EDT documented in this encounter Results * (ABNORMAL) _Urinalysis with microscopic (01/08/2017 2:56 PM EDT) Glucose, Urine Dipstick Negative Negative mg/dL [facility] Protein, Urine Dipstick 30(A) Negative mg/dL [facility] Bilirubin, Urine Dipstick Negative Negative mg/dL [facility] Comment: Clinical correlation required for positive Urine Bilirubin results as false positive may occur with some drugs and drug related products. If a false positive is suspected a serum total bilirubin should be considered if clinically indicated. Urobilinogen, Urine Dipstick Normal Normal mg/dL [facility] pH, Urn (dipstick) 5.0 5.0 - 8.0 [facility] Blood, Urine Dipstick Negative Negative mg/dL [facility] Ketone, Urine Dipstick Negative Negative mg/dL [facility] Nitrite, Urine Dipstick Negative Negative [facility] Leukocytes, Urine Dipstick Large(A) Negative [facility] Appearance, Urine Dipstick Cloudy(A) Clear [facility] Specific [place] Urine Automated 1.027 1.002 - 1.030 [facility] Color, Urine Dipstick Yellow Yellow [facility] RBC, Urine 9(H) 0 - 4 /HPF [facility] WBC, Urine 11(H) 0 - 5 /HPF [facility] Bacteria, Urine Rare(A) None /HPF [facility] Squamous Epithelial Cells Raw Data, Urine 15(H) <=4 /HPF [facility] Transitional Epithelial Cells, Urine <1 <=1 /HPF [facility] Renal Epithelial Cells, Urine <1(H) <=0 /HPF [facility] Urine specimen (specimen) 01/08/2017 2:56 PM EDT 01/08/2017 3:00 PM EDT Narrative Resulting Agency Comment Spec In Lab Crystal Sood MD URINE ORDERABLES [facility] [place] [address] * Scan, Peripheral Blood (01/08/2017 2:53 PM EDT) Plat estimate Normal [facility] RBC Morphology Abnormal [facility] Ovalocytes 1-5 /HPF [facility] Blood specimen (specimen) 01/08/2017 2:53 PM EDT 01/08/2017 2:56 PM EDT Narrative Resulting Agency Comment Spec In Lab Crystal Sood MD HEMATOLOGY ORDERABLE S [facility] [place] [address] * (ABNORMAL) Differential, Automated (01/08/2017 2:53 PM EDT) Neutrophil % 64.4 % [facility] Neutrophil Absolute 6.77(H) 1.70 - 6.10 x10(3)/ L [facility] Lymph % 26.9 % [facility] Lymphocytes Abs 2.8 0.9 - 3.2 x10(3)/[facility] Monocyte % 6.5 % [facility] Monocyte Abs 0.7 0.3 - 0.9 x10(3)/[facility] Eos % 1.0 % [facility] Eosinophils Abs 0.1 0.0 - 0.4 x10(3)/[facility] Basophil % 0.6 % [facility] Baso Absolute 0.1 0.0 - 0.1 x10(3)/[facility] Immature Gran % 0.60 % [facility] Comment: Immature granulocytes(IG's)percentage and absolute count will include metamyelocytes, myelocytes, and promyelocytes. Blood smears from CBCs yielding IG's will be scanned manually for concordance. If this scan disagrees with the automated IG or if promyelocytes are noted, a manual differential will be performed. Immature Gran Absolute 0.06(H) 0.00 - 0.04 x10(3)/ L [facility] Blood specimen (specimen) 01/08/2017 2:53 PM EDT 01/08/2017 2:56 PM EDT Narrative Resulting Agency Comment Spec In Lab Crystal Sood MD HEMATOLOGY ORDERABLE S Performing Organization Address City/[facility]/ZIP Co de Phone Number [facility] [place] [address] * (ABNORMAL) Hemogram (01/08/2017 2:53 PM EDT) White Blood Cell 10.5(H) 4.0 - 9.5 x10(3)/[facility] Red Blood Cell 4.47 4.00 - 5.21 x10(6)/[facility] Hemoglobin 13.4 11.7 - 15.5 gm/dL [facility] Hematocrit 39.9 35.7 - 45.8 % [facility] Mean Cell Volume 89.3 82.6 - 94.[address] [facility] Mean Cell Hemoglobin 30.0 27.1 - 32.[address] [facility] Mean Cell Hemoglobin Concentration 33.6 31.7 - 35.0 gm/dL [facility] Platelet 236 145 - 357 x10(3)/[facility] RDW Standard Deviation 43.2 37.0 - 46.0 [facility] RDW coefficient of variation 13.2 11.5 - 14.1 % [facility] Mean Platelet Volume 11.1 7.6 - 12.[address] [facility] NRBC% auto 0.0 % [facility] NRBC Absolute 0.000 0.000 - 0.000 x10(3)/[facility] Blood specimen (specimen) 01/08/2017 2:53 PM EDT 01/08/2017 2:56 PM EDT Narrative Resulting Agency Comment Spec In Lab Crystal Sood MD HEMATOLOGY ORDERABLE S [facility] [place] [address] * Complement, Total (01/08/2017 2:53 PM EDT) Complement, Total 59 30 - 75 unit/mL [facility] Comment: Test Performed by: [address] [address] Blood specimen (specimen) 01/08/2017 2:53 PM EDT 01/09/2017 8:46 AM EDT Narrative Resulting Agency Comment Spec In Lab Crystal Sood MD CHEMISTRY ORDERABLES Performing Organization Address [facility] de Phone Number [facility] [place] [address] * Diphtheria Toxoid IgG Antibody (01/08/2017 2:53 PM EDT) Diphtheria Ab (OCTOBER) Positive [facility] Comment: REFERENCE VALUE Vaccinated: Positive (>= 0.01 IU/mL) Unvaccinated: Negative (< 0.01 IU/mL) Test Performed by: [facility] - [address] [address] Diphtheria IgG Value (OCTOBER) 0.49 IU/mL [facility] Comment: Test Performed by: [facility] [place] [address] Blood specimen (specimen) 01/08/2017 2:53 PM EDT 01/09/2017 8:39 AM EDT Narrative Resulting Agency Comment Spec In Lab Crystal Sood MD LAB SEND OUT ORDERAB LES Performing Organization Address [facility] de Phone Number [facility] [place] [address] * Tetanus Toxoid Antibody, IgG (01/08/2017 2:53 PM EDT) Tetanus Ab,IgG (OCTOBER) Positive [facility] Comment: REFERENCE VALUE Vaccinated: Positive (>= 0.01 IU/mL) Unvaccinated: Negative (< 0.01 IU/mL) Test Performed by: [facility] - [address] [address] Tetanus IgG Value (OCTOBER) 1.86 IU/mL [facility] Comment: ADDITIONAL INFORMATION This test was developed and its performance characteristics determined by [facility] in a manner consistent with CLIA requirements. This test has not been cleared or approved by the U.S. Food and Drug Administration. Test Performed by: [facility] - [address] [address] Blood specimen (specimen) 01/08/2017 2:53 PM EDT 01/09/2017 8:39 AM EDT Narrative Resulting Agency Comment Spec In Lab Crystal Sood MD LAB SEND OUT ORDERAB LES [facility] [place] [address] * S pneumoniae Antibody IgG, 23 serotypes (01/08/2017 2:53 PM EDT) Pathologist [facility] S Pneumo IgG 23 (OCTOBER) Test ?Result ? Flag ??Unit ?RefValue ------- [...] developed and its performance characteristics ?determined by [facility] in a manner consistent with CLIA ?requirements. This test has not been cleared or approved by ?the U.S. Food and Drug Administration. ?Test Performed by: ?[facility] ?[address] LABORATORY Blood specimen (specimen) 01/08/2017 2:53 PM EDT 01/09/2017 8:39 AM EDT Narrative Resulting Agency Comment Spec In Lab Crystal Sood MD LAB SEND OUT ORDERAB LES Performing Organization Address [facility]/ZIP Co de Phone Number [facility] [place] [address] * Peripheral Smear Review (01/08/2017 2:53 PM EDT) Peripheral Smear Review See Comment [facility] Comment: When completed by the Pathologist, report [id number] will display under Hematopathology Reports. Blood specimen (specimen) 01/08/2017 2:53 PM EDT 01/08/2017 2:56 PM EDT Narrative Resulting Agency Comment Spec In Lab Crystal Sood MD HEMATOLOGY ORDERABLE S Performing Organization Address [facility] Co de Phone Number [facility] [place] [address] * (ABNORMAL) Comprehensive metabolic panel (non-fasting) (01/08/2017 2:53 PM EDT) Glucose 146 65 - 199 mg/dL [facility] Comment:Diabetes: >=200 mg/d L plus symptoms Blood Urea Nitrogen 15 8 - 18 mg/dL [facility] Creatinine 0.67(L) 0.70 - 1.20 mg/dL [facility] Comment: Please note that the pediatric reference intervals supplied above were not validated at [facility]. Results from pediatric patients should be interpreted in conjunction to the patient's age, height and muscle mass. Sodium 135 135 - 145 mmol/L [facility] Potassium 3.8 3.5 - 5.0 mmol/L [facility] Comment: Please note: ??Patients with WBC >100,000 may have falsely elevated Potassium levels. ??For accurate Potassium quantification in these patients send serum separator tube (gold top) for subsequent determinations. ??Contact the Clinical Chemistry Laboratory if there are any questions. Chloride 98 98 - 107 mmol/L [facility] Carbon Dioxide 22 22 - 31 mmol/L [facility] Anion Gap 15 5 - 15 mmol/L [facility] Calcium 8.7 8.5 - 10.5 mg/dL [facility] Protein, Total 7.5 6.1 - 8.0 gm/dL [facility] Albumin 4.2 3.2 - 5.2 gm/dL [facility] Aspartate Aminotransferase 12 0 - 30 unit/L [facility] Alanine Aminotransferase 11 0 - 30 unit/L [facility] Alkaline Phosphatase 61 40 - 104 unit/L [facility] Bilirubin, Total <0.2(L) 0.2 - 1.3 mg/dL [facility] Est Glomerular Filtration Rate >60 >=60 [facility] Comment: This estimated GFR (eGFR) [...] the following links into your internet browser. [email or web address] [email or web address] Blood specimen (specimen) 01/08/2017 2:53 PM EDT 01/08/2017 2:56 PM EDT Narrative Resulting Agency Comment Spec In Lab Crystal Sood MD CHEMISTRY ORDERABLES [facility] [place] [address] * Immunoglobulins, Quantitative (01/08/2017 2:53 PM EDT) Immunoglobulin G 1,078 700 - 1,600 mg/dL [facility] IgA 247 70 - 400 mg/dL [facility] IgM 114 40 - 230 mg/dL [facility] Blood specimen (specimen) 01/08/2017 2:53 PM EDT 01/08/2017 2:56 PM EDT Narrative Resulting Agency Comment Spec In Lab Crystal Sood MD CHEMISTRY ORDERABLES [facility] [place] [address] * Smear Review Report (01/08/2017 2:45 PM EDT) Smear Review Report [id number] ?Location: 6M The signing pathologist has (i) [...] obstructive sleep apnea, Ming thyroiditis, and psoriasis. [facility] 01/08/2017 2:45 PM EDT Crystal Sood MD HEMATOLOGY ORDERABLE S [facility] [place] [address] documented in this encounter Visit Diagnoses Diagnosis Recurrent pneumonia Pneumonia, organism unspecified Autoimmune disease Autoimmune disease, not elsewhere classified Type 2 diabetes mellitus with hyperglycemia, with long-term current use of insulin Ming's thyroiditis Chronic lymphocytic thyroiditis Vitamin D deficiency Unspecified vitamin D deficiency Hypertriglyceridemia Pure hyperglyceridemia documented in this encounter Care Teams Shank Paperer Relationship Specialty Start Date End Date Leonor Hendricks MD [address] [place] [id number] PCP - General Family Medicine 11/27/16 documented as of this encounter
--- OUTSIDE RECORDS SUMMARY | 2024-06-19 14:51 | XMS_ITS | Encounter Summary ---
[place] [address] Care Team Providers Care Plastics Factory Worker Name Role Phone Jourdan, Tristan OLIVAREZ Primary Care Provider [phone] Encounter Details Date Type Department Care Team (Late st Contact Info) Description 10/15/2016 Telephone Dermatology at [place] [address] [facility] [place] [address] Andreas Richardson MD [address] [facility], [place] [address] Social History Tobacco Use Types Packs/Day Years [...] AM EDT Voice mail from Jesika starkey [facility] requesting prescription for maintenance dose ofCosentyx. Call pharmacy at [phone] of fax [phone] documented in this encounter Plan of Treatment Upcoming Encounters Date Type Department Care Team (Late st Contact Info) Description 06/23/2024 11:30 AM EST TH Visit (TeleHealth) [place] [address] Blade Martinez MD [facility] [place] [address] 05/10/2025 4:30 PM EST Office Visit Dermatology at [place] [address] [facility] [place] [phone] Andreas Richardson MD [address] [address] [place] [address] documented as of this encounter Visit Diagnoses Not on filedocumented in this encounter Care Teams Plastics Factory Worker Relationship Specialty Start Date End Date Tristan Soliman DO [address] [facility] [address] [place] [address] PCP - General 05/09/10 11/26/16 documented as of this encounter
--- OUTSIDE RECORDS SUMMARY | 2024-06-19 14:51 | XMS_ITS | Encounter Summary ---
Author Organization [facility] [place] [address] Care Team Providers Care Outside Installer Apprentice Name Role Phone Leonor Hendricks MD Primary Care Provider [phone] Encounter Details Date Type Department Care Team (Late st Contact Info) Description 11/29/2016 External Results [place] [address] Yareli Morales MD Misha's thyroiditis Social History [...] AM EST TH Visit (TeleHealth) [place] [address] Blade Martinez MD [facility] [place] [address] 05/10/2025 4:30 PM EST Office Visit Dermatology at [place] [address] [place] [address] Andreas Richardson MD [address], [place] [address] documented as of this encounter Procedures Procedure [...] hyperglyceridemia documented in this encounter Care Teams Outside Installer Apprentice Relationship Specialty Start Date End Date Leonor Hendricks MD [address] [place] [address] PCP - General Family Medicine 11/27/16 documented as of this encounter
--- OUTSIDE RECORDS SUMMARY | 2024-06-19 14:51 | XMS_ITS | Encounter Summary ---
Author Organization [facility] [address] Care Team Providers Care Forensic Specialist Name Role Phone Tristan Soliman DO Primary Care Provider [phone] Encounter Details Date Type Department Care Team (Late st Contact Info) Description 11/05/2016 Notes Only Sleep Center at [facility] [address] [place] [address] Ashleigh Jamil Social History Tobacco Use Types [...] realized it was intended for [facility]. I called the referring provider and left [...] AM EST TH Visit (TeleHealth) [place] [address] Blade Martinez MD [facility] [address] 05/10/2025 4:30 PM EST Office Visit Dermatology at [place] [address] [place] [address] Andreas Richardson MD [address], [address] [place] [address] documented as of this encounter Visit Diagnoses Not on filedocumented in this encounter Care Teams Forensic Specialist Relationship Specialty Start Date End Date Tristan Soliman DO [address] [facility] [place] [address] PCP - General 05/09/10 11/26/16 documented as of this encounter
--- OUTSIDE RECORDS SUMMARY | 2024-06-19 14:51 | XMS_ITS | Encounter Summary ---
[facility] [place] [address] Care Team Providers Care Outdoor Landscape Architect Name Role Phone JourdanTristan batres Primary Care Provider Reason for Referral * Consultation (Routine) - Closed Specialty Diagnoses / Procedures Referred By Conthai t Referred To Contact Rheumatology Diagnoses Polyarthralgia Yareli Morales MD [facility] [address] ENDOCRINOLOGY DEPT [address] Rheumatology [address] [place] [address] Referral ID Status Reason Start Date Expiration Date V isits Requested Visits Authorized [id number] Closed Consult, Test & Treat 08/06/2016 08/06/2017 1 1 * Consultation (Routine) - Closed Specialty Diagnoses / Procedures Referred By Rufus t Referred To Contact Gastroenterology Diagnoses Loose stools Yareli Morales MD [facility] [place] [address] [facility]astro [address] [place] [address] Referral ID Status Reason Start Date Expiration Date V isits Requested Visits Authorized [id number] Closed Consult, Test & Treat 08/06/2016 08/06/2017 1 1 Reason for Visit * Reason Comments Fatigue * Consultation (Routine) - Closed Specialty Diagnoses / Procedures Referred By Rufus t Referred To Contact Endocrinology Diagnoses Fatigue, unspecified type Tristan Soliman DO [address] [place] [address] [facility] Endocrinology [address] [place] [address] Referral ID Status Reason Start Date Expiration Date V isits Requested Visits Authorized [id number] Closed Consult, Test & Treat [facility] 07/12/2016 07/12/2017 1 1 Encounter Details Date Type Department Care Team (Late st Contact Info) Description 08/06/2016 3:00 PM EST Office Visit [place] [address] Yareli Morales MD Hirsutism; Chronic fatigue; Galactorrhea; Tremulousness; Vitamin D [...] 3:00 PM EST Endocrinology New Patient Consultation RFC: Referred to Endocrinology by Tristan Soliman for [...] starts flaring after 2 months of the [id number] dosing. Having frequent UTI's especially wyatt-menstrually. She [...] ??? Referral to Rheumatology YARELI MORALES MD Council Membercatalog specialist Section of Endocrinology [facility] documented in this encounter Plan of Treatment Upcoming Encounters Date Type Department Care Team (Late st Contact Info) Description 06/23/2024 11:30 AM EST TH Visit (TeleHealth) [place] [address] Blade Martinez MD [facility] [place] [address] 05/10/2025 4:30 PM EST Office Visit Dermatology at [place] [address] [place] [address] Andreas Richardson MD [address], [place] [address] Scheduled Referrals Name Type Priority Associated Diagnoses [...] encounter Results * (ABNORMAL) Lipid Panel (08/13/2016) Pathologist [facility] Cholesterol, Total 193(Exter nal Lab) mg/dL Triglyceride 180(EXTER NAL/ABN) mg/dL HDL Cholesterol 34(INTERNAL CONTROLS ANALYST AL/ABN) mg/dL Glucose 108(EXTER NAL/ABN) Blood specimen (specimen) 08/13/2016 Yareli oMrales MD CHEMISTRY ORDERABLES * (ABNORMAL) Gliadin (Deamidated) Antibodies (08/06/2016 5:00 PM EST) Pathologist [facility] Gliadin IgG Deamidated (MAY) <10.0 <20.0 (Negative ) [facility] Comment: Test Performed by: [place] [address] Sped Teacher: Jamir Chino II, M.D., Ph.D. Gliadin IgA Deamidated (MAY) 33.9(H) <20.0 (Negative ) [facility] Comment: Interpretation: Positive (>30.0) Test Performed by: [place] [address] Sped Teacher: Jamir Chino II, M.D., Ph.D. Blood specimen (specimen) 08/06/2016 5:00 PM EST 08/06/2016 5:53 PM EST Narrative Resulting Agency Comment Spec In Lab Yareli Morales MD LAB SEND OUT ORDERAB LES Performing Organization Address City/[facility] Co de Phone Number [facility] [place] [address] * Tissue transglutaminase, IgA (08/06/2016 5:00 PM EST) Pathologist [facility] TTG IgA Ab 1.2 0.1 - 10.0 u/ml [facility] Comment: Negative = <7 U/mL Equivocal = 7-10 U/mL Positive = >10 U/mL Blood specimen (specimen) 08/06/2016 5:00 PM EST 08/07/2016 8:09 AM EST Narrative Resulting Agency Comment Spec In Lab Yareli Morales MD IMMUNOLOGY ORDERABLE S Performing Organization Address [facility] Co de Phone Number [facility] [place] [address] * Hemoglobin A1c (08/06/2016 5:00 PM EST) Pathologist [facility] Hemoglobin A1c 5.4 4.3 - 5.6 % [facility] [...] Mellitus, Diabetes Care 2013; 36: Suppl. 1, E17-72 Estimated Average Glucose 108 mg/dL [facility] Comment: eAG [...] resources are available on the ADA website: http://[employer].Frankly Chat/DHMCadacalc Grayson TAYLOR, Suresh J, Brianna R, et al. ??Translating the A1C assay into estimated average glucose values. ??Diabetes Care 2008:31(8):0136-7115. Blood specimen (specimen) 08/06/2016 5:00 PM EST 08/06/2016 5:03 PM EST Narrative Resulting Agency Comment Spec In Lab Yareli Morales MD CHEMISTRY ORDERABLES Performing Organization Address [facility] de Phone Number [facility] [place] [address] * LDL Cholesterol, Direct (08/06/2016 5:00 PM EST) LDL Cholesterol, Direct 132 <=190 mg/dL [facility] Blood specimen (specimen) 08/06/2016 5:00 PM EST 08/06/2016 5:03 PM EST Narrative Resulting Agency Comment Spec In Lab Yareli Morales MD CHEMISTRY ORDERABLES Performing Organization Address [facility] Co de Phone Number [facility] [place] [address] * Vitamin D, 25-Hydroxy (08/06/2016 5:00 PM EST) Vitamin D Total 25 OH 34 30 - 100 ng/mL [facility] Comment: Deficient <10 ng/mL Insufficient 10 to 29 ng/mL Sufficient 30 to 100 ng/mL Potential Intoxication >100 ng/mL According to the US National Osteoporosis Foundation, Vitamin D concentrations >30 ng/mL are sufficient to protect bone health. ??The National Kidney Foundation has similarly stated that patients with Vitamin D concentrations <30ng/mL should be considered to be insufficient or deficient. http://[employer]/DHMCnatlkidneyfoundation http://[employer]/DHFix8VitD The ImmusanT iSYS Vitamin D Immunoassay detects both 25-OH Vitamin D2 and 25-OH Vitamin D3, but only a total Vitamin D concentration is reported. Blood specimen (specimen) 08/06/2016 5:00 PM EST 08/07/2016 8:24 AM EST Narrative Resulting Agency Comment Spec In Lab Yareli Morales MD CHEMISTRY ORDERABLES [facility] [place] [address] * Metanephrines, Fractionated Free, plasma (08/06/2016 5:00 PM EST) Normetanephrine, Free (OCTOBER) 0.24 <0.90 nmol/L [facility] Comment: Test Performed by: [place] [address] Sped Teacher: Jamir Chino II, M.D., Ph.D. Metanephrine, Free (OCTOBER) <0.20 <0.50 nmol/L [facility] Comment: ADDITIONAL INFORMATION This test was developed and its performance characteristics determined by [facility] in a manner consistent with CLIA requirements. This test has not been cleared or approved by the U.S. Food and Drug Administration. Test Performed by: [address] [address] Sped Teacher: Jamir Chino II, M.D., Ph.D. Blood specimen (specimen) 08/06/2016 5:00 PM EST 08/07/2016 8:57 AM EST Narrative Resulting Agency Comment Spec In Lab Yareli Morales MD LAB SEND OUT ORDERAB LES Performing Organization Address [facility] Co de Phone Number [facility] [place] [address] * Prolactin (08/06/2016 5:00 PM EST) Prolactin 17.0 4.8 - 23.3 ng/mL [facility] Blood specimen (specimen) 08/06/2016 5:00 PM EST 08/06/2016 5:03 PM EST Narrative Resulting Agency Comment Spec In Lab Yareli Morales MD CHEMISTRY ORDERABLES Performing Organization Address [facility] de Phone Number [facility] [place] [address] * Estradiol (08/06/2016 5:00 PM EST) Estradiol 61 pg/mL [facility] Comment: Reference ranges: Males: ??Adult: ? 26 to 61 pg/mL Females: Non- females: ?Follicular: ??12-233 pg/mL ?Ovulation: ?? 41-398 pg/mL ?Luteal: ?22-341 pg/mL ?Postmenopausal: ?? <5 -138 pg/mL females: ?1st trimester: ??154-3243 pg/mL ?2nd trimester: ??1561-14093 pg/mL ?3rd trimester: ??8525- >04680 pg/mL Blood specimen (specimen) 08/06/2016 5:00 PM EST 08/06/2016 5:03 PM EST Narrative Resulting Agency Comment Spec In Lab Yareli Morales MD CHEMISTRY ORDERABLES Performing Organization Address [facility] de Phone Number [facility] [place] [address] * Luteinizing Hormone (08/06/2016 5:00 PM EST) Luteinizing Hormone 5.9 mlU/ML [facility] Comment: Reference ranges: ?? Females ?? Follicular: ? 2.4-12.6 mIU/mL ?? Ovulation: ?14.0-95.6 mIU/mL ?? Luteal: ? 1.0-11.4 mIU/mL ?? Postmenopausal: ? 7.7-58.5 mIU/mL Blood specimen (specimen) 08/06/2016 5:00 PM EST 08/06/2016 5:03 PM EST Narrative Resulting Agency Comment Spec In Lab Yareli Morales MD CHEMISTRY ORDERABLES Performing Organization Address [facility] de Phone Number [facility] [place] [address] * Follicle Stimulating Hormone (08/06/2016 5:00 PM EST) Follicle Stimulating Hormone 5.8 mlU/ML [facility] Comment: Reference Ranges: Females: Follicular: ? 3.5-12.5 mIU/mL Ovulation: ?4.7-21.5 mIU/mL Luteal: ? 1.7-7.7 mIU/mL Postmenopausal: 25.8-134.8 mIU/mL Blood specimen (specimen) 08/06/2016 5:00 PM EST 08/06/2016 5:03 PM EST Narrative Resulting Agency Comment Spec In Lab Yareli Morales MD CHEMISTRY ORDERABLES Performing Organization Address [facility] de Phone Number [facility] [place] [address] * (ABNORMAL) Thyroglobulin Antibody (08/06/2016 5:00 PM EST) Thyroglob Ab 43.7(H) 0.0 - 40.0 IU/mL [facility] Comment: Assay performed is the DPC Immulite Tg-Ab immunometric assay. (Cutoff for TgAb negativity is <20 IU/ml) Blood specimen (specimen) 08/06/2016 5:00 PM EST 08/07/2016 8:09 AM EST Narrative Resulting Agency Comment Spec In Lab Yareli Morales MD LAB SEND OUT ORDERAB LES Performing Organization Address [facility] de Phone Number [facility] [place] [address] * Thyroid peroxidase antibody (08/06/2016 5:00 PM EST) Thyroperoxidase Ab <10 <=34 IU/mL [facility] Blood specimen (specimen) 08/06/2016 5:00 PM EST 08/07/2016 8:09 AM EST Narrative Resulting Agency Comment Spec In Lab Yareli Morales MD IMMUNOLOGY ORDERABLE S Performing Organization Address [facility] Co de Phone Number [facility] [place] [address] * (ABNORMAL) T3 Total (08/06/2016 5:00 PM EST) T3 Total 67(L) 75 - 170 ng/dL [facility] Blood specimen (specimen) 08/06/2016 5:00 PM EST 08/06/2016 5:03 PM EST Narrative Resulting Agency Comment Spec In Lab Yareli Morales MD CHEMISTRY ORDERABLES Performing Organization Address City/[facility]/ZIP Co de Phone Number [facility] [place] [address] * T4, free (08/06/2016 5:00 PM EST) Free T4 1.11 0.93 - 1.70 ng/dL [facility] Blood specimen (specimen) 08/06/2016 5:00 PM EST 08/06/2016 5:03 PM EST Narrative Resulting Agency Comment Spec In Lab Yareli Morales MD CHEMISTRY ORDERABLES Performing Organization Address City/[facility]/ZIP Co de Phone Number [facility] [place] [address] * TSH (08/06/2016 5:00 PM EST) Pathologist [facility] Thyroid Stimulating Hormone 2.44 0.27 - 4.20 mcIU/mL [facility] Blood specimen (specimen) 08/06/2016 5:00 PM EST 08/06/2016 5:03 PM EST Narrative Resulting Agency Comment Spec In Lab Yareli Morales MD CHEMISTRY ORDERABLES Performing Organization Address City/[facility] Co de Phone Number [facility] [place] [address] * Androstenedione (08/06/2016 5:00 PM EST) Androstenedione (OCTOBER) 114 30 - 200 ng/dL [facility] Comment: ADDITIONAL INFORMATION This test was developed and its performance characteristics determined by [facility] in a manner consistent with CLIA requirements. This test has not been cleared or approved by the U.S. Food and Drug Administration. Test Performed by: [facility] - [address] [address] Sped Teacher: Jamir Chino II, M.D., Ph.D. Blood specimen (specimen) 08/06/2016 5:00 PM EST 08/06/2016 5:53 PM EST Narrative Resulting Agency Comment Spec In Lab Yareli Morales MD LAB SEND OUT ORDERAB LES Performing Organization Address [facility] Co de Phone Number [facility] [place] [phone] * Testosterone, total and free (08/06/2016 5:00 PM EST) Testo Total 32 2 - 45 ng/dL [facility] Comment: For more information on this test, go to http://education.Wordseye/faq/ TotalTestosteroneLCMSMS Testo Free (OCTOBER) 2.9 0.1 - 6.4 pg/mL [facility] Comment: Test Performed by [facility], [facility][1], [address] [place] [address] Kevan Selby M.D., Ph.D., Director of Laboratories , [facility] [id number] Blood specimen (specimen) 08/06/2016 5:00 PM EST 08/07/2016 8:55 AM EST Narrative Resulting Agency Comment Spec In Lab Yareli Morales MD LAB SEND OUT ORDERAB LES Performing Organization Address [facility] Co de Phone Number [facility] [place] [address] documented in this encounter Visit Diagnoses Diagnosis Hirsutism Chronic fatigue Other malaise and fatigue Galactorrhea Galactorrhea not associated with childbirth Tremulousness Abnormal involuntary movements Vitamin D deficiency Unspecified vitamin D deficiency Transaminitis Nonspecific elevation of levels of transaminase or lactic acid dehydrogenase (LDH) Elevated ferritin level Other abnormal blood chemistry Loose stools Abnormal feces Polyarthralgia Pain in joint, multiple sites Type 2 diabetes mellitus with hyperglycemia, with long-term current use of insulin Misha's thyroiditis Chronic lymphocytic thyroiditis Vitamin D deficiency Unspecified vitamin D deficiency Hypertriglyceridemia Pure hyperglyceridemia documented in this encounter Care Teams Outdoor Landscape Architect Relationship Specialty Start Date End Date Tristan Soliman DO [address] [place] [address] PCP - General 05/09/10 11/26/16 documented as of this encounter
--- OUTSIDE RECORDS SUMMARY | 2024-06-19 14:51 | XMS_ITS | Encounter Summary ---
Author Organization [facility] [place] [address] Care Team Providers Care Mechanical Process Engineer Name Role Phone Tristan Soliman Primary Care Provider [phone] Encounter Details Date Type Department Care Team (Late st Contact Info) Description 09/13/[address] [place] [address] Keith Nunez Social History Tobacco Use Types [...] AM EST TH Visit (TeleHealth) [place] [address] Blade Martinez MD [facility] [place] [address] 05/10/2025 4:30 PM EST Office Visit Dermatology at [place] [address] [facility] [place] [address] Andreas Richardson MD [address] [facility], [place] [address] documented as of this encounter Visit Diagnoses Not on filedocumented in this encounter Care Teams Mechanical Process Engineer Relationship Specialty Start Date End Date Tristan Soliman DO [address] [place] [address] PCP - General 05/09/10 11/26/16 documented as of this encounter
--- OUTSIDE RECORDS SUMMARY | 2024-06-19 14:51 | XMS_ITS | Encounter Summary ---
[place] [address] Care Team Providers Care Risk Control Product Liability Director Name Role Phone Tristan Soliman DO Primary Care Provider [phone] Encounter Details Date Type Department Care Team (Latest Contact Info) Description 09/19/2016 11:00 AM EDT - 09/19/2016 11:46 AM EDT Hospital Encounter [place] [address] Errol Crowley, [place] [address] [place], [place] [address] Abdominal pain, lower Discharge Disposition: Home Social [...] AM EST TH Visit (TeleHealth) [place] [address] Blade Martinez MD [facility] [place] [address] 05/10/2025 4:30 PM EST Office Visit Dermatology at [place] [address] [facility] [place] [address] Andreas Richardson MD [address], [place] [address] documented as of this encounter Procedures Procedure [...] 12:02 pm) PATIENT INFO: ID #: ? [id number] ?: ??[birth year] (45 yrs) Name: ? RUSLAN CHAIREZ ? Visit Date: 09/19/2016 11:36 am PERFORMED BY: Performed By: ? Robbin Adrain RDMS Attending: ?Leonidas JHAVERI, Noris Hickman Associate: ?Dana JHAVERI, Kyler Garrett Referred By: ?ERROL CROWLEY [place] Location: ? [place] SERVICE(S) PROVIDED: ??[facility] - Abdominal Complete Survey - [id number] INDICATIONS: ??ABDOMINAL PAIN, PLEASE EXAMINE ??LIVER, BLADDER [...] 09/19/2016 12:02 pm) PATIENT INFO: ID #: [id number] : [birth year] (45 yrs) Name: RUSLAN CHAIREZ Visit Date: 09/19/2016 11:36 am PERFORMED BY: Performed By: Robbin Adrian RDMS Attending: Noris Lauren MD Associate: Kyler Cortez MD Referred By: ERROL CROWLEY ND Location: [place] SERVICE(S) PROVIDED: [facility] - Abdominal Complete Survey - [id number] INDICATIONS: ABDOMINAL PAIN, PLEASE EXAMINE LIVER, BLADDER [...] pain, lower Abdominal pain, other specified site Type 2 diabetes mellitus with hyperglycemia, with long-term current use of insulin Misha's thyroiditis Chronic lymphocytic thyroiditis Vitamin D deficiency Unspecified vitamin D deficiency Hypertriglyceridemia Pure hyperglyceridemia documented in this encounter Care Teams Risk Control Product Liability Director Relationship Specialty Start Date End Date Tristan Soliman DO [address] [place] [address] PCP - General 05/09/10 11/26/16 documented as of this encounter
--- OUTSIDE RECORDS SUMMARY | 2024-06-19 14:51 | XMS_ITS | Encounter Summary ---
Author Organization [facility] [place] [address] Care Team Providers Care Binder Technician Name Role Phone Tristan Soliman DO Primary Care Provider [phone] Encounter Details Date Type Department Care Team (Late st Contact Info) Description 08/17/2016 External Results [place] [address] Yareli Morales MD Social History Tobacco Use [...] AM EST TH Visit (TeleHealth) [place] [address] Blade Martinez MD [facility] [place] [address] 05/10/2025 4:30 PM EST Office Visit Dermatology at [place] [address] [facility] [place] [address] Andreas Richardson MD [address] [facility] [place] [address] documented as of this encounter Visit Diagnoses Not on filedocumented in this encounter Care Teams Binder Technician Relationship Specialty Start Date End Date Tristan Soliman DO [address] [place] [address] PCP - General 05/09/10 11/26/16 documented as of this encounter
--- OUTSIDE RECORDS SUMMARY | 2024-06-19 14:51 | XMS_ITS | Encounter Summary ---
Author Organization [facility] [place] [address] Care Team Providers Care Diesel Engine I Pipe Fitter Name Role Phone Tristan Soliman DO Primary Care Provider Reason for Visit * Reason Comments Referral * Consultation (Routine) - Closed Specialty Diagnoses / Procedures Referred By Conthai t Referred To Contact Rheumatology Diagnoses Polyarthralgia Yareli Morales MD [facility] [place] [address] [facility] Rheumatology [address] [place] [address] Referral ID Status Reason Start Date Expiration Date V isits Requested Visits Authorized [id number] Closed Consult, Test & Treat 08/06/2016 08/06/2017 1 1 Encounter Details Date Type Department Care Team (Late st Contact Info) Description 09/19/2016 10:00 AM EDT [place] [phone] Jacinta Browne [facility] [place] [address] Arthralgia of both hands; Psoriasis; Somatic complaints, [...] next . She is also seeing a mechanical specialist who reports that her cortisol testing is off. The mechanical specialist felt aln on her neck during the exam and an US confirmed the ln and a CT neck was completed today. Since she has been off of therapy for her psoriasis it has been quite active on her hands, dorsum of her feet, knees and elbows. Her care mgr wants to start cosentyx but she wanted [...] or periungual erythema noted. But has nail albanian on Neurologic: gait nl from all ext [...] disease. Her recent CRP was normal at [facility]. Will assess plain radiographs of the hands, if there are changes c/w psa would manage as such, otherwise she is having a colonoscopy to assess further for the presence of celiac disease next week and if pos, she will pursue a gluten free diet and fu in 3 mos, if her symptoms are not improved would reconsider Psa. Psoriasis: agree with her care mgr that additional medication is needed to manage her psoriasis, the plan for cosentyx is certainly reasonable, she will fu with him to further discuss. Also reviewed arava with her or elida. CC: Tristan Soliman DO documented in this encounter Plan of Treatment Upcoming Encounters Date Type Department Care Team (Late st Contact Info) Description 06/23/2024 11:30 AM EST TH Visit (TeleHealth) [place] [address] Blade Martinez MD [facility] [place] [address] 05/10/2025 4:30 PM EST Office Visit Dermatology at [place] [address] [facility] [place] [address] Andreas Richardson MD [address] [facility], [place] [address] documented as of this encounter Results * [...] suggestive of ulnocarpal abutment. Jacinta Browne DO Renetta DX ORDERABLES documented in this encounter Visit Diagnoses Diagnosis Arthralgia of both hands Psoriasis Other psoriasis Somatic complaints, multiple Other general symptoms Arthralgia of both hands Type 2 diabetes mellitus with hyperglycemia, with long-term current use of insulin Ming's thyroiditis Chronic lymphocytic thyroiditis Vitamin D deficiency Unspecified vitamin D deficiency Hypertriglyceridemia Pure hyperglyceridemia documented in this encounter Care Teams Diesel Engine I Pipe Fitter Relationship Specialty Start Date End Date Tristan Soliman DO [address] [place] [address] PCP - General 05/09/10 11/26/16 documented as of this encounter
--- OUTSIDE RECORDS SUMMARY | 2024-06-19 14:51 | XMS_ITS | Encounter Summary ---
Author Organization [facility] [place] [address] Care Team Providers Care Chemical Test Engineer Name Role Phone Leonor Hendricks MD Primary Care Provider [phone] Reason for Referral * Consultation (Routine) - Closed Specialty Diagnoses / Procedures Referred By Contac t Referred To Contact Sleep Center Diagnoses Snoring Procedures PRG POLYSOM 6+ YRS SLEEP W 4+ ADDL CAMMY Marci Tripp MD [facility] [place] [address] [facility] Sleep Medicine [address] [place] [address] Referral ID Status Reason Start Date Expiration Date V isits Requested Visits Authorized [id number] Closed Test Only 04/23/2017 07/26/2017 1 1 Reason for Visit * Consultation (Routine) - Closed Specialty Diagnoses / Procedures Referred By Contac t Referred To Contact Sleep Center Diagnoses Snoring Daytime sleepiness Anxiety Lucrecia Vang APRN [facility] [place] [address] [facility] Sleep Medicine [address] [place] [address] Referral ID Status Reason Start Date Expiration Date V isits Requested Visits Authorized [id number] Closed Test Only 2016 2017 1 1 Encounter Details Date Type Department Care Team (Late st Contact Info) Description 12/28/2016 3:00 PM EDT Procedure visit Sleep Center at [address] [place] [address] Marci Cintron MD [facility] [place] [address] Snoring Social History Tobacco Use Types Packs/Day [...] for further diagnosis. Recommendations: In lab [facility] Sleep Disorders Center HOME SLEEP APNEA TEST REPORT Patient Name: Jesika Sprague Study Date: 12/30/2016 Age & Sex: 46 y.o. Female Height: 5'3 Date of : 1970 Weight: 195 BMI: 34.5 Referring Prov.: LEONOR HENDRICKS M.D. Scoring Tech: RUDY SULLIVAN [facility] Sleep Fellow: Sleep Specialist: General Test Details Type III home sleep apnea testing was performed utilizing nasal pressure, single thoracoabdominal movement, heart rate, and oxygen saturation according to established AASM guidelines. Recording Start Time: Monitoring Start Time: Recording End Time: Monitoring End Time: Total Recording Time (TRT): 598.0 minutes Monitoring Time (MT): 598.0 minutes Respiratory Details Respiratory Event Total Count Index (events/hr) Obstructive apnea 0 0.0 Mixed apnea 0 0.0 Central apnea 6 0.6 Sum of all apnea types 6 0.6 Hypopneas without associated desaturation 0 0.0 Hypopneas with desaturation >=3% (AASM) 48 4.8 Hypopneas with desaturation >=4% (CMS) 14 1.4 Respiratory Event Index (PRITESH): 5.4 *Includes the sum of all apneas and hypopneas (assoc. with desaturation of >=3%) per hour of monitoring. 4% Respiratory Event Index (4%AHI, previously referred to as ???AHI???): 2.0 *Includes the sum of all apneas and hypopneas (assoc. with desaturation of >=4%) per hour of monitoring. 4% AHI: 2.0 *Includes the sum of all apneas and hypopneas (assoc. with desaturation of >=4%) per hour of monitoring. Walter-Suresh Breathin.0% of total monitoring time Minimum SpO2: 83% Average SpO2 (during TRT): 94% SpO2 <= X%: Total Time <=90% 12.5 min <=89% 12.2 min <=88% 11.6 min SpO2 Ranges: Total Time 90%-99% [...] AM EST TH Visit (TeleHealth) [place] [address] Blade Martinez MD [facility] [place] [address] 05/10/2025 4:30 PM EST Office Visit Dermatology at [place] [address] [facility] [place] [address] Andreas Richardson MD [address], [address] [place] [address] Scheduled Referrals Name Type Priority Associated Diagnoses Orde r Schedule Referral to Sleep Disorders Center Outpatient Referral Routine Snoring Ordered: 01/11/2017 documented as of this encounter Visit Diagnoses Diagnosis Snoring Other dyspnea and respiratory abnormality Type 2 diabetes mellitus with hyperglycemia, with long-term current use of insulin Misha's thyroiditis Chronic lymphocytic thyroiditis Vitamin D deficiency Unspecified vitamin D deficiency Hypertriglyceridemia Pure hyperglyceridemia documented in this encounter Care Teams Chemical Test Engineer Relationship Specialty Start Date End Date Leonor Hendricks MD [address] [place] [address] PCP - General Family Medicine 11/27/16 documented as of this encounter
--- OUTSIDE RECORDS SUMMARY | 2024-06-19 14:51 | XMS_ITS | Encounter Summary ---
Author Organization [facility] [place] [address] Care Team Providers Care Arc Air Operator Name Role Phone Tristan Soliman DO Primary Care Provider Encounter Details Date Type Department Care Team (Late st Contact Info) Description 11/21/2016 External Results [place] [address] Yareli Morales MD Misha's thyroiditis Social History [...] AM EST TH Visit (TeleHealth) [place] [address] Blade Martinez MD [facility] [place] [address] 05/10/2025 4:30 PM EST Office Visit Dermatology at Home [address] [facility] [place] [address] Andreas Richardson MD [address] [facility] [address] [facility] [address], [place] [address] documented as of this encounter Procedures Procedure Name Priority Date/Time Associated Diagnosis Comments TSH Routine 11/19/2016 Misha's thyroiditis T4, FREE Routine 11/19/2016 Misha's thyroiditis documented in this encounter Results * (ABNORMAL) T4, free (11/19/2016) Free T4 0.79(Aircraft Mechanic al Lab) Blood specimen (specimen) 11/19/2016 Yareli [...] hyperglyceridemia documented in this encounter Care Teams Arc Air Operator Relationship Specialty Start Date End Date Tristan Soliman DO [address] [place] [address] [address] PCP - General 05/09/10 11/26/16 documented as of this encounter
--- OUTSIDE RECORDS SUMMARY | 2024-06-19 14:51 | XMS_ITS | Encounter Summary ---
Author Organization [facility] [place] [address] Care Team Providers Care Java Designer Name Role Phone JourdanTristan DO Primary Care Provider Reason for Referral * Consultation (Routine) - Specialty Diagnoses / Procedures Referred By Conthai t Referred To Contact Sleep Center Diagnoses Sleep concern Yareli Morales MD [facility] [place] [address] [facility] Sleep Medicine [address] [place] [address] Referral ID Status Reason Start Date Expiration Date V isits Requested Visits Authorized [id number] Consult, Test & Treat 10/19/2016 10/19/2017 1 1 Encounter Details Date Type Department Care Team (Late st Contact Info) Description 10/19/2016 2:30 PM EDT Office [place] [address] Yareli Morales MD Sleep concern Social History Tobacco Use Types [...] discuss some recent testing performed by her meat blender, because the reports seem to suggest an [...] Reactions ??? Stelara [Ustekinumab] Other (See Comments) Fsqozoqug-mjivvro-mbscjpzhq SOCIAL HISTORY: History Smoking Status ??? Former [...] the testing she had done through her meat blender's clinic. The validated method for screening forCushing's syndrome according to the Endocrine Society Guidelines are either midnight salivary cortisol, 24 hr urine free cortisol, or a 1mg overnight dexamethasone suppression test. She had a 24h urine free cortisol test apparently done by the meat blender, however the method of collection is not [...] to glucocorticoid & mineralocorticoid activity. The enzyme 54-jijh-dszuuynhxepowm dehydrogenase is charged with inactivating cortisol to [...] ended up purchasing some supplements from her [employer] to address these abnormalities, but seems to be more reassured about these. Clinically she does not have any clinical stigmata of Kenney's syndrome, other than perhaps some weight gain, which is very nonspecific, and has difficulty with early awakening rather than falling asleep. Since she continues to harborsome concern about hypercortisolemia, though, I offered for her to undergo midnight salivary cortisol x 2 for screening. Since she is on HRT, serum-based Kenney's screening would not be recommended due to unreliable results anticipated due to the associated elevation of cortisol binding globulin. Her description of order tracer awakening and feeling wired for hours after [...] method of testing, etc. YARELI MORALES MD Water Pollution Scientistmachine fur cleaner Section of Endocrinology [facility] documented in this encounter Plan of Treatment Upcoming Encounters Date Type Department Care Team (Late st Contact Info) Description 06/23/2024 11:30 AM EST TH Visit (TeleHealth) [place] [address] Blade Martinez MD [facility] [place] [address] 05/10/2025 4:30 PM EST Office Visit Dermatology at [place] [address] [facility] [place] [address] Andreas Richardson MD [address], [place] [address] Scheduled Referrals Name Type Priority Associated Diagnoses Orde r Schedule Referral to Sleep Disorders Center Outpatient Referral Routine Sleep concern Ordered: 10/19/2016 documented as of this encounter Results * Cortisol, saliva (10/20/2016 11:00 AM EDT) Jamari Saliva Midnight (OCTOBER) 75 <100 ng/dL [facility] Comment: ADDITIONAL INFORMATION This test was developed and its performance characteristics determined by [facility] in a manner consistent with CLIA requirements. This test has not been cleared or approved by the U.S. Food and Drug Administration. Test Performed by: [facility] - [address] [address] Specimen of unknown material (specimen) 10/20/2016 11:00 AM EDT 10/23/2016 12:05 PM EDT Yareli Morales MD LAB SEND OUT ORDERAB LES Performing Organization Address [facility] Co de Phone Number [facility] [place] [address] * Cortisol, saliva (10/19/2016 11:00 AM EDT) Jamari Saliva Midnight (OCTOBER) <50 <100 ng/dL [facility] Comment: ADDITIONAL INFORMATION This test was developed and its performance characteristics determined by [facility] in a manner consistent with CLIA requirements. This test has not been cleared or approved by the U.S. Food and Drug Administration. Test Performed by: [facility] - [address] [address] Specimen of unknown material (specimen) 10/19/2016 11:00 AM EDT 10/23/2016 12:05 PM EDT Yareli Morales MD LAB SEND OUT ORDERAB LES Performing Organization Address [facility] de Phone Number [facility] [place] [address] documented in this encounter Visit Diagnoses Diagnosis Sleep concern Problems related to lack of adequate sleep Type 2 diabetes mellitus with hyperglycemia, with long-term current use of insulin Misha's thyroiditis Chronic lymphocytic thyroiditis Vitamin D deficiency Unspecified vitamin D deficiency Hypertriglyceridemia Pure hyperglyceridemia documented in this encounter Care Teams Java Designer Relationship Specialty Start Date End Date Tristan Soliman DO [address] [place] [address] PCP - General 05/09/10 11/26/16 documented as of this encounter
--- OUTSIDE RECORDS SUMMARY | 2024-06-19 14:51 | XMS_ITS | Encounter Summary ---
[place] [address] Care Team Providers Care Spot Welder Body Assembly Name Role Phone Tristan Soliman DO Primary Care Provider [phone] Encounter Details Date Type Department Care Team (Late st Contact Info) Description 10/29/2016 Telephone [place] [address] Beverly Morrow RN Social History Tobacco Use [...] secretaries to get sleep study sent to [place] [facility]. documented in this encounter Plan of Treatment Upcoming Encounters Date Type Department Care Team (Late st Contact Info) Description 06/23/2024 11:30 AM EST TH Visit (TeleHealth) [place] [address] Blade Martinez MD [facility] [place] [address] 05/10/2025 4:30 PM EST Office Visit Dermatology at [place] [address] [facility] [place] [address] Andreas Richardson MD [address] [address] [address], [place] [address] documented as of this encounter Visit Diagnoses Not on filedocumented in this encounter Care Teams Spot Welder Body Assembly Relationship Specialty Start Date End Date Tristan Soliman DO [address] [place] [address] PCP - General 05/09/10 11/26/16 documented as of this encounter
--- OUTSIDE RECORDS SUMMARY | 2024-06-19 14:51 | XMS_ITS | Encounter Summary ---
[place] [address] Care Team Providers Care Track Welder Name Role Phone Tristan Soliman DO Primary Care Provider Encounter Details Date Type Department Care Team (Latest Contact Info) Description 09/12/2016 2:04 PM EDT - 09/12/2016 11:59 PM EDT Hospital En[place] [address] Kylee Crowley, [place] [address] [place], [place] [address] Localized enlarged lymph nodes Discharge Disposition: Home [...] AM EST TH Visit (TeleHealth) [place] [address] Blade Martinez MD [facility] [place] [address] 05/10/2025 4:30 PM EST Office Visit Dermatology at [place] [address] [facility] [place] [address] Andreas Richardson MD [address] [facility], [place] [address] documented as of this encounter Procedures Procedure [...] 06:30 pm) PATIENT INFO: ID #: ? [id number] ?: ??[id number] (45 yrs) Name: ? RUSLAN CHAIREZ ? Visit Date: 09/12/2016 02:35 pm PERFORMED BY: Performed By: ? Esme DONG, ??Lauren Attending: ?Eden JHAVERI, Jacinta Fine Associate: ?Dana JHAVERI, Kyler Garrett Referred By: ?KYLEE CROWLEY ND Location: ? [place] SERVICE(S) PROVIDED: ??[facility] - Soft Tissue Neck or Head - [id number] ? [id number] INDICATIONS: ??enlarged ymph nodes, neck COMPARISON: Noncontrast head CT 05/21/16. LYMPH NODES: 1) Benign appearing lymph node measuring 1.5 x 1.1 x 0.4 cm ??mid left anterior neck. ?? 2) Probable lymph node measuring 2.0 x 0.6 x 2.1 cm inferior left anterior neck. ??3) Left parotid hypoechoic lesion measuring 0.6 x 0.8 x 0.6 cm. Resulting Agency Comment Unexpected Finding Kylee Crowley ND IMG US GEN ORDERAB LES documented in this encounter Visit Diagnoses Diagnosis Localized enlarged lymph nodes Enlargement of lymph nodes Type 2 diabetes mellitus with hyperglycemia, with long-term current use of insulin Misha's thyroiditis Chronic lymphocytic thyroiditis Vitamin D deficiency Unspecified vitamin D deficiency Hypertriglyceridemia Pure hyperglyceridemia documented in this encounter Care Teams Track Welder Relationship Specialty Start Date End Date Tristan Soliman DO [address] [place] [address] PCP - General 05/09/10 11/26/16 documented as of this encounter
--- OUTSIDE RECORDS SUMMARY | 2024-06-19 14:51 | XMS_ITS | Encounter Summary ---
Author [facility] [place] [address] Care Team Providers Care Body Wirer Name Role Phone Jourdan, Tristan OLIVAREZ Primary Care Provider [phone] Encounter Details Date Type Department Care Team (Latest Contact Info) Description 10/19/2016 11:18 AM EDT - 10/19/2016 11:59 PM EDT [place] [address] Sleep concern Discharge Disposition: Home Social History [...] AM EST TH Visit (TeleHealth) [place] [address] Blade Martinez MD [facility] [place] [address] 05/10/2025 4:30 PM EST Office Visit Dermatology at [place] [address] [facility] [place] [address] Andreas Richardson MD [address] [facility], [place] [address] documented as of this encounter Procedures Procedure Name Priority Date/Time Associated Diagnosis Comments CORTISOL, SALIVA Routine 10/20/2016 11:0 0 AM EDT Sleep concern CORTISOL, SALIVA Routine 10/19/2016 11:0 0 AM EDT Sleep concern documented in this encounter Results * Cortisol, saliva (10/20/2016 11:00 AM EDT) Jamari Saliva Midnight (OCTOBER) 75 <100 ng/dL [facility] Comment: ADDITIONAL INFORMATION This test was developed and its performance characteristics determined by [facility] in a manner consistent with CLIA requirements. This test has not been cleared or approved by the U.S. Food and Drug Administration. Test Performed by: [facility] - [address] [address] Specimen of unknown material (specimen) 10/20/2016 11:00 AM EDT 10/23/2016 12:05 PM EDT Yareli Morales MD LAB SEND OUT ORDERAB LES Performing Organization Address [facility] Co de Phone Number [facility] [place] [address] * Cortisol, saliva (10/19/2016 11:00 AM EDT) Jamari Saliva Midnight (OCTOBER) <50 <100 ng/dL [facility] Comment: ADDITIONAL INFORMATION This test was developed and its performance characteristics determined by [facility] in a manner consistent with CLIA requirements. This test has not been cleared or approved by the U.S. Food and Drug Administration. Test Performed by: [facility] - [address] [address] Specimen of unknown material (specimen) 10/19/2016 11:00 AM EDT 10/23/2016 12:05 PM EDT Yareli Morales MD LAB SEND OUT ORDERAB LES Performing Organization Address [facility] Co de Phone Number [facility] [place] [address] documented in this encounter Visit Diagnoses Diagnosis Sleep concern Problems related to lack of adequate sleep Type 2 diabetes mellitus with hyperglycemia, with long-term current use of insulin Misha's thyroiditis Chronic lymphocytic thyroiditis Vitamin D deficiency Unspecified vitamin D deficiency Hypertriglyceridemia Pure hyperglyceridemia documented in this encounter Care Teams Body Wirer Relationship Specialty Start Date End Date Tristan Soliman DO [address] [place] [address] PCP - General 05/09/10 11/26/16 documented as of this encounter
--- OUTSIDE RECORDS SUMMARY | 2024-06-19 14:51 | XMS_ITS | Encounter Summary ---
[place] [address] Care Team Providers Care Python Developer Name Role Phone Tristan Soliman DO Primary Care Provider [phone] Encounter Details Date Type Department Care Team (Latest Contact Info) Description 09/12/2016 1:27 PM EDT - 09/12/2016 2:03 PM EDT Hospital [place] [address] Errol Crowley, [place] [address] [place] [address] Other intra-abdominal and pelvic swelling, mass and [...] AM EST TH Visit (TeleHealth) [place] [address] Blade Martinez MD [facility] [place] [address] 05/10/2025 4:30 PM EST Office Visit Dermatology at [place] [address] [facility] [place] [address] Andreas Richardson MD [address] [facility], [place] [address] documented as of this encounter Procedures Procedure [...] ? am) PATIENT INFO: ID #: ? [id number] ?: ??[birth year] (45 yrs) Name: ? RUSLAN CHAIREZ ? Visit Date: 09/12/2016 02:31 pm PERFORMED BY: Performed By: ? Esme DONG, ??Lauren Attending: ?Eden JHAVERI, Jacinta Fine Associate: ?Dana JHAVERI, Kyler aGrrett Referred By: ?ERROL CROWLEY ND Location: ? [place] SERVICE(S) PROVIDED: ??UTV - Transvaginal - [id number] ?[id number] INDICATIONS: ??ovarian lesion noted on u/s done at [facility] 2 ??weeks ago, please f/u and evaluate [...] 10/17/2016 10:04 am) PATIENT INFO: ID #: [id number] : 74 (45 yrs) Name: RUSLAN CHAIREZ Visit Date: 09/12/2016 02:31 pm PERFORMED BY: Performed By: Lauren Victoria RDMS Attending: Jacinta Harmon MD Associate: Kyler Cortez MD Referred By: ERROL CROWLEY ND Location: [place] SERVICE(S) PROVIDED: UTV - Transvaginal - [id number] INDICATIONS: ovarian lesion noted on u/s done at [facility] 2 weeks ago, please f/u and evaluate [...] Errol Crowley ND IMG US PELVIC ORDE RABLES documented in this encounter Visit Diagnoses Diagnosis Other intra-abdominal and pelvic swelling, mass and lump Type 2 diabetes mellitus with hyperglycemia, with long-term current use of insulin Misha's thyroiditis Chronic lymphocytic thyroiditis Vitamin D deficiency Unspecified vitamin D deficiency Hypertriglyceridemia Pure hyperglyceridemia documented in this encounter Care Teams Python Developer Relationship Specialty Start Date End Date Tristan Soliman DO [address] [place] [address] PCP - General 05/09/10 11/26/16 documented as of this encounter
--- OUTSIDE RECORDS SUMMARY | 2024-06-19 14:52 | XMS_ITS | Encounter Summary ---
Author Organization [facility] [place] [address] Care Team Providers Care Test Skein Winder Name Role Phone Tristan Soliman Primary Care Provider [phone] Reason for Visit * Reason Comments Injections Encounter Details Date Type Department Care Team (Late st Contact Info) Description 05/27/2012 3:00 PM EST Follow-Up Dermatology at [address] [address] Tammi Carey MD Psoriasis (Primary Dx) Discharge Disposition: Home Social [...] supervision with direct supervision immediately available. (definition: [facility]ME Policy Statement on Graduate Medical Education, [...] 45 mg/0.5mL. Repeat in 4 weeks then [id number] after that. -Labs at next visit CBC, CMP. (pt w/ slight lab abnormalities previously, PCP aware and ok with them) Patient will keep her next Stelara appointment here on 06/30/12, then will transfer her care back to [facility] in [facility]. RTC in 1 month for next injection. Instructed to call for questions/concerns. Tammi Carey MD Resident in Dermatology [facility] staff digital media designer: Lorena Guthrie MD Section of Dermatology [facility] documented in this encounter Plan of Treatment Upcoming Encounters Date Type Department Care Team (Late st Contact Info) Description 06/23/2024 11:30 AM EST TH Visit (TeleHealth) [place] [address] Blade Martinez MD [facility] [place] [address] 05/10/2025 4:30 PM EST Office Visit Dermatology at [place] [address] [place] [address] Andreas [place] MD [address] [facility] [address], [place] [address] documented as of this encounter Visit Diagnoses Diagnosis Psoriasis- Primary Other psoriasis Type 2 diabetes mellitus with [...] Arm documented in this encounter Care Teams Test Skein Winder Relationship Specialty Start Date End Date Tristan Soliman DO [address] [facility] [place] [address] PCP - General 05/09/10 11/26/16 documented as of this encounter
--- OUTSIDE RECORDS SUMMARY | 2024-06-19 14:52 | XMS_ITS | Encounter Summary ---
Author Organization [facility] [place] [address] Care Team Providers Care Quenching Machine Operator Name Role Phone Tristan Soliman DO Primary Care Provider Encounter Details Date Type Department Care Team (Late st Contact Info) Description 03/12/2011 Abstract Dermatology [address] [place] [address] Yareli Rocha, RN Social History Tobacco Use Types Packs/Day [...] TH Visit (TeleHealth) [place] [address] Blade Martinez MD [facility] [place] [place] [address] 05/10/2025 4:30 PM EST Office Visit Dermatology at [place] [address] [facility] [address] [place] [address] Andreas [place] MD [address] [facility] [address], [place] [address] documented as of this encounter Visit Diagnoses Not on filedocumented in this encounter Care Teams Quenching Machine Operator Relationship Specialty Start Date End Date Tristan Soliman DO [address] [place] [address] PCP - General 05/09/10 11/26/16 documented as of this encounter
--- OUTSIDE RECORDS SUMMARY | 2024-06-19 14:52 | XMS_ITS | Encounter Summary ---
Author Organization [facility] [place] [address] Care Team Providers Care Braille Translator Name Role Phone Tristan Soliman DO Primary Care Provider [phone] Encounter Details Date Type Department Care Team (Late st Contact Info) Description 03/05/2012 [place] [address] Tammi Carey MD Social History Tobacco Use Types Packs/Day [...] AM EST TH Visit (TeleHealth) [place] [address] Blade Martinez MD [facility] [place] [address] 05/10/2025 4:30 PM EST Office Visit Dermatology at [place] [address] [facility] [place] [address] Andreas [place] MD [address] [facility] [address], [place] [address] documented as of this encounter Visit Diagnoses Not on filedocumented in this encounter Care Teams Braille Translator Relationship Specialty Start Date End Date Tristan Soliman DO [address] [place] [address] PCP - General 05/09/10 11/26/16 documented as of this encounter
--- OUTSIDE RECORDS SUMMARY | 2024-06-19 14:52 | XMS_ITS | Encounter Summary ---
Author Organization [facility] [place] [address] Care Team Providers Care Market Superintendent Name Role Phone Tristan Soliman Primary Care Provider Encounter Details Date Type Department Care Team (Late st Contact Info) Description 03/04/2013 Orders Only Dermatology at [place] [facility] [address] [place] [address] Kell Young MD [facility] [place] [address] Psoriasis (Primary Dx) Social History Tobacco Use [...] AM EST TH Visit (TeleHealth) [place] [address] Blade Martinez MD [facility] [place] [address] 05/10/2025 4:30 PM EST Office Visit Dermatology at [place] [address] [facility] [place] [address] Andreas [place] MD [address] [facility], [place] [address] documented as of this encounter Visit Diagnoses Diagnosis Psoriasis- Primary Other psoriasis Type 2 diabetes mellitus with hyperglycemia, with long-term current use of insulin Misha's thyroiditis Chronic lymphocytic thyroiditis Vitamin D deficiency Unspecified vitamin D deficiency Hypertriglyceridemia Pure hyperglyceridemia documented in this encounter Care Teams Market Superintendent Relationship Specialty Start Date End Date Tristan Soliman DO [address] [place] [address] PCP - General 05/09/10 11/26/16 documented as of this encounter
--- OUTSIDE RECORDS SUMMARY | 2024-06-19 14:52 | XMS_ITS | Encounter Summary ---
Author Organization [facility] [place] [address] Care Team Providers Care Echocardiologist Name Role Phone Tristan Soliman Primary Care Provider Encounter Details Date Type Department Care Team (Late st Contact Info) Description 12/04/2012 Telephone Dermatology at [facility] [address] [place] [address] Danielle Ortega MD Social History Tobacco Use Types Packs/Day Years Used Date Smoking Tobacco: Former Sex and Gender Information Value Date Recorded Sex Assigned at Not on file Gender Identity Not on file Sexual Orientation Not on file documented as of this encounter Miscellaneous Notes * Telephone Encounter - Logan Powers - 12/05/2012 11:57 AM EDT [email or web address] # requesting pt call regarding her Decemberlara. She is due December 23, I called to order the shipment and [facility] was not able to proceed as they are waiting to confirm with patient. * Telephone Encounter - César Lundy LPN - 12/04/2012 11:01 AM EDT Patient is in need of a Stelara refill. Message forwarded to Danielle White MD for review. documented in this encounter Plan of Treatment Upcoming Encounters Date Type Department Care Team (Late st Contact Info) Description 06/23/2024 11:30 AM EST TH Visit (TeleHealth) [place] [address] Blade Martinez MD [facility] [place] [address] 05/10/2025 4:30 PM EST Office Visit Dermatology at [place] [address] [place] [address] Andreas [place] MD [address] [facility] [address], [place] [address] documented as of this encounter Visit Diagnoses Not on filedocumented in this encounter Care Teams Echocardiologist Relationship Specialty Start Date End Date Tristan Soliman DO [address] [facility] 1 [place] [address] PCP - General 05/09/10 11/26/16 documented as of this encounter
--- OUTSIDE RECORDS SUMMARY | 2024-06-19 14:52 | XMS_ITS | Encounter Summary ---
Author Organization [facility] [place] [address] Care Team Providers Care Loom Changer Name Role Phone Tristan Soliman DO Primary Care Provider [phone] Reason for Visit * Reason Comments Other Encounter Details Date Type Department Care Team (Late st Contact Info) Description 01/30/2013 Telephone Dermatology at [facility] [address] [place] [address] Tristan Mcmanus MD Social History Tobacco Use Types Packs/Day [...] AM EST TH Visit (TeleHealth) [place] [address] Blade Martinez MD [facility] [place] [address] 05/10/2025 4:30 PM EST Office Visit Dermatology at [address] [place] [address] Andreas Richardson MD [address] [facility], [place] [address] documented as of this encounter Visit Diagnoses Not on filedocumented in this encounter Care Teams Loom Changer Relationship Specialty Start Date End Date Tristan Soliman DO [address] [place] [address] PCP - General 05/09/10 11/26/16 documented as of this encounter
--- OUTSIDE RECORDS SUMMARY | 2024-06-19 14:52 | XMS_ITS | Encounter Summary ---
Author Organization [facility] [place] [address] Care Team Providers Care Cash Management Clerk Name Role Phone JourdanTristan batres Primary Care Provider Reason for Visit * Reason Onset Date Comments Other 04/09/2012 fyi Encounter Details Date Type Department Care Team (Late st Contact Info) Description 04/09/2012 [place] [address] Tammi Carey MD Other (fyi) Social History Tobacco Use Types [...] we don't schedule until it is delivered. Minoo has appointment with you on Apr 21. [...] AM EST TH Visit (TeleHealth) [place] [address] Blade Martinez MD [facility] [place] [address] 05/10/2025 4:30 PM EST Office Visit Dermatology at [place] [address] [facility] [place] [address] Andreas Richardson MD [address] [facility] [address], [place] [place] [address] documented as of this encounter Visit Diagnoses Not on filedocumented in this encounter Care Teams Cash Management Clerk Relationship Specialty Start Date End Date Tristan Soliman DO [address] [place] [address] PCP - General 05/09/10 11/26/16 documented as of this encounter
--- OUTSIDE RECORDS SUMMARY | 2024-06-19 14:52 | XMS_ITS | Encounter Summary ---
Author Organization [facility] [place] [address] Care Team Providers Care Toy Mechanic Name Role Phone Tristan Soliman DO Primary Care Provider Reason for Visit * Reason Onset Date Comments Other 03/03/2012 PA approval Encounter Details Date Type Department Care Team (Late st Contact Info) Description 03/03/2012 [place] [address] Tammi Carey MD Other (PA approval) Social History Tobacco Use Types Packs/Day Years Used Date Smoking Tobacco: Former Sex and Gender Information Value Date Recorded Sex Assigned at Not on file Gender Identity Not on file Sexual Orientation Not on file documented as of this encounter Miscellaneous Notes * Telephone Encounter - Domenica Webb - 03/03/2012 3:[address] Carey patient From [facility] approved; PA code 75 Effective Date; 03/03/12 Expiration date;09/02/14 Fill; unlimited catracho documented in this encounter Plan of Treatment Upcoming Encounters Date Type Department Care Team (Late st Contact Info) Description 06/23/2024 11:30 AM EST TH Visit (TeleHealth) [place] [address] Blade Martinez MD [facility] [address] 05/10/2025 4:30 PM EST Office Visit Dermatology at [place] [address] [facility] [address] [place] [address] Andreas Richardson MD [address] [facility] [address], [place] [address] documented as of this encounter Visit Diagnoses Not on filedocumented in this encounter Care Teams Toy Mechanic Relationship Specialty Start Date End Date Tristan Soliman DO [address] [facility] 1 [place] [address] PCP - General 05/09/10 11/26/16 documented as of this encounter
--- OUTSIDE RECORDS SUMMARY | 2024-06-19 14:52 | XMS_ITS | Encounter Summary ---
[place] [address] Care Team Providers Care Medical Delivery Driver Name Role Phone JourdanTristan DO Primary Care Provider Reason for Visit * Reason Comments Follow-up Psoriasis Encounter Details Date Type Department Care Team (Late st Contact Info) Description 05/15/2016 4:30 PM EST Office Visit Dermatology at [place] [address] [place] [address] Andreas Richardson MD [address] [facility], [address] A DERMATOLOGY [place], [place] [address] Psoriasis Social History Tobacco Use Types Packs/Day [...] AM EST TH Visit (TeleHealth) [place] [address] Blade Martinez MD [facility] [place] [address] 05/10/2025 4:30 PM EST Office Visit Dermatology at [place] [address] [place] [address] Andreas Richardson MD [address] [facility], [place] [address] documented as of this encounter Visit Diagnoses Diagnosis Psoriasis Other psoriasis Type 2 diabetes mellitus with hyperglycemia, with long-term current use of insulin Misha's thyroiditis Chronic lymphocytic thyroiditis Vitamin D deficiency Unspecified vitamin D deficiency Hypertriglyceridemia Pure hyperglyceridemia documented in this encounter Care Teams Medical Delivery Driver Relationship Specialty Start Date End Date Tristan Soliman DO [address] [place] [address] PCP - General 05/09/10 11/26/16 documented as of this encounter
--- OUTSIDE RECORDS SUMMARY | 2024-06-19 14:52 | XMS_ITS | Encounter Summary ---
Author Organization [facility] [place] [address] Care Team Providers Care Regional Sales Leader Name Role Phone Tristan Soliman DO Primary Care Provider [phone] Encounter Details Date Type Department Care Team (Late st Contact Info) Description 01/08/2013 Telephone Dermatology at [facility] [address] [place] [address] Heide Mchugh Social History Tobacco [...] PM EDT We received fax correspondence from [facility] advising they have been attempting to contact the patient regarding her stelara. They need to speak with her prior to sending us the RX. I left a message for the pt to call me back so she can contact the [facility]. She can reach them at [phone]. Patient has an appointment for her injection [...] prior authorization request form to Ana at [facility] (fax nbr [phone]). Dr. Mcmanus has approved the RX. Heide * Telephone Encounter - Heide Mchugh - 01/08/2013 2:27 PM EDT This is a previous Dr. Carey pt - I am currently working on a prior authorization for Stelara with Dr. Mcmanus. Heide documented in this encounter Plan of Treatment Upcoming Encounters Date Type Department Care Team (Late st Contact Info) Description 06/23/2024 11:30 AM EST TH Visit (TeleHealth) [place] [address] Blade Martinez MD [facility] [place] [address] 05/10/2025 4:30 PM EST Office Visit Dermatology at [place] [address] [place] [address] Andreas Richardson MD [address] [facility] [address], [place] [address] documented as of this encounter Visit Diagnoses Not on filedocumented in this encounter Care Teams Regional Sales Leader Relationship Specialty Start Date End Date rTistan Soliman DO [address] [place] [address] PCP - General 05/09/10 11/26/16 documented as of this encounter
--- OUTSIDE RECORDS SUMMARY | 2024-06-19 14:52 | XMS_ITS | Encounter Summary ---
Author Organization [facility] [place] [address] Care Team Providers Care Licensed Physical Therapist Assistant Name Role Phone JourdanTristan batres Primary Care Provider [phone] Encounter Details Date Type Department Care Team (Late st Contact Info) Description 08/17/2010 5:15 PM EST Office Visit Dermatology [facility] [address] [place], [place] [address] Andreas Richardson MD [address] [facility] [place] [address] Social History Tobacco Use Types Packs/Day Years [...] AM EST TH Visit (TeleHealth) [place] [address] Blade Martinez MD [facility] [place] [address] 05/10/2025 4:30 PM EST Office Visit Dermatology at [address] [address] Andreas Richardson MD [address] [facility] [place] [address] documented as of this encounter Visit Diagnoses Not on filedocumented in this encounter Care Teams Licensed Physical Therapist Assistant Relationship Specialty Start Date End Date Tristan Soliman DO [address] [place] [address] PCP - General 05/09/10 11/26/16 documented as of this encounter
--- OUTSIDE RECORDS SUMMARY | 2024-06-19 14:52 | XMS_ITS | Encounter Summary ---
Author Organization [facility] [place] [address] Care Team Providers Care Commission For The Blind Director Name Role Phone Tristan Soliman DO Primary Care Provider [phone] Reason for Visit * Reason Comments Other Encounter Details Date Type Department Care Team (Late st Contact Info) Description 08/28/2012 Telephone Dermatology at [facility] [address] [place] [address] Tammi Carey MD Social History Tobacco Use [...] Dr. Knapp office called and spoke with school secretary, they have them and are aware of results. documented in this encounter Plan of Treatment Upcoming Encounters Date Type Department Care Team (Late st Contact Info) Description 06/23/2024 11:30 AM EST TH Visit (TeleHealth) [place] [address] Blade Martinez MD [facility] [place] [address] 05/10/2025 4:30 PM EST Office Visit Dermatology at [place] [address] [facility] [place] [address] Andreas Richardson MD [address] [facility] [address], [address] [place] [address] documented as of this encounter Visit Diagnoses Not on filedocumented in this encounter Care Teams Commission For The Blind Director Relationship Specialty Start Date End Date Tristan Soliman DO [address] [facility] 1 [place] [address] PCP - General 05/09/10 11/26/16 documented as of this encounter
--- OUTSIDE RECORDS SUMMARY | 2024-06-19 14:52 | XMS_ITS | Encounter Summary ---
Author Organization [facility] [place] [address] Care Team Providers Care Sweatband Shaper Name Role Phone Tristan Soliman Primary Care Provider Encounter Details Date Type Department Care Team (Late st Contact Info) Description 2012 Telephone Dermatology at [facility] [address] [place] [address] Danielle Ortega MD Social History Tobacco Use Types Packs/Day Years Used Date Smoking Tobacco: Former Sex and Gender Information Value Date Recorded Sex Assigned at Not on file Gender Identity Not on file Sexual Orientation Not on file documented as of this encounter Miscellaneous Notes * Telephone Encounter - Logan oPwers - 2012 11:27 AM EDT Spoke with [employer] pharmacy rep who advised they have not [...] AM EST TH Visit (TeleHealth) [place] [address] Blade Martinez MD [facility] [place] [address] 05/10/2025 4:30 PM EST Office Visit Dermatology at [place] [address] [facility] [place] [address] Andreas Richardson MD [address] [facility] [address], [address] [place] [address] documented as of this encounter Visit Diagnoses Not on filedocumented in this encounter Care Teams Sweatband Shaper Relationship Specialty Start Date End Date Tristan Soliman DO [address] [place] [address] [address] [facility] 1 [place] [address] PCP - General 05/09/10 11/26/16 documented as of this encounter
--- OUTSIDE RECORDS SUMMARY | 2024-06-19 14:52 | XMS_ITS | Encounter Summary ---
Author Organization [facility] [place] [address] Care Team Providers Care Heat Treater Apprentice Name Role Phone Jourdan, Tristan OLIVAREZ Primary Care Provider Reason for Visit * Reason Comments Psoriasis Encounter Details Date Type Department Care Team (Late st Contact Info) Description 10/01/2014 11:30 AM EDT Office Visit Dermatology at [place] [address] [place] [address] Andreas Richardson MD [address], [place] [address] Psoriasis Discharge Disposition: Home Social History Tobacco [...] from the original note were not included. [facility] Psoriasis: After Your Visit Your Care Instructions Psoriasis (say xiw-DU-or-jefferson) is a long-term skin problem that causes [...] still damp. This seals in moisture. Use bsig-jtc-kpmudoi products that your doctor suggests. These may [...] more? Visit our health information library at [email or web address] You can also view health information on [employer], your personal patient account. Log in or sign up today. Enter U759 in the search box to learn more about Psoriasis: After Your Visit. ?? [phone] Vaddio. Care instructions adapted under license by [facility]. This care instruction is for use with your licensed healthcare professional. If you have questions about a medical condition or this instruction, always ask your healthcare professional. [employer] disclaims any warranty or liability for your use of this information. Content Version: 10.3.776358; Current as of: August 26, 2013 documented [...] AM EST TH Visit (TeleHealth) Endocr[place] [address] Blade Martinez MD [facility] [place] [address] 05/10/2025 4:30 PM EST Office Visit Dermatology at [place] [address] [place] [address] Andreas Richardson MD [address], [place] [address] documented as of this encounter Visit Diagnoses Diagnosis Psoriasis Other psoriasis Type 2 diabetes mellitus with hyperglycemia, with long-term current use of insulin Misha's thyroiditis Chronic lymphocytic thyroiditis Vitamin D deficiency Unspecified vitamin D deficiency Hypertriglyceridemia Pure hyperglyceridemia documented in this encounter Care Teams Heat Treater Apprentice Relationship Specialty Start Date End Date Tristan Soliman DO [address] [place] [address] PCP - General 05/09/10 11/26/16 documented as of this encounter
--- OUTSIDE RECORDS SUMMARY | 2024-06-19 14:52 | XMS_ITS | Encounter Summary ---
Author Organization [facility] [place] [address] Care Team Providers Care Samples And Repairs Preparer Name Role Phone Tristan Soliman DO Primary Care Provider [phone] Reason for Visit * Reason Comments Psoriasis Encounter Details Date Type Department Care Team (Late st Contact Info) Description 06/30/2012 2:00 PM EST Follow-Up Dermatology at [facility] [address] [place] [address] Tammi Carey MD Psoriasis (Primary Dx); Inflamed epidermoid cyst of [...] (45 mg/0.5 mL) (Patient supplied) (Lot #: [id number] Exp: 02/2013) -Labs ordered today: CBC, CMP [...] by: Tammi Carey MD Resident in Dermatology [facility] Patient seen and evaluated by supervising staff referral agent: Bridgett Reyes MD Section of Dermatology [facility] documented in this encounter Plan of Treatment Upcoming Encounters Date Type Department Care Team (Late st Contact Info) Description 06/23/2024 11:30 AM EST TH Visit (TeleHealth) [place] [address] Blade Martinez MD [facility] [place] [address] 05/10/2025 4:30 PM EST Office Visit Dermatology at [place] [address] [place] [address] Andreas Richardson MD [address], [place] [address] documented as of this encounter Procedures Procedure [...] EST Bridgett Reyes MD HEMATOLOGY ORDERABLE S [facility] * Comprehensive metabolic panel (non-fasting) (06/30/2012 2:58 PM EST) Glucose 98 60 - 199 mg/dL CERNER MILLENNIUM Comment:Diabetes: >=200 mg/d L plus symptoms Blood Urea Nitrogen 12 8 - 18 mg/dL CERNER MILLENNIUM Creatinine 0.74 0.70 - 1.20 mg/dL CERNER MILLENNIUM Comment: Please note that the pediatric reference intervals supplied above were not validated at [facility]. Results from pediatric patients should be interpreted [...] In Lab Bridgett Reyes MD CHEMISTRY ORDERABLES CEREMANUEL MOTAIUM * (ABNORMAL) CBC (with Diff) (06/30/2012 2:58 [...] Lab Bridgett Reyes MD HEMATOLOGY ORDERABLE S TELLY SHERMAN documented in this encounter Visit Diagnoses Diagnosis Psoriasis- Primary Other psoriasis Inflamed epidermoid cyst of skin Sebaceous cyst Type 2 diabetes mellitus with hyperglycemia, with long-term current use of insulin Misha's thyroiditis Chronic lymphocytic thyroiditis Vitamin D deficiency Unspecified vitamin D deficiency Hypertriglyceridemia Pure hyperglyceridemia documented in this encounter Care Teams Samples And Repairs Preparer Relationship Specialty Start Date End Date Tristan Soliman DO [address] [place] [address] PCP - General 05/09/10 11/26/16 documented as of this encounter
--- OUTSIDE RECORDS SUMMARY | 2024-06-19 14:52 | XMS_ITS | Encounter Summary ---
[place] [address] Care Team Providers Care Community Relations Coordinator Name Role Phone Tristan Soliman Primary Care Provider Reason for Visit * Reason Onset Date Comments Other 09/22/2012 injection Encounter Details Date Type Department Care Team (Late st Contact Info) Description 09/22/2012 Telephone Dermatology at [facility] [address] [place] [phone] Tammi Carey MD Other (injection) Social History Tobacco Use Types [...] AM EST TH Visit (TeleHealth) [place] [address] Blade Martinez MD [facility] [address] 05/10/2025 4:30 PM EST Office Visit Dermatology at [place] [address] [facility] [place] [address] Andreas Richardson MD [address], MESS[address] [place] [address] documented as of this encounter Visit Diagnoses Not on filedocumented in this encounter Care Teams Community Relations Coordinator Relationship Specialty Start Date End Date Tristan Soliman DO [address] [facility] [place] [address] PCP - General 05/09/10 11/26/16 documented as of this encounter
--- OUTSIDE RECORDS SUMMARY | 2024-06-19 14:52 | XMS_ITS | Encounter Summary ---
[place] [address] Care Team Providers Care Veterinary Medical Officer Name Role Phone JourdanTristan DO Primary Care Provider [phone] Reason for Visit * Reason Comments Psoriasis Encounter Details Date Type Department Care Team (Late st Contact Info) Description 12/12/2010 8:15 AM EDT Office Visit Dermatology [address] [place] [address] [address] [place], [place] [address] Andreas Richardson MD [address], [place] [address] Psoriasis (Primary Dx) Social History Tobacco Use [...] needed. c. Patient will be leaving for [place] within the next week. d. RTC in three months. documented in this encounter Plan of Treatment Upcoming Encounters Date Type Department Care Team (Late st Contact Info) Description 06/23/2024 11:30 AM EST TH Visit (TeleHealth) [place] [address] [facility] [place] [address] 05/10/2025 4:30 PM EST Office Visit Dermatology at [place] [address] [place] [address] Andreas Richardson MD [address], [place] [address] documented as of this encounter Visit Diagnoses Diagnosis Psoriasis- Primary Other psoriasis Type 2 diabetes mellitus with hyperglycemia, with long-term current use of insulin Misha's thyroiditis Chronic lymphocytic thyroiditis Vitamin D deficiency Unspecified vitamin D deficiency Hypertriglyceridemia Pure hyperglyceridemia documented in this encounter Care Teams Veterinary Medical Officer Relationship Specialty Start Date End Date Tristan Soliman DO [address] [place] [address] PCP - General 05/09/10 11/26/16 documented as of this encounter
--- OUTSIDE RECORDS SUMMARY | 2024-06-19 14:52 | XMS_ITS | Encounter Summary ---
Author Organization [facility] [place] [address] Care Team Providers Care Multi Operation Forming Machine Setter Name Role Phone JourdanTristan batres Primary Care Provider Reason for Visit * Reason Comments Psoriasis Encounter Details Date Type Department Care Team (Late st Contact Info) Description 02/26/2013 8:15 AM EDT Follow-Up Dermatology at [facility] [address] [place] [address] Kell Young MD [facility] [place] [address] High risk medication use (Primary Dx); Psoriasis [...] Psoriasis Quantiferon Gold- Negative- 02/26 HPI Jesika Sprauge is a 42 y.o. year old female; [...] left upper arm (Patient supplied: Lot #: [id number] Exp: 10/2013) -Recommended patient alternate between Dovonex [...] documentation in this encounter. Kell Young MD Compressor Assembler of Dermatology, Department of Classifier OperatorCompressor Assemblerdry janitor (Dermatopathology) [facility] documented in this encounter Plan of Treatment Upcoming Encounters Date Type Department Care Team (Late st Contact Info) Description 06/23/2024 11:30 AM EST TH Visit (TeleHealth) [place] [address] Blade Martinez MD [facility] [place] [address] 05/10/2025 4:30 PM EST Office Visit Dermatology at [place] [address] [place] [address] Andreas Richardson MD [address], [place] [address] documented as of this encounter Procedures Procedure [...] Young MD HEMATOLOGY ORDERABL ES CERNER MILLENNIUM * Comprehensive metabolic panel (non-fasting) (02/26/2013 8:54 AM EDT) Glucose 106 60 - 199 mg/dL CERNER MILLENNIUM Comment:Diabetes: >=200 mg/d L plus symptoms Blood Urea Nitrogen 11 8 - 18 mg/dL CERNER MILLENNIUM Creatinine 0.77 0.70 - 1.20 mg/dL CERNER MILLENNIUM Comment: Please note that the pediatric reference intervals supplied above were not validated at [facility]. Results from pediatric patients [...] Lab Kell Young MD CHEMISTRY ORDERABLE S [facility] * (ABNORMAL) CBC (with Diff) (02/26/2013 8:54 [...] Platelet 222 145 - 370 x10(3)/mc L TELLY MOTAIUM RDW Standard Deviation 44.2 35.0 - 46.0 fL TELLY MOTAIUM RDW coefficient of variation 13.5 10.9 - 14.4 % TELLY MOTAIUM Mean Platelet Volume 11.6 9.0 - 12.0 fL TELLY SHERMAN Blood specimen (specimen) 02/26/2013 8:54 AM EDT 02/26/2013 1:09 PM EDT Narrative Resulting Agency Comment Spec In Lab Kell Young MD HEMATOLOGY ORDERABL ES TELLY SHERMAN documented in this encounter Visit Diagnoses Diagnosis High risk medication use- Primary Encounter for long-term (current) use of other medications Psoriasis Other psoriasis Type 2 diabetes mellitus with hyperglycemia, with long-term current use of insulin Misha's thyroiditis Chronic lymphocytic thyroiditis Vitamin D deficiency Unspecified vitamin D deficiency Hypertriglyceridemia Pure hyperglyceridemia documented in this encounter Care Teams Multi Operation Forming Machine Setter Relationship Specialty Start Date End Date Tristan Soliman DO [address] [place] [address] PCP - General 05/09/10 11/26/16 documented as of this encounter
--- OUTSIDE RECORDS SUMMARY | 2024-06-19 14:52 | XMS_ITS | Encounter Summary ---
Author Organization [facility] [place] [address] Care Team Providers Care Inside Parts Sales Name Role Phone Tristan Soliman Primary Care Provider [phone] Encounter Details Date Type Department Care Team (Late st Contact Info) Description 12/22/[address] [facility] [address] [place] [address] Danielle Ortega MD Social History Tobacco Use [...] AM EST TH Visit (TeleHealth) [place] [address] Blade Martinez MD [facility] [place] [address] 05/10/2025 4:30 PM EST Office Visit Dermatology at [place] [address] [place] [address] Andreas Richardson MD [address], [address] [place] [address] documented as of this encounter Visit Diagnoses Not on filedocumented in this encounter Care Teams Inside Parts Sales Relationship Specialty Start Date End Date Tristan Soliman DO [address] [facility] 1 [place] [address] PCP - General 05/09/10 11/26/16 documented as of this encounter
--- OUTSIDE RECORDS SUMMARY | 2024-06-19 14:52 | XMS_ITS | Encounter Summary ---
[place] [address] Care Team Providers Care Score Caller Name Role Phone JourdanTristan DO Primary Care Provider Reason for Visit * Reason Comments Psoriasis Encounter Details Date Type Department Care Team (Late st Contact Info) Description 03/13/2011 11:00 AM EDT Office Visit Dermatology [address] [place] [address] [address] [place], [place] [address] Andreas Richardson MD [address], [place] [address] Psoriasis (Primary Dx) Social History Tobacco Use [...] EST TH Visit (TeleHealth) [place] [address] Blade Martinez MD [facility] [place] [address] 05/10/2025 4:30 PM EST Office Visit Dermatology at [place] [address] [place] [address] Andreas Richardson MD [address], [place] [address] documented as of this encounter Visit Diagnoses Diagnosis Psoriasis- Primary Other psoriasis Type 2 diabetes mellitus with hyperglycemia, with long-term current use of insulin Misha's thyroiditis Chronic lymphocytic thyroiditis Vitamin D deficiency Unspecified vitamin D deficiency Hypertriglyceridemia Pure hyperglyceridemia documented in this encounter Care Teams Score Caller Relationship Specialty Start Date End Date Tristan Soliman DO [address] [place] [address] PCP - General 05/09/10 11/26/16 documented as of this encounter
--- OUTSIDE RECORDS SUMMARY | 2024-06-19 14:52 | XMS_ITS | Encounter Summary ---
Author Organization [facility] [place] [address] Care Team Providers Care Piece Meat Trimmer Name Role Phone Tristan Soliman Primary Care Provider Encounter Details Date Type Department Care Team (Late st Contact Info) Description 03/04/2013 Telephone Dermatology at [facility] [address] [place] [address] Kell Young MD [facility] [place] [address] Social History Tobacco Use Types Packs/Day Years [...] AM EST TH Visit (TeleHealth) [place] [address] Blade Martinez MD [facility] [place] [address] 05/10/2025 4:30 PM EST Office Visit Dermatology at [place] [address] [place] [address] Andreas Richardson MD [address], [place] [address] documented as of this encounter Visit Diagnoses Not on filedocumented in this encounter Care Teams Piece Meat Trimmer Relationship Specialty Start Date End Date Tristan Soliman DO [address] [facility] 1 [place] [address] PCP - General 05/09/10 11/26/16 documented as of this encounter
--- OUTSIDE RECORDS SUMMARY | 2024-06-19 14:52 | XMS_ITS | Encounter Summary ---
[place] [address] Care Team Providers Care Computer Scientist Name Role Phone JourdanTristan DO Primary Care Provider Reason for Visit * Reason Comments Psoriasis Encounter Details Date Type Department Care Team (Late st Contact Info) Description 04/03/2011 4:45 PM EDT Office Visit Dermatology [address] [place] [address] [address] [place], [place] [phone] Andreas Richardson MD [address], [place] [address] Psoriasis (Primary Dx) Social History Tobacco Use [...] AM EST TH Visit (TeleHealth) [place] [address] Blade Martinez MD [facility] [place] [address] 05/10/2025 4:30 PM EST Office Visit Dermatology at [place] [address] [facility] [place] [address] Andreas Richardson MD [address], [place] [address] documented as of this encounter Visit Diagnoses Diagnosis Psoriasis- Primary Other psoriasis Type 2 diabetes mellitus with hyperglycemia, with long-term current use of insulin Misha's thyroiditis Chronic lymphocytic thyroiditis Vitamin D deficiency Unspecified vitamin D deficiency Hypertriglyceridemia Pure hyperglyceridemia documented in this encounter Care Teams Computer Scientist Relationship Specialty Start Date End Date Tristan Soliman DO [address] [place] [address] PCP - General 05/09/10 11/26/16 documented as of this encounter
--- OUTSIDE RECORDS SUMMARY | 2024-06-19 14:52 | XMS_ITS | Encounter Summary ---
Author Organization [facility] [address] Care Team Providers Care Substance Abuse Specialist Name Role Phone Tristan Soliman Primary Care Provider [phone] Encounter Details Date Type Department Care Team (Late st Contact Info) Description 12/22/2012 Telephone Dermatology at [facility] [address] [place] [address] Danielle Ortega MD Social History Tobacco Use [...] 11:30 AM EST Visit (TeleHealth) [place] [address] Blade Martinez MD [facility] [place] [place] [address] 05/10/2025 4:30 PM EST Office Visit Dermatology at [place] [address] [place] [address] Andreas Richardson MD [address], [place] [address] documented as of this encounter Visit Diagnoses Not on filedocumented in this encounter Care Teams Substance Abuse Specialist Relationship Specialty Start Date End Date Tristan Soliman DO [address] [facility] 1 [place] [address] PCP - General 05/09/10 11/26/16 documented as of this encounter
--- OUTSIDE RECORDS SUMMARY | 2024-06-19 14:52 | XMS_ITS | Encounter Summary ---
[place] [address] Care Team Providers Care Manager Of Investigations Name Role Phone Tristan Soliman DO Primary Care Provider [phone] Reason for Visit * Reason Comments Psoriasis Encounter Details Date Type Department Care Team (Late st Contact Info) Description 09/26/2010 5:00 PM EDT Office Visit Dermatology [address] [place] [address] [address] [place], [place] [address] Andreas Richardson MD [address], [place] [address] Psoriasis (Primary Dx) Social History Tobacco Use [...] is going to be heading down to [place] soon and would like to try to [...] Enbrel injection instruction when she returns from [place] and once Prior Authorization has been completed. documented in this encounter Plan of Treatment Upcoming Encounters Date Type Department Care Team (Late st Contact Info) Description 06/23/2024 11:30 AM EST TH Visit (TeleHealth) [place] [address] Blade Martinez MD [facility] [place] [address] 05/10/2025 4:30 PM EST Office Visit Dermatology at [place] [address] [place] [address] Andreas Richardson MD [address] [facility], [place] [address] documented as of this encounter Visit Diagnoses Diagnosis Psoriasis- Primary Other psoriasis Type 2 diabetes mellitus with hyperglycemia, with long-term current use of insulin Misha's thyroiditis Chronic lymphocytic thyroiditis Vitamin D deficiency Unspecified vitamin D deficiency Hypertriglyceridemia Pure hyperglyceridemia documented in this encounter Care Teams Manager Of Investigations Relationship Specialty Start Date End Date Tristan Soliman DO [address] [place] [address] PCP - General 05/09/10 11/26/16 documented as of this encounter
--- OUTSIDE RECORDS SUMMARY | 2024-06-19 14:52 | XMS_ITS | Encounter Summary ---
Author Organization [facility] [place] [address] Care Team Providers Care Senior Human Resources Representative Name Role Phone JourdanTristan batres Primary Care Provider Reason for Visit * Reason Comments Psoriasis Encounter Details Date Type Department Care Team (Late st Contact Info) Description 01/26/2014 3:30 PM EDT Office Visit Dermatology at [place] [address] [facility] [place] [address] Andreas Richardson MD [address], MESSI A DERMATOLOGY [place], [place] [address] Psoriasis (Primary Dx) Social History Tobacco Use [...] Your Visit Your Care Instructions Psoriasis (say hyd-DN-tq-jefferson) is a long-term skin problem that causes [...] still damp. This seals in moisture. Use tfxi-mcs-germmkm products that your doctor suggests. These may [...] more? Visit our health information library at [email or web address] You can also view health information on [employer], your personal patient account. Log in or sign up today. Enter U759 in the search box to learn more about Psoriasis: After Your Visit. ?? [phone] MyDoc. Care instructions adapted under license by [facility]. This care instruction is for use with your licensed healthcare professional. If you have questions about a medical condition or this instruction, always ask your healthcare professional. MyDoc disclaims any warranty or liability for your use of this information. Content Version: 9.9.513933; Last Revised: January 20, 2013 documented in [...] AM EST TH Visit (TeleHealth) [place] [address] Blade Martinez MD [facility] [place] [address] 05/10/2025 4:30 PM EST Office Visit Dermatology at [place] [address] [place] [address] Andreas Richardson MD [address], [place] [address] documented as of this encounter Visit Diagnoses Diagnosis Psoriasis- Primary Other psoriasis Type 2 diabetes mellitus with hyperglycemia, with long-term current use of insulin Misha's thyroiditis Chronic lymphocytic thyroiditis Vitamin D deficiency Unspecified vitamin D deficiency Hypertriglyceridemia Pure hyperglyceridemia documented in this encounter Care Teams Senior Human Resources Representative Relationship Specialty Start Date End Date Tristan Soliman DO [address] [facility] 1 [place] [address] PCP - General 05/09/10 11/26/16 documented as of this encounter
--- OUTSIDE RECORDS SUMMARY | 2024-06-19 14:52 | XMS_ITS | Encounter Summary ---
Author Organization [facility] [place] [address] Care Team Providers Care Railroad Firer Name Role Phone JourdanTristan batres Primary Care Provider Encounter Details Date Type Department Care Team (Late st Contact Info) Description 03/06/2012 Orders [place] [address] Tammi Carey MD High risk medication use (Primary Dx) Social [...] AM EST TH Visit (TeleHealth) [place] [address] Blade Martinez MD [facility] [place] [address] 05/10/2025 4:30 PM EST Office Visit Dermatology at [place] [address] [facility] [place] [phone] Andreas Richardson MD [address] [facility], [place] [address] documented as of this encounter Visit Diagnoses Diagnosis High risk medication use- Primary Encounter for long-term (current) use of other medications Type 2 diabetes mellitus with hyperglycemia, with long-term current use of insulin Misha's thyroiditis Chronic lymphocytic thyroiditis Vitamin D deficiency Unspecified vitamin D deficiency Hypertriglyceridemia Pure hyperglyceridemia documented in this encounter Care Teams Railroad Firer Relationship Specialty Start Date End Date Tristan Soliman DO [address] [place] [address] PCP - General 05/09/10 11/26/16 documented as of this encounter
--- OUTSIDE RECORDS SUMMARY | 2024-06-19 14:52 | XMS_ITS | Encounter Summary ---
[facility] [address] Care Team Providers Care Automatic Quilling Machine Operator Name Role Phone Tristan Soliman DO Primary Care Provider Encounter Details Date Type Department Care Team (Late st Contact Info) Description 08/12/2013 Telephone Dermatology at [facility] [address] [place] [address] Tristan Mcmanus MD Social History [...] Heide Mchugh - 08/12/2013 10:11 AM EST [facility] PT Left a message for the pt to call back. She did not schedule an appointment to have her injection around May 2013; she does have medication here in the office that expires November 2013. [facility] has sent correspondence that they have made several attempts to contact her and have been unable to speak with her. Not sure if she wants to continue her treatment? Heide documented in this encounter Plan of Treatment Upcoming Encounters Date Type Department Care Team (Late st Contact Info) Description 06/23/2024 11:30 AM EST TH Visit (TeleHealth) [place] [address] [facility] [place] [address] 05/10/2025 4:30 PM EST Office Visit Dermatology at [place] [address] [facility] [place] [phone] Andreas Richardson MD [address] [facility] [place] [address] documented as of this encounter Visit Diagnoses Not on filedocumented in this encounter Care Teams Automatic Quilling Machine Operator Relationship Specialty Start Date End Date Tristan Soliman DO [address] [place] [address] PCP - General 05/09/10 11/26/16 documented as of this encounter
--- OUTSIDE RECORDS SUMMARY | 2024-06-19 14:52 | XMS_ITS | Encounter Summary ---
Author Organization [facility] [place] [address] Care Team Providers Care Leno Sewer Name Role Phone Tristan Soliman Primary Care Provider [phone] Encounter Details Date Type Department Care Team (Late st Contact Info) Description 12/29/2012 Telephone Dermatology at [facility] [address] [place] [address] Danielle Ortega MD Social History Tobacco Use [...] have any questions she can bereached at [phone]. Thanks, Case documented in this encounter Plan of Treatment Upcoming Encounters Date Type Department Care Team (Late st Contact Info) Description 06/23/2024 11:30 AM EST TH Visit (TeleHealth) [place] [address] Blade Martinez MD [facility] [place] [address] 05/10/2025 4:30 PM EST Office Visit Dermatology at [place] [address] [place] [address] Andreas Richardson MD [address] [facility] [address] [place] [address] documented as of this encounter Visit Diagnoses Not on filedocumented in this encounter Care Teams Leno Sewer Relationship Specialty Start Date End Date Tristan Soliman DO [address] [facility] [address] [place] [address] PCP - General 05/09/10 11/26/16 documented as of this encounter
--- OUTSIDE RECORDS SUMMARY | 2024-06-19 14:52 | XMS_ITS | Encounter Summary ---
Author Organization [facility] [place] [address] Care Team Providers Care Carpenter Assistant Name Role Phone Tristan Soliman DO Primary Care Provider [phone] Reason for Visit * Reason Comments Depression Encounter Details Date Type Department Care Team (Late st Contact Info) Description 05/21/2016 11:20 AM EST - 05/21/2016 4:29 PM [place] [address] Kyler Mackenzie MD [facility] [place] [address] Anxiety; Suicide ideation Discharge Disposition: Psych Hospital/Distinct [...] propranolol and lorazepam. She was seen at [facility] for similar symptoms yesterday and had a reportedly negative blood work and a alarm security or surveillance monitor placed, which she is wearing today. [...] Pt symptoms worsened and she went to [facility] er had a work up and [...] a bag with . Pt a/ox4. +cmsx4. +9uwodyoc2. =aromx4. Warm/pink/dry. Afebrile. LS clear. abd soft [...] that time. She was seen yesterday at [facility] where she she was placed on a alarm security or surveillance monitor, she states she presented there for [...] there is no ST elevation or depression, OH intervals 170 ms, QRS is narrow, QTC [...] EST EMERGENCY DEPARTMENT PSYCHIATRIC EVALUATION CPT CODE 16658; COLLEEN CODE 5000 The patient was seen at 1:55pm (time). Time Spent: 45 minutes Referral Source: Dr. Lizy Agrawal Additional Attendee(s) (identify by relationship to pt.): Clayton Erinm, Information source: Patient and her Clayton. Chief Complaint: 45 y.o. Female presents to [facility] Emergency Department with increased anxiety since 05/16/16 [...] Social History: Patient is and lives in [place], [place] with her . Her mother and adult son live in the [place], [place] area. PSYCHIATRIC / MENTAL STATUS EXAMINATION [...] had suicidal ideation or suicide attempt. Diagnosis: Moselle I: Depression, Panic Disorder Moselle II: Moselle III: Psoriasis Moselle IV: Moselle V: current GAF 25 Plan/Recommendations: Patient meets [...] AM EST TH Visit (TeleHealth) [place] [address] Blade Martinez MD [facility] [place] [address] 05/10/2025 4:30 PM EST Office Visit Dermatology at [address] [place] [address] Andreas Richardson MD [address] [facility] [place] [address] documented as of this encounter Procedures Procedure [...] (ABNORMAL) Urine culture (05/21/2016 1:42 PM EST) Urine Culture 1,000-9,000 cfu/ml Gram Positive organisms , probable contaminant(A ) [facility] Urine specimen obtained by clean catch procedure (specimen) 05/21/2016 1:42 PM EST 05/21/2016 2:35 PM EST Narrative Resulting Agency Comment Spec In Lab Teena Bernabe MD MICROBIOLOGY - GENER AL ORDERABLES [facility] [place] [address] * Rapid Drug Screen, Urine (05/21/2016 1:42 PM EST) JOJO Marijuana Metabolites Screen None Detected None Detected [facility] Comment: The marijuana metabolites screen detects the THC Metabolite (38-cxl-7-carboxy-delta 9-THC) at concentrations >50 ng/mL. Qualitative Drug screens are reported as ? None Detected? or ? Presumptive Positive? as the results are not routinely confirmed by highly-specific methods. As with any screen occasional false positive results from cross-reacting substances can occur. Not for Medico-Legal Purposes. Phencyclidine Screen, Urine None Detected None Detected [facility] Comment: The phencyclidine screen detects phencyclidine at concentrations >25 ng/mL. Qualitative Drug screens are reported as ? None Detected? or ? Presumptive Positive? as the results are not routinely confirmed by highly-specific methods. As with any screen occasional false positive results from cross-reacting substances can occur. Not for Medico-Legal Purposes. JOJO Cocaine Metabolites Screen None Detected None Detected [facility] Comment: The cocaine metabolites screen detects benzoylecgonine (Cocaine Metabolite) at concentrations >150 ng/mL. Qualitative Drug screens are reported as ? None Detected? or ? Presumptive Positive? as the results are not routinely confirmed by highly-specific methods. As with any screen occasional false positive results from cross-reacting substances can occur. Not for Medico-Legal Purposes. Methamphetamines Screen, Urine None Detected None Detected [facility] Comment: The methamphetamine screen detects d-methamphetamine at concentrations >500 ng/mL. Qualitative Drug screens are reported as ? None Detected? or ? Presumptive Positive? as the results are not routinely confirmed by highly-specific methods. As with any screen occasional false positive results from cross-reacting substances can occur. Not for Medico-Legal Purposes. JOJO Opiates Screen None Detected None Detected [facility] Comment: The opiates screen detects [...] JOJO Amphetamines Screen None Detected None Detected [facility] Comment: The amphetamine screen detects d-amphetamine at concentrations >500 ng/mL. Qualitative Drug screens are reported as ? None Detected? or ? Presumptive Positive? as the results are not routinely confirmed by highly-specific methods. As with any screen occasional false positive results from cross-reacting substances can occur. Not for Medico-Legal Purposes. JOJO Benzodiazepines Screen None Detected None Detected [facility] Comment: The benzodiazepines screen detects [...] JOJO Tricyclics Screen None Detected None Detected [facility] Comment: The tricyclics screen detects [...] JOJO Methadone Screen None Detected None Detected [facility] Comment: The methadone screen detects methadone at concentrations >200 ng/mL. Qualitative Drug screens are reported as ? None Detected? or ? Presumptive Positive? as the results are not routinely confirmed by highly-specific methods. As with any screen occasional false positive results from cross-reacting substances can occur. Not for Medico-Legal Purposes. JOJO Barbiturates Screen None Detected None Detected [facility] Comment: The barbiturates screen detects [...] JOJO Oxycodone Srceen None Detected None Detected [facility] Comment: The oxycodone screen detects oxycodone at concentrations >100 ng/mL and oxymorphone >250 ng/ml. Qualitative Drug screens are reported as ? None Detected? or ? Presumptive Positive? as the results are not routinely confirmed by highly-specific methods. As with any screen occasional false positive results from cross-reacting substances can occur. Not for Medico-Legal Purposes. Propoxyphene Screen, Urine None Detected None Detected [facility] Comment: The propoxyphene screen detects propoxyphene at concentrations >300 ng/mL. Qualitative Drug screens are reported as ? None Detected? or ? Presumptive Positive? as the results are not routinely confirmed by highly-specific methods. As with any screen occasional false positive results from cross-reacting substances can occur. Not for Medico-Legal Purposes. JOJO Buprenorphine Screen None Detected None Detected [facility] Comment: The buprenorphine screen detects buprenorphine at concentrations >10 ng/mL. Qualitative Drug screens are reported as ? None Detected? or ? Presumptive Positive? as the results are not routinely confirmed by highly-specific methods. As with any screen occasional false positive results from cross-reacting substances can occur. Not for Medico-Legal Purposes. JOJO Adulterants Screen None Detected None Detected [facility] Comment: No adulteration or dilution of this urine sample was detected. All urine samples submitted for urine drugs of abuse analysis are tested for Creatinine and pH and for the presence of oxidants, nitrites, chromate and aldehydes (glutaraldehyde). Urine specimen (specimen) 05/21/2016 1:42 PM EST 05/21/2016 2:09 PM EST Narrative Resulting Agency Comment Spec In Lab Teena Bernabe MD URINE ORDERABLES [facility] [place] [address] * (ABNORMAL) Urinalysis with reflex Culture (05/21/2016 1:42 PM EST) Glucose, Urine Dipstick Negative Negative mg/dL [facility] Protein, Urine Dipstick Negative Negative mg/dL [facility] Bilirubin, Urine Dipstick Negative Negative mg/dL [facility] Comment: Clinical correlation required for positive Urine Bilirubin results as false positive may occur with some drugs and drug related products. If a false positive is suspected a serum total bilirubin should be considered if clinically indicated. Urobilinogen, Urine Dipstick Normal Normal mg/dL [facility] pH, Urn (dipstick) 6.0 5.0 - 8.0 [facility] Blood, Urine Dipstick Large(A) Negative mg/dL [facility] Ketone, Urine Dipstick Negative Negative mg/dL [facility] Nitrite, Urine Dipstick Negative Negative [facility] Leukocytes, Urine Dipstick Large(A) Negative [facility] Appearance, Urine Dipstick Clear Clear [facility] Specific [place] Urine Automated 1.008 1.002 - 1.030 [facility] Color, Urine Dipstick Yellow Yellow [facility] RBC, Urine 5(H) 0 - 4 /HPF [facility] WBC, Urine 20(H) 0 - 5 /HPF [facility] Bacteria, Urine Rare(A) None /HPF [facility] Squamous Epithelial Cells, Urine 3 <=4 /HPF [facility] Amorphous Crystals, Urine Rare(A) None /HPF [facility] Reflex to Culture Yes [facility] Urine specimen obtained by clean catch procedure (specimen) 05/21/2016 1:42 PM EST 05/21/2016 2:09 PM EST Narrative Resulting Agency Comment Spec In Lab Teena Bernabe MD URINE ORDERABLES [facility] [place] [address] * EKG 12 Lead (05/21/2016 12:29 PM EST) Ventricular rate 73 BPM MUSE SYSTEM Atrial Rate 73 BPM MUSE SYSTEM P-R Interval 170 ms MUSE SYSTEM QRS Duration 84 ms MUSE SYSTEM Q-T Interval 400 ms MUSE SYSTEM QTC Calculated (Bezet) 440 ms MUSE SYSTEM Calculated P Moselle 24 degrees MUSE SYSTEM Calculated R Moselle 62 degrees MUSE SYSTEM Calculated T Moselle 29 degrees MUSE SYSTEM INTERPRETATION Normal sinus rhythm Normal ECG When compared with ECG of 21-MAY-1995 12:27, QT has lengthened Confirmed by MD MARGARITO, SIENA ([id number]) on 05/21/2016 3:04:55 PM MUSE SYSTEM 05/21/2016 12:2 9 PM EST 05/21/2016 3:04 PM EST Kyler Mackenzie MD ECG ORDERABLES [facility] * (ABNORMAL) Differential, Automated (05/21/2016 12:04 PM EST) Neutrophil % 75.8 % [facility] Neutrophil Absolute 9.43(H) 1.70 - 6.10 x10(3)/mc L [facility] Lymph % 17.8 % [facility] Lymphocytes Abs 2.2 0.9 - 3.2 x10(3)/mc L [facility] Monocyte % 4.9 % [facility] Monocyte Abs 0.6 0.3 - 0.9 x10(3)/mc L [facility] Eos % 0.5 % [facility] Eosinophils Abs 0.1 0.0 - 0.4 x10(3)/mc L [facility] Basophil % 0.5 % [facility] Baso Absolute 0.1 0.0 - 0.1 x10(3)/mc L [facility] Immature Gran % 0.50 % [facility] Comment: Immature granulocytes(IG's)percentage and absolute count will include metamyelocytes, myelocytes, and promyelocytes. Blood smears from CBCs yielding IG's will be scanned manually for concordance. If this scan disagrees with the automated IG or if promyelocytes are noted, a manual differential will be performed. Immature Gran Absolute 0.06(H) 0.00 - 0.04 x10(3)/mc L [facility] Blood specimen (specimen) 05/21/2016 12:04 PM EST 05/21/2016 12:09 PM EST Narrative Resulting Agency Comment Spec In Lab Kyler Mackenzie MD HEMATOLOGY ORDERAB LES [facility] [place] [address] * (ABNORMAL) Hemogram (05/21/2016 12:04 PM EST) White Blood Cell 12.4(H) 4.0 - 9.5 x10(3)/mc L [facility] Red Blood Cell 5.17 4.00 - 5.21 x10(6)/mc L [facility] Hemoglobin 15.3 11.7 - 15.5 gm/dL [facility] Hematocrit 44.6 35.7 - 45.8 % [facility] Mean Cell Volume 86.3 82.6 - 94.4 fL [facility] Mean Cell Hemoglobin 29.6 27.1 - 32.0 pg [facility] Mean Cell Hemoglobin Concentration 34.3 31.7 - 35.0 gm/dL [facility] Platelet 390(H) 145 - 357 x10(3)/mc L [facility] RDW Standard Deviation 39.6 37.0 - 46.0 fL [facility] RDW coefficient of variation 12.4 11.5 - 14.1 % [facility] Mean Platelet Volume 11.0 7.6 - 12.9 fL [facility] NRBC% auto 0.0 % [facility] NRBC Absolute 0.000 0.000 - 0.000 x10(3)/mc L [facility] Blood specimen (specimen) 05/21/2016 12:04 PM EST 05/21/2016 12:09 PM EST Narrative Resulting Agency Comment Spec In Lab Kyler Mackenzie MD HEMATOLOGY ORDERAB LES Performing Organization Address [facility] Co de Phone Number [facility] [place] [address] * TSH (05/21/2016 12:04 PM EST) Pathologist [facility] Thyroid Stimulating Hormone 2.79 0.27 - 4.20 mcIU/mL [facility] Blood specimen (specimen) 05/21/2016 12:04 PM EST 05/21/2016 12:09 PM EST Narrative Resulting Agency Comment Spec In Lab Kyler Mackenzie MD CHEMISTRY ORDERABL ES Performing Organization Address [facility] de Phone Number [facility] [place] [address] * (ABNORMAL) Basic Metabolic Panel (non-fasting) (05/21/2016 12:04 PM EST) [facility] Glucose 116 65 - 199 mg/dL [facility] Comment:Diabetes: >=200 mg/d L plus symptoms Blood Urea Nitrogen 9 8 - 18 mg/dL [facility] Creatinine 0.86 0.70 - 1.20 mg/dL [facility] Comment: Please note that the pediatric reference intervals supplied above were not validated at [facility]. Results from pediatric patients should be interpreted in conjunction to the patient's age, height and muscle mass. Sodium 139 135 - 145 mmol/L [facility] Potassium 4.3 3.5 - 5.0 mmol/L [facility] Comment: Please note: ??Patients with WBC >100,000 may have falsely elevated Potassium levels. ??For accurate Potassium quantification in these patients send serum separator tube (gold top) for subsequent determinations. ??Contact the Clinical Chemistry Laboratory if there are any questions. Chloride 100 98 - 107 mmol/L [facility] Carbon Dioxide 22 22 - 31 mmol/L [facility] Anion Gap 17(H) 5 - 15 mmol/L [facility] Calcium 9.5 8.5 - 10.5 mg/dL [facility] Est Glomerular Filtration Rate >60 >=60 [facility] Comment: This estimated GFR (eGFR) [...] the following links into your internet browser. [email or web address] Blood specimen (specimen) 05/21/2016 12:04 PM EST 05/21/2016 12:09 PM EST Narrative Resulting Agency Comment Spec In Lab Kyler Mackenzie MD CHEMISTRY ORDERABL ES [facility] [place] [address] * (ABNORMAL) Hepatic Function Panel (05/21/2016 12:04 PM EST) Protein, Total 8.1(H) 6.1 - 8.0 gm/dL [facility] Albumin 4.8 3.2 - 5.2 gm/dL [facility] Aspartate Aminotransferase 43(H) 0 - 30 unit/L [facility] Alanine Aminotransferase 52(H) 0 - 30 unit/L [facility] Alkaline Phosphatase 103 40 - 104 unit/L [facility] Bilirubin, Total 0.4 0.2 - 1.3 mg/dL [facility] Bilirubin, Direct 0.1 0.0 - 0.3 mg/dL [facility] Blood specimen (specimen) 05/21/2016 12:04 PM EST 05/21/2016 12:09 PM EST Narrative Resulting Agency Comment Spec In Lab Kyler Mackenzie MD CHEMISTRY ORDERABL ES [facility] [place] [address] * CT Head wo Contrast (Generic) (05/21/2016 [...] Anxiety state, unspecified Suicide ideation Suicidal ideation Type 2 diabetes mellitus with hyperglycemia, with long-term current use of insulin Misha's thyroiditis Chronic lymphocytic thyroiditis Vitamin D deficiency Unspecified vitamin D deficiency Hypertriglyceridemia Pure hyperglyceridemia documented in this encounter Care Teams Carpenter Assistant Relationship Specialty Start Date End Date Tristan Soliman DO [address] [place] [address] PCP - General 05/09/10 11/26/16 documented as of this encounter
--- OUTSIDE RECORDS SUMMARY | 2024-06-19 14:52 | XMS_ITS | Encounter Summary ---
[facility] Organization [facility] [place] [address] Care Team Providers Care Learning And Development Associate Name Role Phone JourdanTristan batres Primary Care Provider [phone] Reason for Visit * Reason Comments Psoriasis Follow-up Encounter Details Date Type Department Care Team (Late st Contact Info) Description 06/16/2015 3:30 PM EST Office Visit Dermatology at [place] [address] [facility] [place] [phone] Andreas Richardson MD [address], MESSI A DERMATOLOGY [place], [place] [id number] Psoriasis Social History Tobacco Use Types Packs/Day Years Used Date Smoking Tobacco: Former Sex and Gender Information Value Date Recorded Sex Assigned at Not on file Gender Identity Not on file Sexual Orientation Not on file documented as of this encounter Patient Instructions * Patient Instructions* Ivett Mcghee LPN - 06/16/2015 3:45 PM EST Images from the original note were not included. [facility] Psoriasis: After Your Visit Your Care Instructions Psoriasis (say boc-AF-qc-jefferson) is a long-term skin problem that causes [...] still damp. This seals in moisture. Use ebbu-mdb-imzyjrp products that your doctor suggests. These may [...] more? Visit our health information library at [email or web address] You can also view health information on Alector, your personal patient account. Log in or sign up today. Enter U759 in the search box to learn more about Psoriasis: After Your Visit. ?? [id number] [employer]ucky Box. Care instructions adapted under license by [facility]. This care instruction is for use with your licensed healthcare professional. If you have questions about a medical condition or this instruction, always ask your healthcare professional. [employer] disclaims any warranty or liability for your use of this information. Content Version: 10.4.184859; Current as of: August 26, 2013 documented [...] for Stelara will be faxed to her [employer] pharmaceutical plan so that she can continue q.three month injections. b. Return to clinic in another six months for repeat check. COPY: Tristan Soliman D.O. documented in this encounter Plan of Treatment Upcoming Encounters Date Type Department Care Team (Late st Contact Info) Description 06/23/2024 11:30 AM EST TH Visit (TeleHealth) Endocrinology at [facility] [place] [address] Blade Martinez MD [facility] [place] [address] 05/10/2025 4:30 PM EST Office Visit Dermatology at [address] [phone] Andreas Richardson MD [address], [place] [address] documented as of this encounter Visit Diagnoses Diagnosis Psoriasis Other psoriasis Type 2 diabetes mellitus with hyperglycemia, with long-term current use of insulin Misha's thyroiditis Chronic lymphocytic thyroiditis Vitamin D deficiency Unspecified vitamin D deficiency Hypertriglyceridemia Pure hyperglyceridemia documented in this encounter Care Teams Learning And Development Associate Relationship Specialty Start Date End Date Tristan Soliman DO [address] [place] [address] [address] [facility] 1 [place] [address] PCP - General 05/09/10 11/26/16 documented as of this encounter
--- OUTSIDE RECORDS SUMMARY | 2024-06-19 14:52 | XMS_ITS | Encounter Summary ---
[place] [address] Care Team Providers Care Debt Collector Name Role Phone JourdanTristan DO Primary Care Provider Reason for Visit * Reason Comments Psoriasis Encounter Details Date Type Department Care Team (Late st Contact Info) Description 08/01/2011 4:15 PM EST Office Visit Dermatology [address] [place] [address] [address] [place], [place] [phone] Andreas Richardson MD [address], [place] [address] Psoriasis (Primary Dx) Social History Tobacco Use [...] subcutaneously q. o. week. [facility] [...] AM EST TH Visit (TeleHealth) [place] [address] Blade Martinez MD [facility] [place] [address] 05/10/2025 4:30 PM EST Office Visit Dermatology at [address] [place] [phone] Andreas Richardson MD [address] [facility], [place] [address] documented as of this encounter Visit Diagnoses Diagnosis Psoriasis- Primary Other psoriasis Type 2 diabetes mellitus with hyperglycemia, with long-term current use of insulin Misha's thyroiditis Chronic lymphocytic thyroiditis Vitamin D deficiency Unspecified vitamin D deficiency Hypertriglyceridemia Pure hyperglyceridemia documented in this encounter Care Teams Debt Collector Relationship Specialty Start Date End Date Tristan Soliman DO [address] [place] [address] PCP - General 05/09/10 11/26/16 documented as of this encounter
--- OUTSIDE RECORDS SUMMARY | 2024-06-19 14:52 | XMS_ITS | Encounter Summary ---
Author Organization [facility] [place] [address] Care Team Providers Care Sports Editor Name Role Phone Tristan Soliman Primary Care Provider Encounter Details Date Type Department Care Team (Late st Contact Info) Description 06/22/[address] [facility] [address] [place] [phone] Kell Young MD [facility] [place] [address] Social History Tobacco Use Types Packs/Day Years [...] AM EST TH Visit (TeleHealth) [place] [address] Blade Martinez MD [facility] [place] [address] 05/10/2025 4:30 PM EST Office Visit Dermatology at [place] [address] [place] [address] Andreas Richardson MD [address], [place] [address] documented as of this encounter Visit Diagnoses Not on filedocumented in this encounter Care Teams Sports Editor Relationship Specialty Start Date End Date Tristan Soliman DO [address] [facility] 1 [place] [address] PCP - General 05/09/10 11/26/16 documented as of this encounter
--- OUTSIDE RECORDS SUMMARY | 2024-06-19 14:52 | XMS_ITS | Encounter Summary ---
[place] [address] Care Team Providers Care Crop Consultant Name Role Phone Jourdan, Tristan OLIVAREZ Primary Care Provider [phone] Reason for Visit * Reason Comments Follow-up Encounter Details Date Type Department Care Team (Late st Contact Info) Description 09/30/2012 10:30 AM EDT Follow-Up Dermatology at [address] [address] Danielle Ortega MD Psoriasis (Primary Dx); High risk medication use [...] an established patient, last seen by Dr. Carye 06/30/12; new to myself. Present alone today. HPI: Ms. Sprague presents for her 3rd Stelara injection. Patient states that she was clear after her first 2 injections but she recently went to [place] 08/22-08/29 and has recently flared on her [...] by MD today (Patient supplied: Lot #: [id number] Exp: 04/2013) -Labs today: CBC, CMP -Rx [...] reviewed, changed, edited and signed by staff android software engineer: Danielle White MD Section of Dermatology [facility] documented in this encounter Plan of Treatment Upcoming Encounters Date Type Department Care Team (Late st Contact Info) Description 06/23/2024 11:30 AM EST TH Visit (TeleHealth) [place] [address] Blade Martinez MD [facility] [place] [address] 05/10/2025 4:30 PM EST Office Visit Dermatology at [address] [place] [address] Andreas Richardson MD [address], [place] [address] documented as of this encounter Procedures Procedure [...] EDT Danielle Ortega MD HEMATOLOGY ORDERABLE S CERNER MILLENNIUM * (ABNORMAL) Comprehensive metabolic panel (non-fasting) (09/30/2012 10:56 AM EDT) Glucose 109 60 - 199 mg/dL CERNER MILLENNIUM Comment:Diabetes: >=200 mg/d L plus symptoms Blood Urea Nitrogen 10 8 - 18 mg/dL CERNER MILLENNIUM Creatinine 0.61(L) 0.70 - 1.20 mg/dL CERNER MILLENNIUM Comment: Please note that the pediatric reference intervals supplied above were not validated at [facility] [place] [place]. Results from pediatric patients should be interpreted [...] In Lab Danielle Ortega MD CHEMISTRY ORDERABLES [facility] * (ABNORMAL) CBC (with Diff) (09/30/2012 [...] 12.0 fL CERNER MILLENNIUM Blood specimen (specimen) 09/30/2012 10:56 [...] hyperglyceridemia documented in this encounter Care Teams Crop Consultant Relationship Specialty Start Date End Date Tristan Soliman DO [address] [place] [address] PCP - General 05/09/10 11/26/16 documented as of this encounter
--- OUTSIDE RECORDS SUMMARY | 2024-06-19 14:52 | XMS_ITS | Encounter Summary ---
Author Organization [facility] [place] [address] Care Team Providers Care Enrichment Director Name Role Phone Tristan Soliman DO Primary Care Provider Reason for Visit * Reason Comments Psoriasis Encounter Details Date Type Department Care Team (Late st Contact Info) Description 12/07/2014 4:45 PM EDT Office Visit Dermatology at [address] [phone] Andreas Richardson MD [address] [facility], [place] DER[place]OLOG[place], [place] [address] Psoriasis Discharge Disposition: Home Social History Tobacco [...] recent trial of Stelara, September through November 2014Finn Canchola follows up, and unfortunately her psoriasis continues [...] AM EST TH Visit (TeleHealth) [place] [address] Blade Martinez MD [facility] [place] [address] 05/10/2025 4:30 PM EST Office Visit Dermatology at [address] [place] [address] Andreas Richardson MD [address], [place] [address] documented as of this encounter Visit Diagnoses Diagnosis Psoriasis Other psoriasis Type 2 diabetes mellitus with hyperglycemia, with long-term current use of insulin Misha's thyroiditis Chronic lymphocytic thyroiditis Vitamin D deficiency Unspecified vitamin D deficiency Hypertriglyceridemia Pure hyperglyceridemia documented in this encounter Care Teams Enrichment Director Relationship Specialty Start Date End Date Tristan Soliman DO [address] [facility] 1 [place] [address] PCP - General 05/09/10 11/26/16 documented as of this encounter
--- OUTSIDE RECORDS SUMMARY | 2024-06-19 14:52 | XMS_ITS | Encounter Summary ---
Author Organization [facility] [place] [address] Care Team Providers Care Generation Technologist Name Role Phone Tristan Soliman Primary Care Provider [phone] Encounter Details Date Type Department Care Team (Late st Contact Info) Description 12/22/2012 Telephone Dermatology at [facility] [address] [place] [phone] Danielle Ortega MD Social History Tobacco Use Types Packs/Day Years Used Date Smoking Tobacco: Former Sex and Gender Information Value Date Recorded Sex Assigned at Not on file Gender Identity Not on file Sexual Orientation Not on file documented as of this encounter Miscellaneous Notes * Telephone Encounter - Logan Powers - 12/22/2012 11:04 AM EDT Patient called, she spoke with [facility], her insurance has changed and therefore, they areworking on verifying coverage to determine if they can continue to supply drug. She will follow up once she hears from [employer]. documented in this encounter Plan of Treatment Upcoming Encounters Date Type Department Care Team (Late st Contact Info) Description 06/23/2024 11:30 AM EST TH Visit (TeleHealth) [place] [address] Blade Martinez MD [facility] [place] [address] 05/10/2025 4:30 PM EST Office Visit Dermatology at [place] [address] [place] [address] Andreas Richardson MD [address] [facility] [address] [address] [address], [place] [address] documented as of this encounter Visit Diagnoses Not on filedocumented in this encounter Care Teams Generation Technologist Relationship Specialty Start Date End Date Tristan Soliman DO [address] [facility] 1 [place] [address] PCP - General 05/09/10 11/26/16 documented as of this encounter
--- OUTSIDE RECORDS SUMMARY | 2024-06-19 14:52 | XMS_ITS | Encounter Summary ---
Author [facility] [place] [address] Care Team Providers Care Rotary Soil Stabilizer Name Role Phone Jourdan, Tristan OLIVAREZ Primary Care Provider Reason for Visit * Reason Comments Psoriasis Encounter Details Date Type Department Care Team (Late st Contact Info) Description 02/22/2015 4:45 PM EDT Office Visit Dermatology at [place] [address] [facility] [place] [address] Andreas Richardson MD [address], [place] [address] Psoriasis Discharge Disposition: Home Social History Tobacco [...] from the original note were not included. [facility] Psoriasis: After Your Visit Your Care Instructions Psoriasis (say lyb-UD-az-jefferson) is a long-term skin problem that causes [...] still damp. This seals in moisture. Use wpuu-xlq-aliunow products that your doctor suggests. These may [...] more? Visit our health information library at [email or web address] You can also view health information on My Healthy World, your personal patient account. Log in or sign up today. Enter U759 in the search box to learn more about Psoriasis: After Your Visit. ?? [id number] [employer]ent[employer]. Care instructions adapted under license by [facility]. This care instruction is for use with your licensed healthcare professional. If you have questions about a medical condition or this instruction, always ask your healthcare professional. [employer] disclaims any warranty or liability for your use of this information. Content Version: 10.4.828780; Current as of: August 26, 2013 documented [...] this is yet on the formulary for [facility]. e. The patient has been online with a Facebook chat page with other psoriasis patients and is thankful that her psoriasis, at least, is not as pruritic and symptomatic as others are experiencing. f. Initiate Stelara, and then follow up at the clinic in three months. COPY: Tristan Soliman D.O. documented in this encounter Plan of Treatment Upcoming Encounters Date Type Department Care Team (Late st Contact Info) Description 06/23/2024 11:30 AM EST TH Visit (TeleHealth) [place] [address] Blade Martinez MD [facility] [place] [address] 05/10/2025 4:30 PM EST Office Visit Dermatology at [place] [address] [place] [address] Andreas Richardson MD [address], [place] [address] documented as of this encounter Visit Diagnoses Diagnosis Psoriasis Other psoriasis Type 2 diabetes mellitus with hyperglycemia, with long-term current use of insulin Misha's thyroiditis Chronic lymphocytic thyroiditis Vitamin D deficiency Unspecified vitamin D deficiency Hypertriglyceridemia Pure hyperglyceridemia documented in this encounter Care Teams Rotary Soil Stabilizer Relationship Specialty Start Date End Date Tristan Soliman DO [address] [facility] 1 [place] [address] PCP - General 05/09/10 11/26/16 documented as of this encounter
--- OUTSIDE RECORDS SUMMARY | 2024-06-19 14:52 | XMS_ITS | Encounter Summary ---
Author Organization [facility] [place] [address] Care Team Providers Care Access Control Officer Name Role Phone JourdanTristan abtres Primary Care Provider Reason for Visit * Reason Comments Psoriasis Encounter Details Date Type Department Care Team (Late st Contact Info) Description 02/21/2012 9:40 AM EDT [place] [address] Tammi Carey MD High risk medication use (Primary Dx); Psoriasis [...] Tonja Kim LPN - 03/06/2012 9:23 AM EDTCarrington Note: Order for [facility] mail to patient today . fax number [...] concerns. Tammi Carey MD Resident in Dermatology [facility] Patient seen and evaluated with staff manufacturing project manager: Amy Connor MD Section of Dermatology [facility] documented in this encounter Plan of Treatment Upcoming Encounters Date Type Department Care Team (Late st Contact Info) Description 06/23/2024 11:30 AM EST TH Visit (TeleHealth) [place] [address] Blade Martinez MD [facility] [place] [address] 05/10/2025 4:30 PM EST Office Visit Dermatology at [place] [address] [facility] [place] [address] Andreas Richardson MD [address] [facility], [place] [address] documented as of this encounter Procedures Procedure [...] * QuantiFERON-TB Gold (02/21/2012 10:15 AM EDT) [facility] Quantiferon-TB Gold Negative Negative [facility] Comment: Nil (IU/mL)= 0.14 TB Ag minus [...] 10:37 AM EDT Amy Connor MD HEMATOLOGY ISAAC KIM CERNER MILLENNIUM * (ABNORMAL) Comprehensive metabolic panel (non-fasting) (02/21/2012 10:14 AM EDT) Glucose 90 60 - 199 mg/dL CERNER MILLENNIUM Comment:Diabetes: >=200 mg/d L plus symptoms Blood Urea Nitrogen 14 8 - 18 mg/dL CERNER MILLENNIUM Creatinine 0.73 0.70 - 1.20 mg/dL CERNER MILLENNIUM Comment: Please note that the pediatric reference intervals supplied above were not validated at [facility]. Results from pediatric patients should be interpreted [...] Lab Amy Connor MD CHEMISTRY ORDER AKBAR Performing Organization Address City/[facility] Co de Phone Number CEREMANUEL DUQUEENNIUM * (ABNORMAL) CBC (with Diff) (02/21/2012 10:14 [...] Spec In Lab Amy Connor MD HEMATOLOGY ORDE RABLES Performing Organization Address [facility] Co de Phone Number TELLY SHERMAN documented in this encounter Visit Diagnoses Diagnosis High risk medication use- Primary Encounter for long-term (current) use of other medications Psoriasis Other psoriasis Type 2 diabetes mellitus with hyperglycemia, with long-term current use of insulin Misha's thyroiditis Chronic lymphocytic thyroiditis Vitamin D deficiency Unspecified vitamin D deficiency Hypertriglyceridemia Pure hyperglyceridemia documented in this encounter Care Teams Access Control Officer Relationship Specialty Start Date End Date Tristan Soliman DO [address] [place] [address] PCP - General 05/09/10 11/26/16 documented as of this encounter
[2024-06-23 17:54] LABS: TSH (W/Ref FT4) 2.59 uIU/mL (0.36-3.74)
== END 2024-06-19 14:44 | disposition home or self-care (01) ==
LOC: LOS 14:44
PROVIDERS: Internal Medicine Endocrinology, Diabetes & Metabolism; PCP Family Medicine; Visit Provider Family Medicine
DX: E78.5 Hyperlipidemia, unspecified (principal); E11.9 Type 2 diabetes mellitus without complications
CPT/HCPCS: 36415; 80053; 80061; 83036; 84443

== ENCOUNTER 2024-09-22 02:18 | Outpatient (CLI) | payer OTHER, SELFPAY ==
[2024-09-22 13:19] LABS: Hemoglobin A1C 7.6 % (<5.7)
[2024-09-22 13:24] LABS: ALT 42 U/L (14-59); Anion Gap 11.8 mmol/L (3-11); BUN 16 mg/dL (7-18); CO2 26.2 mmol/L (21.0-32.0); CREATININE 0.7 mg/dL (0.55-1.02); Calcium 9.3 mg/dL (8.5-10.1); Chloride 104 mmol/L (98-107); Cholesterol 272 mg/dL (<200); Estimated GFR 104.65 (mL/min/1.73m2); Glucose 172 mg/dL (74-106); HDL Cholesterol 36 mg/dL (>or=50); Potassium 4.5 mmol/L (3.5-5.1); Sodium 142 mmol/L (136-145); TSH (W/Ref FT4) 2.08 uIU/mL (0.36-3.74); Triglyceride 532 mg/dL (<150); Vitamin D 25 Total 32 ng/mL (30-100)
[2024-09-22 13:36] LABS: LDL CHOLESTEROL 154 mg/dL (<100)
== END 2024-09-22 02:19 | disposition home or self-care (01) ==
LOC: LOS 02:19
PROVIDERS: PCP Family Medicine; Visit Provider Internal Medicine Endocrinology, Diabetes & Metabolism
DX: E11.65 Type 2 diabetes mellitus with hyperglycemia (principal); E06.3 Autoimmune thyroiditis; E55.9 Vitamin D deficiency, unspecified; E78.1 Pure hyperglyceridemia; E78.5 Hyperlipidemia, unspecified; Z79.4 Long term (current) use of insulin
CPT/HCPCS: 36415; 80048; 80061; 82306; 83721; 83036; 84443; 84460

== ENCOUNTER 2024-12-22 02:59 | Outpatient (CLI) | payer OTHER, SELFPAY ==
[2024-12-22 12:57] LABS: Hemoglobin A1C 7.3 % (<5.7)
[2024-12-22 13:08] LABS: Calculated LDL 40 mg/dL (<100); Cholesterol 116 mg/dL (<200); HDL Cholesterol 28 mg/dL (>or=50); TSH (W/Ref FT4) 1.88 uIU/mL (0.36-3.74); Triglyceride 244 mg/dL (<150)
== END 2024-12-22 03:00 | disposition home or self-care (01) ==
LOC: LOS 02:59
PROVIDERS: PCP Family Medicine; Visit Provider Internal Medicine Endocrinology, Diabetes & Metabolism
DX: E11.65 Type 2 diabetes mellitus with hyperglycemia (principal); Z79.4 Long term (current) use of insulin; E06.3 Autoimmune thyroiditis; E55.9 Vitamin D deficiency, unspecified; E78.1 Pure hyperglyceridemia
CPT/HCPCS: 36415; 80061; 83036; 84443

== ENCOUNTER 2025-02-10 11:58 | Outpatient (CLI) | payer OTHER, SELFPAY ==
--- NOTE | 2025-02-10 17:26 | DI.MAMMO_ITS ---
Exam(s) MAMMO SCREENING EXAM: MAMMO SCREENING CLINICAL HISTORY: screening TECHNIQUE: Bilateral full field digital CC and MLO mammographic images were obtained with 3D tomosynthesis and utilizing computer aided detection (CAD). COMPARISON: Comparison is made with prior examinations. FINDINGS: Masses/Architectural Distortion: No suspicious masses or areas of architectural distortion are present. Microcalcifications: No suspicious pleomorphic-type are seen. Skin Thickening/Nipple Retraction: None. IMPRESSION: 1. No significant interval change with no specific features of malignancy noted. 2. Unless there is more urgent need, screening mammography is recommended, as per [place] [employer] guidelines. BI-RADS Category 1 - Negative Breast Density - Category B - There are scattered areas of fibroglandular density. Breast density Category C or D implies that the patient has dense breast tissue. Dense breast tissue can make it harder to find cancer on a mammogram. Dense breast tissue is also associated with an increased risk of breast cancer. This information about the result of the mammogram report was provided to the patient to raise their awareness. Use this report when you speak with the patient about their risks for breast cancer, which includes their family history. At that time, you may recommend additional screening tests (Ultrasound or MRI) as these tests may add significant information. A negative radiographic report should not delay biopsy if a dominant or clinically suspicious mass is present. Up to ten percent of cancers are not identified on mammography. A negative report may reinforce clinical impression. Adenosis and dense breasts may obscure an underlying neoplasm. False positive reports average 6 to 10%. Patient will receive a letter notifying them of these results.
== END 2025-02-10 12:18 ==
LOC: DI 11:58
PROVIDERS: PCP Family Medicine; Visit Provider Obstetrics & Gynecology
DX: Z12.31 Encounter for screening mammogram for malignant neoplasm of breast (principal); R92.323 Mammographic fibroglandular density, bilateral breasts
CPT/HCPCS: 77063; 77067

== ENCOUNTER 2025-06-07 12:39 | Outpatient (REF) | payer OTHER, SELFPAY | END 2025-06-07 12:40 | disposition home or self-care (01) | LOC: LBN 12:39 | PROVIDERS: PCP Family Medicine; Visit Provider Nurse Practitioner Family | DX: J02.9 Acute pharyngitis, unspecified (principal) | CPT/HCPCS: 87070 ==